=== PATIENT | female | born 1945 | race Two or more races ===

== ENCOUNTER 2025-01-12 20:44 | Inpatient (IN) | payer MEDICARE, MEDICAID ==
[~2025-01-12] VITALS: Ht 157.5 cm; Wt 71.5 kg
--- NOTE | 2025-01-12 21:28 | ED.PDOC ---
GI ASSESSMENT HPI Comments 80 year old female presents to the ED with a chief complaint of abdominal pain onset 4 days. Patient states she has been experiencing RLQ pain radiates to her back for the past 4 days as well as sweats, pain worsens after eating. Today, she noticed pain worsened, rates pain 9/10. PMHx HTN, DM. Denies nausea, vomiting, diarrhea, chest pain, shortness of breath, dizziness, headache, dysuria, hematuria, fever, chills. No other symptoms or modifying factors present at this time. Chief Complaint: Abdominal Pain Time Seen by MD: 21:20 Reviewed Notes: Medications, Allergies Allergies: Coded Allergies: NO KNOWN ALLERGIES (Unverified , 01/12/25) Information Source: Patient Mode of Arrival: Wheelchair Timing: Days Duration: Since onset Prehospital treatment: None Quality: Sharp Vomitus: None Severity: Moderate Recent: None Recent Hx of: None Pain Location: RLQ Modifying Factors: Nothing Associated sign and symptoms: Abdominal Pain Past Medical History PAST MEDICAL HISTORY: DM, HTN Surgical History: Denies all surgeries COOPERATIVE EXTENSION AGENT History: No Pertinent COOPERATIVE EXTENSION AGENT History Family History Family History: Reviewed,noncontributory to illness, No family hx of Cancer, No family hx of DM, No family hx of Heart annie, No family hx of HTN, No family hx ofKidney annie, No family hx of Liver annie, No family hx of Lung annie, No family hx of Stroke Social History Smoker: Non-Smoker Alcohol: Denies ETOH Use Drugs: Denies Drug Use Lives In: Home Constitutional: reports: sweats; denies: chills, diaphoresis, fatigue, fever, malaise, weakness, others EENTM: denies: blurred vision, double vision, ear bleeding, ear discharge, ear drainage, ear pain, ear ringing, eye pain, eye redness, hearing loss, mouth pain, mouth swelling, nasal discharge, nose bleeding, nose congestion, nose pain, photophobia, tearing, throat pain, throat swelling, voice changes, others Respiratory: denies: cough, hemoptysis, orthopnea, SOB at rest, shortness of breath, SOB with excertion, stridor, wheezing, others Cardiovascular: denies: chest pain, dizzy spells, diaphoresis, Dyspnea on exertion, edema, irregular heart beat, left arm pain, lightheadedness, palpitations, PND, syncope, others Gastrointestinal: reports: abdominal pain; denies: abdomen distended, blood streaked bowels, constipated, diarrhea, dysphagia, difficulty swallowing, hematemesis, melena, nausea, poor appetite, poor fluid intake, rectal bleeding, rectal pain, vomiting, others Genitourinary: denies: abnormal vagina bleeding, burning, dyspareunia, dysuria, flank pain, frequency, hematuria, incontinence, pain, , vagina discharge, urgency, others Neurological: denies: dizziness, fainting, headache, left sided numbness, left sided weakness, numbness, paresthesia, pre-existing deficit, right sided numbness, right sided weakness, seizure, speech problems, tingling, tremors, weakness, others Musculoskeletal: denies: back pain, gout, joint pain, joint swelling, muscle pain, muscle stiffness, neck pain, others Integumetry: denies: bruises, change in color, change in hair/nails, dryness, laceration, lesions, lumps, rash, wounds, others Allergic/Immunocompromised: denies: Difficulty Healing, Frequent Infections, Hives, Itching, others Hematologic/Lymphatic: denies: anemia, blood clots, easy bleeding, easy bruising, swollen glands, others Endocrine: denies: excessive hunger, excessive sweating, excessive thirst, excessive urination, flushing, intolerance to cold, intolerance to heat, unexplained weight gain, unexplained weight loss, others Psychiatric: denies: anxiety, bipolar disorder, depression, hopeless, panic disorder, schizophrenia, sleepless, suicidal, others All Other Systems: Reviewed and Negative Physical Exam General Appearance: Normal HEENT: Normal ENT Inspection, Pharynx Normal, TMs Normal Neck: Full Range of Motion, Non-Tender, Normal, Normal Inspection Respiratory: Chest Non-Tender, Lungs Clear, No Accessory Muscle Use, No Respiratory Distress, Normal Breath Sounds Cardiovascular: No Edema, No JVD, No Murmur, No Gallop, Normal Peripheral Pu lses, Regular Rate/Rhythm Breast Exam: Deferred Gastrointestinal: No Organomegaly, Non Tender, No Pulsatile Mass, Normal Bowel Sounds, Soft Genitalia: Deferred Pelvic: Deferred Rectal: Deferred Extremities: No calf tenderness, Normal capillary refill, Normal inspection, Normal range of motion, Non-tender, No pedal edema Musculoskeletal : Apperance: Normal Neurologic: Alert, sales estimator II-XII nml as Tested, No Motor Deficits, Normal Affect, Normal Mood, No Sensory Deficits Cerebellar Function: Normal Reflexes: Normal Skin: Dry, Normal Color, Warm Lymphatic: No Adenopathy Was a procedure done? Was a procedure done?: No GI differential Dx Differential Diagnosis: Appendicitis, Bowel Obstruction, Cholangitis, Cholecystitis, Constipation, Diverticular disease, Gastritis/PUD, UTI, Dehydration, Kidney Stone, Other X-Ray, Labs, Meds, VS Vital Signs Date Time Temp Pulse Resp B/P (MAP) Pulse Ox O2 Delivery O2 Flow Rate FiO2 01/12/25 20:46 98.1 95 20 99/51 97 98.1 Lab Test 01/12/25 21:30 Range/Units White Blood Count 7.1 4.4-10.8 10^3/uL Red Blood Count 3.64 L 4.0-5.20 10^6/uL Hemoglobin 10.9 L 12.2-16.2 g/dL Hematocrit 33.2 L 36.0-46.0 % Mean Corpuscular Volume 91.1 80.0-100.0 fL Mean Corpuscular Hemoglobin 29.8 28.0-32.0 pg Mean Corpuscular Hemoglobin Concent 32.7 32.0-36.0 g/dL Red Cell Distribution Width 15.4 H 11.8-14.3 % Platelet Count 167 140-450 10^3/uL Mean Platelet Volume 9.3 6.9-10.8 fL Neutrophils (%) (Auto) 37.0-80.0 % Lymphocytes (%) (Auto) 10.0-50.0 % Monocytes (%) (Auto) 0.0-12.0 % Basophils (%) (Auto) 0.0-2.0 % Neutrophils # (Auto) 1.6-8.6 10 ^3/uL Lymphocytes # (Auto) 0.4-5.4 10 ^3/uL Monocytes # (Auto) 0-1.3 10 ^3/uL Differential Total Cells Counted 100.0 100 Neutrophils % (Manual) 75 37.0-80.0 Band Neutrophils % (Manual) 13 Lymphocytes % (Manual) 4 L 10.0-50.0 Monocytes % (Manual) 8 0-12 Eosinophils % (Manual) 0 0-7 Basophils % (Manual) 0 0.0-2.0 Metamyelocytes % (manual) 0 Myelocytes % (Manual) 0 Promyelocytes % (Manual) 0 Blast Cells % (Manual) 0 Reactive Lymphocytes 0 Platelet Estimate Adequate Anisocytosis (manual) Slight Sodium Level 137 136-145 mmol/L Potassium Level 4.3 3.5-5.1 mmol/L Chloride Level 106 98-107 mmol/L Carbon Dioxide Level 17 L 20-31 mmol/L Anion Gap 14 5-15 Blood Urea Nitrogen 36 H 9-23 mg/dL Creatinine 2.11 H 0.550-1.02 mg/dL Glomerular Filtration Rate Calc 23 >90 mL/min BUN/Creatinine Ratio 17.1 10.0-20.0 Serum Glucose 181 H 74-106 mg/dL Calcium Level 9.4 8.7-10.4 mg/dL Total Bilirubin 0.6 0.2-1.0 mg/dL Aspartate Amino Transferase (AST) 18 13-40 U/L Alanine Aminotransferase (ALT) 19 7-40 U/L Alkaline Phosphatase 134 H 46-116 U/L Total Protein 6.1 5.7-8.2 g/dL Albumin 3.2 3.2-4.8 g/dL Lipase 21 12-53 U/L Time of 1ST Reevaluation: 21:50 Reevaluation 1ST: Unchanged Patient Education/Counseling: Diagnosis, Treatment, Prognosis Family Education/Counseling: Diagnosis, Treatment, Prognosis SEPSIS Sepsis Screen Date sepsis recognized/suspect: Jan 12, 2025 Time Sepsis recognized/suspect: 2045 Recent Procedure: No On Antibiotic Therapy: No Respiratory Rate >20: No Heart Rate >90: Yes Temp<36 C (96.8 F) or >38.3 C: No SBP <90 or MAP <65 mmHG: No New Acute Mental Status Change: No Is the patient on CPAP, BIPAP,: No Physician Orders Urinalysis (01/12/25 21:16) Ct Ab Pel Wo Con-No Oral Or Iv (01/12/25 21:16) Piperacillin-Tazob 3.375gm (Zosyn 3.375g (01/13/25 01:45) Vital Signs Date Time Temp Pulse Resp B/P (MAP) Pulse Ox O2 Delivery O2 Flow Rate FiO2 01/12/25 20:46 98.1 95 20 99/51 97 98.1 Laboratory Tests Test 01/12/25 21:30 White Blood Count 7.1 10^3/uL (4.4-10.8) Departure 1 Departure Time of Disposition: 01:42 Impression: Primary Impression: Intestinal perforation Additional Impression: Acute renal injury Disposition: 09 ADMITTED INPATIENT Admit to: ICU Condition: Critical Discharged With: Self Comments 80-year-old female with acute abdominal pain. Her lab results to shows white count is normal at 7. H&H are normal at 11 33. She has acute renal injury with BUN and creatinine elevated at [address] of the abdomen and pelvis shows: IMPRESSION: 1. Free intraperitoneal air likely from visceral perforation of a left abdominal small bowel loop. 2. Circumferential wall thickening of a left abdominal small bowel loop with more focal locules of gas adjacent to this thickened small bowel loop . 3. There may be sinus tracts or a fistulous network between adjacent small bowel loops in the left abdomen with image numbers above. 4. Mild ascites and diffuse soft tissue stranding of the mesentery 5. Healing anterior right 4th and 5th rib fractures. 6. Mild cardiomegaly. Critical Findings: Free intraperitoneal air and circumferential small-bowel wall thickening with adjacent focal gas locules suggest visceral perforation I called General surgery Dr. Granger immediately. I ordered IV fluids and IV Zosyn antibiotics. Patient will need admission for intestinal perforation and acute renal injury Critical Care Note Critical Care Time?: Yes (35 min-critical care time only) Critical care comment: Total critical care time: Approximately 36 minutes Due to a high probability of clinically significant, life threatening deterioration, the patient required my highest level of preparedness to intervene emergently and I personally spent this critical care time directly and personally managing the patient. This critical care time included obtaining a history; examining the patient; pulse oximetry; ordering and review of studies; arranging urgent treatment with development of a management plan; evaluation of patient's response to treatment; frequent reassessment; and, discussions with other providers. This critical care time was performed to assess and manage the high probability of imminent, life-threatening deterioration that could result in multi-organ failure. It was exclusive of separately billable procedures and treating other patients. Stability Stability form required: No Heart Score Heart Score: Heart Score Response (Comments) Value History N/A 0 EKG N/A 0 Age N/A 0 Risk Factors N/A 0 Troponin N/A 0 Total 0 I personally scribed for SABINA HOYOS MD ([email or web address]) on 01/12/25 at 21:28. Electronically submitted by Adela Sadler ([email or web address]). SABINA HOYOS MD Jan 12, 2025 21:28
[2025-01-12 21:56] LABS: Hematocrit 33.2 % (36.0-46.0); Hemoglobin 10.9 g/dL (12.2-16.2); Mean Corpuscular Hemoglobin 29.8 pg (28.0-32.0); Mean Corpuscular Volume 91.1 fL (80.0-100.0)
[2025-01-12 22:06] LABS: Alanine Aminotransferase 19 U/L (7-40); Anion Gap 14 (5-15); BUN/Creatinine Ratio 17.1 (10.0-20.0); Bilirubin, Total 0.6 mg/dL (0.2-1.0); Calcium 9.4 mg/dL (8.7-10.4); Chloride 106 mmol/L (98-107); Lipase 21 U/L (12-53); Potassium 4.3 mmol/L (3.5-5.1); Sodium 137 mmol/L (136-145); Total Protein 6.1 g/dL (5.7-8.2)
[2025-01-12 22:15] LABS: Albumin 3.2 g/dL (3.2-4.8); Alkaline Phosphatase 134 U/L (46-116); Blood Urea Nitrogen 36 mg/dL (9-23); Carbon Dioxide 17 mmol/L (20-31); Glucose 181 mg/dL (74-106)
[2025-01-12 22:40] LABS: Anisocytosis Slight; Total Cells Counted 100.0 (100)
[2025-01-13] VITALS (39 sets, daily range): BP systolic 89–166; BP diastolic 24–113; PULSE 97–130; RESP 14–23; TEMP 97–98; O2SAT 91–100
--- NOTE | 2025-01-13 01:16 | DVH ---
CLINICAL HISTORY: abd pain TECHNIQUE: CT of the abdomen and pelvis was performed without intravenous contrast. This exam was per formed according to our departmental dose optimization program. Up-to-date CT equipment and radiation dose reduction techniques are utilized as appropriate. 7.04 CTDI: 7.04 DLP: 106.97 WID: COMPARISON: None FINDINGS: Lower Thorax: There is a healing anterior right 4th and 5th rib fractures. Linear bibasilar atelectas is and/or scarring. Mild cardiomegaly. Liver and Biliary system: Grossly normal liver. Gallbladder is normal caliber. There is no biliary du ctal dilatation. Spleen: Unremarkable. Adrenal Glands and Kidneys: Normal adrenal glands. Slightly small bilateral kidneys. No hydronephrosi s or nephrolithiasis. Pancreas and Retroperitoneum: Mildly atrophic pancreas. There is no retroperitoneal lymphadenopathy. Aorta and Major Vessels: Aortoiliac vessels are normal in caliber with moderate calcified atheroscler otic plaque. Bowel, Mesentery and Peritoneal space: There is normal caliber small and large bowel. Normal appendix . There circumferential wall thickening of small-bowel loops in the left abdomen for example on serie s 601, image 42. There is free intraperitoneal air. There are more focal locules of gas within thicke bonita left abdominal small-bowel loop for example series 2, image 44. There may be sinus tracts or fist ulous network between a cluster of small bowel loops in the left abdomen for example series 2, images 39 and 44. There is diffuse soft tissue stranding throughout the mesentery and mild ascites. There i s no well-formed, drainable fluid collection at this time. Pelvis: The uterus is mildly atrophic. The urinary bladder is minimally distended. The ovaries are at rophic. There is no pelvic lymphadenopathy. Abdominal wall and Osseous Structures: Surgical clips in the right groin. Multilevel moderate lower t horacic and lumbar spondylosis. Grade 1 anterolisthesis at L4-L5. No destructive osseous lesion. IMPRESSION: 1. Free intraperitoneal air likely from visceral perforation of a left abdominal small bowel loop. 2. Circumferential wall thickening of a left abdominal small bowel loop with more focal locules of g as adjacent to this thickened small bowel loop . 3. There may be sinus tracts or a fistulous network between adjacent small bowel loops in the left ab domen with image numbers above. 4. Mild ascites and diffuse soft tissue stranding of the mesentery 5. Healing anterior right 4th and 5th rib fractures. 6. Mild cardiomegaly. Critical Findings: Free intraperitoneal air and circumferential small-bowel wall thickening with bing cent focal gas locules suggest visceral perforation Findings discussed with SABINA HOYOS at 01/13/2025, who acknowledged receipt and understanding of th e findings.
[2025-01-13] MEDS: ONDANSETRON HCL 4 MG/2 ML VIAL IV ONE (02:34)
[2025-01-13] MEDS: PIPERACILLIN-TAZOB 3.375GM 100 ML IV ONE (02:34)
[2025-01-13] MEDS: MORPHINE SULFATE 4 MG/ML SYR/VIAL IV ONE (02:35)
[2025-01-13] MEDS: SODIUM CHLORIDE 0.9% 1,000 ML IVB ONE (02:37)
[2025-01-13] MEDS ORDERED: NORT10CA PO (07:36)
[2025-01-13] MEDS ORDERED: LEVO50TA7 PO (07:36)
[2025-01-13] MEDS ORDERED: MET25T PO (07:36)
[2025-01-13] MEDS ORDERED: ACETAMINOPHEN 325 MG TAB PO PRN (07:45)
[2025-01-13] MEDS ORDERED: DEXTROSE (50%) 50ML SYRG IV PRN (07:45)
[2025-01-13] MEDS ORDERED: HYDROcodone-ACET 5/325MG TAB PO PRN (07:45)
--- NOTE | 2025-01-13 07:47 | DVHHP2 ---
History of Present Illness Reason for Visit: Abdominal pain History of Present Illness Katie Sosa is a 80-year-old female with past medical history of diabetes, hernia repair, and who presents to the ED with abdominal pain x4 days. Patient reports that the pain is currently between 8 - 9/10 sharp and constant. She reports the pain being all throughout her abdomen. She does state that pain medications makes it better. Patient's granddaughter Emilie at the bedside. Patient also endorses that she has not been taking her Eliquis for the last 2 weeks. Patient denies any recent travels, recent ingestion of spoiled food, recent sick contacts, chest pain, shortness of breath, fever, chills, lightheadedness, weakness, dizziness, nausea, vomiting, diarrhea, or urinary symptoms. Patient endorses that she fell on her left side on January 06, 2025. Upon examination patient is noted to be on 2 L nasal cannula also with right NG tube to low intermittent suction. Patient endorses that she does not use home oxygen. Endocrine: Diabetes Past Surgical History: , Hernia Repair Family History: Arthritis, Other (Mom with arthritis) Smoke: No ALCOHOL: none Drugs: None Lives: with Family Domestic Violence: Neg Review of Systems Gastrointestinal: Abdominal Pain Allergies: Coded Allergies: NO KNOWN ALLERGIES (Unverified , 01/12/25) Exam Vital Signs Vital Signs Date Time Temp Pulse Resp B/P (MAP) Pulse Ox O2 Delivery O2 Flow Rate FiO2 01/13/25 05:03 98 10 116/50 01/13/25 04:10 94 Room Air* 0 21 01/13/25 02:32 98.0 98.0 General Appearance: Alert, Oriented X3, Cooperative, No acute distress HEENT: Atraumatic, PERRLA, EOMI, Mucous membr. moist/pink Respiratory: Normal air movement Cardiovascular: Normal S1, Normal S2 Abdominal: Soft Extremities: No clubbing, No cyanosis, No edema, Normal pulses Skin: No significant lesion Neuro: Normal speech, Strength at 5/5 X4 ext, Normal tone, Sensation intact Psych/Mental Status: Mental status NL, Mood NL Labs/Xrays Labs Test 01/12/25 21:30 Range/Units White Blood Count 7.1 4.4-10.8 10^3/uL Red Blood Count 3.64 L 4.0-5.20 10^6/uL Hemoglobin 10.9 L 12.2-16.2 g/dL Hematocrit 33.2 L 36.0-46.0 % Mean Corpuscular Volume 91.1 80.0-100.0 fL Mean Corpuscular Hemoglobin 29.8 28.0-32.0 pg Mean Corpuscular Hemoglobin Concent 32.7 32.0-36.0 g/dL Red Cell Distribution Width 15.4 H 11.8-14.3 % Platelet Count 167 140-450 10^3/uL Mean Platelet Volume 9.3 6.9-10.8 fL Neutrophils (%) (Auto) 37.0-80.0 % Lymphocytes (%) (Auto) 10.0-50.0 % Monocytes (%) (Auto) 0.0-12.0 % Basophils (%) (Auto) 0.0-2.0 % Neutrophils # (Auto) 1.6-8.6 10 ^3/uL Lymphocytes # (Auto) 0.4-5.4 10 ^3/uL Monocytes # (Auto) 0-1.3 10 ^3/uL Differential Total Cells Counted 100.0 100 Neutrophils % (Manual) 75 37.0-80.0 Band Neutrophils % (Manual) 13 Lymphocytes % (Manual) 4 L 10.0-50.0 Monocytes % (Manual) 8 0-12 Eosinophils % (Manual) 0 0-7 Basophils % (Manual) 0 0.0-2.0 Metamyelocytes % (manual) 0 Myelocytes % (Manual) 0 Promyelocytes % (Manual) 0 Blast Cells % (Manual) 0 Reactive Lymphocytes 0 Platelet Estimate Adequate Anisocytosis (manual) Slight Sodium Level 137 136-145 mmol/L Potassium Level 4.3 3.5-5.1 mmol/L Chloride Level 106 98-107 mmol/L Carbon Dioxide Level 17 L 20-31 mmol/L Anion Gap 14 5-15 Blood Urea Nitrogen 36 H 9-23 mg/dL Creatinine 2.11 H 0.550-1.02 mg/dL Glomerular Filtration Rate Calc 23 >90 mL/min BUN/Creatinine Ratio 17.1 10.0-20.0 Serum Glucose 181 H 74-106 mg/dL Calcium Level 9.4 8.7-10.4 mg/dL Total Bilirubin 0.6 0.2-1.0 mg/dL Aspartate Amino Transferase (AST) 18 13-40 U/L Alanine Aminotransferase (ALT) 19 7-40 U/L Alkaline Phosphatase 134 H 46-116 U/L Total Protein 6.1 5.7-8.2 g/dL Albumin 3.2 3.2-4.8 g/dL Lipase 21 12-53 U/L CLINICAL HISTORY: abd pain TECHNIQUE: CT of the abdomen and pelvis was performed without intravenous contrast. This exam was performed according to our departmental dose optimization program. Up-to-date CT equipment and radiation dose reduction techniques are utilized as appropriate. 7.04 CTDI: 7.04 DLP: 106.97 WID: COMPARISON: None FINDINGS: Lower Thorax: There is a healing anterior right 4th and 5th rib fractures. Linear bibasilar atelectasis and/or scarring. Mild cardiomegaly. Liver and Biliary system: Grossly normal liver. Gallbladder is normal caliber. There is no biliary ductal dilatation. Spleen: Unremarkable. Adrenal Glands and Kidneys: Normal adrenal glands. Slightly small bilateral kidneys. No hydronephrosis or nephrolithiasis. Pancreas and Retroperitoneum: Mildly atrophic pancreas. There is no retroperitoneal lymphadenopathy. Aorta and Major Vessels: Aortoiliac vessels are normal in caliber with moderate calcified atherosclerotic plaque. Bowel, Mesentery and Peritoneal space: There is normal caliber small and large bowel. Normal appendix. There circumferential wall thickening of small-bowel loops in the left abdomen for example on series 601, image 42. There is free intraperitoneal air. There are more focal locules of gas within thickened left abdominal small-bowel loop for example series 2, image 44. There may be sinus tracts or fistulous network between a cluster of small bowel loops in the left abdomen for example series 2, images 39 and 44. There is diffuse soft tissue stranding throughout the mesentery and mild ascites. There is no well-formed, drainable fluid collection at this time. Pelvis: The uterus is mildly atrophic. The urinary bladder is minimally distended. The ovaries are atrophic. There is no pelvic lymphadenopathy. Abdominal wall and Osseous Structures: Surgical clips in the right groin. Multilevel moderate lower thoracic and lumbar spondylosis. Grade 1 anterolisthesis at L4-L5. No destructive osseous lesion. IMPRESSION: 1. Free intraperitoneal air likely from visceral perforation of a left abdominal small bowel loop. 2. Circumferential wall thickening of a left abdominal small bowel loop with more focal locules of gas adjacent to this thickened small bowel loop . 3. There may be sinus tracts or a fistulous network between adjacent small bowel loops in the left abdomen with image numbers above. 4. Mild ascites and diffuse soft tissue stranding of the mesentery 5. Healing anterior right 4th and 5th rib fractures. 6. Mild cardiomegaly. SEPSIS Sepsis Screen Date sepsis recognized/suspect: Jan 13, 2025 Time Sepsis recognized/suspect: 05 Recent Procedure: No On Antibiotic Therapy: No Respiratory Rate >20: No Heart Rate >90: No Temp<36 C (96.8 F) or >38.3 C: No SBP <90 or MAP <65 mmHG: No New Acute Mental Status Change: No Is the patient on CPAP, BIPAP,: No Physician Orders * Surgical Consult (01/13/25 ) Vital Signs Date Time Temp Pulse Resp B/P (MAP) Pulse Ox O2 Delivery O2 Flow Rate FiO2 01/13/25 05:03 98 10 116/50 01/13/25 04:10 99 21 94 Room Air* 0 21 01/13/25 04:00 89 22 105/48 (67) 94 01/13/25 02:35 94 18 108/42 01/13/25 02:32 98.0 84 26 108/42 (64) 95 98.0 Laboratory Tests Test 01/12/25 21:30 White Blood Count 7.1 10^3/uL (4.4-10.8) Medications Medications Dose Ordered Sig/Isaura Route Start Time Stop Time Status Last Admin Dose Admin Morphine Sulfate 4 mg ONCE ONCE IV 01/12/25 21:30 01/12/25 21:31 DC 01/13/25 02:35 4 MG Ondansetron HCl 4 mg ONCE ONCE IV 01/12/25 21:30 01/12/25 21:31 DC 01/13/25 02:34 4 MG Piperacillin Sod/ Tazobactam Sod 100 ml @ 100 mls/hr ONCE ONCE IV 01/13/25 01:45 01/13/25 02:44 DC 01/13/25 02:34 100 MLS/HR Sodium Chloride 1,000 ml @ 1,000 mls/hr Q1H ONCE IVB 01/12/25 21:30 01/12/25 22:29 DC 01/13/25 02:37 1,000 MLS/HR Assessment/Plan Assessment/Plan Assessment Intractable abdominal pain likely due to perforated bowel [place] likely due to ATN Mild ascites Healing anterior right 4th and 5th rib fractures likely due to status post fall on 01/06/25 Mild cardiomegaly Normocytic anemia Hyperglycemia Acute hypoxic respiratory failure History of diabetes type 2 History of hernia repair History of Plan Admit to med surge IV antibiotics-Zosyn Pain management Antiemetics CT abdomen and pelvis noted Hemoglobin A1c ISS and Accu-Cheks UA NS 1 L given in ED Manual differential Lipase Chest x-ray KUB Supplementary O2 NPO IV fluids Home medications reconciled DVT prophylaxis-SCDs PUD prophylaxis-PPIs Discussed plan of care with patient, patient's granddaughter, and nurse General surgery consult Nephro consult [id number] Preventive counseling healthy eating habits, physical activity, and regular checkups Plan discussed with: Patient, Other (GRANDDAUGHTER) Date of Service: Jan 13, 2025 Billing Provider: SAGE SHAH Common Visit Codes: [id number] INP/OBS CARE (HIGH) Secondary Visit Codes: [id number] COUNSELING IND SAGE SHAH Jan 13, 2025 07:47
[2025-01-13] MEDS: LEVOTHYROXINE SODIUM 50 MCG TAB PO SCH (08:22)
[2025-01-13] MEDS: SODIUM CHLORIDE 0.9% 1,000 ML IV SCH ×2 (08:45→09:01)
[2025-01-13] MEDS: METOPROLOL TARTRATE 25 MG TAB PO SCH (08:48)
[2025-01-13] MEDS: ONDANSETRON HCL 4 MG/2 ML VIAL IV PRN (08:51)
[2025-01-13] MEDS: MORPHINE SULFATE INJ 2 MG/ml SYRG IV PRN (08:52)
[2025-01-13 09:11] LABS: Chloride 107 mmol/L (98-107); Sodium 140 mmol/L (136-145)
[2025-01-13 09:12] LABS: Anion Gap 16 (5-15); Carbon Dioxide 17 mmol/L (20-31); Potassium 5.5 mmol/L (3.5-5.1)
[2025-01-13 09:13] LABS: Calcium 9.0 mg/dL (8.7-10.4)
[2025-01-13 09:17] LABS: BUN/Creatinine Ratio 18.3 (10.0-20.0); INR 1.2 (0.9-1.15); Partial Thromboplastin Time 27.9 SEC (24.5-34.5); Prothrombin Time 12.5 sec (9.3-11.8)
[2025-01-13 09:19] LABS: Blood Urea Nitrogen 44 mg/dL (9-23); Glucose 123 mg/dL (74-106)
[2025-01-13] MEDS: PANTOPRAZOLE 40 MG/10 ML VIAL INJ IV SCH (10:00)
[2025-01-13] MEDS ORDERED: PIPERACILLIN-TAZOB 3.375GM 100 ML IV SCH (10:00)
[2025-01-13] MEDS: POVIDONE IODINE 10 % TOPICAL OINT 30GM TOP ONE (10:11)
--- NOTE | 2025-01-13 10:27 | DVH ---
Date: 01/13/2025 08:12 AM Examination: XY KUB ABDOMEN SINGLE VIEW History: ABDOMINAL PAIN; NG TUBE PLACEMENT Comparison: None TECHNIQUE: Frontal views of the abdomen was obtained. FINDINGS: Bowel gas pattern is unremarkable. The lung bases are unremarkable. No acute osseous abnormality identified. IMPRESSION: Nonobstructive bowel gas pattern. Nasogastric tube tip in the stomach. Large stool burden.
[2025-01-13] MEDS ORDERED: MIDAZOLAM HCL 2MG/2ML 2ml VIAL (1mg/ml) ONE ×2 (11:07→12:38)
[2025-01-13] MEDS ORDERED: fentaNYL CITRATE 100 MCG/2 ML VL ONE (11:07)
[2025-01-13] MEDS ORDERED: HYDROmorphone HCL 2 MG/ML VL/or syr ONE (11:08)
[2025-01-13] MEDS: SODIUM BICARB 8.4% 50Meq/50ml SYR Vial IV ONE ×2 (11:30→23:10)
[2025-01-13] MEDS: ceFAZolin 2 GM/D5W50ml 50 ML IV ONE (11:30)
--- NOTE | 2025-01-13 11:30 | DVHINCON2 ---
Date of service: Jan 13, 2025 Referring Physician hospitalist Reason for Consultation ISRRAEL History of Present Illness 80-year-old speaking female with past medical history of 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, hypertension, atrial fibrillation reports last took Eliquis two weeks ago presents to the hospital complaining of severe abdominal pain. Patient is found to have abdominal perforation. Nephrology consulted due to elevated creatinine level. Patient is status post NG tube placement which shows dark red blood on continuous suctioning Allergies: Coded Allergies: NO KNOWN ALLERGIES (Unverified , 01/12/25) Home Meds Reported Medications Metoprolol Tartrate (Lopressor) 25 Mg Tb, 1 TAB PO BID 01/13/25 Levothyroxine Sodium (Levothyroxine Sodium) 50 Mcg Tab, 1 TAB PO QAM 01/13/25 Nortriptyline HCl (Nortriptyline Hydrochlori) 10 Mg Cap, 2 CAP PO 01/13/25 Current Medications Current Medications Medications (Trade) Dose Ordered Sig/Isaura Route PRN Reason Start Time Stop Time Status Last Admin Levothyroxine Sodium (Synthroid Tablet) 50 mcg QAM PO 01/14/25 07:00 Metoprolol Tartrate (Lopressor Tablet) 25 mg BID PO 01/13/25 10:00 Nortriptyline HCl (Pamelor) 20 mg HS PO 01/13/25 22:00 Piperacillin Sod/ Tazobactam Sod 100 ml @ 25 mls/hr Q12HR IV 01/13/25 10:00 Sodium Chloride 1,000 ml @ 60 mls/hr [id number] IV 01/13/25 07:45 Hold 01/13/25 09:01 Acetaminophen/ Hydrocodone Bitart ([place] 5/325MG Tab) 1 tab Q4HP PRN PO MODERATE PAIN (4-6 PAIN SCALE) 01/13/25 07:45 Ondansetron HCl (Zofran) 4 mg Q4HP PRN IV NAUSEA / VOMITING 01/13/25 07:45 01/13/25 08:51 Acetaminophen (Tylenol Tablet) 650 mg Q6HP PRN PO PAIN SCALE 1-3 OR TEMP>100.4 01/13/25 07:45 Morphine Sulfate 2 mg Q4HPRN PRN IV SEVERE PAIN (7-10 PAIN SCALE) 01/13/25 07:45 01/13/25 08:52 Diagnostic Test (Pha) (Accu-Chek Comfort Curve T) 1 strip Q6HR 01/13/25 12:00 Insulin Human Regular (InsuLIN R) Q6HR SC 01/13/25 12:00 Dextrose 50 ml UD PRN IV Blood Sugar LESS THAN 60 01/13/25 07:45 Pantoprazole Sodium (Protonix) 40 mg DAILY IV 01/13/25 10:00 Sodium Chloride 1,000 ml @ 75 mls/hr [id number] IV 01/13/25 08:45 Review of Systems Abdominal pain H&P Exam Vital Signs/I&O Vital Sign Date Time Temp Pulse Resp B/P (MAP) Pulse Ox O2 Delivery O2 Flow Rate FiO2 01/13/25 10:00 106 24 129/77 (94) 96 01/13/25 08:17 Nasal Cannula* 3 32 01/13/25 02:32 98.0 98.0 Intake and Output 01/12/25 01/13/25 19:00 07:00 Intake Total 1100 ml Balance 1100 ml Intake IV Total 1100 ml Physical Exam Elderly female in mild pain due to stomach discomfort NG tube showing dark red blood Irregular rate and rhythm No pitting edema Labs/Diagnostic Data Labs/Diagnostic Data Laboratory Tests Test 01/13/25 07:59 01/12/25 21:30 Range/Units Prothrombin Time 12.5 H 9.3-11.8 sec Prothrombin Time INR 1.20 H 0.9-1.15 Activated Partial Thromboplast Time 27.9 24.5-34.5 SEC Sodium Level 140 137 136-145 mmol/L Potassium Level 5.5 H 4.3 3.5-5.1 mmol/L Chloride Level 107 106 98-107 mmol/L Carbon Dioxide Level 17 L 17 L 20-31 mmol/L Anion Gap 16 H 14 5-15 Blood Urea Nitrogen 44 H 36 H 9-23 mg/dL Creatinine 2.40 H 2.11 H 0.550-1.02 mg/dL Glomerular Filtration Rate Calc 20 23 >90 mL/min BUN/Creatinine Ratio 18.3 17.1 10.0-20.0 Serum Glucose 123 H 181 H 74-106 mg/dL Hemoglobin A1c 8.2 H <5.7 % A1C Calcium Level 9.0 9.4 8.7-10.4 mg/dL White Blood Count 7.1 4.4-10.8 10^3/uL Red Blood Count 3.64 L 4.0-5.20 10^6/uL Hemoglobin 10.9 L 12.2-16.2 g/dL Hematocrit 33.2 L 36.0-46.0 % Mean Corpuscular Volume 91.1 80.0-100.0 fL Mean Corpuscular Hemoglobin 29.8 28.0-32.0 pg Mean Corpuscular Hemoglobin Concent 32.7 32.0-36.0 g/dL Red Cell Distribution Width 15.4 H 11.8-14.3 % Platelet Count 167 140-450 10^3/uL Mean Platelet Volume 9.3 6.9-10.8 fL Neutrophils (%) (Auto) 37.0-80.0 % Lymphocytes (%) (Auto) 10.0-50.0 % Monocytes (%) (Auto) 0.0-12.0 % Basophils (%) (Auto) 0.0-2.0 % Neutrophils # (Auto) 1.6-8.6 10 ^3/uL Lymphocytes # (Auto) 0.4-5.4 10 ^3/uL Monocytes # (Auto) 0-1.3 10 ^3/uL Differential Total Cells Counted 100.0 100 Neutrophils % (Manual) 75 37.0-80.0 Band Neutrophils % (Manual) 13 Lymphocytes % (Manual) 4 L 10.0-50.0 Monocytes % (Manual) 8 0-12 Eosinophils % (Manual) 0 0-7 Basophils % (Manual) 0 0.0-2.0 Metamyelocytes % (manual) 0 Myelocytes % (Manual) 0 Promyelocytes % (Manual) 0 Blast Cells % (Manual) 0 Reactive Lymphocytes 0 Platelet Estimate Adequate Anisocytosis (manual) Slight Total Bilirubin 0.6 0.2-1.0 mg/dL Aspartate Amino Transferase (AST) 18 13-40 U/L Alanine Aminotransferase (ALT) 19 7-40 U/L Alkaline Phosphatase 134 H 46-116 U/L Total Protein 6.1 5.7-8.2 g/dL Albumin 3.2 3.2-4.8 g/dL Lipase 21 12-53 U/L Assessment 80-year-old female presents to the hospital complaining of abdominal pain is diagnosed with abdominal perforation Acute kidney injury hemodynamically mediated Chronic kidney disease unspecified baseline unknown Acute perforation of the abdomen History of atrial fibrillation previously on anticoagulation 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 workup unclear IV fluid hydration Sodium bicarbonate IV push Surgical evaluation noted patient has NG tube in his plan for probable exploratory surgery today Recommend Perez catheter placement strict Is&Os and monitoring urinary output seriologies for autoimmune hx No emergent indication for dialysis at this time Patient currently NPO monitor fluid and electrolytes Rest of care as per primary medical team Care time spent 55 minutes Plan discussed with: Patient PATRICK RAMOS MD Jan 13, 2025 11:30
[2025-01-13] MEDS: InsuLIN REG 1unit/0.01ml Soln (100units/ml) SC SCH (12:00)
[2025-01-13] MEDS: LIDOCAINE W/ EPINEPHRINE 1% 20ML VIAL ONE (12:32)
[2025-01-13] MEDS: BUPIVACAINE 0.5% P/F INJ 10 ML VIAL ONE (12:32)
[2025-01-13] MEDS ORDERED: D5W/SOD CHL 0.45%/KCL 20MEQ 1,000 ML IV SCH (12:45)
[2025-01-13] MEDS: HYDROmorphone HCL 2 MG/ML VL/or syr IV ONE (12:45)
[2025-01-13] MEDS ORDERED: MORPHINE SULFATE INJ 2 MG/ml SYRG IV PRN (12:45)
--- NOTE | 2025-01-13 13:18 | DVHINCON2 ---
Date Seen: Jan 13, 2025 Referring Physician MD Westley Reason for Consultation Afib with hypotension History of Present Illness This is a Setswana-speaking 80-year-old female who presents to the emergency room with chief complaint of abdominal pain for four days prior to emergency room arrival. At the time of assessment, the patient is chemically sedated and mechanically ventilated. Imaging during this admission revealed free intraperitoneal air likely from visceral perforation. The patient was urgently taken to the operating room where she underwent an exploratory laparotomy for a perforated bowel. Postprocedure, the patient was noted to become tachycardic. Cardiology was consulted for further evaluation. At the time of assessment, a twelve lead electrocardiogram was obtained from the PACU nurse and reveals sinus tachycardia. Patient noted to have intermittent periods of atrial fibrillation on pvc monitor. History obtained from patient's son Chris (via telephone). Significant past medical history includes atrial fibrillation (on Eliquis at home), thyroid disease, type 2 diabetes mellitus, and obesity. Past Medical History Past medical history reviewed. No other significant than mentioned above. Past Surgical History Unable to obtain Family History Family history reviewed. Social History Denies the use of tobacco, alcohol or illicit drugs. Allergies: Coded Allergies: NO KNOWN ALLERGIES (Unverified , 01/12/25) Home Meds Reported Medications Metoprolol Tartrate (Lopressor) 25 Mg Tb, 1 TAB PO BID 01/13/25 Levothyroxine Sodium (Levothyroxine Sodium) 50 Mcg Tab, 1 TAB PO QAM 01/13/25 Nortriptyline HCl (Nortriptyline Hydrochlori) 10 Mg Cap, 2 CAP PO 01/13/25 Home Meds Home medications reviewed. Current Medications Current Medications Medications (Trade) Dose Ordered Sig/Isaura Route PRN Reason Start Time Stop Time Status Last Admin Levothyroxine Sodium (Synthroid Tablet) 50 mcg QAM PO 01/14/25 07:00 Metoprolol Tartrate (Lopressor Tablet) 25 mg BID PO 01/13/25 10:00 Nortriptyline HCl (Pamelor) 20 mg HS PO 01/13/25 22:00 Piperacillin Sod/ Tazobactam Sod 100 ml @ 25 mls/hr Q12HR IV 01/13/25 10:00 Sodium Chloride 1,000 ml @ 60 mls/hr [id number] IV 01/13/25 07:45 Hold 01/13/25 09:01 Acetaminophen/ Hydrocodone Bitart ([place] 5/325MG Tab) 1 tab Q4HP PRN PO MODERATE PAIN (4-6 PAIN SCALE) 01/13/25 07:45 Ondansetron HCl (Zofran) 4 mg Q4HP PRN IV NAUSEA / VOMITING 01/13/25 07:45 01/13/25 08:51 Acetaminophen (Tylenol Tablet) 650 mg Q6HP PRN PO PAIN SCALE 1-3 OR TEMP>100.4 01/13/25 07:45 Morphine Sulfate 2 mg Q4HPRN PRN IV SEVERE PAIN (7-10 PAIN SCALE) 01/13/25 07:45 01/13/25 13:11 DC 01/13/25 08:52 Diagnostic Test (Pha) (Accu-Chek Comfort Curve T) 1 strip Q6HR 01/13/25 12:00 Insulin Human Regular (InsuLIN R) Q6HR SC 01/13/25 12:00 Dextrose 50 ml UD PRN IV Blood Sugar LESS THAN 60 01/13/25 07:45 Pantoprazole Sodium (Protonix) 40 mg DAILY IV 01/13/25 10:00 Sodium Chloride 1,000 ml @ 75 mls/hr [id number] IV 01/13/25 08:45 Potassium Chloride/Dextrose/ Sod Cl 1,000 ml @ 120 mls/hr Q8H20M IV 01/13/25 12:45 UNV Cefazolin Sodium 50 ml @ 100 mls/hr Q8HR IV 01/13/25 14:00 UNV Metronidazole 100 ml @ 100 mls/hr Q8HR IV 01/13/25 14:00 Morphine Sulfate 2 mg Q4HPRN PRN IV SEVERE PAIN (7-10 PAIN SCALE) 01/13/25 12:45 Review of Systems Constitutional: No symptom reported Ears, Nose, & Throat: No symptom reported Eyes: No symptom reported Neurological: No symptoms reported Pulmonary/Respiratory: No symptoms reported Cardiovascular: No symptom reported Gastrointestinal: Abdominal pain Genitourinary: No symptom reported Musculoskeletal: No symptom reported Skin: No symptom reported Psychiatric: No symptom reported Endocrine: No symptom reported Hematologic/Lymphatic: No symptom reported Vital Signs Vital Signs Date Time Temp Pulse Resp B/P (MAP) Pulse Ox O2 Delivery O2 Flow Rate FiO2 01/13/25 10:00 106 24 129/77 (94) 96 01/13/25 08:17 Nasal Cannula* 3 32 01/13/25 02:32 98.0 98.0 Physical Exam General Appearance: Calm, relaxed. Pulmonary/Respiratory: Clear, bilateral breaths sounds. Mechanically ventilated Cardiovascular/Chest: Regular rate and rhythm. Peripheral Pulses: 2+ Radial (R). 2+ Radial (L). 2+ Pedal (R). 2+ Pedal (L) Abdominal Exam: Normal bowel sounds. Ankle Exam: Negative ankle edema Lower extremities: Negative lower extremity edema Neuro/Mental Status: Chemically sedated Thoughts/Psych: Deferred Appearance: No acute distress. Skin Exam: Normal inspection. Normal color. Warm and dry. Labs/Diagnostic Data Labs Test 01/13/25 07:59 01/12/25 21:30 Range/Units Prothrombin Time 12.5 H 9.3-11.8 sec Prothrombin Time INR 1.20 H 0.9-1.15 Activated Partial Thromboplast Time 27.9 24.5-34.5 SEC Sodium Level 140 136-145 mmol/L Potassium Level 5.5 H 3.5-5.1 mmol/L Chloride Level 107 98-107 mmol/L Carbon Dioxide Level 17 L 20-31 mmol/L Anion Gap 16 H 5-15 Blood Urea Nitrogen 44 H 9-23 mg/dL Creatinine 2.40 H 0.550-1.02 mg/dL Glomerular Filtration Rate Calc 20 >90 mL/min BUN/Creatinine Ratio 18.3 10.0-20.0 Serum Glucose 123 H 74-106 mg/dL Hemoglobin A1c 8.2 H <5.7 % A1C Calcium Level 9.0 8.7-10.4 mg/dL White Blood Count 7.1 4.4-10.8 10^3/uL Red Blood Count 3.64 L 4.0-5.20 10^6/uL Hemoglobin 10.9 L 12.2-16.2 g/dL Hematocrit 33.2 L 36.0-46.0 % Mean Corpuscular Volume 91.1 80.0-100.0 fL Mean Corpuscular Hemoglobin 29.8 28.0-32.0 pg Mean Corpuscular Hemoglobin Concent 32.7 32.0-36.0 g/dL Red Cell Distribution Width 15.4 H 11.8-14.3 % Platelet Count 167 140-450 10^3/uL Mean Platelet Volume 9.3 6.9-10.8 fL Neutrophils (%) (Auto) 37.0-80.0 % Lymphocytes (%) (Auto) 10.0-50.0 % Monocytes (%) (Auto) 0.0-12.0 % Basophils (%) (Auto) 0.0-2.0 % Neutrophils # (Auto) 1.6-8.6 10 ^3/uL Lymphocytes # (Auto) 0.4-5.4 10 ^3/uL Monocytes # (Auto) 0-1.3 10 ^3/uL Differential Total Cells Counted 100.0 100 Neutrophils % (Manual) 75 37.0-80.0 Band Neutrophils % (Manual) 13 Lymphocytes % (Manual) 4 L 10.0-50.0 Monocytes % (Manual) 8 0-12 Eosinophils % (Manual) 0 0-7 Basophils % (Manual) 0 0.0-2.0 Metamyelocytes % (manual) 0 Myelocytes % (Manual) 0 Promyelocytes % (Manual) 0 Blast Cells % (Manual) 0 Reactive Lymphocytes 0 Platelet Estimate Adequate Anisocytosis (manual) Slight Total Bilirubin 0.6 0.2-1.0 mg/dL Aspartate Amino Transferase (AST) 18 13-40 U/L Alanine Aminotransferase (ALT) 19 7-40 U/L Alkaline Phosphatase 134 H 46-116 U/L Total Protein 6.1 5.7-8.2 g/dL Albumin 3.2 3.2-4.8 g/dL Lipase 21 12-53 U/L Assessment Paroxysmal atrial fibrillation, Stage 3A (on low-dose Eliquis) Septic shock Rule out structural heart disease Acute peritonitis with perforated bowel status post exploratory laparotomy Hypertriglyceridemia, newly diagnosed Acute kidney injury Thyroid disease Type 2 diabetes mellitus, uncontrolled (Hgb A1c 8.2%) Obesity Plan/Recommendation We will continue with the following plan/recommendations (Dr. Ann): Case discussed with . Patient went into atrial fibrillation with a rapid ventricular response during procedure (per anesthesiologist). The patient has a known history of atrial fibrillation and takes low-dose Eliquis at home. Postprocedure, a twelve lead electrocardiogram revealed sinus tachycardia. The patient was given fluid boluses per Anesthesiology. We will order CBC, BMP, Mag, and TSH levels. [id number] VASc score: 5 points, HAS-BLED score: 1 point. Initiate therapeutic Lovenox (renal dose) while inpatient in transition to DOAC prior to discharge. Patient currently on vasopressor therapy for hemodynamic support, unable to initiate beta-sarabjit for rate control. Consider antiarrhythmic agent such as amiodarone if patient goes back into atrial fibrillation. The patient currently in sinus tachycardia on pvc monitor. We will proceed with obtaining a transthoracic echocardiogram to evaluate cardiac function. Continue with close cardiac surveillance and notify cardiology team immediately for any ECG changes. Thank you for allowing us to care for this patient. Please call with any questions or concerns. Critical care time spent: 44 minutes This medical document was created using an electronic medical record system with voice recognition software and computerized dictation system. Although this document has been carefully reviewed, there might still be some phonetic and typographical errors. Occasional wrong-word or ``sound-alike substitutions may have occurred due to the inherent limitations of voice recognition software. These areas are purely typographical due to imperfections of the software programs and do not reflect any compromise in the patient's medical care. Please read the chart carefully and recognize, using context, where these substitutions have occurred. Plan discussed with: Other (Bedside RN) NYHA Physical activity limitations: NA Date of Service: Jan 13, 2025 Billing Provider: JOSIAH GAGNON Cardiology Common Codes: 88675-NGBRPFM INP/OBS CARE (High) Cardiology Consultation Codes: 83232-ELWFYXVHQ CONSULT <45MIN JOSIAH GAGNON Jan 13, 2025 13:18
--- NOTE | 2025-01-13 13:24 | DVHOP ---
DATE OF SURGERY: 01/13/2025 PREOPERATIVE DIAGNOSIS: Perforated bowel. POSTOPERATIVE DIAGNOSES: Peritonitis, perforated bowel, adhesions. SURGEON: Christian Christy MD STOCK PULLER: Jean Claude Preciado. ANESTHESIA: General endotracheal. ANESTHESIOLOGIST: Dr. Marquez. PROCEDURES: Exploratory laparotomy, lysis of adhesions, extensive lavage, resection of perforated small bowel, enteroenterostomy. DESCRIPTION OF PROCEDURE: Under general endotracheal anesthesia with the patient's skin prepped and draped, a midline incision was made and the abdomen was visually and manually explored. The exploration revealed multiple loops of dilated small bowel which was ischemic appearing which was covered with fibrinous exudate and densely adherent to the abdominal wall and each other. Lysis of adhesions was accomplished. In the mid portion of the small bowel, there was an induration surrounding the mesentery and the mesenteric border of the small bowel, which appeared to be perforated. The perforated bowel was resected by means of MAGGY staplers and the division of the mesentery between clamps and ligature of the pedicles. Subsequently, an enteroenterostomy, which was done with the use of a stapler as well, was accomplished. It was tested for patency and water tightness, both of which were proven by palpation and visual inspection. The mesenteric defect was approximated using 2-0 Monocryl suture. Subsequently, the abdomen was lavaged with 10 liters of warm saline, which was aspirated. Two Mendel-Steele drains were placed into the peritoneal cavity, one into the upper abdomen and one into the lower abdomen. They were exteriorized separately and secured with 2-0 nylon suture. Following assurance of accurate needle and sponge count and no evidence of any ongoing bleeding, the abdomen was closed using #1 double-stranded PDS suture and metallic skin lilly. The patient remained relatively stable throughout the procedure and left the operating room following an accurate needle and sponge count. Her son, Chris, was thoroughly informed in the waiting room. MD CANDI Langley/ZEFERINO TID: [id number] RECEIPT: [id number]
[2025-01-13] MEDS: fentaNYL Drip 2500mCg/250mlNS 250 ML IV SCH (13:30)
[2025-01-13] MEDS: MIDAZOLAM DRIP 50 mg/50mL 50 ML IV ONE (13:44)
[2025-01-13 13:48] LABS: Hematocrit 36.1 % (36.0-46.0); Hemoglobin 11.6 g/dL (12.2-16.2); Mean Corpuscular Hemoglobin 29.1 pg (28.0-32.0); Mean Corpuscular Volume 91.1 fL (80.0-100.0)
[2025-01-13] MEDS ORDERED: ceFAZolin 1GM/50ML 50 ML IV ONE (14:00)
[2025-01-13] MEDS ORDERED: ceFAZolin 1GM/50ML 50 ML IV SCH ×2 (14:00→22:00)
[2025-01-13 14:02] LABS: Triglycerides 210.0 mg/dL (< 150)
--- NOTE | 2025-01-13 14:02 | DVH ---
INDICATION: intub TECHNIQUE: Frontal view of the chest. COMPARISON: None FINDINGS: ET tube 6 mm from the vijay. Retract by 3 cm. Cardiomegaly. There is no evidence of pleural disease . The lungs are clear. The bony structures of the chest are intact without fracture. Nasogastric t ube tip in the stomach IMPRESSION: 1. ET tube 6 mm from the vijay. Retract by 3 cm. Cardiomegaly with CHF.
[2025-01-13 14:03] LABS: Magnesium 2.1 mg/dL (1.6-2.6)
[2025-01-13 14:04] LABS: Cholesterol 81.0 mg/dL (< 200)
[2025-01-13 14:06] LABS: HDL Cholesterol 14.0 mg/dL (40-59)
[2025-01-13 14:11] LABS: Base Excess -16.5 mmol/L (-2.0-3.0)
[2025-01-13] MEDS: ACCU-CHEK COMFORT CURVE STRIP VI SCH (14:22)
[2025-01-13] MEDS: NOREPINEPHRINE 8 MG/250ML KIT 250 ML IV SCH (14:31)
[2025-01-13] MEDS: MIDAZOLAM DRIP 50 mg/50mL 50 ML IV SCH (14:39)
[2025-01-13 14:42] LABS: Total Cells Counted 100.0 (100)
[2025-01-13 14:45] LABS: Anisocytosis Slight
--- NOTE | 2025-01-13 14:56 | DVH ---
CHEST RADIOGRAPH Indication: ETT RETRACTION Technique: Frontal view of the chest. Comparison: XY CHEST PORTABLE on DOS: 01/13/25, XY CHEST PORTABLE on DOS: 01/13/25 FINDINGS: ET tube 1.5 cm from the vijay. Retract by 3 cm. Cardiomegaly. There is no evidence of pleural disea se. The lungs are clear. The bony structures of the chest are intact without fracture. Nasogastric tube tip in the stomach IMPRESSION: ETT 1.5 cm from the vijay. Retraction by 3 cm.
[2025-01-13] MEDS ORDERED: SODIUM BICARB 50mEq/50ml Vial 50 ML in SOD CHL 0.45% 1,000 ML IV SCH (15:00)
[2025-01-13] MEDS ORDERED: PIPERACILLIN-TAZOB 3.375GM 100 ML IV ONE (15:00)
[2025-01-13] MEDS ORDERED: VANCOMYCIN PER PHARMACY 0 MG IV SCH (15:00)
--- NOTE | 2025-01-13 16:06 | ECG ---
[facility] Test Date: 2025-01-13 Test Time: 10:25:02 Pat Name: WILLIAM RINCON Department: ER Room: [address] [place] [address] A Gender: F Child And Family Therapist: NAI : 1945 Requested By: JOSIAH GAGNON Order Number: [id number] Reading MD: Neto Andujar Measurements Intervals [place] Rate: 117 P: 7 MD: 173 QRS: -26 QRSD: 94 T: 25 QT: 340 QTc: 475 Interpretive Statements Fast sinus arrhythmia Borderline left axis deviation Electronically Signed On 01-13-2025 17:03:18 PDT by Neto Andujar Please click the below link to view image of tracing.
[2025-01-13 16:07] LABS: Base Excess -15.6 mmol/L (-2.0-3.0)
--- NOTE | 2025-01-13 17:04 | DVHPN2 ---
Progress Note Date Seen: Jan 13, 2025 Has the PT tested + for MRSA If YES, has PT been informed?: No Medical Necessity Reason Pt with a Central, PICC or Fol: Yes The following are medically ne: Leach Catheter Reason for leach catheter: Strict I&O Subjective Patient reports: No new complaints Review of Systems: HEENT:Normal, CVS:Normal, RESPIRATORY:Normal, GI:Normal, :Normal, MSK:Normal, NEURO:Normal Objective vital signs Vital Sign Date Time Temp Pulse Resp B/P (MAP) Pulse Ox O2 Delivery O2 Flow Rate FiO2 01/13/25 16:07 100 22 105/54 (71) 98 35 01/13/25 14:37 98.0 98.0 01/13/25 12:58 Mechanical Ventilator 10.0 Total Intake and Output 01/12/25 01/12/25 01/13/25 15:00 23:00 07:00 Intake Total 1100 ml Balance 1100 ml medications Current Medications Medications Dose Ordered Sig/Isaura Route Start Time Stop Time Status Last Admin Dose Admin Acetaminophen 650 mg Q6HP PRN PO 01/13/25 07:45 Diagnostic Test (Pha) 1 strip Q6HR 01/13/25 12:00 01/13/25 14:22 1 STRIP Insulin Human Regular Q6HR SC 01/13/25 12:00 Pantoprazole Sodium 40 mg DAILY IV 01/13/25 10:00 Cefazolin Sodium 50 ml @ 100 mls/hr Q8HR IV 01/13/25 14:00 UNV Metronidazole 100 ml @ 100 mls/hr Q8HR IV 01/13/25 14:00 01/13/25 14:40 100 MLS/HR Midazolam HCl 50 ml @ 1 mls/hr Q24H IV 01/13/25 13:30 01/13/25 14:39 1 MLS/HR Fentanyl Citrate 250 ml @ 2.5 mls/hr Q24H IV 01/13/25 13:30 01/13/25 13:30 2.5 MLS/HR Norepinephrine Bitartrate 250 ml @ 3.75 mls/hr Q24H IV 01/13/25 13:30 01/13/25 14:31 3.75 MLS/HR Sodium Bicarbonate 50 ml/ Sodium Chloride 1,050 ml @ 100 mls/hr [id number] IV 01/13/25 15:00 Piperacillin Sod/ Tazobactam Sod 100 ml @ 25 mls/hr Q12H IV 01/13/25 18:00 Vancomycin HCl 0 ml @ 0 mls/hr UD IV 01/13/25 15:00 Enoxaparin Sodium 60 mg DAILY SC 01/14/25 10:00 Examination: GENERAL:Normal, HEENT:Normal, NECK:Normal, LUNGS:Normal, LUNGS:Abnormal (intubated), CVS:Normal, ABDOMEN:Normal, ABDOMEN:Abnormal (taty drains), MSK:Normal, SKIN:Normal, NEURO:Normal, NEURO:Abnormal (sedated), :Normal laboratory and microbiology Laboratory Tests 01/13/25 07:59 Test 01/13/25 07:59 Range/Units Serum Glucose 123 H 74-106 mg/dL Microbiology Date/Time Source Procedure Growth Status 01/13/25 13:05 Sputum Gram Stain - Final Resulted 01/13/25 13:05 Sputum Respiratory Culture Pending Resulted 01/13/25 11:42 Peritoneal Fluid Gram Stain - Final Resulted 01/13/25 11:42 Peritoneal Fluid Anaerobic Culture Pending Resulted 01/13/25 11:42 Peritoneal Fluid Aerobic Culture Pending Resulted Problem List/Assessment/Plan Problem List/Assessment/Plan #1 acute resp failure: cont acv, adjust vent settings, repeat abg #2 septic shock: ivf, iv pressors ,iv antibiotics #3 dm: ssi #4 acute renal failure ?vasomotor nephropathy: nephro eval #5 perf small bowel s/p expl lap #6 hypothyroidism #7 anemia #8 obesity #9 a fib #10 hyperlipidemia long dw daughter: explained plan of care Plan discussed with: Daughter My Orders My Orders Orders - ZBIGNIEW SELF MD Procedure Category Date Status Time Ventilator Orders RT 01/13/25 Transmitted 14:15 Abg W/ Co-Ox RT 01/13/25 Logged 15:15 Transfer Orders XFER 01/13/25 Transmitted 14:52 Sod Chl 0.45% PHA 01/13/25 In Process (Sodi... W/Sodium 15:00 Piperacillin-Tazob PHA 01/13/25 In Process 3.375gm (Zosyn 3.375g 18:00 Vancomycin Per PHA 01/13/25 In Process Pharmacy 15:00 Complete Blood Count LAB 01/14/25 Verified 06:00 Comprehensive LAB 01/14/25 Verified Metabolic Panel 06:00 Chest Portable XY 01/14/25 Logged 06:00 Hemoglobin A1c LAB 01/14/25 Verified 06:00 Thyroid Stimulating LAB 01/14/25 Verified Hormone 05:00 Abg W/ Co-Ox RT 01/14/25 Logged 06:00 Urinalysis LAB 01/13/25 Uncollected 14:57 Vancomycin PHA 01/13/25 In Process 1.25gm/250ml 16:30 Vancomycin Per SAPPHIRE 01/13/25 In Process Pharmacy Protoc 16:30 Vancomycin,Random LAB 01/14/25 Verified 04:00 Critical Care Time (mins): 81 (critical care time excluding procedures is 81 mins) Date of Service: Jan 13, 2025 Billing Provider: ZBIGNIEW SELF MD Common Visit Codes: 93180-IEZTJEHU CARE 30-74 MIN, 48655-[id number] CARE-EACH +30MIN ZBIGNIEW SELF MD Jan 13, 2025 17:04
--- NOTE | 2025-01-13 18:28 | DVHNC2 ---
Central Line Recorder of insertion practice: Neck Cutter Occupation of netezza architect: Attending Physician Indication: Hypotension Room prepared for procedure: Yes Neck Cutter performed hand hygien: Yes Maximal sterile barrier precau: Mask/Eye shield, Sterile gown, Cap, Sterlie gloves, Large sterlie drape Skin Preparation: Chlorhexidine gluconate Skin preparation completely dr: Yes Insertion site: Left, Internal jugular Central line catheter type: Oqi-[id number]-rur dialysis Number of lumens: 3 Central line exchanged over a: No Antiseptic ointment applied to: No Post Assessment: Chest X-Ray Informed consent obtained: Yes Risks/benefits/alt described: Yes Date of Service: Jan 13, 2025 Billing Provider: ZBIGNIEW SELF MD Common Visit Codes: PROCEDURE ONLY Procedure Codes: [id number] NON-TUNNEL CV CATH ZBIGNIEW SELF MD Jan 13, 2025 18:28
[2025-01-13] MEDS ORDERED: VASOPRESSIN 20 UNITS in SODIUM CHL 0.9% 99 ML IV SCH (18:45)
--- NOTE | 2025-01-13 18:57 | CODING ---
Date of Service: Jan 13, 2025 Billing Provider: ZBIGNIEW SELF MD Common Visit Codes: 24011-[id number] CARE 30-74 MIN, 12682-YLLNRRMU CARE-EACH +30MIN (X2) ZBIGNIEW SELF MD Jan 13, 2025 18:57
--- NOTE | 2025-01-13 19:08 | DVH ---
CHEST RADIOGRAPH Indication: CONFIRM CENTRAL LINE PLACEMENTS Technique: Single frontal view of the chest was obtained Comparison: XY CHEST XRAY 1 VIEW on DOS: 01/13/25, XY CHEST PORTABLE on DOS: 01/13/25 FINDINGS: Lines and Tubes: Endotracheal tube 3.5 cm above the vijay. Enteric tube below the left diaphragm in the stomach Lungs: Significant change in cardiopulmonary findings from earlier study of 01/13/2025 Pleura: No effusion. No pneumothorax. Cardiomediastinal contours: Unremarkable Bones: No acute osseous abnormality. IMPRESSION: 1. Lines and tubes in appropriate position.
[2025-01-13 19:32] LABS: Base Excess -16.2 mmol/L (-2.0-3.0)
[2025-01-13 19:44] LABS: Lactic Acid w/Reflex 4.2 mmol/L (0.4-2.0)
[2025-01-13] MEDS: LACTATED RINGER'S 2,000 ML IV ONE (19:57)
[2025-01-13] MEDS: PHENYLEPHRINE IV 250 ML IV SCH (20:24)
[2025-01-13] MEDS: SODIUM CHLORIDE 0.9% 500 ML IV ONE (20:25)
[2025-01-13] MEDS: SODIUM BICARB 50mEq/50ml Vial 150 ML in D5W 5% 1,000 ML IV SCH (20:26)
[2025-01-13] MEDS: VANCOMYCIN 1.25GM/250ML 250 ML IV ONE (20:46)
[2025-01-13] MEDS: VASOPRESSIN 20 UNITS in SODIUM CHL 0.9% 99 ML IV SCH (20:48)
[2025-01-13] MEDS: FLUCONAZOLE 200MG/100ML 100 ML IV ONE (21:30)
[2025-01-13] MEDS ORDERED: NORTRIPTYLINE HCL 10 MG CAP PO SCH (22:00)
[2025-01-13] MEDS: PIPERACILLIN-TAZOB 3.375GM 100 ML IV SCH (22:14)
[2025-01-13 22:50] LABS: Base Excess -18.6 mmol/L (-2.0-3.0)
[2025-01-14] VITALS (110 sets, daily range): BP systolic 11–170; BP diastolic 38–76; PULSE 77–126; RESP 16–26; TEMP 97.3–99.1; O2SAT 94–100
[2025-01-14] MEDS: ALBUMIN 25% 100 ML IV ONE (00:18)
[2025-01-14] MEDS: SODIUM BICARB 8.4% 50Meq/50ml SYR Vial IV ONE (01:12)
[2025-01-14 02:22] LABS: Base Excess -7.7 mmol/L (-2.0-3.0)
[2025-01-14] MEDS: FUROSEMIDE 100 MG/10ML VIAL IV ONE (02:28)
[2025-01-14 03:00] LABS: Lactic Acid w/Reflex 7.3 mmol/L (0.4-2.0)
[2025-01-14] MEDS ORDERED: CALCIUM CHL 100MG/ML 500 MG in D5W 5% 100 ML IV ONE (03:30)
[2025-01-14] MEDS: ALBUTEROL SULF 2.5 MG/0.5ML(0.5%) NEB SOLN NEB ONE (03:49)
[2025-01-14] MEDS: DEXTROSE (50%) 50ML SYRG IV ONE (04:05)
[2025-01-14] MEDS: SODIUM BICARB 8.4% 50Meq/50ml SYR INJ IV ONE (04:05)
[2025-01-14] MEDS: InsuLIN REG 1unit/0.01ml Soln (100units/ml) IV ONE (04:13)
[2025-01-14 04:25] LABS: Hematocrit 21.7 % (36.0-46.0); Hemoglobin 7.1 g/dL (12.2-16.2); Mean Corpuscular Hemoglobin 29.5 pg (28.0-32.0); Mean Corpuscular Volume 89.8 fL (80.0-100.0)
[2025-01-14] MEDS: CALCIUM GLUC 1,000mg/50ml-NS 50 ML IV ONE ×2 (04:36→04:38)
[2025-01-14 04:41] LABS: Protein, Urine 131.1 mg/dL (1-14)
[2025-01-14 04:53] LABS: Alanine Aminotransferase 21 U/L (7-40); Alkaline Phosphatase 80 U/L (46-116); Anion Gap 19 (5-15); BUN/Creatinine Ratio 19.6 (10.0-20.0)
[2025-01-14 04:55] LABS: Bilirubin, Total 0.8 mg/dL (0.2-1.0)
[2025-01-14 04:56] LABS: Albumin 2.6 g/dL (3.2-4.8); Blood Urea Nitrogen 47 mg/dL (9-23); Calcium 7.1 mg/dL (8.7-10.4); Carbon Dioxide 18 mmol/L (20-31); Chloride 108 mmol/L (98-107); Glucose 167 mg/dL (74-106); Sodium 145 mmol/L (136-145); Total Protein 4.5 g/dL (5.7-8.2)
[2025-01-14 04:57] LABS: Potassium 5.7 mmol/L (3.5-5.1)
[2025-01-14 05:06] LABS: Urine Amorphous Crystal FEW /hpf (None Seen); Urine Protein, UAD 1+ (Negative)
[2025-01-14 05:26] LABS: Nucleated Red Blood Cells % 1.0 %; Total Cells Counted 100.0 (100)
--- NOTE | 2025-01-14 05:50 | DVH ---
CHEST RADIOGRAPH Indication: resp failure Technique: Single frontal view of the chest was obtained COMPARISON: XY CHEST PORTABLE on DOS: 01/13/25, XY CHEST XRAY 1 VIEW on DOS: 01/13/25, XY CHEST PORTABLE on DOS: 01/13/25, XY CHEST PORTABLE on DOS: 01/13/25 FINDINGS: Lines and Tubes: Endotracheal tube, enteric catheter and left PICC in satisfactory position. Lungs: Significant change in cardiopulmonary findings from earlier study of 01/13/2025 Pleura: No effusion. No pneumothorax. Cardiomediastinal contours: Unremarkable Bones: No acute osseous abnormality. IMPRESSION: 1. Lines and tubes in appropriate position.
[2025-01-14 07:09] LABS: Base Excess -8.4 mmol/L (-2.0-3.0)
[2025-01-14 08:18] LABS: Hematocrit 21.2 % (36.0-46.0)
[2025-01-14 08:21] LABS: Hemoglobin 6.9 g/dL (12.2-16.2)
--- NOTE | 2025-01-14 08:38 | DVHPN2 ---
Progress Note Date Seen: Jan 14, 2025 Has the PT tested + for MRSA If YES, has PT been informed?: No Medical Necessity Reason Pt with a Central, PICC or Fol: Yes The following are medically ne: Central Line, Leach Catheter Reason for leach catheter: Strict I&O Subjective Review of Systems: Deferred Objective vital signs Vital Sign Date Time Temp Pulse Resp B/P (MAP) Pulse Ox O2 Delivery O2 Flow Rate FiO2 01/14/25 08:27 98.4 113 22 108/47 98.4 01/14/25 08:26 98 30 01/14/25 06:00 Mechanical Ventilator+ 01/13/25 12:58 10.0 Total Intake and Output 01/13/25 01/13/25 01/14/25 15:00 23:00 07:00 Intake Total 160 ml 1606.50 ml 921.0 ml Output Total 200 ml 680 ml 580 ml Balance -40 ml 926.50 ml 341.0 ml medications Current Medications Medications Dose Ordered Sig/Isaura Route Start Time Stop Time Status Last Admin Dose Admin Acetaminophen 650 mg Q6HP PRN PO 01/13/25 07:45 Diagnostic Test (Pha) 1 strip Q6HR 01/13/25 12:00 01/14/25 05:12 1 STRIP Insulin Human Regular Q6HR SC 01/13/25 12:00 01/14/25 05:20 4 UNITS Pantoprazole Sodium 40 mg DAILY IV 01/13/25 10:00 Cefazolin Sodium 50 ml @ 100 mls/hr Q8HR IV 01/13/25 14:00 UNV Metronidazole 100 ml @ 100 mls/hr Q8HR IV 01/13/25 14:00 01/14/25 05:06 100 MLS/HR Midazolam HCl 50 ml @ 1 mls/hr Q24H IV 01/13/25 13:30 01/14/25 05:05 1 MLS/HR Fentanyl Citrate 250 ml @ 2.5 mls/hr Q24H IV 01/13/25 13:30 01/13/25 13:30 2.5 MLS/HR Norepinephrine Bitartrate 250 ml @ 3.75 mls/hr Q24H IV 01/13/25 13:30 01/13/25 14:31 3.75 MLS/HR Piperacillin Sod/ Tazobactam Sod 100 ml @ 25 mls/hr Q12H IV 01/13/25 18:00 01/14/25 05:09 25 MLS/HR Vancomycin HCl 0 ml @ 0 mls/hr UD IV 01/13/25 15:00 Enoxaparin Sodium 60 mg DAILY SC 01/14/25 10:00 Vasopressin 20 units/Sodium Chloride 100 ml @ 9 mls/hr Q11H7M IV 01/13/25 18:45 Vasopressin 20 units/Sodium Chloride 100 ml @ 9 mls/hr Q11H7M IV 01/13/25 18:45 UNV Phenylephrine HCl 250 ml @ 30 mls/hr Q8H20M IV 01/13/25 18:45 01/14/25 08:14 30 MLS/HR Sodium Bicarbonate 150 ml/Dextrose 1,150 ml @ 100 mls/hr [id number] IV 01/13/25 19:00 01/14/25 08:35 100 MLS/HR Fluconazole 100 ml @ 100 mls/hr DAILY@2000 IV 01/14/25 20:00 Examination: GENERAL:Abnormal, LUNGS:Abnormal laboratory and microbiology Laboratory Tests 01/14/25 07:55 01/14/25 03:00 Test 01/14/25 03:00 Range/Units Serum Glucose 167 H 74-106 mg/dL Microbiology Date/Time Source Procedure Growth Status 01/13/25 13:05 Sputum Gram Stain - Final Resulted 01/13/25 13:05 Sputum Respiratory Culture Pending Resulted 01/13/25 11:42 Peritoneal Fluid Gram Stain - Final Resulted 01/13/25 11:42 Peritoneal Fluid Anaerobic Culture Pending Resulted 01/13/25 11:42 Peritoneal Fluid Aerobic Culture Pending Resulted Problem List/Assessment/Plan Problem List/Assessment/Plan 80-year-old female presents to the hospital complaining of abdominal pain is diagnosed with abdominal perforation Acute kidney injury hemodynamically mediated Chronic kidney disease unspecified baseline unknown Acute perforation of the abdomen / bowel ischemia s/p exlap History of atrial fibrillation previously on anticoagulation 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 workup unclear anemia hyperkalemia metabolic acidosis intubated UOP has improved s/p lasix will give as PRN but for now additional dose not needed IV fluid hydration Sodium bicarbonate IV drip medical management for hyperkalemia PRBC today strict Is&Os and monitoring urinary output seriologies for autoimmune hx No emergent indication for dialysis at this time Rest of care as per primary medical team Plan discussed with: Other (NURSE) My Orders My Orders Orders - PATRICK RAMOS MD Procedure Category Date Status Time Strict I & O SAPPHIRE 01/13/25 In Process 08:47 Rheumatoid Arthritis LAB 01/13/25 In Process Factor 11:30 Antineutrophil LAB 01/13/25 In Process Cytoplasmic Ab 11:30 Anti-Dsdna Antibody LAB 01/13/25 In Process 11:30 Paula Direct W/Reflex LAB 01/13/25 In Process To Comp. 11:30 Complement C3 & C4 LAB 01/13/25 In Process 11:30 Critical Care Time (mins): 33 PATRICK RAMOS MD Jan 14, 2025 08:38
--- NOTE | 2025-01-14 09:13 | DVHPN2 ---
Progress Note Date Seen: Jan 14, 2025 Has the PT tested + for MRSA If YES, has PT been informed?: No Medical Necessity Reason Pt with a Central, PICC or Fol: Yes The following are medically ne: Central Line, Leach Catheter Reason for leach catheter: Strict I&O Objective vital signs Vital Sign Date Time Temp Pulse Resp B/P (MAP) Pulse Ox O2 Delivery O2 Flow Rate FiO2 01/14/25 08:27 98.4 113 22 108/47 98.4 01/14/25 08:26 98 30 01/14/25 06:00 Mechanical Ventilator+ 01/13/25 12:58 10.0 Total Intake and Output 01/13/25 01/13/25 01/14/25 15:00 23:00 07:00 Intake Total 160 ml 1606.50 ml 921.0 ml Output Total 200 ml 680 ml 580 ml Balance -40 ml 926.50 ml 341.0 ml medications Current Medications Medications Dose Ordered Sig/Isaura Route Start Time Stop Time Status Last Admin Dose Admin Acetaminophen 650 mg Q6HP PRN PO 01/13/25 07:45 Diagnostic Test (Pha) 1 strip Q6HR 01/13/25 12:00 01/14/25 05:12 1 STRIP Insulin Human Regular Q6HR SC 01/13/25 12:00 01/14/25 05:20 4 UNITS Pantoprazole Sodium 40 mg DAILY IV 01/13/25 10:00 Cefazolin Sodium 50 ml @ 100 mls/hr Q8HR IV 01/13/25 14:00 UNV Metronidazole 100 ml @ 100 mls/hr Q8HR IV 01/13/25 14:00 01/14/25 05:06 100 MLS/HR Midazolam HCl 50 ml @ 1 mls/hr Q24H IV 01/13/25 13:30 01/14/25 05:05 1 MLS/HR Fentanyl Citrate 250 ml @ 2.5 mls/hr Q24H IV 01/13/25 13:30 01/13/25 13:30 2.5 MLS/HR Norepinephrine Bitartrate 250 ml @ 3.75 mls/hr Q24H IV 01/13/25 13:30 01/13/25 14:31 3.75 MLS/HR Piperacillin Sod/ Tazobactam Sod 100 ml @ 25 mls/hr Q12H IV 01/13/25 18:00 01/14/25 05:09 25 MLS/HR Vancomycin HCl 0 ml @ 0 mls/hr UD IV 01/13/25 15:00 Enoxaparin Sodium 60 mg DAILY SC 01/14/25 10:00 Vasopressin 20 units/Sodium Chloride 100 ml @ 9 mls/hr Q11H7M IV 01/13/25 18:45 Vasopressin 20 units/Sodium Chloride 100 ml @ 9 mls/hr Q11H7M IV 01/13/25 18:45 UNV Phenylephrine HCl 250 ml @ 30 mls/hr Q8H20M IV 01/13/25 18:45 01/14/25 08:14 30 MLS/HR Sodium Bicarbonate 150 ml/Dextrose 1,150 ml @ 100 mls/hr [id number] IV 01/13/25 19:00 01/14/25 08:35 100 MLS/HR Fluconazole 100 ml @ 100 mls/hr DAILY@2000 IV 01/14/25 20:00 laboratory and microbiology Laboratory Tests 01/14/25 07:55 01/14/25 03:00 Test 01/14/25 03:00 Range/Units Serum Glucose 167 H 74-106 mg/dL Problem List/Assessment/Plan Problem List/Assessment/Plan 01/14/25 afebrile, low dose BP support, received transfusion, I believe her decreased hematocrit is due to hemodilution. abdomen non distended, soft, wound clean and well approximated, drainage serous . remains intubated and sedated Plan discussed with: MELVA Thomas MD Jan 14, 2025 09:13
[2025-01-14] MEDS: ENOXAPARIN SOD 60 MG/0.6 ML SYRINGE SC SCH (10:14)
[2025-01-14 12:15] LABS: Hematocrit 25.5 % (36.0-46.0); Hemoglobin 8.5 g/dL (12.2-16.2)
--- NOTE | 2025-01-14 13:34 | DVHPNRES ---
Progress Note Date Seen: Jan 14, 2025 Resident Creating Document: DG YOUNG RESIDENT Has the PT tested + for MRSA If YES, has PT been informed?: No Medical Necessity Reason Pt with a Central, PICC or Fol: Yes The following are medically ne: Central Line, Leach Catheter Reason for leach catheter: Strict I&O Subjective Review of Systems This is a 80-year-old female with past medical history of hypertension, AFib on Eliquis, type 2 diabetes mellitus, autoimmune disease, CKD, presented to the ED with a chief complaint of severe abdominal pain for last 2 4 days prior to this visit. The i.e. the patient has intermittent able minimal pain for last 4 month, getting worse that prompted this visit. mentioned recently this patient had a fall few weeks ago and chest x-ray demonstrated healed fracture on right 4th and 5th ribs. Before intubation the patient described the abdominal pain is sharp constant pain, diffuse in nature, 9/10, radiates to the back and associated with constipation. He denies fever, chills, shortness of breath, dizziness, nausea, vomiting, hematuria, dysuria, recent traveling, or any positive for Crohn's sick contact or any altered bowel habit. CT abdomen pelvis without IV contrast demonstrated free intraperitoneal likely from visceral perforation of the left abdominal small bowel loops, circumferential wall thickening of left abdominal small bowel loop with more focal local pool of gas adjacent to this thickened small bowel loop. Underwent emergent exploratory laparotomy, lysis of adhesions, extensive lab age, resection of perforated small bowel, enteroenterostomy. Patient was seen and examined on the bedside in ICU. Family was on the bedside. She is on mechanical ventilation with FiO2 30%, tidal volume 450 mL, peep 5 and respiratory rate 22. Today morning ABG showed anion gap metabolic acidosis with respiratory compensation, hyperkalemia which was managed with hyperkalemia protocol management and follow up potassium was 4.7, lactic acid dropped down to 4.7,. Chest x-ray demonstrated bibasilar atelectasis, getting worse than yesterday. Urine output significantly improved than yesterday. Drain 1 on right side 110 mL in 12 hours, drain to in left side 85 mL and water serosanguineous. Objective vital signs Vital Sign Date Time Temp Pulse Resp B/P (MAP) Pulse Ox O2 Delivery O2 Flow Rate FiO2 01/14/25 12:30 98 22 102/44 (63) 100 01/14/25 12:00 97.3 97.3 01/14/25 12:00 Mechanical Ventilator+ 35 35 01/13/25 12:58 10.0 Total Intake and Output 01/13/25 01/13/25 01/14/25 15:00 23:00 07:00 Intake Total 160 ml 1606.50 ml 1052.0 ml Output Total 200 ml 680 ml 580 ml Balance -40 ml 926.50 ml 472.0 ml medications Current Medications Medications Dose Ordered Sig/Isaura Route Start Time Stop Time Status Last Admin Dose Admin Acetaminophen 650 mg Q6HP PRN PO 01/13/25 07:45 Diagnostic Test (Pha) 1 strip Q6HR 01/13/25 12:00 01/14/25 11:42 1 STRIP Insulin Human Regular Q6HR SC 01/13/25 12:00 01/14/25 11:46 6 UNITS Pantoprazole Sodium 40 mg DAILY IV 01/13/25 10:00 01/14/25 09:54 40 MG Cefazolin Sodium 50 ml @ 100 mls/hr Q8HR IV 01/13/25 14:00 UNV Metronidazole 100 ml @ 100 mls/hr Q8HR IV 01/13/25 14:00 01/14/25 05:06 100 MLS/HR Midazolam HCl 50 ml @ 1 mls/hr Q24H IV 01/13/25 13:30 01/14/25 05:05 1 MLS/HR Fentanyl Citrate 250 ml @ 2.5 mls/hr Q24H IV 01/13/25 13:30 01/13/25 13:30 2.5 MLS/HR Norepinephrine Bitartrate 250 ml @ 3.75 mls/hr Q24H IV 01/13/25 13:30 01/13/25 14:31 3.75 MLS/HR Piperacillin Sod/ Tazobactam Sod 100 ml @ 25 mls/hr Q12H IV 01/13/25 18:00 01/14/25 05:09 25 MLS/HR Vancomycin HCl 0 ml @ 0 mls/hr UD IV 01/13/25 15:00 Enoxaparin Sodium 60 mg DAILY SC 01/14/25 10:00 01/14/25 10:14 60 MG Vasopressin 20 units/Sodium Chloride 100 ml @ 9 mls/hr Q11H7M IV 01/13/25 18:45 Vasopressin 20 units/Sodium Chloride 100 ml @ 9 mls/hr Q11H7M IV 01/13/25 18:45 UNV Phenylephrine HCl 250 ml @ 30 mls/hr Q8H20M IV 01/13/25 18:45 01/14/25 08:14 30 MLS/HR Sodium Bicarbonate 150 ml/Dextrose 1,150 ml @ 100 mls/hr [id number] IV 01/13/25 19:00 01/14/25 08:35 100 MLS/HR Fluconazole 100 ml @ 100 mls/hr DAILY@1999 IV 01/14/25 20:00 Examination General: RASS -3, afebrile, mucosae are moist Cardiovascular: Normal S1 and S2. No murmurs, gallops or rubs Respiratory: Mechanically assisted ventilation, equal bilateral airway entree. Decreased breath sounds on both sides lower lung field Abdomen: Soft, nontender, no organomegaly, no bowel sounds, surgical scar on the midline, no sign of erythema or oozing from the incision site MSK/skin: Mobilization of limbs cannot be evaluated. Skin is dry and warm. Neurological: Orientation cannot be assessed. No apparent motor no sensitive deficits. Pupils are isocoric and reactive laboratory and microbiology Laboratory Tests 01/14/25 12:05 01/14/25 07:55 01/14/25 03:00 Test 01/14/25 03:00 Range/Units Serum Glucose 167 H 74-106 mg/dL Microbiology Date/Time Source Procedure Growth Status 01/13/25 13:05 Sputum Gram Stain - Final Resulted 01/13/25 13:05 Sputum Respiratory Culture - Preliminary Resulted 01/13/25 11:42 Peritoneal Fluid Gram Stain - Final Resulted 01/13/25 11:42 Peritoneal Fluid Anaerobic Culture - Preliminary Resulted 01/13/25 11:42 Peritoneal Fluid Aerobic Culture - Preliminary Resulted Labs and/or images reviewed: Labs reviewed by me, Image(s) reviewed by me Problem List/Assessment/Plan Problem List/Assessment/Plan Assessment and plan: NEURO: Acute metabolic encephalopathy secondary to acute hypoxic respiratory failure Status post intubation RASS score: -3 CARDIOVASCULAR: Septic shock secondary to perforation of the hollow viscus Paroxysmal atrial fibrillation with secondary hypercoagulable state - pending echo - Chest xray demonstrated bibasilar atelectasis - [id number] score more than 5 PULMONARY: Acute hypoxic respiratory failure GASTROINTESTINAL: Perforation of the small bowel, status post exploratory laparotomy Transaminitis secondary to shock GENITOURINARY: ISRRAEL on CKD secondary to shock/VMN ENDOCRINE: History of hypothyroidism Type 2 diabetes mellitus, hemoglobin A1c 8.2 - mild sliding scale of insulin METABOLIC: Hyperkalemia secondary to ISRRAEL Moderate protein calorie malnutrition, albumin 2.6 Anion gap metabolic acidosis secondary to bowel ischemia leading to lactic acidosis - Patient is on sodium bicarb drip at 100 mL/hours HEME: Acute on chronic anemia secondary to hemodilution/post surgical - 1 unit PRBC given - H&H is stable INFECTIOUS DISEASE: Sepsis with septic shock secondary to perforation of the small bowel - cultures are pending - continue IV vancomycin, Zosyn, metronidazole and fluconazole DIET: NPO DVT prophylax: GI prophylaxis: Pantoprazole Bowel regimen: Code status: Full code LINES/DRAINS/ACCESS: ETT: Intubated on 01/14/25 IV access: Left IJ placed on 01/14/2025 Drips: Phenylephrine, Versed and fentanyl Leach catheter: Placed on 0 0 10/03 DISPOSITION: ICU Patient's status discussed with Son, granddaughter Critical care time spent more than 73 minutes, including patient care, chart review, and updating the family. Excluding any procedures. Case discussed with Dr. Wagner Plan discussed with: Patient, Son, Other (RN) My Orders My Orders Orders - DG YOUNG Procedure Category Date Status Time Fluconazole PHA 01/14/25 In Process 200mg/100ml (Diflucan 20:00 Abg W/ Co-Ox RT 01/13/25 Logged 22:00 Basic Metabolic Panel LAB 01/14/25 Logged 08:30 Lactic Acid W/ Reflex LAB 01/14/25 Logged Order 11:55 Dietary Evaluation Review Comments: Nutrition Recommendation: 1) TPN to meet at least 75% estimated needs within 7 days 2) Monitor NPO status, lab values, wt trend, I/O Expected Outcomes/Goals: To meet >75% estimated needs Lab values to improve Fu 2-3 days DG YOUNG Jan 14, 2025 13:34
[2025-01-14 15:19] LABS: Chloride 103 mmol/L (98-107); Potassium 4.0 mmol/L (3.5-5.1); Sodium 143 mmol/L (136-145)
[2025-01-14 15:20] LABS: Anion Gap 14 (5-15); Carbon Dioxide 26 mmol/L (20-31)
[2025-01-14 15:22] LABS: Calcium 7.1 mg/dL (8.7-10.4)
[2025-01-14 15:25] LABS: BUN/Creatinine Ratio 21.8 (10.0-20.0)
[2025-01-14 15:27] LABS: Blood Urea Nitrogen 52 mg/dL (9-23); Glucose 328 mg/dL (74-106)
[2025-01-14 15:30] LABS: Lactic Acid w/Reflex 4.7 mmol/L (0.4-2.0)
--- NOTE | 2025-01-14 16:33 | DVHPN2 ---
Consult Progress Note Subjective Other Systems: Patient in sinus tachycardia on senior vice president at time of assessment Objective vital signs Vital Sign Date Time Temp Pulse Resp B/P (MAP) Pulse Ox O2 Delivery O2 Flow Rate FiO2 01/14/25 16:20 145/59 01/14/25 15:29 102 22 100 30 01/14/25 14:00 Mechanical Ventilator+ 01/14/25 12:00 97.3 97.3 01/13/25 12:58 10.0 Total Intake and Output 01/13/25 01/13/25 01/14/25 15:00 23:00 07:00 Intake Total 160 ml 1606.50 ml 1052.0 ml Output Total 200 ml 680 ml 580 ml Balance -40 ml 926.50 ml 472.0 ml medications Current Medications Medications Dose Ordered Sig/Isaura Route Start Time Stop Time Status Last Admin Dose Admin Acetaminophen 650 mg Q6HP PRN PO 01/13/25 07:45 Diagnostic Test (Pha) 1 strip Q6HR 01/13/25 12:00 01/14/25 11:42 1 STRIP Insulin Human Regular Q6HR SC 01/13/25 12:00 01/14/25 11:46 6 UNITS Pantoprazole Sodium 40 mg DAILY IV 01/13/25 10:00 01/14/25 09:54 40 MG Cefazolin Sodium 50 ml @ 100 mls/hr Q8HR IV 01/13/25 14:00 UNV Metronidazole 100 ml @ 100 mls/hr Q8HR IV 01/13/25 14:00 01/14/25 14:00 100 MLS/HR Midazolam HCl 50 ml @ 1 mls/hr Q24H IV 01/13/25 13:30 01/14/25 05:05 1 MLS/HR Fentanyl Citrate 250 ml @ 2.5 mls/hr Q24H IV 01/13/25 13:30 01/13/25 13:30 2.5 MLS/HR Norepinephrine Bitartrate 250 ml @ 3.75 mls/hr Q24H IV 01/13/25 13:30 01/13/25 14:31 3.75 MLS/HR Piperacillin Sod/ Tazobactam Sod 100 ml @ 25 mls/hr Q12H IV 01/13/25 18:00 01/14/25 05:09 25 MLS/HR Vancomycin HCl 0 ml @ 0 mls/hr UD IV 01/13/25 15:00 Enoxaparin Sodium 60 mg DAILY SC 01/14/25 10:00 01/14/25 10:14 60 MG Vasopressin 20 units/Sodium Chloride 100 ml @ 9 mls/hr Q11H7M IV 01/13/25 18:45 Vasopressin 20 units/Sodium Chloride 100 ml @ 9 mls/hr Q11H7M IV 01/13/25 18:45 UNV Phenylephrine HCl 250 ml @ 30 mls/hr Q8H20M IV 01/13/25 18:45 01/14/25 16:20 30 MLS/HR Sodium Bicarbonate 150 ml/Dextrose 1,150 ml @ 100 mls/hr [id number] IV 01/13/25 19:00 01/14/25 08:35 100 MLS/HR Fluconazole 100 ml @ 100 mls/hr DAILY@2000 IV 01/14/25 20:00 Examination: GENERAL:Abnormal, LUNGS:Abnormal (Mechanically ventilated), CVS:Normal, NEURO:Abnormal (Chemically sedated) laboratory and microbiology Laboratory Tests 01/14/25 14:40 01/14/25 12:05 01/14/25 03:00 Test 01/14/25 14:40 Range/Units Serum Glucose 328 H 74-106 mg/dL Problem List/Assessment/Plan Problem List/Assessment/Plan Paroxysmal atrial fibrillation, Stage 3A (on low-dose Eliquis) Septic shock Rule out structural heart disease Acute peritonitis with perforated bowel status post exploratory laparotomy Acute anemia requiring PRBC transfusion Hypertriglyceridemia, newly diagnosed Acute kidney injury Thyroid disease Type 2 diabetes mellitus, uncontrolled (Hgb A1c 8.2%) Obesity Plan/Recommendations (Dr. Ann): Pending transthoracic echocardiogram to evaluate cardiac function. At the time of assessment, the patient is currently in a normal sinus rhythm on senior vice president. The patient has a known history of atrial fibrillation and takes low- dose Eliquis at home. [id number] VASc score: 5 points, HAS-BLED score: 1 point. The patient was started on therapeutic Lovenox. Hemoglobin this morning dropped down to 6.9, requiring 1 unit of PRBCs to be transfused. We will stop therapeutic Lovenox for now. Consider restarting DOAC therapy with stable hemoglobin and hematocrit level and no signs of active bleeding. In the meantime, continue with SCDs. The patient continues to be on vasopressor support for hemodynamic stability. Continue with close cardiac surveillance and notify cardiology team for any ECG changes. Thank you for allowing us to care for this patient. Please call with any questions or concerns. Critical care time spent: 44 minutes. This medical document was created using an electronic medical record system with voice recognition software and computerized dictation system. Although this document has been carefully reviewed, there might still be some phonetic and typographical errors. Occasional wrong-word or ``sound-alike substitutions may have occurred due to the inherent limitations of voice recognition software. These areas are purely typographical due to imperfections of the software programs and do not reflect any compromise in the patient's medical care. Please read the chart carefully and recognize, using context, where these substitutions have occurred. Plan discussed with: Other (Bedside RN) Dietary Evaluation Review Comments: Nutrition Recommendation: 1) TPN to meet at least 75% estimated needs within 7 days 2) Monitor NPO status, lab values, wt trend, I/O Expected Outcomes/Goals: To meet >75% estimated needs Lab values to improve Fu 2-3 days Date of Service: Jan 14, 2025 Billing Provider: JOSIAH GAGNON Common Visit Codes: 86029-EYNKPGBD CARE 30-74 MIN JOSIAH GAGNON Jan 14, 2025 16:33
[2025-01-14] MEDS: FLUCONAZOLE 200MG/100ML 100 ML IV SCH (20:18)
[2025-01-15] VITALS (104 sets, daily range): BP systolic 93–196; BP diastolic 46–86; PULSE 64–96; RESP 8–27; TEMP 98.1–99.7; O2SAT 96–100
--- NOTE | 2025-01-15 02:28 | DVHSR ---
APPROVED REPORT EXAM: LIMITED Two-dimensional and M-mode echocardiogram with Doppler and color Doppler. Blood Pressure: 108/47 mmHg INDICATION Evaluate cardiac function RISK FACTORS Obesity: Height: 5' 2", Weight: 136 DIMENSIONS LVDd3.7 (3.8-5.7cm)LA (2D)3.0 (1.9-4.0cm)Aortic Root3.2 (2.0-3.7cm) LVDs2.7 (2.5-4.0cm)LA (MM) (1.9-4.0cm)Aortic Cusp Exc1.7 (1.5-2.0cm) EF (%) 50.0 (55-70%)Rt. Atrium3.2 (1.9-4.0cm)Asc. Aorta cm IVSd1.0 (0.7-1.1cm)RV (D) (1.8-2.4cm) PWd1.0 (0.7-1.1cm) Mitral Valve MitralMitral Stenosis E wave0.70m/sMV Mean GR.mmHg A wave1.10m/sMV Peak GR.mmHg E/A ratio0.62D MVAcm2 Aortic Valve Aortic ValveAortic Stenosis V10.80m/Analia Mean GR.6mmHg V21.80m/Analia Peak GR.14mmHg LVOT Diameter2.1 (1.8-2.4cm)Doppler AVA1.54cm2 Tricuspid Valve TR Velocity2.70m/s [id number] Other Information Quality : Technically LimitedRhythm : Atrial Fibrillation Technically limited study due to body habitus, patient position and on vent. Conclusion NORMAL LV EF AND IS 65% MILD LVH AND MILD LV DIASTOLIC DYSFUNCTION NORMAL VALVES NORMAL RV FUNCTION NO EFFUSION
[2025-01-15 04:05] LABS: Hematocrit 23.4 % (36.0-46.0); Hemoglobin 8.1 g/dL (12.2-16.2); Mean Corpuscular Hemoglobin 29.2 pg (28.0-32.0); Mean Corpuscular Volume 84.8 fL (80.0-100.0)
[2025-01-15 05:11] LABS: Anion Gap 15 (5-15); Carbon Dioxide 30 mmol/L (20-31)
[2025-01-15 05:16] LABS: BUN/Creatinine Ratio 22.5 (10.0-20.0)
[2025-01-15 05:41] LABS: Blood Urea Nitrogen 51 mg/dL (9-23); Calcium 7.0 mg/dL (8.7-10.4); Chloride 99 mmol/L (98-107); Glucose 329 mg/dL (74-106); Potassium 3.4 mmol/L (3.5-5.1); Sodium 144 mmol/L (136-145)
--- NOTE | 2025-01-15 05:47 | DVH ---
CHEST RADIOGRAPH Indication: Mechanical ventilation Technique: Single frontal view of the chest was obtained COMPARISON: XY CHEST PORTABLE on DOS: 01/14/25, XY CHEST PORTABLE on DOS: 01/13/25, XY CHEST XRAY 1 VIEW on DOS: 01/13/25, XY CHEST PORTABLE on DOS: 01/13/25 FINDINGS: Lines and Tubes: Interval advancement of endotracheal tube such that the tip now projects approximate ly 4.6 cm above the level of the vijay. Remaining lines and tubes unchanged. Lungs: Grossly stable appearing bilateral pleural effusions and bibasilar pulmonary airspace disease. No pneumothorax. Cardiomediastinal contours: Cardiomegaly. Bones: Unremarkable IMPRESSION: 1. Interval advancement of endotracheal tube as above. Remaining lines and tubes unchanged. 2. Stable appearing bilateral pleural effusions and bibasilar pulmonary airspace disease. 3. Cardiomegaly.
[2025-01-15 07:16] LABS: Total Cells Counted 100.0 (100)
[2025-01-15 07:17] LABS: Anisocytosis Slight
--- NOTE | 2025-01-15 10:21 | DVHPN2 ---
Consult Progress Note Subjective Patient reports: Other (intubated) Objective vital signs Vital Sign Date Time Temp Pulse Resp B/P (MAP) Pulse Ox O2 Delivery O2 Flow Rate FiO2 01/15/25 10:10 79 26 106/48 (67) 97 30 01/15/25 09:15 98.4 209.1 01/15/25 06:00 Mechanical Ventilator+ 01/13/25 12:58 10.0 Total Intake and Output 01/14/25 01/14/25 01/15/25 15:00 23:00 07:00 Intake Total 1564 ml 1244 ml 1689.50 ml Output Total 2480 ml 1530 ml Balance 1564 ml -1236 ml 159.50 ml medications Current Medications Medications Dose Ordered Sig/Isaura Route Start Time Stop Time Status Last Admin Dose Admin Acetaminophen 650 mg Q6HP PRN PO 01/13/25 07:45 Diagnostic Test (Pha) 1 strip Q6HR 01/13/25 12:00 01/15/25 05:52 1 STRIP Insulin Human Regular Q6HR SC 01/13/25 12:00 01/15/25 05:20 6 UNITS Pantoprazole Sodium 40 mg DAILY IV 01/13/25 10:00 01/15/25 09:38 40 MG Cefazolin Sodium 50 ml @ 100 mls/hr Q8HR IV 01/13/25 14:00 UNV Metronidazole 100 ml @ 100 mls/hr Q8HR IV 01/13/25 14:00 01/15/25 05:06 100 MLS/HR Midazolam HCl 50 ml @ 1 mls/hr Q24H IV 01/13/25 13:30 01/14/25 05:05 1 MLS/HR Fentanyl Citrate 250 ml @ 2.5 mls/hr Q24H IV 01/13/25 13:30 01/14/25 23:31 5 MLS/HR Norepinephrine Bitartrate 250 ml @ 3.75 mls/hr Q24H IV 01/13/25 13:30 01/13/25 14:31 3.75 MLS/HR Piperacillin Sod/ Tazobactam Sod 100 ml @ 25 mls/hr Q12H IV 01/13/25 18:00 01/15/25 05:06 25 MLS/HR Vancomycin HCl 0 ml @ 0 mls/hr UD IV 01/13/25 15:00 Vasopressin 20 units/Sodium Chloride 100 ml @ 9 mls/hr Q11H7M IV 01/13/25 18:45 Vasopressin 20 units/Sodium Chloride 100 ml @ 9 mls/hr Q11H7M IV 01/13/25 18:45 UNV Phenylephrine HCl 250 ml @ 30 mls/hr Q8H20M IV 01/13/25 18:45 01/14/25 23:43 30 MLS/HR Sodium Bicarbonate 150 ml/Dextrose 1,150 ml @ 100 mls/hr [id number] IV 01/13/25 19:00 01/15/25 07:18 100 MLS/HR Fluconazole 100 ml @ 100 mls/hr DAILY@1999 IV 01/14/25 20:00 01/14/25 20:18 100 MLS/HR Examination: LUNGS:Abnormal (30% FiO2), CVS:Normal (Telemetry consistent with Sinus rhythm with PACs, converted from Atrial fibrillaiton. Now off pressor support at 0500) laboratory and microbiology Laboratory Tests 01/15/25 03:08 Test 01/15/25 03:08 Range/Units Serum Glucose 329 H 74-106 mg/dL Problem List/Assessment/Plan Problem List/Assessment/Plan Problem List/Assessment/Plan Paroxysmal atrial fibrillation, Stage 3A (on low-dose Eliquis) Septic shock Rule out structural heart disease Acute peritonitis with perforated bowel status post exploratory laparotomy Acute anemia requiring PRBC transfusion Hypertriglyceridemia, newly diagnosed Acute kidney injury Thyroid disease Type 2 diabetes mellitus, uncontrolled (Hgb A1c 8.2%) Obesity Plan/Recommendations (Dr. Ann): EF 65% on echo, mild LV diastolic dysfunction. No significant valvular structural abnormalities noted. Continues to be intubated FiO2 30%. The patient has a known history of atrial fibrillation and takes low-dose Eliquis at home, currently sinus rhythm with PACs.. [id number] VASc score: 5 points, HAS-BLED score: 1 point. Anticoagulation held due to hemoglobin drop needing PRBC transfusion. Consider restarting DOAC therapy with stable hemoglobin and hematocrit level and no signs of active bleeding once cleared by surgery. In the meantime, continue with SCDs. Levophed titrated off this morning. BP stable. Continue with close cardiac surveillance and notify cardiology team for any ECG changes. Thank you for allowing us to care for this patient. Please call with any questions or concerns. Plan discussed with: Other Dietary Evaluation Review Comments: Nutrition Recommendation: 1) TPN to meet at least 75% estimated needs within 7 days 2) Monitor NPO status, lab values, wt trend, I/O Expected Outcomes/Goals: To meet >75% estimated needs Lab values to improve Fu 2-3 days Date of Service: Jan 15, 2025 Billing Provider: CRISELDA SABILLON Common Visit Codes: [id number] INP/OBS CARE(HIGH), [id number] CARE 30-74 MIN CRISELDA SABILLON Jan 15, 2025 10:21
--- NOTE | 2025-01-15 10:57 | CONS ---
Pharmacy Clinical Information: Pt currently on Zosyn 3.375gm iv q12hr. Peritoneal fluid cx shows e. coli and Kleb pneumo, MARIA ISABEL of Zosyn = 8 for both. Recommend change to ertapenem or meropenem. PRICILA MCCARTHY PHARMACIST Jan 15, 2025 10:57
[2025-01-15 12:07] LABS: Anti-Nuclear Antibody Direct Negative (Negative)
--- NOTE | 2025-01-15 13:12 | DVHPN2 ---
Progress Note - Dictate Date Seen: Jan 15, 2025 Has the PT tested + for MRSA If YES, has PT been informed?: No Medical Necessity Reason Pt with a Central, PICC or Fol: Yes The following are medically ne: Central Line, Leach Catheter Reason for leach catheter: Strict I&O vital signs Vital Sign Date Time Temp Pulse Resp B/P (MAP) Pulse Ox O2 Delivery O2 Flow Rate FiO2 01/15/25 11:30 77 26 126/54 (78) 97 30 01/15/25 09:15 98.4 209.1 01/15/25 08:00 Mechanical Ventilator+ 01/13/25 12:58 10.0 Total Intake and Output 01/14/25 01/14/25 01/15/25 15:00 23:00 07:00 Intake Total 1564 ml 1244 ml 1689.50 ml Output Total 2480 ml 1530 ml Balance 1564 ml -1236 ml 159.50 ml medications Current Medications Medications Dose Ordered Sig/Isaura Route Start Time Stop Time Status Last Admin Dose Admin Acetaminophen 650 mg Q6HP PRN PO 01/13/25 07:45 Diagnostic Test (Pha) 1 strip Q6HR 01/13/25 12:00 01/15/25 05:52 1 STRIP Insulin Human Regular Q6HR SC 01/13/25 12:00 01/15/25 05:20 6 UNITS Pantoprazole Sodium 40 mg DAILY IV 01/13/25 10:00 01/15/25 09:38 40 MG Cefazolin Sodium 50 ml @ 100 mls/hr Q8HR IV 01/13/25 14:00 UNV Metronidazole 100 ml @ 100 mls/hr Q8HR IV 01/13/25 14:00 01/15/25 05:06 100 MLS/HR Midazolam HCl 50 ml @ 1 mls/hr Q24H IV 01/13/25 13:30 01/14/25 05:05 1 MLS/HR Fentanyl Citrate 250 ml @ 2.5 mls/hr Q24H IV 01/13/25 13:30 01/14/25 23:31 5 MLS/HR Norepinephrine Bitartrate 250 ml @ 3.75 mls/hr Q24H IV 01/13/25 13:30 01/13/25 14:31 3.75 MLS/HR Piperacillin Sod/ Tazobactam Sod 100 ml @ 25 mls/hr Q12H IV 01/13/25 18:00 01/15/25 05:06 25 MLS/HR Vancomycin HCl 0 ml @ 0 mls/hr UD IV 01/13/25 15:00 Vasopressin 20 units/Sodium Chloride 100 ml @ 9 mls/hr Q11H7M IV 01/13/25 18:45 Vasopressin 20 units/Sodium Chloride 100 ml @ 9 mls/hr Q11H7M IV 01/13/25 18:45 UNV Phenylephrine HCl 250 ml @ 30 mls/hr Q8H20M IV 01/13/25 18:45 01/14/25 23:43 30 MLS/HR Sodium Bicarbonate 150 ml/Dextrose 1,150 ml @ 100 mls/hr [id number] IV 01/13/25 19:00 01/15/25 07:18 100 MLS/HR Fluconazole 100 ml @ 100 mls/hr DAILY@2000 IV 01/14/25 20:00 01/14/25 20:18 100 MLS/HR laboratory and microbiology Laboratory Tests 01/15/25 03:08 Test 01/15/25 03:08 Range/Units Serum Glucose 329 H 74-106 mg/dL Assessment/Plan Covering for Dr. Reed Cassandra Developer rounds Impression Acute hypoxemic respiratory failure Bowel perforation S/p resection Sepsis ISRRAEL Patient seen and examined in ICU Events On mechanical ventilation S/p intubation PEEP 5, FiO2 30% S/p resection and colostomy Labs and imaging reviewed BUN/Creatinine elevated ABG reviewed Management Vent support Titrate to maintain sats 90% or above Sedation holiday daily If patient follows commands, proceed to weaning trial Pressure support 11/13, extubate when ready Continue antibiotics F/u cultures Bronchodilators Monitor renal function Monitor electrolytes Supplement as needed Pressors as needed for hemodynamic support To maintain a mean arterial pressure of 65 mmHg Monitor hemoglobin DVT prophylaxis Critical care time 35 minutes Dietary Evaluation Review Comments: Nutrition Recommendation: 1) TPN to meet at least 75% estimated needs within 7 days 2) Monitor NPO status, lab values, wt trend, I/O Expected Outcomes/Goals: To meet >75% estimated needs Lab values to improve Fu 2-3 days Plan discussed with: Other (Rn) ROCIO ENNIS MD Jan 15, 2025 13:12
[2025-01-15 14:45] LABS: Lactic Acid w/Reflex 3.7 mmol/L (0.4-2.0)
--- NOTE | 2025-01-15 14:49 | DVHPN2 ---
Progress Note Date Seen: Jan 15, 2025 Has the PT tested + for MRSA If YES, has PT been informed?: No Medical Necessity Reason Pt with a Central, PICC or Fol: Yes The following are medically ne: Central Line, Leach Catheter Reason for leach catheter: Strict I&O Subjective Changes from previous H/P or p: No Changes Review of Systems: Deferred Objective vital signs Vital Sign Date Time Temp Pulse Resp B/P (MAP) Pulse Ox O2 Delivery O2 Flow Rate FiO2 01/15/25 13:57 69 26 144/61 (88) 99 30 01/15/25 09:15 98.4 209.1 01/15/25 08:00 Mechanical Ventilator+ 01/13/25 12:58 10.0 Total Intake and Output 01/14/25 01/14/25 01/15/25 15:00 23:00 07:00 Intake Total 1564 ml 1244 ml 1689.50 ml Output Total 2480 ml 1530 ml Balance 1564 ml -1236 ml 159.50 ml medications Current Medications Medications Dose Ordered Sig/Isaura Route Start Time Stop Time Status Last Admin Dose Admin Acetaminophen 650 mg Q6HP PRN PO 01/13/25 07:45 Diagnostic Test (Pha) 1 strip Q6HR 01/13/25 12:00 01/15/25 12:28 1 STRIP Insulin Human Regular Q6HR SC 01/13/25 12:00 01/15/25 13:10 8 UNITS Pantoprazole Sodium 40 mg DAILY IV 01/13/25 10:00 01/15/25 09:38 40 MG Cefazolin Sodium 50 ml @ 100 mls/hr Q8HR IV 01/13/25 14:00 UNV Metronidazole 100 ml @ 100 mls/hr Q8HR IV 01/13/25 14:00 01/15/25 05:06 100 MLS/HR Midazolam HCl 50 ml @ 1 mls/hr Q24H IV 01/13/25 13:30 01/14/25 05:05 1 MLS/HR Fentanyl Citrate 250 ml @ 2.5 mls/hr Q24H IV 01/13/25 13:30 01/14/25 23:31 5 MLS/HR Norepinephrine Bitartrate 250 ml @ 3.75 mls/hr Q24H IV 01/13/25 13:30 01/13/25 14:31 3.75 MLS/HR Piperacillin Sod/ Tazobactam Sod 100 ml @ 25 mls/hr Q12H IV 01/13/25 18:00 01/15/25 05:06 25 MLS/HR Vancomycin HCl 0 ml @ 0 mls/hr UD IV 01/13/25 15:00 Vasopressin 20 units/Sodium Chloride 100 ml @ 9 mls/hr Q11H7M IV 01/13/25 18:45 Vasopressin 20 units/Sodium Chloride 100 ml @ 9 mls/hr Q11H7M IV 01/13/25 18:45 UNV Phenylephrine HCl 250 ml @ 30 mls/hr Q8H20M IV 01/13/25 18:45 01/14/25 23:43 30 MLS/HR Sodium Bicarbonate 150 ml/Dextrose 1,150 ml @ 100 mls/hr [id number] IV 01/13/25 19:00 01/15/25 07:18 100 MLS/HR Fluconazole 100 ml @ 100 mls/hr DAILY@2000 IV 01/14/25 20:00 01/14/25 20:18 100 MLS/HR Examination: GENERAL:Abnormal, LUNGS:Abnormal, SKIN:Normal laboratory and microbiology Laboratory Tests 01/15/25 03:08 Test 01/15/25 03:08 Range/Units Serum Glucose 329 H 74-106 mg/dL Microbiology Date/Time Source Procedure Growth Status 01/13/25 17:10 Nose MRSA Screen - Final Complete 01/13/25 13:05 Sputum Gram Stain - Final Resulted 01/13/25 13:05 Sputum Respiratory Culture - Preliminary Resulted 01/13/25 11:42 Peritoneal Fluid Gram Stain - Final Resulted 01/13/25 11:42 Peritoneal Fluid Anaerobic Culture - Preliminary Resulted 01/13/25 11:42 Aerobic Culture - Preliminary Escherichia coli Klebsiella pneumoniae Resulted Problem List/Assessment/Plan Problem List/Assessment/Plan 80-year-old female presents to the hospital complaining of abdominal pain is diagnosed with abdominal perforation Acute kidney injury hemodynamically mediated Chronic kidney disease unspecified baseline unknown Acute perforation of the abdomen / bowel ischemia s/p exlap History of atrial fibrillation previously on anticoagulation 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 workup unclear anemia hyperkalemia metabolic acidosis intubated Rekha is improving IV fluid hydration Sodium bicarbonate IV drip strict Is&Os and monitoring urinary output seriologies for autoimmune hx RA + Rest of care as per primary medical team Plan discussed with: Other Dietary Evaluation Review Comments: Nutrition Recommendation: 1) TPN to meet at least 75% estimated needs within 7 days 2) Monitor NPO status, lab values, wt trend, I/O Expected Outcomes/Goals: To meet >75% estimated needs Lab values to improve Fu 2-3 days Critical Care Time (mins): 33 PATRICK RAMOS MD Jan 15, 2025 14:49
[2025-01-15] MEDS: SODIUM CHLORIDE 0.9% 500 ML IV ONE (15:15)
--- NOTE | 2025-01-15 16:06 | DVHPN2 ---
Progress Note Date Seen: Jan 15, 2025 Has the PT tested + for MRSA If YES, has PT been informed?: No Medical Necessity Reason Pt with a Central, PICC or Fol: Yes The following are medically ne: Central Line, Leach Catheter Reason for leach catheter: Strict I&O Subjective Patient reports: Other (Intubated and sedated.) Objective vital signs Vital Sign Date Time Temp Pulse Resp B/P (MAP) Pulse Ox O2 Delivery O2 Flow Rate FiO2 01/15/25 15:15 99.7 77 26 133/58 (83) 100 211.5 01/15/25 13:57 30 01/15/25 08:00 Mechanical Ventilator+ 01/13/25 12:58 10.0 Total Intake and Output 01/14/25 01/14/25 01/15/25 15:00 23:00 07:00 Intake Total 1564 ml 1244 ml 1689.50 ml Output Total 2480 ml 1530 ml Balance 1564 ml -1236 ml 159.50 ml medications Current Medications Medications Dose Ordered Sig/Isaura Route Start Time Stop Time Status Last Admin Dose Admin Acetaminophen 650 mg Q6HP PRN PO 01/13/25 07:45 Diagnostic Test (Pha) 1 strip Q6HR 01/13/25 12:00 01/15/25 12:28 1 STRIP Insulin Human Regular Q6HR SC 01/13/25 12:00 01/15/25 13:10 8 UNITS Pantoprazole Sodium 40 mg DAILY IV 01/13/25 10:00 01/15/25 09:38 40 MG Cefazolin Sodium 50 ml @ 100 mls/hr Q8HR IV 01/13/25 14:00 UNV Metronidazole 100 ml @ 100 mls/hr Q8HR IV 01/13/25 14:00 01/15/25 15:46 100 MLS/HR Midazolam HCl 50 ml @ 1 mls/hr Q24H IV 01/13/25 13:30 01/14/25 05:05 1 MLS/HR Fentanyl Citrate 250 ml @ 2.5 mls/hr Q24H IV 01/13/25 13:30 01/14/25 23:31 5 MLS/HR Norepinephrine Bitartrate 250 ml @ 3.75 mls/hr Q24H IV 01/13/25 13:30 01/13/25 14:31 3.75 MLS/HR Piperacillin Sod/ Tazobactam Sod 100 ml @ 25 mls/hr Q12H IV 01/13/25 18:00 01/15/25 05:06 25 MLS/HR Vancomycin HCl 0 ml @ 0 mls/hr UD IV 01/13/25 15:00 Vasopressin 20 units/Sodium Chloride 100 ml @ 9 mls/hr Q11H7M IV 01/13/25 18:45 Vasopressin 20 units/Sodium Chloride 100 ml @ 9 mls/hr Q11H7M IV 01/13/25 18:45 UNV Phenylephrine HCl 250 ml @ 30 mls/hr Q8H20M IV 01/13/25 18:45 01/14/25 23:43 30 MLS/HR Sodium Bicarbonate 150 ml/Dextrose 1,150 ml @ 100 mls/hr [id number] IV 01/13/25 19:00 01/15/25 07:18 100 MLS/HR Fluconazole 100 ml @ 100 mls/hr DAILY@1999 IV 01/14/25 20:00 01/14/25 20:18 100 MLS/HR Examination Generally-80 years old, resting in bed. No apparent distress intubated HEENT-atraumatic, normocephalic Heart-regular rate and rhythm lungs-breath sounds bilaterally Abdomen soft nontender nondistended . b/l taty tube draining serous fluids Musculoskeletal-no edema cyanosis Neuro- intubated and sedated laboratory and microbiology Laboratory Tests 01/15/25 03:08 Test 01/15/25 03:08 Range/Units Serum Glucose 329 H 74-106 mg/dL Microbiology Date/Time Source Procedure Growth Status 01/13/25 17:10 Nose MRSA Screen - Final Complete 01/13/25 13:05 Sputum Gram Stain - Final Resulted 01/13/25 13:05 Sputum Respiratory Culture - Preliminary Resulted 01/13/25 11:42 Peritoneal Fluid Gram Stain - Final Resulted 01/13/25 11:42 Peritoneal Fluid Anaerobic Culture - Preliminary Resulted 01/13/25 11:42 Aerobic Culture - Preliminary Escherichia coli Klebsiella pneumoniae Resulted Problem List/Assessment/Plan Problems(with codes): (1) Acute renal injury (2) Intestinal perforation Problem List/Assessment/Plan NEURO: Acute metabolic encephalopathy secondary to acute hypoxic respiratory failure Status post intubation RASS score: -3 Daily SBT, SAT CARDIOVASCULAR: Septic shock secondary to perforation of the hollow viscus Paroxysmal atrial fibrillation with secondary hypercoagulable state - echo normal EF - Chest xray demonstrated bibasilar atelectasis - [id number] score more than 5 - continue Lovenox 60 mg daily - Follow up with the lactic acid level. Continue to trend until normalize PULMONARY: Acute hypoxic respiratory failure GASTROINTESTINAL: Perforation of the small bowel, status post exploratory laparotomy Transaminitis secondary to shock GENITOURINARY: ISRRAEL on CKD secondary to shock/VMN ENDOCRINE: History of hypothyroidism Type 2 diabetes mellitus, hemoglobin A1c 8.2 - mild sliding scale of insulin METABOLIC: Hyperkalemia secondary to ISRRAEL Moderate protein calorie malnutrition, albumin 2.6 Anion gap metabolic acidosis secondary to bowel ischemia leading to lactic acidosis - Patient is on sodium bicarb drip at 100 mL/hours HEME: Acute on chronic anemia secondary to hemodilution/post surgical - 1 unit PRBC given - H&H is stable INFECTIOUS DISEASE: Sepsis with septic shock secondary to perforation of the small bowel - cultures are pending - continue IV vancomycin, Zosyn, metronidazole and fluconazole DIET: NPO DVT prophylax: Lovenox GI prophylaxis: Pantoprazole Bowel regimen: Code status: Full code LINES/DRAINS/ACCESS: ETT: Intubated on 01/14/25 IV access: Left IJ placed on 01/14/2025 Drips: Phenylephrine, Versed and fentanyl Leach catheter: Placed on 0 10/03 Plan discussed with: Other My Orders My Orders Orders - ASHLEY CASTRO MD Procedure Category Date Status Time Sodium Chloride 0.9% PHA 01/15/25 In Process 15:15 Lactic Acid W/ Reflex LAB 01/15/25 Logged Order 16:30 Dietary Evaluation Review Comments: Nutrition Recommendation: 1) TPN to meet at least 75% estimated needs within 7 days 2) Monitor NPO status, lab values, wt trend, I/O Expected Outcomes/Goals: To meet >75% estimated needs Lab values to improve Fu 2-3 days Date of Service: Jan 15, 2025 Billing Provider: ASHLEY CASTRO MD Common Visit Codes: [id number] CARE 30-74 MIN ASHLEY CASTRO MD Jan 15, 2025 16:06
[2025-01-15] MEDS: VANCOMYCIN 500mg/100mL 100 ML IV ONE (17:00)
[2025-01-15 17:03] LABS: Hematocrit 23.9 % (36.0-46.0); Hemoglobin 8.2 g/dL (12.2-16.2); Mean Corpuscular Hemoglobin 29.1 pg (28.0-32.0); Mean Corpuscular Volume 85.0 fL (80.0-100.0); Nucleated Red Blood Cells % 0.2 %
[2025-01-15 18:26] LABS: Lactic Acid w/Reflex 3.1 mmol/L (0.4-2.0)
[2025-01-15 23:49] LABS: Lactic Acid w/Reflex 3.0 mmol/L (0.4-2.0)
[2025-01-16] VITALS (108 sets, daily range): BP systolic 81–164; BP diastolic 39–120; PULSE 51–80; RESP 12–26; TEMP 97.2–99.1; O2SAT 95–100
[2025-01-16 04:12] LABS: Hemoglobin 8.6 g/dL (12.2-16.2)
[2025-01-16 04:15] LABS: Hematocrit 24.5 % (36.0-46.0); Mean Corpuscular Hemoglobin 29.9 pg (28.0-32.0); Mean Corpuscular Volume 84.9 fL (80.0-100.0)
[2025-01-16 04:24] LABS: Alanine Aminotransferase 16 U/L (7-40); Alkaline Phosphatase 115 U/L (46-116); Anion Gap 11 (5-15); BUN/Creatinine Ratio 31.5 (10.0-20.0); Bilirubin, Total 1.0 mg/dL (0.2-1.0)
[2025-01-16 04:45] LABS: Albumin 2.0 g/dL (3.2-4.8); Blood Urea Nitrogen 56 mg/dL (9-23); Calcium 7.2 mg/dL (8.7-10.4); Carbon Dioxide 37 mmol/L (20-31); Chloride 97 mmol/L (98-107); Glucose 312 mg/dL (74-106); Potassium 2.7 mmol/L (3.5-5.1); Sodium 145 mmol/L (136-145); Total Protein 3.8 g/dL (5.7-8.2)
[2025-01-16 05:19] LABS: Total Cells Counted 100.0 (100)
[2025-01-16] MEDS: POTASSIUM CHL 20MEQ/100ML 100 ML IV SCH (05:29)
--- NOTE | 2025-01-16 05:37 | DVH ---
CHEST RADIOGRAPH Indication: Intubated Technique: Single frontal view of the chest was obtained COMPARISON: XY CHEST PORTABLE on DOS: 01/15/25, XY CHEST PORTABLE on DOS: 01/14/25, XY CHEST PORTABLE on DOS: 01/13/25, XY CHEST XRAY 1 VIEW on DOS: 01/13/25, XY CHEST PORTABLE on DOS: 01/13/25 FINDINGS: Lines and Tubes: Unchanged. Lungs: Mildly progressive bibasilar pulmonary airspace disease and small bilateral pleural effusions. No pneumothorax. Cardiomediastinal contours: Cardiomegaly. Bones: Unremarkable IMPRESSION: 1. Mildly progressive bibasilar pulmonary airspace disease and small bilateral pleural effusions. 2. Cardiomegaly. 3. Lines and tubes unchanged.
[2025-01-16 08:46] LABS: Base Excess 9.7 mmol/L (-2.0-3.0)
--- NOTE | 2025-01-16 09:15 | DVHPN2 ---
Consult Progress Note Subjective Review of Systems: Not Done (sedated intubated) Objective vital signs Vital Sign Date Time Temp Pulse Resp B/P (MAP) Pulse Ox O2 Delivery O2 Flow Rate FiO2 01/16/25 08:24 122/87 01/16/25 08:01 62 26 98 30 01/16/25 07:00 97.9 208.2 01/16/25 06:00 Mechanical Ventilator+ Total Intake and Output 01/15/25 01/15/25 01/16/25 15:00 23:00 07:00 Intake Total 910 ml 1246 ml 846 ml Output Total 1450 ml 930 ml Balance 910 ml -204 ml -84 ml medications Current Medications Medications Dose Ordered Sig/Isaura Route Start Time Stop Time Status Last Admin Dose Admin Acetaminophen 650 mg Q6HP PRN PO 01/13/25 07:45 Diagnostic Test (Pha) 1 strip Q6HR 01/13/25 12:00 01/16/25 05:41 1 STRIP Insulin Human Regular Q6HR SC 01/13/25 12:00 01/16/25 05:38 6 UNITS Pantoprazole Sodium 40 mg DAILY IV 01/13/25 10:00 01/15/25 09:38 40 MG Cefazolin Sodium 50 ml @ 100 mls/hr Q8HR IV 01/13/25 14:00 UNV Metronidazole 100 ml @ 100 mls/hr Q8HR IV 01/13/25 14:00 01/16/25 05:29 100 MLS/HR Midazolam HCl 50 ml @ 1 mls/hr Q24H IV 01/13/25 13:30 01/16/25 08:24 1 MLS/HR Fentanyl Citrate 250 ml @ 2.5 mls/hr Q24H IV 01/13/25 13:30 01/14/25 23:31 5 MLS/HR Norepinephrine Bitartrate 250 ml @ 3.75 mls/hr Q24H IV 01/13/25 13:30 01/13/25 14:31 3.75 MLS/HR Piperacillin Sod/ Tazobactam Sod 100 ml @ 25 mls/hr Q12H IV 01/13/25 18:00 01/16/25 06:30 25 MLS/HR Vancomycin HCl 0 ml @ 0 mls/hr UD IV 01/13/25 15:00 Vasopressin 20 units/Sodium Chloride 100 ml @ 9 mls/hr Q11H7M IV 01/13/25 18:45 Vasopressin 20 units/Sodium Chloride 100 ml @ 9 mls/hr Q11H7M IV 01/13/25 18:45 UNV Phenylephrine HCl 250 ml @ 30 mls/hr Q8H20M IV 01/13/25 18:45 01/14/25 23:43 30 MLS/HR Sodium Bicarbonate 150 ml/Dextrose 1,150 ml @ 100 mls/hr [id number] IV 01/13/25 19:00 01/15/25 23:41 100 MLS/HR Fluconazole 100 ml @ 100 mls/hr DAILY@2000 IV 01/14/25 20:00 01/15/25 20:25 100 MLS/HR Potassium Chloride 100 ml @ 50 mls/hr Q2H IV 01/16/25 05:30 01/16/25 11:29 01/16/25 08:23 50 MLS/HR laboratory and microbiology Laboratory Tests 01/16/25 03:44 Test 01/16/25 03:44 Range/Units Serum Glucose 312 H 74-106 mg/dL Problem List/Assessment/Plan Problem List/Assessment/Plan Problem List/Assessment/Plan Paroxysmal atrial fibrillation, Stage 3A (on low-dose Eliquis) Septic shock Rule out structural heart disease Acute peritonitis with perforated bowel status post exploratory laparotomy Acute anemia requiring PRBC transfusion Hypertriglyceridemia, newly diagnosed Acute kidney injury Thyroid disease Type 2 diabetes mellitus, uncontrolled (Hgb A1c 8.2%) Obesity Plan/Recommendations (Dr. Ann): EF 65% on echo, mild LV diastolic dysfunction. No significant valvular structural abnormalities noted. Continues to be intubated FiO2 30%. The patient has a known history of atrial fibrillation and takes low-dose Eliquis at home, currently sinus rhythm with PACs.. [id number] VASc score: 5 points, HAS-BLED score: 1 point. Anticoagulation held due to hemoglobin drop needing PRBC transfusion. Consider restarting DOAC therapy with stable hemoglobin and hematocrit level and no signs of active bleeding once cleared by surgery. In the meantime, continue with SCDs. Levophed off. BP stable. Continue with close cardiac surveillance and notify cardiology team for any ECG changes. Thank you for allowing us to care for this patient. Please call with any questions or concerns. Plan discussed with: Other Dietary Evaluation Review Comments: Nutrition Recommendation: 1) TPN to meet at least 75% estimated needs within 7 days 2) Monitor NPO status, lab values, wt trend, I/O Expected Outcomes/Goals: To meet >75% estimated needs Lab values to improve Fu 2-3 days Date of Service: Jan 16, 2025 Billing Provider: CRISELDA SABILLON Common Visit Codes: [id number] INP/OBS CARE(HIGH) CRISELDA SABILLON Jan 16, 2025 09:15
[2025-01-16] MEDS ORDERED: SOD CHL 0.45% 1,000 ML IV ONE (10:15)
[2025-01-16] MEDS: SODIUM CHLORIDE 0.9% 1,000 ML IV SCH (10:30)
--- NOTE | 2025-01-16 10:57 | DVHPN2 ---
Progress Note Date Seen: Jan 16, 2025 Has the PT tested + for MRSA If YES, has PT been informed?: No Medical Necessity Reason Pt with a Central, PICC or Fol: Yes The following are medically ne: Central Line, Leach Catheter Reason for leach catheter: Strict I&O Objective vital signs Vital Sign Date Time Temp Pulse Resp B/P (MAP) Pulse Ox O2 Delivery O2 Flow Rate FiO2 01/16/25 10:18 63 12 145/74 (97) 98 30 01/16/25 07:00 97.9 208.2 01/16/25 06:00 Mechanical Ventilator+ Total Intake and Output 01/15/25 01/15/25 01/16/25 15:00 23:00 07:00 Intake Total 910 ml 1246 ml 846 ml Output Total 1450 ml 930 ml Balance 910 ml -204 ml -84 ml medications Current Medications Medications Dose Ordered Sig/Isaura Route Start Time Stop Time Status Last Admin Dose Admin Acetaminophen 650 mg Q6HP PRN PO 01/13/25 07:45 Diagnostic Test (Pha) 1 strip Q6HR 01/13/25 12:00 01/16/25 05:41 1 STRIP Insulin Human Regular Q6HR SC 01/13/25 12:00 01/16/25 05:38 6 UNITS Pantoprazole Sodium 40 mg DAILY IV 01/13/25 10:00 01/16/25 09:52 40 MG Cefazolin Sodium 50 ml @ 100 mls/hr Q8HR IV 01/13/25 14:00 UNV Metronidazole 100 ml @ 100 mls/hr Q8HR IV 01/13/25 14:00 01/16/25 05:29 100 MLS/HR Midazolam HCl 50 ml @ 1 mls/hr Q24H IV 01/13/25 13:30 01/16/25 08:24 1 MLS/HR Fentanyl Citrate 250 ml @ 2.5 mls/hr Q24H IV 01/13/25 13:30 01/14/25 23:31 5 MLS/HR Norepinephrine Bitartrate 250 ml @ 3.75 mls/hr Q24H IV 01/13/25 13:30 01/13/25 14:31 3.75 MLS/HR Piperacillin Sod/ Tazobactam Sod 100 ml @ 25 mls/hr Q12H IV 01/13/25 18:00 01/16/25 06:30 25 MLS/HR Vancomycin HCl 0 ml @ 0 mls/hr UD IV 01/13/25 15:00 Vasopressin 20 units/Sodium Chloride 100 ml @ 9 mls/hr Q11H7M IV 01/13/25 18:45 Vasopressin 20 units/Sodium Chloride 100 ml @ 9 mls/hr Q11H7M IV 01/13/25 18:45 UNV Phenylephrine HCl 250 ml @ 30 mls/hr Q8H20M IV 01/13/25 18:45 01/14/25 23:43 30 MLS/HR Fluconazole 100 ml @ 100 mls/hr DAILY@2000 IV 01/14/25 20:00 01/15/25 20:25 100 MLS/HR Potassium Chloride 100 ml @ 50 mls/hr Q2H IV 01/16/25 05:30 01/16/25 11:29 01/16/25 09:49 50 MLS/HR Sodium Chloride 1,000 ml @ 100 mls/hr Q10H IV 01/16/25 10:30 UNV laboratory and microbiology Laboratory Tests 01/16/25 03:44 Test 01/16/25 03:44 Range/Units Serum Glucose 312 H 74-106 mg/dL Problem List/Assessment/Plan Problem List/Assessment/Plan 01/14/25 afebrile, low dose BP support, received transfusion, I believe her decreased hematocrit is due to hemodilution. abdomen non distended, soft, wound clean and well approximated, drainage serous . remains intubated and sedated 01/16/25 ALKALOSIS, ABDOMEN NON DISTENDED, SOFT, DRAINAGE SEROUS, WOUND CLEAN AND WELL APPROXIMATED Plan discussed with: Other Dietary Evaluation Review Comments: Nutrition Recommendation: 1) TPN to meet at least 75% estimated needs within 7 days 2) Monitor NPO status, lab values, wt trend, I/O Expected Outcomes/Goals: To meet >75% estimated needs Lab values to improve Fu 2-3 days MELVA RAMESH MD Jan 16, 2025 10:57
[2025-01-16] MEDS: ALBUMIN 25% 50 ML IV ONE (11:15)
[2025-01-16] MEDS ORDERED: ALBUMIN 25% 50 ML IV ONE (11:15)
[2025-01-16] MEDS ORDERED: TPN PER PHARMACY 0 ML IV SCH (11:15)
[2025-01-16] MEDS: ALBUMIN 25% 50 ML IV SCH (11:40)
--- NOTE | 2025-01-16 11:53 | DVHPN2 ---
Progress Note Date Seen: Jan 16, 2025 Has the PT tested + for MRSA If YES, has PT been informed?: No Medical Necessity Reason Pt with a Central, PICC or Fol: Yes The following are medically ne: Central Line, Leach Catheter Reason for leach catheter: Strict I&O Subjective Review of Systems: Deferred Objective vital signs Vital Sign Date Time Temp Pulse Resp B/P (MAP) Pulse Ox O2 Delivery O2 Flow Rate FiO2 01/16/25 11:36 73 12 113/46 (68) 100 30 01/16/25 07:00 97.9 208.2 01/16/25 06:00 Mechanical Ventilator+ Total Intake and Output 01/15/25 01/15/25 01/16/25 15:00 23:00 07:00 Intake Total 910 ml 1246 ml 846 ml Output Total 1450 ml 930 ml Balance 910 ml -204 ml -84 ml medications Current Medications Medications Dose Ordered Sig/Isaura Route Start Time Stop Time Status Last Admin Dose Admin Acetaminophen 650 mg Q6HP PRN PO 01/13/25 07:45 Pantoprazole Sodium 40 mg DAILY IV 01/13/25 10:00 01/16/25 09:52 40 MG Cefazolin Sodium 50 ml @ 100 mls/hr Q8HR IV 01/13/25 14:00 UNV Metronidazole 100 ml @ 100 mls/hr Q8HR IV 01/13/25 14:00 01/16/25 05:29 100 MLS/HR Midazolam HCl 50 ml @ 1 mls/hr Q24H IV 01/13/25 13:30 01/16/25 08:24 1 MLS/HR Fentanyl Citrate 250 ml @ 2.5 mls/hr Q24H IV 01/13/25 13:30 01/14/25 23:31 5 MLS/HR Norepinephrine Bitartrate 250 ml @ 3.75 mls/hr Q24H IV 01/13/25 13:30 01/13/25 14:31 3.75 MLS/HR Piperacillin Sod/ Tazobactam Sod 100 ml @ 25 mls/hr Q12H IV 01/13/25 18:00 01/16/25 06:30 25 MLS/HR Vancomycin HCl 0 ml @ 0 mls/hr UD IV 01/13/25 15:00 Vasopressin 20 units/Sodium Chloride 100 ml @ 9 mls/hr Q11H7M IV 01/13/25 18:45 Vasopressin 20 units/Sodium Chloride 100 ml @ 9 mls/hr Q11H7M IV 01/13/25 18:45 UNV Phenylephrine HCl 250 ml @ 30 mls/hr Q8H20M IV 01/13/25 18:45 01/14/25 23:43 30 MLS/HR Fluconazole 100 ml @ 100 mls/hr DAILY@2000 IV 01/14/25 20:00 01/15/25 20:25 100 MLS/HR Sodium Chloride 1,000 ml @ 100 mls/hr Q10H IV 01/16/25 10:30 01/16/25 10:30 100 MLS/HR Albumin Human 50 ml @ 100 mls/hr Q8H IV 01/16/25 11:00 01/17/25 03:29 01/16/25 11:40 100 MLS/HR Amino Acids 0 ml @ 0 mls/hr PER PHARMACY IV 01/16/25 11:15 Diagnostic Test (Pha) 1 strip Q6HR 01/16/25 12:00 Insulin Human Regular FOLLOW SLIDING SCALE Q6HR SC 01/16/25 12:00 Dextrose 50 ml UD IV 01/16/25 12:00 Examination: GENERAL:Normal, LUNGS:Abnormal, ABDOMEN:Abnormal laboratory and microbiology Laboratory Tests 01/16/25 03:44 Test 01/16/25 03:44 Range/Units Serum Glucose 312 H 74-106 mg/dL Microbiology Date/Time Source Procedure Growth Status 01/13/25 17:10 Nose MRSA Screen - Final Complete 01/13/25 13:05 Sputum Gram Stain - Final Complete 01/13/25 13:05 Sputum Respiratory Culture - Final Complete 01/13/25 11:42 Peritoneal Fluid Gram Stain - Final Resulted 01/13/25 11:42 Peritoneal Fluid Anaerobic Culture - Preliminary Resulted 01/13/25 11:42 Aerobic Culture - Preliminary Escherichia coli Klebsiella pneumoniae Resulted Problem List/Assessment/Plan Problem List/Assessment/Plan 80-year-old female presents to the hospital complaining of abdominal pain is diagnosed with abdominal perforation Acute kidney injury hemodynamically mediated Chronic kidney disease unspecified baseline unknown Acute perforation of the abdomen / bowel ischemia s/p exlap History of atrial fibrillation previously on anticoagulation 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 , RA + anemia hyperkalemia-----> hypokalemia metabolic acidosis------>>> now was metabolic alkalosis intubated Rekha is improving IV fluid hydration , change to NS monitor h/h keep hb >8.0 potassium replacement strict Is&Os and monitoring urinary output seriologies for autoimmune hx RA + Rest of care as per primary medical team and surgery team Plan discussed with: Other (nurse) Dietary Evaluation Review Comments: Nutrition Recommendation: 1) TPN to meet at least 75% estimated needs within 7 days 2) Monitor NPO status, lab values, wt trend, I/O Expected Outcomes/Goals: To meet >75% estimated needs Lab values to improve Fu 2-3 days Critical Care Time (mins): 33 PATRICK RAMOS MD Jan 16, 2025 11:53
[2025-01-16] MEDS ORDERED: DEXTROSE (50%) 50ML SYRG IV SCH (12:00)
[2025-01-16] MEDS: ACCU-CHEK COMFORT CURVE STRIP VI SCH (12:00)
[2025-01-16 12:09] LABS: Base Excess 12.6 mmol/L (-2.0-3.0)
[2025-01-16 12:24] LABS: Triglycerides 245.0 mg/dL (< 150)
[2025-01-16 12:27] LABS: Lactic Acid w/Reflex 2.6 mmol/L (0.4-2.0)
[2025-01-16] MEDS ORDERED: POTASSIUM CHL 20MEQ/100ML 100 ML IV ONE (12:45)
[2025-01-16] MEDS ORDERED: POTASSIUM CHL 20MEQ/100ML 100 ML IV SCH (12:45)
--- NOTE | 2025-01-16 12:54 | DVHPN2 ---
Progress Note - Dictate Date Seen: Jan 16, 2025 Has the PT tested + for MRSA If YES, has PT been informed?: No Medical Necessity Reason Pt with a Central, PICC or Fol: Yes The following are medically ne: Central Line, Leach Catheter Reason for leach catheter: Strict I&O vital signs Vital Sign Date Time Temp Pulse Resp B/P (MAP) Pulse Ox O2 Delivery O2 Flow Rate FiO2 01/16/25 11:36 73 12 113/46 (68) 100 30 01/16/25 07:00 97.9 208.2 01/16/25 06:00 Mechanical Ventilator+ Total Intake and Output 01/15/25 01/15/25 01/16/25 15:00 23:00 07:00 Intake Total 910 ml 1246 ml 846 ml Output Total 1450 ml 930 ml Balance 910 ml -204 ml -84 ml medications Current Medications Medications Dose Ordered Sig/Isaura Route Start Time Stop Time Status Last Admin Dose Admin Acetaminophen 650 mg Q6HP PRN PO 01/13/25 07:45 Pantoprazole Sodium 40 mg DAILY IV 01/13/25 10:00 01/16/25 09:52 40 MG Cefazolin Sodium 50 ml @ 100 mls/hr Q8HR IV 01/13/25 14:00 UNV Metronidazole 100 ml @ 100 mls/hr Q8HR IV 01/13/25 14:00 01/16/25 05:29 100 MLS/HR Midazolam HCl 50 ml @ 1 mls/hr Q24H IV 01/13/25 13:30 01/16/25 08:24 1 MLS/HR Fentanyl Citrate 250 ml @ 2.5 mls/hr Q24H IV 01/13/25 13:30 01/14/25 23:31 5 MLS/HR Norepinephrine Bitartrate 250 ml @ 3.75 mls/hr Q24H IV 01/13/25 13:30 01/13/25 14:31 3.75 MLS/HR Piperacillin Sod/ Tazobactam Sod 100 ml @ 25 mls/hr Q12H IV 01/13/25 18:00 01/16/25 06:30 25 MLS/HR Vancomycin HCl 0 ml @ 0 mls/hr UD IV 01/13/25 15:00 Vasopressin 20 units/Sodium Chloride 100 ml @ 9 mls/hr Q11H7M IV 01/13/25 18:45 Vasopressin 20 units/Sodium Chloride 100 ml @ 9 mls/hr Q11H7M IV 01/13/25 18:45 UNV Phenylephrine HCl 250 ml @ 30 mls/hr Q8H20M IV 01/13/25 18:45 01/14/25 23:43 30 MLS/HR Fluconazole 100 ml @ 100 mls/hr DAILY@2000 IV 01/14/25 20:00 01/15/25 20:25 100 MLS/HR Sodium Chloride 1,000 ml @ 100 mls/hr Q10H IV 01/16/25 10:30 01/16/25 10:30 100 MLS/HR Albumin Human 50 ml @ 100 mls/hr Q8H IV 01/16/25 11:00 01/17/25 03:29 01/16/25 11:40 100 MLS/HR Amino Acids 0 ml @ 0 mls/hr PER PHARMACY IV 01/16/25 11:15 Diagnostic Test (Pha) 1 strip Q6HR 01/16/25 12:00 01/16/25 12:00 1 STRIP Insulin Human Regular FOLLOW SLIDING SCALE Q6HR SC 01/16/25 12:00 Dextrose 50 ml UD IV 01/16/25 12:00 Fat Emulsion Intravenous 50 ml/ Potassium Chloride 60 meq/ Potassium Phosphate 22 meq/ Calcium Gluconate 4.65 meq/ Magnesium Sulfate 12 meq/ Multivitamins 10 ml/Chromium/ Copper/Manganese/ Zinc 1 ml/Insulin Human Regular 8 units/Amino Acids/ Dextrose/Purified Water 1,159.08 ml @ 48 mls/hr Q24H9M IV 01/16/25 22:00 01/17/25 21:59 Potassium Chloride 100 ml @ 50 mls/hr Q2H IV 01/16/25 12:45 01/16/25 18:44 UNV laboratory and microbiology Laboratory Tests 01/16/25 03:44 Test 01/16/25 03:44 Range/Units Serum Glucose 312 H 74-106 mg/dL Assessment/Plan 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 Impression Acute hypoxemic respiratory failure Bowel perforation S/p resection Sepsis ISRRAEL Patient seen and examined in ICU Events On mechanical ventilation S/p intubation PEEP 5, FiO2 30% S/p resection and colostomy ABG reviewed pH 7.72, pCO2 23, pO2 60 Previously on bicarb drip, now discontinued Cased discussed with surgery Management Vent support Titrate to maintain sats 90% or above Sedation holiday daily If patient follows commands, proceed to weaning trial Pressure support 11/13, extubate when ready Continue antibiotics F/u cultures Bronchodilators Monitor renal function Monitor electrolytes Supplement as needed Pressors as needed for hemodynamic support To maintain a mean arterial pressure of 65 mmHg Monitor hemoglobin DVT prophylaxis Critical care time 35 minutes Dietary Evaluation Review Comments: Nutrition Recommendation: 1) TPN to meet at least 75% estimated needs within 7 days 2) Monitor NPO status, lab values, wt trend, I/O Expected Outcomes/Goals: To meet >75% estimated needs Lab values to improve Fu 2-3 days Plan discussed with: Other (Rn) ROCIO ENNIS MD Jan 16, 2025 12:54
[2025-01-16] MEDS: InsuLIN REG 1unit/0.01ml Soln (100units/ml) SC SCH (13:14)
[2025-01-16] MEDS: MAGNESIUM SULFATE 1GM/100ML 100 ML IV SCH (13:29)
--- NOTE | 2025-01-16 13:31 | DVHPN2 ---
Progress Note Date Seen: Jan 16, 2025 Has the PT tested + for MRSA If YES, has PT been informed?: No Medical Necessity Reason Pt with a Central, PICC or Fol: Yes The following are medically ne: Central Line, Leach Catheter Reason for leach catheter: Strict I&O Subjective Patient reports: No new complaints (Patient is intubated and sedated. Worsening thrombocytopenia today. Renal function is improving. Hematology oncology consult for severe thrombocytopenia. Transfusing platelets. Monitor for bleeding) Objective vital signs Vital Sign Date Time Temp Pulse Resp B/P (MAP) Pulse Ox O2 Delivery O2 Flow Rate FiO2 01/16/25 11:36 73 12 113/46 (68) 100 30 01/16/25 07:00 97.9 208.2 01/16/25 06:00 Mechanical Ventilator+ Total Intake and Output 01/15/25 01/15/25 01/16/25 15:00 23:00 07:00 Intake Total 910 ml 1246 ml 846 ml Output Total 1450 ml 930 ml Balance 910 ml -204 ml -84 ml medications Current Medications Medications Dose Ordered Sig/Isaura Route Start Time Stop Time Status Last Admin Dose Admin Acetaminophen 650 mg Q6HP PRN PO 01/13/25 07:45 Pantoprazole Sodium 40 mg DAILY IV 01/13/25 10:00 01/16/25 09:52 40 MG Cefazolin Sodium 50 ml @ 100 mls/hr Q8HR IV 01/13/25 14:00 UNV Metronidazole 100 ml @ 100 mls/hr Q8HR IV 01/13/25 14:00 01/16/25 05:29 100 MLS/HR Midazolam HCl 50 ml @ 1 mls/hr Q24H IV 01/13/25 13:30 01/16/25 08:24 1 MLS/HR Fentanyl Citrate 250 ml @ 2.5 mls/hr Q24H IV 01/13/25 13:30 01/14/25 23:31 5 MLS/HR Norepinephrine Bitartrate 250 ml @ 3.75 mls/hr Q24H IV 01/13/25 13:30 01/13/25 14:31 3.75 MLS/HR Piperacillin Sod/ Tazobactam Sod 100 ml @ 25 mls/hr Q12H IV 01/13/25 18:00 01/16/25 06:30 25 MLS/HR Vancomycin HCl 0 ml @ 0 mls/hr UD IV 01/13/25 15:00 Vasopressin 20 units/Sodium Chloride 100 ml @ 9 mls/hr Q11H7M IV 01/13/25 18:45 Vasopressin 20 units/Sodium Chloride 100 ml @ 9 mls/hr Q11H7M IV 01/13/25 18:45 UNV Phenylephrine HCl 250 ml @ 30 mls/hr Q8H20M IV 01/13/25 18:45 01/14/25 23:43 30 MLS/HR Fluconazole 100 ml @ 100 mls/hr DAILY@2000 IV 01/14/25 20:00 01/15/25 20:25 100 MLS/HR Sodium Chloride 1,000 ml @ 100 mls/hr Q10H IV 01/16/25 10:30 01/16/25 10:30 100 MLS/HR Albumin Human 50 ml @ 100 mls/hr Q8H IV 01/16/25 11:00 01/17/25 03:29 01/16/25 11:40 100 MLS/HR Amino Acids 0 ml @ 0 mls/hr PER PHARMACY IV 01/16/25 11:15 Diagnostic Test (Pha) 1 strip Q6HR 01/16/25 12:00 01/16/25 12:00 1 STRIP Insulin Human Regular FOLLOW SLIDING SCALE Q6HR SC 01/16/25 12:00 01/16/25 13:14 12 UNITS Dextrose 50 ml UD IV 01/16/25 12:00 Fat Emulsion Intravenous 50 ml/ Potassium Chloride 60 meq/ Potassium Phosphate 22 meq/ Calcium Gluconate 4.65 meq/ Magnesium Sulfate 12 meq/ Multivitamins 10 ml/Chromium/ Copper/Manganese/ Zinc 1 ml/Insulin Human Regular 8 units/Amino Acids/ Dextrose/Purified Water 1,159.08 ml @ 48 mls/hr Q24H9M IV 01/16/25 22:00 01/17/25 21:59 Potassium Chloride 100 ml @ 50 mls/hr Q2H IV 01/16/25 12:45 01/16/25 18:44 UNV Magnesium Sulfate/ Dextrose 100 ml @ 100 mls/hr Q1HR IV 01/16/25 14:00 01/16/25 15:59 Examination Generally 77 years old woman, well nourished well developed. Intubated and sedated with the NG tube intact HEENT-atraumatic normocephalic Heart-regular rate and rhythm Lungs-decreased breath sounds bilaterally Abdomen soft the, nontender nondistended. Possible surgical site hand Musculoskeletal-pedal edema Neuro-intubated and sedated laboratory and microbiology Laboratory Tests 01/16/25 03:44 Test 01/16/25 03:44 Range/Units Serum Glucose 312 H 74-106 mg/dL Microbiology Date/Time Source Procedure Growth Status 01/13/25 17:10 Nose MRSA Screen - Final Complete 01/13/25 13:05 Sputum Gram Stain - Final Complete 01/13/25 13:05 Sputum Respiratory Culture - Final Complete 01/13/25 11:42 Peritoneal Fluid Gram Stain - Final Resulted 01/13/25 11:42 Peritoneal Fluid Anaerobic Culture - Preliminary Resulted 01/13/25 11:42 Aerobic Culture - Preliminary Escherichia coli Klebsiella pneumoniae Resulted Labs and/or images reviewed: Labs reviewed by me, Image(s) reviewed by me Problem List/Assessment/Plan Problem List/Assessment/Plan NEURO: Acute metabolic encephalopathy secondary to acute hypoxic respiratory failure Status post intubation RASS score: -3 Daily SBT, SAT CARDIOVASCULAR: Septic shock secondary to perforation of the hollow viscus Paroxysmal atrial fibrillation with secondary hypercoagulable state - echo normal EF - Chest xray demonstrated bibasilar atelectasis - [id number] score more than 5 - discontinue Lovenox in view of thrombocytopenia - Follow up with the lactic acid level. Continue to trend until normalize - PULMONARY: Acute hypoxic respiratory failure On bed PULM regular appreciated Daily SBT, SAD GASTROINTESTINAL: Perforation of the small bowel, status post exploratory laparotomy Transaminitis secondary to shock Surgery regular appreciated. GENITOURINARY: ISRRAEL on CKD secondary to shock/VMN Nephrology recommendation appreciated. Renal function is improving ENDOCRINE: History of hypothyroidism Type 2 diabetes mellitus, hemoglobin A1c 8.2 - mild sliding scale of insulin METABOLIC: Hyperkalemia secondary to ISRRAEL Moderate protein calorie malnutrition, Anion gap metabolic acidosis secondary to bowel ischemia leading to lactic acidosis ABG shows metabolic alkalosis. Discontinue bicarb drip NS for hydration HEME: Acute on chronic anemia secondary to hemodilution/post surgical Thrombocytopenia severe - 1 unit PRBC given - H&H is stable - transfuse palate. Goal [place] [id number] Consult hematology oncology for severe thrombocytopenia INFECTIOUS DISEASE: Sepsis with septic shock secondary to perforation of the small bowel - cultures are pending - continue IV vancomycin, Zosyn, metronidazole and fluconazole DIET: NPO DVT prophylax: scd GI prophylaxis: Pantoprazole Bowel regimen: Code status: Full code Plan discussed with: Other (no family at bedside) My Orders My Orders Orders - ASHLEY CASTRO MD Procedure Category Date Status Time Comprehensive LAB 01/17/25 Verified Metabolic Panel 05:00 Comprehensive LAB 01/18/25 Verified Metabolic Panel 05:00 Comprehensive LAB 01/19/25 Verified Metabolic Panel 05:00 Comprehensive LAB 01/20/25 Verified Metabolic Panel 05:00 Complete Blood Count LAB 01/17/25 Verified 05:00 Complete Blood Count LAB 01/18/25 Verified 05:00 Complete Blood Count LAB 01/19/25 Verified 05:00 Complete Blood Count LAB 01/20/25 Verified 05:00 Chest Portable XY 01/16/25 Resulted 04:00 Pheresis Platelets BBK 01/16/25 Logged 10:07 Type And Screen K 01/16/25 In Process 10:07 Abg W/ Co-Ox RT 01/16/25 Logged 14:00 Complete Blood Count LAB 01/16/25 Logged 14:00 * Hematology/Oncology CONS 01/16/25 Transmitted Consult 13:28 Dietary Evaluation Review Comments: Nutrition Recommendation: 1) TPN to meet at least 75% estimated needs within 7 days 2) Monitor NPO status, lab values, wt trend, I/O Expected Outcomes/Goals: To meet >75% estimated needs Lab values to improve Fu 2-3 days Date of Service: Jan 16, 2025 Billing Provider: ASHLEY CASTRO MD Common Visit Codes: [id number] CARE 30-74 MIN ASHLEY CASTRO MD Jan 16, 2025 13:31
[2025-01-16 14:34] LABS: Hematocrit 22.9 % (36.0-46.0); Hemoglobin 7.6 g/dL (12.2-16.2); Mean Corpuscular Hemoglobin 29.1 pg (28.0-32.0); Mean Corpuscular Volume 88.0 fL (80.0-100.0)
[2025-01-16 15:00] LABS: Total Cells Counted 100.0 (100)
[2025-01-16 15:01] LABS: Anisocytosis Slight
[2025-01-16] MEDS: POTASSIUM PHOSPHATE 22 MEQ in SODIUM CHL 0.9% 100 ML IV ONE (17:01)
[2025-01-16] MEDS: LACTATED RINGER'S 1,000 ML IV ONE ×2 (18:04→18:56)
[2025-01-16 20:51] LABS: Lactic Acid w/Reflex 2.4 mmol/L (0.4-2.0)
[2025-01-16] MEDS: TPN PER PHARMACY IV NR (21:47)
[2025-01-17] VITALS (102 sets, daily range): BP systolic 108–161; BP diastolic 46–79; PULSE 60–102; RESP 11–20; TEMP 97.9–100.8; O2SAT 94–100
[2025-01-17 03:44] LABS: Mean Corpuscular Hemoglobin 29.1 pg (28.0-32.0)
[2025-01-17 03:53] LABS: Hematocrit 20.5 % (36.0-46.0); Mean Corpuscular Volume 86.7 fL (80.0-100.0)
[2025-01-17 04:01] LABS: Hemoglobin 6.9 g/dL (12.2-16.2)
[2025-01-17 04:16] LABS: Alanine Aminotransferase 15 U/L (7-40); Alkaline Phosphatase 87 U/L (46-116); Anion Gap 7 (5-15); BUN/Creatinine Ratio 35.7 (10.0-20.0); Bilirubin, Total 0.7 mg/dL (0.2-1.0); Chloride 102 mmol/L (98-107); Magnesium 2.1 mg/dL (1.6-2.6); Potassium 4.0 mmol/L (3.5-5.1); Sodium 145 mmol/L (136-145)
[2025-01-17 04:22] LABS: Albumin 2.2 g/dL (3.2-4.8); Blood Urea Nitrogen 51 mg/dL (9-23); Calcium 7.3 mg/dL (8.7-10.4); Carbon Dioxide 36 mmol/L (20-31); Glucose 209 mg/dL (74-106); Total Protein 3.7 g/dL (5.7-8.2)
[2025-01-17 04:33] LABS: Total Cells Counted 100.0 (100)
--- NOTE | 2025-01-17 04:58 | DVH ---
CHEST RADIOGRAPH Indication: RE-CHECK BILAT PLEURAL EFFUSIONS Technique: Single frontal view of the chest was obtained COMPARISON: XY CHEST PORTABLE on DOS: 01/16/25, XY CHEST PORTABLE on DOS: 01/15/25, XY CHEST PORTABLE on DOS: 01/14/25, XY CHEST PORTABLE on DOS: 01/13/25, XY CHEST XRAY 1 VIEW on DOS: 01/13/25 FINDINGS: Lines and Tubes: Unchanged. Lungs: Grossly stable appearing diffuse increased prominence of the pulmonary vasculature and bilater al perihilar infiltrate. Bilateral pleural effusions are stable in appearance. No pneumothorax. Cardiomediastinal contours: Cardiomegaly. Bones: Unremarkable IMPRESSION: 1. Cardiomegaly, diffuse increased prominence of the pulmonary vasculature, bilateral perihilar infil trate and bilateral pleural effusions. 2. Lines and tubes unchanged.
[2025-01-17] MEDS: LACTATED RINGER'S 1,000 ML IV ONE (06:12)
--- NOTE | 2025-01-17 08:11 | DVHPN2 ---
Progress Note Date Seen: Jan 17, 2025 Has the PT tested + for MRSA If YES, has PT been informed?: No Medical Necessity Reason Pt with a Central, PICC or Fol: Yes The following are medically ne: Central Line, Leach Catheter Reason for leach catheter: Strict I&O Objective vital signs Vital Sign Date Time Temp Pulse Resp B/P (MAP) Pulse Ox O2 Delivery O2 Flow Rate FiO2 01/17/25 07:00 97.9 66 12 120/54 97.9 01/17/25 06:45 99 01/17/25 06:00 30 01/17/25 06:00 Mechanical Ventilator+ Total Intake and Output 01/16/25 01/16/25 01/17/25 15:00 23:00 07:00 Intake Total 548 ml 2562.75 ml 1296.75 ml Output Total 730 ml 620 ml Balance 548 ml 1832.75 ml 676.75 ml medications Current Medications Medications Dose Ordered Sig/Isaura Route Start Time Stop Time Status Last Admin Dose Admin Acetaminophen 650 mg Q6HP PRN PO 01/13/25 07:45 Pantoprazole Sodium 40 mg DAILY IV 01/13/25 10:00 01/16/25 09:52 40 MG Cefazolin Sodium 50 ml @ 100 mls/hr Q8HR IV 01/13/25 14:00 UNV Metronidazole 100 ml @ 100 mls/hr Q8HR IV 01/13/25 14:00 01/17/25 05:41 100 MLS/HR Midazolam HCl 50 ml @ 1 mls/hr Q24H IV 01/13/25 13:30 01/16/25 08:24 1 MLS/HR Fentanyl Citrate 250 ml @ 2.5 mls/hr Q24H IV 01/13/25 13:30 01/14/25 23:31 5 MLS/HR Norepinephrine Bitartrate 250 ml @ 3.75 mls/hr Q24H IV 01/13/25 13:30 01/16/25 18:41 3.75 MLS/HR Vancomycin HCl 0 ml @ 0 mls/hr UD IV 01/13/25 15:00 Vasopressin 20 units/Sodium Chloride 100 ml @ 9 mls/hr Q11H7M IV 01/13/25 18:45 Vasopressin 20 units/Sodium Chloride 100 ml @ 9 mls/hr Q11H7M IV 01/13/25 18:45 UNV Phenylephrine HCl 250 ml @ 30 mls/hr Q8H20M IV 01/13/25 18:45 01/14/25 23:43 30 MLS/HR Fluconazole 100 ml @ 100 mls/hr DAILY@2000 IV 01/14/25 20:00 01/16/25 20:21 100 MLS/HR Sodium Chloride 1,000 ml @ 100 mls/hr Q10H IV 01/16/25 10:30 01/16/25 20:36 100 MLS/HR Amino Acids 0 ml @ 0 mls/hr PER PHARMACY IV 01/16/25 11:15 Diagnostic Test (Pha) 1 strip Q6HR 01/16/25 12:00 01/17/25 05:41 1 STRIP Insulin Human Regular FOLLOW SLIDING SCALE Q6HR SC 01/16/25 12:00 01/17/25 05:31 4 UNITS Dextrose 50 ml UD IV 01/16/25 12:00 Fat Emulsion Intravenous 50 ml/ Potassium Chloride 60 meq/ Potassium Phosphate 22 meq/ Calcium Gluconate 4.65 meq/ Magnesium Sulfate 12 meq/ Multivitamins 10 ml/Chromium/ Copper/Manganese/ Zinc 1 ml/Insulin Human Regular 8 units/Amino Acids/ Dextrose/Purified Water 1,159.08 ml @ 48 mls/hr Q24H9M IV 01/16/25 22:00 01/17/25 21:59 01/16/25 21:47 48 MLS/HR Potassium Chloride 100 ml @ 50 mls/hr Q2H IV 01/16/25 12:45 01/16/25 18:44 UNV Cefepime HCl 50 ml @ 12.5 mls/hr DAILY IV 01/17/25 10:00 laboratory and microbiology Laboratory Tests 01/17/25 03:19 Test 01/17/25 03:19 Range/Units Serum Glucose 209 H 74-106 mg/dL Problem List/Assessment/Plan Problem List/Assessment/Plan 01/14/25 afebrile, low dose BP support, received transfusion, I believe her decreased hematocrit is due to hemodilution. abdomen non distended, soft, wound clean and well approximated, drainage serous . remains intubated and sedated 01/16/25 ALKALOSIS, ABDOMEN NON DISTENDED, SOFT, DRAINAGE SEROUS, WOUND CLEAN AND WELL APPROXIMATED 9/8/25 improved, thrombocytopenia possibly made worse by Fluconazole,will DC, abdomen non distended, wound well approximated without infection, CARMEN drainage serous, CVP 6, good urine output. Plan discussed with: Other Dietary Evaluation Review Comments: Nutrition Recommendation: 1) TPN to meet at least 75% estimated needs within 7 days 2) Monitor NPO status, lab values, wt trend, I/O Expected Outcomes/Goals: To meet >75% estimated needs Lab values to improve Fu 2-3 days MELVA RAMESH MD Jan 17, 2025 08:11
--- NOTE | 2025-01-17 10:04 | DVH ---
US BiLat Lower DVT HISTORY: To role out DVT COMPARISON: US BI LAT UPPER DVT on DOS: 01/17/25 TECHNIQUE: Duplex doppler evaluation of the deep venous system of the lower extremity from the common femoral veins, superficial femoral vein, great saphenous vein, deep femoral vein, popliteal vein, an d calf veins, including color doppler and spectral/pulsed waveform analysis, was performed. FINDINGS: Right: - Common femoral vein: Compressible - Deep femoral vein: Compressible - Femoral vein: Compressible - Popliteal vein: Compressible - Posterior tibial vein: Waveforms present - Other: Nothing Left: - Common femoral vein: Compressible - Deep femoral vein: Compressible - Femoral vein: Compressible - Popliteal vein: Compressible - Posterior tibial vein: Waveforms present - Other: Nothing IMPRESSION: No right or left lower extremity deep venous thrombosis.
--- NOTE | 2025-01-17 10:20 | DVH ---
Bilateral Upper Extremity Venous Duplex Clinical History: To rule out thrombosis Comparison: US BILAT LOWER DVT on DOS: 01/17/25 Findings: Duplex Doppler evaluation of the venous systems of the right and left lower neck and upper extremitie s including color Doppler and spectral/pulsed waveform analysis was performed. RIGHT SIDE: The internal jugular vein demonstrates partial compressibility. The subclavian vein is patent on color Doppler evaluation without intraluminal thrombus and demonstra mickey waveform variability. The visualized portion of the brachiocephalic vein is patent on color Doppler evaluation without intr aluminal thrombus and demonstrates waveform variability. The axillary vein demonstrates appropriate compressibility and waveform variability. The brachial veins demonstrate appropriate compressibility and patency on Doppler evaluation. The basilic vein demonstrates appropriate compressibility and patency on Doppler evaluation. Thrombus in the cephalic vein. LEFT SIDE: The internal jugular vein demonstrates no compressibility. The subclavian vein is patent on color Doppler evaluation without intraluminal thrombus and demonstra mickey waveform variability. The visualized portion of the brachiocephalic vein is patent on color Doppler evaluation without intr aluminal thrombus and demonstrates waveform variability. The axillary vein demonstrates appropriate compressibility and waveform variability. The brachial veins demonstrate appropriate compressibility and patency on Doppler evaluation. The basilic vein demonstrates appropriate compressibility and patency on Doppler evaluation. Cephalic vein not visualized Impression: Partial thrombus in the right internal jugular vein and cephalic vein. Nonvisualization of the left cephalic vein. Could not compress left internal jugular vein. If clinical concern/symptoms persist or worsen, short-interval follow-up study is suggested.
[2025-01-17] MEDS: METOPROLOL TARTRATE 25 MG TAB PO ONE (11:00)
[2025-01-17] MEDS ORDERED: hydrALAZINE HCL 20 MG/ML VL IV PRN (11:00)
[2025-01-17 11:07] LABS: Base Excess 4.3 mmol/L (-2.0-3.0)
--- NOTE | 2025-01-17 11:08 | DVHPN2 ---
Consult Progress Note Date Seen: Jan 17, 2025 Subjective Other Systems: No overnight cardiac events reported Objective vital signs Vital Sign Date Time Temp Pulse Resp B/P (MAP) Pulse Ox O2 Delivery O2 Flow Rate FiO2 01/17/25 10:16 72 12 144/62 (89) 95 30 01/17/25 09:24 98.2 98.2 01/17/25 06:00 Mechanical Ventilator+ Total Intake and Output 01/16/25 01/16/25 01/17/25 15:00 23:00 07:00 Intake Total 548 ml 2562.75 ml 1296.75 ml Output Total 730 ml 620 ml Balance 548 ml 1832.75 ml 676.75 ml medications Current Medications Medications Dose Ordered Sig/Isaura Route Start Time Stop Time Status Last Admin Dose Admin Acetaminophen 650 mg Q6HP PRN PO 01/13/25 07:45 Pantoprazole Sodium 40 mg DAILY IV 01/13/25 10:00 01/16/25 09:52 40 MG Cefazolin Sodium 50 ml @ 100 mls/hr Q8HR IV 01/13/25 14:00 UNV Midazolam HCl 50 ml @ 1 mls/hr Q24H IV 01/13/25 13:30 01/16/25 08:24 1 MLS/HR Fentanyl Citrate 250 ml @ 2.5 mls/hr Q24H IV 01/13/25 13:30 01/17/25 07:50 5 MLS/HR Norepinephrine Bitartrate 250 ml @ 3.75 mls/hr Q24H IV 01/13/25 13:30 01/16/25 18:41 3.75 MLS/HR Vancomycin HCl 0 ml @ 0 mls/hr UD IV 01/13/25 15:00 Vasopressin 20 units/Sodium Chloride 100 ml @ 9 mls/hr Q11H7M IV 01/13/25 18:45 Vasopressin 20 units/Sodium Chloride 100 ml @ 9 mls/hr Q11H7M IV 01/13/25 18:45 UNV Phenylephrine HCl 250 ml @ 30 mls/hr Q8H20M IV 01/13/25 18:45 01/14/25 23:43 30 MLS/HR Sodium Chloride 1,000 ml @ 100 mls/hr Q10H IV 01/16/25 10:30 01/16/25 20:36 100 MLS/HR Amino Acids 0 ml @ 0 mls/hr PER PHARMACY IV 01/16/25 11:15 Diagnostic Test (Pha) 1 strip Q6HR 01/16/25 12:00 01/17/25 05:41 1 STRIP Insulin Human Regular FOLLOW SLIDING SCALE Q6HR SC 01/16/25 12:00 01/17/25 05:31 4 UNITS Dextrose 50 ml UD IV 01/16/25 12:00 Fat Emulsion Intravenous 50 ml/ Potassium Chloride 60 meq/ Potassium Phosphate 22 meq/ Calcium Gluconate 4.65 meq/ Magnesium Sulfate 12 meq/ Multivitamins 10 ml/Chromium/ Copper/Manganese/ Zinc 1 ml/Insulin Human Regular 8 units/Amino Acids/ Dextrose/Purified Water 1,159.08 ml @ 48 mls/hr Q24H9M IV 01/16/25 22:00 01/17/25 21:59 01/16/25 21:47 48 MLS/HR Potassium Chloride 100 ml @ 50 mls/hr Q2H IV 01/16/25 12:45 01/16/25 18:44 UNV Cefepime HCl 50 ml @ 12.5 mls/hr DAILY IV 01/17/25 10:00 Examination: GENERAL:Abnormal (Third spacing to upper/lower extremities), LUNGS:Abnormal (Endotracheally intubated 30% FiO2), CVS:Normal (Sinus rhythm with PACs on bedside monitor. Off vasopressors), NEURO:Abnormal (Chemically sedated) laboratory and microbiology Laboratory Tests 01/17/25 03:19 Test 01/17/25 03:19 Range/Units Serum Glucose 209 H 74-106 mg/dL Problem List/Assessment/Plan Problem List/Assessment/Plan Septic shock with acute peritonitis with perforated bowel status post exploratory laparotomy Paroxysmal atrial fibrillation, Stage 3A, now NSR with PACs (on low-dose Eliquis) Acute anemia requiring PRBC transfusions Severe thrombocytopenia Hypertriglyceridemia, newly diagnosed Acute kidney injury Thyroid disease Type 2 diabetes mellitus, uncontrolled (Hgb A1c 8.2%) Obesity Plan/Recommendations (Dr. Ann) Transthoracic echocardiogram revealed a LVEF of 65% with mild LV diastolic dysfunction and no significant valvular structural abnormalities noted. Known history of atrial fibrillation on low-dose Eliquis therapy at home ([id number] VASc score: 5 points, HAS-BLED score: 1 point). Currently sinus rhythm with PACs and transient sinus bradycardia in the setting of hypothermia. DOAC therapy contraindicated given acute anemia and thrombocytopenia. Continue blood/platelet transfusions as ordered. In the meantime, continue with SCDs and initiate blood pressure control with low-dose BB. Continue with close cardiac surveillance and notify cardiology team for any ECG changes. Kindly call Cardiology on as needed basis. Thank you for allowing us to care for this patient. Please call with any questions or concerns. Critical care time: 30 min. This medical document was created using an electronic medical record system with voice recognition software and computerized dictation system. Although this document has been carefully reviewed, there might still be some phonetic and typographical errors. Occasional wrong-word or ``sound-alike substitutions may have occurred due to the inherent limitations of voice recognition software. These areas are purely typographical due to imperfections of the software programs and do not reflect any compromise in the patient's medical care. Please read the chart carefully and recognize, using context, where these substitutions have occurred. Plan discussed with: Son, Other Dietary Evaluation Review Comments: Nutrition Recommendation: 1) TPN to meet at least 75% estimated needs within 7 days 2) Monitor NPO status, lab values, wt trend, I/O Expected Outcomes/Goals: To meet >75% estimated needs Lab values to improve Fu 2-3 days CC Plasma Assessment Blood Product Administration S: [id number] Date of Service: Jan 17, 2025 Billing Provider: LOYD MCCOLLUM Cardiology Common Codes: [id number]-[id number] CARE 30-74 MIN LOYD MCCOLLUM Jan 17, 2025 11:08
[2025-01-17] MEDS: CEFEPIME 1GM/50ML D5W or NS KIT IV SCH (11:17)
--- NOTE | 2025-01-17 11:52 | DVHPN2 ---
Progress Note Date Seen: Jan 17, 2025 Has the PT tested + for MRSA If YES, has PT been informed?: No Medical Necessity Reason Pt with a Central, PICC or Fol: Yes The following are medically ne: Central Line, Leach Catheter Reason for leach catheter: Strict I&O Subjective Review of Systems: RESPIRATORY:Abnormal Other Systems: Patient seen and examined by myself today in follow-up, patient remained intubated on ventilator Objective vital signs Vital Sign Date Time Temp Pulse Resp B/P (MAP) Pulse Ox O2 Delivery O2 Flow Rate FiO2 01/17/25 10:16 72 12 144/62 (89) 95 30 01/17/25 09:24 98.2 98.2 01/17/25 06:00 Mechanical Ventilator+ Total Intake and Output 01/16/25 01/16/25 01/17/25 15:00 23:00 07:00 Intake Total 548 ml 2562.75 ml 1296.75 ml Output Total 730 ml 620 ml Balance 548 ml 1832.75 ml 676.75 ml medications Current Medications Medications Dose Ordered Sig/Isaura Route Start Time Stop Time Status Last Admin Dose Admin Acetaminophen 650 mg Q6HP PRN PO 01/13/25 07:45 Pantoprazole Sodium 40 mg DAILY IV 01/13/25 10:00 01/17/25 11:16 40 MG Cefazolin Sodium 50 ml @ 100 mls/hr Q8HR IV 01/13/25 14:00 UNV Midazolam HCl 50 ml @ 1 mls/hr Q24H IV 01/13/25 13:30 01/16/25 08:24 1 MLS/HR Fentanyl Citrate 250 ml @ 2.5 mls/hr Q24H IV 01/13/25 13:30 01/17/25 07:50 5 MLS/HR Norepinephrine Bitartrate 250 ml @ 3.75 mls/hr Q24H IV 01/13/25 13:30 01/16/25 18:41 3.75 MLS/HR Vancomycin HCl 0 ml @ 0 mls/hr UD IV 01/13/25 15:00 Vasopressin 20 units/Sodium Chloride 100 ml @ 9 mls/hr Q11H7M IV 01/13/25 18:45 Vasopressin 20 units/Sodium Chloride 100 ml @ 9 mls/hr Q11H7M IV 01/13/25 18:45 UNV Phenylephrine HCl 250 ml @ 30 mls/hr Q8H20M IV 01/13/25 18:45 01/14/25 23:43 30 MLS/HR Sodium Chloride 1,000 ml @ 100 mls/hr Q10H IV 01/16/25 10:30 01/17/25 09:15 100 MLS/HR Amino Acids 0 ml @ 0 mls/hr PER PHARMACY IV 01/16/25 11:15 Diagnostic Test (Pha) 1 strip Q6HR 01/16/25 12:00 01/17/25 05:41 1 STRIP Insulin Human Regular FOLLOW SLIDING SCALE Q6HR SC 01/16/25 12:00 01/17/25 05:31 4 UNITS Dextrose 50 ml UD IV 01/16/25 12:00 Fat Emulsion Intravenous 50 ml/ Potassium Chloride 60 meq/ Potassium Phosphate 22 meq/ Calcium Gluconate 4.65 meq/ Magnesium Sulfate 12 meq/ Multivitamins 10 ml/Chromium/ Copper/Manganese/ Zinc 1 ml/Insulin Human Regular 8 units/Amino Acids/ Dextrose/Purified Water 1,159.08 ml @ 48 mls/hr Q24H9M IV 01/16/25 22:00 01/17/25 21:59 01/16/25 21:47 48 MLS/HR Potassium Chloride 100 ml @ 50 mls/hr Q2H IV 01/16/25 12:45 01/16/25 18:44 UNV Cefepime HCl 50 ml @ 12.5 mls/hr DAILY IV 01/17/25 10:00 01/17/25 11:17 12.5 MLS/HR Metoprolol Tartrate 12.5 mg BID PO 01/17/25 22:00 Hydralazine HCl 10 mg Q6HP PRN IV 01/17/25 11:00 Fat Emulsion Intravenous 50 ml/ Potassium Chloride 60 meq/ Calcium Gluconate 7 meq/Magnesium Sulfate 8 meq/ Multivitamins 10 ml/Chromium/ Copper/Manganese/ Zinc 1 ml/Insulin Human Regular 13 units/Amino Acids/ Dextrose 1,208.1837 ml @ 50 mls/hr [id number] IV 01/17/25 22:00 01/18/25 21:59 Examination: LUNGS:Normal, CVS:Normal, MSK:Abnormal laboratory and microbiology Laboratory Tests 01/17/25 03:19 Test 01/17/25 03:19 Range/Units Serum Glucose 209 H 74-106 mg/dL Microbiology Date/Time Source Procedure Growth Status 01/13/25 17:10 Nose MRSA Screen - Final Complete 01/13/25 13:05 Sputum Gram Stain - Final Complete 01/13/25 13:05 Sputum Respiratory Culture - Final Complete 01/13/25 11:42 Peritoneal Fluid Gram Stain - Final Resulted 01/13/25 11:42 Peritoneal Fluid Anaerobic Culture - Preliminary Resulted 01/13/25 11:42 Aerobic Culture - Preliminary Escherichia coli Klebsiella pneumoniae Resulted Problem List/Assessment/Plan Problem List/Assessment/Plan Acute kidney injury superimposed Chronic Kidney Disease secondary hemodynamic mediated Acute respiratory failure, patient intubated on ventilator Acute perforation of the abdomen / bowel ischemia s/p exlap History of atrial fibrillation previously on anticoagulation 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 , RA + anemia hyperkalemia-----> hypokalemia Dropping hemoglobin Anemia due to blood loss Recommendations Kidney function is improving Increased urine output Leach catheter Strict I&Os Packed red blood cell transfusion p.r.n. We will continue to follow up Plan discussed with: Other (Nurse) Dietary Evaluation Review Comments: Nutrition Recommendation: 1) TPN to meet at least 75% estimated needs within 7 days 2) Monitor NPO status, lab values, wt trend, I/O Expected Outcomes/Goals: To meet >75% estimated needs Lab values to improve Fu 2-3 days CC Plasma Assessment Blood Product Administration S: [id number] LAKESHA REINA MD Jan 17, 2025 11:52
[2025-01-17 11:54] LABS: INR 1.32 (0.9-1.15); Prothrombin Time 13.6 sec (9.3-11.8)
[2025-01-17 12:39] LABS: Fibrinogen 256.0 mg/dL (177-375)
[2025-01-17 12:59] LABS: Hemoglobin 8.4 g/dL (12.2-16.2)
[2025-01-17 13:00] LABS: Hematocrit 25.1 % (36.0-46.0); Mean Corpuscular Hemoglobin 29.7 pg (28.0-32.0); Mean Corpuscular Volume 88.7 fL (80.0-100.0)
[2025-01-17 13:14] LABS: Nucleated Red Blood Cells % 1.0 %
[2025-01-17 13:15] LABS: Total Cells Counted 100.0 (100)
[2025-01-17 13:16] LABS: Anisocytosis Slight
--- NOTE | 2025-01-17 14:05 | ECG ---
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
--- NOTE | 2025-01-17 14:05 | ECG ---
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
[2025-01-17] MEDS: FUROSEMIDE 20 MG/2 ML VIAL IV ONE (18:08)
[2025-01-17] MEDS: VANCOMYCIN 500mg/100mL 100 ML IV ONE (18:10)
--- NOTE | 2025-01-17 19:15 | DVHPNRES ---
Progress Note Date Seen: Jan 17, 2025 Resident Creating Document: DG YOUNG RESIDENT Has the PT tested + for MRSA If YES, has PT been informed?: No Medical Necessity Reason Pt with a Central, PICC or Fol: Yes The following are medically ne: Central Line, Leach Catheter Reason for leach catheter: Strict I&O Subjective Review of Systems This is a 80-year-old female with past medical history of hypertension, AFib on Eliquis, type 2 diabetes mellitus, autoimmune disease, CKD, presented to the ED with a chief complaint of severe abdominal pain for last 2 4 days prior to this visit. The i.e. the patient has intermittent able minimal pain for last 4 month, getting worse that prompted this visit. mentioned recently this patient had a fall few weeks ago and chest x-ray demonstrated healed fracture on right 4th and 5th ribs. Before intubation the patient described the abdominal pain is sharp constant pain, diffuse in nature, 9/10, radiates to the back and associated with constipation. He denies fever, chills, shortness of breath, dizziness, nausea, vomiting, hematuria, dysuria, recent traveling, or any positive for Crohn's sick contact or any altered bowel habit. CT abdomen pelvis without IV contrast demonstrated free intraperitoneal likely from visceral perforation of the left abdominal small bowel loops, circumferential wall thickening of left abdominal small bowel loop with more focal local pool of gas adjacent to this thickened small bowel loop. Underwent emergent exploratory laparotomy, lysis of adhesions, extensive lab age, resection of perforated small bowel, enteroenterostomy. Patient was seen and examined on the bedside in ICU. Family was on the bedside. Status post exploratory laparotomy with enteroenterostomy, day 4. She is on mechanical ventilation with FiO2 30%, tidal volume 450 mL, peep 5 and respiratory rate 20. Patient developed severe thrombocytopenia for last 3 days and today morning it dropped to 13, received 1 unit PRBC for hemoglobin at 6.9 and follow up H&H was 8.4/25.1 and platelet count 11. ordered another bag of platelet apheresis today. Total got 2 units of PRBC and 1 unit of platelets since the surgery. Bilateral upper extremity DVT scan revealed partial thrombus in the right internal jugular and cephalic vein, could not compress left internal jugular vein, nonvisualization of left cephalic vein and lower extremity DVT scan was negative. coagulation studies demonstrated PT 13.6, INR 1.32, D-dimer 26.68, and fibrinogen 256. Objective vital signs Vital Sign Date Time Temp Pulse Resp B/P (MAP) Pulse Ox O2 Delivery O2 Flow Rate FiO2 01/17/25 18:47 132/75 01/17/25 17:57 100 14 98 30 01/17/25 17:20 99.9 99.9 01/17/25 08:00 Mechanical Ventilator+ Total Intake and Output 01/16/25 01/16/25 01/17/25 15:00 23:00 07:00 Intake Total 548 ml 2562.75 ml 1345.75 ml Output Total 730 ml 620 ml Balance 548 ml 1832.75 ml 725.75 ml medications Current Medications Medications Dose Ordered Sig/Isaura Route Start Time Stop Time Status Last Admin Dose Admin Acetaminophen 650 mg Q6HP PRN PO 01/13/25 07:45 Pantoprazole Sodium 40 mg DAILY IV 01/13/25 10:00 01/17/25 11:16 40 MG Cefazolin Sodium 50 ml @ 100 mls/hr Q8HR IV 01/13/25 14:00 UNV Midazolam HCl 50 ml @ 1 mls/hr Q24H IV 01/13/25 13:30 01/17/25 18:47 1 MLS/HR Fentanyl Citrate 250 ml @ 2.5 mls/hr Q24H IV 01/13/25 13:30 01/17/25 07:50 5 MLS/HR Norepinephrine Bitartrate 250 ml @ 3.75 mls/hr Q24H IV 01/13/25 13:30 01/16/25 18:41 3.75 MLS/HR Vancomycin HCl 0 ml @ 0 mls/hr UD IV 01/13/25 15:00 Vasopressin 20 units/Sodium Chloride 100 ml @ 9 mls/hr Q11H7M IV 01/13/25 18:45 Vasopressin 20 units/Sodium Chloride 100 ml @ 9 mls/hr Q11H7M IV 01/13/25 18:45 UNV Phenylephrine HCl 250 ml @ 30 mls/hr Q8H20M IV 01/13/25 18:45 01/14/25 23:43 30 MLS/HR Amino Acids 0 ml @ 0 mls/hr PER PHARMACY IV 01/16/25 11:15 Diagnostic Test (Pha) 1 strip Q6HR 01/16/25 12:00 01/17/25 18:16 1 STRIP Insulin Human Regular FOLLOW SLIDING SCALE Q6HR SC 01/16/25 12:00 01/17/25 18:40 8 UNITS Dextrose 50 ml UD IV 01/16/25 12:00 Fat Emulsion Intravenous 50 ml/ Potassium Chloride 60 meq/ Potassium Phosphate 22 meq/ Calcium Gluconate 4.65 meq/ Magnesium Sulfate 12 meq/ Multivitamins 10 ml/Chromium/ Copper/Manganese/ Zinc 1 ml/Insulin Human Regular 8 units/Amino Acids/ Dextrose/Purified Water 1,159.08 ml @ 48 mls/hr Q24H9M IV 01/16/25 22:00 01/17/25 21:59 01/16/25 21:47 48 MLS/HR Potassium Chloride 100 ml @ 50 mls/hr Q2H IV 01/16/25 12:45 01/16/25 18:44 UNV Cefepime HCl 50 ml @ 12.5 mls/hr DAILY IV 01/17/25 10:00 01/17/25 11:17 12.5 MLS/HR Metoprolol Tartrate 12.5 mg BID PO 01/17/25 22:00 Hydralazine HCl 10 mg Q6HP PRN IV 01/17/25 11:00 Fat Emulsion Intravenous 50 ml/ Potassium Chloride 60 meq/ Calcium Gluconate 7 meq/Magnesium Sulfate 8 meq/ Multivitamins 10 ml/Chromium/ Copper/Manganese/ Zinc 1 ml/Insulin Human Regular 13 units/Amino Acids/ Dextrose 1,208.1837 ml @ 50 mls/hr [id number] IV 01/17/25 22:00 01/18/25 21:59 Examination Examination General: RASS -3, afebrile, mucosae are moist Cardiovascular: Normal S1 and S2. No murmurs, gallops or rubs Respiratory: Mechanically assisted ventilation, equal bilateral airway entree. Decreased breath sounds on both sides lower lung field Abdomen: Soft, nontender, no organomegaly, no bowel sounds, surgical scar on the midline, no sign of erythema or oozing from the incision site MSK/skin: hemorrhagic blisters in bilateral upper extremity and oozing from this, skin is mottled more pronounced in hands and feet bilaterally, Mobilization of limbs cannot be evaluated. Skin is dry and warm. Neurological: Orientation cannot be assessed. No apparent motor no sensitive deficits. Pupils are isocoric and reactive laboratory and microbiology Laboratory Tests 01/17/25 11:20 01/17/25 03:19 Test 01/17/25 03:19 Range/Units Serum Glucose 209 H 74-106 mg/dL Microbiology Date/Time Source Procedure Growth Status 01/16/25 14:00 Blood Blood Culture - Preliminary NO GROWTH AFTER 24 HOURS OF INCUBATION. Resulted 01/13/25 17:10 Nose MRSA Screen - Final Complete 01/13/25 13:05 Sputum Gram Stain - Final Complete 01/13/25 13:05 Sputum Respiratory Culture - Final Complete 01/13/25 11:42 Peritoneal Fluid Gram Stain - Final Resulted 01/13/25 11:42 Peritoneal Fluid Anaerobic Culture - Preliminary Resulted 01/13/25 11:42 Aerobic Culture - Preliminary Escherichia coli Klebsiella pneumoniae Resulted Labs and/or images reviewed: Labs reviewed by me, Image(s) reviewed by me Problem List/Assessment/Plan Problem List/Assessment/Plan Assessment and plan: NEURO: Acute metabolic encephalopathy secondary to acute hypoxic respiratory failure Status post intubation RASS score: -3 CARDIOVASCULAR: Septic shock secondary to perforation of the hollow viscus Paroxysmal atrial fibrillation with secondary hypercoagulable state - echo demonstrated EF 65%, mild LV diastolic dysfunction - Chest xray demonstrated bibasilar atelectasis - [id number] score more than 5 - hold Lovenox because of severe thrombocytopenia PULMONARY: Acute hypoxic respiratory failure GASTROINTESTINAL: Perforation of the small bowel, status post exploratory laparotomy Transaminitis secondary to shock GENITOURINARY: ISRRAEL on CKD secondary to shock/VMN ENDOCRINE: History of hypothyroidism Type 2 diabetes mellitus, hemoglobin A1c 8.2 - mild sliding scale of insulin METABOLIC: Hyperkalemia secondary to ISRRAEL Moderate protein calorie malnutrition, albumin 2.6 Anion gap metabolic acidosis secondary to bowel ischemia leading to lactic acidosis HEME: Acute on chronic anemia secondary to hemodilution/post surgical Severe thrombocytopenia likely secondary to HIT Possible heparin-induced thrombocytopenia type 2 Acute DVT of right upper extremity - 2 unit of PRBC and platelet given since the surgery INFECTIOUS DISEASE: Sepsis with septic shock secondary to perforation of the small bowel - respiratory culture negative, peritoneal fluid culture demonstrated E coli, Klebsiella - continue IV vancomycin and IV cefepime - discontinued Zosyn, metronidazole and fluconazole for possible drug induced thrombocytopenia DIET: TPN DVT prophylax: Hold GI prophylaxis: Pantoprazole Bowel regimen: Code status: Full code LINES/DRAINS/ACCESS: ETT: Intubated on 01/14/25 IV access: Left IJ placed on 01/14/2025 Drips: Versed and fentanyl Leach catheter: Placed on 0 10/03 DISPOSITION: ICU Patient's status discussed with waylon Pavon Critical care time spent more than 81 minutes, including patient care, chart review, and updating the family. Excluding any procedures. Case discussed with Dr. Self Plan discussed with: Son, Other (grand Son, RN) My Orders My Orders Orders - DG YOUNG Procedure Category Date Status Time Haptoglobin LAB 01/17/25 In Process 06:51 Bilat Lower Dvt US 01/17/25 Resulted 07:00 Bi Lat Upper Dvt US 01/17/25 Resulted 07:00 Dietary Evaluation Review Comments: Nutrition Recommendation: 1) TPN to meet at least 75% estimated needs within 7 days 2) Monitor NPO status, lab values, wt trend, I/O Expected Outcomes/Goals: To meet >75% estimated needs Lab values to improve Fu 2-3 days CC Plasma Assessment Blood Product Administration S: [id number] Date of Service: Jan 17, 2025 Billing Provider: ZBIGNIEW SELF MD Common Visit Codes: 36397-[id number] CARE 30-74 MIN, [id number] CARE-EACH +30MIN DG YOUNG Jan 17, 2025 19:15 ZBIGNIEW SELF MD Jan 18, 2025 14:04
[2025-01-17] MEDS: TPN PER PHARMACY IV NR (21:33)
[2025-01-17] MEDS: METOPROLOL TARTRATE 25 MG TAB PO SCH (21:55)
[2025-01-18] VITALS (107 sets, daily range): BP systolic 105–161; BP diastolic 37–74; PULSE 92–113; RESP 12–21; TEMP 99.3–100.8; O2SAT 95–100
[2025-01-18 04:19] LABS: Hemoglobin 10.3 g/dL (12.2-16.2); Mean Corpuscular Hemoglobin 29.4 pg (28.0-32.0)
[2025-01-18 04:21] LABS: Hematocrit 31.3 % (36.0-46.0); Mean Corpuscular Volume 89.1 fL (80.0-100.0)
[2025-01-18 04:26] LABS: Alanine Aminotransferase 12 U/L (7-40); Alkaline Phosphatase 89 U/L (46-116); Anion Gap 6 (5-15); BUN/Creatinine Ratio 42.7 (10.0-20.0); Chloride 104 mmol/L (98-107); Magnesium 1.9 mg/dL (1.6-2.6); Potassium 3.8 mmol/L (3.5-5.1); Sodium 142 mmol/L (136-145)
[2025-01-18 04:27] LABS: Bilirubin, Total 1.0 mg/dL (0.2-1.0)
[2025-01-18 04:43] LABS: Blood Urea Nitrogen 44 mg/dL (9-23); Carbon Dioxide 32 mmol/L (20-31); Glucose 326 mg/dL (74-106)
[2025-01-18 04:44] LABS: Albumin 2.6 g/dL (3.2-4.8); Calcium 7.8 mg/dL (8.7-10.4); Total Protein 4.5 g/dL (5.7-8.2)
[2025-01-18] MEDS ORDERED: POTASSIUM CHL 20MEQ/100ML 100 ML IV ONE (05:15)
[2025-01-18 05:18] LABS: Total Cells Counted 100.0 (100)
--- NOTE | 2025-01-18 05:21 | DVH ---
CHEST RADIOGRAPH Indication: On mechanical ventilation Technique: Single frontal view of the chest was obtained COMPARISON: XY CHEST PORTABLE on DOS: 01/17/25, XY CHEST PORTABLE on DOS: 01/16/25, XY CHEST PORTABLE on DOS: 01/15/25, XY CHEST PORTABLE on DOS: 01/14/25, XY CHEST PORTABLE on DOS: 01/13/25, XY CHEST PORTABLE on DOS: 01/14/25 FINDINGS: Lines and Tubes: Endotracheal tube, enteric catheter and left central catheter in satisfactory positi on. Lungs: Significant change in cardiopulmonary findings from earlier study of 01/13/2025 Pleura: No effusion. No pneumothorax. Cardiomediastinal contours: Unremarkable Bones: No acute osseous abnormality. IMPRESSION: 1. Lines and tubes in appropriate position. No significant interval change
--- NOTE | 2025-01-18 08:16 | DVHPN2 ---
Progress Note Date Seen: Jan 18, 2025 Has the PT tested + for MRSA If YES, has PT been informed?: No Medical Necessity Reason Pt with a Central, PICC or Fol: Yes The following are medically ne: Central Line, Leach Catheter Reason for leach catheter: Strict I&O Objective vital signs Vital Sign Date Time Temp Pulse Resp B/P (MAP) Pulse Ox O2 Delivery O2 Flow Rate FiO2 01/18/25 07:57 100 14 133/64 (87) 98 30 01/18/25 07:15 100.0 212.0 01/18/25 06:00 Mechanical Ventilator+ Total Intake and Output 01/17/25 01/17/25 01/18/25 15:00 23:00 07:00 Intake Total 728.0 ml 561 ml 392 ml Output Total 1210 ml 2650 ml Balance 728.0 ml -649 ml -2258 ml medications Current Medications Medications Dose Ordered Sig/Isaura Route Start Time Stop Time Status Last Admin Dose Admin Acetaminophen 650 mg Q6HP PRN PO 01/13/25 07:45 Pantoprazole Sodium 40 mg DAILY IV 01/13/25 10:00 01/17/25 11:16 40 MG Cefazolin Sodium 50 ml @ 100 mls/hr Q8HR IV 01/13/25 14:00 UNV Midazolam HCl 50 ml @ 1 mls/hr Q24H IV 01/13/25 13:30 01/17/25 18:47 1 MLS/HR Fentanyl Citrate 250 ml @ 2.5 mls/hr Q24H IV 01/13/25 13:30 01/17/25 07:50 5 MLS/HR Norepinephrine Bitartrate 250 ml @ 3.75 mls/hr Q24H IV 01/13/25 13:30 01/16/25 18:41 3.75 MLS/HR Vancomycin HCl 0 ml @ 0 mls/hr UD IV 01/13/25 15:00 Vasopressin 20 units/Sodium Chloride 100 ml @ 9 mls/hr Q11H7M IV 01/13/25 18:45 Vasopressin 20 units/Sodium Chloride 100 ml @ 9 mls/hr Q11H7M IV 01/13/25 18:45 UNV Phenylephrine HCl 250 ml @ 30 mls/hr Q8H20M IV 01/13/25 18:45 01/14/25 23:43 30 MLS/HR Amino Acids 0 ml @ 0 mls/hr PER PHARMACY IV 01/16/25 11:15 Diagnostic Test (Pha) 1 strip Q6HR 01/16/25 12:00 01/18/25 06:20 1 STRIP Insulin Human Regular FOLLOW SLIDING SCALE Q6HR SC 01/16/25 12:00 01/18/25 06:20 20 UNITS Dextrose 50 ml UD IV 01/16/25 12:00 Potassium Chloride 100 ml @ 50 mls/hr Q2H IV 01/16/25 12:45 01/16/25 18:44 UNV Cefepime HCl 50 ml @ 12.5 mls/hr DAILY IV 01/17/25 10:00 01/17/25 11:17 12.5 MLS/HR Metoprolol Tartrate 12.5 mg BID PO 01/17/25 22:00 Hydralazine HCl 10 mg Q6HP PRN IV 01/17/25 11:00 Fat Emulsion Intravenous 50 ml/ Potassium Chloride 60 meq/ Calcium Gluconate 7 meq/Magnesium Sulfate 8 meq/ Multivitamins 10 ml/Chromium/ Copper/Manganese/ Zinc 1 ml/Insulin Human Regular 13 units/Amino Acids/ Dextrose 1,208.1837 ml @ 50 mls/hr [id number] IV 01/17/25 22:00 01/18/25 21:59 01/17/25 21:33 50 MLS/HR laboratory and microbiology Laboratory Tests 01/18/25 03:15 Test 01/18/25 03:15 Range/Units Serum Glucose 326 H 74-106 mg/dL Problem List/Assessment/Plan Problem List/Assessment/Plan 01/14/25 afebrile, low dose BP support, received transfusion, I believe her decreased hematocrit is due to hemodilution. abdomen non distended, soft, wound clean and well approximated, drainage serous . remains intubated and sedated 01/16/25 ALKALOSIS, ABDOMEN NON DISTENDED, SOFT, DRAINAGE SEROUS, WOUND CLEAN AND WELL APPROXIMATED 01/17/25 improved, thrombocytopenia possibly made worse by Fluconazole,will DC, abdomen non distended, wound well approximated without infection, CARMEN drainage serous, CVP 6, good urine output. 01/18/25 abg reviewed, ,abdomen soft, non distended, CARMEN drainage clear serous, no bowel activity, febrile, urine output ok, continues with thrombocytopenia,pt and inr slightly elevated. prognosis grave. Plan discussed with: Patient Dietary Evaluation Review Comments: Nutrition Recommendation: 1) TPN to meet at least 75% estimated needs within 7 days 2) Monitor NPO status, lab values, wt trend, I/O Expected Outcomes/Goals: To meet >75% estimated needs Lab values to improve Fu 2-3 days MELVA RAMESH MD Jan 18, 2025 08:16
--- NOTE | 2025-01-18 09:53 | DVHPN2 ---
Progress Note Date Seen: Jan 18, 2025 Has the PT tested + for MRSA If YES, has PT been informed?: No Medical Necessity Reason Pt with a Central, PICC or Fol: Yes The following are medically ne: Central Line, Leach Catheter Reason for leach catheter: Strict I&O Subjective Review of Systems: RESPIRATORY:Abnormal Other Systems: Patient seen and examined by myself today in follow-up, patient remained intubated on ventilator Objective vital signs Vital Sign Date Time Temp Pulse Resp B/P (MAP) Pulse Ox O2 Delivery O2 Flow Rate FiO2 01/18/25 07:57 100 14 133/64 (87) 98 30 01/18/25 07:15 100.0 212.0 01/18/25 06:00 Mechanical Ventilator+ Total Intake and Output 01/17/25 01/17/25 01/18/25 15:00 23:00 07:00 Intake Total 728.0 ml 561 ml 392 ml Output Total 1210 ml 2650 ml Balance 728.0 ml -649 ml -2258 ml medications Current Medications Medications Dose Ordered Sig/Isaura Route Start Time Stop Time Status Last Admin Dose Admin Acetaminophen 650 mg Q6HP PRN PO 01/13/25 07:45 Pantoprazole Sodium 40 mg DAILY IV 01/13/25 10:00 01/17/25 11:16 40 MG Cefazolin Sodium 50 ml @ 100 mls/hr Q8HR IV 01/13/25 14:00 UNV Midazolam HCl 50 ml @ 1 mls/hr Q24H IV 01/13/25 13:30 01/17/25 18:47 1 MLS/HR Fentanyl Citrate 250 ml @ 2.5 mls/hr Q24H IV 01/13/25 13:30 01/17/25 07:50 5 MLS/HR Norepinephrine Bitartrate 250 ml @ 3.75 mls/hr Q24H IV 01/13/25 13:30 01/16/25 18:41 3.75 MLS/HR Vancomycin HCl 0 ml @ 0 mls/hr UD IV 01/13/25 15:00 Vasopressin 20 units/Sodium Chloride 100 ml @ 9 mls/hr Q11H7M IV 01/13/25 18:45 Vasopressin 20 units/Sodium Chloride 100 ml @ 9 mls/hr Q11H7M IV 01/13/25 18:45 UNV Phenylephrine HCl 250 ml @ 30 mls/hr Q8H20M IV 01/13/25 18:45 01/14/25 23:43 30 MLS/HR Amino Acids 0 ml @ 0 mls/hr PER PHARMACY IV 01/16/25 11:15 Diagnostic Test (Pha) 1 strip Q6HR 01/16/25 12:00 01/18/25 06:20 1 STRIP Insulin Human Regular FOLLOW SLIDING SCALE Q6HR SC 01/16/25 12:00 01/18/25 06:20 20 UNITS Dextrose 50 ml UD IV 01/16/25 12:00 Potassium Chloride 100 ml @ 50 mls/hr Q2H IV 01/16/25 12:45 01/16/25 18:44 UNV Cefepime HCl 50 ml @ 12.5 mls/hr DAILY IV 01/17/25 10:00 01/17/25 11:17 12.5 MLS/HR Metoprolol Tartrate 12.5 mg BID PO 01/17/25 22:00 Hydralazine HCl 10 mg Q6HP PRN IV 01/17/25 11:00 Fat Emulsion Intravenous 50 ml/ Potassium Chloride 60 meq/ Calcium Gluconate 7 meq/Magnesium Sulfate 8 meq/ Multivitamins 10 ml/Chromium/ Copper/Manganese/ Zinc 1 ml/Insulin Human Regular 13 units/Amino Acids/ Dextrose 1,208.1837 ml @ 50 mls/hr [id number] IV 01/17/25 22:00 01/18/25 21:59 01/17/25 21:33 50 MLS/HR Insulin Glargine [address] 01/18/25 09:00 Examination: LUNGS:Normal, CVS:Normal, MSK:Normal laboratory and microbiology Laboratory Tests 01/18/25 03:15 Test 01/18/25 03:15 Range/Units Serum Glucose 326 H 74-106 mg/dL Microbiology Date/Time Source Procedure Growth Status 01/16/25 14:00 Blood Blood Culture - Preliminary NO GROWTH AFTER 24 HOURS OF INCUBATION. Resulted 01/13/25 17:10 Nose MRSA Screen - Final Complete 01/13/25 13:05 Sputum Gram Stain - Final Complete 01/13/25 13:05 Sputum Respiratory Culture - Final Complete 01/13/25 11:42 Peritoneal Fluid Gram Stain - Final Resulted 01/13/25 11:42 Peritoneal Fluid Anaerobic Culture - Preliminary Resulted 01/13/25 11:42 Aerobic Culture - Preliminary Escherichia coli Klebsiella pneumoniae Resulted Problem List/Assessment/Plan Problem List/Assessment/Plan Acute kidney injury superimposed Chronic Kidney Disease secondary hemodynamic mediated Acute respiratory failure, patient intubated on ventilator Acute perforation of the abdomen / bowel ischemia s/p exlap History of atrial fibrillation previously on anticoagulation 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 Insulin sliding scale We will continue to follow up Plan discussed with: Other (Nurse) Dietary Evaluation Review Comments: Nutrition Recommendation: 1) TPN to meet at least 75% estimated needs within 7 days 2) Monitor NPO status, lab values, wt trend, I/O Expected Outcomes/Goals: To meet >75% estimated needs Lab values to improve Fu 2-3 days CC Plasma Assessment Blood Product Administration S: [id number] LAKESHA REINA MD Jan 18, 2025 09:53
--- NOTE | 2025-01-18 10:03 | DVHPN2 ---
Consult Progress Note Date Seen: Jan 18, 2025 Subjective Other Systems: No overnight cardiac events reported Objective vital signs Vital Sign Date Time Temp Pulse Resp B/P (MAP) Pulse Ox O2 Delivery O2 Flow Rate FiO2 01/18/25 09:49 103 14 116/60 (78) 98 30 01/18/25 07:15 100.0 212.0 01/18/25 06:00 Mechanical Ventilator+ Total Intake and Output 01/17/25 01/17/25 01/18/25 15:00 23:00 07:00 Intake Total 728.0 ml 561 ml 392 ml Output Total 1210 ml 2650 ml Balance 728.0 ml -649 ml -2258 ml medications Current Medications Medications Dose Ordered Sig/Isaura Route Start Time Stop Time Status Last Admin Dose Admin Acetaminophen 650 mg Q6HP PRN PO 01/13/25 07:45 Pantoprazole Sodium 40 mg DAILY IV 01/13/25 10:00 01/17/25 11:16 40 MG Cefazolin Sodium 50 ml @ 100 mls/hr Q8HR IV 01/13/25 14:00 UNV Midazolam HCl 50 ml @ 1 mls/hr Q24H IV 01/13/25 13:30 01/17/25 18:47 1 MLS/HR Fentanyl Citrate 250 ml @ 2.5 mls/hr Q24H IV 01/13/25 13:30 01/17/25 07:50 5 MLS/HR Norepinephrine Bitartrate 250 ml @ 3.75 mls/hr Q24H IV 01/13/25 13:30 01/16/25 18:41 3.75 MLS/HR Vancomycin HCl 0 ml @ 0 mls/hr UD IV 01/13/25 15:00 Vasopressin 20 units/Sodium Chloride 100 ml @ 9 mls/hr Q11H7M IV 01/13/25 18:45 Vasopressin 20 units/Sodium Chloride 100 ml @ 9 mls/hr Q11H7M IV 01/13/25 18:45 UNV Phenylephrine HCl 250 ml @ 30 mls/hr Q8H20M IV 01/13/25 18:45 01/14/25 23:43 30 MLS/HR Amino Acids 0 ml @ 0 mls/hr PER PHARMACY IV 01/16/25 11:15 Diagnostic Test (Pha) 1 strip Q6HR 01/16/25 12:00 01/18/25 06:20 1 STRIP Insulin Human Regular FOLLOW SLIDING SCALE Q6HR SC 01/16/25 12:00 01/18/25 06:20 20 UNITS Dextrose 50 ml UD IV 01/16/25 12:00 Potassium Chloride 100 ml @ 50 mls/hr Q2H IV 01/16/25 12:45 01/16/25 18:44 UNV Cefepime HCl 50 ml @ 12.5 mls/hr DAILY IV 01/17/25 10:00 01/17/25 11:17 12.5 MLS/HR Metoprolol Tartrate 12.5 mg BID PO 01/17/25 22:00 Hydralazine HCl 10 mg Q6HP PRN IV 01/17/25 11:00 Fat Emulsion Intravenous 50 ml/ Potassium Chloride 60 meq/ Calcium Gluconate 7 meq/Magnesium Sulfate 8 meq/ Multivitamins 10 ml/Chromium/ Copper/Manganese/ Zinc 1 ml/Insulin Human Regular 13 units/Amino Acids/ Dextrose 1,208.1837 ml @ 50 mls/hr [id number] IV 01/17/25 22:00 01/18/25 21:59 01/17/25 21:33 50 MLS/HR Insulin Glargine 10 units QAM [place] 01/18/25 09:00 Fat Emulsion Intravenous 100 ml/Potassium Chloride 40 meq/ Potassium Phosphate 44 meq/ Calcium Gluconate 2.3 meq/Magnesium Sulfate 12 meq/ Multivitamins 10 ml/Chromium/ Copper/Manganese/ Zinc 1 ml/Insulin Human Regular 17 units/Amino Acids/ Dextrose/Purified Water 1,399.1162 ml @ 58 mls/hr Q24H8M IV 01/18/25 22:00 01/19/25 21:59 Examination: GENERAL:Abnormal (Critically ill, +third spacing), LUNGS:Abnormal (Endotracheally intubated), CVS:Normal (Sinus tachycardia with PACs), NEURO:Abnormal (Chemically sedated) laboratory and microbiology Laboratory Tests 01/18/25 03:15 Test 01/18/25 03:15 Range/Units Serum Glucose 326 H 74-106 mg/dL Problem List/Assessment/Plan Problem List/Assessment/Plan Septic shock with acute peritonitis with perforated bowel status post exploratory laparotomy Paroxysmal atrial fibrillation, Stage 3A, now NSR with PACs (on low-dose Eliquis) Acute anemia requiring PRBC transfusions Severe thrombocytopenia Hypertriglyceridemia, newly diagnosed Acute kidney injury Thyroid disease Type 2 diabetes mellitus, uncontrolled (Hgb A1c 8.2%) Obesity Plan/Recommendations (Dr. Ann) Transthoracic echocardiogram revealed a LVEF of 65% with mild LV diastolic dysfunction and no significant valvular structural abnormalities noted. Known history of atrial fibrillation on low-dose Eliquis therapy at home ([id number] VASc score: 5 points, HAS-BLED score: 1 point). Currently sinus rhythm with PACs and transient sinus bradycardia in the setting of hypothermia. DOAC therapy contraindicated given acute anemia and thrombocytopenia. Monitor blood levels closely. Continue with SCDs. Cardiac stable. Kindly call Cardiology on as needed basis. Thank you for allowing us to care for this patient. Critical care time: 30 min. This medical document was created using an electronic medical record system with voice recognition software and computerized dictation system. Although this document has been carefully reviewed, there might still be some phonetic and typographical errors. Occasional wrong-word or ``sound-alike substitutions may have occurred due to the inherent limitations of voice recognition software. These areas are purely typographical due to imperfections of the software programs and do not reflect any compromise in the patient's medical care. Please read the chart carefully and recognize, using context, where these substitutions have occurred. Plan discussed with: Son, Other Dietary Evaluation Review Comments: Nutrition Recommendation: 1) TPN to meet at least 75% estimated needs within 7 days 2) Monitor NPO status, lab values, wt trend, I/O Expected Outcomes/Goals: To meet >75% estimated needs Lab values to improve Fu 2-3 days CC Plasma Assessment Blood Product Administration S: [id number] Date of Service: Jan 18, 2025 Billing Provider: LOYD MCCOLLUM Cardiology Common Codes: 31105-VNPQGLSA CARE 30-74 MIN LOYD MCCOLLUM Jan 18, 2025 10:03
[2025-01-18] MEDS: ALBUMIN 25% 100 ML IV SCH (10:55)
[2025-01-18] MEDS: INSULIN LANTUS (GLARGINE) 1 /0.01ml (100units/ml) SC SCH (11:12)
[2025-01-18 11:24] LABS: Base Excess 2.5 mmol/L (-2.0-3.0)
--- NOTE | 2025-01-18 12:15 | MEDREC ---
[facility] ASP Intervention Section I [facility] ASP Intervention: Deescalate AB based on CS (May consider de-escalating Cefepime to Ceftriaxone based off culture results if/when clincally appropriate.) JERZY LUGO [facility] RESIDENT Jan 18, 2025 12:15
[2025-01-18] MEDS: VANCOMYCIN 500mg/100mL 100 ML IV ONE (15:17)
[2025-01-18] MEDS: FUROSEMIDE 20 MG/2 ML VIAL IV ONE (15:36)
[2025-01-18] MEDS: FLUCONAZOLE 200MG/100ML 100 ML IV ONE (16:21)
--- NOTE | 2025-01-18 18:56 | DVHPNRES ---
Progress Note Date Seen: Jan 18, 2025 Resident Creating Document: DG YOUNG RESIDENT Has the PT tested + for MRSA If YES, has PT been informed?: No Medical Necessity Reason Pt with a Central, PICC or Fol: Yes The following are medically ne: Central Line, Leach Catheter Reason for leach catheter: Strict I&O Subjective Review of Systems This is a 80-year-old female with past medical history of hypertension, AFib on Eliquis, type 2 diabetes mellitus, autoimmune disease, CKD, presented to the ED with a chief complaint of severe abdominal pain for last 2 4 days prior to this visit. The i.e. the patient has intermittent able minimal pain for last 4 month, getting worse that prompted this visit. mentioned recently this patient had a fall few weeks ago and chest x-ray demonstrated healed fracture on right 4th and 5th ribs. Before intubation the patient described the abdominal pain is sharp constant pain, diffuse in nature, 9/10, radiates to the back and associated with constipation. He denies fever, chills, shortness of breath, dizziness, nausea, vomiting, hematuria, dysuria, recent traveling, or any positive for Crohn's sick contact or any altered bowel habit. CT abdomen pelvis without IV contrast demonstrated free intraperitoneal likely from visceral perforation of the left abdominal small bowel loops, circumferential wall thickening of left abdominal small bowel loop with more focal local pool of gas adjacent to this thickened small bowel loop. Underwent emergent exploratory laparotomy, lysis of adhesions, extensive lab age, resection of perforated small bowel, enteroenterostomy. Patient was seen and examined on the bedside in ICU. Family was on the bedside. Status post exploratory laparotomy with enteroenterostomy, day 5. She is on mechanical ventilation with FiO2 30%, tidal volume 450 mL, peep 5 and respiratory rate 20. Platelet count improved to 18 and H&H stable. Patient is running low-grade fever overnight and T-max is 100.6. Started again IV fluconazole in addition to continuing IV vancomycin and cefepime. Objective vital signs Vital Sign Date Time Temp Pulse Resp B/P (MAP) Pulse Ox O2 Delivery O2 Flow Rate FiO2 01/18/25 18:00 99 Mechanical Ventilator 01/18/25 18:00 30 30 01/18/25 18:00 100 16 132/68 (89) 01/18/25 12:00 99.7 211.5 Total Intake and Output 01/17/25 01/17/25 01/18/25 15:00 23:00 07:00 Intake Total 728.0 ml 861 ml 448 ml Output Total 1210 ml 2650 ml Balance 728.0 ml -349 ml -2202 ml medications Current Medications Medications Dose Ordered Sig/Isaura Route Start Time Stop Time Status Last Admin Dose Admin Acetaminophen 650 mg Q6HP PRN PO 01/13/25 07:45 Pantoprazole Sodium 40 mg DAILY IV 01/13/25 10:00 01/18/25 10:55 40 MG Cefazolin Sodium 50 ml @ 100 mls/hr Q8HR IV 01/13/25 14:00 UNV Midazolam HCl 50 ml @ 1 mls/hr Q24H IV 01/13/25 13:30 01/17/25 18:47 1 MLS/HR Fentanyl Citrate 250 ml @ 2.5 mls/hr Q24H IV 01/13/25 13:30 01/18/25 15:35 5 MLS/HR Norepinephrine Bitartrate 250 ml @ 3.75 mls/hr Q24H IV 01/13/25 13:30 01/16/25 18:41 3.75 MLS/HR Vancomycin HCl 0 ml @ 0 mls/hr UD IV 01/13/25 15:00 Vasopressin 20 units/Sodium Chloride 100 ml @ 9 mls/hr Q11H7M IV 01/13/25 18:45 UNV Amino Acids 0 ml @ 0 mls/hr PER PHARMACY IV 01/16/25 11:15 Diagnostic Test (Pha) 1 strip Q6HR 01/16/25 12:00 01/18/25 17:44 1 STRIP Insulin Human Regular FOLLOW SLIDING SCALE Q6HR SC 01/16/25 12:00 01/18/25 17:47 16 UNITS Dextrose 50 ml UD IV 01/16/25 12:00 Potassium Chloride 100 ml @ 50 mls/hr Q2H IV 01/16/25 12:45 01/16/25 18:44 UNV Cefepime HCl 50 ml @ 12.5 mls/hr DAILY IV 01/17/25 10:00 01/18/25 11:41 12.5 MLS/HR Hydralazine HCl 10 mg Q6HP PRN IV 01/17/25 11:00 Fat Emulsion Intravenous 50 ml/ Potassium Chloride 60 meq/ Calcium Gluconate 7 meq/Magnesium Sulfate 8 meq/ Multivitamins 10 ml/Chromium/ Copper/Manganese/ Zinc 1 ml/Insulin Human Regular 13 units/Amino Acids/ Dextrose 1,208.1837 ml @ 50 mls/hr [id number] IV 01/17/25 22:00 01/18/25 21:59 01/17/25 21:33 50 MLS/HR Insulin Glargine 10 units QAM SC 01/18/25 09:00 01/18/25 11:12 10 UNITS Fat Emulsion Intravenous 100 ml/Potassium Chloride 40 meq/ Potassium Phosphate 44 meq/ Calcium Gluconate 2.3 meq/Magnesium Sulfate 12 meq/ Multivitamins 10 ml/Chromium/ Copper/Manganese/ Zinc 1 ml/Insulin Human Regular 17 units/Amino Acids/ Dextrose/Purified Water 1,399.1162 ml @ 58 mls/hr Q24H8M IV 01/18/25 22:00 01/19/25 21:59 Albumin Human 100 ml @ 100 mls/hr Q8H IV 01/18/25 10:00 01/19/25 02:59 01/18/25 17:48 100 MLS/HR Furosemide 20 mg DAILY IV 01/19/25 10:00 Fluconazole 100 ml @ 100 mls/hr DAILY IV 01/19/25 10:00 Examination Examination General: RASS -3, afebrile, mucosae are moist Cardiovascular: Normal S1 and S2. No murmurs, gallops or rubs Respiratory: Mechanically assisted ventilation, equal bilateral airway entree. Decreased breath sounds on both sides lower lung field Abdomen: Soft, nontender, no organomegaly, no bowel sounds, surgical scar on the midline, no sign of erythema or oozing from the incision site MSK/skin: hemorrhagic blisters in bilateral upper extremity and oozing from this, skin is mottled more pronounced in hands and feet bilaterally, Mobilization of limbs cannot be evaluated. Skin is dry and warm. Neurological: Orientation cannot be assessed. No apparent motor no sensitive deficits. Pupils are isocoric and reactive laboratory and microbiology Laboratory Tests 01/18/25 03:15 Test 01/18/25 03:15 Range/Units Serum Glucose 326 H 74-106 mg/dL Microbiology Date/Time Source Procedure Growth Status 01/16/25 14:00 Blood Blood Culture - Preliminary NO GROWTH AFTER 48 HOURS OF INCUBATION. Resulted 01/13/25 17:10 Nose MRSA Screen - Final Complete 01/13/25 13:05 Sputum Gram Stain - Final Complete 01/13/25 13:05 Sputum Respiratory Culture - Final Complete 01/13/25 11:42 Peritoneal Fluid Gram Stain - Final Resulted 01/13/25 11:42 Peritoneal Fluid Anaerobic Culture - Final Resulted 01/13/25 11:42 Aerobic Culture - Preliminary Escherichia coli Klebsiella pneumoniae Resulted Labs and/or images reviewed: Labs reviewed by me, Image(s) reviewed by me Problem List/Assessment/Plan Problem List/Assessment/Plan Assessment and plan: NEURO: Acute metabolic encephalopathy secondary to acute hypoxic respiratory failure Status post intubation RASS score: -3 CARDIOVASCULAR: Septic shock secondary to perforation of the hollow viscus Paroxysmal atrial fibrillation with secondary hypercoagulable state Chronic diastolic heart failure with preserved ejection fraction - echo demonstrated EF 65%, mild LV diastolic dysfunction - Chest xray demonstrated bibasilar atelectasis - [id number] score more than 5 - hold Lovenox because of severe thrombocytopenia PULMONARY: Acute hypoxic respiratory failure secondary to bilateral pleural effusion Volume overload due to chronic HFpEF - chest x-ray demonstrated bilateral hazy opacities - IV Lasix 20 mg daily GASTROINTESTINAL: Perforation of the small bowel, status post exploratory laparotomy Transaminitis secondary to shock GENITOURINARY: ISRRAEL on CKD secondary to shock/VMN ENDOCRINE: History of hypothyroidism Type 2 diabetes mellitus, hemoglobin A1c 8.2 - mild sliding scale of insulin METABOLIC: Hyperkalemia secondary to ISRRAEL Moderate protein calorie malnutrition, albumin 2.6 Anion gap metabolic acidosis secondary to bowel ischemia leading to lactic acidosis HEME: Acute on chronic anemia secondary to hemodilution/post surgical Severe thrombocytopenia likely secondary to HIT Possible heparin-induced thrombocytopenia type 2 Acute DVT of right upper extremity - 2 unit of PRBC and platelet given since the surgery INFECTIOUS DISEASE: Sepsis with septic shock secondary to perforation of the small bowel - respiratory culture negative, peritoneal fluid culture demonstrated E coli, Klebsiella - continue IV vancomycin, IV cefepime and IV fluconazole DIET: TPN DVT prophylax: Hold GI prophylaxis: Pantoprazole Bowel regimen: Code status: Full code LINES/DRAINS/ACCESS: ETT: Intubated on 01/14/25 IV access: Left IJ placed on 01/14/2025 Drips: Versed and fentanyl Leach catheter: Placed on 0 9 /0 5/25 DISPOSITION: ICU Patient's status discussed with Son, brother and sister Critical care time spent more than 81 minutes, including patient care, chart review, and updating the family. Excluding any procedures. Case discussed with Dr. Self Plan discussed with: Son, Other (Brother, sister, RN) My Orders My Orders Orders - DG YOUNG Procedure Category Date Status Time Chest Portable XY 01/18/25 Resulted 04:00 Insulin Lantus PHA 01/18/25 In Process (Glargine) (Lantus) 09:00 Dietary Evaluation Review Comments: Nutrition Recommendation: 1) TPN to meet at least 75% estimated needs within 7 days 2) Monitor NPO status, lab values, wt trend, I/O Expected Outcomes/Goals: To meet >75% estimated needs Lab values to improve Fu 2-3 days CC Plasma Assessment Blood Product Administration S: [id number] Date of Service: Jan 18, 2025 Billing Provider: ZBIGNIEW SELF MD Common Visit Codes: 50356-[id number] CARE 30-74 MIN, 58621-[id number] CARE-EACH +30MIN DG YOUNG Jan 18, 2025 18:56 ZBIGNIEW SELF MD Jan 19, 2025 13:19
[2025-01-18] MEDS: TPN PER PHARMACY IV NR (21:49)
[2025-01-19] VITALS (109 sets, daily range): BP systolic 98–192; BP diastolic 41–91; PULSE 99–120; RESP 15–24; TEMP 97.5–100.9; O2SAT 68–100
[2025-01-19 04:50] LABS: Nucleated Red Blood Cells % 0.1 %
[2025-01-19 04:57] LABS: Hematocrit 27.7 % (36.0-46.0); Hemoglobin 9.2 g/dL (12.2-16.2); Mean Corpuscular Hemoglobin 29.6 pg (28.0-32.0); Mean Corpuscular Volume 89.5 fL (80.0-100.0)
[2025-01-19] MEDS ORDERED: ACETAMINOPHEN IV 1000 MG/100ML (10MG/ML) IV PRN (05:00)
[2025-01-19 05:19] LABS: Alanine Aminotransferase 12 U/L (7-40); Alkaline Phosphatase 65 U/L (46-116); Anion Gap 8 (5-15); BUN/Creatinine Ratio 41.6 (10.0-20.0); Carbon Dioxide 30 mmol/L (20-31); Chloride 105 mmol/L (98-107); Magnesium 1.9 mg/dL (1.6-2.6); Potassium 3.9 mmol/L (3.5-5.1); Sodium 143 mmol/L (136-145)
[2025-01-19 05:26] LABS: Albumin 2.9 g/dL (3.2-4.8); Bilirubin, Total 1.6 mg/dL (0.2-1.0); Blood Urea Nitrogen 47 mg/dL (9-23); Calcium 8.3 mg/dL (8.7-10.4); Glucose 347 mg/dL (74-106); Total Protein 4.6 g/dL (5.7-8.2)
--- NOTE | 2025-01-19 07:16 | DVH ---
CHEST RADIOGRAPH Indication: Mechanical ventilation Technique: Single frontal view of the chest was obtained Comparison: XY CHEST PORTABLE on DOS: 01/18/25 FINDINGS: Lines and Tubes: The endotracheal tube terminates 3.7 cm above the vijay. There is a left central v enous catheter with its tip terminating in the superior vena cava similar to prior study. The enteric tube courses below the left hemidiaphragm and the tip extends outside the field of view. Lungs: Bilateral pulmonary opacities. Pleura: Similar bilateral pleural effusions. No pneumothorax. Cardiomediastinal contours: Stable cardiomegaly. Bones: No acute osseous abnormality. IMPRESSION: 1. No significant change compared to prior exam allowing for differences in technique.
[2025-01-19 07:22] LABS: Base Excess 2.5 mmol/L (-2.0-3.0)
--- NOTE | 2025-01-19 08:56 | DVHPN2 ---
Subjective Date Seen: Jan 19, 2025 Post op day Post op day: 6 Patient reports: No new complaints (Patient is intubated and sedated. Worsening thrombocytopenia today. Renal function is improving. Hematology oncology consult for severe thrombocytopenia. Transfusing platelets. Monitor for bleeding) Objective Vitals Vital Sign Date Time Temp Pulse Resp B/P (MAP) Pulse Ox O2 Delivery O2 Flow Rate FiO2 01/19/25 07:28 106 17 121/60 (80) 100 40 01/19/25 06:15 100.8 213.4 01/19/25 06:00 Mechanical Ventilator+ Total Intake and Output 01/18/25 01/18/25 01/19/25 15:00 23:00 07:00 Intake Total 561.0 ml 288 ml 548 ml Output Total 1510 ml 1880 ml Balance 561.0 ml -1222 ml -1332 ml Medications Current Medications Medications Dose Ordered Sig/Isaura Route Start Time Stop Time Status Last Admin Dose Admin Pantoprazole Sodium 40 mg DAILY IV 01/13/25 10:00 01/18/25 10:55 40 MG Cefazolin Sodium 50 ml @ 100 mls/hr Q8HR IV 01/13/25 14:00 UNV Midazolam HCl 50 ml @ 1 mls/hr Q24H IV 01/13/25 13:30 01/17/25 18:47 1 MLS/HR Fentanyl Citrate 250 ml @ 2.5 mls/hr Q24H IV 01/13/25 13:30 01/18/25 15:35 5 MLS/HR Norepinephrine Bitartrate 250 ml @ 3.75 mls/hr Q24H IV 01/13/25 13:30 01/16/25 18:41 3.75 MLS/HR Vancomycin HCl 0 ml @ 0 mls/hr UD IV 01/13/25 15:00 Vasopressin 20 units/Sodium Chloride 100 ml @ 9 mls/hr Q11H7M IV 01/13/25 18:45 UNV Amino Acids 0 ml @ 0 mls/hr PER PHARMACY IV 01/16/25 11:15 Diagnostic Test (Pha) 1 strip Q6HR 01/16/25 12:00 01/19/25 05:46 1 STRIP Insulin Human Regular FOLLOW SLIDING SCALE Q6HR SC 01/16/25 12:00 01/19/25 05:39 12 UNITS Dextrose 50 ml UD IV 01/16/25 12:00 Potassium Chloride 100 ml @ 50 mls/hr Q2H IV 01/16/25 12:45 01/16/25 18:44 UNV Cefepime HCl 50 ml @ 12.5 mls/hr DAILY IV 01/17/25 10:00 01/18/25 11:41 12.5 MLS/HR Hydralazine HCl 10 mg Q6HP PRN IV 01/17/25 11:00 Insulin Glargine 10 units QAM SC 01/18/25 09:00 01/19/25 05:47 10 UNITS Fat Emulsion Intravenous 100 ml/Potassium Chloride 40 meq/ Potassium Phosphate 44 meq/ Calcium Gluconate 2.3 meq/Magnesium Sulfate 12 meq/ Multivitamins 10 ml/Chromium/ Copper/Manganese/ Zinc 1 ml/Insulin Human Regular 17 units/Amino Acids/ Dextrose/Purified Water 1,399.1162 ml @ 58 mls/hr Q24H8M IV 01/18/25 22:00 01/19/25 21:59 01/18/25 21:49 58 MLS/HR Furosemide 20 mg DAILY IV 01/19/25 10:00 Fluconazole 100 ml @ 100 mls/hr DAILY IV 01/19/25 10:00 Labs and Microbiology Laboratory Tests 01/19/25 04:00 Test 01/19/25 04:00 Range/Units Serum Glucose 347 H 74-106 mg/dL Ass/Plan Labs and/or images reviewed: Labs reviewed by me, Image(s) reviewed by me Problem List Assessment and plan: NEURO: Acute metabolic encephalopathy secondary to acute hypoxic respiratory failure Status post intubation RASS score: -3 CARDIOVASCULAR: Septic shock secondary to perforation of the hollow viscus Paroxysmal atrial fibrillation with secondary hypercoagulable state Chronic diastolic heart failure with preserved ejection fraction - echo demonstrated EF 65%, mild LV diastolic dysfunction - Chest xray demonstrated bibasilar atelectasis - [id number] score more than 5 - hold Lovenox because of severe thrombocytopenia PULMONARY: Acute hypoxic respiratory failure secondary to bilateral pleural effusion Volume overload due to chronic HFpEF - chest x-ray demonstrated bilateral hazy opacities - IV Lasix 20 mg daily GASTROINTESTINAL: Perforation of the small bowel, status post exploratory laparotomy Transaminitis secondary to shock GENITOURINARY: ISRRAEL on CKD secondary to shock/VMN ENDOCRINE: History of hypothyroidism Type 2 diabetes mellitus, hemoglobin A1c 8.2 - mild sliding scale of insulin METABOLIC: Hyperkalemia secondary to ISRRAEL Moderate protein calorie malnutrition, albumin 2.6 Anion gap metabolic acidosis secondary to bowel ischemia leading to lactic acidosis HEME: Acute on chronic anemia secondary to hemodilution/post surgical Severe thrombocytopenia likely secondary to HIT Possible heparin-induced thrombocytopenia type 2 Acute DVT of right upper extremity - 2 unit of PRBC and platelet given since the surgery INFECTIOUS DISEASE: Sepsis with septic shock secondary to perforation of the small bowel - respiratory culture negative, peritoneal fluid culture demonstrated E coli, Klebsiella - continue IV vancomycin, IV cefepime and IV fluconazole DIET: TPN DVT prophylax: Hold GI prophylaxis: Pantoprazole Bowel regimen: Code status: Full code LINES/DRAINS/ACCESS: ETT: Intubated on 01/14/25 IV access: Left IJ placed on 01/14/2025 Drips: Versed and fentanyl Perez catheter: Placed on 0 0 10/03 DISPOSITION: ICU Patient's status discussed with Son, brother and sister Critical care time spent more than 81 minutes, including patient care, chart review, and updating the family. Excluding any procedures. Case discussed with Dr. Reed Assessment/Plan 01/19/25 s/p Exploratory laparotomy, lysis of adhesions, extensive lavage, resection of perforated small bowel, enteroenterostomy. unchanged from yesterday abdomen soft, non distended, CARMEN drainage clear serous, no bowel activity, febrile, urine output ok, continues with thrombocytopenia, Plan: continue current treatment discussed with Dr. Christy Plan discussed with Dr. Christy Visit Coding Surgery Date of Service if different f: Jan 19, 2025 Billing Provider: MELVA CHRISTY MD Surgery Visit Codes: [id number] INP/OBS CARE(HIGH) CLAYTON POWERS NP Jan 19, 2025 08:56
[2025-01-19] MEDS: FLUCONAZOLE 200MG/100ML 100 ML IV SCH (09:58)
[2025-01-19] MEDS: FUROSEMIDE 20 MG/2 ML VIAL IV SCH (10:00)
[2025-01-19] MEDS: POTASSIUM PHOSPHATE 22 MEQ in SODIUM CHL 0.9% 100 ML IV ONE (11:14)
[2025-01-19] MEDS: ACCU-CHEK COMFORT CURVE STRIP VI SCH (12:05)
[2025-01-19] MEDS: InsuLIN REG 1unit/0.01ml Soln (100units/ml) SC SCH ×2 (12:05→18:00)
--- NOTE | 2025-01-19 13:26 | DVHPN2 ---
Progress Note Date Seen: Jan 19, 2025 Has the PT tested + for MRSA If YES, has PT been informed?: No Medical Necessity Reason Pt with a Central, PICC or Fol: Yes The following are medically ne: Central Line, Leach Catheter Reason for leach catheter: Strict I&O Subjective Review of Systems: RESPIRATORY:Abnormal Other Systems: Patient seen and examined by myself today in follow-up, patient remained intubated on ventilator Objective vital signs Vital Sign Date Time Temp Pulse Resp B/P (MAP) Pulse Ox O2 Delivery O2 Flow Rate FiO2 01/19/25 12:00 20 100 Mechanical Ventilator+ 40 40 01/19/25 12:00 107 01/19/25 11:59 109/50 (69) 01/19/25 11:15 98.8 209.8 Total Intake and Output 01/18/25 01/18/25 01/19/25 15:00 23:00 07:00 Intake Total 561.0 ml 288 ml 612 ml Output Total 1510 ml 1880 ml Balance 561.0 ml -1222 ml -1268 ml medications Current Medications Medications Dose Ordered Sig/Isaura Route Start Time Stop Time Status Last Admin Dose Admin Pantoprazole Sodium 40 mg DAILY IV 01/13/25 10:00 01/19/25 09:59 40 MG Cefazolin Sodium 50 ml @ 100 mls/hr Q8HR IV 01/13/25 14:00 UNV Midazolam HCl 50 ml @ 1 mls/hr Q24H IV 01/13/25 13:30 01/17/25 18:47 1 MLS/HR Fentanyl Citrate 250 ml @ 2.5 mls/hr Q24H IV 01/13/25 13:30 01/18/25 15:35 5 MLS/HR Norepinephrine Bitartrate 250 ml @ 3.75 mls/hr Q24H IV 01/13/25 13:30 01/16/25 18:41 3.75 MLS/HR Vancomycin HCl 0 ml @ 0 mls/hr UD IV 01/13/25 15:00 Vasopressin 20 units/Sodium Chloride 100 ml @ 9 mls/hr Q11H7M IV 01/13/25 18:45 UNV Amino Acids 0 ml @ 0 mls/hr PER PHARMACY IV 01/16/25 11:15 Potassium Chloride 100 ml @ 50 mls/hr Q2H IV 01/16/25 12:45 01/16/25 18:44 UNV Cefepime HCl 50 ml @ 12.5 mls/hr DAILY IV 01/17/25 10:00 01/19/25 09:59 12.5 MLS/HR Hydralazine HCl 10 mg Q6HP PRN IV 01/17/25 11:00 Insulin Glargine 10 units QAM SC 01/18/25 09:00 01/19/25 05:47 10 UNITS Fat Emulsion Intravenous 100 ml/Potassium Chloride 40 meq/ Potassium Phosphate 44 meq/ Calcium Gluconate 2.3 meq/Magnesium Sulfate 12 meq/ Multivitamins 10 ml/Chromium/ Copper/Manganese/ Zinc 1 ml/Insulin Human Regular 17 units/Amino Acids/ Dextrose/Purified Water 1,399.1162 ml @ 58 mls/hr Q24H8M IV 01/18/25 22:00 01/19/25 21:59 01/18/25 21:49 58 MLS/HR Furosemide 20 mg DAILY IV 01/19/25 10:00 01/19/25 10:00 20 MG Fluconazole 100 ml @ 100 mls/hr DAILY IV 01/19/25 10:00 01/19/25 09:58 100 MLS/HR Diagnostic Test (Pha) 1 strip Q6HR 01/19/25 12:00 01/19/25 12:05 1 STRIP Insulin Human Regular Q6HR SC 01/19/25 12:00 01/19/25 12:05 9 UNITS Fat Emulsion Intravenous 100 ml/Potassium Chloride 40 meq/ Potassium Phosphate 44 meq/ Calcium Gluconate 2.3 meq/Magnesium Sulfate 14 meq/ Multivitamins 10 ml/Chromium/ Copper/Manganese/ Zinc 1 ml/Insulin Human Regular 17 units/Amino Acids/ Dextrose/Purified Water 1,299.6162 ml @ 54 mls/hr Q24H5M IV 01/19/25 22:00 01/20/25 21:59 Examination: LUNGS:Normal, CVS:Normal, MSK:Normal laboratory and microbiology Laboratory Tests 01/19/25 04:00 Test 01/19/25 04:00 Range/Units Serum Glucose 347 H 74-106 mg/dL Microbiology Date/Time Source Procedure Growth Status 01/16/25 14:00 Blood Blood Culture - Preliminary NO GROWTH AFTER 48 HOURS OF INCUBATION. Resulted 01/13/25 17:10 Nose MRSA Screen - Final Complete 01/13/25 13:05 Sputum Gram Stain - Final Complete 01/13/25 13:05 Sputum Respiratory Culture - Final Complete 01/13/25 11:42 Peritoneal Fluid Gram Stain - Final Resulted 01/13/25 11:42 Peritoneal Fluid Anaerobic Culture - Final Resulted 01/13/25 11:42 Aerobic Culture - Preliminary Escherichia coli Klebsiella pneumoniae Resulted Problem List/Assessment/Plan Problem List/Assessment/Plan Acute kidney injury superimposed Chronic Kidney Disease secondary hemodynamic mediated Acute respiratory failure, patient intubated on ventilator Acute perforation of the abdomen / bowel ischemia s/p exlap History of atrial fibrillation previously on anticoagulation 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 K-Phos IV piggyback Insulin sliding scale We will continue to follow up Plan discussed with: Other (Nurse) Dietary Evaluation Review Comments: Nutrition Recommendation: 1) TPN to meet at least 75% estimated needs within 7 days 2) Monitor NPO status, lab values, wt trend, I/O Expected Outcomes/Goals: To meet >75% estimated needs Lab values to improve Fu 2-3 days CC Plasma Assessment Blood Product Administration S: [id number] LAKESHA REINA MD Jan 19, 2025 13:26
[2025-01-19] MEDS: VANCOMYCIN 500mg/100mL 100 ML IV ONE (13:59)
--- NOTE | 2025-01-19 14:21 | MEDREC ---
[facility] Intervention Section I [facility] Intervention: Deescalate AB based on CS (May consider de-escalating Cefepime to Ceftriaxone based off culture results if/when clincally appropriate.), Review courses of therapy (Please consider d/c vancomycin as Staph. Aureus is not a common pathogen in [facility]) MACKENZIE THAKKAR [facility] RESIDENT Jan 19, 2025 14:21
[2025-01-19] MEDS: MEROPENEM 1GM IVPB 50 ML IV ONE (15:09)
--- NOTE | 2025-01-19 18:03 | DVHPNRES ---
Progress Note Date Seen: Jan 19, 2025 Resident Creating Document: DG YOUNG RESIDENT Has the PT tested + for MRSA If YES, has PT been informed?: No Medical Necessity Reason Pt with a Central, PICC or Fol: Yes The following are medically ne: Central Line, Leach Catheter Reason for leach catheter: Strict I&O Subjective Review of Systems This is a 80-year-old female with past medical history of hypertension, AFib on Eliquis, type 2 diabetes mellitus, autoimmune disease, CKD, presented to the ED with a chief complaint of severe abdominal pain for last 2 4 days prior to this visit. The i.e. the patient has intermittent able minimal pain for last 4 month, getting worse that prompted this visit. mentioned recently this patient had a fall few weeks ago and chest x-ray demonstrated healed fracture on right 4th and 5th ribs. Before intubation the patient described the abdominal pain is sharp constant pain, diffuse in nature, 9/10, radiates to the back and associated with constipation. He denies fever, chills, shortness of breath, dizziness, nausea, vomiting, hematuria, dysuria, recent traveling, or any positive for Crohn's sick contact or any altered bowel habit. CT abdomen pelvis without IV contrast demonstrated free intraperitoneal likely from visceral perforation of the left abdominal small bowel loops, circumferential wall thickening of left abdominal small bowel loop with more focal local pool of gas adjacent to this thickened small bowel loop. Underwent emergent exploratory laparotomy, lysis of adhesions, extensive lab age, resection of perforated small bowel, enteroenterostomy. Patient was seen and examined on the bedside in ICU. Family was on the bedside. Status post exploratory laparotomy with enteroenterostomy, day 6. She is on mechanical ventilation with FiO2 30%, tidal volume 450 mL, peep 5 and respiratory rate 20. Platelet count 16 and H&H stable. Patient is running low- grade fever overnight and T-max is 100.6. Changed IV cefepime to IV meropenem for more broad Gram-negative coverage and continue IV vancomycin and fluconazole. 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 Objective vital signs Vital Sign Date Time Temp Pulse Resp B/P (MAP) Pulse Ox O2 Delivery O2 Flow Rate FiO2 01/19/25 17:15 99.9 117 17 126/53 (77) 100 211.8 01/19/25 16:00 40 01/19/25 16:00 Mechanical Ventilator+ Total Intake and Output 01/18/25 01/18/25 01/19/25 15:00 23:00 07:00 Intake Total 561.0 ml 288 ml 612 ml Output Total 1510 ml 1880 ml Balance 561.0 ml -1222 ml -1268 ml medications Current Medications Medications Dose Ordered Sig/Isaura Route Start Time Stop Time Status Last Admin Dose Admin Pantoprazole Sodium 40 mg DAILY IV 01/13/25 10:00 01/19/25 09:59 40 MG Cefazolin Sodium 50 ml @ 100 mls/hr Q8HR IV 01/13/25 14:00 UNV Midazolam HCl 50 ml @ 1 mls/hr Q24H IV 01/13/25 13:30 01/17/25 18:47 1 MLS/HR Fentanyl Citrate 250 ml @ 2.5 mls/hr Q24H IV 01/13/25 13:30 01/18/25 15:35 5 MLS/HR Norepinephrine Bitartrate 250 ml @ 3.75 mls/hr Q24H IV 01/13/25 13:30 01/16/25 18:41 3.75 MLS/HR Vancomycin HCl 0 ml @ 0 mls/hr UD IV 01/13/25 15:00 Vasopressin 20 units/Sodium Chloride 100 ml @ 9 mls/hr Q11H7M IV 01/13/25 18:45 UNV Amino Acids 0 ml @ 0 mls/hr PER PHARMACY IV 01/16/25 11:15 Potassium Chloride 100 ml @ 50 mls/hr Q2H IV 01/16/25 12:45 01/16/25 18:44 UNV Hydralazine HCl 10 mg Q6HP PRN IV 01/17/25 11:00 Fat Emulsion Intravenous 100 ml/Potassium Chloride 40 meq/ Potassium Phosphate 44 meq/ Calcium Gluconate 2.3 meq/Magnesium Sulfate 12 meq/ Multivitamins 10 ml/Chromium/ Copper/Manganese/ Zinc 1 ml/Insulin Human Regular 17 units/Amino Acids/ Dextrose/Purified Water 1,399.1162 ml @ 58 mls/hr Q24H8M IV 01/18/25 22:00 01/19/25 21:59 01/18/25 21:49 58 MLS/HR Furosemide 20 mg DAILY IV 01/19/25 10:00 01/19/25 10:00 20 MG Fluconazole 100 ml @ 100 mls/hr DAILY IV 01/19/25 10:00 01/19/25 09:58 100 MLS/HR Diagnostic Test (Pha) 1 strip Q6HR 01/19/25 12:00 01/19/25 12:05 1 STRIP Fat Emulsion Intravenous 100 ml/Potassium Chloride 40 meq/ Potassium Phosphate 44 meq/ Calcium Gluconate 2.3 meq/Magnesium Sulfate 14 meq/ Multivitamins 10 ml/Chromium/ Copper/Manganese/ Zinc 1 ml/Insulin Human Regular 17 units/Amino Acids/ Dextrose/Purified Water 1,299.6162 ml @ 54 mls/hr Q24H5M IV 01/19/25 22:00 01/20/25 21:59 Meropenem 50 ml @ 17 mls/hr Q12H IV 01/20/25 03:00 Insulin Glargine 10 units BID SC 01/19/25 17:00 Insulin Human Regular Q4HR SC 01/19/25 17:00 Examination Examination General: RASS -3, afebrile, mucosae are moist Cardiovascular: Normal S1 and S2. No murmurs, gallops or rubs Respiratory: Mechanically assisted ventilation, equal bilateral airway entree. Decreased breath sounds on both sides lower lung field Abdomen: Soft, nontender, no organomegaly, no bowel sounds, surgical scar on the midline, no sign of erythema or oozing from the incision site MSK/skin: hemorrhagic blisters in bilateral upper extremity and oozing from this, skin is mottled more pronounced in hands and feet bilaterally, Mobilization of limbs cannot be evaluated. Skin is dry and warm. Neurological: Orientation cannot be assessed. No apparent motor no sensitive deficits. Pupils are isocoric and reactive laboratory and microbiology Laboratory Tests 01/19/25 04:00 Test 01/19/25 04:00 Range/Units Serum Glucose 347 H 74-106 mg/dL Microbiology Date/Time Source Procedure Growth Status 01/16/25 14:00 Blood Blood Culture - Preliminary NO GROWTH AFTER 72 HOURS OF INCUBATION. Resulted 01/13/25 17:10 Nose MRSA Screen - Final Complete 01/13/25 13:05 Sputum Gram Stain - Final Complete 01/13/25 13:05 Sputum Respiratory Culture - Final Complete 01/13/25 11:42 Peritoneal Fluid Gram Stain - Final Resulted 01/13/25 11:42 Peritoneal Fluid Anaerobic Culture - Final Resulted 01/13/25 11:42 Aerobic Culture - Preliminary Escherichia coli Klebsiella pneumoniae Resulted Labs and/or images reviewed: Labs reviewed by me, Image(s) reviewed by me Problem List/Assessment/Plan Problem List/Assessment/Plan Assessment and plan: NEURO: Acute metabolic encephalopathy secondary to acute hypoxic respiratory failure Status post intubation RASS score: -3 CARDIOVASCULAR: Septic shock secondary to perforation of the hollow viscus Paroxysmal atrial fibrillation with secondary hypercoagulable state Chronic diastolic heart failure with preserved ejection fraction - echo demonstrated EF 65%, mild LV diastolic dysfunction - Chest xray demonstrated bibasilar atelectasis - [id number] score more than 5 - hold Lovenox because of severe thrombocytopenia PULMONARY: Acute hypoxic respiratory failure secondary to bilateral pleural effusion Volume overload due to chronic HFpEF - chest x-ray demonstrated bilateral hazy opacities - IV Lasix 20 mg daily GASTROINTESTINAL: Perforation of the small bowel, status post exploratory laparotomy Transaminitis secondary to shock GENITOURINARY: ISRRAEL on CKD secondary to shock/VMN ENDOCRINE: History of hypothyroidism Type 2 diabetes mellitus, hemoglobin A1c 8.2 - mild sliding scale of insulin METABOLIC: Hyperkalemia secondary to ISRRAEL Moderate protein calorie malnutrition, albumin 2.6 Anion gap metabolic acidosis secondary to bowel ischemia leading to lactic acidosis HEME: Acute on chronic anemia secondary to hemodilution/post surgical Severe thrombocytopenia likely secondary to HIT Possible heparin-induced thrombocytopenia type 2 Acute DVT of right upper extremity - 2 unit of PRBC and platelet given since the surgery INFECTIOUS DISEASE: Sepsis with septic shock secondary to perforation of the small bowel - respiratory culture negative, peritoneal fluid culture demonstrated E coli, Klebsiella - continue IV vancomycin, IV meropenem and IV fluconazole DIET: TPN DVT prophylax: Hold GI prophylaxis: Pantoprazole Bowel regimen: Code status: Full code LINES/DRAINS/ACCESS: ETT: Intubated on 01/14/25 IV access: Left IJ placed on 01/14/2025 Drips: Versed and fentanyl Leach catheter: Placed on 0 10/03 DISPOSITION: ICU Patient's status discussed with Son, brother and sister Critical care time spent more than 82 minutes, including patient care, chart review, and updating the family. Excluding any procedures. Case discussed with Dr. Self Plan discussed with: Daughter (RN), Son, Other My Orders My Orders Orders - DG YOUNG RESIDENT Procedure Category Date Status Time Chest Portable XY 01/19/25 Resulted 04:00 Abg W/ Co-Ox RT 01/19/25 Logged 04:00 Glucose Blood PHA 01/19/25 In Process (Accu-Chek Comfort 12:00 Meropenem 1gm Ivpb PHA 01/20/25 In Process (Merrem 1gm/50ml) 03:00 Insulin Lantus PHA 01/19/25 In Process (Glargine) (Lantus) 17:00 Insulin R (Human) PHA 01/19/25 In Process (Insulin R) 17:00 Dietary Evaluation Review Comments: Nutrition Recommendation: 1) TPN to meet at least 75% estimated needs within 7 days 2) Monitor NPO status, lab values, wt trend, I/O Expected Outcomes/Goals: To meet >75% estimated needs Lab values to improve Fu 2-3 days CC Plasma Assessment Blood Product Administration S: [id number] Date of Service: Jan 19, 2025 Billing Provider: ZBIGNIEW SELF MD Common Visit Codes: [id number] CARE 30-74 MIN, [id number] CARE-EACH +30MIN DG YOUNG RESIDENT Jan 19, 2025 18:03 ZBIGNIEW SELF MD Jan 20, 2025 11:19
[2025-01-19] MEDS: INSULIN LANTUS (GLARGINE) 1 /0.01ml (100units/ml) SC SCH (18:17)
[2025-01-19] MEDS: TPN PER PHARMACY IV NR (22:22)
[2025-01-20] VITALS (109 sets, daily range): BP systolic 80–173; BP diastolic 36–84; PULSE 91–123; RESP 12–26; TEMP 96.4–100.8; O2SAT 89–100
[2025-01-20] MEDS: MEROPENEM 1GM IVPB 50 ML IV SCH (02:42)
[2025-01-20 04:01] LABS: Alanine Aminotransferase 12 U/L (7-40); Alkaline Phosphatase 69 U/L (46-116); Anion Gap 7 (5-15); BUN/Creatinine Ratio 35.1 (10.0-20.0); Carbon Dioxide 26 mmol/L (20-31); Magnesium 2.2 mg/dL (1.6-2.6); Potassium 4.7 mmol/L (3.5-5.1); Sodium 141 mmol/L (136-145)
[2025-01-20 04:02] LABS: Hematocrit 25.6 % (36.0-46.0); Hemoglobin 8.4 g/dL (12.2-16.2); Nucleated Red Blood Cells % 0.0 %
[2025-01-20 04:05] LABS: Albumin 2.7 g/dL (3.2-4.8); Bilirubin, Total 1.4 mg/dL (0.2-1.0); Blood Urea Nitrogen 40 mg/dL (9-23); Calcium 8.2 mg/dL (8.7-10.4); Chloride 108 mmol/L (98-107); Glucose 359 mg/dL (74-106); Total Protein 4.6 g/dL (5.7-8.2)
[2025-01-20 04:07] LABS: Mean Corpuscular Hemoglobin 29.7 pg (28.0-32.0); Mean Corpuscular Volume 90.6 fL (80.0-100.0)
--- NOTE | 2025-01-20 05:44 | DVH ---
CHEST RADIOGRAPH Indication: Mechanical ventilation Technique: Single frontal view of the chest was obtained COMPARISON: XY CHEST PORTABLE on DOS: 01/19/25, XY CHEST PORTABLE on DOS: 01/18/25, XY CHEST PORTABLE on DOS: 01/17/25, XY CHEST PORTABLE on DOS: 01/16/25, XY CHEST PORTABLE on DOS: 01/15/25 FINDINGS: Lines and Tubes: Endotracheal tube, enteric catheter and left central venous catheter in satisfactory position Lungs: Low lung volumes. Edema. Pleura: Small bilateral pleural effusions No pneumothorax. Cardiomediastinal contours: Unremarkable Bones: Unremarkable IMPRESSION: Unchanged pulmonary edema.
--- NOTE | 2025-01-20 05:53 | DVH ---
ABDOMINAL RADIOGRAPH Indication: No bowel sounds Technique: Single frontal view of the abdomen was obtained Comparison: XY KUB ABDOMEN SINGLE VIEW on DOS: 01/13/25 FINDINGS: Lines and tubes: There is a surgical drain overlying the right upper quadrant and pelvis. There is an enteric tube terminating in the stomach. There are lilly overlying the right hemiabdomen. There are no dilated bowel loops. No supine radiographic evidence of pneumoperitoneum. Bony structure s unremarkable. IMPRESSION: 1. Nonobstructive bowel gas pattern.
[2025-01-20 08:25] LABS: Base Excess 0.7 mmol/L (-2.0-3.0)
--- NOTE | 2025-01-20 09:46 | DVHPN2 ---
Progress Note Date Seen: Jan 20, 2025 Has the PT tested + for MRSA If YES, has PT been informed?: No Medical Necessity Reason Pt with a Central, PICC or Fol: Yes The following are medically ne: Central Line, Leach Catheter Reason for leach catheter: Strict I&O Objective vital signs Vital Sign Date Time Temp Pulse Resp B/P (MAP) Pulse Ox O2 Delivery O2 Flow Rate FiO2 01/20/25 09:35 119 20 98/59 (72) 99 30 01/20/25 06:00 Mechanical Ventilator+ 01/20/25 01:00 99.3 210.7 Total Intake and Output 01/19/25 01/19/25 01/20/25 15:00 23:00 07:00 Intake Total 662.0 ml 522.0 ml 442.5 ml Output Total 2410 ml 1080 ml Balance 662.0 ml -1888.0 ml -637.5 ml medications Current Medications Medications Dose Ordered Sig/Isaura Route Start Time Stop Time Status Last Admin Dose Admin Pantoprazole Sodium 40 mg DAILY IV 01/13/25 10:00 01/19/25 09:59 40 MG Cefazolin Sodium 50 ml @ 100 mls/hr Q8HR IV 01/13/25 14:00 UNV Midazolam HCl 50 ml @ 1 mls/hr Q24H IV 01/13/25 13:30 01/19/25 18:18 1 MLS/HR Fentanyl Citrate 250 ml @ 2.5 mls/hr Q24H IV 01/13/25 13:30 01/18/25 15:35 5 MLS/HR Norepinephrine Bitartrate 250 ml @ 3.75 mls/hr Q24H IV 01/13/25 13:30 01/16/25 18:41 3.75 MLS/HR Vancomycin HCl 0 ml @ 0 mls/hr UD IV 01/13/25 15:00 Vasopressin 20 units/Sodium Chloride 100 ml @ 9 mls/hr Q11H7M IV 01/13/25 18:45 UNV Amino Acids 0 ml @ 0 mls/hr PER PHARMACY IV 01/16/25 11:15 Potassium Chloride 100 ml @ 50 mls/hr Q2H IV 01/16/25 12:45 01/16/25 18:44 UNV Hydralazine HCl 10 mg Q6HP PRN IV 01/17/25 11:00 Furosemide 20 mg DAILY IV 01/19/25 10:00 01/19/25 10:00 20 MG Fluconazole 100 ml @ 100 mls/hr DAILY IV 01/19/25 10:00 01/19/25 09:58 100 MLS/HR Fat Emulsion Intravenous 100 ml/Potassium Chloride 40 meq/ Potassium Phosphate 44 meq/ Calcium Gluconate 2.3 meq/Magnesium Sulfate 14 meq/ Multivitamins 10 ml/Chromium/ Copper/Manganese/ Zinc 1 ml/Insulin Human Regular 17 units/Amino Acids/ Dextrose/Purified Water 1,299.6162 ml @ 54 mls/hr Q24H5M IV 01/19/25 22:00 01/20/25 21:59 01/19/25 22:22 54 MLS/HR Meropenem 50 ml @ 17 mls/hr Q12H IV 01/20/25 03:00 01/20/25 02:42 17 MLS/HR Insulin Human Regular Q4HR SC 01/19/25 17:00 01/20/25 05:33 15 UNITS Insulin Glargine 15 units BID SC 01/20/25 07:45 laboratory and microbiology Laboratory Tests 01/20/25 02:52 Test 01/20/25 02:52 Range/Units Serum Glucose 359 H 74-106 mg/dL Problem List/Assessment/Plan Problem List/Assessment/Plan 01/14/25 afebrile, low dose BP support, received transfusion, I believe her decreased hematocrit is due to hemodilution. abdomen non distended, soft, wound clean and well approximated, drainage serous . remains intubated and sedated 01/16/25 ALKALOSIS, ABDOMEN NON DISTENDED, SOFT, DRAINAGE SEROUS, WOUND CLEAN AND WELL APPROXIMATED 01/17/25 improved, thrombocytopenia possibly made worse by Fluconazole,will DC, abdomen non distended, wound well approximated without infection, CARMEN drainage serous, CVP 6, good urine output. 01/18/25 abg reviewed, ,abdomen soft, non distended, CARMEN drainage clear serous, no bowel activity, febrile, urine output ok, continues with thrombocytopenia,pt and inr slightly elevated. prognosis grave. 01/20/25remains sedated on ventilator, abdomen soft, non distended, faint bowel sounds auscultated by nurse, wound clean and well approximated, CARMEN drainage clear serous. continues with thrombocytopenia, still behind on intravascular volume( BUN and Creatinine elevated), i would give more IV fluids and DC vancomycin. Plan discussed with: Other Dietary Evaluation Review Comments: Nutrition Recommendation: 1) TPN to meet at least 75% estimated needs within 7 days 2) Monitor NPO status, lab values, wt trend, I/O Expected Outcomes/Goals: To meet >75% estimated needs Lab values to improve Fu 2-3 days MELVA RAMESH MD Jan 20, 2025 09:46
[2025-01-20] MEDS: INSULIN LANTUS (GLARGINE) 1 /0.01ml (100units/ml) SC SCH (10:00)
[2025-01-20] MEDS ORDERED: VANCOMYCIN 750MG KIT 100 ML IV SCH (12:00)
[2025-01-20] MEDS: VANCOMYCIN 500mg/100mL 100 ML IV SCH (13:00)
[2025-01-20] MEDS: ACETAMINOPHEN IV 1000 MG/100ML (10MG/ML) IV ONE (13:10)
--- NOTE | 2025-01-20 15:25 | DVHPN2 ---
Progress Note Date Seen: Jan 20, 2025 Has the PT tested + for MRSA If YES, has PT been informed?: No Medical Necessity Reason Pt with a Central, PICC or Fol: Yes The following are medically ne: Central Line, Leach Catheter Reason for leach catheter: Strict I&O Subjective Review of Systems: RESPIRATORY:Abnormal Other Systems: Patient seen and examined by myself today in follow-up, patient remained intubated on the ventilator Objective vital signs Vital Sign Date Time Temp Pulse Resp B/P (MAP) Pulse Ox O2 Delivery O2 Flow Rate FiO2 01/20/25 14:02 106 18 95/47 (63) 100 30 01/20/25 12:00 Mechanical Ventilator+ 01/20/25 01:00 99.3 210.7 Total Intake and Output 01/19/25 01/19/25 01/20/25 15:00 23:00 07:00 Intake Total 662.0 ml 522.0 ml 442.5 ml Output Total 2410 ml 1080 ml Balance 662.0 ml -1888.0 ml -637.5 ml medications Current Medications Medications Dose Ordered Sig/Isaura Route Start Time Stop Time Status Last Admin Dose Admin Pantoprazole Sodium 40 mg DAILY IV 01/13/25 10:00 01/20/25 10:58 40 MG Cefazolin Sodium 50 ml @ 100 mls/hr Q8HR IV 01/13/25 14:00 UNV Midazolam HCl 50 ml @ 1 mls/hr Q24H IV 01/13/25 13:30 01/19/25 18:18 1 MLS/HR Fentanyl Citrate 250 ml @ 2.5 mls/hr Q24H IV 01/13/25 13:30 01/20/25 08:55 7.5 MLS/HR Norepinephrine Bitartrate 250 ml @ 3.75 mls/hr Q24H IV 01/13/25 13:30 01/16/25 18:41 3.75 MLS/HR Vancomycin HCl 0 ml @ 0 mls/hr UD IV 01/13/25 15:00 Vasopressin 20 units/Sodium Chloride 100 ml @ 9 mls/hr Q11H7M IV 01/13/25 18:45 UNV Amino Acids 0 ml @ 0 mls/hr PER PHARMACY IV 01/16/25 11:15 Potassium Chloride 100 ml @ 50 mls/hr Q2H IV 01/16/25 12:45 01/16/25 18:44 UNV Fat Emulsion Intravenous 100 ml/Potassium Chloride 40 meq/ Potassium Phosphate 44 meq/ Calcium Gluconate 2.3 meq/Magnesium Sulfate 14 meq/ Multivitamins 10 ml/Chromium/ Copper/Manganese/ Zinc 1 ml/Insulin Human Regular 17 units/Amino Acids/ Dextrose/Purified Water 1,299.6162 ml @ 54 mls/hr Q24H5M IV 01/19/25 22:00 01/20/25 21:59 01/19/25 22:22 54 MLS/HR Meropenem 50 ml @ 17 mls/hr Q12H IV 01/20/25 03:00 01/20/25 14:37 17 MLS/HR Insulin Human Regular Q4HR SC 01/19/25 17:00 01/20/25 14:53 12 UNITS Insulin Glargine 15 units BID SC 01/20/25 07:45 01/20/25 10:59 15 UNITS Fat Emulsion Intravenous 100 ml/Sodium Phosphate 20 meq/ Potassium Phosphate 22 meq/ Calcium Gluconate 2.3 meq/Magnesium Sulfate 12 meq/ Multivitamins 10 ml/Chromium/ Copper/Manganese/ Zinc 1 ml/Insulin Human Regular 17 units/Amino Acids/ Dextrose/Purified Water 1,279.1162 ml @ 53 mls/hr Q24H9M IV 01/20/25 22:00 01/21/25 21:59 Vancomycin HCl 100 ml @ 100 mls/hr DAILY@1200 IV 01/20/25 12:00 UNV Vancomycin HCl 100 ml @ 200 mls/hr Q18H IV 01/20/25 12:00 01/20/25 13:00 200 MLS/HR Micafungin Sodium 100 mg/Sodium Chloride 100 ml @ 100 mls/hr DAILY IV 01/21/25 10:00 Examination: LUNGS:Normal, CVS:Normal, MSK:Normal laboratory and microbiology Laboratory Tests 01/20/25 02:52 Test 01/20/25 02:52 Range/Units Serum Glucose 359 H 74-106 mg/dL Microbiology Date/Time Source Procedure Growth Status 01/16/25 14:00 Blood Blood Culture - Preliminary NO GROWTH AFTER 72 HOURS OF INCUBATION. Resulted 01/13/25 17:10 Nose MRSA Screen - Final Complete 01/13/25 13:05 Sputum Gram Stain - Final Complete 01/13/25 13:05 Sputum Respiratory Culture - Final Complete 01/13/25 11:42 Peritoneal Fluid Gram Stain - Final Resulted 01/13/25 11:42 Peritoneal Fluid Anaerobic Culture - Final Resulted 01/13/25 11:42 Aerobic Culture - Preliminary Escherichia coli Klebsiella pneumoniae Resulted Problem List/Assessment/Plan Problem List/Assessment/Plan Acute kidney injury superimposed Chronic Kidney Disease secondary hemodynamic mediated Acute respiratory failure, patient intubated on ventilator Acute perforation of the abdomen / bowel ischemia s/p exlap History of atrial fibrillation previously on anticoagulation 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 K-Phos IV piggyback Insulin sliding scale We will continue to follow up Plan discussed with: Other (Nurse) Dietary Evaluation Review Comments: Nutrition Recommendation: 1) TPN to meet at least 75% estimated needs within 7 days 2) Monitor NPO status, lab values, wt trend, I/O Expected Outcomes/Goals: To meet >75% estimated needs Lab values to improve Fu 2-3 days CC Plasma Assessment Blood Product Administration S: [id number] LAKESHA REINA MD Jan 20, 2025 15:25
--- NOTE | 2025-01-20 18:00 | DVHPNRES ---
Progress Note Date Seen: Jan 20, 2025 Resident Creating Document: DG YOUNG RESIDENT Has the PT tested + for MRSA If YES, has PT been informed?: No Medical Necessity Reason Pt with a Central, PICC or Fol: Yes The following are medically ne: Central Line, Leach Catheter Reason for leach catheter: Strict I&O Subjective Review of Systems This is a 80-year-old female with past medical history of hypertension, AFib on Eliquis, type 2 diabetes mellitus, autoimmune disease, CKD, presented to the ED with a chief complaint of severe abdominal pain for last 2 4 days prior to this visit. The i.e. the patient has intermittent able minimal pain for last 4 month, getting worse that prompted this visit. mentioned recently this patient had a fall few weeks ago and chest x-ray demonstrated healed fracture on right 4th and 5th ribs. Before intubation the patient described the abdominal pain is sharp constant pain, diffuse in nature, 9/10, radiates to the back and associated with constipation. He denies fever, chills, shortness of breath, dizziness, nausea, vomiting, hematuria, dysuria, recent traveling, or any positive for Crohn's sick contact or any altered bowel habit. CT abdomen pelvis without IV contrast demonstrated free intraperitoneal likely from visceral perforation of the left abdominal small bowel loops, circumferential wall thickening of left abdominal small bowel loop with more focal local pool of gas adjacent to this thickened small bowel loop. Underwent emergent exploratory laparotomy, lysis of adhesions, extensive lab age, resection of perforated small bowel, enteroenterostomy. Patient was seen and examined on the bedside in ICU. Family was on the bedside. Status post exploratory laparotomy with enteroenterostomy, day 7. She is on mechanical ventilation with FiO2 30%, tidal volume 450 mL, peep 5 and respiratory rate 20. Platelet count 27 and H&H stable. Patient is running low- grade fever overnight and T-max is 100.6. Changed IV cefepime to IV meropenem for more broad Gram-negative coverage and continue IV vancomycin and Micafungin. 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 Objective vital signs Vital Sign Date Time Temp Pulse Resp B/P (MAP) Pulse Ox O2 Delivery O2 Flow Rate FiO2 01/20/25 16:30 98.2 97 18 90/48 (62) 99 208.8 01/20/25 16:19 30 01/20/25 16:00 Mechanical Ventilator+ Total Intake and Output 01/19/25 01/19/25 01/20/25 15:00 23:00 07:00 Intake Total 662.0 ml 522.0 ml 506.0 ml Output Total 2410 ml 1080 ml Balance 662.0 ml -1888.0 ml -574.0 ml medications Current Medications Medications Dose Ordered Sig/Isaura Route Start Time Stop Time Status Last Admin Dose Admin Pantoprazole Sodium 40 mg DAILY IV 01/13/25 10:00 01/20/25 10:58 40 MG Cefazolin Sodium 50 ml @ 100 mls/hr Q8HR IV 01/13/25 14:00 UNV Midazolam HCl 50 ml @ 1 mls/hr Q24H IV 01/13/25 13:30 01/19/25 18:18 1 MLS/HR Fentanyl Citrate 250 ml @ 2.5 mls/hr Q24H IV 01/13/25 13:30 01/20/25 08:55 7.5 MLS/HR Norepinephrine Bitartrate 250 ml @ 3.75 mls/hr Q24H IV 01/13/25 13:30 01/16/25 18:41 3.75 MLS/HR Vancomycin HCl 0 ml @ 0 mls/hr UD IV 01/13/25 15:00 Vasopressin 20 units/Sodium Chloride 100 ml @ 9 mls/hr Q11H7M IV 01/13/25 18:45 UNV Amino Acids 0 ml @ 0 mls/hr PER PHARMACY IV 01/16/25 11:15 Potassium Chloride 100 ml @ 50 mls/hr Q2H IV 01/16/25 12:45 01/16/25 18:44 UNV Fat Emulsion Intravenous 100 ml/Potassium Chloride 40 meq/ Potassium Phosphate 44 meq/ Calcium Gluconate 2.3 meq/Magnesium Sulfate 14 meq/ Multivitamins 10 ml/Chromium/ Copper/Manganese/ Zinc 1 ml/Insulin Human Regular 17 units/Amino Acids/ Dextrose/Purified Water 1,299.6162 ml @ 54 mls/hr Q24H5M IV 01/19/25 22:00 01/20/25 21:59 01/19/25 22:22 54 MLS/HR Meropenem 50 ml @ 17 mls/hr Q12H IV 01/20/25 03:00 01/20/25 14:37 17 MLS/HR Insulin Human Regular Q4HR SC 01/19/25 17:00 01/20/25 14:53 12 UNITS Insulin Glargine 15 units BID SC 01/20/25 07:45 01/20/25 10:59 15 UNITS Fat Emulsion Intravenous 100 ml/Sodium Phosphate 20 meq/ Potassium Phosphate 22 meq/ Calcium Gluconate 2.3 meq/Magnesium Sulfate 12 meq/ Multivitamins 10 ml/Chromium/ Copper/Manganese/ Zinc 1 ml/Insulin Human Regular 17 units/Amino Acids/ Dextrose/Purified Water 1,279.1162 ml @ 53 mls/hr Q24H9M IV 01/20/25 22:00 01/21/25 21:59 Vancomycin HCl 100 ml @ 100 mls/hr DAILY@1200 IV 01/20/25 12:00 UNV Vancomycin HCl 100 ml @ 200 mls/hr Q18H IV 01/20/25 12:00 01/20/25 13:00 200 MLS/HR Micafungin Sodium 100 mg/Sodium Chloride 100 ml @ 100 mls/hr DAILY IV 01/21/25 10:00 Examination Examination General: RASS -3, afebrile, mucosae are moist Cardiovascular: Normal S1 and S2. No murmurs, gallops or rubs Respiratory: Mechanically assisted ventilation, equal bilateral airway entree. Decreased breath sounds on both sides lower lung field Abdomen: Soft, nontender, no organomegaly, no bowel sounds, surgical scar on the midline, no sign of erythema or oozing from the incision site MSK/skin: hemorrhagic blisters in bilateral upper extremity and oozing from this, skin is mottled more pronounced in hands and feet bilaterally, Mobilization of limbs cannot be evaluated. Skin is dry and warm. Neurological: Orientation cannot be assessed. No apparent motor no sensitive deficits. Pupils are isocoric and reactive laboratory and microbiology Laboratory Tests 01/20/25 02:52 Test 01/20/25 02:52 Range/Units Serum Glucose 359 H 74-106 mg/dL Microbiology Date/Time Source Procedure Growth Status 01/16/25 14:00 Blood Blood Culture - Preliminary NO GROWTH AFTER 72 HOURS OF INCUBATION. Resulted 01/13/25 17:10 Nose MRSA Screen - Final Complete 01/13/25 13:05 Sputum Gram Stain - Final Complete 01/13/25 13:05 Sputum Respiratory Culture - Final Complete 01/13/25 11:42 Peritoneal Fluid Gram Stain - Final Complete 01/13/25 11:42 Peritoneal Fluid Anaerobic Culture - Final Complete 01/13/25 11:42 Aerobic Culture - Final Escherichia coli Klebsiella pneumoniae Complete Labs and/or images reviewed: Labs reviewed by me, Image(s) reviewed by me Problem List/Assessment/Plan Problem List/Assessment/Plan Assessment and plan: NEURO: Acute metabolic encephalopathy secondary to acute hypoxic respiratory failure Status post intubation RASS score: -3 CARDIOVASCULAR: Septic shock secondary to perforation of the hollow viscus Paroxysmal atrial fibrillation with secondary hypercoagulable state Chronic diastolic heart failure with preserved ejection fraction - echo demonstrated EF 65%, mild LV diastolic dysfunction - Chest xray demonstrated bibasilar atelectasis - [id number] score more than 5 - hold Lovenox because of severe thrombocytopenia PULMONARY: Acute hypoxic respiratory failure secondary to bilateral pleural effusion Volume overload due to chronic HFpEF - chest x-ray demonstrated bilateral hazy opacities GASTROINTESTINAL: Perforation of the small bowel, status post exploratory laparotomy Transaminitis secondary to shock GENITOURINARY: ISRRAEL on CKD secondary to shock/VMN ENDOCRINE: History of hypothyroidism Type 2 diabetes mellitus, hemoglobin A1c 8.2 - Lantus 15 b.i.d. and moderate sliding scale q.4 hours METABOLIC: Hyperkalemia secondary to ISRRAEL Moderate protein calorie malnutrition, albumin 2.6 Anion gap metabolic acidosis secondary to bowel ischemia leading to lactic acidosis HEME: Acute on chronic anemia secondary to hemodilution/post surgical Severe thrombocytopenia likely secondary to HIT Possible heparin-induced thrombocytopenia type 2 Acute DVT of right upper extremity - 2 unit of PRBC and platelet given since the surgery INFECTIOUS DISEASE: Sepsis with septic shock secondary to perforation of the small bowel - respiratory culture negative, peritoneal fluid culture demonstrated E coli, Klebsiella - continue IV vancomycin, IV meropenem and IV micafungin DIET: TPN DVT prophylax: Hold GI prophylaxis: Pantoprazole Bowel regimen: Code status: Full code LINES/DRAINS/ACCESS: ETT: Intubated on 01/14/25 IV access: Left IJ placed on 01/14/2025 Drips: Versed and fentanyl Leach catheter: Placed on 0 9 /0 10/03 DISPOSITION: ICU Patient's status discussed with Son, brother and sister Critical care time spent more than 81 minutes, including patient care, chart review, and updating the family. Excluding any procedures. Case discussed with Dr. Self Plan discussed with: Son, Other (Brother, sister) My Orders My Orders Orders - DG YOUNG Procedure Category Date Status Time Chest Portable XY 01/20/25 Resulted 04:00 Abg W/ Co-Ox RT 01/20/25 Logged 04:00 Blood Glucose Q4h SAPPHIRE 01/20/25 In Process 02:00 Insulin Lantus PHA 01/20/25 In Process (Glargine) (Lantus) 07:45 Micafungin Sodium PHA 01/21/25 In Process (Mycamine) 10:00 Dietary Evaluation Review Comments: Nutrition Recommendation: 1) TPN to meet at least 75% estimated needs within 7 days 2) Monitor NPO status, lab values, wt trend, I/O Expected Outcomes/Goals: To meet >75% estimated needs Lab values to improve Fu 2-3 days CC Plasma Assessment Blood Product Administration S: [id number] Date of Service: Jan 20, 2025 Billing Provider: ZBIGNIEW SELF MD Common Visit Codes: 31853-LSKPSZBL CARE 30-74 MIN, 73922-[id number] CARE-EACH +30MIN DG YOUNG Jan 20, 2025 18:00 ZBIGNIEW SELF MD Jan 22, 2025 12:01
[2025-01-20] MEDS: TPN PER PHARMACY IV NR (22:54)
[2025-01-21] VITALS (105 sets, daily range): BP systolic 72–159; BP diastolic 30–76; PULSE 90–124; RESP 12–26; TEMP 97.7–101.3; O2SAT 96–100
[2025-01-21] MEDS: ACETAMINOPHEN IV 1000 MG/100ML (10MG/ML) IV ONE ×2 (01:25→16:07)
[2025-01-21 03:54] LABS: Hematocrit 23.7 % (36.0-46.0); Hemoglobin 7.7 g/dL (12.2-16.2); Mean Corpuscular Hemoglobin 29.5 pg (28.0-32.0); Mean Corpuscular Volume 90.3 fL (80.0-100.0); Nucleated Red Blood Cells % 0.0 %
[2025-01-21 04:09] LABS: Alkaline Phosphatase 77 U/L (46-116); Anion Gap 8 (5-15); BUN/Creatinine Ratio 48.1 (10.0-20.0); Carbon Dioxide 26 mmol/L (20-31); Chloride 106 mmol/L (98-107); Magnesium 2.1 mg/dL (1.6-2.6); Potassium 5.0 mmol/L (3.5-5.1); Sodium 140 mmol/L (136-145)
[2025-01-21 04:10] LABS: Alanine Aminotransferase < 9 U/L (7-40); Albumin 2.5 g/dL (3.2-4.8); Bilirubin, Total 1.2 mg/dL (0.2-1.0); Blood Urea Nitrogen 62 mg/dL (9-23); Calcium 8.6 mg/dL (8.7-10.4); Glucose 294 mg/dL (74-106); Total Protein 4.8 g/dL (5.7-8.2)
--- NOTE | 2025-01-21 05:26 | DVH ---
CHEST RADIOGRAPH Indication: Mechanical ventilation Technique: Single frontal view of the chest was obtained COMPARISON: XY CHEST PORTABLE on DOS: 01/20/25, XY CHEST PORTABLE on DOS: 01/19/25, XY CHEST PORTABLE o n DOS: 01/18/25, XY CHEST PORTABLE on DOS: 01/17/25, XY CHEST PORTABLE on DOS: 01/16/25, XY CHEST PORTABLE on DOS: 01/20/25 FINDINGS: Lines and Tubes: Endotracheal tube, enteric catheter and left central venous catheter in satisfactory position Lungs: Low lung volumes. Edema. Pleura: Small bilateral pleural effusions No pneumothorax. Cardiomediastinal contours: Unremarkable Bones: Unremarkable IMPRESSION: Unchanged pulmonary edema.
[2025-01-21 07:03] LABS: Base Excess -1.3 mmol/L (-2.0-3.0)
--- NOTE | 2025-01-21 09:48 | DVHPN2 ---
Subjective Date Seen: Jan 21, 2025 Post op day Post op day: 8 Patient reports: No new complaints (Patient is intubated and sedated. Worsening thrombocytopenia today. Renal function is improving. Hematology oncology consult for severe thrombocytopenia. Transfusing platelets. Monitor for bleeding) Objective Vitals Vital Sign Date Time Temp Pulse Resp B/P (MAP) Pulse Ox O2 Delivery O2 Flow Rate FiO2 01/21/25 09:28 106 17 98/44 (62) 98 30 01/21/25 06:45 97.9 208.2 01/21/25 06:00 Mechanical Ventilator+ Total Intake and Output 01/20/25 01/20/25 01/21/25 15:00 23:00 07:00 Intake Total 671.0 ml 384.5 ml 760 ml Output Total 750 ml Balance 671.0 ml 384.5 ml 10 ml Medications Current Medications Medications Dose Ordered Sig/Isaura Route Start Time Stop Time Status Last Admin Dose Admin Pantoprazole Sodium 40 mg DAILY IV 01/13/25 10:00 01/20/25 10:58 40 MG Cefazolin Sodium 50 ml @ 100 mls/hr Q8HR IV 01/13/25 14:00 UNV Midazolam HCl 50 ml @ 1 mls/hr Q24H IV 01/13/25 13:30 01/20/25 18:40 2 MLS/HR Fentanyl Citrate 250 ml @ 2.5 mls/hr Q24H IV 01/13/25 13:30 01/20/25 08:55 7.5 MLS/HR Norepinephrine Bitartrate 250 ml @ 3.75 mls/hr Q24H IV 01/13/25 13:30 01/16/25 18:41 3.75 MLS/HR Vancomycin HCl 0 ml @ 0 mls/hr UD IV 01/13/25 15:00 Vasopressin 20 units/Sodium Chloride 100 ml @ 9 mls/hr Q11H7M IV 01/13/25 18:45 UNV Amino Acids 0 ml @ 0 mls/hr PER PHARMACY IV 01/16/25 11:15 Potassium Chloride 100 ml @ 50 mls/hr Q2H IV 01/16/25 12:45 01/16/25 18:44 UNV Meropenem 50 ml @ 17 mls/hr Q12H IV 01/20/25 03:00 01/21/25 01:26 17 MLS/HR Insulin Human Regular Q4HR SC 01/19/25 17:00 01/21/25 05:18 9 UNITS Insulin Glargine 15 units BID SC 01/20/25 07:45 01/20/25 22:53 10 UNITS Fat Emulsion Intravenous 100 ml/Sodium Phosphate 20 meq/ Potassium Phosphate 22 meq/ Calcium Gluconate 2.3 meq/Magnesium Sulfate 12 meq/ Multivitamins 10 ml/Chromium/ Copper/Manganese/ Zinc 1 ml/Insulin Human Regular 17 units/Amino Acids/ Dextrose/Purified Water 1,279.1162 ml @ 53 mls/hr Q24H9M IV 01/20/25 22:00 01/21/25 21:59 01/20/25 22:54 53 MLS/HR Vancomycin HCl 100 ml @ 100 mls/hr DAILY@1200 IV 01/20/25 12:00 UNV Vancomycin HCl 100 ml @ 200 mls/hr Q18H IV 01/20/25 12:00 01/21/25 05:17 200 MLS/HR Micafungin Sodium 100 mg/Sodium Chloride 100 ml @ 100 mls/hr DAILY IV 01/21/25 10:00 Bumetanide 1 mg BIDD IV 01/21/25 18:00 UNV Labs and Microbiology Laboratory Tests 01/21/25 03:06 Test 01/21/25 03:06 Range/Units Serum Glucose 294 H 74-106 mg/dL Ass/Plan Labs and/or images reviewed: Labs reviewed by me, Image(s) reviewed by me Problem List Assessment and plan: NEURO: Acute metabolic encephalopathy secondary to acute hypoxic respiratory failure Status post intubation RASS score: -3 CARDIOVASCULAR: Septic shock secondary to perforation of the hollow viscus Paroxysmal atrial fibrillation with secondary hypercoagulable state Chronic diastolic heart failure with preserved ejection fraction - echo demonstrated EF 65%, mild LV diastolic dysfunction - Chest xray demonstrated bibasilar atelectasis - [id number] score more than 5 - hold Lovenox because of severe thrombocytopenia PULMONARY: Acute hypoxic respiratory failure secondary to bilateral pleural effusion Volume overload due to chronic HFpEF - chest x-ray demonstrated bilateral hazy opacities GASTROINTESTINAL: Perforation of the small bowel, status post exploratory laparotomy Transaminitis secondary to shock GENITOURINARY: ISRRAEL on CKD secondary to shock/VMN ENDOCRINE: History of hypothyroidism Type 2 diabetes mellitus, hemoglobin A1c 8.2 - Lantus 15 b.i.d. and moderate sliding scale q.4 hours METABOLIC: Hyperkalemia secondary to ISRRAEL Moderate protein calorie malnutrition, albumin 2.6 Anion gap metabolic acidosis secondary to bowel ischemia leading to lactic acidosis HEME: Acute on chronic anemia secondary to hemodilution/post surgical Severe thrombocytopenia likely secondary to HIT Possible heparin-induced thrombocytopenia type 2 Acute DVT of right upper extremity - 2 unit of PRBC and platelet given since the surgery INFECTIOUS DISEASE: Sepsis with septic shock secondary to perforation of the small bowel - respiratory culture negative, peritoneal fluid culture demonstrated E coli, Klebsiella - continue IV vancomycin, IV meropenem and IV micafungin DIET: TPN DVT prophylax: Hold GI prophylaxis: Pantoprazole Bowel regimen: Code status: Full code LINES/DRAINS/ACCESS: ETT: Intubated on 01/14/25 IV access: Left IJ placed on 01/14/2025 Drips: Versed and fentanyl Perez catheter: Placed on 0 0 10/03 DISPOSITION: ICU Patient's status discussed with Son, brother and sister Critical care time spent more than 81 minutes, including patient care, chart review, and updating the family. Excluding any procedures. Case discussed with Dr. Reed Assessment/Plan 01/19/25 s/p Exploratory laparotomy, lysis of adhesions, extensive lavage, resection of perforated small bowel, enteroenterostomy. unchanged from yesterday abdomen soft, non distended, CARMEN drainage clear serous, no bowel activity, febrile, urine output ok, continues with thrombocytopenia, Plan: continue current treatment discussed with Dr. Christy 01/21/2025 s/p Exploratory laparotomy, lysis of adhesions, extensive lavage, resection of perforated small bowel, enteroenterostomy. abdomen soft, non distended, CARMEN drainage clear serous, no bowel activity, urine output ok, platelet count improved albumin low off pressors blood culture , gram negative rods Plan: continue meropenem antibiotics albumin x3 discussed with Dr. Christy Plan discussed with Dr. Christy Visit Coding Surgery Date of Service if different f: Jan 21, 2025 Billing Provider: MELVA CHRISTY MD Surgery Visit Codes: [id number] INP/OBS CARE(HIGH) CLAYTON POWERS NP Jan 21, 2025 09:48
[2025-01-21] MEDS ORDERED: ALBUMIN 25% 50 ML IV SCH (10:00)
--- NOTE | 2025-01-21 10:31 | DVHPN2 ---
Progress Note Date Seen: Jan 21, 2025 Has the PT tested + for MRSA If YES, has PT been informed?: No Medical Necessity Reason Pt with a Central, PICC or Fol: Yes The following are medically ne: Central Line, Leach Catheter Reason for leach catheter: Strict I&O Subjective Review of Systems: RESPIRATORY:Abnormal Other Systems: Patient seen and examined by myself today in follow-up, patient remained intubated on ventilator Objective vital signs Vital Sign Date Time Temp Pulse Resp B/P (MAP) Pulse Ox O2 Delivery O2 Flow Rate FiO2 01/21/25 09:28 106 17 98/44 (62) 98 30 01/21/25 06:45 97.9 208.2 01/21/25 06:00 Mechanical Ventilator+ Total Intake and Output 01/20/25 01/20/25 01/21/25 15:00 23:00 07:00 Intake Total 671.0 ml 384.5 ml 760 ml Output Total 750 ml Balance 671.0 ml 384.5 ml 10 ml medications Current Medications Medications Dose Ordered Sig/Isaura Route Start Time Stop Time Status Last Admin Dose Admin Pantoprazole Sodium 40 mg DAILY IV 01/13/25 10:00 01/20/25 10:58 40 MG Cefazolin Sodium 50 ml @ 100 mls/hr Q8HR IV 01/13/25 14:00 UNV Midazolam HCl 50 ml @ 1 mls/hr Q24H IV 01/13/25 13:30 01/20/25 18:40 2 MLS/HR Fentanyl Citrate 250 ml @ 2.5 mls/hr Q24H IV 01/13/25 13:30 01/20/25 08:55 7.5 MLS/HR Norepinephrine Bitartrate 250 ml @ 3.75 mls/hr Q24H IV 01/13/25 13:30 01/16/25 18:41 3.75 MLS/HR Vancomycin HCl 0 ml @ 0 mls/hr UD IV 01/13/25 15:00 Vasopressin 20 units/Sodium Chloride 100 ml @ 9 mls/hr Q11H7M IV 01/13/25 18:45 UNV Amino Acids 0 ml @ 0 mls/hr PER PHARMACY IV 01/16/25 11:15 Potassium Chloride 100 ml @ 50 mls/hr Q2H IV 01/16/25 12:45 01/16/25 18:44 UNV Meropenem 50 ml @ 17 mls/hr Q12H IV 01/20/25 03:00 01/21/25 01:26 17 MLS/HR Fat Emulsion Intravenous 100 ml/Sodium Phosphate 20 meq/ Potassium Phosphate 22 meq/ Calcium Gluconate 2.3 meq/Magnesium Sulfate 12 meq/ Multivitamins 10 ml/Chromium/ Copper/Manganese/ Zinc 1 ml/Insulin Human Regular 17 units/Amino Acids/ Dextrose/Purified Water 1,279.1162 ml @ 53 mls/hr Q24H9M IV 01/20/25 22:00 01/21/25 21:59 01/20/25 22:54 53 MLS/HR Vancomycin HCl 100 ml @ 100 mls/hr DAILY@1200 IV 01/20/25 12:00 UNV Vancomycin HCl 100 ml @ 200 mls/hr Q18H IV 01/20/25 12:00 01/21/25 05:17 200 MLS/HR Micafungin Sodium 100 mg/Sodium Chloride 100 ml @ 100 mls/hr DAILY IV 01/21/25 10:00 Bumetanide 1 mg BIDD IV 01/21/25 18:00 UNV Albumin Human 50 ml @ 100 mls/hr Q8H IV 01/21/25 09:45 01/22/25 02:14 UNV Insulin Glargine 20 units BID SC 01/21/25 10:00 UNV Diagnostic Test (Pha) 1 strip Q6HR 01/21/25 12:00 UNV Insulin Human Regular Q6HR SC 01/21/25 12:00 UNV Dextrose 50 ml UD PRN IV 01/21/25 10:00 UNV Albumin Human 50 ml @ 100 mls/hr Q4HR IV 01/21/25 10:00 01/21/25 18:29 UNV Examination: LUNGS:Normal, CVS:Normal, MSK:Normal laboratory and microbiology Laboratory Tests 01/21/25 03:06 Test 01/21/25 03:06 Range/Units Serum Glucose 294 H 74-106 mg/dL Microbiology Date/Time Source Procedure Growth Status 01/20/25 00:57 Blood Blood Culture - Preliminary NO GROWTH AFTER 24 HOURS OF INCUBATION. Resulted 01/13/25 17:10 Nose MRSA Screen - Final Complete 01/13/25 13:05 Sputum Gram Stain - Final Complete 01/13/25 13:05 Sputum Respiratory Culture - Final Complete 01/13/25 11:42 Peritoneal Fluid Gram Stain - Final Complete 01/13/25 11:42 Peritoneal Fluid Anaerobic Culture - Final Complete 01/13/25 11:42 Aerobic Culture - Final Escherichia coli Klebsiella pneumoniae Complete Problem List/Assessment/Plan Problem List/Assessment/Plan Acute kidney injury superimposed Chronic Kidney Disease secondary hemodynamic mediated Acute respiratory failure, patient intubated on ventilator Acute perforation of the abdomen / bowel ischemia s/p exlap History of atrial fibrillation previously on anticoagulation 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 Bumex 1 mg IV b.i.d. K-Phos IV piggyback Insulin sliding scale We will continue to follow up Plan discussed with: Other (Nurse) My Orders My Orders Orders - LAKESHA REINA MD Procedure Category Date Status Time Bumetanide Injection PHA 01/21/25 Logged (Bumex Injection) 18:00 Dietary Evaluation Review Comments: Nutrition Recommendation: 1) TPN to meet at least 75% estimated needs within 7 days 2) Monitor NPO status, lab values, wt trend, I/O Expected Outcomes/Goals: To meet >75% estimated needs Lab values to improve Fu 2-3 days CC Plasma Assessment Blood Product Administration S: [id number] LAKESHA REINA MD Jan 21, 2025 10:31
[2025-01-21] MEDS: MICAFUNGIN SODIUM 100 MG in SODIUM CHL 0.9% 100 ML IV SCH (10:48)
--- NOTE | 2025-01-21 14:34 | DVH ---
BILATERAL LOWER EXTREMITY ARTERIAL DUPLEX ULTRASOUND STUDY: REASON FOR EXAM: Discolored and cold extremities. rule out limb ischemia TECHNIQUE: The full lengths of the arterial segments were evaluated with color-flow Doppler ultrasoun d. Suspected abnormalities were evaluated with waters scale ultrasound. Job Coach spectral Doppler waveforms, with velocity measurements were obtained. Spectral waveforms with velocity measurements w ere obtained 2 to 4 cm central to any areas of significant stenosis. Common femoral, superficial femo ral, popliteal, posterior tibial, and dorsal pedal arteries were evaluated. FINDINGS: Note that the heart rhythm is irregular and this may skew velocity measurements and extrapolated degr ee of stenosis. Right: There is diffuse atherosclerotic plaque throughout the right lower extremity. The common femor al artery waveform is multiphasic with a brisk upstroke. The superficial femoral and popliteal arteri es are patent with multiphasic waveforms. The posterior tibial and dorsal pedal arteries are patent w ith multiphasic waveforms. Left: There is diffuse atherosclerotic plaque throughout the left lower extremity. The common femora l artery waveform is multiphasic with a brisk upstroke. The superficial femoral and popliteal arterie s are patent with multiphasic waveforms. The posterior tibial and dorsal pedal arteries are patent wi th multiphasic waveforms. IMPRESSION: No hemodynamically significant stenosis.
--- NOTE | 2025-01-21 14:45 | DVH ---
BILATERAL UPPER EXTREMITY ARTERIAL DUPLEX INDICATION: Rule out limb ischemia FINDINGS: RIGHT: The right common carotid, right subclavian, axillary, brachial, ulnar, and radial a rteries are patent with triphasic waveforms. No focal velocity shifts or evidence of stenosis. Velocities and ratios within normal limits No evidence of hemodynamically significant stenosis in the upper extremities. IMPRESSION: No evidence of hemodynamically significant stenosis in the upper extremities.
--- NOTE | 2025-01-21 15:25 | DVHPNRES ---
Progress Note Date Seen: Jan 21, 2025 Resident Creating Document: DG YOUNG RESIDENT Has the PT tested + for MRSA If YES, has PT been informed?: No Medical Necessity Reason Pt with a Central, PICC or Fol: Yes The following are medically ne: Central Line, Leach Catheter Reason for leach catheter: Strict I&O Subjective Review of Systems This is a 80-year-old female with past medical history of hypertension, AFib on Eliquis, type 2 diabetes mellitus, autoimmune disease, CKD, presented to the ED with a chief complaint of severe abdominal pain for last 2 4 days prior to this visit. The i.e. the patient has intermittent able minimal pain for last 4 month, getting worse that prompted this visit. mentioned recently this patient had a fall few weeks ago and chest x-ray demonstrated healed fracture on right 4th and 5th ribs. Before intubation the patient described the abdominal pain is sharp constant pain, diffuse in nature, 9/10, radiates to the back and associated with constipation. He denies fever, chills, shortness of breath, dizziness, nausea, vomiting, hematuria, dysuria, recent traveling, or any positive for Crohn's sick contact or any altered bowel habit. CT abdomen pelvis without IV contrast demonstrated free intraperitoneal likely from visceral perforation of the left abdominal small bowel loops, circumferential wall thickening of left abdominal small bowel loop with more focal local pool of gas adjacent to this thickened small bowel loop. Underwent emergent exploratory laparotomy, lysis of adhesions, extensive lab age, resection of perforated small bowel, enteroenterostomy. Patient was seen and examined on the bedside in ICU. Family was on the bedside. Status post exploratory laparotomy with enteroenterostomy, day 8. She is on mechanical ventilation with FiO2 30%, tidal volume 450 mL, peep 5 and respiratory rate 20. Platelet count 27 and H&H stable. Patient is running low- grade fever overnight and T-max is 100.6. Upper extremity more edematous, reduced radial pulsation and delayed capillary refill, ordered bilateral atrial duplex of both upper and lower extremity. Changed IV cefepime to IV meropenem for more broad Gram-negative coverage and continue IV vancomycin and Micafungin. 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 Objective vital signs Vital Sign Date Time Temp Pulse Resp B/P (MAP) Pulse Ox O2 Delivery O2 Flow Rate FiO2 01/21/25 15:15 100.8 118 12 98 213.4 01/21/25 13:51 30 01/21/25 12:00 Mechanical Ventilator+ Total Intake and Output 01/20/25 01/20/25 01/21/25 14:59 22:59 06:59 Intake Total 654.0 ml 406.0 ml 819 ml Output Total 1015 ml 750 ml Balance 654.0 ml -609.0 ml 69 ml medications Current Medications Medications Dose Ordered Sig/Isaura Route Start Time Stop Time Status Last Admin Dose Admin Pantoprazole Sodium 40 mg DAILY IV 01/13/25 10:00 01/21/25 10:47 40 MG Cefazolin Sodium 50 ml @ 100 mls/hr Q8HR IV 01/13/25 14:00 UNV Midazolam HCl 50 ml @ 1 mls/hr Q24H IV 01/13/25 13:30 01/20/25 18:40 2 MLS/HR Fentanyl Citrate 250 ml @ 2.5 mls/hr Q24H IV 01/13/25 13:30 01/20/25 08:55 7.5 MLS/HR Norepinephrine Bitartrate 250 ml @ 3.75 mls/hr Q24H IV 01/13/25 13:30 01/16/25 18:41 3.75 MLS/HR Vancomycin HCl 0 ml @ 0 mls/hr UD IV 01/13/25 15:00 Vasopressin 20 units/Sodium Chloride 100 ml @ 9 mls/hr Q11H7M IV 01/13/25 18:45 UNV Amino Acids 0 ml @ 0 mls/hr PER PHARMACY IV 01/16/25 11:15 Potassium Chloride 100 ml @ 50 mls/hr Q2H IV 01/16/25 12:45 01/16/25 18:44 UNV Meropenem 50 ml @ 17 mls/hr Q12H IV 01/20/25 03:00 01/21/25 01:26 17 MLS/HR Fat Emulsion Intravenous 100 ml/Sodium Phosphate 20 meq/ Potassium Phosphate 22 meq/ Calcium Gluconate 2.3 meq/Magnesium Sulfate 12 meq/ Multivitamins 10 ml/Chromium/ Copper/Manganese/ Zinc 1 ml/Insulin Human Regular 17 units/Amino Acids/ Dextrose/Purified Water 1,279.1162 ml @ 53 mls/hr Q24H9M IV 01/20/25 22:00 01/21/25 21:59 01/20/25 22:54 53 MLS/HR Vancomycin HCl 100 ml @ 100 mls/hr DAILY@1200 IV 01/20/25 12:00 UNV Vancomycin HCl 100 ml @ 200 mls/hr Q18H IV 01/20/25 12:00 01/21/25 05:17 200 MLS/HR Micafungin Sodium 100 mg/Sodium Chloride 100 ml @ 100 mls/hr DAILY IV 01/21/25 10:00 01/21/25 10:48 100 MLS/HR Bumetanide 1 mg BIDD IV 01/21/25 18:00 Albumin Human 50 ml @ 100 mls/hr Q8H IV 01/21/25 09:45 01/22/25 02:14 Insulin Glargine 20 units BID SC 01/21/25 10:00 Diagnostic Test (Pha) 1 strip Q6HR 01/21/25 12:00 Insulin Human Regular Q6HR SC 01/21/25 12:00 Dextrose 50 ml UD PRN IV 01/21/25 10:00 Fat Emulsion Intravenous 65 ml/ Sodium Acetate 20 meq/Magnesium Sulfate 12 meq/ Multivitamins 10 ml/Chromium/ Copper/Manganese/ Zinc 1 ml/Insulin Human Regular 17 units/Amino Acids/ Dextrose/Purified Water 1,089.17 ml @ 45 mls/hr [id number] IV 01/21/25 22:00 01/22/25 21:59 Examination Examination General: RASS -3, afebrile, mucosae are moist Cardiovascular: Normal S1 and S2. No murmurs, gallops or rubs Respiratory: Mechanically assisted ventilation, equal bilateral airway entree. Decreased breath sounds on both sides lower lung field Abdomen: Soft, nontender, no organomegaly, no bowel sounds, surgical scar on the midline, no sign of erythema or oozing from the incision site MSK/skin: hemorrhagic blisters in bilateral upper extremity and oozing from this, skin is mottled more pronounced in hands and feet bilaterally, Mobilization of limbs cannot be evaluated. Skin is dry and warm. Neurological: Orientation cannot be assessed. No apparent motor no sensitive deficits. Pupils are isocoric and reactive laboratory and microbiology Laboratory Tests 01/21/25 03:06 Test 01/21/25 03:06 Range/Units Serum Glucose 294 H 74-106 mg/dL Microbiology Date/Time Source Procedure Growth Status 01/20/25 00:57 Blood Blood Culture - Preliminary NO GROWTH AFTER 24 HOURS OF INCUBATION. Resulted 01/13/25 17:10 Nose MRSA Screen - Final Complete 01/13/25 13:05 Sputum Gram Stain - Final Complete 01/13/25 13:05 Sputum Respiratory Culture - Final Complete 01/13/25 11:42 Peritoneal Fluid Gram Stain - Final Complete 01/13/25 11:42 Peritoneal Fluid Anaerobic Culture - Final Complete 01/13/25 11:42 Aerobic Culture - Final Escherichia coli Klebsiella pneumoniae Complete Labs and/or images reviewed: Labs reviewed by me, Image(s) reviewed by me Problem List/Assessment/Plan Problem List/Assessment/Plan Assessment and plan: NEURO: Acute metabolic encephalopathy secondary to acute hypoxic respiratory failure Status post intubation RASS score: -3 CARDIOVASCULAR: Septic shock secondary to perforation of the hollow viscus Paroxysmal atrial fibrillation with secondary hypercoagulable state Chronic diastolic heart failure with preserved ejection fraction - echo demonstrated EF 65%, mild LV diastolic dysfunction - Chest xray demonstrated bibasilar atelectasis - [id number] score more than 5 - hold Lovenox because of severe thrombocytopenia PULMONARY: Acute hypoxic respiratory failure secondary to bilateral pleural effusion Volume overload due to chronic HFpEF - chest x-ray demonstrated bilateral hazy opacities GASTROINTESTINAL: Perforation of the small bowel, status post exploratory laparotomy Transaminitis secondary to shock GENITOURINARY: ISRRAEL on CKD secondary to shock/VMN ENDOCRINE: History of hypothyroidism Type 2 diabetes mellitus, hemoglobin A1c 8.2 - Lantus 20 b.i.d. 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 Possible heparin-induced thrombocytopenia type 2 Acute DVT of right upper extremity - 2 unit of PRBC and platelet given since the surgery INFECTIOUS DISEASE: Sepsis with septic shock secondary to perforation of the small bowel - respiratory culture negative, peritoneal fluid culture demonstrated E coli, Klebsiella - continue IV vancomycin, IV meropenem and IV micafungin DIET: TPN DVT prophylax: Hold GI prophylaxis: Pantoprazole Bowel regimen: Code status: Full code LINES/DRAINS/ACCESS: ETT: Intubated on 01/14/25 IV access: Left IJ placed on 01/14/2025 Drips: Versed and fentanyl Leach catheter: Placed on 10/03 DISPOSITION: ICU Patient's status discussed with Son, brother and sister Critical care time spent more than 81 minutes, including patient care, chart review, and updating the family. Excluding any procedures. Case discussed with Dr. Pino Plan discussed with: Daughter, Son, Other (RN) My Orders My Orders Orders - DG YOUNG Procedure Category Date Status Time Chest Portable XY 01/21/25 Resulted 04:00 Abg W/ Co-Ox RT 01/21/25 Logged 04:00 Insulin Lantus PHA 01/21/25 In Process (Glargine) (Lantus) 10:00 Glucose Blood PHA 01/21/25 In Process (Accu-Chek Comfort 12:00 Insulin R (Human) PHA 01/21/25 In Process (Insulin R) 12:00 Dextrose 50% Syringe PHA 01/21/25 In Process 10:00 Bilat Upper Ext Art US 01/21/25 Resulted Duplex 13:33 Bilat Low Ext Art US 01/21/25 Resulted Duplex 13:33 Acetaminophen Iv PHA 01/21/25 Logged (Ofirmev) 15:15 Dietary Evaluation Review Comments: Nutrition Recommendation: 1) TPN to meet at least 75% estimated needs within 7 days 2) Monitor NPO status, lab values, wt trend, I/O Expected Outcomes/Goals: To meet >75% estimated needs Lab values to improve Fu 2-3 days CC Plasma Assessment Blood Product Administration S: [id number] Date of Service: Jan 21, 2025 Billing Provider: ROCIO PINO MD Common Visit Codes: NOT BILLABLE DG YOUNG Jan 21, 2025 15:25 ROCIO PINO MD Feb 24, 2025 16:13
[2025-01-21] MEDS: ALBUMIN 25% 50 ML IV SCH (16:06)
[2025-01-21] MEDS: ACCU-CHEK COMFORT CURVE STRIP VI SCH (16:25)
[2025-01-21] MEDS: InsuLIN REG 1unit/0.01ml Soln (100units/ml) SC SCH (16:31)
[2025-01-21] MEDS: INSULIN LANTUS (GLARGINE) 1 /0.01ml (100units/ml) SC SCH (16:32)
[2025-01-21] MEDS: BUMETANIDE 1mg/4ml VIAL (0.25mg/ml) IV SCH (18:47)
[2025-01-22] VITALS (108 sets, daily range): BP systolic 95–162; BP diastolic 37–72; PULSE 100–125; RESP 12–33; TEMP 96.8–100.6; O2SAT 94–100
[2025-01-22 03:53] LABS: Hematocrit 23.2 % (36.0-46.0); Hemoglobin 7.5 g/dL (12.2-16.2); Mean Corpuscular Hemoglobin 29.3 pg (28.0-32.0); Mean Corpuscular Volume 90.4 fL (80.0-100.0); Nucleated Red Blood Cells % 0.1 %
[2025-01-22 03:56] LABS: Alkaline Phosphatase 100 U/L (46-116); Anion Gap 8 (5-15); BUN/Creatinine Ratio 50.4 (10.0-20.0); Bilirubin, Total 1.0 mg/dL (0.2-1.0); Calcium 8.7 mg/dL (8.7-10.4); Carbon Dioxide 26 mmol/L (20-31); Chloride 106 mmol/L (98-107); Magnesium 2.2 mg/dL (1.6-2.6); Potassium 4.8 mmol/L (3.5-5.1); Sodium 140 mmol/L (136-145)
[2025-01-22 04:00] LABS: Alanine Aminotransferase < 9 U/L (7-40); Albumin 3.0 g/dL (3.2-4.8); Blood Urea Nitrogen 66 mg/dL (9-23); Glucose 267 mg/dL (74-106); Total Protein 5.6 g/dL (5.7-8.2)
--- NOTE | 2025-01-22 05:33 | DVH ---
CHEST RADIOGRAPH Indication: Mechanical ventilation Technique: 1 view Comparison: XY CHEST PORTABLE on DOS: 01/21/25, XY CHEST PORTABLE on DOS: 01/20/25, XY CHEST PORTABLE o n DOS: 01/19/25, XY CHEST PORTABLE on DOS: 01/18/25, XY CHEST PORTABLE on DOS: 01/17/25 FINDINGS: Lines and Tubes: Unchanged endotracheal tube, enteric tube, and left IJ catheter. Lungs/Pleura: Unchanged. Cardiomediastinum: Unchanged. Other: Unchanged. IMPRESSION: 1. No significant change from the previous study. Persistent low lung volumes with [id number] -right pleural effusions, adjacent airspace disease. Stable support devices.
[2025-01-22 08:30] LABS: Base Excess -2.2 mmol/L (-2.0-3.0)
--- NOTE | 2025-01-22 09:54 | DVHPN2 ---
Subjective Date Seen: Jan 22, 2025 Post op day Post op day: 9 Patient reports: No new complaints (Patient is intubated and sedated. Worsening thrombocytopenia today. Renal function is improving. Hematology oncology consult for severe thrombocytopenia. Transfusing platelets. Monitor for bleeding) Objective Vitals Vital Sign Date Time Temp Pulse Resp B/P (MAP) Pulse Ox O2 Delivery O2 Flow Rate FiO2 01/22/25 09:00 98.2 117 24 103/53 (70) 100 208.8 01/22/25 08:50 30 01/22/25 08:00 Mechanical Ventilator+ Total Intake and Output 01/21/25 01/21/25 01/22/25 15:00 23:00 07:00 Intake Total 599.0 ml 659.75 ml 690.0 ml Output Total 680 ml 1720 ml Balance 599.0 ml -20.25 ml -1030.0 ml Medications Current Medications Medications Dose Ordered Sig/Isaura Route Start Time Stop Time Status Last Admin Dose Admin Pantoprazole Sodium 40 mg DAILY IV 01/13/25 10:00 01/21/25 10:47 40 MG Cefazolin Sodium 50 ml @ 100 mls/hr Q8HR IV 01/13/25 14:00 UNV Midazolam HCl 50 ml @ 1 mls/hr Q24H IV 01/13/25 13:30 01/22/25 06:34 5 MLS/HR Fentanyl Citrate 250 ml @ 2.5 mls/hr Q24H IV 01/13/25 13:30 01/21/25 17:31 7.5 MLS/HR Norepinephrine Bitartrate 250 ml @ 3.75 mls/hr Q24H IV 01/13/25 13:30 01/21/25 17:20 3.75 MLS/HR Vancomycin HCl 0 ml @ 0 mls/hr UD IV 01/13/25 15:00 Vasopressin 20 units/Sodium Chloride 100 ml @ 9 mls/hr Q11H7M IV 01/13/25 18:45 UNV Amino Acids 0 ml @ 0 mls/hr PER PHARMACY IV 01/16/25 11:15 Potassium Chloride 100 ml @ 50 mls/hr Q2H IV 01/16/25 12:45 01/16/25 18:44 UNV Meropenem 50 ml @ 17 mls/hr Q12H IV 01/20/25 03:00 01/22/25 03:16 17 MLS/HR Vancomycin HCl 100 ml @ 100 mls/hr DAILY@1200 IV 01/20/25 12:00 UNV Vancomycin HCl 100 ml @ 200 mls/hr Q18H IV 01/20/25 12:00 01/21/25 23:41 200 MLS/HR Micafungin Sodium 100 mg/Sodium Chloride 100 ml @ 100 mls/hr DAILY IV 01/21/25 10:00 01/21/25 10:48 100 MLS/HR Bumetanide 1 mg BIDD IV 01/21/25 18:00 01/22/25 05:46 1 MG Insulin Glargine 20 units BID SC 01/21/25 10:00 01/21/25 16:32 20 UNITS Diagnostic Test (Pha) 1 strip Q6HR 01/21/25 12:00 01/22/25 05:41 1 STRIP Insulin Human Regular Q6HR SC 01/21/25 12:00 01/22/25 05:45 8 UNITS Dextrose 50 ml UD PRN IV 01/21/25 10:00 Fat Emulsion Intravenous 65 ml/ Sodium Acetate 20 meq/Magnesium Sulfate 12 meq/ Multivitamins 10 ml/Chromium/ Copper/Manganese/ Zinc 1 ml/Insulin Human Regular 17 units/Amino Acids/ Dextrose/Purified Water 1,089.17 ml @ 45 mls/hr [id number] IV 01/21/25 22:00 01/22/25 21:59 01/21/25 22:16 45 MLS/HR Labs and Microbiology Laboratory Tests 01/22/25 03:06 Test 01/22/25 03:06 Range/Units Serum Glucose 267 H 74-106 mg/dL Ass/Plan Labs and/or images reviewed: Labs reviewed by me, Image(s) reviewed by me Problem List Assessment and plan: NEURO: Acute metabolic encephalopathy secondary to acute hypoxic respiratory failure Status post intubation RASS score: -3 CARDIOVASCULAR: Septic shock secondary to perforation of the hollow viscus Paroxysmal atrial fibrillation with secondary hypercoagulable state Chronic diastolic heart failure with preserved ejection fraction - echo demonstrated EF 65%, mild LV diastolic dysfunction - Chest xray demonstrated bibasilar atelectasis - [id number] score more than 5 - hold Lovenox because of severe thrombocytopenia PULMONARY: Acute hypoxic respiratory failure secondary to bilateral pleural effusion Volume overload due to chronic HFpEF - chest x-ray demonstrated bilateral hazy opacities GASTROINTESTINAL: Perforation of the small bowel, status post exploratory laparotomy Transaminitis secondary to shock GENITOURINARY: ISRRAEL on CKD secondary to shock/VMN ENDOCRINE: History of hypothyroidism Type 2 diabetes mellitus, hemoglobin A1c 8.2 - Lantus 20 b.i.d. 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 Possible heparin-induced thrombocytopenia type 2 Acute DVT of right upper extremity - 2 unit of PRBC and platelet given since the surgery INFECTIOUS DISEASE: Sepsis with septic shock secondary to perforation of the small bowel - respiratory culture negative, peritoneal fluid culture demonstrated E coli, Klebsiella - continue IV vancomycin, IV meropenem and IV micafungin DIET: TPN DVT prophylax: Hold GI prophylaxis: Pantoprazole Bowel regimen: Code status: Full code LINES/DRAINS/ACCESS: ETT: Intubated on 01/14/25 IV access: Left IJ placed on 01/14/2025 Drips: Versed and fentanyl Perez catheter: Placed on 0 0 10/03 DISPOSITION: ICU Patient's status discussed with Son, brother and sister Critical care time spent more than 81 minutes, including patient care, chart review, and updating the family. Excluding any procedures. Case discussed with Dr. Pino Assessment/Plan 01/19/25 s/p Exploratory laparotomy, lysis of adhesions, extensive lavage, resection of perforated small bowel, enteroenterostomy. unchanged from yesterday abdomen soft, non distended, CARMEN drainage clear serous, no bowel activity, febrile, urine output ok, continues with thrombocytopenia, Plan: continue current treatment discussed with Dr. Christy 01/21/2025 s/p Exploratory laparotomy, lysis of adhesions, extensive lavage, resection of perforated small bowel, enteroenterostomy. abdomen soft, non distended, CARMEN drainage clear serous, no bowel activity, urine output ok, platelet count improved albumin low off pressors blood culture , gram negative rods Plan: continue meropenem antibiotics albumin x3 discussed with Dr. Christy 01/22/2025 s/p Exploratory laparotomy, lysis of adhesions, extensive lavage, resection of perforated small bowel, enteroenterostomy. abdomen soft, non distended, CARMEN drainage clear serous, no bowel activity, urine output ok, platelet count improved blood culture , gram positive rods labs reviewed Plan: continue with current treatment discussed with Dr. Christy Prognosis: Poor Plan discussed with Dr. Christy Visit Coding Surgery Date of Service if different f: Jan 22, 2025 Billing Provider: MELVA CHRISTY MD Surgery Visit Codes: [id number] INP/OBS CARE(HIGH) [employer]ICER Jan 22, 2025 09:54
--- NOTE | 2025-01-22 09:58 | DVHPN2 ---
Progress Note Date Seen: Jan 22, 2025 Has the PT tested + for MRSA If YES, has PT been informed?: No Medical Necessity Reason Pt with a Central, PICC or Fol: Yes The following are medically ne: Central Line, Leach Catheter Reason for leach catheter: Strict I&O Subjective Review of Systems: RESPIRATORY:Abnormal Other Systems: Patient seen and examined by myself today in follow-up, patient remained intubated on ventilator Objective vital signs Vital Sign Date Time Temp Pulse Resp B/P (MAP) Pulse Ox O2 Delivery O2 Flow Rate FiO2 01/22/25 09:00 98.2 117 24 103/53 (70) 100 208.8 01/22/25 08:50 30 01/22/25 08:00 Mechanical Ventilator+ Total Intake and Output 01/21/25 01/21/25 01/22/25 15:00 23:00 07:00 Intake Total 599.0 ml 659.75 ml 690.0 ml Output Total 680 ml 1720 ml Balance 599.0 ml -20.25 ml -1030.0 ml medications Current Medications Medications Dose Ordered Sig/Isaura Route Start Time Stop Time Status Last Admin Dose Admin Pantoprazole Sodium 40 mg DAILY IV 01/13/25 10:00 01/21/25 10:47 40 MG Cefazolin Sodium 50 ml @ 100 mls/hr Q8HR IV 01/13/25 14:00 UNV Midazolam HCl 50 ml @ 1 mls/hr Q24H IV 01/13/25 13:30 01/22/25 06:34 5 MLS/HR Fentanyl Citrate 250 ml @ 2.5 mls/hr Q24H IV 01/13/25 13:30 01/21/25 17:31 7.5 MLS/HR Norepinephrine Bitartrate 250 ml @ 3.75 mls/hr Q24H IV 01/13/25 13:30 01/21/25 17:20 3.75 MLS/HR Vancomycin HCl 0 ml @ 0 mls/hr UD IV 01/13/25 15:00 Vasopressin 20 units/Sodium Chloride 100 ml @ 9 mls/hr Q11H7M IV 01/13/25 18:45 UNV Amino Acids 0 ml @ 0 mls/hr PER PHARMACY IV 01/16/25 11:15 Potassium Chloride 100 ml @ 50 mls/hr Q2H IV 01/16/25 12:45 9/7/25 18:44 UNV Meropenem 50 ml @ 17 mls/hr Q12H IV 01/20/25 03:00 01/22/25 03:16 17 MLS/HR Vancomycin HCl 100 ml @ 100 mls/hr DAILY@1200 IV 01/20/25 12:00 UNV Vancomycin HCl 100 ml @ 200 mls/hr Q18H IV 01/20/25 12:00 01/21/25 23:41 200 MLS/HR Micafungin Sodium 100 mg/Sodium Chloride 100 ml @ 100 mls/hr DAILY IV 01/21/25 10:00 01/21/25 10:48 100 MLS/HR Bumetanide 1 mg BIDD IV 01/21/25 18:00 01/22/25 05:46 1 MG Insulin Glargine 20 units BID SC 01/21/25 10:00 01/21/25 16:32 20 UNITS Diagnostic Test (Pha) 1 strip Q6HR 01/21/25 12:00 01/22/25 05:41 1 STRIP Insulin Human Regular Q6HR SC 01/21/25 12:00 01/22/25 05:45 8 UNITS Dextrose 50 ml UD PRN IV 01/21/25 10:00 Fat Emulsion Intravenous 65 ml/ Sodium Acetate 20 meq/Magnesium Sulfate 12 meq/ Multivitamins 10 ml/Chromium/ Copper/Manganese/ Zinc 1 ml/Insulin Human Regular 17 units/Amino Acids/ Dextrose/Purified Water 1,089.17 ml @ 45 mls/hr [id number] IV 01/21/25 22:00 01/22/25 21:59 01/21/25 22:16 45 MLS/HR Examination: LUNGS:Normal, CVS:Normal, MSK:Normal laboratory and microbiology Laboratory Tests 01/22/25 03:06 Test 01/22/25 03:06 Range/Units Serum Glucose 267 H 74-106 mg/dL Microbiology Date/Time Source Procedure Growth Status 01/20/25 00:57 Blood Blood Culture - Preliminary NO GROWTH AFTER 48 HOURS OF INCUBATION. Resulted 01/13/25 17:10 Nose MRSA Screen - Final Complete 01/13/25 13:05 Sputum Gram Stain - Final Complete 01/13/25 13:05 Sputum Respiratory Culture - Final Complete 01/13/25 11:42 Peritoneal Fluid Gram Stain - Final Complete 01/13/25 11:42 Peritoneal Fluid Anaerobic Culture - Final Complete 01/13/25 11:42 Aerobic Culture - Final Escherichia coli Klebsiella pneumoniae Complete Problem List/Assessment/Plan Problem List/Assessment/Plan Acute kidney injury superimposed Chronic Kidney Disease secondary hemodynamic mediated Acute respiratory failure, patient intubated on ventilator Acute perforation of the abdomen / bowel ischemia s/p exlap History of atrial fibrillation previously on anticoagulation 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 Bumex 1 mg IV b.i.d. K-Phos IV piggyback Insulin sliding scale We will continue to follow up Plan discussed with: Other (Nurse) Dietary Evaluation Review Comments: Nutrition Recommendation: 1) TPN to meet at least 75% estimated needs within 7 days 2) Monitor NPO status, lab values, wt trend, I/O Expected Outcomes/Goals: To meet >75% estimated needs Lab values to improve Fu 2-3 days CC Plasma Assessment Blood Product Administration S: [id number] LAKESHA REINA MD Jan 22, 2025 09:58
--- NOTE | 2025-01-22 10:37 | DVHPN2 ---
Progress Note - Dictate Date Seen: Jan 22, 2025 Has the PT tested + for MRSA If YES, has PT been informed?: No Medical Necessity Reason Pt with a Central, PICC or Fol: Yes The following are medically ne: Central Line, Leach Catheter Reason for leach catheter: Strict I&O vital signs Vital Sign Date Time Temp Pulse Resp B/P (MAP) Pulse Ox O2 Delivery O2 Flow Rate FiO2 01/22/25 09:00 98.2 117 24 103/53 (70) 100 208.8 01/22/25 08:50 30 01/22/25 08:00 Mechanical Ventilator+ Total Intake and Output 01/21/25 01/21/25 01/22/25 15:00 23:00 07:00 Intake Total 599.0 ml 659.75 ml 690.0 ml Output Total 680 ml 1720 ml Balance 599.0 ml -20.25 ml -1030.0 ml medications Current Medications Medications Dose Ordered Sig/Isaura Route Start Time Stop Time Status Last Admin Dose Admin Pantoprazole Sodium 40 mg DAILY IV 01/13/25 10:00 01/21/25 10:47 40 MG Cefazolin Sodium 50 ml @ 100 mls/hr Q8HR IV 01/13/25 14:00 UNV Midazolam HCl 50 ml @ 1 mls/hr Q24H IV 01/13/25 13:30 01/22/25 06:34 5 MLS/HR Fentanyl Citrate 250 ml @ 2.5 mls/hr Q24H IV 01/13/25 13:30 01/21/25 17:31 7.5 MLS/HR Norepinephrine Bitartrate 250 ml @ 3.75 mls/hr Q24H IV 01/13/25 13:30 01/21/25 17:20 3.75 MLS/HR Vancomycin HCl 0 ml @ 0 mls/hr UD IV 01/13/25 15:00 Vasopressin 20 units/Sodium Chloride 100 ml @ 9 mls/hr Q11H7M IV 01/13/25 18:45 UNV Amino Acids 0 ml @ 0 mls/hr PER PHARMACY IV 01/16/25 11:15 Potassium Chloride 100 ml @ 50 mls/hr Q2H IV 01/16/25 12:45 01/16/25 18:44 UNV Meropenem 50 ml @ 17 mls/hr Q12H IV 01/20/25 03:00 01/22/25 03:16 17 MLS/HR Vancomycin HCl 100 ml @ 100 mls/hr DAILY@1200 IV 01/20/25 12:00 UNV Vancomycin HCl 100 ml @ 200 mls/hr Q18H IV 01/20/25 12:00 01/21/25 23:41 200 MLS/HR Micafungin Sodium 100 mg/Sodium Chloride 100 ml @ 100 mls/hr DAILY IV 01/21/25 10:00 01/21/25 10:48 100 MLS/HR Bumetanide 1 mg BIDD IV 01/21/25 18:00 01/22/25 05:46 1 MG Insulin Glargine 20 units BID SC 01/21/25 10:00 01/21/25 16:32 20 UNITS Diagnostic Test (Pha) 1 strip Q6HR 01/21/25 12:00 01/22/25 05:41 1 STRIP Insulin Human Regular Q6HR SC 01/21/25 12:00 01/22/25 05:45 8 UNITS Dextrose 50 ml UD PRN IV 01/21/25 10:00 Fat Emulsion Intravenous 65 ml/ Sodium Acetate 20 meq/Magnesium Sulfate 12 meq/ Multivitamins 10 ml/Chromium/ Copper/Manganese/ Zinc 1 ml/Insulin Human Regular 17 units/Amino Acids/ Dextrose/Purified Water 1,089.17 ml @ 45 mls/hr [id number] IV 01/21/25 22:00 01/22/25 21:59 01/21/25 22:16 45 MLS/HR laboratory and microbiology Laboratory Tests 01/22/25 03:06 Test 01/22/25 03:06 Range/Units Serum Glucose 267 H 74-106 mg/dL Assessment/Plan Covering for Dr. [employer] rounds Impression Acute hypoxemic respiratory failure Bowel perforation S/p resection Sepsis ISRRAEL Patient seen and examined in ICU Events On mechanical ventilation S/p intubation PEEP 5, FiO2 30% S/p resection and colostomy ABG reviewed compensated pt re-sedated overnight with versed Management Vent support Titrate to maintain sats 90% or above Sedation holiday daily If patient follows commands, proceed to weaning trial Pressure support 7/5, extubate when ready Continue antibiotics F/u cultures Bronchodilators Monitor renal function Monitor electrolytes Supplement as needed Pressors as needed for hemodynamic support To maintain a mean arterial pressure of 65 mmHg Monitor hemoglobin DVT prophylaxis Critical care time 35 minutes Dietary Evaluation Review Comments: Nutrition Recommendation: 1) TPN to meet at least 75% estimated needs within 7 days 2) Monitor NPO status, lab values, wt trend, I/O Expected Outcomes/Goals: To meet >75% estimated needs Lab values to improve Fu 2-3 days Plan discussed with: Other (rn) CC Plasma Assessment Blood Product Administration S: [id number] ROCIO ENNIS MD Jan 22, 2025 10:37
--- NOTE | 2025-01-22 14:26 | DVHPN2 ---
Subjective The patient is seen and examined at bedside. Remained intubated. Reviewed: Care Plan, H&P Changes from previous H/P or p: No Changes Gastrointestinal: Abdominal Pain Objective Vitals Vital Signs Date Time Temp Pulse Resp B/P (MAP) Pulse Ox O2 Delivery O2 Flow Rate FiO2 01/22/25 14:07 116 21 105/43 100 40 01/22/25 14:00 Mechanical Ventilator+ 01/22/25 09:00 98.2 208.8 Intake/Output Intake and Output 01/22/25 07:00 Intake Total 1948.75 ml Output Total 2400 ml Balance -451.25 ml Intake Oral 0 ml IV Total 1948.75 ml Output Urine Total 2250 ml Gastric Drainage Total 60 ml Drainage Total 90 ml General Appearance: Other (Intubated, on vent, unable to exam) HEENT: Atraumatic, Mucous membr. moist/pink Neck: Supple Lungs: Clear to auscultation, Normal air movement, Other (Ventilation support) Cardiovascular: Regular rate, Normal S1, Normal S2, No murmurs, Gallops, Rubs Abdomen: Normal bowel sounds, Soft, No tenderness Medications Current Medications Medications Dose Ordered Sig/Isaura Route Start Time Stop Time Status Last Admin Dose Admin Pantoprazole Sodium 40 mg DAILY IV 01/13/25 10:00 01/22/25 10:36 40 MG Cefazolin Sodium 50 ml @ 100 mls/hr Q8HR IV 01/13/25 14:00 UNV Midazolam HCl 50 ml @ 1 mls/hr Q24H IV 01/13/25 13:30 01/22/25 06:34 5 MLS/HR Fentanyl Citrate 250 ml @ 2.5 mls/hr Q24H IV 01/13/25 13:30 01/21/25 17:31 7.5 MLS/HR Norepinephrine Bitartrate 250 ml @ 3.75 mls/hr Q24H IV 01/13/25 13:30 01/21/25 17:20 3.75 MLS/HR Vancomycin HCl 0 ml @ 0 mls/hr UD IV 01/13/25 15:00 Vasopressin 20 units/Sodium Chloride 100 ml @ 9 mls/hr Q11H7M IV 01/13/25 18:45 UNV Amino Acids 0 ml @ 0 mls/hr PER PHARMACY IV 01/16/25 11:15 Potassium Chloride 100 ml @ 50 mls/hr Q2H IV 01/16/25 12:45 01/16/25 18:44 UNV Meropenem 50 ml @ 17 mls/hr Q12H IV 01/20/25 03:00 01/22/25 03:16 17 MLS/HR Vancomycin HCl 100 ml @ 100 mls/hr DAILY@1200 IV 01/20/25 12:00 UNV Vancomycin HCl 100 ml @ 200 mls/hr Q18H IV 01/20/25 12:00 01/21/25 23:41 200 MLS/HR Micafungin Sodium 100 mg/Sodium Chloride 100 ml @ 100 mls/hr DAILY IV 01/21/25 10:00 01/22/25 10:40 100 MLS/HR Bumetanide 1 mg BIDD IV 01/21/25 18:00 01/22/25 05:46 1 MG Insulin Glargine 20 units BID SC 01/21/25 10:00 01/21/25 16:32 20 UNITS Diagnostic Test (Pha) 1 strip Q6HR 01/21/25 12:00 01/22/25 11:55 1 STRIP Insulin Human Regular Q6HR SC 01/21/25 12:00 01/22/25 11:58 4 UNITS Dextrose 50 ml UD PRN IV 01/21/25 10:00 Fat Emulsion Intravenous 65 ml/ Sodium Acetate 20 meq/Magnesium Sulfate 12 meq/ Multivitamins 10 ml/Chromium/ Copper/Manganese/ Zinc 1 ml/Insulin Human Regular 17 units/Amino Acids/ Dextrose/Purified Water 1,089.17 ml @ 45 mls/hr [id number] IV 01/21/25 22:00 01/22/25 21:59 01/21/25 22:16 45 MLS/HR Fat Emulsion Intravenous 65 ml/ Sodium Acetate 20 meq/Magnesium Sulfate 10 meq/ Multivitamins 10 ml/Chromium/ Copper/Manganese/ Zinc 1 ml/Insulin Human Regular 17 units/Amino Acids/ Dextrose/Purified Water 1,088.67 ml @ 45 mls/hr [id number] IV 01/22/25 22:00 01/23/25 21:59 Laboratory Results Laboratory Tests 01/22/25 03:06 Chemistry Test 01/22/25 03:06 Albumin 3.0 g/dL (3.2-4.8) L Calcium Level 8.7 mg/dL (8.7-10.4) Magnesium Level 2.2 mg/dL (1.6-2.6) Phosphorus Level 4.6 mg/dL (2.4-5.1) Total Protein 5.6 g/dL (5.7-8.2) L LFT Test 01/22/25 03:06 Alanine Aminotransferase (ALT) < 9 U/L (7-40) Alkaline Phosphatase 100 U/L (46-116) Aspartate Amino Transferase (AST) 27 U/L (13-40) Total Bilirubin 1.0 mg/dL (0.2-1.0) Urinalysis Test 01/14/25 02:00 Urine Color Yellow (Yellow) Urine Clarity Turbid (Clear) H Urine pH 6.0 (5.0-9.0) Urine Specific [place] 1.016 (1.001-1.035) Urine Protein 1+ (Negative) H Urine Ketones Trace (Negative) Urine Blood 1+ /uL (Negative) H Urine Nitrite Negative (Negative) Urine Bilirubin Negative (Negative) Urine Urobilinogen Normal mg/dL (Negative) Urine Leukocyte Esterase Negative /uL (Negative) Urine RBC 10 /hpf (0 - 4) Urine Microscopic WBC 2 /HPF (0-5) Urine Squamous Epithelial Cells Few /hpf (<5) Urine Amorphous Crystals Few /hpf (None Seen) Urine Bacteria None seen /hpf (None Seen) Urine Creatinine 34.09 mg/dL (30.0-125.0) Urine Protein/Creatinine Ratio 3.85 Urine Sodium 76 mmol/L (40-220) Urine Glucose Normal mg/dL (Normal) Urine Total Protein 131.1 mg/dL (1-14) H Blood Gas Results Test 01/22/25 07:39 Arterial Blood pH 7.353 (7.350-7.450) FiO2 % 30.0 Microbiology Microbiology Date/Time Source Procedure Growth Status 01/20/25 00:57 Blood Blood Culture - Preliminary NO GROWTH AFTER 48 HOURS OF INCUBATION. Resulted 01/13/25 17:10 Nose MRSA Screen - Final Complete 01/13/25 13:05 Sputum Gram Stain - Final Complete 01/13/25 13:05 Sputum Respiratory Culture - Final Complete 01/13/25 11:42 Peritoneal Fluid Gram Stain - Final Complete 01/13/25 11:42 Peritoneal Fluid Anaerobic Culture - Final Complete 01/13/25 11:42 Aerobic Culture - Final Escherichia coli Klebsiella pneumoniae Complete Labs and/or images reviewed: Labs reviewed by me Assessment/Plan Assessment/Plan NEURO: Acute metabolic encephalopathy secondary to acute hypoxic respiratory failure Status post intubation RASS score: -3 CARDIOVASCULAR: Septic shock secondary to perforation of the hollow viscus Paroxysmal atrial fibrillation with secondary hypercoagulable state Chronic diastolic heart failure with preserved ejection fraction - echo demonstrated EF 65%, mild LV diastolic dysfunction - Chest xray demonstrated bibasilar atelectasis - [id number] score more than 5 - hold Lovenox because of severe thrombocytopenia PULMONARY: Acute hypoxic respiratory failure secondary to bilateral pleural effusion Volume overload due to chronic HFpEF - chest x-ray demonstrated bilateral hazy opacities GASTROINTESTINAL: Perforation of the small bowel, status post exploratory laparotomy Transaminitis secondary to shock GENITOURINARY: ISRRAEL on CKD secondary to shock/VMN ENDOCRINE: History of hypothyroidism Type 2 diabetes mellitus, hemoglobin A1c 8.2 - Lantus 20 b.i.d. 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 Possible heparin-induced thrombocytopenia type 2 Acute DVT of right upper extremity - 2 unit of PRBC and platelet given since the surgery INFECTIOUS DISEASE: Sepsis with septic shock secondary to perforation of the small bowel - respiratory culture negative, peritoneal fluid culture demonstrated E coli, Klebsiella - continue IV vancomycin, IV meropenem and IV micafungin DIET: TPN DVT prophylax: Hold GI prophylaxis: Pantoprazole Bowel regimen: Code status: Full code LINES/DRAINS/ACCESS: ETT: Intubated on 01/14/25 IV access: Left IJ placed on 01/14/2025 Drips: Versed and fentanyl Perez catheter: Placed on 10/03 Continuing current management. Continuing with ventilation support. Continuing CPAP trial. Critical care spent for this case today is 38 minutes. This medical document was created using an electronic medical record system with [employer] direct computerized dictation system. Although this document has been carefully reviewed, there may still be some phonetic and typographical errors. These areas are purely typographical due to imperfections of the software programs, and do not reflect any compromise in the patient's medical care. Plan discussed with: Other (Rn) Date of Service: Jan 22, 2025 Billing Provider: LEANN MORIN MD Common Visit Codes: 49366-[id number] CARE 30-74 MIN LEANN MORIN MD Jan 22, 2025 14:26
[2025-01-22] MEDS: TPN*HIGH CONC* PER PHARMACY IV NR (22:05)
[2025-01-22] MEDS: fentaNYL Drip 2500mCg/250mlNS 250 ML IV SCH (23:45)
[2025-01-23] VITALS (107 sets, daily range): BP systolic 107–161; BP diastolic 52–79; PULSE 98–122; RESP 13–30; TEMP 96.4–99; O2SAT 93–100
[2025-01-23 03:29] LABS: Hematocrit 22.8 % (36.0-46.0)
[2025-01-23 03:34] LABS: Hemoglobin 7.7 g/dL (12.2-16.2); Mean Corpuscular Hemoglobin 30.0 pg (28.0-32.0); Mean Corpuscular Volume 89.0 fL (80.0-100.0); Nucleated Red Blood Cells % 0.0 %
[2025-01-23 03:36] LABS: Anion Gap 11 (5-15); BUN/Creatinine Ratio 55.6 (10.0-20.0); Carbon Dioxide 28 mmol/L (20-31); Chloride 102 mmol/L (98-107); Magnesium 2.0 mg/dL (1.6-2.6); Sodium 141 mmol/L (136-145)
[2025-01-23 03:37] LABS: Bilirubin, Total 0.9 mg/dL (0.2-1.0)
[2025-01-23 04:04] LABS: Alanine Aminotransferase < 9 U/L (7-40); Albumin 2.9 g/dL (3.2-4.8); Alkaline Phosphatase 138 U/L (46-116); Blood Urea Nitrogen 65 mg/dL (9-23); Calcium 8.7 mg/dL (8.7-10.4); Glucose 253 mg/dL (74-106); Potassium 3.5 mmol/L (3.5-5.1); Total Protein 5.6 g/dL (5.7-8.2)
[2025-01-23] MEDS: POTASSIUM CHL 20MEQ/100ML 200 ML IV ONE (04:58)
[2025-01-23] MEDS: POTASSIUM CHL 20MEQ/100ML 100 ML IV SCH (05:18)
--- NOTE | 2025-01-23 05:55 | DVH ---
CHEST RADIOGRAPH Indication: INTUBATED Technique: Single frontal view of the chest was obtained Comparison: XY CHEST PORTABLE on DOS: 01/22/25, XY CHEST PORTABLE on DOS: 01/21/25, XY CHEST PORTABLE o n DOS: 01/20/25 IMPRESSION: There are low lung volumes. Small bilateral pleural effusions, left greater than right. Support joanne es and tubes appear similar in position. Left IJ catheter tip may be entering the azygous. Endotrach eal and enteric tube appear satisfactory in position. Otherwise no significant interval change.
[2025-01-23 07:44] LABS: Base Excess 3.0 mmol/L (-2.0-3.0)
--- NOTE | 2025-01-23 10:13 | DVH ---
AP portable chest CLINICAL INDICATION: Confirm central line placement. Comparison: 01/22/2025 FINDINGS: Endotracheal tube tip 6 cm above the vijay. Central line tip in the mid superior vena cava. Heart size enlarged There is some consolidation and effusion in the left lung base. IMPRESSION: 1. Endotracheal tube tip and central line tip as described. Slight improvement in basilar consolidation s and effusions with residual now in the left
[2025-01-23] MEDS: DEXMEDETOMIDINE HCL IN D5W 100 ML IV SCH (12:00)
--- NOTE | 2025-01-23 12:24 | DVHPN2 ---
Progress Note Date Seen: Jan 23, 2025 Has the PT tested + for MRSA If YES, has PT been informed?: No Medical Necessity Reason Pt with a Central, PICC or Fol: Yes The following are medically ne: Central Line, Leach Catheter Reason for leach catheter: Strict I&O Subjective Review of Systems: RESPIRATORY:Abnormal Other Systems: Patient seen and examined by myself today in follow-up, patient remained intubated on ventilator Objective vital signs Vital Sign Date Time Temp Pulse Resp B/P (MAP) Pulse Ox O2 Delivery O2 Flow Rate FiO2 01/23/25 10:52 109 19 142/60 (87) 97 30 01/23/25 10:15 98.1 208.6 01/23/25 10:00 Mechanical Ventilator+ Total Intake and Output 01/22/25 01/22/25 01/23/25 15:00 23:00 07:00 Intake Total 521.25 ml 571.0 ml 497.5 ml Output Total 2635 ml 2710 ml Balance 521.25 ml -2064.0 ml -2212.5 ml medications Current Medications Medications Dose Ordered Sig/Isaura Route Start Time Stop Time Status Last Admin Dose Admin Pantoprazole Sodium 40 mg DAILY IV 01/13/25 10:00 01/23/25 10:10 40 MG Cefazolin Sodium 50 ml @ 100 mls/hr Q8HR IV 01/13/25 14:00 UNV Midazolam HCl 50 ml @ 1 mls/hr Q24H IV 01/13/25 13:30 01/22/25 06:34 5 MLS/HR Norepinephrine Bitartrate 250 ml @ 3.75 mls/hr Q24H IV 01/13/25 13:30 01/21/25 17:20 3.75 MLS/HR Vancomycin HCl 0 ml @ 0 mls/hr UD IV 01/13/25 15:00 Vasopressin 20 units/Sodium Chloride 100 ml @ 9 mls/hr Q11H7M IV 01/13/25 18:45 UNV Amino Acids 0 ml @ 0 mls/hr PER PHARMACY IV 01/16/25 11:15 Potassium Chloride 100 ml @ 50 mls/hr Q2H IV 01/16/25 12:45 01/16/25 18:44 UNV Meropenem 50 ml @ 17 mls/hr Q12H IV 01/20/25 03:00 01/23/25 03:03 17 MLS/HR Vancomycin HCl 100 ml @ 100 mls/hr DAILY@1200 IV 01/20/25 12:00 UNV Vancomycin HCl 100 ml @ 200 mls/hr Q18H IV 01/20/25 12:00 01/23/25 12:05 200 MLS/HR Micafungin Sodium 100 mg/Sodium Chloride 100 ml @ 100 mls/hr DAILY IV 01/21/25 10:00 01/23/25 10:10 100 MLS/HR Bumetanide 1 mg BIDD IV 01/21/25 18:00 01/23/25 05:36 1 MG Insulin Glargine 20 units BID SC 01/21/25 10:00 01/23/25 10:17 20 UNITS Diagnostic Test (Pha) 1 strip Q6HR 01/21/25 12:00 01/23/25 12:05 1 STRIP Insulin Human Regular Q6HR SC 01/21/25 12:00 01/23/25 12:13 2 UNITS Dextrose 50 ml UD PRN IV 01/21/25 10:00 Fat Emulsion Intravenous 65 ml/ Sodium Acetate 20 meq/Magnesium Sulfate 10 meq/ Multivitamins 10 ml/Chromium/ Copper/Manganese/ Zinc 1 ml/Insulin Human Regular 17 units/Amino Acids/ Dextrose/Purified Water 1,088.67 ml @ 45 mls/hr [id number] IV 01/22/25 22:00 01/23/25 21:59 01/22/25 22:05 45 MLS/HR Fentanyl Citrate 250 ml @ 2.5 mls/hr Q24H IV 01/22/25 19:00 01/22/25 23:45 2.5 MLS/HR Fat Emulsion Intravenous 65 ml/ Sodium Chloride 10 meq/Sodium Acetate 10 meq/ Potassium Phosphate 22 meq/ Magnesium Sulfate 10 meq/ Multivitamins 10 ml/Chromium/ Copper/Manganese/ Zinc 1 ml/Insulin Human Regular 18 units/Amino Acids/ Dextrose/Purified Water 1,091.18 ml @ 45 mls/hr [id number] IV 01/23/25 22:00 01/24/25 21:59 Examination: LUNGS:Normal, CVS:Normal, MSK:Normal laboratory and microbiology Laboratory Tests 01/23/25 02:50 Test 01/23/25 02:50 Range/Units Serum Glucose 253 H 74-106 mg/dL Microbiology Date/Time Source Procedure Growth Status 01/20/25 00:57 Blood Blood Culture - Preliminary NO GROWTH AFTER 72 HOURS OF INCUBATION. Resulted 01/13/25 17:10 Nose MRSA Screen - Final Complete 01/13/25 13:05 Sputum Gram Stain - Final Complete 01/13/25 13:05 Sputum Respiratory Culture - Final Complete 01/13/25 11:42 Peritoneal Fluid Gram Stain - Final Complete 01/13/25 11:42 Peritoneal Fluid Anaerobic Culture - Final Complete 01/13/25 11:42 Aerobic Culture - Final Escherichia coli Klebsiella pneumoniae Complete Problem List/Assessment/Plan Problem List/Assessment/Plan Acute kidney injury superimposed Chronic Kidney Disease secondary hemodynamic mediated Acute respiratory failure, patient intubated on ventilator Acute perforation of the abdomen / bowel ischemia s/p exlap History of atrial fibrillation previously on anticoagulation 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 Bumex 1 mg IV b.i.d. K-Phos IV piggyback Insulin sliding scale We will continue to follow up Plan discussed with: Other (Nurse) Dietary Evaluation Review Comments: Nutrition Recommendation: 1) TPN to meet at least 75% estimated needs within 7 days 2) Monitor NPO status, lab values, wt trend, I/O Expected Outcomes/Goals: To meet >75% estimated needs Lab values to improve Fu 2-3 days CC Plasma Assessment Blood Product Administration S: [id number] LAKESHA REINA MD Jan 23, 2025 12:24
--- NOTE | 2025-01-23 13:54 | DVHPN2 ---
Progress Note - Dictate Date Seen: Jan 23, 2025 Has the PT tested + for MRSA If YES, has PT been informed?: No Medical Necessity Reason Pt with a Central, PICC or Fol: Yes The following are medically ne: Central Line, Leach Catheter Reason for leach catheter: Strict I&O vital signs Vital Sign Date Time Temp Pulse Resp B/P (MAP) Pulse Ox O2 Delivery O2 Flow Rate FiO2 01/23/25 12:40 110 21 122/67 (85) 97 30 01/23/25 12:30 98.6 209.5 01/23/25 12:00 Mechanical Ventilator+ Total Intake and Output 01/22/25 01/22/25 01/23/25 15:00 23:00 07:00 Intake Total 521.25 ml 571.0 ml 497.5 ml Output Total 2635 ml 2710 ml Balance 521.25 ml -2064.0 ml -2212.5 ml medications Current Medications Medications Dose Ordered Sig/Isaura Route Start Time Stop Time Status Last Admin Dose Admin Pantoprazole Sodium 40 mg DAILY IV 01/13/25 10:00 01/23/25 10:10 40 MG Cefazolin Sodium 50 ml @ 100 mls/hr Q8HR IV 01/13/25 14:00 UNV Midazolam HCl 50 ml @ 1 mls/hr Q24H IV 01/13/25 13:30 01/22/25 06:34 5 MLS/HR Norepinephrine Bitartrate 250 ml @ 3.75 mls/hr Q24H IV 01/13/25 13:30 01/21/25 17:20 3.75 MLS/HR Vancomycin HCl 0 ml @ 0 mls/hr UD IV 01/13/25 15:00 Vasopressin 20 units/Sodium Chloride 100 ml @ 9 mls/hr Q11H7M IV 01/13/25 18:45 UNV Amino Acids 0 ml @ 0 mls/hr PER PHARMACY IV 01/16/25 11:15 Potassium Chloride 100 ml @ 50 mls/hr Q2H IV 01/16/25 12:45 01/16/25 18:44 UNV Meropenem 50 ml @ 17 mls/hr Q12H IV 01/20/25 03:00 01/23/25 03:03 17 MLS/HR Vancomycin HCl 100 ml @ 100 mls/hr DAILY@1200 IV 01/20/25 12:00 UNV Vancomycin HCl 100 ml @ 200 mls/hr Q18H IV 01/20/25 12:00 01/23/25 12:05 200 MLS/HR Micafungin Sodium 100 mg/Sodium Chloride 100 ml @ 100 mls/hr DAILY IV 01/21/25 10:00 01/23/25 10:10 100 MLS/HR Bumetanide 1 mg BIDD IV 01/21/25 18:00 01/23/25 05:36 1 MG Insulin Glargine 20 units BID SC 01/21/25 10:00 01/23/25 10:17 20 UNITS Diagnostic Test (Pha) 1 strip Q6HR 01/21/25 12:00 01/23/25 12:05 1 STRIP Insulin Human Regular Q6HR SC 01/21/25 12:00 01/23/25 12:13 2 UNITS Dextrose 50 ml UD PRN IV 01/21/25 10:00 Fat Emulsion Intravenous 65 ml/ Sodium Acetate 20 meq/Magnesium Sulfate 10 meq/ Multivitamins 10 ml/Chromium/ Copper/Manganese/ Zinc 1 ml/Insulin Human Regular 17 units/Amino Acids/ Dextrose/Purified Water 1,088.67 ml @ 45 mls/hr [id number] IV 01/22/25 22:00 01/23/25 21:59 01/22/25 22:05 45 MLS/HR Fentanyl Citrate 250 ml @ 2.5 mls/hr Q24H IV 01/22/25 19:00 01/22/25 23:45 2.5 MLS/HR Fat Emulsion Intravenous 65 ml/ Sodium Chloride 10 meq/Sodium Acetate 10 meq/ Potassium Phosphate 22 meq/ Magnesium Sulfate 10 meq/ Multivitamins 10 ml/Chromium/ Copper/Manganese/ Zinc 1 ml/Insulin Human Regular 18 units/Amino Acids/ Dextrose/Purified Water 1,091.18 ml @ 45 mls/hr [id number] IV 01/23/25 22:00 01/24/25 21:59 laboratory and microbiology Laboratory Tests 01/23/25 02:50 Test 01/23/25 02:50 Range/Units Serum Glucose 253 H 74-106 mg/dL Assessment/Plan Covering for Dr. Reed Director Of Product Management rounds Impression Acute hypoxemic respiratory failure Bowel perforation S/p resection Sepsis ISRRAEL Patient seen and examined in ICU Events On mechanical ventilation S/p intubation PEEP 5, FiO2 30% S/p resection and colostomy ABG reviewed Management Vent support Titrate to maintain sats 90% or above Sedation holiday daily If patient follows commands, proceed to weaning trial Pressure support 11/13, extubate when ready Continue antibiotics F/u cultures Bronchodilators Monitor renal function Monitor electrolytes Supplement as needed Pressors as needed for hemodynamic support To maintain a mean arterial pressure of 65 mmHg Monitor hemoglobin DVT prophylaxis Critical care time 35 minutes Dietary Evaluation Review Comments: Nutrition Recommendation: 1) TPN to meet at least 75% estimated needs within 7 days 2) Monitor NPO status, lab values, wt trend, I/O Expected Outcomes/Goals: To meet >75% estimated needs Lab values to improve Fu 2-3 days Plan discussed with: Other (Rn) CC Plasma Assessment Blood Product Administration S: [id number] ROCIO ENNIS MD Jan 23, 2025 13:54
--- NOTE | 2025-01-23 22:19 | DVHPN2 ---
Subjective The patient is seen and examined at bedside. Remained intubated. Reviewed: Care Plan, H&P Changes from previous H/P or p: No Changes Gastrointestinal: Abdominal Pain Objective Vitals Vital Signs Date Time Temp Pulse Resp B/P (MAP) Pulse Ox O2 Delivery O2 Flow Rate FiO2 01/23/25 20:30 98.2 118 26 137/75 (95) 97 208.8 01/23/25 20:07 30 01/23/25 20:00 Mechanical Ventilator+ Intake/Output Intake and Output 01/23/25 07:00 Intake Total 1589.75 ml Output Total 5345 ml Balance -3755.25 ml IV Total 1589.75 ml Output Urine Total 5275 ml Drainage Total 35 ml Other 35 ml General Appearance: Other (Intubated, on vent, unable to exam) HEENT: Atraumatic, Mucous membr. moist/pink Neck: Supple Lungs: Clear to auscultation, Normal air movement, Other (Ventilation support) Cardiovascular: Regular rate, Normal S1, Normal S2, No murmurs, Gallops, Rubs Abdomen: Normal bowel sounds, Soft, No tenderness Medications Current Medications Medications Dose Ordered Sig/Isaura Route Start Time Stop Time Status Last Admin Dose Admin Pantoprazole Sodium 40 mg DAILY IV 01/13/25 10:00 01/23/25 10:10 40 MG Cefazolin Sodium 50 ml @ 100 mls/hr Q8HR IV 01/13/25 14:00 UNV Midazolam HCl 50 ml @ 1 mls/hr Q24H IV 01/13/25 13:30 01/22/25 06:34 5 MLS/HR Norepinephrine Bitartrate 250 ml @ 3.75 mls/hr Q24H IV 01/13/25 13:30 01/21/25 17:20 3.75 MLS/HR Vancomycin HCl 0 ml @ 0 mls/hr UD IV 01/13/25 15:00 Vasopressin 20 units/Sodium Chloride 100 ml @ 9 mls/hr Q11H7M IV 01/13/25 18:45 UNV Amino Acids 0 ml @ 0 mls/hr PER PHARMACY IV 01/16/25 11:15 Potassium Chloride 100 ml @ 50 mls/hr Q2H IV 01/16/25 12:45 01/16/25 18:44 UNV Meropenem 50 ml @ 17 mls/hr Q12H IV 01/20/25 03:00 01/23/25 15:08 17 MLS/HR Vancomycin HCl 100 ml @ 100 mls/hr DAILY@1200 IV 01/20/25 12:00 UNV Vancomycin HCl 100 ml @ 200 mls/hr Q18H IV 01/20/25 12:00 01/23/25 12:05 200 MLS/HR Micafungin Sodium 100 mg/Sodium Chloride 100 ml @ 100 mls/hr DAILY IV 01/21/25 10:00 01/23/25 10:10 100 MLS/HR Bumetanide 1 mg BIDD IV 01/21/25 18:00 01/23/25 18:14 1 MG Insulin Glargine 20 units BID SC 01/21/25 10:00 01/23/25 10:17 20 UNITS Diagnostic Test (Pha) 1 strip Q6HR 01/21/25 12:00 01/23/25 18:14 1 STRIP Insulin Human Regular Q6HR SC 01/21/25 12:00 01/23/25 18:31 8 UNITS Dextrose 50 ml UD PRN IV 01/21/25 10:00 Fentanyl Citrate 250 ml @ 2.5 mls/hr Q24H IV 01/22/25 19:00 01/22/25 23:45 2.5 MLS/HR Fat Emulsion Intravenous 65 ml/ Sodium Chloride 10 meq/Sodium Acetate 10 meq/ Potassium Phosphate 22 meq/ Magnesium Sulfate 10 meq/ Multivitamins 10 ml/Chromium/ Copper/Manganese/ Zinc 1 ml/Insulin Human Regular 18 units/Amino Acids/ Dextrose/Purified Water 1,091.18 ml @ 45 mls/hr [id number] IV 01/23/25 22:00 01/24/25 21:59 Laboratory Results Laboratory Tests 01/23/25 02:50 Chemistry Test 01/23/25 02:50 Albumin 2.9 g/dL (3.2-4.8) L Calcium Level 8.7 mg/dL (8.7-10.4) Magnesium Level 2.0 mg/dL (1.6-2.6) Phosphorus Level 2.9 mg/dL (2.4-5.1) Total Protein 5.6 g/dL (5.7-8.2) L LFT Test 01/23/25 02:50 Alanine Aminotransferase (ALT) < 9 U/L (7-40) Alkaline Phosphatase 138 U/L (46-116) H Aspartate Amino Transferase (AST) 27 U/L (13-40) Total Bilirubin 0.9 mg/dL (0.2-1.0) Urinalysis Test 01/14/25 02:00 Urine Color Yellow (Yellow) Urine Clarity Turbid (Clear) H Urine pH 6.0 (5.0-9.0) Urine Specific [place] 1.016 (1.001-1.035) Urine Protein 1+ (Negative) H Urine Ketones Trace (Negative) Urine Blood 1+ /uL (Negative) H Urine Nitrite Negative (Negative) Urine Bilirubin Negative (Negative) Urine Urobilinogen Normal mg/dL (Negative) Urine Leukocyte Esterase Negative /uL (Negative) Urine RBC 10 /hpf (0 - 4) Urine Microscopic WBC 2 /HPF (0-5) Urine Squamous Epithelial Cells Few /hpf (<5) Urine Amorphous Crystals Few /hpf (None Seen) Urine Bacteria None seen /hpf (None Seen) Urine Creatinine 34.09 mg/dL (30.0-125.0) Urine Protein/Creatinine Ratio 3.85 Urine Sodium 76 mmol/L (40-220) Urine Glucose Normal mg/dL (Normal) Urine Total Protein 131.1 mg/dL (1-14) H Blood Gas Results Test 01/23/25 07:25 Arterial Blood pH 7.495 (7.350-7.450) FiO2 % 30.0 Microbiology Microbiology Date/Time Source Procedure Growth Status 01/20/25 00:57 Blood Blood Culture - Preliminary NO GROWTH AFTER 72 HOURS OF INCUBATION. Resulted 01/13/25 17:10 Nose MRSA Screen - Final Complete 01/13/25 13:05 Sputum Gram Stain - Final Complete 01/13/25 13:05 Sputum Respiratory Culture - Final Complete 01/13/25 11:42 Peritoneal Fluid Gram Stain - Final Complete 01/13/25 11:42 Peritoneal Fluid Anaerobic Culture - Final Complete 01/13/25 11:42 Aerobic Culture - Final Escherichia coli Klebsiella pneumoniae Complete Labs and/or images reviewed: Labs reviewed by me Assessment/Plan Assessment/Plan NEURO: Acute metabolic encephalopathy secondary to acute hypoxic respiratory failure Status post intubation RASS score: -3 CARDIOVASCULAR: Septic shock secondary to perforation of the hollow viscus Paroxysmal atrial fibrillation with secondary hypercoagulable state Chronic diastolic heart failure with preserved ejection fraction - echo demonstrated EF 65%, mild LV diastolic dysfunction - Chest xray demonstrated bibasilar atelectasis - [id number] score more than 5 - hold Lovenox because of severe thrombocytopenia PULMONARY: Acute hypoxic respiratory failure secondary to bilateral pleural effusion Volume overload due to chronic HFpEF - chest x-ray demonstrated bilateral hazy opacities GASTROINTESTINAL: Perforation of the small bowel, status post exploratory laparotomy Transaminitis secondary to shock GENITOURINARY: ISRRAEL on CKD secondary to shock/VMN ENDOCRINE: History of hypothyroidism Type 2 diabetes mellitus, hemoglobin A1c 8.2 - Lantus 20 b.i.d. 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 Possible heparin-induced thrombocytopenia type 2 Acute DVT of right upper extremity - 2 unit of PRBC and platelet given since the surgery INFECTIOUS DISEASE: Sepsis with septic shock secondary to perforation of the small bowel - respiratory culture negative, peritoneal fluid culture demonstrated E coli, Klebsiella - continue IV vancomycin, IV meropenem and IV micafungin DIET: TPN DVT prophylax: Hold GI prophylaxis: Pantoprazole Bowel regimen: Code status: Full code LINES/DRAINS/ACCESS: ETT: Intubated on 01/14/25 IV access: Left IJ placed on 01/14/2025 Drips: Versed and fentanyl Perez catheter: Placed on 0 10/03 Continuing current management. Continuing with ventilation support. Continuing CPAP trial. Critical care spent for this case today is 37 minutes. This medical document was created using an electronic medical record system with [employer] direct computerized dictation system. Although this document has been carefully reviewed, there may still be some phonetic and typographical errors. These areas are purely typographical due to imperfections of the software programs, and do not reflect any compromise in the patient's medical care. Plan discussed with: Other (family) My Orders Orders - LEANN MORIN MD Procedure Category Date Status Time Complete Blood Count LAB 01/24/25 Verified 05:00 Complete Blood Count LAB 01/25/25 Verified 05:00 Date of Service: Jan 23, 2025 Billing Provider: LEANN MORIN MD Common Visit Codes: [id number] CARE 30-74 MIN LEANN MORIN MD Jan 23, 2025 22:19
[2025-01-23] MEDS: TPN*HIGH CONC* PER PHARMACY IV NR (22:31)
[2025-01-24] VITALS (107 sets, daily range): BP systolic 83–153; BP diastolic 43–80; PULSE 108–122; RESP 15–29; TEMP 97.9–99.7; O2SAT 96–99
[2025-01-24] MEDS: DEXMEDETOMIDINE HCL IN D5W 100 ML IV ONE (00:37)
[2025-01-24 04:40] LABS: Hemoglobin 7.9 g/dL (12.2-16.2); Nucleated Red Blood Cells % 0.2 %
[2025-01-24 04:42] LABS: Hematocrit 23.9 % (36.0-46.0); Mean Corpuscular Hemoglobin 29.7 pg (28.0-32.0); Mean Corpuscular Volume 89.8 fL (80.0-100.0)
[2025-01-24 04:44] LABS: Anion Gap 10 (5-15); BUN/Creatinine Ratio 58.8 (10.0-20.0); Bilirubin, Total 1.1 mg/dL (0.2-1.0); Calcium 8.9 mg/dL (8.7-10.4); Carbon Dioxide 29 mmol/L (20-31); Chloride 101 mmol/L (98-107); Magnesium 2.1 mg/dL (1.6-2.6); Potassium 3.7 mmol/L (3.5-5.1); Sodium 140 mmol/L (136-145); Total Protein 6.0 g/dL (5.7-8.2)
[2025-01-24 04:53] LABS: Alanine Aminotransferase 9 U/L (7-40); Albumin 2.9 g/dL (3.2-4.8); Alkaline Phosphatase 181 U/L (46-116); Blood Urea Nitrogen 67 mg/dL (9-23); Glucose 233 mg/dL (74-106)
[2025-01-24] MEDS: INSULIN LANTUS (GLARGINE) 1 /0.01ml (100units/ml) SC SCH (09:11)
--- NOTE | 2025-01-24 13:15 | DVHPN2 ---
Subjective Date Seen: Jan 24, 2025 Post op day Post op day: 11 Patient reports: No new complaints (Patient is intubated and sedated. Worsening thrombocytopenia today. Renal function is improving. Hematology oncology consult for severe thrombocytopenia. Transfusing platelets. Monitor for bleeding) Objective Vitals Vital Sign Date Time Temp Pulse Resp B/P (MAP) Pulse Ox O2 Delivery O2 Flow Rate FiO2 01/24/25 12:15 98.4 113 22 134/69 (90) 97 209.1 01/24/25 12:00 Mechanical Ventilator+ 30 30 Total Intake and Output 01/23/25 01/23/25 01/24/25 15:00 23:00 07:00 Intake Total 747.5 ml 450 ml 522.48 ml Output Total 1787 ml 1690 ml Balance 747.5 ml -1337 ml -1167.52 ml Medications Current Medications Medications Dose Ordered Sig/Isaura Route Start Time Stop Time Status Last Admin Dose Admin Pantoprazole Sodium 40 mg DAILY IV 01/13/25 10:00 01/24/25 10:20 40 MG Cefazolin Sodium 50 ml @ 100 mls/hr Q8HR IV 01/13/25 14:00 UNV Midazolam HCl 50 ml @ 1 mls/hr Q24H IV 01/13/25 13:30 01/22/25 06:34 5 MLS/HR Norepinephrine Bitartrate 250 ml @ 3.75 mls/hr Q24H IV 01/13/25 13:30 01/21/25 17:20 3.75 MLS/HR Vasopressin 20 units/Sodium Chloride 100 ml @ 9 mls/hr Q11H7M IV 01/13/25 18:45 UNV Amino Acids 0 ml @ 0 mls/hr PER PHARMACY IV 01/16/25 11:15 Potassium Chloride 100 ml @ 50 mls/hr Q2H IV 01/16/25 12:45 01/16/25 18:44 UNV Meropenem 50 ml @ 17 mls/hr Q12H IV 01/20/25 03:00 01/24/25 03:06 17 MLS/HR Vancomycin HCl 100 ml @ 100 mls/hr DAILY@1200 IV 01/20/25 12:00 UNV Micafungin Sodium 100 mg/Sodium Chloride 100 ml @ 100 mls/hr DAILY IV 01/21/25 10:00 01/24/25 10:20 100 MLS/HR Bumetanide 1 mg BIDD IV 01/21/25 18:00 01/24/25 06:10 1 MG Diagnostic Test (Pha) 1 strip Q6HR 01/21/25 12:00 01/24/25 11:54 1 STRIP Insulin Human Regular Q6HR SC 01/21/25 12:00 01/24/25 11:59 4 UNITS Dextrose 50 ml UD PRN IV 01/21/25 10:00 Fentanyl Citrate 250 ml @ 2.5 mls/hr Q24H IV 01/22/25 19:00 01/22/25 23:45 2.5 MLS/HR Fat Emulsion Intravenous 65 ml/ Sodium Chloride 10 meq/Sodium Acetate 10 meq/ Potassium Phosphate 22 meq/ Magnesium Sulfate 10 meq/ Multivitamins 10 ml/Chromium/ Copper/Manganese/ Zinc 1 ml/Insulin Human Regular 18 units/Amino Acids/ Dextrose/Purified Water 1,091.18 ml @ 45 mls/hr [id number] IV 01/23/25 22:00 01/24/25 21:59 01/23/25 22:31 45 MLS/HR Insulin Glargine 25 units BID SC 01/24/25 07:30 01/24/25 09:11 25 UNITS Fat Emulsion Intravenous 65 ml/ Potassium Phosphate 22 meq/ Magnesium Sulfate 10 meq/ Multivitamins 10 ml/Chromium/ Copper/Manganese/ Zinc 1 ml/Insulin Human Regular 17 units/Amino Acids/ Dextrose/Purified Water 1,083.67 ml @ 45 mls/hr Q24H5M IV 01/24/25 22:00 01/25/25 21:59 Labs and Microbiology Laboratory Tests 01/24/25 03:10 Test 01/24/25 03:10 Range/Units Serum Glucose 233 H 74-106 mg/dL Ass/Plan Labs and/or images reviewed: Labs reviewed by id Problem List Acute kidney injury superimposed Chronic Kidney Disease secondary hemodynamic mediated Acute respiratory failure, patient intubated on ventilator Acute perforation of the abdomen / bowel ischemia s/p exlap History of atrial fibrillation previously on anticoagulation 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 Bumex 1 mg IV b.i.d. K-Phos IV piggyback Insulin sliding scale We will continue to follow up Assessment/Plan 01/19/25 s/p Exploratory laparotomy, lysis of adhesions, extensive lavage, resection of perforated small bowel, enteroenterostomy. unchanged from yesterday abdomen soft, non distended, CARMEN drainage clear serous, no bowel activity, febrile, urine output ok, continues with thrombocytopenia, Plan: continue current treatment discussed with Dr. Collins 01/21/2025 s/p Exploratory laparotomy, lysis of adhesions, extensive lavage, resection of perforated small bowel, enteroenterostomy. abdomen soft, non distended, CARMEN drainage clear serous, no bowel activity, urine output ok, platelet count improved albumin low off pressors blood culture , gram negative rods Plan: continue meropenem antibiotics albumin x3 discussed with Dr. Collins 01/22/2025 s/p Exploratory laparotomy, lysis of adhesions, extensive lavage, resection of perforated small bowel, enteroenterostomy. abdomen soft, non distended, CARMEN drainage clear serous, no bowel activity, urine output ok, platelet count improved blood culture , gram positive rods labs reviewed Plan: continue with current treatment discussed with Dr. Collins 01/24/2025 s/p Exploratory laparotomy, lysis of adhesions, extensive lavage, resection of perforated small bowel, enteroenterostomy. abdomen soft, non distended, CARMEN drainage clear serous, no bowel activity, urine output ok, platelet count improved labs reviewed Plan: small bowel series discussed with Dr. Collins Prognosis: Poor Plan discussed with Dr. collins Visit Coding Surgery Date of Service if different f: Jan 24, 2025 Billing Provider: MELVA COLLINS MD Surgery Visit Codes: [id number] INP/OBS CARE(HIGH) CLAYTON POWERS NP Jan 24, 2025 13:15
[2025-01-24] MEDS: GASTROGRAFIN 120 ML SOL ONE (13:29)
[2025-01-24 16:15] LABS: INR 1.13 (0.9-1.15); Prothrombin Time 11.8 sec (9.3-11.8)
--- NOTE | 2025-01-24 18:21 | DVHPNRES ---
Progress Note Date Seen: Jan 24, 2025 Resident Creating Document: DG YOUNG RESIDENT Has the PT tested + for MRSA If YES, has PT been informed?: No Medical Necessity Reason Pt with a Central, PICC or Fol: Yes The following are medically ne: Central Line, Leach Catheter Reason for leach catheter: Strict I&O Subjective Review of Systems This is a 80-year-old female with past medical history of hypertension, AFib on Eliquis, type 2 diabetes mellitus, autoimmune disease, CKD, presented to the ED with a chief complaint of severe abdominal pain for last 2 4 days prior to this visit. The i.e. the patient has intermittent able minimal pain for last 4 month, getting worse that prompted this visit. mentioned recently this patient had a fall few weeks ago and chest x-ray demonstrated healed fracture on right 4th and 5th ribs. Before intubation the patient described the abdominal pain is sharp constant pain, diffuse in nature, 9/10, radiates to the back and associated with constipation. He denies fever, chills, shortness of breath, dizziness, nausea, vomiting, hematuria, dysuria, recent traveling, or any positive for Crohn's sick contact or any altered bowel habit. CT abdomen pelvis without IV contrast demonstrated free intraperitoneal likely from visceral perforation of the left abdominal small bowel loops, circumferential wall thickening of left abdominal small bowel loop with more focal local pool of gas adjacent to this thickened small bowel loop. Underwent emergent exploratory laparotomy, lysis of adhesions, extensive lab age, resection of perforated small bowel, enteroenterostomy. Patient was seen and examined on the bedside in ICU. Family was on the bedside. Status post exploratory laparotomy with enteroenterostomy, day 11. She is on mechanical ventilation with FiO2 30%, tidal volume 450 mL, peep 5 and respiratory rate 20. Platelet count 27 and H&H stable. Patient is running low- grade fever overnight and T-max is 99.0. reduced extremity edema and bilateral upper and lower extremity arterial scan demonstrated no hemodynamically significant stenosis. CARMEN drain is minimal serosanguineous and gastric drain is 100 mL. Surgery recommended small bowel series. Objective vital signs Vital Sign Date Time Temp Pulse Resp B/P (MAP) Pulse Ox O2 Delivery O2 Flow Rate FiO2 01/24/25 18:04 117 23 129/54 (79) 97 30 01/24/25 16:15 98.6 209.5 01/24/25 16:00 Mechanical Ventilator+ Total Intake and Output 01/23/25 01/23/25 01/24/25 15:00 23:00 07:00 Intake Total 747.5 ml 450 ml 522.48 ml Output Total 1787 ml 1690 ml Balance 747.5 ml -1337 ml -1167.52 ml medications Current Medications Medications Dose Ordered Sig/Isaura Route Start Time Stop Time Status Last Admin Dose Admin Pantoprazole Sodium 40 mg DAILY IV 01/13/25 10:00 01/24/25 10:20 40 MG Cefazolin Sodium 50 ml @ 100 mls/hr Q8HR IV 01/13/25 14:00 UNV Midazolam HCl 50 ml @ 1 mls/hr Q24H IV 01/13/25 13:30 01/22/25 06:34 5 MLS/HR Norepinephrine Bitartrate 250 ml @ 3.75 mls/hr Q24H IV 01/13/25 13:30 01/21/25 17:20 3.75 MLS/HR Vasopressin 20 units/Sodium Chloride 100 ml @ 9 mls/hr Q11H7M IV 01/13/25 18:45 UNV Amino Acids 0 ml @ 0 mls/hr PER PHARMACY IV 01/16/25 11:15 Potassium Chloride 100 ml @ 50 mls/hr Q2H IV 01/16/25 12:45 01/16/25 18:44 UNV Meropenem 50 ml @ 17 mls/hr Q12H IV 01/20/25 03:00 01/24/25 14:57 17 MLS/HR Vancomycin HCl 100 ml @ 100 mls/hr DAILY@1200 IV 01/20/25 12:00 UNV Micafungin Sodium 100 mg/Sodium Chloride 100 ml @ 100 mls/hr DAILY IV 01/21/25 10:00 01/24/25 10:20 100 MLS/HR Bumetanide 1 mg BIDD IV 01/21/25 18:00 01/24/25 17:42 1 MG Diagnostic Test (Pha) 1 strip Q6HR 01/21/25 12:00 01/24/25 17:45 1 STRIP Insulin Human Regular Q6HR SC 01/21/25 12:00 01/24/25 17:59 8 UNITS Dextrose 50 ml UD PRN IV 01/21/25 10:00 Fentanyl Citrate 250 ml @ 2.5 mls/hr Q24H IV 01/22/25 19:00 01/24/25 17:49 10 MLS/HR Fat Emulsion Intravenous 65 ml/ Sodium Chloride 10 meq/Sodium Acetate 10 meq/ Potassium Phosphate 22 meq/ Magnesium Sulfate 10 meq/ Multivitamins 10 ml/Chromium/ Copper/Manganese/ Zinc 1 ml/Insulin Human Regular 18 units/Amino Acids/ Dextrose/Purified Water 1,091.18 ml @ 45 mls/hr [id number] IV 01/23/25 22:00 01/24/25 21:59 01/23/25 22:31 45 MLS/HR Insulin Glargine 25 units BID SC 01/24/25 07:30 01/24/25 09:11 25 UNITS Fat Emulsion Intravenous 65 ml/ Potassium Phosphate 22 meq/ Magnesium Sulfate 10 meq/ Multivitamins 10 ml/Chromium/ Copper/Manganese/ Zinc 1 ml/Insulin Human Regular 17 units/Amino Acids/ Dextrose/Purified Water 1,083.67 ml @ 45 mls/hr Q24H5M IV 01/24/25 22:00 01/25/25 21:59 Examination Examination General: RASS -3, afebrile, mucosae are moist Cardiovascular: Normal S1 and S2. No murmurs, gallops or rubs Respiratory: Mechanically assisted ventilation, equal bilateral airway entree. Decreased breath sounds on both sides lower lung field Abdomen: Soft, nontender, no organomegaly, no bowel sounds, surgical scar on the midline, no sign of erythema or oozing from the incision site MSK/skin: hemorrhagic blisters in bilateral upper extremity and oozing from this, skin is mottled more pronounced in hands and feet bilaterally, Mobilization of limbs cannot be evaluated. Skin is dry and warm. Neurological: Orientation cannot be assessed. No apparent motor no sensitive deficits. Pupils are isocoric and reactive laboratory and microbiology Laboratory Tests 01/24/25 03:10 Test 01/24/25 03:10 Range/Units Serum Glucose 233 H 74-106 mg/dL Microbiology Date/Time Source Procedure Growth Status 01/20/25 00:57 Blood Blood Culture - Preliminary NO GROWTH AFTER 72 HOURS OF INCUBATION. Resulted 01/13/25 17:10 Nose MRSA Screen - Final Complete 01/13/25 13:05 Sputum Gram Stain - Final Complete 01/13/25 13:05 Sputum Respiratory Culture - Final Complete 01/13/25 11:42 Peritoneal Fluid Gram Stain - Final Complete 01/13/25 11:42 Peritoneal Fluid Anaerobic Culture - Final Complete 01/13/25 11:42 Aerobic Culture - Final Escherichia coli Klebsiella pneumoniae Complete Labs and/or images reviewed: Labs reviewed by me, Image(s) reviewed by me Problem List/Assessment/Plan Problem List/Assessment/Plan Assessment and plan: NEURO: Acute metabolic encephalopathy secondary to acute hypoxic respiratory failure Status post intubation RASS score: -3 CARDIOVASCULAR: Septic shock secondary to perforation of the hollow viscus Paroxysmal atrial fibrillation with secondary hypercoagulable state Chronic diastolic heart failure with preserved ejection fraction - echo demonstrated EF 65%, mild LV diastolic dysfunction - Chest xray demonstrated bibasilar atelectasis - [id number] score more than 5 - hold Lovenox because of severe thrombocytopenia PULMONARY: Acute hypoxic respiratory failure secondary to bilateral pleural effusion Volume overload due to chronic HFpEF - chest x-ray demonstrated bilateral hazy opacities GASTROINTESTINAL: Perforation of the small bowel, status post exploratory laparotomy Transaminitis secondary to shock - Surgery recommended small-bowel series GENITOURINARY: ISRRAEL on CKD secondary to shock/VMN ENDOCRINE: History of hypothyroidism Type 2 diabetes mellitus, hemoglobin A1c 8.2 - Lantus 25 b.i.d. 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 Possible heparin-induced thrombocytopenia type 2 Acute DVT of right upper extremity - 2 unit of PRBC and platelet given since the surgery INFECTIOUS DISEASE: Sepsis with septic shock secondary to perforation of the small bowel - respiratory culture negative, peritoneal fluid culture demonstrated E coli, Klebsiella - continue IV meropenem and IV micafungin DIET: TPN DVT prophylax: Hold GI prophylaxis: Pantoprazole Bowel regimen: Code status: Full code LINES/DRAINS/ACCESS: ETT: Intubated on 01/14/25 IV access: Left IJ placed on 01/14/2025 Drips: Versed and fentanyl Leach catheter: Placed on 0 9 /0 10/03 DISPOSITION: ICU Patient's status discussed with Son, brother and sister Critical care time spent more than 81 minutes, including patient care, chart review, and updating the family. Excluding any procedures. Case discussed with Dr. Self Plan discussed with: Other (RN) My Orders My Orders Orders - DG YOUNG Procedure Category Date Status Time Insulin Lantus PHA 01/24/25 In Process (Glargine) (Lantus) 07:30 * Picc Line Consult CONS 01/24/25 Transmitted 14:17 D/C Triple Lumen ORDERS 01/24/25 Transmitted 14:17 Dietary Evaluation Review Comments: Nutrition Recommendation: 1) TPN to meet at least 75% estimated needs within 7 days 2) Monitor NPO status, lab values, wt trend, I/O Expected Outcomes/Goals: To meet >75% estimated needs Lab values to improve Fu 2-3 days CC Plasma Assessment Blood Product Administration S: [id number] Date of Service: Jan 24, 2025 Billing Provider: ZBIGNIEW SELF MD Common Visit Codes: 59190-ROTWRDDO CARE 30-74 MIN, 66359-DLOWZUBO CARE-EACH +30MIN DG YOUNG Jan 24, 2025 18:21 ZBIGNIEW SELF MD Jan 25, 2025 14:29
--- NOTE | 2025-01-24 18:49 | DVHPN2 ---
Progress Note Date Seen: Jan 24, 2025 Has the PT tested + for MRSA If YES, has PT been informed?: No Medical Necessity Reason Pt with a Central, PICC or Fol: Yes The following are medically ne: Central Line, Leach Catheter Reason for leach catheter: Strict I&O Subjective Patient reports: Other (intubated) Review of Systems: Deferred Objective vital signs Vital Sign Date Time Temp Pulse Resp B/P (MAP) Pulse Ox O2 Delivery O2 Flow Rate FiO2 01/24/25 18:04 117 23 129/54 (79) 97 30 01/24/25 18:00 Mechanical Ventilator+ 01/24/25 16:15 98.6 209.5 Total Intake and Output 01/23/25 01/23/25 01/24/25 15:00 23:00 07:00 Intake Total 747.5 ml 450 ml 522.48 ml Output Total 1787 ml 1690 ml Balance 747.5 ml -1337 ml -1167.52 ml medications Current Medications Medications Dose Ordered Sig/Isaura Route Start Time Stop Time Status Last Admin Dose Admin Pantoprazole Sodium 40 mg DAILY IV 01/13/25 10:00 01/24/25 10:20 40 MG Cefazolin Sodium 50 ml @ 100 mls/hr Q8HR IV 01/13/25 14:00 UNV Midazolam HCl 50 ml @ 1 mls/hr Q24H IV 01/13/25 13:30 01/22/25 06:34 5 MLS/HR Norepinephrine Bitartrate 250 ml @ 3.75 mls/hr Q24H IV 01/13/25 13:30 01/21/25 17:20 3.75 MLS/HR Vasopressin 20 units/Sodium Chloride 100 ml @ 9 mls/hr Q11H7M IV 01/13/25 18:45 UNV Amino Acids 0 ml @ 0 mls/hr PER PHARMACY IV 01/16/25 11:15 Potassium Chloride 100 ml @ 50 mls/hr Q2H IV 01/16/25 12:45 01/16/25 18:44 UNV Meropenem 50 ml @ 17 mls/hr Q12H IV 01/20/25 03:00 01/24/25 14:57 17 MLS/HR Vancomycin HCl 100 ml @ 100 mls/hr DAILY@1200 IV 01/20/25 12:00 UNV Micafungin Sodium 100 mg/Sodium Chloride 100 ml @ 100 mls/hr DAILY IV 01/21/25 10:00 01/24/25 10:20 100 MLS/HR Bumetanide 1 mg BIDD IV 01/21/25 18:00 01/24/25 17:42 1 MG Diagnostic Test (Pha) 1 strip Q6HR 01/21/25 12:00 01/24/25 17:45 1 STRIP Insulin Human Regular Q6HR SC 01/21/25 12:00 01/24/25 17:59 8 UNITS Dextrose 50 ml UD PRN IV 01/21/25 10:00 Fentanyl Citrate 250 ml @ 2.5 mls/hr Q24H IV 01/22/25 19:00 01/24/25 17:49 10 MLS/HR Fat Emulsion Intravenous 65 ml/ Sodium Chloride 10 meq/Sodium Acetate 10 meq/ Potassium Phosphate 22 meq/ Magnesium Sulfate 10 meq/ Multivitamins 10 ml/Chromium/ Copper/Manganese/ Zinc 1 ml/Insulin Human Regular 18 units/Amino Acids/ Dextrose/Purified Water 1,091.18 ml @ 45 mls/hr [id number] IV 01/23/25 22:00 01/24/25 21:59 01/23/25 22:31 45 MLS/HR Insulin Glargine 25 units BID SC 01/24/25 07:30 01/24/25 09:11 25 UNITS Fat Emulsion Intravenous 65 ml/ Potassium Phosphate 22 meq/ Magnesium Sulfate 10 meq/ Multivitamins 10 ml/Chromium/ Copper/Manganese/ Zinc 1 ml/Insulin Human Regular 17 units/Amino Acids/ Dextrose/Purified Water 1,083.67 ml @ 45 mls/hr Q24H5M IV 01/24/25 22:00 01/25/25 21:59 Examination: GENERAL:Abnormal, MSK:Abnormal, NEURO:Abnormal laboratory and microbiology Laboratory Tests 01/24/25 03:10 Test 01/24/25 03:10 Range/Units Serum Glucose 233 H 74-106 mg/dL Microbiology Date/Time Source Procedure Growth Status 01/20/25 00:57 Blood Blood Culture - Preliminary NO GROWTH AFTER 72 HOURS OF INCUBATION. Resulted 01/13/25 17:10 Nose MRSA Screen - Final Complete 01/13/25 13:05 Sputum Gram Stain - Final Complete 01/13/25 13:05 Sputum Respiratory Culture - Final Complete 01/13/25 11:42 Peritoneal Fluid Gram Stain - Final Complete 01/13/25 11:42 Peritoneal Fluid Anaerobic Culture - Final Complete 01/13/25 11:42 Aerobic Culture - Final Escherichia coli Klebsiella pneumoniae Complete Problem List/Assessment/Plan Problem List/Assessment/Plan Acute kidney injury superimposed Chronic Kidney Disease secondary hemodynamic mediated Acute respiratory failure, patient intubated on ventilator Acute perforation of the abdomen / bowel ischemia s/p exlap History of atrial fibrillation previously on anticoagulation 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 , RA + Diabetes mellitus type 2 Hyperglycemia Hypophosphatemia hyperkalemia-----> hypokalemia Dropping hemoglobin Anemia due to blood loss Thrombocytopenia, improving Chest x-ray consistent with pulmonary edema recs consider holding vancomycin if not necessary better renal function Plan discussed with: Other Dietary Evaluation Review Comments: Nutrition Recommendation: 1) TPN to meet at least 75% estimated needs within 7 days 2) Monitor NPO status, lab values, wt trend, I/O Expected Outcomes/Goals: To meet >75% estimated needs Lab values to improve Fu 2-3 days CC Plasma Assessment Blood Product Administration S: [id number] RAHEL MONTGOMERY MD Jan 24, 2025 18:49
--- NOTE | 2025-01-24 21:26 | DVH ---
Procedure: XY SMALL BOWEL SERIES-W GASTROGRA Reason for study/Clinical History: R/O obstruction Comparison Study: None Technique: Single contrast small bowel series performed. FINDINGS/IMPRESSION: Postop changes of the abdomen are noted with skin closure lilly in the midline. 2 surgical drains a re noted in the abdomen and pelvis. Enteric tube is in the stomach. Initial senior catering sales manager view of the abdomen and pelvis appears demonstrates no acute process. Contrast is identified within the colon by 4 hours. This represents a nonobstructing small bowel tra nsit time.
[2025-01-24] MEDS: TPN*HIGH CONC* PER PHARMACY IV NR (21:51)
[2025-01-25] VITALS (109 sets, daily range): BP systolic 97–149; BP diastolic 43–88; PULSE 86–126; RESP 12–28; TEMP 97–99.7; O2SAT 88–100
[2025-01-25 03:44] LABS: Hematocrit 23.8 % (36.0-46.0); Hemoglobin 7.7 g/dL (12.2-16.2); Mean Corpuscular Hemoglobin 29.1 pg (28.0-32.0); Mean Corpuscular Volume 89.7 fL (80.0-100.0); Nucleated Red Blood Cells % 0.6 %
[2025-01-25 03:59] LABS: Alanine Aminotransferase 19 U/L (7-40); Anion Gap 11 (5-15); BUN/Creatinine Ratio 62.0 (10.0-20.0); Calcium 9.3 mg/dL (8.7-10.4); Chloride 101 mmol/L (98-107); Magnesium 2.2 mg/dL (1.6-2.6); Sodium 144 mmol/L (136-145); Total Protein 6.3 g/dL (5.7-8.2)
[2025-01-25 04:00] LABS: Bilirubin, Total 1.1 mg/dL (0.2-1.0)
[2025-01-25 04:02] LABS: Albumin 2.9 g/dL (3.2-4.8); Alkaline Phosphatase 366 U/L (46-116); Blood Urea Nitrogen 75 mg/dL (9-23); Carbon Dioxide 32 mmol/L (20-31); Glucose 191 mg/dL (74-106); Potassium 3.1 mmol/L (3.5-5.1)
[2025-01-25] MEDS: POTASSIUM CHL 20MEQ/100ML 100 ML IV SCH (05:16)
--- NOTE | 2025-01-25 05:58 | DVH ---
CHEST RADIOGRAPH Indication: Mechanical ventilation Technique: Single frontal view of the chest was obtained Comparison: XY CHEST PORTABLE on DOS: 01/23/25 FINDINGS: Lines and Tubes: The endotracheal tube terminates 5.4 cm above the vijay. Left central venous daryl ter appears to terminate in the azygous vein. The enteric tube terminates in the stomach. Lungs: Bibasilar airspace disease. Pleura: Bilateral pleural effusions, left greater than right similar to prior study. No pneumothorax. Cardiomediastinal contours: Unremarkable Bones: No acute osseous abnormality. IMPRESSION: 1. Left central venous catheter appears to terminate in the azygous vein. Recommend repositioning. 2. Bibasilar airspace disease., not significantly changed. 3. Bilateral pleural effusions similar to prior study.
[2025-01-25 07:33] LABS: Base Excess 5.5 mmol/L (-2.0-3.0)
--- NOTE | 2025-01-25 09:12 | DVHPN2 ---
Progress Note Date Seen: Jan 25, 2025 Has the PT tested + for MRSA If YES, has PT been informed?: No Medical Necessity Reason Pt with a Central, PICC or Fol: Yes The following are medically ne: Central Line, Leach Catheter Reason for leach catheter: Strict I&O Objective vital signs Vital Sign Date Time Temp Pulse Resp B/P (MAP) Pulse Ox O2 Delivery O2 Flow Rate FiO2 01/25/25 08:32 111 14 141/82 98 30 01/25/25 08:00 Mechanical Ventilator+ 01/25/25 06:45 97.2 207.0 Total Intake and Output 01/24/25 01/24/25 01/25/25 15:00 23:00 07:00 Intake Total 531.32 ml 490 ml 680 ml Output Total 1490 ml 1405 ml Balance 531.32 ml -1000 ml -725 ml medications Current Medications Medications Dose Ordered Sig/Isaura Route Start Time Stop Time Status Last Admin Dose Admin Pantoprazole Sodium 40 mg DAILY IV 01/13/25 10:00 01/24/25 10:20 40 MG Cefazolin Sodium 50 ml @ 100 mls/hr Q8HR IV 01/13/25 14:00 UNV Midazolam HCl 50 ml @ 1 mls/hr Q24H IV 01/13/25 13:30 01/22/25 06:34 5 MLS/HR Norepinephrine Bitartrate 250 ml @ 3.75 mls/hr Q24H IV 01/13/25 13:30 01/21/25 17:20 3.75 MLS/HR Vasopressin 20 units/Sodium Chloride 100 ml @ 9 mls/hr Q11H7M IV 01/13/25 18:45 UNV Amino Acids 0 ml @ 0 mls/hr PER PHARMACY IV 01/16/25 11:15 Potassium Chloride 100 ml @ 50 mls/hr Q2H IV 01/16/25 12:45 01/16/25 18:44 UNV Meropenem 50 ml @ 17 mls/hr Q12H IV 01/20/25 03:00 01/25/25 02:47 17 MLS/HR Vancomycin HCl 100 ml @ 100 mls/hr DAILY@1200 IV 01/20/25 12:00 UNV Micafungin Sodium 100 mg/Sodium Chloride 100 ml @ 100 mls/hr DAILY IV 01/21/25 10:00 01/24/25 10:20 100 MLS/HR Bumetanide 1 mg BIDD IV 01/21/25 18:00 01/25/25 06:17 1 MG Diagnostic Test (Pha) 1 strip Q6HR 01/21/25 12:00 01/25/25 05:49 1 STRIP Insulin Human Regular Q6HR SC 01/21/25 12:00 01/25/25 05:44 2 UNITS Dextrose 50 ml UD PRN IV 01/21/25 10:00 Fentanyl Citrate 250 ml @ 2.5 mls/hr Q24H IV 01/22/25 19:00 01/24/25 17:49 10 MLS/HR Insulin Glargine 25 units BID SC 01/24/25 07:30 01/24/25 21:51 25 UNITS Fat Emulsion Intravenous 65 ml/ Potassium Phosphate 22 meq/ Magnesium Sulfate 10 meq/ Multivitamins 10 ml/Chromium/ Copper/Manganese/ Zinc 1 ml/Insulin Human Regular 17 units/Amino Acids/ Dextrose/Purified Water 1,083.67 ml @ 45 mls/hr Q24H5M IV 01/24/25 22:00 01/25/25 21:59 01/24/25 21:51 45 MLS/HR laboratory and microbiology Laboratory Tests 01/25/25 00:24 Test 01/25/25 00:24 Range/Units Serum Glucose 191 H 74-106 mg/dL Problem List/Assessment/Plan Problem List/Assessment/Plan 01/14/25 afebrile, low dose BP support, received transfusion, I believe her decreased hematocrit is due to hemodilution. abdomen non distended, soft, wound clean and well approximated, drainage serous . remains intubated and sedated 01/16/25 ALKALOSIS, ABDOMEN NON DISTENDED, SOFT, DRAINAGE SEROUS, WOUND CLEAN AND WELL APPROXIMATED 01/17/25 improved, thrombocytopenia possibly made worse by Fluconazole,will DC, abdomen non distended, wound well approximated without infection, CARMEN drainage serous, CVP 6, good urine output. 01/18/25 abg reviewed, ,abdomen soft, non distended, CARMEN drainage clear serous, no bowel activity, febrile, urine output ok, continues with thrombocytopenia,pt and inr slightly elevated. prognosis grave. 01/20/25remains sedated on ventilator, abdomen soft, non distended, faint bowel sounds auscultated by nurse, wound clean and well approximated, CARMEN drainage clear serous. continues with thrombocytopenia, still behind on intravascular volume( BUN and Creatinine elevated), i would give more IV fluids and DC vancomycin. 01/25/25 afebrile, normotensive, wound clean and well approximated, CARMEN drainage serous, abdomen non distended, soft, gastrografin small bowel series shows non obstructed GI tract and no evidence of extravasation. It is OK to initiate enteric feedings. Plan discussed with: Other Dietary Evaluation Review Comments: Nutrition Recommendation: 1) TPN to meet at least 75% estimated needs within 7 days 2) Monitor NPO status, lab values, wt trend, I/O Expected Outcomes/Goals: To meet >75% estimated needs Lab values to improve Fu 2-3 days MELVA RAMESH MD Jan 25, 2025 09:12
[2025-01-25] MEDS: Glucerna 1.2 Cal 1Liter BOTTLE GT SCH (13:41)
--- NOTE | 2025-01-25 13:52 | DVH ---
CHEST RADIOGRAPH Indication: ETT ADVANCED. CHECK POSITION Technique: Single frontal view of the chest was obtained Comparison: XY CHEST PORTABLE on DOS: 01/25/25, XY CHEST PORTABLE on DOS: 01/23/25, XY CHEST PORTABLE o n DOS: 01/23/25, XY CHEST PORTABLE on DOS: 01/22/25, XY CHEST PORTABLE on DOS: 01/21/25, XY CHEST PORTAB LE on DOS: 01/25/25 FINDINGS: Lines and Tubes: The endotracheal tube terminates 5.4 cm above the vijay. Left central venous daryl ter appears to terminate in the azygous vein. The enteric tube terminates in the stomach. Lungs: Bibasilar airspace disease. Pleura: Bilateral pleural effusions, left greater than right similar to prior study. No pneumothorax. Cardiomediastinal contours: Unremarkable Bones: No acute osseous abnormality. IMPRESSION: 1. ET tube 1.4 vijay. Retract by 3cm.
--- NOTE | 2025-01-25 16:28 | DVHPN2 ---
Progress Note Date Seen: Jan 25, 2025 Has the PT tested + for MRSA If YES, has PT been informed?: No Medical Necessity Reason Pt with a Central, PICC or Fol: Yes The following are medically ne: Central Line, Leach Catheter Reason for leach catheter: Strict I&O Subjective Patient reports: Other (intubated) Review of Systems: Deferred Objective vital signs Vital Sign Date Time Temp Pulse Resp B/P (MAP) Pulse Ox O2 Delivery O2 Flow Rate FiO2 01/25/25 14:30 98.2 114 20 113/62 (79) 100 208.8 01/25/25 14:00 Mechanical Ventilator+ 30 30 Total Intake and Output 01/24/25 01/24/25 01/25/25 15:00 23:00 07:00 Intake Total 531.32 ml 490 ml 680 ml Output Total 1490 ml 1405 ml Balance 531.32 ml -1000 ml -725 ml medications Current Medications Medications Dose Ordered Sig/Isaura Route Start Time Stop Time Status Last Admin Dose Admin Pantoprazole Sodium 40 mg DAILY IV 01/13/25 10:00 01/25/25 10:40 40 MG Cefazolin Sodium 50 ml @ 100 mls/hr Q8HR IV 01/13/25 14:00 UNV Midazolam HCl 50 ml @ 1 mls/hr Q24H IV 01/13/25 13:30 01/22/25 06:34 5 MLS/HR Norepinephrine Bitartrate 250 ml @ 3.75 mls/hr Q24H IV 01/13/25 13:30 01/21/25 17:20 3.75 MLS/HR Vasopressin 20 units/Sodium Chloride 100 ml @ 9 mls/hr Q11H7M IV 01/13/25 18:45 UNV Potassium Chloride 100 ml @ 50 mls/hr Q2H IV 01/16/25 12:45 01/16/25 18:44 UNV Meropenem 50 ml @ 17 mls/hr Q12H IV 01/20/25 03:00 01/25/25 15:29 17 MLS/HR Vancomycin HCl 100 ml @ 100 mls/hr DAILY@1200 IV 01/20/25 12:00 UNV Micafungin Sodium 100 mg/Sodium Chloride 100 ml @ 100 mls/hr DAILY IV 01/21/25 10:00 01/25/25 10:40 100 MLS/HR Diagnostic Test (Pha) 1 strip Q6HR 01/21/25 12:00 01/25/25 11:48 1 STRIP Insulin Human Regular Q6HR SC 01/21/25 12:00 01/25/25 11:54 8 UNITS Dextrose 50 ml UD PRN IV 01/21/25 10:00 Fentanyl Citrate 250 ml @ 2.5 mls/hr Q24H IV 01/22/25 19:00 01/25/25 14:42 20 MLS/HR Insulin Glargine 25 units BID SC 01/24/25 07:30 01/25/25 10:45 25 UNITS Enteral Nutritional Formula 1,000 ml 20ML/HR GT 01/25/25 11:00 01/25/25 13:41 1,000 ML Bumetanide 1 mg DAILY IV 01/26/25 10:00 Examination: GENERAL:Abnormal, LUNGS:Abnormal, MSK:Abnormal, NEURO:Abnormal laboratory and microbiology Laboratory Tests 01/25/25 00:24 Test 01/25/25 00:24 Range/Units Serum Glucose 191 H 74-106 mg/dL Microbiology Date/Time Source Procedure Growth Status 01/20/25 00:57 Blood Blood Culture - Final NO GROWTH AFTER 5 DAYS OF INCUBATION. Complete 01/13/25 17:10 Nose MRSA Screen - Final Complete 01/13/25 13:05 Sputum Gram Stain - Final Complete 01/13/25 13:05 Sputum Respiratory Culture - Final Complete 01/13/25 11:42 Peritoneal Fluid Gram Stain - Final Complete 01/13/25 11:42 Peritoneal Fluid Anaerobic Culture - Final Complete 01/13/25 11:42 Aerobic Culture - Final Escherichia coli Klebsiella pneumoniae Complete Problem List/Assessment/Plan Problem List/Assessment/Plan Acute kidney injury superimposed Chronic Kidney Disease secondary hemodynamic mediated Acute respiratory failure, patient intubated on ventilator Acute perforation of the abdomen / bowel ischemia s/p exlap History of atrial fibrillation previously on anticoagulation 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 , RA + Diabetes mellitus type 2 Hyperglycemia Hypophosphatemia hyperkalemia-----> hypokalemia Dropping hemoglobin Anemia due to blood loss Thrombocytopenia, improving Chest x-ray consistent with pulmonary edema recs on bumex daily iv non oliguric stable renal function Plan discussed with: Other Dietary Evaluation Review Comments: Nutrition Recommendation: 1) TPN to meet at least 75% estimated needs within 7 days 2) Monitor NPO status, lab values, wt trend, I/O Expected Outcomes/Goals: To meet >75% estimated needs Lab values to improve Fu 2-3 days CC Plasma Assessment Blood Product Administration S: [id number] RAHEL MONTGOMERY MD Jan 25, 2025 16:28
--- NOTE | 2025-01-25 18:17 | DVHPNRES ---
Progress Note Date Seen: Jan 25, 2025 Resident Creating Document: DG YOUNG RESIDENT Has the PT tested + for MRSA If YES, has PT been informed?: No Medical Necessity Reason Pt with a Central, PICC or Fol: Yes The following are medically ne: Central Line, Leach Catheter Reason for leach catheter: Strict I&O Subjective Review of Systems This is a 80-year-old female with past medical history of hypertension, AFib on Eliquis, type 2 diabetes mellitus, autoimmune disease, CKD, presented to the ED with a chief complaint of severe abdominal pain for last 2 4 days prior to this visit. The i.e. the patient has intermittent able minimal pain for last 4 month, getting worse that prompted this visit. mentioned recently this patient had a fall few weeks ago and chest x-ray demonstrated healed fracture on right 4th and 5th ribs. Before intubation the patient described the abdominal pain is sharp constant pain, diffuse in nature, 9/10, radiates to the back and associated with constipation. He denies fever, chills, shortness of breath, dizziness, nausea, vomiting, hematuria, dysuria, recent traveling, or any positive for Crohn's sick contact or any altered bowel habit. CT abdomen pelvis without IV contrast demonstrated free intraperitoneal likely from visceral perforation of the left abdominal small bowel loops, circumferential wall thickening of left abdominal small bowel loop with more focal local pool of gas adjacent to this thickened small bowel loop. Underwent emergent exploratory laparotomy, lysis of adhesions, extensive lab age, resection of perforated small bowel, enteroenterostomy. Patient was seen and examined on the bedside in ICU. Family was on the bedside. Status post exploratory laparotomy with enteroenterostomy, day 12. She is on mechanical ventilation with FiO2 30%, tidal volume 450 mL, peep 5 and respiratory rate 20. Patient is running low-grade fever overnight and T-max is 99.5. Reduced extremity edema and bilateral upper and lower extremity arterial scan demonstrated no hemodynamically significant stenosis. CARMEN drain is minimal serosanguineous and gastric drain is 100 mL. Small bowel series showed non obstructing small bowel transmit time. started trickle feeding at 20 ml/hr today. CPAP trial tomorrow. Objective vital signs Vital Sign Date Time Temp Pulse Resp B/P (MAP) Pulse Ox O2 Delivery O2 Flow Rate FiO2 01/25/25 17:00 99.0 120 22 109/59 (76) 98 210.2 01/25/25 16:02 30 01/25/25 16:00 Mechanical Ventilator+ Total Intake and Output 01/24/25 01/24/25 01/25/25 15:00 23:00 07:00 Intake Total 531.32 ml 490 ml 680 ml Output Total 1490 ml 1405 ml Balance 531.32 ml -1000 ml -725 ml medications Current Medications Medications Dose Ordered Sig/Isaura Route Start Time Stop Time Status Last Admin Dose Admin Pantoprazole Sodium 40 mg DAILY IV 01/13/25 10:00 01/25/25 10:40 40 MG Cefazolin Sodium 50 ml @ 100 mls/hr Q8HR IV 01/13/25 14:00 UNV Midazolam HCl 50 ml @ 1 mls/hr Q24H IV 01/13/25 13:30 01/22/25 06:34 5 MLS/HR Norepinephrine Bitartrate 250 ml @ 3.75 mls/hr Q24H IV 01/13/25 13:30 01/21/25 17:20 3.75 MLS/HR Vasopressin 20 units/Sodium Chloride 100 ml @ 9 mls/hr Q11H7M IV 01/13/25 18:45 UNV Potassium Chloride 100 ml @ 50 mls/hr Q2H IV 01/16/25 12:45 01/16/25 18:44 UNV Meropenem 50 ml @ 17 mls/hr Q12H IV 01/20/25 03:00 01/25/25 15:29 17 MLS/HR Vancomycin HCl 100 ml @ 100 mls/hr DAILY@1200 IV 01/20/25 12:00 UNV Micafungin Sodium 100 mg/Sodium Chloride 100 ml @ 100 mls/hr DAILY IV 01/21/25 10:00 01/25/25 10:40 100 MLS/HR Diagnostic Test (Pha) 1 strip Q6HR 01/21/25 12:00 01/25/25 17:59 1 STRIP Insulin Human Regular Q6HR SC 01/21/25 12:00 01/25/25 18:07 2 UNITS Dextrose 50 ml UD PRN IV 01/21/25 10:00 Fentanyl Citrate 250 ml @ 2.5 mls/hr Q24H IV 01/22/25 19:00 01/25/25 14:42 20 MLS/HR Insulin Glargine 25 units BID SC 01/24/25 07:30 01/25/25 10:45 25 UNITS Enteral Nutritional Formula 1,000 ml 20ML/HR GT 01/25/25 11:00 01/25/25 13:41 1,000 ML Bumetanide 1 mg DAILY IV 01/26/25 10:00 Examination Examination General: RASS -3, afebrile, mucosae are moist Cardiovascular: Normal S1 and S2. No murmurs, gallops or rubs Respiratory: Mechanically assisted ventilation, equal bilateral airway entree. Decreased breath sounds on both sides lower lung field Abdomen: Soft, nontender, no organomegaly, hypoactive bowel sounds, surgical scar on the midline, no sign of erythema or oozing from the incision site MSK/skin: hemorrhagic blisters in bilateral upper extremity and oozing from this, skin is mottled more pronounced in hands and feet bilaterally, Mobilization of limbs cannot be evaluated. Skin is dry and warm. Neurological: Orientation cannot be assessed. No apparent motor no sensitive deficits. Pupils are isocoric and reactive laboratory and microbiology Laboratory Tests 01/25/25 00:24 Test 01/25/25 00:24 Range/Units Serum Glucose 191 H 74-106 mg/dL Microbiology Date/Time Source Procedure Growth Status 01/20/25 00:57 Blood Blood Culture - Final NO GROWTH AFTER 5 DAYS OF INCUBATION. Complete 01/13/25 17:10 Nose MRSA Screen - Final Complete 01/13/25 13:05 Sputum Gram Stain - Final Complete 01/13/25 13:05 Sputum Respiratory Culture - Final Complete 01/13/25 11:42 Peritoneal Fluid Gram Stain - Final Complete 01/13/25 11:42 Peritoneal Fluid Anaerobic Culture - Final Complete 01/13/25 11:42 Aerobic Culture - Final Escherichia coli Klebsiella pneumoniae Complete Labs and/or images reviewed: Labs reviewed by me, Image(s) reviewed by me Problem List/Assessment/Plan Problem List/Assessment/Plan Assessment and plan: NEURO: Acute metabolic encephalopathy secondary to acute hypoxic respiratory failure Status post intubation RASS score: -3 CARDIOVASCULAR: Septic shock secondary to perforation of the hollow viscus Paroxysmal atrial fibrillation with secondary hypercoagulable state Chronic diastolic heart failure with preserved ejection fraction - echo demonstrated EF 65%, mild LV diastolic dysfunction - Chest xray demonstrated bibasilar atelectasis - [id number] score more than 5 - hold Lovenox because of severe thrombocytopenia PULMONARY: Acute hypoxic respiratory failure secondary to bilateral pleural effusion Volume overload due to chronic HFpEF - chest x-ray demonstrated bilateral hazy opacities GASTROINTESTINAL: Perforation of the small bowel, status post exploratory laparotomy Transaminitis secondary to shock - Small-bowel series showed non obstructing bowel gas pattern. GENITOURINARY: ISRAREL on CKD secondary to shock/VMN ENDOCRINE: History of hypothyroidism Type 2 diabetes mellitus, hemoglobin A1c 8.2 - Lantus 25 b.i.d. 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 Possible heparin-induced thrombocytopenia type 2 Acute DVT of right upper extremity - 2 unit of PRBC and platelet given since the surgery INFECTIOUS DISEASE: Sepsis with septic shock secondary to perforation of the small bowel - respiratory culture negative, peritoneal fluid culture demonstrated E coli, Klebsiella - continue IV meropenem and IV micafungin DIET: Tube feeding DVT prophylax: Hold GI prophylaxis: Pantoprazole Bowel regimen: Code status: Full code LINES/DRAINS/ACCESS: ETT: Intubated on 01/14/25 IV access: Left IJ placed on 01/14/2025 Drips: Versed and fentanyl Leach catheter: Placed on 0 10/03 DISPOSITION: ICU Patient's status discussed with Son, brother and sister Critical care time spent more than 81 minutes, including patient care, chart review, and updating the family. Excluding any procedures. CPAP trial tomorrow Case discussed with Dr. Self Plan discussed with: Son (RN), Other My Orders My Orders Orders - DG YOUNG RESIDENT Procedure Category Date Status Time Chest Portable XY 01/25/25 Resulted 04:00 Abg W/ Co-Ox RT 01/25/25 Logged 04:00 Respiratory Misc. RT 01/25/25 Transmitted Order 10:06 Nutritional PHA 01/25/25 In Process Supplements (Glucerna 11:00 Chest Xray 1 View XY 01/25/25 Resulted 12:44 Communication Order ORDERS 01/25/25 Transmitted 13:44 Dietary Evaluation Review Comments: Nutrition Recommendation: 1) TPN to meet at least 75% estimated needs within 7 days 2) Monitor NPO status, lab values, wt trend, I/O Expected Outcomes/Goals: To meet >75% estimated needs Lab values to improve Fu 2-3 days CC Plasma Assessment Blood Product Administration S: [id number] Date of Service: Jan 25, 2025 Billing Provider: ZBIGNIEW SELF MD Common Visit Codes: 68945-[id number] CARE 30-74 MIN, [id number]-[id number] CARE-EACH +30MIN DG YOUNG RESIDENT Jan 25, 2025 18:17 ZBIGNIEW SELF MD Jan 26, 2025 14:34
[2025-01-25] MEDS ORDERED: TPN*HIGH CONC* PER PHARMACY IV NR (22:00)
[2025-01-26] VITALS (108 sets, daily range): BP systolic 104–153; BP diastolic 37–76; PULSE 104–125; RESP 15–33; TEMP 97.3–100; O2SAT 8–100
[2025-01-26 04:06] LABS: Anion Gap 12 (5-15); Carbon Dioxide 29 mmol/L (20-31); Chloride 103 mmol/L (98-107); Potassium 3.7 mmol/L (3.5-5.1); Sodium 144 mmol/L (136-145)
[2025-01-26 04:07] LABS: Calcium 9.6 mg/dL (8.7-10.4)
[2025-01-26 04:12] LABS: BUN/Creatinine Ratio 62.3 (10.0-20.0); Glucose 85 mg/dL (74-106)
[2025-01-26 04:13] LABS: Hematocrit 22.6 % (36.0-46.0); Hemoglobin 7.4 g/dL (12.2-16.2)
[2025-01-26 04:15] LABS: Blood Urea Nitrogen 81 mg/dL (9-23)
[2025-01-26 04:17] LABS: Mean Corpuscular Hemoglobin 29.2 pg (28.0-32.0); Mean Corpuscular Volume 89.7 fL (80.0-100.0); Nucleated Red Blood Cells % 0.4 %
--- NOTE | 2025-01-26 05:39 | DVH ---
CHEST RADIOGRAPH Indication: Mechanical ventilation Technique: Single frontal view of the chest was obtained COMPARISON: XY CHEST XRAY 1 VIEW on DOS: 01/25/25, XY CHEST PORTABLE on DOS: 01/25/25, XY CHEST PORTABL E on DOS: 01/23/25, XY CHEST PORTABLE on DOS: 01/23/25, XY CHEST PORTABLE on DOS: 01/22/25 FINDINGS: Lines and Tubes: Unchanged. Lungs: Stable appearing left basilar pulmonary airspace disease and right lower lung zone atelectasis . No definite evidence of pleural effusion. No pneumothorax. Cardiomediastinal contours: Cardiomegaly. Bones: Unremarkable IMPRESSION: 1. Stable left basilar pulmonary airspace disease and right lower lung zone atelectasis. 2. Cardiomegaly. 3. Lines and tubes unchanged.
[2025-01-26] MEDS: DEXTROSE (50%) 50ML SYRG IV PRN (06:33)
[2025-01-26] MEDS ORDERED: DEXTROSE (50%) 50ML SYRG IV PRN (08:15)
[2025-01-26 09:42] LABS: Base Excess 5.6 mmol/L (-2.0-3.0)
[2025-01-26] MEDS: BUMETANIDE 1mg/4ml VIAL (0.25mg/ml) IV SCH (10:29)
[2025-01-26] MEDS: InsuLIN REG 1unit/0.01ml Soln (100units/ml) SC SCH ×2 (12:00→18:00)
[2025-01-26] MEDS: ACCU-CHEK COMFORT CURVE STRIP VI SCH ×2 (12:23→18:05)
[2025-01-26] MEDS: LIDOCAINE 1% (LOCAL ANESTH.) PF 5ml SDV ID ONE (13:45)
[2025-01-26] MEDS: Glucerna 1.2 Cal 1Liter BOTTLE GT SCH (14:00)
--- NOTE | 2025-01-26 14:21 | DVH ---
Date: 01/26/2025 01:46 PM Examination: XY KUB ABDOMEN SINGLE VIEW History: s/p lower extremity picc line placement Comparison: XY KUB ABDOMEN SINGLE VIEW on DOS: 01/20/25, XY KUB ABDOMEN SINGLE VIEW on DOS: 01/13/25, CT CT AB PEL WO CON-NO ORAL OR IV on DOS: 01/12/25 TECHNIQUE: Frontal views of the abdomen was obtained. FINDINGS: Postop changes with skin closure lilly across the left abdomen. Femoral venous catheter in place with the tip at L2. [address] Oral contrast noted throughout the colon from the cecum to the rectum. No findings to suggest bowel o bstruction. Surgical clips over the right inguinal area Bowel gas pattern is unremarkable. The lung bases are unremarkable. No acute osseous abnormality identified. IMPRESSION: 1. Nonobstructive bowel gas pattern. 2. Femoral venous catheter in place with the tip at L
[2025-01-26] MEDS: diphenhydrAMINE HCL 50 MG/1 ML VL ONE (14:27)
[2025-01-26] MEDS: methylPREDNISolone SOD SUCC 125 MG/2 ML VL ONE (14:28)
--- NOTE | 2025-01-26 17:43 | DVHPNRES ---
Progress Note Date Seen: Jan 26, 2025 Resident Creating Document: DG YOUNG RESIDENT Has the PT tested + for MRSA If YES, has PT been informed?: No Medical Necessity Reason Pt with a Central, PICC or Fol: Yes The following are medically ne: Central Line, Leach Catheter Reason for leach catheter: Strict I&O Subjective Review of Systems This is a 80-year-old female with past medical history of hypertension, AFib on Eliquis, type 2 diabetes mellitus, autoimmune disease, CKD, presented to the ED with a chief complaint of severe abdominal pain for last 2 4 days prior to this visit. The i.e. the patient has intermittent able minimal pain for last 4 month, getting worse that prompted this visit. mentioned recently this patient had a fall few weeks ago and chest x-ray demonstrated healed fracture on right 4th and 5th ribs. Before intubation the patient described the abdominal pain is sharp constant pain, diffuse in nature, 9/10, radiates to the back and associated with constipation. He denies fever, chills, shortness of breath, dizziness, nausea, vomiting, hematuria, dysuria, recent traveling, or any positive for Crohn's sick contact or any altered bowel habit. CT abdomen pelvis without IV contrast demonstrated free intraperitoneal likely from visceral perforation of the left abdominal small bowel loops, circumferential wall thickening of left abdominal small bowel loop with more focal local pool of gas adjacent to this thickened small bowel loop. Underwent emergent exploratory laparotomy, lysis of adhesions, extensive lab age, resection of perforated small bowel, enteroenterostomy. Patient was seen and examined on the bedside in ICU. Family was on the bedside. Status post exploratory laparotomy with enteroenterostomy, day 13. She is on mechanical ventilation with FiO2 30%, tidal volume 450 mL, peep 5 and respiratory rate 20. Patient is off sedation since 4 AM this morning, but not waking up, not responsive to stimuli, underwent spontaneous breathing trial today for breathing exercise. Scheduled for another CPAP trial tomorrow. Objective vital signs Vital Sign Date Time Temp Pulse Resp B/P (MAP) Pulse Ox O2 Delivery O2 Flow Rate FiO2 01/26/25 17:00 110 19 132/53 (79) 100 01/26/25 16:45 97.7 207.9 01/26/25 16:19 30 01/26/25 16:00 Mechanical Ventilator+ Total Intake and Output 01/25/25 01/25/25 01/26/25 15:00 23:00 07:00 Intake Total 540.0 ml 311.0 ml 246.0 ml Output Total 1237 ml 745 ml Balance 540.0 ml -926.0 ml -499.0 ml medications Current Medications Medications Dose Ordered Sig/Isaura Route Start Time Stop Time Status Last Admin Dose Admin Pantoprazole Sodium 40 mg DAILY IV 01/13/25 10:00 01/26/25 10:27 40 MG Cefazolin Sodium 50 ml @ 100 mls/hr Q8HR IV 01/13/25 14:00 UNV Midazolam HCl 50 ml @ 1 mls/hr Q24H IV 01/13/25 13:30 01/22/25 06:34 5 MLS/HR Norepinephrine Bitartrate 250 ml @ 3.75 mls/hr Q24H IV 01/13/25 13:30 01/21/25 17:20 3.75 MLS/HR Vasopressin 20 units/Sodium Chloride 100 ml @ 9 mls/hr Q11H7M IV 01/13/25 18:45 UNV Potassium Chloride 100 ml @ 50 mls/hr Q2H IV 01/16/25 12:45 01/16/25 18:44 UNV Meropenem 50 ml @ 17 mls/hr Q12H IV 01/20/25 03:00 01/26/25 15:35 17 MLS/HR Vancomycin HCl 100 ml @ 100 mls/hr DAILY@1200 IV 01/20/25 12:00 UNV Micafungin Sodium 100 mg/Sodium Chloride 100 ml @ 100 mls/hr DAILY IV 01/21/25 10:00 01/26/25 10:29 100 MLS/HR Fentanyl Citrate 250 ml @ 2.5 mls/hr Q24H IV 01/22/25 19:00 01/25/25 14:42 20 MLS/HR Enteral Nutritional Formula 1,000 ml 50ML/HR GT 01/26/25 08:15 01/26/25 14:00 1,000 ML Sodium Chloride 10 ml QSHIFT@10,22 IV 01/26/25 22:00 Diagnostic Test (Pha) 1 strip Q6HR 01/26/25 18:00 Insulin Human Regular Q6HR SC 01/26/25 18:00 Dextrose 50 ml UD PRN IV 01/26/25 14:00 Examination Examination General: RASS -3, afebrile, mucosae are moist Cardiovascular: Normal S1 and S2. No murmurs, gallops or rubs Respiratory: Mechanically assisted ventilation, equal bilateral airway entree. Decreased breath sounds on both sides lower lung field Abdomen: Soft, nontender, no organomegaly, hypoactive bowel sounds, surgical scar on the midline, no sign of erythema or oozing from the incision site MSK/skin: hemorrhagic blisters in bilateral upper extremity and oozing from this, skin is mottled more pronounced in hands and feet bilaterally, Mobilization of limbs cannot be evaluated. Skin is dry and warm. Neurological: Orientation cannot be assessed. No apparent motor no sensitive deficits. Pupils are isocoric and reactive laboratory and microbiology Laboratory Tests 01/26/25 03:15 Test 01/26/25 03:15 Range/Units Serum Glucose 85 74-106 mg/dL Microbiology Date/Time Source Procedure Growth Status 01/20/25 00:57 Blood Blood Culture - Final NO GROWTH AFTER 5 DAYS OF INCUBATION. Complete 01/13/25 17:10 Nose MRSA Screen - Final Complete 01/13/25 13:05 Sputum Gram Stain - Final Complete 01/13/25 13:05 Sputum Respiratory Culture - Final Complete 01/13/25 11:42 Peritoneal Fluid Gram Stain - Final Complete 01/13/25 11:42 Peritoneal Fluid Anaerobic Culture - Final Complete 01/13/25 11:42 Aerobic Culture - Final Escherichia coli Klebsiella pneumoniae Complete Labs and/or images reviewed: Labs reviewed by me, Image(s) reviewed by me Problem List/Assessment/Plan Problem List/Assessment/Plan Assessment and plan: NEURO: Acute metabolic encephalopathy secondary to acute hypoxic respiratory failure Status post intubation RASS score: -3 CARDIOVASCULAR: Septic shock secondary to perforation of the hollow viscus Paroxysmal atrial fibrillation with secondary hypercoagulable state Chronic diastolic heart failure with preserved ejection fraction - echo demonstrated EF 65%, mild LV diastolic dysfunction - Chest xray demonstrated bibasilar atelectasis - [id number] score more than 5 - hold Lovenox because of severe thrombocytopenia PULMONARY: Acute hypoxic respiratory failure secondary to bilateral pleural effusion Volume overload due to chronic HFpEF - chest x-ray demonstrated bilateral hazy opacities GASTROINTESTINAL: Perforation of the small bowel, status post exploratory laparotomy Transaminitis secondary to shock - Small-bowel series showed non obstructing bowel gas pattern. GENITOURINARY: ISRRAEL on CKD secondary to shock/VMN ENDOCRINE: History of hypothyroidism Type 2 diabetes mellitus, hemoglobin A1c 8.2 Few episodes of hypoglycemia - Mild sliding scale of insulin METABOLIC: Hyperkalemia secondary to ISRRAEL Moderate protein calorie malnutrition, albumin 2.6 Anion gap metabolic acidosis secondary to bowel ischemia leading to lactic acidosis Contraction alkalosis HEME: Acute on chronic anemia secondary to hemodilution/post surgical Severe thrombocytopenia likely secondary to HIT Possible heparin-induced thrombocytopenia type 2 Acute DVT of right upper extremity - 2 unit of PRBC and platelet given since the surgery INFECTIOUS DISEASE: Sepsis with septic shock secondary to perforation of the small bowel - respiratory culture negative, peritoneal fluid culture demonstrated E coli, Klebsiella - continue IV meropenem and IV micafungin DIET: Tube feeding DVT prophylax: Hold GI prophylaxis: Pantoprazole Bowel regimen: Code status: Full code LINES/DRAINS/ACCESS: ETT: Intubated on 01/14/25 IV access: Rt upper thigh PICC placed on 01/26/2025 Drips: Versed and fentanyl Leach catheter: Placed on 10/03 DISPOSITION: ICU Patient's status discussed with Son, brother and sister Critical care time spent more than 83 minutes, including CPAP trial, patient care, chart review, and updating the family. Excluding any procedures. CPAP trial tomorrow Case discussed with Dr. Self Plan discussed with: Other (RN) My Orders My Orders Orders - DG YOUNG RESIDENT Procedure Category Date Status Time Chest Portable XY 01/26/25 Resulted 04:00 Abg W/ Co-Ox RT 01/26/25 Logged 04:00 Nutritional PHA 01/26/25 In Process Supplements (Glucerna 08:15 Cpap Trial For Am ORDERS 01/26/25 Transmitted 11:36 Nursing Protocol Picc SAPPHIRE 01/26/25 In Process 13:32 Change Dressing Prn SAPPHIRE 01/26/25 In Process 13:32 PICC BD 01/26/25 Transmitted 13:32 Sodium Chloride Lock PHA 01/26/25 In Process (Saline Lock Ns) 22:00 Do Not Use Picc For [facility] 01/26/25 In Process Blood Cult 13:32 May Draw Blood From SAPPHIRE 01/26/25 In Process Picc 13:32 Ok To Use Picc SAPPHIRE 01/26/25 In Process 13:32 Change Picc Dressing SAPPHIRE 01/26/25 In Process Q7 Days 13:32 Kub Abdomen Single XY 01/26/25 Resulted View 13:32 Us Guided Vascular US 01/26/25 Logged Access 13:32 Glucose Blood PHA 01/26/25 In Process (Accu-Chek Comfort 18:00 Insulin R (Human) PHA 01/26/25 In Process (Insulin R) 18:00 Dextrose 50% Syringe PHA 01/26/25 In Process 14:00 Dietary Evaluation Review Comments: Nutrition Recommendation: 1) TPN to meet at least 75% estimated needs within 7 days 2) Monitor NPO status, lab values, wt trend, I/O Expected Outcomes/Goals: To meet >75% estimated needs Lab values to improve Fu 2-3 days CC Plasma Assessment Blood Product Administration S: [id number] Date of Service: Jan 26, 2025 Billing Provider: ZBIGNIEW SELF MD Common Visit Codes: 79750-[id number] CARE 30-74 MIN, [id number]-[id number] CARE-EACH +30MIN DG YOUNG RESIDENT Jan 26, 2025 17:43 ZBIGNIEW SELF MD Jan 27, 2025 11:42
[2025-01-26] MEDS: SODIUM CHLORIDE 0.9% 1,000 ML IV ONE (19:45)
--- NOTE | 2025-01-26 19:47 | DVHPN2 ---
Progress Note Date Seen: Jan 26, 2025 Has the PT tested + for MRSA If YES, has PT been informed?: No Medical Necessity Reason Pt with a Central, PICC or Fol: Yes The following are medically ne: Central Line, Leach Catheter Reason for leach catheter: Strict I&O Subjective Patient reports: Other (Patient is intubated) Review of Systems: Deferred Objective vital signs Vital Sign Date Time Temp Pulse Resp B/P (MAP) Pulse Ox O2 Delivery O2 Flow Rate FiO2 01/26/25 18:45 98.2 115 24 138/72 (94) 99 208.8 01/26/25 18:20 30 01/26/25 18:00 Mechanical Ventilator+ Total Intake and Output 01/25/25 01/25/25 01/26/25 15:00 23:00 07:00 Intake Total 540.0 ml 311.0 ml 246.0 ml Output Total 1237 ml 745 ml Balance 540.0 ml -926.0 ml -499.0 ml medications Current Medications Medications Dose Ordered Sig/Isaura Route Start Time Stop Time Status Last Admin Dose Admin Pantoprazole Sodium 40 mg DAILY IV 01/13/25 10:00 01/26/25 10:27 40 MG Cefazolin Sodium 50 ml @ 100 mls/hr Q8HR IV 01/13/25 14:00 UNV Midazolam HCl 50 ml @ 1 mls/hr Q24H IV 01/13/25 13:30 01/22/25 06:34 5 MLS/HR Norepinephrine Bitartrate 250 ml @ 3.75 mls/hr Q24H IV 01/13/25 13:30 01/21/25 17:20 3.75 MLS/HR Vasopressin 20 units/Sodium Chloride 100 ml @ 9 mls/hr Q11H7M IV 01/13/25 18:45 UNV Potassium Chloride 100 ml @ 50 mls/hr Q2H IV 01/16/25 12:45 01/16/25 18:44 UNV Meropenem 50 ml @ 17 mls/hr Q12H IV 01/20/25 03:00 01/26/25 15:35 17 MLS/HR Vancomycin HCl 100 ml @ 100 mls/hr DAILY@1200 IV 01/20/25 12:00 UNV Micafungin Sodium 100 mg/Sodium Chloride 100 ml @ 100 mls/hr DAILY IV 01/21/25 10:00 01/26/25 10:29 100 MLS/HR Fentanyl Citrate 250 ml @ 2.5 mls/hr Q24H IV 01/22/25 19:00 01/25/25 14:42 20 MLS/HR Enteral Nutritional Formula 1,000 ml 50ML/HR GT 01/26/25 08:15 01/26/25 14:00 1,000 ML Sodium Chloride 10 ml QSHIFT@10,22 IV 01/26/25 22:00 Diagnostic Test (Pha) 1 strip Q6HR 01/26/25 18:00 01/26/25 18:05 1 STRIP Insulin Human Regular Q6HR SC 01/26/25 18:00 Dextrose 50 ml UD PRN IV 01/26/25 14:00 Examination: GENERAL:Abnormal, LUNGS:Abnormal, MSK:Abnormal, NEURO:Abnormal laboratory and microbiology Laboratory Tests 01/26/25 03:15 Test 01/26/25 03:15 Range/Units Serum Glucose 85 74-106 mg/dL Microbiology Date/Time Source Procedure Growth Status 01/20/25 00:57 Blood Blood Culture - Final NO GROWTH AFTER 5 DAYS OF INCUBATION. Complete 01/13/25 17:10 Nose MRSA Screen - Final Complete 01/13/25 13:05 Sputum Gram Stain - Final Complete 01/13/25 13:05 Sputum Respiratory Culture - Final Complete 01/13/25 11:42 Peritoneal Fluid Gram Stain - Final Complete 01/13/25 11:42 Peritoneal Fluid Anaerobic Culture - Final Complete 01/13/25 11:42 Aerobic Culture - Final Escherichia coli Klebsiella pneumoniae Complete Problem List/Assessment/Plan Problem List/Assessment/Plan Acute kidney injury superimposed Chronic Kidney Disease secondary hemodynamic mediated Acute respiratory failure, patient intubated on ventilator Acute perforation of the abdomen / bowel ischemia s/p exlap History of atrial fibrillation previously on anticoagulation 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 , RA + Diabetes mellitus type 2 Hyperglycemia Hypophosphatemia hyperkalemia-----> hypokalemia Dropping hemoglobin Anemia due to blood loss Thrombocytopenia, improving Chest x-ray consistent with pulmonary edema recs DC Bumex,, ordered NS IV for 1 L non oliguric Plan discussed with: Other My Orders My Orders Orders - RAHEL MONTGOMERY MD Procedure Category Date Status Time NS PHA 01/26/25 Transmitted 19:45 Dietary Evaluation Review Comments: Nutrition Recommendation: 1) TPN to meet at least 75% estimated needs within 7 days 2) Monitor NPO status, lab values, wt trend, I/O Expected Outcomes/Goals: To meet >75% estimated needs Lab values to improve Fu 2-3 days CC Plasma Assessment Blood Product Administration S: [id number] RAHEL MONTGOMERY MD Jan 26, 2025 19:46
[2025-01-26] MEDS: SODIUM CHLOR 0.9% PF (SALINE LOCK) 10ML VIAL/SYR IV SCH (22:00)
[2025-01-27] VITALS (87 sets, daily range): BP systolic 95–192; BP diastolic 21–78; PULSE 94–118; RESP 11–28; TEMP 97.3–100; O2SAT 97–100
[2025-01-27 03:49] LABS: Anion Gap 12 (5-15); Carbon Dioxide 28 mmol/L (20-31); Chloride 107 mmol/L (98-107); Potassium 3.6 mmol/L (3.5-5.1)
[2025-01-27 03:50] LABS: Calcium 9.2 mg/dL (8.7-10.4)
[2025-01-27 03:51] LABS: Hemoglobin 7.2 g/dL (12.2-16.2)
[2025-01-27 03:54] LABS: Hematocrit 22.1 % (36.0-46.0); Mean Corpuscular Hemoglobin 28.7 pg (28.0-32.0); Mean Corpuscular Volume 87.6 fL (80.0-100.0); Nucleated Red Blood Cells % 0.5 %
[2025-01-27 03:55] LABS: BUN/Creatinine Ratio 53.5 (10.0-20.0); Glucose 104 mg/dL (74-106)
[2025-01-27 04:07] LABS: Blood Urea Nitrogen 77 mg/dL (9-23); Sodium 147 mmol/L (136-145)
--- NOTE | 2025-01-27 05:34 | DVH ---
Exam: US US GUIDED VASCULAR ACCESS Clinical History: picc line placement Comparison: US BILAT UPPER EXT ART DUPLEX on DOS: 01/21/25, US BILAT LOW EXT ART DUPLEX on DOS: 5, US BI LAT UPPER DVT on DOS: 01/17/25, US BILAT LOWER DVT on DOS: 01/17/25 Technique: Targeted sonographic evaluation of the soft tissues of the our vein arm vein was obtained utilizing grayscale and color Doppler imaging. Findings/Impression: Sonographic assistance for PICC line placement. Please refer to procedural report for detailed findi ngs.
--- NOTE | 2025-01-27 05:44 | DVH ---
CHEST RADIOGRAPH Indication: Mechanical ventilation Technique: Single frontal view of the chest was obtained COMPARISON: XY CHEST PORTABLE on DOS: 01/26/25, XY CHEST XRAY 1 VIEW on DOS: 01/25/25, XY CHEST PORTABL E on DOS: 01/25/25, XY CHEST PORTABLE on DOS: 01/23/25, XY CHEST PORTABLE on DOS: 01/23/25 FINDINGS: Lines and Tubes: Unchanged. Lungs: Stable appearing left basilar pulmonary airspace disease and probable pleural effusion. Right lower lung zone bandlike atelectasis unchanged. No pneumothorax. Cardiomediastinal contours: Unremarkable Bones: Unremarkable IMPRESSION: 1. Stable left basilar pulmonary airspace disease and pleural effusion and right lower lung zone atel ectasis. 2. Lines and tubes unchanged.
[2025-01-27 07:45] LABS: Base Excess 4.3 mmol/L (-2.0-3.0)
[2025-01-27] MEDS: DEXTROSE (50%) 50ML SYRG IV PRN (12:50)
[2025-01-27] MEDS: FREE WATER GT SCH (12:50)
--- NOTE | 2025-01-27 15:50 | DVHPN2 ---
Progress Note Date Seen: Jan 27, 2025 Has the PT tested + for MRSA If YES, has PT been informed?: No Medical Necessity Reason Pt with a Central, PICC or Fol: Yes The following are medically ne: Central Line, Leach Catheter Reason for leach catheter: Strict I&O Subjective Review of Systems: RESPIRATORY:Abnormal Other Systems: Patient seen and examined by myself today in follow-up, patient remained intubated on ventilator Objective vital signs Vital Sign Date Time Temp Pulse Resp B/P (MAP) Pulse Ox O2 Delivery O2 Flow Rate FiO2 01/27/25 14:35 100 19 99 Mechanical Ventilator+ 30 30 01/27/25 14:30 97.9 122/37 (65) 208.2 Total Intake and Output 01/26/25 01/26/25 01/27/25 15:00 23:00 07:00 Intake Total 100 ml 451.75 ml 484 ml Output Total 1065 ml 515 ml Balance 100 ml -613.25 ml -31 ml medications Current Medications Medications Dose Ordered Sig/Isaura Route Start Time Stop Time Status Last Admin Dose Admin Pantoprazole Sodium 40 mg DAILY IV 01/13/25 10:00 01/27/25 10:56 40 MG Cefazolin Sodium 50 ml @ 100 mls/hr Q8HR IV 01/13/25 14:00 UNV Midazolam HCl 50 ml @ 1 mls/hr Q24H IV 01/13/25 13:30 01/22/25 06:34 5 MLS/HR Norepinephrine Bitartrate 250 ml @ 3.75 mls/hr Q24H IV 01/13/25 13:30 01/21/25 17:20 3.75 MLS/HR Vasopressin 20 units/Sodium Chloride 100 ml @ 9 mls/hr Q11H7M IV 01/13/25 18:45 UNV Potassium Chloride 100 ml @ 50 mls/hr Q2H IV 01/16/25 12:45 01/16/25 18:44 UNV Meropenem 50 ml @ 17 mls/hr Q12H IV 01/20/25 03:00 01/27/25 15:24 17 MLS/HR Vancomycin HCl 100 ml @ 100 mls/hr DAILY@1200 IV 01/20/25 12:00 UNV Micafungin Sodium 100 mg/Sodium Chloride 100 ml @ 100 mls/hr DAILY IV 01/21/25 10:00 01/27/25 10:57 100 MLS/HR Fentanyl Citrate 250 ml @ 2.5 mls/hr Q24H IV 01/22/25 19:00 01/25/25 14:42 20 MLS/HR Enteral Nutritional Formula 1,000 ml 50ML/HR GT 01/26/25 08:15 01/26/25 14:00 1,000 ML Sodium Chloride 10 ml QSHIFT@10,22 IV 01/26/25 22:00 01/27/25 11:03 10 ML Diagnostic Test (Pha) 1 strip Q6HR 01/26/25 18:00 01/27/25 12:49 1 STRIP Insulin Human Regular Q6HR SC 01/26/25 18:00 Dextrose 50 ml UD PRN IV 01/26/25 14:00 01/27/25 12:50 50 ML Purified Water 200 ml Q6HR GT 01/27/25 12:00 01/27/25 12:50 200 ML Examination: LUNGS:Normal, CVS:Normal, MSK:Normal laboratory and microbiology Laboratory Tests 01/27/25 02:59 Test 01/27/25 02:59 Range/Units Serum Glucose 104 74-106 mg/dL Microbiology Date/Time Source Procedure Growth Status 01/20/25 00:57 Blood Blood Culture - Final NO GROWTH AFTER 5 DAYS OF INCUBATION. Complete 01/13/25 17:10 Nose MRSA Screen - Final Complete 01/13/25 13:05 Sputum Gram Stain - Final Complete 01/13/25 13:05 Sputum Respiratory Culture - Final Complete 01/13/25 11:42 Peritoneal Fluid Gram Stain - Final Complete 01/13/25 11:42 Peritoneal Fluid Anaerobic Culture - Final Complete 01/13/25 11:42 Aerobic Culture - Final Escherichia coli Klebsiella pneumoniae Complete Problem List/Assessment/Plan Problem List/Assessment/Plan Acute kidney injury superimposed Chronic Kidney Disease secondary hemodynamic mediated Acute respiratory failure, patient intubated on ventilator Acute perforation of the abdomen / bowel ischemia s/p exlap History of atrial fibrillation previously on anticoagulation 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 DC Bumex Insulin sliding scale We will continue to follow up Plan discussed with: Other Dietary Evaluation Review Comments: Nutrition Recommendation: 1) TPN to meet at least 75% estimated needs within 7 days 2) Monitor NPO status, lab values, wt trend, I/O Expected Outcomes/Goals: To meet >75% estimated needs Lab values to improve Fu 2-3 days CC Plasma Assessment Blood Product Administration S: [id number] LAKESHA REINA MD Jan 27, 2025 15:50
--- NOTE | 2025-01-27 17:35 | DVHPNRES ---
Progress Note Date Seen: Jan 27, 2025 Resident Creating Document: DG YOUNG RESIDENT Has the PT tested + for MRSA If YES, has PT been informed?: No Medical Necessity Reason Pt with a Central, PICC or Fol: Yes The following are medically ne: Central Line, Leach Catheter Reason for leach catheter: Strict I&O Subjective Review of Systems This is a 80-year-old female with past medical history of hypertension, AFib on Eliquis, type 2 diabetes mellitus, autoimmune disease, CKD, presented to the ED with a chief complaint of severe abdominal pain for last 2 4 days prior to this visit. The i.e. the patient has intermittent able minimal pain for last 4 month, getting worse that prompted this visit. mentioned recently this patient had a fall few weeks ago and chest x-ray demonstrated healed fracture on right 4th and 5th ribs. Before intubation the patient described the abdominal pain is sharp constant pain, diffuse in nature, 9/10, radiates to the back and associated with constipation. He denies fever, chills, shortness of breath, dizziness, nausea, vomiting, hematuria, dysuria, recent traveling, or any positive for Crohn's sick contact or any altered bowel habit. CT abdomen pelvis without IV contrast demonstrated free intraperitoneal likely from visceral perforation of the left abdominal small bowel loops, circumferential wall thickening of left abdominal small bowel loop with more focal local pool of gas adjacent to this thickened small bowel loop. Underwent emergent exploratory laparotomy, lysis of adhesions, extensive lab age, resection of perforated small bowel, enteroenterostomy. Patient was seen and examined on the bedside in ICU. Family was on the bedside. Status post exploratory laparotomy with enteroenterostomy, day 14. She is on mechanical ventilation with FiO2 30%, tidal volume 450 mL, peep 5 and respiratory rate 20. Patient is off sedation for more than 24 hr, but not waking up, not responsive to stimuli, underwent spontaneous breathing trial today for breathing exercise. Scheduled for another CPAP trial tomorrow. Objective vital signs Vital Sign Date Time Temp Pulse Resp B/P (MAP) Pulse Ox O2 Delivery O2 Flow Rate FiO2 01/27/25 17:15 99.0 106 24 136/45 (75) 99 210.2 01/27/25 16:28 30 01/27/25 16:00 Mechanical Ventilator+ Total Intake and Output 01/26/25 01/26/25 01/27/25 15:00 23:00 07:00 Intake Total 100 ml 451.75 ml 484 ml Output Total 1065 ml 515 ml Balance 100 ml -613.25 ml -31 ml medications Current Medications Medications Dose Ordered Sig/Isaura Route Start Time Stop Time Status Last Admin Dose Admin Pantoprazole Sodium 40 mg DAILY IV 01/13/25 10:00 01/27/25 10:56 40 MG Cefazolin Sodium 50 ml @ 100 mls/hr Q8HR IV 01/13/25 14:00 UNV Midazolam HCl 50 ml @ 1 mls/hr Q24H IV 01/13/25 13:30 01/22/25 06:34 5 MLS/HR Norepinephrine Bitartrate 250 ml @ 3.75 mls/hr Q24H IV 01/13/25 13:30 01/21/25 17:20 3.75 MLS/HR Vasopressin 20 units/Sodium Chloride 100 ml @ 9 mls/hr Q11H7M IV 01/13/25 18:45 UNV Potassium Chloride 100 ml @ 50 mls/hr Q2H IV 01/16/25 12:45 01/16/25 18:44 UNV Meropenem 50 ml @ 17 mls/hr Q12H IV 01/20/25 03:00 01/27/25 15:24 17 MLS/HR Vancomycin HCl 100 ml @ 100 mls/hr DAILY@1200 IV 01/20/25 12:00 UNV Micafungin Sodium 100 mg/Sodium Chloride 100 ml @ 100 mls/hr DAILY IV 01/21/25 10:00 01/27/25 10:57 100 MLS/HR Fentanyl Citrate 250 ml @ 2.5 mls/hr Q24H IV 01/22/25 19:00 01/25/25 14:42 20 MLS/HR Enteral Nutritional Formula 1,000 ml 50ML/HR GT 01/26/25 08:15 01/26/25 14:00 1,000 ML Sodium Chloride 10 ml QSHIFT@10,22 IV 01/26/25 22:00 01/27/25 11:03 10 ML Diagnostic Test (Pha) 1 strip Q6HR 01/26/25 18:00 01/27/25 12:49 1 STRIP Insulin Human Regular Q6HR SC 01/26/25 18:00 Dextrose 50 ml UD PRN IV 01/26/25 14:00 01/27/25 12:50 50 ML Purified Water 200 ml Q6HR GT 01/27/25 12:00 01/27/25 12:50 200 ML Examination Examination General: RASS -3, afebrile, mucosae are moist Cardiovascular: Normal S1 and S2. No murmurs, gallops or rubs Respiratory: Mechanically assisted ventilation, equal bilateral airway entree. Decreased breath sounds on both sides lower lung field Abdomen: Soft, nontender, no organomegaly, hypoactive bowel sounds, surgical scar on the midline, no sign of erythema or oozing from the incision site MSK/skin: hemorrhagic blisters in bilateral upper extremity and oozing from this, skin is mottled more pronounced in hands and feet bilaterally, Mobilization of limbs cannot be evaluated. Skin is dry and warm. Neurological: Orientation cannot be assessed. No apparent motor no sensitive deficits. Pupils are isocoric and reactive laboratory and microbiology Laboratory Tests 01/27/25 02:59 Test 01/27/25 02:59 Range/Units Serum Glucose 104 74-106 mg/dL Microbiology Date/Time Source Procedure Growth Status 01/20/25 00:57 Blood Blood Culture - Final NO GROWTH AFTER 5 DAYS OF INCUBATION. Complete 01/13/25 17:10 Nose MRSA Screen - Final Complete 01/13/25 13:05 Sputum Gram Stain - Final Complete 01/13/25 13:05 Sputum Respiratory Culture - Final Complete 01/13/25 11:42 Peritoneal Fluid Gram Stain - Final Complete 01/13/25 11:42 Peritoneal Fluid Anaerobic Culture - Final Complete 01/13/25 11:42 Aerobic Culture - Final Escherichia coli Klebsiella pneumoniae Complete Labs and/or images reviewed: Labs reviewed by me, Image(s) reviewed by me Problem List/Assessment/Plan Problem List/Assessment/Plan Assessment and plan: NEURO: Acute metabolic encephalopathy secondary to acute hypoxic respiratory failure Status post intubation RASS score: -3 CARDIOVASCULAR: Septic shock secondary to perforation of the hollow viscus Paroxysmal atrial fibrillation with secondary hypercoagulable state Chronic diastolic heart failure with preserved ejection fraction - echo demonstrated EF 65%, mild LV diastolic dysfunction - Chest xray demonstrated bibasilar atelectasis - [id number] score more than 5 - hold Lovenox because of low hemoglobin PULMONARY: Acute hypoxic respiratory failure secondary to bilateral pleural effusion Volume overload due to chronic HFpEF - chest x-ray demonstrated bilateral hazy opacities GASTROINTESTINAL: Perforation of the small bowel, status post exploratory laparotomy Transaminitis secondary to shock - Small-bowel series showed non obstructing bowel gas pattern. GENITOURINARY: ISRRAEL on CKD secondary to shock/VMN ENDOCRINE: History of hypothyroidism Type 2 diabetes mellitus, hemoglobin A1c 8.2 Few episodes of hypoglycemia - Mild sliding scale of insulin METABOLIC: Hyperkalemia secondary to ISRRAEL Moderate protein calorie malnutrition, albumin 2.6 Anion gap metabolic acidosis secondary to bowel ischemia leading to lactic acidosis Contraction alkalosis HEME: Acute on chronic anemia secondary to hemodilution/post surgical Severe thrombocytopenia likely secondary to HIT Possible heparin-induced thrombocytopenia type 2 Acute DVT of right upper extremity - 3 unit of PRBC and platelet given since the surgery INFECTIOUS DISEASE: Sepsis with septic shock secondary to perforation of the small bowel - respiratory culture negative, peritoneal fluid culture demonstrated E coli, Klebsiella - continue IV meropenem and IV micafungin DIET: Tube feeding DVT prophylax: Hold GI prophylaxis: Pantoprazole Bowel regimen: Code status: Full code LINES/DRAINS/ACCESS: ETT: Intubated on 01/14/25 IV access: Rt upper thigh PICC placed on 01/26/2025 Drips: Versed and fentanyl Leach catheter: Placed on 0 10/03 DISPOSITION: ICU Patient's status discussed with Son, brother and sister Critical care time spent more than 83 minutes, including CPAP trial, patient care, chart review, and updating the family. Excluding any procedures. CPAP trial tomorrow Case discussed with Dr. Self Plan discussed with: Son, Other (RN) My Orders My Orders Orders - DG YOUNG RESIDENT Procedure Category Date Status Time Chest Portable XY 01/27/25 Resulted 04:00 Abg W/ Co-Ox RT 01/27/25 Logged 04:00 Free Water PHA 01/27/25 In Process 12:00 Dietary Evaluation Review Comments: Nutrition Recommendation: 1) TPN to meet at least 75% estimated needs within 7 days 2) Monitor NPO status, lab values, wt trend, I/O Expected Outcomes/Goals: To meet >75% estimated needs Lab values to improve Fu 2-3 days CC Plasma Assessment Blood Product Administration S: [id number] Date of Service: Jan 27, 2025 Billing Provider: ZBIGNIEW SELF MD Common Visit Codes: 16473-[id number] CARE 30-74 MIN, [id number] CARE-EACH +30MIN DG YOUNG Jan 27, 2025 17:35 ZBIGNIEW SELF MD Jan 29, 2025 12:38
--- NOTE | 2025-01-27 19:16 | DVH ---
CHEST RADIOGRAPH Indication: mechanical ventilation Technique: Single frontal view of the chest was obtained Comparison: XY CHEST PORTABLE on DOS: 01/27/25, XY CHEST PORTABLE on DOS: 01/26/25, XY CHEST XRAY 1 VIE W on DOS: 01/25/25 FINDINGS: Lines and Tubes: Endotracheal tube 1.4 cm above the vijay. ENTERIC TUBE BELOW THE DIAPHRAGM IN THE S TOMACH Lungs: No focal consolidation. Pleura: No effusion. No pneumothorax. Cardiomediastinal contours: Unremarkable Bones: No acute osseous abnormality. IMPRESSION: 1. ENDOTRACHEAL TUBE IN PLACE 1.4 CM ABOVE THE VIJAY 2. Enteric tube in the stomach 3. No change in the cardiopulmonary findings study earlier today.
[2025-01-28] VITALS (41 sets, daily range): BP systolic 121–178; BP diastolic 40–75; PULSE 94–122; RESP 13–30; TEMP 97.5–99.7; O2SAT 96–100
[2025-01-28 04:24] LABS: Hematocrit 28.9 % (36.0-46.0); Hemoglobin 9.6 g/dL (12.2-16.2); Mean Corpuscular Hemoglobin 28.6 pg (28.0-32.0); Mean Corpuscular Volume 86.2 fL (80.0-100.0); Nucleated Red Blood Cells % 0.7 %
[2025-01-28 04:40] LABS: Anion Gap 13 (5-15); Carbon Dioxide 28 mmol/L (20-31); Potassium 3.8 mmol/L (3.5-5.1)
[2025-01-28 04:41] LABS: Calcium 9.2 mg/dL (8.7-10.4)
[2025-01-28 04:46] LABS: BUN/Creatinine Ratio 50.0 (10.0-20.0); Glucose 103 mg/dL (74-106)
[2025-01-28 04:52] LABS: Blood Urea Nitrogen 71 mg/dL (9-23); Chloride 109 mmol/L (98-107); Sodium 150 mmol/L (136-145)
--- NOTE | 2025-01-28 05:40 | DVH ---
CHEST RADIOGRAPH Indication: intubated Technique: Single frontal view of the chest was obtained COMPARISON: XY CHEST PORTABLE on DOS: 01/27/25, XY CHEST PORTABLE on DOS: 01/27/25, XY CHEST PORTABLE o n DOS: 01/26/25, XY CHEST XRAY 1 VIEW on DOS: 01/25/25, XY CHEST PORTABLE on DOS: 01/25/25 FINDINGS: Lines and Tubes: Lines and tubes unchanged. Lungs: Stable appearing left basilar pulmonary airspace disease and pleural effusion. Stable right lo wer lung zone atelectasis. No pneumothorax. Cardiomediastinal contours: Unremarkable Bones: Unremarkable IMPRESSION: 1. Stable left basilar pulmonary airspace disease and pleural effusion and right lower lung zone atel ectasis. 2. Lines and tubes unchanged.
[2025-01-28 06:59] LABS: Base Excess 2.8 mmol/L (-2.0-3.0)
[2025-01-28] MEDS: FREE WATER GT SCH (09:45)
--- NOTE | 2025-01-28 13:26 | DVHPNRES ---
Progress Note Date Seen: Jan 28, 2025 Resident Creating Document: DG YOUNG RESIDENT Has the PT tested + for MRSA If YES, has PT been informed?: No Medical Necessity Reason Pt with a Central, PICC or Fol: Yes The following are medically ne: Central Line, Leach Catheter Reason for leach catheter: Strict I&O Subjective Review of Systems This is a 80-year-old female with past medical history of hypertension, AFib on Eliquis, type 2 diabetes mellitus, autoimmune disease, CKD, presented to the ED with a chief complaint of severe abdominal pain for last 2 4 days prior to this visit. The i.e. the patient has intermittent able minimal pain for last 4 month, getting worse that prompted this visit. mentioned recently this patient had a fall few weeks ago and chest x-ray demonstrated healed fracture on right 4th and 5th ribs. Before intubation the patient described the abdominal pain is sharp constant pain, diffuse in nature, 9/10, radiates to the back and associated with constipation. He denies fever, chills, shortness of breath, dizziness, nausea, vomiting, hematuria, dysuria, recent traveling, or any positive for Crohn's sick contact or any altered bowel habit. CT abdomen pelvis without IV contrast demonstrated free intraperitoneal likely from visceral perforation of the left abdominal small bowel loops, circumferential wall thickening of left abdominal small bowel loop with more focal local pool of gas adjacent to this thickened small bowel loop. Underwent emergent exploratory laparotomy, lysis of adhesions, extensive lab age, resection of perforated small bowel, enteroenterostomy. Patient was seen and examined on the bedside in ICU. Family was on the bedside. Status post exploratory laparotomy with enteroenterostomy, day 15. She is on mechanical ventilation with FiO2 30%, tidal volume 450 mL, peep 5 and respiratory rate 20. Patient is off sedation for more than 48 hr, but not waking up, not responsive to stimuli, underwent spontaneous breathing trial today for breathing exercise. Scheduled for another CPAP trial tomorrow. Objective vital signs Vital Sign Date Time Temp Pulse Resp B/P (MAP) Pulse Ox O2 Delivery O2 Flow Rate FiO2 01/28/25 11:19 99 26 121/51 (74) 99 30 01/28/25 07:50 Mechanical Ventilator+ 01/28/25 06:00 99.5 211.1 Total Intake and Output 01/27/25 01/27/25 01/28/25 15:00 23:00 07:00 Intake Total 350 ml 689 ml Output Total 450 ml 661 ml Balance -100 ml 28 ml medications Current Medications Medications Dose Ordered Sig/Isaura Route Start Time Stop Time Status Last Admin Dose Admin Pantoprazole Sodium 40 mg DAILY IV 01/13/25 10:00 01/28/25 11:06 40 MG Cefazolin Sodium 50 ml @ 100 mls/hr Q8HR IV 01/13/25 14:00 UNV Midazolam HCl 50 ml @ 1 mls/hr Q24H IV 01/13/25 13:30 01/22/25 06:34 5 MLS/HR Norepinephrine Bitartrate 250 ml @ 3.75 mls/hr Q24H IV 01/13/25 13:30 01/21/25 17:20 3.75 MLS/HR Vasopressin 20 units/Sodium Chloride 100 ml @ 9 mls/hr Q11H7M IV 01/13/25 18:45 UNV Potassium Chloride 100 ml @ 50 mls/hr Q2H IV 01/16/25 12:45 01/16/25 18:44 UNV Meropenem 50 ml @ 17 mls/hr Q12H IV 01/20/25 03:00 01/28/25 02:55 17 MLS/HR Vancomycin HCl 100 ml @ 100 mls/hr DAILY@1200 IV 01/20/25 12:00 UNV Micafungin Sodium 100 mg/Sodium Chloride 100 ml @ 100 mls/hr DAILY IV 01/21/25 10:00 01/28/25 11:06 100 MLS/HR Fentanyl Citrate 250 ml @ 2.5 mls/hr Q24H IV 01/22/25 19:00 01/25/25 14:42 20 MLS/HR Enteral Nutritional Formula 1,000 ml 50ML/HR GT 01/26/25 08:15 01/26/25 14:00 1,000 ML Sodium Chloride 10 ml QSHIFT@10,22 IV 01/26/25 22:00 01/28/25 11:06 10 ML Diagnostic Test (Pha) 1 strip Q6HR 01/26/25 18:00 01/28/25 12:23 1 STRIP Insulin Human Regular Q6HR SC 01/26/25 18:00 Dextrose 50 ml UD PRN IV 01/26/25 14:00 01/27/25 12:50 50 ML Purified Water 200 ml Q4HR GT 01/28/25 09:45 01/28/25 10:00 200 ML Furosemide 40 mg DAILY IV 01/29/25 10:00 Examination Examination General: RASS -3, afebrile, mucosae are moist Cardiovascular: Normal S1 and S2. No murmurs, gallops or rubs Respiratory: Mechanically assisted ventilation, equal bilateral airway entree. Decreased breath sounds on both sides lower lung field Abdomen: Soft, nontender, no organomegaly, hypoactive bowel sounds, surgical scar on the midline, no sign of erythema or oozing from the incision site MSK/skin: hemorrhagic blisters in bilateral upper extremity and oozing from this, skin is mottled more pronounced in hands and feet bilaterally, Mobilization of limbs cannot be evaluated. Skin is dry and warm. Neurological: Orientation cannot be assessed. No apparent motor no sensitive deficits. Pupils are isocoric and reactive laboratory and microbiology Laboratory Tests 01/28/25 03:41 Test 01/28/25 03:41 Range/Units Serum Glucose 103 74-106 mg/dL Microbiology Date/Time Source Procedure Growth Status 01/20/25 00:57 Blood Blood Culture - Final NO GROWTH AFTER 5 DAYS OF INCUBATION. Complete 01/13/25 17:10 Nose MRSA Screen - Final Complete 01/13/25 13:05 Sputum Gram Stain - Final Complete 01/13/25 13:05 Sputum Respiratory Culture - Final Complete 01/13/25 11:42 Peritoneal Fluid Gram Stain - Final Complete 01/13/25 11:42 Peritoneal Fluid Anaerobic Culture - Final Complete 01/13/25 11:42 Aerobic Culture - Final Escherichia coli Klebsiella pneumoniae Complete Labs and/or images reviewed: Labs reviewed by me, Image(s) reviewed by me Problem List/Assessment/Plan Problem List/Assessment/Plan Assessment and plan: NEURO: Acute metabolic encephalopathy secondary to acute hypoxic respiratory failure Status post intubation RASS score: -3 CARDIOVASCULAR: Septic shock secondary to perforation of the hollow viscus Paroxysmal atrial fibrillation with secondary hypercoagulable state Chronic diastolic heart failure with preserved ejection fraction - echo demonstrated EF 65%, mild LV diastolic dysfunction - Chest xray demonstrated bibasilar atelectasis - [id number] score more than 5 - hold Lovenox because of low hemoglobin PULMONARY: Acute hypoxic respiratory failure secondary to bilateral pleural effusion Volume overload due to chronic HFpEF - chest x-ray demonstrated bilateral hazy opacities GASTROINTESTINAL: Perforation of the small bowel, status post exploratory laparotomy Transaminitis secondary to shock - Small-bowel series showed non obstructing bowel gas pattern. GENITOURINARY: ISRRAEL on CKD secondary to shock/VMN ENDOCRINE: History of hypothyroidism Type 2 diabetes mellitus, hemoglobin A1c 8.2 Few episodes of hypoglycemia - Mild sliding scale of insulin METABOLIC: Hyperkalemia secondary to ISRRAEL Moderate protein calorie malnutrition, albumin 2.6 Anion gap metabolic acidosis secondary to bowel ischemia leading to lactic acidosis Contraction alkalosis HEME: Acute on chronic anemia secondary to hemodilution/post surgical Severe thrombocytopenia likely secondary to HIT Possible heparin-induced thrombocytopenia type 2 Acute DVT of right upper extremity - 3 unit of PRBC and platelet given since the surgery INFECTIOUS DISEASE: Sepsis with septic shock secondary to perforation of the small bowel - respiratory culture negative, peritoneal fluid culture demonstrated E coli, Klebsiella - continue IV meropenem and IV micafungin DIET: Tube feeding DVT prophylax: Hold GI prophylaxis: Pantoprazole Bowel regimen: Code status: Full code LINES/DRAINS/ACCESS: ETT: Intubated on 01/14/25 IV access: Rt upper thigh PICC placed on 01/26/2025 Drips: Versed and fentanyl Leach catheter: Placed on 0 10/03 DISPOSITION: ICU Patient's status discussed with Son, brother and sister Critical care time spent more than 83 minutes, including CPAP trial, patient care, chart review, and updating the family. Excluding any procedures. CPAP trial tomorrow Case discussed with Dr. Pino Plan discussed with: Son, Other (RN) My Orders My Orders Orders - DG YOUNG RESIDENT Procedure Category Date Status Time Chest Portable XY 01/27/25 Resulted 17:35 Abg W/ Co-Ox RT 01/28/25 Logged 04:00 Chest Portable XY 01/28/25 Resulted 04:00 Blood Culture MARIA ISABEL 01/28/25 Uncollected 09:18 Urine Bacterial MARIA ISABEL 01/28/25 In Process Culture 13:01 Respiratory Culture MARIA ISABEL 01/28/25 Uncollected W/ Gs 09:18 Cpap Trial For Am ORDERS 01/28/25 Transmitted 09:28 Free Water PHA 01/28/25 In Process 09:45 Furosemide Injection PHA 01/29/25 In Process (Lasix Injection) 10:00 Dietary Evaluation Review Comments: Nutrition Recommendation: 1) TPN to meet at least 75% estimated needs within 7 days 2) Monitor NPO status, lab values, wt trend, I/O Expected Outcomes/Goals: To meet >75% estimated needs Lab values to improve Fu 2-3 days CC Plasma Assessment Blood Product Administration S: [id number] Date of Service: Jan 28, 2025 Billing Provider: ROCIO PINO MD Common Visit Codes: NOT BILLABLE DG YOUNG RESIDENT Jan 28, 2025 13:25 ROCIO PINO MD Feb 24, 2025 16:23
[2025-01-28] MEDS: FUROSEMIDE 40 MG/4 ML VIAL IV ONE (14:00)
--- NOTE | 2025-01-28 18:52 | DVHPN2 ---
Progress Note Date Seen: Jan 28, 2025 Has the PT tested + for MRSA If YES, has PT been informed?: No Medical Necessity Reason Pt with a Central, PICC or Fol: Yes The following are medically ne: Central Line, Leach Catheter Reason for leach catheter: Strict I&O Subjective Patient reports: Other Review of Systems: Deferred Objective vital signs Vital Sign Date Time Temp Pulse Resp B/P (MAP) Pulse Ox O2 Delivery O2 Flow Rate FiO2 01/28/25 17:00 98.8 115 25 133/58 (83) 98 209.8 01/28/25 15:20 30 01/28/25 14:00 Mechanical Ventilator+ Total Intake and Output 01/27/25 01/27/25 01/28/25 14:59 22:59 06:59 Intake Total 350 ml 689 ml Output Total 450 ml 661 ml Balance -100 ml 28 ml medications Current Medications Medications Dose Ordered Sig/Isaura Route Start Time Stop Time Status Last Admin Dose Admin Pantoprazole Sodium 40 mg DAILY IV 01/13/25 10:00 01/28/25 11:06 40 MG Cefazolin Sodium 50 ml @ 100 mls/hr Q8HR IV 01/13/25 14:00 UNV Midazolam HCl 50 ml @ 1 mls/hr Q24H IV 01/13/25 13:30 01/22/25 06:34 5 MLS/HR Norepinephrine Bitartrate 250 ml @ 3.75 mls/hr Q24H IV 01/13/25 13:30 01/21/25 17:20 3.75 MLS/HR Vasopressin 20 units/Sodium Chloride 100 ml @ 9 mls/hr Q11H7M IV 01/13/25 18:45 UNV Potassium Chloride 100 ml @ 50 mls/hr Q2H IV 01/16/25 12:45 01/16/25 18:44 UNV Meropenem 50 ml @ 17 mls/hr Q12H IV 01/20/25 03:00 01/28/25 16:11 17 MLS/HR Vancomycin HCl 100 ml @ 100 mls/hr DAILY@1200 IV 01/20/25 12:00 UNV Micafungin Sodium 100 mg/Sodium Chloride 100 ml @ 100 mls/hr DAILY IV 01/21/25 10:00 01/28/25 11:06 100 MLS/HR Fentanyl Citrate 250 ml @ 2.5 mls/hr Q24H IV 01/22/25 19:00 01/25/25 14:42 20 MLS/HR Enteral Nutritional Formula 1,000 ml 50ML/HR GT 01/26/25 08:15 01/26/25 14:00 1,000 ML Sodium Chloride 10 ml QSHIFT@10,22 IV 01/26/25 22:00 01/28/25 11:06 10 ML Diagnostic Test (Pha) 1 strip Q6HR 01/26/25 18:00 01/28/25 18:24 1 STRIP Insulin Human Regular Q6HR SC 01/26/25 18:00 Dextrose 50 ml UD PRN IV 01/26/25 14:00 01/27/25 12:50 50 ML Purified Water 200 ml Q4HR GT 01/28/25 09:45 01/28/25 18:25 200 ML Furosemide 40 mg DAILY IV 01/29/25 10:00 laboratory and microbiology Laboratory Tests 01/28/25 03:41 Test 01/28/25 03:41 Range/Units Serum Glucose 103 74-106 mg/dL Microbiology Date/Time Source Procedure Growth Status 01/20/25 00:57 Blood Blood Culture - Final NO GROWTH AFTER 5 DAYS OF INCUBATION. Complete 01/13/25 17:10 Nose MRSA Screen - Final Complete 01/13/25 13:05 Sputum Gram Stain - Final Complete 01/13/25 13:05 Sputum Respiratory Culture - Final Complete 01/13/25 11:42 Peritoneal Fluid Gram Stain - Final Complete 01/13/25 11:42 Peritoneal Fluid Anaerobic Culture - Final Complete 01/13/25 11:42 Aerobic Culture - Final Escherichia coli Klebsiella pneumoniae Complete Problem List/Assessment/Plan Problem List/Assessment/Plan Acute kidney injury superimposed Chronic Kidney Disease secondary hemodynamic mediated Acute respiratory failure, patient intubated on ventilator Acute perforation of the abdomen / bowel ischemia s/p exlap History of atrial fibrillation previously on anticoagulation 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 , RA + Diabetes mellitus type 2 Hyperglycemia Hypophosphatemia hyperkalemia-----> hypokalemia Dropping hemoglobin Anemia due to blood loss Thrombocytopenia, improving Chest x-ray consistent with pulmonary edema recs Resume Lasix IV daily Free water for sodium Plan discussed with: Other Dietary Evaluation Review Comments: Nutrition Recommendation: 1) TPN to meet at least 75% estimated needs within 7 days 2) Monitor NPO status, lab values, wt trend, I/O Expected Outcomes/Goals: To meet >75% estimated needs Lab values to improve Fu 2-3 days CC Plasma Assessment Blood Product Administration S: [id number] RAHEL MONTGOMERY MD Jan 28, 2025 18:52
[2025-01-29] VITALS (40 sets, daily range): BP systolic 124–163; BP diastolic 25–85; PULSE 100–115; RESP 8–28; TEMP 97.9–100; O2SAT 97–100
--- NOTE | 2025-01-29 01:58 | DVH ---
EXAM: CT HEAD WITHOUT CONTRAST INDICATION: to rule out stroke TECHNIQUE: CT of the head without intravenous contrast. Radiation Dose : 1. Head: CT Dose: CTDI volume is 57.8 mGy. Dose-length product is 1139.09 mGy*cm The dose indicators for CT are the volume Computed Tomography (CT) Dose Index (CTDIvol) and the Dose Length Product (DLP), and are measured in units of mGy and mGy-cm, respectively. These indicators are not patient dose, but values generated from the CT scanner acquisition factors. The report includes radiation exposure data for exposures received during this examination. COMPARISON: None FINDINGS: There is no evidence of acute intracranial hemorrhage, extra-axial collection, mass effect, midline s hift, herniation or hydrocephalus. Increased prominence of the ventricles, sulci and cisterns consistent with the sequelae of atrophic c ortical volume loss. The waters-white differentiation is intact. Moderate diffuse confluent periventricular and subcortical white matter hypoattenuation is nonspecifi c but may be related to small vessel ischemic disease. Sphenoid mucosal sinus disease. The remaining visualized paranasal sinuses and mastoid air cells are clear. The surrounding soft tissues and osseous structures are unremarkable. Endotracheal tube and enteric catheter noted. IMPRESSION: 1. No acute intracranial abnormality. 2. 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 Radiation optimization: All CT scans at this facility use at least one of these dose optimization mando hniques: automated exposure control mA and/or kV adjustment per patient size (includes targeted exam s where dose is matched to clinical indication) or iterative reconstruction.
[2025-01-29 02:07] LABS: Hematocrit 29.8 % (36.0-46.0); Hemoglobin 9.8 g/dL (12.2-16.2); Mean Corpuscular Hemoglobin 28.3 pg (28.0-32.0); Mean Corpuscular Volume 85.9 fL (80.0-100.0); Nucleated Red Blood Cells % 0.3 %
[2025-01-29 02:18] LABS: Alanine Aminotransferase 18 U/L (7-40); BUN/Creatinine Ratio 43.8 (10.0-20.0); Calcium 9.1 mg/dL (8.7-10.4); Carbon Dioxide 30 mmol/L (20-31); Magnesium 2.3 mg/dL (1.6-2.6); Total Protein 6.6 g/dL (5.7-8.2)
[2025-01-29 02:34] LABS: Albumin 2.8 g/dL (3.2-4.8); Alkaline Phosphatase 449 U/L (46-116); Bilirubin, Total 1.3 mg/dL (0.2-1.0); Blood Urea Nitrogen 64 mg/dL (9-23); Glucose 154 mg/dL (74-106)
[2025-01-29 02:36] LABS: Anion Gap 12 (5-15); Chloride 105 mmol/L (98-107); Potassium 3.6 mmol/L (3.5-5.1)
[2025-01-29 02:43] LABS: Sodium 147 mmol/L (136-145)
[2025-01-29 03:58] LABS: Hematocrit 29.2 % (36.0-46.0); Hemoglobin 9.7 g/dL (12.2-16.2); Mean Corpuscular Hemoglobin 28.4 pg (28.0-32.0); Mean Corpuscular Volume 85.3 fL (80.0-100.0); Nucleated Red Blood Cells % 0.3 %
[2025-01-29 04:14] LABS: Chloride 105 mmol/L (98-107)
[2025-01-29 04:15] LABS: Anion Gap 13 (5-15); Calcium 9.2 mg/dL (8.7-10.4); Carbon Dioxide 29 mmol/L (20-31)
[2025-01-29 04:20] LABS: Glucose 135 mg/dL (74-106); Potassium 3.4 mmol/L (3.5-5.1); Sodium 147 mmol/L (136-145)
[2025-01-29 04:32] LABS: BUN/Creatinine Ratio 41.4 (10.0-20.0); Blood Urea Nitrogen 60 mg/dL (9-23)
[2025-01-29] MEDS: POTASSIUM CHL 20MEQ/100ML 100 ML IV ONE (05:42)
--- NOTE | 2025-01-29 05:55 | DVH ---
CHEST RADIOGRAPH Indication: Mechanical ventilation Technique: Single frontal view of the chest was obtained COMPARISON: XY CHEST PORTABLE on DOS: 01/28/25, XY CHEST PORTABLE on DOS: 01/27/25, XY CHEST PORTABLE o n DOS: 01/27/25, XY CHEST PORTABLE on DOS: 01/26/25, XY CHEST XRAY 1 VIEW on DOS: 01/25/25 FINDINGS: Lines and Tubes: Slight interval retraction of the endotracheal tube such that the tip now projects a pproximately 3.2 cm above the level of the vijay. Enteric catheter unchanged. Lungs: Persistent left pleural effusion and basilar pulmonary airspace disease. Near-complete interv al resolution of right lower lung zone atelectasis/scarring. No pneumothorax. Cardiomediastinal contours: Unremarkable Bones: Unremarkable IMPRESSION: 1. Slight interval retraction of the endotracheal tube such that the tip now projects approximately 3 .2 cm above the level of the vijay. Enteric catheter unchanged. 2. Near complete interval resolution of right lower lung zone atelectasis/scarring. 3. Persistent left pleural effusion and basilar pulmonary airspace disease.
--- NOTE | 2025-01-29 06:14 | DVH ---
Exam: CT CT AB PEL WO CON-NO ORAL OR IV History: sTOOL IN taty DRAIN Comparison Study: CT CT AB PEL WO CON-NO ORAL OR IV on DOS: 01/12/25 Technique: Multidetector spiral CT of the abdomen was performed from lung bases to pubic symphysis. I maging was performed without IV contrast. Axial, coronal and sagittal multiplanar reformats were obta ined from the axial data set by the technologist. Radiation Dose : 1. Abdomen/Pelvis: CTDIvol 12.75 mGy, DLP 730.81 mGy*cm. Findings: Evaluation of solid organs is limited due to lack of intravenous contrast use. Lung Bases: New small left pleural effusion with adjacent atelectasis. Right posterior basilar atelec tasis. Liver: The liver is normal in size. No focal lesions. Gallbladder and Biliary Tree: Moderate pericholecystic edema. Spleen: New moderate perisplenic fluid may represent ascites versus hematoma. Pancreas: The pancreas is grossly normal in appearance. Adrenal Glands: Unremarkable Kidneys: Moderate bilateral renal atrophy. Kidneys are otherwise grossly normal without calculi or hy dronephrosis. Bladder: Grossly unremarkable for degree of distention. Perez catheter. Bowel: The stomach is grossly normal in appearance. Interval placement of enteric catheter terminatin g in the gastric antrum. New anastomotic bowel sutures within the central abdomen. The appendix is no t visualized; however, no secondary findings of acute appendicitis identified. Ascites: Interval placement of bilateral mohamud-Steele percutaneous abdominal drains within the centr al and lower abdomen. Small collections of pneumoperitoneum noted within the left abdomen, decreased when compared to the prior exam, in addition to small volume abdominopelvic ascites. Lymphadenopathy: No mesenteric, retroperitoneal or periportal lymphadenopathy. Abdominal Wall and Mesentery: Unremarkable. Vasculature: The visualized abdominal aorta is normal in size and caliber. Atherosclerotic vascular c alcifications. Evaluation of abdominal and pelvic vessels is limited due to lack of intravenous cont rast. Pelvic Organs: Unremarkable Musculoskeletal: No aggressive focal bony lesions, acute fractures or dislocation. IMPRESSION: 1. Interval placement of bilateral mohamud-Steele percutaneous abdominal drains within the central and lower abdomen. Anastomotic bowel sutures noted. 2. Small collections of pneumoperitoneum noted within the left abdomen, decreased when compared to th e prior exam, in addition to small volume abdominopelvic ascites. 3. New small left pleural effusion with adjacent atelectasis. 4. New moderate perisplenic fluid may represent ascites versus hematoma. 5. Moderate pericholecystic edema. Radiation optimization: All CT scans at this facility use at least one of these dose optimization mando hniques: automated exposure control mA and/or kV adjustment per patient size (includes targeted exam s where dose is matched to clinical indication) or iterative reconstruction.
--- NOTE | 2025-01-29 10:09 | DVHPN2 ---
Progress Note Date Seen: Jan 29, 2025 Has the PT tested + for MRSA If YES, has PT been informed?: No Medical Necessity Reason Pt with a Central, PICC or Fol: Yes The following are medically ne: Central Line, Leach Catheter Reason for leach catheter: Strict I&O Objective vital signs Vital Sign Date Time Temp Pulse Resp B/P (MAP) Pulse Ox O2 Delivery O2 Flow Rate FiO2 01/29/25 08:14 104 18 150/34 (72) 98 30 01/29/25 08:00 Mechanical Ventilator+ 01/29/25 06:00 99.3 210.7 Total Intake and Output 01/28/25 01/28/25 01/29/25 14:59 22:59 06:59 Intake Total 100 ml 894 ml 400 ml Output Total 1325 ml 1090 ml Balance 100 ml -431 ml -690 ml medications Current Medications Medications Dose Ordered Sig/Isaura Route Start Time Stop Time Status Last Admin Dose Admin Pantoprazole Sodium 40 mg DAILY IV 01/13/25 10:00 01/28/25 11:06 40 MG Cefazolin Sodium 50 ml @ 100 mls/hr Q8HR IV 01/13/25 14:00 UNV Midazolam HCl 50 ml @ 1 mls/hr Q24H IV 01/13/25 13:30 01/22/25 06:34 5 MLS/HR Norepinephrine Bitartrate 250 ml @ 3.75 mls/hr Q24H IV 01/13/25 13:30 01/21/25 17:20 3.75 MLS/HR Vasopressin 20 units/Sodium Chloride 100 ml @ 9 mls/hr Q11H7M IV 01/13/25 18:45 UNV Potassium Chloride 100 ml @ 50 mls/hr Q2H IV 01/16/25 12:45 01/16/25 18:44 UNV Meropenem 50 ml @ 17 mls/hr Q12H IV 01/20/25 03:00 01/29/25 03:05 17 MLS/HR Vancomycin HCl 100 ml @ 100 mls/hr DAILY@1200 IV 01/20/25 12:00 UNV Micafungin Sodium 100 mg/Sodium Chloride 100 ml @ 100 mls/hr DAILY IV 01/21/25 10:00 01/28/25 11:06 100 MLS/HR Fentanyl Citrate 250 ml @ 2.5 mls/hr Q24H IV 01/22/25 19:00 01/25/25 14:42 20 MLS/HR Enteral Nutritional Formula 1,000 ml 50ML/HR GT 01/26/25 08:15 01/26/25 14:00 1,000 ML Sodium Chloride 10 ml QSHIFT@10,22 IV 01/26/25 22:00 01/28/25 21:35 10 ML Diagnostic Test (Pha) 1 strip Q6HR 01/26/25 18:00 01/29/25 05:53 1 STRIP Insulin Human Regular Q6HR SC 01/26/25 18:00 Dextrose 50 ml UD PRN IV 01/26/25 14:00 01/27/25 12:50 50 ML Purified Water 200 ml Q4HR GT 01/28/25 09:45 01/28/25 21:35 200 ML Furosemide 40 mg DAILY IV 01/29/25 10:00 laboratory and microbiology Laboratory Tests 01/29/25 03:20 Test 01/29/25 03:20 Range/Units Serum Glucose 135 H 74-106 mg/dL Problem List/Assessment/Plan Problem List/Assessment/Plan 01/14/25 afebrile, low dose BP support, received transfusion, I believe her decreased hematocrit is due to hemodilution. abdomen non distended, soft, wound clean and well approximated, drainage serous . remains intubated and sedated 01/16/25 ALKALOSIS, ABDOMEN NON DISTENDED, SOFT, DRAINAGE SEROUS, WOUND CLEAN AND WELL APPROXIMATED 01/17/25 improved, thrombocytopenia possibly made worse by Fluconazole,will DC, abdomen non distended, wound well approximated without infection, CARMEN drainage serous, CVP 6, good urine output. 01/18/25 abg reviewed, ,abdomen soft, non distended, CARMEN drainage clear serous, no bowel activity, febrile, urine output ok, continues with thrombocytopenia,pt and inr slightly elevated. prognosis grave. 01/20/25remains sedated on ventilator, abdomen soft, non distended, faint bowel sounds auscultated by nurse, wound clean and well approximated, CARMEN drainage clear serous. continues with thrombocytopenia, still behind on intravascular volume( BUN and Creatinine elevated), i would give more IV fluids and DC vancomycin. 01/25/25 afebrile, normotensive, wound clean and well approximated, CARMEN drainage serous, abdomen non distended, soft, gastrografin small bowel series shows non obstructed GI tract and no evidence of extravasation. It is OK to initiate enteric feedings. 01/29/25 16 DAYS POST OPERATIVELY TRHE CARMEN DRAINAGE WHICH HAD CONSISTENTLY BEEN SEROUS OR SERO SANGUINEOUS HAS BECOME "DIRTY" BROWNISH DISCOLORATION, HER WOUND IS CLEAN AND WELL APPROXIMATED AND HER ABDOMEN IS SOFT AND NON DISTENDED, CT SCAN SHOWS SO0ME FLUID AND ACCUMULATION OF FLUID AROUND THE SPLEEN, WILL REQUEST CT GUIDED ASPIRATION OF SAME, WILL ORDER IRRIGATION OF DRAINS. SHE SI AFEBRILE AND MAINTAINS NORMAL BLOOD PRESSURE, HER WBC IS NORMAL. Plan discussed with: Son, Other Dietary Evaluation Review Comments: Nutrition Recommendation: 1) TPN to meet at least 75% estimated needs within 7 days 2) Monitor NPO status, lab values, wt trend, I/O Expected Outcomes/Goals: To meet >75% estimated needs Lab values to improve Fu 2-3 days MELVA RAMESH MD Jan 29, 2025 10:09
[2025-01-29] MEDS: FUROSEMIDE 40 MG/4 ML VIAL IV SCH (12:28)
--- NOTE | 2025-01-29 14:32 | DVHPN2 ---
"Subjective The patient is seen and examined at bedside. Remained intubated. Reviewed: Care Plan, H&P Changes from previous H/P or p: No Changes Gastrointestinal: Abdominal Pain Objective Vitals Vital Signs Date Time Temp Pulse Resp B/P (MAP) Pulse Ox O2 Delivery O2 Flow Rate FiO2 01/29/25 14:03 103 26 149/44 (79) 99 30 01/29/25 13:01 98.1 208.6 01/29/25 08:00 Mechanical Ventilator+ Intake/Output Intake and Output 01/29/25 07:00 Intake Total 1394 ml Output Total 2415 ml Balance -1021 ml Intake Oral 800 ml IV Total 134 ml Tube Feeding 460 ml Output Urine Total 2350 ml Drainage Total 65 ml General Appearance: Other (Intubated, on vent, unable to exam) HEENT: Atraumatic, Mucous membr. moist/pink Neck: Supple Lungs: Clear to auscultation, Normal air movement, Other (Ventilation support) Cardiovascular: Regular rate, Normal S1, Normal S2, No murmurs, Gallops, Rubs Abdomen: Normal bowel sounds, Soft, No tenderness Medications Current Medications Medications Dose Ordered Sig/Isaura Route Start Time Stop Time Status Last Admin Dose Admin Pantoprazole Sodium 40 mg DAILY IV 01/13/25 10:00 01/29/25 12:27 40 MG Cefazolin Sodium 50 ml @ 100 mls/hr Q8HR IV 01/13/25 14:00 UNV Midazolam HCl 50 ml @ 1 mls/hr Q24H IV 01/13/25 13:30 01/22/25 06:34 5 MLS/HR Norepinephrine Bitartrate 250 ml @ 3.75 mls/hr Q24H IV 01/13/25 13:30 01/21/25 17:20 3.75 MLS/HR Vasopressin 20 units/Sodium Chloride 100 ml @ 9 mls/hr Q11H7M IV 01/13/25 18:45 UNV Potassium Chloride 100 ml @ 50 mls/hr Q2H IV 01/16/25 12:45 01/16/25 18:44 UNV Meropenem 50 ml @ 17 mls/hr Q12H IV 01/20/25 03:00 01/29/25 03:05 17 MLS/HR Vancomycin HCl 100 ml @ 100 mls/hr DAILY@1200 IV 01/20/25 12:00 UNV Micafungin Sodium 100 mg/Sodium Chloride 100 ml @ 100 mls/hr DAILY IV 01/21/25 10:00 01/29/25 12:28 100 MLS/HR Fentanyl Citrate 250 ml @ 2.5 mls/hr Q24H IV 01/22/25 19:00 01/25/25 14:42 20 MLS/HR Enteral Nutritional Formula 1,000 ml 50ML/HR GT 01/26/25 08:15 01/26/25 14:00 1,000 ML Sodium Chloride 10 ml QSHIFT@10,22 IV 01/26/25 22:00 01/29/25 12:28 10 ML Diagnostic Test (Pha) 1 strip Q6HR 01/26/25 18:00 01/29/25 12:28 1 STRIP Insulin Human Regular Q6HR SC 01/26/25 18:00 Dextrose 50 ml UD PRN IV 01/26/25 14:00 01/27/25 12:50 50 ML Purified Water 200 ml Q4HR GT 01/28/25 09:45 01/28/25 21:35 200 ML Furosemide 40 mg DAILY IV 01/29/25 10:00 01/29/25 12:28 40 MG Laboratory Results Laboratory Tests 01/29/25 03:20 Chemistry Test 01/29/25 01:00 01/29/25 03:20 Albumin 2.8 g/dL (3.2-4.8) L Calcium Level 9.1 mg/dL (8.7-10.4) 9.2 mg/dL (8.7-10.4) Magnesium Level 2.3 mg/dL (1.6-2.6) Total Protein 6.6 g/dL (5.7-8.2) LFT Test 01/29/25 01:00 Alanine Aminotransferase (ALT) 18 U/L (7-40) Alkaline Phosphatase 449 U/L (46-116) H Aspartate Amino Transferase (AST) 45 U/L (13-40) H Total Bilirubin 1.3 mg/dL (0.2-1.0) H Urinalysis Test 01/14/25 02:00 Urine Color Yellow (Yellow) Urine Clarity Turbid (Clear) H Urine pH 6.0 (5.0-9.0) Urine Specific [place] 1.016 (1.001-1.035) Urine Protein 1+ (Negative) H Urine Ketones Trace (Negative) Urine Blood 1+ /uL (Negative) H Urine Nitrite Negative (Negative) Urine Bilirubin Negative (Negative) Urine Urobilinogen Normal mg/dL (Negative) Urine Leukocyte Esterase Negative /uL (Negative) Urine RBC 10 /hpf (0 - 4) Urine Microscopic WBC 2 /HPF (0-5) Urine Squamous Epithelial Cells Few /hpf (<5) Urine Amorphous Crystals Few /hpf (None Seen) Urine Bacteria None seen /hpf (None Seen) Urine Creatinine 34.09 mg/dL (30.0-125.0) Urine Protein/Creatinine Ratio 3.85 Urine Sodium 76 mmol/L (40-220) Urine Glucose Normal mg/dL (Normal) Urine Total Protein 131.1 mg/dL (1-14) H Microbiology Microbiology Date/Time Source Procedure Growth Status 01/28/25 12:55 Voided Urine Urine Culture - Preliminary Resulted 01/20/25 00:57 Blood Blood Culture - Final NO GROWTH AFTER 5 DAYS OF INCUBATION. Complete 01/13/25 17:10 Nose MRSA Screen - Final Complete 01/13/25 13:05 Sputum Gram Stain - Final Complete 01/13/25 13:05 Sputum Respiratory Culture - Final Complete 01/13/25 11:42 Peritoneal Fluid Gram Stain - Final Complete 01/13/25 11:42 Peritoneal Fluid Anaerobic Culture - Final Complete 01/13/25 11:42 Aerobic Culture - Final Escherichia coli Klebsiella pneumoniae Complete Labs and/or images reviewed: Labs reviewed by me Assessment/Plan Assessment/Plan NEURO: Acute metabolic encephalopathy secondary to acute hypoxic respiratory failure Status post intubation RASS score: -3 CARDIOVASCULAR: Septic shock secondary to perforation of the hollow viscus Paroxysmal atrial fibrillation with secondary hypercoagulable state Chronic diastolic heart failure with preserved ejection fraction - echo demonstrated EF 65%, mild LV diastolic dysfunction - Chest xray demonstrated bibasilar atelectasis - [id number] score more than 5 - hold Lovenox because of low hemoglobin PULMONARY: Acute hypoxic respiratory failure secondary to bilateral pleural effusion Volume overload due to chronic HFpEF - chest x-ray demonstrated bilateral hazy opacities GASTROINTESTINAL: Perforation of the small bowel, status post exploratory laparotomy Transaminitis secondary to shock - Small-bowel series showed non obstructing bowel gas pattern. GENITOURINARY: ISRRAEL on CKD secondary to shock/VMN ENDOCRINE: History of hypothyroidism Type 2 diabetes mellitus, hemoglobin A1c 8.2 Few episodes of hypoglycemia - Mild sliding scale of insulin METABOLIC: Hyperkalemia secondary to ISRRAEL Moderate protein calorie malnutrition, albumin 2.6 Anion gap metabolic acidosis secondary to bowel ischemia leading to lactic acidosis Contraction alkalosis HEME: Acute on chronic anemia secondary to hemodilution/post surgical Severe thrombocytopenia likely secondary to HIT Possible heparin-induced thrombocytopenia type 2 Acute DVT of right upper extremity - 3 unit of PRBC and platelet given since the surgery INFECTIOUS DISEASE: Sepsis with septic shock secondary to perforation of the small bowel - respiratory culture negative, peritoneal fluid culture demonstrated E coli, Klebsiella - continue IV meropenem and IV micafungin DIET: Tube feeding DVT prophylax: Hold GI prophylaxis: Pantoprazole Bowel regimen: Code status: Full code LINES/DRAINS/ACCESS: ETT: Intubated on 01/14/25 IV access: Rt upper thigh PICC placed on 01/26/2025 Drips: Versed and fentanyl Perez catheter: Placed on 0 10/03 DISPOSITION: ICU Continue CPAP trial. Today, patient is tracking but tired out real quick. will continue to try again. Critical care spent for this case today is 37 minutes. This medical document was created using an electronic medical record system with [employer] | [employer] computerized dictation system. Although this document has been carefully reviewed, there may still be some phonetic and typographical errors. These areas are purely typographical due to imperfections of the software programs, and do not reflect any compromise in the patient's medical care. Plan discussed with: Daughter, Other (RN) Date of Service: Jan 29, 2025 Billing Provider: LEANN MORIN MD Common Visit Codes: [id number] INP/OBS CARE(HIGH) LEANN MORIN MD Jan 29, 2025 14:32"
--- NOTE | 2025-01-29 16:21 | DVHPN2 ---
Progress Note Date Seen: Jan 29, 2025 Has the PT tested + for MRSA If YES, has PT been informed?: No Medical Necessity Reason Pt with a Central, PICC or Fol: Yes The following are medically ne: Central Line, Leach Catheter Reason for leach catheter: Strict I&O Subjective Patient reports: Other (intubated ) Review of Systems: Deferred Objective vital signs Vital Sign Date Time Temp Pulse Resp B/P (MAP) Pulse Ox O2 Delivery O2 Flow Rate FiO2 01/29/25 15:47 104 20 134/59 (84) 99 30 01/29/25 13:01 98.1 208.6 01/29/25 08:00 Mechanical Ventilator+ Total Intake and Output 01/28/25 01/28/25 01/29/25 14:59 22:59 06:59 Intake Total 100 ml 894 ml 400 ml Output Total 1325 ml 1090 ml Balance 100 ml -431 ml -690 ml medications Current Medications Medications Dose Ordered Sig/Isaura Route Start Time Stop Time Status Last Admin Dose Admin Pantoprazole Sodium 40 mg DAILY IV 01/13/25 10:00 01/29/25 12:27 40 MG Cefazolin Sodium 50 ml @ 100 mls/hr Q8HR IV 01/13/25 14:00 UNV Midazolam HCl 50 ml @ 1 mls/hr Q24H IV 01/13/25 13:30 01/22/25 06:34 5 MLS/HR Norepinephrine Bitartrate 250 ml @ 3.75 mls/hr Q24H IV 01/13/25 13:30 01/21/25 17:20 3.75 MLS/HR Vasopressin 20 units/Sodium Chloride 100 ml @ 9 mls/hr Q11H7M IV 01/13/25 18:45 UNV Potassium Chloride 100 ml @ 50 mls/hr Q2H IV 01/16/25 12:45 01/16/25 18:44 UNV Meropenem 50 ml @ 17 mls/hr Q12H IV 01/20/25 03:00 01/29/25 03:05 17 MLS/HR Vancomycin HCl 100 ml @ 100 mls/hr DAILY@1200 IV 01/20/25 12:00 UNV Micafungin Sodium 100 mg/Sodium Chloride 100 ml @ 100 mls/hr DAILY IV 01/21/25 10:00 01/29/25 12:28 100 MLS/HR Fentanyl Citrate 250 ml @ 2.5 mls/hr Q24H IV 01/22/25 19:00 01/25/25 14:42 20 MLS/HR Enteral Nutritional Formula 1,000 ml 50ML/HR GT 01/26/25 08:15 01/26/25 14:00 1,000 ML Sodium Chloride 10 ml QSHIFT@10,22 IV 01/26/25 22:00 01/29/25 12:28 10 ML Diagnostic Test (Pha) 1 strip Q6HR 01/26/25 18:00 01/29/25 12:28 1 STRIP Insulin Human Regular Q6HR SC 01/26/25 18:00 Dextrose 50 ml UD PRN IV 01/26/25 14:00 01/27/25 12:50 50 ML Purified Water 200 ml Q4HR GT 01/28/25 09:45 01/28/25 21:35 200 ML Furosemide 40 mg DAILY IV 01/29/25 10:00 01/29/25 12:28 40 MG Examination: GENERAL:Abnormal, LUNGS:Abnormal, MSK:Abnormal, NEURO:Abnormal laboratory and microbiology Laboratory Tests 01/29/25 03:20 Test 01/29/25 03:20 Range/Units Serum Glucose 135 H 74-106 mg/dL Microbiology Date/Time Source Procedure Growth Status 01/28/25 12:55 Voided Urine Urine Culture - Preliminary Resulted 01/20/25 00:57 Blood Blood Culture - Final NO GROWTH AFTER 5 DAYS OF INCUBATION. Complete 01/13/25 17:10 Nose MRSA Screen - Final Complete 01/13/25 13:05 Sputum Gram Stain - Final Complete 01/13/25 13:05 Sputum Respiratory Culture - Final Complete 01/13/25 11:42 Peritoneal Fluid Gram Stain - Final Complete 01/13/25 11:42 Peritoneal Fluid Anaerobic Culture - Final Complete 01/13/25 11:42 Aerobic Culture - Final Escherichia coli Klebsiella pneumoniae Complete Problem List/Assessment/Plan Problem List/Assessment/Plan Acute kidney injury superimposed Chronic Kidney Disease secondary hemodynamic mediated Acute respiratory failure, patient intubated on ventilator Acute perforation of the abdomen / bowel ischemia s/p exlap History of atrial fibrillation previously on anticoagulation 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 , RA + Diabetes mellitus type 2 Hyperglycemia Hypophosphatemia hyperkalemia-----> hypokalemia Dropping hemoglobin Anemia due to blood loss Thrombocytopenia, improving Chest x-ray consistent with pulmonary edema recs Resume Lasix IV daily Free water for sodium Plan discussed with: Patient, Other My Orders My Orders Orders - RAHEL MONTGOMERY MD Procedure Category Date Status Time Furosemide Injection PHA 01/30/25 Verified (Lasix Injection) 10:00 Dietary Evaluation Review Comments: Nutrition Recommendation: 1) TPN to meet at least 75% estimated needs within 7 days 2) Monitor NPO status, lab values, wt trend, I/O Expected Outcomes/Goals: To meet >75% estimated needs Lab values to improve Fu 2-3 days CC Plasma Assessment Blood Product Administration S: [id number] RAHEL MONTGOMERY MD Jan 29, 2025 16:21
--- NOTE | 2025-01-29 20:07 | DVHPN2 ---
Subjective DOS: 01/29/2025 Patient seen and examined at bedside. Sedated, intubated on mechanical ventilator. Overnight events reviewed HPI: A 80-year-old woman with past medical history of diabetes mellitus who presented to the ED on 01/13/25 with c/o abdominal pain x4 days. Patient reported 8 - 9/10 pain that was sharp and constant, throughout her abdomen. She did note pain medications make it better. Patient admitted to being noncompliant with her Eliquis for the past 2 weeks. Patient denied any fever, chills, chest pain, shortness of breath, or other acute complaints. She reported falling on her left side on January 06, 2025. Patient does not use home oxygen. Patient was admitted for further care, subsequently found to have perforated bowel and underwent exploratory laparotomy with repair of bowel perforation. Pulmonary consultation is requested for evaluation and management due to acute hypoxic respiratory failure requiring mechanical ventilator. Past Medical History: Diabetes mellitus Past Surgical History: , Hernia Repair Medications: Reviewed. Allergies: No known drug allergies. Family History: Arthritis. No family history of premature CAD. No family history of lung disorders. Social History: Nonsmoker. No alcohol or illicit drug use. Reviewed: Care Plan, H&P Changes from previous H/P or p: No Changes Gastrointestinal: Abdominal Pain Objective Vitals Vital Signs Date Time Temp Pulse Resp B/P (MAP) Pulse Ox O2 Delivery O2 Flow Rate FiO2 01/29/25 18:07 109 23 146/57 (86) 99 30 01/29/25 17:00 98.2 208.8 01/29/25 10:00 Mechanical Ventilator+ Intake/Output Intake and Output 01/29/25 07:00 Intake Total 1394 ml Output Total 2415 ml Balance -1021 ml Intake Oral 800 ml IV Total 134 ml Tube Feeding 460 ml Output Urine Total 2350 ml Drainage Total 65 ml General Appearance: Other (Intubated, on vent, unable to exam) HEENT: Atraumatic, Mucous membr. moist/pink Neck: Supple Lungs: Clear to auscultation, Normal air movement, Other (Ventilation support) Cardiovascular: Regular rate, Normal S1, Normal S2, No murmurs, Gallops, Rubs Abdomen: Normal bowel sounds, Soft, No tenderness Medications Current Medications Medications Dose Ordered Sig/Isaura Route Start Time Stop Time Status Last Admin Dose Admin Pantoprazole Sodium 40 mg DAILY IV 01/13/25 10:00 01/29/25 12:27 40 MG Cefazolin Sodium 50 ml @ 100 mls/hr Q8HR IV 01/13/25 14:00 UNV Midazolam HCl 50 ml @ 1 mls/hr Q24H IV 01/13/25 13:30 01/22/25 06:34 5 MLS/HR Norepinephrine Bitartrate 250 ml @ 3.75 mls/hr Q24H IV 01/13/25 13:30 01/21/25 17:20 3.75 MLS/HR Vasopressin 20 units/Sodium Chloride 100 ml @ 9 mls/hr Q11H7M IV 01/13/25 18:45 UNV Potassium Chloride 100 ml @ 50 mls/hr Q2H IV 01/16/25 12:45 01/16/25 18:44 UNV Meropenem 50 ml @ 17 mls/hr Q12H IV 01/20/25 03:00 01/29/25 16:40 17 MLS/HR Vancomycin HCl 100 ml @ 100 mls/hr DAILY@1200 IV 01/20/25 12:00 UNV Micafungin Sodium 100 mg/Sodium Chloride 100 ml @ 100 mls/hr DAILY IV 01/21/25 10:00 01/29/25 12:28 100 MLS/HR Fentanyl Citrate 250 ml @ 2.5 mls/hr Q24H IV 01/22/25 19:00 01/25/25 14:42 20 MLS/HR Enteral Nutritional Formula 1,000 ml 50ML/HR GT 01/26/25 08:15 01/26/25 14:00 1,000 ML Sodium Chloride 10 ml QSHIFT@10,22 IV 01/26/25 22:00 01/29/25 12:28 10 ML Diagnostic Test (Pha) 1 strip Q6HR 01/26/25 18:00 01/29/25 16:40 1 STRIP Insulin Human Regular Q6HR SC 01/26/25 18:00 Dextrose 50 ml UD PRN IV 01/26/25 14:00 01/27/25 12:50 50 ML Purified Water 200 ml Q4HR GT 01/28/25 09:45 01/28/25 21:35 200 ML Furosemide 20 mg DAILY IV 01/30/25 10:00 Laboratory Results Laboratory Tests 01/29/25 03:20 Chemistry Test 01/29/25 01:00 01/29/25 03:20 Albumin 2.8 g/dL (3.2-4.8) L Calcium Level 9.1 mg/dL (8.7-10.4) 9.2 mg/dL (8.7-10.4) Magnesium Level 2.3 mg/dL (1.6-2.6) Total Protein 6.6 g/dL (5.7-8.2) LFT Test 01/29/25 01:00 Alanine Aminotransferase (ALT) 18 U/L (7-40) Alkaline Phosphatase 449 U/L (46-116) H Aspartate Amino Transferase (AST) 45 U/L (13-40) H Total Bilirubin 1.3 mg/dL (0.2-1.0) H Urinalysis Test 01/14/25 02:00 Urine Color Yellow (Yellow) Urine Clarity Turbid (Clear) H Urine pH 6.0 (5.0-9.0) Urine Specific [place] 1.016 (1.001-1.035) Urine Protein 1+ (Negative) H Urine Ketones Trace (Negative) Urine Blood 1+ /uL (Negative) H Urine Nitrite Negative (Negative) Urine Bilirubin Negative (Negative) Urine Urobilinogen Normal mg/dL (Negative) Urine Leukocyte Esterase Negative /uL (Negative) Urine RBC 10 /hpf (0 - 4) Urine Microscopic WBC 2 /HPF (0-5) Urine Squamous Epithelial Cells Few /hpf (<5) Urine Amorphous Crystals Few /hpf (None Seen) Urine Bacteria None seen /hpf (None Seen) Urine Creatinine 34.09 mg/dL (30.0-125.0) Urine Protein/Creatinine Ratio 3.85 Urine Sodium 76 mmol/L (40-220) Urine Glucose Normal mg/dL (Normal) Urine Total Protein 131.1 mg/dL (1-14) H Microbiology Microbiology Date/Time Source Procedure Growth Status 01/28/25 12:55 Voided Urine Urine Culture - Preliminary Resulted 01/20/25 00:57 Blood Blood Culture - Final NO GROWTH AFTER 5 DAYS OF INCUBATION. Complete 01/13/25 17:10 Nose MRSA Screen - Final Complete 01/13/25 13:05 Sputum Gram Stain - Final Complete 01/13/25 13:05 Sputum Respiratory Culture - Final Complete 01/13/25 11:42 Peritoneal Fluid Gram Stain - Final Complete 01/13/25 11:42 Peritoneal Fluid Anaerobic Culture - Final Complete 01/13/25 11:42 Aerobic Culture - Final Escherichia coli Klebsiella pneumoniae Complete Assessment/Plan Assessment/Plan Impression: Acute hypoxic respiratory failure On mechanical ventilation Atelectasis Pleural effusion Acute metabolic encephalopathy secondary to acute hypoxic respiratory failure Pulmonary edema due to chronic heart failure with preserved ejection fraction Perforation of small bowel status post exploratory laparotomy Acute on chronic kidney disease secondary to shock, vasomotor nephropathy Anemia Sepsis with septic shock secondary to perforation of small bowel Plan: s/p intubation on mechanical ventilator CXR image and report reviewed. Devices in place. Near complete interval resolution right lower lobe opacities. Left pleural effusion, compressive atelectasis. ABG reviewed. Compensated On assist control with respiratory rate of 12, tidal volume 450, PEEP of 5, FiO2 of 30% Titrate FIO2 to keep O2 saturation above 92%. VAP bundle Daily ABG and CXR while intubated. Sedate for ventilatory synchrony Start pressors if necessary for hemodynamic support. On pressors for hemodynamic support. Titrate to keep MAP above 65 mmHg/SBP above 90 mmHg. Continue antibiotics. F/u cultures. Monitor renal function due to Acute kidney injury. Monitor electrolytes. Supplement as necessary. Supplement potassium Monitor magnesium Calcium at goal. Monitor hemoglobin, currently 9.7 grams/deciliter. Nutritional support. Accucheks, ISS. GI/DVT prophylaxis. Condition: Critical Prognosis: Poor given multiple comorbidities. Rest of plan per hospitalist and other consultants. A total of 35 minutes of critical care time was spent reviewing the patient record, examining the patient, making a diagnostic and therapeutic plan, discussing this plan with the medical personnel, following up on diagnostic studies and following the patient for clinical stability excluding any and all procedures. At least 50% of this time was spent in direct, [id number] contact. Thank you for allowing me to participate in this patient's care. Further recommendations will depend on patient's clinical course. Please do not hesitate to contact me if you have any questions or concerns. This medical document was created using an electronic medical record system with [employer] system. Although this document has been carefully reviewed, there may still be some phonetic and typographical errors. These areas are purely typographical due to imperfections of the software programs, and do not reflect any compromise in the patient's medical care. Plan discussed with: Other (MASHA Daniel) Date of Service: Jan 29, 2025 Billing Provider: MORA LANGSTON MD Common Visit Codes: [id number] INP/OBS CARE(HIGH), [id number] CARE 30-74 MIN MORA LANGSTON MD Jan 29, 2025 20:07
[2025-01-30] VITALS (45 sets, daily range): BP systolic 127–162; BP diastolic 26–88; PULSE 104–123; RESP 13–26; TEMP 97.2–100; O2SAT 96–100
[2025-01-30 03:05] LABS: Hematocrit 29.8 % (36.0-46.0); Hemoglobin 9.9 g/dL (12.2-16.2); Mean Corpuscular Hemoglobin 28.5 pg (28.0-32.0); Mean Corpuscular Volume 85.7 fL (80.0-100.0); Nucleated Red Blood Cells % 0.1 %
[2025-01-30 03:22] LABS: Alanine Aminotransferase 13 U/L (7-40); Anion Gap 17 (5-15); BUN/Creatinine Ratio 39.6 (10.0-20.0); Calcium 9.6 mg/dL (8.7-10.4); Carbon Dioxide 27 mmol/L (20-31); Glucose 98 mg/dL (74-106); Potassium 3.6 mmol/L (3.5-5.1); Total Protein 6.8 g/dL (5.7-8.2)
[2025-01-30 03:35] LABS: Albumin 2.9 g/dL (3.2-4.8); Alkaline Phosphatase 331 U/L (46-116); Bilirubin, Total 1.2 mg/dL (0.2-1.0); Blood Urea Nitrogen 59 mg/dL (9-23); Chloride 107 mmol/L (98-107); Sodium 151 mmol/L (136-145)
--- NOTE | 2025-01-30 05:46 | DVH ---
CHEST RADIOGRAPH Indication: INTUBATED Technique: Single frontal view of the chest was obtained Comparison: XY CHEST PORTABLE on DOS: 01/29/25, XY CHEST PORTABLE on DOS: 01/28/25, XY CHEST PORTABLE o n DOS: 01/27/25 IMPRESSION: Endotracheal tube approximately 3 cm from the vijay in stable position. Enteric tube tip in the preethi on of the stomach. Heart appears stable in size. The patient is rotated to the left. Possible small left pleural effusion. No pneumothorax or significant interval change.
[2025-01-30 07:31] LABS: Base Excess 3.9 mmol/L (-2.0-3.0)
[2025-01-30] MEDS: FUROSEMIDE 20 MG/2 ML VIAL IV SCH (09:06)
--- NOTE | 2025-01-30 10:45 | DVHPN2 ---
Progress Note Date Seen: Jan 30, 2025 Has the PT tested + for MRSA If YES, has PT been informed?: No Medical Necessity Reason Pt with a Central, PICC or Fol: Yes The following are medically ne: Central Line, Leach Catheter Reason for leach catheter: Strict I&O Objective vital signs Vital Sign Date Time Temp Pulse Resp B/P (MAP) Pulse Ox O2 Delivery O2 Flow Rate FiO2 01/30/25 09:35 112 22 148/59 (88) 99 30 01/30/25 08:00 Mechanical Ventilator+ 01/30/25 06:30 99.0 210.2 Total Intake and Output 01/29/25 01/29/25 01/30/25 15:00 23:00 07:00 Intake Total 150 ml 34 ml Output Total 1170 ml 600 ml Balance -1020 ml -566 ml medications Current Medications Medications Dose Ordered Sig/Isaura Route Start Time Stop Time Status Last Admin Dose Admin Pantoprazole Sodium 40 mg DAILY IV 01/13/25 10:00 01/30/25 09:05 40 MG Cefazolin Sodium 50 ml @ 100 mls/hr Q8HR IV 01/13/25 14:00 UNV Midazolam HCl 50 ml @ 1 mls/hr Q24H IV 01/13/25 13:30 01/22/25 06:34 5 MLS/HR Norepinephrine Bitartrate 250 ml @ 3.75 mls/hr Q24H IV 01/13/25 13:30 01/21/25 17:20 3.75 MLS/HR Vasopressin 20 units/Sodium Chloride 100 ml @ 9 mls/hr Q11H7M IV 01/13/25 18:45 UNV Potassium Chloride 100 ml @ 50 mls/hr Q2H IV 01/16/25 12:45 01/16/25 18:44 UNV Meropenem 50 ml @ 17 mls/hr Q12H IV 01/20/25 03:00 01/30/25 04:01 17 MLS/HR Vancomycin HCl 100 ml @ 100 mls/hr DAILY@1200 IV 01/20/25 12:00 UNV Micafungin Sodium 100 mg/Sodium Chloride 100 ml @ 100 mls/hr DAILY IV 01/21/25 10:00 01/30/25 09:08 100 MLS/HR Fentanyl Citrate 250 ml @ 2.5 mls/hr Q24H IV 01/22/25 19:00 01/25/25 14:42 20 MLS/HR Enteral Nutritional Formula 1,000 ml 50ML/HR GT 01/26/25 08:15 01/26/25 14:00 1,000 ML Sodium Chloride 10 ml QSHIFT@10,22 IV 01/26/25 22:00 01/30/25 09:06 10 ML Diagnostic Test (Pha) 1 strip Q6HR 01/26/25 18:00 01/30/25 06:00 1 STRIP Insulin Human Regular Q6HR SC 01/26/25 18:00 Dextrose 50 ml UD PRN IV 01/26/25 14:00 01/27/25 12:50 50 ML Purified Water 200 ml Q4HR GT 01/28/25 09:45 01/28/25 21:35 200 ML Furosemide 20 mg DAILY IV 01/30/25 10:00 01/30/25 09:06 20 MG laboratory and microbiology Laboratory Tests 01/30/25 02:26 Test 01/30/25 02:26 Range/Units Serum Glucose 98 74-106 mg/dL Problem List/Assessment/Plan Problem List/Assessment/Plan 01/14/25 afebrile, low dose BP support, received transfusion, I believe her decreased hematocrit is due to hemodilution. abdomen non distended, soft, wound clean and well approximated, drainage serous . remains intubated and sedated 01/16/25 ALKALOSIS, ABDOMEN NON DISTENDED, SOFT, DRAINAGE SEROUS, WOUND CLEAN AND WELL APPROXIMATED 01/17/25 improved, thrombocytopenia possibly made worse by Fluconazole,will DC, abdomen non distended, wound well approximated without infection, TATY drainage serous, CVP 6, good urine output. 01/18/25 abg reviewed, ,abdomen soft, non distended, TATY drainage clear serous, no bowel activity, febrile, urine output ok, continues with thrombocytopenia,pt and inr slightly elevated. prognosis grave. 01/20/25remains sedated on ventilator, abdomen soft, non distended, faint bowel sounds auscultated by nurse, wound clean and well approximated, TATY drainage clear serous. continues with thrombocytopenia, still behind on intravascular volume( BUN and Creatinine elevated), i would give more IV fluids and DC vancomycin. 01/25/25 afebrile, normotensive, wound clean and well approximated, TATY drainage serous, abdomen non distended, soft, gastrografin small bowel series shows non obstructed GI tract and no evidence of extravasation. It is OK to initiate enteric feedings. 01/29/25 16 DAYS POST OPERATIVELY TRHE TATY DRAINAGE WHICH HAD CONSISTENTLY BEEN SEROUS OR SERO SANGUINEOUS HAS BECOME "DIRTY" BROWNISH DISCOLORATION, HER WOUND IS CLEAN AND WELL APPROXIMATED AND HER ABDOMEN IS SOFT AND NON DISTENDED, CT SCAN SHOWS SO0ME FLUID AND ACCUMULATION OF FLUID AROUND THE SPLEEN, WILL REQUEST CT GUIDED ASPIRATION OF SAME, WILL ORDER IRRIGATION OF DRAINS. SHE SI AFEBRILE AND MAINTAINS NORMAL BLOOD PRESSURE, HER WBC IS NORMAL. 01/30/25 improved, awake, being weaned off vent. abdomen non distended, non tender, taty drainage clearing with irrigation Plan discussed with: Patient, Son, Other Dietary Evaluation Review Comments: Nutrition Recommendation: 1) TPN to meet at least 75% estimated needs within 7 days 2) Monitor NPO status, lab values, wt trend, I/O Expected Outcomes/Goals: To meet >75% estimated needs Lab values to improve Fu 2-3 days MELVA RAMESH MD Jan 30, 2025 10:45
--- NOTE | 2025-01-30 12:00 | DVHPN2 ---
Subjective The patient is seen and examined at bedside. Remained intubated. Did not past CPAP trial today. Reviewed: Care Plan, H&P Changes from previous H/P or p: No Changes Gastrointestinal: Abdominal Pain Objective Vitals Vital Signs Date Time Temp Pulse Resp B/P (MAP) Pulse Ox O2 Delivery O2 Flow Rate FiO2 01/30/25 11:53 113 25 127/26 (59) 99 30 01/30/25 10:00 Mechanical Ventilator+ 01/30/25 06:30 99.0 210.2 Intake/Output Intake and Output 01/30/25 07:00 Intake Total 184 ml Output Total 1770 ml Balance -1586 ml Intake Oral 0 ml IV Total 184 ml Tube Feeding 0 ml Output Urine Total 1700 ml Gastric Drainage Total 20 ml Drainage Total 50 ml General Appearance: Other (Intubated, on vent, unable to exam) HEENT: Atraumatic, Mucous membr. moist/pink Neck: Supple Lungs: Clear to auscultation, Normal air movement, Other (Ventilation support) Cardiovascular: Regular rate, Normal S1, Normal S2, No murmurs, Gallops, Rubs Abdomen: Normal bowel sounds, Soft, No tenderness Medications Current Medications Medications Dose Ordered Sig/Isaura Route Start Time Stop Time Status Last Admin Dose Admin Pantoprazole Sodium 40 mg DAILY IV 01/13/25 10:00 01/30/25 09:05 40 MG Cefazolin Sodium 50 ml @ 100 mls/hr Q8HR IV 01/13/25 14:00 UNV Midazolam HCl 50 ml @ 1 mls/hr Q24H IV 01/13/25 13:30 01/22/25 06:34 5 MLS/HR Norepinephrine Bitartrate 250 ml @ 3.75 mls/hr Q24H IV 01/13/25 13:30 01/21/25 17:20 3.75 MLS/HR Vasopressin 20 units/Sodium Chloride 100 ml @ 9 mls/hr Q11H7M IV 01/13/25 18:45 UNV Potassium Chloride 100 ml @ 50 mls/hr Q2H IV 01/16/25 12:45 01/16/25 18:44 UNV Meropenem 50 ml @ 17 mls/hr Q12H IV 01/20/25 03:00 01/30/25 04:01 17 MLS/HR Vancomycin HCl 100 ml @ 100 mls/hr DAILY@1200 IV 01/20/25 12:00 UNV Micafungin Sodium 100 mg/Sodium Chloride 100 ml @ 100 mls/hr DAILY IV 01/21/25 10:00 01/30/25 09:08 100 MLS/HR Fentanyl Citrate 250 ml @ 2.5 mls/hr Q24H IV 01/22/25 19:00 01/25/25 14:42 20 MLS/HR Enteral Nutritional Formula 1,000 ml 50ML/HR GT 01/26/25 08:15 01/26/25 14:00 1,000 ML Sodium Chloride 10 ml QSHIFT@,22 IV 01/26/25 22:00 01/30/25 09:06 10 ML Diagnostic Test (Pha) 1 strip Q6HR 01/26/25 18:00 01/30/25 11:29 1 STRIP Insulin Human Regular Q6HR SC 01/26/25 18:00 Dextrose 50 ml UD PRN IV 01/26/25 14:00 01/27/25 12:50 50 ML Purified Water 200 ml Q4HR GT 01/28/25 09:45 01/28/25 21:35 200 ML Laboratory Results Laboratory Tests 01/30/25 02:26 Chemistry Test 01/30/25 02:26 Albumin 2.9 g/dL (3.2-4.8) L Calcium Level 9.6 mg/dL (8.7-10.4) Total Protein 6.8 g/dL (5.7-8.2) LFT Test 01/30/25 02:26 Alanine Aminotransferase (ALT) 13 U/L (7-40) Alkaline Phosphatase 331 U/L (46-116) H Aspartate Amino Transferase (AST) 35 U/L (13-40) Total Bilirubin 1.2 mg/dL (0.2-1.0) H Urinalysis Test 01/14/25 02:00 Urine Color Yellow (Yellow) Urine Clarity Turbid (Clear) H Urine pH 6.0 (5.0-9.0) Urine Specific [place] 1.016 (1.001-1.035) Urine Protein 1+ (Negative) H Urine Ketones Trace (Negative) Urine Blood 1+ /uL (Negative) H Urine Nitrite Negative (Negative) Urine Bilirubin Negative (Negative) Urine Urobilinogen Normal mg/dL (Negative) Urine Leukocyte Esterase Negative /uL (Negative) Urine RBC 10 /hpf (0 - 4) Urine Microscopic WBC 2 /HPF (0-5) Urine Squamous Epithelial Cells Few /hpf (<5) Urine Amorphous Crystals Few /hpf (None Seen) Urine Bacteria None seen /hpf (None Seen) Urine Creatinine 34.09 mg/dL (30.0-125.0) Urine Protein/Creatinine Ratio 3.85 Urine Sodium 76 mmol/L (40-220) Urine Glucose Normal mg/dL (Normal) Urine Total Protein 131.1 mg/dL (1-14) H Blood Gas Results Test 01/30/25 07:25 Arterial Blood pH 7.511 (7.350-7.450) FiO2 % 30.0 Microbiology Microbiology Date/Time Source Procedure Growth Status 01/29/25 14:00 Sputum Gram Stain Pending Resulted 01/29/25 14:00 Sputum Respiratory Culture - Preliminary Resulted 01/29/25 10:40 Blood Blood Culture - Preliminary NO GROWTH AFTER 24 HOURS OF INCUBATION. Resulted 01/28/25 23:59 Peritoneal Fluid Gram Stain Pending Resulted 01/28/25 23:59 Peritoneal Fluid Body Fluid Culture - Preliminary Resulted 01/28/25 12:55 Voided Urine Urine Culture - Final Complete 01/13/25 17:10 Nose MRSA Screen - Final Complete Labs and/or images reviewed: Labs reviewed by me Assessment/Plan Assessment/Plan NEURO: Acute metabolic encephalopathy secondary to acute hypoxic respiratory failure Status post intubation RASS score: -3 CARDIOVASCULAR: Septic shock secondary to perforation of the hollow viscus Paroxysmal atrial fibrillation with secondary hypercoagulable state Chronic diastolic heart failure with preserved ejection fraction - echo demonstrated EF 65%, mild LV diastolic dysfunction - Chest xray demonstrated bibasilar atelectasis - [id number] score more than 5 - hold Lovenox because of low hemoglobin PULMONARY: Acute hypoxic respiratory failure secondary to bilateral pleural effusion Volume overload due to chronic HFpEF - chest x-ray demonstrated bilateral hazy opacities GASTROINTESTINAL: Perforation of the small bowel, status post exploratory laparotomy Transaminitis secondary to shock - Small-bowel series showed non obstructing bowel gas pattern. GENITOURINARY: ISRRAEL on CKD secondary to shock/VMN ENDOCRINE: History of hypothyroidism Type 2 diabetes mellitus, hemoglobin A1c 8.2 Few episodes of hypoglycemia - Mild sliding scale of insulin METABOLIC: Hyperkalemia secondary to ISRRAEL Moderate protein calorie malnutrition, albumin 2.6 Anion gap metabolic acidosis secondary to bowel ischemia leading to lactic acidosis Contraction alkalosis HEME: Acute on chronic anemia secondary to hemodilution/post surgical Severe thrombocytopenia likely secondary to HIT Possible heparin-induced thrombocytopenia type 2 Acute DVT of right upper extremity - 3 unit of PRBC and platelet given since the surgery INFECTIOUS DISEASE: Sepsis with septic shock secondary to perforation of the small bowel - respiratory culture negative, peritoneal fluid culture demonstrated E coli, Klebsiella - continue IV meropenem and IV micafungin DIET: Tube feeding DVT prophylax: Hold GI prophylaxis: Pantoprazole Bowel regimen: Code status: Full code LINES/DRAINS/ACCESS: ETT: Intubated on 01/14/25 IV access: Rt upper thigh PICC placed on 01/26/2025 Drips: Versed and fentanyl Perez catheter: Placed on 10/03 DISPOSITION: ICU Continue CPAP trial. Today, patient is tracking but tired out real quick. will continue to try again. Continue current management. Critical care spent for this case today is 38 minutes. This medical document was created using an electronic medical record system with [employer] direct computerized dictation system. Although this document has been carefully reviewed, there may still be some phonetic and typographical errors. These areas are purely typographical due to imperfections of the software programs, and do not reflect any compromise in the patient's medical care. Plan discussed with: Other (RN) Date of Service: Jan 30, 2025 Billing Provider: LEANN MORIN MD Common Visit Codes: [id number] CARE 30-74 MIN LEANN MORIN MD Jan 30, 2025 12:00
[2025-01-30 13:20] LABS: Base Excess 1.9 mmol/L (-2.0-3.0)
[2025-01-30] MEDS ORDERED: ACETAMINOPHEN 650 mg PER 20.3 mL UD GT PRN (16:00)
--- NOTE | 2025-01-30 18:04 | DVHPN2 ---
Progress Note Date Seen: Jan 30, 2025 Has the PT tested + for MRSA If YES, has PT been informed?: No Medical Necessity Reason Pt with a Central, PICC or Fol: Yes The following are medically ne: Central Line, Leach Catheter Reason for leach catheter: Strict I&O Subjective Patient reports: Other (Remains intubated) Review of Systems: Deferred Objective vital signs Vital Sign Date Time Temp Pulse Resp B/P (MAP) Pulse Ox O2 Delivery O2 Flow Rate FiO2 01/30/25 16:00 116 01/30/25 16:00 30 01/30/25 16:00 18 98 Mechanical Ventilator+ 01/30/25 16:00 100.0 137/35 (69) 212.0 Total Intake and Output 01/29/25 01/29/25 01/30/25 15:00 23:00 07:00 Intake Total 150 ml 51 ml Output Total 1170 ml 600 ml Balance -1020 ml -549 ml medications Current Medications Medications Dose Ordered Sig/Isaura Route Start Time Stop Time Status Last Admin Dose Admin Pantoprazole Sodium 40 mg DAILY IV 01/13/25 10:00 01/30/25 09:05 40 MG Cefazolin Sodium 50 ml @ 100 mls/hr Q8HR IV 01/13/25 14:00 UNV Midazolam HCl 50 ml @ 1 mls/hr Q24H IV 01/13/25 13:30 01/22/25 06:34 5 MLS/HR Norepinephrine Bitartrate 250 ml @ 3.75 mls/hr Q24H IV 01/13/25 13:30 01/21/25 17:20 3.75 MLS/HR Vasopressin 20 units/Sodium Chloride 100 ml @ 9 mls/hr Q11H7M IV 01/13/25 18:45 UNV Potassium Chloride 100 ml @ 50 mls/hr Q2H IV 01/16/25 12:45 01/16/25 18:44 UNV Meropenem 50 ml @ 17 mls/hr Q12H IV 01/20/25 03:00 01/30/25 14:37 17 MLS/HR Vancomycin HCl 100 ml @ 100 mls/hr DAILY@1200 IV 01/20/25 12:00 UNV Micafungin Sodium 100 mg/Sodium Chloride 100 ml @ 100 mls/hr DAILY IV 01/21/25 10:00 01/30/25 09:08 100 MLS/HR Fentanyl Citrate 250 ml @ 2.5 mls/hr Q24H IV 01/22/25 19:00 01/25/25 14:42 20 MLS/HR Enteral Nutritional Formula 1,000 ml 50ML/HR GT 01/26/25 08:15 01/26/25 14:00 1,000 ML Sodium Chloride 10 ml QSHIFT@10,22 IV 01/26/25 22:00 01/30/25 09:06 10 ML Diagnostic Test (Pha) 1 strip Q6HR 01/26/25 18:00 01/30/25 17:49 1 STRIP Insulin Human Regular Q6HR SC 01/26/25 18:00 Dextrose 50 ml UD PRN IV 01/26/25 14:00 01/27/25 12:50 50 ML Purified Water 200 ml Q4HR GT 01/28/25 09:45 01/28/25 21:35 200 ML Acetaminophen 650 mg Q6HP PRN GT 01/30/25 16:00 Examination: GENERAL:Abnormal, MSK:Abnormal, NEURO:Abnormal laboratory and microbiology Laboratory Tests 01/30/25 02:26 Test 01/30/25 02:26 Range/Units Serum Glucose 98 74-106 mg/dL Microbiology Date/Time Source Procedure Growth Status 01/29/25 14:00 Sputum Gram Stain - Final Resulted 01/29/25 14:00 Sputum Respiratory Culture - Preliminary Resulted 01/29/25 10:40 Blood Blood Culture - Preliminary NO GROWTH AFTER 24 HOURS OF INCUBATION. 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 , RA + Diabetes mellitus type 2 Hyperglycemia Hypophosphatemia hyperkalemia-----> hypokalemia Dropping hemoglobin Anemia due to blood loss Thrombocytopenia, improving Chest x-ray consistent with pulmonary edema recs D5W IV for sodium correction Holding Lasix today We will follow renal function closely Plan discussed with: Other My Orders My Orders Orders - RAHEL MONTGOMERY MD Procedure Category Date Status Time D5w 5% PHA 01/30/25 Transmitted 18:15 Dietary Evaluation Review Comments: Nutrition Recommendation: 1) TPN to meet at least 75% estimated needs within 7 days 2) Monitor NPO status, lab values, wt trend, I/O Expected Outcomes/Goals: To meet >75% estimated needs Lab values to improve Fu 2-3 days CC Plasma Assessment Blood Product Administration S: [id number] RAHEL MONTGOMERY MD Jan 30, 2025 18:04
[2025-01-30] MEDS: D5W 5% 1,000 ML IV SCH (18:17)
[2025-01-31] VITALS (50 sets, daily range): BP systolic 108–158; BP diastolic 16–58; PULSE 86–113; RESP 10–25; TEMP 97.9–99.7; O2SAT 98–100
[2025-01-31 03:43] LABS: Hematocrit 28.5 % (36.0-46.0); Hemoglobin 9.2 g/dL (12.2-16.2); Mean Corpuscular Hemoglobin 27.8 pg (28.0-32.0); Mean Corpuscular Volume 85.8 fL (80.0-100.0); Nucleated Red Blood Cells % 0.2 %
[2025-01-31 03:59] LABS: INR 1.19 (0.9-1.15); Partial Thromboplastin Time 28.2 SEC (24.5-34.5); Prothrombin Time 12.4 sec (9.3-11.8)
[2025-01-31 04:05] LABS: Alanine Aminotransferase 12 U/L (7-40); Anion Gap 14 (5-15); BUN/Creatinine Ratio 30.6 (10.0-20.0); Bilirubin, Total 1.1 mg/dL (0.2-1.0); Calcium 9.1 mg/dL (8.7-10.4); Carbon Dioxide 28 mmol/L (20-31); Total Protein 6.4 g/dL (5.7-8.2)
[2025-01-31 04:07] LABS: Albumin 2.7 g/dL (3.2-4.8); Alkaline Phosphatase 244 U/L (46-116); Blood Urea Nitrogen 49 mg/dL (9-23); Chloride 107 mmol/L (98-107); Glucose 180 mg/dL (74-106); Potassium 3.0 mmol/L (3.5-5.1); Sodium 149 mmol/L (136-145)
[2025-01-31] MEDS: POTASSIUM CHL 20MEQ/100ML 100 ML IV SCH (04:29)
--- NOTE | 2025-01-31 05:26 | DVH ---
CHEST RADIOGRAPH Indication: RESPIRATORY FAILURE Technique: Single frontal view of the chest was obtained COMPARISON: XY CHEST PORTABLE on DOS: 01/30/25, XY CHEST PORTABLE on DOS: 01/29/25, XY CHEST PORTABLE o n DOS: 01/28/25, XY CHEST PORTABLE on DOS: 01/27/25, XY CHEST PORTABLE on DOS: 01/27/25 FINDINGS: Lines and Tubes: Endotracheal tube in satisfactory position. Lungs: Left lower lobe airspace disease. Pleura: No effusion.No pneumothorax. Cardiomediastinal contours: Unremarkable Bones: Unremarkable IMPRESSION: Left lower lobe airspace disease
[2025-01-31 07:28] LABS: Base Excess 4.3 mmol/L (-2.0-3.0)
--- NOTE | 2025-01-31 08:39 | DVHPN2 ---
Subjective DOS: 01/30/2025 Patient seen and examined at bedside. Intubated on mechanical ventilator. Overnight events reviewed HPI: A 80-year-old woman with past medical history of diabetes mellitus who presented to the ED on 01/13/25 with c/o abdominal pain x4 days. Patient reported 8 - 9/10 pain that was sharp and constant, throughout her abdomen. She did note pain medications make it better. Patient admitted to being noncompliant with her Eliquis for the past 2 weeks. Patient denied any fever, chills, chest pain, shortness of breath, or other acute complaints. She reported falling on her left side on January 06, 2025. Patient does not use home oxygen. Patient was admitted for further care, subsequently found to have perforated bowel and underwent exploratory laparotomy with repair of bowel perforation. Pulmonary consultation is requested for evaluation and management due to acute hypoxic respiratory failure requiring mechanical ventilator. Past Medical History: Diabetes mellitus Past Surgical History: , Hernia Repair Medications: Reviewed. Allergies: No known drug allergies. Family History: Arthritis. No family history of premature CAD. No family history of lung disorders. Social History: Nonsmoker. No alcohol or illicit drug use. Reviewed: Care Plan, H&P Changes from previous H/P or p: No Changes Gastrointestinal: Abdominal Pain Objective Vitals Vital Signs Date Time Temp Pulse Resp B/P (MAP) Pulse Ox O2 Delivery O2 Flow Rate FiO2 01/31/25 07:59 106 20 134/48 (76) 98 30 01/31/25 06:00 99.7 211.5 01/31/25 05:45 Mechanical Ventilator+ Intake/Output Intake and Output 01/31/25 07:00 Intake Total 720 ml Output Total 950 ml Balance -230 ml IV Total 600 ml Tube Feeding 120 ml Output Urine Total 875 ml Drainage Total 75 ml General Appearance: Other (Intubated, on vent, unable to exam) HEENT: Atraumatic, Mucous membr. moist/pink Neck: Supple Lungs: Clear to auscultation, Normal air movement, Other (Ventilation support) Cardiovascular: Regular rate, Normal S1, Normal S2, No murmurs, Gallops, Rubs Abdomen: Normal bowel sounds, Soft, No tenderness Medications Current Medications Medications Dose Ordered Sig/Isaura Route Start Time Stop Time Status Last Admin Dose Admin Pantoprazole Sodium 40 mg DAILY IV 01/13/25 10:00 01/30/25 09:05 40 MG Cefazolin Sodium 50 ml @ 100 mls/hr Q8HR IV 01/13/25 14:00 UNV Midazolam HCl 50 ml @ 1 mls/hr Q24H IV 01/13/25 13:30 01/22/25 06:34 5 MLS/HR Norepinephrine Bitartrate 250 ml @ 3.75 mls/hr Q24H IV 01/13/25 13:30 01/21/25 17:20 3.75 MLS/HR Vasopressin 20 units/Sodium Chloride 100 ml @ 9 mls/hr Q11H7M IV 01/13/25 18:45 UNV Potassium Chloride 100 ml @ 50 mls/hr Q2H IV 01/16/25 12:45 01/16/25 18:44 UNV Vancomycin HCl 100 ml @ 100 mls/hr DAILY@1200 IV 01/20/25 12:00 UNV Micafungin Sodium 100 mg/Sodium Chloride 100 ml @ 100 mls/hr DAILY IV 01/21/25 10:00 01/30/25 09:08 100 MLS/HR Fentanyl Citrate 250 ml @ 2.5 mls/hr Q24H IV 01/22/25 19:00 01/25/25 14:42 20 MLS/HR Enteral Nutritional Formula 1,000 ml 50ML/HR GT 01/26/25 08:15 01/26/25 14:00 1,000 ML Sodium Chloride 10 ml QSHIFT@10,22 IV 01/26/25 22:00 01/30/25 21:55 10 ML Diagnostic Test (Pha) 1 strip Q6HR 01/26/25 18:00 01/31/25 05:25 1 STRIP Insulin Human Regular Q6HR SC 01/26/25 18:00 01/31/25 05:25 3 UNITS Dextrose 50 ml UD PRN IV 01/26/25 14:00 01/27/25 12:50 50 ML Purified Water 200 ml Q4HR GT 01/28/25 09:45 01/28/25 21:35 200 ML Acetaminophen 650 mg Q6HP PRN GT 01/30/25 16:00 Dextrose 1,000 ml @ 75 mls/hr [id number] IV 01/30/25 18:15 01/31/25 07:31 75 MLS/HR Laboratory Results Laboratory Tests 01/31/25 03:15 Chemistry Test 01/31/25 03:15 Albumin 2.7 g/dL (3.2-4.8) L Calcium Level 9.1 mg/dL (8.7-10.4) Magnesium Level 2.4 mg/dL (1.6-2.6) Total Protein 6.4 g/dL (5.7-8.2) Coagulation Test 01/31/25 03:15 Prothrombin Time 12.4 sec (9.3-11.8) H Prothrombin Time INR 1.19 (0.9-1.15) H Activated Partial Thromboplast Time 28.2 SEC (24.5-34.5) LFT Test 01/31/25 03:15 Alanine Aminotransferase (ALT) 12 U/L (7-40) Alkaline Phosphatase 244 U/L (46-116) H Aspartate Amino Transferase (AST) 27 U/L (13-40) Total Bilirubin 1.1 mg/dL (0.2-1.0) H Urinalysis Test 01/14/25 02:00 Urine Color Yellow (Yellow) Urine Clarity Turbid (Clear) H Urine pH 6.0 (5.0-9.0) Urine Specific [place] 1.016 (1.001-1.035) Urine Protein 1+ (Negative) H Urine Ketones Trace (Negative) Urine Blood 1+ /uL (Negative) H Urine Nitrite Negative (Negative) Urine Bilirubin Negative (Negative) Urine Urobilinogen Normal mg/dL (Negative) Urine Leukocyte Esterase Negative /uL (Negative) Urine RBC 10 /hpf (0 - 4) Urine Microscopic WBC 2 /HPF (0-5) Urine Squamous Epithelial Cells Few /hpf (<5) Urine Amorphous Crystals Few /hpf (None Seen) Urine Bacteria None seen /hpf (None Seen) Urine Creatinine 34.09 mg/dL (30.0-125.0) Urine Protein/Creatinine Ratio 3.85 Urine Sodium 76 mmol/L (40-220) Urine Glucose Normal mg/dL (Normal) Urine Total Protein 131.1 mg/dL (1-14) H Blood Gas Results Test 01/30/25 12:35 01/31/25 07:22 Arterial Blood pH 7.474 (7.350-7.450) 7.538 (7.350-7.450) FiO2 % 30.0 30.0 Microbiology Microbiology Date/Time Source Procedure Growth Status 01/29/25 14:00 Sputum Gram Stain - Final Resulted 01/29/25 14:00 Sputum Respiratory Culture - Preliminary Resulted 01/29/25 10:40 Blood Blood Culture - Preliminary NO GROWTH AFTER 24 HOURS OF INCUBATION. Resulted 01/28/25 23:59 Peritoneal Fluid Gram Stain - Final Resulted 01/28/25 23:59 Body Fluid Culture - Preliminary Stenotrophomonas maltophilia Resulted 01/28/25 12:55 Voided Urine Urine Culture - Final Complete 01/13/25 17:10 Nose MRSA Screen - Final Complete Assessment/Plan Assessment/Plan Impression: Acute hypoxic respiratory failure On mechanical ventilation Atelectasis Pleural effusion Acute metabolic encephalopathy secondary to acute hypoxic respiratory failure Pulmonary edema due to chronic heart failure with preserved ejection fraction Perforation of small bowel status post exploratory laparotomy Acute on chronic kidney disease secondary to shock, vasomotor nephropathy Anemia Sepsis with septic shock secondary to perforation of small bowel Events: Remains on vent support On assist control with respiratory rate of 12, tidal volume 450, PEEP of 5, FiO2 of 30% CXR image and report reviewed. Devices in place. Left lower lobe airspace disease. ABG reviewed, notable for alkalemia Surgery recommendations appreciated. Continue antibiotics Tube feeds for nutritional support CPAP trial Labs and imaging reviewed. Rest of plan as noted below. Plan: s/p intubation on mechanical ventilator On assist control with respiratory rate of 12, tidal volume 450, PEEP of 5, FiO2 of 30% Titrate FIO2 to keep O2 saturation above 92%. VAP bundle Daily ABG and CXR while intubated. Pressors as necessary for hemodynamic support. Titrate to keep MAP above 65 mmHg/SBP above 90 mmHg. Continue antibiotics. F/u cultures. Monitor renal function due to Acute kidney injury. Monitor electrolytes. Supplement as necessary. Supplement potassium Monitor magnesium Calcium at goal. Monitor hemoglobin, stable at 9.2 grams/deciliter. Transfuse if less than 7.0 g/dL. Nutritional support. Accu-Cheks, ISS. GI/DVT prophylaxis. Condition: Critical Prognosis: Poor given multiple comorbidities. Rest of plan per hospitalist and other consultants. A total of 35 minutes of critical care time was spent reviewing the patient record, examining the patient, making a diagnostic and therapeutic plan, discussing this plan with the medical personnel, following up on diagnostic studies and following the patient for clinical stability excluding any and all procedures. At least 50% of this time was spent in direct, [id number] contact. Thank you for allowing me to participate in this patient's care. Further recommendations will depend on patient's clinical course. Please do not hesitate to contact me if you have any questions or concerns. This medical document was created using an electronic medical record system with [employer] dictation system. Although this document has been carefully reviewed, there may still be some phonetic and typographical errors. These areas are purely typographical due to imperfections of the software programs, and do not reflect any compromise in the patient's medical care. Plan discussed with: Other (MASHA Daniel) Date of Service: Jan 30, 2025 Billing Provider: MORA LANGSTON MD Common Visit Codes: [id number] INP/OBS CARE(HIGH) MORA LANGSTON MD Jan 31, 2025 08:39
--- NOTE | 2025-01-31 10:18 | DVHPN2 ---
Progress Note Date Seen: Jan 31, 2025 Has the PT tested + for MRSA If YES, has PT been informed?: No Medical Necessity Reason Pt with a Central, PICC or Fol: Yes The following are medically ne: Central Line, Leach Catheter Reason for leach catheter: Strict I&O Subjective Review of Systems: RESPIRATORY:Abnormal, Deferred Objective vital signs Vital Sign Date Time Temp Pulse Resp B/P (MAP) Pulse Ox O2 Delivery O2 Flow Rate FiO2 01/31/25 10:00 30 01/31/25 09:35 109 20 132/48 (76) 99 01/31/25 06:00 99.7 211.5 01/31/25 05:45 Mechanical Ventilator+ Total Intake and Output 01/30/25 01/30/25 01/31/25 15:00 23:00 07:00 Intake Total 150 ml 495 ml 75 ml Output Total 555 ml 395 ml Balance 150 ml -60 ml -320 ml medications Current Medications Medications Dose Ordered Sig/Isaura Route Start Time Stop Time Status Last Admin Dose Admin Pantoprazole Sodium 40 mg DAILY IV 01/13/25 10:00 01/31/25 09:48 40 MG Cefazolin Sodium 50 ml @ 100 mls/hr Q8HR IV 01/13/25 14:00 UNV Midazolam HCl 50 ml @ 1 mls/hr Q24H IV 01/13/25 13:30 01/22/25 06:34 5 MLS/HR Norepinephrine Bitartrate 250 ml @ 3.75 mls/hr Q24H IV 01/13/25 13:30 01/21/25 17:20 3.75 MLS/HR Vasopressin 20 units/Sodium Chloride 100 ml @ 9 mls/hr Q11H7M IV 01/13/25 18:45 UNV Potassium Chloride 100 ml @ 50 mls/hr Q2H IV 01/16/25 12:45 01/16/25 18:44 UNV Vancomycin HCl 100 ml @ 100 mls/hr DAILY@1200 IV 01/20/25 12:00 UNV Micafungin Sodium 100 mg/Sodium Chloride 100 ml @ 100 mls/hr DAILY IV 01/21/25 10:00 01/31/25 09:48 100 MLS/HR Fentanyl Citrate 250 ml @ 2.5 mls/hr Q24H IV 01/22/25 19:00 01/25/25 14:42 20 MLS/HR Enteral Nutritional Formula 1,000 ml 50ML/HR GT 01/26/25 08:15 01/26/25 14:00 1,000 ML Sodium Chloride 10 ml QSHIFT@10,22 IV 01/26/25 22:00 01/31/25 09:48 10 ML Diagnostic Test (Pha) 1 strip Q6HR 01/26/25 18:00 01/31/25 05:25 1 STRIP Insulin Human Regular Q6HR SC 01/26/25 18:00 01/31/25 05:25 3 UNITS Dextrose 50 ml UD PRN IV 01/26/25 14:00 01/27/25 12:50 50 ML Purified Water 200 ml Q4HR GT 01/28/25 09:45 01/28/25 21:35 200 ML Acetaminophen 650 mg Q6HP PRN GT 01/30/25 16:00 Dextrose 1,000 ml @ 75 mls/hr [id number] IV 01/30/25 18:15 01/31/25 07:31 75 MLS/HR Examination: GENERAL:Abnormal, LUNGS:Abnormal laboratory and microbiology Laboratory Tests 01/31/25 03:15 Test 01/31/25 03:15 Range/Units Serum Glucose 180 H 74-106 mg/dL Microbiology Date/Time Source Procedure Growth Status 01/29/25 14:00 Sputum Gram Stain - Final Resulted 01/29/25 14:00 Respiratory Culture - Preliminary Presumptive Zoe albicans Resulted 01/29/25 10:40 Blood Blood Culture - Preliminary NO GROWTH AFTER 24 HOURS OF INCUBATION. Resulted 01/28/25 23:59 Peritoneal Fluid Gram Stain - Final Resulted 01/28/25 23:59 Body Fluid Culture - Preliminary Stenotrophomonas maltophilia Resulted 01/28/25 12:55 Voided Urine Urine Culture - Final Complete 01/13/25 17:10 Nose MRSA Screen - Final Complete Problem List/Assessment/Plan Problem List/Assessment/Plan 80-year-old female presents to the hospital complaining of abdominal pain is diagnosed with abdominal perforation Acute kidney injury superimposed Chronic Kidney Disease secondary hemodynamic mediated Acute respiratory failure, patient intubated on ventilator Acute perforation of the abdomen / bowel ischemia s/p exlap History of atrial fibrillation previously on anticoagulation 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 , RA + Diabetes mellitus type 2 Hypophosphatemia /hyperkalemia-----> hypokalemia Anemia due to blood loss D5W IV for sodium correction Holding Lasix today potassium correction today monitor UOP no indication for dialysis today Plan discussed with: Other (family at bedside) Dietary Evaluation Review Comments: Nutrition Recommendation: 1) TPN to meet at least 75% estimated needs within 7 days 2) Monitor NPO status, lab values, wt trend, I/O Expected Outcomes/Goals: To meet >75% estimated needs Lab values to improve Fu 2-3 days Critical Care Time (mins): 33 CC Plasma Assessment Blood Product Administration S: [id number] PATRICK RAMOS MD Jan 31, 2025 10:18
--- NOTE | 2025-01-31 11:10 | DVH ---
US ABDOMEN LIMITED HISTORY: EVALUATION OF POSSIBLE PERISPLENIC FLUID COLLECTION COMPARISON: CT CT AB PEL WO CON-NO ORAL OR IV on DOS: 01/29/25, XY KUB ABDOMEN SINGLE VIEW on DOS: 01/10 12/03, XY KUB ABDOMEN SINGLE VIEW on DOS: 01/20/25 TECHNIQUE: Transverse and longitudinal grayscale and color sonographic images were obtained of the bell lombardi. FINDINGS: IMPRESSION: Non visualization of the perisplenic fluid collection previously seen on CT. Possible trace left ple ural effusion.
[2025-01-31] MEDS: LIDOCAINE 2%HCL (LOCAL ANESTH.) INJ 10ml MDV ONE (11:39)
[2025-01-31] MEDS: fentaNYL CITRATE 100 MCG/2 ML VL IV ONE (12:00)
[2025-01-31] MEDS: MIDAZOLAM HCL 2MG/2ML 2ml VIAL (1mg/ml) IV ONE (12:00)
--- NOTE | 2025-01-31 12:13 | DVHPNRES ---
Progress Note Date Seen: Jan 31, 2025 Resident Creating Document: GIGI FELIZ AMBROSE Has the PT tested + for MRSA If YES, has PT been informed?: No Medical Necessity Reason Pt with a Central, PICC or Fol: Yes The following are medically ne: Central Line, Leach Catheter Reason for leach catheter: Strict I&O Subjective Review of Systems Seen and examined at the bedside. Patient was intubated and on mechanical ventilation Patient is alert awake following commands. And does not have any active complaint. Objective vital signs Vital Sign Date Time Temp Pulse Resp B/P (MAP) Pulse Ox O2 Delivery O2 Flow Rate FiO2 01/31/25 10:00 99.7 108 21 137/26 (63) 100 211.5 01/31/25 10:00 Mechanical Ventilator+ 30 30 Total Intake and Output 01/30/25 01/30/25 01/31/25 15:00 23:00 07:00 Intake Total 150 ml 495 ml 75 ml Output Total 555 ml 395 ml Balance 150 ml -60 ml -320 ml medications Current Medications Medications Dose Ordered Sig/Isaura Route Start Time Stop Time Status Last Admin Dose Admin Pantoprazole Sodium 40 mg DAILY IV 01/13/25 10:00 01/31/25 09:48 40 MG Cefazolin Sodium 50 ml @ 100 mls/hr Q8HR IV 01/13/25 14:00 UNV Midazolam HCl 50 ml @ 1 mls/hr Q24H IV 01/13/25 13:30 01/22/25 06:34 5 MLS/HR Norepinephrine Bitartrate 250 ml @ 3.75 mls/hr Q24H IV 01/13/25 13:30 01/21/25 17:20 3.75 MLS/HR Vasopressin 20 units/Sodium Chloride 100 ml @ 9 mls/hr Q11H7M IV 01/13/25 18:45 UNV Potassium Chloride 100 ml @ 50 mls/hr Q2H IV 01/16/25 12:45 01/16/25 18:44 UNV Vancomycin HCl 100 ml @ 100 mls/hr DAILY@1200 IV 01/20/25 12:00 UNV Micafungin Sodium 100 mg/Sodium Chloride 100 ml @ 100 mls/hr DAILY IV 01/21/25 10:00 01/31/25 09:48 100 MLS/HR Fentanyl Citrate 250 ml @ 2.5 mls/hr Q24H IV 01/22/25 19:00 01/25/25 14:42 20 MLS/HR Enteral Nutritional Formula 1,000 ml 50ML/HR GT 01/26/25 08:15 01/26/25 14:00 1,000 ML Sodium Chloride 10 ml QSHIFT@10,22 IV 01/26/25 22:00 01/31/25 09:48 10 ML Diagnostic Test (Pha) 1 strip Q6HR 01/26/25 18:00 01/31/25 05:25 1 STRIP Insulin Human Regular Q6HR SC 01/26/25 18:00 01/31/25 05:25 3 UNITS Dextrose 50 ml UD PRN IV 01/26/25 14:00 01/27/25 12:50 50 ML Purified Water 200 ml Q4HR GT 01/28/25 09:45 01/28/25 21:35 200 ML Acetaminophen 650 mg Q6HP PRN GT 01/30/25 16:00 Dextrose 1,000 ml @ 75 mls/hr [id number] IV 01/30/25 18:15 01/31/25 07:31 75 MLS/HR Examination General: RASS 0, afebrile, mucosae are moist Cardiovascular: Normal S1 and S2. No murmurs, gallops or rubs Respiratory: Mechanically assisted ventilation, equal bilateral airway entree. Clear lung sounds on auscultation Abdomen: Soft, nontender, no organomegaly, normal bowel sounds MSK/skin: Patient has brownish discharge from drains with diffuse hemorrhagic vesicles and petechial/purpura lesions Neurological: Orientation cannot be assessed. No apparent motor no sensitive deficits. Pupils are isocoric and reactive laboratory and microbiology Laboratory Tests 01/31/25 03:15 Test 01/31/25 03:15 Range/Units Serum Glucose 180 H 74-106 mg/dL Microbiology Date/Time Source Procedure Growth Status 01/29/25 14:00 Sputum Gram Stain - Final Resulted 01/29/25 14:00 Respiratory Culture - Preliminary Presumptive Zoe albicans Resulted 01/29/25 10:40 Blood Blood Culture - Preliminary NO GROWTH AFTER 48 HOURS OF INCUBATION. Resulted 01/28/25 23:59 Peritoneal Fluid Gram Stain - Final Resulted 01/28/25 23:59 Body Fluid Culture - Preliminary Stenotrophomonas maltophilia Resulted 01/28/25 12:55 Voided Urine Urine Culture - Final Complete 01/13/25 17:10 Nose MRSA Screen - Final Complete Problem List/Assessment/Plan Problem List/Assessment/Plan This is a 80-year-old lady with past medical history of hypertension, AFib (on Eliquis), diabetes type 2, CKD, came to the hospital due to abdominal pain, and constipation. Admitted on 01/13/2025. Found to have peritonitis due to bowel perforation, and underwent emergent laparotomy with subsequent resection of perforated small bowel and enteroenterostomy. 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 * RASS score 0 CARDIOVASCULAR: Septic shock secondary to perforation of the hollow viscus Paroxysmal atrial fibrillation Hypercoagulable state Chronic diastolic heart failure with preserved ejection fraction * Echo from 01/15 shows, NORMAL LV EF AND IS 65%, mild LVH and mild LV diastolic dysfunction * Chest xray demonstrated bibasilar atelectasis * [id number] score more than 5 * hold Lovenox because of low hemoglobin PULMONARY: Acute hypoxic respiratory failure secondary to bilateral pleural effusion/pneumonia Chest x-ray demonstrated bilateral hazy opacities * Sputum culture from 01/29 shows presumptive Zoe albicans * On mechanical ventilation tidal volume 450, RR 12, FiO2 30% and peep 5 * Failed multiple CPAP trials yesterday GASTROINTESTINAL: Peritonitis due to Perforation of the small bowel, status post exploratory laparotomy Transaminitis secondary to shock Perisplenic abscess * Peritoneal fluid culture from 01/13 shows E coli and Klebsiella pneumoniae sensitive to meropenem (given for 11 days, stopped on 01/31) * CT scan on 01/31 shows, moderate sized fluid collection in the perisplenic region * IR consulted, put pigtail drain, and has drained 50 cc purulent fluid * Patient has brownish discharge of the drain, care discussed with the surgery compliant for small bowel series on 02/02 GENITOURINARY: ISRRAEL on CKD secondary to shock/VMN (baseline record not available) * Monitoring ENDOCRINE: History of hypothyroidism Type 2 diabetes mellitus, hemoglobin A1c 8.2 * Few episodes of hypoglycemia * TSH is raised at 16.29 * Recheck TSH and free T4 METABOLIC: Hypokalemia Hyperkalemia Hyponatremia, Nephrology recommended D5W at 75 mL/hour Severe metabolic protein malnutrition * Anion gap metabolic acidosis secondary to bowel ischemia leading to lactic acidosis * Contraction alkalosis HEME: Acute on chronic anemia secondary to hemodilution/post surgical 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 * 3 unit of PRBC and platelet given since the surgery INFECTIOUS DISEASE: Sepsis with septic shock secondary to perforation of the small bowel * Blood culture from 01/29 preliminary result shows Gram-positive rods (1/4 sets of blood culture) * on IV micafungin and meropenem MUSCULOSKELETAL: Rib fracture, due to fall DIET: NPO, TPN DVT prophylax: Hold GI prophylaxis: Pantoprazole Bowel regimen: Code status: Full code LINES/DRAINS/ACCESS: ETT: Intubated on 01/14/25 IV access: Rt upper thigh PICC placed on 01/26/2025 Drips: off from pressor and sedatives Leach catheter: Placed on 0 9 /0 5 DISPOSITION: ICU status Patient's status discussed with patient and patient's son at the bedside. Critical care time spent more than 97 minutes, including patient care, chart review, and updating the family. Excluding any procedures. Case discussed with Dr. Self Plan discussed with: Patient, Other (RN) Dietary Evaluation Review Comments: Nutrition Recommendation: 1) TPN to meet at least 75% estimated needs within 7 days 2) Monitor NPO status, lab values, wt trend, I/O Expected Outcomes/Goals: To meet >75% estimated needs Lab values to improve Fu 2-3 days CC Plasma Assessment Blood Product Administration S: [id number] Date of Service: Jan 31, 2025 Billing Provider: ZBIGNIEW SELF MD Common Visit Codes: 35732-[id number] CARE 30-74 MIN, 24051-[id number] CARE-EACH +30MIN GIGI FELIZ RESDIENT Jan 31, 2025 12:13 ZBIGNIEW SELF MD Feb 01, 2025 15:06
--- NOTE | 2025-01-31 13:11 | DVHPN2 ---
Subjective Date Seen: Jan 31, 2025 Post op day Post op day: 18 Patient reports: Other (Remains intubated) Objective Vitals Vital Sign Date Time Temp Pulse Resp B/P (MAP) Pulse Ox O2 Delivery O2 Flow Rate FiO2 01/31/25 12:00 16 99 Mechanical Ventilator+ 30 30 01/31/25 11:28 106 134/48 (76) 01/31/25 11:00 99.5 211.1 Total Intake and Output 01/30/25 01/30/25 01/31/25 15:00 23:00 07:00 Intake Total 150 ml 495 ml 150 ml Output Total 555 ml 395 ml Balance 150 ml -60 ml -245 ml Medications Current Medications Medications Dose Ordered Sig/Isaura Route Start Time Stop Time Status Last Admin Dose Admin Pantoprazole Sodium 40 mg DAILY IV 01/13/25 10:00 01/31/25 09:48 40 MG Cefazolin Sodium 50 ml @ 100 mls/hr Q8HR IV 01/13/25 14:00 UNV Vasopressin 20 units/Sodium Chloride 100 ml @ 9 mls/hr Q11H7M IV 01/13/25 18:45 UNV Potassium Chloride 100 ml @ 50 mls/hr Q2H IV 01/16/25 12:45 01/16/25 18:44 UNV Vancomycin HCl 100 ml @ 100 mls/hr DAILY@1200 IV 01/20/25 12:00 UNV Micafungin Sodium 100 mg/Sodium Chloride 100 ml @ 100 mls/hr DAILY IV 01/21/25 10:00 01/31/25 09:48 100 MLS/HR Enteral Nutritional Formula 1,000 ml 50ML/HR GT 01/26/25 08:15 01/26/25 14:00 1,000 ML Sodium Chloride 10 ml QSHIFT@10,22 IV 01/26/25 22:00 01/31/25 09:48 10 ML Diagnostic Test (Pha) 1 strip Q6HR 01/26/25 18:00 01/31/25 11:25 1 STRIP Insulin Human Regular Q6HR SC 01/26/25 18:00 01/31/25 05:25 3 UNITS Dextrose 50 ml UD PRN IV 01/26/25 14:00 01/27/25 12:50 50 ML Purified Water 200 ml Q4HR GT 01/28/25 09:45 01/28/25 21:35 200 ML Acetaminophen 650 mg Q6HP PRN GT 01/30/25 16:00 Dextrose 1,000 ml @ 75 mls/hr [id number] IV 01/30/25 18:15 01/31/25 07:31 75 MLS/HR Labs and Microbiology Laboratory Tests 01/31/25 03:15 Test 01/31/25 03:15 Range/Units Serum Glucose 180 H 74-106 mg/dL Ass/Plan Labs and/or images reviewed: Labs reviewed by me Problem List This is a 50-year-old lady with past medical history of hypertension, AFib (on Eliquis), diabetes type 2, CKD, came to the hospital due to abdominal pain, and constipation. Admitted on 01/13/2025. Upon admission CT scan showed Free intraperitoneal air and circumferential small-bowel wall thickening with adjacent focal gas locules suggest visceral perforation, underwent emergent exploratory laparotomy and resection of perforated small bowel with enteroenterostomy. NEURO: Acute metabolic encephalopathy secondary to acute hypoxic respiratory failure Status post intubation RASS score: -[address] scan on 01/29 showed, Chronic sequelae of microangiopathy and atrophic cortical focal volume loss CARDIOVASCULAR: Septic shock secondary to perforation of the hollow viscus Paroxysmal atrial fibrillation with secondary hypercoagulable state Chronic diastolic heart failure with preserved ejection fraction Echo from 01/15 shows, NORMAL LV EF AND IS 65%, MILD LVH AND MILD LV DIASTOLIC DYSFUNCTION - Chest xray demonstrated bibasilar atelectasis - [id number] score more than 5 - hold Lovenox because of low hemoglobin PULMONARY: Acute hypoxic respiratory failure secondary to bilateral pleural effusion/pneumonia - chest x-ray demonstrated bilateral hazy opacities Sputum culture from 01/29 shows presumptive Zoe albicans On mechanical ventilation tidal volume 450, RR 12, FiO2 30% and peep 5 Failed multiple CPAP trials GASTROINTESTINAL: Peritonitis due to Perforation of the small bowel, status post exploratory laparotomy Transaminitis secondary to shock CT scan on 01/29 showed, small collections of pneumoperitoneum noted within the left abdomen, decreased when compared to the prior exam, in addition to small volume abdominopelvic ascites. New small left pleural effusion with adjacent atelectasis. New moderate perisplenic fluid may represent ascites versus hematoma. Moderate pericholecystic edema. IR seen the patient today (01/31), Non visualization of the perisplenic fluid collection previously seen on CT. Possible trace left pleural effusion. Small bowel series on 01/24 showed non obstructing bowel gas pattern Peritoneal fluid culture from 01/13 shows E coli and Klebsiella pneumoniae sensitive to meropenem (given for 11 days, stopped on 01/31) GENITOURINARY: ISRRAEL on CKD secondary to shock/VMN (baseline record not available) ENDOCRINE: History of hypothyroidism Type 2 diabetes mellitus, hemoglobin A1c 8.2 Few episodes of hypoglycemia - Mild sliding scale of insulin METABOLIC: Hypokalemia Hyperkalemia Hyponatremia, Nephrology recommended D5W at 75 mL/hour and free water 200 mL q.4 hours Severe metabolic protein malnutrition Moderate protein calorie malnutrition, albumin 2.6 Anion gap metabolic acidosis secondary to bowel ischemia leading to lactic acidosis Contraction alkalosis HEME: Acute on chronic anemia secondary to hemodilution/post surgical Severe thrombocytopenia likely secondary to HIT Possible heparin-induced thrombocytopenia type 2 Acute DVT of right upper extremity Ultrasound on 01/17 showed, partial thrombus in the right internal jugular vein and cephalic vein. - 3 unit of PRBC and platelet given since the surgery INFECTIOUS DISEASE: Sepsis with septic shock secondary to perforation of the small bowel Blood culture from 01/29 preliminary result shows Gram-positive rods (1/4 sets of blood culture) - on IV micafungin and meropenem MUSCULOSKELETAL Rib fracture, due to fall DIET: Tube feeding, Glucerna 50 mL/hours DVT prophylax: Hold GI prophylaxis: Pantoprazole Bowel regimen: Code status: Full code LINES/DRAINS/ACCESS: ETT: Intubated on 01/14/25 IV access: Rt upper thigh PICC placed on 01/26/2025 Drips: off from pressor and sedatives Perez catheter: Placed on 0 9 /0 10/03 Assessment/Plan 01/19/25 s/p Exploratory laparotomy, lysis of adhesions, extensive lavage, resection of perforated small bowel, enteroenterostomy. unchanged from yesterday abdomen soft, non distended, CARMEN drainage clear serous, no bowel activity, febrile, urine output ok, continues with thrombocytopenia, Plan: continue current treatment discussed with Dr. Christy 01/21/2025 s/p Exploratory laparotomy, lysis of adhesions, extensive lavage, resection of perforated small bowel, enteroenterostomy. abdomen soft, non distended, CARMEN drainage clear serous, no bowel activity, urine output ok, platelet count improved albumin low off pressors blood culture , gram negative rods Plan: continue meropenem antibiotics albumin x3 discussed with Dr. Christy 01/22/2025 s/p Exploratory laparotomy, lysis of adhesions, extensive lavage, resection of perforated small bowel, enteroenterostomy. abdomen soft, non distended, CARMEN drainage clear serous, no bowel activity, urine output ok, platelet count improved blood culture , gram positive rods labs reviewed Plan: continue with current treatment discussed with Dr. Christy 01/24/2025 s/p Exploratory laparotomy, lysis of adhesions, extensive lavage, resection of perforated small bowel, enteroenterostomy. abdomen soft, non distended, CARMEN drainage clear serous, no bowel activity, urine output ok, platelet count improved labs reviewed Plan: small bowel series discussed with Dr. Christy 01/31/2025 s/p Exploratory laparotomy, lysis of adhesions, extensive lavage, resection of perforated small bowel, enteroenterostomy. abdomen soft, non distended, CARMEN drainage brownish, urine output ok labs reviewed Plan: small bowel series on Friday discussed with Dr. Christy Prognosis: Poor Plan discussed with Dr. Christy Visit Coding Surgery Date of Service if different f: Jan 31, 2025 Billing Provider: MELVA CHRISTY MD Surgery Visit Codes: [id number] INP/OBS CARE(HIGH) CLAYTON POWERS NP Jan 31, 2025 13:11
--- NOTE | 2025-01-31 13:37 | DVH ---
CT ABDOMEN WITHOUT CONTRAST, HISTORY: PERISPLENIC ABSCESS DRAINAGE COMPARISON: US ABDOMEN LIMITED on DOS: 01/31/25, CT CT AB PEL WO CON-NO ORAL OR IV on DOS: 01/29/25, XY KUB ABDOMEN SINGLE VIEW on DOS: 01/26/25 PROCEDURE: Informed consent was obtained. The patient was placed supine on the CT scanner. IV sedatio n was administered. The fluid collection was localized under US/CT scan and the overlying skin preppe d with chlorhexidine which was allowed to dry and draped in the usual sterile fashion and infiltrated with Xylocaine. Time out was performed. With US/CT guidance, a 19-gauge centesis needle catheter was advanced via trans-peritoneal approach into the fluid collection. Following aspiration of a small am ount of fluid, a 0.035 wire was advanced into the fluid collection. Placement was confirmed with CT s can. After serial dilatation, a 8 Prydeinig multipurpose pigtail drain was placed into the collection. A pproximately 50 cc of purulent liquid was aspirated, with specimen sent for appropriate laboratory/cy tology/laboratory and cytology evaluation. The drain was sutured at the skin surface and connected to suction drainage. No immediate complication was noted. Post procedure CT imaging through the drain s ite was obtained. DLP =2303 mGy-cm. SEDATION: Dr. Beulah Parra was personally responsible for the administration of moderate sedation during the procedure performed, including the use of an independent trained observer who had no other duties during the procedure. The drugs utilized were IV fentanyl and versed (see nursing log for details). The total time of supervision by the attending physician was approximately 30 minutes. FINDINGS: Limited CT scan of through the abdomen demonstrates a moderate sized fluid collection in th e perisplenic region. Collection appears complex. Post procedure scan shows pigtail drain within the collection. No immediate complication was identified. IMPRESSION: US/CT guided placement of 8 kyr[place]z pigtail drain into a perisplenic abscess with 50 mL purulent fluid removed. PLAN: Routine tube care.
[2025-01-31] MEDS ORDERED: TPN PER PHARMACY 0 ML IV SCH (16:00)
[2025-01-31] MEDS: fentaNYL Drip 2500mCg/250mlNS 250 ML IV SCH (16:58)
[2025-01-31] MEDS: ACCU-CHEK COMFORT CURVE STRIP VI SCH (17:32)
[2025-01-31] MEDS: InsuLIN REG 1unit/0.01ml Soln (100units/ml) SC SCH (17:34)
[2025-01-31] MEDS: AMINO ACID INFUSION IN D10W 1,000 ML IV SCH (21:37)
[2025-02-01] VITALS (106 sets, daily range): BP systolic 97–141; BP diastolic 22–59; PULSE 84–108; RESP 10–26; TEMP 96.8–99.7; O2SAT 96–100
[2025-02-01 04:23] LABS: Hemoglobin 8.4 g/dL (12.2-16.2); Mean Corpuscular Hemoglobin 28.5 pg (28.0-32.0); Nucleated Red Blood Cells % 0.1 %
[2025-02-01 04:26] LABS: Hematocrit 25.6 % (36.0-46.0); Mean Corpuscular Volume 87.5 fL (80.0-100.0)
[2025-02-01 04:30] LABS: Anion Gap 9 (5-15); BUN/Creatinine Ratio 32.8 (10.0-20.0); Calcium 8.8 mg/dL (8.7-10.4); Carbon Dioxide 28 mmol/L (20-31); Chloride 105 mmol/L (98-107); Magnesium 2.2 mg/dL (1.6-2.6); Sodium 142 mmol/L (136-145)
[2025-02-01 04:31] LABS: Bilirubin, Total 1.0 mg/dL (0.2-1.0)
[2025-02-01 04:39] LABS: Iron 30.0 ug/dL (50-170); Total Iron Binding Capacity 163.0 ug/dL (250-425)
[2025-02-01 04:40] LABS: Alanine Aminotransferase < 9 U/L (7-40); Albumin 2.2 g/dL (3.2-4.8); Alkaline Phosphatase 180 U/L (46-116); Blood Urea Nitrogen 43 mg/dL (9-23); Glucose 197 mg/dL (74-106); Potassium 3.1 mmol/L (3.5-5.1); Total Protein 5.5 g/dL (5.7-8.2)
--- NOTE | 2025-02-01 04:41 | DVH ---
CHEST RADIOGRAPH Indication: pt intubated Technique: Single frontal view of the chest was obtained COMPARISON: XY CHEST PORTABLE on DOS: 01/31/25, XY CHEST PORTABLE on DOS: 01/30/25, XY CHEST PORTABLE o n DOS: 01/29/25, XY CHEST PORTABLE on DOS: 01/28/25, XY CHEST PORTABLE on DOS: 01/27/25 FINDINGS: Lines and Tubes: Unchanged. Lungs: Mild residual left basilar pulmonary airspace disease. Pleura: No effusion. No pneumothorax. Cardiomediastinal contours: Cardiomegaly. Bones: Unremarkable IMPRESSION: 1. Mild left basilar pulmonary airspace disease. 2. Lines and tubes unchanged.
[2025-02-01] MEDS: POTASSIUM CHL 20MEQ/100ML 100 ML IV SCH (05:39)
[2025-02-01 06:18] LABS: Triglycerides 169 mg/dL (< 150)
[2025-02-01 07:09] LABS: Base Excess 2.6 mmol/L (-2.0-3.0)
[2025-02-01] MEDS: D5W 5% 1,000 ML IV SCH (09:30)
--- NOTE | 2025-02-01 09:30 | DVHPN2 ---
Progress Note Date Seen: Feb 01, 2025 Has the PT tested + for MRSA If YES, has PT been informed?: No Medical Necessity Reason Pt with a Central, PICC or Fol: Yes The following are medically ne: Central Line, Leach Catheter Reason for leach catheter: Strict I&O Subjective Changes from previous H/P or p: No Changes Objective vital signs Vital Sign Date Time Temp Pulse Resp B/P (MAP) Pulse Ox O2 Delivery O2 Flow Rate FiO2 02/01/25 08:16 92 20 124/37 (66) 100 30 02/01/25 08:00 Mechanical Ventilator+ 02/01/25 06:30 96.8 206.2 Total Intake and Output 01/31/25 01/31/25 02/01/25 15:00 23:00 07:00 Intake Total 700 ml 799.5 ml 237.0 ml Output Total 1453 ml 395 ml Balance 700 ml -653.5 ml -158.0 ml medications Current Medications Medications Dose Ordered Sig/Isaura Route Start Time Stop Time Status Last Admin Dose Admin Pantoprazole Sodium 40 mg DAILY IV 01/13/25 10:00 02/01/25 09:23 40 MG Cefazolin Sodium 50 ml @ 100 mls/hr Q8HR IV 01/13/25 14:00 UNV Vasopressin 20 units/Sodium Chloride 100 ml @ 9 mls/hr Q11H7M IV 01/13/25 18:45 UNV Potassium Chloride 100 ml @ 50 mls/hr Q2H IV 01/16/25 12:45 01/16/25 18:44 UNV Vancomycin HCl 100 ml @ 100 mls/hr DAILY@1200 IV 01/20/25 12:00 UNV Micafungin Sodium 100 mg/Sodium Chloride 100 ml @ 100 mls/hr DAILY IV 01/21/25 10:00 02/01/25 09:23 100 MLS/HR Sodium Chloride 10 ml QSHIFT@10,22 IV 01/26/25 22:00 02/01/25 09:23 10 ML Acetaminophen 650 mg Q6HP PRN GT 01/30/25 16:00 Dextrose 1,000 ml @ 75 mls/hr [id number] IV 01/30/25 18:15 01/31/25 21:48 75 MLS/HR Amino Acids 0 ml @ 0 mls/hr PER PHARMACY IV 01/31/25 16:00 Levofloxacin 50 ml @ 50 mls/hr DAILY IV 02/01/25 10:00 02/01/25 09:23 50 MLS/HR Metronidazole 100 ml @ 100 mls/hr Q8HR IV 01/31/25 22:00 02/01/25 05:30 100 MLS/HR Fentanyl Citrate 250 ml @ 2.5 mls/hr Q24H IV 01/31/25 16:30 01/31/25 16:58 2.5 MLS/HR Amino Acids/ Electrolytes/ Dextrose 1,000 ml @ 41 mls/hr DAILY@2200 IV 01/31/25 22:00 01/31/25 21:37 41 MLS/HR Diagnostic Test (Pha) 1 strip Q6HR 01/31/25 18:00 02/01/25 06:22 1 STRIP Insulin Human Regular FOLLOW SLIDING SCALE Q6HR SC 01/31/25 18:00 02/01/25 06:23 8 UNITS Dextrose 50 ml UD IV 01/31/25 17:00 Potassium Chloride 100 ml @ 50 mls/hr Q2H IV 02/01/25 05:00 02/01/25 12:59 02/01/25 08:34 50 MLS/HR Examination: GENERAL:Abnormal, LUNGS:Abnormal, SKIN:Normal laboratory and microbiology Laboratory Tests 02/01/25 03:30 Test 02/01/25 03:30 Range/Units Serum Glucose 197 H 74-106 mg/dL Microbiology Date/Time Source Procedure Growth Status 01/29/25 14:00 Sputum Gram Stain - Final Resulted 01/29/25 14:00 Respiratory Culture - Preliminary Presumptive Zoe albicans Resulted 01/29/25 10:40 Blood Blood Culture - Preliminary NO GROWTH AFTER 48 HOURS OF INCUBATION. Resulted 01/28/25 23:59 Peritoneal Fluid Gram Stain - Final Resulted 01/28/25 23:59 Body Fluid Culture - Preliminary Stenotrophomonas maltophilia Resulted 01/28/25 12:55 Voided Urine Urine Culture - Final Complete 01/13/25 17:10 Nose MRSA Screen - Final Complete Problem List/Assessment/Plan Problem List/Assessment/Plan 80-year-old female presents to the hospital complaining of abdominal pain is diagnosed with abdominal perforation Acute kidney injury superimposed Chronic Kidney Disease secondary hemodynamic mediated Acute respiratory failure, patient intubated on ventilator Acute perforation of the abdomen / bowel ischemia s/p exlap History of atrial fibrillation previously on anticoagulation 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 , RA + Diabetes mellitus type 2 Hypophosphatemia /hyperkalemia-----> hypokalemia Anemia due to blood loss D5W IV for sodium correction, reduce rate. Holding Lasix today potassium correction today monitor UOP no indication for dialysis today start IV iron for anemia once infection is controlled Plan discussed with: Other Dietary Evaluation Review Comments: Nutrition Recommendation: 1) TPN to meet at least 75% estimated needs within 7 days 2) Monitor NPO status, lab values, wt trend, I/O Expected Outcomes/Goals: To meet >75% estimated needs Lab values to improve Fu 2-3 days Critical Care Time (mins): 33 CC Plasma Assessment Blood Product Administration S: [id number] PATRICK RAMOS MD Feb 01, 2025 09:30
--- NOTE | 2025-02-01 19:14 | DVHPNRES ---
Progress Note Date Seen: Feb 01, 2025 Resident Creating Document: GIGI FELIZ RESDIENT Has the PT tested + for MRSA If YES, has PT been informed?: No Medical Necessity Reason Pt with a Central, PICC or Fol: Yes The following are medically ne: Central Line, Leach Catheter Reason for leach catheter: Strict I&O Subjective Review of Systems General: RASS 0, afebrile, mucosae are moist Cardiovascular: Normal S1 and S2. No murmurs, gallops or rubs Respiratory: Mechanically assisted ventilation, equal bilateral airway entree. Clear lung sounds on auscultation Abdomen: Soft, nontender, no organomegaly, normal bowel sounds MSK/skin: Patient has brownish discharge from drains with diffuse hemorrhagic vesicles and petechial/purpura lesions Neurological: Orientation cannot be assessed. No apparent motor no sensitive deficits. Pupils are isocoric and reactive Objective vital signs Vital Sign Date Time Temp Pulse Resp B/P (MAP) Pulse Ox O2 Delivery O2 Flow Rate FiO2 02/01/25 18:45 99.3 105 13 101/36 (57) 98 210.7 02/01/25 18:00 Mechanical Ventilator+ 30 30 Total Intake and Output 01/31/25 01/31/25 02/01/25 15:00 23:00 07:00 Intake Total 700 ml 799.5 ml 555.5 ml Output Total 53 ml 395 ml Balance 700 ml 746.5 ml 160.5 ml medications Current Medications Medications Dose Ordered Sig/Isaura Route Start Time Stop Time Status Last Admin Dose Admin Pantoprazole Sodium 40 mg DAILY IV 01/13/25 10:00 02/01/25 09:23 40 MG Cefazolin Sodium 50 ml @ 100 mls/hr Q8HR IV 01/13/25 14:00 UNV Vasopressin 20 units/Sodium Chloride 100 ml @ 9 mls/hr Q11H7M IV 01/13/25 18:45 UNV Potassium Chloride 100 ml @ 50 mls/hr Q2H IV 01/16/25 12:45 01/16/25 18:44 UNV Vancomycin HCl 100 ml @ 100 mls/hr DAILY@1200 IV 01/20/25 12:00 UNV Sodium Chloride 10 ml QSHIFT@10,22 IV 01/26/25 22:00 02/01/25 09:23 10 ML Acetaminophen 650 mg Q6HP PRN GT 01/30/25 16:00 Amino Acids 0 ml @ 0 mls/hr PER PHARMACY IV 01/31/25 16:00 Levofloxacin 50 ml @ 50 mls/hr DAILY IV 02/01/25 10:00 02/01/25 09:23 50 MLS/HR Metronidazole 100 ml @ 100 mls/hr Q8HR IV 01/31/25 22:00 02/01/25 13:38 100 MLS/HR Fentanyl Citrate 250 ml @ 2.5 mls/hr Q24H IV 01/31/25 16:30 01/31/25 16:58 2.5 MLS/HR Amino Acids/ Electrolytes/ Dextrose 1,000 ml @ 41 mls/hr DAILY@2200 IV 01/31/25 22:00 02/01/25 21:59 01/31/25 21:37 41 MLS/HR Diagnostic Test (Pha) 1 strip Q6HR 01/31/25 18:00 02/01/25 17:31 1 STRIP Insulin Human Regular FOLLOW SLIDING SCALE Q6HR SC 01/31/25 18:00 02/01/25 17:31 4 UNITS Dextrose 50 ml UD IV 01/31/25 17:00 Dextrose 1,000 ml @ 60 mls/hr [id number] IV 02/01/25 09:30 Fat Emulsion Intravenous 50 ml/ Potassium Phosphate 22 meq/ Magnesium Sulfate 4 meq/ Multivitamins 10 ml/Chromium/ Copper/Manganese/ Zinc 1 ml/Amino Acids/Dextrose 767 ml @ 32 mls/hr [id number] IV 02/01/25 22:00 02/02/25 21:59 laboratory and microbiology Laboratory Tests 02/01/25 03:30 Test 02/01/25 03:30 Range/Units Serum Glucose 197 H 74-106 mg/dL Microbiology Date/Time Source Procedure Growth Status 01/31/25 13:30 Aspirate Gram Stain - Final Resulted 01/31/25 13:30 Aspirate Body Fluid Culture - Preliminary Resulted 01/29/25 14:00 Sputum Gram Stain - Final Complete 01/29/25 14:00 Respiratory Culture - Final Presumptive Zoe albicans Complete 01/29/25 10:40 Blood Blood Culture - Preliminary NO GROWTH AFTER 72 HOURS OF INCUBATION. Resulted 01/28/25 12:55 Voided Urine Urine Culture - Final Complete 9/4/25 17:10 Nose MRSA Screen - Final Complete Problem List/Assessment/Plan Problem List/Assessment/Plan This is a 80-year-old lady with past medical history of hypertension, AFib (on Eliquis), diabetes type 2, CKD, came to the hospital due to abdominal pain, and constipation. Admitted on 01/13/2025. Found to have peritonitis due to bowel perforation, and underwent emergent laparotomy with subsequent resection of perforated small bowel and enteroenterostomy. 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 * RASS score 0 CARDIOVASCULAR: Septic shock secondary to perforation of the hollow viscus Paroxysmal atrial fibrillation Hypercoagulable state Chronic diastolic heart failure with preserved ejection fraction * Echo from 01/15 shows, NORMAL LV EF AND IS 65%, mild LVH and mild LV diastolic dysfunction * Chest xray demonstrated bibasilar atelectasis * [id number] score more than 5 * hold Lovenox because of low hemoglobin PULMONARY: Acute hypoxic respiratory failure secondary to bilateral pleural effusion/pneumonia Chest x-ray demonstrated bilateral hazy opacities * Sputum culture from 01/29 shows presumptive Zoe albicans * On mechanical ventilation tidal volume 450, RR 12, FiO2 30% and peep 5 * Failed multiple CPAP trials GASTROINTESTINAL: Peritonitis due to Perforation of the small bowel, status post exploratory laparotomy Transaminitis secondary to shock Perisplenic abscess * Peritoneal fluid culture from 01/13 shows E coli and Klebsiella pneumoniae sensitive to meropenem (given for 11 days, stopped on 01/31) * CT scan on 01/31 shows, moderate sized fluid collection in the perisplenic region * IR consulted, put pigtail drain, and has drained 50 cc purulent fluid * Patient has brownish discharge of the drain * Small bowel series GENITOURINARY: ISRRAEL on CKD secondary to shock/VMN (baseline record not available) * Monitoring ENDOCRINE: History of hypothyroidism Type 2 diabetes mellitus, hemoglobin A1c 8.2 * Few episodes of hypoglycemia * TSH is raised at 16.29, normal free T4 METABOLIC: Hypokalemia Hyperkalemia Hyponatremia, Nephrology recommended D5W at 75 mL/hour Severe metabolic protein malnutrition * Anion gap metabolic acidosis secondary to bowel ischemia leading to lactic acidosis * Contraction alkalosis HEME: Acute on chronic anemia secondary to hemodilution/post surgical 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 * 3 unit of PRBC and platelet given since the surgery INFECTIOUS DISEASE: Sepsis with septic shock secondary to perforation of the small bowel * Blood culture from 01/29 preliminary result shows Gram-positive rods (1/4 sets of blood culture) * on IV micafungin and meropenem MUSCULOSKELETAL: Rib fracture, due to fall DIET: NPO, TPN DVT prophylax: Hold GI prophylaxis: Pantoprazole Bowel regimen: Code status: Full code LINES/DRAINS/ACCESS: ETT: Intubated on 01/14/25 IV access: Rt upper thigh PICC placed on 01/26/2025 Drips: off from pressor and sedatives Leach catheter: Placed on 0 5 DISPOSITION: ICU status Patient's status discussed with patient and patient's son at the bedside. Critical care time spent more than 82 minutes, including patient care, chart review, and updating the family. Excluding any procedures. Case discussed with Dr. Self Plan discussed with: Patient My Orders My Orders Orders - GIGI FELIZ RESDIENT Procedure Category Date Status Time Small Bowel Series-W XY 02/01/25 Logged Gastrogra 17:09 Complete Blood Count LAB 02/02/25 Verified 04:00 Chest Xray 1 View XY 02/02/25 Logged 04:00 Abg W/ Co-Ox RT 02/02/25 Logged 04:00 Dietary Evaluation Review Comments: Nutrition Recommendation: 1) TPN to meet at least 75% estimated needs within 7 days 2) Monitor NPO status, lab values, wt trend, I/O Expected Outcomes/Goals: To meet >75% estimated needs Lab values to improve Fu 2-3 days CC Plasma Assessment Blood Product Administration S: [id number] Date of Service: Feb 01, 2025 Billing Provider: ZBIGNIEW SELF MD Common Visit Codes: 17236-NGONMJNM CARE 30-74 MIN, 25193-DCRSUIKD CARE-EACH +30MIN GIGI FELIZ RESDIENT Feb 01, 2025 19:14 ZBIGNIEW SELF MD Feb 02, 2025 15:12
[2025-02-01] MEDS: TPN PER PHARMACY IV NR (22:06)
[2025-02-02] VITALS (107 sets, daily range): BP systolic 84–154; BP diastolic 19–67; PULSE 98–120; RESP 2–28; TEMP 96.8–99.7; O2SAT 98–100
[2025-02-02 04:02] LABS: Hematocrit 27.0 % (36.0-46.0); Hemoglobin 8.8 g/dL (12.2-16.2); Mean Corpuscular Hemoglobin 28.3 pg (28.0-32.0); Mean Corpuscular Volume 86.7 fL (80.0-100.0); Nucleated Red Blood Cells % 0.1 %
[2025-02-02 04:17] LABS: Anion Gap 9 (5-15); BUN/Creatinine Ratio 27.8 (10.0-20.0); Calcium 8.7 mg/dL (8.7-10.4); Carbon Dioxide 23 mmol/L (20-31); Chloride 103 mmol/L (98-107); Magnesium 2.0 mg/dL (1.6-2.6); Potassium 4.1 mmol/L (3.5-5.1)
[2025-02-02 04:18] LABS: Bilirubin, Total 0.9 mg/dL (0.2-1.0)
[2025-02-02 04:19] LABS: Alanine Aminotransferase < 9 U/L (7-40); Albumin 2.2 g/dL (3.2-4.8); Alkaline Phosphatase 156 U/L (46-116); Blood Urea Nitrogen 35 mg/dL (9-23); Glucose 221 mg/dL (74-106); Sodium 135 mmol/L (136-145); Total Protein 5.6 g/dL (5.7-8.2)
--- NOTE | 2025-02-02 05:16 | DVH ---
CHEST RADIOGRAPH Indication: pneumonia Technique: Single frontal view of the chest was obtained COMPARISON: XY CHEST PORTABLE on DOS: 02/01/25, XY CHEST PORTABLE on DOS: 01/31/25, XY CHEST PORTABLE o n DOS: 01/30/25, XY CHEST PORTABLE on DOS: 01/29/25, XY CHEST PORTABLE on DOS: 01/28/25 FINDINGS: Lines and Tubes: Unchanged. Lungs: Left basilar pulmonary airspace disease. Pleura: No effusion. No pneumothorax. Cardiomediastinal contours: Cardiomegaly. Bones: Unremarkable IMPRESSION: 1. Left basilar pulmonary airspace disease. 2. Cardiomegaly. 3. Lines and tubes unchanged.
[2025-02-02 06:57] LABS: Base Excess -2.3 mmol/L (-2.0-3.0)
[2025-02-02] MEDS: GASTROGRAFIN 120 ML SOL ONE (09:40)
--- NOTE | 2025-02-02 13:15 | DVH ---
Procedure: XY SMALL BOWEL SERIES-W GASTROGRA Exam Date: 02/02/2025 09:33 AM Reason for study/Clinical History: Hx of small bowel resection, leakage of anastomosis area Comparison Study: XY SMALL BOWEL SERIES-W GASTROGRA on DOS: 01/24/25 Technique: Single contrast small bowel series performed. Findings: Initial insect control aide view of the abdomen and pelvis appears demonstrates no acute process. Contrast is identified within the colon by 2 hr. This represents a normal small bowel transit time. Small bowel loops are normal in size. Normal mucosal pattern. No evidence of small bowel obstructi on, stricture, or mucosal abnormality. The terminal ileum is well visualized and is unremarkable. IMPRESSION: Normal small bowel series. END IMPRESSION:
--- NOTE | 2025-02-02 13:47 | DVHPN2 ---
Progress Note Date Seen: Feb 02, 2025 Has the PT tested + for MRSA If YES, has PT been informed?: No Medical Necessity Reason Pt with a Central, PICC or Fol: Yes The following are medically ne: Central Line, Leach Catheter Reason for leach catheter: Strict I&O Objective vital signs Vital Sign Date Time Temp Pulse Resp B/P (MAP) Pulse Ox O2 Delivery O2 Flow Rate FiO2 02/02/25 11:48 103 25 150/42 (78) 100 30 02/02/25 10:15 98.8 209.8 02/02/25 08:20 Mechanical Ventilator+ Total Intake and Output 02/01/25 02/01/25 02/02/25 15:00 23:00 07:00 Intake Total 1307.0 ml 919.0 ml 671.5 ml Output Total 565 ml 590 ml Balance 1307.0 ml 354.0 ml 81.5 ml medications Current Medications Medications Dose Ordered Sig/Isaura Route Start Time Stop Time Status Last Admin Dose Admin Pantoprazole Sodium 40 mg DAILY IV 01/13/25 10:00 02/02/25 09:57 40 MG Cefazolin Sodium 50 ml @ 100 mls/hr Q8HR IV 01/13/25 14:00 UNV Vasopressin 20 units/Sodium Chloride 100 ml @ 9 mls/hr Q11H7M IV 01/13/25 18:45 UNV Potassium Chloride 100 ml @ 50 mls/hr Q2H IV 01/16/25 12:45 01/16/25 18:44 UNV Vancomycin HCl 100 ml @ 100 mls/hr DAILY@1200 IV 01/20/25 12:00 UNV Sodium Chloride 10 ml QSHIFT@10,22 IV 01/26/25 22:00 02/02/25 10:04 10 ML Acetaminophen 650 mg Q6HP PRN GT 01/30/25 16:00 Amino Acids 0 ml @ 0 mls/hr PER PHARMACY IV 01/31/25 16:00 Levofloxacin 50 ml @ 50 mls/hr DAILY IV 02/01/25 10:00 02/02/25 09:57 50 MLS/HR Metronidazole 100 ml @ 100 mls/hr Q8HR IV 01/31/25 22:00 02/02/25 06:13 100 MLS/HR Fentanyl Citrate 250 ml @ 2.5 mls/hr Q24H IV 01/31/25 16:30 01/31/25 16:58 2.5 MLS/HR Diagnostic Test (Pha) 1 strip Q6HR 01/31/25 18:00 02/02/25 12:14 1 STRIP Insulin Human Regular FOLLOW SLIDING SCALE Q6HR SC 01/31/25 18:00 02/02/25 12:15 4 UNITS Dextrose 50 ml UD IV 01/31/25 17:00 Fat Emulsion Intravenous 50 ml/ Potassium Phosphate 22 meq/ Magnesium Sulfate 4 meq/ Multivitamins 10 ml/Chromium/ Copper/Manganese/ Zinc 1 ml/Amino Acids/Dextrose 767 ml @ 32 mls/hr [id number] IV 02/01/25 22:00 02/02/25 21:59 02/01/25 22:06 32 MLS/HR Fat Emulsion Intravenous 50 ml/ Sodium Chloride 10 meq/Sodium Acetate 10 meq/ Potassium Phosphate 22 meq/ Magnesium Sulfate 4 meq/ Multivitamins 10 ml/Chromium/ Copper/Manganese/ Zinc 1 ml/Insulin Human Regular 10 units/Sodium Phosphate 20 meq/ Amino Acids/ Dextrose 829.6 ml @ 35 mls/hr [id number] IV 02/02/25 22:00 02/03/25 21:59 laboratory and microbiology Laboratory Tests 02/02/25 03:30 Test 02/02/25 03:30 Range/Units Serum Glucose 221 H 74-106 mg/dL Problem List/Assessment/Plan Problem List/Assessment/Plan 01/14/25 afebrile, low dose BP support, received transfusion, I believe her decreased hematocrit is due to hemodilution. abdomen non distended, soft, wound clean and well approximated, drainage serous . remains intubated and sedated 01/16/25 ALKALOSIS, ABDOMEN NON DISTENDED, SOFT, DRAINAGE SEROUS, WOUND CLEAN AND WELL APPROXIMATED 01/17/25 improved, thrombocytopenia possibly made worse by Fluconazole,will DC, abdomen non distended, wound well approximated without infection, TATY drainage serous, CVP 6, good urine output. 01/18/25 abg reviewed, ,abdomen soft, non distended, TATY drainage clear serous, no bowel activity, febrile, urine output ok, continues with thrombocytopenia,pt and inr slightly elevated. prognosis grave. 01/20/25remains sedated on ventilator, abdomen soft, non distended, faint bowel sounds auscultated by nurse, wound clean and well approximated, TATY drainage clear serous. continues with thrombocytopenia, still behind on intravascular volume( BUN and Creatinine elevated), i would give more IV fluids and DC vancomycin. 01/25/25 afebrile, normotensive, wound clean and well approximated, TATY drainage serous, abdomen non distended, soft, gastrografin small bowel series shows non obstructed GI tract and no evidence of extravasation. It is OK to initiate enteric feedings. 01/29/25 16 DAYS POST OPERATIVELY TRHE TATY DRAINAGE WHICH HAD CONSISTENTLY BEEN SEROUS OR SERO SANGUINEOUS HAS BECOME "DIRTY" BROWNISH DISCOLORATION, HER WOUND IS CLEAN AND WELL APPROXIMATED AND HER ABDOMEN IS SOFT AND NON DISTENDED, CT SCAN SHOWS SO0ME FLUID AND ACCUMULATION OF FLUID AROUND THE SPLEEN, WILL REQUEST CT GUIDED ASPIRATION OF SAME, WILL ORDER IRRIGATION OF DRAINS. SHE SI AFEBRILE AND MAINTAINS NORMAL BLOOD PRESSURE, HER WBC IS NORMAL. 01/30/25 improved, awake, being weaned off vent. abdomen non distended, non tender, taty drainage clearing with irrigation 02/02/25clinically unchanged, gastrografin small bowel series reported and normal, no extravasation reported, will order a follow [facility]UB for tomorrow AM Plan discussed with: Other Dietary Evaluation Review Comments: Nutrition Recommendation: 1) TPN to meet at least 75% estimated needs within 7 days 2) Monitor NPO status, lab values, wt trend, I/O Expected Outcomes/Goals: To meet >75% estimated needs Lab values to improve Fu 2-3 days MELVA RAMESH MD Feb 02, 2025 13:47
[2025-02-02] MEDS: SODIUM PHOSPHATES 20 MEQ in SODIUM CHL 0.9% 100 ML IV ONE (14:20)
--- NOTE | 2025-02-02 14:45 | DVHPN2 ---
Progress Note Date Seen: Feb 02, 2025 Has the PT tested + for MRSA If YES, has PT been informed?: No Medical Necessity Reason Pt with a Central, PICC or Fol: Yes The following are medically ne: Central Line, Leach Catheter Reason for leach catheter: Strict I&O Subjective Changes from previous H/P or p: No Changes Objective vital signs Vital Sign Date Time Temp Pulse Resp B/P (MAP) Pulse Ox O2 Delivery O2 Flow Rate FiO2 02/02/25 13:37 106 22 92/34 (53) 98 30 02/02/25 10:15 98.8 209.8 02/02/25 08:20 Mechanical Ventilator+ Total Intake and Output 02/01/25 02/01/25 02/02/25 15:00 23:00 07:00 Intake Total 1307.0 ml 919.0 ml 671.5 ml Output Total 565 ml 590 ml Balance 1307.0 ml 354.0 ml 81.5 ml medications Current Medications Medications Dose Ordered Sig/Isaura Route Start Time Stop Time Status Last Admin Dose Admin Pantoprazole Sodium 40 mg DAILY IV 01/13/25 10:00 02/02/25 09:57 40 MG Cefazolin Sodium 50 ml @ 100 mls/hr Q8HR IV 01/13/25 14:00 UNV Vasopressin 20 units/Sodium Chloride 100 ml @ 9 mls/hr Q11H7M IV 01/13/25 18:45 UNV Potassium Chloride 100 ml @ 50 mls/hr Q2H IV 01/16/25 12:45 01/16/25 18:44 UNV Vancomycin HCl 100 ml @ 100 mls/hr DAILY@1200 IV 01/20/25 12:00 UNV Sodium Chloride 10 ml QSHIFT@10,22 IV 01/26/25 22:00 02/02/25 10:04 10 ML Acetaminophen 650 mg Q6HP PRN GT 01/30/25 16:00 Amino Acids 0 ml @ 0 mls/hr PER PHARMACY IV 01/31/25 16:00 Levofloxacin 50 ml @ 50 mls/hr DAILY IV 02/01/25 10:00 02/02/25 09:57 50 MLS/HR Metronidazole 100 ml @ 100 mls/hr Q8HR IV 01/31/25 22:00 02/02/25 14:12 100 MLS/HR Fentanyl Citrate 250 ml @ 2.5 mls/hr Q24H IV 01/31/25 16:30 01/31/25 16:58 2.5 MLS/HR Diagnostic Test (Pha) 1 strip Q6HR 01/31/25 18:00 02/02/25 12:14 1 STRIP Insulin Human Regular FOLLOW SLIDING SCALE Q6HR SC 01/31/25 18:00 02/02/25 12:15 4 UNITS Dextrose 50 ml UD IV 01/31/25 17:00 Fat Emulsion Intravenous 50 ml/ Potassium Phosphate 22 meq/ Magnesium Sulfate 4 meq/ Multivitamins 10 ml/Chromium/ Copper/Manganese/ Zinc 1 ml/Amino Acids/Dextrose 767 ml @ 32 mls/hr [id number] IV 02/01/25 22:00 02/02/25 21:59 02/01/25 22:06 32 MLS/HR Fat Emulsion Intravenous 50 ml/ Sodium Chloride 10 meq/Sodium Acetate 10 meq/ Magnesium Sulfate 4 meq/ Multivitamins 10 ml/Chromium/ Copper/Manganese/ Zinc 1 ml/Insulin Human Regular 10 units/Sodium Phosphate 20 meq/ Potassium Acetate 20 meq/Amino Acids/Dextrose 834.6 ml @ 35 mls/hr [id number] IV 02/02/25 22:00 02/03/25 21:59 Examination: GENERAL:Abnormal, LUNGS:Abnormal, CVS:Abnormal laboratory and microbiology Laboratory Tests 02/02/25 03:30 Test 02/02/25 03:30 Range/Units Serum Glucose 221 H 74-106 mg/dL Microbiology Date/Time Source Procedure Growth Status 01/31/25 13:30 Aspirate Gram Stain - Final Resulted 01/31/25 13:30 Aspirate Body Fluid Culture - Preliminary Resulted 01/29/25 14:00 Sputum Gram Stain - Final Complete 01/29/25 14:00 Respiratory Culture - Final Presumptive Zoe albicans Complete 01/29/25 10:40 Blood Blood Culture - Preliminary NO GROWTH AFTER 72 HOURS OF INCUBATION. Resulted 01/28/25 12:55 Voided Urine Urine Culture - Final Complete 01/13/25 17:10 Nose MRSA Screen - Final Complete Problem List/Assessment/Plan Problem List/Assessment/Plan 80-year-old female presents to the hospital complaining of abdominal pain is diagnosed with abdominal perforation Acute kidney injury superimposed Chronic Kidney Disease secondary hemodynamic mediated Acute respiratory failure, patient intubated on ventilator Acute perforation of the abdomen / bowel ischemia s/p exlap History of atrial fibrillation previously on anticoagulation 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 , RA + Diabetes mellitus type 2 Hypophosphatemia /hyperkalemia-----> hypokalemia Anemia due to blood loss D5W IV for sodium correction, reduce rate. Holding Lasix today potassium correction today monitor UOP no indication for dialysis today start IV iron for anemia once infection is controlled Plan discussed with: Other Dietary Evaluation Review Comments: Nutrition Recommendation: 1) TPN to meet at least 75% estimated needs within 7 days 2) Monitor NPO status, lab values, wt trend, I/O Expected Outcomes/Goals: To meet >75% estimated needs Lab values to improve Fu 2-3 days Critical Care Time (mins): 33 CC Plasma Assessment Blood Product Administration S: [id number] PATRICK RAMOS MD Feb 02, 2025 14:45
--- NOTE | 2025-02-02 18:44 | DVHPNRES ---
Progress Note Date Seen: Feb 02, 2025 Resident Creating Document: GIGI FELIZ AMBROSE Has the PT tested + for MRSA If YES, has PT been informed?: No Medical Necessity Reason Pt with a Central, PICC or Fol: Yes The following are medically ne: Central Line, Leach Catheter Reason for leach catheter: Strict I&O Subjective Review of Systems Patient seen and examined at the bedside. Patient is calm and has no active complaint. Intubated and on mechanical ventilation. Objective vital signs Vital Sign Date Time Temp Pulse Resp B/P (MAP) Pulse Ox O2 Delivery O2 Flow Rate FiO2 02/02/25 18:30 98.8 106 22 85/41 (56) 100 209.8 02/02/25 18:18 30 02/02/25 16:00 Mechanical Ventilator+ Total Intake and Output 02/01/25 02/01/25 02/02/25 15:00 23:00 07:00 Intake Total 1307.0 ml 919.0 ml 729.5 ml Output Total 565 ml 590 ml Balance 1307.0 ml 354.0 ml 139.5 ml medications Current Medications Medications Dose Ordered Sig/Isaura Route Start Time Stop Time Status Last Admin Dose Admin Pantoprazole Sodium 40 mg DAILY IV 01/13/25 10:00 02/02/25 09:57 40 MG Cefazolin Sodium 50 ml @ 100 mls/hr Q8HR IV 01/13/25 14:00 UNV Vasopressin 20 units/Sodium Chloride 100 ml @ 9 mls/hr Q11H7M IV 01/13/25 18:45 UNV Potassium Chloride 100 ml @ 50 mls/hr Q2H IV 01/16/25 12:45 01/16/25 18:44 UNV Vancomycin HCl 100 ml @ 100 mls/hr DAILY@1200 IV 01/20/25 12:00 UNV Sodium Chloride 10 ml QSHIFT@10,22 IV 01/26/25 22:00 02/02/25 10:04 10 ML Acetaminophen 650 mg Q6HP PRN GT 01/30/25 16:00 Amino Acids 0 ml @ 0 mls/hr PER PHARMACY IV 01/31/25 16:00 Levofloxacin 50 ml @ 50 mls/hr DAILY IV 02/01/25 10:00 02/02/25 09:57 50 MLS/HR Metronidazole 100 ml @ 100 mls/hr Q8HR IV 01/31/25 22:00 02/02/25 14:12 100 MLS/HR Fentanyl Citrate 250 ml @ 2.5 mls/hr Q24H IV 01/31/25 16:30 02/02/25 18:27 5 MLS/HR Diagnostic Test (Pha) 1 strip Q6HR 01/31/25 18:00 02/02/25 18:20 1 STRIP Insulin Human Regular FOLLOW SLIDING SCALE Q6HR SC 01/31/25 18:00 02/02/25 18:21 2 UNITS Dextrose 50 ml UD IV 01/31/25 17:00 Fat Emulsion Intravenous 50 ml/ Potassium Phosphate 22 meq/ Magnesium Sulfate 4 meq/ Multivitamins 10 ml/Chromium/ Copper/Manganese/ Zinc 1 ml/Amino Acids/Dextrose 767 ml @ 32 mls/hr [id number] IV 02/01/25 22:00 02/02/25 21:59 02/01/25 22:06 32 MLS/HR Fat Emulsion Intravenous 50 ml/ Sodium Chloride 10 meq/Sodium Acetate 10 meq/ Magnesium Sulfate 4 meq/ Multivitamins 10 ml/Chromium/ Copper/Manganese/ Zinc 1 ml/Insulin Human Regular 10 units/Sodium Phosphate 20 meq/ Potassium Acetate 20 meq/Amino Acids/Dextrose 834.6 ml @ 35 mls/hr [id number] IV 02/02/25 22:00 02/03/25 21:59 Examination General: RASS 0, afebrile, mucosae are moist Cardiovascular: Normal S1 and S2. No murmurs, gallops or rubs Respiratory: Mechanically assisted ventilation, equal bilateral airway entree. Clear lung sounds on auscultation Abdomen: Soft, nontender, no organomegaly, normal bowel sounds MSK/skin: Patient has brownish discharge from drains with diffuse hemorrhagic vesicles and petechial/purpura lesions Neurological: Orientation cannot be assessed. No apparent motor no sensitive deficits. Pupils are isocoric and reactive laboratory and microbiology Laboratory Tests 02/02/25 03:30 Test 02/02/25 03:30 Range/Units Serum Glucose 221 H 74-106 mg/dL Microbiology Date/Time Source Procedure Growth Status 01/31/25 13:30 Aspirate Gram Stain - Final Resulted 01/31/25 13:30 Aspirate Body Fluid Culture - Preliminary Resulted 01/29/25 14:00 Sputum Gram Stain - Final Complete 01/29/25 14:00 Respiratory Culture - Final Presumptive Zoe albicans Complete 01/29/25 10:40 Blood Blood Culture - Preliminary NO GROWTH AFTER 72 HOURS OF INCUBATION. Resulted 01/28/25 12:55 Voided Urine Urine Culture - Final Complete 01/13/25 17:10 Nose MRSA Screen - Final Complete Labs and/or images reviewed: Labs reviewed by me Problem List/Assessment/Plan Problem List/Assessment/Plan This is a 80-year-old lady with past medical history of hypertension, AFib (on Eliquis), diabetes type 2, CKD, came to the hospital due to abdominal pain, and constipation. Admitted on 01/13/2025. Found to have peritonitis due to bowel perforation, and underwent emergent laparotomy with subsequent resection of perforated small bowel and enteroenterostomy. 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 * RASS score 0 CARDIOVASCULAR: Septic shock secondary to perforation of the hollow viscus Paroxysmal atrial fibrillation Hypercoagulable state Chronic diastolic heart failure with preserved ejection fraction * Echo from 01/15 shows, NORMAL LV EF AND IS 65%, mild LVH and mild LV diastolic dysfunction * Chest xray demonstrated bibasilar atelectasis * [id number] score more than 5 * hold Lovenox because of low hemoglobin PULMONARY: Acute hypoxic respiratory failure secondary to bilateral pleural effusion/pneumonia Chest x-ray demonstrated bilateral hazy opacities * Sputum culture from 01/29 shows presumptive Zoe albicans * On mechanical ventilation tidal volume 450, RR 12, FiO2 30% and peep 5 * Failed multiple CPAP trials GASTROINTESTINAL: Peritonitis due to Perforation of the small bowel, status post exploratory laparotomy Transaminitis secondary to shock Perisplenic abscess * Peritoneal fluid culture from 01/13 shows E coli and Klebsiella pneumoniae sensitive to meropenem (given for 11 days, stopped on 01/31) * CT scan on 01/31 shows, moderate sized fluid collection in the perisplenic region * IR consulted, put pigtail drain, and has drained 50 cc purulent fluid * Patient has brownish discharge of the drain * Small bowel series, normal study * Patient has leakage from surgical area and drainage * Plan: Surgical evaluation tomorrow GENITOURINARY: ISRRAEL on CKD secondary to shock/VMN (baseline record not available) * Monitoring ENDOCRINE: History of hypothyroidism Type 2 diabetes mellitus, hemoglobin A1c 8.2 * Few episodes of hypoglycemia * TSH is raised at 16.29, normal free T4 METABOLIC: Hypokalemia Hyperkalemia Hyponatremia, Nephrology recommended D5W at 75 mL/hour Severe metabolic protein malnutrition * Anion gap metabolic acidosis secondary to bowel ischemia leading to lactic acidosis * Contraction alkalosis HEME: Acute on chronic anemia secondary to hemodilution/post surgical 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 * 3 unit of PRBC and platelet given since the surgery INFECTIOUS DISEASE: Sepsis with septic shock secondary to perforation of the small bowel * Blood culture from 01/29 preliminary result shows Gram-positive rods (1/4 sets of blood culture) * on IV micafungin and meropenem MUSCULOSKELETAL: Rib fracture, due to fall DIET: NPO, TPN DVT prophylax: Hold GI prophylaxis: Pantoprazole Bowel regimen: Code status: Full code LINES/DRAINS/ACCESS: ETT: Intubated on 01/14/25 IV access: Rt upper thigh PICC placed on 01/26/2025 Drips: off from pressor and sedatives Leach catheter: Placed on 0 5 DISPOSITION: ICU status Patient's status discussed with patient and patient's son at the bedside. Critical care time spent more than 81 minutes, including patient care, chart review, and updating the family. Excluding any procedures. Case discussed with Dr. Self Plan discussed with: Patient My Orders My Orders Orders - GIGI FELIZ RESYESY Procedure Category Date Status Time Complete Blood Count LAB 02/03/25 Verified 04:00 Chest Xray 1 View XY 02/03/25 Logged 04:00 Abg W/ Co-Ox RT 02/03/25 Logged 04:00 Dietary Evaluation Review Comments: Nutrition Recommendation: 1) TPN to meet at least 75% estimated needs within 7 days 2) Monitor NPO status, lab values, wt trend, I/O Expected Outcomes/Goals: To meet >75% estimated needs Lab values to improve Fu 2-3 days CC Plasma Assessment Blood Product Administration S: [id number] Date of Service: Feb 02, 2025 Billing Provider: ZBIGNIEW SELF MD Common Visit Codes: 99099-UVTNUPDH CARE 30-74 MIN, 91194-ONHJKFLO CARE-EACH +30MIN GIGI FELIZ Feb 02, 2025 18:43 ZBIGNIEW SELF MD Feb 03, 2025 11:49
[2025-02-02] MEDS: TPN PER PHARMACY IV NR (22:17)
[2025-02-03] VITALS (108 sets, daily range): BP systolic 81–125; BP diastolic 15–65; PULSE 89–136; RESP 13–29; TEMP 96.6–99.1; O2SAT 97–100
[2025-02-03 04:41] LABS: Hematocrit 26.4 % (36.0-46.0); Hemoglobin 8.4 g/dL (12.2-16.2); Mean Corpuscular Hemoglobin 27.9 pg (28.0-32.0); Mean Corpuscular Volume 87.2 fL (80.0-100.0); Nucleated Red Blood Cells % 0.1 %
[2025-02-03 04:59] LABS: Anion Gap 11 (5-15); BUN/Creatinine Ratio 33.0 (10.0-20.0); Bilirubin, Total 0.9 mg/dL (0.2-1.0); Carbon Dioxide 22 mmol/L (20-31); Chloride 105 mmol/L (98-107); Magnesium 1.9 mg/dL (1.6-2.6); Sodium 138 mmol/L (136-145)
[2025-02-03 05:02] LABS: Alanine Aminotransferase < 9 U/L (7-40); Albumin 2.1 g/dL (3.2-4.8); Alkaline Phosphatase 137 U/L (46-116); Blood Urea Nitrogen 38 mg/dL (9-23); Calcium 8.5 mg/dL (8.7-10.4); Glucose 167 mg/dL (74-106); Potassium 3.2 mmol/L (3.5-5.1); Total Protein 5.4 g/dL (5.7-8.2)
--- NOTE | 2025-02-03 06:09 | DVH ---
CHEST RADIOGRAPH Indication: Pneumoina Technique: Single frontal view of the chest was obtained COMPARISON: XY CHEST XRAY 1 VIEW on DOS: 02/02/25, XY CHEST PORTABLE on DOS: 02/01/25, XY CHEST PORTABL E on DOS: 01/31/25, XY CHEST PORTABLE on DOS: 01/30/25, XY CHEST PORTABLE on DOS: 01/29/25 FINDINGS: Lines and Tubes: Endotracheal tube and enteric catheter in satisfactory position. Lungs: Pulmonary vascular congestion, unchanged. Pleura: No effusion.No pneumothorax. Cardiomediastinal contours: Unremarkable Bones: Unremarkable IMPRESSION: Lines and tubes in satisfactory position. No significant interval change.
[2025-02-03] MEDS: POTASSIUM CHL 20MEQ/100ML 100 ML IV SCH (07:01)
[2025-02-03 07:27] LABS: Base Excess -2.8 mmol/L (-2.0-3.0)
--- NOTE | 2025-02-03 07:50 | DVH ---
Exam: XY KUB ABDOMEN SINGLE VIEW Indication: f/u gastrografin series Comparison: CT ABDOMEN WITHOUT CONTRAST on DOS: 01/31/25, US ABDOMEN LIMITED on DOS: 01/31/25, XY KUB A BDOMEN SINGLE VIEW on DOS: 01/26/25, XY KUB ABDOMEN SINGLE VIEW on DOS: 01/20/25, XY KUB ABDOMEN SINGLE VIEW on DOS: 01/13/25 Technique: 1 radiographic views of the abdomen. Findings: Nonspecific bowel-gas pattern. Surgical drains are present in the abdomen. Right central venous cath eter in-situ. Enteric contrast is present in the colon. There is no definite evidence for pneumoperit oneum. No abnormal calcifications noted. Impression: Enteric contrast is present in the colon.
--- NOTE | 2025-02-03 09:07 | DVHPN2 ---
Progress Note Date Seen: Feb 03, 2025 Has the PT tested + for MRSA If YES, has PT been informed?: No Medical Necessity Reason Pt with a Central, PICC or Fol: Yes The following are medically ne: Central Line, Leach Catheter Reason for leach catheter: Strict I&O Objective vital signs Vital Sign Date Time Temp Pulse Resp B/P (MAP) Pulse Ox O2 Delivery O2 Flow Rate FiO2 02/03/25 08:30 96.8 109 19 107/47 (67) 99 206.2 02/03/25 08:00 Mechanical Ventilator+ 30 30 Total Intake and Output 02/02/25 02/02/25 02/03/25 15:00 23:00 07:00 Intake Total 614 ml 550 ml 457.5 ml Output Total 845 ml 510 ml Balance 614 ml -295 ml -52.5 ml medications Current Medications Medications Dose Ordered Sig/Isaura Route Start Time Stop Time Status Last Admin Dose Admin Pantoprazole Sodium 40 mg DAILY IV 01/13/25 10:00 02/02/25 09:57 40 MG Cefazolin Sodium 50 ml @ 100 mls/hr Q8HR IV 01/13/25 14:00 UNV Vasopressin 20 units/Sodium Chloride 100 ml @ 9 mls/hr Q11H7M IV 01/13/25 18:45 UNV Potassium Chloride 100 ml @ 50 mls/hr Q2H IV 01/16/25 12:45 01/16/25 18:44 UNV Vancomycin HCl 100 ml @ 100 mls/hr DAILY@1200 IV 01/20/25 12:00 UNV Sodium Chloride 10 ml QSHIFT@10,22 IV 01/26/25 22:00 02/02/25 22:15 10 ML Acetaminophen 650 mg Q6HP PRN GT 01/30/25 16:00 Amino Acids 0 ml @ 0 mls/hr PER PHARMACY IV 01/31/25 16:00 Levofloxacin 50 ml @ 50 mls/hr DAILY IV 02/01/25 10:00 02/02/25 09:57 50 MLS/HR Metronidazole 100 ml @ 100 mls/hr Q8HR IV 01/31/25 22:00 02/03/25 05:42 100 MLS/HR Fentanyl Citrate 250 ml @ 2.5 mls/hr Q24H IV 01/31/25 16:30 02/02/25 18:27 5 MLS/HR Diagnostic Test (Pha) 1 strip Q6HR 01/31/25 18:00 02/03/25 05:25 1 STRIP Insulin Human Regular FOLLOW SLIDING SCALE Q6HR SC 01/31/25 18:00 02/03/25 05:42 4 UNITS Dextrose 50 ml UD IV 01/31/25 17:00 Fat Emulsion Intravenous 50 ml/ Sodium Chloride 10 meq/Sodium Acetate 10 meq/ Magnesium Sulfate 4 meq/ Multivitamins 10 ml/Chromium/ Copper/Manganese/ Zinc 1 ml/Insulin Human Regular 10 units/Sodium Phosphate 20 meq/ Potassium Acetate 20 meq/Amino Acids/Dextrose 834.6 ml @ 35 mls/hr [id number] IV 02/02/25 22:00 02/03/25 21:59 02/02/25 22:17 35 MLS/HR Potassium Chloride 100 ml @ 50 mls/hr Q2H IV 02/03/25 05:45 02/03/25 11:44 02/03/25 07:01 50 MLS/HR laboratory and microbiology Laboratory Tests 02/03/25 03:00 Test 02/03/25 03:00 Range/Units Serum Glucose 167 H 74-106 mg/dL Problem List/Assessment/Plan Problem List/Assessment/Plan 01/14/25 afebrile, low dose BP support, received transfusion, I believe her decreased hematocrit is due to hemodilution. abdomen non distended, soft, wound clean and well approximated, drainage serous . remains intubated and sedated 01/16/25 ALKALOSIS, ABDOMEN NON DISTENDED, SOFT, DRAINAGE SEROUS, WOUND CLEAN AND WELL APPROXIMATED 01/17/25 improved, thrombocytopenia possibly made worse by Fluconazole,will DC, abdomen non distended, wound well approximated without infection, TATY drainage serous, CVP 6, good urine output. 01/18/25 abg reviewed, ,abdomen soft, non distended, TATY drainage clear serous, no bowel activity, febrile, urine output ok, continues with thrombocytopenia,pt and inr slightly elevated. prognosis grave. 01/20/25remains sedated on ventilator, abdomen soft, non distended, faint bowel sounds auscultated by nurse, wound clean and well approximated, TATY drainage clear serous. continues with thrombocytopenia, still behind on intravascular volume( BUN and Creatinine elevated), i would give more IV fluids and DC vancomycin. 01/25/25 afebrile, normotensive, wound clean and well approximated, TATY drainage serous, abdomen non distended, soft, gastrografin small bowel series shows non obstructed GI tract and no evidence of extravasation. It is OK to initiate enteric feedings. 01/29/25 16 DAYS POST OPERATIVELY TRHE TATY DRAINAGE WHICH HAD CONSISTENTLY BEEN SEROUS OR SERO SANGUINEOUS HAS BECOME "DIRTY" BROWNISH DISCOLORATION, HER WOUND IS CLEAN AND WELL APPROXIMATED AND HER ABDOMEN IS SOFT AND NON DISTENDED, CT SCAN SHOWS SO0ME FLUID AND ACCUMULATION OF FLUID AROUND THE SPLEEN, WILL REQUEST CT GUIDED ASPIRATION OF SAME, WILL ORDER IRRIGATION OF DRAINS. SHE SI AFEBRILE AND MAINTAINS NORMAL BLOOD PRESSURE, HER WBC IS NORMAL. 01/30/25 improved, awake, being weaned off vent. abdomen non distended, non tender, taty drainage clearing with irrigation 02/02/25clinically unchanged, gastrografin small bowel series reported and normal, no extravasation reported, will order a follow ujp KUB for tomorrow AM 02/03/25 PATIENT HAD A GASTROGRAFIN SMALL BOWEL SERIES AND A FOLLOW UP KUB X RAYS NEITHER ONE OF WHICH SHOW EXTRAVASATION OF CONTRAST OR EVIDENCE OF FREE CONTRAST IN THE PERITONEAL CAVITY. THERE IS HOWEVER VISCOUS, BROWNISH FLUID DRAINING VIA BOTH TATY DRAINS AND THROUGH INFRAUMBILICAL PORTION OF MIDLINE WOUND, I REMOVED THE RICHIE FROM THE 3 CM SECTION OF THE INFRAUMBILICAL WOUND AND EVACUATED ABOUT 30 CC OF THIS FLUID AND INSTRUCTED THE NURSE TO PLACE A STOMA APPLIANCE ON THIS OPENING. 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 TODAY HER WBC IS ELEVATED, ABDOMEN CONTINUES TO BE NON DISTENDED, SOFT, BUT SHE DOES HAVE SLIGHT TENDERNESS IN THE PERIUMBILICAL AREA. I WILL TREAT THIS EXPECTANTLY FORM THE TIME BEING IN THE HOPE THAT THIS IS A "CONTROLLED" FISTULA AND HOPEFUL WILL HEAL SPONTANEOUSLY WITH NPO AND NUTRITIONAL SUPPORT. WILL WATCH CLOSELY, AFTER A FEW DAYS WILL GET A FISTULOGRAM TO PIN POINT THE ENTERIC ORIGIN OF THE FISTULIZATION. CONTINUE NGT SUCTION AND DRAIN IRRIGATION ORDERED. Plan discussed with: Patient, Other Dietary Evaluation Review Comments: Nutrition Recommendation: 1) TPN to meet at least 75% estimated needs within 7 days 2) Monitor NPO status, lab values, wt trend, I/O Expected Outcomes/Goals: To meet >75% estimated needs Lab values to improve Fu 2-3 days MELVA RAMESH MD Feb 03, 2025 09:07
[2025-02-03] MEDS: MAGNESIUM SULFATE 1GM/100ML 100 ML IV ONE (10:39)
--- NOTE | 2025-02-03 15:21 | DVHPN2 ---
Progress Note Date Seen: Feb 03, 2025 Has the PT tested + for MRSA If YES, has PT been informed?: No Medical Necessity Reason Pt with a Central, PICC or Fol: Yes The following are medically ne: Central Line, Leach Catheter Reason for leach catheter: Strict I&O Objective vital signs Vital Sign Date Time Temp Pulse Resp B/P (MAP) Pulse Ox O2 Delivery O2 Flow Rate FiO2 02/03/25 14:15 111 23 90/34 (52) 99 30 02/03/25 13:37 Mechanical Ventilator+ 02/03/25 12:00 99.1 99.1 Total Intake and Output 02/02/25 02/02/25 02/03/25 15:00 23:00 07:00 Intake Total 614 ml 550 ml 457.5 ml Output Total 845 ml 510 ml Balance 614 ml -295 ml -52.5 ml medications Current Medications Medications Dose Ordered Sig/Isaura Route Start Time Stop Time Status Last Admin Dose Admin Pantoprazole Sodium 40 mg DAILY IV 01/13/25 10:00 02/03/25 09:21 40 MG Cefazolin Sodium 50 ml @ 100 mls/hr Q8HR IV 01/13/25 14:00 UNV Vasopressin 20 units/Sodium Chloride 100 ml @ 9 mls/hr Q11H7M IV 01/13/25 18:45 UNV Potassium Chloride 100 ml @ 50 mls/hr Q2H IV 01/16/25 12:45 01/16/25 18:44 UNV Vancomycin HCl 100 ml @ 100 mls/hr DAILY@1200 IV 01/20/25 12:00 UNV Sodium Chloride 10 ml QSHIFT@10,22 IV 01/26/25 22:00 02/03/25 09:21 10 ML Acetaminophen 650 mg Q6HP PRN GT 01/30/25 16:00 Amino Acids 0 ml @ 0 mls/hr PER PHARMACY IV 01/31/25 16:00 Levofloxacin 50 ml @ 50 mls/hr DAILY IV 02/01/25 10:00 02/03/25 09:21 50 MLS/HR Metronidazole 100 ml @ 100 mls/hr Q8HR IV 01/31/25 22:00 02/03/25 14:31 100 MLS/HR Fentanyl Citrate 250 ml @ 2.5 mls/hr Q24H IV 01/31/25 16:30 02/02/25 18:27 5 MLS/HR Diagnostic Test (Pha) 1 strip Q6HR 01/31/25 18:00 02/03/25 12:17 1 STRIP Insulin Human Regular FOLLOW SLIDING SCALE Q6HR SC 01/31/25 18:00 02/03/25 12:16 4 UNITS Dextrose 50 ml UD IV 01/31/25 17:00 Fat Emulsion Intravenous 50 ml/ Sodium Chloride 10 meq/Sodium Acetate 10 meq/ Magnesium Sulfate 4 meq/ Multivitamins 10 ml/Chromium/ Copper/Manganese/ Zinc 1 ml/Insulin Human Regular 10 units/Sodium Phosphate 20 meq/ Potassium Acetate 20 meq/Amino Acids/Dextrose 834.6 ml @ 35 mls/hr [id number] IV 02/02/25 22:00 02/03/25 21:59 02/02/25 22:17 35 MLS/HR Fat Emulsion Intravenous 100 ml/Sodium Acetate 40 meq/Potassium Acetate 20 meq/ Magnesium Sulfate 8 meq/ Multivitamins 10 ml/Chromium/ Copper/Manganese/ Zinc 1 ml/Insulin Human Regular 7 units/Amino Acids/ Dextrose/Purified Water 1,143.07 ml @ 47 mls/hr [id number] IV 02/03/25 22:00 02/04/25 21:59 Norepinephrine Bitartrate 250 ml @ 3.75 mls/hr Q24H IV 02/03/25 13:45 laboratory and microbiology Laboratory Tests 02/03/25 03:00 Test 02/03/25 03:00 Range/Units Serum Glucose 167 H 74-106 mg/dL Microbiology Date/Time Source Procedure Growth Status 01/31/25 13:30 Aspirate Gram Stain - Final Resulted 01/31/25 13:30 Aspirate Body Fluid Culture - Preliminary Resulted 01/29/25 14:00 Sputum Gram Stain - Final Complete 01/29/25 14:00 Respiratory Culture - Final Presumptive Zoe albicans Complete 01/29/25 10:40 Blood Blood Culture - Final NO GROWTH AFTER 5 DAYS OF INCUBATION. 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 electrolyte correction as needed surgery eval for abdominal wound monitor UOP no indication for dialysis start IV iron for anemia once infection is controlled will sign off case now that renal function is stable Plan discussed with: Other Dietary Evaluation Review Comments: Nutrition Recommendation: 1) TPN to meet at least 75% estimated needs within 7 days 2) Monitor NPO status, lab values, wt trend, I/O Expected Outcomes/Goals: To meet >75% estimated needs Lab values to improve Fu 2-3 days Total Time (mins): 35 CC Plasma Assessment Blood Product Administration S: [id number] PATRICK RAMOS MD Feb 03, 2025 15:21
[2025-02-03] MEDS: NOREPINEPHRINE 8 MG/250ML KIT 250 ML IV SCH (18:02)
[2025-02-03] MEDS ORDERED: VANCOMYCIN PER PHARMACY 0 MG IV SCH (18:30)
[2025-02-03] MEDS: SODIUM CHLORIDE 0.9% 1,000 ML IV ONE (18:53)
[2025-02-03] MEDS: SODIUM CHLORIDE 0.9% 250 ML IV ONE ×4 (18:55→19:21)
--- NOTE | 2025-02-03 19:00 | DVHPNRES ---
Progress Note Date Seen: Feb 03, 2025 Resident Creating Document: GIGI FELIZ RESDIENT Has the PT tested + for MRSA If YES, has PT been informed?: No Medical Necessity Reason Pt with a Central, PICC or Fol: Yes The following are medically ne: Central Line, Leach Catheter Reason for leach catheter: Strict I&O Subjective Review of Systems General: RASS 0, afebrile, mucosae are moist Cardiovascular: Normal S1 and S2. No murmurs, gallops or rubs Respiratory: Mechanically assisted ventilation, equal bilateral airway entree. Clear lung sounds on auscultation Abdomen: Soft, nontender, no organomegaly, normal bowel sounds MSK/skin: Patient has brownish discharge from drains with diffuse hemorrhagic vesicles and petechial/purpura lesions Neurological: Orientation cannot be assessed. No apparent motor no sensitive deficits. Pupils are isocoric and reactive Objective vital signs Vital Sign Date Time Temp Pulse Resp B/P (MAP) Pulse Ox O2 Delivery O2 Flow Rate FiO2 02/03/25 18:06 105 20 81/23 (42) 99 30 02/03/25 18:00 Mechanical Ventilator+ 02/03/25 12:00 99.1 99.1 Total Intake and Output 02/02/25 02/02/25 02/03/25 15:00 23:00 07:00 Intake Total 614 ml 550 ml 457.5 ml Output Total 845 ml 510 ml Balance 614 ml -295 ml -52.5 ml medications Current Medications Medications Dose Ordered Sig/Isaura Route Start Time Stop Time Status Last Admin Dose Admin Pantoprazole Sodium 40 mg DAILY IV 01/13/25 10:00 02/03/25 09:21 40 MG Cefazolin Sodium 50 ml @ 100 mls/hr Q8HR IV 01/13/25 14:00 UNV Vasopressin 20 units/Sodium Chloride 100 ml @ 9 mls/hr Q11H7M IV 01/13/25 18:45 UNV Potassium Chloride 100 ml @ 50 mls/hr Q2H IV 01/16/25 12:45 01/16/25 18:44 UNV Vancomycin HCl 100 ml @ 100 mls/hr DAILY@1200 IV 01/20/25 12:00 UNV Sodium Chloride 10 ml QSHIFT@10,22 IV 01/26/25 22:00 02/03/25 09:21 10 ML Acetaminophen 650 mg Q6HP PRN GT 01/30/25 16:00 Amino Acids 0 ml @ 0 mls/hr PER PHARMACY IV 01/31/25 16:00 Fentanyl Citrate 250 ml @ 2.5 mls/hr Q24H IV 01/31/25 16:30 02/02/25 18:27 5 MLS/HR Diagnostic Test (Pha) 1 strip Q6HR 01/31/25 18:00 02/03/25 17:47 1 STRIP Insulin Human Regular FOLLOW SLIDING SCALE Q6HR SC 01/31/25 18:00 02/03/25 17:51 2 UNITS Dextrose 50 ml UD IV 01/31/25 17:00 Fat Emulsion Intravenous 50 ml/ Sodium Chloride 10 meq/Sodium Acetate 10 meq/ Magnesium Sulfate 4 meq/ Multivitamins 10 ml/Chromium/ Copper/Manganese/ Zinc 1 ml/Insulin Human Regular 10 units/Sodium Phosphate 20 meq/ Potassium Acetate 20 meq/Amino Acids/Dextrose 834.6 ml @ 35 mls/hr [id number] IV 02/02/25 22:00 02/03/25 21:59 02/02/25 22:17 35 MLS/HR Fat Emulsion Intravenous 100 ml/Sodium Acetate 40 meq/Potassium Acetate 20 meq/ Magnesium Sulfate 8 meq/ Multivitamins 10 ml/Chromium/ Copper/Manganese/ Zinc 1 ml/Insulin Human Regular 7 units/Amino Acids/ Dextrose/Purified Water 1,143.07 ml @ 47 mls/hr [id number] IV 02/03/25 22:00 02/04/25 21:59 Norepinephrine Bitartrate 250 ml @ 3.75 mls/hr Q24H IV 02/03/25 13:45 02/03/25 18:02 3.75 MLS/HR Vancomycin HCl 0 ml @ 0 mls/hr UD IV 02/03/25 18:30 Meropenem 50 ml @ 17 mls/hr Q12HR IV 02/03/25 22:00 laboratory and microbiology Laboratory Tests 02/03/25 03:00 Test 02/03/25 03:00 Range/Units Serum Glucose 167 H 74-106 mg/dL Microbiology Date/Time Source Procedure Growth Status 01/31/25 13:30 Aspirate Gram Stain - Final Resulted 01/31/25 13:30 Aspirate Body Fluid Culture - Preliminary Resulted 01/29/25 14:00 Sputum Gram Stain - Final Complete 01/29/25 14:00 Respiratory Culture - Final Presumptive Zoe albicans Complete 01/29/25 10:40 Blood Blood Culture - Final NO GROWTH AFTER 5 DAYS OF INCUBATION. Complete 01/28/25 12:55 Voided Urine Urine Culture - Final Complete 01/13/25 17:10 Nose MRSA Screen - Final Complete Labs and/or images reviewed: Labs reviewed by me Problem List/Assessment/Plan Problem List/Assessment/Plan This is a 80-year-old lady with past medical history of hypertension, AFib (on Eliquis), diabetes type 2, CKD, came to the hospital due to abdominal pain, and constipation. Admitted on 01/13/2025. Found to have peritonitis due to bowel perforation, and underwent emergent laparotomy with subsequent resection of perforated small bowel and enteroenterostomy. 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 * RASS score 0 CARDIOVASCULAR: Septic shock secondary to perforation of the hollow viscus Paroxysmal atrial fibrillation Hypercoagulable state Chronic diastolic heart failure with preserved ejection fraction * Echo from 01/15 shows, NORMAL LV EF AND IS 65%, mild LVH and mild LV diastolic dysfunction * Chest xray demonstrated bibasilar atelectasis * [id number] score more than 5 * hold Lovenox because of low hemoglobin PULMONARY: Acute hypoxic respiratory failure secondary to bilateral pleural effusion/pneumonia Chest x-ray demonstrated bilateral hazy opacities * Sputum culture from 01/29 shows presumptive Zoe albicans * On mechanical ventilation tidal volume 450, RR 12, FiO2 30% and peep 5 * Failed multiple CPAP trials GASTROINTESTINAL: Peritonitis due to Perforation of the small bowel, status post exploratory laparotomy Transaminitis secondary to shock Perisplenic abscess * Peritoneal fluid culture from 01/13 shows E coli and Klebsiella pneumoniae sensitive to meropenem (given for 11 days, stopped on 01/31) * CT scan on 01/31 shows, moderate sized fluid collection in the perisplenic region * IR consulted, put pigtail drain, and has drained 50 cc purulent fluid * Patient has brownish discharge of the drain * Small bowel series, normal study * Patient has leakage from surgical area and drainage * Surgery evaluated at the bedside on 02/03, open to lilly, drained greenish- brownish fluid * Plan: Surgical evaluation tomorrow GENITOURINARY: ISRRAEL on CKD secondary to shock/VMN (baseline record not available) * Monitoring ENDOCRINE: History of hypothyroidism Type 2 diabetes mellitus, hemoglobin A1c 8.2 * Few episodes of hypoglycemia * TSH is raised at 16.29, normal free T4 METABOLIC: Hypokalemia Hyperkalemia Hyponatremia, Nephrology recommended D5W at 75 mL/hour Severe metabolic protein malnutrition * Anion gap metabolic acidosis secondary to bowel ischemia leading to lactic acidosis * Contraction alkalosis HEME: Acute on chronic anemia secondary to hemodilution/post surgical 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 * 3 unit of PRBC and platelet given since the surgery INFECTIOUS DISEASE: Sepsis with septic shock secondary to perforation of the small bowel * Blood culture from 01/29 preliminary result shows Gram-positive rods (1/4 sets of blood culture) * Discontinued levofloxacin Flagyl on 02/03 * Plan: Started on vancomycin and meropenem on 02/03 MUSCULOSKELETAL: Rib fracture, due to fall DIET: NPO, TPN DVT prophylax: Hold GI prophylaxis: Pantoprazole Bowel regimen: Code status: Full code LINES/DRAINS/ACCESS: ETT: Intubated on 01/14/25 IV access: Rt upper thigh PICC placed on 01/26/2025 Drips: off from pressor and sedatives Leach catheter: Placed on 0 9 /0 5 DISPOSITION: ICU status Patient's status discussed with patient and patient's son at the bedside. Critical care time spent more than 83 minutes, including patient care, chart review, and updating the family and dw speech correction consultant. Excluding any procedures. Case discussed with Dr. Self Plan discussed with: Patient My Orders My Orders Orders - GIGI FELIZ RESDIADRIANA Procedure Category Date Status Time Vancomycin Per PHA 02/03/25 In Process Pharmacy 18:30 Meropenem 1gm Ivpb PHA 02/03/25 In Process (Merrem 1gm/50ml) 22:00 Complete Blood Count LAB 02/04/25 Verified 05:00 Chest Xray 1 View XY 02/04/25 Logged 04:00 Abg W/ Co-Ox RT 02/04/25 Logged 04:00 Vancomycin PHA 9/25/25 In Process 1.25gm/250ml 18:45 Vancomycin,Random LAB 02/04/25 Verified 05:00 Dietary Evaluation Review Comments: Nutrition Recommendation: 1) TPN to meet at least 75% estimated needs within 7 days 2) Monitor NPO status, lab values, wt trend, I/O Expected Outcomes/Goals: To meet >75% estimated needs Lab values to improve Fu 2-3 days CC Plasma Assessment Blood Product Administration S: [id number] Date of Service: Feb 03, 2025 Billing Provider: ZBIGNIEW SELF MD Common Visit Codes: 92222-DTGEITRZ CARE 30-74 MIN, 48424-CATPTIMF CARE-EACH +30MIN GIGI FELIZ RESDIENT Feb 03, 2025 19:00 ZBIGNIEW SELF MD Feb 06, 2025 11:04
[2025-02-03] MEDS: VANCOMYCIN 1.25GM/250ML 250 ML IV ONE (19:55)
[2025-02-03] MEDS: MEROPENEM 1GM IVPB 50 ML IV SCH (21:37)
[2025-02-03] MEDS: TPN PER PHARMACY IV NR (21:41)
[2025-02-04] VITALS (103 sets, daily range): BP systolic 75–149; BP diastolic 14–78; PULSE 89–127; RESP 11–26; TEMP 96.3–99.3; O2SAT 91–100
[2025-02-04 03:55] LABS: Hematocrit 25.9 % (36.0-46.0); Hemoglobin 8.5 g/dL (12.2-16.2); Mean Corpuscular Hemoglobin 28.5 pg (28.0-32.0); Mean Corpuscular Volume 87.2 fL (80.0-100.0); Nucleated Red Blood Cells % 0.0 %
[2025-02-04 04:12] LABS: Anion Gap 8 (5-15); BUN/Creatinine Ratio 33.3 (10.0-20.0); Carbon Dioxide 22 mmol/L (20-31); Magnesium 1.9 mg/dL (1.6-2.6); Sodium 138 mmol/L (136-145)
[2025-02-04 04:13] LABS: Alanine Aminotransferase < 9 U/L (7-40); Albumin 2.1 g/dL (3.2-4.8); Alkaline Phosphatase 125 U/L (46-116); Bilirubin, Total 0.7 mg/dL (0.2-1.0); Blood Urea Nitrogen 36 mg/dL (9-23); Calcium 8.3 mg/dL (8.7-10.4); Chloride 108 mmol/L (98-107); Glucose 188 mg/dL (74-106); Potassium 3.5 mmol/L (3.5-5.1); Total Protein 5.4 g/dL (5.7-8.2)
--- NOTE | 2025-02-04 05:51 | DVH ---
CHEST RADIOGRAPH Indication: pneumonia Technique: Single frontal view of the chest was obtained COMPARISON: XY CHEST XRAY 1 VIEW on DOS: 02/03/25, XY CHEST XRAY 1 VIEW on DOS: 02/02/25, XY CHEST PORT ABLE on DOS: 02/01/25, XY CHEST PORTABLE on DOS: 01/31/25, XY CHEST PORTABLE on DOS: 01/30/25 FINDINGS: Lines and Tubes: Endotracheal tube in satisfactory position. Enteric catheter in satisfactory positio n. Lungs: Low lung volumes. Pleura: No effusion. No pneumothorax. Cardiomediastinal contours: Unremarkable. Bones: Unremarkable. IMPRESSION: Lines and tubes in satisfactory position. No significant interval change.
[2025-02-04 07:21] LABS: INR 1.74 (0.9-1.15); Partial Thromboplastin Time 51.8 SEC (24.5-34.5); Prothrombin Time 17.5 sec (9.3-11.8)
[2025-02-04] MEDS ORDERED: fentaNYL CITRATE 100 MCG/2 ML VL ONE (07:35)
[2025-02-04] MEDS ORDERED: HYDROmorphone HCL 2 MG/ML VL/or syr ONE (07:35)
[2025-02-04] MEDS ORDERED: fentaNYL CITRATE 5 ML ONE (07:35)
[2025-02-04] MEDS ORDERED: MIDAZOLAM HCL 2MG/2ML 2ml VIAL (1mg/ml) ONE (07:35)
[2025-02-04] MEDS ORDERED: ROCURONIUM 10MG/ML 10ML VIAL IV ONE ×2 (08:09→09:34)
[2025-02-04 08:23] LABS: Base Excess -2.8 mmol/L (-2.0-3.0)
--- NOTE | 2025-02-04 11:05 | DVHOP ---
DATE OF SURGERY: 02/04/2025 PREOPERATIVE DIAGNOSES: Enterocutaneous fistula, peritonitis, septic shock, ischemic bowel, ventilator dependency. POSTOPERATIVE DIAGNOSES: Enterocutaneous fistula, peritonitis, septic shock, ischemic bowel, ventilator dependency. SURGEON: Christian Christy MD. EVAPORATOR SUPERVISOR: Jean Claude Preciado. ANESTHESIA: General endotracheal. ANESTHESIOLOGIST: Dr. Miramontes. PROCEDURES: Exploratory laparotomy, lysis of adhesions, evacuation of pelvic and abdominal infection, resection of proximal jejunum, ileoileostomy, and jejunojejunostomy. DESCRIPTION OF PROCEDURE: Under general endotracheal anesthesia with the patient's skin prepped and draped, the incision was opened after removing lilly and sutures from previous exploratory laparotomy. Copious amount of feculent material and pus was evacuated from pelvis and abdomen. Multiple interloop abscesses were evacuated. A large collection of infection was located in the pelvis and another one in the left upper quadrant adjacent to the spleen. Following evacuation of the infection, the lysis of adhesions was tediously undertaken. Adhesions were fibrous and extremely difficult to separate. However, with much effort to minimal injury to the serosal surfaces, the loops of bowel were identified, isolated, and individually inspected. Transverse colon and descending colon were visualized, were without any injury. The anterior surface of the stomach was densely adherent to the anterior abdominal wall. Following separation, again, there was no evidence of injury to the serosa. The area of previous perforation had a perforation adjacent to the anastomosis. The previous anastomosis was resected and submitted for histopathologic examination and following lysis of the ligament of Treitz in order to assure tension-free anastomosis and anastomosis between the proximal jejunal loops was accomplished by hand sewing technique using 3-0 Monocryl and 3-0 Prolene sutures for the inner and outer layer respectively. The mesenteric defect was approximated using 2-0 Monocryl suture. The abdomen was then profusely irrigated with 10 L of saline, which was aspirated. All 4 quadrants were drained by means of a Mendel-Steele drain inserted separately through all 4 quadrants and abdomen was closed using #1 double-stranded PDS suture and skin lilly with a applied over the staple line. The patient had several episodes of tachycardia and hypotension, which responded well to epinephrine as well as to other drug manipulations by Dr. Miramontes. She did receive a unit of transfusion during the procedure and left the operating room following an accurate needle and sponge counts, remaining intubated. Family by name of Chris Chavez is thoroughly informed at [phone]. Christian Christy MD PF/STEVEN TID: [id number] RECEIPT: [id number]
--- NOTE | 2025-02-04 11:13 | DVHPNRES ---
Progress Note Date Seen: Feb 04, 2025 Resident Creating Document: GIGI FEILZ AMBROSE Has the PT tested + for MRSA If YES, has PT been informed?: No Medical Necessity Reason Pt with a Central, PICC or Fol: Yes The following are medically ne: Central Line, Leach Catheter Reason for leach catheter: Strict I&O Subjective Review of Systems Patient seen and examined at the bedside. Status post laparoscopy. Sedated and on mechanical ventilation. Objective vital signs Vital Sign Date Time Temp Pulse Resp B/P (MAP) Pulse Ox O2 Delivery O2 Flow Rate FiO2 02/04/25 10:11 126 13 105/37 (59) 100 40 02/04/25 07:30 Mechanical Ventilator+ 02/04/25 04:00 97.9 97.9 Total Intake and Output 02/03/25 02/03/25 02/04/25 15:00 23:00 07:00 Intake Total 632.5 ml 1179.25 ml 478.25 ml Output Total 690 ml 925 ml Balance 632.5 ml 489.25 ml -446.75 ml medications Current Medications Medications Dose Ordered Sig/Isaura Route Start Time Stop Time Status Last Admin Dose Admin Pantoprazole Sodium 40 mg DAILY IV 01/13/25 10:00 02/03/25 09:21 40 MG Cefazolin Sodium 50 ml @ 100 mls/hr Q8HR IV 01/13/25 14:00 UNV Vasopressin 20 units/Sodium Chloride 100 ml @ 9 mls/hr Q11H7M IV 01/13/25 18:45 UNV Potassium Chloride 100 ml @ 50 mls/hr Q2H IV 01/16/25 12:45 01/16/25 18:44 UNV Vancomycin HCl 100 ml @ 100 mls/hr DAILY@1200 IV 01/20/25 12:00 UNV Sodium Chloride 10 ml QSHIFT@10,22 IV 01/26/25 22:00 02/03/25 21:37 10 ML Acetaminophen 650 mg Q6HP PRN GT 01/30/25 16:00 Amino Acids 0 ml @ 0 mls/hr PER PHARMACY IV 01/31/25 16:00 Fentanyl Citrate 250 ml @ 2.5 mls/hr Q24H IV 01/31/25 16:30 02/02/25 18:27 5 MLS/HR Diagnostic Test (Pha) 1 strip Q6HR 01/31/25 18:00 02/04/25 06:24 1 STRIP Insulin Human Regular FOLLOW SLIDING SCALE Q6HR SC 01/31/25 18:00 02/04/25 06:28 4 UNITS Dextrose 50 ml UD IV 01/31/25 17:00 Fat Emulsion Intravenous 100 ml/Sodium Acetate 40 meq/Potassium Acetate 20 meq/ Magnesium Sulfate 8 meq/ Multivitamins 10 ml/Chromium/ Copper/Manganese/ Zinc 1 ml/Insulin Human Regular 7 units/Amino Acids/ Dextrose/Purified Water 1,143.07 ml @ 47 mls/hr [id number] IV 02/03/25 22:00 02/04/25 21:59 02/03/25 21:41 47 MLS/HR Norepinephrine Bitartrate 250 ml @ 3.75 mls/hr Q24H IV 02/03/25 13:45 02/03/25 18:02 3.75 MLS/HR Vancomycin HCl 0 ml @ 0 mls/hr UD IV 02/03/25 18:30 Meropenem 50 ml @ 17 mls/hr Q12HR IV 02/03/25 22:00 02/03/25 21:37 17 MLS/HR Examination General: RASS 0, afebrile, mucosae are moist Cardiovascular: Normal S1 and S2. No murmurs, gallops or rubs Respiratory: Mechanically assisted ventilation, equal bilateral airway entree. Clear lung sounds on auscultation Abdomen: Soft, nontender, no organomegaly, normal bowel sounds MSK/skin: Patient has brownish discharge from drains with diffuse hemorrhagic vesicles and petechial/purpura lesions Neurological: Orientation cannot be assessed. No apparent motor no sensitive deficits. Pupils are isocoric and reactive laboratory and microbiology Laboratory Tests 02/04/25 03:24 Test 02/04/25 03:24 Range/Units Serum Glucose 188 H 74-106 mg/dL Microbiology Date/Time Source Procedure Growth Status 01/31/25 13:30 Aspirate Gram Stain - Final Resulted 01/31/25 13:30 Aspirate Body Fluid Culture - Preliminary Resulted 01/29/25 14:00 Sputum Gram Stain - Final Complete 01/29/25 14:00 Respiratory Culture - Final Presumptive Zoe albicans Complete 01/29/25 10:40 Blood Blood Culture - Final NO GROWTH AFTER 5 DAYS OF INCUBATION. Complete 01/28/25 12:55 Voided Urine Urine Culture - Final Complete 01/13/25 17:10 Nose MRSA Screen - Final Complete Problem List/Assessment/Plan Problem List/Assessment/Plan This is a 80-year-old lady with past medical history of hypertension, AFib (on Eliquis), diabetes type 2, CKD, came to the hospital due to abdominal pain, and constipation. Admitted on 01/13/2025. Found to have peritonitis due to bowel perforation, and underwent emergent laparotomy with subsequent resection of perforated small bowel and enteroenterostomy. Due to abnormal CARMEN drainage, second exploratory laparotomy performed on 02/04 and found to have perforation near to previous perforation area, underwent resection of area with subsequent anastomosis of proximal jejunal loops. 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 * RASS score 0 CARDIOVASCULAR: Septic shock secondary to perforation of the hollow viscus Paroxysmal atrial fibrillation Hypercoagulable state Chronic diastolic heart failure with preserved ejection fraction * Echo from 01/15 shows, NORMAL LV EF AND IS 65%, mild LVH and mild LV diastolic dysfunction * Chest xray demonstrated bibasilar atelectasis * [id number] score more than 5 * hold Lovenox because of low hemoglobin PULMONARY: Acute hypoxic respiratory failure secondary to bilateral pleural effusion/pneumonia Chest x-ray demonstrated bilateral hazy opacities * Sputum culture from 01/29 shows presumptive Zoe albicans * On mechanical ventilation tidal volume 450, RR 12, FiO2 30% and peep 5 * Failed multiple CPAP trials GASTROINTESTINAL: Peritonitis due to Perforation of the small bowel, status post exploratory laparotomy Transaminitis secondary to shock Perisplenic abscess * Peritoneal fluid culture from 01/13 shows E coli and Klebsiella pneumoniae sensitive to meropenem (given for 11 days, stopped on 01/31) * CT scan on 01/31 shows, moderate sized fluid collection in the perisplenic region * IR consulted, put pigtail drain, and has drained 50 cc purulent fluid * Patient has brownish discharge of the drain * Small bowel series, normal study * Patient has leakage from surgical area and drainage * Surgery evaluated at the bedside on 02/03, open to lilly, drained greenish- brownish fluid * Plan: Surgical evaluation tomorrow GENITOURINARY: ISRRAEL on CKD secondary to shock/VMN (baseline record not available) * Monitoring ENDOCRINE: History of hypothyroidism Type 2 diabetes mellitus, hemoglobin A1c 8.2 * Few episodes of hypoglycemia * TSH is raised at 16.29, normal free T4 METABOLIC: Hypokalemia Hyperkalemia Hyponatremia, Nephrology recommended D5W at 75 mL/hour Severe metabolic protein malnutrition * Anion gap metabolic acidosis secondary to bowel ischemia leading to lactic acidosis * Contraction alkalosis HEME: Acute on chronic anemia secondary to hemodilution/post surgical 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 * 3 unit of PRBC and platelet given since the surgery INFECTIOUS DISEASE: Sepsis with septic shock secondary to perforation of the small bowel * Blood culture from 01/29 preliminary result shows Gram-positive rods (1/4 sets of blood culture) * Discontinued levofloxacin Flagyl on 02/03 * Plan: Started on vancomycin and meropenem on 02/03 MUSCULOSKELETAL: Rib fracture, due to fall DIET: NPO, TPN DVT prophylax: Hold GI prophylaxis: Pantoprazole Bowel regimen: Code status: Full code LINES/DRAINS/ACCESS: ETT: Intubated on 01/14/25 IV access: Rt upper thigh PICC placed on 01/26/2025 Drips: off from pressor and sedatives Leach catheter: Placed on 0 9 /0 5 CARMEN drainage: For CARMEN drain in 4 quadrants of abdomen DISPOSITION: ICU status Patient's status discussed with patient and patient's son at the bedside. Critical care time spent more than 83 minutes, including patient care, chart review, and updating the family. Excluding any procedures. Case discussed with Dr. Wagner Plan discussed with: Patient My Orders My Orders Orders - GIGI FELIZ RESDIADRIANA Procedure Category Date Status Time Vancomycin Per PHA 02/03/25 In Process Pharmacy 18:30 Meropenem 1gm Ivpb PHA 02/03/25 In Process (Merrem 1gm/50ml) 22:00 Chest Xray 1 View XY 02/04/25 Resulted 04:00 Abg W/ Co-Ox RT 02/04/25 Logged 04:00 Dietary Evaluation Review Comments: Nutrition Recommendation: 1) TPN to meet at least 75% estimated needs within 7 days 2) Monitor NPO status, lab values, wt trend, I/O Expected Outcomes/Goals: To meet >75% estimated needs Lab values to improve Fu 2-3 days CC Plasma Assessment Blood Product Administration S: [id number] GIGI FELIZ Feb 04, 2025 11:13
[2025-02-04] MEDS: SODIUM CHLORIDE 0.9% 500 ML IV ONE ×2 (11:25→17:19)
[2025-02-04] MEDS: LACTATED RINGER'S 2,000 ML IV ONE (11:32)
[2025-02-04] MEDS: POTASSIUM PHOSPHATE 22 MEQ in SODIUM CHL 0.9% 100 ML IV ONE (15:26)
[2025-02-04] MEDS: POVIDONE IODINE 10 % TOPICAL OINT 30GM TOP ONE (20:01)
[2025-02-04] MEDS: VANCOMYCIN 750MG KIT 100 ML IV SCH (20:10)
[2025-02-04] MEDS: TPN PER PHARMACY IV NR (22:06)
[2025-02-05] VITALS (115 sets, daily range): BP systolic 85–166; BP diastolic 14–89; PULSE 100–126; RESP 11–25; TEMP 97.5–99.2; O2SAT 83–100
[2025-02-05 03:49] LABS: Hematocrit 28.0 % (36.0-46.0); Hemoglobin 8.9 g/dL (12.2-16.2); Mean Corpuscular Hemoglobin 27.6 pg (28.0-32.0); Mean Corpuscular Volume 86.9 fL (80.0-100.0)
[2025-02-05 04:07] LABS: Anion Gap 10 (5-15); BUN/Creatinine Ratio 32.6 (10.0-20.0); Bilirubin, Total 1.1 mg/dL (0.2-1.0); Calcium 8.8 mg/dL (8.7-10.4); Magnesium 2.0 mg/dL (1.6-2.6); Potassium 4.6 mmol/L (3.5-5.1); Sodium 138 mmol/L (136-145)
[2025-02-05 04:09] LABS: Alanine Aminotransferase < 9 U/L (7-40); Albumin 1.9 g/dL (3.2-4.8); Alkaline Phosphatase 116 U/L (46-116); Blood Urea Nitrogen 42 mg/dL (9-23); Carbon Dioxide 18 mmol/L (20-31); Chloride 110 mmol/L (98-107); Glucose 377 mg/dL (74-106); Total Protein 4.8 g/dL (5.7-8.2)
--- NOTE | 2025-02-05 05:56 | DVH ---
CHEST RADIOGRAPH Indication: Pneumonia Technique: Single frontal view of the chest was obtained COMPARISON: XY CHEST XRAY 1 VIEW on DOS: 02/04/25, XY CHEST XRAY 1 VIEW on DOS: 02/03/25, XY CHEST XRAY 1 VIEW on DOS: 02/02/25, XY CHEST PORTABLE on DOS: 02/01/25, XY CHEST PORTABLE on DOS: 01/31/25 FINDINGS: Lines and Tubes: Slight interval retraction of the endotracheal tube such that the tip now projects a pproximately 4.6 cm above the level of the vijay. Enteric catheter unchanged. Lungs: Stable moderate diffuse increased prominence of the pulmonary vasculature and small left pleur al effusion. No evidence of focal consolidation. No pneumothorax. Cardiomediastinal contours: Cardiomegaly. Bones: Unremarkable IMPRESSION: 1. Slight interval retraction of the endotracheal tube. Enteric catheter unchanged. 2. Stable cardiomegaly, small left pleural effusion and moderate diffuse increased prominence of the pulmonary vasculature.
[2025-02-05 06:49] LABS: Total Cells Counted 100.0 (100)
[2025-02-05 07:18] LABS: Base Excess -7.7 mmol/L (-2.0-3.0)
--- NOTE | 2025-02-05 07:48 | DVHPN2 ---
Progress Note Date Seen: Feb 05, 2025 Has the PT tested + for MRSA If YES, has PT been informed?: No Medical Necessity Reason Pt with a Central, PICC or Fol: Yes The following are medically ne: Central Line, Leach Catheter Reason for leach catheter: Strict I&O Objective vital signs Vital Sign Date Time Temp Pulse Resp B/P (MAP) Pulse Ox O2 Delivery O2 Flow Rate FiO2 02/05/25 06:30 106 16 119/35 (63) 100 02/05/25 06:10 30 02/05/25 06:00 Mechanical Ventilator+ 02/05/25 04:31 99.2 99.2 Total Intake and Output 02/04/25 02/04/25 02/05/25 15:00 23:00 07:00 Intake Total 938.25 ml 1199.50 ml 509.75 ml Output Total 115 ml 695 ml 560 ml Balance 823.25 ml 504.50 ml -50.25 ml medications Current Medications Medications Dose Ordered Sig/Isaura Route Start Time Stop Time Status Last Admin Dose Admin Pantoprazole Sodium 40 mg DAILY IV 01/13/25 10:00 02/04/25 11:31 40 MG Cefazolin Sodium 50 ml @ 100 mls/hr Q8HR IV 01/13/25 14:00 UNV Vasopressin 20 units/Sodium Chloride 100 ml @ 9 mls/hr Q11H7M IV 01/13/25 18:45 UNV Potassium Chloride 100 ml @ 50 mls/hr Q2H IV 01/16/25 12:45 01/16/25 18:44 UNV Vancomycin HCl 100 ml @ 100 mls/hr DAILY@1200 IV 01/20/25 12:00 UNV Sodium Chloride 10 ml QSHIFT@10,22 IV 01/26/25 22:00 02/04/25 22:06 10 ML Acetaminophen 650 mg Q6HP PRN GT 01/30/25 16:00 Amino Acids 0 ml @ 0 mls/hr PER PHARMACY IV 01/31/25 16:00 Fentanyl Citrate 250 ml @ 2.5 mls/hr Q24H IV 01/31/25 16:30 02/04/25 15:31 2.5 MLS/HR Diagnostic Test (Pha) 1 strip Q6HR 01/31/25 18:00 02/05/25 05:38 1 STRIP Insulin Human Regular FOLLOW SLIDING SCALE Q6HR SC 01/31/25 18:00 02/05/25 06:03 16 UNITS Dextrose 50 ml UD IV 01/31/25 17:00 Norepinephrine Bitartrate 250 ml @ 3.75 mls/hr Q24H IV 02/03/25 13:45 02/04/25 17:43 15 MLS/HR Vancomycin HCl 0 ml @ 0 mls/hr UD IV 02/03/25 18:30 Meropenem 50 ml @ 17 mls/hr Q12HR IV 02/03/25 22:00 02/04/25 21:59 17 MLS/HR Fat Emulsion Intravenous 100 ml/Sodium Acetate 40 meq/Sodium Phosphate 10 meq/ Potassium Acetate 30 meq/Magnesium Sulfate 12 meq/ Multivitamins 10 ml/Chromium/ Copper/Manganese/ Zinc 1 ml/Insulin Human Regular 10 units/Amino Acids/ Dextrose/Purified Water 1,151.6 ml @ 48 mls/hr Q24H IV 02/04/25 22:00 02/05/25 21:59 02/04/25 22:06 48 MLS/HR Vancomycin HCl 100 ml @ 100 mls/hr DAILY@1999 IV 02/04/25 20:00 02/04/25 20:10 100 MLS/HR laboratory and microbiology Laboratory Tests 02/05/25 03:00 Test 02/05/25 03:00 Range/Units Serum Glucose 377 H 74-106 mg/dL Problem List/Assessment/Plan Problem List/Assessment/Plan 01/14/25 afebrile, low dose BP support, received transfusion, I believe her decreased hematocrit is due to hemodilution. abdomen non distended, soft, wound clean and well approximated, drainage serous . remains intubated and sedated 01/16/25 ALKALOSIS, ABDOMEN NON DISTENDED, SOFT, DRAINAGE SEROUS, WOUND CLEAN AND WELL APPROXIMATED 01/17/25 improved, thrombocytopenia possibly made worse by Fluconazole,will DC, abdomen non distended, wound well approximated without infection, TATY drainage serous, CVP 6, good urine output. 01/18/25 abg reviewed, ,abdomen soft, non distended, TATY drainage clear serous, no bowel activity, febrile, urine output ok, continues with thrombocytopenia,pt and inr slightly elevated. prognosis grave. 01/20/25remains sedated on ventilator, abdomen soft, non distended, faint bowel sounds auscultated by nurse, wound clean and well approximated, TATY drainage clear serous. continues with thrombocytopenia, still behind on intravascular volume( BUN and Creatinine elevated), i would give more IV fluids and DC vancomycin. 01/25/25 afebrile, normotensive, wound clean and well approximated, TATY drainage serous, abdomen non distended, soft, gastrografin small bowel series shows non obstructed GI tract and no evidence of extravasation. It is OK to initiate enteric feedings. 01/29/25 16 DAYS POST OPERATIVELY TRHE TATY DRAINAGE WHICH HAD CONSISTENTLY BEEN SEROUS OR SERO SANGUINEOUS HAS BECOME "DIRTY" BROWNISH DISCOLORATION, HER WOUND IS CLEAN AND WELL APPROXIMATED AND HER ABDOMEN IS SOFT AND NON DISTENDED, CT SCAN SHOWS SO0ME FLUID AND ACCUMULATION OF FLUID AROUND THE SPLEEN, WILL REQUEST CT GUIDED ASPIRATION OF SAME, WILL ORDER IRRIGATION OF DRAINS. SHE SI AFEBRILE AND MAINTAINS NORMAL BLOOD PRESSURE, HER WBC IS NORMAL. 01/30/25 improved, awake, being weaned off vent. abdomen non distended, non tender, taty drainage clearing with irrigation 02/02/25clinically unchanged, gastrografin small bowel series reported and normal, no extravasation reported, will order a follow ujp KUB for tomorrow AM 02/03/25 PATIENT HAD A GASTROGRAFIN SMALL BOWEL SERIES AND A FOLLOW UP KUB X RAYS NEITHER ONE OF WHICH SHOW EXTRAVASATION OF CONTRAST OR EVIDENCE OF FREE CONTRAST IN THE PERITONEAL CAVITY. THERE IS HOWEVER VISCOUS, BROWNISH FLUID DRAINING VIA BOTH TATY DRAINS AND THROUGH INFRAUMBILICAL PORTION OF MIDLINE WOUND, I REMOVED THE RICHIE FROM THE 3 CM SECTION OF THE INFRAUMBILICAL WOUND AND EVACUATED ABOUT 30 CC OF THIS FLUID AND INSTRUCTED THE NURSE TO PLACE A STOMA APPLIANCE ON THIS OPENING. 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 TODAY HER WBC IS ELEVATED, ABDOMEN CONTINUES TO BE NON DISTENDED, SOFT, BUT SHE DOES HAVE SLIGHT TENDERNESS IN THE PERIUMBILICAL AREA. I WILL TREAT THIS EXPECTANTLY FORM THE TIME BEING IN THE HOPE THAT THIS IS A "CONTROLLED" FISTULA AND HOPEFUL WILL HEAL SPONTANEOUSLY WITH NPO AND NUTRITIONAL SUPPORT. WILL WATCH CLOSELY, AFTER A FEW DAYS WILL GET A FISTULOGRAM TO PIN POINT THE ENTERIC ORIGIN OF THE FISTULIZATION. CONTINUE NGT SUCTION AND DRAIN IRRIGATION ORDERED02/05/25 02/05/25 remains sedated and intubated?ventilated, abdomen non distended soft, wound vac in place. TATY drainage serosanguineous Plan discussed with: Other Dietary Evaluation Review Comments: Nutrition Recommendation: 1) TPN to meet at least 75% estimated needs within 7 days 2) Monitor NPO status, lab values, wt trend, I/O Expected Outcomes/Goals: To meet >75% estimated needs Lab values to improve Fu 2-3 days MELVA RAMESH MD Feb 05, 2025 07:48
--- NOTE | 2025-02-05 13:11 | DVHPN2 ---
Subjective The patient is seen and examined at bedside. Remained intubated. Status post laparoscopic Reviewed: Care Plan, H&P Changes from previous H/P or p: No Changes Gastrointestinal: Abdominal Pain Objective Vitals Vital Signs Date Time Temp Pulse Resp B/P (MAP) Pulse Ox O2 Delivery O2 Flow Rate FiO2 02/05/25 11:58 113 14 124/16 (52) 98 30 02/05/25 10:19 Mechanical Ventilator+ 02/05/25 08:01 99.1 99.1 Intake/Output Intake and Output 02/05/25 07:00 Intake Total 2647.50 ml Output Total 1370 ml Balance 1277.50 ml IV Total 2647.50 ml Output Urine Total 915 ml Gastric Drainage Total 100 ml Drainage Total 355 ml General Appearance: Other (Intubated, on vent, unable to exam) HEENT: Atraumatic, Mucous membr. moist/pink Neck: Supple Lungs: Clear to auscultation, Normal air movement, Other (Ventilation support) Cardiovascular: Regular rate, Normal S1, Normal S2, No murmurs, Gallops, Rubs Abdomen: Normal bowel sounds, Soft, No tenderness Medications Current Medications Medications Dose Ordered Sig/Isaura Route Start Time Stop Time Status Last Admin Dose Admin Pantoprazole Sodium 40 mg DAILY IV 01/13/25 10:00 02/05/25 09:44 40 MG Cefazolin Sodium 50 ml @ 100 mls/hr Q8HR IV 01/13/25 14:00 UNV Vasopressin 20 units/Sodium Chloride 100 ml @ 9 mls/hr Q11H7M IV 01/13/25 18:45 UNV Potassium Chloride 100 ml @ 50 mls/hr Q2H IV 01/16/25 12:45 01/16/25 18:44 UNV Vancomycin HCl 100 ml @ 100 mls/hr DAILY@1200 IV 01/20/25 12:00 UNV Sodium Chloride 10 ml QSHIFT@10,22 IV 01/26/25 22:00 02/05/25 09:52 10 ML Acetaminophen 650 mg Q6HP PRN GT 01/30/25 16:00 Amino Acids 0 ml @ 0 mls/hr PER PHARMACY IV 01/31/25 16:00 Fentanyl Citrate 250 ml @ 2.5 mls/hr Q24H IV 01/31/25 16:30 02/04/25 15:31 2.5 MLS/HR Diagnostic Test (Pha) 1 strip Q6HR 01/31/25 18:00 02/05/25 12:14 1 STRIP Insulin Human Regular FOLLOW SLIDING SCALE Q6HR SC 01/31/25 18:00 02/05/25 12:14 8 UNITS Dextrose 50 ml UD IV 01/31/25 17:00 Norepinephrine Bitartrate 250 ml @ 3.75 mls/hr Q24H IV 02/03/25 13:45 02/04/25 17:43 15 MLS/HR Vancomycin HCl 0 ml @ 0 mls/hr UD IV 02/03/25 18:30 Meropenem 50 ml @ 17 mls/hr Q12HR IV 02/03/25 22:00 02/05/25 09:44 17 MLS/HR Fat Emulsion Intravenous 100 ml/Sodium Acetate 40 meq/Sodium Phosphate 10 meq/ Potassium Acetate 30 meq/Magnesium Sulfate 12 meq/ Multivitamins 10 ml/Chromium/ Copper/Manganese/ Zinc 1 ml/Insulin Human Regular 10 units/Amino Acids/ Dextrose/Purified Water 1,151.6 ml @ 48 mls/hr Q24H IV 02/04/25 22:00 02/05/25 21:59 02/04/25 22:06 48 MLS/HR Vancomycin HCl 100 ml @ 100 mls/hr DAILY@1999 IV 02/04/25 20:00 02/04/25 20:10 100 MLS/HR Fat Emulsion Intravenous 150 ml/Sodium Acetate 50 meq/Magnesium Sulfate 12 meq/ Multivitamins 10 ml/Chromium/ Copper/Manganese/ Zinc 1 ml/Insulin Human Regular 10 units/Amino Acids/ Dextrose/Purified Water 1,139.1 ml @ 47.717 mls/hr [id number] IV 02/05/25 22:00 02/06/25 21:59 Laboratory Results Laboratory Tests 02/05/25 03:00 Chemistry Test 02/05/25 03:00 Albumin 1.9 g/dL (3.2-4.8) L Calcium Level 8.8 mg/dL (8.7-10.4) Magnesium Level 2.0 mg/dL (1.6-2.6) Phosphorus Level 4.4 mg/dL (2.4-5.1) Total Protein 4.8 g/dL (5.7-8.2) L LFT Test 02/05/25 03:00 Alanine Aminotransferase (ALT) < 9 U/L (7-40) Alkaline Phosphatase 116 U/L (46-116) Aspartate Amino Transferase (AST) 21 U/L (13-40) Total Bilirubin 1.1 mg/dL (0.2-1.0) H Urinalysis Test 01/14/25 02:00 Urine Color Yellow (Yellow) Urine Clarity Turbid (Clear) H Urine pH 6.0 (5.0-9.0) Urine Specific Clark 1.016 (1.001-1.035) Urine Protein 1+ (Negative) H Urine Ketones Trace (Negative) Urine Blood 1+ /uL (Negative) H Urine Nitrite Negative (Negative) Urine Bilirubin Negative (Negative) Urine Urobilinogen Normal mg/dL (Negative) Urine Leukocyte Esterase Negative /uL (Negative) Urine RBC 10 /hpf (0 - 4) Urine Microscopic WBC 2 /HPF (0-5) Urine Squamous Epithelial Cells Few /hpf (<5) Urine Amorphous Crystals Few /hpf (None Seen) Urine Bacteria None seen /hpf (None Seen) Urine Creatinine 34.09 mg/dL (30.0-125.0) Urine Protein/Creatinine Ratio 3.85 Urine Sodium 76 mmol/L (40-220) Urine Glucose Normal mg/dL (Normal) Urine Total Protein 131.1 mg/dL (1-14) H Blood Gas Results Test 02/05/25 07:12 Arterial Blood pH 7.358 (7.350-7.450) FiO2 % 30.0 Microbiology Microbiology Date/Time Source Procedure Growth Status 01/31/25 13:30 Aspirate Gram Stain - Final Complete 01/31/25 13:30 Aspirate Body Fluid Culture - Final Complete 01/29/25 14:00 Sputum Gram Stain - Final Complete 01/29/25 14:00 Respiratory Culture - Final Presumptive Zoe albicans Complete 01/29/25 10:40 Blood Blood Culture - Final NO GROWTH AFTER 5 DAYS OF INCUBATION. Complete 01/28/25 12:55 Voided Urine Urine Culture - Final Complete 01/13/25 17:10 Nose MRSA Screen - Final Complete Labs and/or images reviewed: Labs reviewed by me Assessment/Plan Assessment/Plan This is a 80-year-old lady with past medical history of hypertension, AFib (on Eliquis), diabetes type 2, CKD, came to the hospital due to abdominal pain, and constipation. Admitted on 01/13/2025. Found to have peritonitis due to bowel perforation, and underwent emergent laparotomy with subsequent resection of perforated small bowel and enteroenterostomy. Due to abnormal CARMEN drainage, second exploratory laparotomy performed on 02/04 and found to have perforation near to previous perforation area, underwent resection of area with subsequent anastomosis of proximal jejunal loops. 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 * RASS score 0 CARDIOVASCULAR: Septic shock secondary to perforation of the hollow viscus Paroxysmal atrial fibrillation Hypercoagulable state Chronic diastolic heart failure with preserved ejection fraction * Echo from 01/15 shows, NORMAL LV EF AND IS 65%, mild LVH and mild LV diastolic dysfunction * Chest xray demonstrated bibasilar atelectasis * [id number] score more than 5 * hold Lovenox because of low hemoglobin PULMONARY: Acute hypoxic respiratory failure secondary to bilateral pleural effusion/pneumonia Chest x-ray demonstrated bilateral hazy opacities * Sputum culture from 01/29 shows presumptive Zoe albicans * On mechanical ventilation tidal volume 450, RR 12, FiO2 30% and peep 5 * Failed multiple CPAP trials GASTROINTESTINAL: Peritonitis due to Perforation of the small bowel, status post exploratory laparotomy Transaminitis secondary to shock Perisplenic abscess * Peritoneal fluid culture from 01/13 shows E coli and Klebsiella pneumoniae sensitive to meropenem (given for 11 days, stopped on 01/31) * CT scan on 01/31 shows, moderate sized fluid collection in the perisplenic region * IR consulted, put pigtail drain, and has drained 50 cc purulent fluid * Patient has brownish discharge of the drain * Small bowel series, normal study * Patient has leakage from surgical area and drainage * Surgery evaluated at the bedside on 02/03, open to lilly, drained greenish- brownish fluid * Plan: Surgical evaluation tomorrow GENITOURINARY: ISRRAEL on CKD secondary to shock/VMN (baseline record not available) * Monitoring ENDOCRINE: History of hypothyroidism Type 2 diabetes mellitus, hemoglobin A1c 8.2 * Few episodes of hypoglycemia * TSH is raised at 16.29, normal free T4 METABOLIC: Hypokalemia Hyperkalemia Hyponatremia, Nephrology recommended D5W at 75 mL/hour Severe metabolic protein malnutrition * Anion gap metabolic acidosis secondary to bowel ischemia leading to lactic acidosis * Contraction alkalosis HEME: Acute on chronic anemia secondary to hemodilution/post surgical 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 * 3 unit of PRBC and platelet given since the surgery INFECTIOUS DISEASE: Sepsis with septic shock secondary to perforation of the small bowel * Blood culture from 01/29 preliminary result shows Gram-positive rods (1/4 sets of blood culture) * Discontinued levofloxacin Flagyl on 02/03 * Plan: Started on vancomycin and meropenem on 02/03 MUSCULOSKELETAL: Rib fracture, due to fall DIET: NPO, TPN DVT prophylax: Hold GI prophylaxis: Pantoprazole Bowel regimen: Code status: Full code LINES/DRAINS/ACCESS: ETT: Intubated on 01/14/25 IV access: Rt upper thigh PICC placed on 01/26/2025 Drips: off from pressor and sedatives Perez catheter: Placed on 0 9 /0 5 CARMEN drainage: For CARMEN drain in 4 quadrants of abdomen DISPOSITION: ICU status Critical care spent for this case today is 38 minutes. This medical document was created using an electronic medical record system with [employer] direct computerized dictation system. Although this document has been carefully reviewed, there may still be some phonetic and typographical errors. These areas are purely typographical due to imperfections of the software programs, and do not reflect any compromise in the patient's medical care. Plan discussed with: Patient Date of Service: Feb 05, 2025 Billing Provider: LEANN MORIN MD Common Visit Codes: 41129-[id number] CARE 30-74 MIN LEANN MORIN MD Feb 05, 2025 13:11
[2025-02-05] MEDS: SODIUM BICARB 8.4% 50Meq/50ml SYR Vial IV ONE (15:55)
[2025-02-05] MEDS: ALBUMIN 25% 100 ML IV ONE (15:59)
[2025-02-06] VITALS (112 sets, daily range): BP systolic 93–183; BP diastolic 53–112; PULSE 93–126; RESP 10–21; TEMP 97.3–98.8; O2SAT 98–100
[2025-02-06 04:48] LABS: Alkaline Phosphatase 95 U/L (46-116); Anion Gap 9 (5-15); BUN/Creatinine Ratio 43.5 (10.0-20.0); Calcium 9.0 mg/dL (8.7-10.4); Carbon Dioxide 24 mmol/L (20-31); Magnesium 2.3 mg/dL (1.6-2.6); Potassium 3.6 mmol/L (3.5-5.1); Sodium 143 mmol/L (136-145)
[2025-02-06 05:01] LABS: Alanine Aminotransferase < 9 U/L (7-40); Albumin 2.2 g/dL (3.2-4.8); Bilirubin, Total 1.2 mg/dL (0.2-1.0); Blood Urea Nitrogen 47 mg/dL (9-23); Chloride 110 mmol/L (98-107); Glucose 191 mg/dL (74-106); Total Protein 4.7 g/dL (5.7-8.2)
[2025-02-06 05:09] LABS: Hematocrit 19.9 % (36.0-46.0); Mean Corpuscular Hemoglobin 28.2 pg (28.0-32.0)
[2025-02-06 05:11] LABS: Mean Corpuscular Volume 85.1 fL (80.0-100.0); Nucleated Red Blood Cells % 0.1 %
[2025-02-06 05:31] LABS: Hemoglobin 6.6 g/dL (12.2-16.2)
--- NOTE | 2025-02-06 05:36 | DVH ---
CHEST RADIOGRAPH Indication: ventilated Technique: Single frontal view of the chest was obtained COMPARISON: XY CHEST XRAY 1 VIEW on DOS: 02/05/25, XY CHEST XRAY 1 VIEW on DOS: 02/04/25, XY CHEST XRAY 1 VIEW on DOS: 02/03/25, XY CHEST XRAY 1 VIEW on DOS: 02/02/25, XY CHEST PORTABLE on DOS: 02/01/25 FINDINGS: Lines and Tubes: Slight interval advancement of the endotracheal tube such that the tip now projects approximately 3.4 cm above the level of the vijay. Remaining lines and tubes unchanged. Lungs: Stable appearing left basilar opacity consistent with small pleural effusion and/or pulmonary airspace disease. Pleura: No effusion. No pneumothorax. Cardiomediastinal contours: Unremarkable Bones: Unremarkable IMPRESSION: 1. Slight interval advancement of the endotracheal tube such that the tip now projects approximately 3.4 cm above the level of the vijay. Remaining lines and tubes unchanged. 2. Stable appearing left lower lung zone opacity.
[2025-02-06 07:26] LABS: Base Excess -0.7 mmol/L (-2.0-3.0)
--- NOTE | 2025-02-06 10:21 | DVHPN2 ---
Subjective Date Seen: Feb 06, 2025 Post op day Post op day: 2 Patient reports: Other (Remains intubated) Objective Vitals Vital Sign Date Time Temp Pulse Resp B/P (MAP) Pulse Ox O2 Delivery O2 Flow Rate FiO2 02/06/25 10:10 112 18 177/88 (117) 99 30 02/06/25 08:00 Mechanical Ventilator+ 02/06/25 06:35 97.7 97.7 Total Intake and Output 02/05/25 02/05/25 02/06/25 14:59 22:59 06:59 Intake Total 647.75 ml 811 ml 538 ml Output Total 610 ml 590 ml Balance 647.75 ml 201 ml -52 ml Medications Current Medications Medications Dose Ordered Sig/Isaura Route Start Time Stop Time Status Last Admin Dose Admin Pantoprazole Sodium 40 mg DAILY IV 01/13/25 10:00 02/06/25 09:59 40 MG Cefazolin Sodium 50 ml @ 100 mls/hr Q8HR IV 01/13/25 14:00 UNV Vasopressin 20 units/Sodium Chloride 100 ml @ 9 mls/hr Q11H7M IV 01/13/25 18:45 UNV Potassium Chloride 100 ml @ 50 mls/hr Q2H IV 01/16/25 12:45 01/16/25 18:44 UNV Vancomycin HCl 100 ml @ 100 mls/hr DAILY@1200 IV 01/20/25 12:00 UNV Sodium Chloride 10 ml QSHIFT@10,22 IV 01/26/25 22:00 02/06/25 10:00 10 ML Acetaminophen 650 mg Q6HP PRN GT 01/30/25 16:00 Amino Acids 0 ml @ 0 mls/hr PER PHARMACY IV 01/31/25 16:00 Fentanyl Citrate 250 ml @ 2.5 mls/hr Q24H IV 01/31/25 16:30 02/06/25 06:06 15 MLS/HR Diagnostic Test (Pha) 1 strip Q6HR 01/31/25 18:00 02/06/25 05:29 1 STRIP Insulin Human Regular FOLLOW SLIDING SCALE Q6HR SC 01/31/25 18:00 02/06/25 05:29 4 UNITS Dextrose 50 ml UD IV 01/31/25 17:00 Norepinephrine Bitartrate 250 ml @ 3.75 mls/hr Q24H IV 02/03/25 13:45 02/04/25 17:43 15 MLS/HR Vancomycin HCl 0 ml @ 0 mls/hr UD IV 02/03/25 18:30 Meropenem 50 ml @ 17 mls/hr Q12HR IV 02/03/25 22:00 02/06/25 10:00 17 MLS/HR Vancomycin HCl 100 ml @ 100 mls/hr DAILY@2000 IV 02/04/25 20:00 02/05/25 20:20 100 MLS/HR Fat Emulsion Intravenous 150 ml/Sodium Acetate 50 meq/Magnesium Sulfate 12 meq/ Multivitamins 10 ml/Chromium/ Copper/Manganese/ Zinc 1 ml/Insulin Human Regular 10 units/Amino Acids/ Dextrose/Purified Water 1,139.1 ml @ 47 mls/hr [id number] IV 02/05/25 22:00 02/06/25 21:59 02/05/25 21:53 47 MLS/HR Labs and Microbiology Laboratory Tests 02/06/25 04:00 Test 02/06/25 04:00 Range/Units Serum Glucose 191 H 74-106 mg/dL Ass/Plan Labs and/or images reviewed: Labs reviewed by me Problem List 01/14/25 afebrile, low dose BP support, received transfusion, I believe her decreased hematocrit is due to hemodilution. abdomen non distended, soft, wound clean and well approximated, drainage serous . remains intubated and sedated 01/16/25 ALKALOSIS, ABDOMEN NON DISTENDED, SOFT, DRAINAGE SEROUS, WOUND CLEAN AND WELL APPROXIMATED 01/17/25 improved, thrombocytopenia possibly made worse by Fluconazole,will DC, abdomen non distended, wound well approximated without infection, TATY drainage serous, CVP 6, good urine output. 01/18/25 abg reviewed, ,abdomen soft, non distended, TATY drainage clear serous, no bowel activity, febrile, urine output ok, continues with thrombocytopenia,pt and inr slightly elevated. prognosis grave. 01/20/25remains sedated on ventilator, abdomen soft, non distended, faint bowel sounds auscultated by nurse, wound clean and well approximated, TATY drainage clear serous. continues with thrombocytopenia, still behind on intravascular volume( BUN and Creatinine elevated), i would give more IV fluids and DC vancomycin. 01/25/25 afebrile, normotensive, wound clean and well approximated, TATY drainage serous, abdomen non distended, soft, gastrografin small bowel series shows non obstructed GI tract and no evidence of extravasation. It is OK to initiate enteric feedings. 01/29/25 16 DAYS POST OPERATIVELY TRHE TATY DRAINAGE WHICH HAD CONSISTENTLY BEEN SEROUS OR SERO SANGUINEOUS HAS BECOME "DIRTY" BROWNISH DISCOLORATION, HER WOUND IS CLEAN AND WELL APPROXIMATED AND HER ABDOMEN IS SOFT AND NON DISTENDED, CT SCAN SHOWS SO0ME FLUID AND ACCUMULATION OF FLUID AROUND THE SPLEEN, WILL REQUEST CT GUIDED ASPIRATION OF SAME, WILL ORDER IRRIGATION OF DRAINS. SHE SI AFEBRILE AND MAINTAINS NORMAL BLOOD PRESSURE, HER WBC IS NORMAL. 01/30/25 improved, awake, being weaned off vent. abdomen non distended, non tender, taty drainage clearing with irrigation 02/02/25clinically unchanged, gastrografin small bowel series reported and normal, no extravasation reported, will order a follow ujp KUB for tomorrow AM 02/03/25 PATIENT HAD A GASTROGRAFIN SMALL BOWEL SERIES AND A FOLLOW UP KUB X RAYS NEITHER ONE OF WHICH SHOW EXTRAVASATION OF CONTRAST OR EVIDENCE OF FREE CONTRAST IN THE PERITONEAL CAVITY. THERE IS HOWEVER VISCOUS, BROWNISH FLUID DRAINING VIA BOTH TATY DRAINS AND THROUGH INFRAUMBILICAL PORTION OF MIDLINE WOUND, I REMOVED THE RICHIE FROM THE 3 CM SECTION OF THE INFRAUMBILICAL WOUND AND EVACUATED ABOUT 30 CC OF THIS FLUID AND INSTRUCTED THE NURSE TO PLACE A STOMA APPLIANCE ON THIS OPENING. 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 TODAY HER WBC IS ELEVATED, ABDOMEN CONTINUES TO BE NON DISTENDED, SOFT, BUT SHE DOES HAVE SLIGHT TENDERNESS IN THE PERIUMBILICAL AREA. I WILL TREAT THIS EXPECTANTLY FORM THE TIME BEING IN THE HOPE THAT THIS IS A "CONTROLLED" FISTULA AND HOPEFUL WILL HEAL SPONTANEOUSLY WITH NPO AND NUTRITIONAL SUPPORT. WILL WATCH CLOSELY, AFTER A FEW DAYS WILL GET A FISTULOGRAM TO PIN POINT THE ENTERIC ORIGIN OF THE FISTULIZATION. CONTINUE NGT SUCTION AND DRAIN IRRIGATION ORDERED02/05/25 02/05/25 remains sedated and intubated?ventilated, abdomen non distended soft, wound vac in place. TATY drainage serosanguineous Assessment/Plan 01/19/25 s/p Exploratory laparotomy, lysis of adhesions, extensive lavage, resection of perforated small bowel, enteroenterostomy. unchanged from yesterday abdomen soft, non distended, TATY drainage clear serous, no bowel activity, febrile, urine output ok, continues with thrombocytopenia, Plan: continue current treatment discussed with Dr. Christy 01/21/2025 s/p Exploratory laparotomy, lysis of adhesions, extensive lavage, resection of perforated small bowel, enteroenterostomy. abdomen soft, non distended, TATY drainage clear serous, no bowel activity, urine output ok, platelet count improved albumin low off pressors blood culture , gram negative rods Plan: continue meropenem antibiotics albumin x3 discussed with Dr. Christy 01/22/2025 s/p Exploratory laparotomy, lysis of adhesions, extensive lavage, resection of perforated small bowel, enteroenterostomy. abdomen soft, non distended, TATY drainage clear serous, no bowel activity, urine output ok, platelet count improved blood culture , gram positive rods labs reviewed Plan: continue with current treatment discussed with Dr. Christy 01/24/2025 s/p Exploratory laparotomy, lysis of adhesions, extensive lavage, resection of perforated small bowel, enteroenterostomy. abdomen soft, non distended, TATY drainage clear serous, no bowel activity, urine output ok, platelet count improved labs reviewed Plan: small bowel series discussed with Dr. Christy 01/31/2025 s/p Exploratory laparotomy, lysis of adhesions, extensive lavage, resection of perforated small bowel, enteroenterostomy. abdomen soft, non distended, TATY drainage brownish, urine output ok labs reviewed Plan: small bowel series on Friday discussed with Dr. Christy 02/06/2025 Surgery: Exploratory laparotomy, lysis of adhesions, evacuation of pelvic and abdominal infection, resection of proximal jejunum, ileostomy, and jejunostomy. Post-Op Day: 2 Notes and labs were reviewed. Hemoglobin was 6.6 this morning, and a blood transfusion is currently being administered. Physical Exam: - Currently intubated and receiving fentanyl without other sedation. - Abdomen is soft and nondistended. - Minimal serosanguineous fluid is noted in the TATY drains. - The wound VAC has minimal sanguineous output. The wound is clean. Plan: - Continue current treatment. - Discussed case with Dr. Christy no changes to the plan of care at this time. Prognosis: Poor Plan discussed with Dr. Christy Visit Coding Surgery Date of Service if different f: Feb 06, 2025 Billing Provider: MELVA CHRISTY MD Surgery Visit Codes: [id number] INP/OBS CARE(HIGH) CLAYTON POWERS NP Feb 06, 2025 10:21
[2025-02-06] MEDS: hydrALAZINE HCL 20 MG/ML VL IV PRN (14:41)
[2025-02-06] MEDS: METOPROLOL TARTRATE 1MG/1ML-5ML VIAL IV PRN (17:34)
[2025-02-06] MEDS: VANCOMYCIN 500mg/100mL 100 ML IV ONE (19:53)
[2025-02-06] MEDS: TPN PER PHARMACY IV NR (21:35)
--- NOTE | 2025-02-06 23:00 | DVHPN2 ---
Subjective DOS: 02/05/2025 Patient seen and examined at bedside. Intubated on mechanical ventilator. Overnight events reviewed HPI: A 80-year-old woman with past medical history of diabetes mellitus who presented to the ED on 01/13/25 with c/o abdominal pain x4 days. Patient reported 8 - 9/10 pain that was sharp and constant, throughout her abdomen. She did note pain medications make it better. Patient admitted to being noncompliant with her Eliquis for the past 2 weeks. Patient denied any fever, chills, chest pain, shortness of breath, or other acute complaints. She reported falling on her left side on January 06, 2025. Patient does not use home oxygen. Patient was admitted for further care, subsequently found to have perforated bowel and underwent exploratory laparotomy with repair of bowel perforation. Pulmonary consultation is requested for evaluation and management due to acute hypoxic respiratory failure requiring mechanical ventilator. Past Medical History: Diabetes mellitus Past Surgical History: , Hernia Repair Medications: Reviewed. Allergies: No known drug allergies. Family History: Arthritis. No family history of premature CAD. No family history of lung disorders. Social History: Nonsmoker. No alcohol or illicit drug use. Reviewed: Care Plan, H&P Changes from previous H/P or p: No Changes Gastrointestinal: Abdominal Pain Objective Vitals Vital Signs Date Time Temp Pulse Resp B/P (MAP) Pulse Ox O2 Delivery O2 Flow Rate FiO2 02/06/25 22:45 97 16 124/69 (87) 100 02/06/25 22:05 30 02/06/25 22:00 Mechanical Ventilator+ 02/06/25 20:00 98.2 98.2 Intake/Output Intake and Output 02/06/25 07:00 Intake Total 1987.00 ml Output Total 1200 ml Balance 787.00 ml IV Total 1987.00 ml Output Urine Total 1000 ml Gastric Drainage Total 20 ml Drainage Total 180 ml General Appearance: Other (Intubated, on vent, unable to exam) HEENT: Atraumatic, Mucous membr. moist/pink Neck: Supple Lungs: Clear to auscultation, Normal air movement, Other (Ventilation support) Cardiovascular: Regular rate, Normal S1, Normal S2, No murmurs, Gallops, Rubs Abdomen: Normal bowel sounds, Soft, No tenderness Medications Current Medications Medications Dose Ordered Sig/Isaura Route Start Time Stop Time Status Last Admin Dose Admin Pantoprazole Sodium 40 mg DAILY IV 01/13/25 10:00 02/06/25 09:59 40 MG Cefazolin Sodium 50 ml @ 100 mls/hr Q8HR IV 01/13/25 14:00 UNV Vasopressin 20 units/Sodium Chloride 100 ml @ 9 mls/hr Q11H7M IV 01/13/25 18:45 UNV Potassium Chloride 100 ml @ 50 mls/hr Q2H IV 01/16/25 12:45 01/16/25 18:44 UNV Vancomycin HCl 100 ml @ 100 mls/hr DAILY@1200 IV 01/20/25 12:00 UNV Sodium Chloride 10 ml QSHIFT@10,22 IV 01/26/25 22:00 02/06/25 21:33 10 ML Acetaminophen 650 mg Q6HP PRN GT 01/30/25 16:00 Amino Acids 0 ml @ 0 mls/hr PER PHARMACY IV 01/31/25 16:00 Fentanyl Citrate 250 ml @ 2.5 mls/hr Q24H IV 01/31/25 16:30 02/06/25 18:28 20 MLS/HR Diagnostic Test (Pha) 1 strip Q6HR 01/31/25 18:00 02/06/25 18:19 1 STRIP Insulin Human Regular FOLLOW SLIDING SCALE Q6HR SC 01/31/25 18:00 02/06/25 18:24 2 UNITS Dextrose 50 ml UD IV 01/31/25 17:00 Norepinephrine Bitartrate 250 ml @ 3.75 mls/hr Q24H IV 02/03/25 13:45 02/04/25 17:43 15 MLS/HR Vancomycin HCl 0 ml @ 0 mls/hr UD IV 02/03/25 18:30 Meropenem 50 ml @ 17 mls/hr Q12HR IV 02/03/25 22:00 02/06/25 21:33 17 MLS/HR Fat Emulsion Intravenous 150 ml/Sodium Phosphate 20 meq/ Potassium Acetate 40 meq/Magnesium Sulfate 10 meq/ Multivitamins 10 ml/Insulin Human Regular 10 units/ Amino Acids/ Dextrose/Purified Water 1,237.6 ml @ 51 mls/hr [id number] IV 02/06/25 22:00 02/07/25 21:59 02/06/25 21:35 51 MLS/HR Hydralazine HCl 10 mg Q6HP PRN IV 02/06/25 12:45 02/06/25 14:41 10 MG Metoprolol Tartrate 5 mg Q6HR PRN IV 02/06/25 16:30 02/06/25 17:34 5 MG Laboratory Results Laboratory Tests 02/06/25 04:00 Chemistry Test 02/06/25 04:00 Albumin 2.2 g/dL (3.2-4.8) L Calcium Level 9.0 mg/dL (8.7-10.4) Magnesium Level 2.3 mg/dL (1.6-2.6) Phosphorus Level 2.6 mg/dL (2.4-5.1) Total Protein 4.7 g/dL (5.7-8.2) L LFT Test 02/06/25 04:00 Alanine Aminotransferase (ALT) < 9 U/L (7-40) Alkaline Phosphatase 95 U/L (46-116) Aspartate Amino Transferase (AST) 21 U/L (13-40) Total Bilirubin 1.2 mg/dL (0.2-1.0) H Urinalysis Test 01/14/25 02:00 Urine Color Yellow (Yellow) Urine Clarity Turbid (Clear) H Urine pH 6.0 (5.0-9.0) Urine Specific [place] 1.016 (1.001-1.035) Urine Protein 1+ (Negative) H Urine Ketones Trace (Negative) Urine Blood 1+ /uL (Negative) H Urine Nitrite Negative (Negative) Urine Bilirubin Negative (Negative) Urine Urobilinogen Normal mg/dL (Negative) Urine Leukocyte Esterase Negative /uL (Negative) Urine RBC 10 /hpf (0 - 4) Urine Microscopic WBC 2 /HPF (0-5) Urine Squamous Epithelial Cells Few /hpf (<5) Urine Amorphous Crystals Few /hpf (None Seen) Urine Bacteria None seen /hpf (None Seen) Urine Creatinine 34.09 mg/dL (30.0-125.0) Urine Protein/Creatinine Ratio 3.85 Urine Sodium 76 mmol/L (40-220) Urine Glucose Normal mg/dL (Normal) Urine Total Protein 131.1 mg/dL (1-14) H Blood Gas Results Test 02/06/25 07:19 Arterial Blood pH 7.452 (7.350-7.450) FiO2 % 30.0 Microbiology Microbiology Date/Time Source Procedure Growth Status 01/31/25 13:30 Aspirate Gram Stain - Final Complete 01/31/25 13:30 Aspirate Body Fluid Culture - Final Complete 01/29/25 14:00 Sputum Gram Stain - Final Complete 01/29/25 14:00 Respiratory Culture - Final Presumptive Zoe albicans Complete 01/29/25 10:40 Blood Blood Culture - Final NO GROWTH AFTER 5 DAYS OF INCUBATION. Complete 01/28/25 12:55 Voided Urine Urine Culture - Final Complete 01/13/25 17:10 Nose MRSA Screen - Final Complete Assessment/Plan Assessment/Plan Impression: Acute hypoxic respiratory failure On mechanical ventilation Atelectasis Pleural effusion Acute metabolic encephalopathy secondary to acute hypoxic respiratory failure Pulmonary edema due to chronic heart failure with preserved ejection fraction Perforation of small bowel status post exploratory laparotomy Acute on chronic kidney disease secondary to shock, vasomotor nephropathy Anemia Sepsis with septic shock secondary to perforation of small bowel Events: Remains on vent support On assist control with respiratory rate of 12, tidal volume 450, PEEP of 5, FiO2 of 30% Taper FiO2 as tolerated ABG reviewed, compensated On Fentanyl drip. Continue antibiotics On Bicarb Patient receiving 1 unit PRBC Continue to monitor hemoglobin Transfuse if less than 7.0 g/dL. TPN for nutritional support Plan for CPAP trial in AM with PS 8, PEEP 5. Labs and imaging reviewed. Rest of plan as noted below. Plan: s/p intubation on mechanical ventilator On assist control with respiratory rate of 12, tidal volume 450, PEEP of 5, FiO2 of 30% Titrate FIO2 to keep O2 saturation above 92%. VAP bundle Daily ABG and CXR while intubated. Pressors as necessary for hemodynamic support. Titrate to keep MAP above 65 mmHg/SBP above 90 mmHg. Continue antibiotics. F/u cultures. Monitor renal function due to Acute kidney injury. Monitor electrolytes. Supplement as necessary. Monitor K, mag Monitor hemoglobin Transfuse if less than 7.0 g/dL. Nutritional support. Accu-Cheks, ISS. GI/DVT prophylaxis. Condition: Critical Prognosis: Poor given multiple comorbidities. Rest of plan per hospitalist and other consultants. A total of 35 minutes of critical care time was spent reviewing the patient record, examining the patient, making a diagnostic and therapeutic plan, discussing this plan with the medical personnel, following up on diagnostic studies and following the patient for clinical stability excluding any and all procedures. At least 50% of this time was spent in direct, [id number] contact. Thank you for allowing me to participate in this patient's care. Further recommendations will depend on patient's clinical course. Please do not hesitate to contact me if you have any questions or concerns. This medical document was created using an electronic medical record system with [employer] system. Although this document has been carefully reviewed, there may still be some phonetic and typographical errors. These areas are purely typographical due to imperfections of the software programs, and do not reflect any compromise in the patient's medical care. Plan discussed with: Other (MASHA Ortiz) My Orders Orders - MORA LANGSTON MD Procedure Category Date Status Time Ventilator Orders RT 02/06/25 Transmitted 16:33 Cpap Trial For Am ORDERS 02/06/25 Transmitted 16:33 Chest Portable XY 02/07/25 Logged 04:00 Date of Service: Feb 05, 2025 Billing Provider: MORA LANGSTON MD Common Visit Codes: [id number] INP/OBS CARE(HIGH), [id number] CARE 30-74 MIN MORA LANGSTON MD Feb 06, 2025 23:00
--- NOTE | 2025-02-06 23:35 | DVHPN2 ---
Subjective DOS: 02/06/2025 Patient seen and examined at bedside. Intubated on mechanical ventilator. Overnight events reviewed HPI: A 80-year-old woman with past medical history of diabetes mellitus who presented to the ED on 01/13/25 with c/o abdominal pain x4 days. Patient reported 8 - 9/10 pain that was sharp and constant, throughout her abdomen. She did note pain medications make it better. Patient admitted to being noncompliant with her Eliquis for the past 2 weeks. Patient denied any fever, chills, chest pain, shortness of breath, or other acute complaints. She reported falling on her left side on January 06, 2025. Patient does not use home oxygen. Patient was admitted for further care, subsequently found to have perforated bowel and underwent exploratory laparotomy with repair of bowel perforation. Pulmonary consultation is requested for evaluation and management due to acute hypoxic respiratory failure requiring mechanical ventilator. Past Medical History: Diabetes mellitus Past Surgical History: , Hernia Repair Medications: Reviewed. Allergies: No known drug allergies. Family History: Arthritis. No family history of premature CAD. No family history of lung disorders. Social History: Nonsmoker. No alcohol or illicit drug use. Reviewed: Care Plan, H&P Changes from previous H/P or p: No Changes Gastrointestinal: Abdominal Pain Objective Vitals Vital Signs Date Time Temp Pulse Resp B/P (MAP) Pulse Ox O2 Delivery O2 Flow Rate FiO2 02/06/25 22:45 97 16 124/69 (87) 100 02/06/25 22:05 30 02/06/25 22:00 Mechanical Ventilator+ 02/06/25 20:00 98.2 98.2 Intake/Output Intake and Output 02/06/25 07:00 Intake Total 1987.00 ml Output Total 1200 ml Balance 787.00 ml IV Total 1987.00 ml Output Urine Total 1000 ml Gastric Drainage Total 20 ml Drainage Total 180 ml General Appearance: Other (Intubated, on vent, unable to exam) HEENT: Atraumatic, Mucous membr. moist/pink Neck: Supple Lungs: Clear to auscultation, Normal air movement, Other (Ventilation support) Cardiovascular: Regular rate, Normal S1, Normal S2, No murmurs, Gallops, Rubs Abdomen: Normal bowel sounds, Soft, No tenderness Medications Current Medications Medications Dose Ordered Sig/Isaura Route Start Time Stop Time Status Last Admin Dose Admin Pantoprazole Sodium 40 mg DAILY IV 01/13/25 10:00 02/06/25 09:59 40 MG Cefazolin Sodium 50 ml @ 100 mls/hr Q8HR IV 01/13/25 14:00 UNV Vasopressin 20 units/Sodium Chloride 100 ml @ 9 mls/hr Q11H7M IV 01/13/25 18:45 UNV Potassium Chloride 100 ml @ 50 mls/hr Q2H IV 01/16/25 12:45 01/16/25 18:44 UNV Vancomycin HCl 100 ml @ 100 mls/hr DAILY@1200 IV 01/20/25 12:00 UNV Sodium Chloride 10 ml QSHIFT@10,22 IV 01/26/25 22:00 02/06/25 21:33 10 ML Acetaminophen 650 mg Q6HP PRN GT 01/30/25 16:00 Amino Acids 0 ml @ 0 mls/hr PER PHARMACY IV 01/31/25 16:00 Fentanyl Citrate 250 ml @ 2.5 mls/hr Q24H IV 01/31/25 16:30 02/06/25 18:28 20 MLS/HR Diagnostic Test (Pha) 1 strip Q6HR 01/31/25 18:00 02/06/25 23:27 1 STRIP Insulin Human Regular FOLLOW SLIDING SCALE Q6HR SC 01/31/25 18:00 02/06/25 23:27 2 UNITS Dextrose 50 ml UD IV 01/31/25 17:00 Norepinephrine Bitartrate 250 ml @ 3.75 mls/hr Q24H IV 02/03/25 13:45 02/04/25 17:43 15 MLS/HR Vancomycin HCl 0 ml @ 0 mls/hr UD IV 02/03/25 18:30 Meropenem 50 ml @ 17 mls/hr Q12HR IV 02/03/25 22:00 02/06/25 21:33 17 MLS/HR Fat Emulsion Intravenous 150 ml/Sodium Phosphate 20 meq/ Potassium Acetate 40 meq/Magnesium Sulfate 10 meq/ Multivitamins 10 ml/Insulin Human Regular 10 units/ Amino Acids/ Dextrose/Purified Water 1,237.6 ml @ 51 mls/hr [id number] IV 02/06/25 22:00 02/07/25 21:59 02/06/25 21:35 51 MLS/HR Hydralazine HCl 10 mg Q6HP PRN IV 02/06/25 12:45 02/06/25 14:41 10 MG Metoprolol Tartrate 5 mg Q6HR PRN IV 02/06/25 16:30 02/06/25 17:34 5 MG Laboratory Results Laboratory Tests 02/06/25 04:00 Chemistry Test 02/06/25 04:00 Albumin 2.2 g/dL (3.2-4.8) L Calcium Level 9.0 mg/dL (8.7-10.4) Magnesium Level 2.3 mg/dL (1.6-2.6) Phosphorus Level 2.6 mg/dL (2.4-5.1) Total Protein 4.7 g/dL (5.7-8.2) L LFT Test 02/06/25 04:00 Alanine Aminotransferase (ALT) < 9 U/L (7-40) Alkaline Phosphatase 95 U/L (46-116) Aspartate Amino Transferase (AST) 21 U/L (13-40) Total Bilirubin 1.2 mg/dL (0.2-1.0) H Urinalysis Test 01/14/25 02:00 Urine Color Yellow (Yellow) Urine Clarity Turbid (Clear) H Urine pH 6.0 (5.0-9.0) Urine Specific [place] 1.016 (1.001-1.035) Urine Protein 1+ (Negative) H Urine Ketones Trace (Negative) Urine Blood 1+ /uL (Negative) H Urine Nitrite Negative (Negative) Urine Bilirubin Negative (Negative) Urine Urobilinogen Normal mg/dL (Negative) Urine Leukocyte Esterase Negative /uL (Negative) Urine RBC 10 /hpf (0 - 4) Urine Microscopic WBC 2 /HPF (0-5) Urine Squamous Epithelial Cells Few /hpf (<5) Urine Amorphous Crystals Few /hpf (None Seen) Urine Bacteria None seen /hpf (None Seen) Urine Creatinine 34.09 mg/dL (30.0-125.0) Urine Protein/Creatinine Ratio 3.85 Urine Sodium 76 mmol/L (40-220) Urine Glucose Normal mg/dL (Normal) Urine Total Protein 131.1 mg/dL (1-14) H Blood Gas Results Test 02/06/25 07:19 Arterial Blood pH 7.452 (7.350-7.450) FiO2 % 30.0 Microbiology Microbiology Date/Time Source Procedure Growth Status 01/31/25 13:30 Aspirate Gram Stain - Final Complete 01/31/25 13:30 Aspirate Body Fluid Culture - Final Complete 01/29/25 14:00 Sputum Gram Stain - Final Complete 01/29/25 14:00 Respiratory Culture - Final Presumptive Zoe albicans Complete 01/29/25 10:40 Blood Blood Culture - Final NO GROWTH AFTER 5 DAYS OF INCUBATION. Complete 01/28/25 12:55 Voided Urine Urine Culture - Final Complete 01/13/25 17:10 Nose MRSA Screen - Final Complete Assessment/Plan Assessment/Plan Impression: Acute hypoxic respiratory failure On mechanical ventilation Atelectasis Pleural effusion Acute metabolic encephalopathy secondary to acute hypoxic respiratory failure Pulmonary edema due to chronic heart failure with preserved ejection fraction Perforation of small bowel status post exploratory laparotomy Acute on chronic kidney disease secondary to shock, vasomotor nephropathy Anemia Sepsis with septic shock secondary to perforation of small bowel Events: Remains on vent support On assist control with respiratory rate of 12, tidal volume 450, PEEP of 5, FiO2 of 30% Taper FiO2 as tolerated ABG reviewed, compensated On Fentanyl drip for pain control. Surgery recs appreciated. Continue antibiotics On Bicarb Albumin Resume beta blockers Patient received 1 unit PRBC Continue to monitor hemoglobin Transfuse if less than 7.0 g/dL. TPN for nutritional support CPAP trial with PS 8, PEEP 5. Labs and imaging reviewed. Rest of plan as noted below. Plan: s/p intubation on mechanical ventilator On assist control with respiratory rate of 12, tidal volume 450, PEEP of 5, FiO2 of 30% Titrate FIO2 to keep O2 saturation above 92%. VAP bundle Daily ABG and CXR while intubated. Pressors as necessary for hemodynamic support. Titrate to keep MAP above 65 mmHg/SBP above 90 mmHg. Continue antibiotics. F/u cultures. Monitor renal function due to acute kidney injury. Monitor electrolytes. Supplement as necessary. Monitor K, mag Monitor hemoglobin Transfuse if less than 7.0 g/dL. Nutritional support. Accu-Cheks, ISS. GI/DVT prophylaxis. Condition: Critical Prognosis: Poor given multiple comorbidities. Rest of plan per hospitalist and other consultants. A total of 35 minutes of critical care time was spent reviewing the patient record, examining the patient, making a diagnostic and therapeutic plan, discussing this plan with the medical personnel, following up on diagnostic studies and following the patient for clinical stability excluding any and all procedures. At least 50% of this time was spent in direct, [id number] contact. Thank you for allowing me to participate in this patient's care. Further recommendations will depend on patient's clinical course. Please do not hesitate to contact me if you have any questions or concerns. This medical document was created using an electronic medical record system with [employer] dictation system. Although this document has been carefully reviewed, there may still be some phonetic and typographical errors. These areas are purely typographical due to imperfections of the software programs, and do not reflect any compromise in the patient's medical care. Plan discussed with: Other (MASHA Ortiz) My Orders Orders - MORA LANGSTON MD Procedure Category Date Status Time Ventilator Orders RT 02/06/25 Transmitted 16:33 Cpap Trial For Am ORDERS 02/06/25 Transmitted 16:33 Chest Portable XY 02/07/25 Logged 04:00 Date of Service: Feb 06, 2025 Billing Provider: MORA LANGSTON MD Common Visit Codes: [id number] INP/OBS CARE(HIGH), [id number] CARE 30-74 MIN MORA LANGSTON MD Feb 06, 2025 23:35
[2025-02-07] VITALS (72 sets, daily range): BP systolic 106–178; BP diastolic 64–106; PULSE 84–120; RESP 13–25; TEMP 97.3–98.3; O2SAT 98–100
--- NOTE | 2025-02-07 04:24 | DVH ---
CHEST RADIOGRAPH Indication: VENTILATED Technique: Single frontal view of the chest was obtained COMPARISON: XY CHEST PORTABLE on DOS: 02/06/25, XY CHEST XRAY 1 VIEW on DOS: 02/05/25, XY CHEST XRAY 1 VIEW on DOS: 02/04/25, XY CHEST XRAY 1 VIEW on DOS: 02/03/25, XY CHEST XRAY 1 VIEW on DOS: 02/02/25 FINDINGS: Lines and Tubes: Unchanged. Lungs: Interval decrease in left pleural effusion with mild residual left basilar pulmonary airspace disease. No pneumothorax. Cardiomediastinal contours: Cardiomegaly. Bones: Unremarkable IMPRESSION: 1. Interval decrease in left pleural effusion with mild residual left basilar pulmonary airspace dise ase. 2. Cardiomegaly. 3. Lines and tubes unchanged.
--- NOTE | 2025-02-07 06:05 | DVHPN2 ---
Subjective The patient is seen and examined at bedside. Remained intubated. Status post laparoscopic. Tachycardia Reviewed: Care Plan, H&P Changes from previous H/P or p: No Changes Gastrointestinal: Abdominal Pain Objective Vitals Vital Signs Date Time Temp Pulse Resp B/P (MAP) Pulse Ox O2 Delivery O2 Flow Rate FiO2 02/07/25 05:00 114 16 135/82 (99) 100 02/07/25 04:12 30 02/07/25 04:00 Mechanical Ventilator+ 02/07/25 04:00 97.9 97.9 Intake/Output Intake and Output 02/07/25 07:00 Intake Total 2052.5 ml Output Total 670 ml Balance 1382.5 ml IV Total 1672.5 ml Blood Product 340 ml Other 40 ml Output Urine Total 560 ml Drainage Total 110 ml General Appearance: Other (Intubated, on vent, unable to exam) HEENT: Atraumatic, Mucous membr. moist/pink Neck: Supple Lungs: Clear to auscultation, Normal air movement, Other (Ventilation support) Cardiovascular: Regular rate, Normal S1, Normal S2, No murmurs, Gallops, Rubs Abdomen: Normal bowel sounds, Soft, No tenderness Medications Current Medications Medications Dose Ordered Sig/Isaura Route Start Time Stop Time Status Last Admin Dose Admin Pantoprazole Sodium 40 mg DAILY IV 01/13/25 10:00 02/06/25 09:59 40 MG Cefazolin Sodium 50 ml @ 100 mls/hr Q8HR IV 01/13/25 14:00 UNV Vasopressin 20 units/Sodium Chloride 100 ml @ 9 mls/hr Q11H7M IV 01/13/25 18:45 UNV Potassium Chloride 100 ml @ 50 mls/hr Q2H IV 01/16/25 12:45 01/16/25 18:44 UNV Vancomycin HCl 100 ml @ 100 mls/hr DAILY@1200 IV 01/20/25 12:00 UNV Sodium Chloride 10 ml QSHIFT@10,22 IV 01/26/25 22:00 02/06/25 21:33 10 ML Acetaminophen 650 mg Q6HP PRN GT 01/30/25 16:00 Amino Acids 0 ml @ 0 mls/hr PER PHARMACY IV 01/31/25 16:00 Fentanyl Citrate 250 ml @ 2.5 mls/hr Q24H IV 01/31/25 16:30 02/06/25 18:28 20 MLS/HR Diagnostic Test (Pha) 1 strip Q6HR 01/31/25 18:00 02/07/25 05:37 1 STRIP Insulin Human Regular FOLLOW SLIDING SCALE Q6HR SC 01/31/25 18:00 02/07/25 05:37 4 UNITS Dextrose 50 ml UD IV 01/31/25 17:00 Norepinephrine Bitartrate 250 ml @ 3.75 mls/hr Q24H IV 02/03/25 13:45 02/04/25 17:43 15 MLS/HR Vancomycin HCl 0 ml @ 0 mls/hr UD IV 02/03/25 18:30 Meropenem 50 ml @ 17 mls/hr Q12HR IV 02/03/25 22:00 02/06/25 21:33 17 MLS/HR Fat Emulsion Intravenous 150 ml/Sodium Phosphate 20 meq/ Potassium Acetate 40 meq/Magnesium Sulfate 10 meq/ Multivitamins 10 ml/Insulin Human Regular 10 units/ Amino Acids/ Dextrose/Purified Water 1,237.6 ml @ 51 mls/hr [id number] IV 02/06/25 22:00 02/07/25 21:59 02/06/25 21:35 51 MLS/HR Hydralazine HCl 10 mg Q6HP PRN IV 02/06/25 12:45 02/07/25 00:18 10 MG Metoprolol Tartrate 5 mg Q6HR PRN IV 02/06/25 16:30 02/06/25 17:34 5 MG Laboratory Results Laboratory Tests 02/06/25 04:00 Urinalysis Test 01/14/25 02:00 Urine Color Yellow (Yellow) Urine Clarity Turbid (Clear) H Urine pH 6.0 (5.0-9.0) Urine Specific [place] 1.016 (1.001-1.035) Urine Protein 1+ (Negative) H Urine Ketones Trace (Negative) Urine Blood 1+ /uL (Negative) H Urine Nitrite Negative (Negative) Urine Bilirubin Negative (Negative) Urine Urobilinogen Normal mg/dL (Negative) Urine Leukocyte Esterase Negative /uL (Negative) Urine RBC 10 /hpf (0 - 4) Urine Microscopic WBC 2 /HPF (0-5) Urine Squamous Epithelial Cells Few /hpf (<5) Urine Amorphous Crystals Few /hpf (None Seen) Urine Bacteria None seen /hpf (None Seen) Urine Creatinine 34.09 mg/dL (30.0-125.0) Urine Protein/Creatinine Ratio 3.85 Urine Sodium 76 mmol/L (40-220) Urine Glucose Normal mg/dL (Normal) Urine Total Protein 131.1 mg/dL (1-14) H Blood Gas Results Test 02/06/25 07:19 Arterial Blood pH 7.452 (7.350-7.450) FiO2 % 30.0 Microbiology Microbiology Date/Time Source Procedure Growth Status 01/31/25 13:30 Aspirate Gram Stain - Final Complete 01/31/25 13:30 Aspirate Body Fluid Culture - Final Complete 01/29/25 14:00 Sputum Gram Stain - Final Complete 01/29/25 14:00 Respiratory Culture - Final Presumptive Zoe albicans Complete 01/29/25 10:40 Blood Blood Culture - Final NO GROWTH AFTER 5 DAYS OF INCUBATION. Complete 01/28/25 12:55 Voided Urine Urine Culture - Final Complete 01/13/25 17:10 Nose MRSA Screen - Final Complete Labs and/or images reviewed: Labs reviewed by me Assessment/Plan Assessment/Plan This is a 80-year-old lady with past medical history of hypertension, AFib (on Eliquis), diabetes type 2, CKD, came to the hospital due to abdominal pain, and constipation. Admitted on 01/13/2025. Found to have peritonitis due to bowel perforation, and underwent emergent laparotomy with subsequent resection of perforated small bowel and enteroenterostomy. Due to abnormal CARMEN drainage, second exploratory laparotomy performed on 02/04 and found to have perforation near to previous perforation area, underwent resection of area with subsequent anastomosis of proximal jejunal loops. 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 * RASS score 0 CARDIOVASCULAR: Septic shock secondary to perforation of the hollow viscus Paroxysmal atrial fibrillation Hypercoagulable state Chronic diastolic heart failure with preserved ejection fraction * Echo from 01/15 shows, NORMAL LV EF AND IS 65%, mild LVH and mild LV diastolic dysfunction * Chest xray demonstrated bibasilar atelectasis * [id number] score more than 5 * hold Lovenox because of low hemoglobin PULMONARY: Acute hypoxic respiratory failure secondary to bilateral pleural effusion/pneumonia Chest x-ray demonstrated bilateral hazy opacities * Sputum culture from 01/29 shows presumptive Zoe albicans * On mechanical ventilation tidal volume 450, RR 12, FiO2 30% and peep 5 * Failed multiple CPAP trials GASTROINTESTINAL: Peritonitis due to Perforation of the small bowel, status post exploratory laparotomy Transaminitis secondary to shock Perisplenic abscess * Peritoneal fluid culture from 01/13 shows E coli and Klebsiella pneumoniae sensitive to meropenem (given for 11 days, stopped on 01/31) * CT scan on 01/31 shows, moderate sized fluid collection in the perisplenic region * IR consulted, put pigtail drain, and has drained 50 cc purulent fluid * Patient has brownish discharge of the drain * Small bowel series, normal study * Patient has leakage from surgical area and drainage * Surgery evaluated at the bedside on 02/03, open to lilly, drained greenish- brownish fluid * Plan: Surgical evaluation tomorrow GENITOURINARY: ISRRAEL on CKD secondary to shock/VMN (baseline record not available) * Monitoring ENDOCRINE: History of hypothyroidism Type 2 diabetes mellitus, hemoglobin A1c 8.2 * Few episodes of hypoglycemia * TSH is raised at 16.29, normal free T4 METABOLIC: Hypokalemia Hyperkalemia Hyponatremia, Nephrology recommended D5W at 75 mL/hour Severe metabolic protein malnutrition * Anion gap metabolic acidosis secondary to bowel ischemia leading to lactic acidosis * Contraction alkalosis HEME: Acute on chronic anemia secondary to hemodilution/post surgical 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 * 3 unit of PRBC and platelet given since the surgery INFECTIOUS DISEASE: Sepsis with septic shock secondary to perforation of the small bowel * Blood culture from 01/29 preliminary result shows Gram-positive rods (1/4 sets of blood culture) * Discontinued levofloxacin Flagyl on 02/03 * Plan: Started on vancomycin and meropenem on 02/03 MUSCULOSKELETAL: Rib fracture, due to fall DIET: NPO, TPN DVT prophylax: Hold GI prophylaxis: Pantoprazole Bowel regimen: Code status: Full code LINES/DRAINS/ACCESS: ETT: Intubated on 01/14/25 IV access: Rt upper thigh PICC placed on 01/26/2025 Drips: off from pressor and sedatives Perez catheter: Placed on 0 9 /0 5 CARMEN drainage: For CARMEN drain in 4 quadrants of abdomen DISPOSITION: ICU status Continue current management. DW daughter regarding to plan of care. Will add metoprolol 5mg IV q4 H PRN for SBP greatter than 160 or HR greater than 120 Prognosis guarded. Critical care spent for this case today is 39 minutes. This medical document was created using an electronic medical record system with [employer] computerized dictation system. Although this document has been carefully reviewed, there may still be some phonetic and typographical errors. These areas are purely typographical due to imperfections of the software programs, and do not reflect any compromise in the patient's medical care. Plan discussed with: Daughter, Other (RN) My Orders Orders - LEANN MORIN MD Procedure Category Date Status Time Hydralazine Injection PHA 02/06/25 In Process (Apresoline Inject 12:45 Metoprolol Inj PHA 02/06/25 In Process (Lopressor) 16:30 Date of Service: Feb 06, 2025 Billing Provider: LEANN MORIN MD Common Visit Codes: [id number] CARE 30-74 MIN LEANN MORIN MD Feb 07, 2025 06:05
[2025-02-07 08:30] LABS: Base Excess -2.1 mmol/L (-2.0-3.0)
[2025-02-07 09:39] LABS: Hematocrit 31.0 % (36.0-46.0); Hemoglobin 10.2 g/dL (12.2-16.2); Mean Corpuscular Hemoglobin 28.3 pg (28.0-32.0); Mean Corpuscular Volume 86.0 fL (80.0-100.0); Nucleated Red Blood Cells % 0.1 %
[2025-02-07 09:51] LABS: Alanine Aminotransferase 11 U/L (7-40); Anion Gap 9 (5-15); BUN/Creatinine Ratio 54.8 (10.0-20.0); Carbon Dioxide 22 mmol/L (20-31); Magnesium 2.2 mg/dL (1.6-2.6); Potassium 3.7 mmol/L (3.5-5.1); Sodium 143 mmol/L (136-145)
[2025-02-07 09:53] LABS: Albumin 2.2 g/dL (3.2-4.8); Alkaline Phosphatase 149 U/L (46-116); Bilirubin, Total 2.0 mg/dL (0.2-1.0); Blood Urea Nitrogen 51 mg/dL (9-23); Calcium 8.5 mg/dL (8.7-10.4); Chloride 112 mmol/L (98-107); Glucose 148 mg/dL (74-106); Total Protein 5.1 g/dL (5.7-8.2)
[2025-02-07] MEDS: POTASSIUM PHOSPHATE 22 MEQ in SODIUM CHL 0.9% 100 ML IV ONE (13:28)
--- NOTE | 2025-02-07 19:31 | DVHPNRES ---
Progress Note Date Seen: Feb 07, 2025 Resident Creating Document: GIGI FELIZ AMBROSE Has the PT tested + for MRSA If YES, has PT been informed?: No Medical Necessity Reason Pt with a Central, PICC or Fol: Yes The following are medically ne: Central Line, Leach Catheter Reason for leach catheter: Strict I&O Subjective Review of Systems Patient Is seen and examined at the bedside. Patient extubated today. Status post extubation, patient can maintain oxygen through nasal cannula. Alert awake and oriented, not have any active complaint. Objective vital signs Vital Sign Date Time Temp Pulse Resp B/P (MAP) Pulse Ox O2 Delivery O2 Flow Rate FiO2 02/07/25 18:00 16 100 Nasal Cannula* 2 28 02/07/25 18:00 100 02/07/25 18:00 178/85 (116) 02/07/25 15:00 97.3 97.3 Total Intake and Output 02/06/25 02/06/25 02/07/25 15:00 23:00 07:00 Intake Total 618.5 ml 985 ml 571 ml Output Total 670 ml 635 ml Balance 618.5 ml 315 ml -64 ml medications Current Medications Medications Dose Ordered Sig/Isaura Route Start Time Stop Time Status Last Admin Dose Admin Pantoprazole Sodium 40 mg DAILY IV 01/13/25 10:00 02/07/25 10:14 40 MG Cefazolin Sodium 50 ml @ 100 mls/hr Q8HR IV 01/13/25 14:00 UNV Vasopressin 20 units/Sodium Chloride 100 ml @ 9 mls/hr Q11H7M IV 01/13/25 18:45 UNV Potassium Chloride 100 ml @ 50 mls/hr Q2H IV 01/16/25 12:45 01/16/25 18:44 UNV Vancomycin HCl 100 ml @ 100 mls/hr DAILY@1200 IV 01/20/25 12:00 UNV Sodium Chloride 10 ml QSHIFT@10,22 IV 01/26/25 22:00 02/07/25 10:14 10 ML Acetaminophen 650 mg Q6HP PRN GT 01/30/25 16:00 Amino Acids 0 ml @ 0 mls/hr PER PHARMACY IV 01/31/25 16:00 Diagnostic Test (Pha) 1 strip Q6HR 01/31/25 18:00 02/07/25 17:39 1 STRIP Insulin Human Regular FOLLOW SLIDING SCALE Q6HR SC 01/31/25 18:00 02/07/25 17:41 4 UNITS Dextrose 50 ml UD IV 01/31/25 17:00 Vancomycin HCl 0 ml @ 0 mls/hr UD IV 02/03/25 18:30 Meropenem 50 ml @ 17 mls/hr Q12HR IV 02/03/25 22:00 02/07/25 10:14 17 MLS/HR Fat Emulsion Intravenous 150 ml/Sodium Phosphate 20 meq/ Potassium Acetate 40 meq/Magnesium Sulfate 10 meq/ Multivitamins 10 ml/Insulin Human Regular 10 units/ Amino Acids/ Dextrose/Purified Water 1,237.6 ml @ 51 mls/hr [id number] IV 02/06/25 22:00 02/07/25 21:59 02/06/25 21:35 51 MLS/HR Fat Emulsion Intravenous 150 ml/Sodium Phosphate 20 meq/ Potassium Acetate 50 meq/Magnesium Sulfate 10 meq/ Multivitamins 10 ml/Insulin Human Regular 10 units/ Amino Acids/ Dextrose/Purified Water 1,292.6 ml @ 54 mls/hr [id number] IV 02/07/25 22:00 02/08/25 21:59 Morphine Sulfate 2 mg Q4HPRN PRN IV 02/07/25 17:15 Examination General Appearance: Alert, Oriented X3, Cooperative, No acute distress HEENT: Atraumatic, PERRLA, EOMI, Mucous membrane moist/pink Respiratory: Clear to auscultation, Normal air movement Cardiovascular: Regular rate, Normal S1, Normal S2, No murmurs, no chest wall tenderness Abdominal: Mild abdominal tenderness, with wound VAC at the midline, for CARMEN drain at 4 quadrant, draining brownish fluid Extremities: No clubbing, No cyanosis, No edema, Normal pulses, No tenderness/swelling Skin: No rashes, No breakdown, No significant lesion Neuro: Grossly intact Psych/Mental Status: Mental status NL, Mood NL laboratory and microbiology Laboratory Tests 02/07/25 09:17 Test 02/07/25 09:17 Range/Units Serum Glucose 148 H 74-106 mg/dL Microbiology Date/Time Source Procedure Growth Status 01/31/25 13:30 Aspirate Gram Stain - Final Complete 01/31/25 13:30 Aspirate Body Fluid Culture - Final Complete 01/29/25 14:00 Sputum Gram Stain - Final Complete 01/29/25 14:00 Respiratory Culture - Final Presumptive Zoe albicans Complete 01/29/25 10:40 Blood Blood Culture - Final NO GROWTH AFTER 5 DAYS OF INCUBATION. Complete 01/28/25 12:55 Voided Urine Urine Culture - Final Complete 01/13/25 17:10 Nose MRSA Screen - Final Complete Labs and/or images reviewed: Labs reviewed by me, Image(s) reviewed by me Problem List/Assessment/Plan Problem List/Assessment/Plan This is a 80-year-old lady with past medical history of hypertension, AFib (on Eliquis), diabetes type 2, CKD, came to the hospital due to abdominal pain, and constipation. Admitted on 01/13/2025. Found to have peritonitis due to bowel perforation, and underwent emergent laparotomy with subsequent resection of perforated small bowel and enteroenterostomy. Due to abnormal CARMEN drainage, second exploratory laparotomy performed on 02/04 and found to have perforation near to previous perforation area, underwent resection of area with subsequent anastomosis of proximal jejunal loops. 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 * RASS score 0 CARDIOVASCULAR: Septic shock secondary to perforation of the hollow viscus Paroxysmal atrial fibrillation Hypercoagulable state Chronic diastolic heart failure with preserved ejection fraction * Echo from 01/15 shows, NORMAL LV EF AND IS 65%, mild LVH and mild LV diastolic dysfunction * Chest xray demonstrated bibasilar atelectasis * [id number] score more than 5 * hold Lovenox because of low hemoglobin PULMONARY: Acute hypoxic respiratory failure secondary to bilateral pleural effusion/pneumonia Chest x-ray demonstrated bilateral hazy opacities * Sputum culture from 01/29 shows presumptive Zoe albicans * Status post extubation, on nasal cannula * Plan: Continue oxygen through nasal cannula GASTROINTESTINAL: Peritonitis due to Perforation of the small bowel, status post exploratory laparotomy Transaminitis secondary to shock Perisplenic abscess * Peritoneal fluid culture from 01/13 shows E coli and Klebsiella pneumoniae sensitive to meropenem (given for 11 days, stopped on 01/31) * CT scan on 01/31 shows, moderate sized fluid collection in the perisplenic region * IR consulted, put pigtail drain, and has drained 50 cc purulent fluid * Patient has brownish discharge of the drain * Small bowel series, normal study * Patient has leakage from surgical area and drainage * Second laparotomy, performed on 02/04, lysis of adhesions, evacuation of pelvic and abdominal infection, resection of proximal jejunum, ileostomy, and jejunostomy and put for CARMEN drains at 4 quadrants * Plan: Follow up with surgery, NPO, IV antibiotics GENITOURINARY: ISRRAEL likely due to shock/VMN, resolved * Monitoring ENDOCRINE: History of hypothyroidism Type 2 diabetes mellitus, hemoglobin A1c 8.2 * Few episodes of hypoglycemia * TSH is raised at 16.29, normal free T4 METABOLIC: Hypokalemia Hyperkalemia Hyponatremia, Nephrology recommended D5W at 75 mL/hour Severe metabolic protein malnutrition * Anion gap metabolic acidosis secondary to bowel ischemia leading to lactic acidosis HEME: Acute on chronic anemia secondary to hemodilution/post surgical 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 * 5 unit of PRBC, 2 pt of platelet, has been given INFECTIOUS DISEASE: Sepsis with septic shock secondary to perforation of the small bowel * Blood culture from 01/29 preliminary result shows Gram-positive rods (1/4 sets of blood culture) * Discontinued levofloxacin Flagyl on 02/03 * Plan: Continue on vancomycin and meropenem on 02/03 MUSCULOSKELETAL: Rib fracture, due to fall DIET: NPO, TPN DVT prophylax: Hold GI prophylaxis: Pantoprazole Bowel regimen: Code status: Full code LINES/DRAINS/ACCESS: ETT: Intubated on 01/14/25 IV access: Rt upper thigh PICC placed on 01/26/2025 Drips: off from pressor and sedatives Leach catheter: Placed on 0 0 5 CARMEN drainage: Four CARMEN drain in 4 quadrants of abdomen DISPOSITION: ICU status Patient's status discussed with patient and patient's son at the bedside. Critical care time spent more than 83 minutes, including patient care, chart review, and updating the family. Excluding any procedures. Case discussed with Dr. Self Plan discussed with: Patient, Other (RN) My Orders My Orders Orders - GIGI FELIZ RESDIADRIANA Procedure Category Date Status Time Extubate SAPPHIRE 02/07/25 In Process 10:15 Vancomycin,Random LAB 02/08/25 Verified 04:00 Creatinine LAB 02/08/25 Verified 04:00 Pt Request For Service PT 02/07/25 Logged 13:21 * Swallow Request ST 02/07/25 Transmitted 13:21 Comprehensive LAB 02/08/25 Verified Metabolic Panel 04:00 Complete Blood Count LAB 02/08/25 Verified 04:00 Abg W/ Co-Ox RT 02/08/25 Logged 04:00 Chest Xray 1 View XY 02/08/25 Logged 04:00 Morphine Sulfate PHA 02/07/25 In Process Injection 17:15 Dietary Evaluation Review Comments: Nutrition Recommendation: 1) TPN to meet at least 75% estimated needs within 7 days 2) Monitor NPO status, lab values, wt trend, I/O Expected Outcomes/Goals: To meet >75% estimated needs Lab values to improve Fu 2-3 days CC Plasma Assessment Blood Product Administration S: [id number] Date of Service: Feb 07, 2025 Billing Provider: ZBIGNIEW SELF MD Common Visit Codes: [id number] CARE 30-74 MIN, [id number] CARE-EACH +30MIN GIGI FELIZ RESDIENT Feb 07, 2025 19:30 ZBIGNIEW SELF MD Feb 08, 2025 12:36
[2025-02-07] MEDS: MORPHINE SULFATE INJ 2 MG/ml SYRG IV PRN (19:34)
[2025-02-07] MEDS: METOPROLOL TARTRATE 1MG/1ML-5ML VIAL IV SCH (22:12)
[2025-02-07] MEDS: TPN PER PHARMACY IV NR (22:15)
[2025-02-08] VITALS (24 sets, daily range): BP systolic 135–183; BP diastolic 79–98; PULSE 83–120; RESP 17–29; TEMP 97.5–98.5; O2SAT 71–100
[2025-02-08 03:58] LABS: Hematocrit 30.8 % (36.0-46.0); Hemoglobin 10.3 g/dL (12.2-16.2); Mean Corpuscular Hemoglobin 28.6 pg (28.0-32.0); Mean Corpuscular Volume 85.7 fL (80.0-100.0); Nucleated Red Blood Cells % 0.1 %
[2025-02-08 04:16] LABS: Alanine Aminotransferase 14 U/L (7-40); BUN/Creatinine Ratio 64.4 (10.0-20.0); Carbon Dioxide 25 mmol/L (20-31); Magnesium 2.3 mg/dL (1.6-2.6)
[2025-02-08 04:18] LABS: Albumin 2.1 g/dL (3.2-4.8); Alkaline Phosphatase 162 U/L (46-116); Bilirubin, Total 2.6 mg/dL (0.2-1.0); Blood Urea Nitrogen 47 mg/dL (9-23); Calcium 8.3 mg/dL (8.7-10.4); Glucose 187 mg/dL (74-106); Total Protein 5.0 g/dL (5.7-8.2)
[2025-02-08 04:26] LABS: Anion Gap 9 (5-15); Potassium 3.6 mmol/L (3.5-5.1); Sodium 143 mmol/L (136-145)
[2025-02-08 04:28] LABS: Chloride 109 mmol/L (98-107)
[2025-02-08 04:33] LABS: Triglycerides 176 mg/dL (< 150)
--- NOTE | 2025-02-08 04:57 | DVH ---
CHEST RADIOGRAPH Indication: Pneumonia Technique: Single frontal view of the chest was obtained COMPARISON: XY CHEST PORTABLE on DOS: 02/07/25, XY CHEST PORTABLE on DOS: 02/06/25, XY CHEST XRAY 1 VIE W on DOS: 02/05/25, XY CHEST XRAY 1 VIEW on DOS: 02/04/25, XY CHEST XRAY 1 VIEW on DOS: 02/03/25 FINDINGS: Lines and Tubes: Status post interval extubation. Enteric catheter unchanged. Lungs: Mild left basilar pulmonary airspace disease. Pleura: No effusion. No pneumothorax. Cardiomediastinal contours: Unremarkable Bones: Unremarkable IMPRESSION: 1. Status post interval extubation. Left Enteric catheter unchanged. 2. Mild left basilar pulmonary airspace disease.
[2025-02-08] MEDS: MORPHINE SULFATE 4 MG/ML SYR/VIAL IV PRN (09:43)
--- NOTE | 2025-02-08 10:41 | DVHPN2 ---
Progress Note Date Seen: Feb 08, 2025 Has the PT tested + for MRSA If YES, has PT been informed?: No Medical Necessity Reason Pt with a Central, PICC or Fol: Yes The following are medically ne: Central Line, Leach Catheter Reason for laech catheter: Strict I&O Objective vital signs Vital Sign Date Time Temp Pulse Resp B/P (MAP) Pulse Ox O2 Delivery O2 Flow Rate FiO2 02/08/25 10:14 86 22 183/87 02/08/25 10:00 99 Room Air* 0 21 02/08/25 08:00 97.5 97.5 Total Intake and Output 02/07/25 02/07/25 02/08/25 15:00 23:00 07:00 Intake Total 485.25 ml 423 ml 466 ml Output Total 565 ml 860 ml Balance 485.25 ml -142 ml -394 ml medications Current Medications Medications Dose Ordered Sig/Isaura Route Start Time Stop Time Status Last Admin Dose Admin Pantoprazole Sodium 40 mg DAILY IV 01/13/25 10:00 02/08/25 09:22 40 MG Cefazolin Sodium 50 ml @ 100 mls/hr Q8HR IV 01/13/25 14:00 UNV Vasopressin 20 units/Sodium Chloride 100 ml @ 9 mls/hr Q11H7M IV 01/13/25 18:45 UNV Potassium Chloride 100 ml @ 50 mls/hr Q2H IV 01/16/25 12:45 01/16/25 18:44 UNV Vancomycin HCl 100 ml @ 100 mls/hr DAILY@1200 IV 01/20/25 12:00 UNV Sodium Chloride 10 ml QSHIFT@10,22 IV 01/26/25 22:00 02/08/25 09:22 10 ML Acetaminophen 650 mg Q6HP PRN GT 01/30/25 16:00 Amino Acids 0 ml @ 0 mls/hr PER PHARMACY IV 01/31/25 16:00 Diagnostic Test (Pha) 1 strip Q6HR 01/31/25 18:00 02/08/25 05:27 1 STRIP Insulin Human Regular FOLLOW SLIDING SCALE Q6HR SC 01/31/25 18:00 02/08/25 05:31 4 UNITS Dextrose 50 ml UD IV 01/31/25 17:00 Vancomycin HCl 0 ml @ 0 mls/hr UD IV 02/03/25 18:30 Meropenem 50 ml @ 17 mls/hr Q12HR IV 02/03/25 22:00 02/08/25 09:22 17 MLS/HR Fat Emulsion Intravenous 150 ml/Sodium Phosphate 20 meq/ Potassium Acetate 50 meq/Magnesium Sulfate 10 meq/ Multivitamins 10 ml/Insulin Human Regular 10 units/ Amino Acids/ Dextrose/Purified Water 1,292.6 ml @ 54 mls/hr [id number] IV 02/07/25 22:00 02/08/25 21:59 02/07/25 22:15 54 MLS/HR Metoprolol Tartrate 5 mg BID IV 02/07/25 22:00 02/08/25 09:23 5 MG Fat Emulsion Intravenous 150 ml/Sodium Phosphate 10 meq/ Potassium Acetate 30 meq/Potassium Phosphate 30 meq/ Magnesium Sulfate 8 meq/ Multivitamins 10 ml/Chromium/ Copper/Manganese/ Zinc 1 ml/Insulin Human Regular 10 units/Amino Acids/ Dextrose/Purified Water 1,437.4182 ml @ 60 mls/hr [id number] IV 02/08/25 22:00 02/09/25 21:59 Morphine Sulfate 2 mg Q4HPRN PRN IV 02/08/25 09:45 02/08/25 09:43 2 MG laboratory and microbiology Laboratory Tests 02/08/25 03:09 Test 02/08/25 03:09 Range/Units Serum Glucose 187 H 74-106 mg/dL Problem List/Assessment/Plan Problem List/Assessment/Plan 01/14/25 afebrile, low dose BP support, received transfusion, I believe her decreased hematocrit is due to hemodilution. abdomen non distended, soft, wound clean and well approximated, drainage serous . remains intubated and sedated 01/16/25 ALKALOSIS, ABDOMEN NON DISTENDED, SOFT, DRAINAGE SEROUS, WOUND CLEAN AND WELL APPROXIMATED 01/17/25 improved, thrombocytopenia possibly made worse by Fluconazole,will DC, abdomen non distended, wound well approximated without infection, TATY drainage serous, CVP 6, good urine output. 01/18/25 abg reviewed, ,abdomen soft, non distended, TATY drainage clear serous, no bowel activity, febrile, urine output ok, continues with thrombocytopenia,pt and inr slightly elevated. prognosis grave. 01/20/25remains sedated on ventilator, abdomen soft, non distended, faint bowel sounds auscultated by nurse, wound clean and well approximated, TATY drainage clear serous. continues with thrombocytopenia, still behind on intravascular volume( BUN and Creatinine elevated), i would give more IV fluids and DC vancomycin. 01/25/25 afebrile, normotensive, wound clean and well approximated, TATY drainage serous, abdomen non distended, soft, gastrografin small bowel series shows non obstructed GI tract and no evidence of extravasation. It is OK to initiate enteric feedings. 01/29/25 16 DAYS POST OPERATIVELY TRHE TATY DRAINAGE WHICH HAD CONSISTENTLY BEEN SEROUS OR SERO SANGUINEOUS HAS BECOME "DIRTY" BROWNISH DISCOLORATION, HER WOUND IS CLEAN AND WELL APPROXIMATED AND HER ABDOMEN IS SOFT AND NON DISTENDED, CT SCAN SHOWS SO0ME FLUID AND ACCUMULATION OF FLUID AROUND THE SPLEEN, WILL REQUEST CT GUIDED ASPIRATION OF SAME, WILL ORDER IRRIGATION OF DRAINS. SHE SI AFEBRILE AND MAINTAINS NORMAL BLOOD PRESSURE, HER WBC IS NORMAL. 01/30/25 improved, awake, being weaned off vent. abdomen non distended, non tender, taty drainage clearing with irrigation 02/02/25clinically unchanged, gastrografin small bowel series reported and normal, no extravasation reported, will order a follow ujp KUB for tomorrow AM 02/03/25 PATIENT HAD A GASTROGRAFIN SMALL BOWEL SERIES AND A FOLLOW UP KUB X RAYS NEITHER ONE OF WHICH SHOW EXTRAVASATION OF CONTRAST OR EVIDENCE OF FREE CONTRAST IN THE PERITONEAL CAVITY. THERE IS HOWEVER VISCOUS, BROWNISH FLUID DRAINING VIA BOTH TATY DRAINS AND THROUGH INFRAUMBILICAL PORTION OF MIDLINE WOUND, I REMOVED THE RICHIE FROM THE 3 CM SECTION OF THE INFRAUMBILICAL WOUND AND EVACUATED ABOUT 30 CC OF THIS FLUID AND INSTRUCTED THE NURSE TO PLACE A STOMA APPLIANCE ON THIS OPENING. 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 TODAY HER WBC IS ELEVATED, ABDOMEN CONTINUES TO BE NON DISTENDED, SOFT, BUT SHE DOES HAVE SLIGHT TENDERNESS IN THE PERIUMBILICAL AREA. I WILL TREAT THIS EXPECTANTLY FORM THE TIME BEING IN THE HOPE THAT THIS IS A "CONTROLLED" FISTULA AND HOPEFUL WILL HEAL SPONTANEOUSLY WITH NPO AND NUTRITIONAL SUPPORT. WILL WATCH CLOSELY, AFTER A FEW DAYS WILL GET A FISTULOGRAM TO PIN POINT THE ENTERIC ORIGIN OF THE FISTULIZATION. CONTINUE NGT SUCTION AND DRAIN IRRIGATION ORDERED02/05/25 02/05/25 remains sedated and intubated?ventilated, abdomen non distended soft, wound vac in place. TATY drainage serosanguineous 02/08/25 EXTUBATED, GOOD INSPIRATORY EFFORT, BP NML WITHOUT PRESSOR SUPPORT, ABDOMEN SOFT, NON DISTENDED, APPROPRIATELY TENDER, LABS REVIEWED. NO CHANGES TODAY OTHER THAN ALLOW ICE CHIPS PO. WILL ORDER GASTROGRAFIN SMALL BOWEL FOLLOWTHROUGH FOR FRIDAY Plan discussed with: Patient, Other Dietary Evaluation Review Comments: Nutrition Recommendation: 1) TPN to meet at least 75% estimated needs within 7 days 2) Monitor NPO status, lab values, wt trend, I/O Expected Outcomes/Goals: To meet >75% estimated needs Lab values to improve Fu 2-3 days MELVA RAMESH MD Feb 08, 2025 10:41
[2025-02-08] MEDS: VANCOMYCIN 500mg/100mL 100 ML IV ONE (11:14)
[2025-02-08] MEDS ORDERED: cloNIDine 0.1 mg/24hr 7 DAY PATCH TD ONE (12:30)
[2025-02-08] MEDS: cloNIDine 0.1 mg/24hr 7 DAY PATCH TD SCH (14:22)
--- NOTE | 2025-02-08 18:38 | DVHPNRES ---
Progress Note Date Seen: Feb 08, 2025 Resident Creating Document: GIGI FELIZ AMBROSE Has the PT tested + for MRSA If YES, has PT been informed?: No Medical Necessity Reason Pt with a Central, PICC or Fol: Yes The following are medically ne: Central Line, Leach Catheter Reason for leach catheter: Strict I&O Subjective Review of Systems Patient Is seen and examined at the bedside. Patient extubated on 02/08. Status post extubation, patient can maintain oxygen through nasal cannula. Alert awake and oriented, not have any active complaint. Objective vital signs Vital Sign Date Time Temp Pulse Resp B/P (MAP) Pulse Ox O2 Delivery O2 Flow Rate FiO2 02/08/25 18:00 20 98 Nasal Cannula* 2 28 02/08/25 18:00 107 02/08/25 18:00 164/89 (114) 02/08/25 17:00 97.5 97.5 Total Intake and Output 02/07/25 02/07/25 02/08/25 15:00 23:00 07:00 Intake Total 485.25 ml 423 ml 466 ml Output Total 565 ml 860 ml Balance 485.25 ml -142 ml -394 ml medications Current Medications Medications Dose Ordered Sig/Isaura Route Start Time Stop Time Status Last Admin Dose Admin Pantoprazole Sodium 40 mg DAILY IV 01/13/25 10:00 02/08/25 09:22 40 MG Cefazolin Sodium 50 ml @ 100 mls/hr Q8HR IV 01/13/25 14:00 UNV Vasopressin 20 units/Sodium Chloride 100 ml @ 9 mls/hr Q11H7M IV 01/13/25 18:45 UNV Potassium Chloride 100 ml @ 50 mls/hr Q2H IV 01/16/25 12:45 01/16/25 18:44 UNV Vancomycin HCl 100 ml @ 100 mls/hr DAILY@1200 IV 01/20/25 12:00 UNV Sodium Chloride 10 ml QSHIFT@10,22 IV 01/26/25 22:00 02/08/25 09:22 10 ML Acetaminophen 650 mg Q6HP PRN GT 01/30/25 16:00 Amino Acids 0 ml @ 0 mls/hr PER PHARMACY IV 01/31/25 16:00 Diagnostic Test (Pha) 1 strip Q6HR 01/31/25 18:00 02/08/25 17:10 1 STRIP Insulin Human Regular FOLLOW SLIDING SCALE Q6HR SC 01/31/25 18:00 02/08/25 17:10 4 UNITS Dextrose 50 ml UD IV 01/31/25 17:00 Vancomycin HCl 0 ml @ 0 mls/hr UD IV 02/03/25 18:30 Meropenem 50 ml @ 17 mls/hr Q12HR IV 02/03/25 22:00 02/08/25 09:22 17 MLS/HR Fat Emulsion Intravenous 150 ml/Sodium Phosphate 20 meq/ Potassium Acetate 50 meq/Magnesium Sulfate 10 meq/ Multivitamins 10 ml/Insulin Human Regular 10 units/ Amino Acids/ Dextrose/Purified Water 1,292.6 ml @ 54 mls/hr [id number] IV 02/07/25 22:00 02/08/25 21:59 02/07/25 22:15 54 MLS/HR Fat Emulsion Intravenous 150 ml/Sodium Phosphate 10 meq/ Potassium Acetate 30 meq/Potassium Phosphate 30 meq/ Magnesium Sulfate 8 meq/ Multivitamins 10 ml/Chromium/ Copper/Manganese/ Zinc 1 ml/Insulin Human Regular 10 units/Amino Acids/ Dextrose/Purified Water 1,437.4182 ml @ 60 mls/hr [id number] IV 02/08/25 22:00 02/09/25 21:59 Morphine Sulfate 2 mg Q4HPRN PRN IV 02/08/25 09:45 02/08/25 09:43 2 MG Clonidine HCl 0.1 mg Q7D TD 02/08/25 12:30 02/08/25 14:22 0.1 MG Labetalol HCl 10 mg Q4HP PRN IV 02/08/25 12:30 Examination General Appearance: Alert, Oriented X3, Cooperative, No acute distress HEENT: Atraumatic, PERRLA, EOMI, Mucous membrane moist/pink Respiratory: Clear to auscultation, Normal air movement Cardiovascular: Regular rate, Normal S1, Normal S2, No murmurs, no chest wall tenderness Abdominal: Mild abdominal tenderness, with wound VAC at the midline, for CARMEN drain at 4 quadrant, draining brownish fluid Extremities: No clubbing, No cyanosis, No edema, Normal pulses, No tenderness/swelling Skin: No rashes, No breakdown, No significant lesion Neuro: Grossly intact Psych/Mental Status: Mental status NL, Mood NL laboratory and microbiology Laboratory Tests 02/08/25 03:09 Test 02/08/25 03:09 Range/Units Serum Glucose 187 H 74-106 mg/dL Microbiology Date/Time Source Procedure Growth Status 01/31/25 13:30 Aspirate Gram Stain - Final Complete 01/31/25 13:30 Aspirate Body Fluid Culture - Final Complete 01/29/25 14:00 Sputum Gram Stain - Final Complete 01/29/25 14:00 Respiratory Culture - Final Presumptive Zoe albicans Complete 01/29/25 10:40 Blood Blood Culture - Final NO GROWTH AFTER 5 DAYS OF INCUBATION. Complete 01/28/25 12:55 Voided Urine Urine Culture - Final Complete 01/13/25 17:10 Nose MRSA Screen - Final Complete Labs and/or images reviewed: Labs reviewed by me Problem List/Assessment/Plan Problem List/Assessment/Plan This is a 80-year-old lady with past medical history of hypertension, AFib (on Eliquis), diabetes type 2, CKD, came to the hospital due to abdominal pain, and constipation. Admitted on 01/13/2025. Found to have peritonitis due to bowel perforation, and underwent emergent laparotomy with subsequent resection of perforated small bowel and enteroenterostomy. Due to abnormal CARMEN drainage, second exploratory laparotomy performed on 02/04 and found to have perforation near to previous perforation area, underwent resection of area with subsequent anastomosis of proximal jejunal loops. Extubated on 02/07. 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 PULMONARY: Acute hypoxic respiratory failure secondary to bilateral pleural effusion/pneumonia Chest x-ray demonstrated bilateral hazy opacities * Sputum culture from 01/29 shows presumptive Zoe albicans * Status post extubation, on nasal cannula * Plan: Physiotherapy GASTROINTESTINAL: Peritonitis due to Perforation of the small bowel, status post exploratory laparotomy Transaminitis secondary to shock Perisplenic abscess * Peritoneal fluid culture from 01/13 shows E coli and Klebsiella pneumoniae sensitive to meropenem (given for 11 days, stopped on 01/31) * CT scan on 01/31 shows, moderate sized fluid collection in the perisplenic region * IR consulted, put pigtail drain, and has drained 50 cc purulent fluid * Patient has brownish discharge of the drain * Small bowel series, normal study * Patient has leakage from surgical area and drainage * Second laparotomy, performed on 02/04, lysis of adhesions, evacuation of pelvic and abdominal infection, resection of proximal jejunum, ileostomy, and jejunostomy and put for CARMEN drains at 4 quadrants * Plan: Surgery planned for Gastrografin and 30, ice chips, IV antibiotics GENITOURINARY: ISRRAEL likely due to shock/VMN, resolved * Monitoring ENDOCRINE: History of hypothyroidism Type 2 diabetes mellitus, hemoglobin A1c 8.2 * Few episodes of hypoglycemia * TSH is raised at 16.29, normal free T4 METABOLIC: Hypokalemia Hyperkalemia Hyponatremia, Nephrology recommended D5W at 75 mL/hour Severe metabolic protein malnutrition * Anion gap metabolic acidosis secondary to bowel ischemia leading to lactic acidosis HEME: Acute on chronic anemia secondary to hemodilution/post surgical 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 * 5 unit of PRBC, 2 pt of platelet, has been given INFECTIOUS DISEASE: Sepsis with septic shock secondary to perforation of the small bowel * Blood culture from 01/29 preliminary result shows Gram-positive rods (1/4 sets of blood culture) * Discontinued levofloxacin Flagyl on 02/03 * Plan: Continue on vancomycin and meropenem started on 02/03 MUSCULOSKELETAL: Rib fracture, due to fall DIET: Ice chips, TPN DVT prophylax: Hold GI prophylaxis: Pantoprazole Bowel regimen: Code status: Full code LINES/DRAINS/ACCESS: ETT: Intubated on 01/14/25 IV access: Rt upper thigh PICC placed on 01/26/2025 Drips: off from pressor and sedatives Leach catheter: Placed on 0 9 /0 5 CARMEN drainage: Four CARMEN drain in 4 quadrants of abdomen DISPOSITION: Downgraded to SHERRY Patient's status discussed with patient and patient's son at the bedside. Critical care time spent more than 63 minutes, including patient care, chart review, and updating the family. Excluding any procedures. Case discussed with Dr. Self Plan discussed with: Other My Orders My Orders Orders - GIGI FELIZ Procedure Category Date Status Time Vancomycin,Random LAB 02/09/25 Verified 04:00 Creatinine LAB 02/09/25 Verified 04:00 Transfer Orders XFER 02/08/25 Transmitted 16:13 Comprehensive LAB 02/09/25 Verified Metabolic Panel 04:00 Complete Blood Count LAB 02/09/25 Verified 04:00 Pureed DIET 02/08/25 Transmitted Dinner Dietary Evaluation Review Comments: Nutrition Recommendation: 1) TPN to meet at least 75% estimated needs within 7 days 2) Monitor NPO status, lab values, wt trend, I/O Expected Outcomes/Goals: To meet >75% estimated needs Lab values to improve Fu 2-3 days CC Plasma Assessment Blood Product Administration S: [id number] Date of Service: Feb 08, 2025 Billing Provider: ZBIGNIEW SELF MD Common Visit Codes: 63554-[id number] CARE 30-74 MIN GIGI FELIZ Feb 08, 2025 18:38 ZBIGNIEW SELF MD Feb 09, 2025 13:19
[2025-02-08] MEDS: TPN PER PHARMACY IV NR (22:23)
[2025-02-09] VITALS (45 sets, daily range): BP systolic 127–189; BP diastolic 61–101; PULSE 80–118; RESP 14–28; TEMP 97.5–98.7; O2SAT 97–100
[2025-02-09] MEDS: LABETALOL HCL 20 MG/4 ML VL IV PRN (01:08)
[2025-02-09 03:33] LABS: Hematocrit 29.3 % (36.0-46.0); Hemoglobin 9.9 g/dL (12.2-16.2); Mean Corpuscular Hemoglobin 29.1 pg (28.0-32.0); Mean Corpuscular Volume 86.3 fL (80.0-100.0); Nucleated Red Blood Cells % 0.1 %
[2025-02-09 03:57] LABS: Alanine Aminotransferase 15 U/L (7-40); Anion Gap 10 (5-15); BUN/Creatinine Ratio 55.2 (10.0-20.0); Carbon Dioxide 24 mmol/L (20-31); Magnesium 2.2 mg/dL (1.6-2.6); Potassium 3.5 mmol/L (3.5-5.1); Sodium 145 mmol/L (136-145)
[2025-02-09 03:59] LABS: Alkaline Phosphatase 172 U/L (46-116); Blood Urea Nitrogen 37 mg/dL (9-23); Chloride 111 mmol/L (98-107); Glucose 156 mg/dL (74-106)
[2025-02-09 04:00] LABS: Albumin 2.1 g/dL (3.2-4.8); Bilirubin, Total 2.4 mg/dL (0.2-1.0); Calcium 8.4 mg/dL (8.7-10.4); Total Protein 5.2 g/dL (5.7-8.2)
--- NOTE | 2025-02-09 12:12 | DVHPN2 ---
Progress Note Date Seen: Feb 09, 2025 Has the PT tested + for MRSA If YES, has PT been informed?: No Medical Necessity Reason Pt with a Central, PICC or Fol: Yes The following are medically ne: Central Line, Leach Catheter Reason for leach catheter: Strict I&O Objective vital signs Vital Sign Date Time Temp Pulse Resp B/P (MAP) Pulse Ox O2 Delivery O2 Flow Rate FiO2 02/09/25 10:30 90 22 144/76 (98) 99 02/09/25 10:15 Nasal Cannula* 2 28 02/09/25 08:00 98.4 98.4 Total Intake and Output 02/08/25 02/08/25 02/09/25 15:00 23:00 07:00 Intake Total 466 ml 384 ml 420 ml Output Total 760 ml 820 ml Balance 466 ml -376 ml -400 ml medications Current Medications Medications Dose Ordered Sig/Isaura Route Start Time Stop Time Status Last Admin Dose Admin Pantoprazole Sodium 40 mg DAILY IV 01/13/25 10:00 02/09/25 09:41 40 MG Cefazolin Sodium 50 ml @ 100 mls/hr Q8HR IV 01/13/25 14:00 UNV Vasopressin 20 units/Sodium Chloride 100 ml @ 9 mls/hr Q11H7M IV 01/13/25 18:45 UNV Potassium Chloride 100 ml @ 50 mls/hr Q2H IV 01/16/25 12:45 01/16/25 18:44 UNV Vancomycin HCl 100 ml @ 100 mls/hr DAILY@1200 IV 01/20/25 12:00 UNV Sodium Chloride 10 ml QSHIFT@10,22 IV 01/26/25 22:00 02/09/25 10:06 10 ML Acetaminophen 650 mg Q6HP PRN GT 01/30/25 16:00 Amino Acids 0 ml @ 0 mls/hr PER PHARMACY IV 01/31/25 16:00 Diagnostic Test (Pha) 1 strip Q6HR 01/31/25 18:00 02/09/25 06:28 1 STRIP Insulin Human Regular FOLLOW SLIDING SCALE Q6HR SC 01/31/25 18:00 02/09/25 05:54 2 UNITS Dextrose 50 ml UD IV 01/31/25 17:00 Vancomycin HCl 0 ml @ 0 mls/hr UD IV 02/03/25 18:30 Meropenem 50 ml @ 17 mls/hr Q12HR IV 02/03/25 22:00 02/09/25 09:46 17 MLS/HR Fat Emulsion Intravenous 150 ml/Sodium Phosphate 10 meq/ Potassium Acetate 30 meq/Potassium Phosphate 30 meq/ Magnesium Sulfate 8 meq/ Multivitamins 10 ml/Chromium/ Copper/Manganese/ Zinc 1 ml/Insulin Human Regular 10 units/Amino Acids/ Dextrose/Purified Water 1,437.4182 ml @ 60 mls/hr [id number] IV 02/08/25 22:00 02/09/25 21:59 02/08/25 22:23 60 MLS/HR Morphine Sulfate 2 mg Q4HPRN PRN IV 02/08/25 09:45 02/09/25 10:00 2 MG Clonidine HCl 0.1 mg Q7D TD 02/08/25 12:30 02/08/25 14:22 0.1 MG Labetalol HCl 10 mg Q4HP PRN IV 02/08/25 12:30 02/09/25 08:27 10 MG Fat Emulsion Intravenous 150 ml/Potassium Acetate 30 meq/ Potassium Phosphate 50 meq/ Magnesium Sulfate 8 meq/ Multivitamins 10 ml/Insulin Human Regular 10 units/ Amino Acids/ Dextrose/Purified Water 1,538.4636 ml @ 64 mls/hr Q24H3M IV 02/09/25 22:00 02/10/25 21:59 laboratory and microbiology Laboratory Tests 02/09/25 02:54 Test 02/09/25 02:54 Range/Units Serum Glucose 156 H 74-106 mg/dL Problem List/Assessment/Plan Problem List/Assessment/Plan 01/14/25 afebrile, low dose BP support, received transfusion, I believe her decreased hematocrit is due to hemodilution. abdomen non distended, soft, wound clean and well approximated, drainage serous . remains intubated and sedated 01/16/25 ALKALOSIS, ABDOMEN NON DISTENDED, SOFT, DRAINAGE SEROUS, WOUND CLEAN AND WELL APPROXIMATED 01/17/25 improved, thrombocytopenia possibly made worse by Fluconazole,will DC, abdomen non distended, wound well approximated without infection, TATY drainage serous, CVP 6, good urine output. 01/18/25 abg reviewed, ,abdomen soft, non distended, TATY drainage clear serous, no bowel activity, febrile, urine output ok, continues with thrombocytopenia,pt and inr slightly elevated. prognosis grave. 01/20/25remains sedated on ventilator, abdomen soft, non distended, faint bowel sounds auscultated by nurse, wound clean and well approximated, TATY drainage clear serous. continues with thrombocytopenia, still behind on intravascular volume( BUN and Creatinine elevated), i would give more IV fluids and DC vancomycin. 01/25/25 afebrile, normotensive, wound clean and well approximated, TATY drainage serous, abdomen non distended, soft, gastrografin small bowel series shows non obstructed GI tract and no evidence of extravasation. It is OK to initiate enteric feedings. 01/29/25 16 DAYS POST OPERATIVELY TRHE TATY DRAINAGE WHICH HAD CONSISTENTLY BEEN SEROUS OR SERO SANGUINEOUS HAS BECOME "DIRTY" BROWNISH DISCOLORATION, HER WOUND IS CLEAN AND WELL APPROXIMATED AND HER ABDOMEN IS SOFT AND NON DISTENDED, CT SCAN SHOWS SO0ME FLUID AND ACCUMULATION OF FLUID AROUND THE SPLEEN, WILL REQUEST CT GUIDED ASPIRATION OF SAME, WILL ORDER IRRIGATION OF DRAINS. SHE SI AFEBRILE AND MAINTAINS NORMAL BLOOD PRESSURE, HER WBC IS NORMAL. 01/30/25 improved, awake, being weaned off vent. abdomen non distended, non tender, taty drainage clearing with irrigation 02/02/25clinically unchanged, gastrografin small bowel series reported and normal, no extravasation reported, will order a follow ujp KUB for tomorrow AM 02/03/25 PATIENT HAD A GASTROGRAFIN SMALL BOWEL SERIES AND A FOLLOW UP KUB X RAYS NEITHER ONE OF WHICH SHOW EXTRAVASATION OF CONTRAST OR EVIDENCE OF FREE CONTRAST IN THE PERITONEAL CAVITY. THERE IS HOWEVER VISCOUS, BROWNISH FLUID DRAINING VIA BOTH TATY DRAINS AND THROUGH INFRAUMBILICAL PORTION OF MIDLINE WOUND, I REMOVED THE RICHIE FROM THE 3 CM SECTION OF THE INFRAUMBILICAL WOUND AND EVACUATED ABOUT 30 CC OF THIS FLUID AND INSTRUCTED THE NURSE TO PLACE A STOMA APPLIANCE ON THIS OPENING. 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 TODAY HER WBC IS ELEVATED, ABDOMEN CONTINUES TO BE NON DISTENDED, SOFT, BUT SHE DOES HAVE SLIGHT TENDERNESS IN THE PERIUMBILICAL AREA. I WILL TREAT THIS EXPECTANTLY FORM THE TIME BEING IN THE HOPE THAT THIS IS A "CONTROLLED" FISTULA AND HOPEFUL WILL HEAL SPONTANEOUSLY WITH NPO AND NUTRITIONAL SUPPORT. WILL WATCH CLOSELY, AFTER A FEW DAYS WILL GET A FISTULOGRAM TO PIN POINT THE ENTERIC ORIGIN OF THE FISTULIZATION. CONTINUE NGT SUCTION AND DRAIN IRRIGATION ORDERED02/05/25 02/05/25 remains sedated and intubated?ventilated, abdomen non distended soft, wound vac in place. TATY drainage serosanguineous 02/08/25 EXTUBATED, GOOD INSPIRATORY EFFORT, BP NML WITHOUT PRESSOR SUPPORT, ABDOMEN SOFT, NON DISTENDED, APPROPRIATELY TENDER, LABS REVIEWED. NO CHANGES TODAY OTHER THAN ALLOW ICE CHIPS PO. WILL ORDER GASTROGRAFIN SMALL BOWEL FOLLOWTHROUGH FOR Friday02/09/25 awake cooperative, wound vac in place, abdomen soft, non distended, appropriately tender, TATY drainage brownish discoloration, will irrigate, her WBC is normal and she is afebrile and normotensive. gastrografin tomorrow Plan discussed with: Patient, Other Dietary Evaluation Review Comments: Nutrition Recommendation: 1) TPN to meet at least 75% estimated needs within 7 days 2) Monitor NPO status, lab values, wt trend, I/O Expected Outcomes/Goals: To meet >75% estimated needs Lab values to improve Fu 2-3 days MELVA RAMESH MD Feb 09, 2025 12:12
[2025-02-09] MEDS: VANCOMYCIN 500mg/100mL 100 ML IV ONE (13:25)
--- NOTE | 2025-02-09 16:07 | DVHPNRES ---
Progress Note Date Seen: Feb 09, 2025 Resident Creating Document: GIGI FELIZ AMBROSE Has the PT tested + for MRSA If YES, has PT been informed?: No Medical Necessity Reason Pt with a Central, PICC or Fol: Yes The following are medically ne: Central Line, Leach Catheter Reason for leach catheter: Strict I&O Subjective Review of Systems Patient Is seen and examined at the bedside. Patient extubated on 02/08. Status post extubation, patient can maintain oxygen through nasal cannula. Alert awake and oriented, not have any active complaint. Objective vital signs Vital Sign Date Time Temp Pulse Resp B/P (MAP) Pulse Ox O2 Delivery O2 Flow Rate FiO2 02/09/25 14:10 17 98 Nasal Cannula* 2 28 02/09/25 14:04 87 155/81 02/09/25 08:00 98.4 98.4 Total Intake and Output 02/08/25 02/08/25 02/09/25 14:59 22:59 06:59 Intake Total 466 ml 378 ml 480 ml Output Total 760 ml 820 ml Balance 466 ml -382 ml -340 ml medications Current Medications Medications Dose Ordered Sig/Isaura Route Start Time Stop Time Status Last Admin Dose Admin Pantoprazole Sodium 40 mg DAILY IV 01/13/25 10:00 02/09/25 09:41 40 MG Cefazolin Sodium 50 ml @ 100 mls/hr Q8HR IV 01/13/25 14:00 UNV Vasopressin 20 units/Sodium Chloride 100 ml @ 9 mls/hr Q11H7M IV 01/13/25 18:45 UNV Potassium Chloride 100 ml @ 50 mls/hr Q2H IV 01/16/25 12:45 01/16/25 18:44 UNV Vancomycin HCl 100 ml @ 100 mls/hr DAILY@1200 IV 01/20/25 12:00 UNV Sodium Chloride 10 ml QSHIFT@10,22 IV 01/26/25 22:00 02/09/25 10:06 10 ML Acetaminophen 650 mg Q6HP PRN GT 01/30/25 16:00 Amino Acids 0 ml @ 0 mls/hr PER PHARMACY IV 01/31/25 16:00 Diagnostic Test (Pha) 1 strip Q6HR 01/31/25 18:00 02/09/25 12:16 1 STRIP Insulin Human Regular FOLLOW SLIDING SCALE Q6HR SC 01/31/25 18:00 02/09/25 12:22 4 UNITS Dextrose 50 ml UD IV 01/31/25 17:00 Vancomycin HCl 0 ml @ 0 mls/hr UD IV 02/03/25 18:30 Meropenem 50 ml @ 17 mls/hr Q12HR IV 02/03/25 22:00 02/09/25 09:46 17 MLS/HR Fat Emulsion Intravenous 150 ml/Sodium Phosphate 10 meq/ Potassium Acetate 30 meq/Potassium Phosphate 30 meq/ Magnesium Sulfate 8 meq/ Multivitamins 10 ml/Chromium/ Copper/Manganese/ Zinc 1 ml/Insulin Human Regular 10 units/Amino Acids/ Dextrose/Purified Water 1,437.4182 ml @ 60 mls/hr [id number] IV 02/08/25 22:00 02/09/25 21:59 02/08/25 22:23 60 MLS/HR Morphine Sulfate 2 mg Q4HPRN PRN IV 02/08/25 09:45 02/09/25 14:04 2 MG Clonidine HCl 0.1 mg Q7D TD 02/08/25 12:30 02/08/25 14:22 0.1 MG Labetalol HCl 10 mg Q4HP PRN IV 02/08/25 12:30 02/09/25 13:26 10 MG Fat Emulsion Intravenous 150 ml/Potassium Acetate 30 meq/ Potassium Phosphate 50 meq/ Magnesium Sulfate 8 meq/ Multivitamins 10 ml/Insulin Human Regular 10 units/ Amino Acids/ Dextrose/Purified Water 1,538.4636 ml @ 64 mls/hr Q24H3M IV 02/09/25 22:00 02/10/25 21:59 Examination General Appearance: Alert, Oriented X3, Cooperative, No acute distress HEENT: Atraumatic, PERRLA, EOMI, Mucous membrane moist/pink Respiratory: Clear to auscultation, Normal air movement Cardiovascular: Regular rate, Normal S1, Normal S2, No murmurs, no chest wall tenderness Abdominal: Mild abdominal tenderness, with wound VAC at the midline, for CARMEN drain at 4 quadrant, draining brownish fluid Extremities: No clubbing, No cyanosis, No edema, Normal pulses, No tenderness/swelling Skin: No rashes, No breakdown, No significant lesion Neuro: Grossly intact Psych/Mental Status: Mental status NL, Mood NL laboratory and microbiology Laboratory Tests 02/09/25 02:54 Test 10/1/25 02:54 Range/Units Serum Glucose 156 H 74-106 mg/dL Microbiology Date/Time Source Procedure Growth Status 01/31/25 13:30 Aspirate Gram Stain - Final Complete 01/31/25 13:30 Aspirate Body Fluid Culture - Final Complete 01/29/25 14:00 Sputum Gram Stain - Final Complete 01/29/25 14:00 Respiratory Culture - Final Presumptive Zoe albicans Complete 01/29/25 10:40 Blood Blood Culture - Final NO GROWTH AFTER 5 DAYS OF INCUBATION. Complete 01/28/25 12:55 Voided Urine Urine Culture - Final Complete 01/13/25 17:10 Nose MRSA Screen - Final Complete Problem List/Assessment/Plan Problem List/Assessment/Plan This is a 80-year-old lady with past medical history of hypertension, AFib (on Eliquis), diabetes type 2, CKD, came to the hospital due to abdominal pain, and constipation. Admitted on 01/13/2025. Found to have peritonitis due to bowel perforation, and underwent emergent laparotomy with subsequent resection of perforated small bowel and enteroenterostomy. Due to abnormal CARMEN drainage, second exploratory laparotomy performed on 02/04 and found to have perforation near to previous perforation area, underwent resection of area with subsequent anastomosis of proximal jejunal loops. Extubated on 02/07. 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 PULMONARY: Acute hypoxic respiratory failure secondary to bilateral pleural effusion/pneumonia Chest x-ray demonstrated bilateral hazy opacities * Sputum culture from 01/29 shows presumptive Zoe albicans * Status post extubation, on nasal cannula * Plan: Physiotherapy GASTROINTESTINAL: Peritonitis due to Perforation of the small bowel, status post exploratory laparotomy Transaminitis secondary to shock Perisplenic abscess * Peritoneal fluid culture from 01/13 shows E coli and Klebsiella pneumoniae sensitive to meropenem (given for 11 days, stopped on 01/31) * CT scan on 01/31 shows, moderate sized fluid collection in the perisplenic region * IR consulted, put pigtail drain, and has drained 50 cc purulent fluid * Patient has brownish discharge of the drain * Small bowel series, normal study * Patient has leakage from surgical area and drainage * Second laparotomy, performed on 02/04, lysis of adhesions, evacuation of pelvic and abdominal infection, resection of proximal jejunum, ileostomy, and jejunostomy and put for CARMEN drains at 4 quadrants * Plan: Surgery planned for Gastrografin and 30, ice chips, IV antibiotics GENITOURINARY: ISRRAEL likely due to shock/VMN, resolved * Monitoring ENDOCRINE: History of hypothyroidism Type 2 diabetes mellitus, hemoglobin A1c 8.2 * Few episodes of hypoglycemia * TSH is raised at 16.29, normal free T4 METABOLIC: Hypokalemia Hyperkalemia Hyponatremia, Nephrology recommended D5W at 75 mL/hour Severe metabolic protein malnutrition * Anion gap metabolic acidosis secondary to bowel ischemia leading to lactic acidosis HEME: Acute on chronic anemia secondary to hemodilution/post surgical 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 * 5 unit of PRBC, 2 pt of platelet, has been given INFECTIOUS DISEASE: Sepsis with septic shock secondary to perforation of the small bowel * Blood culture from 01/29 preliminary result shows Gram-positive rods (1/4 sets of blood culture) * Discontinued levofloxacin Flagyl on 02/03 * Plan: Continue on vancomycin and meropenem started on 02/03 MUSCULOSKELETAL: Rib fracture, due to fall DIET: Ice chips, TPN DVT prophylax: Hold GI prophylaxis: Pantoprazole Bowel regimen: Code status: Full code LINES/DRAINS/ACCESS: ETT: Intubated on 01/14/25 IV access: Rt upper thigh PICC placed on 01/26/2025 Drips: off from pressor and sedatives Leach catheter: Placed on 0 9 /0 5 CARMEN drainage: Four CARMEN drain in 4 quadrants of abdomen DISPOSITION: Downgraded to SHERRY Patient's status discussed with patient and patient's son at the bedside. Critical care time spent more than 63 minutes, including patient care, chart review, and updating the family. Excluding any procedures. Case discussed with Dr. Self Plan discussed with: Other My Orders My Orders Orders - GIGI FELIZ Procedure Category Date Status Time Transfer Orders XFER 02/08/25 Transmitted 16:13 Vancomycin,Random LAB 02/10/25 Verified 04:00 Creatinine LAB 02/10/25 Verified 04:00 Dietary Evaluation Review Comments: Nutrition Recommendation: 1) TPN to meet at least 75% estimated needs within 7 days 2) Monitor NPO status, lab values, wt trend, I/O Expected Outcomes/Goals: To meet >75% estimated needs Lab values to improve Fu 2-3 days CC Plasma Assessment Blood Product Administration S: [id number] Date of Service: Feb 09, 2025 Billing Provider: ZBIGNIEW SELF MD Common Visit Codes: 66430-ROIVUNRC CARE 30-74 MIN GIGI FELIZ Feb 09, 2025 16:06 ZBIGNIEW SELF MD Feb 12, 2025 11:23
[2025-02-09] MEDS: TPN PER PHARMACY IV NR (23:29)
[2025-02-10] VITALS (24 sets, daily range): BP systolic 109–180; BP diastolic 63–100; PULSE 85–104; RESP 16–29; TEMP 97.8–98.8; O2SAT 93–100
[2025-02-10 03:49] LABS: Hematocrit 29.8 % (36.0-46.0); Hemoglobin 10.0 g/dL (12.2-16.2); Mean Corpuscular Hemoglobin 28.8 pg (28.0-32.0); Mean Corpuscular Volume 86.1 fL (80.0-100.0); Nucleated Red Blood Cells % 0.1 %
[2025-02-10 04:08] LABS: Alanine Aminotransferase 21 U/L (7-40); Anion Gap 10 (5-15); BUN/Creatinine Ratio 59.0 (10.0-20.0); Carbon Dioxide 23 mmol/L (20-31); Magnesium 2.2 mg/dL (1.6-2.6); Potassium 4.1 mmol/L (3.5-5.1); Sodium 143 mmol/L (136-145)
[2025-02-10 04:21] LABS: Albumin 2.2 g/dL (3.2-4.8); Alkaline Phosphatase 190 U/L (46-116); Bilirubin, Total 2.5 mg/dL (0.2-1.0); Blood Urea Nitrogen 46 mg/dL (9-23); Calcium 8.2 mg/dL (8.7-10.4); Chloride 110 mmol/L (98-107); Glucose 169 mg/dL (74-106); Total Protein 5.5 g/dL (5.7-8.2)
[2025-02-10] MEDS: SODIUM CHLORIDE 0.9% 250 ML IV ONE (10:00)
[2025-02-10] MEDS: VANCOMYCIN 750MG KIT 100 ML IV ONE (12:37)
--- NOTE | 2025-02-10 13:41 | DVHPN2 ---
Progress Note Date Seen: Feb 10, 2025 Has the PT tested + for MRSA If YES, has PT been informed?: No Medical Necessity Reason Pt with a Central, PICC or Fol: Yes The following are medically ne: Central Line, Leach Catheter Reason for leach catheter: Strict I&O Objective vital signs Vital Sign Date Time Temp Pulse Resp B/P (MAP) Pulse Ox O2 Delivery O2 Flow Rate FiO2 02/10/25 10:01 95 22 161/77 (105) 02/10/25 10:00 98 Nasal Cannula* 2 28 02/10/25 08:00 98.8 98.8 Total Intake and Output 02/09/25 02/09/25 02/10/25 15:00 23:00 07:00 Intake Total 530 ml 420 ml 1212 ml Output Total 750 ml 790 ml Balance 530 ml -330 ml 422 ml medications Current Medications Medications Dose Ordered Sig/Isaura Route Start Time Stop Time Status Last Admin Dose Admin Pantoprazole Sodium 40 mg DAILY IV 01/13/25 10:00 02/10/25 09:14 40 MG Cefazolin Sodium 50 ml @ 100 mls/hr Q8HR IV 01/13/25 14:00 UNV Vasopressin 20 units/Sodium Chloride 100 ml @ 9 mls/hr Q11H7M IV 01/13/25 18:45 UNV Potassium Chloride 100 ml @ 50 mls/hr Q2H IV 01/16/25 12:45 01/16/25 18:44 UNV Vancomycin HCl 100 ml @ 100 mls/hr DAILY@1200 IV 01/20/25 12:00 UNV Sodium Chloride 10 ml QSHIFT@10,22 IV 01/26/25 22:00 02/10/25 09:14 10 ML Acetaminophen 650 mg Q6HP PRN GT 01/30/25 16:00 Amino Acids 0 ml @ 0 mls/hr PER PHARMACY IV 01/31/25 16:00 Diagnostic Test (Pha) 1 strip Q6HR 01/31/25 18:00 02/10/25 12:00 1 STRIP Insulin Human Regular FOLLOW SLIDING SCALE Q6HR SC 01/31/25 18:00 02/10/25 12:00 4 UNITS Dextrose 50 ml UD IV 01/31/25 17:00 Vancomycin HCl 0 ml @ 0 mls/hr UD IV 02/03/25 18:30 Meropenem 50 ml @ 17 mls/hr Q12HR IV 02/03/25 22:00 02/10/25 09:14 17 MLS/HR Morphine Sulfate 2 mg Q4HPRN PRN IV 02/08/25 09:45 02/10/25 08:35 2 MG Clonidine HCl 0.1 mg Q7D TD 02/08/25 12:30 02/08/25 14:22 0.1 MG Labetalol HCl 10 mg Q4HP PRN IV 02/08/25 12:30 02/10/25 05:31 10 MG Fat Emulsion Intravenous 150 ml/Potassium Acetate 30 meq/ Potassium Phosphate 50 meq/ Magnesium Sulfate 8 meq/ Multivitamins 10 ml/Insulin Human Regular 10 units/ Amino Acids/ Dextrose/Purified Water 1,538.4636 ml @ 64 mls/hr Q24H3M IV 02/09/25 22:00 02/10/25 21:59 02/09/25 23:29 64 MLS/HR Fat Emulsion Intravenous 150 ml/Potassium Acetate 40 meq/ Potassium Phosphate 22 meq/ Magnesium Sulfate 8 meq/ Multivitamins 10 ml/Insulin Human Regular 10 units/ Amino Acids/ Dextrose/Purified Water 1,637.1 ml @ 68 mls/hr Q24H5M IV 02/10/25 22:00 02/11/25 21:59 laboratory and microbiology Laboratory Tests 02/10/25 02:54 Test 02/10/25 02:54 Range/Units Serum Glucose 169 H 74-106 mg/dL Problem List/Assessment/Plan Problem List/Assessment/Plan 01/14/25 afebrile, low dose BP support, received transfusion, I believe her decreased hematocrit is due to hemodilution. abdomen non distended, soft, wound clean and well approximated, drainage serous . remains intubated and sedated 01/16/25 ALKALOSIS, ABDOMEN NON DISTENDED, SOFT, DRAINAGE SEROUS, WOUND CLEAN AND WELL APPROXIMATED 01/17/25 improved, thrombocytopenia possibly made worse by Fluconazole,will DC, abdomen non distended, wound well approximated without infection, TATY drainage serous, CVP 6, good urine output. 01/18/25 abg reviewed, ,abdomen soft, non distended, TATY drainage clear serous, no bowel activity, febrile, urine output ok, continues with thrombocytopenia,pt and inr slightly elevated. prognosis grave. 01/20/25remains sedated on ventilator, abdomen soft, non distended, faint bowel sounds auscultated by nurse, wound clean and well approximated, TATY drainage clear serous. continues with thrombocytopenia, still behind on intravascular volume( BUN and Creatinine elevated), i would give more IV fluids and DC vancomycin. 01/25/25 afebrile, normotensive, wound clean and well approximated, TATY drainage serous, abdomen non distended, soft, gastrografin small bowel series shows non obstructed GI tract and no evidence of extravasation. It is OK to initiate enteric feedings. 01/29/25 16 DAYS POST OPERATIVELY TRHE TATY DRAINAGE WHICH HAD CONSISTENTLY BEEN SEROUS OR SERO SANGUINEOUS HAS BECOME "DIRTY" BROWNISH DISCOLORATION, HER WOUND IS CLEAN AND WELL APPROXIMATED AND HER ABDOMEN IS SOFT AND NON DISTENDED, CT SCAN SHOWS SO0ME FLUID AND ACCUMULATION OF FLUID AROUND THE SPLEEN, WILL REQUEST CT GUIDED ASPIRATION OF SAME, WILL ORDER IRRIGATION OF DRAINS. SHE SI AFEBRILE AND MAINTAINS NORMAL BLOOD PRESSURE, HER WBC IS NORMAL. 01/30/25 improved, awake, being weaned off vent. abdomen non distended, non tender, taty drainage clearing with irrigation 02/02/25clinically unchanged, gastrografin small bowel series reported and normal, no extravasation reported, will order a follow ujp KUB for tomorrow AM 02/03/25 PATIENT HAD A GASTROGRAFIN SMALL BOWEL SERIES AND A FOLLOW UP KUB X RAYS NEITHER ONE OF WHICH SHOW EXTRAVASATION OF CONTRAST OR EVIDENCE OF FREE CONTRAST IN THE PERITONEAL CAVITY. THERE IS HOWEVER VISCOUS, BROWNISH FLUID DRAINING VIA BOTH TATY DRAINS AND THROUGH INFRAUMBILICAL PORTION OF MIDLINE WOUND, I REMOVED THE RICHIE FROM THE 3 CM SECTION OF THE INFRAUMBILICAL WOUND AND EVACUATED ABOUT 30 CC OF THIS FLUID AND INSTRUCTED THE NURSE TO PLACE A STOMA APPLIANCE ON THIS OPENING. 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 TODAY HER WBC IS ELEVATED, ABDOMEN CONTINUES TO BE NON DISTENDED, SOFT, BUT SHE DOES HAVE SLIGHT TENDERNESS IN THE PERIUMBILICAL AREA. I WILL TREAT THIS EXPECTANTLY FORM THE TIME BEING IN THE HOPE THAT THIS IS A "CONTROLLED" FISTULA AND HOPEFUL WILL HEAL SPONTANEOUSLY WITH NPO AND NUTRITIONAL SUPPORT. WILL WATCH CLOSELY, AFTER A FEW DAYS WILL GET A FISTULOGRAM TO PIN POINT THE ENTERIC ORIGIN OF THE FISTULIZATION. CONTINUE NGT SUCTION AND DRAIN IRRIGATION ORDERED02/05/25 02/05/25 remains sedated and intubated?ventilated, abdomen non distended soft, wound vac in place. TATY drainage serosanguineous 02/08/25 EXTUBATED, GOOD INSPIRATORY EFFORT, BP NML WITHOUT PRESSOR SUPPORT, ABDOMEN SOFT, NON DISTENDED, APPROPRIATELY TENDER, LABS REVIEWED. NO CHANGES TODAY OTHER THAN ALLOW ICE CHIPS PO. WILL ORDER GASTROGRAFIN SMALL BOWEL FOLLOWTHROUGH FOR Friday02/09/25 awake cooperative, wound vac in place, abdomen soft, non distended, appropriately tender, TATY drainage brownish discoloration, will irrigate, her WBC is normal and she is afebrile and normotensive. gastrografin tomorrow 02/10/25 AWAKE,COMFORTABLE, DENIES PAIN, ABDOMEN NON DISTENDED APPROPRIATELY TENDER, WOUND CLEAN AND WELL APPROXIMATED, DRAINS BEING IRRIGATED, LABS OK, GOOD URINE OUTPUT. "SURGICALLY" STABLE Plan discussed with: Patient, Son, Other Dietary Evaluation Review Comments: Nutrition Recommendation: 1) TPN to meet at least 75% estimated needs within 7 days 2) Monitor NPO status, lab values, wt trend, I/O Expected Outcomes/Goals: To meet >75% estimated needs Lab values to improve Fu 2-3 days MELVA RAMESH MD Feb 10, 2025 13:41
--- NOTE | 2025-02-10 15:16 | ECG ---
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
--- NOTE | 2025-02-10 19:32 | DVHPNRES ---
Progress Note Date Seen: Feb 10, 2025 Resident Creating Document: GIGI FELIZ AMBROSE Has the PT tested + for MRSA If YES, has PT been informed?: No Medical Necessity Reason Pt with a Central, PICC or Fol: Yes The following are medically ne: Central Line, Leach Catheter Reason for leach catheter: Strict I&O Subjective Review of Systems Patient Is seen and examined at the bedside. Patient extubated on 02/08. Status post extubation, patient can maintain oxygen through nasal cannula. Alert awake and oriented, not have any active complaint. Objective vital signs Vital Sign Date Time Temp Pulse Resp B/P (MAP) Pulse Ox O2 Delivery O2 Flow Rate FiO2 02/10/25 18:00 21 97 Nasal Cannula* 2 28 02/10/25 18:00 102 02/10/25 18:00 130/82 (98) 02/10/25 16:00 97.8 97.8 Total Intake and Output 02/09/25 02/09/25 02/10/25 15:00 23:00 07:00 Intake Total 530 ml 420 ml 1212 ml Output Total 750 ml 790 ml Balance 530 ml -330 ml 422 ml medications Current Medications Medications Dose Ordered Sig/Isaura Route Start Time Stop Time Status Last Admin Dose Admin Pantoprazole Sodium 40 mg DAILY IV 01/13/25 10:00 02/10/25 09:14 40 MG Cefazolin Sodium 50 ml @ 100 mls/hr Q8HR IV 01/13/25 14:00 UNV Vasopressin 20 units/Sodium Chloride 100 ml @ 9 mls/hr Q11H7M IV 01/13/25 18:45 UNV Potassium Chloride 100 ml @ 50 mls/hr Q2H IV 01/16/25 12:45 01/16/25 18:44 UNV Vancomycin HCl 100 ml @ 100 mls/hr DAILY@1200 IV 01/20/25 12:00 UNV Sodium Chloride 10 ml QSHIFT@10,22 IV 01/26/25 22:00 02/10/25 09:14 10 ML Acetaminophen 650 mg Q6HP PRN GT 01/30/25 16:00 Amino Acids 0 ml @ 0 mls/hr PER PHARMACY IV 01/31/25 16:00 Diagnostic Test (Pha) 1 strip Q6HR 01/31/25 18:00 02/10/25 18:29 1 STRIP Insulin Human Regular FOLLOW SLIDING SCALE Q6HR SC 01/31/25 18:00 02/10/25 12:00 4 UNITS Dextrose 50 ml UD IV 01/31/25 17:00 Vancomycin HCl 0 ml @ 0 mls/hr UD IV 02/03/25 18:30 Meropenem 50 ml @ 17 mls/hr Q12HR IV 02/03/25 22:00 02/10/25 09:14 17 MLS/HR Morphine Sulfate 2 mg Q4HPRN PRN IV 02/08/25 09:45 02/10/25 14:36 2 MG Clonidine HCl 0.1 mg Q7D TD 02/08/25 12:30 02/08/25 14:22 0.1 MG Labetalol HCl 10 mg Q4HP PRN IV 02/08/25 12:30 02/10/25 05:31 10 MG Fat Emulsion Intravenous 150 ml/Potassium Acetate 30 meq/ Potassium Phosphate 50 meq/ Magnesium Sulfate 8 meq/ Multivitamins 10 ml/Insulin Human Regular 10 units/ Amino Acids/ Dextrose/Purified Water 1,538.4636 ml @ 64 mls/hr Q24H3M IV 02/09/25 22:00 02/10/25 21:59 02/09/25 23:29 64 MLS/HR Fat Emulsion Intravenous 150 ml/Potassium Acetate 40 meq/ Potassium Phosphate 22 meq/ Magnesium Sulfate 8 meq/ Multivitamins 10 ml/Insulin Human Regular 10 units/ Amino Acids/ Dextrose/Purified Water 1,637.1 ml @ 68 mls/hr Q24H5M IV 02/10/25 22:00 02/11/25 21:59 Examination General Appearance: Alert, Oriented X3, Cooperative, No acute distress HEENT: Atraumatic, PERRLA, EOMI, Mucous membrane moist/pink Respiratory: Clear to auscultation, Normal air movement Cardiovascular: Regular rate, Normal S1, Normal S2, No murmurs, no chest wall tenderness Abdominal: Mild abdominal tenderness, with wound VAC at the midline, for CARMEN drain at 4 quadrant, draining brownish fluid Extremities: No clubbing, No cyanosis, No edema, Normal pulses, No tenderness/swelling Skin: No rashes, No breakdown, No significant lesion Neuro: Grossly intact Psych/Mental Status: Mental status NL, Mood NL laboratory and microbiology Laboratory Tests 02/10/25 02:54 Test 02/10/25 02:54 Range/Units Serum Glucose 169 H 74-106 mg/dL Microbiology Date/Time Source Procedure Growth Status 01/31/25 13:30 Aspirate Gram Stain - Final Complete 01/31/25 13:30 Aspirate Body Fluid Culture - Final Complete 01/29/25 14:00 Sputum Gram Stain - Final Complete 01/29/25 14:00 Respiratory Culture - Final Presumptive Zoe albicans Complete 01/29/25 10:40 Blood Blood Culture - Final NO GROWTH AFTER 5 DAYS OF INCUBATION. Complete 01/28/25 12:55 Voided Urine Urine Culture - Final Complete 01/13/25 17:10 Nose MRSA Screen - Final Complete Problem List/Assessment/Plan Problem List/Assessment/Plan This is a 80-year-old lady with past medical history of hypertension, AFib (on Eliquis), diabetes type 2, CKD, came to the hospital due to abdominal pain, and constipation. Admitted on 01/13/2025. Found to have peritonitis due to bowel perforation, and underwent emergent laparotomy with subsequent resection of perforated small bowel and enteroenterostomy. Due to abnormal CARMEN drainage, second exploratory laparotomy performed on 02/04 and found to have perforation near to previous perforation area, underwent resection of area with subsequent anastomosis of proximal jejunal loops. Extubated on 02/07. 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 PULMONARY: Acute hypoxic respiratory failure secondary to bilateral pleural effusion/pneumonia Chest x-ray demonstrated bilateral hazy opacities * Sputum culture from 01/29 shows presumptive Zoe albicans * Status post extubation, on nasal cannula * Plan: Physiotherapy GASTROINTESTINAL: Peritonitis due to Perforation of the small bowel, status post exploratory laparotomy Transaminitis secondary to shock Perisplenic abscess * Peritoneal fluid culture from 01/13 shows E coli and Klebsiella pneumoniae sensitive to meropenem (given for 11 days, stopped on 01/31) * CT scan on 01/31 shows, moderate sized fluid collection in the perisplenic region * IR consulted, put pigtail drain, and has drained 50 cc purulent fluid * Patient has brownish discharge of the drain * Small bowel series, normal study * Patient has leakage from surgical area and drainage * Second laparotomy, performed on 02/04, lysis of adhesions, evacuation of pelvic and abdominal infection, resection of proximal jejunum, ileostomy, and jejunostomy and put for CARMEN drains at 4 quadrants * Plan: Surgery planned for Gastrografin on02/11, ice chips, IV antibiotics GENITOURINARY: ISRRAEL likely due to shock/VMN, resolved * Monitoring ENDOCRINE: History of hypothyroidism Type 2 diabetes mellitus, hemoglobin A1c 8.2 * Few episodes of hypoglycemia * TSH is raised at 16.29, normal free T4 METABOLIC: Hypokalemia Hyperkalemia Hyponatremia, Nephrology recommended D5W at 75 mL/hour Severe metabolic protein malnutrition * Anion gap metabolic acidosis secondary to bowel ischemia leading to lactic acidosis HEME: Acute on chronic anemia secondary to hemodilution/post surgical 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 * 5 unit of PRBC, 2 pt of platelet, has been given INFECTIOUS DISEASE: Sepsis with septic shock secondary to perforation of the small bowel * Blood culture from 01/29 preliminary result shows Gram-positive rods (1/4 sets of blood culture) * Discontinued levofloxacin Flagyl on 02/03 * Plan: Continue on vancomycin and meropenem started on 02/03 MUSCULOSKELETAL: Rib fracture, due to fall DIET: Ice chips, TPN DVT prophylax: Hold GI prophylaxis: Pantoprazole Bowel regimen: Code status: Full code LINES/DRAINS/ACCESS: ETT: Intubated on 01/14/25 IV access: Rt upper thigh PICC placed on 01/26/2025 Drips: off from pressor and sedatives Leach catheter: Placed on 0 9 /0 5 CARMEN drainage: Four CARMEN drain in 4 quadrants of abdomen DISPOSITION: Downgraded to SHERRY Patient's status discussed with patient and patient's son at the bedside. Critical care time spent more than 63 minutes, including patient care, chart review, and updating the family. Excluding any procedures. Case discussed with Dr. Self Plan discussed with: Other My Orders My Orders Orders - GIGI FELIZ Procedure Category Date Status Time Vancomycin,Random LAB 02/11/25 Verified 04:00 Complete Blood Count LAB 02/11/25 Verified 04:00 Chest Xray 1 View XY 02/11/25 Logged 04:00 Abg W/ Co-Ox RT 02/11/25 Logged 04:00 Dietary Evaluation Review Comments: Nutrition Recommendation: 1) TPN to meet at least 75% estimated needs within 7 days 2) Monitor NPO status, lab values, wt trend, I/O Expected Outcomes/Goals: To meet >75% estimated needs Lab values to improve Fu 2-3 days CC Plasma Assessment Blood Product Administration S: [id number] Date of Service: Feb 10, 2025 Billing Provider: ZBIGNIEW SELF MD Common Visit Codes: [id number] CARE 30-74 MIN GIGI FELIZ Feb 10, 2025 19:32 ZBIGNIEW SELF MD Feb 12, 2025 11:34
[2025-02-10] MEDS: TPN PER PHARMACY IV NR (21:55)
[2025-02-10] MEDS: METOCLOPRAMIDE HCL 5MG/ml INJ 2ml VIAL IV ONE (22:17)
[2025-02-10] MEDS: ONDANSETRON HCL 4 MG/2 ML VIAL IM ONE (22:19)
[2025-02-11] VITALS (26 sets, daily range): BP systolic 64–180; BP diastolic 30–98; PULSE 90–121; RESP 20–32; TEMP 98–99.4; O2SAT 95–99
--- NOTE | 2025-02-11 05:42 | DVH ---
CHEST RADIOGRAPH Indication: Pneumonia Technique: Single frontal view of the chest was obtained COMPARISON: XY CHEST XRAY 1 VIEW on DOS: 02/08/25, XY CHEST PORTABLE on DOS: 02/07/25, XY CHEST PORTABL E on DOS: 02/06/25, XY CHEST XRAY 1 VIEW on DOS: 02/05/25, XY CHEST XRAY 1 VIEW on DOS: 02/04/25 FINDINGS: Lines and Tubes: Enteric catheter and left basilar chest tube in satisfactory position. Lungs: Clear. Pleura: No effusion. No pneumothorax. Cardiomediastinal contours: Cardiomegaly. Unchanged pulmonary vascular congestion. Bones: Unremarkable. IMPRESSION: Lines and tubes in satisfactory position. No significant interval change.
[2025-02-11 06:00] LABS: Hematocrit 30.4 % (36.0-46.0); Hemoglobin 9.9 g/dL (12.2-16.2); Mean Corpuscular Hemoglobin 29.1 pg (28.0-32.0); Mean Corpuscular Volume 88.9 fL (80.0-100.0); Nucleated Red Blood Cells % 0.2 %
[2025-02-11 06:05] LABS: Alanine Aminotransferase 26 U/L (7-40); Anion Gap 9 (5-15); BUN/Creatinine Ratio 60.0 (10.0-20.0); Carbon Dioxide 23 mmol/L (20-31); Magnesium 2.1 mg/dL (1.6-2.6); Potassium 4.5 mmol/L (3.5-5.1); Sodium 142 mmol/L (136-145)
[2025-02-11 06:10] LABS: Albumin 2.2 g/dL (3.2-4.8); Alkaline Phosphatase 191 U/L (46-116); Bilirubin, Total 2.7 mg/dL (0.2-1.0); Blood Urea Nitrogen 51 mg/dL (9-23); Calcium 8.1 mg/dL (8.7-10.4); Chloride 110 mmol/L (98-107); Glucose 173 mg/dL (74-106); Total Protein 5.6 g/dL (5.7-8.2)
[2025-02-11] MEDS: KETOROLAC TROMETH 30 MG/ML 1ML VIAL IV ONE ×2 (06:31→22:29)
--- NOTE | 2025-02-11 09:04 | DVHPN2 ---
Progress Note Date Seen: Feb 11, 2025 Has the PT tested + for MRSA If YES, has PT been informed?: No Medical Necessity Reason Pt with a Central, PICC or Fol: Yes The following are medically ne: Central Line, Leach Catheter Reason for leach catheter: Strict I&O Objective vital signs Vital Sign Date Time Temp Pulse Resp B/P (MAP) Pulse Ox O2 Delivery O2 Flow Rate FiO2 02/11/25 08:00 22 98 Room Air* 0 21 02/11/25 08:00 100 02/11/25 08:00 98.2 104/61 (75) 98.2 Total Intake and Output 02/10/25 02/10/25 02/11/25 14:59 22:59 06:59 Intake Total 1193 ml 324 ml 614 ml Output Total 730 ml 850 ml Balance 1193 ml -406 ml -236 ml medications Current Medications Medications Dose Ordered Sig/Isaura Route Start Time Stop Time Status Last Admin Dose Admin Pantoprazole Sodium 40 mg DAILY IV 01/13/25 10:00 02/10/25 09:14 40 MG Cefazolin Sodium 50 ml @ 100 mls/hr Q8HR IV 01/13/25 14:00 UNV Vasopressin 20 units/Sodium Chloride 100 ml @ 9 mls/hr Q11H7M IV 01/13/25 18:45 UNV Potassium Chloride 100 ml @ 50 mls/hr Q2H IV 01/16/25 12:45 01/16/25 18:44 UNV Vancomycin HCl 100 ml @ 100 mls/hr DAILY@1200 IV 01/20/25 12:00 UNV Sodium Chloride 10 ml QSHIFT@10,22 IV 01/26/25 22:00 02/10/25 21:56 10 ML Acetaminophen 650 mg Q6HP PRN GT 01/30/25 16:00 Amino Acids 0 ml @ 0 mls/hr PER PHARMACY IV 01/31/25 16:00 Diagnostic Test (Pha) 1 strip Q6HR 01/31/25 18:00 02/11/25 05:41 1 STRIP Insulin Human Regular FOLLOW SLIDING SCALE Q6HR SC 01/31/25 18:00 02/11/25 05:54 4 UNITS Dextrose 50 ml UD IV 01/31/25 17:00 Vancomycin HCl 0 ml @ 0 mls/hr UD IV 02/03/25 18:30 Meropenem 50 ml @ 17 mls/hr Q12HR IV 02/03/25 22:00 02/10/25 21:17 17 MLS/HR Morphine Sulfate 2 mg Q4HPRN PRN IV 02/08/25 09:45 02/10/25 19:43 2 MG Clonidine HCl 0.1 mg Q7D TD 02/08/25 12:30 02/08/25 14:22 0.1 MG Labetalol HCl 10 mg Q4HP PRN IV 02/08/25 12:30 02/10/25 05:31 10 MG Fat Emulsion Intravenous 150 ml/Potassium Acetate 40 meq/ Potassium Phosphate 22 meq/ Magnesium Sulfate 8 meq/ Multivitamins 10 ml/Insulin Human Regular 10 units/ Amino Acids/ Dextrose/Purified Water 1,637.1 ml @ 68 mls/hr Q24H5M IV 02/10/25 22:00 02/11/25 21:59 02/10/25 21:55 68 MLS/HR Fat Emulsion Intravenous 100 ml/Potassium Phosphate 22 meq/ Magnesium Sulfate 8 meq/ Multivitamins 10 ml/Insulin Human Regular 12 units/ Amino Acids/ Dextrose/Purified Water 1,567.12 ml @ 66 mls/hr [id number] IV 02/11/25 22:00 02/12/25 21:59 laboratory and microbiology Laboratory Tests 02/11/25 05:10 Test 02/11/25 05:10 Range/Units Serum Glucose 173 H 74-106 mg/dL Problem List/Assessment/Plan Problem List/Assessment/Plan 01/14/25 afebrile, low dose BP support, received transfusion, I believe her decreased hematocrit is due to hemodilution. abdomen non distended, soft, wound clean and well approximated, drainage serous . remains intubated and sedated 01/16/25 ALKALOSIS, ABDOMEN NON DISTENDED, SOFT, DRAINAGE SEROUS, WOUND CLEAN AND WELL APPROXIMATED 01/17/25 improved, thrombocytopenia possibly made worse by Fluconazole,will DC, abdomen non distended, wound well approximated without infection, TATY drainage serous, CVP 6, good urine output. 01/18/25 abg reviewed, ,abdomen soft, non distended, TATY drainage clear serous, no bowel activity, febrile, urine output ok, continues with thrombocytopenia,pt and inr slightly elevated. prognosis grave. 01/20/25remains sedated on ventilator, abdomen soft, non distended, faint bowel sounds auscultated by nurse, wound clean and well approximated, TATY drainage clear serous. continues with thrombocytopenia, still behind on intravascular volume( BUN and Creatinine elevated), i would give more IV fluids and DC vancomycin. 01/25/25 afebrile, normotensive, wound clean and well approximated, TATY drainage serous, abdomen non distended, soft, gastrografin small bowel series shows non obstructed GI tract and no evidence of extravasation. It is OK to initiate enteric feedings. 01/29/25 16 DAYS POST OPERATIVELY TRHE TATY DRAINAGE WHICH HAD CONSISTENTLY BEEN SEROUS OR SERO SANGUINEOUS HAS BECOME "DIRTY" BROWNISH DISCOLORATION, HER WOUND IS CLEAN AND WELL APPROXIMATED AND HER ABDOMEN IS SOFT AND NON DISTENDED, CT SCAN SHOWS SO0ME FLUID AND ACCUMULATION OF FLUID AROUND THE SPLEEN, WILL REQUEST CT GUIDED ASPIRATION OF SAME, WILL ORDER IRRIGATION OF DRAINS. SHE SI AFEBRILE AND MAINTAINS NORMAL BLOOD PRESSURE, HER WBC IS NORMAL. 01/30/25 improved, awake, being weaned off vent. abdomen non distended, non tender, taty drainage clearing with irrigation 02/02/25clinically unchanged, gastrografin small bowel series reported and normal, no extravasation reported, will order a follow ujp KUB for tomorrow AM 02/03/25 PATIENT HAD A GASTROGRAFIN SMALL BOWEL SERIES AND A FOLLOW UP KUB X RAYS NEITHER ONE OF WHICH SHOW EXTRAVASATION OF CONTRAST OR EVIDENCE OF FREE CONTRAST IN THE PERITONEAL CAVITY. THERE IS HOWEVER VISCOUS, BROWNISH FLUID DRAINING VIA BOTH TATY DRAINS AND THROUGH INFRAUMBILICAL PORTION OF MIDLINE WOUND, I REMOVED THE RICHIE FROM THE 3 CM SECTION OF THE INFRAUMBILICAL WOUND AND EVACUATED ABOUT 30 CC OF THIS FLUID AND INSTRUCTED THE NURSE TO PLACE A STOMA APPLIANCE ON THIS OPENING. 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 TODAY HER WBC IS ELEVATED, ABDOMEN CONTINUES TO BE NON DISTENDED, SOFT, BUT SHE DOES HAVE SLIGHT TENDERNESS IN THE PERIUMBILICAL AREA. I WILL TREAT THIS EXPECTANTLY FORM THE TIME BEING IN THE HOPE THAT THIS IS A "CONTROLLED" FISTULA AND HOPEFUL WILL HEAL SPONTANEOUSLY WITH NPO AND NUTRITIONAL SUPPORT. WILL WATCH CLOSELY, AFTER A FEW DAYS WILL GET A FISTULOGRAM TO PIN POINT THE ENTERIC ORIGIN OF THE FISTULIZATION. CONTINUE NGT SUCTION AND DRAIN IRRIGATION ORDERED02/05/25 02/05/25 remains sedated and intubated?ventilated, abdomen non distended soft, wound vac in place. TATY drainage serosanguineous 02/08/25 EXTUBATED, GOOD INSPIRATORY EFFORT, BP NML WITHOUT PRESSOR SUPPORT, ABDOMEN SOFT, NON DISTENDED, APPROPRIATELY TENDER, LABS REVIEWED. NO CHANGES TODAY OTHER THAN ALLOW ICE CHIPS PO. WILL ORDER GASTROGRAFIN SMALL BOWEL FOLLOWTHROUGH FOR Friday02/09/25 awake cooperative, wound vac in place, abdomen soft, non distended, appropriately tender, TATY drainage brownish discoloration, will irrigate, her WBC is normal and she is afebrile and normotensive. gastrografin tomorrow 02/10/25 AWAKE,COMFORTABLE, DENIES PAIN, ABDOMEN NON DISTENDED APPROPRIATELY TENDER, WOUND CLEAN AND WELL APPROXIMATED, DRAINS BEING IRRIGATED, LABS OK, GOOD URINE OUTPUT. "SURGICALLY" STABLE 02/11/25 feels well, passing flatus. is hungry, abdomen soft non distended, drainage clearing with irrigation, will wait for Gastrografin small bowel series to be completed, if normal will start po clear liquids Plan discussed with: Patient, Other Dietary Evaluation Review Comments: Nutrition Recommendation: 1) TPN to meet at least 75% estimated needs within 7 days 2) Monitor NPO status, lab values, wt trend, I/O Expected Outcomes/Goals: To meet >75% estimated needs Lab values to improve Fu 2-3 days MELVA RAMESH MD Feb 11, 2025 09:04
[2025-02-11] MEDS: GASTROGRAFIN 120 ML SOL ONE (10:44)
[2025-02-11] MEDS: VANCOMYCIN 750MG KIT 100 ML IV ONE (12:39)
--- NOTE | 2025-02-11 13:54 | DVH ---
Procedure: XY SMALL BOWEL SERIES-W GASTROGRA Exam Date: 02/11/2025 10:50 AM Reason for study/Clinical History: STATUS POST RESECTION. FOLLOW UP CHECK FOR LEAKAGE Comparison Study: XY SMALL BOWEL SERIES-W GASTROGRA on DOS: 02/02/25, CT ABDOMEN WITHOUT CONTRAST on D OS: 01/31/25, XY SMALL BOWEL SERIES-W GASTROGRA on DOS: 01/24/25 Technique: Single contrast small bowel series performed. Findings: Initial strap cutting machine operator view of the abdomen and pelvis appears demonstrates no acute process. Contrast is identified within the colon by 30 min. This represents a normal small bowel transit time . Small bowel loops are normal in size. Normal mucosal pattern. No evidence of small bowel obstructi on, stricture, or mucosal abnormality. The terminal ileum is well visualized and is unremarkable. IMPRESSION: Normal small bowel series. END IMPRESSION:
--- NOTE | 2025-02-11 15:16 | DVHPNRES ---
Progress Note Date Seen: Feb 11, 2025 Resident Creating Document: GIGI FELIZ AMBROSE Has the PT tested + for MRSA If YES, has PT been informed?: No Medical Necessity Reason Pt with a Central, PICC or Fol: Yes The following are medically ne: Central Line, Leach Catheter Reason for leach catheter: Strict I&O Subjective Review of Systems Patient Is seen and examined at the bedside. Patient extubated on 02/08. Status post extubation, patient can maintain oxygen through nasal cannula. Alert awake and oriented, not have any active complaint. Objective vital signs Vital Sign Date Time Temp Pulse Resp B/P (MAP) Pulse Ox O2 Delivery O2 Flow Rate FiO2 02/11/25 14:12 95 24 92/68 02/11/25 14:00 99 Room Air* 0 21 02/11/25 08:00 98.2 98.2 Total Intake and Output 02/10/25 02/10/25 02/11/25 15:00 23:00 07:00 Intake Total 563 ml 328 ml 614 ml Output Total 730 ml 850 ml Balance 563 ml -402 ml -236 ml medications Current Medications Medications Dose Ordered Sig/Isaura Route Start Time Stop Time Status Last Admin Dose Admin Pantoprazole Sodium 40 mg DAILY IV 01/13/25 10:00 02/11/25 09:11 40 MG Cefazolin Sodium 50 ml @ 100 mls/hr Q8HR IV 01/13/25 14:00 UNV Vasopressin 20 units/Sodium Chloride 100 ml @ 9 mls/hr Q11H7M IV 01/13/25 18:45 UNV Potassium Chloride 100 ml @ 50 mls/hr Q2H IV 01/16/25 12:45 01/16/25 18:44 UNV Vancomycin HCl 100 ml @ 100 mls/hr DAILY@1200 IV 01/20/25 12:00 UNV Sodium Chloride 10 ml QSHIFT@10,22 IV 01/26/25 22:00 02/11/25 09:11 10 ML Acetaminophen 650 mg Q6HP PRN GT 01/30/25 16:00 Amino Acids 0 ml @ 0 mls/hr PER PHARMACY IV 01/31/25 16:00 Diagnostic Test (Pha) 1 strip Q6HR 01/31/25 18:00 02/11/25 12:00 1 STRIP Insulin Human Regular FOLLOW SLIDING SCALE Q6HR SC 01/31/25 18:00 02/11/25 12:00 2 UNITS Dextrose 50 ml UD IV 01/31/25 17:00 Vancomycin HCl 0 ml @ 0 mls/hr UD IV 02/03/25 18:30 Meropenem 50 ml @ 17 mls/hr Q12HR IV 02/03/25 22:00 02/11/25 09:10 17 MLS/HR Morphine Sulfate 2 mg Q4HPRN PRN IV 02/08/25 09:45 02/11/25 14:12 2 MG Clonidine HCl 0.1 mg Q7D TD 02/08/25 12:30 02/08/25 14:22 0.1 MG Labetalol HCl 10 mg Q4HP PRN IV 02/08/25 12:30 02/10/25 05:31 10 MG Fat Emulsion Intravenous 150 ml/Potassium Acetate 40 meq/ Potassium Phosphate 22 meq/ Magnesium Sulfate 8 meq/ Multivitamins 10 ml/Insulin Human Regular 10 units/ Amino Acids/ Dextrose/Purified Water 1,637.1 ml @ 68 mls/hr Q24H5M IV 02/10/25 22:00 02/11/25 21:59 02/10/25 21:55 68 MLS/HR Fat Emulsion Intravenous 100 ml/Potassium Phosphate 22 meq/ Magnesium Sulfate 8 meq/ Multivitamins 10 ml/Insulin Human Regular 12 units/ Amino Acids/ Dextrose/Purified Water 1,567.12 ml @ 66 mls/hr [id number] IV 02/11/25 22:00 02/12/25 21:59 Examination General Appearance: Alert, Oriented X3, Cooperative, No acute distress HEENT: Atraumatic, PERRLA, EOMI, Mucous membrane moist/pink Respiratory: Clear to auscultation, Normal air movement Cardiovascular: Regular rate, Normal S1, Normal S2, No murmurs, no chest wall tenderness Abdominal: Mild abdominal tenderness, with wound VAC at the midline, for CARMEN drain at 4 quadrant, draining brownish fluid Extremities: No clubbing, No cyanosis, No edema, Normal pulses, No tenderness/swelling Skin: No rashes, No breakdown, No significant lesion Neuro: Grossly intact Psych/Mental Status: Mental status NL, Mood NL laboratory and microbiology Laboratory Tests 02/11/25 05:10 Test 02/11/25 05:10 Range/Units Serum Glucose 173 H 74-106 mg/dL Microbiology Date/Time Source Procedure Growth Status 01/31/25 13:30 Aspirate Gram Stain - Final Complete 01/31/25 13:30 Aspirate Body Fluid Culture - Final Complete 01/29/25 14:00 Sputum Gram Stain - Final Complete 01/29/25 14:00 Respiratory Culture - Final Presumptive Zoe albicans Complete 01/29/25 10:40 Blood Blood Culture - Final NO GROWTH AFTER 5 DAYS OF INCUBATION. Complete 01/28/25 12:55 Voided Urine Urine Culture - Final Complete 01/13/25 17:10 Nose MRSA Screen - Final Complete Problem List/Assessment/Plan Problem List/Assessment/Plan This is a 80-year-old lady with past medical history of hypertension, AFib (on Eliquis), diabetes type 2, CKD, came to the hospital due to abdominal pain, and constipation. Admitted on 01/13/2025. Found to have peritonitis due to bowel perforation, and underwent emergent laparotomy with subsequent resection of perforated small bowel and enteroenterostomy. Due to abnormal CARMEN drainage, second exploratory laparotomy performed on 02/04 and found to have perforation near to previous perforation area, underwent resection of area with subsequent anastomosis of proximal jejunal loops. Extubated on 02/07. 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 PULMONARY: Acute hypoxic respiratory failure secondary to bilateral pleural effusion/pneumonia Chest x-ray demonstrated bilateral hazy opacities * Sputum culture from 01/29 shows presumptive Zoe albicans * Status post extubation, on nasal cannula * Plan: Physiotherapy GASTROINTESTINAL: Peritonitis due to Perforation of the small bowel, status post exploratory laparotomy Transaminitis secondary to shock Perisplenic abscess * Peritoneal fluid culture from 01/13 shows E coli and Klebsiella pneumoniae sensitive to meropenem (given for 11 days, stopped on 01/31) * CT scan on 01/31 shows, moderate sized fluid collection in the perisplenic region * IR consulted, put pigtail drain, and has drained 50 cc purulent fluid * Patient has brownish discharge of the drain * Small bowel series, normal study * Patient has leakage from surgical area and drainage * Second laparotomy, performed on 02/04, lysis of adhesions, evacuation of pelvic and abdominal infection, resection of proximal jejunum, ileostomy, and jejunostomy and put for CARMEN drains at 4 quadrants * Small bowel series on 02/11, normal study, per surgery okay to start clear liquid diet * Plan: Clear liquid diet, IV antibiotics GENITOURINARY: ISRRAEL likely due to shock/VMN, resolved * Monitoring ENDOCRINE: History of hypothyroidism Type 2 diabetes mellitus, hemoglobin A1c 8.2 * Few episodes of hypoglycemia * TSH is raised at 16.29, normal free T4 METABOLIC: Hypokalemia Hyperkalemia Hyponatremia, Nephrology recommended D5W at 75 mL/hour Severe metabolic protein malnutrition * Anion gap metabolic acidosis secondary to bowel ischemia leading to lactic acidosis HEME: Acute on chronic anemia secondary to hemodilution/post surgical 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 * 5 unit of PRBC, 2 pt of platelet, has been given INFECTIOUS DISEASE: Sepsis with septic shock secondary to perforation of the small bowel * Blood culture from 01/29 preliminary result shows Gram-positive rods (1/4 sets of blood culture) * Discontinued levofloxacin Flagyl on 02/03 * Plan: Continue on vancomycin and meropenem started on 02/03 MUSCULOSKELETAL: Rib fracture, due to fall DIET: Clear liquid diet DVT prophylax: Hold GI prophylaxis: Pantoprazole Bowel regimen: Code status: Full code LINES/DRAINS/ACCESS: ETT: Intubated on 01/14/25, extubated on 02/07 IV access: Rt upper thigh PICC placed on 01/26/2025 Drips: off from pressor and sedatives Leach catheter: Placed on 0 9 /0 5 CARMEN drainage: Four CARMEN drain in 4 quadrants of abdomen DISPOSITION: Downgraded to SHERRY Patient's status discussed with patient and patient's son at the bedside. Critical care time spent more than 63 minutes, including patient care, chart review, and updating the family. Excluding any procedures. Case discussed with Dr. Rodriguez Plan discussed with: Other My Orders My Orders Orders - GIGI FELIZ Procedure Category Date Status Time Vancomycin,Random LAB 02/12/25 Verified 04:00 Creatinine LAB 02/12/25 Verified 04:00 Dietary Evaluation Review Comments: Nutrition Recommendation: 1) TPN to meet at least 75% estimated needs within 7 days 2) Monitor NPO status, lab values, wt trend, I/O Expected Outcomes/Goals: To meet >75% estimated needs Lab values to improve Fu 2-3 days CC Plasma Assessment Blood Product Administration S: [id number] Date of Service: Feb 11, 2025 Billing Provider: ROCIO ENNIS MD Common Visit Codes: NOT BILLABLE GIGI FELIZ Feb 11, 2025 15:16 ROCIO ENNIS MD Feb 24, 2025 16:34
[2025-02-11] MEDS ORDERED: TPN PER PHARMACY IV NR (22:00)
[2025-02-11] MEDS: SODIUM CHLORIDE 0.9% 250 ML IV ONE (23:30)
[2025-02-12] VITALS (47 sets, daily range): BP systolic 71–144; BP diastolic 35–71; PULSE 89–107; RESP 16–25; TEMP 98.2–99.8; O2SAT 90–98
[2025-02-12] MEDS: SODIUM CHLORIDE 0.9% 250 ML IV ONE (00:45)
[2025-02-12] MEDS: NOREPINEPHRINE 8 MG/250ML KIT 250 ML IV SCH (02:09)
[2025-02-12 04:23] LABS: Hematocrit 27.8 % (36.0-46.0); Hemoglobin 9.1 g/dL (12.2-16.2); Mean Corpuscular Hemoglobin 29.1 pg (28.0-32.0); Mean Corpuscular Volume 89.5 fL (80.0-100.0); Nucleated Red Blood Cells % 0.0 %
[2025-02-12 04:40] LABS: Alanine Aminotransferase 38 U/L (7-40); Anion Gap 10 (5-15); BUN/Creatinine Ratio 62.1 (10.0-20.0); Carbon Dioxide 22 mmol/L (20-31); Magnesium 2.2 mg/dL (1.6-2.6); Potassium 4.6 mmol/L (3.5-5.1); Sodium 143 mmol/L (136-145)
[2025-02-12 04:46] LABS: Albumin 2.1 g/dL (3.2-4.8); Alkaline Phosphatase 325 U/L (46-116); Bilirubin, Total 2.6 mg/dL (0.2-1.0); Blood Urea Nitrogen 59 mg/dL (9-23); Calcium 8.1 mg/dL (8.7-10.4); Chloride 111 mmol/L (98-107); Glucose 50 mg/dL (74-106); Total Protein 5.3 g/dL (5.7-8.2)
--- NOTE | 2025-02-12 10:51 | DVHPN2 ---
Progress Note Date Seen: Feb 12, 2025 Has the PT tested + for MRSA If YES, has PT been informed?: No Medical Necessity Reason Pt with a Central, PICC or Fol: Yes The following are medically ne: Central Line, Leach Catheter Reason for leach catheter: Strict I&O Objective vital signs Vital Sign Date Time Temp Pulse Resp B/P (MAP) Pulse Ox O2 Delivery O2 Flow Rate FiO2 02/12/25 10:00 92 02/12/25 10:00 20 97 Room Air* 0 21 02/12/25 09:09 118/63 02/12/25 04:00 98.2 98.2 Total Intake and Output 02/11/25 02/11/25 02/12/25 14:59 22:59 06:59 Intake Total 695 ml 348 ml 261.25 ml Output Total 1230 ml 1230 ml Balance 695 ml -882 ml -968.75 ml medications Current Medications Medications Dose Ordered Sig/Isaura Route Start Time Stop Time Status Last Admin Dose Admin Pantoprazole Sodium 40 mg DAILY IV 01/13/25 10:00 02/12/25 08:32 40 MG Cefazolin Sodium 50 ml @ 100 mls/hr Q8HR IV 01/13/25 14:00 UNV Vasopressin 20 units/Sodium Chloride 100 ml @ 9 mls/hr Q11H7M IV 01/13/25 18:45 UNV Potassium Chloride 100 ml @ 50 mls/hr Q2H IV 01/16/25 12:45 01/16/25 18:44 UNV Vancomycin HCl 100 ml @ 100 mls/hr DAILY@1200 IV 01/20/25 12:00 UNV Sodium Chloride 10 ml QSHIFT@10,22 IV 01/26/25 22:00 02/12/25 08:32 10 ML Acetaminophen 650 mg Q6HP PRN GT 01/30/25 16:00 Diagnostic Test (Pha) 1 strip Q6HR 01/31/25 18:00 02/12/25 06:00 1 STRIP Insulin Human Regular FOLLOW SLIDING SCALE Q6HR SC 01/31/25 18:00 02/11/25 22:38 4 UNITS Dextrose 50 ml UD IV 01/31/25 17:00 Vancomycin HCl 0 ml @ 0 mls/hr UD IV 02/03/25 18:30 Meropenem 50 ml @ 17 mls/hr Q12HR IV 02/03/25 22:00 02/12/25 08:32 17 MLS/HR Morphine Sulfate 2 mg Q4HPRN PRN IV 02/08/25 09:45 02/12/25 08:39 2 MG Clonidine HCl 0.1 mg Q7D TD 02/08/25 12:30 02/08/25 14:22 0.1 MG Labetalol HCl 10 mg Q4HP PRN IV 02/08/25 12:30 02/11/25 20:46 10 MG Norepinephrine Bitartrate 250 ml @ 3.75 mls/hr Q24H IV 02/12/25 01:30 02/12/25 02:09 3.75 MLS/HR laboratory and microbiology Laboratory Tests 02/12/25 02:40 Test 02/12/25 02:40 Range/Units Serum Glucose 50 L 74-106 mg/dL Problem List/Assessment/Plan Problem List/Assessment/Plan 01/14/25 afebrile, low dose BP support, received transfusion, I believe her decreased hematocrit is due to hemodilution. abdomen non distended, soft, wound clean and well approximated, drainage serous . remains intubated and sedated 01/16/25 ALKALOSIS, ABDOMEN NON DISTENDED, SOFT, DRAINAGE SEROUS, WOUND CLEAN AND WELL APPROXIMATED 01/17/25 improved, thrombocytopenia possibly made worse by Fluconazole,will DC, abdomen non distended, wound well approximated without infection, TATY drainage serous, CVP 6, good urine output. 01/18/25 abg reviewed, ,abdomen soft, non distended, TATY drainage clear serous, no bowel activity, febrile, urine output ok, continues with thrombocytopenia,pt and inr slightly elevated. prognosis grave. 01/20/25remains sedated on ventilator, abdomen soft, non distended, faint bowel sounds auscultated by nurse, wound clean and well approximated, TATY drainage clear serous. continues with thrombocytopenia, still behind on intravascular volume( BUN and Creatinine elevated), i would give more IV fluids and DC vancomycin. 01/25/25 afebrile, normotensive, wound clean and well approximated, TATY drainage serous, abdomen non distended, soft, gastrografin small bowel series shows non obstructed GI tract and no evidence of extravasation. It is OK to initiate enteric feedings. 01/29/25 16 DAYS POST OPERATIVELY TRHE TATY DRAINAGE WHICH HAD CONSISTENTLY BEEN SEROUS OR SERO SANGUINEOUS HAS BECOME "DIRTY" BROWNISH DISCOLORATION, HER WOUND IS CLEAN AND WELL APPROXIMATED AND HER ABDOMEN IS SOFT AND NON DISTENDED, CT SCAN SHOWS SO0ME FLUID AND ACCUMULATION OF FLUID AROUND THE SPLEEN, WILL REQUEST CT GUIDED ASPIRATION OF SAME, WILL ORDER IRRIGATION OF DRAINS. SHE SI AFEBRILE AND MAINTAINS NORMAL BLOOD PRESSURE, HER WBC IS NORMAL. 01/30/25 improved, awake, being weaned off vent. abdomen non distended, non tender, taty drainage clearing with irrigation 02/02/25clinically unchanged, gastrografin small bowel series reported and normal, no extravasation reported, will order a follow ujp KUB for tomorrow AM 02/03/25 PATIENT HAD A GASTROGRAFIN SMALL BOWEL SERIES AND A FOLLOW UP KUB X RAYS NEITHER ONE OF WHICH SHOW EXTRAVASATION OF CONTRAST OR EVIDENCE OF FREE CONTRAST IN THE PERITONEAL CAVITY. THERE IS HOWEVER VISCOUS, BROWNISH FLUID DRAINING VIA BOTH TATY DRAINS AND THROUGH INFRAUMBILICAL PORTION OF MIDLINE WOUND, I REMOVED THE RICHIE FROM THE 3 CM SECTION OF THE INFRAUMBILICAL WOUND AND EVACUATED ABOUT 30 CC OF THIS FLUID AND INSTRUCTED THE NURSE TO PLACE A STOMA APPLIANCE ON THIS OPENING. 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 TODAY HER WBC IS ELEVATED, ABDOMEN CONTINUES TO BE NON DISTENDED, SOFT, BUT SHE DOES HAVE SLIGHT TENDERNESS IN THE PERIUMBILICAL AREA. I WILL TREAT THIS EXPECTANTLY FORM THE TIME BEING IN THE HOPE THAT THIS IS A "CONTROLLED" FISTULA AND HOPEFUL WILL HEAL SPONTANEOUSLY WITH NPO AND NUTRITIONAL SUPPORT. WILL WATCH CLOSELY, AFTER A FEW DAYS WILL GET A FISTULOGRAM TO PIN POINT THE ENTERIC ORIGIN OF THE FISTULIZATION. CONTINUE NGT SUCTION AND DRAIN IRRIGATION ORDERED02/05/25 02/05/25 remains sedated and intubated?ventilated, abdomen non distended soft, wound vac in place. TATY drainage serosanguineous 02/08/25 EXTUBATED, GOOD INSPIRATORY EFFORT, BP NML WITHOUT PRESSOR SUPPORT, ABDOMEN SOFT, NON DISTENDED, APPROPRIATELY TENDER, LABS REVIEWED. NO CHANGES TODAY OTHER THAN ALLOW ICE CHIPS PO. WILL ORDER GASTROGRAFIN SMALL BOWEL FOLLOWTHROUGH FOR Friday02/09/25 awake cooperative, wound vac in place, abdomen soft, non distended, appropriately tender, TATY drainage brownish discoloration, will irrigate, her WBC is normal and she is afebrile and normotensive. gastrografin tomorrow 02/10/25 AWAKE,COMFORTABLE, DENIES PAIN, ABDOMEN NON DISTENDED APPROPRIATELY TENDER, WOUND CLEAN AND WELL APPROXIMATED, DRAINS BEING IRRIGATED, LABS OK, GOOD URINE OUTPUT. "SURGICALLY" STABLE 02/11/25 feels well, passing flatus. is hungry, abdomen soft non distended, drainage clearing with irrigation, will wait for Gastrografin small bowel series to be completed, if normal will start po clear liquids 02/12/25 no nausea, change in TATY drainage colort, appears to contaIN, BILE, WILL DC po CLEAR LIQUIDS, CONTINUE ICE CGHIPS, SEND DRAin fluid for amylase and bilirubin, Plan discussed with: Patient, Son Dietary Evaluation Review Comments: Nutrition Recommendation: 1) TPN to meet at least 75% estimated needs within 7 days 2) Monitor NPO status, lab values, wt trend, I/O Expected Outcomes/Goals: To meet >75% estimated needs Lab values to improve Fu 2-3 days MELVA RAMESH MD Feb 12, 2025 10:51
--- NOTE | 2025-02-12 17:06 | DVHPN2 ---
Subjective I am assuming the care of the patient from today onwards who was under the care of hospitalist team. Detailed sign out obtained. Patient is currently extubated on room air. Reviewed: Care Plan, H&P Changes from previous H/P or p: No Changes Gastrointestinal: Abdominal Pain Objective Vitals Vital Signs Date Time Temp Pulse Resp B/P (MAP) Pulse Ox O2 Delivery O2 Flow Rate FiO2 02/12/25 16:00 101 18 138/64 (88) 97 02/12/25 16:00 Room Air* 0 21 02/12/25 12:00 98.2 98.2 Intake/Output Intake and Output 02/12/25 07:00 Intake Total 1236.25 ml Output Total 2460 ml Balance -1223.75 ml Intake Oral 480 ml IV Total 756.25 ml Output Urine Total 1075 ml Gastric Drainage Total 60 ml Drainage Total 1300 ml Other 25 ml Exam HEENT pupils are reactive Neck is supple CV is S1-S2 regular rate and rhythm Respiratory diminished breath sounds bases GI positive bowel sound Extremity no edema 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 moist/pink Neck: Supple Lungs: Clear to auscultation, Normal air movement, Other (Ventilation support) Cardiovascular: Regular rate, Normal S1, Normal S2, No murmurs, Gallops, Rubs Abdomen: Normal bowel sounds, Soft, No tenderness Medications Current Medications Medications Dose Ordered Sig/Isaura Route Start Time Stop Time Status Last Admin Dose Admin Cefazolin Sodium 50 ml @ 100 mls/hr Q8HR IV 01/13/25 14:00 UNV Vasopressin 20 units/Sodium Chloride 100 ml @ 9 mls/hr Q11H7M IV 01/13/25 18:45 UNV Potassium Chloride 100 ml @ 50 mls/hr Q2H IV 01/16/25 12:45 01/16/25 18:44 UNV Vancomycin HCl 100 ml @ 100 mls/hr DAILY@1200 IV 01/20/25 12:00 UNV Sodium Chloride 10 ml QSHIFT@22 IV 01/26/25 22:00 02/12/25 08:32 10 ML Acetaminophen 650 mg Q6HP PRN GT 01/30/25 16:00 Diagnostic Test (Pha) 1 strip Q6HR 01/31/25 18:00 02/12/25 12:22 1 STRIP Insulin Human Regular FOLLOW SLIDING SCALE Q6HR SC 01/31/25 18:00 02/11/25 22:38 4 UNITS Dextrose 50 ml UD IV 01/31/25 17:00 Vancomycin HCl 0 ml @ 0 mls/hr UD IV 02/03/25 18:30 Meropenem 50 ml @ 17 mls/hr Q12HR IV 02/03/25 22:00 02/12/25 08:32 17 MLS/HR Morphine Sulfate 2 mg Q4HPRN PRN IV 02/08/25 09:45 02/12/25 13:09 2 MG Clonidine HCl 0.1 mg Q7D TD 02/08/25 12:30 02/08/25 14:22 0.1 MG Labetalol HCl 10 mg Q4HP PRN IV 02/08/25 12:30 02/11/25 20:46 10 MG Norepinephrine Bitartrate 250 ml @ 3.75 mls/hr Q24H IV 02/12/25 01:30 02/12/25 02:09 3.75 MLS/HR Laboratory Results Laboratory Tests 02/12/25 02:40 Chemistry Test 02/12/25 02:40 Albumin 2.1 g/dL (3.2-4.8) L Calcium Level 8.1 mg/dL (8.7-10.4) L Magnesium Level 2.2 mg/dL (1.6-2.6) Phosphorus Level 3.2 mg/dL (2.4-5.1) Total Protein 5.3 g/dL (5.7-8.2) L LFT Test 02/12/25 02:40 Alanine Aminotransferase (ALT) 38 U/L (7-40) Alkaline Phosphatase 325 U/L (46-116) H Aspartate Amino Transferase (AST) 109 U/L (13-40) H Total Bilirubin 2.6 mg/dL (0.2-1.0) H Urinalysis Test 01/14/25 02:00 Urine Color Yellow (Yellow) Urine Clarity Turbid (Clear) H Urine pH 6.0 (5.0-9.0) Urine Specific [place] 1.016 (1.001-1.035) Urine Protein 1+ (Negative) H Urine Ketones Trace (Negative) Urine Blood 1+ /uL (Negative) H Urine Nitrite Negative (Negative) Urine Bilirubin Negative (Negative) Urine Urobilinogen Normal mg/dL (Negative) Urine Leukocyte Esterase Negative /uL (Negative) Urine RBC 10 /hpf (0 - 4) Urine Microscopic WBC 2 /HPF (0-5) Urine Squamous Epithelial Cells Few /hpf (<5) Urine Amorphous Crystals Few /hpf (None Seen) Urine Bacteria None seen /hpf (None Seen) Urine Creatinine 34.09 mg/dL (30.0-125.0) Urine Protein/Creatinine Ratio 3.85 Urine Sodium 76 mmol/L (40-220) Urine Glucose Normal mg/dL (Normal) Urine Total Protein 131.1 mg/dL (1-14) H Microbiology Microbiology Date/Time Source Procedure Growth Status 01/31/25 13:30 Aspirate Gram Stain - Final Complete 01/31/25 13:30 Aspirate Body Fluid Culture - Final Complete 01/29/25 14:00 Sputum Gram Stain - Final Complete 01/29/25 14:00 Respiratory Culture - Final Presumptive Zoe albicans Complete 01/29/25 10:40 Blood Blood Culture - Final NO GROWTH AFTER 5 DAYS OF INCUBATION. 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 Patient's hospital course was eventful for thrombocytopenia requiring platelet transfusion. 1. Acute hypoxic respiratory failure status post intubation on01/14 status post extubation on02/07. , currently on room air 2. Septic shock secondary to perforated bowel with a peritonitis currently resolved 3. Peritonitis with a small bowel perforation status post exploratory laparotomy with the lysis of adhesions, resection of small bowel and lavage and entero enterostomy on01/13, status post revised exploratory laparotomy with the lysis of adhesions and evacuation of pelvic and abdominal infection with the resection of proximal jejunum, ileoileostomy and jejunojejunostomy secondary to do enterocutaneous fistula on02/04. 4. Perisplenic abscess status post CT-guided needle placement by IR on01/31 5. Acute kidney injury suspected secondary to vasomotor nephropathy, improving 6. Paroxysmal AFib 7. Chronic diastolic heart failure with a preserved ejection fraction 8. Acute anemia status post packed RBC. -clear liquid diet as tolerated, IV antibiotics, follow up General surgery and Pulmonary recommendations. -patient's and patient's grandson updated at bedside. Patient's SHERRY status. Plan discussed with: Patient, Other (Patient's grandson and bedside RN.) Date of Service: Feb 12, 2025 Billing Provider: HALEIGH HARDY MD Common Visit Codes: [id number] INP/OBS CARE(HIGH) HALEIGH HARDY MD Feb 12, 2025 17:06
[2025-02-12] MEDS: DEXTROSE (50%) 50ML SYRG IV SCH (17:42)
--- NOTE | 2025-02-12 18:35 | DVHPN2 ---
Progress Note - Dictate Date Seen: Feb 12, 2025 Has the PT tested + for MRSA If YES, has PT been informed?: No Medical Necessity Reason Pt with a Central, PICC or Fol: Yes The following are medically ne: Central Line, Leach Catheter Reason for leach catheter: Strict I&O vital signs Vital Sign Date Time Temp Pulse Resp B/P (MAP) Pulse Ox O2 Delivery O2 Flow Rate FiO2 02/12/25 18:06 97 20 121/71 02/12/25 18:00 97 Room Air* 0 21 02/12/25 12:00 98.2 98.2 Total Intake and Output 02/11/25 02/11/25 02/12/25 15:00 23:00 07:00 Intake Total 695 ml 280 ml 261.25 ml Output Total 1230 ml 1230 ml Balance 695 ml -950 ml -968.75 ml medications Current Medications Medications Dose Ordered Sig/Isaura Route Start Time Stop Time Status Last Admin Dose Admin Cefazolin Sodium 50 ml @ 100 mls/hr Q8HR IV 01/13/25 14:00 UNV Vasopressin 20 units/Sodium Chloride 100 ml @ 9 mls/hr Q11H7M IV 01/13/25 18:45 UNV Potassium Chloride 100 ml @ 50 mls/hr Q2H IV 01/16/25 12:45 01/16/25 18:44 UNV Vancomycin HCl 100 ml @ 100 mls/hr DAILY@1200 IV 01/20/25 12:00 UNV Sodium Chloride 10 ml QSHIFT@10,22 IV 01/26/25 22:00 02/12/25 08:32 10 ML Acetaminophen 650 mg Q6HP PRN GT 01/30/25 16:00 Diagnostic Test (Pha) 1 strip Q6HR 01/31/25 18:00 02/12/25 18:19 1 STRIP Insulin Human Regular FOLLOW SLIDING SCALE Q6HR SC 01/31/25 18:00 02/11/25 22:38 4 UNITS Dextrose 50 ml UD IV 01/31/25 17:00 02/12/25 17:42 50 ML Vancomycin HCl 0 ml @ 0 mls/hr UD IV 02/03/25 18:30 Meropenem 50 ml @ 17 mls/hr Q12HR IV 02/03/25 22:00 02/12/25 08:32 17 MLS/HR Morphine Sulfate 2 mg Q4HPRN PRN IV 02/08/25 09:45 02/12/25 17:36 2 MG Clonidine HCl 0.1 mg Q7D TD 02/08/25 12:30 02/08/25 14:22 0.1 MG Labetalol HCl 10 mg Q4HP PRN IV 02/08/25 12:30 02/11/25 20:46 10 MG Norepinephrine Bitartrate 250 ml @ 3.75 mls/hr Q24H IV 02/12/25 01:30 02/12/25 02:09 3.75 MLS/HR laboratory and microbiology Laboratory Tests 02/12/25 02:40 Test 02/12/25 02:40 Range/Units Serum Glucose 50 L 74-106 mg/dL Assessment/Plan Covering for Dr. Reed [employer] Distribution Checker rounds Impression Acute hypoxemic respiratory failure Bowel perforation S/p resection Sepsis ISRRAEL Patient seen and examined in ICU post-op care Events s/p extubation on minimal 02 bowel series normal pattern labs reviewed CXR's reviewed Management suppl 02 Continue antibiotics F/u cultures Bronchodilators Monitor renal function Monitor electrolytes Supplement as needed Monitor hemoglobin nutrition/TPN DVT prophylaxis ok to d/grade from pulm standpoint Critical care time 35 minutes Dietary Evaluation Review Comments: Nutrition Recommendation: 1) TPN to meet at least 75% estimated needs within 7 days 2) Monitor NPO status, lab values, wt trend, I/O Expected Outcomes/Goals: To meet >75% estimated needs Lab values to improve Fu 2-3 days Plan discussed with: Patient CC Plasma Assessment Blood Product Administration S: [id number] ROCIO ENNIS MD Feb 12, 2025 18:35
[2025-02-12] MEDS: D5W 5% 1,000 ML IV SCH (19:35)
[2025-02-13] VITALS (24 sets, daily range): BP systolic 108–146; BP diastolic 47–80; PULSE 80–97; RESP 12–22; TEMP 97.8–98.3; O2SAT 90–100
[2025-02-13 04:25] LABS: Hematocrit 29.4 % (36.0-46.0); Hemoglobin 9.6 g/dL (12.2-16.2); Mean Corpuscular Hemoglobin 29.0 pg (28.0-32.0); Mean Corpuscular Volume 89.1 fL (80.0-100.0); Nucleated Red Blood Cells % 0.1 %
[2025-02-13 04:43] LABS: Alanine Aminotransferase 37 U/L (7-40); Anion Gap 9 (5-15); BUN/Creatinine Ratio 50.0 (10.0-20.0); Carbon Dioxide 22 mmol/L (20-31); Glucose 92 mg/dL (74-106); Potassium 4.6 mmol/L (3.5-5.1); Sodium 141 mmol/L (136-145); Total Protein 5.9 g/dL (5.7-8.2)
[2025-02-13 04:50] LABS: Albumin 2.3 g/dL (3.2-4.8); Alkaline Phosphatase 343 U/L (46-116); Bilirubin, Total 2.7 mg/dL (0.2-1.0); Blood Urea Nitrogen 46 mg/dL (9-23); Calcium 8.3 mg/dL (8.7-10.4); Chloride 110 mmol/L (98-107)
[2025-02-13] MEDS ORDERED: TPN PER PHARMACY 0 ML IV SCH (10:45)
--- NOTE | 2025-02-13 11:06 | DVHPN2 ---
Progress Note Date Seen: Feb 13, 2025 Has the PT tested + for MRSA If YES, has PT been informed?: No Medical Necessity Reason Pt with a Central, PICC or Fol: Yes The following are medically ne: Central Line, Leach Catheter Reason for leach catheter: Strict I&O Objective vital signs Vital Sign Date Time Temp Pulse Resp B/P (MAP) Pulse Ox O2 Delivery O2 Flow Rate FiO2 02/13/25 06:00 86 02/13/25 06:00 20 100 Room Air* 0 21 02/13/25 06:00 118/56 (76) 02/13/25 03:00 97.8 97.8 Total Intake and Output 02/12/25 02/12/25 02/13/25 15:00 23:00 07:00 Intake Total 470 ml 577 ml 524 ml Output Total 1195 ml 860 ml Balance 470 ml -618 ml -336 ml medications Current Medications Medications Dose Ordered Sig/Isaura Route Start Time Stop Time Status Last Admin Dose Admin Cefazolin Sodium 50 ml @ 100 mls/hr Q8HR IV 01/13/25 14:00 UNV Vasopressin 20 units/Sodium Chloride 100 ml @ 9 mls/hr Q11H7M IV 01/13/25 18:45 UNV Potassium Chloride 100 ml @ 50 mls/hr Q2H IV 01/16/25 12:45 01/16/25 18:44 UNV Vancomycin HCl 100 ml @ 100 mls/hr DAILY@1200 IV 01/20/25 12:00 UNV Sodium Chloride 10 ml QSHIFT@10,22 IV 01/26/25 22:00 02/13/25 09:26 10 ML Acetaminophen 650 mg Q6HP PRN GT 01/30/25 16:00 Diagnostic Test (Pha) 1 strip Q6HR 01/31/25 18:00 02/13/25 05:55 1 STRIP Insulin Human Regular FOLLOW SLIDING SCALE Q6HR SC 01/31/25 18:00 02/11/25 22:38 4 UNITS Dextrose 50 ml UD IV 01/31/25 17:00 02/12/25 17:42 50 ML Vancomycin HCl 0 ml @ 0 mls/hr UD IV 02/03/25 18:30 Meropenem 50 ml @ 17 mls/hr Q12HR IV 02/03/25 22:00 02/13/25 09:21 17 MLS/HR Morphine Sulfate 2 mg Q4HPRN PRN IV 02/08/25 09:45 02/12/25 17:36 2 MG Clonidine HCl 0.1 mg Q7D TD 02/08/25 12:30 02/08/25 14:22 0.1 MG Labetalol HCl 10 mg Q4HP PRN IV 02/08/25 12:30 02/11/25 20:46 10 MG Norepinephrine Bitartrate 250 ml @ 3.75 mls/hr Q24H IV 02/12/25 01:30 02/12/25 02:09 3.75 MLS/HR Dextrose 1,000 ml @ 70 mls/hr [id number] IV 02/12/25 18:45 02/13/25 09:21 70 MLS/HR Amino Acids 0 ml @ 0 mls/hr PER PHARMACY IV 02/13/25 10:45 UNV laboratory and microbiology Laboratory Tests 02/13/25 04:00 Test 02/13/25 04:00 Range/Units Serum Glucose 92 74-106 mg/dL Problem List/Assessment/Plan Problem List/Assessment/Plan 01/14/25 afebrile, low dose BP support, received transfusion, I believe her decreased hematocrit is due to hemodilution. abdomen non distended, soft, wound clean and well approximated, drainage serous . remains intubated and sedated 01/16/25 ALKALOSIS, ABDOMEN NON DISTENDED, SOFT, DRAINAGE SEROUS, WOUND CLEAN AND WELL APPROXIMATED 01/17/25 improved, thrombocytopenia possibly made worse by Fluconazole,will DC, abdomen non distended, wound well approximated without infection, TATY drainage serous, CVP 6, good urine output. 01/18/25 abg reviewed, ,abdomen soft, non distended, TATY drainage clear serous, no bowel activity, febrile, urine output ok, continues with thrombocytopenia,pt and inr slightly elevated. prognosis grave. 01/20/25remains sedated on ventilator, abdomen soft, non distended, faint bowel sounds auscultated by nurse, wound clean and well approximated, TATY drainage clear serous. continues with thrombocytopenia, still behind on intravascular volume( BUN and Creatinine elevated), i would give more IV fluids and DC vancomycin. 01/25/25 afebrile, normotensive, wound clean and well approximated, TATY drainage serous, abdomen non distended, soft, gastrografin small bowel series shows non obstructed GI tract and no evidence of extravasation. It is OK to initiate enteric feedings. 01/29/25 16 DAYS POST OPERATIVELY TRHE TATY DRAINAGE WHICH HAD CONSISTENTLY BEEN SEROUS OR SERO SANGUINEOUS HAS BECOME "DIRTY" BROWNISH DISCOLORATION, HER WOUND IS CLEAN AND WELL APPROXIMATED AND HER ABDOMEN IS SOFT AND NON DISTENDED, CT SCAN SHOWS SO0ME FLUID AND ACCUMULATION OF FLUID AROUND THE SPLEEN, WILL REQUEST CT GUIDED ASPIRATION OF SAME, WILL ORDER IRRIGATION OF DRAINS. SHE SI AFEBRILE AND MAINTAINS NORMAL BLOOD PRESSURE, HER WBC IS NORMAL. 01/30/25 improved, awake, being weaned off vent. abdomen non distended, non tender, taty drainage clearing with irrigation 02/02/25clinically unchanged, gastrografin small bowel series reported and normal, no extravasation reported, will order a follow ujp KUB for tomorrow AM 02/03/25 PATIENT HAD A GASTROGRAFIN SMALL BOWEL SERIES AND A FOLLOW UP KUB X RAYS NEITHER ONE OF WHICH SHOW EXTRAVASATION OF CONTRAST OR EVIDENCE OF FREE CONTRAST IN THE PERITONEAL CAVITY. THERE IS HOWEVER VISCOUS, BROWNISH FLUID DRAINING VIA BOTH TATY DRAINS AND THROUGH INFRAUMBILICAL PORTION OF MIDLINE WOUND, I REMOVED THE RICHIE FROM THE 3 CM SECTION OF THE INFRAUMBILICAL WOUND AND EVACUATED ABOUT 30 CC OF THIS FLUID AND INSTRUCTED THE NURSE TO PLACE A STOMA APPLIANCE ON THIS OPENING. 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 TODAY HER WBC IS ELEVATED, ABDOMEN CONTINUES TO BE NON DISTENDED, SOFT, BUT SHE DOES HAVE SLIGHT TENDERNESS IN THE PERIUMBILICAL AREA. I WILL TREAT THIS EXPECTANTLY FORM THE TIME BEING IN THE HOPE THAT THIS IS A "CONTROLLED" FISTULA AND HOPEFUL WILL HEAL SPONTANEOUSLY WITH NPO AND NUTRITIONAL SUPPORT. WILL WATCH CLOSELY, AFTER A FEW DAYS WILL GET A FISTULOGRAM TO PIN POINT THE ENTERIC ORIGIN OF THE FISTULIZATION. CONTINUE NGT SUCTION AND DRAIN IRRIGATION ORDERED02/05/25 02/05/25 remains sedated and intubated?ventilated, abdomen non distended soft, wound vac in place. TATY drainage serosanguineous 02/08/25 EXTUBATED, GOOD INSPIRATORY EFFORT, BP NML WITHOUT PRESSOR SUPPORT, ABDOMEN SOFT, NON DISTENDED, APPROPRIATELY TENDER, LABS REVIEWED. NO CHANGES TODAY OTHER THAN ALLOW ICE CHIPS PO. WILL ORDER GASTROGRAFIN SMALL BOWEL FOLLOWTHROUGH FOR Friday02/09/25 awake cooperative, wound vac in place, abdomen soft, non distended, appropriately tender, TATY drainage brownish discoloration, will irrigate, her WBC is normal and she is afebrile and normotensive. gastrografin tomorrow 02/10/25 AWAKE,COMFORTABLE, DENIES PAIN, ABDOMEN NON DISTENDED APPROPRIATELY TENDER, WOUND CLEAN AND WELL APPROXIMATED, DRAINS BEING IRRIGATED, LABS OK, GOOD URINE OUTPUT. "SURGICALLY" STABLE 02/11/25 feels well, passing flatus. is hungry, abdomen soft non distended, drainage clearing with irrigation, will wait for Gastrografin small bowel series to be completed, if normal will start po clear liquids 02/12/25 no nausea, change in TATY drainage colort, appears to contaIN, BILE, WILL DC po CLEAR LIQUIDS, CONTINUE ICE CGHIPS, SEND DRAin fluid for amylase and bilirubin, 02/13/25 states she feels well, abdomen non tender, non distended, wound clean and well approximated. drainage slightly clearer, keep npo for now, needs to resume TPN Plan discussed with: Patient, Other Dietary Evaluation Review Comments: Nutrition Recommendation: 1) TPN to meet at least 75% estimated needs within 7 days 2) Monitor NPO status, lab values, wt trend, I/O Expected Outcomes/Goals: To meet >75% estimated needs Lab values to improve Fu 2-3 days MELVA RAMESH MD Feb 13, 2025 11:06
--- NOTE | 2025-02-13 11:09 | DVHPN2 ---
Subjective Patient was on clear liquid diet had abnormal CARMEN drainage, surgeon evaluated the patient and change back to NPO except ice chips, TPN resumed. Reviewed: Care Plan, H&P Changes from previous H/P or p: No Changes Gastrointestinal: Abdominal Pain Objective Vitals Vital Signs Date Time Temp Pulse Resp B/P (MAP) Pulse Ox O2 Delivery O2 Flow Rate FiO2 02/13/25 06:00 86 02/13/25 06:00 20 100 Room Air* 0 21 02/13/25 06:00 118/56 (76) 02/13/25 03:00 97.8 97.8 Intake/Output Intake and Output 02/13/25 07:00 Intake Total 1571 ml Output Total 2055 ml Balance -484 ml Intake Oral 700 ml IV Total 871 ml Output Urine Total 1300 ml Gastric Drainage Total 0 ml Drainage Total 755 ml Exam HEENT pupils are reactive Neck is supple CV is S1-S2 regular rate and rhythm Respiratory diminished breath sounds bases GI positive bowel sound Extremity no edema COLORER no motor deficit General Appearance: Other (Intubated, on vent, unable to exam) HEENT: Atraumatic, Mucous membr. moist/pink Neck: Supple Lungs: Clear to auscultation, Normal air movement, Other (Ventilation support) Cardiovascular: Regular rate, Normal S1, Normal S2, No murmurs, Gallops, Rubs Abdomen: Normal bowel sounds, Soft, No tenderness Medications Current Medications Medications Dose Ordered Sig/Isaura Route Start Time Stop Time Status Last Admin Dose Admin Cefazolin Sodium 50 ml @ 100 mls/hr Q8HR IV 01/13/25 14:00 UNV Vasopressin 20 units/Sodium Chloride 100 ml @ 9 mls/hr Q11H7M IV 01/13/25 18:45 UNV Potassium Chloride 100 ml @ 50 mls/hr Q2H IV 01/16/25 12:45 01/16/25 18:44 UNV Vancomycin HCl 100 ml @ 100 mls/hr DAILY@1200 IV 01/20/25 12:00 UNV Sodium Chloride 10 ml QSHIFT@22 IV 01/26/25 22:00 02/13/25 09:26 10 ML Acetaminophen 650 mg Q6HP PRN GT 01/30/25 16:00 Diagnostic Test (Pha) 1 strip Q6HR 01/31/25 18:00 02/13/25 05:55 1 STRIP Insulin Human Regular FOLLOW SLIDING SCALE Q6HR SC 01/31/25 18:00 02/11/25 22:38 4 UNITS Dextrose 50 ml UD IV 01/31/25 17:00 02/12/25 17:42 50 ML Vancomycin HCl 0 ml @ 0 mls/hr UD IV 02/03/25 18:30 Meropenem 50 ml @ 17 mls/hr Q12HR IV 02/03/25 22:00 02/13/25 09:21 17 MLS/HR Morphine Sulfate 2 mg Q4HPRN PRN IV 02/08/25 09:45 02/12/25 17:36 2 MG Clonidine HCl 0.1 mg Q7D TD 02/08/25 12:30 02/08/25 14:22 0.1 MG Labetalol HCl 10 mg Q4HP PRN IV 02/08/25 12:30 02/11/25 20:46 10 MG Norepinephrine Bitartrate 250 ml @ 3.75 mls/hr Q24H IV 02/12/25 01:30 02/12/25 02:09 3.75 MLS/HR Dextrose 1,000 ml @ 70 mls/hr [id number] IV 02/12/25 18:45 02/13/25 09:21 70 MLS/HR Amino Acids 0 ml @ 0 mls/hr PER PHARMACY IV 02/13/25 10:45 UNV Laboratory Results Laboratory Tests 02/13/25 04:00 Chemistry Test 02/13/25 04:00 Albumin 2.3 g/dL (3.2-4.8) L Calcium Level 8.3 mg/dL (8.7-10.4) L Total Protein 5.9 g/dL (5.7-8.2) LFT Test 02/13/25 04:00 Alanine Aminotransferase (ALT) 37 U/L (7-40) Alkaline Phosphatase 343 U/L (46-116) H Aspartate Amino Transferase (AST) 82 U/L (13-40) H Total Bilirubin 2.7 mg/dL (0.2-1.0) H Urinalysis Test 01/14/25 02:00 Urine Color Yellow (Yellow) Urine Clarity Turbid (Clear) H Urine pH 6.0 (5.0-9.0) Urine Specific [place] 1.016 (1.001-1.035) Urine Protein 1+ (Negative) H Urine Ketones Trace (Negative) Urine Blood 1+ /uL (Negative) H Urine Nitrite Negative (Negative) Urine Bilirubin Negative (Negative) Urine Urobilinogen Normal mg/dL (Negative) Urine Leukocyte Esterase Negative /uL (Negative) Urine RBC 10 /hpf (0 - 4) Urine Microscopic WBC 2 /HPF (0-5) Urine Squamous Epithelial Cells Few /hpf (<5) Urine Amorphous Crystals Few /hpf (None Seen) Urine Bacteria None seen /hpf (None Seen) Urine Creatinine 34.09 mg/dL (30.0-125.0) Urine Protein/Creatinine Ratio 3.85 Urine Sodium 76 mmol/L (40-220) Urine Glucose Normal mg/dL (Normal) Urine Total Protein 131.1 mg/dL (1-14) H Microbiology Microbiology Date/Time Source Procedure Growth Status 01/31/25 13:30 Aspirate Gram Stain - Final Complete 01/31/25 13:30 Aspirate Body Fluid Culture - Final Complete 01/29/25 14:00 Sputum Gram Stain - Final Complete 01/29/25 14:00 Respiratory Culture - Final Presumptive Zoe albicans Complete 01/29/25 10:40 Blood Blood Culture - Final NO GROWTH AFTER 5 DAYS OF INCUBATION. 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 Patient's hospital course was eventful for thrombocytopenia requiring platelet transfusion. 1. Acute hypoxic respiratory failure status post intubation status post extubation on02/07. , currently on room air 2. Septic shock secondary to perforated bowel with a peritonitis currently resolved 3. Peritonitis with a small bowel perforation status post exploratory laparotomy with the lysis of adhesions, resection of small bowel and lavage and entero enterostomy on01/13, status post revised exploratory laparotomy with the lysis of adhesions and evacuation of pelvic and abdominal infection with the resection of proximal jejunum, ileoileostomy and jejunojejunostomy secondary to do enterocutaneous fistula on02/04. 4. Perisplenic abscess status post CT-guided needle placement by IR on01/31 5. Acute kidney injury suspected secondary to vasomotor nephropathy, improving 6. Paroxysmal AFib 7. Chronic diastolic heart failure with a preserved ejection fraction 8. Acute anemia status post packed RBC. 9. Abnormal CARMEN drainage, NPO except ice chips 10. Nutrition, TPN resumed -c NPO except ice chips, resume TPN, IV antibiotics, follow up General surgery and Pulmonary recommendations. -patient's and patient's grandson updated at bedside. Patient's SHERRY status. Plan discussed with: Patient, Other (Patient's grandson, bedside RN.) My Orders Orders - HALEIGH HARDY MD Procedure Category Date Status Time D5w 5% (Dextrose 5%) [facility] 02/12/25 In Process 18:45 Date of Service: Feb 13, 2025 Billing Provider: HALEIGH HARDY MD Common Visit Codes: [id number] INP/OBS CARE(HIGH) HALEIGH HARDY MD Feb 13, 2025 11:08
[2025-02-13 11:52] LABS: Magnesium 2.2 mg/dL (1.6-2.6)
[2025-02-13] MEDS: VANCOMYCIN 500mg/100mL 100 ML IV ONE (12:56)
--- NOTE | 2025-02-13 14:04 | DVHPN2 ---
Progress Note - Dictate Date Seen: Feb 13, 2025 Has the PT tested + for MRSA If YES, has PT been informed?: No Medical Necessity Reason Pt with a Central, PICC or Fol: Yes The following are medically ne: Central Line, Leach Catheter Reason for leach catheter: Strict I&O vital signs Vital Sign Date Time Temp Pulse Resp B/P (MAP) Pulse Ox O2 Delivery O2 Flow Rate FiO2 02/13/25 12:57 85 18 134/65 02/13/25 06:00 100 Room Air* 0 21 02/13/25 03:00 97.8 97.8 Total Intake and Output 02/12/25 02/12/25 02/13/25 15:00 23:00 07:00 Intake Total 470 ml 577 ml 524 ml Output Total 1195 ml 860 ml Balance 470 ml -618 ml -336 ml medications Current Medications Medications Dose Ordered Sig/Isaura Route Start Time Stop Time Status Last Admin Dose Admin Cefazolin Sodium 50 ml @ 100 mls/hr Q8HR IV 01/13/25 14:00 UNV Vasopressin 20 units/Sodium Chloride 100 ml @ 9 mls/hr Q11H7M IV 01/13/25 18:45 UNV Potassium Chloride 100 ml @ 50 mls/hr Q2H IV 01/16/25 12:45 01/16/25 18:44 UNV Vancomycin HCl 100 ml @ 100 mls/hr DAILY@1200 IV 01/20/25 12:00 UNV Sodium Chloride 10 ml QSHIFT@10,22 IV 01/26/25 22:00 02/13/25 09:26 10 ML Acetaminophen 650 mg Q6HP PRN GT 01/30/25 16:00 Diagnostic Test (Pha) 1 strip Q6HR 01/31/25 18:00 02/13/25 12:00 1 STRIP Insulin Human Regular FOLLOW SLIDING SCALE Q6HR SC 01/31/25 18:00 02/11/25 22:38 4 UNITS Dextrose 50 ml UD IV 01/31/25 17:00 02/12/25 17:42 50 ML Vancomycin HCl 0 ml @ 0 mls/hr UD IV 02/03/25 18:30 Meropenem 50 ml @ 17 mls/hr Q12HR IV 02/03/25 22:00 02/13/25 09:21 17 MLS/HR Morphine Sulfate 2 mg Q4HPRN PRN IV 02/08/25 09:45 02/13/25 12:57 2 MG Clonidine HCl 0.1 mg Q7D TD 02/08/25 12:30 02/08/25 14:22 0.1 MG Labetalol HCl 10 mg Q4HP PRN IV 02/08/25 12:30 02/11/25 20:46 10 MG Norepinephrine Bitartrate 250 ml @ 3.75 mls/hr Q24H IV 02/12/25 01:30 02/12/25 02:09 3.75 MLS/HR Dextrose 1,000 ml @ 70 mls/hr [id number] IV 02/12/25 18:45 02/13/25 09:21 70 MLS/HR Amino Acids 0 ml @ 0 mls/hr PER PHARMACY IV 02/13/25 10:45 Fat Emulsion Intravenous 150 ml/Sodium Acetate 40 meq/Magnesium Sulfate 8 meq/ Multivitamins 10 ml/Amino Acids/ Dextrose 1,282 ml @ 53 mls/hr [id number] IV 02/13/25 22:00 02/14/25 21:59 laboratory and microbiology Laboratory Tests 02/13/25 04:00 Test 02/13/25 04:00 Range/Units Serum Glucose 92 74-106 mg/dL Assessment/Plan Covering for Dr. Reed Systems Manager rounds Impression Acute hypoxemic respiratory failure Bowel perforation S/p resection Sepsis ISRRAEL Patient seen and examined in ICU post-op care Events s/p extubation on minimal 02 no new events labs reviewed CXR's reviewed Management suppl 02 Continue antibiotics F/u cultures Bronchodilators Monitor renal function Monitor electrolytes Supplement as needed Monitor hemoglobin nutrition/TPN DVT prophylaxis ok to d/grade from pulm standpoint Critical care time 35 minutes Dietary Evaluation Review Comments: Nutrition Recommendation: 1) TPN to meet at least 75% estimated needs within 7 days 2) Monitor NPO status, lab values, wt trend, I/O Expected Outcomes/Goals: To meet >75% estimated needs Lab values to improve Fu 2-3 days Plan discussed with: Patient CC Plasma Assessment Blood Product Administration S: [id number] ROCIO ENNIS MD Feb 13, 2025 14:03
[2025-02-13] MEDS: ENOXAPARIN SOD 40 MG/0.4 ML SYRINGE SC SCH (17:14)
[2025-02-13] MEDS: TPN PER PHARMACY IV NR (21:53)
[2025-02-14] VITALS (24 sets, daily range): BP systolic 116–156; BP diastolic 53–74; PULSE 78–103; RESP 15–23; TEMP 98.3–99.2; O2SAT 96–100
[2025-02-14 03:02] LABS: Hematocrit 26.7 % (36.0-46.0); Hemoglobin 8.8 g/dL (12.2-16.2); Mean Corpuscular Hemoglobin 29.4 pg (28.0-32.0); Mean Corpuscular Volume 89.5 fL (80.0-100.0); Nucleated Red Blood Cells % 0.1 %
[2025-02-14 03:26] LABS: Alanine Aminotransferase 36 U/L (7-40); Anion Gap 9 (5-15); BUN/Creatinine Ratio 46.9 (10.0-20.0); Carbon Dioxide 21 mmol/L (20-31); Magnesium 2.0 mg/dL (1.6-2.6); Potassium 3.6 mmol/L (3.5-5.1); Sodium 138 mmol/L (136-145)
[2025-02-14 04:06] LABS: Albumin 1.9 g/dL (3.2-4.8); Alkaline Phosphatase 326 U/L (46-116); Bilirubin, Total 2.0 mg/dL (0.2-1.0); Blood Urea Nitrogen 38 mg/dL (9-23); Calcium 7.7 mg/dL (8.7-10.4); Chloride 108 mmol/L (98-107); Glucose 141 mg/dL (74-106); Total Protein 5.0 g/dL (5.7-8.2)
[2025-02-14] MEDS: ALBUMIN 25% 50 ML IV ONE (06:45)
[2025-02-14] MEDS: CALCIUM GLUC 1,000mg/50ml-NS 50 ML IV ONE (07:00)
--- NOTE | 2025-02-14 10:20 | DVHPN2 ---
Progress Note Date Seen: Feb 14, 2025 Has the PT tested + for MRSA If YES, has PT been informed?: No Medical Necessity Reason Pt with a Central, PICC or Fol: Yes The following are medically ne: Central Line, Leach Catheter Reason for leach catheter: Strict I&O Objective vital signs Vital Sign Date Time Temp Pulse Resp B/P (MAP) Pulse Ox O2 Delivery O2 Flow Rate FiO2 02/14/25 10:00 18 100 Room Air* 0 21 02/14/25 08:00 81 139/69 (92) 02/14/25 06:00 98.3 98.3 Total Intake and Output 02/13/25 02/13/25 02/14/25 15:00 23:00 07:00 Intake Total 611 ml 630 ml 438 ml Output Total 820 ml 936 ml Balance 611 ml -190 ml -498 ml medications Current Medications Medications Dose Ordered Sig/Isaura Route Start Time Stop Time Status Last Admin Dose Admin Cefazolin Sodium 50 ml @ 100 mls/hr Q8HR IV 01/13/25 14:00 UNV Vasopressin 20 units/Sodium Chloride 100 ml @ 9 mls/hr Q11H7M IV 01/13/25 18:45 UNV Potassium Chloride 100 ml @ 50 mls/hr Q2H IV 01/16/25 12:45 01/16/25 18:44 UNV Vancomycin HCl 100 ml @ 100 mls/hr DAILY@1200 IV 01/20/25 12:00 UNV Sodium Chloride 10 ml QSHIFT@10,22 IV 01/26/25 22:00 02/13/25 22:00 10 ML Acetaminophen 650 mg Q6HP PRN GT 01/30/25 16:00 Diagnostic Test (Pha) 1 strip Q6HR 01/31/25 18:00 02/14/25 06:05 1 STRIP Insulin Human Regular FOLLOW SLIDING SCALE Q6HR SC 01/31/25 18:00 02/14/25 06:04 2 UNITS Dextrose 50 ml UD IV 01/31/25 17:00 02/12/25 17:42 50 ML Vancomycin HCl 0 ml @ 0 mls/hr UD IV 02/03/25 18:30 Meropenem 50 ml @ 17 mls/hr Q12HR IV 02/03/25 22:00 02/13/25 21:50 17 MLS/HR Morphine Sulfate 2 mg Q4HPRN PRN IV 02/08/25 09:45 02/14/25 07:51 2 MG Clonidine HCl 0.1 mg Q7D TD 02/08/25 12:30 02/08/25 14:22 0.1 MG Labetalol HCl 10 mg Q4HP PRN IV 02/08/25 12:30 02/11/25 20:46 10 MG Norepinephrine Bitartrate 250 ml @ 3.75 mls/hr Q24H IV 02/12/25 01:30 02/12/25 02:09 3.75 MLS/HR Dextrose 1,000 ml @ 70 mls/hr [id number] IV 02/12/25 18:45 02/13/25 09:21 70 MLS/HR Amino Acids 0 ml @ 0 mls/hr PER PHARMACY IV 02/13/25 10:45 Fat Emulsion Intravenous 150 ml/Sodium Acetate 40 meq/Magnesium Sulfate 8 meq/ Multivitamins 10 ml/Amino Acids/ Dextrose 1,282 ml @ 53 mls/hr [id number] IV 02/13/25 22:00 02/14/25 21:59 02/13/25 21:53 53 MLS/HR Enoxaparin Sodium 40 mg DAILY SC 02/13/25 15:00 02/13/25 17:14 40 MG Fat Emulsion Intravenous 100 ml/Potassium Acetate 40 meq/ Potassium Phosphate 22 meq/ Magnesium Sulfate 8 meq/ Multivitamins 10 ml/Chromium/ Copper/Manganese/ Zinc 1 ml/Amino Acids/Dextrose 1,138 ml @ 47 mls/hr [id number] IV 02/14/25 22:00 02/15/25 21:59 laboratory and microbiology Laboratory Tests 02/14/25 02:19 Test 02/14/25 02:19 Range/Units Serum Glucose 141 H 74-106 mg/dL Problem List/Assessment/Plan Problem List/Assessment/Plan 01/14/25 afebrile, low dose BP support, received transfusion, I believe her decreased hematocrit is due to hemodilution. abdomen non distended, soft, wound clean and well approximated, drainage serous . remains intubated and sedated 01/16/25 ALKALOSIS, ABDOMEN NON DISTENDED, SOFT, DRAINAGE SEROUS, WOUND CLEAN AND WELL APPROXIMATED 01/17/25 improved, thrombocytopenia possibly made worse by Fluconazole,will DC, abdomen non distended, wound well approximated without infection, TATY drainage serous, CVP 6, good urine output. 01/18/25 abg reviewed, ,abdomen soft, non distended, TATY drainage clear serous, no bowel activity, febrile, urine output ok, continues with thrombocytopenia,pt and inr slightly elevated. prognosis grave. 01/20/25remains sedated on ventilator, abdomen soft, non distended, faint bowel sounds auscultated by nurse, wound clean and well approximated, TATY drainage clear serous. continues with thrombocytopenia, still behind on intravascular volume( BUN and Creatinine elevated), i would give more IV fluids and DC vancomycin. 01/25/25 afebrile, normotensive, wound clean and well approximated, TATY drainage serous, abdomen non distended, soft, gastrografin small bowel series shows non obstructed GI tract and no evidence of extravasation. It is OK to initiate enteric feedings. 01/29/25 16 DAYS POST OPERATIVELY TRHE TATY DRAINAGE WHICH HAD CONSISTENTLY BEEN SEROUS OR SERO SANGUINEOUS HAS BECOME "DIRTY" BROWNISH DISCOLORATION, HER WOUND IS CLEAN AND WELL APPROXIMATED AND HER ABDOMEN IS SOFT AND NON DISTENDED, CT SCAN SHOWS SO0ME FLUID AND ACCUMULATION OF FLUID AROUND THE SPLEEN, WILL REQUEST CT GUIDED ASPIRATION OF SAME, WILL ORDER IRRIGATION OF DRAINS. SHE SI AFEBRILE AND MAINTAINS NORMAL BLOOD PRESSURE, HER WBC IS NORMAL. 01/30/25 improved, awake, being weaned off vent. abdomen non distended, non tender, taty drainage clearing with irrigation 02/02/25clinically unchanged, gastrografin small bowel series reported and normal, no extravasation reported, will order a follow up KUB for tomorrow AM 02/03/25 PATIENT HAD A GASTROGRAFIN SMALL BOWEL SERIES AND A FOLLOW UP KUB X RAYS NEITHER ONE OF WHICH SHOW EXTRAVASATION OF CONTRAST OR EVIDENCE OF FREE CONTRAST IN THE PERITONEAL CAVITY. THERE IS HOWEVER VISCOUS, BROWNISH FLUID DRAINING VIA BOTH TATY DRAINS AND THROUGH INFRAUMBILICAL PORTION OF MIDLINE WOUND, I REMOVED THE RICHIE FROM THE 3 CM SECTION OF THE INFRAUMBILICAL WOUND AND EVACUATED ABOUT 30 CC OF THIS FLUID AND INSTRUCTED THE NURSE TO PLACE A STOMA APPLIANCE ON THIS OPENING. 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 TODAY HER WBC IS ELEVATED, ABDOMEN CONTINUES TO BE NON DISTENDED, SOFT, BUT SHE DOES HAVE SLIGHT TENDERNESS IN THE PERIUMBILICAL AREA. I WILL TREAT THIS EXPECTANTLY FORM THE TIME BEING IN THE HOPE THAT THIS IS A "CONTROLLED" FISTULA AND HOPEFUL WILL HEAL SPONTANEOUSLY WITH NPO AND NUTRITIONAL SUPPORT. WILL WATCH CLOSELY, AFTER A FEW DAYS WILL GET A FISTULOGRAM TO PIN POINT THE ENTERIC ORIGIN OF THE FISTULIZATION. CONTINUE NGT SUCTION AND DRAIN IRRIGATION ORDERED02/05/25 02/05/25 remains sedated and intubated?ventilated, abdomen non distended soft, wound vac in place. TATY drainage serosanguineous 02/08/25 EXTUBATED, GOOD INSPIRATORY EFFORT, BP NML WITHOUT PRESSOR SUPPORT, ABDOMEN SOFT, NON DISTENDED, APPROPRIATELY TENDER, LABS REVIEWED. NO CHANGES TODAY OTHER THAN ALLOW ICE CHIPS PO. WILL ORDER GASTROGRAFIN SMALL BOWEL FOLLOWTHROUGH FOR Friday02/09/25 awake cooperative, wound vac in place, abdomen soft, non distended, appropriately tender, TATY drainage brownish discoloration, will irrigate, her WBC is normal and she is afebrile and normotensive. gastrografin tomorrow 02/10/25 AWAKE,COMFORTABLE, DENIES PAIN, ABDOMEN NON DISTENDED APPROPRIATELY TENDER, WOUND CLEAN AND WELL APPROXIMATED, DRAINS BEING IRRIGATED, LABS OK, GOOD URINE OUTPUT. "SURGICALLY" STABLE 02/11/25 feels well, passing flatus. is hungry, abdomen soft non distended, drainage clearing with irrigation, will wait for Gastrografin small bowel series to be completed, if normal will start po clear liquids 02/12/25 no nausea, change in TATY drainage colort, appears to contaIN, BILE, WILL DC po CLEAR LIQUIDS, CONTINUE ICE CGHIPS, SEND DRAin fluid for amylase and bilirubin, 02/13/25 states she feels well, abdomen non tender, non distended, wound clean and well approximated. drainage slightly clearer, keep npo for now, needs to resume TPN 02/14/25 PATIENT C/O BEING COLD BUT HAS NO PAIN, DRAINAGE SEEMS TO BE CLEARING, SHE HAD A BOWEL MOVEMENTS, ABDOMEN IS SOFT AND NON TENDER, NON DISTENDED, WOUND IS CLEAN AND WELL APPROXIMATED, WILL CONTINUE NPO STATUS AMYLASE ON TATY DRAINAGE FLUID IS GOING TO TAKE SEVERAL DAYS TO BECOME AVAILABLE. CONTINUE TPN Plan discussed with: Patient, Other Dietary Evaluation Review Comments: Nutrition Recommendation: 1) TPN to meet at least 75% estimated needs within 7 days 2) Monitor NPO status, lab values, wt trend, I/O Expected Outcomes/Goals: To meet >75% estimated needs Lab values to improve Fu 2-3 days MELVA RAMESH MD Feb 14, 2025 10:20
[2025-02-14] MEDS: VANCOMYCIN 500mg/100mL 100 ML IV ONE (13:15)
--- NOTE | 2025-02-14 20:11 | DVHPNRES ---
Progress Note Date Seen: Feb 14, 2025 Resident Creating Document: GIGI FELIZ AMBROSE Has the PT tested + for MRSA If YES, has PT been informed?: No Medical Necessity Reason Pt with a Central, PICC or Fol: Yes The following are medically ne: Central Line, Leach Catheter Reason for leach catheter: Strict I&O Subjective Review of Systems Patient Is seen and examined at the bedside. Patient extubated on 02/08. Status post extubation, patient can maintain oxygen through nasal cannula. Alert awake and oriented, not have any active complaint. Objective vital signs Vital Sign Date Time Temp Pulse Resp B/P (MAP) Pulse Ox O2 Delivery O2 Flow Rate FiO2 02/14/25 19:00 100 22 148/66 (93) 99 02/14/25 18:00 Room Air* 0 21 02/14/25 16:00 99.0 99.0 Total Intake and Output 02/13/25 02/13/25 02/14/25 15:00 23:00 07:00 Intake Total 611 ml 630 ml 438 ml Output Total 820 ml 936 ml Balance 611 ml -190 ml -498 ml medications Current Medications Medications Dose Ordered Sig/Isaura Route Start Time Stop Time Status Last Admin Dose Admin Cefazolin Sodium 50 ml @ 100 mls/hr Q8HR IV 01/13/25 14:00 UNV Vasopressin 20 units/Sodium Chloride 100 ml @ 9 mls/hr Q11H7M IV 01/13/25 18:45 UNV Potassium Chloride 100 ml @ 50 mls/hr Q2H IV 01/16/25 12:45 01/16/25 18:44 UNV Vancomycin HCl 100 ml @ 100 mls/hr DAILY@1200 IV 01/20/25 12:00 UNV Sodium Chloride 10 ml QSHIFT@10,22 IV 01/26/25 22:00 02/14/25 10:50 10 ML Acetaminophen 650 mg Q6HP PRN GT 01/30/25 16:00 Diagnostic Test (Pha) 1 strip Q6HR 01/31/25 18:00 02/14/25 17:16 1 STRIP Insulin Human Regular FOLLOW SLIDING SCALE Q6HR SC 01/31/25 18:00 02/14/25 17:17 2 UNITS Dextrose 50 ml UD IV 01/31/25 17:00 02/12/25 17:42 50 ML Vancomycin HCl 0 ml @ 0 mls/hr UD IV 02/03/25 18:30 Meropenem 50 ml @ 17 mls/hr Q12HR IV 02/03/25 22:00 02/14/25 10:50 17 MLS/HR Morphine Sulfate 2 mg Q4HPRN PRN IV 02/08/25 09:45 02/14/25 13:15 2 MG Clonidine HCl 0.1 mg Q7D TD 02/08/25 12:30 02/08/25 14:22 0.1 MG Labetalol HCl 10 mg Q4HP PRN IV 02/08/25 12:30 02/11/25 20:46 10 MG Amino Acids 0 ml @ 0 mls/hr PER PHARMACY IV 02/13/25 10:45 Fat Emulsion Intravenous 150 ml/Sodium Acetate 40 meq/Magnesium Sulfate 8 meq/ Multivitamins 10 ml/Amino Acids/ Dextrose 1,282 ml @ 53 mls/hr [id number] IV 02/13/25 22:00 02/14/25 21:59 02/13/25 21:53 53 MLS/HR Enoxaparin Sodium 40 mg DAILY SC 02/13/25 15:00 02/14/25 10:50 40 MG Fat Emulsion Intravenous 100 ml/Potassium Acetate 40 meq/ Potassium Phosphate 22 meq/ Magnesium Sulfate 8 meq/ Multivitamins 10 ml/Chromium/ Copper/Manganese/ Zinc 1 ml/Amino Acids/Dextrose 1,138 ml @ 47 mls/hr [id number] IV 02/14/25 22:00 02/15/25 21:59 Examination General Appearance: Alert, Oriented X3, Cooperative, No acute distress HEENT: Atraumatic, PERRLA, EOMI, Mucous membrane moist/pink Respiratory: Clear to auscultation, Normal air movement Cardiovascular: Regular rate, Normal S1, Normal S2, No murmurs, no chest wall tenderness Abdominal: Mild abdominal tenderness, with wound VAC at the midline, for CARMEN drain at 4 quadrant, draining brownish fluid Extremities: No clubbing, No cyanosis, No edema, Normal pulses, No tenderness/swelling Skin: No rashes, No breakdown, No significant lesion Neuro: Grossly intact Psych/Mental Status: Mental status NL, Mood NL laboratory and microbiology Laboratory Tests 02/14/25 02:19 Test 02/14/25 02:19 Range/Units Serum Glucose 141 H 74-106 mg/dL Microbiology Date/Time Source Procedure Growth Status 01/31/25 13:30 Aspirate Gram Stain - Final Complete 01/31/25 13:30 Aspirate Body Fluid Culture - Final Complete 01/29/25 14:00 Sputum Gram Stain - Final Complete 01/29/25 14:00 Respiratory Culture - Final Presumptive Zoe albicans Complete 01/29/25 10:40 Blood Blood Culture - Final NO GROWTH AFTER 5 DAYS OF INCUBATION. Complete 01/28/25 12:55 Voided Urine Urine Culture - Final Complete 01/13/25 17:10 Nose MRSA Screen - Final Complete Problem List/Assessment/Plan Problem List/Assessment/Plan This is a 80-year-old lady with past medical history of hypertension, AFib (on Eliquis), diabetes type 2, CKD, came to the hospital due to abdominal pain, and constipation. Admitted on 01/13/2025. Found to have peritonitis due to bowel perforation, and underwent emergent laparotomy with subsequent resection of perforated small bowel and enteroenterostomy. Due to abnormal CARMEN drainage, second exploratory laparotomy performed on 02/04 and found to have perforation near to previous perforation area, underwent resection of area with subsequent anastomosis of proximal jejunal loops. Extubated on 02/07. 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 PULMONARY: Acute hypoxic respiratory failure secondary to bilateral pleural effusion/pneumonia Chest x-ray demonstrated bilateral hazy opacities * Sputum culture from 01/29 shows presumptive Zoe albicans * Status post extubation, on nasal cannula * Plan: Physiotherapy GASTROINTESTINAL: Peritonitis due to Perforation of the small bowel, status post exploratory laparotomy Transaminitis secondary to shock Perisplenic abscess * Peritoneal fluid culture from 01/13 shows E coli and Klebsiella pneumoniae sensitive to meropenem (given for 11 days, stopped on 01/31) * CT scan on 01/31 shows, moderate sized fluid collection in the perisplenic region * IR consulted, put pigtail drain, and has drained 50 cc purulent fluid * Patient has brownish discharge of the drain * Small bowel series, normal study * Patient has leakage from surgical area and drainage * Second laparotomy, performed on 02/04, lysis of adhesions, evacuation of pelvic and abdominal infection, resection of proximal jejunum, ileostomy, and jejunostomy and put for CARMEN drains at 4 quadrants * Small bowel series on 02/11, normal study, per surgery okay to start clear liquid diet * Plan: NPO, TPN and IV antibiotics GENITOURINARY: ISRRAEL likely due to shock/VMN, resolved * Monitoring ENDOCRINE: History of hypothyroidism Type 2 diabetes mellitus, hemoglobin A1c 8.2 * Few episodes of hypoglycemia * TSH is raised at 16.29, normal free T4 METABOLIC: Hypokalemia Hyperkalemia Hyponatremia, Nephrology recommended D5W at 75 mL/hour Severe metabolic protein malnutrition * Anion gap metabolic acidosis secondary to bowel ischemia leading to lactic acidosis HEME: Acute on chronic anemia secondary to hemodilution/post surgical 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 * 5 unit of PRBC, 2 pt of platelet, has been given INFECTIOUS DISEASE: Sepsis with septic shock secondary to perforation of the small bowel * Blood culture from 01/29 preliminary result shows Gram-positive rods (1/4 sets of blood culture) * Discontinued levofloxacin Flagyl on 02/03 * Plan: Continue on vancomycin and meropenem started on 02/03 MUSCULOSKELETAL: Rib fracture, due to fall DIET: Clear liquid diet DVT prophylax: Hold GI prophylaxis: Pantoprazole Bowel regimen: Code status: Full code LINES/DRAINS/ACCESS: ETT: Intubated on 01/14/25, extubated on 02/07 IV access: Rt upper thigh PICC placed on 01/26/2025 Drips: off from pressor and sedatives Leach catheter: Placed on 01/14, exchange on 02/14 CARMEN drainage: Four CARMEN drain in 4 quadrants of abdomen DISPOSITION: Downgraded to SHERRY Patient's status discussed with patient and patient's son at the bedside. Critical care time spent more than 61 minutes, including patient care, chart review, and updating the family. Excluding any procedures. Case discussed with Dr. Self Plan discussed with: Other My Orders My Orders Orders - GIGI FELIZ Procedure Category Date Status Time Vancomycin,Random LAB 02/15/25 Verified 05:00 * Fish Cake Maker CONS 02/14/25 Transmitted Consult Dietary Evaluation Review Comments: Nutrition Recommendation: 1) TPN to meet at least 75% estimated needs within 7 days 2) Monitor NPO status, lab values, wt trend, I/O Expected Outcomes/Goals: To meet >75% estimated needs Lab values to improve Fu 2-3 days CC Plasma Assessment Blood Product Administration S: [id number] Date of Service: Feb 14, 2025 Billing Provider: ZBIGNIEW SELF MD Common Visit Codes: 64349-[id number] CARE 30-74 MIN GIGI FELIZ Feb 14, 2025 20:11 ZBIGNIEW SELF MD Feb 15, 2025 12:19
[2025-02-14] MEDS: TPN PER PHARMACY IV NR (22:22)
[2025-02-15] VITALS (25 sets, daily range): BP systolic 111–157; BP diastolic 55–83; PULSE 89–112; RESP 18–31; TEMP 97.9–99.2; O2SAT 96–99
[2025-02-15 03:58] LABS: Hematocrit 26.9 % (36.0-46.0); Hemoglobin 8.8 g/dL (12.2-16.2); Mean Corpuscular Hemoglobin 29.4 pg (28.0-32.0); Mean Corpuscular Volume 89.7 fL (80.0-100.0); Nucleated Red Blood Cells % 0.1 %
[2025-02-15 04:15] LABS: Alanine Aminotransferase 33 U/L (7-40); Anion Gap 9 (5-15); BUN/Creatinine Ratio 47.3 (10.0-20.0); Carbon Dioxide 23 mmol/L (20-31); Magnesium 2.1 mg/dL (1.6-2.6); Sodium 141 mmol/L (136-145)
[2025-02-15 04:31] LABS: Albumin 2.2 g/dL (3.2-4.8); Alkaline Phosphatase 302 U/L (46-116); Bilirubin, Total 1.5 mg/dL (0.2-1.0); Blood Urea Nitrogen 35 mg/dL (9-23); Calcium 7.8 mg/dL (8.7-10.4); Chloride 109 mmol/L (98-107); Glucose 133 mg/dL (74-106); Potassium 3.0 mmol/L (3.5-5.1); Total Protein 5.5 g/dL (5.7-8.2); Triglycerides 154 mg/dL (< 150)
--- NOTE | 2025-02-15 04:47 | DVH ---
Exam: XY KUB ABDOMEN SINGLE VIEW Indication: FU SBO Comparison: Small-bowel series 02/11/2025 Technique: 2 radiographic views of the abdomen. Findings: Nonobstructive bowel gas pattern. Near-complete passage previously administered enteric contrast, wit h scant residual in the distal large bowel. Numerous abdominopelvic drains remain in place. The lower chest is not visualized. Osseous structures are unchanged. Impression: 1. Nonobstructive bowel gas pattern. Near-complete passage of previously administered enteric contras t from 4 days prior.
[2025-02-15] MEDS: POTASSIUM CHL 20MEQ/100ML 100 ML IV SCH (05:28)
[2025-02-15] MEDS: SODIUM PHOSPHATES 20 MEQ in SODIUM CHL 0.9% 100 ML IV ONE (14:26)
--- NOTE | 2025-02-15 19:08 | DVHPNRES ---
Progress Note Date Seen: Feb 15, 2025 Resident Creating Document: GIGI FELIZ AMBROSE Has the PT tested + for MRSA If YES, has PT been informed?: No Medical Necessity Reason Pt with a Central, PICC or Fol: Yes The following are medically ne: PICC Line, Leach Catheter Reason for leach catheter: Strict I&O Subjective Review of Systems Patient Is seen and examined at the bedside. Patient extubated on 02/08. Status post extubation, patient can maintain oxygen through nasal cannula. Alert awake and oriented, not have any active complaint. Objective vital signs Vital Sign Date Time Temp Pulse Resp B/P (MAP) Pulse Ox O2 Delivery O2 Flow Rate FiO2 02/15/25 18:24 109 28 128/62 02/15/25 18:00 97 Room Air* 0 21 02/15/25 16:00 99.2 99.2 Total Intake and Output 02/14/25 02/14/25 02/15/25 15:00 23:00 07:00 Intake Total 574 ml 418 ml 376 ml Output Total 1380 ml 950 ml Balance 574 ml -962 ml -574 ml medications Current Medications Medications Dose Ordered Sig/Isaura Route Start Time Stop Time Status Last Admin Dose Admin Cefazolin Sodium 50 ml @ 100 mls/hr Q8HR IV 01/13/25 14:00 UNV Vasopressin 20 units/Sodium Chloride 100 ml @ 9 mls/hr Q11H7M IV 01/13/25 18:45 UNV Potassium Chloride 100 ml @ 50 mls/hr Q2H IV 01/16/25 12:45 01/16/25 18:44 UNV Vancomycin HCl 100 ml @ 100 mls/hr DAILY@1200 IV 01/20/25 12:00 UNV Sodium Chloride 10 ml QSHIFT@10,22 IV 01/26/25 22:00 02/15/25 09:43 10 ML Acetaminophen 650 mg Q6HP PRN GT 01/30/25 16:00 Diagnostic Test (Pha) 1 strip Q6HR 01/31/25 18:00 02/15/25 18:22 1 STRIP Insulin Human Regular FOLLOW SLIDING SCALE Q6HR SC 01/31/25 18:00 02/15/25 14:18 4 UNITS Dextrose 50 ml UD IV 01/31/25 17:00 02/12/25 17:42 50 ML Morphine Sulfate 2 mg Q4HPRN PRN IV 02/08/25 09:45 02/15/25 18:24 2 MG Clonidine HCl 0.1 mg Q7D TD 02/08/25 12:30 02/15/25 14:20 0.1 MG Labetalol HCl 10 mg Q4HP PRN IV 02/08/25 12:30 02/11/25 20:46 10 MG Amino Acids 0 ml @ 0 mls/hr PER PHARMACY IV 02/13/25 10:45 Enoxaparin Sodium 40 mg DAILY SC 02/13/25 15:00 02/15/25 09:43 40 MG Fat Emulsion Intravenous 100 ml/Potassium Acetate 40 meq/ Potassium Phosphate 22 meq/ Magnesium Sulfate 8 meq/ Multivitamins 10 ml/Chromium/ Copper/Manganese/ Zinc 1 ml/Amino Acids/Dextrose 1,138 ml @ 47 mls/hr [id number] IV 02/14/25 22:00 02/15/25 21:59 02/14/25 22:22 47 MLS/HR Fat Emulsion Intravenous 100 ml/Potassium Acetate 20 meq/ Potassium Phosphate 30 meq/ Magnesium Sulfate 8 meq/ Multivitamins 10 ml/Insulin Human Regular 5 units/ Amino Acids/ Dextrose 1,178.8682 ml @ 49 mls/hr Q24H4M IV 02/15/25 22:00 02/16/25 21:59 Examination General Appearance: Alert, Oriented X3, Cooperative, No acute distress HEENT: Atraumatic, PERRLA, EOMI, Mucous membrane moist/pink Respiratory: Clear to auscultation, Normal air movement Cardiovascular: Regular rate, Normal S1, Normal S2, No murmurs, no chest wall tenderness Abdominal: Mild abdominal tenderness, with wound VAC at the midline, for CARMEN drain at 4 quadrant, draining brownish fluid Extremities: No clubbing, No cyanosis, No edema, Normal pulses, No tenderness/swelling Skin: No rashes, No breakdown, No significant lesion Neuro: Grossly intact Psych/Mental Status: Mental status NL, Mood NL laboratory and microbiology Laboratory Tests 02/15/25 03:20 Test 02/15/25 03:20 Range/Units Serum Glucose 133 H 74-106 mg/dL Microbiology Date/Time Source Procedure Growth Status 01/31/25 13:30 Aspirate Gram Stain - Final Complete 01/31/25 13:30 Aspirate Body Fluid Culture - Final Complete 01/29/25 14:00 Sputum Gram Stain - Final Complete 01/29/25 14:00 Respiratory Culture - Final Presumptive Zoe albicans Complete 01/29/25 10:40 Blood Blood Culture - Final NO GROWTH AFTER 5 DAYS OF INCUBATION. Complete 01/28/25 12:55 Voided Urine Urine Culture - Final Complete 01/13/25 17:10 Nose MRSA Screen - Final Complete Labs and/or images reviewed: Labs reviewed by me, Image(s) reviewed by me Problem List/Assessment/Plan Problem List/Assessment/Plan This is a 80-year-old lady with past medical history of hypertension, AFib (on Eliquis), diabetes type 2, CKD, came to the hospital due to abdominal pain, and constipation. Admitted on 01/13/2025. Found to have peritonitis due to bowel perforation, and underwent emergent laparotomy with subsequent resection of perforated small bowel and enteroenterostomy. Due to abnormal CARMEN drainage, second exploratory laparotomy performed on 02/04 and found to have perforation near to previous perforation area, underwent resection of area with subsequent anastomosis of proximal jejunal loops. Extubated on 02/07. 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 PULMONARY: Acute hypoxic respiratory failure secondary to bilateral pleural effusion/pneumonia Chest x-ray demonstrated bilateral hazy opacities * Sputum culture from 01/29 shows presumptive Zoe albicans * Status post extubation, on nasal cannula * Plan: Physiotherapy GASTROINTESTINAL: Peritonitis due to Perforation of the small bowel, status post exploratory laparotomy Transaminitis secondary to shock Perisplenic abscess * Peritoneal fluid culture from 01/13 shows E coli and Klebsiella pneumoniae sensitive to meropenem (given for 11 days, stopped on 01/31) * CT scan on 01/31 shows, moderate sized fluid collection in the perisplenic region * IR consulted, put pigtail drain, and has drained 50 cc purulent fluid * Patient has brownish discharge of the drain * Small bowel series, normal study * Patient has leakage from surgical area and drainage * Second laparotomy, performed on 02/04, lysis of adhesions, evacuation of pelvic and abdominal infection, resection of proximal jejunum, ileostomy, and jejunostomy and put for CARMEN drains at 4 quadrants * Small bowel series on 02/11, normal study, per surgery okay to start clear liquid diet * Plan: NPO, TPN GENITOURINARY: ISRRAEL likely due to shock/VMN, resolved * Monitoring ENDOCRINE: History of hypothyroidism Type 2 diabetes mellitus, hemoglobin A1c 8.2 * Few episodes of hypoglycemia * TSH is raised at 16.29, normal free T4 METABOLIC: Hypokalemia Hyperkalemia Hyponatremia, Nephrology recommended D5W at 75 mL/hour Severe metabolic protein malnutrition * Anion gap metabolic acidosis secondary to bowel ischemia leading to lactic acidosis HEME: Acute on chronic anemia secondary to hemodilution/post surgical 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 * 5 unit of PRBC, 2 pt of platelet, has been given INFECTIOUS DISEASE: Sepsis with septic shock secondary to perforation of the small bowel * Blood culture from 01/29 preliminary result shows Gram-positive rods (1/4 sets of blood culture) * Discontinued levofloxacin Flagyl on 02/03 * Discontine vancomycin and meropenem started on 02/03 given up to 02/13 MUSCULOSKELETAL: Rib fracture, due to fall DIET: Clear liquid diet DVT prophylax: Hold GI prophylaxis: Pantoprazole Bowel regimen: Code status: Full code LINES/DRAINS/ACCESS: ETT: Intubated on 01/14/25, extubated on 02/07 IV access: Rt upper thigh PICC placed on 01/26/2025 Drips: off from pressor and sedatives Leach catheter: Placed on 01/14, exchange on 02/14 CARMEN drainage: Four CARMEN drain in 4 quadrants of abdomen DISPOSITION: Downgraded to SHERRY Patient's status discussed with patient and patient's son at the bedside. Critical care time spent more than 56 minutes, including patient care, chart review, and updating the family. Excluding any procedures. Case discussed with Dr. Self Plan discussed with: Patient, Daughter, Son, Other My Orders My Orders Orders - GIGI FELIZ RESDIADRIANA Procedure Category Date Status Time Communication Order ORDERS 02/14/25 Transmitted 20:08 Chest Xray 1 View XY 02/15/25 Taken 04:00 Kub Abdomen Single XY 02/15/25 Resulted View 04:11 Urine Bacterial MARIA ISABEL 02/15/25 In Process Culture 10:59 Dietary Evaluation Review Comments: Nutrition Recommendation: 1) TPN to meet at least 75% estimated needs within 7 days 2) Monitor NPO status, lab values, wt trend, I/O Expected Outcomes/Goals: To meet >75% estimated needs Lab values to improve Fu 2-3 days CC Plasma Assessment Blood Product Administration S: [id number] Date of Service: Feb 15, 2025 Billing Provider: ZBIGNIEW SELF MD Common Visit Codes: 92413-[id number] CARE 30-74 MIN GIGI FELIZ RESDIENT Feb 15, 2025 19:08 ZBIGNIEW SELF MD Feb 16, 2025 14:10
[2025-02-15] MEDS: TPN PER PHARMACY IV NR (22:12)
[2025-02-16] VITALS (27 sets, daily range): BP systolic 91–159; BP diastolic 44–116; PULSE 83–125; RESP 15–21; TEMP 98.1–100; O2SAT 96–100
--- NOTE | 2025-02-16 03:38 | DVH ---
CHEST RADIOGRAPH Indication: FU Technique: Single frontal view of the chest was obtained COMPARISON: XY CHEST XRAY 1 VIEW on DOS: 02/11/25, XY CHEST XRAY 1 VIEW on DOS: 02/08/25, XY CHEST PORT ABLE on DOS: 02/07/25, XY CHEST PORTABLE on DOS: 02/06/25, XY CHEST XRAY 1 VIEW on DOS: 02/05/25 FINDINGS: Lines and Tubes: Left lung base small bore percutaneous thoracostomy. Lungs: Small left pleural effusion. The lungs are otherwise clear. No pneumothorax. Cardiomediastinal contours: Unremarkable Bones: Unremarkable IMPRESSION: 1. Small left pleural effusion and left basilar chest tube.
[2025-02-16 04:28] LABS: Hematocrit 27.0 % (36.0-46.0); Hemoglobin 9.0 g/dL (12.2-16.2); Mean Corpuscular Hemoglobin 29.8 pg (28.0-32.0); Mean Corpuscular Volume 89.5 fL (80.0-100.0); Nucleated Red Blood Cells % 0.1 %
[2025-02-16 04:52] LABS: Alanine Aminotransferase 31 U/L (7-40); Anion Gap 10 (5-15); BUN/Creatinine Ratio 50.0 (10.0-20.0); Carbon Dioxide 21 mmol/L (20-31); Magnesium 2.1 mg/dL (1.6-2.6); Potassium 4.1 mmol/L (3.5-5.1); Sodium 141 mmol/L (136-145)
[2025-02-16 04:53] LABS: Total Protein 5.8 g/dL (5.7-8.2)
[2025-02-16 04:56] LABS: Albumin 2.3 g/dL (3.2-4.8); Alkaline Phosphatase 321 U/L (46-116); Bilirubin, Total 1.4 mg/dL (0.2-1.0); Blood Urea Nitrogen 32 mg/dL (9-23); Calcium 7.9 mg/dL (8.7-10.4); Chloride 110 mmol/L (98-107); Glucose 129 mg/dL (74-106)
--- NOTE | 2025-02-16 07:30 | DVHPN2 ---
Progress Note Date Seen: Feb 16, 2025 Has the PT tested + for MRSA If YES, has PT been informed?: No Medical Necessity Reason Pt with a Central, PICC or Fol: Yes The following are medically ne: Central Line, Leach Catheter Reason for leach catheter: Strict I&O Objective vital signs Vital Sign Date Time Temp Pulse Resp B/P (MAP) Pulse Ox O2 Delivery O2 Flow Rate FiO2 02/16/25 06:00 96 02/16/25 06:00 16 98 Room Air* 0 21 02/16/25 06:00 136/71 (92) 02/16/25 03:00 98.1 98.1 Total Intake and Output 02/15/25 02/15/25 02/16/25 15:00 23:00 07:00 Intake Total 655.25 ml 603.50 ml 196 ml Output Total 1160 ml 1400 ml Balance 655.25 ml -556.50 ml -1204 ml medications Current Medications Medications Dose Ordered Sig/Isaura Route Start Time Stop Time Status Last Admin Dose Admin Cefazolin Sodium 50 ml @ 100 mls/hr Q8HR IV 01/13/25 14:00 UNV Vasopressin 20 units/Sodium Chloride 100 ml @ 9 mls/hr Q11H7M IV 01/13/25 18:45 UNV Potassium Chloride 100 ml @ 50 mls/hr Q2H IV 01/16/25 12:45 01/16/25 18:44 UNV Vancomycin HCl 100 ml @ 100 mls/hr DAILY@1200 IV 01/20/25 12:00 UNV Sodium Chloride 10 ml QSHIFT@10,22 IV 01/26/25 22:00 02/15/25 22:10 10 ML Diagnostic Test (Pha) 1 strip Q6HR 01/31/25 18:00 02/16/25 06:24 1 STRIP Insulin Human Regular FOLLOW SLIDING SCALE Q6HR SC 01/31/25 18:00 02/16/25 06:29 2 UNITS Dextrose 50 ml UD IV 01/31/25 17:00 02/12/25 17:42 50 ML Morphine Sulfate 2 mg Q4HPRN PRN IV 02/08/25 09:45 02/16/25 03:43 2 MG Clonidine HCl 0.1 mg Q7D TD 02/08/25 12:30 02/15/25 14:20 0.1 MG Labetalol HCl 10 mg Q4HP PRN IV 02/08/25 12:30 02/11/25 20:46 10 MG Amino Acids 0 ml @ 0 mls/hr PER PHARMACY IV 02/13/25 10:45 Enoxaparin Sodium 40 mg DAILY SC 02/13/25 15:00 02/15/25 09:43 40 MG Fat Emulsion Intravenous 100 ml/Potassium Acetate 20 meq/ Potassium Phosphate 30 meq/ Magnesium Sulfate 8 meq/ Multivitamins 10 ml/Insulin Human Regular 5 units/ Amino Acids/ Dextrose 1,178.8682 ml @ 49 mls/hr Q24H4M IV 02/15/25 22:00 02/16/25 21:59 02/15/25 22:12 49 MLS/HR laboratory and microbiology Laboratory Tests 02/16/25 03:30 Test 02/16/25 03:30 Range/Units Serum Glucose 129 H 74-106 mg/dL Problem List/Assessment/Plan Problem List/Assessment/Plan 01/14/25 afebrile, low dose BP support, received transfusion, I believe her decreased hematocrit is due to hemodilution. abdomen non distended, soft, wound clean and well approximated, drainage serous . remains intubated and sedated 01/16/25 ALKALOSIS, ABDOMEN NON DISTENDED, SOFT, DRAINAGE SEROUS, WOUND CLEAN AND WELL APPROXIMATED 01/17/25 improved, thrombocytopenia possibly made worse by Fluconazole,will DC, abdomen non distended, wound well approximated without infection, TATY drainage serous, CVP 6, good urine output. 01/18/25 abg reviewed, ,abdomen soft, non distended, TATY drainage clear serous, no bowel activity, febrile, urine output ok, continues with thrombocytopenia,pt and inr slightly elevated. prognosis grave. 01/20/25remains sedated on ventilator, abdomen soft, non distended, faint bowel sounds auscultated by nurse, wound clean and well approximated, TATY drainage clear serous. continues with thrombocytopenia, still behind on intravascular volume( BUN and Creatinine elevated), i would give more IV fluids and DC vancomycin. 01/25/25 afebrile, normotensive, wound clean and well approximated, TATY drainage serous, abdomen non distended, soft, gastrografin small bowel series shows non obstructed GI tract and no evidence of extravasation. It is OK to initiate enteric feedings. 01/29/25 16 DAYS POST OPERATIVELY TRHE TATY DRAINAGE WHICH HAD CONSISTENTLY BEEN SEROUS OR SERO SANGUINEOUS HAS BECOME "DIRTY" BROWNISH DISCOLORATION, HER WOUND IS CLEAN AND WELL APPROXIMATED AND HER ABDOMEN IS SOFT AND NON DISTENDED, CT SCAN SHOWS SO0ME FLUID AND ACCUMULATION OF FLUID AROUND THE SPLEEN, WILL REQUEST CT GUIDED ASPIRATION OF SAME, WILL ORDER IRRIGATION OF DRAINS. SHE SI AFEBRILE AND MAINTAINS NORMAL BLOOD PRESSURE, HER WBC IS NORMAL. 01/30/25 improved, awake, being weaned off vent. abdomen non distended, non tender, taty drainage clearing with irrigation 02/02/25clinically unchanged, gastrografin small bowel series reported and normal, no extravasation reported, will order a follow ujp KUB for tomorrow AM 02/03/25 PATIENT HAD A GASTROGRAFIN SMALL BOWEL SERIES AND A FOLLOW UP KUB X RAYS NEITHER ONE OF WHICH SHOW EXTRAVASATION OF CONTRAST OR EVIDENCE OF FREE CONTRAST IN THE PERITONEAL CAVITY. THERE IS HOWEVER VISCOUS, BROWNISH FLUID DRAINING VIA BOTH TATY DRAINS AND THROUGH INFRAUMBILICAL PORTION OF MIDLINE WOUND, I REMOVED THE RICHIE FROM THE 3 CM SECTION OF THE INFRAUMBILICAL WOUND AND EVACUATED ABOUT 30 CC OF THIS FLUID AND INSTRUCTED THE NURSE TO PLACE A STOMA APPLIANCE ON THIS OPENING. 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 TODAY HER WBC IS ELEVATED, ABDOMEN CONTINUES TO BE NON DISTENDED, SOFT, BUT SHE DOES HAVE SLIGHT TENDERNESS IN THE PERIUMBILICAL AREA. I WILL TREAT THIS EXPECTANTLY FORM THE TIME BEING IN THE HOPE THAT THIS IS A "CONTROLLED" FISTULA AND HOPEFUL WILL HEAL SPONTANEOUSLY WITH NPO AND NUTRITIONAL SUPPORT. WILL WATCH CLOSELY, AFTER A FEW DAYS WILL GET A FISTULOGRAM TO PIN POINT THE ENTERIC ORIGIN OF THE FISTULIZATION. CONTINUE NGT SUCTION AND DRAIN IRRIGATION ORDERED02/05/25 02/05/25 remains sedated and intubated?ventilated, abdomen non distended soft, wound vac in place. TATY drainage serosanguineous 02/08/25 EXTUBATED, GOOD INSPIRATORY EFFORT, BP NML WITHOUT PRESSOR SUPPORT, ABDOMEN SOFT, NON DISTENDED, APPROPRIATELY TENDER, LABS REVIEWED. NO CHANGES TODAY OTHER THAN ALLOW ICE CHIPS PO. WILL ORDER GASTROGRAFIN SMALL BOWEL FOLLOWTHROUGH FOR Friday02/09/25 awake cooperative, wound vac in place, abdomen soft, non distended, appropriately tender, TATY drainage brownish discoloration, will irrigate, her WBC is normal and she is afebrile and normotensive. gastrografin tomorrow 02/10/25 AWAKE,COMFORTABLE, DENIES PAIN, ABDOMEN NON DISTENDED APPROPRIATELY TENDER, WOUND CLEAN AND WELL APPROXIMATED, DRAINS BEING IRRIGATED, LABS OK, GOOD URINE OUTPUT. "SURGICALLY" STABLE 02/11/25 feels well, passing flatus. is hungry, abdomen soft non distended, drainage clearing with irrigation, will wait for Gastrografin small bowel series to be completed, if normal will start po clear liquids 02/12/25 no nausea, change in TATY drainage colort, appears to contaIN, BILE, WILL DC po CLEAR LIQUIDS, CONTINUE ICE CGHIPS, SEND DRAin fluid for amylase and bilirubin, 02/13/25 states she feels well, abdomen non tender, non distended, wound clean and well approximated. drainage slightly clearer, keep npo for now, needs to resume TPN 02/14/25 PATIENT C/O BEING COLD BUT HAS NO PAIN, DRAINAGE SEEMS TO BE CLEARING, SHE HAD A BOWEL MOVEMENTS, ABDOMEN IS SOFT AND NON TENDER, NON DISTENDED, WOUND IS CLEAN AND WELL APPROXIMATED, WILL CONTINUE NPO STATUS AMYLASE ON TATY DRAINAGE FLUID IS GOING TO TAKE SEVERAL DAYS TO BECOME AVAILABLE. CONTINUE TPN 02/16/25 DENIES PAIN,STATES SHE FEELS BETTER, WOUND VAC IN PLACE, ABDOMEN NON TENDER,NON DISTENDED, TATY DRAINAGE SMALL TO MODERATE , WILL CONTINUE IRRIGATING DRAINS, WILL REQUEST GI CONSULT TO CONSIDER ENDOSCOPY. WBC NL,H/H STABLE , ALBUMIN STILL VERY LOW. , Plan discussed with: Patient, Other Dietary Evaluation Review Comments: Nutrition Recommendation: 1) TPN to meet at least 75% estimated needs within 7 days 2) Monitor NPO status, lab values, wt trend, I/O Expected Outcomes/Goals: To meet >75% estimated needs Lab values to improve Fu 2-3 days MELVA RAMESH MD Feb 16, 2025 07:30
[2025-02-16] MEDS: SODIUM PHOSPHATES 20 MEQ in SODIUM CHL 0.9% 100 ML IV ONE (10:24)
--- NOTE | 2025-02-16 14:15 | DVH ---
Indication: F/O OPERATION Technique: CT axial images of the abdomen and pelvis are obtained with intravenous contrast. Coronal and sagittal reformats were obtained. Radiation Dose Information: CTDI volume is 12 mGy. Dose-length product is 671 mGy*cm Comparison: None FINDINGS: The lung bases demonstrate bibasilar atelectasis. Left lower lobe consolidation. Small left pleural effusion, tiny right pleural effusion. Adrenal glands unremarkable. Perisplenic catheter. Similar-appearing splenic laceration measuring 2.2 cm in parenchymal depth. Left subdiaphragmatic/splenic subcapsular collection measuring 7.1 x 1.1 cm with the pigtail catheter situated appropriately within the collection. Pancreas unremarkable. No enhancing hepatic lesion. No CT evidence for cholelithiasis. Right posteri or perihepatic small collection measuring 1.4 x 1.7 cm, previously 3.1 x 1.8 cm. Kidneys demonstrate no hydronephrosis. Region of Left renal anterior pole nonenhancing measuring 2.7 by 1.1 cm Stomach is partially distended. The small bowel loops are moderately distended. There are left abdom inal drainage catheters. There is pneumoperitoneum.. There is possibly a small amount of extralumin al contrast in the region of the pneumoperitoneum, axial image 51. Small fluid collection surrounding the proximal right surgical drainage catheter measuring 1.5 x 1.6 cm, axial image 51 of 101. Colonic diverticular disease. There is moderate bowel wall thickening with surrounding stranding invo lving the ascending colon. Abdominal aortic atherosclerotic disease and tortuosity. Small amount of free pelvic fluid. There are pelvic drainage catheters. No inguinal lymphadenopathy. [id number] bilateral sacroiliac degenerative joint disease. Moderate to advanced thoracolumbar degenerative disc disease. Thoracolumbar levocurvature. IMPRESSION: Left abdominal pneumoperitoneum which overall appears similar/slightly more pronounced than on the ex amination from 01/29/2025. There appears to be a small amount of extraluminal contrast, overall diff icult to characterize due to the adjacent drainage catheters and bowel, raising concern for possible continued leakage. Recommend follow-up CT abdomen pelvis without oral and IV contrast in 6-12 hours t o evaluate and see if this contrast persists versus represents contrast within collapsed bowel. Perisplenic subcapsular collection/subdiaphragmatic collection measuring 7.1 x 1.1 cm with pigtail ca theter in the collection overall decreased in size from previous examination. Stable appearing spleni c laceration. Posterior right hepatic lobe small collection measuring 1.4 x 1.7 cm, previously 3.1 x 1.8 cm. Small left and tiny right pleural effusions. Left lower lobe consolidation/atelectasis. Region of Left renal anterior pole non enhancement measuring 2.7 x 1.1 cm could represent infarction, contusion, acute tubular necrosis. Bowel wall thickening of the ascending colon with differential considerations including colitis, infl ammatory disease. Small amount of free pelvic fluid. Findings as described.
--- NOTE | 2025-02-16 17:18 | DVHPNRES ---
Progress Note Date Seen: Feb 16, 2025 Resident Creating Document: GIGI FELIZ RESJIMYENT Has the PT tested + for MRSA If YES, has PT been informed?: No Medical Necessity Reason Pt with a Central, PICC or Fol: Yes The following are medically ne: PICC Line, Leach Catheter Reason for leach catheter: Strict I&O Subjective Review of Systems Patient Is seen and examined at the bedside. Patient extubated on 02/08. Status post extubation, patient can maintain oxygen through nasal cannula. Alert awake and oriented, not have any active compl Objective vital signs Vital Sign Date Time Temp Pulse Resp B/P (MAP) Pulse Ox O2 Delivery O2 Flow Rate FiO2 02/16/25 15:10 98 156/77 02/16/25 15:00 15 99 02/16/25 14:00 Room Air* 0 21 02/16/25 12:06 98.3 98.3 Total Intake and Output 02/15/25 02/15/25 02/16/25 15:00 23:00 07:00 Intake Total 655.25 ml 603.50 ml 245 ml Output Total 1160 ml 1400 ml Balance 655.25 ml -556.50 ml -1155 ml medications Current Medications Medications Dose Ordered Sig/Isaura Route Start Time Stop Time Status Last Admin Dose Admin Cefazolin Sodium 50 ml @ 100 mls/hr Q8HR IV 01/13/25 14:00 UNV Vasopressin 20 units/Sodium Chloride 100 ml @ 9 mls/hr Q11H7M IV 01/13/25 18:45 UNV Potassium Chloride 100 ml @ 50 mls/hr Q2H IV 01/16/25 12:45 01/16/25 18:44 UNV Vancomycin HCl 100 ml @ 100 mls/hr DAILY@1200 IV 01/20/25 12:00 UNV Sodium Chloride 10 ml QSHIFT@10,22 IV 01/26/25 22:00 02/16/25 09:06 10 ML Diagnostic Test (Pha) 1 strip Q6HR 01/31/25 18:00 02/16/25 12:11 1 STRIP Insulin Human Regular FOLLOW SLIDING SCALE Q6HR SC 01/31/25 18:00 02/16/25 12:25 2 UNITS Dextrose 50 ml UD IV 01/31/25 17:00 02/12/25 17:42 50 ML Morphine Sulfate 2 mg Q4HPRN PRN IV 02/08/25 09:45 02/16/25 13:08 2 MG Clonidine HCl 0.1 mg Q7D TD 02/08/25 12:30 02/15/25 14:20 0.1 MG Labetalol HCl 10 mg Q4HP PRN IV 02/08/25 12:30 02/16/25 15:10 10 MG Amino Acids 0 ml @ 0 mls/hr PER PHARMACY IV 02/13/25 10:45 Enoxaparin Sodium 40 mg DAILY SC 02/13/25 15:00 02/16/25 09:07 40 MG Fat Emulsion Intravenous 100 ml/Potassium Acetate 20 meq/ Potassium Phosphate 30 meq/ Magnesium Sulfate 8 meq/ Multivitamins 10 ml/Insulin Human Regular 5 units/ Amino Acids/ Dextrose 1,178.8682 ml @ 49 mls/hr Q24H4M IV 02/15/25 22:00 02/16/25 21:59 02/15/25 22:12 49 MLS/HR Fat Emulsion Intravenous 100 ml/Potassium Acetate 20 meq/ Potassium Phosphate 30 meq/ Magnesium Sulfate 8 meq/ Multivitamins 10 ml/Insulin Human Regular 7 units/ Amino Acids/ Dextrose 1,178.8882 ml @ 49 mls/hr Q24H4M IV 02/16/25 22:00 02/17/25 21:59 Examination General Appearance: Alert, Oriented X3, Cooperative, No acute distress HEENT: Atraumatic, PERRLA, EOMI, Mucous membrane moist/pink Respiratory: Clear to auscultation, Normal air movement Cardiovascular: Regular rate, Normal S1, Normal S2, No murmurs, no chest wall tenderness Abdominal: Mild abdominal tenderness, with wound VAC at the midline, for CARMEN drain at 4 quadrant, draining brownish fluid Extremities: No clubbing, No cyanosis, No edema, Normal pulses, No tenderness/swelling Skin: No rashes, No breakdown, No significant lesion Neuro: Grossly intact Psych/Mental Status: Mental status NL, Mood NL laboratory and microbiology Laboratory Tests 02/16/25 03:30 Test 02/16/25 03:30 Range/Units Serum Glucose 129 H 74-106 mg/dL Microbiology Date/Time Source Procedure Growth Status 02/15/25 10:12 Urine - [place] Urine Culture - Preliminary Resulted 01/31/25 13:30 Aspirate Gram Stain - Final Complete 01/31/25 13:30 Aspirate Body Fluid Culture - Final Complete 01/29/25 14:00 Sputum Gram Stain - Final Complete 01/29/25 14:00 Respiratory Culture - Final Presumptive Zoe albicans Complete 01/29/25 10:40 Blood Blood Culture - Final NO GROWTH AFTER 5 DAYS OF INCUBATION. Complete 01/13/25 17:10 Nose MRSA Screen - Final Complete Labs and/or images reviewed: Labs reviewed by me, Image(s) reviewed by me Problem List/Assessment/Plan Problem List/Assessment/Plan This is a 80-year-old lady with past medical history of hypertension, AFib (on Eliquis), diabetes type 2, CKD, came to the hospital due to abdominal pain, and constipation. Admitted on 01/13/2025. Found to have peritonitis due to bowel perforation, and underwent emergent laparotomy with subsequent resection of perforated small bowel and enteroenterostomy. Due to abnormal CARMEN drainage, second exploratory laparotomy performed on 02/04 and found to have perforation near to previous perforation area, underwent resection of area with subsequent anastomosis of proximal jejunal loops. Extubated on 02/07. 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 PULMONARY: Acute hypoxic respiratory failure secondary to bilateral pleural effusion/pneumonia Chest x-ray demonstrated bilateral hazy opacities * Sputum culture from 01/29 shows presumptive Zoe albicans * Status post extubation, on nasal cannula * Plan: Physiotherapy GASTROINTESTINAL: Peritonitis due to Perforation of the small bowel, status post exploratory laparotomy Transaminitis secondary to shock Perisplenic abscess * Peritoneal fluid culture from 01/13 shows E coli and Klebsiella pneumoniae sensitive to meropenem (given for 11 days, stopped on 01/31) * CT scan on 01/31 shows, moderate sized fluid collection in the perisplenic region * IR consulted, put pigtail drain, and has drained 50 cc purulent fluid * Patient has brownish discharge of the drain * Small bowel series, normal study * Patient has leakage from surgical area and drainage * Second laparotomy, performed on 02/04, lysis of adhesions, evacuation of pelvic and abdominal infection, resection of proximal jejunum, ileostomy, and jejunostomy and put for CARMEN drains at 4 quadrants * Small bowel series on 02/11, normal study, per surgery okay to start clear liquid diet * CT abdominopelvic on 02/16 showed, left abdominal pneumoperitoneum which overall appears similar/slightly more pronounced than on the examination from 01/29/2025, appears to be a small amount of extraluminal contrast,and perisplenic subcapsular collection/subdiaphragmatic collection measuring 7.1 x 1.1 cm * Plan: NPO, TPN GENITOURINARY: ISRRAEL likely due to shock/VMN, resolved * Monitoring ENDOCRINE: History of hypothyroidism Type 2 diabetes mellitus, hemoglobin A1c 8.2 * Few episodes of hypoglycemia * TSH is raised at 16.29, normal free T4 METABOLIC: Hypokalemia Hyperkalemia Hyponatremia, Nephrology recommended D5W at 75 mL/hour Severe metabolic protein malnutrition * Anion gap metabolic acidosis secondary to bowel ischemia leading to lactic acidosis HEME: Acute on chronic anemia secondary to hemodilution/post surgical 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 * 5 unit of PRBC, 2 pt of platelet, has been given INFECTIOUS DISEASE: Sepsis with septic shock secondary to perforation of the small bowel * Blood culture from 01/29 preliminary result shows Gram-positive rods (1/4 sets of blood culture) * Discontinued levofloxacin Flagyl on 02/03 * Discontine vancomycin and meropenem started on 02/03 given up to 02/13 MUSCULOSKELETAL: Rib fracture, due to fall DIET: Clear liquid diet DVT prophylax: Hold GI prophylaxis: Pantoprazole Bowel regimen: Code status: Full code LINES/DRAINS/ACCESS: ETT: Intubated on 01/14/25, extubated on 02/07 IV access: Rt upper thigh PICC placed on 01/26/2025 Drips: off from pressor and sedatives Leach catheter: Placed on 01/14, exchange on 02/14 CARMEN drainage: Four CARMEN drain in 4 quadrants of abdomen DISPOSITION: Downgraded to SHERRY Patient's status discussed with patient and patient's son at the bedside. Critical care time spent more than 57 minutes, including patient care, chart review, and updating the family. Excluding any procedures. Case discussed with Dr. Self Plan discussed with: Patient, Other Dietary Evaluation Review Comments: Nutrition Recommendation: 1) TPN to meet at least 75% estimated needs within 7 days 2) Monitor NPO status, lab values, wt trend, I/O Expected Outcomes/Goals: To meet >75% estimated needs Lab values to improve Fu 2-3 days CC Plasma Assessment Blood Product Administration S: [id number] Date of Service: Feb 16, 2025 Billing Provider: ZBIGNIEW SELF MD Common Visit Codes: [id number] CARE 30-74 MIN GIGI FELIZ Feb 16, 2025 17:18 ZBIGNIEW SELF MD Feb 17, 2025 11:59
[2025-02-16] MEDS: IOHEXOL 300 MG/ML 100ML BOTTLE IJ ONE (19:30)
[2025-02-16] MEDS: OMNIPAQUE 12mg/ml 500ml ORAL SOLUTION PO ONE (19:31)
--- NOTE | 2025-02-16 20:36 | DVHINCON2 ---
Date of service: Feb 16, [address] Christian Christy Reason for Consultation Possible endoscopy History of Present Illness 80-year-old lady admitted with perforated bowel peritonitis for which she has undergone two laparotomies on 01/13 and PROCEDURES: Exploratory laparotomy, lysis of adhesions, evacuation of pelvic and abdominal infection, resection of proximal jejunum, ileoileostomy, and jejunojejunostomy. Patient has a CARMEN drain in place There was concern for ongoing pneumoperitoneum. 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, hypertension, atrial fibrillation Past Surgical History Laparotomy x 2 Allergies: Coded Allergies: NO KNOWN ALLERGIES (Unverified , 01/12/25) Home Meds Reported Medications Metoprolol Tartrate (Lopressor) 25 Mg Tb, 1 TAB PO BID 01/13/25 Levothyroxine Sodium (Levothyroxine Sodium) 50 Mcg Tab, 1 TAB PO QAM 01/13/25 Nortriptyline HCl (Nortriptyline Hydrochlori) 10 Mg Cap, 2 CAP PO 01/13/25 Current Medications Current Medications Medications (Trade) Dose Ordered Sig/Isaura Route PRN Reason Start Time Stop Time Status Last Admin Fat Emulsion Intravenous 100 ml/Potassium Acetate 20 meq/ Potassium Phosphate 30 meq/ Magnesium Sulfate 8 meq/ Multivitamins 10 ml/Insulin Human Regular 5 units/ Amino Acids/ Dextrose 1,178.8682 ml @ 49 mls/hr Q24H4M IV 02/15/25 22:00 02/16/25 21:59 02/15/25 22:12 Fat Emulsion Intravenous 100 ml/Potassium Acetate 20 meq/ Potassium Phosphate 30 meq/ Magnesium Sulfate 8 meq/ Multivitamins 10 ml/Insulin Human Regular 7 units/ Amino Acids/ Dextrose 1,178.8882 ml @ 49 mls/hr Q24H4M IV 02/16/25 22:00 02/17/25 21:59 Vital Signs Vital Signs Date Time Temp Pulse Resp B/P (MAP) Pulse Ox O2 Delivery O2 Flow Rate FiO2 02/16/25 18:38 95 16 137/56 02/16/25 18:00 98 02/16/25 18:00 Room Air* 0 21 02/16/25 16:00 99.7 99.7 Physical Exam General Appearance: Alert, Oriented X3, Cooperative, No acute distress HEENT: Atraumatic, PERRLA, EOMI, Mucous membrane moist/pink Respiratory: Clear to auscultation, Normal air movement Cardiovascular: Regular rate, Normal S1, Normal S2, No murmurs, no chest wall tenderness Abdominal: Mild abdominal tenderness, with wound VAC at the midline, for CARMEN drain at 4 quadrant, draining brownish fluid Extremities: No clubbing, No cyanosis, No edema, Normal pulses, No tenderness/swelling Skin: No rashes, No breakdown, No significant lesion Neuro: Grossly intact Psych/Mental Status: Mental status NL, Mood NL Labs/Diagnostic Data Labs Test 02/16/25 17:44 02/16/25 03:30 02/15/25 03:20 02/12/25 12:00 Range/Units POC Glucose 141 H 70-106 mg/dl White Blood Count 7.7 4.4-10.8 10^3/uL Red Blood Count 3.01 L 4.0-5.20 10^6/uL Hemoglobin 9.0 L 12.2-16.2 g/dL Hematocrit 27.0 L 36.0-46.0 % Mean Corpuscular Volume 89.5 80.0-100.0 fL Mean Corpuscular Hemoglobin 29.8 28.0-32.0 pg Mean Corpuscular Hemoglobin Concent 33.2 32.0-36.0 g/dL Red Cell Distribution Width 19.3 H 11.8-14.3 % Platelet Count 162 140-450 10^3/uL Mean Platelet Volume 10.3 6.9-10.8 fL Neutrophils (%) (Auto) 65.3 37.0-80.0 % Lymphocytes (%) (Auto) 24.8 10.0-50.0 % Monocytes (%) (Auto) 8.1 0.0-12.0 % Eosinophils (%) (Auto) 1.0 0.0-7.0 % Basophils (%) (Auto) 0.8 0.0-2.0 % Neutrophils # (Auto) 5.0 1.6-8.6 10 ^3/uL Lymphocytes # (Auto) 1.9 0.4-5.4 10 ^3/uL Monocytes # (Auto) 0.6 0-1.3 10 ^3/uL Eosinophils # (Auto) 0.1 0-0.8 10 ^3/uL Basophils # (Auto) 0.1 0-0.2 10 ^3/uL Nucleated Red Blood Cells 0.1 % Sodium Level 141 136-145 mmol/L Potassium Level 4.1 3.5-5.1 mmol/L Chloride Level 110 H 98-107 mmol/L Carbon Dioxide Level 21 20-31 mmol/L Anion Gap 10 5-15 Blood Urea Nitrogen 32 H 9-23 mg/dL Creatinine 0.64 0.550-1.02 mg/dL Glomerular Filtration Rate Calc 90 >90 mL/min BUN/Creatinine Ratio 50.0 H 10.0-20.0 Serum Glucose 129 H 74-106 mg/dL Calcium Level 7.9 L 8.7-10.4 mg/dL Phosphorus Level 2.3 L 2.4-5.1 mg/dL Magnesium Level 2.1 1.6-2.6 mg/dL Total Bilirubin 1.4 H 0.2-1.0 mg/dL Aspartate Amino Transferase (AST) 55 H 13-40 U/L Alanine Aminotransferase (ALT) 31 7-40 U/L Alkaline Phosphatase 321 H 46-116 U/L Total Protein 5.8 5.7-8.2 g/dL Albumin 2.3 L 3.2-4.8 g/dL Triglycerides Level 154 H < 150 mg/dL Random Vancomycin Level 15.1 H 5-10 ug/mL Miscellaneous Referred Test (Rm Tmp Sent to [facility] Test 02/07/25 08:22 02/06/25 07:19 02/05/25 18:51 02/05/25 03:00 Range/Units Blood Gas Specimen Type Arterial Blood Gas Sample Site Right radial Blood Gas Patient Temperature 37.0 Arterial Blood Date Drawn [id number] Arterial Blood pH 7.426 7.350-7.450 Arterial Blood Partial Pressure CO2 33.8 32.0-45.0 mmHg Arterial Blood Partial Pressure O2 88.0 83.0-108.0 mmHg Arterial Blood HCO3 21.7 21.0-28.0 mmol/L Arterial Blood Oxygen Saturation 96.4 94.0-98.0 % Arterial Blood Base Excess -2.1 L -2.0-3.0 mmol/L Arterial Blood Oxyhemoglobin 96.1 94.0-98.0 % Arterial Blood Carboxyhemoglobin 0.2 L 0.5-1.5 % Arterial Blood Methemoglobin 0.1 0.0-1.5 % Syed Test Modified Blood Gas Total Hemoglobin 10.30 L 12.0-16.0 g/dL Blood Gas Modality Vent - cpap FiO2 % 30.0 Blood Gas Comments Cpap ps 8/+5 Blood Gas Set Respiration Rate 12.0 Blood Gas Spontaneous Rate 20 Blood Gas Tidal Volume 450.0 Blood Gas PEEP or CPAP 5.0 Vancomycin Level Trough 18.1 H 5-10 ug/mL Differential Total Cells Counted 100.0 100 Neutrophils % (Manual) 90 H 37.0-80.0 Band Neutrophils % (Manual) 1 Lymphocytes % (Manual) 0 L 10.0-50.0 Monocytes % (Manual) 9 0-12 Eosinophils % (Manual) 0 0-7 Basophils % (Manual) 0 0.0-2.0 Metamyelocytes % (manual) 0 Myelocytes % (Manual) 0 Promyelocytes % (Manual) 0 Blast Cells % (Manual) 0 Reactive Lymphocytes 0 Platelet Estimate Decreased Test 02/04/25 06:40 02/01/25 03:30 01/30/25 12:35 01/29/25 01:00 Range/Units Prothrombin Time 17.5 H 9.3-11.8 sec Prothrombin Time INR 1.74 H 0.9-1.15 Activated Partial Thromboplast Time 51.8 H 24.5-34.5 SEC Iron Level 30 L 50-170 ug/dL Total Iron Binding Capacity 163 L 250-425 ug/dL Percent Iron Saturation 18.4 15-50 % Ferritin 250.4 10-291 ng/mL Prealbumin < 3.0 L 10.0-40.0 md/dL Thyroid Stimulating Hormone (TSH) 16.29 H 0.55-4.78 uIU/mL Free Thyroxine (T4) Calculated 0.99 0.89-1.76 ng/dL Blood Gas Pressure Support 8 Lactic Acid Level 1.7 0.4-2.0 mmol/L Test 01/21/25 03:06 01/20/25 00:57 01/18/25 03:15 01/17/25 11:20 Range/Units B-Type Natriuretic Peptide 108.02 0-100 pg/mL Lactate Dehydrogenase 665 H 120-246 U/L Large Platelets Few Anisocytosis (manual) Slight Haptoglobin 160 42-346 mg/dL Fibrinogen 256 177-375 mg/dL D-Dimer, Quantitative 27.68 H 0.0-0.49 mg/L FEU Test 01/16/25 12:05 01/14/25 02:00 01/13/25 19:04 01/13/25 07:59 Range/Units Blood Gas Critical Value Read Back Yes Blood Gas Notified Whom Dr. solorzano Blood Gas Notified Time [id number] Blood Gas Notified By Jose norris, iván Urine Color Yellow Yellow Urine Clarity Turbid H Clear Urine pH 6.0 5.0-9.0 Urine Specific Magazine 1.016 1.001-1.035 Urine Protein 1+ H Negative Urine Ketones Trace Negative Urine Blood 1+ H Negative /uL Urine Nitrite Negative Negative Urine Bilirubin Negative Negative Urine Urobilinogen Normal Negative mg/dL Urine Leukocyte Esterase Negative Negative /uL Urine RBC 10 0 - 4 /hpf Urine Microscopic WBC 2 0-5 /HPF Urine Squamous Epithelial Cells Few <5 /hpf Urine Amorphous Crystals Few None Seen /hpf Urine Bacteria None seen None Seen /hpf Urine Creatinine 34.09 30.0-125.0 mg/dL Urine Protein/Creatinine Ratio 3.85 Urine Sodium 76 40-220 mmol/L Urine Glucose Normal Normal mg/dL Urine Total Protein 131.1 H 1-14 mg/dL Rheumatoid Factor 18.9 H <14.0 IU/mL Anti-Nuclear Antibody Screen Negative Negative Cytoplasmic ANCA (c-ANCA) Antibody <1:20 Neg:<1:20 titer Atypical p-ANCA <1:20 Neg:<1:20 titer Perinuclear ANCA (p-ANCA) Antibody <1:20 Neg:<1:20 titer Complement C3 112 82-167 mg/dL Complement C4 20 12-38 mg/dL [place] Cells Few Hemoglobin A1c 8.2 H <5.7 % A1C Cholesterol Level 81 < 200 mg/dL LDL Cholesterol 22 < 100 mg/dL HDL Cholesterol 14 L 40-59 mg/dL Test 01/12/25 21:30 Range/Units Lipase 21 12-53 U/L Microbiology Date/Time Source Procedure Growth Status 02/15/25 10:12 Urine - [place] Urine Culture - Preliminary Resulted 01/31/25 13:30 Aspirate Gram Stain - Final Complete 01/31/25 13:30 Aspirate Body Fluid Culture - Final Complete 01/29/25 14:00 Sputum Gram Stain - Final Complete 01/29/25 14:00 Respiratory Culture - Final Presumptive Zoe albicans Complete 01/29/25 10:40 Blood Blood Culture - Final NO GROWTH AFTER 5 DAYS OF INCUBATION. Complete 01/13/25 17:10 Nose MRSA Screen - Final Complete CT SCAN ABD PELVIS IMPRESSION: Left abdominal pneumoperitoneum which overall appears similar/slightly more pronounced than on the examination from 01/29/2025. There appears to be a small amount of extraluminal contrast, overall difficult to characterize due to the adjacent drainage catheters and bowel, raising concern for possible continued leakage. Recommend follow-up CT abdomen pelvis without oral and IV contrast in 6-12 hours to evaluate and see if this contrast persists versus represents contrast within collapsed bowel. Perisplenic subcapsular collection/subdiaphragmatic collection measuring 7.1 x 1.1 cm with pigtail catheter in the collection overall decreased in size from previous examination. Stable appearing splenic laceration. Posterior right hepatic lobe small collection measuring 1.4 x 1.7 cm, previously 3.1 x 1.8 cm. Small left and tiny right pleural effusions. Left lower lobe consolidation/atelectasis. Region of Left renal anterior pole non enhancement measuring 2.7 x 1.1 cm could represent infarction, contusion, acute tubular necrosis. Bowel wall thickening of the ascending colon with differential considerations including colitis, inflammatory disease. Small amount of free pelvic fluid. Findings as described.. Chest Abd X Ray Impression: 1. Nonobstructive bowel gas pattern. Near-complete passage of previously administered enteric contrast from 4 days prior. Problems(with codes): (1) Acute renal injury (2) Intestinal perforation (3) Ischemic bowel disease Plan/Recommendation Plan I do not believe it would be safe to proceed with an endoscopy with insufflation that could worsen a possible partially sealed perforation Continue IV Protonix 40 mg q.12 hours Continue IV TPN Continue IV antibiotics A possible Gastrografin upper GI can be considered Plan discussed with: Patient, Other (ICU Nurse) FRANCISCA RODRÍGUEZ MD Feb 16, 2025 20:36
[2025-02-16] MEDS: TPN PER PHARMACY IV NR (21:47)
[2025-02-17] VITALS (25 sets, daily range): BP systolic 95–142; BP diastolic 44–73; PULSE 94–118; RESP 14–22; TEMP 98.1–99; O2SAT 90–100
[2025-02-17 03:48] LABS: Hematocrit 26.9 % (36.0-46.0); Hemoglobin 8.8 g/dL (12.2-16.2); Mean Corpuscular Hemoglobin 29.9 pg (28.0-32.0); Mean Corpuscular Volume 91.5 fL (80.0-100.0); Nucleated Red Blood Cells % 0.1 %
[2025-02-17 04:16] LABS: Alanine Aminotransferase 29 U/L (7-40); Anion Gap 9 (5-15); BUN/Creatinine Ratio 49.3 (10.0-20.0); Carbon Dioxide 22 mmol/L (20-31); Magnesium 2.2 mg/dL (1.6-2.6); Potassium 4.0 mmol/L (3.5-5.1); Sodium 138 mmol/L (136-145)
[2025-02-17 04:17] LABS: Total Protein 5.8 g/dL (5.7-8.2)
[2025-02-17 04:18] LABS: Albumin 2.3 g/dL (3.2-4.8); Alkaline Phosphatase 271 U/L (46-116); Blood Urea Nitrogen 34 mg/dL (9-23); Calcium 8.2 mg/dL (8.7-10.4); Chloride 107 mmol/L (98-107); Glucose 113 mg/dL (74-106)
[2025-02-17 04:29] LABS: Bilirubin, Total 1.2 mg/dL (0.2-1.0)
--- NOTE | 2025-02-17 07:13 | DVHPN2 ---
Progress Note Date Seen: Feb 17, 2025 Has the PT tested + for MRSA If YES, has PT been informed?: No Medical Necessity Reason Pt with a Central, PICC or Fol: Yes The following are medically ne: PICC Line, Leach Catheter Reason for leach catheter: Strict I&O Objective vital signs Vital Sign Date Time Temp Pulse Resp B/P (MAP) Pulse Ox O2 Delivery O2 Flow Rate FiO2 02/17/25 06:08 99 14 117/66 02/17/25 06:00 96 02/17/25 06:00 Room Air* 0 21 02/17/25 02:00 98.1 98.1 Total Intake and Output 02/16/25 02/16/25 02/17/25 15:00 23:00 07:00 Intake Total 392 ml 752 ml 343 ml Output Total 1682 ml 1060 ml Balance 392 ml -930 ml -717 ml medications Current Medications Medications Dose Ordered Sig/Isaura Route Start Time Stop Time Status Last Admin Dose Admin Cefazolin Sodium 50 ml @ 100 mls/hr Q8HR IV 01/13/25 14:00 UNV Vasopressin 20 units/Sodium Chloride 100 ml @ 9 mls/hr Q11H7M IV 01/13/25 18:45 UNV Potassium Chloride 100 ml @ 50 mls/hr Q2H IV 01/16/25 12:45 01/16/25 18:44 UNV Vancomycin HCl 100 ml @ 100 mls/hr DAILY@1200 IV 01/20/25 12:00 UNV Sodium Chloride 10 ml QSHIFT@10,22 IV 01/26/25 22:00 02/16/25 21:51 10 ML Diagnostic Test (Pha) 1 strip Q6HR 01/31/25 18:00 02/17/25 05:38 1 STRIP Insulin Human Regular FOLLOW SLIDING SCALE Q6HR SC 01/31/25 18:00 02/17/25 05:40 2 UNITS Dextrose 50 ml UD IV 01/31/25 17:00 02/12/25 17:42 50 ML Morphine Sulfate 2 mg Q4HPRN PRN IV 02/08/25 09:45 02/17/25 05:38 2 MG Clonidine HCl 0.1 mg Q7D TD 02/08/25 12:30 02/15/25 14:20 0.1 MG Labetalol HCl 10 mg Q4HP PRN IV 02/08/25 12:30 02/16/25 15:10 10 MG Amino Acids 0 ml @ 0 mls/hr PER PHARMACY IV 02/13/25 10:45 Enoxaparin Sodium 40 mg DAILY SC 02/13/25 15:00 02/16/25 09:07 40 MG Fat Emulsion Intravenous 100 ml/Potassium Acetate 20 meq/ Potassium Phosphate 30 meq/ Magnesium Sulfate 8 meq/ Multivitamins 10 ml/Insulin Human Regular 7 units/ Amino Acids/ Dextrose 1,178.8882 ml @ 49 mls/hr Q24H4M IV 02/16/25 22:00 02/17/25 21:59 02/16/25 21:47 49 MLS/HR laboratory and microbiology Laboratory Tests 02/17/25 03:06 Test 02/17/25 03:06 Range/Units Serum Glucose 113 H 74-106 mg/dL Problem List/Assessment/Plan Problem List/Assessment/Plan 01/14/25 afebrile, low dose BP support, received transfusion, I believe her decreased hematocrit is due to hemodilution. abdomen non distended, soft, wound clean and well approximated, drainage serous . remains intubated and sedated 01/16/25 ALKALOSIS, ABDOMEN NON DISTENDED, SOFT, DRAINAGE SEROUS, WOUND CLEAN AND WELL APPROXIMATED 01/17/25 improved, thrombocytopenia possibly made worse by Fluconazole,will DC, abdomen non distended, wound well approximated without infection, TATY drainage serous, CVP 6, good urine output. 01/18/25 abg reviewed, ,abdomen soft, non distended, TATY drainage clear serous, no bowel activity, febrile, urine output ok, continues with thrombocytopenia,pt and inr slightly elevated. prognosis grave. 01/20/25remains sedated on ventilator, abdomen soft, non distended, faint bowel sounds auscultated by nurse, wound clean and well approximated, TATY drainage clear serous. continues with thrombocytopenia, still behind on intravascular volume( BUN and Creatinine elevated), i would give more IV fluids and DC vancomycin. 01/25/25 afebrile, normotensive, wound clean and well approximated, TATY drainage serous, abdomen non distended, soft, gastrografin small bowel series shows non obstructed GI tract and no evidence of extravasation. It is OK to initiate enteric feedings. 01/29/25 16 DAYS POST OPERATIVELY TRHE TATY DRAINAGE WHICH HAD CONSISTENTLY BEEN SEROUS OR SERO SANGUINEOUS HAS BECOME "DIRTY" BROWNISH DISCOLORATION, HER WOUND IS CLEAN AND WELL APPROXIMATED AND HER ABDOMEN IS SOFT AND NON DISTENDED, CT SCAN SHOWS SO0ME FLUID AND ACCUMULATION OF FLUID AROUND THE SPLEEN, WILL REQUEST CT GUIDED ASPIRATION OF SAME, WILL ORDER IRRIGATION OF DRAINS. SHE SI AFEBRILE AND MAINTAINS NORMAL BLOOD PRESSURE, HER WBC IS NORMAL. 01/30/25 improved, awake, being weaned off vent. abdomen non distended, non tender, taty drainage clearing with irrigation 02/02/25clinically unchanged, gastrografin small bowel series reported and normal, no extravasation reported, will order a follow ujp KUB for tomorrow AM 02/03/25 PATIENT HAD A GASTROGRAFIN SMALL BOWEL SERIES AND A FOLLOW UP KUB X RAYS NEITHER ONE OF WHICH SHOW EXTRAVASATION OF CONTRAST OR EVIDENCE OF FREE CONTRAST IN THE PERITONEAL CAVITY. THERE IS HOWEVER VISCOUS, BROWNISH FLUID DRAINING VIA BOTH TATY DRAINS AND THROUGH INFRAUMBILICAL PORTION OF MIDLINE WOUND, I REMOVED THE RICHIE FROM THE 3 CM SECTION OF THE INFRAUMBILICAL WOUND AND EVACUATED ABOUT 30 CC OF THIS FLUID AND INSTRUCTED THE NURSE TO PLACE A STOMA APPLIANCE ON THIS OPENING. 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 TODAY HER WBC IS ELEVATED, ABDOMEN CONTINUES TO BE NON DISTENDED, SOFT, BUT SHE DOES HAVE SLIGHT TENDERNESS IN THE PERIUMBILICAL AREA. I WILL TREAT THIS EXPECTANTLY FORM THE TIME BEING IN THE HOPE THAT THIS IS A "CONTROLLED" FISTULA AND HOPEFUL WILL HEAL SPONTANEOUSLY WITH NPO AND NUTRITIONAL SUPPORT. WILL WATCH CLOSELY, AFTER A FEW DAYS WILL GET A FISTULOGRAM TO PIN POINT THE ENTERIC ORIGIN OF THE FISTULIZATION. CONTINUE NGT SUCTION AND DRAIN IRRIGATION ORDERED02/05/25 02/05/25 remains sedated and intubated?ventilated, abdomen non distended soft, wound vac in place. TATY drainage serosanguineous 02/08/25 EXTUBATED, GOOD INSPIRATORY EFFORT, BP NML WITHOUT PRESSOR SUPPORT, ABDOMEN SOFT, NON DISTENDED, APPROPRIATELY TENDER, LABS REVIEWED. NO CHANGES TODAY OTHER THAN ALLOW ICE CHIPS PO. WILL ORDER GASTROGRAFIN SMALL BOWEL FOLLOWTHROUGH FOR Friday02/09/25 awake cooperative, wound vac in place, abdomen soft, non distended, appropriately tender, TATY drainage brownish discoloration, will irrigate, her WBC is normal and she is afebrile and normotensive. gastrografin tomorrow 02/10/25 AWAKE,COMFORTABLE, DENIES PAIN, ABDOMEN NON DISTENDED APPROPRIATELY TENDER, WOUND CLEAN AND WELL APPROXIMATED, DRAINS BEING IRRIGATED, LABS OK, GOOD URINE OUTPUT. "SURGICALLY" STABLE 02/11/25 feels well, passing flatus. is hungry, abdomen soft non distended, drainage clearing with irrigation, will wait for Gastrografin small bowel series to be completed, if normal will start po clear liquids 02/12/25 no nausea, change in TATY drainage colort, appears to contaIN, BILE, WILL DC po CLEAR LIQUIDS, CONTINUE ICE CGHIPS, SEND DRAin fluid for amylase and bilirubin, 02/13/25 states she feels well, abdomen non tender, non distended, wound clean and well approximated. drainage slightly clearer, keep npo for now, needs to resume TPN 02/14/25 PATIENT C/O BEING COLD BUT HAS NO PAIN, DRAINAGE SEEMS TO BE CLEARING, SHE HAD A BOWEL MOVEMENTS, ABDOMEN IS SOFT AND NON TENDER, NON DISTENDED, WOUND IS CLEAN AND WELL APPROXIMATED, WILL CONTINUE NPO STATUS AMYLASE ON TATY DRAINAGE FLUID IS GOING TO TAKE SEVERAL DAYS TO BECOME AVAILABLE. CONTINUE TPN 02/16/25 DENIES PAIN,STATES SHE FEELS BETTER, WOUND VAC IN PLACE, ABDOMEN NON TENDER,NON DISTENDED, TATY DRAINAGE SMALL TO MODERATE , WILL CONTINUE IRRIGATING DRAINS, WILL REQUEST GI CONSULT TO CONSIDER ENDOSCOPY. WBC NL,H/H STABLE , ALBUMIN STILL VERY LOW. , 02/17/25 CT SCAN REVIEWED, I SUSPECT THERE IS A SMALL LEAK FROM THE APPEARANCE OF IMAGING ALTHOUGH RADIOLOGIST RECOMMENDED REPEAT CT SCAN (ORDERED). THE DRAINAGE IS SMALL AMOUNT BUT NOW IT IS WITH AN ODOR, I WILL RE INSERT NGT TO ATTEMPT DECREASING THE GASTRIC CONTENTS. ABDOMEN IS SOFT, APPROPRIATELY TENDER, WOUND VAC IN PLACE Plan discussed with: Patient, Other Dietary Evaluation Review Comments: Nutrition Recommendation: 1) TPN to meet at least 75% estimated needs within 7 days 2) Monitor NPO status, lab values, wt trend, I/O Expected Outcomes/Goals: To meet >75% estimated needs Lab values to improve Fu 2-3 days MELVA RAMESH MD Feb 17, 2025 07:13
--- NOTE | 2025-02-17 11:57 | DVH ---
Indication: f/o to r/o extraluminal contrast Technique: CT axial images of the abdomen and pelvis are obtained without contrast. Coronal and sagit kianna reformats were obtained. Radiation Dose Information: CTDI volume is 16.39 mGy. Dose-length product is 3.52 mGy*cm Comparison: CT CT AB PEL WO CON-NO ORAL OR IV on DOS: 01/29/25, CT CT AB PEL WO CON-NO ORAL OR IV on D OS: 01/12/25 FINDINGS: There is limited interpretation of the abdomen and pelvis without administration of intravenous contr ast. Left lower lobe consolidation. Right lower lobe atelectasis. Small bilateral pleural effusions. Adrenal glands unremarkable in shape. Perisplenic catheter with small perisplenic subcapsular / diap hragmatic fluid collection similar to yesterday's examination. Stable posteriorm right perihepatic fl uid collection measuring approximately 1.9 cm. Pancreas and liver unremarkable in shape. No CT evidence for cholelithiasis. No hydronephrosis. Stomach is partially distended. Redemonstration of abdominal and pelvic drainage catheters. Contrast within the descending and rectosigmoid colon, distal small bowel. Colonic diverticular disease. Rede monstration of pneumoperitoneum/free air. In comparison to yesterday's examination there is no defini tive free contrast. The contrast described on yesterday's examination was likely within a loop of mary wel. Bladder decompressed by Perez catheter. No free pelvic fluid. No inguinal lymphadenopathy. The osseous structures are stable. Right IJ central venous catheter terminating in the IVC. IMPRESSION: Limited evaluation without contrast. In comparison estrogens examination, there is no definitive extraluminal contrast. The previously see n contrast was likely within the loop of bowel or may have been suctioned by the drainage catheters. Evaluate clinically There does still remain pneumoperitoneum, similar to previous examination mostly within the left abdo charlotte mesentery and anterior pelvic mesentery Stable perisplenic fluid collection with pigtail drainage catheter. Stable posterior right perihepati c collection Bibasilar atelectasis/ consolidation, [id number]-right and small bilateral pleural effusions. Other findings as described.
[2025-02-17] MEDS: MORPHINE SULFATE 4 MG/ML SYR/VIAL IV PRN (16:28)
--- NOTE | 2025-02-17 17:45 | DVH ---
EXAM: CT ANGIO AORTIC ABDOMINAL HISTORY: RULE OUT BOWEL ISCHEMIA COMPARISON: CT CT AB PEL WO CON-NO ORAL OR IV on DOS: 02/17/25 TECHNIQUE: CT angiogram of the abdomen and pelvis. CT scans at this facility use dose modulation, ite rative reconstruction, and/or weight based dosing when appropriate to reduce radiation dose to as low as reasonably achievable. 100 mL of low osmolar contrast was administered without adverse effect. 3- D postprocessing was performed on a separate workstation under radiologist supervision. MIPs were cre ated. VASCULAR FINDINGS: Normal caliber of abdominal aorta without evidence of aortic dissection or aneurysm. The mesenteric, and bilateral renal, iliac and femoral arteries are widely patent without any focal stenosis or aneur ysm. Mixed atherosclerotic plaque along the abdominal aorta and throughout the visualized vasculature . No focus of contrast extravasation. NON-VASCULAR FINDINGS: [LUNG BASES]: Small left and trace right pleural effusions partial collapse of the left lower lobe. T he cardiac size is normal without pericardial effusion. [LIVER]: Normal hepatic size without suspicious focal lesion. [GALLBLADDER AND BILIARY TREE]: No cholelithiasis. trace pericholecystic edema which may be related t o third-spacing. No biliary dilatation. [SPLEEN]: Perisplenic fluid collection status post left-sided pigtail percutaneous drainage placement . [PANCREAS]: Unremarkable. [ADRENAL GLANDS]: Unremarkable [KIDNEYS]: No hydronephrosis. No nephroureterolithiasis. Asymmetric hypoenhancement of the left anter ior kidney which may reflect underlying infarction versus hypoperfusion [BLADDER]: Perez catheter placement. Contrast within bladder [PELVIC ORGANS]: Unremarkable. [BOWEL/MESENTERY]: Stomach is normal. No CT evidence of bowel obstruction. Minimal sigmoid diverticul osis. Scattered intraperitoneal free air. Postsurgical changes with multiple surgical drains in place . [ASCITES]: Absent [LYMPHADENOPATHY]: No pathologically enlarged lymph nodes by CT size criteria [ABDOMINAL WALL]: Postsurgical changes along the lower mid abdomen. [MUSCULOSKELETAL]: No acute fracture or aggressive focal osseous lesion. Multifocal degenerative pearlta ge of the visualized spine. IMPRESSION: 1. In regards to the clinical question, no definitive area of bowel Hypoperfusion allowing for limita tion given significant decompression of multiple loops of bowel and postsurgical changes with scatter ed intraperitoneal free air. 2. No portal venous gas. No definitive pneumatosis intestinalis. 3. Small left-sided pleural effusion.
[2025-02-17] MEDS ORDERED: VANCOMYCIN PER PHARMACY 0 MG IV SCH (18:45)
--- NOTE | 2025-02-17 18:52 | DVHPNRES ---
Progress Note Date Seen: Feb 17, 2025 Resident Creating Document: GIGI FELIZ RESDIENT Has the PT tested + for MRSA If YES, has PT been informed?: No Medical Necessity Reason Pt with a Central, PICC or Fol: Yes The following are medically ne: PICC Line, Leach Catheter Reason for leach catheter: Strict I&O Subjective Review of Systems Patient Is seen and examined at the bedside. Patient extubated on 02/08. Status post extubation, patient can maintain oxygen through nasal cannula. Alert awake and oriented, not have any active compl Objective vital signs Vital Sign Date Time Temp Pulse Resp B/P (MAP) Pulse Ox O2 Delivery O2 Flow Rate FiO2 02/17/25 18:00 16 96 Room Air* 0 21 02/17/25 18:00 106 02/17/25 18:00 139/52 (81) 02/17/25 16:26 98.6 98.6 Total Intake and Output 02/16/25 02/16/25 02/17/25 15:00 23:00 07:00 Intake Total 392 ml 752 ml 392 ml Output Total 1682 ml 1060 ml Balance 392 ml -930 ml -668 ml medications Current Medications Medications Dose Ordered Sig/Isaura Route Start Time Stop Time Status Last Admin Dose Admin Cefazolin Sodium 50 ml @ 100 mls/hr Q8HR IV 01/13/25 14:00 UNV Vasopressin 20 units/Sodium Chloride 100 ml @ 9 mls/hr Q11H7M IV 01/13/25 18:45 UNV Potassium Chloride 100 ml @ 50 mls/hr Q2H IV 01/16/25 12:45 01/16/25 18:44 UNV Vancomycin HCl 100 ml @ 100 mls/hr DAILY@1200 IV 01/20/25 12:00 UNV Sodium Chloride 10 ml QSHIFT@10,22 IV 01/26/25 22:00 02/17/25 09:54 10 ML Diagnostic Test (Pha) 1 strip Q6HR 01/31/25 18:00 02/17/25 17:31 1 STRIP Insulin Human Regular FOLLOW SLIDING SCALE Q6HR SC 01/31/25 18:00 02/17/25 11:19 2 UNITS Dextrose 50 ml UD IV 01/31/25 17:00 02/12/25 17:42 50 ML Clonidine HCl 0.1 mg Q7D TD 02/08/25 12:30 02/15/25 14:20 0.1 MG Labetalol HCl 10 mg Q4HP PRN IV 02/08/25 12:30 02/16/25 15:10 10 MG Amino Acids 0 ml @ 0 mls/hr PER PHARMACY IV 02/13/25 10:45 Enoxaparin Sodium 40 mg DAILY SC 02/13/25 15:00 02/17/25 09:54 40 MG Fat Emulsion Intravenous 100 ml/Potassium Acetate 20 meq/ Potassium Phosphate 30 meq/ Magnesium Sulfate 8 meq/ Multivitamins 10 ml/Insulin Human Regular 7 units/ Amino Acids/ Dextrose 1,178.8882 ml @ 49 mls/hr Q24H4M IV 02/16/25 22:00 02/17/25 21:59 02/16/25 21:47 49 MLS/HR Fat Emulsion Intravenous 150 ml/Sodium Acetate 10 meq/Potassium Acetate 20 meq/ Potassium Phosphate 30 meq/ Magnesium Sulfate 8 meq/ Multivitamins 10 ml/Chromium/ Copper/Manganese/ Zinc 1 ml/Insulin Human Regular 7 units/Amino Acids/ Dextrose/Purified Water 1,484.8882 ml @ 62 mls/hr [id number] IV 02/17/25 22:00 02/18/25 21:59 Morphine Sulfate 2 mg Q4HPRN PRN IV 02/17/25 16:00 02/17/25 16:28 2 MG Examination General Appearance: Alert, Oriented X3, Cooperative, No acute distress HEENT: Atraumatic, PERRLA, EOMI, Mucous membrane moist/pink Respiratory: Clear to auscultation, Normal air movement Cardiovascular: Regular rate, Normal S1, Normal S2, No murmurs, no chest wall tenderness Abdominal: Mild abdominal tenderness, with wound VAC at the midline, for CARMEN drain at 4 quadrant, draining brownish fluid Extremities: No clubbing, No cyanosis, No edema, Normal pulses, No tenderness/swelling Skin: No rashes, No breakdown, No significant lesion Neuro: Grossly intact Psych/Mental Status: Mental status NL, Mood NL laboratory and microbiology Laboratory Tests 02/17/25 03:06 Test 02/17/25 03:06 Range/Units Serum Glucose 113 H 74-106 mg/dL Microbiology Date/Time Source Procedure Growth Status 02/15/25 10:12 Urine - [place] Urine Culture - Preliminary Resulted 01/31/25 13:30 Aspirate Gram Stain - Final Complete 01/31/25 13:30 Aspirate Body Fluid Culture - Final Complete 01/29/25 14:00 Sputum Gram Stain - Final Complete 01/29/25 14:00 Respiratory Culture - Final Presumptive Zoe albicans Complete 01/29/25 10:40 Blood Blood Culture - Final NO GROWTH AFTER 5 DAYS OF INCUBATION. Complete 01/13/25 17:10 Nose MRSA Screen - Final Complete Labs and/or images reviewed: Image(s) reviewed by me Problem List/Assessment/Plan Problem List/Assessment/Plan This is a 80-year-old lady with past medical history of hypertension, AFib (on Eliquis), diabetes type 2, CKD, came to the hospital due to abdominal pain, and constipation. Admitted on 01/13/2025. Found to have peritonitis due to bowel perforation, and underwent emergent laparotomy with subsequent resection of perforated small bowel and enteroenterostomy. Due to abnormal CARMEN drainage, second exploratory laparotomy performed on 02/04 and found to have perforation near to previous perforation area, underwent resection of area with subsequent anastomosis of proximal jejunal loops. Extubated on 02/07. 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 PULMONARY: Acute hypoxic respiratory failure secondary to bilateral pleural effusion/pneumonia Chest x-ray demonstrated bilateral hazy opacities * Sputum culture from 01/29 shows presumptive Zoe albicans * Status post extubation, on nasal cannula * Plan: Physiotherapy GASTROINTESTINAL: Peritonitis due to Perforation of the small bowel, status post exploratory laparotomy Transaminitis secondary to shock Perisplenic abscess * Peritoneal fluid culture from 01/13 shows E coli and Klebsiella pneumoniae sensitive to meropenem (given for 11 days, stopped on 01/31) * CT scan on 01/31 shows, moderate sized fluid collection in the perisplenic region * IR consulted, put pigtail drain, and has drained 50 cc purulent fluid * Patient has brownish discharge of the drain * Small bowel series, normal study * Patient has leakage from surgical area and drainage * Second laparotomy, performed on 02/04, lysis of adhesions, evacuation of pelvic and abdominal infection, resection of proximal jejunum, ileostomy, and jejunostomy and put for CARMEN drains at 4 quadrants * Small bowel series on 02/11, normal study, per surgery okay to start clear liquid diet * CT abdominopelvic on 02/16 showed, left abdominal pneumoperitoneum which overall appears similar/slightly more pronounced than on the examination from 01/29/2025, appears to be a small amount of extraluminal contrast,and perisplenic subcapsular collection/subdiaphragmatic collection measuring 7.1 x 1.1 cm * Plan: Started back meropenem (02/17), and vancomycin (02/17), NPO, TPN, NG tube GENITOURINARY: ISRRAEL likely due to shock/VMN, resolved * Monitoring ENDOCRINE: History of hypothyroidism Type 2 diabetes mellitus, hemoglobin A1c 8.2 * Few episodes of hypoglycemia * TSH is raised at 16.29, normal free T4 METABOLIC: Hypokalemia Hyperkalemia Hyponatremia, Nephrology recommended D5W at 75 mL/hour Severe metabolic protein malnutrition * Anion gap metabolic acidosis secondary to bowel ischemia leading to lactic acidosis HEME: Acute on chronic anemia secondary to hemodilution/post surgical 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 * 5 unit of PRBC, 2 pt of platelet, has been given INFECTIOUS DISEASE: Sepsis with septic shock secondary to perforation of the small bowel * Blood culture from 01/29 preliminary result shows Gram-positive rods (1/4 sets of blood culture) * Discontinued levofloxacin Flagyl on 02/03 * Discontine vancomycin and meropenem started on 02/03 given up to 02/13 MUSCULOSKELETAL: Rib fracture, due to fall DIET: Clear liquid diet DVT prophylax: Hold GI prophylaxis: Pantoprazole Bowel regimen: Code status: Full code LINES/DRAINS/ACCESS: ETT: Intubated on 01/14/25, extubated on 02/07 IV access: Rt upper thigh PICC placed on 01/26/2025 Drips: off from pressor and sedatives Leach catheter: Placed on 01/14, exchange on 02/14 CARMEN drainage: Four CARMEN drain in 4 quadrants of abdomen DISPOSITION: Downgraded to SHERRY Patient's status discussed with patient and patient's son at the bedside. Critical care time spent more than 57 minutes, including patient care, chart review, and updating the family. Excluding any procedures. Case discussed with Dr. Self Plan discussed with: Other Dietary Evaluation Review Comments: Nutrition Recommendation: 1) TPN to meet at least 75% estimated needs within 7 days 2) Monitor NPO status, lab values, wt trend, I/O Expected Outcomes/Goals: To meet >75% estimated needs Lab values to improve Fu 2-3 days CC Plasma Assessment Blood Product Administration S: [id number] Date of Service: Feb 17, 2025 Billing Provider: ZBIGNIEW SELF MD Common Visit Codes: 85033-[id number] CARE 30-74 MIN GIGI FELIZ Feb 17, 2025 18:52 ZBIGNIEW SELF MD Feb 19, 2025 11:57
[2025-02-17] MEDS: IOHEXOL 350 MG/ML 100ML IJ ONE (19:16)
--- NOTE | 2025-02-17 19:18 | DVHPN2 ---
Progress Note - Dictate Date Seen: Feb 17, 2025 Has the PT tested + for MRSA If YES, has PT been informed?: No Medical Necessity Reason Pt with a Central, PICC or Fol: Yes The following are medically ne: PICC Line, Leach Catheter Reason for leach catheter: Strict I&O Subjective No new complaints Patient is extubated saturating well on 2 L nasal cannula She denies any complaints CARMEN drain output has decreased Patient underwent repeat CT and abdominal angiography today to rule out any leak vital signs Vital Sign Date Time Temp Pulse Resp B/P (MAP) Pulse Ox O2 Delivery O2 Flow Rate FiO2 02/17/25 18:00 16 96 Room Air* 0 21 02/17/25 18:00 106 02/17/25 18:00 139/52 (81) 02/17/25 16:26 98.6 98.6 Total Intake and Output 02/16/25 02/16/25 02/17/25 15:00 23:00 07:00 Intake Total 392 ml 752 ml 392 ml Output Total 1682 ml 1060 ml Balance 392 ml -930 ml -668 ml medications Current Medications Medications Dose Ordered Sig/Isaura Route Start Time Stop Time Status Last Admin Dose Admin Cefazolin Sodium 50 ml @ 100 mls/hr Q8HR IV 01/13/25 14:00 UNV Vasopressin 20 units/Sodium Chloride 100 ml @ 9 mls/hr Q11H7M IV 01/13/25 18:45 UNV Potassium Chloride 100 ml @ 50 mls/hr Q2H IV 01/16/25 12:45 01/16/25 18:44 UNV Vancomycin HCl 100 ml @ 100 mls/hr DAILY@1200 IV 01/20/25 12:00 UNV Sodium Chloride 10 ml QSHIFT@10,22 IV 01/26/25 22:00 02/17/25 09:54 10 ML Diagnostic Test (Pha) 1 strip Q6HR 01/31/25 18:00 02/17/25 17:31 1 STRIP Insulin Human Regular FOLLOW SLIDING SCALE Q6HR SC 01/31/25 18:00 02/17/25 11:19 2 UNITS Dextrose 50 ml UD IV 01/31/25 17:00 02/12/25 17:42 50 ML Clonidine HCl 0.1 mg Q7D TD 02/08/25 12:30 02/15/25 14:20 0.1 MG Labetalol HCl 10 mg Q4HP PRN IV 02/08/25 12:30 02/16/25 15:10 10 MG Amino Acids 0 ml @ 0 mls/hr PER PHARMACY IV 02/13/25 10:45 Enoxaparin Sodium 40 mg DAILY SC 02/13/25 15:00 02/17/25 09:54 40 MG Fat Emulsion Intravenous 100 ml/Potassium Acetate 20 meq/ Potassium Phosphate 30 meq/ Magnesium Sulfate 8 meq/ Multivitamins 10 ml/Insulin Human Regular 7 units/ Amino Acids/ Dextrose 1,178.8882 ml @ 49 mls/hr Q24H4M IV 02/16/25 22:00 02/17/25 21:59 02/16/25 21:47 49 MLS/HR Fat Emulsion Intravenous 150 ml/Sodium Acetate 10 meq/Potassium Acetate 20 meq/ Potassium Phosphate 30 meq/ Magnesium Sulfate 8 meq/ Multivitamins 10 ml/Chromium/ Copper/Manganese/ Zinc 1 ml/Insulin Human Regular 7 units/Amino Acids/ Dextrose/Purified Water 1,484.8882 ml @ 62 mls/hr [id number] IV 02/17/25 22:00 02/18/25 21:59 Morphine Sulfate 2 mg Q4HPRN PRN IV 02/17/25 16:00 02/17/25 16:28 2 MG Meropenem 50 ml @ 17 mls/hr Q8HR IV 02/17/25 22:00 UNV Vancomycin HCl 0 ml @ 0 mls/hr UD IV 02/17/25 18:45 objective General Appearance: Alert, Oriented X3, Cooperative, No acute distress HEENT: Atraumatic, PERRLA, EOMI, Mucous membrane moist/pink Respiratory: Clear to auscultation, Normal air movement Cardiovascular: Regular rate, Normal S1, Normal S2, No murmurs, no chest wall tenderness Abdominal: Mild abdominal tenderness, with wound VAC at the midline, for CARMEN drain at 4 quadrant, draining brownish fluid Extremities: No clubbing, No cyanosis, No edema, Normal pulses, No tenderness/swelling Skin: No rashes, No breakdown, No significant lesion Neuro: Grossly intact Psych/Mental Status: Mental status NL, Mood NL laboratory and microbiology lutelyLaboratory Tests 02/17/25 03:06 Test 02/17/25 03:06 Range/Units Serum Glucose 113 H 74-106 mg/dL ABDOMINAL ANGIOGRAPHY IMPRESSION: 1. In regards to the clinical question, no definitive area of bowel Hypoperfusion allowing for limitation given significant decompression of multiple loops of bowel and postsurgical changes with scattered intraperitoneal free air. 2. No portal venous gas. No definitive pneumatosis intestinalis. 3. Small left-sided pleural effusion. CT ABD PELVIS IMPRESSION: Limited evaluation without contrast. In comparison estrogens examination, there is no definitive extraluminal contrast. The previously seen contrast was likely within the loop of bowel or may have been suctioned by the drainage catheters. Evaluate clinically There does still remain pneumoperitoneum, similar to previous examination mostly within the left abdominal mesentery and anterior pelvic mesentery Stable perisplenic fluid collection with pigtail drainage catheter. Stable posterior right perihepatic collection Bibasilar atelectasis/ consolidation, [id number] and small bilateral pleural effusions. Other findings as described. Problems(with codes): (1) Ischemic bowel disease (2) Acute renal injury (3) Intestinal perforation Prognosis Plan Currently there was no evidence of extravasation of contrast based on CT angiography and repeat CT abdomen today Continue NG tube to low intermittent suction although currently the NG tube output is minimal Monitor CARMEN drain output Continue IV antibiotics Continue conservative management for now I do not believe it would be safe to proceed with an endoscopy with insufflation that could worsen a possible partially sealed perforation Continue IV Protonix 40 mg q.12 hours Continue IV TPN Continue IV antibiotics A possible Gastrografin upper GI can be considered in a few days Dietary Evaluation Review Comments: Nutrition Recommendation: 1) TPN to meet at least 75% estimated needs within 7 days 2) Monitor NPO status, lab values, wt trend, I/O Expected Outcomes/Goals: To meet >75% estimated needs Lab values to improve Fu 2-3 days Is there a minimum of two crit: Yes Plan discussed with: Patient CC Plasma Assessment Blood Product Administration S: [id number] FRANCISCA RODRÍGUEZ MD Feb 17, 2025 19:18
[2025-02-17] MEDS: MEROPENEM 1GM IVPB 50 ML IV ONE ×2 (19:25→19:32)
[2025-02-17] MEDS: SODIUM CHLORIDE 0.9% 1,000 ML IV ONE (19:27)
[2025-02-17] MEDS: VANCOMYCIN 1.5GM/250ML 250 ML IV ONE (20:27)
--- NOTE | 2025-02-17 21:08 | DVH ---
CHEST RADIOGRAPH Indication: NGT PLACEMENT Technique: Single frontal view of the chest was obtained Comparison: XY CHEST XRAY 1 VIEW on DOS: 02/15/25, XY CHEST XRAY 1 VIEW on DOS: 02/11/25, XY CHEST XRAY 1 VIEW on DOS: 02/08/25 FINDINGS: Lines and Tubes: Enteric tube below the left diaphragm in the stomach. Lungs: Consolidation left base may represent atelectasis and/or effusion. Pleura: Small left pleural effusion. No pneumothorax. Cardiomediastinal contours: Unremarkable Bones: No acute osseous abnormality. IMPRESSION: 1. Enteric tube below the left diaphragm in the stomach 2. Consolidation left base. 3. Possible small left pleural effusion.
[2025-02-18] VITALS (26 sets, daily range): BP systolic 100–138; BP diastolic 40–72; PULSE 94–110; RESP 14–20; TEMP 98.3–99.2; O2SAT 95–99
[2025-02-18 03:59] LABS: Hematocrit 27.0 % (36.0-46.0); Hemoglobin 8.9 g/dL (12.2-16.2); Mean Corpuscular Hemoglobin 30.3 pg (28.0-32.0); Mean Corpuscular Volume 92.5 fL (80.0-100.0); Nucleated Red Blood Cells % 0.2 %
[2025-02-18 04:10] LABS: Alanine Aminotransferase 24 U/L (7-40); Anion Gap 10 (5-15); BUN/Creatinine Ratio 38.9 (10.0-20.0); Magnesium 2.1 mg/dL (1.6-2.6); Potassium 3.9 mmol/L (3.5-5.1); Sodium 137 mmol/L (136-145); Total Protein 5.9 g/dL (5.7-8.2)
[2025-02-18 04:12] LABS: Bilirubin, Total 1.2 mg/dL (0.2-1.0)
[2025-02-18 04:25] LABS: Albumin 2.3 g/dL (3.2-4.8); Alkaline Phosphatase 246 U/L (46-116); Blood Urea Nitrogen 28 mg/dL (9-23); Calcium 8.0 mg/dL (8.7-10.4); Carbon Dioxide 19 mmol/L (20-31); Chloride 108 mmol/L (98-107)
[2025-02-18 04:26] LABS: Glucose 137 mg/dL (74-106)
[2025-02-18] MEDS: VANCOMYCIN 750MG KIT 100 ML IV SCH (07:55)
[2025-02-18] MEDS: MEROPENEM 1GM IVPB 50 ML IV SCH (09:08)
--- NOTE | 2025-02-18 10:54 | DVHPNRES ---
Progress Note Date Seen: Feb 18, 2025 Resident Creating Document: GIGI FELIZ RESDIENT Has the PT tested + for MRSA If YES, has PT been informed?: No Medical Necessity Reason Pt with a Central, PICC or Fol: Yes The following are medically ne: PICC Line, Leach Catheter Reason for leach catheter: Strict I&O Subjective Review of Systems Patient Is seen and examined at the bedside. Patient extubated on 02/08. Status post extubation, patient can maintain oxygen through nasal cannula. Alert awake and oriented, complains of abdominal pain. Objective vital signs Vital Sign Date Time Temp Pulse Resp B/P (MAP) Pulse Ox O2 Delivery O2 Flow Rate FiO2 02/18/25 10:00 17 97 Room Air* 0 21 02/18/25 10:00 101 120/62 (81) 02/18/25 08:00 98.6 98.6 Total Intake and Output 02/17/25 02/17/25 02/18/25 14:59 22:59 06:59 Intake Total 392 ml 1305 ml 896 ml Output Total 1000 ml 1190 ml Balance 392 ml 305 ml -294 ml medications Current Medications Medications Dose Ordered Sig/Isaura Route Start Time Stop Time Status Last Admin Dose Admin Cefazolin Sodium 50 ml @ 100 mls/hr Q8HR IV 01/13/25 14:00 UNV Vasopressin 20 units/Sodium Chloride 100 ml @ 9 mls/hr Q11H7M IV 01/13/25 18:45 UNV Potassium Chloride 100 ml @ 50 mls/hr Q2H IV 01/16/25 12:45 01/16/25 18:44 UNV Vancomycin HCl 100 ml @ 100 mls/hr DAILY@1200 IV 01/20/25 12:00 UNV Sodium Chloride 10 ml QSHIFT@,22 IV 01/26/25 22:00 02/18/25 09:13 10 ML Diagnostic Test (Pha) 1 strip Q6HR 01/31/25 18:00 02/18/25 04:56 1 STRIP Insulin Human Regular FOLLOW SLIDING SCALE Q6HR SC 01/31/25 18:00 02/18/25 05:33 2 UNITS Dextrose 50 ml UD IV 01/31/25 17:00 02/12/25 17:42 50 ML Clonidine HCl 0.1 mg Q7D TD 02/08/25 12:30 02/15/25 14:20 0.1 MG Labetalol HCl 10 mg Q4HP PRN IV 02/08/25 12:30 02/16/25 15:10 10 MG Amino Acids 0 ml @ 0 mls/hr PER PHARMACY IV 02/13/25 10:45 Enoxaparin Sodium 40 mg DAILY SC 02/13/25 15:00 02/18/25 09:09 40 MG Fat Emulsion Intravenous 150 ml/Sodium Acetate 10 meq/Potassium Acetate 20 meq/ Potassium Phosphate 30 meq/ Magnesium Sulfate 8 meq/ Multivitamins 10 ml/Chromium/ Copper/Manganese/ Zinc 1 ml/Insulin Human Regular 7 units/Amino Acids/ Dextrose/Purified Water 1,484.8882 ml @ 62 mls/hr [id number] IV 02/17/25 22:00 02/18/25 21:59 02/17/25 21:53 62 MLS/HR Morphine Sulfate 2 mg Q4HPRN PRN IV 02/17/25 16:00 02/18/25 09:08 2 MG Meropenem 50 ml @ 17 mls/hr Q12HR IV 02/18/25 10:00 02/18/25 09:08 17 MLS/HR Vancomycin HCl 0 ml @ 0 mls/hr UD IV 02/17/25 18:45 Vancomycin HCl 100 ml @ 100 mls/hr Q12H IV 02/18/25 08:00 02/18/25 07:55 100 MLS/HR Fat Emulsion Intravenous 150 ml/Sodium Phosphate 12 meq/ Potassium Acetate 20 meq/Potassium Phosphate 33 meq/ Magnesium Sulfate 8 meq/ Multivitamins 10 ml/Amino Acids/ Dextrose 1,382.5 ml @ 58 mls/hr [id number] IV 02/18/25 22:00 02/19/25 21:59 Examination General Appearance: Alert, Oriented X3, Cooperative, No acute distress HEENT: Atraumatic, PERRLA, EOMI, Mucous membrane moist/pink Respiratory: Clear to auscultation, Normal air movement Cardiovascular: Regular rate, Normal S1, Normal S2, No murmurs, no chest wall tenderness Abdominal: Mild abdominal tenderness, with wound VAC at the midline, for CARMEN drain at 4 quadrant, draining brownish fluid Extremities: No clubbing, No cyanosis, No edema, Normal pulses, No tenderness/swelling Skin: No rashes, No breakdown, No significant lesion Neuro: Grossly intact Psych/Mental Status: Mental status NL, Mood NL laboratory and microbiology Laboratory Tests 02/18/25 03:13 Test 02/18/25 03:13 Range/Units Serum Glucose 137 H 74-106 mg/dL Microbiology Date/Time Source Procedure Growth Status 02/15/25 10:12 Urine - Leach [place] Urine Culture - Preliminary Resulted 01/31/25 13:30 Aspirate Gram Stain - Final Complete 01/31/25 13:30 Aspirate Body Fluid Culture - Final Complete 01/29/25 14:00 Sputum Gram Stain - Final Complete 01/29/25 14:00 Respiratory Culture - Final Presumptive Zoe albicans Complete 01/29/25 10:40 Blood Blood Culture - Final NO GROWTH AFTER 5 DAYS OF INCUBATION. Complete 01/13/25 17:10 Nose MRSA Screen - Final Complete Labs and/or images reviewed: Labs reviewed by me, Image(s) reviewed by me Problem List/Assessment/Plan Problem List/Assessment/Plan This is a 80-year-old lady with past medical history of hypertension, AFib (on Eliquis), diabetes type 2, CKD, came to the hospital due to abdominal pain, and constipation. Admitted on 01/13/2025. Found to have peritonitis due to bowel perforation, and underwent emergent laparotomy with subsequent resection of perforated small bowel and enteroenterostomy. Due to abnormal CARMEN drainage, second exploratory laparotomy performed on 02/04 and found to have perforation near to previous perforation area, underwent resection of area with subsequent anastomosis of proximal jejunal loops. Extubated on 02/07. 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 PULMONARY: Acute hypoxic respiratory failure secondary to bilateral pleural effusion/pneumonia Chest x-ray demonstrated bilateral hazy opacities * Sputum culture from 01/29 shows presumptive Zoe albicans * Status post extubation, on nasal cannula * Plan: Physiotherapy GASTROINTESTINAL: Peritonitis due to Perforation of the small bowel, status post exploratory laparotomy Transaminitis secondary to shock Perisplenic abscess * Peritoneal fluid culture from 01/13 shows E coli and Klebsiella pneumoniae sensitive to meropenem (given for 11 days, stopped on 01/31) * CT scan on 01/31 shows, moderate sized fluid collection in the perisplenic region * IR consulted, put pigtail drain, and has drained 50 cc purulent fluid * Patient has brownish discharge of the drain * Small bowel series, normal study * Patient has leakage from surgical area and drainage * Second laparotomy, performed on 02/04, lysis of adhesions, evacuation of pelvic and abdominal infection, resection of proximal jejunum, ileostomy, and jejunostomy and put for CARMEN drains at 4 quadrants * Small bowel series on 02/11, normal study, per surgery okay to start clear liquid diet * CT abdominopelvic on 02/16 showed, left abdominal pneumoperitoneum which overall appears similar/slightly more pronounced than on the examination from 01/29/2025, appears to be a small amount of extraluminal contrast,and perisplenic subcapsular collection/subdiaphragmatic collection measuring 7.1 x 1.1 cm * Plan: Started back meropenem (02/17), and vancomycin (02/17), NPO, TPN, NG tube GENITOURINARY: SIRRAEL likely due to shock/VMN, resolved * Monitoring ENDOCRINE: History of hypothyroidism Type 2 diabetes mellitus, hemoglobin A1c 8.2 * Few episodes of hypoglycemia * TSH is raised at 16.29, normal free T4 METABOLIC: Hypokalemia Hyperkalemia Hyponatremia, Nephrology recommended D5W at 75 mL/hour Severe metabolic protein malnutrition * Anion gap metabolic acidosis secondary to bowel ischemia leading to lactic acidosis HEME: Acute on chronic anemia secondary to hemodilution/post surgical 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 * 5 unit of PRBC, 2 pt of platelet, has been given INFECTIOUS DISEASE: Sepsis with septic shock secondary to perforation of the small bowel * Blood culture from 01/29 preliminary result shows Gram-positive rods (1/4 sets of blood culture) * Discontinued levofloxacin Flagyl on 02/03 * Discontine vancomycin and meropenem started on 02/03 given up to 02/13 MUSCULOSKELETAL: Rib fracture, due to fall DIET: Clear liquid diet DVT prophylax: Hold GI prophylaxis: Pantoprazole Bowel regimen: Code status: Full code LINES/DRAINS/ACCESS: ETT: Intubated on 01/14/25, extubated on 02/07 IV access: Rt upper thigh PICC placed on 01/26/2025 Drips: off from pressor and sedatives Leach catheter: Placed on 01/14, exchange on 02/14 CARMEN drainage: Four CARMEN drain in 4 quadrants of abdomen DISPOSITION: Downgraded to SHERRY Patient's status discussed with patient and patient's son at the bedside. Critical care time spent more than 57 minutes, including patient care, chart review, and updating the family. Excluding any procedures. Case discussed with Dr. Rodriguez Plan discussed with: Other My Orders My Orders Orders - GIGI FELIZ Procedure Category Date Status Time Vancomycin Per PHA 02/17/25 In Process Pharmacy 18:45 Body Fluid Culture W/ MARIA ISABEL 02/17/25 In Process GS 18:42 Ng To Lcs [facility]IRE 02/17/25 In Process 18:51 Communication Order ORDERS 02/17/25 Transmitted 18:51 Meropenem 1gm Ivpb PHA 02/18/25 In Process (Merrem 1gm/50ml) 10:00 Chest Portable XY 02/17/25 Resulted 20:33 Vancomycin,Trough LAB 02/19/25 Verified 19:00 Vancomycin Per SAPPHIRE 02/18/25 In Process Pharmacy Protoc 08:00 Vancomycin 750mg Kit PHA 02/18/25 In Process (Vancomycin Hcl) 08:00 Dietary Evaluation Review Comments: Nutrition Recommendation: 1) TPN to meet at least 75% estimated needs within 7 days 2) Monitor NPO status, lab values, wt trend, I/O Expected Outcomes/Goals: To meet >75% estimated needs Lab values to improve Fu 2-3 days Is there a minimum of two crit: Yes CC Plasma Assessment Blood Product Administration S: [id number] Date of Service: Feb 18, 2025 Billing Provider: ROCIO ENNIS MD Common Visit Codes: NOT BILLABLE GIGI FELIZ Feb 18, 2025 10:54 ROCIO ENNIS MD Mar 07, 2025 15:40
--- NOTE | 2025-02-18 13:01 | DVHPN2 ---
Progress Note Date Seen: Feb 18, 2025 Has the PT tested + for MRSA If YES, has PT been informed?: No Medical Necessity Reason Pt with a Central, PICC or Fol: Yes The following are medically ne: PICC Line, Leach Catheter Reason for leach catheter: Strict I&O Objective vital signs Vital Sign Date Time Temp Pulse Resp B/P (MAP) Pulse Ox O2 Delivery O2 Flow Rate FiO2 02/18/25 12:00 102 02/18/25 12:00 17 97 Room Air* 0 21 02/18/25 10:00 120/62 (81) 02/18/25 08:00 98.6 98.6 Total Intake and Output 02/17/25 02/17/25 02/18/25 15:00 23:00 07:00 Intake Total 392 ml 1518 ml 696 ml Output Total 1000 ml 1190 ml Balance 392 ml 518 ml -494 ml medications Current Medications Medications Dose Ordered Sig/Isaura Route Start Time Stop Time Status Last Admin Dose Admin Cefazolin Sodium 50 ml @ 100 mls/hr Q8HR IV 01/13/25 14:00 UNV Vasopressin 20 units/Sodium Chloride 100 ml @ 9 mls/hr Q11H7M IV 01/13/25 18:45 UNV Potassium Chloride 100 ml @ 50 mls/hr Q2H IV 01/16/25 12:45 01/16/25 18:44 UNV Vancomycin HCl 100 ml @ 100 mls/hr DAILY@1200 IV 01/20/25 12:00 UNV Sodium Chloride 10 ml QSHIFT@10,22 IV 01/26/25 22:00 02/18/25 09:13 10 ML Diagnostic Test (Pha) 1 strip Q6HR 01/31/25 18:00 02/18/25 12:09 1 STRIP Insulin Human Regular FOLLOW SLIDING SCALE Q6HR SC 01/31/25 18:00 02/18/25 12:42 2 UNITS Dextrose 50 ml UD IV 01/31/25 17:00 02/12/25 17:42 50 ML Clonidine HCl 0.1 mg Q7D TD 02/08/25 12:30 02/15/25 14:20 0.1 MG Labetalol HCl 10 mg Q4HP PRN IV 02/08/25 12:30 02/16/25 15:10 10 MG Amino Acids 0 ml @ 0 mls/hr PER PHARMACY IV 02/13/25 10:45 Enoxaparin Sodium 40 mg DAILY SC 02/13/25 15:00 02/18/25 09:09 40 MG Fat Emulsion Intravenous 150 ml/Sodium Acetate 10 meq/Potassium Acetate 20 meq/ Potassium Phosphate 30 meq/ Magnesium Sulfate 8 meq/ Multivitamins 10 ml/Chromium/ Copper/Manganese/ Zinc 1 ml/Insulin Human Regular 7 units/Amino Acids/ Dextrose/Purified Water 1,484.8882 ml @ 62 mls/hr [id number] IV 02/17/25 22:00 02/18/25 21:59 02/17/25 21:53 62 MLS/HR Morphine Sulfate 2 mg Q4HPRN PRN IV 02/17/25 16:00 02/18/25 09:08 2 MG Meropenem 50 ml @ 17 mls/hr Q12HR IV 02/18/25 10:00 02/18/25 09:08 17 MLS/HR Vancomycin HCl 0 ml @ 0 mls/hr UD IV 02/17/25 18:45 Vancomycin HCl 100 ml @ 100 mls/hr Q12H IV 02/18/25 08:00 02/18/25 07:55 100 MLS/HR Fat Emulsion Intravenous 150 ml/Sodium Phosphate 12 meq/ Potassium Acetate 20 meq/Potassium Phosphate 33 meq/ Magnesium Sulfate 8 meq/ Multivitamins 10 ml/Amino Acids/ Dextrose 1,382.5 ml @ 58 mls/hr [id number] IV 02/18/25 22:00 02/19/25 21:59 laboratory and microbiology Laboratory Tests 02/18/25 03:13 Test 02/18/25 03:13 Range/Units Serum Glucose 137 H 74-106 mg/dL Problem List/Assessment/Plan Problem List/Assessment/Plan 01/14/25 afebrile, low dose BP support, received transfusion, I believe her decreased hematocrit is due to hemodilution. abdomen non distended, soft, wound clean and well approximated, drainage serous . remains intubated and sedated 01/16/25 ALKALOSIS, ABDOMEN NON DISTENDED, SOFT, DRAINAGE SEROUS, WOUND CLEAN AND WELL APPROXIMATED 01/17/25 improved, thrombocytopenia possibly made worse by Fluconazole,will DC, abdomen non distended, wound well approximated without infection, TATY drainage serous, CVP 6, good urine output. 01/18/25 abg reviewed, ,abdomen soft, non distended, TATY drainage clear serous, no bowel activity, febrile, urine output ok, continues with thrombocytopenia,pt and inr slightly elevated. prognosis grave. 01/20/25remains sedated on ventilator, abdomen soft, non distended, faint bowel sounds auscultated by nurse, wound clean and well approximated, TATY drainage clear serous. continues with thrombocytopenia, still behind on intravascular volume( BUN and Creatinine elevated), i would give more IV fluids and DC vancomycin. 01/25/25 afebrile, normotensive, wound clean and well approximated, TATY drainage serous, abdomen non distended, soft, gastrografin small bowel series shows non obstructed GI tract and no evidence of extravasation. It is OK to initiate enteric feedings. 01/29/25 16 DAYS POST OPERATIVELY TRHE TATY DRAINAGE WHICH HAD CONSISTENTLY BEEN SEROUS OR SERO SANGUINEOUS HAS BECOME "DIRTY" BROWNISH DISCOLORATION, HER WOUND IS CLEAN AND WELL APPROXIMATED AND HER ABDOMEN IS SOFT AND NON DISTENDED, CT SCAN SHOWS SO0ME FLUID AND ACCUMULATION OF FLUID AROUND THE SPLEEN, WILL REQUEST CT GUIDED ASPIRATION OF SAME, WILL ORDER IRRIGATION OF DRAINS. SHE SI AFEBRILE AND MAINTAINS NORMAL BLOOD PRESSURE, HER WBC IS NORMAL. 01/30/25 improved, awake, being weaned off vent. abdomen non distended, non tender, taty drainage clearing with irrigation 02/02/25clinically unchanged, gastrografin small bowel series reported and normal, no extravasation reported, will order a follow ujp KUB for tomorrow AM 02/03/25 PATIENT HAD A GASTROGRAFIN SMALL BOWEL SERIES AND A FOLLOW UP KUB X RAYS NEITHER ONE OF WHICH SHOW EXTRAVASATION OF CONTRAST OR EVIDENCE OF FREE CONTRAST IN THE PERITONEAL CAVITY. THERE IS HOWEVER VISCOUS, BROWNISH FLUID DRAINING VIA BOTH TATY DRAINS AND THROUGH INFRAUMBILICAL PORTION OF MIDLINE WOUND, I REMOVED THE RICHIE FROM THE 3 CM SECTION OF THE INFRAUMBILICAL WOUND AND EVACUATED ABOUT 30 CC OF THIS FLUID AND INSTRUCTED THE NURSE TO PLACE A STOMA APPLIANCE ON THIS OPENING. 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 TODAY HER WBC IS ELEVATED, ABDOMEN CONTINUES TO BE NON DISTENDED, SOFT, BUT SHE DOES HAVE SLIGHT TENDERNESS IN THE PERIUMBILICAL AREA. I WILL TREAT THIS EXPECTANTLY FORM THE TIME BEING IN THE HOPE THAT THIS IS A "CONTROLLED" FISTULA AND HOPEFUL WILL HEAL SPONTANEOUSLY WITH NPO AND NUTRITIONAL SUPPORT. WILL WATCH CLOSELY, AFTER A FEW DAYS WILL GET A FISTULOGRAM TO PIN POINT THE ENTERIC ORIGIN OF THE FISTULIZATION. CONTINUE NGT SUCTION AND DRAIN IRRIGATION ORDERED02/05/25 02/05/25 remains sedated and intubated?ventilated, abdomen non distended soft, wound vac in place. TATY drainage serosanguineous 02/08/25 EXTUBATED, GOOD INSPIRATORY EFFORT, BP NML WITHOUT PRESSOR SUPPORT, ABDOMEN SOFT, NON DISTENDED, APPROPRIATELY TENDER, LABS REVIEWED. NO CHANGES TODAY OTHER THAN ALLOW ICE CHIPS PO. WILL ORDER GASTROGRAFIN SMALL BOWEL FOLLOWTHROUGH FOR Friday02/09/25 awake cooperative, wound vac in place, abdomen soft, non distended, appropriately tender, TATY drainage brownish discoloration, will irrigate, her WBC is normal and she is afebrile and normotensive. gastrografin tomorrow 02/10/25 AWAKE,COMFORTABLE, DENIES PAIN, ABDOMEN NON DISTENDED APPROPRIATELY TENDER, WOUND CLEAN AND WELL APPROXIMATED, DRAINS BEING IRRIGATED, LABS OK, GOOD URINE OUTPUT. "SURGICALLY" STABLE 02/11/25 feels well, passing flatus. is hungry, abdomen soft non distended, drainage clearing with irrigation, will wait for Gastrografin small bowel series to be completed, if normal will start po clear liquids 02/12/25 no nausea, change in TATY drainage colort, appears to contaIN, BILE, WILL DC po CLEAR LIQUIDS, CONTINUE ICE CGHIPS, SEND DRAin fluid for amylase and bilirubin, 02/13/25 states she feels well, abdomen non tender, non distended, wound clean and well approximated. drainage slightly clearer, keep npo for now, needs to resume TPN 02/14/25 PATIENT C/O BEING COLD BUT HAS NO PAIN, DRAINAGE SEEMS TO BE CLEARING, SHE HAD A BOWEL MOVEMENTS, ABDOMEN IS SOFT AND NON TENDER, NON DISTENDED, WOUND IS CLEAN AND WELL APPROXIMATED, WILL CONTINUE NPO STATUS AMYLASE ON TATY DRAINAGE FLUID IS GOING TO TAKE SEVERAL DAYS TO BECOME AVAILABLE. CONTINUE TPN 02/16/25 DENIES PAIN,STATES SHE FEELS BETTER, WOUND VAC IN PLACE, ABDOMEN NON TENDER,NON DISTENDED, TATY DRAINAGE SMALL TO MODERATE , WILL CONTINUE IRRIGATING DRAINS, WILL REQUEST GI CONSULT TO CONSIDER ENDOSCOPY. WBC NL,H/H STABLE , ALBUMIN STILL VERY LOW. , 02/17/25 CT SCAN REVIEWED, I SUSPECT THERE IS A SMALL LEAK FROM THE APPEARANCE OF IMAGING ALTHOUGH RADIOLOGIST RECOMMENDED REPEAT CT SCAN (ORDERED). THE DRAINAGE IS SMALL AMOUNT BUT NOW IT IS WITH AN ODOR, I WILL RE INSERT NGT TO ATTEMPT DECREASING THE GASTRIC CONTENTS. ABDOMEN IS SOFT, APPROPRIATELY TENDER, WOUND VAC IN PLACE 02/18/25 AFEBRILE, NORMOTENSIVE4, WBC NL, ALL IMAGING NEGATIVE, ANGIOGRAM SHOWS NO EVIDENCE OF HYPOPERFUSION, CONTRAST AND NON CONTRAST CT SCAN FAILED TO SHOW ANY EVIDENCE OF EXTRAVASATION, THE DRAINAGE CONTINUES TO BE BROWNISH DISCOLORED AND FOULS SMELLING, EXPLAINED TO PT'S SON THAT I HAVE NO EVIDENCE OF ANY GI LEAKAGE, WILL GET A GASTROGRAFIN ENEMA ON FRIDAY, I AM TRYING TO REFRAIN FROM OPERATING ON THE FRAIL ELDERLY PATIENT FOR THE THIRD TIME, SHE WILL NOT TOLERATE ANOTHYER OPERATION WELL. HER ALBUMIN REMAINS VERY LOW.WOUND VAC OK Plan discussed with: Patient, Son, Other Dietary Evaluation Review Comments: Nutrition Recommendation: 1) TPN to meet at least 75% estimated needs within 7 days 2) Monitor NPO status, lab values, wt trend, I/O Expected Outcomes/Goals: To meet >75% estimated needs Lab values to improve Fu 2-3 days Is there a minimum of two crit: Yes MELVA RAMESH MD Feb 18, 2025 13:01
--- NOTE | 2025-02-18 17:20 | DVH ---
Procedure: NM NM HIDA SCAN Exam Date: 02/18/2025 03:09 PM Clinical History: ELEVATED ALK PHOS,BILIRUBIN Comparison Study: None Nuclear Medicine Hepatobiliary Scan. Technique: Following the intravenous administration of 4.1 mCi of technetium 99m labeled Choletec multiple plana r abdominal planar images were obtained in anterior projection in 5 minute intervals for45 minutes . Right lateral images were obtained at 45 minutes after injection. Findings: The liver appears grossly normal in size. There is no abnormal persistence of the cardiac or blood po ol activity. There is prompt visualization of the gallbladder and excretion of activity into the smal l bowel. Impression: Unremarkable hepatobiliary study without evidence of acute cholecystitis.
[2025-02-18] MEDS: TPN PER PHARMACY IV NR (21:09)
--- NOTE | 2025-02-18 21:10 | DVHPN2 ---
Progress Note - Dictate Date Seen: Feb 18, 2025 Has the PT tested + for MRSA If YES, has PT been informed?: No Medical Necessity Reason Pt with a Central, PICC or Fol: Yes The following are medically ne: PICC Line, Leach Catheter Reason for leach catheter: Strict I&O Subjective No new complaints; afebrile normotensive Her white count is normal and imaging study shows no evidence of contrast extravasation However her CARMEN drainage continues to be brownish and foul-smelling HIDA Scan negative vital signs Vital Sign Date Time Temp Pulse Resp B/P (MAP) Pulse Ox O2 Delivery O2 Flow Rate FiO2 02/18/25 18:39 101 17 120/64 02/18/25 18:01 97 02/18/25 18:00 Room Air* 0 21 02/18/25 16:50 98.6 98.6 Total Intake and Output 02/17/25 02/17/25 02/18/25 15:00 23:00 07:00 Intake Total 392 ml 1518 ml 696 ml Output Total 1000 ml 1190 ml Balance 392 ml 518 ml -494 ml medications Current Medications Medications Dose Ordered Sig/Isaura Route Start Time Stop Time Status Last Admin Dose Admin Cefazolin Sodium 50 ml @ 100 mls/hr Q8HR IV 01/13/25 14:00 UNV Vasopressin 20 units/Sodium Chloride 100 ml @ 9 mls/hr Q11H7M IV 01/13/25 18:45 UNV Potassium Chloride 100 ml @ 50 mls/hr Q2H IV 01/16/25 12:45 01/16/25 18:44 UNV Vancomycin HCl 100 ml @ 100 mls/hr DAILY@1200 IV 01/20/25 12:00 UNV Sodium Chloride 10 ml QSHIFT@,22 IV 01/26/25 22:00 02/18/25 09:13 10 ML Diagnostic Test (Pha) 1 strip Q6HR 01/31/25 18:00 02/18/25 17:28 1 STRIP Insulin Human Regular FOLLOW SLIDING SCALE Q6HR SC 01/31/25 18:00 02/18/25 12:42 2 UNITS Dextrose 50 ml UD IV 01/31/25 17:00 02/12/25 17:42 50 ML Clonidine HCl 0.1 mg Q7D TD 02/08/25 12:30 02/15/25 14:20 0.1 MG Labetalol HCl 10 mg Q4HP PRN IV 02/08/25 12:30 02/16/25 15:10 10 MG Amino Acids 0 ml @ 0 mls/hr PER PHARMACY IV 02/13/25 10:45 Enoxaparin Sodium 40 mg DAILY SC 02/13/25 15:00 02/18/25 09:09 40 MG Fat Emulsion Intravenous 150 ml/Sodium Acetate 10 meq/Potassium Acetate 20 meq/ Potassium Phosphate 30 meq/ Magnesium Sulfate 8 meq/ Multivitamins 10 ml/Chromium/ Copper/Manganese/ Zinc 1 ml/Insulin Human Regular 7 units/Amino Acids/ Dextrose/Purified Water 1,484.8882 ml @ 62 mls/hr [id number] IV 02/17/25 22:00 02/18/25 21:59 02/17/25 21:53 62 MLS/HR Morphine Sulfate 2 mg Q4HPRN PRN IV 02/17/25 16:00 02/18/25 18:09 2 MG Meropenem 50 ml @ 17 mls/hr Q12HR IV 02/18/25 10:00 02/18/25 09:08 17 MLS/HR Vancomycin HCl 0 ml @ 0 mls/hr UD IV 02/17/25 18:45 Vancomycin HCl 100 ml @ 100 mls/hr Q12H IV 02/18/25 08:00 02/18/25 07:55 100 MLS/HR Fat Emulsion Intravenous 150 ml/Sodium Phosphate 12 meq/ Potassium Acetate 20 meq/Potassium Phosphate 33 meq/ Magnesium Sulfate 8 meq/ Multivitamins 10 ml/Amino Acids/ Dextrose 1,382.5 ml @ 58 mls/hr [id number] IV 02/18/25 22:00 02/19/25 21:59 objective General Appearance: Alert, Oriented X3, Cooperative, No acute distress HEENT: Atraumatic, PERRLA, EOMI, Mucous membrane moist/pink Respiratory: Clear to auscultation, Normal air movement Cardiovascular: Regular rate, Normal S1, Normal S2, No murmurs, no chest wall tenderness Abdominal: Mild abdominal tenderness, with wound VAC at the midline, for CARMEN drain at 4 quadrant, draining brownish fluid Extremities: No clubbing, No cyanosis, No edema, Normal pulses, No tenderness/swelling Skin: No rashes, No breakdown, No significant lesion Neuro: Grossly intact Psych/Mental Status: Mental status NL, Mood NL laboratory and microbiology Laboratory Tests 02/18/25 03:13 Test 02/18/25 03:13 Range/Units Serum Glucose 137 H 74-106 mg/dL HIDA SCAN negative Problems(with codes): (1) Ischemic bowel disease (2) Acute renal injury (3) Intestinal perforation Prognosis Assessment plan Surgical consult mostly monitoring the patient There was a plan for Gastrografin enema on Friday to rule out any colonic leak Patient is at high-risk for repeat surgery and conservative during Continue IV TPN and nutritional supplementation; IV antibiotics Prognosis remains guarded Dietary Evaluation Review Comments: Nutrition Recommendation: 1) TPN to meet at least 75% estimated needs within 7 days 2) Monitor NPO status, lab values, wt trend, I/O Expected Outcomes/Goals: To meet >75% estimated needs Lab values to improve Fu 2-3 days Is there a minimum of two crit: Yes Plan discussed with: Other (ICU Nurse) CC Plasma Assessment Blood Product Administration S: [id number] FRANCISCA RODRÍGUEZ MD Feb 18, 2025 21:10
[2025-02-19] VITALS (23 sets, daily range): BP systolic 103–140; BP diastolic 49–66; PULSE 96–120; RESP 8–22; TEMP 97.9–100.1; O2SAT 95–100
[2025-02-19 03:32] LABS: Hematocrit 24.9 % (36.0-46.0); Hemoglobin 8.2 g/dL (12.2-16.2); Mean Corpuscular Hemoglobin 30.2 pg (28.0-32.0); Mean Corpuscular Volume 91.5 fL (80.0-100.0); Nucleated Red Blood Cells % 0.1 %
[2025-02-19 03:56] LABS: Alanine Aminotransferase 24 U/L (7-40); Anion Gap 10 (5-15); BUN/Creatinine Ratio 46.8 (10.0-20.0); Bilirubin, Total 1.1 mg/dL (0.2-1.0); Carbon Dioxide 21 mmol/L (20-31); Chloride 107 mmol/L (98-107); Magnesium 2.1 mg/dL (1.6-2.6); Potassium 3.7 mmol/L (3.5-5.1); Sodium 138 mmol/L (136-145); Total Protein 5.8 g/dL (5.7-8.2)
[2025-02-19 03:57] LABS: Albumin 2.3 g/dL (3.2-4.8); Alkaline Phosphatase 238 U/L (46-116); Blood Urea Nitrogen 36 mg/dL (9-23); Calcium 8.1 mg/dL (8.7-10.4); Glucose 139 mg/dL (74-106)
--- NOTE | 2025-02-19 09:40 | DVHPN2 ---
Progress Note Date Seen: Feb 19, 2025 Has the PT tested + for MRSA If YES, has PT been informed?: No Medical Necessity Reason Pt with a Central, PICC or Fol: Yes The following are medically ne: PICC Line, Leach Catheter Reason for leach catheter: Strict I&O Objective vital signs Vital Sign Date Time Temp Pulse Resp B/P (MAP) Pulse Ox O2 Delivery O2 Flow Rate FiO2 02/19/25 06:00 108 02/19/25 06:00 8 128/55 (79) 98 02/19/25 06:00 Nasal Cannula* 2 28 02/19/25 04:00 98.4 98.4 Total Intake and Output 02/18/25 02/18/25 02/19/25 15:00 23:00 07:00 Intake Total 646 ml 622 ml 423 ml Output Total 870 ml 951 ml Balance 646 ml -248 ml -528 ml medications Current Medications Medications Dose Ordered Sig/Isaura Route Start Time Stop Time Status Last Admin Dose Admin Cefazolin Sodium 50 ml @ 100 mls/hr Q8HR IV 01/13/25 14:00 UNV Vasopressin 20 units/Sodium Chloride 100 ml @ 9 mls/hr Q11H7M IV 01/13/25 18:45 UNV Potassium Chloride 100 ml @ 50 mls/hr Q2H IV 01/16/25 12:45 01/16/25 18:44 UNV Vancomycin HCl 100 ml @ 100 mls/hr DAILY@1200 IV 01/20/25 12:00 UNV Sodium Chloride 10 ml QSHIFT@10,22 IV 01/26/25 22:00 02/18/25 21:22 10 ML Diagnostic Test (Pha) 1 strip Q6HR 01/31/25 18:00 02/19/25 06:28 1 STRIP Insulin Human Regular FOLLOW SLIDING SCALE Q6HR SC 01/31/25 18:00 02/19/25 06:35 2 UNITS Dextrose 50 ml UD IV 01/31/25 17:00 02/12/25 17:42 50 ML Clonidine HCl 0.1 mg Q7D TD 02/08/25 12:30 02/15/25 14:20 0.1 MG Labetalol HCl 10 mg Q4HP PRN IV 02/08/25 12:30 02/16/25 15:10 10 MG Amino Acids 0 ml @ 0 mls/hr PER PHARMACY IV 02/13/25 10:45 Enoxaparin Sodium 40 mg DAILY SC 02/13/25 15:00 02/18/25 09:09 40 MG Morphine Sulfate 2 mg Q4HPRN PRN IV 02/17/25 16:00 02/19/25 01:15 2 MG Meropenem 50 ml @ 17 mls/hr Q12HR IV 02/18/25 10:00 02/18/25 21:22 17 MLS/HR Vancomycin HCl 0 ml @ 0 mls/hr UD IV 02/17/25 18:45 Vancomycin HCl 100 ml @ 100 mls/hr Q12H IV 02/18/25 08:00 02/18/25 20:59 100 MLS/HR Fat Emulsion Intravenous 150 ml/Sodium Phosphate 12 meq/ Potassium Acetate 20 meq/Potassium Phosphate 33 meq/ Magnesium Sulfate 8 meq/ Multivitamins 10 ml/Amino Acids/ Dextrose 1,382.5 ml @ 58 mls/hr [id number] IV 02/18/25 22:00 02/19/25 21:59 02/18/25 21:09 58 MLS/HR Fat Emulsion Intravenous 150 ml/Sodium Acetate 20 meq/Sodium Phosphate 12 meq/ Potassium Acetate 20 meq/Potassium Phosphate 11 meq/ Calcium Gluconate 2.3 meq/Magnesium Sulfate 8 meq/ Multivitamins 10 ml/Amino Acids/ Dextrose 1,442.4462 ml @ 61 mls/hr [id number] IV 02/19/25 22:00 02/20/25 21:59 laboratory and microbiology Laboratory Tests 02/19/25 02:40 Test 02/19/25 02:40 Range/Units Serum Glucose 139 H 74-106 mg/dL Problem List/Assessment/Plan Problem List/Assessment/Plan 01/14/25 afebrile, low dose BP support, received transfusion, I believe her decreased hematocrit is due to hemodilution. abdomen non distended, soft, wound clean and well approximated, drainage serous . remains intubated and sedated 01/16/25 ALKALOSIS, ABDOMEN NON DISTENDED, SOFT, DRAINAGE SEROUS, WOUND CLEAN AND WELL APPROXIMATED 01/17/25 improved, thrombocytopenia possibly made worse by Fluconazole,will DC, abdomen non distended, wound well approximated without infection, TATY drainage serous, CVP 6, good urine output. 01/18/25 abg reviewed, ,abdomen soft, non distended, TATY drainage clear serous, no bowel activity, febrile, urine output ok, continues with thrombocytopenia,pt and inr slightly elevated. prognosis grave. 01/20/25remains sedated on ventilator, abdomen soft, non distended, faint bowel sounds auscultated by nurse, wound clean and well approximated, TATY drainage clear serous. continues with thrombocytopenia, still behind on intravascular volume( BUN and Creatinine elevated), i would give more IV fluids and DC vancomycin. 01/25/25 afebrile, normotensive, wound clean and well approximated, TATY drainage serous, abdomen non distended, soft, gastrografin small bowel series shows non obstructed GI tract and no evidence of extravasation. It is OK to initiate enteric feedings. 01/29/25 16 DAYS POST OPERATIVELY TRHE TATY DRAINAGE WHICH HAD CONSISTENTLY BEEN SEROUS OR SERO SANGUINEOUS HAS BECOME "DIRTY" BROWNISH DISCOLORATION, HER WOUND IS CLEAN AND WELL APPROXIMATED AND HER ABDOMEN IS SOFT AND NON DISTENDED, CT SCAN SHOWS SO0ME FLUID AND ACCUMULATION OF FLUID AROUND THE SPLEEN, WILL REQUEST CT GUIDED ASPIRATION OF SAME, WILL ORDER IRRIGATION OF DRAINS. SHE SI AFEBRILE AND MAINTAINS NORMAL BLOOD PRESSURE, HER WBC IS NORMAL. 01/30/25 improved, awake, being weaned off vent. abdomen non distended, non tender, taty drainage clearing with irrigation 02/02/25clinically unchanged, gastrografin small bowel series reported and normal, no extravasation reported, will order a follow ujp KUB for tomorrow AM 02/03/25 PATIENT HAD A GASTROGRAFIN SMALL BOWEL SERIES AND A FOLLOW UP KUB X RAYS NEITHER ONE OF WHICH SHOW EXTRAVASATION OF CONTRAST OR EVIDENCE OF FREE CONTRAST IN THE PERITONEAL CAVITY. THERE IS HOWEVER VISCOUS, BROWNISH FLUID DRAINING VIA BOTH TATY DRAINS AND THROUGH INFRAUMBILICAL PORTION OF MIDLINE WOUND, I REMOVED THE RICHIE FROM THE 3 CM SECTION OF THE INFRAUMBILICAL WOUND AND EVACUATED ABOUT 30 CC OF THIS FLUID AND INSTRUCTED THE NURSE TO PLACE A STOMA APPLIANCE ON THIS OPENING. 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 TODAY HER WBC IS ELEVATED, ABDOMEN CONTINUES TO BE NON DISTENDED, SOFT, BUT SHE DOES HAVE SLIGHT TENDERNESS IN THE PERIUMBILICAL AREA. I WILL TREAT THIS EXPECTANTLY FORM THE TIME BEING IN THE HOPE THAT THIS IS A "CONTROLLED" FISTULA AND HOPEFUL WILL HEAL SPONTANEOUSLY WITH NPO AND NUTRITIONAL SUPPORT. WILL WATCH CLOSELY, AFTER A FEW DAYS WILL GET A FISTULOGRAM TO PIN POINT THE ENTERIC ORIGIN OF THE FISTULIZATION. CONTINUE NGT SUCTION AND DRAIN IRRIGATION ORDERED02/05/25 02/05/25 remains sedated and intubated?ventilated, abdomen non distended soft, wound vac in place. TATY drainage serosanguineous 02/08/25 EXTUBATED, GOOD INSPIRATORY EFFORT, BP NML WITHOUT PRESSOR SUPPORT, ABDOMEN SOFT, NON DISTENDED, APPROPRIATELY TENDER, LABS REVIEWED. NO CHANGES TODAY OTHER THAN ALLOW ICE CHIPS PO. WILL ORDER GASTROGRAFIN SMALL BOWEL FOLLOWTHROUGH FOR Friday02/09/25 awake cooperative, wound vac in place, abdomen soft, non distended, appropriately tender, TATY drainage brownish discoloration, will irrigate, her WBC is normal and she is afebrile and normotensive. gastrografin tomorrow 02/10/25 AWAKE,COMFORTABLE, DENIES PAIN, ABDOMEN NON DISTENDED APPROPRIATELY TENDER, WOUND CLEAN AND WELL APPROXIMATED, DRAINS BEING IRRIGATED, LABS OK, GOOD URINE OUTPUT. "SURGICALLY" STABLE 02/11/25 feels well, passing flatus. is hungry, abdomen soft non distended, drainage clearing with irrigation, will wait for Gastrografin small bowel series to be completed, if normal will start po clear liquids 02/12/25 no nausea, change in TATY drainage colort, appears to contaIN, BILE, WILL DC po CLEAR LIQUIDS, CONTINUE ICE CGHIPS, SEND DRAin fluid for amylase and bilirubin, 02/13/25 states she feels well, abdomen non tender, non distended, wound clean and well approximated. drainage slightly clearer, keep npo for now, needs to resume TPN 02/14/25 PATIENT C/O BEING COLD BUT HAS NO PAIN, DRAINAGE SEEMS TO BE CLEARING, SHE HAD A BOWEL MOVEMENTS, ABDOMEN IS SOFT AND NON TENDER, NON DISTENDED, WOUND IS CLEAN AND WELL APPROXIMATED, WILL CONTINUE NPO STATUS AMYLASE ON TATY DRAINAGE FLUID IS GOING TO TAKE SEVERAL DAYS TO BECOME AVAILABLE. CONTINUE TPN 02/16/25 DENIES PAIN,STATES SHE FEELS BETTER, WOUND VAC IN PLACE, ABDOMEN NON TENDER,NON DISTENDED, TATY DRAINAGE SMALL TO MODERATE , WILL CONTINUE IRRIGATING DRAINS, WILL REQUEST GI CONSULT TO CONSIDER ENDOSCOPY. WBC NL,H/H STABLE , ALBUMIN STILL VERY LOW. , 02/17/25 CT SCAN REVIEWED, I SUSPECT THERE IS A SMALL LEAK FROM THE APPEARANCE OF IMAGING ALTHOUGH RADIOLOGIST RECOMMENDED REPEAT CT SCAN (ORDERED). THE DRAINAGE IS SMALL AMOUNT BUT NOW IT IS WITH AN ODOR, I WILL RE INSERT NGT TO ATTEMPT DECREASING THE GASTRIC CONTENTS. ABDOMEN IS SOFT, APPROPRIATELY TENDER, WOUND VAC IN PLACE 02/18/25 AFEBRILE, NORMOTENSIVE4, WBC NL, ALL IMAGING NEGATIVE, ANGIOGRAM SHOWS NO EVIDENCE OF HYPOPERFUSION, CONTRAST AND NON CONTRAST CT SCAN FAILED TO SHOW ANY EVIDENCE OF EXTRAVASATION, THE DRAINAGE CONTINUES TO BE BROWNISH DISCOLORED AND FOULS SMELLING, EXPLAINED TO PT'S SON THAT I HAVE NO EVIDENCE OF ANY GI LEAKAGE, WILL GET A GASTROGRAFIN ENEMA ON FRIDAY, I AM TRYING TO REFRAIN FROM OPERATING ON THE FRAIL ELDERLY PATIENT FOR THE THIRD TIME, SHE WILL NOT TOLERATE ANOTHYER OPERATION WELL. HER ALBUMIN REMAINS VERY LOW.WOUND VAC OK 02/19/25 feels ok,c/o being cold, abdomen soft. non distended, minimally tender, drainage seems to be little less, labs ok, continue as is. Plan discussed with: Patient Dietary Evaluation Review Comments: Nutrition Recommendation: 1) TPN to meet at least 75% estimated needs within 7 days 2) Monitor NPO status, lab values, wt trend, I/O Expected Outcomes/Goals: To meet >75% estimated needs Lab values to improve Fu 2-3 days Is there a minimum of two crit: Yes MELVA RAMESH MD Feb 19, 2025 09:40
--- NOTE | 2025-02-19 11:25 | DVHPNRES ---
Progress Note Date Seen: Feb 19, 2025 Resident Creating Document: ANURAG CHERRY RESIDENT Has the PT tested + for MRSA If YES, has PT been informed?: No Medical Necessity Reason Pt with a Central, PICC or Fol: Yes The following are medically ne: PICC Line, Leach Catheter Reason for leach catheter: Strict I&O Subjective Review of Systems This is a 80-year-old lady with past medical history of hypertension, AFib (on Eliquis), diabetes type 2, CKD, came to the hospital due to abdominal pain, and constipation. Admitted on 01/13/2025. Found to have peritonitis due to bowel perforation, and underwent emergent laparotomy with subsequent resection of perforated small bowel and enteroenterostomy. Due to abnormal CARMEN drainage, second exploratory laparotomy performed on 02/04 and found to have perforation near to previous perforation area, underwent resection of area with subsequent anastomosis of proximal jejunal loops. Extubated on 02/07. 02/19: Patient seen and evaluated in bedside today. HIDA scan on 02/18/2025 shows no evidence of acute cholecystitis. Vitals insurance continue TPN. Surgery on board. Abdominal drainage tube in place. Objective vital signs Vital Sign Date Time Temp Pulse Resp B/P (MAP) Pulse Ox O2 Delivery O2 Flow Rate FiO2 02/19/25 08:00 103 17 99 Room Air* 0 21 02/19/25 06:00 128/55 (79) 02/19/25 04:00 98.4 98.4 Total Intake and Output 02/18/25 02/18/25 02/19/25 15:00 23:00 07:00 Intake Total 646 ml 622 ml 423 ml Output Total 870 ml 951 ml Balance 646 ml -248 ml -528 ml medications Current Medications Medications Dose Ordered Sig/Isaura Route Start Time Stop Time Status Last Admin Dose Admin Cefazolin Sodium 50 ml @ 100 mls/hr Q8HR IV 01/13/25 14:00 UNV Vasopressin 20 units/Sodium Chloride 100 ml @ 9 mls/hr Q11H7M IV 01/13/25 18:45 UNV Potassium Chloride 100 ml @ 50 mls/hr Q2H IV 01/16/25 12:45 01/16/25 18:44 UNV Vancomycin HCl 100 ml @ 100 mls/hr DAILY@1200 IV 01/20/25 12:00 UNV Sodium Chloride 10 ml QSHIFT@10,22 IV 01/26/25 22:00 02/19/25 09:40 10 ML Diagnostic Test (Pha) 1 strip Q6HR 01/31/25 18:00 02/19/25 06:28 1 STRIP Insulin Human Regular FOLLOW SLIDING SCALE Q6HR SC 01/31/25 18:00 02/19/25 06:35 2 UNITS Dextrose 50 ml UD IV 01/31/25 17:00 02/12/25 17:42 50 ML Clonidine HCl 0.1 mg Q7D TD 02/08/25 12:30 02/15/25 14:20 0.1 MG Labetalol HCl 10 mg Q4HP PRN IV 02/08/25 12:30 02/16/25 15:10 10 MG Amino Acids 0 ml @ 0 mls/hr PER PHARMACY IV 02/13/25 10:45 Enoxaparin Sodium 40 mg DAILY SC 02/13/25 15:00 02/19/25 09:46 40 MG Morphine Sulfate 2 mg Q4HPRN PRN IV 02/17/25 16:00 02/19/25 01:15 2 MG Meropenem 50 ml @ 17 mls/hr Q12HR IV 02/18/25 10:00 02/18/25 21:22 17 MLS/HR Vancomycin HCl 0 ml @ 0 mls/hr UD IV 02/17/25 18:45 Vancomycin HCl 100 ml @ 100 mls/hr Q12H IV 02/18/25 08:00 02/19/25 09:38 100 MLS/HR Fat Emulsion Intravenous 150 ml/Sodium Phosphate 12 meq/ Potassium Acetate 20 meq/Potassium Phosphate 33 meq/ Magnesium Sulfate 8 meq/ Multivitamins 10 ml/Amino Acids/ Dextrose 1,382.5 ml @ 58 mls/hr [id number] IV 02/18/25 22:00 02/19/25 21:59 02/18/25 21:09 58 MLS/HR Fat Emulsion Intravenous 150 ml/Sodium Acetate 20 meq/Sodium Phosphate 12 meq/ Potassium Acetate 20 meq/Potassium Phosphate 11 meq/ Calcium Gluconate 2.3 meq/Magnesium Sulfate 8 meq/ Multivitamins 10 ml/Amino Acids/ Dextrose 1,442.4462 ml @ 61 mls/hr [id number] IV 02/19/25 22:00 02/20/25 21:59 Examination General Appearance: Alert, Oriented X3, Cooperative, No acute distress HEENT: Atraumatic, PERRLA, EOMI, Mucous membrane moist/pink Respiratory: Clear to auscultation, Normal air movement Cardiovascular: Regular rate, Normal S1, Normal S2, No murmurs, no chest wall tenderness Abdominal: Mild abdominal tenderness, with wound VAC at the midline, for CARMEN drain at 4 quadrant, draining brownish fluid Extremities: No clubbing, No cyanosis, No edema, Normal pulses, No tenderness/swelling Skin: No rashes, No breakdown, No significant lesion Neuro: Grossly intact Psych/Mental Status: Mental status NL, Mood NL laboratory and microbiology Laboratory Tests 02/19/25 02:40 Test 02/19/25 02:40 Range/Units Serum Glucose 139 H 74-106 mg/dL Microbiology Date/Time Source Procedure Growth Status 02/17/25 19:45 Peritoneal Fluid Gram Stain - Final Resulted 02/17/25 19:45 Peritoneal Fluid Body Fluid Culture - Preliminary Resulted 02/15/25 10:12 Urine - [place] Urine Culture - Preliminary Yeast, not Zoe albicans Resulted 01/29/25 14:00 Sputum Gram Stain - Final Complete 01/29/25 14:00 Respiratory Culture - Final Presumptive Zoe albicans Complete 01/29/25 10:40 Blood Blood Culture - Final NO GROWTH AFTER 5 DAYS OF INCUBATION. Complete 01/13/25 17:10 Nose MRSA Screen - Final Complete Problem List/Assessment/Plan Problem List/Assessment/Plan This is a 80-year-old lady with past medical history of hypertension, AFib (on Eliquis), diabetes type 2, CKD, came to the hospital due to abdominal pain, and constipation. Admitted on 01/13/2025. Found to have peritonitis due to bowel perforation, and underwent emergent laparotomy with subsequent resection of perforated small bowel and enteroenterostomy. Due to abnormal CARMEN drainage, second exploratory laparotomy performed on 02/04 and found to have perforation near to previous perforation area, underwent resection of area with subsequent anastomosis of proximal jejunal loops. Extubated on 02/07. 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 PULMONARY: Acute hypoxic respiratory failure secondary to bilateral pleural effusion/pneumonia Chest x-ray demonstrated bilateral hazy opacities * Sputum culture from 01/29 shows presumptive Zoe albicans * Status post extubation, on nasal cannula * Plan: Physiotherapy GASTROINTESTINAL: Peritonitis due to Perforation of the small bowel, status post exploratory laparotomy Transaminitis secondary to shock Perisplenic abscess * Peritoneal fluid culture from 01/13 shows E coli and Klebsiella pneumoniae sensitive to meropenem (given for 11 days, stopped on 01/31) * CT scan on 01/31 shows, moderate sized fluid collection in the perisplenic region * IR consulted, put pigtail drain, and has drained 50 cc purulent fluid * Patient has brownish discharge of the drain * Small bowel series, normal study * Patient has leakage from surgical area and drainage * Second laparotomy, performed on 02/04, lysis of adhesions, evacuation of pelvic and abdominal infection, resection of proximal jejunum, ileostomy, and jejunostomy and put for CARMEN drains at 4 quadrants * Small bowel series on 02/11, normal study, per surgery okay to start clear liquid diet * CT abdominopelvic on 02/16 showed, left abdominal pneumoperitoneum which overall appears similar/slightly more pronounced than on the examination from 01/29/2025, appears to be a small amount of extraluminal contrast,and perisplenic subcapsular collection/subdiaphragmatic collection measuring 7.1 x 1.1 cm * He had a scan on 02/18 shows no evidence of acute cholecystitis. * Surgery on board * Plan: Started back meropenem (02/17), and vancomycin (02/17), NPO, TPN, NG tube GENITOURINARY: ISRRAEL likely due to shock/VMN, resolved Hypocalcemia * Monitoring ENDOCRINE: History of hypothyroidism Type 2 diabetes mellitus, hemoglobin A1c 8.2 * Few episodes of hypoglycemia * TSH is raised at 16.29, normal free T4 METABOLIC: Hypokalemia Hyperkalemia Hypoalbuminemia Hyponatremia, Nephrology recommended D5W at 75 mL/hour Severe metabolic protein malnutrition * Anion gap metabolic acidosis secondary to bowel ischemia leading to lactic acidosis HEME: Acute on chronic anemia secondary to hemodilution/post surgical 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 * 5 unit of PRBC, 2 pt of platelet, has been given INFECTIOUS DISEASE: Sepsis with septic shock secondary to perforation of the small bowel * Blood culture from 01/29 preliminary result shows Gram-positive rods (1/4 sets of blood culture) * Discontinued levofloxacin Flagyl on 02/03 * Discontine vancomycin and meropenem started on 02/03 given up to 02/13 MUSCULOSKELETAL: Rib fracture, due to fall Gait instability * plan: physical therapy DIET: NPO DVT prophylax: Hold GI prophylaxis: Pantoprazole Bowel regimen: Code status: Full code LINES/DRAINS/ACCESS: ETT: Intubated on 01/14/25, extubated on 02/07 IV access: Rt upper thigh PICC placed on 01/26/2025 Drips: off from pressor and sedatives Leach catheter: Placed on 01/14, exchange on 02/14 CARMEN drainage: Four CARMEN drain in 4 quadrants of abdomen DISPOSITION: Downgraded to SHERRY Patient's status discussed with patient and patient's son at the bedside. Discussed current management plan and verbally agree discussed. Critical care time spent more than 53 minutes, including patient care, chart review, and updating the family. Excluding any procedures. Case discussed with Dr. Rodriguez. Plan discussed with: Patient, Son, Other (Nurse) Dietary Evaluation Review Comments: Nutrition Recommendation: 1) TPN to meet at least 75% estimated needs within 7 days 2) Monitor NPO status, lab values, wt trend, I/O Expected Outcomes/Goals: To meet >75% estimated needs Lab values to improve Fu 2-3 days Is there a minimum of two crit: Yes CC Plasma Assessment Blood Product Administration S: [id number] Date of Service: Feb 19, 2025 Billing Provider: ROCIO ENNIS MD Common Visit Codes: NOT BILLABLE ANURAG CHERRY RESIDENT Feb 19, 2025 11:25 ROCIO ENNIS MD Mar 07, 2025 15:46
[2025-02-19] MEDS: HYDROmorphone HCL 2 MG/ML VL/or syr IV PRN (12:32)
--- NOTE | 2025-02-19 21:00 | DVHPN2 ---
Progress Note - Dictate Date Seen: Feb 19, 2025 Has the PT tested + for MRSA If YES, has PT been informed?: No Medical Necessity Reason Pt with a Central, PICC or Fol: Yes The following are medically ne: PICC Line, Leach Catheter Reason for leach catheter: Strict I&O Subjective No new complaints; afebrile normotensive awake and alert Her white count is normal and imaging study shows no evidence of contrast extravasation However her CARMEN drainage continues to be dark greenish liquid HIDA Scan negative vital signs Vital Sign Date Time Temp Pulse Resp B/P (MAP) Pulse Ox O2 Delivery O2 Flow Rate FiO2 02/19/25 20:00 106 19 110/49 (69) 95 02/19/25 20:00 Nasal Cannula* 2 28 02/19/25 17:00 98.2 98.2 Total Intake and Output 02/18/25 02/18/25 02/19/25 15:00 23:00 07:00 Intake Total 646 ml 622 ml 481 ml Output Total 870 ml 1199 ml Balance 646 ml -248 ml -718 ml medications Current Medications Medications Dose Ordered Sig/Isaura Route Start Time Stop Time Status Last Admin Dose Admin Cefazolin Sodium 50 ml @ 100 mls/hr Q8HR IV 01/13/25 14:00 UNV Vasopressin 20 units/Sodium Chloride 100 ml @ 9 mls/hr Q11H7M IV 01/13/25 18:45 UNV Potassium Chloride 100 ml @ 50 mls/hr Q2H IV 01/16/25 12:45 01/16/25 18:44 UNV Vancomycin HCl 100 ml @ 100 mls/hr DAILY@1200 IV 01/20/25 12:00 UNV Sodium Chloride 10 ml QSHIFT@22 IV 01/26/25 22:00 02/19/25 09:40 10 ML Diagnostic Test (Pha) 1 strip Q6HR 01/31/25 18:00 02/19/25 16:58 1 STRIP Insulin Human Regular FOLLOW SLIDING SCALE Q6HR SC 01/31/25 18:00 02/19/25 16:59 2 UNITS Dextrose 50 ml UD IV 01/31/25 17:00 02/12/25 17:42 50 ML Clonidine HCl 0.1 mg Q7D TD 02/08/25 12:30 02/15/25 14:20 0.1 MG Labetalol HCl 10 mg Q4HP PRN IV 02/08/25 12:30 02/16/25 15:10 10 MG Amino Acids 0 ml @ 0 mls/hr PER PHARMACY IV 02/13/25 10:45 Enoxaparin Sodium 40 mg DAILY SC 02/13/25 15:00 02/19/25 09:46 40 MG Meropenem 50 ml @ 17 mls/hr Q12HR IV 02/18/25 10:00 02/19/25 11:24 17 MLS/HR Vancomycin HCl 0 ml @ 0 mls/hr UD IV 02/17/25 18:45 Vancomycin HCl 100 ml @ 100 mls/hr Q12H IV 02/18/25 08:00 02/19/25 09:38 100 MLS/HR Fat Emulsion Intravenous 150 ml/Sodium Phosphate 12 meq/ Potassium Acetate 20 meq/Potassium Phosphate 33 meq/ Magnesium Sulfate 8 meq/ Multivitamins 10 ml/Amino Acids/ Dextrose 1,382.5 ml @ 58 mls/hr [id number] IV 02/18/25 22:00 02/19/25 21:59 02/18/25 21:09 58 MLS/HR Fat Emulsion Intravenous 150 ml/Sodium Phosphate 12 meq/ Potassium Acetate 40 meq/Potassium Phosphate 11 meq/ Magnesium Sulfate 8 meq/ Multivitamins 10 ml/Chromium/ Copper/Manganese/ Zinc 1 ml/Amino Acids/Dextrose 1,438.5 ml @ 61 mls/hr [id number] IV 02/19/25 22:00 02/20/25 21:59 Hydromorphone HCl 0.5 mg Q4HPRN PRN IV 02/19/25 12:00 02/19/25 16:53 0.5 MG objective General Appearance: Alert, Oriented X3, Cooperative, No acute distress HEENT: Atraumatic, PERRLA, EOMI, Mucous membrane moist/pink Respiratory: Clear to auscultation, Normal air movement Cardiovascular: Regular rate, Normal S1, Normal S2, No murmurs, no chest wall tenderness Abdominal: Mild abdominal tenderness, with wound VAC at the midline, for CAMREN drain at 4 quadrant, draining brownish fluid Extremities: No clubbing, No cyanosis, No edema, Normal pulses, No tenderness/swelling Skin: No rashes, No breakdown, No significant lesion Neuro: Grossly intact Psych/Mental Status: Mental status NL, Mood NL laboratory and microbiology Laboratory Tests 02/19/25 02:40 Test 02/19/25 02:40 Range/Units Serum Glucose 139 H 74-106 mg/dL Problems(with codes): (1) Ischemic bowel disease (2) Acute renal injury (3) Intestinal perforation Prognosis Plan Patient is being closely monitored by surgical consult labs ok, continue as is for now Patient is on IV antibiotics and on IV TPN. Dietary Evaluation Review Comments: Nutrition Recommendation: 1) TPN to meet at least 75% estimated needs within 7 days 2) Monitor NPO status, lab values, wt trend, I/O Expected Outcomes/Goals: To meet >75% estimated needs Lab values to improve Fu 2-3 days Is there a minimum of two crit: Yes Plan discussed with: Patient, Other (ICU Nurse) CC Plasma Assessment Blood Product Administration S: [id number] FRANCISCA RODRÍGUEZ MD Feb 19, 2025 21:00
[2025-02-19] MEDS: TPN PER PHARMACY IV NR (21:14)
[2025-02-20] VITALS (25 sets, daily range): BP systolic 93–128; BP diastolic 40–63; PULSE 93–112; RESP 14–20; TEMP 98.1–99.7; O2SAT 94–97
[2025-02-20 04:16] LABS: Hemoglobin 8.4 g/dL (12.2-16.2)
[2025-02-20 04:18] LABS: Hematocrit 25.0 % (36.0-46.0); Mean Corpuscular Hemoglobin 30.9 pg (28.0-32.0); Mean Corpuscular Volume 91.7 fL (80.0-100.0); Nucleated Red Blood Cells % 0.2 %
[2025-02-20 04:25] LABS: Alanine Aminotransferase 25 U/L (7-40); Anion Gap 9 (5-15); BUN/Creatinine Ratio 49.4 (10.0-20.0); Bilirubin, Total 1.0 mg/dL (0.2-1.0); Carbon Dioxide 21 mmol/L (20-31); Magnesium 2.0 mg/dL (1.6-2.6); Potassium 3.7 mmol/L (3.5-5.1); Sodium 138 mmol/L (136-145); Total Protein 6.2 g/dL (5.7-8.2)
[2025-02-20 05:11] LABS: Albumin 2.4 g/dL (3.2-4.8); Alkaline Phosphatase 247 U/L (46-116); Blood Urea Nitrogen 40 mg/dL (9-23); Calcium 8.3 mg/dL (8.7-10.4); Chloride 108 mmol/L (98-107); Glucose 126 mg/dL (74-106)
--- NOTE | 2025-02-20 12:12 | DVHPNRES ---
Progress Note Date Seen: Feb 20, 2025 Resident Creating Document: GIGI FELIZ AMBROSE Has the PT tested + for MRSA If YES, has PT been informed?: No Medical Necessity Reason Pt with a Central, PICC or Fol: Yes The following are medically ne: PICC Line, Leach Catheter Reason for leach catheter: Strict I&O Subjective Review of Systems This is a 80-year-old lady with past medical history of hypertension, AFib (on Eliquis), diabetes type 2, CKD, came to the hospital due to abdominal pain, and constipation. Admitted on 01/13/2025. Found to have peritonitis due to bowel perforation, and underwent emergent laparotomy with subsequent resection of perforated small bowel and enteroenterostomy. Due to abnormal CARMEN drainage, second exploratory laparotomy performed on 02/04 and found to have perforation near to previous perforation area, underwent resection of area with subsequent anastomosis of proximal jejunal loops. Extubated on 02/07. Patient seen and evaluated in bedside today. Vitals insurance continue TPN. Surgery on board. Abdominal drainage tube in place. Objective vital signs Vital Sign Date Time Temp Pulse Resp B/P (MAP) Pulse Ox O2 Delivery O2 Flow Rate FiO2 02/20/25 11:00 99 15 122/56 (78) 96 02/20/25 10:00 Nasal Cannula* 2 28 02/20/25 08:00 98.1 98.1 Total Intake and Output 02/19/25 02/19/25 02/20/25 15:00 23:00 07:00 Intake Total 464 ml 504 ml 505 ml Output Total 1510 ml 1578 ml Balance 464 ml -1006 ml -1073 ml medications Current Medications Medications Dose Ordered Sig/Isaura Route Start Time Stop Time Status Last Admin Dose Admin Cefazolin Sodium 50 ml @ 100 mls/hr Q8HR IV 01/13/25 14:00 UNV Vasopressin 20 units/Sodium Chloride 100 ml @ 9 mls/hr Q11H7M IV 01/13/25 18:45 UNV Potassium Chloride 100 ml @ 50 mls/hr Q2H IV 01/16/25 12:45 01/16/25 18:44 UNV Vancomycin HCl 100 ml @ 100 mls/hr DAILY@1200 IV 01/20/25 12:00 UNV Sodium Chloride 10 ml QSHIFT@,22 IV 01/26/25 22:00 02/20/25 09:58 10 ML Diagnostic Test (Pha) 1 strip Q6HR 01/31/25 18:00 02/20/25 12:00 1 STRIP Insulin Human Regular FOLLOW SLIDING SCALE Q6HR SC 01/31/25 18:00 02/20/25 12:01 8 UNITS Dextrose 50 ml UD IV 01/31/25 17:00 02/12/25 17:42 50 ML Clonidine HCl 0.1 mg Q7D TD 02/08/25 12:30 02/15/25 14:20 0.1 MG Labetalol HCl 10 mg Q4HP PRN IV 02/08/25 12:30 02/16/25 15:10 10 MG Amino Acids 0 ml @ 0 mls/hr PER PHARMACY IV 02/13/25 10:45 Enoxaparin Sodium 40 mg DAILY SC 02/13/25 15:00 02/20/25 09:58 40 MG Meropenem 50 ml @ 17 mls/hr Q12HR IV 02/18/25 10:00 02/20/25 09:41 17 MLS/HR Vancomycin HCl 0 ml @ 0 mls/hr UD IV 02/17/25 18:45 Fat Emulsion Intravenous 150 ml/Sodium Phosphate 12 meq/ Potassium Acetate 40 meq/Potassium Phosphate 11 meq/ Magnesium Sulfate 8 meq/ Multivitamins 10 ml/Chromium/ Copper/Manganese/ Zinc 1 ml/Amino Acids/Dextrose 1,438.5 ml @ 61 mls/hr [id number] IV 02/19/25 22:00 02/20/25 21:59 02/19/25 21:14 61 MLS/HR Hydromorphone HCl 0.5 mg Q4HPRN PRN IV 02/19/25 12:00 02/20/25 09:40 0.5 MG Vancomycin HCl 100 ml @ 100 mls/hr Q18H IV 02/20/25 14:00 Fat Emulsion Intravenous 150 ml/Sodium Acetate 40 meq/Potassium Acetate 40 meq/ Magnesium Sulfate 10 meq/ Multivitamins 10 ml/Chromium/ Copper/Manganese/ Zinc 1 ml/Amino Acids/Dextrose/ Purified Water 1,453.5 ml @ 60 mls/hr [id number] IV 02/20/25 22:00 02/21/25 21:59 Examination General Appearance: Alert, Oriented X3, Cooperative, No acute distress HEENT: Atraumatic, PERRLA, EOMI, Mucous membrane moist/pink Respiratory: Clear to auscultation, Normal air movement Cardiovascular: Regular rate, Normal S1, Normal S2, No murmurs, no chest wall tenderness Abdominal: Mild abdominal tenderness, with wound VAC at the midline, for CARMEN drain at 4 quadrant, draining brownish fluid Extremities: No clubbing, No cyanosis, No edema, Normal pulses, No tenderness/swelling Skin: No rashes, No breakdown, No significant lesion Neuro: Grossly intact Psych/Mental Status: Mental status NL, Mood NL laboratory and microbiology Laboratory Tests 02/20/25 03:45 Test 02/20/25 03:45 Range/Units Serum Glucose 126 H 74-106 mg/dL Microbiology Date/Time Source Procedure Growth Status 02/17/25 19:45 Peritoneal Fluid Gram Stain - Final Resulted 02/17/25 19:45 Body Fluid Culture - Preliminary Escherichia coli Resulted 02/15/25 10:12 Urine - Leach [place] Urine Culture - Final Yeast, not Zoe albicans Complete 01/29/25 14:00 Sputum Gram Stain - Final Complete 01/29/25 14:00 Respiratory Culture - Final Presumptive Zoe albicans Complete 01/29/25 10:40 Blood Blood Culture - Final NO GROWTH AFTER 5 DAYS OF INCUBATION. Complete 01/13/25 17:10 Nose MRSA Screen - Final Complete Labs and/or images reviewed: Labs reviewed by me, Image(s) reviewed by me Problem List/Assessment/Plan Problem List/Assessment/Plan This is a 80-year-old lady with past medical history of hypertension, AFib (on Eliquis), diabetes type 2, CKD, came to the hospital due to abdominal pain, and constipation. Admitted on 01/13/2025. Found to have peritonitis due to bowel perforation, and underwent emergent laparotomy with subsequent resection of perforated small bowel and enteroenterostomy. Due to abnormal CARMEN drainage, second exploratory laparotomy performed on 02/04 and found to have perforation near to previous perforation area, underwent resection of area with subsequent anastomosis of proximal jejunal loops. Extubated on 02/07. 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 PULMONARY: Acute hypoxic respiratory failure secondary to bilateral pleural effusion/pneumonia Chest x-ray demonstrated bilateral hazy opacities * Sputum culture from 01/29 shows presumptive Zoe albicans * Status post extubation, on nasal cannula * Plan: Physiotherapy GASTROINTESTINAL: Peritonitis due to Perforation of the small bowel, status post exploratory laparotomy Transaminitis secondary to shock Perisplenic abscess * Peritoneal fluid culture from 01/13 shows E coli and Klebsiella pneumoniae sensitive to meropenem (given for 11 days, stopped on 01/31) * CT scan on 01/31 shows, moderate sized fluid collection in the perisplenic region * IR consulted, put pigtail drain, and has drained 50 cc purulent fluid * Patient has brownish discharge of the drain * Small bowel series, normal study * Patient has leakage from surgical area and drainage * Second laparotomy, performed on 02/04, lysis of adhesions, evacuation of pelvic and abdominal infection, resection of proximal jejunum, ileostomy, and jejunostomy and put for CARMEN drains at 4 quadrants * Small bowel series on 02/11, normal study, per surgery okay to start clear liquid diet * CT abdominopelvic on 02/16 showed, left abdominal pneumoperitoneum which overall appears similar/slightly more pronounced than on the examination from 01/29/2025, appears to be a small amount of extraluminal contrast,and perisplenic subcapsular collection/subdiaphragmatic collection measuring 7.1 x 1.1 cm * Peritoneal fluid culture 02/17 shows E coli, sensitive to meropenem * Plan: Started back meropenem (02/17), and vancomycin (02/17), NPO, TPN, NG tube, Gastrografin enema on 03/10 GENITOURINARY: ISR[place] likely due to shock/VMN, resolved * Monitoring ENDOCRINE: History of hypothyroidism Type 2 diabetes mellitus, hemoglobin A1c 8.2 * Few episodes of hypoglycemia * TSH is raised at 16.29, normal free T4 METABOLIC: Hypokalemia Hyperkalemia Hyponatremia, Nephrology recommended D5W at 75 mL/hour Severe metabolic protein malnutrition * Anion gap metabolic acidosis secondary to bowel ischemia leading to lactic acidosis HEME: Acute on chronic anemia secondary to hemodilution/post surgical 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 * 5 unit of PRBC, 2 pt of platelet, has been given INFECTIOUS DISEASE: Sepsis with septic shock secondary to perforation of the small bowel * Blood culture from 01/29 preliminary result shows Gram-positive rods (1/4 sets of blood culture) * Discontinued levofloxacin Flagyl on 02/03 * Discontine vancomycin and meropenem started on 02/03 given up to 02/13 MUSCULOSKELETAL: Rib fracture, due to fall DIET: Clear liquid diet DVT prophylax: Hold GI prophylaxis: Pantoprazole Bowel regimen: Code status: Full code LINES/DRAINS/ACCESS: ETT: Intubated on 01/14/25, extubated on 02/07 IV access: Rt upper thigh PICC placed on 01/26/2025 Drips: off from pressor and sedatives Leach catheter: Placed on 01/14, exchange on 02/14 CARMEN drainage: Four CARMEN drain in 4 quadrants of abdomen DISPOSITION: Downgraded to SHERRY Patient's status discussed with patient and patient's son at the bedside. Critical care time spent more than 57 minutes, including patient care, chart review, and updating the family. Excluding any procedures. Case discussed with Dr. Rodriguez Plan discussed with: Patient, Son, Other My Orders My Orders Orders - GIGI FELIZ RESDIADRIANA Procedure Category Date Status Time Vancomycin 750mg Kit PHA 02/20/25 In Process (Vancomycin Hcl) 14:00 Complete Blood Count LAB 02/21/25 Verified 04:00 Creatinine LAB 02/21/25 Verified 04:00 Vancomycin,Trough LAB 02/22/25 Verified 19:00 Vancomycin Per SAPPHIRE 02/20/25 In Process Pharmacy Protoc 09:34 Dietary Evaluation Review Comments: Nutrition Recommendation: 1) TPN to meet at least 75% estimated needs within 7 days 2) Monitor NPO status, lab values, wt trend, I/O Expected Outcomes/Goals: To meet >75% estimated needs Lab values to improve Fu 2-3 days Is there a minimum of two crit: Yes CC Plasma Assessment Blood Product Administration S: [id number] GIGI FELIZ Feb 20, 2025 12:12
[2025-02-20] MEDS: VANCOMYCIN 750MG KIT 100 ML IV SCH (13:52)
--- NOTE | 2025-02-20 20:19 | DVHPN2 ---
Progress Note - Dictate Date Seen: Feb 20, 2025 Has the PT tested + for MRSA If YES, has PT been informed?: No Medical Necessity Reason Pt with a Central, PICC or Fol: Yes The following are medically ne: PICC Line, Leach Catheter Reason for leach catheter: Strict I&O Subjective No new complaints; afebrile normotensive awake and alert Her white count is normal and imaging study shows no evidence of contrast extravasation However her CARMEN drainage continues to be dark greenish liquid HIDA Scan negative vital signs Vital Sign Date Time Temp Pulse Resp B/P (MAP) Pulse Ox O2 Delivery O2 Flow Rate FiO2 02/20/25 18:00 17 96 Room Air* 0 21 02/20/25 18:00 104 02/20/25 18:00 106/62 (77) 02/20/25 16:00 99.6 99.6 Total Intake and Output 02/19/25 02/19/25 02/20/25 15:00 23:00 07:00 Intake Total 464 ml 504 ml 505 ml Output Total 1510 ml 1578 ml Balance 464 ml -1006 ml -1073 ml medications Current Medications Medications Dose Ordered Sig/Isaura Route Start Time Stop Time Status Last Admin Dose Admin Cefazolin Sodium 50 ml @ 100 mls/hr Q8HR IV 01/13/25 14:00 UNV Vasopressin 20 units/Sodium Chloride 100 ml @ 9 mls/hr Q11H7M IV 01/13/25 18:45 UNV Potassium Chloride 100 ml @ 50 mls/hr Q2H IV 01/16/25 12:45 01/16/25 18:44 UNV Vancomycin HCl 100 ml @ 100 mls/hr DAILY@1200 IV 01/20/25 12:00 UNV Sodium Chloride 10 ml QSHIFT@10,22 IV 01/26/25 22:00 02/20/25 09:58 10 ML Diagnostic Test (Pha) 1 strip Q6HR 01/31/25 18:00 02/20/25 17:54 1 STRIP Insulin Human Regular FOLLOW SLIDING SCALE Q6HR SC 01/31/25 18:00 02/20/25 17:54 4 UNITS Dextrose 50 ml UD IV 01/31/25 17:00 02/12/25 17:42 50 ML Clonidine HCl 0.1 mg Q7D TD 02/08/25 12:30 02/15/25 14:20 0.1 MG Labetalol HCl 10 mg Q4HP PRN IV 02/08/25 12:30 02/16/25 15:10 10 MG Amino Acids 0 ml @ 0 mls/hr PER PHARMACY IV 02/13/25 10:45 Enoxaparin Sodium 40 mg DAILY SC 02/13/25 15:00 02/20/25 09:58 40 MG Meropenem 50 ml @ 17 mls/hr Q12HR IV 02/18/25 10:00 02/20/25 09:41 17 MLS/HR Vancomycin HCl 0 ml @ 0 mls/hr UD IV 02/17/25 18:45 Fat Emulsion Intravenous 150 ml/Sodium Phosphate 12 meq/ Potassium Acetate 40 meq/Potassium Phosphate 11 meq/ Magnesium Sulfate 8 meq/ Multivitamins 10 ml/Chromium/ Copper/Manganese/ Zinc 1 ml/Amino Acids/Dextrose 1,438.5 ml @ 61 mls/hr [id number] IV 02/19/25 22:00 02/20/25 21:59 02/19/25 21:14 61 MLS/HR Hydromorphone HCl 0.5 mg Q4HPRN PRN IV 02/19/25 12:00 02/20/25 17:52 0.5 MG Vancomycin HCl 100 ml @ 100 mls/hr Q18H IV 02/20/25 14:00 02/20/25 13:52 100 MLS/HR Fat Emulsion Intravenous 150 ml/Sodium Acetate 40 meq/Potassium Acetate 40 meq/ Magnesium Sulfate 10 meq/ Multivitamins 10 ml/Chromium/ Copper/Manganese/ Zinc 1 ml/Amino Acids/Dextrose/ Purified Water 1,453.5 ml @ 60 mls/hr [id number] IV 02/20/25 22:00 02/21/25 21:59 objective General Appearance: Alert, Oriented X3, Cooperative, No acute distress HEENT: Atraumatic, PERRLA, EOMI, Mucous membrane moist/pink Respiratory: Clear to auscultation, Normal air movement Cardiovascular: Regular rate, Normal S1, Normal S2, No murmurs, no chest wall tenderness Abdominal: Mild abdominal tenderness, with wound VAC at the midline, for CARMEN drain at 4 quadrant, draining brownish fluid Extremities: No clubbing, No cyanosis, No edema, Normal pulses, No tenderness/swelling Skin: No rashes, No breakdown, No significant lesion Neuro: Grossly intact Psych/Mental Status: Mental status NL, Mood NL laboratory and microbiology Laboratory Tests 02/20/25 03:45 Test 02/20/25 03:45 Range/Units Serum Glucose 126 H 74-106 mg/dL Problems(with codes): (1) Ischemic bowel disease (2) Acute renal injury (3) Intestinal perforation Prognosis Plan Patient is being closely monitored by surgical consult labs ok, continue as is for now Patient is on IV antibiotics and on IV TPN. There is a plan for possible Gastrografin enema study Consider MRI abdomen with contrast both oral and IV Continue IV TPN and IV antibiotics Dietary Evaluation Review Comments: Nutrition Recommendation: 1) TPN to meet at least 75% estimated needs within 7 days 2) Monitor NPO status, lab values, wt trend, I/O Expected Outcomes/Goals: To meet >75% estimated needs Lab values to improve Fu 2-3 days Is there a minimum of two crit: Yes Plan discussed with: Patient CC Plasma Assessment Blood Product Administration S: [id number] FRANCISCA RODRÍGUEZ MD Feb 20, 2025 20:19
[2025-02-20] MEDS: TPN PER PHARMACY IV NR (21:24)
[2025-02-21] VITALS (24 sets, daily range): BP systolic 94–139; BP diastolic 46–67; PULSE 94–106; RESP 13–24; TEMP 98.1–98.9; O2SAT 94–99
[2025-02-21 04:30] LABS: Hematocrit 25.7 % (36.0-46.0); Hemoglobin 8.6 g/dL (12.2-16.2); Mean Corpuscular Hemoglobin 30.5 pg (28.0-32.0); Mean Corpuscular Volume 91.2 fL (80.0-100.0); Nucleated Red Blood Cells % 0.0 %
[2025-02-21 04:58] LABS: Alanine Aminotransferase 23 U/L (7-40); Anion Gap 10 (5-15); BUN/Creatinine Ratio 46.0 (10.0-20.0); Carbon Dioxide 21 mmol/L (20-31); Chloride 107 mmol/L (98-107); Magnesium 2.1 mg/dL (1.6-2.6); Potassium 3.6 mmol/L (3.5-5.1); Sodium 138 mmol/L (136-145); Total Protein 6.4 g/dL (5.7-8.2)
[2025-02-21 05:00] LABS: Bilirubin, Total 0.9 mg/dL (0.2-1.0)
[2025-02-21 05:12] LABS: Albumin 2.5 g/dL (3.2-4.8); Alkaline Phosphatase 237 U/L (46-116); Blood Urea Nitrogen 40 mg/dL (9-23); Calcium 8.5 mg/dL (8.7-10.4); Glucose 176 mg/dL (74-106)
[2025-02-21] MEDS: POTASSIUM PHOSPHATE 22 MEQ in SODIUM CHL 0.9% 100 ML IV ONE (11:00)
[2025-02-21] MEDS: ONDANSETRON HCL 4 MG/2 ML VIAL IV PRN (11:02)
[2025-02-21] MEDS: GASTROGRAFIN 120 ML SOL ONE ×2 (11:07→11:08)
--- NOTE | 2025-02-21 16:56 | DVHPNRES ---
Progress Note Date Seen: Feb 21, 2025 Resident Creating Document: GIGI FELIZ AMBROSE Has the PT tested + for MRSA If YES, has PT been informed?: No Medical Necessity Reason Pt with a Central, PICC or Fol: Yes The following are medically ne: PICC Line, Leach Catheter Reason for leach catheter: Strict I&O Subjective Review of Systems This is a 80-year-old lady with past medical history of hypertension, AFib (on Eliquis), diabetes type 2, CKD, came to the hospital due to abdominal pain, and constipation. Admitted on 01/13/2025. Found to have peritonitis due to bowel perforation, and underwent emergent laparotomy with subsequent resection of perforated small bowel and enteroenterostomy. Due to abnormal CARMEN drainage, second exploratory laparotomy performed on 02/04 and found to have perforation near to previous perforation area, underwent resection of area with subsequent anastomosis of proximal jejunal loops. Extubated on 02/07. Patient seen and evaluated in bedside today. On room air. Objective vital signs Vital Sign Date Time Temp Pulse Resp B/P (MAP) Pulse Ox O2 Delivery O2 Flow Rate FiO2 02/21/25 16:00 17 97 Room Air* 0 21 02/21/25 16:00 104 02/21/25 15:46 135/66 02/21/25 11:00 98.4 98.4 Total Intake and Output 02/20/25 02/20/25 02/21/25 15:00 23:00 07:00 Intake Total 639 ml 770 ml 497 ml Output Total 1155 ml 1340 ml Balance 639 ml -385 ml -843 ml medications Current Medications Medications Dose Ordered Sig/Isaura Route Start Time Stop Time Status Last Admin Dose Admin Cefazolin Sodium 50 ml @ 100 mls/hr Q8HR IV 01/13/25 14:00 UNV Vasopressin 20 units/Sodium Chloride 100 ml @ 9 mls/hr Q11H7M IV 01/13/25 18:45 UNV Potassium Chloride 100 ml @ 50 mls/hr Q2H IV 01/16/25 12:45 01/16/25 18:44 UNV Vancomycin HCl 100 ml @ 100 mls/hr DAILY@1200 IV 01/20/25 12:00 UNV Sodium Chloride 10 ml QSHIFT@,22 IV 01/26/25 22:00 02/21/25 10:41 10 ML Diagnostic Test (Pha) 1 strip Q6HR 01/31/25 18:00 02/21/25 13:23 1 STRIP Insulin Human Regular FOLLOW SLIDING SCALE Q6HR SC 01/31/25 18:00 02/21/25 13:25 4 UNITS Dextrose 50 ml UD IV 01/31/25 17:00 02/12/25 17:42 50 ML Clonidine HCl 0.1 mg Q7D TD 02/08/25 12:30 02/15/25 14:20 0.1 MG Labetalol HCl 10 mg Q4HP PRN IV 02/08/25 12:30 02/16/25 15:10 10 MG Amino Acids 0 ml @ 0 mls/hr PER PHARMACY IV 02/13/25 10:45 Enoxaparin Sodium 40 mg DAILY SC 02/13/25 15:00 02/21/25 10:42 40 MG Meropenem 50 ml @ 17 mls/hr Q12HR IV 02/18/25 10:00 02/21/25 10:41 17 MLS/HR Vancomycin HCl 0 ml @ 0 mls/hr UD IV 02/17/25 18:45 Hydromorphone HCl 0.5 mg Q4HPRN PRN IV 02/19/25 12:00 02/21/25 15:46 0.5 MG Vancomycin HCl 100 ml @ 100 mls/hr Q18H IV 02/20/25 14:00 02/21/25 08:40 100 MLS/HR Fat Emulsion Intravenous 150 ml/Sodium Acetate 40 meq/Potassium Acetate 40 meq/ Magnesium Sulfate 10 meq/ Multivitamins 10 ml/Chromium/ Copper/Manganese/ Zinc 1 ml/Amino Acids/Dextrose/ Purified Water 1,453.5 ml @ 60 mls/hr [id number] IV 02/20/25 22:00 02/21/25 21:59 02/20/25 21:24 60 MLS/HR Fat Emulsion Intravenous 200 ml/Sodium Acetate 20 meq/Potassium Acetate 40 meq/ Potassium Phosphate 22 meq/ Magnesium Sulfate 8 meq/ Multivitamins 10 ml/Chromium/ Copper/Manganese/ Zinc 1 ml/Insulin Human Regular 7 units/Amino Acids/ Dextrose/Purified Water 1,498.07 ml @ 63 mls/hr [id number] IV 02/21/25 22:00 02/22/25 21:59 Ondansetron HCl 4 mg Q4HPRN PRN IV 02/21/25 09:30 02/21/25 11:02 4 MG Examination General Appearance: Alert, Oriented X3, Cooperative, No acute distress HEENT: Atraumatic, PERRLA, EOMI, Mucous membrane moist/pink Respiratory: Clear to auscultation, Normal air movement Cardiovascular: Regular rate, Normal S1, Normal S2, No murmurs, no chest wall tenderness Abdominal: Mild abdominal tenderness, with wound VAC at the midline, for CARMEN drain at 4 quadrant, draining brownish fluid Extremities: No clubbing, No cyanosis, No edema, Normal pulses, No tenderness/swelling Skin: No rashes, No breakdown, No significant lesion Neuro: Grossly intact Psych/Mental Status: Mental status NL, Mood NL laboratory and microbiology Laboratory Tests 02/21/25 03:13 Test 02/21/25 03:13 Range/Units Serum Glucose 176 H 74-106 mg/dL Microbiology Date/Time Source Procedure Growth Status 02/17/25 19:45 Peritoneal Fluid Gram Stain - Final Resulted 02/17/25 19:45 Body Fluid Culture - Preliminary Escherichia coli Stenotrophomonas maltophilia Resulted 02/15/25 10:12 Urine - [place] Urine Culture - Final Yeast, not Zoe albicans Complete 01/29/25 14:00 Sputum Gram Stain - Final Complete 01/29/25 14:00 Respiratory Culture - Final Presumptive Zoe albicans Complete 01/29/25 10:40 Blood Blood Culture - Final NO GROWTH AFTER 5 DAYS OF INCUBATION. Complete 01/13/25 17:10 Nose MRSA Screen - Final Complete Labs and/or images reviewed: Labs reviewed by me, Image(s) reviewed by me Problem List/Assessment/Plan Problem List/Assessment/Plan This is a 80-year-old lady with past medical history of hypertension, AFib (on Eliquis), diabetes type 2, CKD, came to the hospital due to abdominal pain, and constipation. Admitted on 01/13/2025. Found to have peritonitis due to bowel perforation, and underwent emergent laparotomy with subsequent resection of perforated small bowel and enteroenterostomy. Due to abnormal CARMEN drainage, second exploratory laparotomy performed on 02/04 and found to have perforation near to previous perforation area, underwent resection of area with subsequent anastomosis of proximal jejunal loops. Extubated on 02/07. 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 PULMONARY: Acute hypoxic respiratory failure secondary to bilateral pleural effusion/pneumonia Chest x-ray demonstrated bilateral hazy opacities * Sputum culture from 01/29 shows presumptive Zoe albicans * Status post extubation, on nasal cannula * Plan: Physiotherapy GASTROINTESTINAL: Peritonitis due to Perforation of the small bowel, status post exploratory laparotomy Transaminitis secondary to shock Perisplenic abscess * Peritoneal fluid culture from 01/13 shows E coli and Klebsiella pneumoniae sensitive to meropenem (given for 11 days, stopped on 01/31) * CT scan on 01/31 shows, moderate sized fluid collection in the perisplenic region * IR consulted, put pigtail drain, and has drained 50 cc purulent fluid * Patient has brownish discharge of the drain * Small bowel series, normal study * Patient has leakage from surgical area and drainage * Second laparotomy, performed on 02/04, lysis of adhesions, evacuation of pelvic and abdominal infection, resection of proximal jejunum, ileostomy, and jejunostomy and put for CARMEN drains at 4 quadrants * Small bowel series on 02/11, normal study, per surgery okay to start clear liquid diet * CT abdominopelvic on 02/16 showed, left abdominal pneumoperitoneum which overall appears similar/slightly more pronounced than on the examination from 01/29/2025, appears to be a small amount of extraluminal contrast,and perisplenic subcapsular collection/subdiaphragmatic collection measuring 7.1 x 1.1 cm * Peritoneal fluid culture 02/17 shows E coli, sensitive to meropenem * Plan: IV abx, NPO, TPN, NG tube, Gastrografin enema performed on 02/21 GENITOURINARY: ISRRAEL likely due to shock/VMN, resolved * Monitoring ENDOCRINE: History of hypothyroidism Type 2 diabetes mellitus, hemoglobin A1c 8.2 * Few episodes of hypoglycemia * TSH is raised at 16.29, normal free T4 METABOLIC: Hypokalemia Hyperkalemia Hyponatremia, Nephrology recommended D5W at 75 mL/hour Severe metabolic protein malnutrition * Anion gap metabolic acidosis secondary to bowel ischemia leading to lactic acidosis HEME: Acute on chronic anemia secondary to hemodilution/post surgical 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 * 5 unit of PRBC, 2 pt of platelet, has been given INFECTIOUS DISEASE: Sepsis with septic shock secondary to perforation of the small bowel * Blood culture from 01/29 preliminary result shows Gram-positive rods (1/4 sets of blood culture) * Discontinued levofloxacin Flagyl on 02/03 * Discontine vancomycin and meropenem started on 02/03 given up to 02/13 * Discontinue meropenem (02/17 given up to 02/21), and vancomycin (02/17 given up to 02/11) * Peritoneal fluid culture 02/17 shows E coli and Stenotrophmonas maltophilia * Plan: Bactrim (02/21), Rocephin (02/21), and micafungin (02/21) MUSCULOSKELETAL: Rib fracture, due to fall DIET: Clear liquid diet DVT prophylax: Lovenox GI prophylaxis: Pantoprazole Bowel regimen: Code status: Full code LINES/DRAINS/ACCESS: ETT: Intubated on 01/14/25, extubated on 02/07 IV access: Rt upper thigh PICC placed on 01/26/2025 Drips: off from pressor and sedatives Leach catheter: Placed on 01/14, exchange on 02/14 CARMEN drainage: Four CARMEN drain in 4 quadrants of abdomen DISPOSITION: Downgraded to SHERRY Patient's status discussed with patient and patient's son at the bedside. Critical care time spent more than 51 minutes, including patient care, chart review, and updating the family. Excluding any procedures. Case discussed with Dr. Self Plan discussed with: Spouse, Son, Other My Orders My Orders Orders - TRINI,GIGI RESDIENT Procedure Category Date Status Time Ondansetron Hcl PHA 02/21/25 In Process (Zofran) 09:30 Dietary Evaluation Review Comments: Nutrition Recommendation: 1) TPN to meet at least 75% estimated needs within 7 days 2) Monitor NPO status, lab values, wt trend, I/O Expected Outcomes/Goals: To meet >75% estimated needs Lab values to improve Fu 2-3 days Is there a minimum of two crit: Yes CC Plasma Assessment Blood Product Administration S: [id number] Date of Service: Feb 21, 2025 Billing Provider: ZBIGNIEW SELF MD Common Visit Codes: 07859-[id number] CARE 30-74 MIN GIGI FELIZ RESDIENT Feb 21, 2025 16:56 ZBINGIEW SELF MD Feb 22, 2025 14:56
[2025-02-21] MEDS ORDERED: BACTRIM 5MG/KG Q8HR PER RX 0 ML IV SCH (17:00)
[2025-02-21] MEDS: MICAFUNGIN SODIUM 100 MG in SODIUM CHL 0.9% 100 ML IV ONE (18:57)
[2025-02-21] MEDS: SULFAMETH-TRIMETH 80/16MG-ML 15 ML in D5W 5% 250 ML IV SCH (19:40)
[2025-02-21] MEDS: TPN PER PHARMACY IV NR (21:01)
[2025-02-22] VITALS (31 sets, daily range): BP systolic 85–127; BP diastolic 24–59; PULSE 91–112; RESP 13–20; TEMP 98.3–98.9; O2SAT 91–97
[2025-02-22 03:47] LABS: Hematocrit 24.7 % (36.0-46.0); Hemoglobin 8.3 g/dL (12.2-16.2); Mean Corpuscular Hemoglobin 31.8 pg (28.0-32.0); Mean Corpuscular Volume 94.3 fL (80.0-100.0); Nucleated Red Blood Cells % 0.0 %
[2025-02-22 03:52] LABS: Alanine Aminotransferase 23 U/L (7-40); Anion Gap 11 (5-15); BUN/Creatinine Ratio 41.6 (10.0-20.0); Calcium 8.8 mg/dL (8.7-10.4); Carbon Dioxide 24 mmol/L (20-31); Chloride 106 mmol/L (98-107); Magnesium 2.2 mg/dL (1.6-2.6); Potassium 3.7 mmol/L (3.5-5.1); Sodium 141 mmol/L (136-145); Total Protein 6.3 g/dL (5.7-8.2)
[2025-02-22 03:54] LABS: Bilirubin, Total 0.7 mg/dL (0.2-1.0)
[2025-02-22 04:02] LABS: Albumin 2.4 g/dL (3.2-4.8); Alkaline Phosphatase 225 U/L (46-116); Blood Urea Nitrogen 37 mg/dL (9-23); Glucose 146 mg/dL (74-106)
[2025-02-22 04:36] LABS: Triglycerides 131 mg/dL (< 150)
--- NOTE | 2025-02-22 04:48 | DVH ---
CHEST RADIOGRAPH Indication: Pneumonia Technique: Single frontal view of the chest was obtained Comparison: XY CHEST PORTABLE on DOS: 02/17/25 FINDINGS: Lines and Tubes: The enteric tube terminates in the stomach. The endotracheal tube terminates 2.9 cm above the vijay. There is a left pigtail catheter projecting over the left lung base. Lungs: Retrocardiac airspace disease noted. Pleura: No effusion. No pneumothorax. Cardiomediastinal contours: Cardiomegaly. Bones: No acute osseous abnormality. IMPRESSION: 1. Support tubes in appropriate position. 2. Retrocardiac airspace disease.
[2025-02-22] MEDS: MICAFUNGIN SODIUM 100 MG in SODIUM CHL 0.9% 100 ML IV SCH (09:50)
--- NOTE | 2025-02-22 11:43 | DVHPN2 ---
Progress Note Date Seen: Feb 22, 2025 Has the PT tested + for MRSA If YES, has PT been informed?: No Medical Necessity Reason Pt with a Central, PICC or Fol: Yes The following are medically ne: PICC Line, Leach Catheter Reason for leach catheter: Strict I&O Objective vital signs Vital Sign Date Time Temp Pulse Resp B/P (MAP) Pulse Ox O2 Delivery O2 Flow Rate FiO2 02/22/25 11:16 103/39 02/22/25 11:14 97 16 02/22/25 08:00 96 Room Air* 0 21 02/22/25 04:00 98.4 98.4 Total Intake and Output 02/21/25 02/21/25 02/22/25 15:00 23:00 07:00 Intake Total 591 ml 945 ml 805 ml Output Total 995 ml 875 ml Balance 591 ml -50 ml -70 ml medications Current Medications Medications Dose Ordered Sig/Isaura Route Start Time Stop Time Status Last Admin Dose Admin Cefazolin Sodium 50 ml @ 100 mls/hr Q8HR IV 01/13/25 14:00 UNV Vasopressin 20 units/Sodium Chloride 100 ml @ 9 mls/hr Q11H7M IV 01/13/25 18:45 UNV Potassium Chloride 100 ml @ 50 mls/hr Q2H IV 01/16/25 12:45 01/16/25 18:44 UNV Vancomycin HCl 100 ml @ 100 mls/hr DAILY@1200 IV 01/20/25 12:00 UNV Sodium Chloride 10 ml QSHIFT@10,22 IV 01/26/25 22:00 02/22/25 09:51 10 ML Diagnostic Test (Pha) 1 strip Q6HR 01/31/25 18:00 02/22/25 05:26 1 STRIP Insulin Human Regular FOLLOW SLIDING SCALE Q6HR SC 01/31/25 18:00 02/22/25 05:28 8 UNITS Dextrose 50 ml UD IV 01/31/25 17:00 02/12/25 17:42 50 ML Clonidine HCl 0.1 mg Q7D TD 02/08/25 12:30 02/22/25 11:16 0.1 MG Labetalol HCl 10 mg Q4HP PRN IV 02/08/25 12:30 02/16/25 15:10 10 MG Amino Acids 0 ml @ 0 mls/hr PER PHARMACY IV 02/13/25 10:45 Enoxaparin Sodium 40 mg DAILY SC 02/13/25 15:00 02/22/25 09:52 40 MG Hydromorphone HCl 0.5 mg Q4HPRN PRN IV 02/19/25 12:00 02/22/25 11:14 0.5 MG Fat Emulsion Intravenous 200 ml/Sodium Acetate 20 meq/Potassium Acetate 40 meq/ Potassium Phosphate 22 meq/ Magnesium Sulfate 8 meq/ Multivitamins 10 ml/Chromium/ Copper/Manganese/ Zinc 1 ml/Insulin Human Regular 7 units/Amino Acids/ Dextrose/Purified Water 1,498.07 ml @ 63 mls/hr [id number] IV 02/21/25 22:00 02/22/25 21:59 02/21/25 21:01 63 MLS/HR Ondansetron HCl 4 mg Q4HPRN PRN IV 02/21/25 09:30 02/21/25 11:02 4 MG Micafungin Sodium 100 mg/Sodium Chloride 100 ml @ 100 mls/hr DAILY IV 02/22/25 10:00 02/22/25 09:50 100 MLS/HR Ceftriaxone Sodium/Dextrose 50 ml @ 50 mls/hr DAILY@0900 IV 02/22/25 09:00 02/22/25 08:19 50 MLS/HR Trimethoprim/ Sulfamethoxazole 0 ml @ 0 mls/hr PER PHARMACY IV 02/21/25 17:00 Trimethoprim/ Sulfamethoxazole 15 ml/Dextrose 265 ml @ 176.667 mls/hr Q8H IV 02/21/25 20:00 02/22/25 03:42 176.667 MLS/HR Fat Emulsion Intravenous 150 ml/Sodium Phosphate 10 meq/ Potassium Acetate 30 meq/Potassium Phosphate 22 meq/ Magnesium Sulfate 6 meq/ Multivitamins 10 ml/Chromium/ Copper/Manganese/ Zinc 1 ml/Insulin Human Regular 5 units/Amino Acids/ Dextrose/Purified Water 1,285.05 ml @ 53 mls/hr [id number] IV 02/22/25 22:00 02/23/25 21:59 laboratory and microbiology Laboratory Tests 02/22/25 02:53 Test 02/22/25 02:53 Range/Units Serum Glucose 146 H 74-106 mg/dL Problem List/Assessment/Plan Problem List/Assessment/Plan 01/14/25 afebrile, low dose BP support, received transfusion, I believe her decreased hematocrit is due to hemodilution. abdomen non distended, soft, wound clean and well approximated, drainage serous . remains intubated and sedated 01/16/25 ALKALOSIS, ABDOMEN NON DISTENDED, SOFT, DRAINAGE SEROUS, WOUND CLEAN AND WELL APPROXIMATED 01/17/25 improved, thrombocytopenia possibly made worse by Fluconazole,will DC, abdomen non distended, wound well approximated without infection, TATY drainage serous, CVP 6, good urine output. 01/18/25 abg reviewed, ,abdomen soft, non distended, TATY drainage clear serous, no bowel activity, febrile, urine output ok, continues with thrombocytopenia,pt and inr slightly elevated. prognosis grave. 01/20/25remains sedated on ventilator, abdomen soft, non distended, faint bowel sounds auscultated by nurse, wound clean and well approximated, TATY drainage clear serous. continues with thrombocytopenia, still behind on intravascular volume( BUN and Creatinine elevated), i would give more IV fluids and DC vancomycin. 01/25/25 afebrile, normotensive, wound clean and well approximated, TATY drainage serous, abdomen non distended, soft, gastrografin small bowel series shows non obstructed GI tract and no evidence of extravasation. It is OK to initiate enteric feedings. 01/29/25 16 DAYS POST OPERATIVELY TRHE TATY DRAINAGE WHICH HAD CONSISTENTLY BEEN SEROUS OR SERO SANGUINEOUS HAS BECOME "DIRTY" BROWNISH DISCOLORATION, HER WOUND IS CLEAN AND WELL APPROXIMATED AND HER ABDOMEN IS SOFT AND NON DISTENDED, CT SCAN SHOWS SO0ME FLUID AND ACCUMULATION OF FLUID AROUND THE SPLEEN, WILL REQUEST CT GUIDED ASPIRATION OF SAME, WILL ORDER IRRIGATION OF DRAINS. SHE SI AFEBRILE AND MAINTAINS NORMAL BLOOD PRESSURE, HER WBC IS NORMAL. 01/30/25 improved, awake, being weaned off vent. abdomen non distended, non tender, taty drainage clearing with irrigation 02/02/25clinically unchanged, gastrografin small bowel series reported and normal, no extravasation reported, will order a follow ujp KUB for tomorrow AM 02/03/25 PATIENT HAD A GASTROGRAFIN SMALL BOWEL SERIES AND A FOLLOW UP KUB X RAYS NEITHER ONE OF WHICH SHOW EXTRAVASATION OF CONTRAST OR EVIDENCE OF FREE CONTRAST IN THE PERITONEAL CAVITY. THERE IS HOWEVER VISCOUS, BROWNISH FLUID DRAINING VIA BOTH TATY DRAINS AND THROUGH INFRAUMBILICAL PORTION OF MIDLINE WOUND, I REMOVED THE RICHIE FROM THE 3 CM SECTION OF THE INFRAUMBILICAL WOUND AND EVACUATED ABOUT 30 CC OF THIS FLUID AND INSTRUCTED THE NURSE TO PLACE A STOMA APPLIANCE ON THIS OPENING. 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 TODAY HER WBC IS ELEVATED, ABDOMEN CONTINUES TO BE NON DISTENDED, SOFT, BUT SHE DOES HAVE SLIGHT TENDERNESS IN THE PERIUMBILICAL AREA. I WILL TREAT THIS EXPECTANTLY FORM THE TIME BEING IN THE HOPE THAT THIS IS A "CONTROLLED" FISTULA AND HOPEFUL WILL HEAL SPONTANEOUSLY WITH NPO AND NUTRITIONAL SUPPORT. WILL WATCH CLOSELY, AFTER A FEW DAYS WILL GET A FISTULOGRAM TO PIN POINT THE ENTERIC ORIGIN OF THE FISTULIZATION. CONTINUE NGT SUCTION AND DRAIN IRRIGATION ORDERED02/05/25 02/05/25 remains sedated and intubated?ventilated, abdomen non distended soft, wound vac in place. TATY drainage serosanguineous 02/08/25 EXTUBATED, GOOD INSPIRATORY EFFORT, BP NML WITHOUT PRESSOR SUPPORT, ABDOMEN SOFT, NON DISTENDED, APPROPRIATELY TENDER, LABS REVIEWED. NO CHANGES TODAY OTHER THAN ALLOW ICE CHIPS PO. WILL ORDER GASTROGRAFIN SMALL BOWEL FOLLOWTHROUGH FOR Friday02/09/25 awake cooperative, wound vac in place, abdomen soft, non distended, appropriately tender, TATY drainage brownish discoloration, will irrigate, her WBC is normal and she is afebrile and normotensive. gastrografin tomorrow 02/10/25 AWAKE,COMFORTABLE, DENIES PAIN, ABDOMEN NON DISTENDED APPROPRIATELY TENDER, WOUND CLEAN AND WELL APPROXIMATED, DRAINS BEING IRRIGATED, LABS OK, GOOD URINE OUTPUT. "SURGICALLY" STABLE 02/11/25 feels well, passing flatus. is hungry, abdomen soft non distended, drainage clearing with irrigation, will wait for Gastrografin small bowel series to be completed, if normal will start po clear liquids 02/12/25 no nausea, change in TATY drainage colort, appears to contaIN, BILE, WILL DC po CLEAR LIQUIDS, CONTINUE ICE CGHIPS, SEND DRAin fluid for amylase and bilirubin, 02/13/25 states she feels well, abdomen non tender, non distended, wound clean and well approximated. drainage slightly clearer, keep npo for now, needs to resume TPN 02/14/25 PATIENT C/O BEING COLD BUT HAS NO PAIN, DRAINAGE SEEMS TO BE CLEARING, SHE HAD A BOWEL MOVEMENTS, ABDOMEN IS SOFT AND NON TENDER, NON DISTENDED, WOUND IS CLEAN AND WELL APPROXIMATED, WILL CONTINUE NPO STATUS AMYLASE ON TATY DRAINAGE FLUID IS GOING TO TAKE SEVERAL DAYS TO BECOME AVAILABLE. CONTINUE TPN 02/16/25 DENIES PAIN,STATES SHE FEELS BETTER, WOUND VAC IN PLACE, ABDOMEN NON TENDER,NON DISTENDED, TATY DRAINAGE SMALL TO MODERATE , WILL CONTINUE IRRIGATING DRAINS, WILL REQUEST GI CONSULT TO CONSIDER ENDOSCOPY. WBC NL,H/H STABLE , ALBUMIN STILL VERY LOW. , 02/17/25 CT SCAN REVIEWED, I SUSPECT THERE IS A SMALL LEAK FROM THE APPEARANCE OF IMAGING ALTHOUGH RADIOLOGIST RECOMMENDED REPEAT CT SCAN (ORDERED). THE DRAINAGE IS SMALL AMOUNT BUT NOW IT IS WITH AN ODOR, I WILL RE INSERT NGT TO ATTEMPT DECREASING THE GASTRIC CONTENTS. ABDOMEN IS SOFT, APPROPRIATELY TENDER, WOUND VAC IN PLACE 02/18/25 AFEBRILE, NORMOTENSIVE4, WBC NL, ALL IMAGING NEGATIVE, ANGIOGRAM SHOWS NO EVIDENCE OF HYPOPERFUSION, CONTRAST AND NON CONTRAST CT SCAN FAILED TO SHOW ANY EVIDENCE OF EXTRAVASATION, THE DRAINAGE CONTINUES TO BE BROWNISH DISCOLORED AND FOULS SMELLING, EXPLAINED TO PT'S SON THAT I HAVE NO EVIDENCE OF ANY GI LEAKAGE, WILL GET A GASTROGRAFIN ENEMA ON FRIDAY, I AM TRYING TO REFRAIN FROM OPERATING ON THE FRAIL ELDERLY PATIENT FOR THE THIRD TIME, SHE WILL NOT TOLERATE ANOTHYER OPERATION WELL. HER ALBUMIN REMAINS VERY LOW.WOUND VAC OK 02/19/25 feels ok,c/o being cold, abdomen soft. non distended, minimally tender, drainage seems to be little less, labs ok, continue as is 02/22/25 she feels well, abdomen is non tender, soft and non distended, drainage slightly less in volume, still discolored,gastrografin enema reviewed by me ( no radiologist/s interpretation available), she has not evacuated the gastrografin according to nurse. Plan discussed with: Patient Dietary Evaluation Review Comments: Nutrition Recommendation: 1) TPN to meet at least 75% estimated needs within 7 days 2) Monitor NPO status, lab values, wt trend, I/O Expected Outcomes/Goals: To meet >75% estimated needs Lab values to improve Fu 2-3 days Is there a minimum of two crit: Yes MELVA RAMESH MD Feb 22, 2025 11:43
--- NOTE | 2025-02-22 14:15 | DVH ---
XY GASTROGRAFIN ENEMA SINGLE CON HISTORY: R/O COLONIC EXTRAVASATION COMPARISON: CT CT ABD PELVIS W CON-ORAL IV on DOS: 02/16/25, XY KUB ABDOMEN SINGLE VIEW on DOS: 02/15/25, XY SMALL BOWEL SERIES-W GASTROGRA on DOS: 02/11/25, XY KUB ABDOMEN SINGLE VIEW on DOS: 02/03/25, XY SMALL BOWEL SERIES-W GASTROGRA on DOS: 02/02/25 Technique: Contrast was introduced in a retrograde fashion under intermittent fluoroscopic observation with multiple spot films being obtained. Multiple overhead films including a post evacuation film were then obtained. Number of images :12 Fluoroscopy time:0.8 min FINDINGS: A frontal projection of the abdomen was obtained as a gauge and instrument inspector film. There are several surgical drains in place. Midline laparotomy skin lilly are noted. Under fluoroscopic visualization contrast flowed freely from the rectum to the cecum. 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 There is also contrast leak from the same area. IMPRESSION: 1. 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 D [facility]
--- NOTE | 2025-02-22 17:52 | DVHPNRES ---
Progress Note Date Seen: Feb 22, 2025 Resident Creating Document: GIGI FELIZ AMBROSE Has the PT tested + for MRSA If YES, has PT been informed?: No Medical Necessity Reason Pt with a Central, PICC or Fol: Yes The following are medically ne: PICC Line, Leach Catheter Reason for leach catheter: Strict I&O Subjective Review of Systems This is a 80-year-old lady with past medical history of hypertension, AFib (on Eliquis), diabetes type 2, CKD, came to the hospital due to abdominal pain, and constipation. Admitted on 01/13/2025. Found to have peritonitis due to bowel perforation, and underwent emergent laparotomy with subsequent resection of perforated small bowel and enteroenterostomy. Due to abnormal CARMEN drainage, second exploratory laparotomy performed on 02/04 and found to have perforation near to previous perforation area, underwent resection of area with subsequent anastomosis of proximal jejunal loops. Extubated on 02/07. Patient seen and evaluated in bedside today. On room air. Objective vital signs Vital Sign Date Time Temp Pulse Resp B/P (MAP) Pulse Ox O2 Delivery O2 Flow Rate FiO2 02/22/25 17:00 102 13 113/45 (67) 94 02/22/25 16:00 98.6 98.6 02/22/25 16:00 Room Air* 0 21 Total Intake and Output 02/21/25 02/21/25 02/22/25 15:00 23:00 07:00 Intake Total 591 ml 945 ml 868 ml Output Total 995 ml 875 ml Balance 591 ml -50 ml -7 ml medications Current Medications Medications Dose Ordered Sig/Isaura Route Start Time Stop Time Status Last Admin Dose Admin Cefazolin Sodium 50 ml @ 100 mls/hr Q8HR IV 01/13/25 14:00 UNV Vasopressin 20 units/Sodium Chloride 100 ml @ 9 mls/hr Q11H7M IV 01/13/25 18:45 UNV Potassium Chloride 100 ml @ 50 mls/hr Q2H IV 01/16/25 12:45 01/16/25 18:44 UNV Vancomycin HCl 100 ml @ 100 mls/hr DAILY@1200 IV 01/20/25 12:00 UNV Sodium Chloride 10 ml QSHIFT@10,22 IV 01/26/25 22:00 02/22/25 09:51 10 ML Diagnostic Test (Pha) 1 strip Q6HR 01/31/25 18:00 02/22/25 12:23 1 STRIP Insulin Human Regular FOLLOW SLIDING SCALE Q6HR SC 01/31/25 18:00 02/22/25 12:29 8 UNITS Dextrose 50 ml UD IV 01/31/25 17:00 02/12/25 17:42 50 ML Labetalol HCl 10 mg Q4HP PRN IV 02/08/25 12:30 02/16/25 15:10 10 MG Amino Acids 0 ml @ 0 mls/hr PER PHARMACY IV 02/13/25 10:45 Enoxaparin Sodium 40 mg DAILY SC 02/13/25 15:00 02/22/25 09:52 40 MG Hydromorphone HCl 0.5 mg Q4HPRN PRN IV 02/19/25 12:00 02/22/25 16:55 0.5 MG Fat Emulsion Intravenous 200 ml/Sodium Acetate 20 meq/Potassium Acetate 40 meq/ Potassium Phosphate 22 meq/ Magnesium Sulfate 8 meq/ Multivitamins 10 ml/Chromium/ Copper/Manganese/ Zinc 1 ml/Insulin Human Regular 7 units/Amino Acids/ Dextrose/Purified Water 1,498.07 ml @ 63 mls/hr [id number] IV 02/21/25 22:00 02/22/25 21:59 02/21/25 21:01 63 MLS/HR Ondansetron HCl 4 mg Q4HPRN PRN IV 02/21/25 09:30 02/21/25 11:02 4 MG Micafungin Sodium 100 mg/Sodium Chloride 100 ml @ 100 mls/hr DAILY IV 02/22/25 10:00 02/22/25 09:50 100 MLS/HR Ceftriaxone Sodium/Dextrose 50 ml @ 50 mls/hr DAILY@0900 IV 02/22/25 09:00 02/22/25 08:19 50 MLS/HR Trimethoprim/ Sulfamethoxazole 0 ml @ 0 mls/hr PER PHARMACY IV 02/21/25 17:00 Trimethoprim/ Sulfamethoxazole 15 ml/Dextrose 265 ml @ 176.667 mls/hr Q8H IV 02/21/25 20:00 02/22/25 12:21 176.667 MLS/HR Fat Emulsion Intravenous 150 ml/Sodium Phosphate 10 meq/ Potassium Acetate 30 meq/Potassium Phosphate 22 meq/ Magnesium Sulfate 6 meq/ Multivitamins 10 ml/Chromium/ Copper/Manganese/ Zinc 1 ml/Insulin Human Regular 5 units/Amino Acids/ Dextrose/Purified Water 1,285.05 ml @ 53 mls/hr [id number] IV 02/22/25 22:00 02/23/25 21:59 Examination General Appearance: Alert, Oriented X3, Cooperative, No acute distress HEENT: Atraumatic, PERRLA, EOMI, Mucous membrane moist/pink Respiratory: Clear to auscultation, Normal air movement Cardiovascular: Regular rate, Normal S1, Normal S2, No murmurs, no chest wall tenderness Abdominal: Mild abdominal tenderness, with wound VAC at the midline, for CARMEN drain at 4 quadrant, draining brownish fluid Extremities: No clubbing, No cyanosis, No edema, Normal pulses, No tenderness/swelling Skin: No rashes, No breakdown, No significant lesion Neuro: Grossly intact Psych/Mental Status: Mental status NL, Mood NL laboratory and microbiology Laboratory Tests 02/22/25 02:53 Test 02/22/25 02:53 Range/Units Serum Glucose 146 H 74-106 mg/dL Microbiology Date/Time Source Procedure Growth Status 02/17/25 19:45 Peritoneal Fluid Gram Stain - Final Resulted 02/17/25 19:45 Body Fluid Culture - Preliminary Escherichia coli Stenotrophomonas maltophilia Resulted 02/15/25 10:12 Urine - [place] Urine Culture - Final Yeast, not Zoe albicans Complete 01/29/25 14:00 Sputum Gram Stain - Final Complete 01/29/25 14:00 Respiratory Culture - Final Presumptive Zoe albicans Complete 01/29/25 10:40 Blood Blood Culture - Final NO GROWTH AFTER 5 DAYS OF INCUBATION. Complete 01/13/25 17:10 Nose MRSA Screen - Final Complete Labs and/or images reviewed: Labs reviewed by me, Image(s) reviewed by me Problem List/Assessment/Plan Problem List/Assessment/Plan This is a 80-year-old lady with past medical history of hypertension, AFib (on Eliquis), diabetes type 2, CKD, came to the hospital due to abdominal pain, and constipation. Admitted on 01/13/2025. Found to have peritonitis due to bowel perforation, and underwent emergent laparotomy with subsequent resection of perforated small bowel and enteroenterostomy. Due to abnormal CARMEN drainage, second exploratory laparotomy performed on 02/04 and found to have perforation near to previous perforation area, underwent resection of area with subsequent anastomosis of proximal jejunal loops. Extubated on 02/07. 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 PULMONARY: Acute hypoxic respiratory failure secondary to bilateral pleural effusion/pneumonia Chest x-ray demonstrated bilateral hazy opacities * Sputum culture from 01/29 shows presumptive Zoe albicans * Status post extubation, on nasal cannula * Plan: Physiotherapy GASTROINTESTINAL: Peritonitis due to Perforation of the small bowel, status post exploratory laparotomy Transaminitis secondary to shock Perisplenic abscess * Peritoneal fluid culture from 01/13 shows E coli and Klebsiella pneumoniae sensitive to meropenem (given for 11 days, stopped on 01/31) * CT scan on 01/31 shows, moderate sized fluid collection in the perisplenic region * IR consulted, put pigtail drain, and has drained 50 cc purulent fluid * Patient has brownish discharge of the drain * Small bowel series, normal study * Patient has leakage from surgical area and drainage * Second laparotomy, performed on 02/04, lysis of adhesions, evacuation of pelvic and abdominal infection, resection of proximal jejunum, ileostomy, and jejunostomy and put for CARMEN drains at 4 quadrants * Small bowel series on 02/11, normal study, per surgery okay to start clear liquid diet * CT abdominopelvic on 02/16 showed, left abdominal pneumoperitoneum which overall appears similar/slightly more pronounced than on the examination from 01/29/2025, appears to be a small amount of extraluminal contrast,and perisplenic subcapsular collection/subdiaphragmatic collection measuring 7.1 x 1.1 cm * Peritoneal fluid culture 02/17 shows E coli, sensitive to meropenem * 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, 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 * Plan: IV abx, NPO, TPN, NG tube, laparotomy planned on 02/23 GENITOURINARY: ISRRAEL likely due to shock/VMN, resolved * Monitoring ENDOCRINE: History of hypothyroidism Type 2 diabetes mellitus, hemoglobin A1c 8.2 * Few episodes of hypoglycemia * TSH is raised at 16.29, normal free T4 METABOLIC: Hypokalemia Hyperkalemia Hyponatremia, Nephrology recommended D5W at 75 mL/hour Severe metabolic protein malnutrition * Anion gap metabolic acidosis secondary to bowel ischemia leading to lactic acidosis HEME: Acute on chronic anemia secondary to hemodilution/post surgical 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 * 5 unit of PRBC, 2 pt of platelet, has been given INFECTIOUS DISEASE: Sepsis with septic shock secondary to perforation of the small bowel * Blood culture from 01/29 preliminary result shows Gram-positive rods (1/4 sets of blood culture) * Discontinued levofloxacin Flagyl on 02/03 * Discontine vancomycin and meropenem started on 02/03 given up to 02/13 * Discontinue meropenem (02/17 given up to 02/21), and vancomycin (02/17 given up to 02/11) * Peritoneal fluid culture 02/17 shows E coli and Stenotrophmonas maltophilia * Plan: Bactrim (02/21), Rocephin (02/21), and micafungin (02/21) MUSCULOSKELETAL: Rib fracture, due to fall DIET: Clear liquid diet DVT prophylax: Lovenox GI prophylaxis: Pantoprazole Bowel regimen: Code status: Full code LINES/DRAINS/ACCESS: ETT: Intubated on 01/14/25, extubated on 02/07 IV access: Rt upper thigh PICC placed on 01/26/2025 Drips: off from pressor and sedatives Leach catheter: Placed on 01/14, exchange on 02/14 CARMEN drainage: Four CARMEN drain in 4 quadrants of abdomen DISPOSITION: Downgraded to SHERRY Patient's status discussed with patient and patient's son at the bedside. Critical care time spent more than 59 minutes, including patient care, chart review, and updating the family. Excluding any procedures. Case discussed with Dr. Self Plan discussed with: Other (RN) Dietary Evaluation Review Comments: Nutrition Recommendation: 1) TPN to meet at least 75% estimated needs within 7 days 2) Monitor NPO status, lab values, wt trend, I/O Expected Outcomes/Goals: To meet >75% estimated needs Lab values to improve Fu 2-3 days Is there a minimum of two crit: Yes CC Plasma Assessment Blood Product Administration S: [id number] Date of Service: Feb 22, 2025 Billing Provider: ZBIGNIEW SELF MD Common Visit Codes: 66844-[id number] CARE 30-74 MIN GIGI FELIZ Feb 22, 2025 17:52 ZBIGNIEW SELF MD Feb 23, 2025 13:19
--- NOTE | 2025-02-22 20:12 | DVHPN2 ---
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 vital signs Vital Sign Date Time Temp Pulse Resp B/P (MAP) Pulse Ox O2 Delivery O2 Flow Rate FiO2 02/22/25 18:00 16 95 Room Air* 0 21 02/22/25 18:00 103 02/22/25 18:00 120/55 (76) 02/22/25 16:00 98.6 98.6 Total Intake and Output 02/21/25 02/21/25 02/22/25 15:00 23:00 07:00 Intake Total 591 ml 945 ml 868 ml Output Total 995 ml 875 ml Balance 591 ml -50 ml -7 ml medications Current Medications Medications Dose Ordered Sig/Isaura Route Start Time Stop Time Status Last Admin Dose Admin Cefazolin Sodium 50 ml @ 100 mls/hr Q8HR IV 01/13/25 14:00 UNV Vasopressin 20 units/Sodium Chloride 100 ml @ 9 mls/hr Q11H7M IV 01/13/25 18:45 UNV Potassium Chloride 100 ml @ 50 mls/hr Q2H IV 01/16/25 12:45 01/16/25 18:44 UNV Vancomycin HCl 100 ml @ 100 mls/hr DAILY@1200 IV 01/20/25 12:00 UNV Sodium Chloride 10 ml QSHIFT@10,22 IV 01/26/25 22:00 02/22/25 09:51 10 ML Diagnostic Test (Pha) 1 strip Q6HR 01/31/25 18:00 02/22/25 18:33 1 STRIP Insulin Human Regular FOLLOW SLIDING SCALE Q6HR SC 01/31/25 18:00 02/22/25 18:34 4 UNITS Dextrose 50 ml UD IV 01/31/25 17:00 02/12/25 17:42 50 ML Labetalol HCl 10 mg Q4HP PRN IV 02/08/25 12:30 02/16/25 15:10 10 MG Amino Acids 0 ml @ 0 mls/hr PER PHARMACY IV 02/13/25 10:45 Hydromorphone HCl 0.5 mg Q4HPRN PRN IV 02/19/25 12:00 02/22/25 16:55 0.5 MG Fat Emulsion Intravenous 200 ml/Sodium Acetate 20 meq/Potassium Acetate 40 meq/ Potassium Phosphate 22 meq/ Magnesium Sulfate 8 meq/ Multivitamins 10 ml/Chromium/ Copper/Manganese/ Zinc 1 ml/Insulin Human Regular 7 units/Amino Acids/ Dextrose/Purified Water 1,498.07 ml @ 63 mls/hr [id number] IV 02/21/25 22:00 02/22/25 21:59 02/21/25 21:01 63 MLS/HR Ondansetron HCl 4 mg Q4HPRN PRN IV 02/21/25 09:30 02/21/25 11:02 4 MG Micafungin Sodium 100 mg/Sodium Chloride 100 ml @ 100 mls/hr DAILY IV 02/22/25 10:00 02/22/25 09:50 100 MLS/HR Ceftriaxone Sodium/Dextrose 50 ml @ 50 mls/hr DAILY@0900 IV 02/22/25 09:00 02/22/25 08:19 50 MLS/HR Trimethoprim/ Sulfamethoxazole 0 ml @ 0 mls/hr PER PHARMACY IV 02/21/25 17:00 Trimethoprim/ Sulfamethoxazole 15 ml/Dextrose 265 ml @ 176.667 mls/hr Q8H IV 02/21/25 20:00 02/22/25 12:21 176.667 MLS/HR Fat Emulsion Intravenous 150 ml/Sodium Phosphate 10 meq/ Potassium Acetate 30 meq/Potassium Phosphate 22 meq/ Magnesium Sulfate 6 meq/ Multivitamins 10 ml/Chromium/ Copper/Manganese/ Zinc 1 ml/Insulin Human Regular 5 units/Amino Acids/ Dextrose/Purified Water 1,285.05 ml @ 53 mls/hr [id number] IV 02/22/25 22:00 02/23/25 21:59 Multi-Ingredient Ointment 1 applic DAILY TOP 02/23/25 10:00 objective General Appearance: Alert, Oriented X3, Cooperative, No acute distress HEENT: Atraumatic, PERRLA, EOMI, Mucous membrane moist/pink Respiratory: Clear to auscultation, Normal air movement Cardiovascular: Regular rate, Normal S1, Normal S2, No murmurs, no chest wall tenderness Abdominal: Mild abdominal tenderness, with wound VAC at the midline, for CARMEN drain at 4 quadrant, draining brownish fluid Extremities: No clubbing, No cyanosis, No edema, Normal pulses, No tenderness/swelling Skin: No rashes, No breakdown, No significant lesion Neuro: Grossly intact Psych/Mental Status: Mental status NL, Mood NL laboratory and microbiology Laboratory Tests 02/22/25 02:53 Test 02/22/25 02:53 Range/Units Serum Glucose 146 H 74-106 mg/dL Problems(with codes): (1) Ischemic bowel disease (2) Acute renal injury (3) Intestinal perforation Prognosis Plan Continue NPO, IV antibiotics IV TPN NG tube to low intermittent suction Surgical follow up or repeat exploratory laparotomy Prognosis remains guarded Dietary Evaluation Review Comments: Nutrition Recommendation: 1) TPN to meet at least 75% estimated needs within 7 days 2) Monitor NPO status, lab values, wt trend, I/O Expected Outcomes/Goals: To meet >75% estimated needs Lab values to improve Fu 2-3 days Is there a minimum of two crit: Yes Plan discussed with: Other (ICU Nurse) CC Plasma Assessment Blood Product Administration S: [id number] FRANCISCA RODRÍGUEZ MD Feb 22, 2025 20:12
[2025-02-22] MEDS: TPN PER PHARMACY IV NR (21:17)
[2025-02-23] VITALS (30 sets, daily range): BP systolic 78–123; BP diastolic 38–65; PULSE 92–106; RESP 11–20; TEMP 98.3–99.2; O2SAT 90–96
[2025-02-23 03:50] LABS: Hematocrit 24.3 % (36.0-46.0); Hemoglobin 8.1 g/dL (12.2-16.2); Mean Corpuscular Hemoglobin 30.5 pg (28.0-32.0); Mean Corpuscular Volume 91.6 fL (80.0-100.0); Nucleated Red Blood Cells % 0.1 %
[2025-02-23 04:00] LABS: INR 1.14 (0.9-1.15); Partial Thromboplastin Time 29.2 SEC (24.5-34.5); Prothrombin Time 11.9 sec (9.3-11.8)
[2025-02-23 04:09] LABS: Alanine Aminotransferase 34 U/L (7-40); Anion Gap 9 (5-15); BUN/Creatinine Ratio 36.5 (10.0-20.0); Bilirubin, Total 0.6 mg/dL (0.2-1.0); Calcium 8.8 mg/dL (8.7-10.4); Carbon Dioxide 27 mmol/L (20-31); Chloride 101 mmol/L (98-107); Magnesium 2.2 mg/dL (1.6-2.6); Potassium 4.0 mmol/L (3.5-5.1); Sodium 137 mmol/L (136-145); Total Protein 6.1 g/dL (5.7-8.2)
[2025-02-23 04:35] LABS: Albumin 2.4 g/dL (3.2-4.8); Alkaline Phosphatase 210 U/L (46-116); Blood Urea Nitrogen 38 mg/dL (9-23); Glucose 141 mg/dL (74-106)
--- NOTE | 2025-02-23 10:59 | DVHPN2 ---
Progress Note Date Seen: Feb 23, 2025 Has the PT tested + for MRSA If YES, has PT been informed?: No Medical Necessity Reason Pt with a Central, PICC or Fol: Yes The following are medically ne: PICC Line, Leach Catheter Reason for leach catheter: Strict I&O Objective vital signs Vital Sign Date Time Temp Pulse Resp B/P (MAP) Pulse Ox O2 Delivery O2 Flow Rate FiO2 02/23/25 09:55 99 16 108/52 02/23/25 06:30 94 02/23/25 06:00 Room Air* 0 21 02/23/25 04:00 98.5 98.5 Total Intake and Output 02/22/25 02/22/25 02/23/25 15:00 23:00 07:00 Intake Total 654 ml 560 ml 997 ml Output Total 850 ml 1035 ml Balance 654 ml -290 ml -38 ml medications Current Medications Medications Dose Ordered Sig/Isaura Route Start Time Stop Time Status Last Admin Dose Admin Cefazolin Sodium 50 ml @ 100 mls/hr Q8HR IV 01/13/25 14:00 UNV Vasopressin 20 units/Sodium Chloride 100 ml @ 9 mls/hr Q11H7M IV 01/13/25 18:45 UNV Potassium Chloride 100 ml @ 50 mls/hr Q2H IV 01/16/25 12:45 01/16/25 18:44 UNV Vancomycin HCl 100 ml @ 100 mls/hr DAILY@1200 IV 01/20/25 12:00 UNV Sodium Chloride 10 ml QSHIFT@10,22 IV 01/26/25 22:00 02/22/25 21:29 10 ML Diagnostic Test (Pha) 1 strip Q6HR 01/31/25 18:00 02/22/25 23:15 1 STRIP Insulin Human Regular FOLLOW SLIDING SCALE Q6HR SC 01/31/25 18:00 02/23/25 05:50 2 UNITS Dextrose 50 ml UD IV 01/31/25 17:00 02/12/25 17:42 50 ML Labetalol HCl 10 mg Q4HP PRN IV 02/08/25 12:30 02/16/25 15:10 10 MG Amino Acids 0 ml @ 0 mls/hr PER PHARMACY IV 02/13/25 10:45 Hydromorphone HCl 0.5 mg Q4HPRN PRN IV 02/19/25 12:00 02/23/25 09:55 0.5 MG Ondansetron HCl 4 mg Q4HPRN PRN IV 02/21/25 09:30 02/22/25 23:16 4 MG Micafungin Sodium 100 mg/Sodium Chloride 100 ml @ 100 mls/hr DAILY IV 02/22/25 10:00 02/22/25 09:50 100 MLS/HR Ceftriaxone Sodium/Dextrose 50 ml @ 50 mls/hr DAILY@0900 IV 02/22/25 09:00 02/23/25 09:01 50 MLS/HR Trimethoprim/ Sulfamethoxazole 0 ml @ 0 mls/hr PER PHARMACY IV 02/21/25 17:00 Trimethoprim/ Sulfamethoxazole 15 ml/Dextrose 265 ml @ 176.667 mls/hr Q8H IV 02/21/25 20:00 02/23/25 05:00 176.667 MLS/HR Fat Emulsion Intravenous 150 ml/Sodium Phosphate 10 meq/ Potassium Acetate 30 meq/Potassium Phosphate 22 meq/ Magnesium Sulfate 6 meq/ Multivitamins 10 ml/Chromium/ Copper/Manganese/ Zinc 1 ml/Insulin Human Regular 5 units/Amino Acids/ Dextrose/Purified Water 1,285.05 ml @ 53 mls/hr [id number] IV 02/22/25 22:00 02/23/25 21:59 02/22/25 21:17 53 MLS/HR Multi-Ingredient Ointment 1 applic DAILY TOP 02/23/25 10:00 Fat Emulsion Intravenous 150 ml/Sodium Chloride 20 meq/ Sodium Phosphate 4 meq/Potassium Acetate 30 meq/ Potassium Phosphate 11 meq/ Magnesium Sulfate 2 meq/ Multivitamins 10 ml/Chromium/ Copper/Manganese/ Zinc 1 ml/Insulin Human Regular 3 units/Amino Acids/ Dextrose/Purified Water 1,285.03 ml @ 54 mls/hr [id number] IV 02/23/25 22:00 02/24/25 21:59 laboratory and microbiology Laboratory Tests 02/23/25 02:49 Test 02/23/25 02:49 Range/Units Serum Glucose 141 H 74-106 mg/dL Problem List/Assessment/Plan Problem List/Assessment/Plan 01/14/25 afebrile, low dose BP support, received transfusion, I believe her decreased hematocrit is due to hemodilution. abdomen non distended, soft, wound clean and well approximated, drainage serous . remains intubated and sedated 01/16/25 ALKALOSIS, ABDOMEN NON DISTENDED, SOFT, DRAINAGE SEROUS, WOUND CLEAN AND WELL APPROXIMATED 01/17/25 improved, thrombocytopenia possibly made worse by Fluconazole,will DC, abdomen non distended, wound well approximated without infection, TATY drainage serous, CVP 6, good urine output. 01/18/25 abg reviewed, ,abdomen soft, non distended, TATY drainage clear serous, no bowel activity, febrile, urine output ok, continues with thrombocytopenia,pt and inr slightly elevated. prognosis grave. 01/20/25remains sedated on ventilator, abdomen soft, non distended, faint bowel sounds auscultated by nurse, wound clean and well approximated, TATY drainage clear serous. continues with thrombocytopenia, still behind on intravascular volume( BUN and Creatinine elevated), i would give more IV fluids and DC vancomycin. 01/25/25 afebrile, normotensive, wound clean and well approximated, TATY drainage serous, abdomen non distended, soft, gastrografin small bowel series shows non obstructed GI tract and no evidence of extravasation. It is OK to initiate enteric feedings. 01/29/25 16 DAYS POST OPERATIVELY TRHE TATY DRAINAGE WHICH HAD CONSISTENTLY BEEN SEROUS OR SERO SANGUINEOUS HAS BECOME "DIRTY" BROWNISH DISCOLORATION, HER WOUND IS CLEAN AND WELL APPROXIMATED AND HER ABDOMEN IS SOFT AND NON DISTENDED, CT SCAN SHOWS SO0ME FLUID AND ACCUMULATION OF FLUID AROUND THE SPLEEN, WILL REQUEST CT GUIDED ASPIRATION OF SAME, WILL ORDER IRRIGATION OF DRAINS. SHE SI AFEBRILE AND MAINTAINS NORMAL BLOOD PRESSURE, HER WBC IS NORMAL. 01/30/25 improved, awake, being weaned off vent. abdomen non distended, non tender, taty drainage clearing with irrigation 02/02/25clinically unchanged, gastrografin small bowel series reported and normal, no extravasation reported, will order a follow up KUB for tomorrow AM 02/03/25 PATIENT HAD A GASTROGRAFIN SMALL BOWEL SERIES AND A FOLLOW UP KUB X RAYS NEITHER ONE OF WHICH SHOW EXTRAVASATION OF CONTRAST OR EVIDENCE OF FREE CONTRAST IN THE PERITONEAL CAVITY. THERE IS HOWEVER VISCOUS, BROWNISH FLUID DRAINING VIA BOTH TATY DRAINS AND THROUGH INFRAUMBILICAL PORTION OF MIDLINE WOUND, I REMOVED THE RICHIE FROM THE 3 CM SECTION OF THE INFRAUMBILICAL WOUND AND EVACUATED ABOUT 30 CC OF THIS FLUID AND INSTRUCTED THE NURSE TO PLACE A STOMA APPLIANCE ON THIS OPENING. 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 TODAY HER WBC IS ELEVATED, ABDOMEN CONTINUES TO BE NON DISTENDED, SOFT, BUT SHE DOES HAVE SLIGHT TENDERNESS IN THE PERIUMBILICAL AREA. I WILL TREAT THIS EXPECTANTLY FORM THE TIME BEING IN THE HOPE THAT THIS IS A "CONTROLLED" FISTULA AND HOPEFUL WILL HEAL SPONTANEOUSLY WITH NPO AND NUTRITIONAL SUPPORT. WILL WATCH CLOSELY, AFTER A FEW DAYS WILL GET A FISTULOGRAM TO PIN POINT THE ENTERIC ORIGIN OF THE FISTULIZATION. CONTINUE NGT SUCTION AND DRAIN IRRIGATION ORDERED02/05/25 02/05/25 remains sedated and intubated?ventilated, abdomen non distended soft, wound vac in place. TATY drainage serosanguineous 02/08/25 EXTUBATED, GOOD INSPIRATORY EFFORT, BP NML WITHOUT PRESSOR SUPPORT, ABDOMEN SOFT, NON DISTENDED, APPROPRIATELY TENDER, LABS REVIEWED. NO CHANGES TODAY OTHER THAN ALLOW ICE CHIPS PO. WILL ORDER GASTROGRAFIN SMALL BOWEL FOLLOWTHROUGH FOR Friday02/09/25 awake cooperative, wound vac in place, abdomen soft, non distended, appropriately tender, TATY drainage brownish discoloration, will irrigate, her WBC is normal and she is afebrile and normotensive. gastrografin tomorrow 02/10/25 AWAKE,COMFORTABLE, DENIES PAIN, ABDOMEN NON DISTENDED APPROPRIATELY TENDER, WOUND CLEAN AND WELL APPROXIMATED, DRAINS BEING IRRIGATED, LABS OK, GOOD URINE OUTPUT. "SURGICALLY" STABLE 02/11/25 feels well, passing flatus. is hungry, abdomen soft non distended, drainage clearing with irrigation, will wait for Gastrografin small bowel series to be completed, if normal will start po clear liquids 02/12/25 no nausea, change in TATY drainage colort, appears to contaIN, BILE, WILL DC po CLEAR LIQUIDS, CONTINUE ICE CGHIPS, SEND DRAin fluid for amylase and bilirubin, 02/13/25 states she feels well, abdomen non tender, non distended, wound clean and well approximated. drainage slightly clearer, keep npo for now, needs to resume TPN 02/14/25 PATIENT C/O BEING COLD BUT HAS NO PAIN, DRAINAGE SEEMS TO BE CLEARING, SHE HAD A BOWEL MOVEMENTS, ABDOMEN IS SOFT AND NON TENDER, NON DISTENDED, WOUND IS CLEAN AND WELL APPROXIMATED, WILL CONTINUE NPO STATUS AMYLASE ON TATY DRAINAGE FLUID IS GOING TO TAKE SEVERAL DAYS TO BECOME AVAILABLE. CONTINUE TPN 02/16/25 DENIES PAIN,STATES SHE FEELS BETTER, WOUND VAC IN PLACE, ABDOMEN NON TENDER,NON DISTENDED, TATY DRAINAGE SMALL TO MODERATE , WILL CONTINUE IRRIGATING DRAINS, WILL REQUEST GI CONSULT TO CONSIDER ENDOSCOPY. WBC NL,H/H STABLE , ALBUMIN STILL VERY LOW. , 02/17/25 CT SCAN REVIEWED, I SUSPECT THERE IS A SMALL LEAK FROM THE APPEARANCE OF IMAGING ALTHOUGH RADIOLOGIST RECOMMENDED REPEAT CT SCAN (ORDERED). THE DRAINAGE IS SMALL AMOUNT BUT NOW IT IS WITH AN ODOR, I WILL RE INSERT NGT TO ATTEMPT DECREASING THE GASTRIC CONTENTS. ABDOMEN IS SOFT, APPROPRIATELY TENDER, WOUND VAC IN PLACE 02/18/25 AFEBRILE, NORMOTENSIVE4, WBC NL, ALL IMAGING NEGATIVE, ANGIOGRAM SHOWS NO EVIDENCE OF HYPOPERFUSION, CONTRAST AND NON CONTRAST CT SCAN FAILED TO SHOW ANY EVIDENCE OF EXTRAVASATION, THE DRAINAGE CONTINUES TO BE BROWNISH DISCOLORED AND FOULS SMELLING, EXPLAINED TO PT'S SON THAT I HAVE NO EVIDENCE OF ANY GI LEAKAGE, WILL GET A GASTROGRAFIN ENEMA ON FRIDAY, I AM TRYING TO REFRAIN FROM OPERATING ON THE FRAIL ELDERLY PATIENT FOR THE THIRD TIME, SHE WILL NOT TOLERATE ANOTHYER OPERATION WELL. HER ALBUMIN REMAINS VERY LOW.WOUND VAC OK 02/19/25 feels ok,c/o being cold, abdomen soft. non distended, minimally tender, drainage seems to be little less, labs ok, continue as is 02/22/25 she feels well, abdomen is non tender, soft and non distended, drainage slightly less in volume, still discolored,gastrografin enema reviewed by me ( no radiologist/s interpretation available), she has not evacuated the gastrografin according to nurse. 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 will proceed with operation on 02/25/25 at 0715 AM. Plan discussed with: Patient, Son Dietary Evaluation Review Comments: Nutrition Recommendation: 1) TPN to meet at least 75% estimated needs within 7 days 2) Monitor NPO status, lab values, wt trend, I/O Expected Outcomes/Goals: To meet >75% estimated needs Lab values to improve Fu 2-3 days Is there a minimum of two crit: Yes MELVA RAMESH MD Feb 23, 2025 10:59
[2025-02-23] MEDS: EUCERIN CREAM 2OZ TUBE TOP SCH (11:15)
[2025-02-23] MEDS: HYDROmorphone HCL 2 MG/ML VL/or syr IV PRN (14:07)
--- NOTE | 2025-02-23 16:04 | DVHPNRES ---
Progress Note Date Seen: Feb 23, 2025 Resident Creating Document: GIGI FELIZ AMBROSE Has the PT tested + for MRSA If YES, has PT been informed?: No Medical Necessity Reason Pt with a Central, PICC or Fol: Yes The following are medically ne: PICC Line, Leach Catheter Reason for leach catheter: Strict I&O Subjective Review of Systems This is a 80-year-old lady with past medical history of hypertension, AFib (on Eliquis), diabetes type 2, CKD, came to the hospital due to abdominal pain, and constipation. Admitted on 01/13/2025. Found to have peritonitis due to bowel perforation, and underwent emergent laparotomy with subsequent resection of perforated small bowel and enteroenterostomy. Due to abnormal CARMEN drainage, second exploratory laparotomy performed on 02/04 and found to have perforation near to previous perforation area, underwent resection of area with subsequent anastomosis of proximal jejunal loops. Extubated on 02/07. Patient seen and evaluated in bedside today. On room air. Objective vital signs Vital Sign Date Time Temp Pulse Resp B/P (MAP) Pulse Ox O2 Delivery O2 Flow Rate FiO2 02/23/25 15:00 97 13 108/47 (67) 90 02/23/25 14:00 Room Air* 0 21 02/23/25 12:00 98.3 98.3 Total Intake and Output 02/22/25 02/22/25 02/23/25 15:00 23:00 07:00 Intake Total 654 ml 560 ml 1051 ml Output Total 850 ml 1035 ml Balance 654 ml -290 ml 16 ml medications Current Medications Medications Dose Ordered Sig/Isaura Route Start Time Stop Time Status Last Admin Dose Admin Cefazolin Sodium 50 ml @ 100 mls/hr Q8HR IV 01/13/25 14:00 UNV Vasopressin 20 units/Sodium Chloride 100 ml @ 9 mls/hr Q11H7M IV 01/13/25 18:45 UNV Potassium Chloride 100 ml @ 50 mls/hr Q2H IV 01/16/25 12:45 01/16/25 18:44 UNV Vancomycin HCl 100 ml @ 100 mls/hr DAILY@1200 IV 01/20/25 12:00 UNV Sodium Chloride 10 ml QSHIFT@10,22 IV 01/26/25 22:00 02/23/25 11:15 10 ML Diagnostic Test (Pha) 1 strip Q6HR 01/31/25 18:00 02/23/25 12:29 1 STRIP Insulin Human Regular FOLLOW SLIDING SCALE Q6HR SC 01/31/25 18:00 02/23/25 12:30 2 UNITS Dextrose 50 ml UD IV 01/31/25 17:00 02/12/25 17:42 50 ML Labetalol HCl 10 mg Q4HP PRN IV 02/08/25 12:30 02/16/25 15:10 10 MG Amino Acids 0 ml @ 0 mls/hr PER PHARMACY IV 02/13/25 10:45 Ondansetron HCl 4 mg Q4HPRN PRN IV 02/21/25 09:30 02/22/25 23:16 4 MG Micafungin Sodium 100 mg/Sodium Chloride 100 ml @ 100 mls/hr DAILY IV 02/22/25 10:00 02/23/25 11:15 100 MLS/HR Ceftriaxone Sodium/Dextrose 50 ml @ 50 mls/hr DAILY@0900 IV 02/22/25 09:00 02/23/25 09:01 50 MLS/HR Trimethoprim/ Sulfamethoxazole 0 ml @ 0 mls/hr PER PHARMACY IV 02/21/25 17:00 Trimethoprim/ Sulfamethoxazole 15 ml/Dextrose 265 ml @ 176.667 mls/hr Q8H IV 02/21/25 20:00 02/23/25 12:29 176.667 MLS/HR Fat Emulsion Intravenous 150 ml/Sodium Phosphate 10 meq/ Potassium Acetate 30 meq/Potassium Phosphate 22 meq/ Magnesium Sulfate 6 meq/ Multivitamins 10 ml/Chromium/ Copper/Manganese/ Zinc 1 ml/Insulin Human Regular 5 units/Amino Acids/ Dextrose/Purified Water 1,285.05 ml @ 53 mls/hr [id number] IV 02/22/25 22:00 02/23/25 21:59 02/22/25 21:17 53 MLS/HR Multi-Ingredient Ointment 1 applic DAILY TOP 02/23/25 10:00 02/23/25 11:15 1 APPLIC Fat Emulsion Intravenous 150 ml/Sodium Chloride 20 meq/ Sodium Phosphate 4 meq/Potassium Acetate 30 meq/ Potassium Phosphate 11 meq/ Magnesium Sulfate 2 meq/ Multivitamins 10 ml/Chromium/ Copper/Manganese/ Zinc 1 ml/Insulin Human Regular 3 units/Amino Acids/ Dextrose/Purified Water 1,285.03 ml @ 54 mls/hr [id number] IV 02/23/25 22:00 02/24/25 21:59 Hydromorphone HCl 1 mg Q4HPRN PRN IV 02/23/25 13:30 02/23/25 14:07 1 MG laboratory and microbiology Laboratory Tests 02/23/25 02:49 Test 02/23/25 02:49 Range/Units Serum Glucose 141 H 74-106 mg/dL Microbiology Date/Time Source Procedure Growth Status 02/17/25 19:45 Peritoneal Fluid Gram Stain - Final Resulted 02/17/25 19:45 Body Fluid Culture - Preliminary Escherichia coli Stenotrophomonas maltophilia Resulted 02/15/25 10:12 Urine - [place] Urine Culture - Final Yeast, not Zoe albicans Complete 01/29/25 14:00 Sputum Gram Stain - Final Complete 01/29/25 14:00 Respiratory Culture - Final Presumptive Zoe albicans Complete 01/29/25 10:40 Blood Blood Culture - Final NO GROWTH AFTER 5 DAYS OF INCUBATION. Complete 01/13/25 17:10 Nose MRSA Screen - Final Complete Labs and/or images reviewed: Labs reviewed by me, Image(s) reviewed by me Problem List/Assessment/Plan Problem List/Assessment/Plan This is a 80-year-old lady with past medical history of hypertension, AFib (on Eliquis), diabetes type 2, CKD, came to the hospital due to abdominal pain, and constipation. Admitted on 01/13/2025. Found to have peritonitis due to bowel perforation, and underwent emergent laparotomy with subsequent resection of perforated small bowel and enteroenterostomy. Due to abnormal CARMEN drainage, second exploratory laparotomy performed on 02/04 and found to have perforation near to previous perforation area, underwent resection of area with subsequent anastomosis of proximal jejunal loops. Extubated on 02/07. 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 PULMONARY: Acute hypoxic respiratory failure secondary to bilateral pleural effusion/pneumonia Chest x-ray demonstrated bilateral hazy opacities * Sputum culture from 01/29 shows presumptive Zoe albicans * Status post extubation, on nasal cannula * Plan: Physiotherapy GASTROINTESTINAL: Peritonitis due to Perforation of the small bowel, status post exploratory laparotomy Transaminitis secondary to shock Perisplenic abscess * Peritoneal fluid culture from 01/13 shows E coli and Klebsiella pneumoniae sensitive to meropenem (given for 11 days, stopped on 01/31) * CT scan on 01/31 shows, moderate sized fluid collection in the perisplenic region * IR consulted, put pigtail drain, and has drained 50 cc purulent fluid * Patient has brownish discharge of the drain * Small bowel series, normal study * Patient has leakage from surgical area and drainage * Second laparotomy, performed on 02/04, lysis of adhesions, evacuation of pelvic and abdominal infection, resection of proximal jejunum, ileostomy, and jejunostomy and put for CARMEN drains at 4 quadrants * Small bowel series on 02/11, normal study, per surgery okay to start clear liquid diet * CT abdominopelvic on 02/16 showed, left abdominal pneumoperitoneum which overall appears similar/slightly more pronounced than on the examination from 01/29/2025, appears to be a small amount of extraluminal contrast,and perisplenic subcapsular collection/subdiaphragmatic collection measuring 7.1 x 1.1 cm * Peritoneal fluid culture 02/17 shows E coli, sensitive to meropenem * 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, [place]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 and contrast leak from distal transverse colon * Plan: IV abx, NPO, TPN, NG tube, laparotomy planned on GENITOURINARY: [place] likely due to shock/VMN, resolved * Monitoring ENDOCRINE: History of hypothyroidism Type 2 diabetes mellitus, hemoglobin A1c 8.2 * Few episodes of hypoglycemia * TSH is raised at 16.29, normal free T4 METABOLIC: Hypokalemia Hyperkalemia Hyponatremia, Nephrology recommended D5W at 75 mL/hour Severe metabolic protein malnutrition * Anion gap metabolic acidosis secondary to bowel ischemia leading to lactic acidosis HEME: Acute on chronic anemia secondary to hemodilution/post surgical 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 * 5 unit of PRBC, 2 pt of platelet, has been given INFECTIOUS DISEASE: Sepsis with septic shock secondary to perforation of the small bowel * Blood culture from 01/29 preliminary result shows Gram-positive rods (1/4 sets of blood culture) * Discontinued levofloxacin Flagyl on 02/03 * Discontine vancomycin and meropenem started on 02/03 given up to 02/13 * Discontinue meropenem (02/17 given up to 02/21), and vancomycin (02/17 given up to 02/11) * Peritoneal fluid culture 02/17 shows E coli and Stenotrophmonas maltophilia * Plan: Bactrim (02/21), Rocephin (02/21), and micafungin (02/21) MUSCULOSKELETAL: Rib fracture, due to fall DIET: Clear liquid diet DVT prophylax: Lovenox GI prophylaxis: Pantoprazole Bowel regimen: Code status: Full code LINES/DRAINS/ACCESS: ETT: Intubated on 01/14/25, extubated on 02/07 IV access: Rt upper thigh PICC placed on 01/26/2025 Drips: off from pressor and sedatives Leach catheter: Placed on 01/14, exchange on 02/14 CARMEN drainage: Four CARMEN drain in 4 quadrants of abdomen DISPOSITION: Downgraded to SHERRY Patient's status discussed with patient and patient's son at the bedside. Critical care time spent more than 49 minutes, including patient care, chart review, and updating the family. Excluding any procedures. Case discussed with Dr. Self Plan discussed with: Patient, Other My Orders My Orders Orders - GIGI FELIZ RESDIADRIANA Procedure Category Date Status Time Skin Protectants, PHA 02/23/25 In Process Misc. (Eucerin Cream) 10:00 Cover Wound With Foam SAPPHIRE 02/23/25 In Process Dressing 15:21 Dietary Evaluation Review Comments: Nutrition Recommendation: 1) TPN to meet at least 75% estimated needs within 7 days 2) Monitor NPO status, lab values, wt trend, I/O Expected Outcomes/Goals: To meet >75% estimated needs Lab values to improve Fu 2-3 days Is there a minimum of two crit: Yes CC Plasma Assessment Blood Product Administration S: [id number] Date of Service: Feb 23, 2025 Billing Provider: ZBIGNIEW SELF MD Common Visit Codes: 39105-[id number] CARE 30-74 MIN GIGI FELIZ Feb 23, 2025 16:04 ZBIGNIEW SELF MD Feb 24, 2025 10:41
--- NOTE | 2025-02-23 21:23 | DVHPN2 ---
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 vital signs Vital Sign Date Time Temp Pulse Resp B/P (MAP) Pulse Ox O2 Delivery O2 Flow Rate FiO2 02/23/25 20:49 101 13 110/51 02/23/25 18:00 93 02/23/25 18:00 Room Air* 0 21 02/23/25 16:00 98.7 98.7 Total Intake and Output 02/22/25 02/22/25 02/23/25 15:00 23:00 07:00 Intake Total 654 ml 560 ml 1051 ml Output Total 850 ml 1035 ml Balance 654 ml -290 ml 16 ml medications Current Medications Medications Dose Ordered Sig/Isaura Route Start Time Stop Time Status Last Admin Dose Admin Cefazolin Sodium 50 ml @ 100 mls/hr Q8HR IV 01/13/25 14:00 UNV Vasopressin 20 units/Sodium Chloride 100 ml @ 9 mls/hr Q11H7M IV 01/13/25 18:45 UNV Potassium Chloride 100 ml @ 50 mls/hr Q2H IV 01/16/25 12:45 01/16/25 18:44 UNV Vancomycin HCl 100 ml @ 100 mls/hr DAILY@1200 IV 01/20/25 12:00 UNV Sodium Chloride 10 ml QSHIFT@10,22 IV 01/26/25 22:00 02/23/25 20:54 10 ML Diagnostic Test (Pha) 1 strip Q6HR 01/31/25 18:00 02/23/25 17:38 1 STRIP Insulin Human Regular FOLLOW SLIDING SCALE Q6HR SC 01/31/25 18:00 02/23/25 17:44 2 UNITS Dextrose 50 ml UD IV 01/31/25 17:00 02/12/25 17:42 50 ML Labetalol HCl 10 mg Q4HP PRN IV 02/08/25 12:30 10/8/25 15:10 10 MG Amino Acids 0 ml @ 0 mls/hr PER PHARMACY IV 02/13/25 10:45 Ondansetron HCl 4 mg Q4HPRN PRN IV 02/21/25 09:30 02/23/25 17:17 4 MG Micafungin Sodium 100 mg/Sodium Chloride 100 ml @ 100 mls/hr DAILY IV 02/22/25 10:00 02/23/25 11:15 100 MLS/HR Ceftriaxone Sodium/Dextrose 50 ml @ 50 mls/hr DAILY@0900 IV 02/22/25 09:00 02/23/25 09:01 50 MLS/HR Trimethoprim/ Sulfamethoxazole 0 ml @ 0 mls/hr PER PHARMACY IV 02/21/25 17:00 Trimethoprim/ Sulfamethoxazole 15 ml/Dextrose 265 ml @ 176.667 mls/hr Q8H IV 02/21/25 20:00 02/23/25 20:47 176.667 MLS/HR Fat Emulsion Intravenous 150 ml/Sodium Phosphate 10 meq/ Potassium Acetate 30 meq/Potassium Phosphate 22 meq/ Magnesium Sulfate 6 meq/ Multivitamins 10 ml/Chromium/ Copper/Manganese/ Zinc 1 ml/Insulin Human Regular 5 units/Amino Acids/ Dextrose/Purified Water 1,285.05 ml @ 53 mls/hr [id number] IV 02/22/25 22:00 02/23/25 21:59 02/22/25 21:17 53 MLS/HR Multi-Ingredient Ointment 1 applic DAILY TOP 02/23/25 10:00 02/23/25 11:15 1 APPLIC Fat Emulsion Intravenous 150 ml/Sodium Chloride 20 meq/ Sodium Phosphate 4 meq/Potassium Acetate 30 meq/ Potassium Phosphate 11 meq/ Magnesium Sulfate 2 meq/ Multivitamins 10 ml/Chromium/ Copper/Manganese/ Zinc 1 ml/Insulin Human Regular 3 units/Amino Acids/ Dextrose/Purified Water 1,285.03 ml @ 54 mls/hr [id number] IV 02/23/25 22:00 02/24/25 21:59 Hydromorphone HCl 1 mg Q4HPRN PRN IV 02/23/25 13:30 02/23/25 20:49 1 MG objective General Appearance: Alert, Oriented X3, Cooperative, No acute distress HEENT: Atraumatic, PERRLA, EOMI, Mucous membrane moist/pink Respiratory: Clear to auscultation, Normal air movement Cardiovascular: Regular rate, Normal S1, Normal S2, No murmurs, no chest wall tenderness Abdominal: Mild abdominal tenderness, with wound VAC at the midline, for CARMEN drain at 4 quadrant, draining brownish fluid Extremities: No clubbing, No cyanosis, No edema, Normal pulses, No tenderness/swelling Skin: No rashes, No breakdown, No significant lesion Neuro: Grossly intact Psych/Mental Status: Mental status NL, Mood NL laboratory and microbiology Laboratory Tests 02/23/25 02:49 Test 02/23/25 02:49 Range/Units Serum Glucose 141 H 74-106 mg/dL Problems(with codes): (1) Ischemic bowel disease (2) Acute renal injury (3) Intestinal perforation Prognosis Plan Continue supportive care Keep the patient NPO Continue IV TPN and IV antibiotics Patient is scheduled for laparotomy and exploration on 02/25/2025 Dietary Evaluation Review Comments: Nutrition Recommendation: 1) TPN to meet at least 75% estimated needs within 7 days 2) Monitor NPO status, lab values, wt trend, I/O Expected Outcomes/Goals: To meet >75% estimated needs Lab values to improve Fu 2-3 days Is there a minimum of two crit: Yes Plan discussed with: Other (Dr Christy) CC Plasma Assessment Blood Product Administration S: [id number] FRANCISCA RODRÍGUEZ MD Feb 23, 2025 21:23
[2025-02-23] MEDS: TPN PER PHARMACY IV NR (22:48)
[2025-02-24] VITALS (29 sets, daily range): BP systolic 96–133; BP diastolic 47–72; PULSE 93–118; RESP 10–19; TEMP 98.5–99.5; O2SAT 92–98
[2025-02-24] MEDS ORDERED: ACETAMINOPHEN 325 MG TAB PO PRN (02:00)
[2025-02-24 03:42] LABS: Anion Gap 8 (5-15); BUN/Creatinine Ratio 31.5 (10.0-20.0); Carbon Dioxide 28 mmol/L (20-31); Magnesium 2.1 mg/dL (1.6-2.6); Potassium 4.3 mmol/L (3.5-5.1); Total Protein 6.4 g/dL (5.7-8.2)
[2025-02-24 03:43] LABS: Bilirubin, Total 0.6 mg/dL (0.2-1.0)
[2025-02-24 03:58] LABS: Alanine Aminotransferase 47 U/L (7-40); Albumin 2.5 g/dL (3.2-4.8); Alkaline Phosphatase 229 U/L (46-116); Blood Urea Nitrogen 35 mg/dL (9-23); Calcium 8.7 mg/dL (8.7-10.4); Chloride 97 mmol/L (98-107); Glucose 125 mg/dL (74-106); Sodium 133 mmol/L (136-145)
[2025-02-24] MEDS: LIDOCAINE 5% TOPICAL PATCH TOP SCH (04:49)
[2025-02-24] MEDS ORDERED: LIDOCAINE 5% TOPICAL PATCH TOP SCH (10:00)
[2025-02-24 10:01] LABS: Mean Corpuscular Hemoglobin 30.6 pg (28.0-32.0)
[2025-02-24 10:03] LABS: Hematocrit 24.3 % (36.0-46.0); Hemoglobin 8.1 g/dL (12.2-16.2); Mean Corpuscular Volume 92.0 fL (80.0-100.0)
--- NOTE | 2025-02-24 10:28 | DVHPNRES ---
Progress Note Date Seen: Feb 24, 2025 Resident Creating Document: GIGI FELIZ RESDIENT Has the PT tested + for MRSA If YES, has PT been informed?: No Medical Necessity Reason Pt with a Central, PICC or Fol: Yes The following are medically ne: PICC Line, Leach Catheter Reason for leach catheter: Strict I&O Objective vital signs Vital Sign Date Time Temp Pulse Resp B/P (MAP) Pulse Ox O2 Delivery O2 Flow Rate FiO2 02/24/25 10:06 94 12 120/65 02/24/25 10:00 98 02/24/25 10:00 Nasal Cannula* 2 28 02/24/25 08:00 99.3 99.3 Total Intake and Output 02/23/25 02/23/25 02/24/25 14:59 22:59 06:59 Intake Total 847 ml 306 ml 542 ml Output Total 1445 ml 1900 ml Balance 847 ml -1139 ml -1358 ml medications Current Medications Medications Dose Ordered Sig/Isaura Route Start Time Stop Time Status Last Admin Dose Admin Cefazolin Sodium 50 ml @ 100 mls/hr Q8HR IV 01/13/25 14:00 UNV Vasopressin 20 units/Sodium Chloride 100 ml @ 9 mls/hr Q11H7M IV 01/13/25 18:45 UNV Potassium Chloride 100 ml @ 50 mls/hr Q2H IV 01/16/25 12:45 01/16/25 18:44 UNV Vancomycin HCl 100 ml @ 100 mls/hr DAILY@1200 IV 01/20/25 12:00 UNV Sodium Chloride 10 ml QSHIFT@,22 IV 01/26/25 22:00 02/24/25 07:52 10 ML Diagnostic Test (Pha) 1 strip Q6HR 01/31/25 18:00 02/24/25 05:07 1 STRIP Insulin Human Regular FOLLOW SLIDING SCALE Q6HR SC 01/31/25 18:00 02/23/25 17:44 2 UNITS Dextrose 50 ml UD IV 01/31/25 17:00 02/12/25 17:42 50 ML Labetalol HCl 10 mg Q4HP PRN IV 02/08/25 12:30 02/16/25 15:10 10 MG Amino Acids 0 ml @ 0 mls/hr PER PHARMACY IV 02/13/25 10:45 Ondansetron HCl 4 mg Q4HPRN PRN IV 02/21/25 09:30 02/24/25 04:56 4 MG Micafungin Sodium 100 mg/Sodium Chloride 100 ml @ 100 mls/hr DAILY IV 02/22/25 10:00 02/24/25 07:52 100 MLS/HR Ceftriaxone Sodium/Dextrose 50 ml @ 50 mls/hr DAILY@0900 IV 02/22/25 09:00 02/24/25 07:52 50 MLS/HR Trimethoprim/ Sulfamethoxazole 0 ml @ 0 mls/hr PER PHARMACY IV 02/21/25 17:00 Trimethoprim/ Sulfamethoxazole 15 ml/Dextrose 265 ml @ 176.667 mls/hr Q8H IV 02/21/25 20:00 02/24/25 04:00 176.667 MLS/HR Multi-Ingredient Ointment 1 applic DAILY TOP 02/23/25 10:00 02/24/25 07:53 1 APPLIC Fat Emulsion Intravenous 150 ml/Sodium Chloride 20 meq/ Sodium Phosphate 4 meq/Potassium Acetate 30 meq/ Potassium Phosphate 11 meq/ Magnesium Sulfate 2 meq/ Multivitamins 10 ml/Chromium/ Copper/Manganese/ Zinc 1 ml/Insulin Human Regular 3 units/Amino Acids/ Dextrose/Purified Water 1,285.03 ml @ 54 mls/hr [id number] IV 02/23/25 22:00 02/24/25 21:59 02/23/25 22:48 54 MLS/HR Hydromorphone HCl 1 mg Q4HPRN PRN IV 02/23/25 13:30 02/24/25 09:22 1 MG Acetaminophen 650 mg Q4HP PRN PO 02/24/25 02:00 Lidocaine 1 patch DAILY@0230 TOP 02/24/25 02:30 02/24/25 04:49 1 PATCH Fat Emulsion Intravenous 150 ml/Sodium Chloride 40 meq/ Potassium Acetate 30 meq/Magnesium Sulfate 2 meq/ Multivitamins 10 ml/Chromium/ Copper/Manganese/ Zinc 1 ml/Insulin Human Regular 3 units/Amino Acids/ Dextrose/Purified Water 1,286.53 ml @ 54 mls/hr [id number] IV 02/24/25 22:00 02/25/25 21:59 Examination General Appearance: Alert, Oriented X3, Cooperative, No acute distress HEENT: Atraumatic, PERRLA, EOMI, Mucous membrane moist/pink Respiratory: Clear to auscultation, Normal air movement Cardiovascular: Regular rate, Normal S1, Normal S2, No murmurs, no chest wall tenderness Abdominal: Mild abdominal tenderness, with wound VAC at the midline, for CARMEN drain at 4 quadrant, draining brownish fluid Extremities: No clubbing, No cyanosis, No edema, Normal pulses, No tenderness/swelling Skin: No rashes, No breakdown, No significant lesion Neuro: Grossly intact Psych/Mental Status: Mental status NL, Mood NL laboratory and microbiology Laboratory Tests 02/24/25 02:46 Test 02/24/25 02:46 Range/Units Serum Glucose 125 H 74-106 mg/dL Microbiology Date/Time Source Procedure Growth Status 02/17/25 19:45 Peritoneal Fluid Gram Stain - Final Resulted 02/17/25 19:45 Body Fluid Culture - Preliminary Escherichia coli Stenotrophomonas maltophilia Resulted 02/15/25 10:12 Urine - [place] Urine Culture - Final Yeast, not Zoe albicans Complete 01/29/25 14:00 Sputum Gram Stain - Final Complete 01/29/25 14:00 Respiratory Culture - Final Presumptive Zoe albicans Complete 01/29/25 10:40 Blood Blood Culture - Final NO GROWTH AFTER 5 DAYS OF INCUBATION. Complete 01/13/25 17:10 Nose MRSA Screen - Final Complete Problem List/Assessment/Plan Problem List/Assessment/Plan This is a 80-year-old lady with past medical history of hypertension, AFib (on Eliquis), diabetes type 2, CKD, came to the hospital due to abdominal pain, and constipation. Admitted on 01/13/2025. Found to have peritonitis due to bowel perforation, and underwent emergent laparotomy with subsequent resection of perforated small bowel and enteroenterostomy. Due to abnormal CARMEN drainage, second exploratory laparotomy performed on 02/04 and found to have perforation near to previous perforation area, underwent resection of area with subsequent anastomosis of proximal jejunal loops. Extubated on 02/07. 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 PULMONARY: Acute hypoxic respiratory failure secondary to bilateral pleural effusion/pneumonia Chest x-ray demonstrated bilateral hazy opacities * Sputum culture from 01/29 shows presumptive Zoe albicans * Status post extubation, on nasal cannula * Plan: Physiotherapy GASTROINTESTINAL: Peritonitis due to Perforation of the small bowel, status post exploratory laparotomy Transaminitis secondary to shock Perisplenic abscess * Peritoneal fluid culture from 01/13 shows E coli and Klebsiella pneumoniae sensitive to meropenem (given for 11 days, stopped on 01/31) * CT scan on 01/31 shows, moderate sized fluid collection in the perisplenic region * IR consulted, put pigtail drain, and has drained 50 cc purulent fluid * Patient has brownish discharge of the drain * Small bowel series, normal study * Patient has leakage from surgical area and drainage * Second laparotomy, performed on 02/04, lysis of adhesions, evacuation of pelvic and abdominal infection, resection of proximal jejunum, ileostomy, and jejunostomy and put for CARMEN drains at 4 quadrants * Small bowel series on 02/11, normal study, per surgery okay to start clear liquid diet * CT abdominopelvic on 02/16 showed, left abdominal pneumoperitoneum which overall appears similar/slightly more pronounced than on the examination from 01/29/2025, appears to be a small amount of extraluminal contrast,and perisplenic subcapsular collection/subdiaphragmatic collection measuring 7.1 x 1.1 cm * Peritoneal fluid culture 02/17 shows E coli, sensitive to meropenem * 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, Ong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 and contrast leak from distal transverse colon * Plan: IV abx, NPO, TPN, NG tube, laparotomy planned on GENITOURINARY: ISRRAEL likely due to shock/VMN, resolved * Monitoring ENDOCRINE: History of hypothyroidism Type 2 diabetes mellitus, hemoglobin A1c 8.2 * Few episodes of hypoglycemia * TSH is raised at 16.29, normal free T4 METABOLIC: Hypokalemia Hyperkalemia Hyponatremia, Nephrology recommended D5W at 75 mL/hour Severe metabolic protein malnutrition * Anion gap metabolic acidosis secondary to bowel ischemia leading to lactic acidosis HEME: Acute on chronic anemia secondary to hemodilution/post surgical 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 * 5 unit of PRBC, 2 pt of platelet, has been given INFECTIOUS DISEASE: Sepsis with septic shock secondary to perforation of the small bowel * Blood culture from 01/29 preliminary result shows Gram-positive rods (1/4 sets of blood culture) * Discontinued levofloxacin Flagyl on 02/03 * Discontine vancomycin and meropenem started on 02/03 given up to 02/13 * Discontinue meropenem (02/17 given up to 02/21), and vancomycin (02/17 given up to 02/11) * Peritoneal fluid culture 02/17 shows E coli and Stenotrophmonas maltophilia * Plan: Bactrim (02/21), Rocephin (02/21), and micafungin (02/21) MUSCULOSKELETAL: Rib fracture, due to fall DIET: Clear liquid diet DVT prophylax: Lovenox GI prophylaxis: Pantoprazole Bowel regimen: Code status: Full code LINES/DRAINS/ACCESS: ETT: Intubated on 01/14/25, extubated on 02/07 IV access: Rt upper thigh PICC placed on 01/26/2025 Drips: off from pressor and sedatives Leach catheter: Placed on 01/14, exchange on 02/14 CARMEN drainage: Four CARMEN drain in 4 quadrants of abdomen DISPOSITION: Downgraded to SHERRY Patient's status discussed with patient and patient's son at the bedside. Critical care time spent more than 59 minutes, including patient care, chart review, and updating the family. Excluding any procedures. Case discussed with Dr. Self Plan discussed with: Other My Orders My Orders Orders - GIGI FELIZ Procedure Category Date Status Time Complete Blood Count LAB 02/24/25 In Process 08:43 Manual Differential LAB 02/24/25 In Process 02:46 Dietary Evaluation Review Comments: Nutrition Recommendation: 1) TPN to meet at least 75% estimated needs within 7 days 2) Monitor NPO status, lab values, wt trend, I/O Expected Outcomes/Goals: To meet >75% estimated needs Lab values to improve Fu 2-3 days Is there a minimum of two crit: Yes CC Plasma Assessment Blood Product Administration S: [id number] Date of Service: Feb 24, 2025 Billing Provider: ZBIGNIEW SELF MD Common Visit Codes: 88804-[id number] CARE 30-74 MIN GIGI FELIZ Feb 24, 2025 10:28 ZBIGNIEW SELF MD Feb 26, 2025 11:10
[2025-02-24 11:36] LABS: Total Cells Counted 100.0 (100)
[2025-02-24 11:40] LABS: Anisocytosis Slight; Stomatocytes Few
[2025-02-24] MEDS: TPN PER PHARMACY IV NR (21:08)
[2025-02-25] VITALS (71 sets, daily range): BP systolic 69–179; BP diastolic 34–115; PULSE 60–135; RESP 11–30; TEMP 97.3–99.4; O2SAT 80–100
[2025-02-25 03:40] LABS: Hematocrit 26.1 % (36.0-46.0); Hemoglobin 8.6 g/dL (12.2-16.2); Mean Corpuscular Hemoglobin 29.7 pg (28.0-32.0); Mean Corpuscular Volume 90.4 fL (80.0-100.0); Nucleated Red Blood Cells % 0.0 %
[2025-02-25 04:05] LABS: Anion Gap 14 (5-15); BUN/Creatinine Ratio 33.3 (10.0-20.0); Carbon Dioxide 29 mmol/L (20-31); Magnesium 2.1 mg/dL (1.6-2.6); Potassium 3.8 mmol/L (3.5-5.1); Sodium 136 mmol/L (136-145); Total Protein 6.5 g/dL (5.7-8.2)
[2025-02-25 04:06] LABS: Alanine Aminotransferase 46 U/L (7-40); Albumin 2.5 g/dL (3.2-4.8); Alkaline Phosphatase 229 U/L (46-116); Blood Urea Nitrogen 36 mg/dL (9-23); Calcium 8.6 mg/dL (8.7-10.4); Chloride 93 mmol/L (98-107); Glucose 120 mg/dL (74-106)
[2025-02-25 04:07] LABS: Bilirubin, Total 0.7 mg/dL (0.2-1.0)
[2025-02-25] MEDS: cefTRIAXone SOD 1,000 MG VL ONE (07:10)
[2025-02-25] MEDS: BUPIVACAINE 0.5% P/F INJ 10 ML VIAL ONE (07:18)
[2025-02-25] MEDS: LIDOCAINE W/ EPINEPHRINE 1% 20ML VIAL ONE (07:18)
[2025-02-25] MEDS ORDERED: fentaNYL CITRATE 100 MCG/2 ML VL ONE (07:51)
[2025-02-25] MEDS ORDERED: MIDAZOLAM HCL 2MG/2ML 2ml VIAL (1mg/ml) ONE ×2 (07:51→11:02)
[2025-02-25] MEDS ORDERED: HYDROmorphone HCL 2 MG/ML VL/or syr ONE (07:52)
[2025-02-25] MEDS ORDERED: fentaNYL CITRATE 5 ML ONE ×2 (07:52→09:55)
[2025-02-25] MEDS: NOREPINEPHRINE 8 MG/250ML KIT 250 ML IV ONE (08:57)
[2025-02-25] MEDS ORDERED: ETOMIDATE (2MG/ML) 20ML VIAL IV ONE (09:05)
[2025-02-25 09:37] LABS: INR 1.3 (0.9-1.15); Prothrombin Time 13.4 sec (9.3-11.8)
[2025-02-25 10:31] LABS: Base Excess -3.1 mmol/L (-2.0-3.0)
[2025-02-25] MEDS ORDERED: MIDAZOLAM DRIP 50 mg/50mL 50 ML IV SCH (11:30)
[2025-02-25] MEDS: PHENYLEPHRINE IV 250 ML IV SCH (11:45)
[2025-02-25] MEDS: NOREPINEPHRINE 8 MG/250ML KIT 250 ML IV SCH (11:45)
[2025-02-25] MEDS: fentaNYL Drip 2500mCg/250mlNS 250 ML IV SCH (12:00)
--- NOTE | 2025-02-25 12:07 | DVHOP ---
DATE OF SURGERY: 02/25/2025 PREOPERATIVE DIAGNOSES: Peritonitis, feculent leakage, and sepsis. SURGEON: Christian Christy MD CADD OPERATOR: Jean Claude Preciado. SECOND SURGEON: Dr. Beulah Rivera. ANESTHESIA: General endotracheal, Dr. Miramontes. DESCRIPTION OF PROCEDURE: Under general endotracheal anesthesia with the patient's skin prepped and draped, lilly from preexisting incision were removed as were the 4 drains within the peritoneal cavity. The abdomen was prepped with Betadine and opened through the healing scar. Following entry into the peritoneal cavity, a copious amount of feculent material was evacuated. There was exuberant adhesive process throughout the peritoneal cavity and meticulous division of all the adhesions ensued. There was a perforation in the distal ileum just proximal to what appeared to be an obstruction secondary to adhesions and kinking of the bowel. This was resected and an end-to-end anastomosis was stapled. The entire bowel was then mobilized. There were areas of potential leakage encountered on the ascending colon and transverse colon. For this reason, the distal ileum was divided with a MAGGY stapler and the colon was removed from the cecum to the mid portion of the descending colon. The abdomen was inspected. The bowel was thoroughly inspected from the remaining distal ileum to the ligament of Treitz where the anastomosis from the original operation appeared to be intact. Abdomen was profusely irrigated and ileostomy opening was created in the right abdominal wall and the ileum was brought through this ileostomy opening. The descending colon and rectosigmoid colon were inspected and appeared to be intact without any evidence of any injury to it. Abdomen was profusely irrigated with warm saline. Needle and sponge counts were reported as accurate. Hemostasis was complete. Closure accomplished after insertion of a 10 mm Mendel-Steele drain through a separate incision and was secured with a 2-0 nylon suture. Abdomen was closed using #1 double-stranded PDS suture, metallic skin lilly, and a wound VAC. The ileostomy was then matured with 3-0 Vicryl suture. The patient remained in unchanged condition at the termination of the procedure and was transferred back to the ICU on a ventilator. Family was thoroughly informed in the waiting area. MD CANDI Langley/ZEFERINO TID: [id number] RECEIPT: [id number]
[2025-02-25] MEDS: MIDAZOLAM DRIP 50 mg/50mL 50 ML IV SCH (12:15)
--- NOTE | 2025-02-25 12:21 | DVH ---
CHEST RADIOGRAPH Indication: POST O.R.INTUBATION Technique: Single frontal view of the chest was obtained COMPARISON: XY CHEST XRAY 1 VIEW on DOS: 02/22/25, XY CHEST PORTABLE on DOS: 02/17/25, XY CHEST XRAY 1 VIEW on DOS: 02/15/25, XY CHEST XRAY 1 VIEW on DOS: 02/11/25, XY CHEST XRAY 1 VIEW on DOS: 02/08/25 FINDINGS: Endotracheal tube in satisfactory position. Enteric catheter in satisfactory position. Left lower lob e airspace disease. No effusion. No pneumothorax. Cardiomediastinal contours: Unremarkable. Bones: Un remarkable. IMPRESSION: Endotracheal tube in satisfactory position.
[2025-02-25] MEDS: VASOPRESSIN 20 UNITS in SODIUM CHL 0.9% 99 ML IV SCH (13:02)
[2025-02-25 13:26] LABS: Base Excess -14.8 mmol/L (-2.0-3.0)
[2025-02-25 13:49] LABS: Hematocrit 36.3 % (36.0-46.0); Hemoglobin 11.8 g/dL (12.2-16.2); Mean Corpuscular Hemoglobin 30.3 pg (28.0-32.0); Mean Corpuscular Volume 93.1 fL (80.0-100.0); Nucleated Red Blood Cells % 0.0 %
[2025-02-25] MEDS: SODIUM BICARB 8.4% 50Meq/50ml SYR Vial IV ONE ×2 (13:53→19:47)
[2025-02-25 14:01] LABS: Anion Gap 12 (5-15); BUN/Creatinine Ratio 24.6 (10.0-20.0); Chloride 103 mmol/L (98-107); Potassium 5.1 mmol/L (3.5-5.1)
[2025-02-25 14:02] LABS: Bilirubin, Total 1.0 mg/dL (0.2-1.0)
[2025-02-25 14:03] LABS: Alanine Aminotransferase 46 U/L (7-40); Albumin 1.7 g/dL (3.2-4.8); Alkaline Phosphatase 155 U/L (46-116); Blood Urea Nitrogen 32 mg/dL (9-23); Calcium 8.0 mg/dL (8.7-10.4); Carbon Dioxide 17 mmol/L (20-31); Sodium 132 mmol/L (136-145); Total Protein 4.5 g/dL (5.7-8.2)
[2025-02-25 14:04] LABS: Glucose 421 mg/dL (74-106)
--- NOTE | 2025-02-25 14:21 | DVHPNRES ---
Progress Note Date Seen: Feb 25, 2025 Resident Creating Document: GIGI FELIZ AMBROSE Has the PT tested + for MRSA If YES, has PT been informed?: No Medical Necessity Reason Pt with a Central, PICC or Fol: Yes The following are medically ne: PICC Line, Leach Catheter Reason for leach catheter: Strict I&O Subjective Review of Systems This is a 80-year-old lady with past medical history of hypertension, AFib (on Eliquis), diabetes type 2, CKD, came to the hospital due to abdominal pain, and constipation. Admitted on 01/13/2025. Found to have peritonitis due to bowel perforation, and underwent emergent laparotomy with subsequent resection of perforated small bowel and enteroenterostomy. Due to abnormal CARMEN drainage, second exploratory laparotomy performed on 02/04 and found to have perforation near to previous perforation area, underwent resection of area with subsequent anastomosis of proximal jejunal loops. Extubated on 02/07. Seen and examined at the bedside. Patient is receiving back from, intubated and on mechanical ventilation. Patient reports: No new complaints, Feels better Objective vital signs Vital Sign Date Time Temp Pulse Resp B/P (MAP) Pulse Ox O2 Delivery O2 Flow Rate FiO2 02/25/25 13:02 108/69 02/25/25 12:45 97.9 134 16 93 208.2 02/25/25 12:19 50 02/25/25 12:00 Mechanical Ventilator+ 02/25/25 06:50 2 Total Intake and Output 02/24/25 02/24/25 02/25/25 15:00 23:00 07:00 Intake Total 758 ml 747 ml 728 ml Output Total 1900 ml 1555 ml Balance 758 ml -1153 ml -827 ml medications Current Medications Medications Dose Ordered Sig/Isaura Route Start Time Stop Time Status Last Admin Dose Admin Cefazolin Sodium 50 ml @ 100 mls/hr Q8HR IV 01/13/25 14:00 UNV Vasopressin 20 units/Sodium Chloride 100 ml @ 9 mls/hr Q11H7M IV 01/13/25 18:45 UNV Potassium Chloride 100 ml @ 50 mls/hr Q2H IV 01/16/25 12:45 01/16/25 18:44 UNV Vancomycin HCl 100 ml @ 100 mls/hr DAILY@1200 IV 01/20/25 12:00 UNV Sodium Chloride 10 ml QSHIFT@10,22 IV 01/26/25 22:00 02/24/25 21:08 10 ML Diagnostic Test (Pha) 1 strip Q6HR 01/31/25 18:00 02/25/25 12:00 1 STRIP Insulin Human Regular FOLLOW SLIDING SCALE Q6HR SC 01/31/25 18:00 02/25/25 05:13 2 UNITS Dextrose 50 ml UD IV 01/31/25 17:00 02/12/25 17:42 50 ML Amino Acids 0 ml @ 0 mls/hr PER PHARMACY IV 02/13/25 10:45 Ondansetron HCl 4 mg Q4HPRN PRN IV 02/21/25 09:30 02/24/25 10:45 4 MG Micafungin Sodium 100 mg/Sodium Chloride 100 ml @ 100 mls/hr DAILY IV 02/22/25 10:00 02/24/25 07:52 100 MLS/HR Ceftriaxone Sodium/Dextrose 50 ml @ 50 mls/hr DAILY@0900 IV 02/22/25 09:00 02/24/25 07:52 50 MLS/HR Trimethoprim/ Sulfamethoxazole 0 ml @ 0 mls/hr PER PHARMACY IV 02/21/25 17:00 Trimethoprim/ Sulfamethoxazole 15 ml/Dextrose 265 ml @ 176.667 mls/hr Q8H IV 02/21/25 20:00 02/25/25 12:00 176.667 MLS/HR Multi-Ingredient Ointment 1 applic DAILY TOP 02/23/25 10:00 02/24/25 07:53 1 APPLIC Hydromorphone HCl 1 mg Q4HPRN PRN IV 02/23/25 13:30 02/25/25 00:18 1 MG Acetaminophen 650 mg Q4HP PRN PO 02/24/25 02:00 Lidocaine 1 patch DAILY@0230 TOP 02/24/25 02:30 02/25/25 01:49 1 PATCH Fat Emulsion Intravenous 150 ml/Sodium Chloride 40 meq/ Potassium Acetate 30 meq/Magnesium Sulfate 2 meq/ Multivitamins 10 ml/Chromium/ Copper/Manganese/ Zinc 1 ml/Insulin Human Regular 3 units/Amino Acids/ Dextrose/Purified Water 1,286.53 ml @ 54 mls/hr [id number] IV 02/24/25 22:00 02/25/25 21:59 02/24/25 21:08 54 MLS/HR Fat Emulsion Intravenous 150 ml/Sodium Chloride 40 meq/ Potassium Chloride 30 meq/ Potassium Phosphate 10 meq/ Magnesium Sulfate 4 meq/ Multivitamins 10 ml/Chromium/ Copper/Manganese/ Zinc 1 ml/Amino Acids/Dextrose/ Purified Water 1,289.2727 ml @ 54 mls/hr [id number] IV 02/25/25 22:00 02/26/25 21:59 Fentanyl Citrate 250 ml @ 2.5 mls/hr Q24H IV 02/25/25 11:30 02/25/25 12:00 2.5 MLS/HR Norepinephrine Bitartrate 250 ml @ 3.75 mls/hr Q24H IV 02/25/25 11:45 02/25/25 11:45 18.75 MLS/HR Phenylephrine HCl 250 ml @ 30 mls/hr Q8H20M IV 02/25/25 11:45 02/25/25 11:45 30 MLS/HR Vasopressin 20 units/Sodium Chloride 100 ml @ 9 mls/hr Q11H7M IV 02/25/25 11:45 02/25/25 13:02 9 MLS/HR Midazolam HCl 50 ml @ 1 mls/hr Q24H IV 02/25/25 11:45 02/25/25 12:15 1 MLS/HR Examination General Appearance: Alert, Oriented X3, Cooperative, No acute distress HEENT: Atraumatic, PERRLA, EOMI, Mucous membrane moist/pink Respiratory: Clear to auscultation, Normal air movement Cardiovascular: Regular rate, Normal S1, Normal S2, No murmurs, no chest wall tenderness Abdominal: Mild abdominal tenderness, with wound VAC at the midline, for CARMEN drain at 4 quadrant, draining brownish fluid Extremities: No clubbing, No cyanosis, No edema, Normal pulses, No tenderness/swelling Skin: No rashes, No breakdown, No significant lesion Neuro: Grossly intact Psych/Mental Status: Mental status NL, Mood NL laboratory and microbiology Laboratory Tests 02/25/25 13:33 Test 02/25/25 13:33 Range/Units Serum Glucose Pending Microbiology Date/Time Source Procedure Growth Status 02/17/25 19:45 Peritoneal Fluid Gram Stain - Final Resulted 02/17/25 19:45 Body Fluid Culture - Preliminary Escherichia coli Stenotrophomonas maltophilia Resulted 02/15/25 10:12 Urine - [place] Urine Culture - Final Yeast, not Zoe albicans Complete 01/29/25 14:00 Sputum Gram Stain - Final Complete 01/29/25 14:00 Respiratory Culture - Final Presumptive Zoe albicans Complete 01/29/25 10:40 Blood Blood Culture - Final NO GROWTH AFTER 5 DAYS OF INCUBATION. Complete 01/13/25 17:10 Nose MRSA Screen - Final Complete Labs and/or images reviewed: Labs reviewed by me, Image(s) reviewed by me Problem List/Assessment/Plan Problem List/Assessment/Plan This is a 80-year-old lady with past medical history of hypertension, AFib (on Eliquis), diabetes type 2, CKD, came to the hospital due to abdominal pain, and constipation. Admitted on 01/13/2025. Found to have peritonitis due to bowel perforation, and underwent emergent laparotomy with subsequent resection of perforated small bowel and enteroenterostomy. Due to abnormal CARMEN drainage, second exploratory laparotomy performed on 02/04 and found to have perforation near to previous perforation area, underwent resection of area with subsequent anastomosis of proximal jejunal loops. Extubated on 02/07. 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 PULMONARY: Acute hypoxic respiratory failure secondary to bilateral pleural effusion/pneumonia Chest x-ray demonstrated bilateral hazy opacities * Sputum culture from 01/29 shows presumptive Zoe albicans * Status post extubation, on nasal cannula * Plan: Physiotherapy GASTROINTESTINAL: Peritonitis due to Perforation of the small bowel, status post exploratory laparotomy Transaminitis secondary to shock Perisplenic abscess * Peritoneal fluid culture from 01/13 shows E coli and Klebsiella pneumoniae sensitive to meropenem (given for 11 days, stopped on 01/31) * CT scan on 01/31 shows, moderate sized fluid collection in the perisplenic region * IR consulted, put pigtail drain, and has drained 50 cc purulent fluid * Patient has brownish discharge of the drain * Small bowel series, normal study * Patient has leakage from surgical area and drainage * Second laparotomy, performed on 02/04, lysis of adhesions, evacuation of pelvic and abdominal infection, resection of proximal jejunum, ileostomy, and jejunostomy and put for CARMEN drains at 4 quadrants * Third laparotomy, performed on 02/25, found a perforation in the distal ileum which was resected and an end-to-end anastomosis was stapled and ileostomy opening was created in the right abdominal wall * Small bowel series on 02/11, normal study, per surgery okay to start clear liquid diet * CT abdominopelvic on 02/16 showed, left abdominal pneumoperitoneum which overall appears similar/slightly more pronounced than on the examination from 01/29/2025, appears to be a small amount of extraluminal contrast,and perisplenic subcapsular collection/subdiaphragmatic collection measuring 7.1 x 1.1 cm * Peritoneal fluid culture 02/17 shows E coli, sensitive to meropenem * 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, [place]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 and contrast leak from distal transverse colon * Plan: IV abx, NPO, TPN, NG tube GENITOURINARY: ISRRA[place] likely due to shock/VMN, resolved * Monitoring ENDOCRINE: History of hypothyroidism Type 2 diabetes mellitus, hemoglobin A1c 8.2 * Few episodes of hypoglycemia * TSH is raised at 16.29, normal free T4 METABOLIC: Hypokalemia Hyperkalemia Hyponatremia, Nephrology recommended D5W at 75 mL/hour Severe metabolic protein malnutrition * Anion gap metabolic acidosis secondary to bowel ischemia leading to lactic acidosis HEME: Acute on chronic anemia secondary to hemodilution/post surgical 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 * 5 unit of PRBC, 2 pt of platelet, has been given INFECTIOUS DISEASE: Sepsis with septic shock secondary to perforation of the small bowel * Blood culture from 01/29 preliminary result shows Gram-positive rods (1/4 sets of blood culture) * Discontinued levofloxacin Flagyl on 02/03 * Discontine vancomycin and meropenem started on 02/03 given up to 02/13 * Discontinue meropenem (02/17 given up to 02/21), and vancomycin (02/17 given up to 02/11) * Peritoneal fluid culture 02/17 shows E coli and Stenotrophmonas maltophilia * Plan: Bactrim (02/21), Rocephin (02/21), and micafungin (02/21) MUSCULOSKELETAL: Rib fracture, due to fall DIET: Clear liquid diet DVT prophylax: Lovenox GI prophylaxis: Pantoprazole Bowel regimen: Code status: Full code LINES/DRAINS/ACCESS: ETT: Intubated on 01/14/25, extubated on 02/07, reintubated on 02/25 IV access: Rt upper thigh PICC placed on 01/26/2025 Drips: off from pressor and sedatives Leach catheter: Placed on 01/14, exchange on 02/14 CARMEN drainage: CARMEN drain DISPOSITION: Continue ICU status Patient's status discussed with patient and patient's son at the bedside. Critical care time spent more than 83 minutes, including patient care, chart review, and updating the family. Excluding any procedures. Case discussed with Dr. Santos Plan discussed with: Other My Orders My Orders Orders - GIGI FELIZ Procedure Category Date Status Time Abg W/ Co-Ox RT 02/25/25 Logged 13:06 Dietary Evaluation Review Comments: Nutrition Recommendation: 1) TPN to meet at least 75% estimated needs within 7 days 2) Monitor NPO status, lab values, wt trend, I/O Expected Outcomes/Goals: To meet >75% estimated needs Lab values to improve Fu 2-3 days Is there a minimum of two crit: Yes CC Plasma Assessment Blood Product Administration S: [id number] GIGI FELIZ Feb 25, 2025 14:20
[2025-02-25] MEDS: SODIUM CHLORIDE 0.9% 1,500 ML IV ONE (14:55)
[2025-02-25 18:50] LABS: Base Excess -19.2 mmol/L (-2.0-3.0)
[2025-02-25] MEDS: SODIUM BICARB 50mEq/50ml Vial 150 ML in D5W 5% 1,000 ML IV SCH (19:15)
[2025-02-25] MEDS ORDERED: SODIUM CHLORIDE 0.9% 1,000 ML IV ONE (19:30)
[2025-02-25] MEDS: SODIUM CHLORIDE 0.9% 1,000 ML IV ONE ×2 (19:42→22:30)
[2025-02-25 20:07] LABS: Anion Gap 18 (5-15); BUN/Creatinine Ratio 21.7 (10.0-20.0); Bilirubin, Total 1.1 mg/dL (0.2-1.0); Chloride 102 mmol/L (98-107); Magnesium 2.0 mg/dL (1.6-2.6)
[2025-02-25 20:12] LABS: Hematocrit 37.8 % (36.0-46.0); Hemoglobin 11.7 g/dL (12.2-16.2); Mean Corpuscular Hemoglobin 29.9 pg (28.0-32.0); Mean Corpuscular Volume 96.4 fL (80.0-100.0)
[2025-02-25 20:14] LABS: Total Cells Counted 100.0 (100)
[2025-02-25 20:29] LABS: Alanine Aminotransferase 197 U/L (7-40); Albumin 1.8 g/dL (3.2-4.8); Alkaline Phosphatase 161 U/L (46-116); Blood Urea Nitrogen 35 mg/dL (9-23); Calcium 7.9 mg/dL (8.7-10.4); Carbon Dioxide 13 mmol/L (20-31); Sodium 133 mmol/L (136-145); Total Protein 4.7 g/dL (5.7-8.2)
[2025-02-25] MEDS: ALBUMIN 25% 100 ML IV ONE (20:30)
[2025-02-25 20:32] LABS: Glucose 478 mg/dL (74-106); Lactic Acid w/Reflex 9.6 mmol/L (0.4-2.0); Potassium 6.0 mmol/L (3.5-5.1)
--- NOTE | 2025-02-25 20:35 | DVHPN2 ---
Progress Note - Dictate Date Seen: Feb 25, 2025 Has the PT tested + for MRSA If YES, has PT been informed?: No Medical Necessity Reason Pt with a Central, PICC or Fol: Yes The following are medically ne: PICC Line, Leach Catheter Reason for leach catheter: Strict I&O Subjective Patient underwent a repeat exploratory laparotomy today Op report was reviewed Patient had right colon resection ileostomy and small-bowel resection She is currently in ICU intubated sedated vital signs Vital Sign Date Time Temp Pulse Resp B/P (MAP) Pulse Ox O2 Delivery O2 Flow Rate FiO2 02/25/25 20:16 134 30 153/76 (101) 92 50 02/25/25 18:30 98.4 209.1 02/25/25 17:36 Mechanical Ventilator+ 02/25/25 06:50 2 Total Intake and Output 02/24/25 02/24/25 02/25/25 15:00 23:00 07:00 Intake Total 758 ml 747 ml 728 ml Output Total 1900 ml 1555 ml Balance 758 ml -1153 ml -827 ml medications Current Medications Medications Dose Ordered Sig/Isaura Route Start Time Stop Time Status Last Admin Dose Admin Cefazolin Sodium 50 ml @ 100 mls/hr Q8HR IV 01/13/25 14:00 UNV Vasopressin 20 units/Sodium Chloride 100 ml @ 9 mls/hr Q11H7M IV 01/13/25 18:45 UNV Potassium Chloride 100 ml @ 50 mls/hr Q2H IV 01/16/25 12:45 01/16/25 18:44 UNV Vancomycin HCl 100 ml @ 100 mls/hr DAILY@1200 IV 01/20/25 12:00 UNV Sodium Chloride 10 ml QSHIFT@10,22 IV 01/26/25 22:00 02/24/25 21:08 10 ML Diagnostic Test (Pha) 1 strip Q6HR 01/31/25 18:00 02/25/25 17:03 1 STRIP Insulin Human Regular FOLLOW SLIDING SCALE Q6HR SC 01/31/25 18:00 02/25/25 17:05 20 UNITS Dextrose 50 ml UD IV 01/31/25 17:00 02/12/25 17:42 50 ML Amino Acids 0 ml @ 0 mls/hr PER PHARMACY IV 02/13/25 10:45 Ondansetron HCl 4 mg Q4HPRN PRN IV 02/21/25 09:30 02/24/25 10:45 4 MG Micafungin Sodium 100 mg/Sodium Chloride 100 ml @ 100 mls/hr DAILY IV 02/22/25 10:00 02/24/25 07:52 100 MLS/HR Trimethoprim/ Sulfamethoxazole 0 ml @ 0 mls/hr PER PHARMACY IV 02/21/25 17:00 Multi-Ingredient Ointment 1 applic DAILY TOP 02/23/25 10:00 02/24/25 07:53 1 APPLIC Hydromorphone HCl 1 mg Q4HPRN PRN IV 02/23/25 13:30 02/25/25 00:18 1 MG Acetaminophen 650 mg Q4HP PRN PO 02/24/25 02:00 Lidocaine 1 patch DAILY@0230 TOP 02/24/25 02:30 02/25/25 01:49 1 PATCH Fat Emulsion Intravenous 150 ml/Sodium Chloride 40 meq/ Potassium Acetate 30 meq/Magnesium Sulfate 2 meq/ Multivitamins 10 ml/Chromium/ Copper/Manganese/ Zinc 1 ml/Insulin Human Regular 3 units/Amino Acids/ Dextrose/Purified Water 1,286.53 ml @ 54 mls/hr [id number] IV 02/24/25 22:00 02/25/25 21:59 02/24/25 21:08 54 MLS/HR Fat Emulsion Intravenous 150 ml/Sodium Chloride 40 meq/ Potassium Chloride 30 meq/ Potassium Phosphate 10 meq/ Magnesium Sulfate 4 meq/ Multivitamins 10 ml/Chromium/ Copper/Manganese/ Zinc 1 ml/Amino Acids/Dextrose/ Purified Water 1,289.2727 ml @ 54 mls/hr [id number] IV 02/25/25 22:00 02/26/25 21:59 Fentanyl Citrate 250 ml @ 2.5 mls/hr Q24H IV 02/25/25 11:30 02/25/25 12:00 2.5 MLS/HR Norepinephrine Bitartrate 250 ml @ 3.75 mls/hr Q24H IV 02/25/25 11:45 02/25/25 11:45 18.75 MLS/HR Phenylephrine HCl 250 ml @ 30 mls/hr Q8H20M IV 02/25/25 11:45 02/25/25 11:45 30 MLS/HR Vasopressin 20 units/Sodium Chloride 100 ml @ 9 mls/hr Q11H7M IV 02/25/25 11:45 02/25/25 13:02 9 MLS/HR Midazolam HCl 50 ml @ 1 mls/hr Q24H IV 02/25/25 11:45 02/25/25 12:15 1 MLS/HR Trimethoprim/ Sulfamethoxazole 8 ml/Dextrose 258 ml @ 172 mls/hr Q8H IV 02/25/25 20:00 02/25/25 20:19 172 MLS/HR Sodium Bicarbonate 150 ml/Dextrose 1,150 ml @ 100 mls/hr [id number] IV 02/25/25 19:15 Meropenem 50 ml @ 17 mls/hr Q12HR@0800,2000 IV 02/26/25 08:00 objective General Appearance: Intubated sedated HEENT: Atraumatic, PERRLA, EOMI, Mucous membrane moist/pink Respiratory: Clear to auscultation, Normal air movement Cardiovascular: Regular rate, Normal S1, Normal S2, No murmurs, no chest wall tenderness Abdominal: Mild abdominal tenderness, with wound VAC at the midline, for CARMEN drain at 4 quadrant, draining serous fluid Extremities: No clubbing, No cyanosis, No edema, Normal pulses, No tenderness/swelling Skin: No rashes, No breakdown, No significant lesion Neuro: Grossly intact Psych/Mental Status: Mental status NL, Mood NL laboratory and microbiology Laboratory Tests 02/25/25 19:39 Test 02/25/25 19:39 Range/Units Serum Glucose Pending Problems(with codes): (1) Ischemic bowel disease (2) Acute renal injury (3) Intestinal perforation Prognosis Plan Keep NPO, NG tube to low intermittent suction IV antibiotics IV TPN Monitor labs Monitor for ileostomy function Prognosis remains guarded Dietary Evaluation Review Comments: Nutrition Recommendation: 1) TPN to meet at least 75% estimated needs within 7 days 2) Monitor NPO status, lab values, wt trend, I/O Expected Outcomes/Goals: To meet >75% estimated needs Lab values to improve Fu 2-3 days Is there a minimum of two crit: Yes Plan discussed with: Other (Dr Christy and Dr Henry Rivera) CC Plasma Assessment Blood Product Administration S: [id number] FRANCISCA RIVERA MD Feb 25, 2025 20:35
[2025-02-25] MEDS: ALBUTEROL SULF 2.5 MG/0.5ML(0.5%) NEB SOLN NEB ONE (20:48)
[2025-02-25] MEDS: InsuLIN REG 1unit/0.01ml Soln (100units/ml) IV ONE (20:57)
[2025-02-25] MEDS: CALCIUM GLUC 1,000mg/50ml-NS 50 ML IV ONE (20:58)
[2025-02-25] MEDS: DEXTROSE (50%) 50ML SYRG IV ONE (21:08)
[2025-02-25] MEDS: MEROPENEM 500MG IVPB 50 ML IV ONE (21:35)
[2025-02-25 22:23] LABS: Base Excess -13.2 mmol/L (-2.0-3.0)
[2025-02-25] MEDS: TPN PER PHARMACY IV NR (23:24)
[2025-02-26] VITALS (110 sets, daily range): BP systolic 84–152; BP diastolic 32–107; PULSE 97–125; RESP 14–30; TEMP 97.5–100.4; O2SAT 81–100
[2025-02-26 04:25] LABS: Hematocrit 27.8 % (36.0-46.0); Hemoglobin 8.7 g/dL (12.2-16.2); Mean Corpuscular Hemoglobin 33.0 pg (28.0-32.0); Mean Corpuscular Volume 105.1 fL (80.0-100.0); Nucleated Red Blood Cells % 0.1 %
[2025-02-26 04:38] LABS: Alkaline Phosphatase 99 U/L (46-116); Anion Gap 14 (5-15); BUN/Creatinine Ratio 18.9 (10.0-20.0); Magnesium 1.7 mg/dL (1.6-2.6)
[2025-02-26 04:39] LABS: Bilirubin, Total 1.2 mg/dL (0.2-1.0)
[2025-02-26 04:54] LABS: Lactic Acid w/Reflex 7.4 mmol/L (0.4-2.0)
--- NOTE | 2025-02-26 05:53 | DVH ---
CHEST RADIOGRAPH Indication: Pneumonia Technique: Single frontal view of the chest was obtained COMPARISON: XY CHEST PORTABLE on DOS: 02/25/25, XY CHEST XRAY 1 VIEW on DOS: 02/22/25, XY CHEST ABDOUL BLE on DOS: 02/17/25, XY CHEST XRAY 1 VIEW on DOS: 02/15/25, XY CHEST XRAY 1 VIEW on DOS: 02/11/25 FINDINGS: Lines and Tubes: Unchanged. Lungs: Stable left basilar pulmonary airspace disease and pleural effusion. No pneumothorax. Cardiomediastinal contours: Unremarkable Bones: Unremarkable IMPRESSION: 1. Stable left basilar pulmonary airspace disease and pleural effusion. 2. Lines and tubes unchanged
[2025-02-26 06:11] LABS: Albumin 1.8 g/dL (3.2-4.8); Blood Urea Nitrogen 34 mg/dL (9-23); Calcium 6.5 mg/dL (8.7-10.4); Carbon Dioxide 17 mmol/L (20-31); Chloride 97 mmol/L (98-107); Sodium 128 mmol/L (136-145); Total Protein 3.8 g/dL (5.7-8.2)
[2025-02-26 06:12] LABS: Potassium 6.9 mmol/L (3.5-5.1)
[2025-02-26 06:13] LABS: Alanine Aminotransferase 1108 U/L (7-40); Glucose 1477 mg/dL (74-106)
[2025-02-26] MEDS: MEROPENEM 1GM IVPB 50 ML IV SCH (07:36)
[2025-02-26 07:45] LABS: Anion Gap 16 (5-15); BUN/Creatinine Ratio 30.0 (10.0-20.0); Carbon Dioxide 24 mmol/L (20-31); Chloride 100 mmol/L (98-107); Potassium 4.5 mmol/L (3.5-5.1); Sodium 140 mmol/L (136-145)
[2025-02-26 08:03] LABS: Alanine Aminotransferase 1651 U/L (7-40); Albumin 2.2 g/dL (3.2-4.8); Alkaline Phosphatase 142 U/L (46-116); Bilirubin, Total 1.7 mg/dL (0.2-1.0); Blood Urea Nitrogen 48 mg/dL (9-23); Calcium 8.0 mg/dL (8.7-10.4); Total Protein 4.7 g/dL (5.7-8.2)
[2025-02-26 08:04] LABS: Glucose 493 mg/dL (74-106)
[2025-02-26 08:37] LABS: Base Excess -1.5 mmol/L (-2.0-3.0)
[2025-02-26] MEDS ORDERED: ACETAMINOPHEN 650 MG RECT SUPP PR PRN (09:00)
[2025-02-26] MEDS: INSULIN LANTUS (GLARGINE) 1 /0.01ml (100units/ml) SC ONE (10:00)
--- NOTE | 2025-02-26 10:16 | DVHPN2 ---
Subjective Date Seen: Feb 26, 2025 Post op day Post op day: 1 Patient reports: Other (intubated , sedated ) Objective Vitals Vital Sign Date Time Temp Pulse Resp B/P (MAP) Pulse Ox O2 Delivery O2 Flow Rate FiO2 02/26/25 10:00 129/55 02/26/25 09:32 30 02/26/25 09:32 119 02/26/25 09:32 30 93 Mechanical Ventilator+ 02/26/25 09:30 100.2 212.4 02/25/25 06:50 2 Total Intake and Output 02/25/25 02/25/25 02/26/25 15:00 23:00 07:00 Intake Total 2111.667 ml 1913.50 ml 2861.00 ml Output Total 950 ml 790 ml Balance 2111.667 ml 963.50 ml 2071.00 ml Medications Current Medications Medications Dose Ordered Sig/Isaura Route Start Time Stop Time Status Last Admin Dose Admin Cefazolin Sodium 50 ml @ 100 mls/hr Q8HR IV 01/13/25 14:00 UNV Vasopressin 20 units/Sodium Chloride 100 ml @ 9 mls/hr Q11H7M IV 01/13/25 18:45 UNV Potassium Chloride 100 ml @ 50 mls/hr Q2H IV 01/16/25 12:45 01/16/25 18:44 UNV Vancomycin HCl 100 ml @ 100 mls/hr DAILY@1200 IV 01/20/25 12:00 UNV Dextrose 50 ml UD IV 01/31/25 17:00 02/12/25 17:42 50 ML Amino Acids 0 ml @ 0 mls/hr PER PHARMACY IV 02/13/25 10:45 Ondansetron HCl 4 mg Q4HPRN PRN IV 02/21/25 09:30 02/24/25 10:45 4 MG Micafungin Sodium 100 mg/Sodium Chloride 100 ml @ 100 mls/hr DAILY IV 02/22/25 10:00 02/26/25 08:12 100 MLS/HR Trimethoprim/ Sulfamethoxazole 0 ml @ 0 mls/hr PER PHARMACY IV 02/21/25 17:00 Multi-Ingredient Ointment 1 applic DAILY TOP 02/23/25 10:00 02/26/25 07:41 1 APPLIC Hydromorphone HCl 1 mg Q4HPRN PRN IV 02/23/25 13:30 02/25/25 00:18 1 MG Acetaminophen 650 mg Q4HP PRN PO 02/24/25 02:00 Lidocaine 1 patch DAILY@0230 TOP 02/24/25 02:30 02/25/25 01:49 1 PATCH Fat Emulsion Intravenous 150 ml/Sodium Chloride 40 meq/ Potassium Chloride 30 meq/ Potassium Phosphate 10 meq/ Magnesium Sulfate 4 meq/ Multivitamins 10 ml/Chromium/ Copper/Manganese/ Zinc 1 ml/Amino Acids/Dextrose/ Purified Water 1,289.2727 ml @ 54 mls/hr [id number] IV 02/25/25 22:00 02/26/25 21:59 02/25/25 23:24 54 MLS/HR Fentanyl Citrate 250 ml @ 2.5 mls/hr Q24H IV 02/25/25 11:30 02/26/25 04:30 17.5 MLS/HR Norepinephrine Bitartrate 250 ml @ 3.75 mls/hr Q24H IV 02/25/25 11:45 02/25/25 22:30 26.25 MLS/HR Phenylephrine HCl 250 ml @ 30 mls/hr Q8H20M IV 02/25/25 11:45 02/25/25 20:46 67.5 MLS/HR Vasopressin 20 units/Sodium Chloride 100 ml @ 9 mls/hr Q11H7M IV 02/25/25 11:45 02/25/25 20:51 3 MLS/HR Midazolam HCl 50 ml @ 1 mls/hr Q24H IV 02/25/25 11:45 02/25/25 20:44 2 MLS/HR Trimethoprim/ Sulfamethoxazole 8 ml/Dextrose 258 ml @ 172 mls/hr Q8H IV 02/25/25 20:00 02/26/25 03:00 172 MLS/HR Meropenem 50 ml @ 17 mls/hr Q12HR@0800,2000 IV 02/26/25 08:00 02/26/25 07:36 17 MLS/HR Acetaminophen 650 mg Q6HP PRN [place] 02/26/25 09:00 Diagnostic Test (Pha) 1 strip Q4HR 02/26/25 12:00 Insulin Human Regular FOLLOW SLIDING SCALE Q4H SC 02/26/25 12:00 Labs and Microbiology Laboratory Tests 02/26/25 07:08 10/18/25 04:00 Test 02/26/25 07:08 Range/Units Serum Glucose 493 *H 74-106 mg/dL Ass/Plan Labs and/or images reviewed: Labs reviewed by me, Image(s) reviewed by me Problem List This is a 80-year-old lady with past medical history of hypertension, AFib (on Eliquis), diabetes type 2, CKD, came to the hospital due to abdominal pain, and constipation. Admitted on 01/13/2025. Found to have peritonitis due to bowel perforation, and underwent emergent laparotomy with subsequent resection of perforated small bowel and enteroenterostomy. Due to abnormal CARMEN drainage, second exploratory laparotomy performed on 02/04 and found to have perforation near to previous perforation area, underwent resection of area with subsequent anastomosis of proximal jejunal loops. Extubated on 02/07. 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 PULMONARY: Acute hypoxic respiratory failure secondary to bilateral pleural effusion/pneumonia Chest x-ray demonstrated bilateral hazy opacities * Sputum culture from 01/29 shows presumptive Zoe albicans * Status post extubation, on nasal cannula * Plan: Physiotherapy GASTROINTESTINAL: Peritonitis due to Perforation of the small bowel, status post exploratory laparotomy Transaminitis secondary to shock Perisplenic abscess * Peritoneal fluid culture from 01/13 shows E coli and Klebsiella pneumoniae sensitive to meropenem (given for 11 days, stopped on 01/31) * CT scan on 01/31 shows, moderate sized fluid collection in the perisplenic region * IR consulted, put pigtail drain, and has drained 50 cc purulent fluid * Patient has brownish discharge of the drain * Small bowel series, normal study * Patient has leakage from surgical area and drainage * Second laparotomy, performed on 02/04, lysis of adhesions, evacuation of pelvic and abdominal infection, resection of proximal jejunum, ileostomy, and jejunostomy and put for CARMEN drains at 4 quadrants * Third laparotomy, performed on 02/25, found a perforation in the distal ileum which was resected and an end-to-end anastomosis was stapled and ileostomy opening was created in the right abdominal wall * Small bowel series on 02/11, normal study, per surgery okay to start clear liquid diet * CT abdominopelvic on 02/16 showed, left abdominal pneumoperitoneum which overall appears similar/slightly more pronounced than on the examination from 01/29/2025, appears to be a small amount of extraluminal contrast,and perisplenic subcapsular collection/subdiaphragmatic collection measuring 7.1 x 1.1 cm * Peritoneal fluid culture 02/17 shows E coli, sensitive to meropenem * 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, [place]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 and contrast leak from distal transverse colon * Plan: IV abx, NPO, TPN, NG tube GENITOURINARY: ISRRAEL likely due to shock/VMN, resolved * Monitoring ENDOCRINE: History of hypothyroidism Type 2 diabetes mellitus, hemoglobin A1c 8.2 * Few episodes of hypoglycemia * TSH is raised at 16.29, normal free T4 METABOLIC: Hypokalemia Hyperkalemia Hyponatremia, Nephrology recommended D5W at 75 mL/hour Severe metabolic protein malnutrition * Anion gap metabolic acidosis secondary to bowel ischemia leading to lactic acidosis HEME: Acute on chronic anemia secondary to hemodilution/post surgical 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 * 5 unit of PRBC, 2 pt of platelet, has been given INFECTIOUS DISEASE: Sepsis with septic shock secondary to perforation of the small bowel * Blood culture from 01/29 preliminary result shows Gram-positive rods (1/4 sets of blood culture) * Discontinued levofloxacin Flagyl on 02/03 * Discontine vancomycin and meropenem started on 02/03 given up to 02/13 * Discontinue meropenem (02/17 given up to 02/21), and vancomycin (02/17 given up to 02/11) * Peritoneal fluid culture 02/17 shows E coli and Stenotrophmonas maltophilia * Plan: Bactrim (02/21), Rocephin (02/21), and micafungin (02/21) MUSCULOSKELETAL: Rib fracture, due to fall DIET: Clear liquid diet DVT prophylax: Lovenox GI prophylaxis: Pantoprazole Bowel regimen: Code status: Full code LINES/DRAINS/ACCESS: ETT: Intubated on 01/14/25, extubated on 02/07, reintubated on 02/25 IV access: Rt upper thigh PICC placed on 01/26/2025 Drips: off from pressor and sedatives Perez catheter: Placed on 01/14, exchange on 02/14 CARMEN drainage: CARMEN drain DISPOSITION: Continue ICU status Patient's status discussed with patient and patient's son at the bedside. Critical care time spent more than 83 minutes, including patient care, chart review, and updating the family. Excluding any procedures. Case discussed with Dr. Santos Assessment/Plan 01/19/25 s/p Exploratory laparotomy, lysis of adhesions, extensive lavage, resection of perforated small bowel, enteroenterostomy. unchanged from yesterday abdomen soft, non distended, CARMEN drainage clear serous, no bowel activity, febrile, urine output ok, continues with thrombocytopenia, Plan: continue current treatment discussed with Dr. Christy 01/21/2025 s/p Exploratory laparotomy, lysis of adhesions, extensive lavage, resection of perforated small bowel, enteroenterostomy. abdomen soft, non distended, CARMEN drainage clear serous, no bowel activity, urine output ok, platelet count improved albumin low off pressors blood culture , gram negative rods Plan: continue meropenem antibiotics albumin x3 discussed with Dr. Christy 01/22/2025 s/p Exploratory laparotomy, lysis of adhesions, extensive lavage, resection of perforated small bowel, enteroenterostomy. abdomen soft, non distended, CARMEN drainage clear serous, no bowel activity, urine output ok, platelet count improved blood culture , gram positive rods labs reviewed Plan: continue with current treatment discussed with Dr. Christy 01/24/2025 s/p Exploratory laparotomy, lysis of adhesions, extensive lavage, resection of perforated small bowel, enteroenterostomy. abdomen soft, non distended, CARMEN drainage clear serous, no bowel activity, urine output ok, platelet count improved labs reviewed Plan: small bowel series discussed with Dr. Christy 01/31/2025 s/p Exploratory laparotomy, lysis of adhesions, extensive lavage, resection of perforated small bowel, enteroenterostomy. abdomen soft, non distended, CARMEN drainage brownish, urine output ok labs reviewed Plan: small bowel series on Friday discussed with Dr. Christy 02/06/2025 Surgery: Exploratory laparotomy, lysis of adhesions, evacuation of pelvic and abdominal infection, resection of proximal jejunum, ileostomy, and jejunostomy. Post-Op Day: 2 Notes and labs were reviewed. Hemoglobin was 6.6 this morning, and a blood transfusion is currently being administered. Physical Exam: - Currently intubated and receiving fentanyl without other sedation. - Abdomen is soft and nondistended. - Minimal serosanguineous fluid is noted in the CARMEN drains. - The wound VAC has minimal sanguineous output. The wound is clean. Plan: - Continue current treatment. - Discussed case with Dr. Christy no changes to the plan of care at this time. 02/26/25 labs reviewed patient intubated , sedated abdomen soft, non distended wound vac stoma ok drain serous fluid Plan: continue current treatment Prognosis: Poor Plan discussed with Dr. Christy Visit Coding Surgery Date of Service if different f: Feb 26, 2025 Billing Provider: MELVA CHRISTY MD Surgery Visit Codes: [id number] INP/OBS CARE(HIGH) CLAYTON POWERS NP Feb 26, 2025 10:16
[2025-02-26 10:37] LABS: INR 1.62 (0.9-1.15); Prothrombin Time 16.4 sec (9.3-11.8)
[2025-02-26] MEDS: ACCU-CHEK COMFORT CURVE STRIP VI SCH ×2 (10:42→15:58)
[2025-02-26] MEDS: InsuLIN REG 1unit/0.01ml Soln (100units/ml) SC SCH ×2 (10:42→16:23)
[2025-02-26] MEDS ORDERED: DEXTROSE (50%) 50ML SYRG IV PRN ×2 (14:15→16:00)
[2025-02-26 15:32] LABS: Base Excess -1.5 mmol/L (-2.0-3.0)
--- NOTE | 2025-02-26 15:35 | DVHPNRES ---
Progress Note Date Seen: Feb 26, 2025 Resident Creating Document: GIGI FELIZ AMBROSE Has the PT tested + for MRSA If YES, has PT been informed?: No Medical Necessity Reason Pt with a Central, PICC or Fol: Yes The following are medically ne: PICC Line, Leach Catheter Reason for leach catheter: Strict I&O Subjective Review of Systems This is a 80-year-old lady with past medical history of hypertension, AFib (on Eliquis), diabetes type 2, CKD, came to the hospital due to abdominal pain, and constipation. Admitted on 01/13/2025. Found to have peritonitis due to bowel perforation, and underwent emergent laparotomy with subsequent resection of perforated small bowel and enteroenterostomy. Due to abnormal CARMEN drainage, second exploratory laparotomy performed on 02/04 and found to have perforation near to previous perforation area, underwent resection of area with subsequent anastomosis of proximal jejunal loops. Seen and examined at the bedside. Patient is receiving back from, intubated and on mechanical ventilation. Objective vital signs Vital Sign Date Time Temp Pulse Resp B/P (MAP) Pulse Ox O2 Delivery O2 Flow Rate FiO2 02/26/25 14:15 116 26 107/46 (66) 98 40 02/26/25 14:00 Mechanical Ventilator+ 02/26/25 14:00 98.4 209.1 02/25/25 06:50 2 Total Intake and Output 02/25/25 02/25/25 02/26/25 15:00 23:00 07:00 Intake Total 2111.667 ml 1913.50 ml 2861.00 ml Output Total 950 ml 790 ml Balance 2111.667 ml 963.50 ml 2071.00 ml medications Current Medications Medications Dose Ordered Sig/Isaura Route Start Time Stop Time Status Last Admin Dose Admin Cefazolin Sodium 50 ml @ 100 mls/hr Q8HR IV 01/13/25 14:00 UNV Vasopressin 20 units/Sodium Chloride 100 ml @ 9 mls/hr Q11H7M IV 01/13/25 18:45 UNV Potassium Chloride 100 ml @ 50 mls/hr Q2H IV 01/16/25 12:45 01/16/25 18:44 UNV Vancomycin HCl 100 ml @ 100 mls/hr DAILY@1200 IV 01/20/25 12:00 UNV Amino Acids 0 ml @ 0 mls/hr PER PHARMACY IV 02/13/25 10:45 Ondansetron HCl 4 mg Q4HPRN PRN IV 02/21/25 09:30 02/24/25 10:45 4 MG Micafungin Sodium 100 mg/Sodium Chloride 100 ml @ 100 mls/hr DAILY IV 02/22/25 10:00 02/26/25 08:12 100 MLS/HR Trimethoprim/ Sulfamethoxazole 0 ml @ 0 mls/hr PER PHARMACY IV 02/21/25 17:00 Multi-Ingredient Ointment 1 applic DAILY TOP 02/23/25 10:00 02/26/25 07:41 1 APPLIC Hydromorphone HCl 1 mg Q4HPRN PRN IV 02/23/25 13:30 02/25/25 00:18 1 MG Acetaminophen 650 mg Q4HP PRN PO 02/24/25 02:00 Lidocaine 1 patch DAILY@0230 TOP 02/24/25 02:30 02/25/25 01:49 1 PATCH Fat Emulsion Intravenous 150 ml/Sodium Chloride 40 meq/ Potassium Chloride 30 meq/ Potassium Phosphate 10 meq/ Magnesium Sulfate 4 meq/ Multivitamins 10 ml/Chromium/ Copper/Manganese/ Zinc 1 ml/Amino Acids/Dextrose/ Purified Water 1,289.2727 ml @ 54 mls/hr [id number] IV 02/25/25 22:00 02/26/25 21:59 02/25/25 23:24 54 MLS/HR Fentanyl Citrate 250 ml @ 2.5 mls/hr Q24H IV 02/25/25 11:30 02/26/25 04:30 17.5 MLS/HR Norepinephrine Bitartrate 250 ml @ 3.75 mls/hr Q24H IV 02/25/25 11:45 02/26/25 11:51 7.5 MLS/HR Phenylephrine HCl 250 ml @ 30 mls/hr Q8H20M IV 02/25/25 11:45 02/25/25 20:46 67.5 MLS/HR Vasopressin 20 units/Sodium Chloride 100 ml @ 9 mls/hr Q11H7M IV 02/25/25 11:45 02/25/25 20:51 3 MLS/HR Midazolam HCl 50 ml @ 1 mls/hr Q24H IV 02/25/25 11:45 02/25/25 20:44 2 MLS/HR Trimethoprim/ Sulfamethoxazole 8 ml/Dextrose 258 ml @ 172 mls/hr Q8H IV 02/25/25 20:00 02/26/25 11:48 172 MLS/HR Meropenem 50 ml @ 17 mls/hr Q12HR@0800,2000 IV 02/26/25 08:00 02/26/25 07:36 17 MLS/HR Acetaminophen 650 mg Q6HP PRN [place] 02/26/25 09:00 Fat Emulsion Intravenous 150 ml/Sodium Chloride 40 meq/ Magnesium Sulfate 8 meq/ Multivitamins 10 ml/Insulin Human Regular 20 units/ Amino Acids/ Dextrose/Purified Water 1,272.2 ml @ 53 mls/hr Q24H1M IV 02/26/25 22:00 02/27/25 21:59 Diagnostic Test (Pha) 1 strip Q4HR 02/26/25 16:00 Cancel Diagnostic Test (Pha) 1 strip IQ4HR 02/26/25 16:00 Insulin Human Regular IQ4HR SC 02/26/25 16:00 Dextrose 50 ml UD PRN IV 02/26/25 14:15 Examination General Appearance: Alert, Oriented X3, Cooperative, No acute distress HEENT: Atraumatic, PERRLA, EOMI, Mucous membrane moist/pink Respiratory: Clear to auscultation, Normal air movement Cardiovascular: Regular rate, Normal S1, Normal S2, No murmurs, no chest wall tenderness Abdominal: Mild abdominal tenderness, with wound VAC at the midline, for CARMEN drain at 4 quadrant, draining brownish fluid Extremities: No clubbing, No cyanosis, No edema, Normal pulses, No tenderness/swelling Skin: No rashes, No breakdown, No significant lesion Neuro: Grossly intact Psych/Mental Status: Mental status NL, Mood NL laboratory and microbiology Laboratory Tests 02/26/25 07:08 02/26/25 04:00 Test 02/26/25 07:08 Range/Units Serum Glucose 493 *H 74-106 mg/dL Microbiology Date/Time Source Procedure Growth Status 02/25/25 11:48 Sputum Gram Stain Pending Resulted 02/25/25 11:48 Sputum Respiratory Culture - Preliminary Resulted 02/17/25 19:45 Peritoneal Fluid Gram Stain - Final Resulted 02/17/25 19:45 Body Fluid Culture - Preliminary Escherichia coli Stenotrophomonas maltophilia Resulted 02/15/25 10:12 Urine - [place] Urine Culture - Final Yeast, not Zoe albicans Complete 01/29/25 10:40 Blood Blood Culture - Final NO GROWTH AFTER 5 DAYS OF INCUBATION. Complete 01/13/25 17:10 Nose MRSA Screen - Final Complete Labs and/or images reviewed: Labs reviewed by me, Image(s) reviewed by me Problem List/Assessment/Plan Problem List/Assessment/Plan This is a 80-year-old lady with past medical history of hypertension, AFib (on Eliquis), diabetes type 2, CKD, came to the hospital due to abdominal pain, and constipation. Admitted on 01/13/2025. Found to have peritonitis due to bowel perforation, and underwent emergent laparotomy with subsequent resection of perforated small bowel and enteroenterostomy. Due to abnormal CARMEN drainage, second exploratory laparotomy performed on 02/04 and found to have perforation near to previous perforation area, underwent resection of area with subsequent anastomosis of proximal jejunal loops. Extubated on 02/07. 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 PULMONARY: Acute hypoxic respiratory failure secondary to bilateral pleural effusion/pneumonia Chest x-ray demonstrated bilateral hazy opacities * Sputum culture from 01/29 shows presumptive Zoe albicans * Status post extubation, on nasal cannula * Physiotherapy GASTROINTESTINAL: Peritonitis due to Perforation of the small bowel, status post exploratory laparotomy Transaminitis secondary to shock Perisplenic abscess * Peritoneal fluid culture from 01/13 shows E coli and Klebsiella pneumoniae sensitive to meropenem (given for 11 days, stopped on 01/31) * CT scan on 01/31 shows, moderate sized fluid collection in the perisplenic region * IR consulted, put pigtail drain, and has drained 50 cc purulent fluid * Patient has brownish discharge of the drain * Small bowel series, normal study * Patient has leakage from surgical area and drainage * Second laparotomy, performed on 02/04, lysis of adhesions, evacuation of pelvic and abdominal infection, resection of proximal jejunum, ileostomy, and jejunostomy and put for CARMEN drains at 4 quadrants * Third laparotomy, performed on 02/25, found a perforation in the distal ileum which was resected and an end-to-end anastomosis was stapled and ileostomy opening was created in the right abdominal wall * Small bowel series on 02/11, normal study, per surgery okay to start clear liquid diet * CT abdominopelvic on 02/16 showed, left abdominal pneumoperitoneum which overall appears similar/slightly more pronounced than on the examination from 01/29/2025, appears to be a small amount of extraluminal contrast,and perisplenic subcapsular collection/subdiaphragmatic collection measuring 7.1 x 1.1 cm * Peritoneal fluid culture 02/17 shows E coli, sensitive to meropenem * 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, [place]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 and contrast leak from distal transverse colon * IV abx, NPO, TPN, NG tube GENITOURINARY: ISRRAEL likely due to shock/VMN ENDOCRINE: History of hypothyroidism Type 2 diabetes mellitus, hemoglobin A1c 8.2 * Few episodes of hypoglycemia * TSH is raised at 16.29, normal free T4 METABOLIC: Hypokalemia Hyperkalemia Hyponatremia, Nephrology recommended D5W at 75 mL/hour Severe metabolic protein malnutrition * Anion gap metabolic acidosis secondary to bowel ischemia leading to lactic acidosis HEME: Acute on chronic anemia secondary to hemodilution/post surgical 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 * 5 unit of PRBC, 2 pt of platelet, has been given INFECTIOUS DISEASE: Sepsis with septic shock secondary to perforation of the small bowel * Blood culture from 01/29 preliminary result shows Gram-positive rods (1/4 sets of blood culture) * Discontinued levofloxacin Flagyl on 02/03 * Discontine vancomycin and meropenem started on 02/03 given up to 02/13 * Discontinue meropenem (02/17 given up to 02/21), and vancomycin (02/17 given up to 02/11) * Peritoneal fluid culture 02/17 shows E coli and Stenotrophmonas maltophilia * Bactrim (02/21), meropenem (02/25) and micafungin (02/21) MUSCULOSKELETAL: Rib fracture, due to fall DIET: Clear liquid diet DVT prophylax: Lovenox GI prophylaxis: Pantoprazole Bowel regimen: Code status: Full code LINES/DRAINS/ACCESS: ETT: Intubated on 01/14/25, extubated on 02/07, reintubated on 02/25 IV access: Rt upper thigh PICC placed on 01/26/2025 Drips: off from pressor and sedatives Leach catheter: Placed on 01/14, exchange on 02/14 CARMEN drainage: CARMEN drain DISPOSITION: Continue ICU status Patient's status discussed with patient and patient's son at the bedside. Critical care time spent more than 83 minutes, including patient care, chart review, and updating the family. Excluding any procedures. Case discussed with Dr. Santos Plan discussed with: Other My Orders My Orders Orders - GIGI FELIZ Procedure Category Date Status Time Sulfameth-Trimeth PHA 02/25/25 In Process 80/16mg-Ml (Bactrim) 20:00 Abg W/ Co-Ox RT 02/25/25 Logged 18:26 Meropenem 1gm Ivpb PHA 02/26/25 In Process (Merrem 1gm/50ml) 08:00 Blood Culture MARIA ISABEL 02/25/25 In Process 21:01 Acetaminophen PHA 02/26/25 In Process Suppository (Tylenol 09:00 Ventilator Orders RT 02/26/25 Transmitted 09:32 Glucose Blood PHA 02/26/25 In Process (Accu-Chek Comfort 16:00 Insulin R (Human) PHA 02/26/25 In Process (Insulin R) 16:00 Dextrose 50% Syringe PHA 02/26/25 In Process 14:15 Dietary Evaluation Review Comments: Nutrition Recommendation: 1) TPN to meet at least 75% estimated needs within 7 days 2) Monitor NPO status, lab values, wt trend, I/O Expected Outcomes/Goals: To meet >75% estimated needs Lab values to improve Fu 2-3 days Is there a minimum of two crit: Yes CC Plasma Assessment Blood Product Administration S: [id number] GIGI FELIZ Feb 26, 2025 15:35
[2025-02-26] MEDS ORDERED: ACCU-CHEK COMFORT CURVE STRIP VI SCH ×2 (16:00)
[2025-02-26] MEDS ORDERED: InsuLIN REG 1unit/0.01ml Soln (100units/ml) SC SCH ×2 (16:00)
[2025-02-26 20:33] LABS: Lactic Acid w/Reflex 4.0 mmol/L (0.4-2.0)
[2025-02-26] MEDS: SODIUM CHLORIDE 0.9% 1,000 ML IV ONE (21:53)
[2025-02-26] MEDS: TPN PER PHARMACY IV NR (22:02)
[2025-02-27] VITALS (111 sets, daily range): BP systolic 73–137; BP diastolic 32–67; PULSE 74–118; RESP 13–28; TEMP 97.5–98.6; O2SAT 90–100
[2025-02-27] MEDS: SODIUM CHLORIDE 0.9% 500 ML IV ONE (00:08)
[2025-02-27 04:42] LABS: Hematocrit 22.7 % (36.0-46.0); Nucleated Red Blood Cells % 0.1 %
[2025-02-27 04:45] LABS: Hemoglobin 7.7 g/dL (12.2-16.2); Mean Corpuscular Hemoglobin 31.5 pg (28.0-32.0); Mean Corpuscular Volume 92.9 fL (80.0-100.0)
[2025-02-27 05:01] LABS: Carbon Dioxide 25 mmol/L (20-31); Chloride 105 mmol/L (98-107)
[2025-02-27 05:02] LABS: Anion Gap 10 (5-15); BUN/Creatinine Ratio 41.9 (10.0-20.0); Magnesium 1.6 mg/dL (1.6-2.6); Potassium 3.7 mmol/L (3.5-5.1); Sodium 140 mmol/L (136-145)
[2025-02-27 05:23] LABS: Alanine Aminotransferase 863 U/L (7-40); Albumin 1.7 g/dL (3.2-4.8); Alkaline Phosphatase 136 U/L (46-116); Bilirubin, Total 1.4 mg/dL (0.2-1.0); Blood Urea Nitrogen 49 mg/dL (9-23); Calcium 8.1 mg/dL (8.7-10.4); Glucose 149 mg/dL (74-106); Total Protein 3.9 g/dL (5.7-8.2)
[2025-02-27 05:33] LABS: Lactic Acid w/Reflex 2.5 mmol/L (0.4-2.0)
--- NOTE | 2025-02-27 05:48 | DVH ---
CHEST RADIOGRAPH Indication: Pneumonia Technique: Single frontal view of the chest was obtained Comparison: XY CHEST XRAY 1 VIEW on DOS: 02/26/25, XY CHEST PORTABLE on DOS: 02/25/25, XY CHEST XRAY 1 VIEW on DOS: 02/22/25 IMPRESSION: Heart appears stable in size. Endotracheal tube and enteric tube appear unchanged in position. There is a small left effusion with possible consolidation or atelectasis of the left lung base. No right e ffusion. No pneumothorax.
[2025-02-27] MEDS: MAGNESIUM SULFATE 1GM/100ML 100 ML IV SCH (06:49)
[2025-02-27 07:37] LABS: Base Excess -1.0 mmol/L (-2.0-3.0)
--- NOTE | 2025-02-27 07:39 | DVHPN2 ---
Progress Note Date Seen: Feb 27, 2025 Has the PT tested + for MRSA If YES, has PT been informed?: No Medical Necessity Reason Pt with a Central, PICC or Fol: Yes The following are medically ne: PICC Line, Leach Catheter Reason for leach catheter: Strict I&O Objective vital signs Vital Sign Date Time Temp Pulse Resp B/P (MAP) Pulse Ox O2 Delivery O2 Flow Rate FiO2 02/27/25 07:00 98.4 111 26 137/64 (88) 96 209.1 02/27/25 06:00 Mechanical Ventilator+ 40 40 Total Intake and Output 02/26/25 02/26/25 02/27/25 15:00 23:00 07:00 Intake Total 1128.50 ml 885.50 ml 817.75 ml Output Total 1405 ml 800 ml Balance 1128.50 ml -519.50 ml 17.75 ml medications Current Medications Medications Dose Ordered Sig/Isaura Route Start Time Stop Time Status Last Admin Dose Admin Cefazolin Sodium 50 ml @ 100 mls/hr Q8HR IV 01/13/25 14:00 UNV Vasopressin 20 units/Sodium Chloride 100 ml @ 9 mls/hr Q11H7M IV 01/13/25 18:45 UNV Potassium Chloride 100 ml @ 50 mls/hr Q2H IV 01/16/25 12:45 01/16/25 18:44 UNV Vancomycin HCl 100 ml @ 100 mls/hr DAILY@1200 IV 01/20/25 12:00 UNV Amino Acids 0 ml @ 0 mls/hr PER PHARMACY IV 02/13/25 10:45 Ondansetron HCl 4 mg Q4HPRN PRN IV 02/21/25 09:30 02/24/25 10:45 4 MG Micafungin Sodium 100 mg/Sodium Chloride 100 ml @ 100 mls/hr DAILY IV 02/22/25 10:00 02/27/25 07:25 100 MLS/HR Trimethoprim/ Sulfamethoxazole 0 ml @ 0 mls/hr PER PHARMACY IV 02/21/25 17:00 Multi-Ingredient Ointment 1 applic DAILY TOP 02/23/25 10:00 02/27/25 07:06 1 APPLIC Hydromorphone HCl 1 mg Q4HPRN PRN IV 02/23/25 13:30 02/25/25 00:18 1 MG Acetaminophen 650 mg Q4HP PRN PO 02/24/25 02:00 Lidocaine 1 patch DAILY@0230 TOP 02/24/25 02:30 02/25/25 01:49 1 PATCH Fentanyl Citrate 250 ml @ 2.5 mls/hr Q24H IV 02/25/25 11:30 02/26/25 21:32 17.5 MLS/HR Norepinephrine Bitartrate 250 ml @ 3.75 mls/hr Q24H IV 02/25/25 11:45 02/26/25 11:51 7.5 MLS/HR Phenylephrine HCl 250 ml @ 30 mls/hr Q8H20M IV 02/25/25 11:45 02/25/25 20:46 67.5 MLS/HR Vasopressin 20 units/Sodium Chloride 100 ml @ 9 mls/hr Q11H7M IV 02/25/25 11:45 02/25/25 20:51 3 MLS/HR Midazolam HCl 50 ml @ 1 mls/hr Q24H IV 02/25/25 11:45 02/25/25 20:44 2 MLS/HR Trimethoprim/ Sulfamethoxazole 8 ml/Dextrose 258 ml @ 172 mls/hr Q8H IV 02/25/25 20:00 02/27/25 04:18 172 MLS/HR Meropenem 50 ml @ 17 mls/hr Q12HR@0800,2000 IV 02/26/25 08:00 02/27/25 07:25 17 MLS/HR Acetaminophen 650 mg Q6HP PRN VT 02/26/25 09:00 Fat Emulsion Intravenous 150 ml/Sodium Chloride 40 meq/ Magnesium Sulfate 8 meq/ Multivitamins 10 ml/Insulin Human Regular 20 units/ Amino Acids/ Dextrose/Purified Water 1,272.2 ml @ 53 mls/hr Q24H1M IV 02/26/25 22:00 02/27/25 21:59 02/26/25 22:02 53 MLS/HR Diagnostic Test (Pha) 1 strip Q4HR 02/26/25 16:00 Cancel Diagnostic Test (Pha) 1 strip IQ4HR 02/26/25 16:00 02/27/25 07:30 1 STRIP Dextrose 50 ml UD PRN IV 02/26/25 14:15 Diagnostic Test (Pha) 1 strip IQ4HR 02/26/25 16:00 UNV Insulin Human Regular IQ4HR SC 02/26/25 16:00 02/27/25 07:36 2 UNITS Dextrose 50 ml UD PRN IV 02/26/25 16:00 UNV Magnesium Sulfate/ Dextrose 100 ml @ 100 mls/hr Q1HR IV 02/27/25 06:00 02/27/25 07:59 02/27/25 07:30 100 MLS/HR laboratory and microbiology Laboratory Tests 02/27/25 04:09 Test 02/27/25 04:09 Range/Units Serum Glucose 149 H 74-106 mg/dL Problem List/Assessment/Plan Problem List/Assessment/Plan 01/14/25 afebrile, low dose BP support, received transfusion, I believe her decreased hematocrit is due to hemodilution. abdomen non distended, soft, wound clean and well approximated, drainage serous . remains intubated and sedated 01/16/25 ALKALOSIS, ABDOMEN NON DISTENDED, SOFT, DRAINAGE SEROUS, WOUND CLEAN AND WELL APPROXIMATED 01/17/25 improved, thrombocytopenia possibly made worse by Fluconazole,will DC, abdomen non distended, wound well approximated without infection, TATY drainage serous, CVP 6, good urine output. 01/18/25 abg reviewed, ,abdomen soft, non distended, TATY drainage clear serous, no bowel activity, febrile, urine output ok, continues with thrombocytopenia,pt and inr slightly elevated. prognosis grave. 01/20/25remains sedated on ventilator, abdomen soft, non distended, faint bowel sounds auscultated by nurse, wound clean and well approximated, TATY drainage clear serous. continues with thrombocytopenia, still behind on intravascular volume( BUN and Creatinine elevated), i would give more IV fluids and DC vancomycin. 01/25/25 afebrile, normotensive, wound clean and well approximated, TATY drainage serous, abdomen non distended, soft, gastrografin small bowel series shows non obstructed GI tract and no evidence of extravasation. It is OK to initiate enteric feedings. 01/29/25 16 DAYS POST OPERATIVELY TRHE TATY DRAINAGE WHICH HAD CONSISTENTLY BEEN SEROUS OR SERO SANGUINEOUS HAS BECOME "DIRTY" BROWNISH DISCOLORATION, HER WOUND IS CLEAN AND WELL APPROXIMATED AND HER ABDOMEN IS SOFT AND NON DISTENDED, CT SCAN SHOWS SO0ME FLUID AND ACCUMULATION OF FLUID AROUND THE SPLEEN, WILL REQUEST CT GUIDED ASPIRATION OF SAME, WILL ORDER IRRIGATION OF DRAINS. SHE SI AFEBRILE AND MAINTAINS NORMAL BLOOD PRESSURE, HER WBC IS NORMAL. 01/30/25 improved, awake, being weaned off vent. abdomen non distended, non tender, taty drainage clearing with irrigation 02/02/25clinically unchanged, gastrografin small bowel series reported and normal, no extravasation reported, will order a follow ujp KUB for tomorrow AM 02/03/25 PATIENT HAD A GASTROGRAFIN SMALL BOWEL SERIES AND A FOLLOW UP KUB X RAYS NEITHER ONE OF WHICH SHOW EXTRAVASATION OF CONTRAST OR EVIDENCE OF FREE CONTRAST IN THE PERITONEAL CAVITY. THERE IS HOWEVER VISCOUS, BROWNISH FLUID DRAINING VIA BOTH TATY DRAINS AND THROUGH INFRAUMBILICAL PORTION OF MIDLINE WOUND, I REMOVED THE RICHIE FROM THE 3 CM SECTION OF THE INFRAUMBILICAL WOUND AND EVACUATED ABOUT 30 CC OF THIS FLUID AND INSTRUCTED THE NURSE TO PLACE A STOMA APPLIANCE ON THIS OPENING. 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 TODAY HER WBC IS ELEVATED, ABDOMEN CONTINUES TO BE NON DISTENDED, SOFT, BUT SHE DOES HAVE SLIGHT TENDERNESS IN THE PERIUMBILICAL AREA. I WILL TREAT THIS EXPECTANTLY FORM THE TIME BEING IN THE HOPE THAT THIS IS A "CONTROLLED" FISTULA AND HOPEFUL WILL HEAL SPONTANEOUSLY WITH NPO AND NUTRITIONAL SUPPORT. WILL WATCH CLOSELY, AFTER A FEW DAYS WILL GET A FISTULOGRAM TO PIN POINT THE ENTERIC ORIGIN OF THE FISTULIZATION. CONTINUE NGT SUCTION AND DRAIN IRRIGATION ORDERED02/05/25 02/05/25 remains sedated and intubated?ventilated, abdomen non distended soft, wound vac in place. TATY drainage serosanguineous 02/08/25 EXTUBATED, GOOD INSPIRATORY EFFORT, BP NML WITHOUT PRESSOR SUPPORT, ABDOMEN SOFT, NON DISTENDED, APPROPRIATELY TENDER, LABS REVIEWED. NO CHANGES TODAY OTHER THAN ALLOW ICE CHIPS PO. WILL ORDER GASTROGRAFIN SMALL BOWEL FOLLOWTHROUGH FOR Friday02/09/25 awake cooperative, wound vac in place, abdomen soft, non distended, appropriately tender, TATY drainage brownish discoloration, will irrigate, her WBC is normal and she is afebrile and normotensive. gastrografin tomorrow 02/10/25 AWAKE,COMFORTABLE, DENIES PAIN, ABDOMEN NON DISTENDED APPROPRIATELY TENDER, WOUND CLEAN AND WELL APPROXIMATED, DRAINS BEING IRRIGATED, LABS OK, GOOD URINE OUTPUT. "SURGICALLY" STABLE 02/11/25 feels well, passing flatus. is hungry, abdomen soft non distended, drainage clearing with irrigation, will wait for Gastrografin small bowel series to be completed, if normal will start po clear liquids 02/12/25 no nausea, change in TATY drainage colort, appears to contaIN, BILE, WILL DC po CLEAR LIQUIDS, CONTINUE ICE CGHIPS, SEND DRAin fluid for amylase and bilirubin, 02/13/25 states she feels well, abdomen non tender, non distended, wound clean and well approximated. drainage slightly clearer, keep npo for now, needs to resume TPN 02/14/25 PATIENT C/O BEING COLD BUT HAS NO PAIN, DRAINAGE SEEMS TO BE CLEARING, SHE HAD A BOWEL MOVEMENTS, ABDOMEN IS SOFT AND NON TENDER, NON DISTENDED, WOUND IS CLEAN AND WELL APPROXIMATED, WILL CONTINUE NPO STATUS AMYLASE ON TATY DRAINAGE FLUID IS GOING TO TAKE SEVERAL DAYS TO BECOME AVAILABLE. CONTINUE TPN 02/16/25 DENIES PAIN,STATES SHE FEELS BETTER, WOUND VAC IN PLACE, ABDOMEN NON TENDER,NON DISTENDED, TATY DRAINAGE SMALL TO MODERATE , WILL CONTINUE IRRIGATING DRAINS, WILL REQUEST GI CONSULT TO CONSIDER ENDOSCOPY. WBC NL,H/H STABLE , ALBUMIN STILL VERY LOW. , 02/17/25 CT SCAN REVIEWED, I SUSPECT THERE IS A SMALL LEAK FROM THE APPEARANCE OF IMAGING ALTHOUGH RADIOLOGIST RECOMMENDED REPEAT CT SCAN (ORDERED). THE DRAINAGE IS SMALL AMOUNT BUT NOW IT IS WITH AN ODOR, I WILL RE INSERT NGT TO ATTEMPT DECREASING THE GASTRIC CONTENTS. ABDOMEN IS SOFT, APPROPRIATELY TENDER, WOUND VAC IN PLACE 02/18/25 AFEBRILE, NORMOTENSIVE4, WBC NL, ALL IMAGING NEGATIVE, ANGIOGRAM SHOWS NO EVIDENCE OF HYPOPERFUSION, CONTRAST AND NON CONTRAST CT SCAN FAILED TO SHOW ANY EVIDENCE OF EXTRAVASATION, THE DRAINAGE CONTINUES TO BE BROWNISH DISCOLORED AND FOULS SMELLING, EXPLAINED TO PT'S SON THAT I HAVE NO EVIDENCE OF ANY GI LEAKAGE, WILL GET A GASTROGRAFIN ENEMA ON FRIDAY, I AM TRYING TO REFRAIN FROM OPERATING ON THE FRAIL ELDERLY PATIENT FOR THE THIRD TIME, SHE WILL NOT TOLERATE ANOTHYER OPERATION WELL. HER ALBUMIN REMAINS VERY LOW.WOUND VAC OK 02/19/25 feels ok,c/o being cold, abdomen soft. non distended, minimally tender, drainage seems to be little less, labs ok, continue as is 02/22/25 she feels well, abdomen is non tender, soft and non distended, drainage slightly less in volume, still discolored,gastrografin enema reviewed by me ( no radiologist/s interpretation available), she has not evacuated the gastrografin according to nurse. 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 will proceed with operation on 02/25/25 at 0715 AM. 02/27/25 SLIGHT IMPROVEMENT, ABDOMEN SOFT, NON DISTENDED, STOMA VIABLE WITHOUT FUNCTION, OK TO TRY GETTING OFF VENTILATOR. Plan discussed with: Other Dietary Evaluation Review Comments: Nutrition Recommendation: 1) TPN to meet at least 75% estimated needs within 7 days 2) Monitor NPO status, lab values, wt trend, I/O Expected Outcomes/Goals: To meet >75% estimated needs Lab values to improve Fu 2-3 days Is there a minimum of two crit: Yes MELVA RAMESH MD Feb 27, 2025 07:39
--- NOTE | 2025-02-27 10:42 | DVHPNRES ---
Progress Note Date Seen: Feb 27, 2025 Resident Creating Document: ANURAG CHERRY RESIDENT Has the PT tested + for MRSA If YES, has PT been informed?: No Medical Necessity Reason Pt with a Central, PICC or Fol: Yes The following are medically ne: PICC Line, Leach Catheter Reason for leach catheter: Strict I&O Subjective Review of Systems This is a 80-year-old lady with past medical history of hypertension, AFib (on Eliquis), diabetes type 2, CKD, came to the hospital due to abdominal pain, and constipation. Admitted on 01/13/2025. Found to have peritonitis due to bowel perforation, and underwent emergent laparotomy with subsequent resection of perforated small bowel and enteroenterostomy. Due to abnormal CARMEN drainage, second exploratory laparotomy performed on 02/04 and found to have perforation near to previous perforation area, underwent resection of area with subsequent anastomosis of proximal jejunal loops. Seen and evaluated in bedside today. Patient currently on ventilator. Surgery on board and recommended try to get off ventilator. Optimizing sedated and trending down. Objective vital signs Vital Sign Date Time Temp Pulse Resp B/P (MAP) Pulse Ox O2 Delivery O2 Flow Rate FiO2 02/27/25 10:00 40 02/27/25 10:00 87 02/27/25 10:00 26 96 Mechanical Ventilator+ 02/27/25 10:00 98.1 118/57 (77) 208.6 Total Intake and Output 02/26/25 02/26/25 02/27/25 15:00 23:00 07:00 Intake Total 1128.50 ml 885.50 ml 899.25 ml Output Total 1405 ml 800 ml Balance 1128.50 ml -519.50 ml 99.25 ml medications Current Medications Medications Dose Ordered Sig/Isaura Route Start Time Stop Time Status Last Admin Dose Admin Cefazolin Sodium 50 ml @ 100 mls/hr Q8HR IV 01/13/25 14:00 UNV Vasopressin 20 units/Sodium Chloride 100 ml @ 9 mls/hr Q11H7M IV 01/13/25 18:45 UNV Potassium Chloride 100 ml @ 50 mls/hr Q2H IV 01/16/25 12:45 01/16/25 18:44 UNV Vancomycin HCl 100 ml @ 100 mls/hr DAILY@1200 IV 01/20/25 12:00 UNV Amino Acids 0 ml @ 0 mls/hr PER PHARMACY IV 02/13/25 10:45 Ondansetron HCl 4 mg Q4HPRN PRN IV 02/21/25 09:30 02/24/25 10:45 4 MG Micafungin Sodium 100 mg/Sodium Chloride 100 ml @ 100 mls/hr DAILY IV 02/22/25 10:00 02/27/25 07:25 100 MLS/HR Trimethoprim/ Sulfamethoxazole 0 ml @ 0 mls/hr PER PHARMACY IV 02/21/25 17:00 Multi-Ingredient Ointment 1 applic DAILY TOP 02/23/25 10:00 02/27/25 07:06 1 APPLIC Hydromorphone HCl 1 mg Q4HPRN PRN IV 02/23/25 13:30 02/25/25 00:18 1 MG Acetaminophen 650 mg Q4HP PRN PO 02/24/25 02:00 Lidocaine 1 patch DAILY@0230 TOP 02/24/25 02:30 02/25/25 01:49 1 PATCH Fentanyl Citrate 250 ml @ 2.5 mls/hr Q24H IV 02/25/25 11:30 02/26/25 21:32 17.5 MLS/HR Norepinephrine Bitartrate 250 ml @ 3.75 mls/hr Q24H IV 02/25/25 11:45 02/26/25 11:51 7.5 MLS/HR Phenylephrine HCl 250 ml @ 30 mls/hr Q8H20M IV 02/25/25 11:45 02/25/25 20:46 67.5 MLS/HR Vasopressin 20 units/Sodium Chloride 100 ml @ 9 mls/hr Q11H7M IV 02/25/25 11:45 02/25/25 20:51 3 MLS/HR Midazolam HCl 50 ml @ 1 mls/hr Q24H IV 02/25/25 11:45 02/25/25 20:44 2 MLS/HR Trimethoprim/ Sulfamethoxazole 8 ml/Dextrose 258 ml @ 172 mls/hr Q8H IV 02/25/25 20:00 02/27/25 04:18 172 MLS/HR Meropenem 50 ml @ 17 mls/hr Q12HR@0800,2000 IV 02/26/25 08:00 02/27/25 07:25 17 MLS/HR Acetaminophen 650 mg Q6HP PRN PA 02/26/25 09:00 Fat Emulsion Intravenous 150 ml/Sodium Chloride 40 meq/ Magnesium Sulfate 8 meq/ Multivitamins 10 ml/Insulin Human Regular 20 units/ Amino Acids/ Dextrose/Purified Water 1,272.2 ml @ 53 mls/hr Q24H1M IV 02/26/25 22:00 02/27/25 21:59 02/26/25 22:02 53 MLS/HR Diagnostic Test (Pha) 1 strip Q4HR 02/26/25 16:00 Cancel Diagnostic Test (Pha) 1 strip IQ4HR 02/26/25 16:00 02/27/25 07:30 1 STRIP Dextrose 50 ml UD PRN IV 02/26/25 14:15 Diagnostic Test (Pha) 1 strip IQ4HR 02/26/25 16:00 UNV Insulin Human Regular IQ4HR SC 02/26/25 16:00 02/27/25 07:36 2 UNITS Dextrose 50 ml UD PRN IV 02/26/25 16:00 UNV Examination General Appearance: Currently on ventilator HEENT: Atraumatic, PERRLA, EOMI, Mucous membrane moist/pink Respiratory: Bilateral air entry both lung normal, Normal air movement Cardiovascular: Regular rate, Normal S1, Normal S2, No murmurs, no chest wall tenderness Abdominal: Abdomen is soft, bowel sounds present, cholesterol bag in place and CARMEN drain Extremities: No clubbing, No cyanosis, No edema, Normal pulses, No tenderness/swelling Skin: No rashes, No breakdown, No significant lesion Neuro: Grossly intact laboratory and microbiology Laboratory Tests 02/27/25 04:09 Test 02/27/25 04:09 Range/Units Serum Glucose 149 H 74-106 mg/dL Microbiology Date/Time Source Procedure Growth Status 02/25/25 21:39 Blood Blood Culture - Preliminary NO GROWTH AFTER 24 HOURS OF INCUBATION. Resulted 02/25/25 11:48 Sputum Gram Stain Pending Resulted 02/25/25 11:48 Sputum Respiratory Culture - Preliminary Resulted 02/17/25 19:45 Peritoneal Fluid Gram Stain - Final Resulted 02/17/25 19:45 Body Fluid Culture - Preliminary Escherichia coli Stenotrophomonas maltophilia Resulted 02/15/25 10:12 Urine - [place] Urine Culture - Final Yeast, not Zoe albicans Complete 01/13/25 17:10 Nose MRSA Screen - Final Complete Problem List/Assessment/Plan Problem List/Assessment/Plan This is a 80-year-old lady with past medical history of hypertension, AFib (on Eliquis), diabetes type 2, CKD, came to the hospital due to abdominal pain, and constipation. Admitted on 01/13/2025. Found to have peritonitis due to bowel perforation, and underwent emergent laparotomy with subsequent resection of perforated small bowel and enteroenterostomy. Due to abnormal CARMEN drainage, second exploratory laparotomy performed on 02/04 and found to have perforation near to previous perforation area, underwent resection of area with subsequent anastomosis of proximal jejunal loops. Extubated on 02/07. Patient intubated on 02/25/2025 during surgery. 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 PULMONARY: Acute hypoxic respiratory failure secondary to bilateral pleural effusion/pneumonia Chest x-ray demonstrated bilateral hazy opacities * Sputum culture from 01/29 shows presumptive Zoe albicans * Re-intubation on 02/25/2025 * Physiotherapy * CPAP trial tomorrow. GASTROINTESTINAL: Peritonitis due to Perforation of the small bowel, status post exploratory laparotomy Transaminitis secondary to shock Perisplenic abscess * Peritoneal fluid culture from 01/13 shows E coli and Klebsiella pneumoniae sensitive to meropenem (given for 11 days, stopped on 01/31) * CT scan on 01/31 shows, moderate sized fluid collection in the perisplenic region * IR consulted, put pigtail drain, and has drained 50 cc purulent fluid * Patient has brownish discharge of the drain * Small bowel series, normal study * Patient has leakage from surgical area and drainage * Second laparotomy, performed on 02/04, lysis of adhesions, evacuation of pelvic and abdominal infection, resection of proximal jejunum, ileostomy, and jejunostomy and put for CARMEN drains at 4 quadrants * Third laparotomy, performed on 02/25, found a perforation in the distal ileum which was resected and an end-to-end anastomosis was stapled and ileostomy opening was created in the right abdominal wall * Small bowel series on 02/11, normal study, per surgery okay to start clear liquid diet * CT abdominopelvic on 02/16 showed, left abdominal pneumoperitoneum which overall appears similar/slightly more pronounced than on the examination from 01/29/2025, appears to be a small amount of extraluminal contrast,and perisplenic subcapsular collection/subdiaphragmatic collection measuring 7.1 x 1.1 cm * Peritoneal fluid culture 02/17 shows E coli, sensitive to meropenem * 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, [place]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 and contrast leak from distal transverse colon * IV abx, NPO, TPN, NG tube GENITOURINARY: ISRRAEL likely due to shock/VMN * Nephrology consult for ISRRAEL. 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 * 5 unit of PRBC, 2 pt of platelet, has been given INFECTIOUS DISEASE: Sepsis with septic shock secondary to perforation of the small bowel * Blood culture from 01/29 preliminary result shows Gram-positive rods (1/4 sets of blood culture) * Discontinued levofloxacin Flagyl on 02/03 * Discontine vancomycin and meropenem started on 02/03 given up to 02/13 * Discontinue meropenem (02/17 given up to 02/21), and vancomycin (02/17 given up to 02/11) * Peritoneal fluid culture 02/17 shows E coli and Stenotrophmonas maltophilia * Bactrim (02/21), meropenem (02/25) and micafungin (02/21) MUSCULOSKELETAL: Rib fracture, due to fall DIET: TPN DVT prophylax: Lovenox GI prophylaxis: Pantoprazole Bowel regimen: As needed Code status: Full code LINES/DRAINS/ACCESS: ETT: Intubated on 01/14/25, extubated on 02/07, reintubated on 02/25 IV access: Rt upper thigh PICC placed on 01/26/2025 Drips: off from pressor and sedatives Leach catheter: Placed on 01/14, exchange on 02/14 CARMEN drainage: CARMEN drain DISPOSITION: Continue ICU status Patient's status discussed with patient and patient's son (Chris) at the bedside. Discussed management plan verbally agree vertebral discussed. As per surgery, tried to off ventilator. Critical care time spent more than 87 minutes, including patient care, chart review, and updating the family. Excluding any procedures. Case discussed with Dr. Santos Plan discussed with: Son (Chris), Other (Nurse) Dietary Evaluation Review Comments: Nutrition Recommendation: 1) TPN to meet at least 75% estimated needs within 7 days 2) Monitor NPO status, lab values, wt trend, I/O Expected Outcomes/Goals: To meet >75% estimated needs Lab values to improve Fu 2-3 days Is there a minimum of two crit: Yes CC Plasma Assessment Blood Product Administration S: [id number] ANURAG CHERRY RESIDENT Feb 27, 2025 10:42
[2025-02-27] MEDS ORDERED: ROCURONIUM 10MG/ML 10ML VIAL IV ONE (12:36)
[2025-02-27] MEDS ORDERED: ONDANSETRON HCL 4 MG/2 ML VIAL IV ONE (12:38)
[2025-02-27] MEDS: SODIUM PHOSPHATES 20 MEQ in SODIUM CHL 0.9% 100 ML IV ONE (14:28)
--- NOTE | 2025-02-27 15:53 | DVHPN2 ---
Progress Note - Dictate Date Seen: Feb 27, 2025 Has the PT tested + for MRSA If YES, has PT been informed?: No Medical Necessity Reason Pt with a Central, PICC or Fol: Yes The following are medically ne: PICC Line, Leach Catheter Reason for leach catheter: Strict I&O Subjective Asked to reconsult for evaluation and management of azotemia, possible recurrent acute kidney injury. 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 vital signs Vital Sign Date Time Temp Pulse Resp B/P (MAP) Pulse Ox O2 Delivery O2 Flow Rate FiO2 02/27/25 13:56 87 21 96/42 (60) 96 30 02/27/25 13:37 Mechanical Ventilator+ 02/27/25 13:30 97.9 208.2 Total Intake and Output 02/26/25 02/26/25 02/27/25 14:59 22:59 06:59 Intake Total 1245.50 ml 881.50 ml 894.50 ml Output Total 1405 ml 800 ml Balance 1245.50 ml -523.50 ml 94.50 ml medications Current Medications Medications Dose Ordered Sig/Isaura Route Start Time Stop Time Status Last Admin Dose Admin Cefazolin Sodium 50 ml @ 100 mls/hr Q8HR IV 01/13/25 14:00 UNV Vasopressin 20 units/Sodium Chloride 100 ml @ 9 mls/hr Q11H7M IV 01/13/25 18:45 UNV Potassium Chloride 100 ml @ 50 mls/hr Q2H IV 01/16/25 12:45 01/16/25 18:44 UNV Vancomycin HCl 100 ml @ 100 mls/hr DAILY@1200 IV 01/20/25 12:00 UNV Amino Acids 0 ml @ 0 mls/hr PER PHARMACY IV 02/13/25 10:45 Ondansetron HCl 4 mg Q4HPRN PRN IV 02/21/25 09:30 02/24/25 10:45 4 MG Micafungin Sodium 100 mg/Sodium Chloride 100 ml @ 100 mls/hr DAILY IV 02/22/25 10:00 02/27/25 07:25 100 MLS/HR Trimethoprim/ Sulfamethoxazole 0 ml @ 0 mls/hr PER PHARMACY IV 02/21/25 17:00 Multi-Ingredient Ointment 1 applic DAILY TOP 02/23/25 10:00 02/27/25 07:06 1 APPLIC Hydromorphone HCl 1 mg Q4HPRN PRN IV 02/23/25 13:30 02/25/25 00:18 1 MG Acetaminophen 650 mg Q4HP PRN PO 02/24/25 02:00 Lidocaine 1 patch DAILY@0230 TOP 02/24/25 02:30 02/25/25 01:49 1 PATCH Fentanyl Citrate 250 ml @ 2.5 mls/hr Q24H IV 02/25/25 11:30 02/27/25 11:27 15 MLS/HR Norepinephrine Bitartrate 250 ml @ 3.75 mls/hr Q24H IV 02/25/25 11:45 02/26/25 11:51 7.5 MLS/HR Phenylephrine HCl 250 ml @ 30 mls/hr Q8H20M IV 02/25/25 11:45 02/25/25 20:46 67.5 MLS/HR Vasopressin 20 units/Sodium Chloride 100 ml @ 9 mls/hr Q11H7M IV 02/25/25 11:45 02/25/25 20:51 3 MLS/HR Midazolam HCl 50 ml @ 1 mls/hr Q24H IV 02/25/25 11:45 02/25/25 20:44 2 MLS/HR Trimethoprim/ Sulfamethoxazole 8 ml/Dextrose 258 ml @ 172 mls/hr Q8H IV 02/25/25 20:00 02/27/25 11:54 172 MLS/HR Meropenem 50 ml @ 17 mls/hr Q12HR@0800,2000 IV 02/26/25 08:00 02/27/25 07:25 17 MLS/HR Acetaminophen 650 mg Q6HP PRN [place] 02/26/25 09:00 Fat Emulsion Intravenous 150 ml/Sodium Chloride 40 meq/ Magnesium Sulfate 8 meq/ Multivitamins 10 ml/Insulin Human Regular 20 units/ Amino Acids/ Dextrose/Purified Water 1,272.2 ml @ 53 mls/hr Q24H1M IV 02/26/25 22:00 02/27/25 21:59 02/26/25 22:02 53 MLS/HR Diagnostic Test (Pha) 1 strip Q4HR 02/26/25 16:00 Cancel Diagnostic Test (Pha) 1 strip IQ4HR 02/26/25 16:00 02/27/25 10:56 1 STRIP Dextrose 50 ml UD PRN IV 02/26/25 14:15 Diagnostic Test (Pha) 1 strip IQ4HR 02/26/25 16:00 UNV Insulin Human Regular IQ4HR SC 02/26/25 16:00 02/27/25 10:57 2 UNITS Dextrose 50 ml UD PRN IV 02/26/25 16:00 UNV Fat Emulsion Intravenous 150 ml/Sodium Chloride 40 meq/ Magnesium Sulfate 12 meq/ Multivitamins 10 ml/Insulin Human Regular 10 units/ Amino Acids/ Dextrose/Purified Water 1,173.1 ml @ 49 mls/hr [id number] IV 02/27/25 22:00 02/28/25 21:59 objective Gen: Ill-appearing, intubated lungs: Occasional rhonchi cvs: no rub abd:+ ostomy noted ext: no edema laboratory and microbiology Laboratory Tests 02/27/25 04:09 Test 02/27/25 04:09 Range/Units Serum Glucose 149 H 74-106 mg/dL Assessment/Plan Acute kidney injury superimposed Chronic Kidney Disease secondary hemodynamic mediated Acute respiratory failure, patient intubated on ventilator Acute perforation of the abdomen / bowel ischemia s/p exlap, now status post ostomy placement History of atrial fibrillation previously on anticoagulation 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 , RA + Diabetes mellitus type 2 Hypophosphatemia /hyperkalemia-----> hypokalemia Anemia due to blood loss - we will repeat UA, urine sodium, urine creatinine, calculate FeNa - even fluid balance as cardiopulmonary status permits - use of loop diuretic on an as-needed basis - we will continue to follow closely with you. Dietary Evaluation Review Comments: Nutrition Recommendation: 1) TPN to meet at least 75% estimated needs within 7 days 2) Monitor NPO status, lab values, wt trend, I/O Expected Outcomes/Goals: To meet >75% estimated needs Lab values to improve Fu 2-3 days Is there a minimum of two crit: Yes Plan discussed with: Other CC Plasma Assessment Blood Product Administration S: [id number] ELIDA BAKER MD Feb 27, 2025 15:53
[2025-02-27] MEDS: TPN PER PHARMACY IV NR (22:10)
[2025-02-27] MEDS: DEXMEDETOMIDINE HCL IN D5W 100 ML IV SCH (22:26)
[2025-02-28] VITALS (105 sets, daily range): BP systolic 74–165; BP diastolic 24–84; PULSE 57–115; RESP 12–27; TEMP 96.6–99; O2SAT 87–100
[2025-02-28 04:22] LABS: Hematocrit 20.3 % (36.0-46.0); Mean Corpuscular Hemoglobin 30.6 pg (28.0-32.0); Mean Corpuscular Volume 90.1 fL (80.0-100.0); Nucleated Red Blood Cells % 0.0 %
[2025-02-28 04:26] LABS: Hemoglobin 6.9 g/dL (12.2-16.2)
--- NOTE | 2025-02-28 04:32 | DVH ---
CHEST RADIOGRAPH Indication: Position of ET tube in compared previous x-ray Technique: Single frontal view of the chest was obtained COMPARISON: XY CHEST XRAY 1 VIEW on DOS: 02/27/25, XY CHEST XRAY 1 VIEW on DOS: 02/26/25, XY CHEST PO RTABLE on DOS: 02/25/25, XY CHEST XRAY 1 VIEW on DOS: 02/22/25, XY CHEST PORTABLE on DOS: 02/17/25 FINDINGS: Lines and Tubes: Unchanged. Endotracheal tube tip projects approximately 3.2 cm above the level of t he vijay. Lungs: Accounting for differences in positioning and technique, stable appearing left pleural effusio n and basilar pulmonary airspace disease. No pneumothorax. Cardiomediastinal contours: Unremarkable Bones: Unremarkable IMPRESSION: 1. Stable left pleural effusion and basilar pulmonary airspace disease. 2. Lines and tubes unchanged.
[2025-02-28 04:47] LABS: Anion Gap 10 (5-15); BUN/Creatinine Ratio 41.3 (10.0-20.0); Carbon Dioxide 26 mmol/L (20-31); Chloride 100 mmol/L (98-107); Sodium 136 mmol/L (136-145)
[2025-02-28 04:49] LABS: Magnesium 2.1 mg/dL (1.6-2.6)
[2025-02-28 05:10] LABS: Alanine Aminotransferase 590 U/L (7-40); Albumin 1.9 g/dL (3.2-4.8); Alkaline Phosphatase 181 U/L (46-116); Bilirubin, Total 1.5 mg/dL (0.2-1.0); Blood Urea Nitrogen 45 mg/dL (9-23); Calcium 7.8 mg/dL (8.7-10.4); Glucose 160 mg/dL (74-106); Potassium 3.3 mmol/L (3.5-5.1); Total Protein 4.3 g/dL (5.7-8.2)
[2025-02-28] MEDS: POTASSIUM CHL 20MEQ/100ML 100 ML IV SCH (05:54)
[2025-02-28 07:41] LABS: Base Excess 1.8 mmol/L (-2.0-3.0)
--- NOTE | 2025-02-28 09:27 | DVHPN2 ---
Subjective Date Seen: Feb 28, 2025 Post op day Post op day: 3 Patient reports: Other (intubated , sedated ) Objective Vitals Vital Sign Date Time Temp Pulse Resp B/P (MAP) Pulse Ox O2 Delivery O2 Flow Rate FiO2 02/28/25 09:23 97.7 76 12 104/55 97.7 02/28/25 09:10 97 30 02/28/25 06:00 Mechanical Ventilator+ Total Intake and Output 02/27/25 02/27/25 02/28/25 15:00 23:00 07:00 Intake Total 941.00 ml 669.30 ml 817.45 ml Output Total 1020 ml 990 ml Balance 941.00 ml -350.70 ml -172.55 ml Medications Current Medications Medications Dose Ordered Sig/Isaura Route Start Time Stop Time Status Last Admin Dose Admin Cefazolin Sodium 50 ml @ 100 mls/hr Q8HR IV 01/13/25 14:00 UNV Vasopressin 20 units/Sodium Chloride 100 ml @ 9 mls/hr Q11H7M IV 01/13/25 18:45 UNV Potassium Chloride 100 ml @ 50 mls/hr Q2H IV 01/16/25 12:45 01/16/25 18:44 UNV Vancomycin HCl 100 ml @ 100 mls/hr DAILY@1200 IV 01/20/25 12:00 UNV Amino Acids 0 ml @ 0 mls/hr PER PHARMACY IV 02/13/25 10:45 Ondansetron HCl 4 mg Q4HPRN PRN IV 02/21/25 09:30 02/24/25 10:45 4 MG Micafungin Sodium 100 mg/Sodium Chloride 100 ml @ 100 mls/hr DAILY IV 02/22/25 10:00 02/27/25 07:25 100 MLS/HR Trimethoprim/ Sulfamethoxazole 0 ml @ 0 mls/hr PER PHARMACY IV 02/21/25 17:00 Multi-Ingredient Ointment 1 applic DAILY TOP 02/23/25 10:00 02/27/25 07:06 1 APPLIC Hydromorphone HCl 1 mg Q4HPRN PRN IV 02/23/25 13:30 02/25/25 00:18 1 MG Acetaminophen 650 mg Q4HP PRN PO 02/24/25 02:00 Lidocaine 1 patch DAILY@0230 TOP 02/24/25 02:30 02/25/25 01:49 1 PATCH Fentanyl Citrate 250 ml @ 2.5 mls/hr Q24H IV 02/25/25 11:30 02/27/25 11:27 15 MLS/HR Norepinephrine Bitartrate 250 ml @ 3.75 mls/hr Q24H IV 02/25/25 11:45 02/26/25 11:51 7.5 MLS/HR Phenylephrine HCl 250 ml @ 30 mls/hr Q8H20M IV 02/25/25 11:45 02/25/25 20:46 67.5 MLS/HR Vasopressin 20 units/Sodium Chloride 100 ml @ 9 mls/hr Q11H7M IV 02/25/25 11:45 02/25/25 20:51 3 MLS/HR Midazolam HCl 50 ml @ 1 mls/hr Q24H IV 02/25/25 11:45 02/25/25 20:44 2 MLS/HR Trimethoprim/ Sulfamethoxazole 8 ml/Dextrose 258 ml @ 172 mls/hr Q8H IV 02/25/25 20:00 02/28/25 04:01 172 MLS/HR Meropenem 50 ml @ 17 mls/hr Q12HR@0800,2000 IV 02/26/25 08:00 02/28/25 08:25 17 MLS/HR Acetaminophen 650 mg Q6HP PRN [place] 02/26/25 09:00 Diagnostic Test (Pha) 1 strip Q4HR 02/26/25 16:00 Cancel Diagnostic Test (Pha) 1 strip IQ4HR 02/26/25 16:00 02/28/25 08:25 1 STRIP Dextrose 50 ml UD PRN IV 02/26/25 14:15 Diagnostic Test (Pha) 1 strip IQ4HR 02/26/25 16:00 UNV Insulin Human Regular IQ4HR SC 02/26/25 16:00 02/28/25 04:21 2 UNITS Dextrose 50 ml UD PRN IV 02/26/25 16:00 UNV Fat Emulsion Intravenous 150 ml/Sodium Chloride 40 meq/ Magnesium Sulfate 12 meq/ Multivitamins 10 ml/Insulin Human Regular 10 units/ Amino Acids/ Dextrose/Purified Water 1,173.1 ml @ 49 mls/hr [id number] IV 02/27/25 22:00 02/28/25 21:59 02/27/25 22:10 49 MLS/HR Potassium Chloride 100 ml @ 50 mls/hr Q2H IV 02/28/25 05:30 02/28/25 09:29 02/28/25 07:55 50 MLS/HR Fat Emulsion Intravenous 150 ml/Sodium Chloride 40 meq/ Magnesium Sulfate 2 meq/ Multivitamins 10 ml/Chromium/ Copper/Manganese/ Zinc 1 ml/Insulin Human Regular 10 units/Amino Acids/ Dextrose/Purified Water 1,171.6 ml @ 49 mls/hr [id number] IV 02/28/25 22:00 03/01/25 21:59 Labs and Microbiology Laboratory Tests 02/28/25 03:50 Test 02/28/25 03:50 Range/Units Serum Glucose 160 H 74-106 mg/dL Ass/Plan Labs and/or images reviewed: Labs reviewed by me, Image(s) reviewed by me Problem List This is a 80-year-old lady with past medical history of hypertension, AFib (on Eliquis), diabetes type 2, CKD, came to the hospital due to abdominal pain, and constipation. Admitted on 01/13/2025. Found to have peritonitis due to bowel perforation, and underwent emergent laparotomy with subsequent resection of perforated small bowel and enteroenterostomy. Due to abnormal CARMEN drainage, second exploratory laparotomy performed on 02/04 and found to have perforation near to previous perforation area, underwent resection of area with subsequent anastomosis of proximal jejunal loops. Extubated on 02/07. Patient intubated on 02/25/2025 during surgery. 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 PULMONARY: Acute hypoxic respiratory failure secondary to bilateral pleural effusion/pneumonia Chest x-ray demonstrated bilateral hazy opacities * Sputum culture from 01/29 shows presumptive Zoe albicans * Re-intubation on 02/25/2025 * Physiotherapy * CPAP trial tomorrow. GASTROINTESTINAL: Peritonitis due to Perforation of the small bowel, status post exploratory laparotomy Transaminitis secondary to shock Perisplenic abscess * Peritoneal fluid culture from 01/13 shows E coli and Klebsiella pneumoniae sensitive to meropenem (given for 11 days, stopped on 01/31) * CT scan on 01/31 shows, moderate sized fluid collection in the perisplenic region * IR consulted, put pigtail drain, and has drained 50 cc purulent fluid * Patient has brownish discharge of the drain * Small bowel series, normal study * Patient has leakage from surgical area and drainage * Second laparotomy, performed on 02/04, lysis of adhesions, evacuation of pelvic and abdominal infection, resection of proximal jejunum, ileostomy, and jejunostomy and put for CARMEN drains at 4 quadrants * Third laparotomy, performed on 02/25, found a perforation in the distal ileum which was resected and an end-to-end anastomosis was stapled and ileostomy opening was created in the right abdominal wall * Small bowel series on 02/11, normal study, per surgery okay to start clear liquid diet * CT abdominopelvic on 02/16 showed, left abdominal pneumoperitoneum which overall appears similar/slightly more pronounced than on the examination from 01/29/2025, appears to be a small amount of extraluminal contrast,and perisplenic subcapsular collection/subdiaphragmatic collection measuring 7.1 x 1.1 cm * Peritoneal fluid culture 02/17 shows E coli, sensitive to meropenem * 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, [place]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 and contrast leak from distal transverse colon * IV abx, NPO, TPN, NG tube GENITOURINARY: ISRRAEL likely due to shock/VMN * Nephrology consult for ISRRAEL. 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 * 5 unit of PRBC, 2 pt of platelet, has been given INFECTIOUS DISEASE: Sepsis with septic shock secondary to perforation of the small bowel * Blood culture from 01/29 preliminary result shows Gram-positive rods (1/4 sets of blood culture) * Discontinued levofloxacin Flagyl on 02/03 * Discontine vancomycin and meropenem started on 02/03 given up to 02/13 * Discontinue meropenem (02/17 given up to 02/21), and vancomycin (02/17 given up to 02/11) * Peritoneal fluid culture 02/17 shows E coli and Stenotrophmonas maltophilia * Bactrim (02/21), meropenem (02/25) and micafungin (02/21) MUSCULOSKELETAL: Rib fracture, due to fall DIET: TPN DVT prophylax: Lovenox GI prophylaxis: Pantoprazole Bowel regimen: As needed Code status: Full code LINES/DRAINS/ACCESS: ETT: Intubated on 01/14/25, extubated on 02/07, reintubated on 02/25 IV access: Rt upper thigh PICC placed on 01/26/2025 Drips: off from pressor and sedatives Perez catheter: Placed on 01/14, exchange on 02/14 CARMEN drainage: CARMEN drain DISPOSITION: Continue ICU status Patient's status discussed with patient and patient's son (Chris) at the bedside. Discussed management plan verbally agree vertebral discussed. As per surgery, tried to off ventilator. Critical care time spent more than 87 minutes, including patient care, chart review, and updating the family. Excluding any procedures. Case discussed with Dr. Santos Assessment/Plan 01/19/25 s/p Exploratory laparotomy, lysis of adhesions, extensive lavage, resection of perforated small bowel, enteroenterostomy. unchanged from yesterday abdomen soft, non distended, CARMEN drainage clear serous, no bowel activity, febrile, urine output ok, continues with thrombocytopenia, Plan: continue current treatment discussed with Dr. Christy 01/21/2025 s/p Exploratory laparotomy, lysis of adhesions, extensive lavage, resection of perforated small bowel, enteroenterostomy. abdomen soft, non distended, CARMEN drainage clear serous, no bowel activity, urine output ok, platelet count improved albumin low off pressors blood culture , gram negative rods Plan: continue meropenem antibiotics albumin x3 discussed with Dr. Christy 01/22/2025 s/p Exploratory laparotomy, lysis of adhesions, extensive lavage, resection of perforated small bowel, enteroenterostomy. abdomen soft, non distended, CARMEN drainage clear serous, no bowel activity, urine output ok, platelet count improved blood culture , gram positive rods labs reviewed Plan: continue with current treatment discussed with Dr. Christy 01/24/2025 s/p Exploratory laparotomy, lysis of adhesions, extensive lavage, resection of perforated small bowel, enteroenterostomy. abdomen soft, non distended, CARMEN drainage clear serous, no bowel activity, urine output ok, platelet count improved labs reviewed Plan: small bowel series discussed with Dr. Christy 01/31/2025 s/p Exploratory laparotomy, lysis of adhesions, extensive lavage, resection of perforated small bowel, enteroenterostomy. abdomen soft, non distended, CARMEN drainage brownish, urine output ok labs reviewed Plan: small bowel series on Friday discussed with Dr. Christy 02/06/2025 Surgery: Exploratory laparotomy, lysis of adhesions, evacuation of pelvic and abdominal infection, resection of proximal jejunum, ileostomy, and jejunostomy. Post-Op Day: 2 Notes and labs were reviewed. Hemoglobin was 6.6 this morning, and a blood transfusion is currently being administered. Physical Exam: - Currently intubated and receiving fentanyl without other sedation. - Abdomen is soft and nondistended. - Minimal serosanguineous fluid is noted in the CARMEN drains. - The wound VAC has minimal sanguineous output. The wound is clean. Plan: - Continue current treatment. - Discussed case with Dr. Christy no changes to the plan of care at this time. 02/26/25 labs reviewed patient intubated , sedated abdomen soft, non distended wound vac stoma ok drain serous fluid Plan: continue current treatment 02/28/25 - Patient is intubated and responds to stimuli. no changes from yesterday : Abdomen is soft and non-distended. Stoma is pink. The wound is clean, dry, and intact with a wound vac in place. CARMEN drains have serous fluid output. - Investigations with results: Hemoglobin is low. Plan: - Treatment planned: Receiving one unit of packed red blood cells. CPAP today. Continue current treatment plan Prognosis: Poor Plan discussed with Dr. Christy Visit Coding Surgery Date of Service if different f: Feb 28, 2025 Billing Provider: MELVA CHRISTY MD Surgery Visit Codes: [id number] INP/OBS CARE(HIGH) CLAYTON POWERS NP Feb 28, 2025 09:27
[2025-02-28 10:46] LABS: Base Excess 0.9 mmol/L (-2.0-3.0)
[2025-02-28] MEDS: SODIUM PHOSPHATES 24 MEQ in SODIUM CHL 0.9% 100 ML IV ONE (11:54)
--- NOTE | 2025-02-28 14:30 | DVHPN2 ---
Progress Note Date Seen: Feb 28, 2025 Resident Creating Document: MARIAN TELLO RESIDENT Has the PT tested + for MRSA If YES, has PT been informed?: No Medical Necessity Reason Pt with a Central, PICC or Fol: Yes The following are medically ne: PICC Line, Leach Catheter Reason for leach catheter: Strict I&O Subjective Review of Systems Patient seen and examined at the bedside Extubated today and is currently on oxygen via simple mask Status post exploratory laparotomy #3 on 02/25 abdominal closure with a wound VAC Patient is on TPN About 50 mL gastric residual volume Objective vital signs Vital Sign Date Time Temp Pulse Resp B/P (MAP) Pulse Ox O2 Delivery O2 Flow Rate FiO2 02/28/25 13:45 96.6 90 19 100/46 (64) 98 205.9 02/28/25 11:10 8.0 02/28/25 09:10 30 02/28/25 06:00 Mechanical Ventilator+ Total Intake and Output 02/27/25 02/27/25 02/28/25 15:00 23:00 07:00 Intake Total 941.00 ml 669.30 ml 817.45 ml Output Total 1020 ml 990 ml Balance 941.00 ml -350.70 ml -172.55 ml medications Current Medications Medications Dose Ordered Sig/Isaura Route Start Time Stop Time Status Last Admin Dose Admin Cefazolin Sodium 50 ml @ 100 mls/hr Q8HR IV 01/13/25 14:00 UNV Vasopressin 20 units/Sodium Chloride 100 ml @ 9 mls/hr Q11H7M IV 01/13/25 18:45 UNV Potassium Chloride 100 ml @ 50 mls/hr Q2H IV 01/16/25 12:45 01/16/25 18:44 UNV Vancomycin HCl 100 ml @ 100 mls/hr DAILY@1200 IV 01/20/25 12:00 UNV Amino Acids 0 ml @ 0 mls/hr PER PHARMACY IV 02/13/25 10:45 Ondansetron HCl 4 mg Q4HPRN PRN IV 02/21/25 09:30 02/24/25 10:45 4 MG Micafungin Sodium 100 mg/Sodium Chloride 100 ml @ 100 mls/hr DAILY IV 02/22/25 10:00 02/28/25 11:58 100 MLS/HR Trimethoprim/ Sulfamethoxazole 0 ml @ 0 mls/hr PER PHARMACY IV 02/21/25 17:00 Multi-Ingredient Ointment 1 applic DAILY TOP 02/23/25 10:00 02/28/25 10:00 1 APPLIC Hydromorphone HCl 1 mg Q4HPRN PRN IV 02/23/25 13:30 02/25/25 00:18 1 MG Acetaminophen 650 mg Q4HP PRN PO 02/24/25 02:00 Lidocaine 1 patch DAILY@0230 TOP 02/24/25 02:30 02/25/25 01:49 1 PATCH Fentanyl Citrate 250 ml @ 2.5 mls/hr Q24H IV 02/25/25 11:30 02/27/25 11:27 15 MLS/HR Norepinephrine Bitartrate 250 ml @ 3.75 mls/hr Q24H IV 02/25/25 11:45 02/26/25 11:51 7.5 MLS/HR Midazolam HCl 50 ml @ 1 mls/hr Q24H IV 02/25/25 11:45 02/25/25 20:44 2 MLS/HR Trimethoprim/ Sulfamethoxazole 8 ml/Dextrose 258 ml @ 172 mls/hr Q8H IV 02/25/25 20:00 02/28/25 13:13 172 MLS/HR Meropenem 50 ml @ 17 mls/hr Q12HR@0800,2000 IV 02/26/25 08:00 02/28/25 08:25 17 MLS/HR Acetaminophen 650 mg Q6HP PRN [place] 02/26/25 09:00 Diagnostic Test (Pha) 1 strip Q4HR 02/26/25 16:00 Cancel Diagnostic Test (Pha) 1 strip IQ4HR 02/26/25 16:00 02/28/25 12:25 1 STRIP Dextrose 50 ml UD PRN IV 02/26/25 14:15 Diagnostic Test (Pha) 1 strip IQ4HR 02/26/25 16:00 UNV Insulin Human Regular IQ4HR SC 02/26/25 16:00 02/28/25 12:31 2 UNITS Dextrose 50 ml UD PRN IV 02/26/25 16:00 UNV Fat Emulsion Intravenous 150 ml/Sodium Chloride 40 meq/ Magnesium Sulfate 12 meq/ Multivitamins 10 ml/Insulin Human Regular 10 units/ Amino Acids/ Dextrose/Purified Water 1,173.1 ml @ 49 mls/hr [id number] IV 02/27/25 22:00 02/28/25 21:59 02/27/25 22:10 49 MLS/HR Fat Emulsion Intravenous 150 ml/Sodium Chloride 40 meq/ Magnesium Sulfate 2 meq/ Multivitamins 10 ml/Chromium/ Copper/Manganese/ Zinc 1 ml/Insulin Human Regular 10 units/Amino Acids/ Dextrose/Purified Water 1,171.6 ml @ 49 mls/hr [id number] IV 02/28/25 22:00 03/01/25 21:59 Examination Gen - mild conjunctival pallor, no scleral icterus Skin - Patients skin is warm and dry. HEENT - normocephalic, atraumatic, dry mucous membranes. Neck - supple, no lymphadenopathy Pulmonary - B/L diminished breath sounds in the bases. cardiovascular - regular S1,S2 heard GI - soft abdomen with tenderness to palpation. Bowel sounds hypoactive. Status post exploratory laparotomy with the abdominal closure with a wound VAC. Right lower quadrant ileostomy draining brownish fluid. CARMEN drain has serosanguineous drainage. Neurological - patient extubated, responds to verbal commands laboratory and microbiology Laboratory Tests 02/28/25 03:50 Test 02/28/25 03:50 Range/Units Serum Glucose 160 H 74-106 mg/dL Microbiology Date/Time Source Procedure Growth Status 02/25/25 21:39 Blood Blood Culture - Preliminary NO GROWTH AFTER 48 HOURS OF INCUBATION. Resulted 02/25/25 11:48 Sputum Gram Stain - Final Complete 02/25/25 11:48 Sputum Respiratory Culture - Final Complete 02/17/25 19:45 Peritoneal Fluid Gram Stain - Final Resulted 02/17/25 19:45 Body Fluid Culture - Preliminary Escherichia coli Stenotrophomonas maltophilia Resulted 02/15/25 10:12 Urine - [place] Urine Culture - Final Yeast, not Zoe albicans Complete 01/13/25 17:10 Nose MRSA Screen - Final Complete Problem List/Assessment/Plan Problem List/Assessment/Plan Assessment Septic shock Peritonitis Small bowel perforation status post exploratory laparotomy #1 with the resection of perforated small bowel and enteroenterostomy 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 Rivera Plan discussed with: Son, Other (RN Leeanne) Dietary Evaluation Review Comments: Nutrition Recommendation: 1) TPN to meet at least 75% estimated needs within 7 days 2) Monitor NPO status, lab values, wt trend, I/O Expected Outcomes/Goals: To meet >75% estimated needs Lab values to improve Fu 2-3 days Is there a minimum of two crit: Yes CC Plasma Assessment Blood Product Administration S: [id number] MARIAN TELLO RESIDENT Feb 28, 2025 14:30
--- NOTE | 2025-02-28 16:21 | DVHPN2 ---
Progress Note Date Seen: Feb 28, 2025 Has the PT tested + for MRSA If YES, has PT been informed?: No Medical Necessity Reason Pt with a Central, PICC or Fol: Yes The following are medically ne: Leach Catheter Reason for leach catheter: Strict I&O Subjective Review of Systems: Deferred Objective vital signs Vital Sign Date Time Temp Pulse Resp B/P (MAP) Pulse Ox O2 Delivery O2 Flow Rate FiO2 02/28/25 15:00 97.2 90 18 123/60 (81) 96 207.0 02/28/25 14:48 3.0 32 02/28/25 14:00 Nasal Cannula* Total Intake and Output 02/27/25 02/27/25 02/28/25 14:59 22:59 06:59 Intake Total 922.50 ml 390.25 ml 1196.50 ml Output Total 1020 ml 990 ml Balance 922.50 ml -629.75 ml 206.50 ml medications Current Medications Medications Dose Ordered Sig/Isaura Route Start Time Stop Time Status Last Admin Dose Admin Cefazolin Sodium 50 ml @ 100 mls/hr Q8HR IV 01/13/25 14:00 UNV Vasopressin 20 units/Sodium Chloride 100 ml @ 9 mls/hr Q11H7M IV 01/13/25 18:45 UNV Potassium Chloride 100 ml @ 50 mls/hr Q2H IV 01/16/25 12:45 01/16/25 18:44 UNV Vancomycin HCl 100 ml @ 100 mls/hr DAILY@1200 IV 01/20/25 12:00 UNV Amino Acids 0 ml @ 0 mls/hr PER PHARMACY IV 02/13/25 10:45 Ondansetron HCl 4 mg Q4HPRN PRN IV 02/21/25 09:30 02/24/25 10:45 4 MG Micafungin Sodium 100 mg/Sodium Chloride 100 ml @ 100 mls/hr DAILY IV 02/22/25 10:00 02/28/25 11:58 100 MLS/HR Trimethoprim/ Sulfamethoxazole 0 ml @ 0 mls/hr PER PHARMACY IV 02/21/25 17:00 Multi-Ingredient Ointment 1 applic DAILY TOP 02/23/25 10:00 02/28/25 10:00 1 APPLIC Hydromorphone HCl 1 mg Q4HPRN PRN IV 02/23/25 13:30 02/25/25 00:18 1 MG Acetaminophen 650 mg Q4HP PRN PO 02/24/25 02:00 Lidocaine 1 patch DAILY@0230 TOP 02/24/25 02:30 02/25/25 01:49 1 PATCH Norepinephrine Bitartrate 250 ml @ 3.75 mls/hr Q24H IV 02/25/25 11:45 02/26/25 11:51 7.5 MLS/HR Trimethoprim/ Sulfamethoxazole 8 ml/Dextrose 258 ml @ 172 mls/hr Q8H IV 02/25/25 20:00 02/28/25 13:13 172 MLS/HR Meropenem 50 ml @ 17 mls/hr Q12HR@0800,2000 IV 02/26/25 08:00 02/28/25 08:25 17 MLS/HR Acetaminophen 650 mg Q6HP PRN [place] 02/26/25 09:00 Diagnostic Test (Pha) 1 strip Q4HR 02/26/25 16:00 Cancel Diagnostic Test (Pha) 1 strip IQ4HR 02/26/25 16:00 02/28/25 12:25 1 STRIP Dextrose 50 ml UD PRN IV 02/26/25 14:15 Diagnostic Test (Pha) 1 strip IQ4HR 02/26/25 16:00 UNV Insulin Human Regular IQ4HR SC 02/26/25 16:00 02/28/25 12:31 2 UNITS Dextrose 50 ml UD PRN IV 02/26/25 16:00 UNV Fat Emulsion Intravenous 150 ml/Sodium Chloride 40 meq/ Magnesium Sulfate 12 meq/ Multivitamins 10 ml/Insulin Human Regular 10 units/ Amino Acids/ Dextrose/Purified Water 1,173.1 ml @ 49 mls/hr [id number] IV 02/27/25 22:00 02/28/25 21:59 02/27/25 22:10 49 MLS/HR Fat Emulsion Intravenous 150 ml/Sodium Chloride 40 meq/ Magnesium Sulfate 2 meq/ Multivitamins 10 ml/Chromium/ Copper/Manganese/ Zinc 1 ml/Insulin Human Regular 10 units/Amino Acids/ Dextrose/Purified Water 1,171.6 ml @ 49 mls/hr [id number] IV 02/28/25 22:00 03/01/25 21:59 Examination: GENERAL:Abnormal, LUNGS:Abnormal, ABDOMEN:Abnormal laboratory and microbiology Laboratory Tests 02/28/25 03:50 Test 02/28/25 03:50 Range/Units Serum Glucose 160 H 74-106 mg/dL Microbiology Date/Time Source Procedure Growth Status 02/25/25 21:39 Blood Blood Culture - Preliminary NO GROWTH AFTER 48 HOURS OF INCUBATION. Resulted 02/25/25 11:48 Sputum Gram Stain - Final Complete 02/25/25 11:48 Sputum Respiratory Culture - Final Complete 02/17/25 19:45 Peritoneal Fluid Gram Stain - Final Resulted 02/17/25 19:45 Body Fluid Culture - Preliminary Escherichia coli Stenotrophomonas maltophilia Resulted 02/15/25 10:12 Urine - [place] Urine Culture - Final Yeast, not Zoe albicans Complete 01/13/25 17:10 Nose MRSA Screen - Final Complete Problem List/Assessment/Plan Problem List/Assessment/Plan 80-year-old female presents to the hospital complaining of abdominal pain is diagnosed with abdominal perforation Acute kidney injury superimposed Chronic Kidney Disease secondary hemodynamic mediated Acute perforation of the abdomen / bowel ischemia s/p exlap colovesical fistula s/p OR return 02/27 History of atrial fibrillation previously on anticoagulation 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 , RA + Diabetes mellitus type 2 Hypophosphatemia /hyperkalemia-----> hypokalemia Anemia due to blood loss hypoalbuminemia electrolyte correction IVF, monitor gastric output and replace with IVF and electrolytes PRBC to keep hb> 8.0 surgery monitor UOP no indication for dialysis Plan discussed with: Patient Dietary Evaluation Review Comments: Nutrition Recommendation: 1) TPN to meet at least 75% estimated needs within 7 days 2) Monitor NPO status, lab values, wt trend, I/O Expected Outcomes/Goals: To meet >75% estimated needs Lab values to improve Fu 2-3 days Is there a minimum of two crit: Yes Total Time (mins): 57 CC Plasma Assessment Blood Product Administration S: [id number] PATRICK RAMOS MD Feb 28, 2025 16:21
--- NOTE | 2025-02-28 16:46 | DVHPNRES ---
Progress Note Date Seen: Feb 28, 2025 Resident Creating Document: ASHLEY TREJO RESIDENT Has the PT tested + for MRSA If YES, has PT been informed?: No Medical Necessity Reason Pt with a Central, PICC or Fol: Yes The following are medically ne: Leach Catheter Reason for leach catheter: Strict I&O Subjective Review of Systems This is a 80-year-old lady with past medical history of hypertension, AFib (on Eliquis), diabetes type 2, CKD, came to the hospital due to abdominal pain, and constipation. Admitted on 01/13/2025. Found to have peritonitis due to bowel perforation, and underwent emergent laparotomy with subsequent resection of perforated small bowel and enteroenterostomy. Due to abnormal CARMEN drainage, second exploratory laparotomy performed on 02/04 and found to have perforation near to previous perforation area, underwent resection of area with subsequent anastomosis of proximal jejunal loops. Patient seen and evaluated in bedside today. Patient was extubated today and is on 7 L oxygen. Continuously monitor her saturation and hemodynamic status. Currently reported no complaints. Patient is currently drowsy and not fully oriented. Objective vital signs Vital Sign Date Time Temp Pulse Resp B/P (MAP) Pulse Ox O2 Delivery O2 Flow Rate FiO2 02/28/25 15:00 97.2 90 18 123/60 (81) 96 207.0 02/28/25 14:48 3.0 32 02/28/25 14:00 Nasal Cannula* Total Intake and Output 02/27/25 02/27/25 02/28/25 15:00 23:00 07:00 Intake Total 941.00 ml 669.30 ml 879.75 ml Output Total 1020 ml 990 ml Balance 941.00 ml -350.70 ml -110.25 ml medications Current Medications Medications Dose Ordered Sig/Isaura Route Start Time Stop Time Status Last Admin Dose Admin Cefazolin Sodium 50 ml @ 100 mls/hr Q8HR IV 01/13/25 14:00 UNV Vasopressin 20 units/Sodium Chloride 100 ml @ 9 mls/hr Q11H7M IV 01/13/25 18:45 UNV Potassium Chloride 100 ml @ 50 mls/hr Q2H IV 01/16/25 12:45 01/16/25 18:44 UNV Vancomycin HCl 100 ml @ 100 mls/hr DAILY@1200 IV 01/20/25 12:00 UNV Amino Acids 0 ml @ 0 mls/hr PER PHARMACY IV 02/13/25 10:45 Ondansetron HCl 4 mg Q4HPRN PRN IV 02/21/25 09:30 02/24/25 10:45 4 MG Micafungin Sodium 100 mg/Sodium Chloride 100 ml @ 100 mls/hr DAILY IV 02/22/25 10:00 02/28/25 11:58 100 MLS/HR Trimethoprim/ Sulfamethoxazole 0 ml @ 0 mls/hr PER PHARMACY IV 02/21/25 17:00 Multi-Ingredient Ointment 1 applic DAILY TOP 02/23/25 10:00 02/28/25 10:00 1 APPLIC Hydromorphone HCl 1 mg Q4HPRN PRN IV 02/23/25 13:30 02/25/25 00:18 1 MG Acetaminophen 650 mg Q4HP PRN PO 02/24/25 02:00 Lidocaine 1 patch DAILY@0230 TOP 02/24/25 02:30 02/25/25 01:49 1 PATCH Norepinephrine Bitartrate 250 ml @ 3.75 mls/hr Q24H IV 02/25/25 11:45 02/26/25 11:51 7.5 MLS/HR Meropenem 50 ml @ 17 mls/hr Q12HR@0800,2000 IV 02/26/25 08:00 02/28/25 08:25 17 MLS/HR Acetaminophen 650 mg Q6HP PRN [place] 02/26/25 09:00 Diagnostic Test (Pha) 1 strip Q4HR 02/26/25 16:00 Cancel Diagnostic Test (Pha) 1 strip IQ4HR 02/26/25 16:00 02/28/25 12:25 1 STRIP Dextrose 50 ml UD PRN IV 02/26/25 14:15 Diagnostic Test (Pha) 1 strip IQ4HR 02/26/25 16:00 UNV Insulin Human Regular IQ4HR SC 02/26/25 16:00 02/28/25 12:31 2 UNITS Dextrose 50 ml UD PRN IV 02/26/25 16:00 UNV Fat Emulsion Intravenous 150 ml/Sodium Chloride 40 meq/ Magnesium Sulfate 12 meq/ Multivitamins 10 ml/Insulin Human Regular 10 units/ Amino Acids/ Dextrose/Purified Water 1,173.1 ml @ 49 mls/hr [id number] IV 02/27/25 22:00 02/28/25 21:59 02/27/25 22:10 49 MLS/HR Fat Emulsion Intravenous 150 ml/Sodium Chloride 40 meq/ Magnesium Sulfate 2 meq/ Multivitamins 10 ml/Chromium/ Copper/Manganese/ Zinc 1 ml/Insulin Human Regular 10 units/Amino Acids/ Dextrose/Purified Water 1,171.6 ml @ 49 mls/hr [id number] IV 02/28/25 22:00 03/01/25 21:59 Trimethoprim/ Sulfamethoxazole 15 ml/Dextrose 265 ml @ 176.667 mls/hr Q8H IV 02/28/25 20:00 Albumin Human 100 ml @ 100 mls/hr Q8H IV 02/28/25 16:30 03/01/25 09:29 Examination Pt is lying on bed General Appearance: Drowsy, not fully oriented, extubated HEENT: Atraumatic, Mucous membranes moist/pink Respiratory: Clear to auscultation, Normal air movement, No added sounds Cardiovascular: Regular rate, Normal S1, Normal S2, No murmurs Abdominal: Active bowel sounds, Soft, no distention, no tenderness, colostomy bag in place with 1 CARMEN drain Extremities: There is bilateral upper extremity edema, with seeping fluid Skin: No Significant rash, except past surgical scars Neuro: Drowsy , Deferred 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 Resulted 02/25/25 11:48 Sputum Gram Stain - Final Complete 02/25/25 11:48 Sputum Respiratory Culture - Final Complete 02/17/25 19:45 Peritoneal Fluid Gram Stain - Final Resulted 02/17/25 19:45 Body Fluid Culture - Preliminary Escherichia coli Stenotrophomonas maltophilia Resulted 02/15/25 10:12 Urine - [place] Urine Culture - Final Yeast, not Zoe albicans Complete 01/13/25 17:10 Nose MRSA Screen - Final Complete Labs and/or images reviewed: Labs reviewed by me, Image(s) reviewed by me Problem List/Assessment/Plan Problem List/Assessment/Plan Neurology # Chronic ischemic changes # Chronic Cortical atrophy - Head CT (01/29): Chronic microangiopathy and cortical atrophy. - reintubated on 02/25/25 during surgery # Extubated on 02/28 Cardiovascular # Septic shock secondary to hollow viscus perforation. # Paroxysmal atrial fibrillation with a second-degree hypercoagulable state currently NSR # Chronic diastolic heart failure with preserved EF 65% # Hypertension. - Echocardiogram (01/15): Normal LV EF (65%), mild LVH, mild LV diastolic dysfunction. - Chest X-ray: Bibasilar atelectasis. - ZEFERINO?DS?-VASc score >5 - cardiology on board - initially on Lovenox therapeutic but Dc'd due to low hemoglobin - Labetalol PRN Pulmonary # Acute hypoxic respiratory failure secondary to bilateral pleural effusion/pneumonia s/p re-intubation, status post extubation 02/28 - monitor with daily CXR - Sputum culture 01/29 Presumptive Zoe albicans and : negative - Reintubated on 02/25. - Chest Physiotherapy ongoing. - extubated today Gastrointestinal / Liver # Acute Bacterial Peritonitis due to small bowel perforation vs Perisplenic abscess. s/p multiple laparotomies # Transaminitis secondary to shock. # Anion gap metabolic acidosis due to bowel ischemia and lactic acidosis - CT abdomen/pelvis (02/16): Pneumoperitoneum, extraluminal contrast, perisplenic/subdiaphragmatic collection (7.1 1.1 cm). - Small bowel series (02/11): Normal. - Gastrografin (02/21): [place]-enteric fistula, contrast leak from distal transverse colon. Procedures: - First laparotomy (01/13): Resection of perforated small bowel, enteroenterostomy. - Second laparotomy (02/04): Resection near previous perforation, jejunal anastomosis. - Third laparotomy (02/25): Resection of distal ileum, end-to-end anastomosis, ileostomy. Cultures: - Peritoneal fluid (01/13): E. coli, Klebsiella pneumoniae (sensitive to meropenem). - Peritoneal fluid (02/17): E. coli, Stenotrophomonas maltophilia. - IR-guided pigtail drain placed; drained 50 cc purulent fluid. - CARMEN drains placed in 4 quadrants initially and now patient has only 1 CARMEN drain - Initially NPO, TPN initiated. - NG tube placed. - IV antimicrobials Bactrim, meropenem and micafungin - Initially patient is on Levofloxacin, Flagyl (02/03); Vancomycin and Meropenem (); Meropenem (); Vancomycin () then eventually switched to above antimicrobials Genitourinary / Kidney # ISRRAEL likely secondary to shock/volume depletion- resolved - Nephrology consulted for ISRRAEL. Endocrine # Hypothyroidism: TSH 16.29, normal free T4. # Type 2 diabetes mellitus: HbA1c 8.2%.- # Episodes of hypoglycemia. - continuously monitoring blood glucose and on ISS Metabolic Hypokalemia. Hyperkalemia. Hyponatremia: D5W at 75 mL/hr per nephrology. Nutrition: Severe protein malnutrition. Hematology # Acute on chronic anemia (hemodilution/post-surgical). # Severe thrombocytopenia, ?HIT # Acute DVT of right upper extremity. - Ultrasound (01/17): Partial thrombus in right internal jugular and cephalic veins. - hemoglobin today 6.9, transfused 1 more unit of PRBC 02/28 - Transfused total 8 units PRBC, 2 platelet units. - continuously monitor H&H - hold blood thinners Musculoskeletal / Skin # Rib fracture due to fall. Nutrition: TPN initiated. Bowel Regimen: As needed. GI Prophylaxis: Pantoprazole. DVT Prophylaxis: Lovenox (held/ Dc'd due to low hemoglobin). Lines / Tubes / Devices Airway: Intubated on 01/14, extubated on 02/07, reintubated on 02/25 extubated 02/28 Vascular Access: PICC line placed in right upper thigh on 01/26. Drips: Dc'd pressors and sedatives. Urinary: Leach catheter placed on 01/14, exchanged on 02/14. CARMEN drains in 1 quadrant. Goals of care addressed with patient's family members for more than 29 minutes: Full code status Care plan updated to the patient family Chris son on bedside and addressed all concerns Critical care time spent more than 83 minutes excluding procedures and including discussion with the family Case discussed with Dr Self and RN Plan discussed with: Son, Other (RN) My Orders My Orders Orders - ASHLEY TREJO RESIDENT Procedure Category Date Status Time Abg W/ Co-Ox RT 02/28/25 Logged 10:00 Complete Blood Count LAB 03/01/25 Verified 04:00 Comprehensive LAB 03/01/25 Verified Metabolic Panel 04:00 Dietary Evaluation Review Comments: Nutrition Recommendation: 1) TPN to meet at least 75% estimated needs within 7 days 2) Monitor NPO status, lab values, wt trend, I/O Expected Outcomes/Goals: To meet >75% estimated needs Lab values to improve Fu 2-3 days Is there a minimum of two crit: Yes CC Plasma Assessment Blood Product Administration S: [id number] Date of Service: Feb 28, 2025 Billing Provider: ZBIGNIEW SELF MD Common Visit Codes: 22950-ISHDGASI CARE 30-74 MIN, 57298-ZHATSDJK CARE-EACH +30MIN ASHLEY TREJO RESIDENT Feb 28, 2025 16:46 ZBIGNIEW SELF MD Mar 01, 2025 13:11
[2025-02-28] MEDS: FUROSEMIDE 20 MG/2 ML VIAL IV ONE (18:07)
[2025-02-28] MEDS: ALBUMIN 25% 100 ML IV SCH (18:07)
[2025-02-28 21:07] LABS: Hemoglobin 8.7 g/dL (12.2-16.2)
[2025-02-28 21:08] LABS: Hematocrit 24.7 % (36.0-46.0)
[2025-02-28] MEDS: SULFAMETH-TRIMETH 80/16MG-ML 15 ML in D5W 5% 250 ML IV SCH (21:24)
[2025-02-28] MEDS: TPN PER PHARMACY IV NR (22:37)
[2025-03-01] VITALS (96 sets, daily range): BP systolic 100–161; BP diastolic 47–92; PULSE 87–125; RESP 12–30; TEMP 98.2–99.7; O2SAT 87–98
[2025-03-01 03:54] LABS: Hematocrit 26.4 % (36.0-46.0); Hemoglobin 9.1 g/dL (12.2-16.2); Mean Corpuscular Hemoglobin 31.4 pg (28.0-32.0); Mean Corpuscular Volume 90.9 fL (80.0-100.0); Nucleated Red Blood Cells % 0.2 %
[2025-03-01 04:25] LABS: Albumin 3.3 g/dL (3.2-4.8); Anion Gap 14 (5-15); BUN/Creatinine Ratio 38.9 (10.0-20.0); Calcium 8.9 mg/dL (8.7-10.4); Magnesium 2.0 mg/dL (1.6-2.6); Sodium 143 mmol/L (136-145); Total Protein 5.7 g/dL (5.7-8.2)
[2025-03-01 04:31] LABS: Alanine Aminotransferase 408 U/L (7-40); Alkaline Phosphatase 410 U/L (46-116); Bilirubin, Total 2.8 mg/dL (0.2-1.0); Blood Urea Nitrogen 44 mg/dL (9-23); Carbon Dioxide 35 mmol/L (20-31); Chloride 94 mmol/L (98-107); Glucose 109 mg/dL (74-106); Potassium 2.6 mmol/L (3.5-5.1)
[2025-03-01] MEDS: POTASSIUM CHL 20MEQ/100ML 100 ML IV SCH ×2 (05:40→15:29)
--- NOTE | 2025-03-01 05:47 | DVH ---
ABDOMINAL RADIOGRAPH Indication: INCREASE IN GASTRIC RESIDUAL Technique: Single frontal view of the abdomen was obtained Comparison: CT CT AB PEL WO CON-NO ORAL OR IV on DOS: 02/17/25 FINDINGS: Lines and tubes: There is a surgical drain overlying the left hemipelvis. There is a catheter overl seng the right abdomen and pelvis. Perez catheter noted. There is contrast overlying the lower pelvis. There are no dilated bowel loops. Overall paucity of b owel gas throughout the abdomen. No supine radiographic evidence of pneumoperitoneum. Bony structures unremarkable. IMPRESSION: 1. No dilated bowel loops.
--- NOTE | 2025-03-01 07:37 | ECG ---
[facility] Test Date: 2025-02-25 Test Time: 13:33:13 Pat Name: WILLIAM RINCON Department: ICU Room: [address] [place] [address] A Gender: F Data Keyer: MASHA : [id number] Requested By: GIGI FELIZ Order Number: [id number] Reading MD: Neto Andujar Measurements Intervals [place] Rate: 129 P: 56 NE: 143 QRS: -22 QRSD: 86 T: 93 QT: 303 QTc: 444 Interpretive Statements Sinus tachycardia Borderline left axis deviation Nonspecific T abnormalities, lateral leads Electronically Signed On 03-07-2025 15:19:45 PDT by Neto Andujar Please click the below link to view image of tracing.
--- NOTE | 2025-03-01 08:28 | DVHPNRES ---
Progress Note Date Seen: Mar 01, 2025 Resident Creating Document: ASHLEY TREJO RESIDENT Has the PT tested + for MRSA If YES, has PT been informed?: No Medical Necessity Reason Pt with a Central, PICC or Fol: Yes The following are medically ne: Leach Catheter Reason for leach catheter: Strict I&O Subjective Review of Systems This is a 80-year-old lady with past medical history of hypertension, AFib (on Eliquis), diabetes type 2, CKD, came to the hospital due to abdominal pain, and constipation. Admitted on 01/13/2025. Found to have peritonitis due to bowel perforation, and underwent emergent laparotomy with subsequent resection of perforated small bowel and enteroenterostomy. Due to abnormal CARMEN drainage, second exploratory laparotomy performed on 02/04 and found to have perforation near to previous perforation area, underwent resection of area with subsequent anastomosis of proximal jejunal loops. Patient seen and evaluated in bedside today. Patient was extubated today and is on 7 L oxygen. Continuously monitor her saturation and hemodynamic status. Currently reported no complaints. Patient today is more alert and is responding to commands. 2000 ml suctioned with blackish fluid. wound vac to be changed. Patient complained of abdominal tenderness, pain, back pain which was 10/10 in intensity. Also patient complained that she can not sleep at night. Objective vital signs Vital Sign Date Time Temp Pulse Resp B/P (MAP) Pulse Ox O2 Delivery O2 Flow Rate FiO2 03/01/25 07:39 95 24 126/57 03/01/25 07:15 99.1 96 210.4 03/01/25 06:00 Nasal Cannula* 3 32 Total Intake and Output 02/28/25 02/28/25 03/01/25 15:00 23:00 07:00 Intake Total 1136.151 ml 810.001 ml 343 ml Output Total 2720 ml 5375 ml Balance 1136.151 ml -1909.999 ml -5032 ml medications Current Medications Medications Dose Ordered Sig/Isaura Route Start Time Stop Time Status Last Admin Dose Admin Cefazolin Sodium 50 ml @ 100 mls/hr Q8HR IV 01/13/25 14:00 UNV Vasopressin 20 units/Sodium Chloride 100 ml @ 9 mls/hr Q11H7M IV 01/13/25 18:45 UNV Potassium Chloride 100 ml @ 50 mls/hr Q2H IV 01/16/25 12:45 9/7/25 18:44 UNV Vancomycin HCl 100 ml @ 100 mls/hr DAILY@1200 IV 01/20/25 12:00 UNV Amino Acids 0 ml @ 0 mls/hr PER PHARMACY IV 02/13/25 10:45 Ondansetron HCl 4 mg Q4HPRN PRN IV 02/21/25 09:30 02/24/25 10:45 4 MG Micafungin Sodium 100 mg/Sodium Chloride 100 ml @ 100 mls/hr DAILY IV 02/22/25 10:00 02/28/25 11:58 100 MLS/HR Trimethoprim/ Sulfamethoxazole 0 ml @ 0 mls/hr PER PHARMACY IV 02/21/25 17:00 Multi-Ingredient Ointment 1 applic DAILY TOP 02/23/25 10:00 02/28/25 10:00 1 APPLIC Hydromorphone HCl 1 mg Q4HPRN PRN IV 02/23/25 13:30 03/01/25 07:09 1 MG Acetaminophen 650 mg Q4HP PRN PO 02/24/25 02:00 Lidocaine 1 patch DAILY@0230 TOP 02/24/25 02:30 02/25/25 01:49 1 PATCH Norepinephrine Bitartrate 250 ml @ 3.75 mls/hr Q24H IV 02/25/25 11:45 02/26/25 11:51 7.5 MLS/HR Meropenem 50 ml @ 17 mls/hr Q12HR@0800,2000 IV 02/26/25 08:00 03/01/25 08:11 17 MLS/HR Acetaminophen 650 mg Q6HP PRN [place] 02/26/25 09:00 Diagnostic Test (Pha) 1 strip Q4HR 02/26/25 16:00 Cancel Diagnostic Test (Pha) 1 strip IQ4HR 02/26/25 16:00 03/01/25 08:11 1 STRIP Dextrose 50 ml UD PRN IV 02/26/25 14:15 Diagnostic Test (Pha) 1 strip IQ4HR 02/26/25 16:00 UNV Insulin Human Regular IQ4HR SC 02/26/25 16:00 03/01/25 08:15 2 UNITS Dextrose 50 ml UD PRN IV 02/26/25 16:00 UNV Fat Emulsion Intravenous 150 ml/Sodium Chloride 40 meq/ Magnesium Sulfate 2 meq/ Multivitamins 10 ml/Chromium/ Copper/Manganese/ Zinc 1 ml/Insulin Human Regular 10 units/Amino Acids/ Dextrose/Purified Water 1,171.6 ml @ 49 mls/hr [id number] IV 02/28/25 22:00 03/01/25 21:59 02/28/25 22:37 49 MLS/HR Trimethoprim/ Sulfamethoxazole 15 ml/Dextrose 265 ml @ 176.667 mls/hr Q8H IV 02/28/25 20:00 03/01/25 04:40 176.667 MLS/HR Albumin Human 100 ml @ 100 mls/hr Q8H IV 02/28/25 16:30 03/01/25 09:29 03/01/25 08:11 100 MLS/HR Potassium Chloride 100 ml @ 50 mls/hr Q2H IV 03/01/25 05:00 03/01/25 12:59 03/01/25 08:10 50 MLS/HR Examination Pt is lying on bed General Appearance: Alert and Oriented x2 HEENT: Atraumatic, Mucous membranes moist/pink Respiratory: Clear to auscultation, Normal air movement, No added sounds Cardiovascular: Regular rate, Normal S1, Normal S2, No murmurs Abdominal: Active bowel sounds, Soft, no distention, no tenderness, colostomy bag in place with 1 CARMEN drain Extremities: There is bilateral upper extremity edema, with seeping fluid Skin: No Significant rash, except past surgical scars Neuro: more alert and oriented Nurse was there as flow specialist during examination laboratory and microbiology Laboratory Tests 03/01/25 03:10 Test 03/01/25 03:10 Range/Units Serum Glucose 109 H 74-106 mg/dL Microbiology Date/Time Source Procedure Growth Status 02/25/25 21:39 Blood Blood Culture - Preliminary NO GROWTH AFTER 72 HOURS OF INCUBATION. Resulted 02/25/25 11:48 Sputum Gram Stain - Final Complete 02/25/25 11:48 Sputum Respiratory Culture - Final Complete 02/17/25 19:45 Peritoneal Fluid Gram Stain - Final Resulted 02/17/25 19:45 Body Fluid Culture - Preliminary Escherichia coli Stenotrophomonas maltophilia Resulted 02/15/25 10:12 Urine - [place] Urine Culture - Final Yeast, not Zoe albicans Complete 01/13/25 17:10 Nose MRSA Screen - Final Complete Problem List/Assessment/Plan Problem List/Assessment/Plan Neurology # Chronic ischemic changes # Chronic Cortical atrophy - Head CT (01/29): Chronic microangiopathy and cortical atrophy. - reintubated on 02/25/25 during surgery # Extubated on 02/28 Cardiovascular # Septic shock secondary to hollow viscus perforation. # Paroxysmal atrial fibrillation with a second-degree hypercoagulable state currently NSR # Chronic diastolic heart failure with preserved EF 65% # Hypertension. - Echocardiogram (01/15): Normal LV EF (65%), mild LVH, mild LV diastolic dysfunction. - Chest X-ray: Bibasilar atelectasis. - ZEFERINO?DS?-VASc score >5 - cardiology on board - initially on Lovenox therapeutic but Dc'd due to low hemoglobin - Labetalol PRN Pulmonary # Acute hypoxic respiratory failure secondary to bilateral pleural effusion/pneumonia s/p re-intubation, status post extubation 02/28 - monitor with daily CXR - Sputum culture 01/29 Presumptive Zoe albicans and : negative - Reintubated on 02/25. - Chest Physiotherapy ongoing. - extubated today Gastrointestinal / Liver # Acute Bacterial Peritonitis due to small bowel perforation vs Perisplenic abscess. s/p multiple laparotomies # Transaminitis secondary to shock. # Anion gap metabolic acidosis due to bowel ischemia and lactic acidosis - CT abdomen/pelvis (02/16): Pneumoperitoneum, extraluminal contrast, perisplenic/subdiaphragmatic collection (7.1 1.1 cm). - Small bowel series (02/11): Normal. - Gastrografin (02/21): [place]-enteric fistula, contrast leak from distal transverse colon. Procedures: - First laparotomy (01/13): Resection of perforated small bowel, enteroenterostomy. - Second laparotomy (02/04): Resection near previous perforation, jejunal anastomosis. - Third laparotomy (02/25): Resection of distal ileum, end-to-end anastomosis, ileostomy. Cultures: - Peritoneal fluid (01/13): E. coli, Klebsiella pneumoniae (sensitive to meropenem). - Peritoneal fluid (02/17): E. coli, Stenotrophomonas maltophilia. - IR-guided pigtail drain placed; drained 50 cc purulent fluid. - CARMEN drains placed in 4 quadrants initially and now patient has only 1 CARMEN drain - Initially NPO, TPN initiated. - NG tube placed. - IV antimicrobials Bactrim, meropenem and micafungin - Initially patient is on Levofloxacin, Flagyl (02/03); Vancomycin and Meropenem (); Meropenem (); Vancomycin () then eventually switched to above antimicrobials Genitourinary / Kidney # ISRRAEL likely secondary to shock/volume depletion- resolved - Nephrology consulted for ISRRAEL. Endocrine # Hypothyroidism: TSH 16.29, normal free T4. # Type 2 diabetes mellitus: HbA1c 8.2%.- # Episodes of hypoglycemia. - continuously monitoring blood glucose and on ISS Metabolic Hypokalemia. Hyperkalemia. Hyponatremia: D5W at 75 mL/hr per nephrology. Hypophosphatemia: given IV phosphate Nutrition: Severe protein malnutrition. Hematology # Acute on chronic anemia (hemodilution/post-surgical). # Severe thrombocytopenia, HIT # Acute DVT of right upper extremity. - Ultrasound (01/17): Partial thrombus in right internal jugular and cephalic veins. - hemoglobin today 6.9, transfused 1 more unit of PRBC 02/28 - Transfused total 8 units PRBC, 2 platelet units. - continuously monitor H&H - hold blood thinners Musculoskeletal / Skin # Rib fracture due to fall. Nutrition: TPN initiated. Bowel Regimen: As needed. GI Prophylaxis: Pantoprazole. DVT Prophylaxis: Lovenox (held/ Dc'd due to low hemoglobin). Lines / Tubes / Devices Airway: Intubated on 01/14, extubated on 02/07, reintubated on 02/25 extubated 02/28 Vascular Access: PICC line placed in right upper thigh on 01/26. Drips: Dc'd pressors and sedatives. Urinary: Leach catheter placed on 01/14, exchanged on 02/14. CARMEN drains in 1 quadrant. Goals of care addressed with patient's family members for more than 29 minutes: Full code status Care plan updated to the patient family Chris (son) on bedside and addressed all concerns Critical care time spent more than 63 minutes excluding procedures and including discussion with the family Case discussed with Dr Self and RN Plan discussed with: Patient, Son My Orders My Orders Orders - ASHLEY TREJO RESIDENT Procedure Category Date Status Time Abg W/ Co-Ox RT 02/28/25 Logged 10:00 Dietary Evaluation Review Comments: Nutrition Recommendation: 1) TPN to meet at least 75% estimated needs within 7 days 2) Monitor NPO status, lab values, wt trend, I/O Expected Outcomes/Goals: To meet >75% estimated needs Lab values to improve Fu 2-3 days Is there a minimum of two crit: Yes CC Plasma Assessment Blood Product Administration S: [id number] Date of Service: Mar 01, 2025 Billing Provider: ZBIGNIEW SELF MD Common Visit Codes: 12287-[id number] CARE 30-74 MIN ASHLEY TREJO RESIDENT Mar 01, 2025 08:28 ZBIGNIEW SELF MD Mar 02, 2025 15:04
[2025-03-01] MEDS ORDERED: POTASSIUM CHL 20MEQ/100ML 100 ML IV SCH (09:00)
[2025-03-01] MEDS: METOCLOPRAMIDE HCL 5MG/ml INJ 2ml VIAL ONE (11:10)
--- NOTE | 2025-03-01 11:39 | DVHPN2 ---
Progress Note Date Seen: Mar 01, 2025 Has the PT tested + for MRSA If YES, has PT been informed?: No Medical Necessity Reason Pt with a Central, PICC or Fol: Yes The following are medically ne: Central Line, Leach Catheter Reason for leach catheter: Strict I&O Subjective Patient reports: Feels worse Objective vital signs Vital Sign Date Time Temp Pulse Resp B/P (MAP) Pulse Ox O2 Delivery O2 Flow Rate FiO2 03/01/25 10:00 96 03/01/25 10:00 20 98 Nasal Cannula* 3 32 03/01/25 08:00 146/72 (96) 03/01/25 07:15 99.1 210.4 Total Intake and Output 02/28/25 02/28/25 03/01/25 15:00 23:00 07:00 Intake Total 1136.151 ml 810.001 ml 343 ml Output Total 2720 ml 5375 ml Balance 1136.151 ml -1909.999 ml -5032 ml medications Current Medications Medications Dose Ordered Sig/Isaura Route Start Time Stop Time Status Last Admin Dose Admin Cefazolin Sodium 50 ml @ 100 mls/hr Q8HR IV 01/13/25 14:00 UNV Vasopressin 20 units/Sodium Chloride 100 ml @ 9 mls/hr Q11H7M IV 01/13/25 18:45 UNV Potassium Chloride 100 ml @ 50 mls/hr Q2H IV 01/16/25 12:45 01/16/25 18:44 UNV Vancomycin HCl 100 ml @ 100 mls/hr DAILY@1200 IV 01/20/25 12:00 UNV Amino Acids 0 ml @ 0 mls/hr PER PHARMACY IV 02/13/25 10:45 Ondansetron HCl 4 mg Q4HPRN PRN IV 02/21/25 09:30 02/24/25 10:45 4 MG Micafungin Sodium 100 mg/Sodium Chloride 100 ml @ 100 mls/hr DAILY IV 02/22/25 10:00 02/28/25 11:58 100 MLS/HR Trimethoprim/ Sulfamethoxazole 0 ml @ 0 mls/hr PER PHARMACY IV 02/21/25 17:00 Multi-Ingredient Ointment 1 applic DAILY TOP 02/23/25 10:00 02/28/25 10:00 1 APPLIC Hydromorphone HCl 1 mg Q4HPRN PRN IV 02/23/25 13:30 03/01/25 07:09 1 MG Acetaminophen 650 mg Q4HP PRN PO 02/24/25 02:00 Lidocaine 1 patch DAILY@0230 TOP 02/24/25 02:30 02/25/25 01:49 1 PATCH Norepinephrine Bitartrate 250 ml @ 3.75 mls/hr Q24H IV 02/25/25 11:45 02/26/25 11:51 7.5 MLS/HR Meropenem 50 ml @ 17 mls/hr Q12HR@0800,2000 IV 02/26/25 08:00 03/01/25 08:11 17 MLS/HR Acetaminophen 650 mg Q6HP PRN [place] 02/26/25 09:00 Diagnostic Test (Pha) 1 strip Q4HR 02/26/25 16:00 Cancel Diagnostic Test (Pha) 1 strip IQ4HR 02/26/25 16:00 03/01/25 08:11 1 STRIP Dextrose 50 ml UD PRN IV 02/26/25 14:15 Diagnostic Test (Pha) 1 strip IQ4HR 02/26/25 16:00 UNV Insulin Human Regular IQ4HR SC 02/26/25 16:00 03/01/25 08:15 2 UNITS Dextrose 50 ml UD PRN IV 02/26/25 16:00 UNV Fat Emulsion Intravenous 150 ml/Sodium Chloride 40 meq/ Magnesium Sulfate 2 meq/ Multivitamins 10 ml/Chromium/ Copper/Manganese/ Zinc 1 ml/Insulin Human Regular 10 units/Amino Acids/ Dextrose/Purified Water 1,171.6 ml @ 49 mls/hr [id number] IV 02/28/25 22:00 03/01/25 21:59 02/28/25 22:37 49 MLS/HR Trimethoprim/ Sulfamethoxazole 15 ml/Dextrose 265 ml @ 176.667 mls/hr Q8H IV 02/28/25 20:00 03/01/25 04:40 176.667 MLS/HR Fat Emulsion Intravenous 150 ml/Potassium Chloride 10 meq/ Potassium Phosphate 11 meq/ Magnesium Sulfate 4 meq/ Multivitamins 10 ml/Insulin Human Regular 10 units/ Amino Acids/ Dextrose/Purified Water 1,168.6 ml @ 49 mls/hr [id number] IV 03/01/25 22:00 03/02/25 21:59 Examination: GENERAL:Abnormal, ABDOMEN:Abnormal, SKIN:Abnormal laboratory and microbiology Laboratory Tests 03/01/25 03:10 Test 03/01/25 03:10 Range/Units Serum Glucose 109 H 74-106 mg/dL Microbiology Date/Time Source Procedure Growth Status 02/25/25 21:39 Blood Blood Culture - Preliminary NO GROWTH AFTER 72 HOURS OF INCUBATION. Resulted 02/25/25 11:48 Sputum Gram Stain - Final Complete 02/25/25 11:48 Sputum Respiratory Culture - Final Complete 02/17/25 19:45 Peritoneal Fluid Gram Stain - Final Resulted 02/17/25 19:45 Body Fluid Culture - Preliminary Escherichia coli Stenotrophomonas maltophilia Resulted 02/15/25 10:12 Urine - [place] Urine Culture - Final Yeast, not Zoe albicans Complete 01/13/25 17:10 Nose MRSA Screen - Final Complete Problem List/Assessment/Plan Problem List/Assessment/Plan 80-year-old female presents to the hospital complaining of abdominal pain is diagnosed with abdominal perforation Acute kidney injury superimposed Chronic Kidney Disease secondary hemodynamic mediated Acute perforation of the abdomen / bowel ischemia s/p exlap colovesical fistula s/p OR return 02/27 History of atrial fibrillation previously on anticoagulation 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 2.8L gastric. IV saline bolus today electrolyte correction K, Mg, phos daily IVF, monitor gastric output and replace with IVF and electrolytes PRBC to keep hb> 8.0 surgery monitor UOP no indication for dialysis Plan discussed with: Patient My Orders My Orders Orders - PATRICK RAMOS MD Procedure Category Date Status Time NS PHA 03/01/25 Transmitted 11:45 Dietary Evaluation Review Comments: Nutrition Recommendation: 1) TPN to meet at least 75% estimated needs within 7 days 2) Monitor NPO status, lab values, wt trend, I/O Expected Outcomes/Goals: To meet >75% estimated needs Lab values to improve Fu 2-3 days Is there a minimum of two crit: Yes CC Plasma Assessment Blood Product Administration S: [id number] PATRICK RAMOS MD Mar 01, 2025 11:39
[2025-03-01] MEDS: SODIUM CHLORIDE 0.9% 1,000 ML IV ONE (11:45)
--- NOTE | 2025-03-01 12:01 | DVHPN2 ---
Progress Note Date Seen: Mar 01, 2025 Has the PT tested + for MRSA If YES, has PT been informed?: No Medical Necessity Reason Pt with a Central, PICC or Fol: Yes The following are medically ne: Central Line, Leach Catheter Reason for leach catheter: Strict I&O Objective vital signs Vital Sign Date Time Temp Pulse Resp B/P (MAP) Pulse Ox O2 Delivery O2 Flow Rate FiO2 03/01/25 11:45 133/55 03/01/25 11:30 99.0 95 24 96 210.2 03/01/25 10:00 Nasal Cannula* 3 32 Total Intake and Output 02/28/25 02/28/25 03/01/25 14:59 22:59 06:59 Intake Total 1063.451 ml 896.001 ml 392 ml Output Total 2720 ml 5375 ml Balance 1063.451 ml -1823.999 ml -4983 ml medications Current Medications Medications Dose Ordered Sig/Isaura Route Start Time Stop Time Status Last Admin Dose Admin Cefazolin Sodium 50 ml @ 100 mls/hr Q8HR IV 01/13/25 14:00 UNV Vasopressin 20 units/Sodium Chloride 100 ml @ 9 mls/hr [id number] IV 01/13/25 18:45 UNV Potassium Chloride 100 ml @ 50 mls/hr Q2H IV 01/16/25 12:45 01/16/25 18:44 UNV Vancomycin HCl 100 ml @ 100 mls/hr DAILY@1200 IV 01/20/25 12:00 UNV Amino Acids 0 ml @ 0 mls/hr PER PHARMACY IV 02/13/25 10:45 Ondansetron HCl 4 mg Q4HPRN PRN IV 02/21/25 09:30 02/24/25 10:45 4 MG Micafungin Sodium 100 mg/Sodium Chloride 100 ml @ 100 mls/hr DAILY IV 02/22/25 10:00 02/28/25 11:58 100 MLS/HR Trimethoprim/ Sulfamethoxazole 0 ml @ 0 mls/hr PER PHARMACY IV 02/21/25 17:00 Multi-Ingredient Ointment 1 applic DAILY TOP 02/23/25 10:00 02/28/25 10:00 1 APPLIC Hydromorphone HCl 1 mg Q4HPRN PRN IV 02/23/25 13:30 03/01/25 07:09 1 MG Acetaminophen 650 mg Q4HP PRN PO 02/24/25 02:00 Lidocaine 1 patch DAILY@0230 TOP 02/24/25 02:30 02/25/25 01:49 1 PATCH Norepinephrine Bitartrate 250 ml @ 3.75 mls/hr Q24H IV 02/25/25 11:45 02/26/25 11:51 7.5 MLS/HR Meropenem 50 ml @ 17 mls/hr Q12HR@0800,2000 IV 02/26/25 08:00 03/01/25 08:11 17 MLS/HR Acetaminophen 650 mg Q6HP PRN PA 02/26/25 09:00 Diagnostic Test (Pha) 1 strip Q4HR 02/26/25 16:00 Cancel Diagnostic Test (Pha) 1 strip IQ4HR 02/26/25 16:00 03/01/25 08:11 1 STRIP Dextrose 50 ml UD PRN IV 02/26/25 14:15 Diagnostic Test (Pha) 1 strip IQ4HR 02/26/25 16:00 UNV Insulin Human Regular IQ4HR SC 02/26/25 16:00 03/01/25 08:15 2 UNITS Dextrose 50 ml UD PRN IV 02/26/25 16:00 UNV Fat Emulsion Intravenous 150 ml/Sodium Chloride 40 meq/ Magnesium Sulfate 2 meq/ Multivitamins 10 ml/Chromium/ Copper/Manganese/ Zinc 1 ml/Insulin Human Regular 10 units/Amino Acids/ Dextrose/Purified Water 1,171.6 ml @ 49 mls/hr [id number] IV 02/28/25 22:00 03/01/25 21:59 02/28/25 22:37 49 MLS/HR Trimethoprim/ Sulfamethoxazole 15 ml/Dextrose 265 ml @ 176.667 mls/hr Q8H IV 02/28/25 20:00 03/01/25 04:40 176.667 MLS/HR Fat Emulsion Intravenous 150 ml/Potassium Chloride 10 meq/ Potassium Phosphate 11 meq/ Magnesium Sulfate 4 meq/ Multivitamins 10 ml/Insulin Human Regular 10 units/ Amino Acids/ Dextrose/Purified Water 1,168.6 ml @ 49 mls/hr [id number] IV 03/01/25 22:00 03/02/25 21:59 laboratory and microbiology Laboratory Tests 03/01/25 03:10 Test 03/01/25 03:10 Range/Units Serum Glucose 109 H 74-106 mg/dL Problem List/Assessment/Plan Problem List/Assessment/Plan 01/14/25 afebrile, low dose BP support, received transfusion, I believe her decreased hematocrit is due to hemodilution. abdomen non distended, soft, wound clean and well approximated, drainage serous . remains intubated and sedated 01/16/25 ALKALOSIS, ABDOMEN NON DISTENDED, SOFT, DRAINAGE SEROUS, WOUND CLEAN AND WELL APPROXIMATED 01/17/25 improved, thrombocytopenia possibly made worse by Fluconazole,will DC, abdomen non distended, wound well approximated without infection, TATY drainage serous, CVP 6, good urine output. 01/18/25 abg reviewed, ,abdomen soft, non distended, TATY drainage clear serous, no bowel activity, febrile, urine output ok, continues with thrombocytopenia,pt and inr slightly elevated. prognosis grave. 01/20/25remains sedated on ventilator, abdomen soft, non distended, faint bowel sounds auscultated by nurse, wound clean and well approximated, TATY drainage clear serous. continues with thrombocytopenia, still behind on intravascular volume( BUN and Creatinine elevated), i would give more IV fluids and DC vancomycin. 01/25/25 afebrile, normotensive, wound clean and well approximated, TATY drainage serous, abdomen non distended, soft, gastrografin small bowel series shows non obstructed GI tract and no evidence of extravasation. It is OK to initiate enteric feedings. 01/29/25 16 DAYS POST OPERATIVELY TRHE TATY DRAINAGE WHICH HAD CONSISTENTLY BEEN SEROUS OR SERO SANGUINEOUS HAS BECOME "DIRTY" BROWNISH DISCOLORATION, HER WOUND IS CLEAN AND WELL APPROXIMATED AND HER ABDOMEN IS SOFT AND NON DISTENDED, CT SCAN SHOWS SO0ME FLUID AND ACCUMULATION OF FLUID AROUND THE SPLEEN, WILL REQUEST CT GUIDED ASPIRATION OF SAME, WILL ORDER IRRIGATION OF DRAINS. SHE SI AFEBRILE AND MAINTAINS NORMAL BLOOD PRESSURE, HER WBC IS NORMAL. 01/30/25 improved, awake, being weaned off vent. abdomen non distended, non tender, taty drainage clearing with irrigation 02/02/25clinically unchanged, gastrografin small bowel series reported and normal, no extravasation reported, will order a follow ujp KUB for tomorrow AM 02/03/25 PATIENT HAD A GASTROGRAFIN SMALL BOWEL SERIES AND A FOLLOW UP KUB X RAYS NEITHER ONE OF WHICH SHOW EXTRAVASATION OF CONTRAST OR EVIDENCE OF FREE CONTRAST IN THE PERITONEAL CAVITY. THERE IS HOWEVER VISCOUS, BROWNISH FLUID DRAINING VIA BOTH TATY DRAINS AND THROUGH INFRAUMBILICAL PORTION OF MIDLINE WOUND, I REMOVED THE RICHIE FROM THE 3 CM SECTION OF THE INFRAUMBILICAL WOUND AND EVACUATED ABOUT 30 CC OF THIS FLUID AND INSTRUCTED THE NURSE TO PLACE A STOMA APPLIANCE ON THIS OPENING. 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 TODAY HER WBC IS ELEVATED, ABDOMEN CONTINUES TO BE NON DISTENDED, SOFT, BUT SHE DOES HAVE SLIGHT TENDERNESS IN THE PERIUMBILICAL AREA. I WILL TREAT THIS EXPECTANTLY FORM THE TIME BEING IN THE HOPE THAT THIS IS A "CONTROLLED" FISTULA AND HOPEFUL WILL HEAL SPONTANEOUSLY WITH NPO AND NUTRITIONAL SUPPORT. WILL WATCH CLOSELY, AFTER A FEW DAYS WILL GET A FISTULOGRAM TO PIN POINT THE ENTERIC ORIGIN OF THE FISTULIZATION. CONTINUE NGT SUCTION AND DRAIN IRRIGATION ORDERED02/05/25 02/05/25 remains sedated and intubated?ventilated, abdomen non distended soft, wound vac in place. TATY drainage serosanguineous 02/08/25 EXTUBATED, GOOD INSPIRATORY EFFORT, BP NML WITHOUT PRESSOR SUPPORT, ABDOMEN SOFT, NON DISTENDED, APPROPRIATELY TENDER, LABS REVIEWED. NO CHANGES TODAY OTHER THAN ALLOW ICE CHIPS PO. WILL ORDER GASTROGRAFIN SMALL BOWEL FOLLOWTHROUGH FOR Friday02/09/25 awake cooperative, wound vac in place, abdomen soft, non distended, appropriately tender, TATY drainage brownish discoloration, will irrigate, her WBC is normal and she is afebrile and normotensive. gastrografin tomorrow 02/10/25 AWAKE,COMFORTABLE, DENIES PAIN, ABDOMEN NON DISTENDED APPROPRIATELY TENDER, WOUND CLEAN AND WELL APPROXIMATED, DRAINS BEING IRRIGATED, LABS OK, GOOD URINE OUTPUT. "SURGICALLY" STABLE 02/11/25 feels well, passing flatus. is hungry, abdomen soft non distended, drainage clearing with irrigation, will wait for Gastrografin small bowel series to be completed, if normal will start po clear liquids 02/12/25 no nausea, change in TATY drainage colort, appears to contaIN, BILE, WILL DC po CLEAR LIQUIDS, CONTINUE ICE CGHIPS, SEND DRAin fluid for amylase and bilirubin, 02/13/25 states she feels well, abdomen non tender, non distended, wound clean and well approximated. drainage slightly clearer, keep npo for now, needs to resume TPN 02/14/25 PATIENT C/O BEING COLD BUT HAS NO PAIN, DRAINAGE SEEMS TO BE CLEARING, SHE HAD A BOWEL MOVEMENTS, ABDOMEN IS SOFT AND NON TENDER, NON DISTENDED, WOUND IS CLEAN AND WELL APPROXIMATED, WILL CONTINUE NPO STATUS AMYLASE ON TATY DRAINAGE FLUID IS GOING TO TAKE SEVERAL DAYS TO BECOME AVAILABLE. CONTINUE TPN 02/16/25 DENIES PAIN,STATES SHE FEELS BETTER, WOUND VAC IN PLACE, ABDOMEN NON TENDER,NON DISTENDED, TATY DRAINAGE SMALL TO MODERATE , WILL CONTINUE IRRIGATING DRAINS, WILL REQUEST GI CONSULT TO CONSIDER ENDOSCOPY. WBC NL,H/H STABLE , ALBUMIN STILL VERY LOW. , 02/17/25 CT SCAN REVIEWED, I SUSPECT THERE IS A SMALL LEAK FROM THE APPEARANCE OF IMAGING ALTHOUGH RADIOLOGIST RECOMMENDED REPEAT CT SCAN (ORDERED). THE DRAINAGE IS SMALL AMOUNT BUT NOW IT IS WITH AN ODOR, I WILL RE INSERT NGT TO ATTEMPT DECREASING THE GASTRIC CONTENTS. ABDOMEN IS SOFT, APPROPRIATELY TENDER, WOUND VAC IN PLACE 02/18/25 AFEBRILE, NORMOTENSIVE4, WBC NL, ALL IMAGING NEGATIVE, ANGIOGRAM SHOWS NO EVIDENCE OF HYPOPERFUSION, CONTRAST AND NON CONTRAST CT SCAN FAILED TO SHOW ANY EVIDENCE OF EXTRAVASATION, THE DRAINAGE CONTINUES TO BE BROWNISH DISCOLORED AND FOULS SMELLING, EXPLAINED TO PT'S SON THAT I HAVE NO EVIDENCE OF ANY GI LEAKAGE, WILL GET A GASTROGRAFIN ENEMA ON FRIDAY, I AM TRYING TO REFRAIN FROM OPERATING ON THE FRAIL ELDERLY PATIENT FOR THE THIRD TIME, SHE WILL NOT TOLERATE ANOTHYER OPERATION WELL. HER ALBUMIN REMAINS VERY LOW.WOUND VAC OK 02/19/25 feels ok,c/o being cold, abdomen soft. non distended, minimally tender, drainage seems to be little less, labs ok, continue as is 02/22/25 she feels well, abdomen is non tender, soft and non distended, drainage slightly less in volume, still discolored,gastrografin enema reviewed by me ( no radiologist/s interpretation available), she has not evacuated the gastrografin according to nurse. 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 will proceed with operation on 02/25/25 at 0715 AM. 02/27/25 SLIGHT IMPROVEMENT, ABDOMEN SOFT, NON DISTENDED, STOMA VIABLE WITHOUT FUNCTION, OK TO TRY GETTING OFF VENTILATOR. 03/01/25 extubated, conversant,oriented, abdomen non distended, appropriately tender, wound clean ans well approximated, drainage serous, stoma viable and with minimal liquid,no gas. will sips of water and ice po Plan discussed with: Patient, Son Dietary Evaluation Review Comments: Nutrition Recommendation: 1) TPN to meet at least 75% estimated needs within 7 days 2) Monitor NPO status, lab values, wt trend, I/O Expected Outcomes/Goals: To meet >75% estimated needs Lab values to improve Fu 2-3 days Is there a minimum of two crit: Yes MELVA RAMESH MD Mar 01, 2025 12:01
[2025-03-01] MEDS: SODIUM PHOSPHATES 13 MEQ in SODIUM CHL 0.9% 100 ML IV ONE (13:33)
--- NOTE | 2025-03-01 18:54 | DVHPN2 ---
Progress Note Date Seen: Mar 01, 2025 Resident Creating Document: MARIAN TELLO RESIDENT Has the PT tested + for MRSA If YES, has PT been informed?: No Medical Necessity Reason Pt with a Central, PICC or Fol: Yes The following are medically ne: Central Line, Leach Catheter Reason for leach catheter: Strict I&O Subjective Review of Systems Patient seen and examined at the bedside Currently on nasal cannula 3 L Patient denied any abdominal pain Patient has high volume of suction in the NG tube to LIS, about 1500 mL in the day shift On TPN Serosanguineous drainage in the CARMEN drain Objective vital signs Vital Sign Date Time Temp Pulse Resp B/P (MAP) Pulse Ox O2 Delivery O2 Flow Rate FiO2 03/01/25 18:34 101 15 146/64 03/01/25 16:30 99.3 95 210.7 03/01/25 16:00 Nasal Cannula* 3 32 Total Intake and Output 02/28/25 02/28/25 03/01/25 15:00 23:00 07:00 Intake Total 1136.151 ml 810.001 ml 343 ml Output Total 2720 ml 5375 ml Balance 1136.151 ml -1909.999 ml -5032 ml medications Current Medications Medications Dose Ordered Sig/Isaura Route Start Time Stop Time Status Last Admin Dose Admin Cefazolin Sodium 50 ml @ 100 mls/hr Q8HR IV 01/13/25 14:00 UNV Vasopressin 20 units/Sodium Chloride 100 ml @ 9 mls/hr Q11H7M IV 01/13/25 18:45 UNV Potassium Chloride 100 ml @ 50 mls/hr Q2H IV 01/16/25 12:45 01/16/25 18:44 UNV Vancomycin HCl 100 ml @ 100 mls/hr DAILY@1200 IV 01/20/25 12:00 UNV Amino Acids 0 ml @ 0 mls/hr PER PHARMACY IV 02/13/25 10:45 Ondansetron HCl 4 mg Q4HPRN PRN IV 02/21/25 09:30 02/24/25 10:45 4 MG Micafungin Sodium 100 mg/Sodium Chloride 100 ml @ 100 mls/hr DAILY IV 02/22/25 10:00 03/01/25 11:58 100 MLS/HR Trimethoprim/ Sulfamethoxazole 0 ml @ 0 mls/hr PER PHARMACY IV 02/21/25 17:00 Multi-Ingredient Ointment 1 applic DAILY TOP 02/23/25 10:00 03/01/25 12:08 1 APPLIC Hydromorphone HCl 1 mg Q4HPRN PRN IV 02/23/25 13:30 03/01/25 18:34 1 MG Acetaminophen 650 mg Q4HP PRN PO 02/24/25 02:00 Lidocaine 1 patch DAILY@0230 TOP 02/24/25 02:30 02/25/25 01:49 1 PATCH Norepinephrine Bitartrate 250 ml @ 3.75 mls/hr Q24H IV 02/25/25 11:45 02/26/25 11:51 7.5 MLS/HR Meropenem 50 ml @ 17 mls/hr Q12HR@0800,2000 IV 02/26/25 08:00 03/01/25 08:11 17 MLS/HR Acetaminophen 650 mg Q6HP PRN OK 02/26/25 09:00 Diagnostic Test (Pha) 1 strip Q4HR 02/26/25 16:00 Cancel Diagnostic Test (Pha) 1 strip IQ4HR 02/26/25 16:00 03/01/25 16:26 1 STRIP Dextrose 50 ml UD PRN IV 02/26/25 14:15 Diagnostic Test (Pha) 1 strip IQ4HR 02/26/25 16:00 UNV Insulin Human Regular IQ4HR SC 02/26/25 16:00 03/01/25 16:36 2 UNITS Dextrose 50 ml UD PRN IV 02/26/25 16:00 UNV Fat Emulsion Intravenous 150 ml/Sodium Chloride 40 meq/ Magnesium Sulfate 2 meq/ Multivitamins 10 ml/Chromium/ Copper/Manganese/ Zinc 1 ml/Insulin Human Regular 10 units/Amino Acids/ Dextrose/Purified Water 1,171.6 ml @ 49 mls/hr [id number] IV 02/28/25 22:00 03/01/25 21:59 02/28/25 22:37 49 MLS/HR Trimethoprim/ Sulfamethoxazole 15 ml/Dextrose 265 ml @ 176.667 mls/hr Q8H IV 02/28/25 20:00 03/01/25 13:33 176.667 MLS/HR Fat Emulsion Intravenous 150 ml/Potassium Chloride 10 meq/ Potassium Phosphate 11 meq/ Magnesium Sulfate 4 meq/ Multivitamins 10 ml/Insulin Human Regular 10 units/ Amino Acids/ Dextrose/Purified Water 1,168.6 ml @ 49 mls/hr [id number] IV 03/01/25 22:00 03/02/25 21:59 Examination Gen - mild conjunctival pallor, no scleral icterus Skin - Patients skin is warm and dry. HEENT - normocephalic, atraumatic, dry mucous membranes. Neck - supple, no lymphadenopathy Pulmonary - B/L diminished breath sounds in the bases. cardiovascular - regular S1,S2 heard GI - soft abdomen with mild tenderness to palpation. Bowel sounds hypoactive. Status post exploratory laparotomy with the abdominal closure with a wound VAC. Right lower quadrant ileostomy draining greenish fluid. CARMEN drain has serosanguineous drainage. Neurological - patient is alert and oriented x2. laboratory and microbiology Laboratory Tests 03/01/25 03:10 Test 03/01/25 03:10 Range/Units Serum Glucose 109 H 74-106 mg/dL Microbiology Date/Time Source Procedure Growth Status 02/25/25 21:39 Blood Blood Culture - Preliminary NO GROWTH AFTER 72 HOURS OF INCUBATION. Resulted 02/25/25 11:48 Sputum Gram Stain - Final Complete 02/25/25 11:48 Sputum Respiratory Culture - Final Complete 02/17/25 19:45 Peritoneal Fluid Gram Stain - Final Resulted 02/17/25 19:45 Body Fluid Culture - Preliminary Escherichia coli Stenotrophomonas maltophilia Resulted 02/15/25 10:12 Urine - [place] Urine Culture - Final Yeast, not Zoe albicans Complete 01/13/25 17:10 Nose MRSA Screen - Final Complete Problem List/Assessment/Plan Problem List/Assessment/Plan Assessment Septic shock Peritonitis Small bowel perforation status post exploratory laparotomy #1 with the resection of perforated small bowel and enteroenterostomy 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 Rivera Plan discussed with: Other (MASHA Anderson) Dietary Evaluation Review Comments: Nutrition Recommendation: 1) TPN to meet at least 75% estimated needs within 7 days 2) Monitor NPO status, lab values, wt trend, I/O Expected Outcomes/Goals: To meet >75% estimated needs Lab values to improve Fu 2-3 days Is there a minimum of two crit: Yes CC Plasma Assessment Blood Product Administration S: [id number] MARIAN TELLO RESIDENT Mar 01, 2025 18:54
[2025-03-01 20:24] LABS: Chloride 99 mmol/L (98-107); Potassium 3.6 mmol/L (3.5-5.1)
[2025-03-01 20:25] LABS: Anion Gap 10 (5-15)
[2025-03-01 20:30] LABS: BUN/Creatinine Ratio 43.3 (10.0-20.0)
[2025-03-01 21:15] LABS: Blood Urea Nitrogen 42 mg/dL (9-23); Calcium 8.1 mg/dL (8.7-10.4); Carbon Dioxide 37 mmol/L (20-31); Glucose 111 mg/dL (74-106); Sodium 146 mmol/L (136-145)
[2025-03-02] VITALS (59 sets, daily range): BP systolic 117–169; BP diastolic 49–139; PULSE 89–118; RESP 10–29; TEMP 99.3–100.4; O2SAT 87–100
[2025-03-02 03:45] LABS: Hematocrit 26.6 % (36.0-46.0); Hemoglobin 9.3 g/dL (12.2-16.2); Mean Corpuscular Hemoglobin 32.8 pg (28.0-32.0); Mean Corpuscular Volume 93.9 fL (80.0-100.0); Nucleated Red Blood Cells % 0.2 %
[2025-03-02 04:10] LABS: Anion Gap 9 (5-15); BUN/Creatinine Ratio 36.5 (10.0-20.0); Calcium 8.8 mg/dL (8.7-10.4); Chloride 100 mmol/L (98-107); Magnesium 1.9 mg/dL (1.6-2.6); Sodium 145 mmol/L (136-145)
[2025-03-02 04:11] LABS: Alanine Aminotransferase 253 U/L (7-40); Albumin 2.8 g/dL (3.2-4.8); Alkaline Phosphatase 409 U/L (46-116); Bilirubin, Total 3.2 mg/dL (0.2-1.0); Blood Urea Nitrogen 35 mg/dL (9-23); Carbon Dioxide 36 mmol/L (20-31); Glucose 130 mg/dL (74-106); Potassium 3.1 mmol/L (3.5-5.1); Total Protein 5.1 g/dL (5.7-8.2)
[2025-03-02 05:01] LABS: Triglycerides 183 mg/dL (< 150)
[2025-03-02] MEDS: POTASSIUM CHL 20MEQ/100ML 100 ML IV SCH (05:52)
[2025-03-02] MEDS: MAGNESIUM SULFATE 1GM/100ML 100 ML IV ONE (05:53)
[2025-03-02] MEDS: PANTOPRAZOLE 40 MG/10 ML VIAL INJ IV SCH (10:49)
[2025-03-02] MEDS: InsuLIN REG 1unit/0.01ml Soln (100units/ml) SC SCH (13:15)
[2025-03-02] MEDS: ACCU-CHEK COMFORT CURVE STRIP VI SCH (13:15)
--- NOTE | 2025-03-02 13:33 | DVHPN2 ---
Progress Note Date Seen: Mar 02, 2025 Has the PT tested + for MRSA If YES, has PT been informed?: No Medical Necessity Reason Pt with a Central, PICC or Fol: Yes The following are medically ne: Central Line, Leach Catheter Reason for leach catheter: Strict I&O Objective vital signs Vital Sign Date Time Temp Pulse Resp B/P (MAP) Pulse Ox O2 Delivery O2 Flow Rate FiO2 03/02/25 12:00 100.0 102 12 157/62 (93) 98 212.0 03/02/25 08:00 Nasal Cannula* 3 32 Total Intake and Output 03/01/25 03/01/25 03/02/25 15:00 23:00 07:00 Intake Total 739.584 ml 749.00 ml 392 ml Output Total 9170 ml 3185 ml Balance 739.584 ml -8421.00 ml -2793 ml medications Current Medications Medications Dose Ordered Sig/Isaura Route Start Time Stop Time Status Last Admin Dose Admin Cefazolin Sodium 50 ml @ 100 mls/hr Q8HR IV 01/13/25 14:00 UNV Vasopressin 20 units/Sodium Chloride 100 ml @ 9 mls/hr Q11H7M IV 01/13/25 18:45 UNV Potassium Chloride 100 ml @ 50 mls/hr Q2H IV 01/16/25 12:45 01/16/25 18:44 UNV Vancomycin HCl 100 ml @ 100 mls/hr DAILY@1200 IV 01/20/25 12:00 UNV Amino Acids 0 ml @ 0 mls/hr PER PHARMACY IV 02/13/25 10:45 Ondansetron HCl 4 mg Q4HPRN PRN IV 02/21/25 09:30 02/24/25 10:45 4 MG Micafungin Sodium 100 mg/Sodium Chloride 100 ml @ 100 mls/hr DAILY IV 02/22/25 10:00 03/02/25 10:59 100 MLS/HR Trimethoprim/ Sulfamethoxazole 0 ml @ 0 mls/hr PER PHARMACY IV 02/21/25 17:00 Multi-Ingredient Ointment 1 applic DAILY TOP 02/23/25 10:00 03/02/25 11:00 1 APPLIC Hydromorphone HCl 1 mg Q4HPRN PRN IV 02/23/25 13:30 03/01/25 18:34 1 MG Acetaminophen 650 mg Q4HP PRN PO 02/24/25 02:00 Lidocaine 1 patch DAILY@0230 TOP 02/24/25 02:30 02/25/25 01:49 1 PATCH Norepinephrine Bitartrate 250 ml @ 3.75 mls/hr Q24H IV 02/25/25 11:45 02/26/25 11:51 7.5 MLS/HR Meropenem 50 ml @ 17 mls/hr Q12HR@0800,2000 IV 02/26/25 08:00 03/02/25 08:50 17 MLS/HR Acetaminophen 650 mg Q6HP PRN [place] 02/26/25 09:00 Diagnostic Test (Pha) 1 strip Q4HR 02/26/25 16:00 Cancel Dextrose 50 ml UD PRN IV 02/26/25 14:15 Diagnostic Test (Pha) 1 strip IQ4HR 02/26/25 16:00 UNV Dextrose 50 ml UD PRN IV 02/26/25 16:00 UNV Trimethoprim/ Sulfamethoxazole 15 ml/Dextrose 265 ml @ 176.667 mls/hr Q8H IV 02/28/25 20:00 03/02/25 04:40 176.667 MLS/HR Fat Emulsion Intravenous 150 ml/Potassium Chloride 10 meq/ Potassium Phosphate 11 meq/ Magnesium Sulfate 4 meq/ Multivitamins 10 ml/Insulin Human Regular 10 units/ Amino Acids/ Dextrose/Purified Water 1,168.6 ml @ 49 mls/hr [id number] IV 03/01/25 22:00 03/02/25 21:59 03/01/25 21:34 49 MLS/HR Pantoprazole Sodium 40 mg DAILY IV 03/02/25 10:00 03/02/25 10:49 40 MG Diagnostic Test (Pha) 1 strip IQ4HR 03/02/25 12:00 03/02/25 13:15 1 STRIP Insulin Human Regular Q6HR SC 03/02/25 12:00 03/02/25 13:15 2 UNITS Fat Emulsion Intravenous 150 ml/Potassium Chloride 20 meq/ Potassium Phosphate 44 meq/ Magnesium Sulfate 8 meq/ Multivitamins 10 ml/Insulin Human Regular 10 units/ Amino Acids/ Dextrose/Purified Water 1,182.1 ml @ 49 mls/hr Q24H8M IV 03/02/25 22:00 03/03/25 21:59 laboratory and microbiology Laboratory Tests 03/02/25 03:10 Test 03/02/25 03:10 Range/Units Serum Glucose 130 H 74-106 mg/dL Problem List/Assessment/Plan Problem List/Assessment/Plan 01/14/25 afebrile, low dose BP support, received transfusion, I believe her decreased hematocrit is due to hemodilution. abdomen non distended, soft, wound clean and well approximated, drainage serous . remains intubated and sedated 01/16/25 ALKALOSIS, ABDOMEN NON DISTENDED, SOFT, DRAINAGE SEROUS, WOUND CLEAN AND WELL APPROXIMATED 01/17/25 improved, thrombocytopenia possibly made worse by Fluconazole,will DC, abdomen non distended, wound well approximated without infection, TATY drainage serous, CVP 6, good urine output. 01/18/25 abg reviewed, ,abdomen soft, non distended, TATY drainage clear serous, no bowel activity, febrile, urine output ok, continues with thrombocytopenia,pt and inr slightly elevated. prognosis grave. 01/20/25remains sedated on ventilator, abdomen soft, non distended, faint bowel sounds auscultated by nurse, wound clean and well approximated, TATY drainage clear serous. continues with thrombocytopenia, still behind on intravascular volume( BUN and Creatinine elevated), i would give more IV fluids and DC vancomycin. 01/25/25 afebrile, normotensive, wound clean and well approximated, TATY drainage serous, abdomen non distended, soft, gastrografin small bowel series shows non obstructed GI tract and no evidence of extravasation. It is OK to initiate enteric feedings. 01/29/25 16 DAYS POST OPERATIVELY TRHE TATY DRAINAGE WHICH HAD CONSISTENTLY BEEN SEROUS OR SERO SANGUINEOUS HAS BECOME "DIRTY" BROWNISH DISCOLORATION, HER WOUND IS CLEAN AND WELL APPROXIMATED AND HER ABDOMEN IS SOFT AND NON DISTENDED, CT SCAN SHOWS SO0ME FLUID AND ACCUMULATION OF FLUID AROUND THE SPLEEN, WILL REQUEST CT GUIDED ASPIRATION OF SAME, WILL ORDER IRRIGATION OF DRAINS. SHE SI AFEBRILE AND MAINTAINS NORMAL BLOOD PRESSURE, HER WBC IS NORMAL. 01/30/25 improved, awake, being weaned off vent. abdomen non distended, non tender, taty drainage clearing with irrigation 02/02/25clinically unchanged, gastrografin small bowel series reported and normal, no extravasation reported, will order a follow up KUB for tomorrow AM 02/03/25 PATIENT HAD A GASTROGRAFIN SMALL BOWEL SERIES AND A FOLLOW UP KUB X RAYS NEITHER ONE OF WHICH SHOW EXTRAVASATION OF CONTRAST OR EVIDENCE OF FREE CONTRAST IN THE PERITONEAL CAVITY. THERE IS HOWEVER VISCOUS, BROWNISH FLUID DRAINING VIA BOTH TATY DRAINS AND THROUGH INFRAUMBILICAL PORTION OF MIDLINE WOUND, I REMOVED THE RICHIE FROM THE 3 CM SECTION OF THE INFRAUMBILICAL WOUND AND EVACUATED ABOUT 30 CC OF THIS FLUID AND INSTRUCTED THE NURSE TO PLACE A STOMA APPLIANCE ON THIS OPENING. 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 TODAY HER WBC IS ELEVATED, ABDOMEN CONTINUES TO BE NON DISTENDED, SOFT, BUT SHE DOES HAVE SLIGHT TENDERNESS IN THE PERIUMBILICAL AREA. I WILL TREAT THIS EXPECTANTLY FORM THE TIME BEING IN THE HOPE THAT THIS IS A "CONTROLLED" FISTULA AND HOPEFUL WILL HEAL SPONTANEOUSLY WITH NPO AND NUTRITIONAL SUPPORT. WILL WATCH CLOSELY, AFTER A FEW DAYS WILL GET A FISTULOGRAM TO PIN POINT THE ENTERIC ORIGIN OF THE FISTULIZATION. CONTINUE NGT SUCTION AND DRAIN IRRIGATION ORDERED02/05/25 02/05/25 remains sedated and intubated?ventilated, abdomen non distended soft, wound vac in place. TATY drainage serosanguineous 02/08/25 EXTUBATED, GOOD INSPIRATORY EFFORT, BP NML WITHOUT PRESSOR SUPPORT, ABDOMEN SOFT, NON DISTENDED, APPROPRIATELY TENDER, LABS REVIEWED. NO CHANGES TODAY OTHER THAN ALLOW ICE CHIPS PO. WILL ORDER GASTROGRAFIN SMALL BOWEL FOLLOWTHROUGH FOR Friday02/09/25 awake cooperative, wound vac in place, abdomen soft, non distended, appropriately tender, TATY drainage brownish discoloration, will irrigate, her WBC is normal and she is afebrile and normotensive. gastrografin tomorrow 02/10/25 AWAKE,COMFORTABLE, DENIES PAIN, ABDOMEN NON DISTENDED APPROPRIATELY TENDER, WOUND CLEAN AND WELL APPROXIMATED, DRAINS BEING IRRIGATED, LABS OK, GOOD URINE OUTPUT. "SURGICALLY" STABLE 02/11/25 feels well, passing flatus. is hungry, abdomen soft non distended, drainage clearing with irrigation, will wait for Gastrografin small bowel series to be completed, if normal will start po clear liquids 02/12/25 no nausea, change in TATY drainage colort, appears to contaIN, BILE, WILL DC po CLEAR LIQUIDS, CONTINUE ICE CGHIPS, SEND DRAin fluid for amylase and bilirubin, 02/13/25 states she feels well, abdomen non tender, non distended, wound clean and well approximated. drainage slightly clearer, keep npo for now, needs to resume TPN 02/14/25 PATIENT C/O BEING COLD BUT HAS NO PAIN, DRAINAGE SEEMS TO BE CLEARING, SHE HAD A BOWEL MOVEMENTS, ABDOMEN IS SOFT AND NON TENDER, NON DISTENDED, WOUND IS CLEAN AND WELL APPROXIMATED, WILL CONTINUE NPO STATUS AMYLASE ON TATY DRAINAGE FLUID IS GOING TO TAKE SEVERAL DAYS TO BECOME AVAILABLE. CONTINUE TPN 02/16/25 DENIES PAIN,STATES SHE FEELS BETTER, WOUND VAC IN PLACE, ABDOMEN NON TENDER,NON DISTENDED, TATY DRAINAGE SMALL TO MODERATE , WILL CONTINUE IRRIGATING DRAINS, WILL REQUEST GI CONSULT TO CONSIDER ENDOSCOPY. WBC NL,H/H STABLE , ALBUMIN STILL VERY LOW. , 02/17/25 CT SCAN REVIEWED, I SUSPECT THERE IS A SMALL LEAK FROM THE APPEARANCE OF IMAGING ALTHOUGH RADIOLOGIST RECOMMENDED REPEAT CT SCAN (ORDERED). THE DRAINAGE IS SMALL AMOUNT BUT NOW IT IS WITH AN ODOR, I WILL RE INSERT NGT TO ATTEMPT DECREASING THE GASTRIC CONTENTS. ABDOMEN IS SOFT, APPROPRIATELY TENDER, WOUND VAC IN PLACE 02/18/25 AFEBRILE, NORMOTENSIVE4, WBC NL, ALL IMAGING NEGATIVE, ANGIOGRAM SHOWS NO EVIDENCE OF HYPOPERFUSION, CONTRAST AND NON CONTRAST CT SCAN FAILED TO SHOW ANY EVIDENCE OF EXTRAVASATION, THE DRAINAGE CONTINUES TO BE BROWNISH DISCOLORED AND FOULS SMELLING, EXPLAINED TO PT'S SON THAT I HAVE NO EVIDENCE OF ANY GI LEAKAGE, WILL GET A GASTROGRAFIN ENEMA ON FRIDAY, I AM TRYING TO REFRAIN FROM OPERATING ON THE FRAIL ELDERLY PATIENT FOR THE THIRD TIME, SHE WILL NOT TOLERATE ANOTHYER OPERATION WELL. HER ALBUMIN REMAINS VERY LOW.WOUND VAC OK 02/19/25 feels ok,c/o being cold, abdomen soft. non distended, minimally tender, drainage seems to be little less, labs ok, continue as is 02/22/25 she feels well, abdomen is non tender, soft and non distended, drainage slightly less in volume, still discolored,gastrografin enema reviewed by me ( no radiologist/s interpretation available), she has not evacuated the gastrografin according to nurse. 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 will proceed with operation on 02/25/25 at 0715 AM. 02/27/25 SLIGHT IMPROVEMENT, ABDOMEN SOFT, NON DISTENDED, STOMA VIABLE WITHOUT FUNCTION, OK TO TRY GETTING OFF VENTILATOR. 03/01/25 extubated, conversant,oriented, abdomen non distended, appropriately tender, wound clean ans well approximated, drainage serous, stoma viable and with minimal liquid,no gas. will sips of water and ice po 03/02/25 awake comfortable, denies pain, abdomen appropriately tender, wound vac in place, afebrile, normotensive, drainage serosanguineous, cbc stable, stoma viable and with minimal output will resume irrigation of drain Plan discussed with: Patient, Son, Other Dietary Evaluation Review Comments: Nutrition Recommendation: 1) TPN to meet at least 75% estimated needs within 7 days 2) Monitor NPO status, lab values, wt trend, I/O Expected Outcomes/Goals: To meet >75% estimated needs Lab values to improve Fu 2-3 days Is there a minimum of two crit: Yes MELVA RAMESH MD Mar 02, 2025 13:33
[2025-03-02] MEDS: POTASSIUM PHOSPHATE 26.4 MEQ in SODIUM CHL 0.9% 100 ML IV ONE (13:57)
--- NOTE | 2025-03-02 14:05 | DVHPNRES ---
Progress Note Date Seen: Mar 02, 2025 Resident Creating Document: ASHLEY TREJO RESIDENT Has the PT tested + for MRSA If YES, has PT been informed?: No Medical Necessity Reason Pt with a Central, PICC or Fol: Yes The following are medically ne: Central Line, Leach Catheter Reason for leach catheter: Strict I&O Subjective Review of Systems This is a 80-year-old lady with past medical history of hypertension, AFib (on Eliquis), diabetes type 2, CKD, came to the hospital due to abdominal pain, and constipation. Admitted on 01/13/2025. Found to have peritonitis due to bowel perforation, and underwent emergent laparotomy with subsequent resection of perforated small bowel and enteroenterostomy. Due to abnormal CARMEN drainage, second exploratory laparotomy performed on 02/04 and found to have perforation near to previous perforation area, underwent resection of area with subsequent anastomosis of proximal jejunal loops. Patient seen and evaluated in bedside today. Patient was extubated today and is on 3 L oxygen. Continuously monitor her saturation and hemodynamic status. Currently reported no complaints. Patient today is more alert and is responding to commands. 1700 ml suctioned with blackish fluid. wound vac changed. Patient complained of abdominal tenderness, pain, back pain which was 8/10 in intensity. Ordered urine culture, drain culture today. Objective vital signs Vital Sign Date Time Temp Pulse Resp B/P (MAP) Pulse Ox O2 Delivery O2 Flow Rate FiO2 03/02/25 12:00 100.0 102 12 157/62 (93) 98 212.0 03/02/25 08:00 Nasal Cannula* 3 32 Total Intake and Output 03/01/25 03/01/25 03/02/25 15:00 23:00 07:00 Intake Total 739.584 ml 749.00 ml 392 ml Output Total 9170 ml 3185 ml Balance 739.584 ml -8421.00 ml -2793 ml medications Current Medications Medications Dose Ordered Sig/Isaura Route Start Time Stop Time Status Last Admin Dose Admin Cefazolin Sodium 50 ml @ 100 mls/hr Q8HR IV 01/13/25 14:00 UNV Vasopressin 20 units/Sodium Chloride 100 ml @ 9 mls/hr Q11H7M IV 01/13/25 18:45 UNV Potassium Chloride 100 ml @ 50 mls/hr Q2H IV 01/16/25 12:45 01/16/25 18:44 UNV Vancomycin HCl 100 ml @ 100 mls/hr DAILY@1200 IV 01/20/25 12:00 UNV Amino Acids 0 ml @ 0 mls/hr PER PHARMACY IV 02/13/25 10:45 Ondansetron HCl 4 mg Q4HPRN PRN IV 02/21/25 09:30 02/24/25 10:45 4 MG Micafungin Sodium 100 mg/Sodium Chloride 100 ml @ 100 mls/hr DAILY IV 02/22/25 10:00 03/02/25 10:59 100 MLS/HR Trimethoprim/ Sulfamethoxazole 0 ml @ 0 mls/hr PER PHARMACY IV 02/21/25 17:00 Multi-Ingredient Ointment 1 applic DAILY TOP 02/23/25 10:00 03/02/25 11:00 1 APPLIC Hydromorphone HCl 1 mg Q4HPRN PRN IV 02/23/25 13:30 03/01/25 18:34 1 MG Acetaminophen 650 mg Q4HP PRN PO 02/24/25 02:00 Lidocaine 1 patch DAILY@0230 TOP 02/24/25 02:30 02/25/25 01:49 1 PATCH Norepinephrine Bitartrate 250 ml @ 3.75 mls/hr Q24H IV 02/25/25 11:45 02/26/25 11:51 7.5 MLS/HR Meropenem 50 ml @ 17 mls/hr Q12HR@0800,2000 IV 02/26/25 08:00 03/02/25 08:50 17 MLS/HR Acetaminophen 650 mg Q6HP PRN [place] 02/26/25 09:00 Diagnostic Test (Pha) 1 strip Q4HR 02/26/25 16:00 Cancel Dextrose 50 ml UD PRN IV 02/26/25 14:15 Diagnostic Test (Pha) 1 strip IQ4HR 02/26/25 16:00 UNV Dextrose 50 ml UD PRN IV 02/26/25 16:00 UNV Trimethoprim/ Sulfamethoxazole 15 ml/Dextrose 265 ml @ 176.667 mls/hr Q8H IV 02/28/25 20:00 03/02/25 13:53 176.667 MLS/HR Fat Emulsion Intravenous 150 ml/Potassium Chloride 10 meq/ Potassium Phosphate 11 meq/ Magnesium Sulfate 4 meq/ Multivitamins 10 ml/Insulin Human Regular 10 units/ Amino Acids/ Dextrose/Purified Water 1,168.6 ml @ 49 mls/hr [id number] IV 03/01/25 22:00 03/02/25 21:59 03/01/25 21:34 49 MLS/HR Pantoprazole Sodium 40 mg DAILY IV 03/02/25 10:00 03/02/25 10:49 40 MG Diagnostic Test (Pha) 1 strip IQ4HR 03/02/25 12:00 03/02/25 13:15 1 STRIP Insulin Human Regular Q6HR SC 03/02/25 12:00 03/02/25 13:15 2 UNITS Fat Emulsion Intravenous 150 ml/Potassium Chloride 20 meq/ Potassium Phosphate 44 meq/ Magnesium Sulfate 8 meq/ Multivitamins 10 ml/Insulin Human Regular 10 units/ Amino Acids/ Dextrose/Purified Water 1,182.1 ml @ 49 mls/hr Q24H8M IV 03/02/25 22:00 03/03/25 21:59 Examination Pt is lying on bed General Appearance: Alert and Oriented x2 HEENT: Atraumatic, Mucous membranes moist/pink Respiratory: Clear to auscultation, Normal air movement, No added sounds Cardiovascular: Regular rate, Normal S1, Normal S2, No murmurs Abdominal: Active bowel sounds, Soft, no distention, no tenderness, colostomy bag in place with 1 CARMEN drain Extremities: There is bilateral upper extremity edema, with seeping fluid Skin: No Significant rash, except past surgical scars Neuro: more alert and oriented Nurse was there as dining room attendant during examination laboratory and microbiology Laboratory Tests 03/02/25 03:10 Test 03/02/25 03:10 Range/Units Serum Glucose 130 H 74-106 mg/dL Microbiology Date/Time Source Procedure Growth Status 02/25/25 21:39 Blood Blood Culture - Preliminary NO GROWTH AFTER 72 HOURS OF INCUBATION. Resulted 02/25/25 11:48 Sputum Gram Stain - Final Complete 02/25/25 11:48 Sputum Respiratory Culture - Final Complete 02/17/25 19:45 Peritoneal Fluid Gram Stain - Final Resulted 02/17/25 19:45 Body Fluid Culture - Preliminary Escherichia coli Stenotrophomonas maltophilia Resulted 02/15/25 10:12 Urine - [place] Urine Culture - Final Yeast, not Zoe albicans Complete 01/13/25 17:10 Nose MRSA Screen - Final Complete Problem List/Assessment/Plan Problem List/Assessment/Plan Neurology # Chronic ischemic changes # Chronic Cortical atrophy - Head CT (01/29): Chronic microangiopathy and cortical atrophy. - reintubated on 02/25/25 during surgery # Extubated on 02/28 Cardiovascular # Septic shock secondary to hollow viscus perforation. # Paroxysmal atrial fibrillation with a second-degree hypercoagulable state currently NSR # Chronic diastolic heart failure with preserved EF 65% # Hypertension. - Echocardiogram (01/15): Normal LV EF (65%), mild LVH, mild LV diastolic dysfunction. - Chest X-ray: Bibasilar atelectasis. - ZEFERINO?DS?-VASc score >5 - cardiology on board - initially on Lovenox therapeutic but Dc'd due to low hemoglobin - Labetalol PRN Pulmonary # Acute hypoxic respiratory failure secondary to bilateral pleural effusion/pneumonia s/p re-intubation, status post extubation 02/28 - monitor with daily CXR - Sputum culture 01/29 Presumptive Zoe albicans and : negative - Reintubated on 02/25. - Chest Physiotherapy ongoing. - extubated today Gastrointestinal / Liver # Acute Bacterial Peritonitis due to small bowel perforation vs Perisplenic abscess. s/p multiple laparotomies # Transaminitis secondary to shock. # Anion gap metabolic acidosis due to bowel ischemia and lactic acidosis - CT abdomen/pelvis (02/16): Pneumoperitoneum, extraluminal contrast, perisplenic/subdiaphragmatic collection (7.1 1.1 cm). - Small bowel series (02/11): Normal. 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 Procedures: - First laparotomy (01/13): Resection of perforated small bowel, enteroenterostomy. - Second laparotomy (02/04): Resection near previous perforation, jejunal anastomosis. - Third laparotomy (02/25): Resection of distal ileum, end-to-end anastomosis, ileostomy. Cultures: - Peritoneal fluid (01/13): E. coli, Klebsiella pneumoniae (sensitive to meropenem). - Peritoneal fluid (02/17): E. coli, Stenotrophomonas maltophilia. - IR-guided pigtail drain placed; drained 50 cc purulent fluid. - CARMEN drains placed in 4 quadrants initially and now patient has only 1 CARMEN drain - Initially NPO, TPN initiated. - NG tube placed. - IV antimicrobials Bactrim, meropenem and micafungin - Initially patient is on Levofloxacin, Flagyl (02/03); Vancomycin and Meropenem (); Meropenem (); Vancomycin () then eventually switched to above antimicrobials Genitourinary / Kidney # ISRRAEL likely secondary to shock/volume depletion- resolved - Nephrology consulted for ISRRAEL. Endocrine # Hypothyroidism: TSH 16.29, normal free T4. # Type 2 diabetes mellitus: HbA1c 8.2%.- # Episodes of hypoglycemia. - continuously monitoring blood glucose and on ISS Metabolic Hypokalemia. Hyperkalemia. Hyponatremia: D5W at 75 mL/hr per nephrology. Hypophosphatemia: given IV phosphate Nutrition: Severe protein malnutrition. Hematology # Acute on chronic anemia (hemodilution/post-surgical). # Severe thrombocytopenia, HIT # Acute DVT of right upper extremity. - Ultrasound (01/17): Partial thrombus in right internal jugular and cephalic veins. - hemoglobin today 6.9, transfused 1 more unit of PRBC 02/28 - Transfused total 8 units PRBC, 2 platelet units. - continuously monitor H&H - hold blood thinners Musculoskeletal / Skin # Rib fracture due to fall. Nutrition: TPN initiated. Bowel Regimen: As needed. GI Prophylaxis: Pantoprazole. DVT Prophylaxis: Lovenox (held/ Dc'd due to low hemoglobin). Lines / Tubes / Devices Airway: Intubated on 01/14, extubated on 02/07, reintubated on 02/25 extubated 02/28 Vascular Access: PICC line placed in right upper thigh on 01/26. Drips: Dc'd pressors and sedatives. Urinary: Leach catheter placed on 01/14, exchanged on 02/14. CARMEN drains in 1 quadrant. Goals of care addressed with patient's family members for more than 29 minutes: Full code status Care plan updated to the patient family Chris (son) on bedside and addressed all concerns Critical care time spent more than 63 minutes excluding procedures and including discussion with the family Case discussed with Dr Self and RN Plan discussed with: Patient My Orders My Orders Orders - SRIRAMA,ASHLEY RESIDENT Procedure Category Date Status Time Chest Xray 1 View XY 03/02/25 Logged 13:50 Dietary Evaluation Review Comments: Nutrition Recommendation: 1) TPN to meet at least 75% estimated needs within 7 days 2) Monitor NPO status, lab values, wt trend, I/O Expected Outcomes/Goals: To meet >75% estimated needs Lab values to improve Fu 2-3 days Is there a minimum of two crit: Yes CC Plasma Assessment Blood Product Administration S: [id number] Date of Service: Mar 02, 2025 Billing Provider: ZBIGNIEW SELF MD Common Visit Codes: [id number] CARE 30-74 MIN ASHLEY TREJO RESIDENT Mar 02, 2025 14:05 ZBIGNIEW SELF MD Mar 03, 2025 12:29
--- NOTE | 2025-03-02 14:45 | DVH ---
EXAM: XY CHEST XRAY 1 VIEW Indication: on oxygen Technique: Single frontal view of the chest was obtained Comparison: XY CHEST PORTABLE on DOS: 02/28/25, XY CHEST XRAY 1 VIEW on DOS: 02/27/25, XY CHEST XRAY 1 VIEW on DOS: 02/26/25, XY CHEST PORTABLE on DOS: 02/25/25, XY CHEST XRAY 1 VIEW on DOS: 02/22/25 FINDINGS: Lines and Tubes: Enteric tube tip projects over the expected region of the stomach. Lungs: Small left pleural effusion and pulmonary edema. No pneumothorax. Cardiomediastinal contours: Unremarkable Bones: No acute osseous abnormality. IMPRESSION: Small left pleural effusion and pulmonary edema.
--- NOTE | 2025-03-02 18:01 | DVHPN2 ---
Progress Note Date Seen: Mar 02, 2025 Has the PT tested + for MRSA If YES, has PT been informed?: No Medical Necessity Reason Pt with a Central, PICC or Fol: Yes The following are medically ne: Central Line, Leach Catheter Reason for leach catheter: Strict I&O Subjective Review of Systems: Deferred Objective vital signs Vital Sign Date Time Temp Pulse Resp B/P (MAP) Pulse Ox O2 Delivery O2 Flow Rate FiO2 03/02/25 16:00 16 96 Nasal Cannula* 3 32 03/02/25 14:27 110 186/72 03/02/25 12:00 100.0 212.0 Total Intake and Output 03/01/25 03/01/25 03/02/25 15:00 23:00 07:00 Intake Total 739.584 ml 749.00 ml 392 ml Output Total 9170 ml 3185 ml Balance 739.584 ml -8421.00 ml -2793 ml medications Current Medications Medications Dose Ordered Sig/Isaura Route Start Time Stop Time Status Last Admin Dose Admin Cefazolin Sodium 50 ml @ 100 mls/hr Q8HR IV 01/13/25 14:00 UNV Vasopressin 20 units/Sodium Chloride 100 ml @ 9 mls/hr Q11H7M IV 01/13/25 18:45 UNV Potassium Chloride 100 ml @ 50 mls/hr Q2H IV 01/16/25 12:45 01/16/25 18:44 UNV Vancomycin HCl 100 ml @ 100 mls/hr DAILY@1200 IV 01/20/25 12:00 UNV Amino Acids 0 ml @ 0 mls/hr PER PHARMACY IV 02/13/25 10:45 Ondansetron HCl 4 mg Q4HPRN PRN IV 02/21/25 09:30 02/24/25 10:45 4 MG Micafungin Sodium 100 mg/Sodium Chloride 100 ml @ 100 mls/hr DAILY IV 02/22/25 10:00 03/02/25 10:59 100 MLS/HR Trimethoprim/ Sulfamethoxazole 0 ml @ 0 mls/hr PER PHARMACY IV 02/21/25 17:00 Multi-Ingredient Ointment 1 applic DAILY TOP 02/23/25 10:00 03/02/25 11:00 1 APPLIC Hydromorphone HCl 1 mg Q4HPRN PRN IV 02/23/25 13:30 03/02/25 14:27 1 MG Acetaminophen 650 mg Q4HP PRN PO 02/24/25 02:00 Lidocaine 1 patch DAILY@0230 TOP 02/24/25 02:30 02/25/25 01:49 1 PATCH Norepinephrine Bitartrate 250 ml @ 3.75 mls/hr Q24H IV 02/25/25 11:45 02/26/25 11:51 7.5 MLS/HR Meropenem 50 ml @ 17 mls/hr Q12HR@0800,2000 IV 02/26/25 08:00 03/02/25 08:50 17 MLS/HR Acetaminophen 650 mg Q6HP PRN ND 02/26/25 09:00 Diagnostic Test (Pha) 1 strip Q4HR 02/26/25 16:00 Cancel Dextrose 50 ml UD PRN IV 02/26/25 14:15 Diagnostic Test (Pha) 1 strip IQ4HR 02/26/25 16:00 UNV Dextrose 50 ml UD PRN IV 02/26/25 16:00 UNV Trimethoprim/ Sulfamethoxazole 15 ml/Dextrose 265 ml @ 176.667 mls/hr Q8H IV 02/28/25 20:00 03/02/25 13:53 176.667 MLS/HR Fat Emulsion Intravenous 150 ml/Potassium Chloride 10 meq/ Potassium Phosphate 11 meq/ Magnesium Sulfate 4 meq/ Multivitamins 10 ml/Insulin Human Regular 10 units/ Amino Acids/ Dextrose/Purified Water 1,168.6 ml @ 49 mls/hr [id number] IV 03/01/25 22:00 03/02/25 21:59 03/01/25 21:34 49 MLS/HR Pantoprazole Sodium 40 mg DAILY IV 03/02/25 10:00 03/02/25 10:49 40 MG Diagnostic Test (Pha) 1 strip IQ4HR 03/02/25 12:00 03/02/25 13:15 1 STRIP Insulin Human Regular Q6HR SC 03/02/25 12:00 03/02/25 13:15 2 UNITS Fat Emulsion Intravenous 150 ml/Potassium Chloride 20 meq/ Potassium Phosphate 44 meq/ Magnesium Sulfate 8 meq/ Multivitamins 10 ml/Insulin Human Regular 10 units/ Amino Acids/ Dextrose/Purified Water 1,182.1 ml @ 49 mls/hr Q24H8M IV 03/02/25 22:00 03/03/25 21:59 Examination: GENERAL:Abnormal laboratory and microbiology Laboratory Tests 03/02/25 03:10 Test 03/02/25 03:10 Range/Units Serum Glucose 130 H 74-106 mg/dL Microbiology Date/Time Source Procedure Growth Status 02/25/25 21:39 Blood Blood Culture - Preliminary NO GROWTH AFTER 72 HOURS OF INCUBATION. Resulted 02/25/25 11:48 Sputum Gram Stain - Final Complete 02/25/25 11:48 Sputum Respiratory Culture - Final Complete 02/17/25 19:45 Peritoneal Fluid Gram Stain - Final Resulted 02/17/25 19:45 Body Fluid Culture - Preliminary Escherichia coli Stenotrophomonas maltophilia Resulted 02/15/25 10:12 Urine - [place] Urine Culture - Final Yeast, not Zoe albicans Complete 01/13/25 17:10 Nose MRSA Screen - Final Complete Problem List/Assessment/Plan Problem List/Assessment/Plan 80-year-old female presents to the hospital complaining of abdominal pain is diagnosed with abdominal perforation Acute kidney injury resolved Acute perforation of the abdomen / bowel ischemia s/p exlap colovesical fistula s/p OR return 02/27 History of atrial fibrillation previously on anticoagulation 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 , RA + Diabetes mellitus type 2 Hypophosphatemia /hyperkalemia-----> hypokalemia Anemia due to blood loss hypoalbuminemia high gastric output improved slightly today, TPN should continue electrolyte correction K, Mg, phos daily IVF, monitor gastric output and replace with IVF and electrolytes PRBC to keep hb> 8.0 surgery monitor UOP no indication for dialysis Plan discussed with: Patient Dietary Evaluation Review Comments: Nutrition Recommendation: 1) TPN to meet at least 75% estimated needs within 7 days 2) Monitor NPO status, lab values, wt trend, I/O Expected Outcomes/Goals: To meet >75% estimated needs Lab values to improve Fu 2-3 days Is there a minimum of two crit: Yes CC Plasma Assessment Blood Product Administration S: [id number] PATRICK RAMOS MD Mar 02, 2025 18:01
--- NOTE | 2025-03-02 19:19 | DVHPN2 ---
Progress Note Date Seen: Mar 02, 2025 Resident Creating Document: MARIAN TELLO RESIDENT Has the PT tested + for MRSA If YES, has PT been informed?: No Medical Necessity Reason Pt with a Central, PICC or Fol: Yes The following are medically ne: Central Line, Leach Catheter Reason for leach catheter: Strict I&O Subjective Review of Systems Patient seen and examined at the bedside Currently on nasal cannula, no respiratory distress noted Denied any abdominal pain Patient has a high volume suction in the NG tube, 1700 mL overnight and during the morning shift 750 mL Continue on TPN As per surgeon patient was put on sips of water and ice Objective vital signs Vital Sign Date Time Temp Pulse Resp B/P (MAP) Pulse Ox O2 Delivery O2 Flow Rate FiO2 03/02/25 18:01 100.0 97 22 119/78 (92) 98 212.0 03/02/25 18:00 Nasal Cannula* 3 32 Total Intake and Output 03/01/25 03/01/25 03/02/25 15:00 23:00 07:00 Intake Total 739.584 ml 749.00 ml 392 ml Output Total 9170 ml 3185 ml Balance 739.584 ml -8421.00 ml -2793 ml medications Current Medications Medications Dose Ordered Sig/Isaura Route Start Time Stop Time Status Last Admin Dose Admin Cefazolin Sodium 50 ml @ 100 mls/hr Q8HR IV 01/13/25 14:00 UNV Vasopressin 20 units/Sodium Chloride 100 ml @ 9 mls/hr Q11H7M IV 01/13/25 18:45 UNV Potassium Chloride 100 ml @ 50 mls/hr Q2H IV 01/16/25 12:45 01/16/25 18:44 UNV Vancomycin HCl 100 ml @ 100 mls/hr DAILY@1200 IV 01/20/25 12:00 UNV Amino Acids 0 ml @ 0 mls/hr PER PHARMACY IV 02/13/25 10:45 Ondansetron HCl 4 mg Q4HPRN PRN IV 02/21/25 09:30 02/24/25 10:45 4 MG Micafungin Sodium 100 mg/Sodium Chloride 100 ml @ 100 mls/hr DAILY IV 02/22/25 10:00 03/02/25 10:59 100 MLS/HR Trimethoprim/ Sulfamethoxazole 0 ml @ 0 mls/hr PER PHARMACY IV 02/21/25 17:00 Multi-Ingredient Ointment 1 applic DAILY TOP 02/23/25 10:00 03/02/25 11:00 1 APPLIC Hydromorphone HCl 1 mg Q4HPRN PRN IV 02/23/25 13:30 03/02/25 14:27 1 MG Acetaminophen 650 mg Q4HP PRN PO 02/24/25 02:00 Lidocaine 1 patch DAILY@0230 TOP 02/24/25 02:30 02/25/25 01:49 1 PATCH Norepinephrine Bitartrate 250 ml @ 3.75 mls/hr Q24H IV 02/25/25 11:45 02/26/25 11:51 7.5 MLS/HR Meropenem 50 ml @ 17 mls/hr Q12HR@0800,2000 IV 02/26/25 08:00 03/02/25 08:50 17 MLS/HR Acetaminophen 650 mg Q6HP PRN MA 02/26/25 09:00 Diagnostic Test (Pha) 1 strip Q4HR 02/26/25 16:00 Cancel Dextrose 50 ml UD PRN IV 02/26/25 14:15 Diagnostic Test (Pha) 1 strip IQ4HR 02/26/25 16:00 UNV Dextrose 50 ml UD PRN IV 02/26/25 16:00 UNV Trimethoprim/ Sulfamethoxazole 15 ml/Dextrose 265 ml @ 176.667 mls/hr Q8H IV 02/28/25 20:00 03/02/25 13:53 176.667 MLS/HR Fat Emulsion Intravenous 150 ml/Potassium Chloride 10 meq/ Potassium Phosphate 11 meq/ Magnesium Sulfate 4 meq/ Multivitamins 10 ml/Insulin Human Regular 10 units/ Amino Acids/ Dextrose/Purified Water 1,168.6 ml @ 49 mls/hr [id number] IV 03/01/25 22:00 03/02/25 21:59 03/01/25 21:34 49 MLS/HR Pantoprazole Sodium 40 mg DAILY IV 03/02/25 10:00 03/02/25 10:49 40 MG Diagnostic Test (Pha) 1 strip IQ4HR 03/02/25 12:00 03/02/25 13:15 1 STRIP Insulin Human Regular Q6HR SC 03/02/25 12:00 03/02/25 13:15 2 UNITS Fat Emulsion Intravenous 150 ml/Potassium Chloride 20 meq/ Potassium Phosphate 44 meq/ Magnesium Sulfate 8 meq/ Multivitamins 10 ml/Insulin Human Regular 10 units/ Amino Acids/ Dextrose/Purified Water 1,182.1 ml @ 49 mls/hr Q24H8M IV 03/02/25 22:00 03/03/25 21:59 Examination Gen - mild conjunctival pallor, no scleral icterus Skin - Patients skin is warm and dry. HEENT - normocephalic, atraumatic, dry mucous membranes. Neck - supple, no lymphadenopathy Pulmonary - B/L diminished breath sounds in the bases. cardiovascular - regular S1,S2 heard GI - soft abdomen with mild tenderness to palpation. Bowel sounds hypoactive. Status post exploratory laparotomy with the abdominal closure with a wound VAC. Right lower quadrant ileostomy draining greenish fluid. CARMEN drain has serosanguineous drainage. Neurological - patient is alert and oriented x2. laboratory and microbiology Laboratory Tests 03/02/25 03:10 Test 03/02/25 03:10 Range/Units Serum Glucose 130 H 74-106 mg/dL Microbiology Date/Time Source Procedure Growth Status 02/25/25 21:39 Blood Blood Culture - Preliminary NO GROWTH AFTER 72 HOURS OF INCUBATION. Resulted 02/25/25 11:48 Sputum Gram Stain - Final Complete 02/25/25 11:48 Sputum Respiratory Culture - Final Complete 02/17/25 19:45 Peritoneal Fluid Gram Stain - Final Resulted 02/17/25 19:45 Body Fluid Culture - Preliminary Escherichia coli Stenotrophomonas maltophilia Resulted 02/15/25 10:12 Urine - [place] Urine Culture - Final Yeast, not Zoe albicans Complete 01/13/25 17:10 Nose MRSA Screen - Final Complete Problem List/Assessment/Plan Problem List/Assessment/Plan Assessment Septic shock Peritonitis Small bowel perforation status post exploratory laparotomy #1 with the resection of perforated small bowel and enteroenterostomy 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 Rivera Plan discussed with: Patient, Other (MASHA Alberts) My Orders My Orders Orders - MARIAN TELLO Procedure Category Date Status Time Pantoprazole PHA 03/02/25 In Process (Protonix) 10:00 Dietary Evaluation Review Comments: Nutrition Recommendation: 1) TPN to meet at least 75% estimated needs within 7 days 2) Monitor NPO status, lab values, wt trend, I/O Expected Outcomes/Goals: To meet >75% estimated needs Lab values to improve Fu 2-3 days Is there a minimum of two crit: Yes CC Plasma Assessment Blood Product Administration S: [id number] MARIAN TELLO RESIDENT Mar 02, 2025 19:19
[2025-03-02] MEDS: LIDOCAINE 1% (LOCAL ANESTH.) PF 5ml SDV ID ONE (19:35)
[2025-03-02] MEDS: TPN PER PHARMACY IV NR (22:08)
[2025-03-03] VITALS (28 sets, daily range): BP systolic 103–158; BP diastolic 56–88; PULSE 97–136; RESP 13–30; TEMP 98.9–100.6; O2SAT 87–100
[2025-03-03 04:00] LABS: Hemoglobin 8.4 g/dL (12.2-16.2); Nucleated Red Blood Cells % 0.3 %
[2025-03-03 04:02] LABS: Hematocrit 23.9 % (36.0-46.0); Mean Corpuscular Hemoglobin 34.8 pg (28.0-32.0); Mean Corpuscular Volume 99.6 fL (80.0-100.0)
[2025-03-03 04:09] LABS: Anion Gap 9 (5-15); BUN/Creatinine Ratio 39.1 (10.0-20.0); Carbon Dioxide 29 mmol/L (20-31); Chloride 104 mmol/L (98-107); Magnesium 2.1 mg/dL (1.6-2.6); Potassium 4.3 mmol/L (3.5-5.1); Sodium 142 mmol/L (136-145)
[2025-03-03 04:15] LABS: Alanine Aminotransferase 176 U/L (7-40); Albumin 2.5 g/dL (3.2-4.8); Alkaline Phosphatase 417 U/L (46-116); Bilirubin, Total 2.6 mg/dL (0.2-1.0); Blood Urea Nitrogen 36 mg/dL (9-23); Calcium 8.5 mg/dL (8.7-10.4); Glucose 136 mg/dL (74-106); Total Protein 5.0 g/dL (5.7-8.2)
--- NOTE | 2025-03-03 11:21 | DVHPN2 ---
Progress Note Date Seen: Mar 03, 2025 Has the PT tested + for MRSA If YES, has PT been informed?: No Medical Necessity Reason Pt with a Central, PICC or Fol: Yes The following are medically ne: Central Line, Leach Catheter Reason for leach catheter: Strict I&O Objective vital signs Vital Sign Date Time Temp Pulse Resp B/P (MAP) Pulse Ox O2 Delivery O2 Flow Rate FiO2 03/03/25 08:25 103 17 151/82 03/03/25 08:00 97 Nasal Cannula* 3 32 03/03/25 07:00 99.3 210.7 Total Intake and Output 03/02/25 03/02/25 03/03/25 14:59 22:59 06:59 Intake Total 542 ml 658.000 ml 1059 ml Output Total 2130 ml 950 ml Balance 542 ml -1472.000 ml 109 ml medications Current Medications Medications Dose Ordered Sig/Isaura Route Start Time Stop Time Status Last Admin Dose Admin Cefazolin Sodium 50 ml @ 100 mls/hr Q8HR IV 01/13/25 14:00 UNV Vasopressin 20 units/Sodium Chloride 100 ml @ 9 mls/hr Q11H7M IV 01/13/25 18:45 UNV Potassium Chloride 100 ml @ 50 mls/hr Q2H IV 01/16/25 12:45 01/16/25 18:44 UNV Vancomycin HCl 100 ml @ 100 mls/hr DAILY@1200 IV 01/20/25 12:00 UNV Amino Acids 0 ml @ 0 mls/hr PER PHARMACY IV 02/13/25 10:45 Ondansetron HCl 4 mg Q4HPRN PRN IV 02/21/25 09:30 02/24/25 10:45 4 MG Micafungin Sodium 100 mg/Sodium Chloride 100 ml @ 100 mls/hr DAILY IV 02/22/25 10:00 03/03/25 10:31 100 MLS/HR Trimethoprim/ Sulfamethoxazole 0 ml @ 0 mls/hr PER PHARMACY IV 02/21/25 17:00 Multi-Ingredient Ointment 1 applic DAILY TOP 02/23/25 10:00 03/03/25 10:00 1 APPLIC Hydromorphone HCl 1 mg Q4HPRN PRN IV 02/23/25 13:30 03/03/25 08:25 1 MG Acetaminophen 650 mg Q4HP PRN PO 10/16/25 02:00 Lidocaine 1 patch DAILY@0230 TOP 02/24/25 02:30 03/03/25 06:51 1 PATCH Norepinephrine Bitartrate 250 ml @ 3.75 mls/hr Q24H IV 02/25/25 11:45 02/26/25 11:51 7.5 MLS/HR Meropenem 50 ml @ 17 mls/hr Q12HR@0800,2000 IV 02/26/25 08:00 03/03/25 08:24 17 MLS/HR Acetaminophen 650 mg Q6HP PRN [place] 02/26/25 09:00 Diagnostic Test (Pha) 1 strip Q4HR 02/26/25 16:00 Cancel Dextrose 50 ml UD PRN IV 02/26/25 14:15 Diagnostic Test (Pha) 1 strip IQ4HR 02/26/25 16:00 UNV Dextrose 50 ml UD PRN IV 02/26/25 16:00 UNV Trimethoprim/ Sulfamethoxazole 15 ml/Dextrose 265 ml @ 176.667 mls/hr Q8H IV 02/28/25 20:00 03/03/25 04:17 176.667 MLS/HR Pantoprazole Sodium 40 mg DAILY IV 03/02/25 10:00 03/03/25 10:31 40 MG Insulin Human Regular Q6HR SC 03/02/25 12:00 03/02/25 19:51 2 UNITS Fat Emulsion Intravenous 150 ml/Potassium Chloride 20 meq/ Potassium Phosphate 44 meq/ Magnesium Sulfate 8 meq/ Multivitamins 10 ml/Insulin Human Regular 10 units/ Amino Acids/ Dextrose/Purified Water 1,182.1 ml @ 49 mls/hr Q24H8M IV 03/02/25 22:00 03/03/25 21:59 03/02/25 22:08 49 MLS/HR Fat Emulsion Intravenous 100 ml/Potassium Chloride 20 meq/ Potassium Phosphate 22 meq/ Magnesium Sulfate 6 meq/ Multivitamins 10 ml/Insulin Human Regular 10 units/ Amino Acids/ Dextrose/Purified Water 1,126.6 ml @ 47 mls/hr [id number] IV 03/03/25 22:00 03/04/25 21:59 laboratory and microbiology Laboratory Tests 03/03/25 03:20 Test 03/03/25 03:20 Range/Units Serum Glucose 136 H 74-106 mg/dL Problem List/Assessment/Plan Problem List/Assessment/Plan 01/14/25 afebrile, low dose BP support, received transfusion, I believe her decreased hematocrit is due to hemodilution. abdomen non distended, soft, wound clean and well approximated, drainage serous . remains intubated and sedated 01/16/25 ALKALOSIS, ABDOMEN NON DISTENDED, SOFT, DRAINAGE SEROUS, WOUND CLEAN AND WELL APPROXIMATED 01/17/25 improved, thrombocytopenia possibly made worse by Fluconazole,will DC, abdomen non distended, wound well approximated without infection, TATY drainage serous, CVP 6, good urine output. 01/18/25 abg reviewed, ,abdomen soft, non distended, TATY drainage clear serous, no bowel activity, febrile, urine output ok, continues with thrombocytopenia,pt and inr slightly elevated. prognosis grave. 01/20/25remains sedated on ventilator, abdomen soft, non distended, faint bowel sounds auscultated by nurse, wound clean and well approximated, TATY drainage clear serous. continues with thrombocytopenia, still behind on intravascular volume( BUN and Creatinine elevated), i would give more IV fluids and DC vancomycin. 01/25/25 afebrile, normotensive, wound clean and well approximated, TATY drainage serous, abdomen non distended, soft, gastrografin small bowel series shows non obstructed GI tract and no evidence of extravasation. It is OK to initiate enteric feedings. 01/29/25 16 DAYS POST OPERATIVELY TRHE TATY DRAINAGE WHICH HAD CONSISTENTLY BEEN SEROUS OR SERO SANGUINEOUS HAS BECOME "DIRTY" BROWNISH DISCOLORATION, HER WOUND IS CLEAN AND WELL APPROXIMATED AND HER ABDOMEN IS SOFT AND NON DISTENDED, CT SCAN SHOWS SO0ME FLUID AND ACCUMULATION OF FLUID AROUND THE SPLEEN, WILL REQUEST CT GUIDED ASPIRATION OF SAME, WILL ORDER IRRIGATION OF DRAINS. SHE SI AFEBRILE AND MAINTAINS NORMAL BLOOD PRESSURE, HER WBC IS NORMAL. 01/30/25 improved, awake, being weaned off vent. abdomen non distended, non tender, taty drainage clearing with irrigation 02/02/25clinically unchanged, gastrografin small bowel series reported and normal, no extravasation reported, will order a follow ujp KUB for tomorrow AM 02/03/25 PATIENT HAD A GASTROGRAFIN SMALL BOWEL SERIES AND A FOLLOW UP KUB X RAYS NEITHER ONE OF WHICH SHOW EXTRAVASATION OF CONTRAST OR EVIDENCE OF FREE CONTRAST IN THE PERITONEAL CAVITY. THERE IS HOWEVER VISCOUS, BROWNISH FLUID DRAINING VIA BOTH TATY DRAINS AND THROUGH INFRAUMBILICAL PORTION OF MIDLINE WOUND, I REMOVED THE RICHIE FROM THE 3 CM SECTION OF THE INFRAUMBILICAL WOUND AND EVACUATED ABOUT 30 CC OF THIS FLUID AND INSTRUCTED THE NURSE TO PLACE A STOMA APPLIANCE ON THIS OPENING. 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 TODAY HER WBC IS ELEVATED, ABDOMEN CONTINUES TO BE NON DISTENDED, SOFT, BUT SHE DOES HAVE SLIGHT TENDERNESS IN THE PERIUMBILICAL AREA. I WILL TREAT THIS EXPECTANTLY FORM THE TIME BEING IN THE HOPE THAT THIS IS A "CONTROLLED" FISTULA AND HOPEFUL WILL HEAL SPONTANEOUSLY WITH NPO AND NUTRITIONAL SUPPORT. WILL WATCH CLOSELY, AFTER A FEW DAYS WILL GET A FISTULOGRAM TO PIN POINT THE ENTERIC ORIGIN OF THE FISTULIZATION. CONTINUE NGT SUCTION AND DRAIN IRRIGATION ORDERED02/05/25 02/05/25 remains sedated and intubated?ventilated, abdomen non distended soft, wound vac in place. TATY drainage serosanguineous 02/08/25 EXTUBATED, GOOD INSPIRATORY EFFORT, BP NML WITHOUT PRESSOR SUPPORT, ABDOMEN SOFT, NON DISTENDED, APPROPRIATELY TENDER, LABS REVIEWED. NO CHANGES TODAY OTHER THAN ALLOW ICE CHIPS PO. WILL ORDER GASTROGRAFIN SMALL BOWEL FOLLOWTHROUGH FOR Friday02/09/25 awake cooperative, wound vac in place, abdomen soft, non distended, appropriately tender, TATY drainage brownish discoloration, will irrigate, her WBC is normal and she is afebrile and normotensive. gastrografin tomorrow 02/10/25 AWAKE,COMFORTABLE, DENIES PAIN, ABDOMEN NON DISTENDED APPROPRIATELY TENDER, WOUND CLEAN AND WELL APPROXIMATED, DRAINS BEING IRRIGATED, LABS OK, GOOD URINE OUTPUT. "SURGICALLY" STABLE 02/11/25 feels well, passing flatus. is hungry, abdomen soft non distended, drainage clearing with irrigation, will wait for Gastrografin small bowel series to be completed, if normal will start po clear liquids 02/12/25 no nausea, change in TATY drainage colort, appears to contaIN, BILE, WILL DC po CLEAR LIQUIDS, CONTINUE ICE CGHIPS, SEND DRAin fluid for amylase and bilirubin, 02/13/25 states she feels well, abdomen non tender, non distended, wound clean and well approximated. drainage slightly clearer, keep npo for now, needs to resume TPN 02/14/25 PATIENT C/O BEING COLD BUT HAS NO PAIN, DRAINAGE SEEMS TO BE CLEARING, SHE HAD A BOWEL MOVEMENTS, ABDOMEN IS SOFT AND NON TENDER, NON DISTENDED, WOUND IS CLEAN AND WELL APPROXIMATED, WILL CONTINUE NPO STATUS AMYLASE ON TATY DRAINAGE FLUID IS GOING TO TAKE SEVERAL DAYS TO BECOME AVAILABLE. CONTINUE TPN 02/16/25 DENIES PAIN,STATES SHE FEELS BETTER, WOUND VAC IN PLACE, ABDOMEN NON TENDER,NON DISTENDED, TATY DRAINAGE SMALL TO MODERATE , WILL CONTINUE IRRIGATING DRAINS, WILL REQUEST GI CONSULT TO CONSIDER ENDOSCOPY. WBC NL,H/H STABLE , ALBUMIN STILL VERY LOW. , 02/17/25 CT SCAN REVIEWED, I SUSPECT THERE IS A SMALL LEAK FROM THE APPEARANCE OF IMAGING ALTHOUGH RADIOLOGIST RECOMMENDED REPEAT CT SCAN (ORDERED). THE DRAINAGE IS SMALL AMOUNT BUT NOW IT IS WITH AN ODOR, I WILL RE INSERT NGT TO ATTEMPT DECREASING THE GASTRIC CONTENTS. ABDOMEN IS SOFT, APPROPRIATELY TENDER, WOUND VAC IN PLACE 02/18/25 AFEBRILE, NORMOTENSIVE4, WBC NL, ALL IMAGING NEGATIVE, ANGIOGRAM SHOWS NO EVIDENCE OF HYPOPERFUSION, CONTRAST AND NON CONTRAST CT SCAN FAILED TO SHOW ANY EVIDENCE OF EXTRAVASATION, THE DRAINAGE CONTINUES TO BE BROWNISH DISCOLORED AND FOULS SMELLING, EXPLAINED TO PT'S SON THAT I HAVE NO EVIDENCE OF ANY GI LEAKAGE, WILL GET A GASTROGRAFIN ENEMA ON FRIDAY, I AM TRYING TO REFRAIN FROM OPERATING ON THE FRAIL ELDERLY PATIENT FOR THE THIRD TIME, SHE WILL NOT TOLERATE ANOTHYER OPERATION WELL. HER ALBUMIN REMAINS VERY LOW.WOUND VAC OK 02/19/25 feels ok,c/o being cold, abdomen soft. non distended, minimally tender, drainage seems to be little less, labs ok, continue as is 02/22/25 she feels well, abdomen is non tender, soft and non distended, drainage slightly less in volume, still discolored,gastrografin enema reviewed by me ( no radiologist/s interpretation available), she has not evacuated the gastrografin according to nurse. 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 will proceed with operation on 02/25/25 at 0715 AM. 02/27/25 SLIGHT IMPROVEMENT, ABDOMEN SOFT, NON DISTENDED, STOMA VIABLE WITHOUT FUNCTION, OK TO TRY GETTING OFF VENTILATOR. 03/01/25 extubated, conversant,oriented, abdomen non distended, appropriately tender, wound clean ans well approximated, drainage serous, stoma viable and with minimal liquid,no gas. will sips of water and ice po 03/02/25 awake comfortable, denies pain, abdomen appropriately tender, wound vac in place, afebrile, normotensive, drainage serosanguineous, cbc stable, stoma viable and with minimal output will resume irrigation of drain 03/03/25 awake ,cooperative, good inspiratory effort, afebrile, normotensive, wound covered with wound vac, drainage serous but cloudy(cultures ordered) abdomen non tender, stoma viable with minimal output. will order gastrografin ugi with small bowel follow throught for tomorow Plan discussed with: Patient Dietary Evaluation Review Comments: Nutrition Recommendation: 1) TPN to meet at least 75% estimated needs within 7 days 2) Monitor NPO status, lab values, wt trend, I/O Expected Outcomes/Goals: To meet >75% estimated needs Lab values to improve Fu 2-3 days Is there a minimum of two crit: Yes MELVA RAMESH MD Mar 03, 2025 11:20
--- NOTE | 2025-03-03 15:42 | DVHPN2 ---
Progress Note Date Seen: Mar 03, 2025 Has the PT tested + for MRSA If YES, has PT been informed?: No Medical Necessity Reason Pt with a Central, PICC or Fol: Yes The following are medically ne: Central Line, Leach Catheter Reason for leach catheter: Strict I&O Subjective Review of Systems: Deferred Objective vital signs Vital Sign Date Time Temp Pulse Resp B/P (MAP) Pulse Ox O2 Delivery O2 Flow Rate FiO2 03/03/25 15:01 99.9 100 25 120/73 (89) 97 211.8 03/03/25 14:00 Nasal Cannula* 4 36 Total Intake and Output 03/02/25 03/02/25 03/03/25 15:00 23:00 07:00 Intake Total 718.667 ml 657.333 ml 883 ml Output Total 2130 ml 950 ml Balance 718.667 ml -1472.667 ml -67 ml medications Current Medications Medications Dose Ordered Sig/Isaura Route Start Time Stop Time Status Last Admin Dose Admin Cefazolin Sodium 50 ml @ 100 mls/hr Q8HR IV 01/13/25 14:00 UNV Vasopressin 20 units/Sodium Chloride 100 ml @ 9 mls/hr Q11H7M IV 01/13/25 18:45 UNV Potassium Chloride 100 ml @ 50 mls/hr Q2H IV 01/16/25 12:45 01/16/25 18:44 UNV Vancomycin HCl 100 ml @ 100 mls/hr DAILY@1200 IV 01/20/25 12:00 UNV Amino Acids 0 ml @ 0 mls/hr PER PHARMACY IV 02/13/25 10:45 Ondansetron HCl 4 mg Q4HPRN PRN IV 02/21/25 09:30 02/24/25 10:45 4 MG Micafungin Sodium 100 mg/Sodium Chloride 100 ml @ 100 mls/hr DAILY IV 02/22/25 10:00 03/03/25 10:31 100 MLS/HR Trimethoprim/ Sulfamethoxazole 0 ml @ 0 mls/hr PER PHARMACY IV 02/21/25 17:00 Multi-Ingredient Ointment 1 applic DAILY TOP 02/23/25 10:00 03/03/25 10:00 1 APPLIC Hydromorphone HCl 1 mg Q4HPRN PRN IV 02/23/25 13:30 03/03/25 08:25 1 MG Acetaminophen 650 mg Q4HP PRN PO 02/24/25 02:00 Lidocaine 1 patch DAILY@0230 TOP 02/24/25 02:30 03/03/25 06:51 1 PATCH Norepinephrine Bitartrate 250 ml @ 3.75 mls/hr Q24H IV 02/25/25 11:45 02/26/25 11:51 7.5 MLS/HR Meropenem 50 ml @ 17 mls/hr Q12HR@0800,2000 IV 02/26/25 08:00 03/03/25 08:24 17 MLS/HR Acetaminophen 650 mg Q6HP PRN [place] 02/26/25 09:00 Diagnostic Test (Pha) 1 strip Q4HR 02/26/25 16:00 Cancel Dextrose 50 ml UD PRN IV 02/26/25 14:15 Diagnostic Test (Pha) 1 strip IQ4HR 02/26/25 16:00 UNV Dextrose 50 ml UD PRN IV 02/26/25 16:00 UNV Trimethoprim/ Sulfamethoxazole 15 ml/Dextrose 265 ml @ 176.667 mls/hr Q8H IV 02/28/25 20:00 03/03/25 11:55 176.667 MLS/HR Pantoprazole Sodium 40 mg DAILY IV 03/02/25 10:00 03/03/25 10:31 40 MG Insulin Human Regular Q6HR SC 03/02/25 12:00 03/03/25 12:05 2 UNITS Fat Emulsion Intravenous 150 ml/Potassium Chloride 20 meq/ Potassium Phosphate 44 meq/ Magnesium Sulfate 8 meq/ Multivitamins 10 ml/Insulin Human Regular 10 units/ Amino Acids/ Dextrose/Purified Water 1,182.1 ml @ 49 mls/hr Q24H8M IV 03/02/25 22:00 03/03/25 21:59 03/02/25 22:08 49 MLS/HR Fat Emulsion Intravenous 100 ml/Potassium Chloride 20 meq/ Potassium Phosphate 22 meq/ Magnesium Sulfate 6 meq/ Multivitamins 10 ml/Insulin Human Regular 10 units/ Amino Acids/ Dextrose/Purified Water 1,126.6 ml @ 47 mls/hr [id number] IV 03/03/25 22:00 03/04/25 21:59 Examination: GENERAL:Abnormal, ABDOMEN:Abnormal, SKIN:Abnormal laboratory and microbiology Laboratory Tests 03/03/25 03:20 Test 03/03/25 03:20 Range/Units Serum Glucose 136 H 74-106 mg/dL Microbiology Date/Time Source Procedure Growth Status 03/02/25 16:00 Urine - Leach [place] Urine Culture - Preliminary Resulted 03/02/25 16:00 Aspirate Gram Stain - Final Resulted 03/02/25 16:00 Aspirate Body Fluid Culture - Preliminary Resulted 02/25/25 21:39 Blood Blood Culture - Final NO GROWTH AFTER 5 DAYS OF INCUBATION. 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 will sign off defer to surgery and medicine services Plan discussed with: Patient Dietary Evaluation Review Comments: Nutrition Recommendation: 1) TPN to meet at least 75% estimated needs within 7 days 2) Monitor NPO status, lab values, wt trend, I/O Expected Outcomes/Goals: To meet >75% estimated needs Lab values to improve Fu 2-3 days Is there a minimum of two crit: Yes CC Plasma Assessment Blood Product Administration S: [id number] PATRICK RAMOS MD Mar 03, 2025 15:42
--- NOTE | 2025-03-03 18:01 | DVHPNRES ---
Progress Note Date Seen: Mar 03, 2025 Resident Creating Document: ASHLEY TREJO RESIDENT Has the PT tested + for MRSA If YES, has PT been informed?: No Medical Necessity Reason Pt with a Central, PICC or Fol: Yes The following are medically ne: Central Line, Leach Catheter Reason for leach catheter: Strict I&O Subjective Review of Systems This is a 80-year-old lady with past medical history of hypertension, AFib (on Eliquis), diabetes type 2, CKD, came to the hospital due to abdominal pain, and constipation. Admitted on 01/13/2025. Found to have peritonitis due to bowel perforation, and underwent emergent laparotomy with subsequent resection of perforated small bowel and enteroenterostomy. Due to abnormal CARMEN drainage, second exploratory laparotomy performed on 02/04 and found to have perforation near to previous perforation area, underwent resection of area with subsequent anastomosis of proximal jejunal loops. Patient seen and evaluated in bedside today. Patient is on 3 L oxygen. Continuously monitor her saturation and hemodynamic status. Patient today is more alert and is responding to commands. 20 ml suctioned with blackish fluid. wound vac changed. Patient complained of abdominal tenderness, pain, back pain which was 8/10 in intensity. Patient drinking sips of water. Patient is to get Gastrografin scan tomorrow. Objective vital signs Vital Sign Date Time Temp Pulse Resp B/P (MAP) Pulse Ox O2 Delivery O2 Flow Rate FiO2 03/03/25 16:00 21 98 Nasal Cannula* 4 36 03/03/25 16:00 102 03/03/25 16:00 99.5 132/77 (95) 211.1 Total Intake and Output 03/02/25 03/02/25 03/03/25 15:00 23:00 07:00 Intake Total 718.667 ml 657.333 ml 883 ml Output Total 2130 ml 950 ml Balance 718.667 ml -1472.667 ml -67 ml medications Current Medications Medications Dose Ordered Sig/Isaura Route Start Time Stop Time Status Last Admin Dose Admin Cefazolin Sodium 50 ml @ 100 mls/hr Q8HR IV 01/13/25 14:00 UNV Vasopressin 20 units/Sodium Chloride 100 ml @ 9 mls/hr Q11H7M IV 01/13/25 18:45 UNV Potassium Chloride 100 ml @ 50 mls/hr Q2H IV 01/16/25 12:45 01/16/25 18:44 UNV Vancomycin HCl 100 ml @ 100 mls/hr DAILY@1200 IV 01/20/25 12:00 UNV Amino Acids 0 ml @ 0 mls/hr PER PHARMACY IV 02/13/25 10:45 Ondansetron HCl 4 mg Q4HPRN PRN IV 02/21/25 09:30 02/24/25 10:45 4 MG Micafungin Sodium 100 mg/Sodium Chloride 100 ml @ 100 mls/hr DAILY IV 02/22/25 10:00 03/03/25 10:31 100 MLS/HR Trimethoprim/ Sulfamethoxazole 0 ml @ 0 mls/hr PER PHARMACY IV 02/21/25 17:00 Multi-Ingredient Ointment 1 applic DAILY TOP 02/23/25 10:00 03/03/25 10:00 1 APPLIC Hydromorphone HCl 1 mg Q4HPRN PRN IV 02/23/25 13:30 03/03/25 08:25 1 MG Acetaminophen 650 mg Q4HP PRN PO 02/24/25 02:00 Lidocaine 1 patch DAILY@0230 TOP 02/24/25 02:30 03/03/25 06:51 1 PATCH Norepinephrine Bitartrate 250 ml @ 3.75 mls/hr Q24H IV 02/25/25 11:45 02/26/25 11:51 7.5 MLS/HR Meropenem 50 ml @ 17 mls/hr Q12HR@0800,2000 IV 02/26/25 08:00 03/03/25 08:24 17 MLS/HR Acetaminophen 650 mg Q6HP PRN [place] 02/26/25 09:00 Diagnostic Test (Pha) 1 strip Q4HR 02/26/25 16:00 Cancel Dextrose 50 ml UD PRN IV 02/26/25 14:15 Diagnostic Test (Pha) 1 strip IQ4HR 02/26/25 16:00 UNV Dextrose 50 ml UD PRN IV 02/26/25 16:00 UNV Trimethoprim/ Sulfamethoxazole 15 ml/Dextrose 265 ml @ 176.667 mls/hr Q8H IV 02/28/25 20:00 03/03/25 11:55 176.667 MLS/HR Pantoprazole Sodium 40 mg DAILY IV 03/02/25 10:00 03/03/25 10:31 40 MG Insulin Human Regular Q6HR SC 03/02/25 12:00 03/03/25 12:05 2 UNITS Fat Emulsion Intravenous 150 ml/Potassium Chloride 20 meq/ Potassium Phosphate 44 meq/ Magnesium Sulfate 8 meq/ Multivitamins 10 ml/Insulin Human Regular 10 units/ Amino Acids/ Dextrose/Purified Water 1,182.1 ml @ 49 mls/hr Q24H8M IV 03/02/25 22:00 03/03/25 21:59 03/02/25 22:08 49 MLS/HR Fat Emulsion Intravenous 100 ml/Potassium Chloride 20 meq/ Potassium Phosphate 22 meq/ Magnesium Sulfate 6 meq/ Multivitamins 10 ml/Insulin Human Regular 10 units/ Amino Acids/ Dextrose/Purified Water 1,126.6 ml @ 47 mls/hr [id number] IV 03/03/25 22:00 03/04/25 21:59 Examination Pt is lying on bed General Appearance: Alert and Oriented x2 HEENT: Atraumatic, Mucous membranes moist/pink Respiratory: Clear to auscultation, Normal air movement, No added sounds Cardiovascular: Regular rate, Normal S1, Normal S2, No murmurs Abdominal: Active bowel sounds, Soft, no distention, no tenderness, colostomy bag in place with 1 CARMEN drain Extremities: There is bilateral upper extremity edema, with seeping fluid Skin: No Significant rash, except past surgical scars Neuro: more alert and oriented Nurse was there as heel padder during examination laboratory and microbiology Laboratory Tests 03/03/25 03:20 Test 03/03/25 03:20 Range/Units Serum Glucose 136 H 74-106 mg/dL Microbiology Date/Time Source Procedure Growth Status 03/02/25 16:00 Urine - Leach [place] Urine Culture - Preliminary Resulted 03/02/25 16:00 Aspirate Gram Stain - Final Resulted 03/02/25 16:00 Aspirate Body Fluid Culture - Preliminary Resulted 02/25/25 21:39 Blood Blood Culture - Final NO GROWTH AFTER 5 DAYS OF INCUBATION. Complete 02/25/25 11:48 Sputum Gram Stain - Final Complete 02/25/25 11:48 Sputum Respiratory Culture - Final Complete 01/13/25 17:10 Nose MRSA Screen - Final Complete Problem List/Assessment/Plan Problem List/Assessment/Plan Neurology # Chronic ischemic changes # Chronic Cortical atrophy - Head CT (01/29): Chronic microangiopathy and cortical atrophy. - reintubated on 02/25/25 during surgery # Extubated on 02/28 Cardiovascular # Septic shock secondary to hollow viscus perforation. # Paroxysmal atrial fibrillation with a second-degree hypercoagulable state currently NSR # Chronic diastolic heart failure with preserved EF 65% # Hypertension. - Echocardiogram (01/15): Normal LV EF (65%), mild LVH, mild LV diastolic dysfunction. - Chest X-ray: Bibasilar atelectasis. - ZEFERINO?DS?-VASc score >5 - cardiology on board - initially on Lovenox therapeutic but Dc'd due to low hemoglobin - Labetalol PRN Pulmonary # Acute hypoxic respiratory failure secondary to bilateral pleural effusion/pneumonia s/p re-intubation, status post extubation 02/28 - monitor with daily CXR - Sputum culture 01/29 Presumptive Zoe albicans and : negative - Reintubated on 02/25. - Chest Physiotherapy ongoing. - extubated today Gastrointestinal / Liver # Acute Bacterial Peritonitis due to small bowel perforation vs Perisplenic abscess. s/p multiple laparotomies # Transaminitis secondary to shock. # Anion gap metabolic acidosis due to bowel ischemia and lactic acidosis - CT abdomen/pelvis (02/16): Pneumoperitoneum, extraluminal contrast, perisplenic/subdiaphragmatic collection (7.1 1.1 cm). - Small bowel series (02/11): Normal. - Gastrografin (02/21): [place]-enteric fistula, contrast leak from distal transverse colon. Procedures: - First laparotomy (01/13): Resection of perforated small bowel, enteroenterostomy. - Second laparotomy (02/04): Resection near previous perforation, jejunal anastomosis. - Third laparotomy (02/25): Resection of distal ileum, end-to-end anastomosis, ileostomy. Cultures: - Peritoneal fluid (01/13): E. coli, Klebsiella pneumoniae (sensitive to meropenem). - Peritoneal fluid (02/17): E. coli, Stenotrophomonas maltophilia. - IR-guided pigtail drain placed; drained 50 cc purulent fluid. - CARMEN drains placed in 4 quadrants initially and now patient has only 1 CARMEN drain - Initially NPO, TPN initiated. - NG tube placed. - IV antimicrobials Bactrim, meropenem and micafungin - Initially patient is on Levofloxacin, Flagyl (02/03); Vancomycin and Meropenem (); Meropenem (); Vancomycin () then eventually switched to above antimicrobials Genitourinary / Kidney # ISRRAEL likely secondary to shock/volume depletion- resolved - Nephrology consulted for ISRRAEL. Endocrine # Hypothyroidism: TSH 16.29, normal free T4. # Type 2 diabetes mellitus: HbA1c 8.2%.- # Episodes of hypoglycemia. - continuously monitoring blood glucose and on ISS Metabolic Hypokalemia. Hyperkalemia. Hyponatremia: D5W at 75 mL/hr per nephrology. Hypophosphatemia: given IV phosphate Nutrition: Severe protein malnutrition. Hematology # Acute on chronic anemia (hemodilution/post-surgical). # Severe thrombocytopenia, HIT # Acute DVT of right upper extremity. - Ultrasound (01/17): Partial thrombus in right internal jugular and cephalic veins. - hemoglobin today 6.9, transfused 1 more unit of PRBC 02/28 - Transfused total 8 units PRBC, 2 platelet units. - continuously monitor H&H - hold blood thinners Musculoskeletal / Skin # Rib fracture due to fall. Nutrition: TPN initiated. Bowel Regimen: As needed. GI Prophylaxis: Pantoprazole. DVT Prophylaxis: Lovenox (held/ Dc'd due to low hemoglobin). Lines / Tubes / Devices Airway: Intubated on 01/14, extubated on 02/07, reintubated on 02/25 extubated 02/28 Vascular Access: PICC line placed in right upper thigh on 01/26. Drips: Dc'd pressors and sedatives. Urinary: Leach catheter placed on 01/14, exchanged on 02/14. CARMEN drains in 1 quadrant. Goals of care addressed with patient's family members for more than 29 minutes: Full code status Care plan updated to the patient family Chris (son) on bedside and addressed all concerns Critical care time spent more than 53 minutes excluding procedures and including discussion with the family Case discussed with Dr Self and RN Plan discussed with: Patient, Son Dietary Evaluation Review Comments: Nutrition Recommendation: 1) TPN to meet at least 75% estimated needs within 7 days 2) Monitor NPO status, lab values, wt trend, I/O Expected Outcomes/Goals: To meet >75% estimated needs Lab values to improve Fu 2-3 days Is there a minimum of two crit: Yes CC Plasma Assessment Blood Product Administration S: [id number] Date of Service: Mar 03, 2025 Billing Provider: ZBIGNIEW SELF MD Common Visit Codes: [id number] CARE 30-74 MIN ASHLEY TREJO RESIDENT Mar 03, 2025 18:01 ZBIGNIEW SELF MD Mar 05, 2025 12:21
--- NOTE | 2025-03-03 19:40 | DVHPN2 ---
Progress Note Date Seen: Mar 03, 2025 Resident Creating Document: MARIAN TELLO RESIDENT Has the PT tested + for MRSA If YES, has PT been informed?: No Medical Necessity Reason Pt with a Central, PICC or Fol: Yes The following are medically ne: Central Line, Leach Catheter Reason for leach catheter: Strict I&O Subjective Review of Systems Patient seen and examined at the bedside Currently on nasal cannula, no respiratory distress noted Denied any abdominal pain suction in the NG tube reduced drastically Continue on TPN As per surgeon patient was put on sips of water and ice Objective vital signs Vital Sign Date Time Temp Pulse Resp B/P (MAP) Pulse Ox O2 Delivery O2 Flow Rate FiO2 03/03/25 18:01 99.5 103 18 116/77 (90) 97 99.5 03/03/25 18:00 Nasal Cannula* 4 36 Total Intake and Output 03/02/25 03/02/25 03/03/25 15:00 23:00 07:00 Intake Total 718.667 ml 657.333 ml 883 ml Output Total 2130 ml 950 ml Balance 718.667 ml -1472.667 ml -67 ml medications Current Medications Medications Dose Ordered Sig/Isaura Route Start Time Stop Time Status Last Admin Dose Admin Cefazolin Sodium 50 ml @ 100 mls/hr Q8HR IV 01/13/25 14:00 UNV Vasopressin 20 units/Sodium Chloride 100 ml @ 9 mls/hr Q11H7M IV 01/13/25 18:45 UNV Potassium Chloride 100 ml @ 50 mls/hr Q2H IV 01/16/25 12:45 01/16/25 18:44 UNV Vancomycin HCl 100 ml @ 100 mls/hr DAILY@1200 IV 01/20/25 12:00 UNV Amino Acids 0 ml @ 0 mls/hr PER PHARMACY IV 02/13/25 10:45 Ondansetron HCl 4 mg Q4HPRN PRN IV 02/21/25 09:30 02/24/25 10:45 4 MG Micafungin Sodium 100 mg/Sodium Chloride 100 ml @ 100 mls/hr DAILY IV 02/22/25 10:00 03/03/25 10:31 100 MLS/HR Trimethoprim/ Sulfamethoxazole 0 ml @ 0 mls/hr PER PHARMACY IV 02/21/25 17:00 Multi-Ingredient Ointment 1 applic DAILY TOP 02/23/25 10:00 03/03/25 10:00 1 APPLIC Hydromorphone HCl 1 mg Q4HPRN PRN IV 02/23/25 13:30 03/03/25 08:25 1 MG Acetaminophen 650 mg Q4HP PRN PO 02/24/25 02:00 Lidocaine 1 patch DAILY@0230 TOP 02/24/25 02:30 03/03/25 06:51 1 PATCH Norepinephrine Bitartrate 250 ml @ 3.75 mls/hr Q24H IV 02/25/25 11:45 02/26/25 11:51 7.5 MLS/HR Meropenem 50 ml @ 17 mls/hr Q12HR@0800,2000 IV 02/26/25 08:00 03/03/25 08:24 17 MLS/HR Acetaminophen 650 mg Q6HP PRN [place] 02/26/25 09:00 Diagnostic Test (Pha) 1 strip Q4HR 02/26/25 16:00 Cancel Dextrose 50 ml UD PRN IV 02/26/25 14:15 Diagnostic Test (Pha) 1 strip IQ4HR 02/26/25 16:00 UNV Dextrose 50 ml UD PRN IV 02/26/25 16:00 UNV Trimethoprim/ Sulfamethoxazole 15 ml/Dextrose 265 ml @ 176.667 mls/hr Q8H IV 02/28/25 20:00 03/03/25 11:55 176.667 MLS/HR Pantoprazole Sodium 40 mg DAILY IV 03/02/25 10:00 03/03/25 10:31 40 MG Insulin Human Regular Q6HR SC 03/02/25 12:00 03/03/25 12:05 2 UNITS Fat Emulsion Intravenous 150 ml/Potassium Chloride 20 meq/ Potassium Phosphate 44 meq/ Magnesium Sulfate 8 meq/ Multivitamins 10 ml/Insulin Human Regular 10 units/ Amino Acids/ Dextrose/Purified Water 1,182.1 ml @ 49 mls/hr Q24H8M IV 03/02/25 22:00 03/03/25 21:59 03/02/25 22:08 49 MLS/HR Fat Emulsion Intravenous 100 ml/Potassium Chloride 20 meq/ Potassium Phosphate 22 meq/ Magnesium Sulfate 6 meq/ Multivitamins 10 ml/Insulin Human Regular 10 units/ Amino Acids/ Dextrose/Purified Water 1,126.6 ml @ 47 mls/hr [id number] IV 03/03/25 22:00 03/04/25 21:59 Examination Gen - mild conjunctival pallor, no scleral icterus Skin - Patients skin is warm and dry. HEENT - normocephalic, atraumatic, dry mucous membranes. Neck - supple, no lymphadenopathy Pulmonary - B/L diminished breath sounds in the bases. cardiovascular - regular S1,S2 heard GI - soft abdomen with mild tenderness to palpation. Bowel sounds hypoactive. Status post exploratory laparotomy with the abdominal closure with a wound VAC. Right lower quadrant ileostomy draining blackish fluid. CARMEN drain has serosanguineous drainage. Neurological - patient is alert and oriented x3. laboratory and microbiology Laboratory Tests 03/03/25 03:20 Test 03/03/25 03:20 Range/Units Serum Glucose 136 H 74-106 mg/dL Microbiology Date/Time Source Procedure Growth Status 03/02/25 16:00 Urine - [place] Urine Culture - Preliminary Resulted 03/02/25 16:00 Aspirate Gram Stain - Final Resulted 03/02/25 16:00 Aspirate Body Fluid Culture - Preliminary Resulted 02/25/25 21:39 Blood Blood Culture - Final NO GROWTH AFTER 5 DAYS OF INCUBATION. 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 Rivera Plan discussed with: Patient, Son, Other (MASHA Francisco) Dietary Evaluation Review Comments: Nutrition Recommendation: 1) TPN to meet at least 75% estimated needs within 7 days 2) Monitor NPO status, lab values, wt trend, I/O Expected Outcomes/Goals: To meet >75% estimated needs Lab values to improve Fu 2-3 days Is there a minimum of two crit: Yes CC Plasma Assessment Blood Product Administration S: [id number] MARIAN TELLO RESIDENT Mar 03, 2025 19:40
[2025-03-03] MEDS: TPN PER PHARMACY IV NR (21:08)
[2025-03-04] VITALS (30 sets, daily range): BP systolic 90–149; BP diastolic 44–85; PULSE 88–113; RESP 10–25; TEMP 98.1–99.3; O2SAT 93–100
[2025-03-04 04:02] LABS: Hemoglobin 8.0 g/dL (12.2-16.2)
[2025-03-04 04:05] LABS: Hematocrit 23.3 % (36.0-46.0); Mean Corpuscular Hemoglobin 34.2 pg (28.0-32.0); Mean Corpuscular Volume 99.4 fL (80.0-100.0); Nucleated Red Blood Cells % 0.2 %
[2025-03-04 04:20] LABS: Anion Gap 10 (5-15); BUN/Creatinine Ratio 39.0 (10.0-20.0); Carbon Dioxide 23 mmol/L (20-31); Chloride 106 mmol/L (98-107); Magnesium 2.1 mg/dL (1.6-2.6); Potassium 4.5 mmol/L (3.5-5.1); Sodium 139 mmol/L (136-145)
[2025-03-04 04:36] LABS: Alanine Aminotransferase 142 U/L (7-40); Albumin 2.5 g/dL (3.2-4.8); Alkaline Phosphatase 393 U/L (46-116); Bilirubin, Total 2.6 mg/dL (0.2-1.0); Blood Urea Nitrogen 41 mg/dL (9-23); Calcium 8.4 mg/dL (8.7-10.4); Glucose 107 mg/dL (74-106); Total Protein 5.1 g/dL (5.7-8.2)
--- NOTE | 2025-03-04 05:53 | DVH ---
CHEST RADIOGRAPH Indication: post extubation Technique: Single frontal view of the chest was obtained COMPARISON: XY CHEST XRAY 1 VIEW on DOS: 03/02/25, XY CHEST PORTABLE on DOS: 02/28/25, XY CHEST XRAY 1 VIEW on DOS: 02/27/25, XY CHEST XRAY 1 VIEW on DOS: 02/26/25, XY CHEST PORTABLE on DOS: 02/25/25 FINDINGS: Lines and Tubes: Enteric catheter in satisfactory position. Lungs: Pulmonary vascular congestion. Pleura: No effusion. No pneumothorax. Cardiomediastinal contours: Cardiomegaly. Bones: Unremarkable IMPRESSION: Pulmonary vascular congestion.
--- NOTE | 2025-03-04 11:54 | DVHPNRES ---
Progress Note Date Seen: Mar 04, 2025 Resident Creating Document: ASHLEY TREJO RESIDENT Has the PT tested + for MRSA If YES, has PT been informed?: No Medical Necessity Reason Pt with a Central, PICC or Fol: Yes The following are medically ne: Central Line, Leach Catheter Reason for leach catheter: Strict I&O Subjective Review of Systems This is a 80-year-old lady with past medical history of hypertension, AFib (on Eliquis), diabetes type 2, CKD, came to the hospital due to abdominal pain, and constipation. Admitted on 01/13/2025. Found to have peritonitis due to bowel perforation, and underwent emergent laparotomy with subsequent resection of perforated small bowel and enteroenterostomy. Due to abnormal CARMEN drainage, second exploratory laparotomy performed on 02/04 and found to have perforation near to previous perforation area, underwent resection of area with subsequent anastomosis of proximal jejunal loops. Patient seen and evaluated in bedside today. Patient is on 3 L oxygen. Continuously monitor her saturation and hemodynamic status. Patient today is more alert and is responding to commands. 450 ml suctioned with blackish fluid. Patient complained of abdominal tenderness, pain, back pain which was 5/10 in intensity. Patient drinking sips of water. Gastrografin scan done, pending results. Objective vital signs Vital Sign Date Time Temp Pulse Resp B/P (MAP) Pulse Ox O2 Delivery O2 Flow Rate FiO2 03/04/25 10:36 88 22 126/65 03/04/25 06:00 98.4 209.1 03/04/25 05:40 96 Nasal Cannula* 4 36 Total Intake and Output 03/03/25 03/03/25 03/04/25 15:00 23:00 07:00 Intake Total 807.000 ml 585 ml 644 ml Output Total 1005 ml 1270 ml Balance 807.000 ml -420 ml -626 ml medications Current Medications Medications Dose Ordered Sig/Isaura Route Start Time Stop Time Status Last Admin Dose Admin Cefazolin Sodium 50 ml @ 100 mls/hr Q8HR IV 01/13/25 14:00 UNV Vasopressin 20 units/Sodium Chloride 100 ml @ 9 mls/hr Q11H7M IV 01/13/25 18:45 UNV Potassium Chloride 100 ml @ 50 mls/hr Q2H IV 01/16/25 12:45 01/16/25 18:44 UNV Vancomycin HCl 100 ml @ 100 mls/hr DAILY@1200 IV 01/20/25 12:00 UNV Amino Acids 0 ml @ 0 mls/hr PER PHARMACY IV 02/13/25 10:45 Ondansetron HCl 4 mg Q4HPRN PRN IV 02/21/25 09:30 02/24/25 10:45 4 MG Micafungin Sodium 100 mg/Sodium Chloride 100 ml @ 100 mls/hr DAILY IV 02/22/25 10:00 03/04/25 10:37 100 MLS/HR Trimethoprim/ Sulfamethoxazole 0 ml @ 0 mls/hr PER PHARMACY IV 02/21/25 17:00 Multi-Ingredient Ointment 1 applic DAILY TOP 02/23/25 10:00 03/04/25 10:00 1 APPLIC Hydromorphone HCl 1 mg Q4HPRN PRN IV 02/23/25 13:30 03/04/25 10:36 1 MG Acetaminophen 650 mg Q4HP PRN PO 02/24/25 02:00 Lidocaine 1 patch DAILY@0230 TOP 02/24/25 02:30 03/04/25 02:51 1 PATCH Norepinephrine Bitartrate 250 ml @ 3.75 mls/hr Q24H IV 02/25/25 11:45 02/26/25 11:51 7.5 MLS/HR Meropenem 50 ml @ 17 mls/hr Q12HR@0800,2000 IV 02/26/25 08:00 03/04/25 08:55 17 MLS/HR Acetaminophen 650 mg Q6HP PRN [place] 02/26/25 09:00 Diagnostic Test (Pha) 1 strip Q4HR 02/26/25 16:00 Cancel Dextrose 50 ml UD PRN IV 02/26/25 14:15 Diagnostic Test (Pha) 1 strip IQ4HR 02/26/25 16:00 UNV Dextrose 50 ml UD PRN IV 02/26/25 16:00 UNV Trimethoprim/ Sulfamethoxazole 15 ml/Dextrose 265 ml @ 176.667 mls/hr Q8H IV 02/28/25 20:00 03/04/25 05:10 176.667 MLS/HR Pantoprazole Sodium 40 mg DAILY IV 03/02/25 10:00 03/04/25 10:37 40 MG Insulin Human Regular Q6HR SC 03/02/25 12:00 03/03/25 12:05 2 UNITS Fat Emulsion Intravenous 100 ml/Potassium Chloride 20 meq/ Potassium Phosphate 22 meq/ Magnesium Sulfate 6 meq/ Multivitamins 10 ml/Insulin Human Regular 10 units/ Amino Acids/ Dextrose/Purified Water 1,126.6 ml @ 47 mls/hr [id number] IV 03/03/25 22:00 03/04/25 21:59 03/03/25 21:08 47 MLS/HR Examination Pt is lying on bed General Appearance: Alert and Oriented x2 HEENT: Atraumatic, Mucous membranes moist/pink Respiratory: Clear to auscultation, Normal air movement, No added sounds Cardiovascular: Regular rate, Normal S1, Normal S2, No murmurs Abdominal: Active bowel sounds, Soft, no distention, no tenderness, colostomy bag in place with 1 CARMEN drain Extremities: There is bilateral upper extremity edema, with seeping fluid Skin: No Significant rash, except past surgical scars Neuro: more alert and oriented Nurse was there as accountant property during examination laboratory and microbiology Laboratory Tests 03/04/25 02:50 Test 03/04/25 02:50 Range/Units Serum Glucose 107 H 74-106 mg/dL Microbiology Date/Time Source Procedure Growth Status 03/02/25 16:00 Urine - [place] Urine Culture - Preliminary Resulted 03/02/25 16:00 Aspirate Gram Stain - Final Resulted 03/02/25 16:00 Aspirate Body Fluid Culture - Preliminary Resulted 02/25/25 21:39 Blood Blood Culture - Final NO GROWTH AFTER 5 DAYS OF INCUBATION. Complete 02/25/25 11:48 Sputum Gram Stain - Final Complete 02/25/25 11:48 Sputum Respiratory Culture - Final Complete 01/13/25 17:10 Nose MRSA Screen - Final Complete Problem List/Assessment/Plan Problem List/Assessment/Plan Neurology # Chronic ischemic changes # Chronic Cortical atrophy - Head CT (01/29): Chronic microangiopathy and cortical atrophy. - reintubated on 02/25/25 during surgery # Extubated on 02/28 Cardiovascular # Septic shock secondary to hollow viscus perforation. # Paroxysmal atrial fibrillation with a second-degree hypercoagulable state currently NSR # Chronic diastolic heart failure with preserved EF 65% # Hypertension. - Echocardiogram (01/15): Normal LV EF (65%), mild LVH, mild LV diastolic dysfunction. - Chest X-ray: Bibasilar atelectasis. - ZEFERINO?DS?-VASc score >5 - cardiology on board - initially on Lovenox therapeutic but Dc'd due to low hemoglobin - Labetalol PRN Pulmonary # Acute hypoxic respiratory failure secondary to bilateral pleural effusion/pneumonia s/p re-intubation, status post extubation 02/28 - monitor with daily CXR - Sputum culture 01/29 Presumptive Zoe albicans and : negative - Reintubated on 02/25. - Chest Physiotherapy ongoing. - extubated today Gastrointestinal / Liver # Acute Bacterial Peritonitis due to small bowel perforation vs Perisplenic abscess. s/p multiple laparotomies # Transaminitis secondary to shock. # Anion gap metabolic acidosis due to bowel ischemia and lactic acidosis - CT abdomen/pelvis (02/16): Pneumoperitoneum, extraluminal contrast, perisplenic/subdiaphragmatic collection (7.1 1.1 cm). - Small bowel series (02/11): Normal. 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 Procedures: - First laparotomy (01/13): Resection of perforated small bowel, enteroenterostomy. - Second laparotomy (02/04): Resection near previous perforation, jejunal anastomosis. - Third laparotomy (02/25): Resection of distal ileum, end-to-end anastomosis, ileostomy. Cultures: - Peritoneal fluid (01/13): E. coli, Klebsiella pneumoniae (sensitive to meropenem). - Peritoneal fluid (02/17): E. coli, Stenotrophomonas maltophilia. - IR-guided pigtail drain placed; drained 50 cc purulent fluid. - CARMEN drains placed in 4 quadrants initially and now patient has only 1 CARMEN drain - Initially NPO, TPN initiated. - NG tube placed. - IV antimicrobials Bactrim, meropenem and micafungin - Initially patient is on Levofloxacin, Flagyl (02/03); Vancomycin and Meropenem (); Meropenem (); Vancomycin () then eventually switched to above antimicrobials Genitourinary / Kidney # ISRRAEL likely secondary to shock/volume depletion- resolved - Nephrology consulted for ISRRAEL. Endocrine # Hypothyroidism: TSH 16.29, normal free T4. # Type 2 diabetes mellitus: HbA1c 8.2%.- # Episodes of hypoglycemia. - continuously monitoring blood glucose and on ISS Metabolic Hypokalemia. Hyperkalemia. Hyponatremia: D5W at 75 mL/hr per nephrology. Hypophosphatemia: given IV phosphate Nutrition: Severe protein malnutrition. Hematology # Acute on chronic anemia (hemodilution/post-surgical). # Severe thrombocytopenia, HIT # Acute DVT of right upper extremity. - Ultrasound (01/17): Partial thrombus in right internal jugular and cephalic veins. - hemoglobin today 6.9, transfused 1 more unit of PRBC 02/28 - Transfused total 8 units PRBC, 2 platelet units. - continuously monitor H&H - hold blood thinners Musculoskeletal / Skin # Rib fracture due to fall. Nutrition: TPN initiated. Bowel Regimen: As needed. GI Prophylaxis: Pantoprazole. DVT Prophylaxis: Lovenox (held/ Dc'd due to low hemoglobin). Lines / Tubes / Devices Airway: Intubated on 01/14, extubated on 02/07, reintubated on 02/25 extubated 02/28 Vascular Access: PICC line placed in right upper thigh on 01/26. Drips: Dc'd pressors and sedatives. Urinary: Leach catheter placed on 01/14, exchanged on 02/14. CARMEN drains in 1 quadrant. Goals of care addressed with patient's family members for more than 29 minutes: Full code status Care plan updated to the patient family Chris (son) on bedside and addressed all concerns Critical care time spent more than 83 minutes excluding procedures and including discussion with the family Case discussed with Dr Reed and RN Plan discussed with: Patient, Son My Orders My Orders Orders - ASHLEY TREJO RESIDENT Procedure Category Date Status Time Chest Xray 1 View XY 03/04/25 Resulted 04:00 Dietary Evaluation Review Comments: Nutrition Recommendation: 1) TPN to meet at least 75% estimated needs within 7 days 2) Monitor NPO status, lab values, wt trend, I/O Expected Outcomes/Goals: To meet >75% estimated needs Lab values to improve Fu 2-3 days Is there a minimum of two crit: Yes CC Plasma Assessment Blood Product Administration S: [id number] ASHLEY TREJO RESIDENT Mar 04, 2025 11:54
--- NOTE | 2025-03-04 12:07 | DVHPN2 ---
Progress Note Date Seen: Mar 04, 2025 Has the PT tested + for MRSA If YES, has PT been informed?: No Medical Necessity Reason Pt with a Central, PICC or Fol: Yes The following are medically ne: Central Line, Leach Catheter Reason for leach catheter: Strict I&O Objective vital signs Vital Sign Date Time Temp Pulse Resp B/P (MAP) Pulse Ox O2 Delivery O2 Flow Rate FiO2 03/04/25 10:36 88 22 126/65 03/04/25 06:00 98.4 209.1 03/04/25 05:40 96 Nasal Cannula* 4 36 Total Intake and Output 03/03/25 03/03/25 03/04/25 14:59 22:59 06:59 Intake Total 807.000 ml 587 ml 691 ml Output Total 1005 ml 1270 ml Balance 807.000 ml -418 ml -579 ml medications Current Medications Medications Dose Ordered Sig/Isaura Route Start Time Stop Time Status Last Admin Dose Admin Cefazolin Sodium 50 ml @ 100 mls/hr Q8HR IV 01/13/25 14:00 UNV Vasopressin 20 units/Sodium Chloride 100 ml @ 9 mls/hr Q11H7M IV 01/13/25 18:45 UNV Potassium Chloride 100 ml @ 50 mls/hr Q2H IV 01/16/25 12:45 01/16/25 18:44 UNV Vancomycin HCl 100 ml @ 100 mls/hr DAILY@1200 IV 01/20/25 12:00 UNV Amino Acids 0 ml @ 0 mls/hr PER PHARMACY IV 02/13/25 10:45 Ondansetron HCl 4 mg Q4HPRN PRN IV 02/21/25 09:30 02/24/25 10:45 4 MG Micafungin Sodium 100 mg/Sodium Chloride 100 ml @ 100 mls/hr DAILY IV 02/22/25 10:00 03/04/25 10:37 100 MLS/HR Trimethoprim/ Sulfamethoxazole 0 ml @ 0 mls/hr PER PHARMACY IV 02/21/25 17:00 Multi-Ingredient Ointment 1 applic DAILY TOP 02/23/25 10:00 03/04/25 10:00 1 APPLIC Hydromorphone HCl 1 mg Q4HPRN PRN IV 02/23/25 13:30 03/04/25 10:36 1 MG Acetaminophen 650 mg Q4HP PRN PO 02/24/25 02:00 Lidocaine 1 patch DAILY@0230 TOP 02/24/25 02:30 03/04/25 02:51 1 PATCH Norepinephrine Bitartrate 250 ml @ 3.75 mls/hr Q24H IV 02/25/25 11:45 02/26/25 11:51 7.5 MLS/HR Meropenem 50 ml @ 17 mls/hr Q12HR@0800,2000 IV 02/26/25 08:00 03/04/25 08:55 17 MLS/HR Acetaminophen 650 mg Q6HP PRN [place] 02/26/25 09:00 Diagnostic Test (Pha) 1 strip Q4HR 02/26/25 16:00 Cancel Dextrose 50 ml UD PRN IV 02/26/25 14:15 Diagnostic Test (Pha) 1 strip IQ4HR 02/26/25 16:00 UNV Dextrose 50 ml UD PRN IV 02/26/25 16:00 UNV Trimethoprim/ Sulfamethoxazole 15 ml/Dextrose 265 ml @ 176.667 mls/hr Q8H IV 02/28/25 20:00 03/04/25 05:10 176.667 MLS/HR Pantoprazole Sodium 40 mg DAILY IV 03/02/25 10:00 03/04/25 10:37 40 MG Insulin Human Regular Q6HR SC 03/02/25 12:00 03/03/25 12:05 2 UNITS Fat Emulsion Intravenous 100 ml/Potassium Chloride 20 meq/ Potassium Phosphate 22 meq/ Magnesium Sulfate 6 meq/ Multivitamins 10 ml/Insulin Human Regular 10 units/ Amino Acids/ Dextrose/Purified Water 1,126.6 ml @ 47 mls/hr [id number] IV 03/03/25 22:00 03/04/25 21:59 03/03/25 21:08 47 MLS/HR laboratory and microbiology Laboratory Tests 03/04/25 02:50 Test 03/04/25 02:50 Range/Units Serum Glucose 107 H 74-106 mg/dL Problem List/Assessment/Plan Problem List/Assessment/Plan 01/14/25 afebrile, low dose BP support, received transfusion, I believe her decreased hematocrit is due to hemodilution. abdomen non distended, soft, wound clean and well approximated, drainage serous . remains intubated and sedated 01/16/25 ALKALOSIS, ABDOMEN NON DISTENDED, SOFT, DRAINAGE SEROUS, WOUND CLEAN AND WELL APPROXIMATED 01/17/25 improved, thrombocytopenia possibly made worse by Fluconazole,will DC, abdomen non distended, wound well approximated without infection, TATY drainage serous, CVP 6, good urine output. 01/18/25 abg reviewed, ,abdomen soft, non distended, TATY drainage clear serous, no bowel activity, febrile, urine output ok, continues with thrombocytopenia,pt and inr slightly elevated. prognosis grave. 01/20/25remains sedated on ventilator, abdomen soft, non distended, faint bowel sounds auscultated by nurse, wound clean and well approximated, TATY drainage clear serous. continues with thrombocytopenia, still behind on intravascular volume( BUN and Creatinine elevated), i would give more IV fluids and DC vancomycin. 01/25/25 afebrile, normotensive, wound clean and well approximated, TATY drainage serous, abdomen non distended, soft, gastrografin small bowel series shows non obstructed GI tract and no evidence of extravasation. It is OK to initiate enteric feedings. 01/29/25 16 DAYS POST OPERATIVELY TRHE TATY DRAINAGE WHICH HAD CONSISTENTLY BEEN SEROUS OR SERO SANGUINEOUS HAS BECOME "DIRTY" BROWNISH DISCOLORATION, HER WOUND IS CLEAN AND WELL APPROXIMATED AND HER ABDOMEN IS SOFT AND NON DISTENDED, CT SCAN SHOWS SO0ME FLUID AND ACCUMULATION OF FLUID AROUND THE SPLEEN, WILL REQUEST CT GUIDED ASPIRATION OF SAME, WILL ORDER IRRIGATION OF DRAINS. SHE SI AFEBRILE AND MAINTAINS NORMAL BLOOD PRESSURE, HER WBC IS NORMAL. 01/30/25 improved, awake, being weaned off vent. abdomen non distended, non tender, taty drainage clearing with irrigation 02/02/25clinically unchanged, gastrografin small bowel series reported and normal, no extravasation reported, will order a follow ujp KUB for tomorrow AM 02/03/25 PATIENT HAD A GASTROGRAFIN SMALL BOWEL SERIES AND A FOLLOW UP KUB X RAYS NEITHER ONE OF WHICH SHOW EXTRAVASATION OF CONTRAST OR EVIDENCE OF FREE CONTRAST IN THE PERITONEAL CAVITY. THERE IS HOWEVER VISCOUS, BROWNISH FLUID DRAINING VIA BOTH TATY DRAINS AND THROUGH INFRAUMBILICAL PORTION OF MIDLINE WOUND, I REMOVED THE RICHIE FROM THE 3 CM SECTION OF THE INFRAUMBILICAL WOUND AND EVACUATED ABOUT 30 CC OF THIS FLUID AND INSTRUCTED THE NURSE TO PLACE A STOMA APPLIANCE ON THIS OPENING. 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 TODAY HER WBC IS ELEVATED, ABDOMEN CONTINUES TO BE NON DISTENDED, SOFT, BUT SHE DOES HAVE SLIGHT TENDERNESS IN THE PERIUMBILICAL AREA. I WILL TREAT THIS EXPECTANTLY FORM THE TIME BEING IN THE HOPE THAT THIS IS A "CONTROLLED" FISTULA AND HOPEFUL WILL HEAL SPONTANEOUSLY WITH NPO AND NUTRITIONAL SUPPORT. WILL WATCH CLOSELY, AFTER A FEW DAYS WILL GET A FISTULOGRAM TO PIN POINT THE ENTERIC ORIGIN OF THE FISTULIZATION. CONTINUE NGT SUCTION AND DRAIN IRRIGATION ORDERED02/05/25 02/05/25 remains sedated and intubated?ventilated, abdomen non distended soft, wound vac in place. TATY drainage serosanguineous 02/08/25 EXTUBATED, GOOD INSPIRATORY EFFORT, BP NML WITHOUT PRESSOR SUPPORT, ABDOMEN SOFT, NON DISTENDED, APPROPRIATELY TENDER, LABS REVIEWED. NO CHANGES TODAY OTHER THAN ALLOW ICE CHIPS PO. WILL ORDER GASTROGRAFIN SMALL BOWEL FOLLOWTHROUGH FOR Friday02/09/25 awake cooperative, wound vac in place, abdomen soft, non distended, appropriately tender, TTAY drainage brownish discoloration, will irrigate, her WBC is normal and she is afebrile and normotensive. gastrografin tomorrow 02/10/25 AWAKE,COMFORTABLE, DENIES PAIN, ABDOMEN NON DISTENDED APPROPRIATELY TENDER, WOUND CLEAN AND WELL APPROXIMATED, DRAINS BEING IRRIGATED, LABS OK, GOOD URINE OUTPUT. "SURGICALLY" STABLE 02/11/25 feels well, passing flatus. is hungry, abdomen soft non distended, drainage clearing with irrigation, will wait for Gastrografin small bowel series to be completed, if normal will start po clear liquids 02/12/25 no nausea, change in TATY drainage colort, appears to contaIN, BILE, WILL DC po CLEAR LIQUIDS, CONTINUE ICE CGHIPS, SEND DRAin fluid for amylase and bilirubin, 02/13/25 states she feels well, abdomen non tender, non distended, wound clean and well approximated. drainage slightly clearer, keep npo for now, needs to resume TPN 02/14/25 PATIENT C/O BEING COLD BUT HAS NO PAIN, DRAINAGE SEEMS TO BE CLEARING, SHE HAD A BOWEL MOVEMENTS, ABDOMEN IS SOFT AND NON TENDER, NON DISTENDED, WOUND IS CLEAN AND WELL APPROXIMATED, WILL CONTINUE NPO STATUS AMYLASE ON TATY DRAINAGE FLUID IS GOING TO TAKE SEVERAL DAYS TO BECOME AVAILABLE. CONTINUE TPN 02/16/25 DENIES PAIN,STATES SHE FEELS BETTER, WOUND VAC IN PLACE, ABDOMEN NON TENDER,NON DISTENDED, TATY DRAINAGE SMALL TO MODERATE , WILL CONTINUE IRRIGATING DRAINS, WILL REQUEST GI CONSULT TO CONSIDER ENDOSCOPY. WBC NL,H/H STABLE , ALBUMIN STILL VERY LOW. , 02/17/25 CT SCAN REVIEWED, I SUSPECT THERE IS A SMALL LEAK FROM THE APPEARANCE OF IMAGING ALTHOUGH RADIOLOGIST RECOMMENDED REPEAT CT SCAN (ORDERED). THE DRAINAGE IS SMALL AMOUNT BUT NOW IT IS WITH AN ODOR, I WILL RE INSERT NGT TO ATTEMPT DECREASING THE GASTRIC CONTENTS. ABDOMEN IS SOFT, APPROPRIATELY TENDER, WOUND VAC IN PLACE 02/18/25 AFEBRILE, NORMOTENSIVE4, WBC NL, ALL IMAGING NEGATIVE, ANGIOGRAM SHOWS NO EVIDENCE OF HYPOPERFUSION, CONTRAST AND NON CONTRAST CT SCAN FAILED TO SHOW ANY EVIDENCE OF EXTRAVASATION, THE DRAINAGE CONTINUES TO BE BROWNISH DISCOLORED AND FOULS SMELLING, EXPLAINED TO PT'S SON THAT I HAVE NO EVIDENCE OF ANY GI LEAKAGE, WILL GET A GASTROGRAFIN ENEMA ON FRIDAY, I AM TRYING TO REFRAIN FROM OPERATING ON THE FRAIL ELDERLY PATIENT FOR THE THIRD TIME, SHE WILL NOT TOLERATE ANOTHYER OPERATION WELL. HER ALBUMIN REMAINS VERY LOW.WOUND VAC OK 02/19/25 feels ok,c/o being cold, abdomen soft. non distended, minimally tender, drainage seems to be little less, labs ok, continue as is 02/22/25 she feels well, abdomen is non tender, soft and non distended, drainage slightly less in volume, still discolored,gastrografin enema reviewed by me ( no radiologist/s interpretation available), she has not evacuated the gastrografin according to nurse. 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 will proceed with operation on 02/25/25 at 0715 AM. 02/27/25 SLIGHT IMPROVEMENT, ABDOMEN SOFT, NON DISTENDED, STOMA VIABLE WITHOUT FUNCTION, OK TO TRY GETTING OFF VENTILATOR. 03/01/25 extubated, conversant,oriented, abdomen non distended, appropriately tender, wound clean ans well approximated, drainage serous, stoma viable and with minimal liquid,no gas. will sips of water and ice po 03/02/25 awake comfortable, denies pain, abdomen appropriately tender, wound vac in place, afebrile, normotensive, drainage serosanguineous, cbc stable, stoma viable and with minimal output will resume irrigation of drain 03/03/25 awake ,cooperative, good inspiratory effort, afebrile, normotensive, wound covered with wound vac, drainage serous but cloudy(cultures ordered) abdomen non tender, stoma viable with minimal output. will order gastrografin ugi with small bowel follow throught for tomorow 03/04/25 vital signs stable, good urine output, wound vac ok, abdomen non tender. Xray pending Plan discussed with: Patient, Son, Other Dietary Evaluation Review Comments: Nutrition Recommendation: 1) TPN to meet at least 75% estimated needs within 7 days 2) Monitor NPO status, lab values, wt trend, I/O Expected Outcomes/Goals: To meet >75% estimated needs Lab values to improve Fu 2-3 days Is there a minimum of two crit: Yes MELVA RAMESH MD Mar 04, 2025 12:07
--- NOTE | 2025-03-04 15:16 | DVH ---
XY UGI WITH GASTROGRAFIN HISTORY: f/u bowel resection, ileostomy COMPARISON: XY SMALL BOWEL SERIES-W GASTROGRA on DOS: 02/11/25, XY SMALL BOWEL SERIES-W GASTROGRA on D OS: 02/02/25, XY SMALL BOWEL SERIES-W GASTROGRA on DOS: 01/24/25 PROCEDURE: A professional sports scout radiograph was obtained prior to the procedure. Gastrografin was administered via enteric tube, and radiographs were obtained under intermittent fluoroscopic observation. Total fluoro scopic time was 0.7 minutes. FINDINGS: The professional sports scout image demonstrates an enteric tube in the stomach , some residual contrast in the rectum, a nd a left sided surgical drain. Bowel lilly are seen. Contrast visualized opacifying the stomach and duodenum. However contrast extravasation is seen in th e proximal small bowel, possibly left sided jejunum near the surgical drain can be seen with a leak. Esophageal reflux was demonstrated during this exam. IMPRESSION: Contrast extravasation is seen in the proximal small bowel, possibly left sided jejunum near the surg ical drain can be seen with a leak.
--- NOTE | 2025-03-04 16:46 | DVHPN2 ---
Progress Note Date Seen: Mar 04, 2025 Resident Creating Document: MARIAN TELLO RESIDENT Has the PT tested + for MRSA If YES, has PT been informed?: No Medical Necessity Reason Pt with a Central, PICC or Fol: Yes The following are medically ne: Central Line, Leach Catheter Reason for leach catheter: Strict I&O Subjective Review of Systems Patient seen and examined at the bedside Currently on nasal cannula, no respiratory distress noted Denied any abdominal pain suction in the NG tube for 300 mL yesterday overnight and 200 mL during the day shift Continue on TPN Tolerating sips of water and ice chips Objective vital signs Vital Sign Date Time Temp Pulse Resp B/P (MAP) Pulse Ox O2 Delivery O2 Flow Rate FiO2 03/04/25 14:00 95 03/04/25 14:00 16 100 Nasal Cannula* 2 28 03/04/25 13:00 98.2 138/67 (90) 208.8 Total Intake and Output 03/03/25 03/03/25 03/04/25 15:00 23:00 07:00 Intake Total 807.000 ml 585 ml 691 ml Output Total 1005 ml 1270 ml Balance 807.000 ml -420 ml -579 ml medications Current Medications Medications Dose Ordered Sig/Isaura Route Start Time Stop Time Status Last Admin Dose Admin Cefazolin Sodium 50 ml @ 100 mls/hr Q8HR IV 01/13/25 14:00 UNV Vasopressin 20 units/Sodium Chloride 100 ml @ 9 mls/hr Q11H7M IV 01/13/25 18:45 UNV Potassium Chloride 100 ml @ 50 mls/hr Q2H IV 01/16/25 12:45 01/16/25 18:44 UNV Vancomycin HCl 100 ml @ 100 mls/hr DAILY@1200 IV 01/20/25 12:00 UNV Amino Acids 0 ml @ 0 mls/hr PER PHARMACY IV 02/13/25 10:45 Ondansetron HCl 4 mg Q4HPRN PRN IV 02/21/25 09:30 02/24/25 10:45 4 MG Micafungin Sodium 100 mg/Sodium Chloride 100 ml @ 100 mls/hr DAILY IV 02/22/25 10:00 03/04/25 10:37 100 MLS/HR Trimethoprim/ Sulfamethoxazole 0 ml @ 0 mls/hr PER PHARMACY IV 02/21/25 17:00 Multi-Ingredient Ointment 1 applic DAILY TOP 02/23/25 10:00 03/04/25 10:00 1 APPLIC Hydromorphone HCl 1 mg Q4HPRN PRN IV 02/23/25 13:30 03/04/25 10:36 1 MG Acetaminophen 650 mg Q4HP PRN PO 02/24/25 02:00 Lidocaine 1 patch DAILY@0230 TOP 02/24/25 02:30 03/04/25 02:51 1 PATCH Norepinephrine Bitartrate 250 ml @ 3.75 mls/hr Q24H IV 02/25/25 11:45 02/26/25 11:51 7.5 MLS/HR Meropenem 50 ml @ 17 mls/hr Q12HR@0800,2000 IV 02/26/25 08:00 03/04/25 08:55 17 MLS/HR Acetaminophen 650 mg Q6HP PRN NV 02/26/25 09:00 Diagnostic Test (Pha) 1 strip Q4HR 02/26/25 16:00 Cancel Dextrose 50 ml UD PRN IV 02/26/25 14:15 Diagnostic Test (Pha) 1 strip IQ4HR 02/26/25 16:00 UNV Dextrose 50 ml UD PRN IV 02/26/25 16:00 UNV Trimethoprim/ Sulfamethoxazole 15 ml/Dextrose 265 ml @ 176.667 mls/hr Q8H IV 02/28/25 20:00 03/04/25 12:04 176.667 MLS/HR Pantoprazole Sodium 40 mg DAILY IV 03/02/25 10:00 03/04/25 10:37 40 MG Insulin Human Regular Q6HR SC 03/02/25 12:00 03/03/25 12:05 2 UNITS Fat Emulsion Intravenous 100 ml/Potassium Chloride 20 meq/ Potassium Phosphate 22 meq/ Magnesium Sulfate 6 meq/ Multivitamins 10 ml/Insulin Human Regular 10 units/ Amino Acids/ Dextrose/Purified Water 1,126.6 ml @ 47 mls/hr [id number] IV 03/03/25 22:00 03/04/25 21:59 03/03/25 21:08 47 MLS/HR Fat Emulsion Intravenous 100 ml/Sodium Acetate 10 meq/Potassium Chloride 10 meq/ Potassium Phosphate 11 meq/ Calcium Gluconate 2.3 meq/Magnesium Sulfate 6 meq/ Multivitamins 10 ml/Insulin Human Regular 10 units/ Amino Acids/ Dextrose/Purified Water 1,129.0462 ml @ 47 mls/hr Q24H2M IV 03/04/25 22:00 03/05/25 21:59 Examination Gen - mild conjunctival pallor, no scleral icterus Skin - Patients skin is warm and dry. HEENT - normocephalic, atraumatic, dry mucous membranes. Neck - supple, no lymphadenopathy Pulmonary - B/L diminished breath sounds in the bases. cardiovascular - regular S1,S2 heard GI - soft abdomen without tenderness. Bowel sounds hypoactive. Status post exploratory laparotomy with the abdominal closure with a wound VAC. Right lower quadrant ileostomy draining blackish fluid. CARMEN drain has serosanguineous drainage. Neurological - patient is alert and oriented x3. laboratory and microbiology Laboratory Tests 03/04/25 02:50 Test 03/04/25 02:50 Range/Units Serum Glucose 107 H 74-106 mg/dL Microbiology Date/Time Source Procedure Growth Status 03/02/25 16:00 Urine - [place] Urine Culture - Preliminary Resulted 03/02/25 16:00 Aspirate Gram Stain - Final Resulted 03/02/25 16:00 Aspirate Body Fluid Culture - Preliminary Resulted 02/25/25 21:39 Blood Blood Culture - Final NO GROWTH AFTER 5 DAYS OF INCUBATION. 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 Rivera Plan discussed with: Patient, Other (MASHA Francisco) Dietary Evaluation Review Comments: Nutrition Recommendation: 1) TPN to meet at least 75% estimated needs within 7 days 2) Monitor NPO status, lab values, wt trend, I/O Expected Outcomes/Goals: To meet >75% estimated needs Lab values to improve Fu 2-3 days Is there a minimum of two crit: Yes CC Plasma Assessment Blood Product Administration S: [id number] MARIAN TELLO RESIDENT Mar 04, 2025 16:46
[2025-03-04] MEDS: GASTROGRAFIN 120 ML SOL ONE (20:37)
--- NOTE | 2025-03-04 23:07 | DVHPN2 ---
Subjective DOS: 03/04/2025 Patient seen and examined at bedside. Remains on supplemental oxygen Overnight events reviewed. HPI: A 80-year-old woman with past medical history of diabetes mellitus who presented to the ED on 01/13/25 with c/o abdominal pain x4 days. Patient reported 8 - 9/10 pain that was sharp and constant, throughout her abdomen. She did note pain medications make it better. Patient admitted to being noncompliant with her Eliquis for the past 2 weeks. Patient denied any fever, chills, chest pain, shortness of breath, or other acute complaints. She reported falling on her left side on January 06, 2025. Patient does not use home oxygen. Patient was admitted for further care, subsequently found to have perforated bowel and underwent exploratory laparotomy with repair of bowel perforation. Pulmonary consultation was requested for evaluation and management due to acute hypoxic respiratory failure requiring mechanical ventilator. Past Medical History: Diabetes mellitus Past Surgical History: , Hernia Repair Medications: Reviewed. Allergies: No known drug allergies. Family History: Arthritis. No family history of premature CAD. No family history of lung disorders. Social History: Nonsmoker. No alcohol or illicit drug use. Reviewed: Care Plan, H&P Changes from previous H/P or p: Changes Gastrointestinal: Abdominal Pain Objective Vitals Vital Signs Date Time Temp Pulse Resp B/P (MAP) Pulse Ox O2 Delivery O2 Flow Rate FiO2 03/04/25 21:00 101 22 122/45 03/04/25 19:00 100 03/04/25 18:00 Nasal Cannula* 1 24 03/04/25 16:01 98.6 98.6 Intake/Output Intake and Output 03/04/25 07:00 Intake Total 2083.000 ml Output Total 2275 ml Balance -192.000 ml Intake Oral 30 ml IV Total 2053.000 ml Output Urine Total 1450 ml Stool Total 120 ml Gastric Drainage Total 310 ml Other 395 ml General Appearance: Alert, Oriented X3, No acute distress, Other HEENT: Atraumatic, Mucous membr. moist/pink Neck: Supple Lungs: Clear to auscultation, Other (Decreased air entry bilaterally) Cardiovascular: Regular rate, Normal S1, Normal S2, No murmurs, Gallops, Rubs Abdomen: Normal bowel sounds, Soft, No tenderness Extremities: No clubbing, No cyanosis, No edema Neuro: Strength at 5/5 X4 ext, Sensation intact, Cranial nerves 3-12 NL Psych/Mental Status: Mental status NL, Mood NL Medications Current Medications Medications Dose Ordered Sig/Isaura Route Start Time Stop Time Status Last Admin Dose Admin Cefazolin Sodium 50 ml @ 100 mls/hr Q8HR IV 01/13/25 14:00 UNV Vasopressin 20 units/Sodium Chloride 100 ml @ 9 mls/hr Q11H7M IV 01/13/25 18:45 UNV Potassium Chloride 100 ml @ 50 mls/hr Q2H IV 01/16/25 12:45 01/16/25 18:44 UNV Vancomycin HCl 100 ml @ 100 mls/hr DAILY@1200 IV 01/20/25 12:00 UNV Amino Acids 0 ml @ 0 mls/hr PER PHARMACY IV 02/13/25 10:45 Ondansetron HCl 4 mg Q4HPRN PRN IV 02/21/25 09:30 02/24/25 10:45 4 MG Micafungin Sodium 100 mg/Sodium Chloride 100 ml @ 100 mls/hr DAILY IV 02/22/25 10:00 03/04/25 10:37 100 MLS/HR Trimethoprim/ Sulfamethoxazole 0 ml @ 0 mls/hr PER PHARMACY IV 02/21/25 17:00 Multi-Ingredient Ointment 1 applic DAILY TOP 02/23/25 10:00 03/04/25 10:00 1 APPLIC Hydromorphone HCl 1 mg Q4HPRN PRN IV 02/23/25 13:30 03/04/25 21:00 1 MG Acetaminophen 650 mg Q4HP PRN PO 02/24/25 02:00 Lidocaine 1 patch DAILY@0230 TOP 02/24/25 02:30 03/04/25 02:51 1 PATCH Norepinephrine Bitartrate 250 ml @ 3.75 mls/hr Q24H IV 02/25/25 11:45 02/26/25 11:51 7.5 MLS/HR Meropenem 50 ml @ 17 mls/hr Q12HR@0800,2000 IV 02/26/25 08:00 03/04/25 20:10 17 MLS/HR Acetaminophen 650 mg Q6HP PRN KS 02/26/25 09:00 Diagnostic Test (Pha) 1 strip Q4HR 02/26/25 16:00 Cancel Dextrose 50 ml UD PRN IV 02/26/25 14:15 Diagnostic Test (Pha) 1 strip IQ4HR 02/26/25 16:00 UNV Dextrose 50 ml UD PRN IV 02/26/25 16:00 UNV Trimethoprim/ Sulfamethoxazole 15 ml/Dextrose 265 ml @ 176.667 mls/hr Q8H IV 02/28/25 20:00 03/04/25 20:10 176.667 MLS/HR Pantoprazole Sodium 40 mg DAILY IV 03/02/25 10:00 03/04/25 10:37 40 MG Insulin Human Regular Q6HR SC 03/02/25 12:00 03/03/25 12:05 2 UNITS Fat Emulsion Intravenous 100 ml/Sodium Acetate 10 meq/Potassium Chloride 10 meq/ Potassium Phosphate 11 meq/ Calcium Gluconate 2.3 meq/Magnesium Sulfate 6 meq/ Multivitamins 10 ml/Insulin Human Regular 10 units/ Amino Acids/ Dextrose/Purified Water 1,129.0462 ml @ 47 mls/hr Q24H2M IV 03/04/25 22:00 03/05/25 21:59 03/04/25 20:30 47 MLS/HR Laboratory Results Laboratory Tests 03/04/25 02:50 Chemistry Test 03/04/25 02:50 Albumin 2.5 g/dL (3.2-4.8) L Calcium Level 8.4 mg/dL (8.7-10.4) L Magnesium Level 2.1 mg/dL (1.6-2.6) Phosphorus Level 3.5 mg/dL (2.4-5.1) Total Protein 5.1 g/dL (5.7-8.2) L LFT Test 03/04/25 02:50 Alanine Aminotransferase (ALT) 142 U/L (7-40) H Alkaline Phosphatase 393 U/L (46-116) H Aspartate Amino Transferase (AST) 87 U/L (13-40) H Total Bilirubin 2.6 mg/dL (0.2-1.0) H Urinalysis Test 01/14/25 02:00 Urine Color Yellow (Yellow) Urine Clarity Turbid (Clear) H Urine pH 6.0 (5.0-9.0) Urine Specific [place] 1.016 (1.001-1.035) Urine Protein 1+ (Negative) H Urine Ketones Trace (Negative) Urine Blood 1+ /uL (Negative) H Urine Nitrite Negative (Negative) Urine Bilirubin Negative (Negative) Urine Urobilinogen Normal mg/dL (Negative) Urine Leukocyte Esterase Negative /uL (Negative) Urine RBC 10 /hpf (0 - 4) Urine Microscopic WBC 2 /HPF (0-5) Urine Squamous Epithelial Cells Few /hpf (<5) Urine Amorphous Crystals Few /hpf (None Seen) Urine Bacteria None seen /hpf (None Seen) Urine Creatinine 34.09 mg/dL (30.0-125.0) Urine Protein/Creatinine Ratio 3.85 Urine Sodium 76 mmol/L (40-220) Urine Glucose Normal mg/dL (Normal) Urine Total Protein 131.1 mg/dL (1-14) H Microbiology Microbiology Date/Time Source Procedure Growth Status 03/02/25 16:00 Urine - [place] Urine Culture - Preliminary Resulted 03/02/25 16:00 Aspirate Gram Stain - Final Resulted 03/02/25 16:00 Aspirate Body Fluid Culture - Preliminary Resulted 02/25/25 21:39 Blood Blood Culture - Final NO GROWTH AFTER 5 DAYS OF INCUBATION. Complete 02/25/25 11:48 Sputum Gram Stain - Final Complete 02/25/25 11:48 Sputum Respiratory Culture - Final Complete 01/13/25 17:10 Nose MRSA Screen - Final Complete Assessment/Plan Assessment/Plan Impression: Acute hypoxic respiratory failure Atelectasis Pleural effusion Acute metabolic encephalopathy secondary to acute hypoxic respiratory failure Pulmonary edema due to chronic heart failure with preserved ejection fraction Perforation of small bowel status post exploratory laparotomy Acute on chronic kidney disease secondary to shock, vasomotor nephropathy Anemia Sepsis with septic shock secondary to perforation of small bowel Events: Remains on supplemental oxygen On 1 LPM NC Taper O2 as tolerated HOB elevation Aspiration precautions Physical Therapy eval. Awaiting Gastrografin study Follow up GI recs Monitor CARMEN drain output Surgery recs appreciated. NGT with coffee-ground material. Hemoglobin stable Continue antibiotics/antifungal coverage Continue to monitor hemoglobin Transfuse if less than 7.0 g/dL. TPN for nutritional support Labs and imaging reviewed. Rest of plan as noted below. Plan: S/p extubation Supplemental oxygen Titrate to keep O2 sats above 92%. Continue antibiotics. F/u cultures. Continue antifungal Monitor renal function due to acute kidney injury. Monitor electrolytes. Supplement as necessary. Monitor ins and outs Monitor hemoglobin Transfuse if less than 7.0 g/dL. Follow up GI recommendations Follow up Surgery recommendations Nutritional support. Accu-Cheks, ISS. GI/DVT prophylaxis. Condition: Critical Prognosis: Poor given multiple comorbidities. Rest of plan per hospitalist and other consultants. A total of 35 minutes of critical care time was spent reviewing the patient record, examining the patient, making a diagnostic and therapeutic plan, discussing this plan with the medical personnel, following up on diagnostic studies and following the patient for clinical stability excluding any and all procedures. At least 50% of this time was spent in direct, [id number] contact. Thank you for allowing me to participate in this patient's care. Further recommendations will depend on patient's clinical course. Please do not hesitate to contact me if you have any questions or concerns. This medical document was created using an electronic medical record system with [employer] dictation system. Although this document has been carefully reviewed, there may still be some phonetic and typographical errors. These areas are purely typographical due to imperfections of the software programs, and do not reflect any compromise in the patient's medical care. Plan discussed with: Patient, Other (RN Kat/Victoria) Visit Coding Pulmonary Billing Provider: MORA LANGSTON MD Date of Service if different f: Mar 04, 2025 Common Visit Codes: 89413-[id number] INP/OBS CARE(HIGH), [id number] CARE 30-74 MIN MORA LANGSTON MD Mar 04, 2025 23:07
[2025-03-05] VITALS (27 sets, daily range): BP systolic 100–140; BP diastolic 34–80; PULSE 97–121; RESP 14–24; TEMP 97.3–99.4; O2SAT 98–100
[2025-03-05 02:56] LABS: Hematocrit 23.2 % (36.0-46.0); Hemoglobin 8.1 g/dL (12.2-16.2)
[2025-03-05 02:58] LABS: Mean Corpuscular Hemoglobin 36.2 pg (28.0-32.0); Mean Corpuscular Volume 104.0 fL (80.0-100.0); Nucleated Red Blood Cells % 0.0 %
[2025-03-05 03:11] LABS: Anion Gap 9 (5-15); BUN/Creatinine Ratio 36.7 (10.0-20.0); Carbon Dioxide 22 mmol/L (20-31); Chloride 106 mmol/L (98-107); Magnesium 2.2 mg/dL (1.6-2.6); Potassium 4.5 mmol/L (3.5-5.1); Sodium 137 mmol/L (136-145)
[2025-03-05 03:12] LABS: Alanine Aminotransferase 110 U/L (7-40); Albumin 2.5 g/dL (3.2-4.8); Alkaline Phosphatase 282 U/L (46-116); Bilirubin, Total 2.0 mg/dL (0.2-1.0); Blood Urea Nitrogen 40 mg/dL (9-23); Calcium 8.5 mg/dL (8.7-10.4); Glucose 152 mg/dL (74-106); Total Protein 5.1 g/dL (5.7-8.2)
--- NOTE | 2025-03-05 07:56 | DVHPN2 ---
Progress Note Date Seen: Mar 05, 2025 Has the PT tested + for MRSA If YES, has PT been informed?: No Medical Necessity Reason Pt with a Central, PICC or Fol: Yes The following are medically ne: Central Line, Leach Catheter Reason for leach catheter: Strict I&O Objective vital signs Vital Sign Date Time Temp Pulse Resp B/P (MAP) Pulse Ox O2 Delivery O2 Flow Rate FiO2 03/05/25 06:05 103 27 107/59 03/05/25 06:00 100 03/05/25 06:00 Nasal Cannula* 1 03/05/25 04:00 97.3 97.3 Total Intake and Output 03/04/25 03/04/25 03/05/25 15:00 23:00 07:00 Intake Total 791.000 ml 827.2 ml 682.2 ml Output Total 1570 ml 1555 ml Balance 791.000 ml -742.8 ml -872.8 ml medications Current Medications Medications Dose Ordered Sig/Isaura Route Start Time Stop Time Status Last Admin Dose Admin Cefazolin Sodium 50 ml @ 100 mls/hr Q8HR IV 01/13/25 14:00 UNV Vasopressin 20 units/Sodium Chloride 100 ml @ 9 mls/hr Q11H7M IV 01/13/25 18:45 UNV Potassium Chloride 100 ml @ 50 mls/hr Q2H IV 01/16/25 12:45 01/16/25 18:44 UNV Vancomycin HCl 100 ml @ 100 mls/hr DAILY@1200 IV 01/20/25 12:00 UNV Amino Acids 0 ml @ 0 mls/hr PER PHARMACY IV 02/13/25 10:45 Ondansetron HCl 4 mg Q4HPRN PRN IV 02/21/25 09:30 02/24/25 10:45 4 MG Micafungin Sodium 100 mg/Sodium Chloride 100 ml @ 100 mls/hr DAILY IV 02/22/25 10:00 03/04/25 10:37 100 MLS/HR Trimethoprim/ Sulfamethoxazole 0 ml @ 0 mls/hr PER PHARMACY IV 02/21/25 17:00 Multi-Ingredient Ointment 1 applic DAILY TOP 02/23/25 10:00 03/04/25 10:00 1 APPLIC Hydromorphone HCl 1 mg Q4HPRN PRN IV 02/23/25 13:30 03/05/25 06:05 1 MG Acetaminophen 650 mg Q4HP PRN PO 02/24/25 02:00 Lidocaine 1 patch DAILY@0230 TOP 02/24/25 02:30 03/05/25 02:13 1 PATCH Norepinephrine Bitartrate 250 ml @ 3.75 mls/hr Q24H IV 02/25/25 11:45 02/26/25 11:51 7.5 MLS/HR Meropenem 50 ml @ 17 mls/hr Q12HR@0800,2000 IV 02/26/25 08:00 03/04/25 20:10 17 MLS/HR Acetaminophen 650 mg Q6HP PRN NC 02/26/25 09:00 Diagnostic Test (Pha) 1 strip Q4HR 02/26/25 16:00 Cancel Dextrose 50 ml UD PRN IV 02/26/25 14:15 Diagnostic Test (Pha) 1 strip IQ4HR 02/26/25 16:00 UNV Dextrose 50 ml UD PRN IV 02/26/25 16:00 UNV Trimethoprim/ Sulfamethoxazole 15 ml/Dextrose 265 ml @ 176.667 mls/hr Q8H IV 02/28/25 20:00 03/05/25 03:45 176.667 MLS/HR Pantoprazole Sodium 40 mg DAILY IV 03/02/25 10:00 03/04/25 10:37 40 MG Insulin Human Regular Q6HR SC 03/02/25 12:00 03/03/25 12:05 2 UNITS Fat Emulsion Intravenous 100 ml/Sodium Acetate 10 meq/Potassium Chloride 10 meq/ Potassium Phosphate 11 meq/ Calcium Gluconate 2.3 meq/Magnesium Sulfate 6 meq/ Multivitamins 10 ml/Insulin Human Regular 10 units/ Amino Acids/ Dextrose/Purified Water 1,129.0462 ml @ 47 mls/hr Q24H2M IV 03/04/25 22:00 03/05/25 21:59 03/04/25 20:30 47 MLS/HR laboratory and microbiology Laboratory Tests 03/05/25 02:30 Test 03/05/25 02:30 Range/Units Serum Glucose 152 H 74-106 mg/dL Problem List/Assessment/Plan Problem List/Assessment/Plan 01/14/25 afebrile, low dose BP support, received transfusion, I believe her decreased hematocrit is due to hemodilution. abdomen non distended, soft, wound clean and well approximated, drainage serous . remains intubated and sedated 01/16/25 ALKALOSIS, ABDOMEN NON DISTENDED, SOFT, DRAINAGE SEROUS, WOUND CLEAN AND WELL APPROXIMATED 01/17/25 improved, thrombocytopenia possibly made worse by Fluconazole,will DC, abdomen non distended, wound well approximated without infection, TATY drainage serous, CVP 6, good urine output. 01/18/25 abg reviewed, ,abdomen soft, non distended, TATY drainage clear serous, no bowel activity, febrile, urine output ok, continues with thrombocytopenia,pt and inr slightly elevated. prognosis grave. 01/20/25remains sedated on ventilator, abdomen soft, non distended, faint bowel sounds auscultated by nurse, wound clean and well approximated, TATY drainage clear serous. continues with thrombocytopenia, still behind on intravascular volume( BUN and Creatinine elevated), i would give more IV fluids and DC vancomycin. 01/25/25 afebrile, normotensive, wound clean and well approximated, TATY drainage serous, abdomen non distended, soft, gastrografin small bowel series shows non obstructed GI tract and no evidence of extravasation. It is OK to initiate enteric feedings. 01/29/25 16 DAYS POST OPERATIVELY TRHE TAYT DRAINAGE WHICH HAD CONSISTENTLY BEEN SEROUS OR SERO SANGUINEOUS HAS BECOME "DIRTY" BROWNISH DISCOLORATION, HER WOUND IS CLEAN AND WELL APPROXIMATED AND HER ABDOMEN IS SOFT AND NON DISTENDED, CT SCAN SHOWS SO0ME FLUID AND ACCUMULATION OF FLUID AROUND THE SPLEEN, WILL REQUEST CT GUIDED ASPIRATION OF SAME, WILL ORDER IRRIGATION OF DRAINS. SHE SI AFEBRILE AND MAINTAINS NORMAL BLOOD PRESSURE, HER WBC IS NORMAL. 01/30/25 improved, awake, being weaned off vent. abdomen non distended, non tender, taty drainage clearing with irrigation 02/02/25clinically unchanged, gastrografin small bowel series reported and normal, no extravasation reported, will order a follow ujp KUB for tomorrow AM 02/03/25 PATIENT HAD A GASTROGRAFIN SMALL BOWEL SERIES AND A FOLLOW UP KUB X RAYS NEITHER ONE OF WHICH SHOW EXTRAVASATION OF CONTRAST OR EVIDENCE OF FREE CONTRAST IN THE PERITONEAL CAVITY. THERE IS HOWEVER VISCOUS, BROWNISH FLUID DRAINING VIA BOTH TATY DRAINS AND THROUGH INFRAUMBILICAL PORTION OF MIDLINE WOUND, I REMOVED THE RICHIE FROM THE 3 CM SECTION OF THE INFRAUMBILICAL WOUND AND EVACUATED ABOUT 30 CC OF THIS FLUID AND INSTRUCTED THE NURSE TO PLACE A STOMA APPLIANCE ON THIS OPENING. 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 TODAY HER WBC IS ELEVATED, ABDOMEN CONTINUES TO BE NON DISTENDED, SOFT, BUT SHE DOES HAVE SLIGHT TENDERNESS IN THE PERIUMBILICAL AREA. I WILL TREAT THIS EXPECTANTLY FORM THE TIME BEING IN THE HOPE THAT THIS IS A "CONTROLLED" FISTULA AND HOPEFUL WILL HEAL SPONTANEOUSLY WITH NPO AND NUTRITIONAL SUPPORT. WILL WATCH CLOSELY, AFTER A FEW DAYS WILL GET A FISTULOGRAM TO PIN POINT THE ENTERIC ORIGIN OF THE FISTULIZATION. CONTINUE NGT SUCTION AND DRAIN IRRIGATION ORDERED02/05/25 02/05/25 remains sedated and intubated?ventilated, abdomen non distended soft, wound vac in place. TATY drainage serosanguineous 02/08/25 EXTUBATED, GOOD INSPIRATORY EFFORT, BP NML WITHOUT PRESSOR SUPPORT, ABDOMEN SOFT, NON DISTENDED, APPROPRIATELY TENDER, LABS REVIEWED. NO CHANGES TODAY OTHER THAN ALLOW ICE CHIPS PO. WILL ORDER GASTROGRAFIN SMALL BOWEL FOLLOWTHROUGH FOR Friday02/09/25 awake cooperative, wound vac in place, abdomen soft, non distended, appropriately tender, TATY drainage brownish discoloration, will irrigate, her WBC is normal and she is afebrile and normotensive. gastrografin tomorrow 02/10/25 AWAKE,COMFORTABLE, DENIES PAIN, ABDOMEN NON DISTENDED APPROPRIATELY TENDER, WOUND CLEAN AND WELL APPROXIMATED, DRAINS BEING IRRIGATED, LABS OK, GOOD URINE OUTPUT. "SURGICALLY" STABLE 02/11/25 feels well, passing flatus. is hungry, abdomen soft non distended, drainage clearing with irrigation, will wait for Gastrografin small bowel series to be completed, if normal will start po clear liquids 02/12/25 no nausea, change in TATY drainage colort, appears to contaIN, BILE, WILL DC po CLEAR LIQUIDS, CONTINUE ICE CGHIPS, SEND DRAin fluid for amylase and bilirubin, 02/13/25 states she feels well, abdomen non tender, non distended, wound clean and well approximated. drainage slightly clearer, keep npo for now, needs to resume TPN 02/14/25 PATIENT C/O BEING COLD BUT HAS NO PAIN, DRAINAGE SEEMS TO BE CLEARING, SHE HAD A BOWEL MOVEMENTS, ABDOMEN IS SOFT AND NON TENDER, NON DISTENDED, WOUND IS CLEAN AND WELL APPROXIMATED, WILL CONTINUE NPO STATUS AMYLASE ON TATY DRAINAGE FLUID IS GOING TO TAKE SEVERAL DAYS TO BECOME AVAILABLE. CONTINUE TPN 02/16/25 DENIES PAIN,STATES SHE FEELS BETTER, WOUND VAC IN PLACE, ABDOMEN NON TENDER,NON DISTENDED, TATY DRAINAGE SMALL TO MODERATE , WILL CONTINUE IRRIGATING DRAINS, WILL REQUEST GI CONSULT TO CONSIDER ENDOSCOPY. WBC NL,H/H STABLE , ALBUMIN STILL VERY LOW. , 02/17/25 CT SCAN REVIEWED, I SUSPECT THERE IS A SMALL LEAK FROM THE APPEARANCE OF IMAGING ALTHOUGH RADIOLOGIST RECOMMENDED REPEAT CT SCAN (ORDERED). THE DRAINAGE IS SMALL AMOUNT BUT NOW IT IS WITH AN ODOR, I WILL RE INSERT NGT TO ATTEMPT DECREASING THE GASTRIC CONTENTS. ABDOMEN IS SOFT, APPROPRIATELY TENDER, WOUND VAC IN PLACE 02/18/25 AFEBRILE, NORMOTENSIVE4, WBC NL, ALL IMAGING NEGATIVE, ANGIOGRAM SHOWS NO EVIDENCE OF HYPOPERFUSION, CONTRAST AND NON CONTRAST CT SCAN FAILED TO SHOW ANY EVIDENCE OF EXTRAVASATION, THE DRAINAGE CONTINUES TO BE BROWNISH DISCOLORED AND FOULS SMELLING, EXPLAINED TO PT'S SON THAT I HAVE NO EVIDENCE OF ANY GI LEAKAGE, WILL GET A GASTROGRAFIN ENEMA ON FRIDAY, I AM TRYING TO REFRAIN FROM OPERATING ON THE FRAIL ELDERLY PATIENT FOR THE THIRD TIME, SHE WILL NOT TOLERATE ANOTHYER OPERATION WELL. HER ALBUMIN REMAINS VERY LOW.WOUND VAC OK 02/19/25 feels ok,c/o being cold, abdomen soft. non distended, minimally tender, drainage seems to be little less, labs ok, continue as is 02/22/25 she feels well, abdomen is non tender, soft and non distended, drainage slightly less in volume, still discolored,gastrografin enema reviewed by me ( no radiologist/s interpretation available), she has not evacuated the gastrografin according to nurse. 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 will proceed with operation on 02/25/25 at 0715 AM. 02/27/25 SLIGHT IMPROVEMENT, ABDOMEN SOFT, NON DISTENDED, STOMA VIABLE WITHOUT FUNCTION, OK TO TRY GETTING OFF VENTILATOR. 03/01/25 extubated, conversant,oriented, abdomen non distended, appropriately tender, wound clean ans well approximated, drainage serous, stoma viable and with minimal liquid,no gas. will sips of water and ice po 03/02/25 awake comfortable, denies pain, abdomen appropriately tender, wound vac in place, afebrile, normotensive, drainage serosanguineous, cbc stable, stoma viable and with minimal output will resume irrigation of drain 03/03/25 awake ,cooperative, good inspiratory effort, afebrile, normotensive, wound covered with wound vac, drainage serous but cloudy(cultures ordered) abdomen non tender, stoma viable with minimal output. will order gastrografin ugi with small bowel follow throught for tomorow 03/04/25 vital signs stable, good urine output, wound vac ok, abdomen non tender. Xray pending 03/05/25 UGI X RAY SHOWS A NEW AREA OF LEAK,BEING ADEQUATELY DRAINED BY THE TATY DRAIN WHICH IS ADJACENT TO IT, HER ABDOMEN IS NON TENDER. WILL RESUME STRICT NPO STATUS, KEEP NGT TO CONTINUOUS SUCTION, I HAVE CALLED HER SON ILIANA AND EXPLAINED THAT PROBABLY THE INTESTINAL WALL IS NOT HEALING WHENEVER WE PLACE SUTURE AT SITES OF ANASTOMOSES. HER ABDOMEN IS NON TENDER, I WILL TREAT THIS CONSERVATIVELY FOR SOME TIME TO SEE IF THE LEAK MAY SHOW SOME EVIDENCE OF HEALING. YESTERDAY THERE WAS 500 CC OF TATY DRAINAGE. HER ALBUMIN LEVEL IS SLOWLY IMPROVING BUT STILL REMAINS LOW. IT APPEARS THAT THE SUTURES IN HER INTESTINAL ANASTOMOSES HOLD FOR ABOUT A WEEK AND THEN BREAK DOWN. (DRAINAGE TURNED FROM SEROSANGUINEOUS TO GREENISH YESTERDAY. Plan discussed with: Patient Dietary Evaluation Review Comments: Nutrition Recommendation: 1) TPN to meet at least 75% estimated needs within 7 days 2) Monitor NPO status, lab values, wt trend, I/O Expected Outcomes/Goals: To meet >75% estimated needs Lab values to improve Fu 2-3 days Is there a minimum of two crit: Yes MELVA RAMESH MD Mar 05, 2025 07:56
[2025-03-05] MEDS: PANTOPRAZOLE 40mg/50ML NS AE 50 ML IV SCH (08:21)
--- NOTE | 2025-03-05 13:27 | DVHPNRES ---
Progress Note Date Seen: Mar 05, 2025 Resident Creating Document: ASHLEY TREJO RESIDENT Has the PT tested + for MRSA If YES, has PT been informed?: No Medical Necessity Reason Pt with a Central, PICC or Fol: Yes The following are medically ne: Central Line, Leach Catheter Reason for leach catheter: Strict I&O Subjective Review of Systems This is a 80-year-old lady with past medical history of hypertension, AFib (on Eliquis), diabetes type 2, CKD, came to the hospital due to abdominal pain, and constipation. Admitted on 01/13/2025. Found to have peritonitis due to bowel perforation, and underwent emergent laparotomy with subsequent resection of perforated small bowel and enteroenterostomy. Due to abnormal CARMEN drainage, second exploratory laparotomy performed on 02/04 and found to have perforation near to previous perforation area, underwent resection of area with subsequent anastomosis of proximal jejunal loops. Patient seen and evaluated in bedside today. Patient is on 3 L oxygen. Continuously monitor her saturation and hemodynamic status. 300 ml suctioned with blackish fluid. 500 mL of greenish fluid from CARMEN drain. Patient complained of abdominal tenderness, pain, back pain which was 5/10 in intensity. Patient is kept on NPO as Gastrografin scan showed Contrast extravasation is seen in the proximal small bowel, possibly left sided jejunum near the surgical drain can be seen with a leak. Objective vital signs Vital Sign Date Time Temp Pulse Resp B/P (MAP) Pulse Ox O2 Delivery O2 Flow Rate FiO2 03/05/25 12:38 98 18 125/52 03/05/25 12:00 99 Nasal Cannula* 1 24 03/05/25 12:00 98.8 98.8 Total Intake and Output 03/04/25 03/04/25 03/05/25 15:00 23:00 07:00 Intake Total 791.000 ml 827.2 ml 729.2 ml Output Total 1570 ml 1555 ml Balance 791.000 ml -742.8 ml -825.8 ml medications Current Medications Medications Dose Ordered Sig/Isaura Route Start Time Stop Time Status Last Admin Dose Admin Cefazolin Sodium 50 ml @ 100 mls/hr Q8HR IV 01/13/25 14:00 UNV Vasopressin 20 units/Sodium Chloride 100 ml @ 9 mls/hr Q11H7M IV 01/13/25 18:45 UNV Potassium Chloride 100 ml @ 50 mls/hr Q2H IV 01/16/25 12:45 01/16/25 18:44 UNV Vancomycin HCl 100 ml @ 100 mls/hr DAILY@1200 IV 01/20/25 12:00 UNV Amino Acids 0 ml @ 0 mls/hr PER PHARMACY IV 02/13/25 10:45 Ondansetron HCl 4 mg Q4HPRN PRN IV 02/21/25 09:30 02/24/25 10:45 4 MG Micafungin Sodium 100 mg/Sodium Chloride 100 ml @ 100 mls/hr DAILY IV 02/22/25 10:00 03/05/25 08:21 100 MLS/HR Trimethoprim/ Sulfamethoxazole 0 ml @ 0 mls/hr PER PHARMACY IV 02/21/25 17:00 Multi-Ingredient Ointment 1 applic DAILY TOP 02/23/25 10:00 03/05/25 08:22 1 APPLIC Hydromorphone HCl 1 mg Q4HPRN PRN IV 02/23/25 13:30 03/05/25 12:38 1 MG Acetaminophen 650 mg Q4HP PRN PO 02/24/25 02:00 Lidocaine 1 patch DAILY@0230 TOP 02/24/25 02:30 03/05/25 02:13 1 PATCH Norepinephrine Bitartrate 250 ml @ 3.75 mls/hr Q24H IV 02/25/25 11:45 02/26/25 11:51 7.5 MLS/HR Meropenem 50 ml @ 17 mls/hr Q12HR@0800,2000 IV 02/26/25 08:00 03/05/25 08:21 17 MLS/HR Acetaminophen 650 mg Q6HP PRN VA 02/26/25 09:00 Diagnostic Test (Pha) 1 strip Q4HR 02/26/25 16:00 Cancel Dextrose 50 ml UD PRN IV 02/26/25 14:15 Diagnostic Test (Pha) 1 strip IQ4HR 02/26/25 16:00 UNV Dextrose 50 ml UD PRN IV 02/26/25 16:00 UNV Trimethoprim/ Sulfamethoxazole 15 ml/Dextrose 265 ml @ 176.667 mls/hr Q8H IV 02/28/25 20:00 03/05/25 12:11 176.667 MLS/HR Insulin Human Regular Q6HR SC 03/02/25 12:00 03/03/25 12:05 2 UNITS Fat Emulsion Intravenous 100 ml/Sodium Acetate 10 meq/Potassium Chloride 10 meq/ Potassium Phosphate 11 meq/ Calcium Gluconate 2.3 meq/Magnesium Sulfate 6 meq/ Multivitamins 10 ml/Insulin Human Regular 10 units/ Amino Acids/ Dextrose/Purified Water 1,129.0462 ml @ 47 mls/hr Q24H2M IV 03/04/25 22:00 03/05/25 21:59 03/04/25 20:30 47 MLS/HR Pantoprazole Sodium 50 ml @ 10 mls/hr Q5H IV 03/05/25 08:00 03/05/25 10:39 10 MLS/HR Fat Emulsion Intravenous 100 ml/Sodium Acetate 20 meq/Sodium Phosphate 20 meq/ Magnesium Sulfate 4 meq/ Multivitamins 10 ml/Insulin Human Regular 10 units/ Amino Acids/ Dextrose/Purified Water 1,126.1 ml @ 47 mls/hr [id number] IV 03/05/25 22:00 03/06/25 21:59 Examination Pt is lying on bed General Appearance: Alert and Oriented x2 HEENT: Atraumatic, Mucous membranes moist/pink Respiratory: Clear to auscultation, Normal air movement, No added sounds Cardiovascular: Regular rate, Normal S1, Normal S2, No murmurs Abdominal: Active bowel sounds, Soft, no distention, no tenderness, colostomy bag in place with 1 CARMEN drain Extremities: There is bilateral upper extremity edema, with seeping fluid Skin: No Significant rash, except past surgical scars Neuro: more alert and oriented Nurse was there as bread and pastry baker during examination laboratory and microbiology Laboratory Tests 03/05/25 02:30 Test 03/05/25 02:30 Range/Units Serum Glucose 152 H 74-106 mg/dL Microbiology Date/Time Source Procedure Growth Status 03/02/25 16:00 Urine - Leach [place] Urine Culture - Preliminary Resulted 03/02/25 16:00 Aspirate Gram Stain - Final Resulted 03/02/25 16:00 Aspirate Body Fluid Culture - Preliminary Resulted 02/25/25 21:39 Blood Blood Culture - Final NO GROWTH AFTER 5 DAYS OF INCUBATION. Complete 02/25/25 11:48 Sputum Gram Stain - Final Complete 02/25/25 11:48 Sputum Respiratory Culture - Final Complete 01/13/25 17:10 Nose MRSA Screen - Final Complete Problem List/Assessment/Plan Problem List/Assessment/Plan Neurology # Chronic ischemic changes # Chronic Cortical atrophy - Head CT (01/29): Chronic microangiopathy and cortical atrophy. - reintubated on 02/25/25 during surgery # Extubated on 02/28 Cardiovascular # Septic shock secondary to hollow viscus perforation. # Paroxysmal atrial fibrillation with a second-degree hypercoagulable state currently NSR # Chronic diastolic heart failure with preserved EF 65% # Hypertension. - Echocardiogram (01/15): Normal LV EF (65%), mild LVH, mild LV diastolic dysfunction. - Chest X-ray: Bibasilar atelectasis. - ZEFERINO?DS?-VASc score >5 - cardiology on board - initially on Lovenox therapeutic but Dc'd due to low hemoglobin - Labetalol PRN Pulmonary # Acute hypoxic respiratory failure secondary to bilateral pleural effusion/pneumonia s/p re-intubation, status post extubation 02/28 - monitor with daily CXR - Sputum culture 01/29 Presumptive Zoe albicans and : negative - Reintubated on 02/25. - Chest Physiotherapy ongoing. - extubated today Gastrointestinal / Liver # Acute Bacterial Peritonitis due to small bowel perforation vs Perisplenic abscess. s/p multiple laparotomies # Transaminitis secondary to shock. # Anion gap metabolic acidosis due to bowel ischemia and lactic acidosis - CT abdomen/pelvis (02/16): Pneumoperitoneum, extraluminal contrast, perisplenic/subdiaphragmatic collection (7.1 1.1 cm). - Small bowel series (02/11): Normal. - Gastrografin (02/21): [place]-enteric fistula, contrast leak from distal transverse colon. Procedures: - First laparotomy (01/13): Resection of perforated small bowel, enteroenterostomy. - Second laparotomy (02/04): Resection near previous perforation, jejunal anastomosis. - Third laparotomy (02/25): Resection of distal ileum, end-to-end anastomosis, ileostomy. Cultures: - Peritoneal fluid (01/13): E. coli, Klebsiella pneumoniae (sensitive to meropenem). - Peritoneal fluid (02/17): E. coli, Stenotrophomonas maltophilia. - IR-guided pigtail drain placed; drained 50 cc purulent fluid. - CARMEN drains placed in 4 quadrants initially and now patient has only 1 CARMEN drain - Initially NPO, TPN initiated. - NG tube placed. - IV antimicrobials Bactrim, meropenem and micafungin - Initially patient is on Levofloxacin, Flagyl (02/03); Vancomycin and Meropenem (); Meropenem (); Vancomycin () then eventually switched to above antimicrobials -Gastrografin scan(03/05) showed Contrast extravasation is seen in the proximal small bowel, possibly left sided jejunum near the surgical drain can be seen with a leak. -patient kept NPO Genitourinary / Kidney # ISRRAEL likely secondary to shock/volume depletion- resolved - Nephrology consulted for ISRRAEL. Endocrine # Hypothyroidism: TSH 16.29, normal free T4. # Type 2 diabetes mellitus: HbA1c 8.2%.- # Episodes of hypoglycemia. - continuously monitoring blood glucose and on ISS Metabolic Hypokalemia. Hyperkalemia. Hyponatremia: D5W at 75 mL/hr per nephrology. Hypophosphatemia: given IV phosphate Nutrition: Severe protein malnutrition. Hematology # Acute on chronic anemia (hemodilution/post-surgical). # Severe thrombocytopenia, HIT # Acute DVT of right upper extremity. - Ultrasound (01/17): Partial thrombus in right internal jugular and cephalic veins. - hemoglobin today 6.9, transfused 1 more unit of PRBC 02/28 - Transfused total 8 units PRBC, 2 platelet units. - continuously monitor H&H - hold blood thinners Musculoskeletal / Skin # Rib fracture due to fall. Nutrition: TPN initiated. Bowel Regimen: As needed. GI Prophylaxis: Pantoprazole. DVT Prophylaxis: Lovenox (held/ Dc'd due to low hemoglobin). Lines / Tubes / Devices Airway: Intubated on 01/14, extubated on 02/07, reintubated on 02/25 extubated 02/28 Vascular Access: PICC line placed in right upper thigh on 01/26. Drips: Dc'd pressors and sedatives. Urinary: Leach catheter placed on 01/14, exchanged on 02/14. CARMEN drains in 1 quadrant. Goals of care addressed with patient's family members for more than 29 minutes: Full code status Care plan updated to the patient family Chris (son) on bedside and addressed all concerns Critical care time spent more than 83 minutes excluding procedures and including discussion with the family Case discussed with Dr Reed and RN Plan discussed with: Patient Dietary Evaluation Review Comments: Nutrition Recommendation: 1) TPN to meet at least 75% estimated needs within 7 days 2) Monitor NPO status, lab values, wt trend, I/O Expected Outcomes/Goals: To meet >75% estimated needs Lab values to improve Fu 2-3 days Is there a minimum of two crit: Yes CC Plasma Assessment Blood Product Administration S: [id number] ASHLEY TREJO RESIDENT Mar 05, 2025 13:27
--- NOTE | 2025-03-05 21:18 | DVHPN2 ---
Subjective DOS: 03/05/2025 Patient seen and examined at bedside. Remains on supplemental oxygen Overnight events reviewed. HPI: A 80-year-old woman with past medical history of diabetes mellitus who presented to the ED on 01/13/25 with c/o abdominal pain x4 days. Patient reported 8 - 9/10 pain that was sharp and constant, throughout her abdomen. She did note pain medications make it better. Patient admitted to being noncompliant with her Eliquis for the past 2 weeks. Patient denied any fever, chills, chest pain, shortness of breath, or other acute complaints. She reported falling on her left side on January 06, 2025. Patient does not use home oxygen. Patient was admitted for further care, subsequently found to have perforated bowel and underwent exploratory laparotomy with repair of bowel perforation. Pulmonary consultation was requested for evaluation and management due to acute hypoxic respiratory failure requiring mechanical ventilator. Past Medical History: Diabetes mellitus Past Surgical History: , Hernia Repair Medications: Reviewed. Allergies: No known drug allergies. Family History: Arthritis. No family history of premature CAD. No family history of lung disorders. Social History: Nonsmoker. No alcohol or illicit drug use. Reviewed: Care Plan, H&P Changes from previous H/P or p: No Changes Gastrointestinal: Abdominal Pain Objective Vitals Vital Signs Date Time Temp Pulse Resp B/P (MAP) Pulse Ox O2 Delivery O2 Flow Rate FiO2 03/05/25 18:24 18 98 Nasal Cannula* 1 24 03/05/25 18:24 102 03/05/25 18:00 103/62 (76) 03/05/25 16:00 99.0 99.0 Intake/Output Intake and Output 03/05/25 07:00 Intake Total 2347.400 ml Output Total 3125 ml Balance -777.600 ml Intake Oral 0 ml IV Total 2347.400 ml Output Urine Total 1750 ml Stool Total 0 ml Gastric Drainage Total 550 ml Other 825 ml General Appearance: Alert, Oriented X3, No acute distress, Other HEENT: Atraumatic, Mucous membr. moist/pink Neck: Supple Lungs: Clear to auscultation, Other (Decreased air entry bilaterally) Cardiovascular: Regular rate, Normal S1, Normal S2, No murmurs, Gallops, Rubs Abdomen: Normal bowel sounds, Soft, No tenderness Extremities: No clubbing, No cyanosis, No edema Neuro: Strength at 5/5 X4 ext, Sensation intact, Cranial nerves 3-12 NL Psych/Mental Status: Mental status NL, Mood NL Medications Current Medications Medications Dose Ordered Sig/Isaura Route Start Time Stop Time Status Last Admin Dose Admin Cefazolin Sodium 50 ml @ 100 mls/hr Q8HR IV 01/13/25 14:00 UNV Vasopressin 20 units/Sodium Chloride 100 ml @ 9 mls/hr Q11H7M IV 01/13/25 18:45 UNV Potassium Chloride 100 ml @ 50 mls/hr Q2H IV 01/16/25 12:45 01/16/25 18:44 UNV Vancomycin HCl 100 ml @ 100 mls/hr DAILY@1200 IV 01/20/25 12:00 UNV Amino Acids 0 ml @ 0 mls/hr PER PHARMACY IV 02/13/25 10:45 Ondansetron HCl 4 mg Q4HPRN PRN IV 02/21/25 09:30 02/24/25 10:45 4 MG Micafungin Sodium 100 mg/Sodium Chloride 100 ml @ 100 mls/hr DAILY IV 02/22/25 10:00 03/05/25 08:21 100 MLS/HR Trimethoprim/ Sulfamethoxazole 0 ml @ 0 mls/hr PER PHARMACY IV 02/21/25 17:00 Multi-Ingredient Ointment 1 applic DAILY TOP 02/23/25 10:00 03/05/25 08:22 1 APPLIC Hydromorphone HCl 1 mg Q4HPRN PRN IV 02/23/25 13:30 03/05/25 17:25 1 MG Acetaminophen 650 mg Q4HP PRN PO 02/24/25 02:00 Lidocaine 1 patch DAILY@0230 TOP 02/24/25 02:30 03/05/25 02:13 1 PATCH Norepinephrine Bitartrate 250 ml @ 3.75 mls/hr Q24H IV 02/25/25 11:45 02/26/25 11:51 7.5 MLS/HR Meropenem 50 ml @ 17 mls/hr Q12HR@0800,2000 IV 02/26/25 08:00 03/05/25 20:22 17 MLS/HR Acetaminophen 650 mg Q6HP PRN PA 02/26/25 09:00 Diagnostic Test (Pha) 1 strip Q4HR 02/26/25 16:00 Cancel Dextrose 50 ml UD PRN IV 02/26/25 14:15 Diagnostic Test (Pha) 1 strip IQ4HR 02/26/25 16:00 UNV Dextrose 50 ml UD PRN IV 02/26/25 16:00 UNV Trimethoprim/ Sulfamethoxazole 15 ml/Dextrose 265 ml @ 176.667 mls/hr Q8H IV 02/28/25 20:00 03/05/25 20:16 176.667 MLS/HR Insulin Human Regular Q6HR SC 03/02/25 12:00 03/03/25 12:05 2 UNITS Fat Emulsion Intravenous 100 ml/Sodium Acetate 10 meq/Potassium Chloride 10 meq/ Potassium Phosphate 11 meq/ Calcium Gluconate 2.3 meq/Magnesium Sulfate 6 meq/ Multivitamins 10 ml/Insulin Human Regular 10 units/ Amino Acids/ Dextrose/Purified Water 1,129.0462 ml @ 47 mls/hr Q24H2M IV 03/04/25 22:00 03/05/25 21:59 03/04/25 20:30 47 MLS/HR Pantoprazole Sodium 50 ml @ 10 mls/hr Q5H IV 03/05/25 08:00 03/05/25 17:02 10 MLS/HR Fat Emulsion Intravenous 100 ml/Sodium Acetate 20 meq/Sodium Phosphate 20 meq/ Magnesium Sulfate 4 meq/ Multivitamins 10 ml/Insulin Human Regular 10 units/ Amino Acids/ Dextrose/Purified Water 1,126.1 ml @ 47 mls/hr [id number] IV 03/05/25 22:00 03/06/25 21:59 Laboratory Results Laboratory Tests 03/05/25 02:30 Chemistry Test 03/05/25 02:30 Albumin 2.5 g/dL (3.2-4.8) L Calcium Level 8.5 mg/dL (8.7-10.4) L Magnesium Level 2.2 mg/dL (1.6-2.6) Phosphorus Level 3.2 mg/dL (2.4-5.1) Total Protein 5.1 g/dL (5.7-8.2) L LFT Test 03/05/25 02:30 Alanine Aminotransferase (ALT) 110 U/L (7-40) H Alkaline Phosphatase 282 U/L (46-116) H Aspartate Amino Transferase (AST) 63 U/L (13-40) H Total Bilirubin 2.0 mg/dL (0.2-1.0) H Urinalysis Test 01/14/25 02:00 Urine Color Yellow (Yellow) Urine Clarity Turbid (Clear) H Urine pH 6.0 (5.0-9.0) Urine Specific [place] 1.016 (1.001-1.035) Urine Protein 1+ (Negative) H Urine Ketones Trace (Negative) Urine Blood 1+ /uL (Negative) H Urine Nitrite Negative (Negative) Urine Bilirubin Negative (Negative) Urine Urobilinogen Normal mg/dL (Negative) Urine Leukocyte Esterase Negative /uL (Negative) Urine RBC 10 /hpf (0 - 4) Urine Microscopic WBC 2 /HPF (0-5) Urine Squamous Epithelial Cells Few /hpf (<5) Urine Amorphous Crystals Few /hpf (None Seen) Urine Bacteria None seen /hpf (None Seen) Urine Creatinine 34.09 mg/dL (30.0-125.0) Urine Protein/Creatinine Ratio 3.85 Urine Sodium 76 mmol/L (40-220) Urine Glucose Normal mg/dL (Normal) Urine Total Protein 131.1 mg/dL (1-14) H Microbiology Microbiology Date/Time Source Procedure Growth Status 03/02/25 16:00 Urine - [place] Urine Culture - Preliminary Resulted 03/02/25 16:00 Aspirate Gram Stain - Final Resulted 03/02/25 16:00 Aspirate Body Fluid Culture - Preliminary Resulted 02/25/25 21:39 Blood Blood Culture - Final NO GROWTH AFTER 5 DAYS OF INCUBATION. Complete 02/25/25 11:48 Sputum Gram Stain - Final Complete 02/25/25 11:48 Sputum Respiratory Culture - Final Complete 01/13/25 17:10 Nose MRSA Screen - Final Complete Assessment/Plan Assessment/Plan Impression: Acute hypoxic respiratory failure Atelectasis Pleural effusion Acute metabolic encephalopathy secondary to acute hypoxic respiratory failure Pulmonary edema due to chronic heart failure with preserved ejection fraction Perforation of small bowel status post exploratory laparotomy Acute on chronic kidney disease secondary to shock, vasomotor nephropathy Anemia Sepsis with septic shock secondary to perforation of small bowel Events: Remains on supplemental oxygen On 1 LPM NC Taper O2 as tolerated HOB elevation Aspiration precautions Status post Gastrografin study, positive for leak. Study demonstrated contrast extravasation is seen in the proximal small bowel, possibly left sided jejunum near the surgical drain can be seen with a leak. Surgery recs appreciated. Poor wound healing, leakage noted. GI recs appreciated. CARMEN drain in LUQ, monitor output - currently 500 mL NGT output 300 mL NGT with coffee-ground material. Hemoglobin stable Continue antibiotics/antifungal coverage Continue to monitor hemoglobin Transfuse if less than 7.0 g/dL. TPN for nutritional support Recommend Wound consult Wound care. Physical Therapy eval. Labs and imaging reviewed. Rest of plan as noted below. Plan: S/p extubation Supplemental oxygen Titrate to keep O2 sats above 92%. Continue antibiotics. F/u cultures. Continue antifungal Monitor renal function due to acute kidney injury. Monitor electrolytes. Supplement as necessary. Monitor ins and outs Monitor hemoglobin Transfuse if less than 7.0 g/dL. Follow up GI recommendations Follow up Surgery recommendations Nutritional support. Accu-Cheks, ISS. GI/DVT prophylaxis. Condition: Critical Prognosis: Poor given multiple comorbidities. Rest of plan per hospitalist and other consultants. A total of 35 minutes of critical care time was spent reviewing the patient record, examining the patient, making a diagnostic and therapeutic plan, discussing this plan with the medical personnel, following up on diagnostic studies and following the patient for clinical stability excluding any and all procedures. At least 50% of this time was spent in direct, [id number] contact. Thank you for allowing me to participate in this patient's care. Further recommendations will depend on patient's clinical course. Please do not hesitate to contact me if you have any questions or concerns. This medical document was created using an electronic medical record system with [employer] dictation system. Although this document has been carefully reviewed, there may still be some phonetic and typographical errors. These areas are purely typographical due to imperfections of the software programs, and do not reflect any compromise in the patient's medical care. Plan discussed with: Other (MASHA Swift) Visit Coding Pulmonary Billing Provider: MORA LANGSTON MD Date of Service if different f: Mar 05, 2025 Common Visit Codes: [id number] INP/OBS CARE(HIGH), [id number] CARE 30-74 MIN MORA LANGSTON MD Mar 05, 2025 21:18
[2025-03-05] MEDS: TPN PER PHARMACY IV NR (22:01)
[2025-03-06] VITALS (25 sets, daily range): BP systolic 90–119; BP diastolic 44–71; PULSE 96–129; RESP 13–22; TEMP 97.7–98.8; O2SAT 97–100
[2025-03-06 03:55] LABS: Nucleated Red Blood Cells % 0.0 %
[2025-03-06 03:58] LABS: Hematocrit 22.9 % (36.0-46.0); Hemoglobin 7.8 g/dL (12.2-16.2); Mean Corpuscular Hemoglobin 34.1 pg (28.0-32.0); Mean Corpuscular Volume 100.7 fL (80.0-100.0)
[2025-03-06 04:01] LABS: Anion Gap 10 (5-15); BUN/Creatinine Ratio 35.5 (10.0-20.0); Chloride 105 mmol/L (98-107); Glucose 103 mg/dL (74-106); Magnesium 2.0 mg/dL (1.6-2.6); Potassium 4.1 mmol/L (3.5-5.1)
[2025-03-06 04:08] LABS: Alanine Aminotransferase 94 U/L (7-40); Albumin 2.5 g/dL (3.2-4.8); Alkaline Phosphatase 285 U/L (46-116); Bilirubin, Total 2.1 mg/dL (0.2-1.0); Blood Urea Nitrogen 39 mg/dL (9-23); Calcium 8.4 mg/dL (8.7-10.4); Carbon Dioxide 20 mmol/L (20-31); Sodium 135 mmol/L (136-145); Total Protein 5.3 g/dL (5.7-8.2)
--- NOTE | 2025-03-06 10:06 | DVHPN2 ---
Progress Note - Dictate Date Seen: Mar 06, 2025 Has the PT tested + for MRSA If YES, has PT been informed?: No Medical Necessity Reason Pt with a Central, PICC or Fol: Yes The following are medically ne: Central Line, Leach Catheter Reason for leach catheter: Strict I&O Subjective Patient seen and evaluated in bedside today. Patient is on 3 L oxygen. Wound VAC nurse replaced wound VAC dressing NGT 275 ml suctioned with dark fluid. 700 mL of greenish fluid from CARMEN drain; was initially serosanguinous. Mild abd and back pain Patient is kept on NPO Gastrografin scan showed Contrast extravasation is seen in the proximal small bowel, possibly left sided jejunum near the surgical drain can be seen with a leak. vital signs Vital Sign Date Time Temp Pulse Resp B/P (MAP) Pulse Ox O2 Delivery O2 Flow Rate FiO2 03/06/25 09:00 99 20 97/49 (65) 99 03/06/25 08:00 97.7 97.7 03/06/25 08:00 Nasal Cannula* 1 24 Total Intake and Output 03/05/25 03/05/25 03/06/25 15:00 23:00 07:00 Intake Total 861 ml 772 ml 664 ml Output Total 1200 ml 1125 ml Balance 861 ml -428 ml -461 ml medications Current Medications Medications Dose Ordered Sig/Isaura Route Start Time Stop Time Status Last Admin Dose Admin Cefazolin Sodium 50 ml @ 100 mls/hr Q8HR IV 01/13/25 14:00 UNV Vasopressin 20 units/Sodium Chloride 100 ml @ 9 mls/hr Q11H7M IV 01/13/25 18:45 UNV Potassium Chloride 100 ml @ 50 mls/hr Q2H IV 01/16/25 12:45 01/16/25 18:44 UNV Vancomycin HCl 100 ml @ 100 mls/hr DAILY@1200 IV 01/20/25 12:00 UNV Amino Acids 0 ml @ 0 mls/hr PER PHARMACY IV 02/13/25 10:45 Ondansetron HCl 4 mg Q4HPRN PRN IV 02/21/25 09:30 02/24/25 10:45 4 MG Micafungin Sodium 100 mg/Sodium Chloride 100 ml @ 100 mls/hr DAILY IV 02/22/25 10:00 03/05/25 08:21 100 MLS/HR Trimethoprim/ Sulfamethoxazole 0 ml @ 0 mls/hr PER PHARMACY IV 02/21/25 17:00 Multi-Ingredient Ointment 1 applic DAILY TOP 02/23/25 10:00 03/05/25 08:22 1 APPLIC Hydromorphone HCl 1 mg Q4HPRN PRN IV 02/23/25 13:30 03/06/25 01:33 1 MG Acetaminophen 650 mg Q4HP PRN PO 02/24/25 02:00 Lidocaine 1 patch DAILY@0230 TOP 02/24/25 02:30 03/06/25 02:30 1 PATCH Norepinephrine Bitartrate 250 ml @ 3.75 mls/hr Q24H IV 02/25/25 11:45 02/26/25 11:51 7.5 MLS/HR Meropenem 50 ml @ 17 mls/hr Q12HR@0800,2000 IV 02/26/25 08:00 03/06/25 08:18 17 MLS/HR Acetaminophen 650 mg Q6HP PRN TN 02/26/25 09:00 Diagnostic Test (Pha) 1 strip Q4HR 02/26/25 16:00 Cancel Dextrose 50 ml UD PRN IV 02/26/25 14:15 Diagnostic Test (Pha) 1 strip IQ4HR 02/26/25 16:00 UNV Dextrose 50 ml UD PRN IV 02/26/25 16:00 UNV Trimethoprim/ Sulfamethoxazole 15 ml/Dextrose 265 ml @ 176.667 mls/hr Q8H IV 02/28/25 20:00 03/06/25 04:00 176.667 MLS/HR Insulin Human Regular Q6HR SC 03/02/25 12:00 03/03/25 12:05 2 UNITS Pantoprazole Sodium 50 ml @ 10 mls/hr Q5H IV 03/05/25 08:00 03/06/25 08:40 10 MLS/HR Fat Emulsion Intravenous 100 ml/Sodium Acetate 20 meq/Sodium Phosphate 20 meq/ Magnesium Sulfate 4 meq/ Multivitamins 10 ml/Insulin Human Regular 10 units/ Amino Acids/ Dextrose/Purified Water 1,126.1 ml @ 47 mls/hr [id number] IV 03/05/25 22:00 03/06/25 21:59 03/05/25 22:01 47 MLS/HR objective General Appearance: Extubated awake no distress HEENT: Atraumatic, PERRLA, EOMI, Mucous membrane moist/pink Respiratory: Clear to auscultation, Normal air movement Cardiovascular: Regular rate, Normal S1, Normal S2, No murmurs, no chest wall tenderness Abdominal: wound VAC at the midline, CARMEN drain L side with greenish fluid Extremities: No clubbing, No cyanosis, No edema, Normal pulses, No tenderness/swelling Skin: No rashes, No breakdown, No significant lesion laboratory and microbiology Laboratory Tests 03/06/25 03:11 Test 03/06/25 03:11 Range/Units Serum Glucose 103 74-106 mg/dL Problems(with codes): (1) Ischemic bowel disease (2) Acute renal injury (3) Intestinal perforation Prognosis Plan Notes surgical consult recommendations Surgical consult will be making further clinical management decisions regarding surgical issues Continue conservative management for now from GI point of view Patient is strict NPO on TPN Continue to monitor the CARMEN drainage Surgical consult recommends conservative observation and management at this time Nutritional support Continue IV antibiotics Dietary Evaluation Review Comments: Nutrition Recommendation: 1) TPN to meet at least 75% estimated needs within 7 days 2) Monitor NPO status, lab values, wt trend, I/O Expected Outcomes/Goals: To meet >75% estimated needs Lab values to improve Fu 2-3 days Is there a minimum of two crit: Yes Plan discussed with: Other (ICU Nurse) CC Plasma Assessment Blood Product Administration S: [id number] FRANCISCA RODRÍGUEZ MD Mar 06, 2025 10:06
--- NOTE | 2025-03-06 10:32 | DVHPN2 ---
Progress Note Date Seen: Mar 06, 2025 Has the PT tested + for MRSA If YES, has PT been informed?: No Medical Necessity Reason Pt with a Central, PICC or Fol: Yes The following are medically ne: Central Line, Leach Catheter Reason for leach catheter: Strict I&O Objective vital signs Vital Sign Date Time Temp Pulse Resp B/P (MAP) Pulse Ox O2 Delivery O2 Flow Rate FiO2 03/06/25 09:00 99 20 97/49 (65) 99 03/06/25 08:00 97.7 97.7 03/06/25 08:00 Nasal Cannula* 1 24 Total Intake and Output 03/05/25 03/05/25 03/06/25 15:00 23:00 07:00 Intake Total 861 ml 772 ml 664 ml Output Total 1200 ml 1125 ml Balance 861 ml -428 ml -461 ml medications Current Medications Medications Dose Ordered Sig/Isaura Route Start Time Stop Time Status Last Admin Dose Admin Cefazolin Sodium 50 ml @ 100 mls/hr Q8HR IV 01/13/25 14:00 UNV Vasopressin 20 units/Sodium Chloride 100 ml @ 9 mls/hr Q11H7M IV 01/13/25 18:45 UNV Potassium Chloride 100 ml @ 50 mls/hr Q2H IV 01/16/25 12:45 01/16/25 18:44 UNV Vancomycin HCl 100 ml @ 100 mls/hr DAILY@1200 IV 01/20/25 12:00 UNV Amino Acids 0 ml @ 0 mls/hr PER PHARMACY IV 02/13/25 10:45 Ondansetron HCl 4 mg Q4HPRN PRN IV 02/21/25 09:30 02/24/25 10:45 4 MG Micafungin Sodium 100 mg/Sodium Chloride 100 ml @ 100 mls/hr DAILY IV 02/22/25 10:00 03/05/25 08:21 100 MLS/HR Trimethoprim/ Sulfamethoxazole 0 ml @ 0 mls/hr PER PHARMACY IV 02/21/25 17:00 Multi-Ingredient Ointment 1 applic DAILY TOP 02/23/25 10:00 03/05/25 08:22 1 APPLIC Hydromorphone HCl 1 mg Q4HPRN PRN IV 02/23/25 13:30 03/06/25 01:33 1 MG Acetaminophen 650 mg Q4HP PRN PO 10/16/25 02:00 Lidocaine 1 patch DAILY@0230 TOP 02/24/25 02:30 03/06/25 02:30 1 PATCH Norepinephrine Bitartrate 250 ml @ 3.75 mls/hr Q24H IV 02/25/25 11:45 02/26/25 11:51 7.5 MLS/HR Meropenem 50 ml @ 17 mls/hr Q12HR@0800,2000 IV 02/26/25 08:00 03/06/25 08:18 17 MLS/HR Acetaminophen 650 mg Q6HP PRN MN 02/26/25 09:00 Diagnostic Test (Pha) 1 strip Q4HR 02/26/25 16:00 Cancel Dextrose 50 ml UD PRN IV 02/26/25 14:15 Diagnostic Test (Pha) 1 strip IQ4HR 02/26/25 16:00 UNV Dextrose 50 ml UD PRN IV 02/26/25 16:00 UNV Trimethoprim/ Sulfamethoxazole 15 ml/Dextrose 265 ml @ 176.667 mls/hr Q8H IV 02/28/25 20:00 03/06/25 04:00 176.667 MLS/HR Insulin Human Regular Q6HR SC 03/02/25 12:00 03/03/25 12:05 2 UNITS Pantoprazole Sodium 50 ml @ 10 mls/hr Q5H IV 03/05/25 08:00 03/06/25 08:40 10 MLS/HR Fat Emulsion Intravenous 100 ml/Sodium Acetate 20 meq/Sodium Phosphate 20 meq/ Magnesium Sulfate 4 meq/ Multivitamins 10 ml/Insulin Human Regular 10 units/ Amino Acids/ Dextrose/Purified Water 1,126.1 ml @ 47 mls/hr [id number] IV 03/05/25 22:00 03/06/25 21:59 03/05/25 22:01 47 MLS/HR Fat Emulsion Intravenous 100 ml/Sodium Acetate 60 meq/Potassium Phosphate 22 meq/ Magnesium Sulfate 6 meq/ Multivitamins 10 ml/Insulin Human Regular 10 units/ Amino Acids/ Dextrose/Purified Water 1,146.6 ml @ 48 mls/hr [id number] IV 03/06/25 22:00 03/07/25 21:59 laboratory and microbiology Laboratory Tests 03/06/25 03:11 Test 03/06/25 03:11 Range/Units Serum Glucose 103 74-106 mg/dL Problem List/Assessment/Plan Problem List/Assessment/Plan 01/14/25 afebrile, low dose BP support, received transfusion, I believe her decreased hematocrit is due to hemodilution. abdomen non distended, soft, wound clean and well approximated, drainage serous . remains intubated and sedated 01/16/25 ALKALOSIS, ABDOMEN NON DISTENDED, SOFT, DRAINAGE SEROUS, WOUND CLEAN AND WELL APPROXIMATED 01/17/25 improved, thrombocytopenia possibly made worse by Fluconazole,will DC, abdomen non distended, wound well approximated without infection, TATY drainage serous, CVP 6, good urine output. 01/18/25 abg reviewed, ,abdomen soft, non distended, TATY drainage clear serous, no bowel activity, febrile, urine output ok, continues with thrombocytopenia,pt and inr slightly elevated. prognosis grave. 01/20/25remains sedated on ventilator, abdomen soft, non distended, faint bowel sounds auscultated by nurse, wound clean and well approximated, TATY drainage clear serous. continues with thrombocytopenia, still behind on intravascular volume( BUN and Creatinine elevated), i would give more IV fluids and DC vancomycin. 01/25/25 afebrile, normotensive, wound clean and well approximated, TATY drainage serous, abdomen non distended, soft, gastrografin small bowel series shows non obstructed GI tract and no evidence of extravasation. It is OK to initiate enteric feedings. 01/29/25 16 DAYS POST OPERATIVELY TRHE TATY DRAINAGE WHICH HAD CONSISTENTLY BEEN SEROUS OR SERO SANGUINEOUS HAS BECOME "DIRTY" BROWNISH DISCOLORATION, HER WOUND IS CLEAN AND WELL APPROXIMATED AND HER ABDOMEN IS SOFT AND NON DISTENDED, CT SCAN SHOWS SO0ME FLUID AND ACCUMULATION OF FLUID AROUND THE SPLEEN, WILL REQUEST CT GUIDED ASPIRATION OF SAME, WILL ORDER IRRIGATION OF DRAINS. SHE SI AFEBRILE AND MAINTAINS NORMAL BLOOD PRESSURE, HER WBC IS NORMAL. 01/30/25 improved, awake, being weaned off vent. abdomen non distended, non tender, taty drainage clearing with irrigation 02/02/25clinically unchanged, gastrografin small bowel series reported and normal, no extravasation reported, will order a follow ujp KUB for tomorrow AM 02/03/25 PATIENT HAD A GASTROGRAFIN SMALL BOWEL SERIES AND A FOLLOW UP KUB X RAYS NEITHER ONE OF WHICH SHOW EXTRAVASATION OF CONTRAST OR EVIDENCE OF FREE CONTRAST IN THE PERITONEAL CAVITY. THERE IS HOWEVER VISCOUS, BROWNISH FLUID DRAINING VIA BOTH TATY DRAINS AND THROUGH INFRAUMBILICAL PORTION OF MIDLINE WOUND, I REMOVED THE RICHIE FROM THE 3 CM SECTION OF THE INFRAUMBILICAL WOUND AND EVACUATED ABOUT 30 CC OF THIS FLUID AND INSTRUCTED THE NURSE TO PLACE A STOMA APPLIANCE ON THIS OPENING. 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 TODAY HER WBC IS ELEVATED, ABDOMEN CONTINUES TO BE NON DISTENDED, SOFT, BUT SHE DOES HAVE SLIGHT TENDERNESS IN THE PERIUMBILICAL AREA. I WILL TREAT THIS EXPECTANTLY FORM THE TIME BEING IN THE HOPE THAT THIS IS A "CONTROLLED" FISTULA AND HOPEFUL WILL HEAL SPONTANEOUSLY WITH NPO AND NUTRITIONAL SUPPORT. WILL WATCH CLOSELY, AFTER A FEW DAYS WILL GET A FISTULOGRAM TO PIN POINT THE ENTERIC ORIGIN OF THE FISTULIZATION. CONTINUE NGT SUCTION AND DRAIN IRRIGATION ORDERED02/05/25 02/05/25 remains sedated and intubated?ventilated, abdomen non distended soft, wound vac in place. TATY drainage serosanguineous 02/08/25 EXTUBATED, GOOD INSPIRATORY EFFORT, BP NML WITHOUT PRESSOR SUPPORT, ABDOMEN SOFT, NON DISTENDED, APPROPRIATELY TENDER, LABS REVIEWED. NO CHANGES TODAY OTHER THAN ALLOW ICE CHIPS PO. WILL ORDER GASTROGRAFIN SMALL BOWEL FOLLOWTHROUGH FOR Friday02/09/25 awake cooperative, wound vac in place, abdomen soft, non distended, appropriately tender, TATY drainage brownish discoloration, will irrigate, her WBC is normal and she is afebrile and normotensive. gastrografin tomorrow 02/10/25 AWAKE,COMFORTABLE, DENIES PAIN, ABDOMEN NON DISTENDED APPROPRIATELY TENDER, WOUND CLEAN AND WELL APPROXIMATED, DRAINS BEING IRRIGATED, LABS OK, GOOD URINE OUTPUT. "SURGICALLY" STABLE 02/11/25 feels well, passing flatus. is hungry, abdomen soft non distended, drainage clearing with irrigation, will wait for Gastrografin small bowel series to be completed, if normal will start po clear liquids 02/12/25 no nausea, change in TATY drainage colort, appears to contaIN, BILE, WILL DC po CLEAR LIQUIDS, CONTINUE ICE CGHIPS, SEND DRAin fluid for amylase and bilirubin, 02/13/25 states she feels well, abdomen non tender, non distended, wound clean and well approximated. drainage slightly clearer, keep npo for now, needs to resume TPN 02/14/25 PATIENT C/O BEING COLD BUT HAS NO PAIN, DRAINAGE SEEMS TO BE CLEARING, SHE HAD A BOWEL MOVEMENTS, ABDOMEN IS SOFT AND NON TENDER, NON DISTENDED, WOUND IS CLEAN AND WELL APPROXIMATED, WILL CONTINUE NPO STATUS AMYLASE ON TATY DRAINAGE FLUID IS GOING TO TAKE SEVERAL DAYS TO BECOME AVAILABLE. CONTINUE TPN 02/16/25 DENIES PAIN,STATES SHE FEELS BETTER, WOUND VAC IN PLACE, ABDOMEN NON TENDER,NON DISTENDED, TATY DRAINAGE SMALL TO MODERATE , WILL CONTINUE IRRIGATING DRAINS, WILL REQUEST GI CONSULT TO CONSIDER ENDOSCOPY. WBC NL,H/H STABLE , ALBUMIN STILL VERY LOW. , 02/17/25 CT SCAN REVIEWED, I SUSPECT THERE IS A SMALL LEAK FROM THE APPEARANCE OF IMAGING ALTHOUGH RADIOLOGIST RECOMMENDED REPEAT CT SCAN (ORDERED). THE DRAINAGE IS SMALL AMOUNT BUT NOW IT IS WITH AN ODOR, I WILL RE INSERT NGT TO ATTEMPT DECREASING THE GASTRIC CONTENTS. ABDOMEN IS SOFT, APPROPRIATELY TENDER, WOUND VAC IN PLACE 02/18/25 AFEBRILE, NORMOTENSIVE4, WBC NL, ALL IMAGING NEGATIVE, ANGIOGRAM SHOWS NO EVIDENCE OF HYPOPERFUSION, CONTRAST AND NON CONTRAST CT SCAN FAILED TO SHOW ANY EVIDENCE OF EXTRAVASATION, THE DRAINAGE CONTINUES TO BE BROWNISH DISCOLORED AND FOULS SMELLING, EXPLAINED TO PT'S SON THAT I HAVE NO EVIDENCE OF ANY GI LEAKAGE, WILL GET A GASTROGRAFIN ENEMA ON FRIDAY, I AM TRYING TO REFRAIN FROM OPERATING ON THE FRAIL ELDERLY PATIENT FOR THE THIRD TIME, SHE WILL NOT TOLERATE ANOTHYER OPERATION WELL. HER ALBUMIN REMAINS VERY LOW.WOUND VAC OK 02/19/25 feels ok,c/o being cold, abdomen soft. non distended, minimally tender, drainage seems to be little less, labs ok, continue as is 02/22/25 she feels well, abdomen is non tender, soft and non distended, drainage slightly less in volume, still discolored,gastrografin enema reviewed by me ( no radiologist/s interpretation available), she has not evacuated the gastrografin according to nurse. 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 will proceed with operation on 02/25/25 at 0715 AM. 02/27/25 SLIGHT IMPROVEMENT, ABDOMEN SOFT, NON DISTENDED, STOMA VIABLE WITHOUT FUNCTION, OK TO TRY GETTING OFF VENTILATOR. 03/01/25 extubated, conversant,oriented, abdomen non distended, appropriately tender, wound clean ans well approximated, drainage serous, stoma viable and with minimal liquid,no gas. will sips of water and ice po 03/02/25 awake comfortable, denies pain, abdomen appropriately tender, wound vac in place, afebrile, normotensive, drainage serosanguineous, cbc stable, stoma viable and with minimal output will resume irrigation of drain 03/03/25 awake ,cooperative, good inspiratory effort, afebrile, normotensive, wound covered with wound vac, drainage serous but cloudy(cultures ordered) abdomen non tender, stoma viable with minimal output. will order gastrografin ugi with small bowel follow throught for tomorow 03/04/25 vital signs stable, good urine output, wound vac ok, abdomen non tender. Xray pending 03/05/25 UGI X RAY SHOWS A NEW AREA OF LEAK,BEING ADEQUATELY DRAINED BY THE TATY DRAIN WHICH IS ADJACENT TO IT, HER ABDOMEN IS NON TENDER. WILL RESUME STRICT NPO STATUS, KEEP NGT TO CONTINUOUS SUCTION, I HAVE CALLED HER SON ILIANA AND EXPLAINED THAT PROBABLY THE INTESTINAL WALL IS NOT HEALING WHENEVER WE PLACE SUTURE AT SITES OF ANASTOMOSES. HER ABDOMEN IS NON TENDER, I WILL TREAT THIS CONSERVATIVELY FOR SOME TIME TO SEE IF THE LEAK MAY SHOW SOME EVIDENCE OF HEALING. YESTERDAY THERE WAS 500 CC OF TATY DRAINAGE. HER ALBUMIN LEVEL IS SLOWLY IMPROVING BUT STILL REMAINS LOW. IT APPEARS THAT THE SUTURES IN HER INTESTINAL ANASTOMOSES HOLD FOR ABOUT A WEEK AND THEN BREAK DOWN. (DRAINAGE TURNED FROM SEROSANGUINEOUS TO GREENISH YESTERDAY. 03/06/25 drainage slightly less in volume, still enteric contents abdomen softn and non tender, non distended. wound vac changed, wound healing, no chjanges for now. discussed with family. Plan discussed with: Patient, Spouse, Son Dietary Evaluation Review Comments: Nutrition Recommendation: 1) TPN to meet at least 75% estimated needs within 7 days 2) Monitor NPO status, lab values, wt trend, I/O Expected Outcomes/Goals: To meet >75% estimated needs Lab values to improve Fu 2-3 days Is there a minimum of two crit: Yes MELVA RAMESH MD Mar 06, 2025 10:32
--- NOTE | 2025-03-06 19:47 | DVHPNRES ---
Progress Note Date Seen: Mar 06, 2025 Resident Creating Document: KEVIN CONDE RESIDENT Has the PT tested + for MRSA If YES, has PT been informed?: No Medical Necessity Reason Pt with a Central, PICC or Fol: Yes The following are medically ne: Central Line, Leach Catheter Reason for leach catheter: Strict I&O Subjective Review of Systems This is a 80-year-old lady with past medical history of hypertension, AFib (on Eliquis), diabetes type 2, CKD, came to the hospital due to abdominal pain, and constipation. Admitted on 01/13/2025. Found to have peritonitis due to bowel perforation, and underwent emergent laparotomy with subsequent resection of perforated small bowel and enteroenterostomy. Due to abnormal CARMEN drainage, second exploratory laparotomy performed on 02/04 and found to have perforation near to previous perforation area, underwent resection of area with subsequent anastomosis of proximal jejunal loops. Patient seen and examined at bed side. Continue NPO. Contrast extravastion seen in the proximal small bowel. Continue with Protonix drip. Continue with surgery team. No any other new complaint. Objective vital signs Vital Sign Date Time Temp Pulse Resp B/P (MAP) Pulse Ox O2 Delivery O2 Flow Rate FiO2 03/06/25 18:00 102 03/06/25 18:00 16 99 Nasal Cannula* 2 28 03/06/25 16:58 113/54 03/06/25 16:00 98.6 98.6 Total Intake and Output 03/05/25 03/05/25 03/06/25 15:00 23:00 07:00 Intake Total 861 ml 772 ml 721 ml Output Total 1200 ml 1125 ml Balance 861 ml -428 ml -404 ml medications Current Medications Medications Dose Ordered Sig/Isaura Route Start Time Stop Time Status Last Admin Dose Admin Cefazolin Sodium 50 ml @ 100 mls/hr Q8HR IV 01/13/25 14:00 UNV Vasopressin 20 units/Sodium Chloride 100 ml @ 9 mls/hr Q11H7M IV 01/13/25 18:45 UNV Potassium Chloride 100 ml @ 50 mls/hr Q2H IV 01/16/25 12:45 01/16/25 18:44 UNV Vancomycin HCl 100 ml @ 100 mls/hr DAILY@1200 IV 01/20/25 12:00 UNV Amino Acids 0 ml @ 0 mls/hr PER PHARMACY IV 10/5/25 10:45 Ondansetron HCl 4 mg Q4HPRN PRN IV 02/21/25 09:30 02/24/25 10:45 4 MG Micafungin Sodium 100 mg/Sodium Chloride 100 ml @ 100 mls/hr DAILY IV 02/22/25 10:00 03/06/25 10:41 100 MLS/HR Trimethoprim/ Sulfamethoxazole 0 ml @ 0 mls/hr PER PHARMACY IV 02/21/25 17:00 Multi-Ingredient Ointment 1 applic DAILY TOP 02/23/25 10:00 03/06/25 10:59 1 APPLIC Hydromorphone HCl 1 mg Q4HPRN PRN IV 02/23/25 13:30 03/06/25 16:28 1 MG Acetaminophen 650 mg Q4HP PRN PO 02/24/25 02:00 Lidocaine 1 patch DAILY@0230 TOP 02/24/25 02:30 03/06/25 02:30 1 PATCH Norepinephrine Bitartrate 250 ml @ 3.75 mls/hr Q24H IV 02/25/25 11:45 02/26/25 11:51 7.5 MLS/HR Meropenem 50 ml @ 17 mls/hr Q12HR@0800,2000 IV 02/26/25 08:00 03/06/25 08:18 17 MLS/HR Acetaminophen 650 mg Q6HP PRN SC 02/26/25 09:00 Diagnostic Test (Pha) 1 strip Q4HR 02/26/25 16:00 Cancel Dextrose 50 ml UD PRN IV 02/26/25 14:15 Diagnostic Test (Pha) 1 strip IQ4HR 02/26/25 16:00 UNV Dextrose 50 ml UD PRN IV 02/26/25 16:00 UNV Trimethoprim/ Sulfamethoxazole 15 ml/Dextrose 265 ml @ 176.667 mls/hr Q8H IV 02/28/25 20:00 03/06/25 12:02 176.667 MLS/HR Insulin Human Regular Q6HR SC 03/02/25 12:00 03/03/25 12:05 2 UNITS Pantoprazole Sodium 50 ml @ 10 mls/hr Q5H IV 03/05/25 08:00 03/06/25 16:27 10 MLS/HR Fat Emulsion Intravenous 100 ml/Sodium Acetate 20 meq/Sodium Phosphate 20 meq/ Magnesium Sulfate 4 meq/ Multivitamins 10 ml/Insulin Human Regular 10 units/ Amino Acids/ Dextrose/Purified Water 1,126.1 ml @ 47 mls/hr [id number] IV 03/05/25 22:00 03/06/25 21:59 03/05/25 22:01 47 MLS/HR Fat Emulsion Intravenous 100 ml/Sodium Acetate 60 meq/Potassium Phosphate 22 meq/ Magnesium Sulfate 6 meq/ Multivitamins 10 ml/Insulin Human Regular 10 units/ Amino Acids/ Dextrose/Purified Water 1,146.6 ml @ 48 mls/hr [id number] IV 03/06/25 22:00 03/07/25 21:59 Examination General Appearance: Alert and Oriented x2 HEENT: Atraumatic, Mucous membranes moist/pink Respiratory: Clear to auscultation, Normal air movement, No added sounds Cardiovascular: Regular rate, Normal S1, Normal S2, No murmurs Abdominal: Active bowel sounds, Soft, no distention, no tenderness, colostomy bag in place with 1 CARMEN drain Extremities: There is bilateral upper extremity edema, with seeping fluid Skin: No Significant rash, except past surgical scars Neuro: more alert and oriented Nurse was there as research physiologist during examination laboratory and microbiology Laboratory Tests 03/06/25 03:11 Test 03/06/25 03:11 Range/Units Serum Glucose 103 74-106 mg/dL Microbiology Date/Time Source Procedure Growth Status 03/02/25 16:00 Urine - Leach [place] Urine Culture - Preliminary Resulted 03/02/25 16:00 Aspirate Gram Stain - Final Resulted 03/02/25 16:00 Aspirate Body Fluid Culture - Preliminary Resulted 02/25/25 21:39 Blood Blood Culture - Final NO GROWTH AFTER 5 DAYS OF INCUBATION. Complete 02/25/25 11:48 Sputum Gram Stain - Final Complete 02/25/25 11:48 Sputum Respiratory Culture - Final Complete 01/13/25 17:10 Nose MRSA Screen - Final Complete Problem List/Assessment/Plan Problem List/Assessment/Plan Neurology # Chronic ischemic changes # Chronic Cortical atrophy - Head CT (01/29): Chronic microangiopathy and cortical atrophy. - reintubated on 02/25/25 during surgery # Extubated on 02/28 Cardiovascular # Septic shock secondary to hollow viscus perforation. # Paroxysmal atrial fibrillation with a second-degree hypercoagulable state currently NSR # Chronic diastolic heart failure with preserved EF 65% # Hypertension. - Echocardiogram (01/15): Normal LV EF (65%), mild LVH, mild LV diastolic dysfunction. - Chest X-ray: Bibasilar atelectasis. - ZEFERINO?DS?-VASc score >5 - cardiology on board - initially on Lovenox therapeutic but Dc'd due to low hemoglobin - Labetalol PRN Pulmonary # Acute hypoxic respiratory failure secondary to bilateral pleural effusion/pneumonia s/p re-intubation, status post extubation 02/28 - monitor with daily CXR - Sputum culture 01/29 Presumptive Zoe albicans and : negative - Reintubated on 02/25. - Chest Physiotherapy ongoing. Gastrointestinal / Liver # Acute Bacterial Peritonitis due to small bowel perforation vs Perisplenic abscess. s/p multiple laparotomies # Transaminitis secondary to shock. # Anion gap metabolic acidosis due to bowel ischemia and lactic acidosis - CT abdomen/pelvis (02/16): Pneumoperitoneum, extraluminal contrast, perisplenic/subdiaphragmatic collection (7.1 1.1 cm). - Small bowel series (02/11): Normal. - Gastrografin (02/21): [place]-enteric fistula, contrast leak from distal transverse colon. Procedures: - First laparotomy (01/13): Resection of perforated small bowel, enteroenterostomy. - Second laparotomy (02/04): Resection near previous perforation, jejunal anastomosis. - Third laparotomy (02/25): Resection of distal ileum, end-to-end anastomosis, ileostomy. Cultures: - Peritoneal fluid (01/13): E. coli, Klebsiella pneumoniae (sensitive to meropenem). - Peritoneal fluid (02/17): E. coli, Stenotrophomonas maltophilia. - IR-guided pigtail drain placed; drained 50 cc purulent fluid. - CARMEN drains placed in 4 quadrants initially and now patient has only 1 CARMEN drain - Initially NPO, TPN initiated. - NG tube placed. - IV antimicrobials Bactrim, meropenem and micafungin - Initially patient is on Levofloxacin, Flagyl (02/03); Vancomycin and Meropenem (); Meropenem (); Vancomycin () then eventually switched to above antimicrobials -Gastrografin scan(03/05) showed Contrast extravasation is seen in the proximal small bowel, possibly left sided jejunum near the surgical drain can be seen with a leak. -patient kept NPO Genitourinary / Kidney # ISRRAEL likely secondary to shock/volume depletion- resolved - Nephrology consulted for ISRRAEL. Endocrine # Hypothyroidism: TSH 16.29, normal free T4. # Type 2 diabetes mellitus: HbA1c 8.2%.- # Episodes of hypoglycemia. - continuously monitoring blood glucose and on ISS Metabolic Hypokalemia. Hyperkalemia. Hyponatremia: D5W at 75 mL/hr per nephrology. Hypophosphatemia: given IV phosphate Nutrition: Severe protein malnutrition. Hematology # Acute on chronic anemia (hemodilution/post-surgical). # Severe thrombocytopenia, HIT # Acute DVT of right upper extremity. - Ultrasound (01/17): Partial thrombus in right internal jugular and cephalic veins. - hemoglobin today 6.9, transfused 1 more unit of PRBC 02/28 - Transfused total 8 units PRBC, 2 platelet units. - continuously monitor H&H - hold blood thinners Musculoskeletal / Skin # Rib fracture due to fall. Nutrition: TPN initiated. Bowel Regimen: As needed. GI Prophylaxis: Pantoprazole. DVT Prophylaxis: Lovenox (held/ Dc'd due to low hemoglobin). Lines / Tubes / Devices Airway: Intubated on 01/14, extubated on 02/07, reintubated on 02/25 extubated 02/28 Vascular Access: PICC line placed in right upper thigh on 01/26. Drips: Dc'd pressors and sedatives. Urinary: Leach catheter placed on 01/14, exchanged on 02/14. CARMEN drains in 1 quadrant. Goals of care addressed with patient's family members for more than 29 minutes: Full code status Care plan updated to the patient family . Continue NPO. Continue Protonix drip. Follow with the surgery. Critical care time spent more than 84 minutes excluding procedures and including discussion with the family Case discussed with Dr Carvalho and RN Plan discussed with: Patient, Other (RN) Dietary Evaluation Review Comments: Nutrition Recommendation: 1) TPN to meet at least 75% estimated needs within 7 days 2) Monitor NPO status, lab values, wt trend, I/O Expected Outcomes/Goals: To meet >75% estimated needs Lab values to improve Fu 2-3 days Is there a minimum of two crit: Yes CC Plasma Assessment Blood Product Administration S: [id number] KEVIN CNODE RESIDENT Mar 06, 2025 19:47
[2025-03-06] MEDS: TPN PER PHARMACY IV NR (21:58)
--- NOTE | 2025-03-06 22:07 | DVHPN2 ---
Subjective DOS: 03/06/2025 Patient seen and examined at bedside. Remains on supplemental oxygen Overnight events reviewed. HPI: A 80-year-old woman with past medical history of diabetes mellitus who presented to the ED on 01/13/25 with c/o abdominal pain x4 days. Patient reported 8 - 9/10 pain that was sharp and constant, throughout her abdomen. She did note pain medications make it better. Patient admitted to being noncompliant with her Eliquis for the past 2 weeks. Patient denied any fever, chills, chest pain, shortness of breath, or other acute complaints. She reported falling on her left side on January 06, 2025. Patient does not use home oxygen. Patient was admitted for further care, subsequently found to have perforated bowel and underwent exploratory laparotomy with repair of bowel perforation. Pulmonary consultation was requested for evaluation and management due to acute hypoxic respiratory failure requiring mechanical ventilator. Past Medical History: Diabetes mellitus Past Surgical History: , Hernia Repair Medications: Reviewed. Allergies: No known drug allergies. Family History: Arthritis. No family history of premature CAD. No family history of lung disorders. Social History: Nonsmoker. No alcohol or illicit drug use. Reviewed: Care Plan, H&P Changes from previous H/P or p: No Changes Gastrointestinal: Abdominal Pain Objective Vitals Vital Signs Date Time Temp Pulse Resp B/P (MAP) Pulse Ox O2 Delivery O2 Flow Rate FiO2 03/06/25 21:00 99 18 106/59 (75) 99 03/06/25 20:00 Nasal Cannula* 2 28 03/06/25 20:00 98.4 98.4 Intake/Output Intake and Output 03/06/25 07:00 Intake Total 2354 ml Output Total 2325 ml Balance 29 ml IV Total 2354 ml Output Urine Total 1350 ml Gastric Drainage Total 275 ml Other 700 ml General Appearance: Alert, Oriented X3, No acute distress, Other HEENT: Atraumatic, Mucous membr. moist/pink Neck: Supple Lungs: Clear to auscultation, Other (Decreased air entry bilaterally) Cardiovascular: Regular rate, Normal S1, Normal S2, No murmurs, Gallops, Rubs Abdomen: Normal bowel sounds, Soft, No tenderness Extremities: No clubbing, No cyanosis, No edema Neuro: Strength at 5/5 X4 ext, Sensation intact, Cranial nerves 3-12 NL Psych/Mental Status: Mental status NL, Mood NL Medications Current Medications Medications Dose Ordered Sig/Isaura Route Start Time Stop Time Status Last Admin Dose Admin Cefazolin Sodium 50 ml @ 100 mls/hr Q8HR IV 01/13/25 14:00 UNV Vasopressin 20 units/Sodium Chloride 100 ml @ 9 mls/hr Q11H7M IV 01/13/25 18:45 UNV Potassium Chloride 100 ml @ 50 mls/hr Q2H IV 01/16/25 12:45 01/16/25 18:44 UNV Vancomycin HCl 100 ml @ 100 mls/hr DAILY@1200 IV 01/20/25 12:00 UNV Amino Acids 0 ml @ 0 mls/hr PER PHARMACY IV 02/13/25 10:45 Ondansetron HCl 4 mg Q4HPRN PRN IV 02/21/25 09:30 02/24/25 10:45 4 MG Micafungin Sodium 100 mg/Sodium Chloride 100 ml @ 100 mls/hr DAILY IV 02/22/25 10:00 03/06/25 10:41 100 MLS/HR Trimethoprim/ Sulfamethoxazole 0 ml @ 0 mls/hr PER PHARMACY IV 02/21/25 17:00 Multi-Ingredient Ointment 1 applic DAILY TOP 02/23/25 10:00 03/06/25 10:59 1 APPLIC Hydromorphone HCl 1 mg Q4HPRN PRN IV 02/23/25 13:30 03/06/25 16:28 1 MG Acetaminophen 650 mg Q4HP PRN PO 02/24/25 02:00 Lidocaine 1 patch DAILY@0230 TOP 02/24/25 02:30 03/06/25 02:30 1 PATCH Norepinephrine Bitartrate 250 ml @ 3.75 mls/hr Q24H IV 02/25/25 11:45 02/26/25 11:51 7.5 MLS/HR Meropenem 50 ml @ 17 mls/hr Q12HR@0800,2000 IV 02/26/25 08:00 03/06/25 19:58 17 MLS/HR Acetaminophen 650 mg Q6HP PRN [place] 02/26/25 09:00 Diagnostic Test (Pha) 1 strip Q4HR 02/26/25 16:00 Cancel Dextrose 50 ml UD PRN IV 02/26/25 14:15 Diagnostic Test (Pha) 1 strip IQ4HR 02/26/25 16:00 UNV Dextrose 50 ml UD PRN IV 02/26/25 16:00 UNV Trimethoprim/ Sulfamethoxazole 15 ml/Dextrose 265 ml @ 176.667 mls/hr Q8H IV 02/28/25 20:00 03/06/25 19:58 176.667 MLS/HR Insulin Human Regular Q6HR SC 03/02/25 12:00 03/03/25 12:05 2 UNITS Pantoprazole Sodium 50 ml @ 10 mls/hr Q5H IV 03/05/25 08:00 03/06/25 20:39 10 MLS/HR Fat Emulsion Intravenous 100 ml/Sodium Acetate 20 meq/Sodium Phosphate 20 meq/ Magnesium Sulfate 4 meq/ Multivitamins 10 ml/Insulin Human Regular 10 units/ Amino Acids/ Dextrose/Purified Water 1,126.1 ml @ 47 mls/hr [id number] IV 03/05/25 22:00 03/06/25 21:59 03/05/25 22:01 47 MLS/HR Fat Emulsion Intravenous 100 ml/Sodium Acetate 60 meq/Potassium Phosphate 22 meq/ Magnesium Sulfate 6 meq/ Multivitamins 10 ml/Insulin Human Regular 10 units/ Amino Acids/ Dextrose/Purified Water 1,146.6 ml @ 48 mls/hr [id number] IV 03/06/25 22:00 03/07/25 21:59 Laboratory Results Laboratory Tests 03/06/25 03:11 Chemistry Test 03/06/25 03:11 Albumin 2.5 g/dL (3.2-4.8) L Calcium Level 8.4 mg/dL (8.7-10.4) L Magnesium Level 2.0 mg/dL (1.6-2.6) Phosphorus Level 3.2 mg/dL (2.4-5.1) Total Protein 5.3 g/dL (5.7-8.2) L LFT Test 03/06/25 03:11 Alanine Aminotransferase (ALT) 94 U/L (7-40) H Alkaline Phosphatase 285 U/L (46-116) H Aspartate Amino Transferase (AST) 66 U/L (13-40) H Total Bilirubin 2.1 mg/dL (0.2-1.0) H Urinalysis Test 01/14/25 02:00 Urine Color Yellow (Yellow) Urine Clarity Turbid (Clear) H Urine pH 6.0 (5.0-9.0) Urine Specific [place] 1.016 (1.001-1.035) Urine Protein 1+ (Negative) H Urine Ketones Trace (Negative) Urine Blood 1+ /uL (Negative) H Urine Nitrite Negative (Negative) Urine Bilirubin Negative (Negative) Urine Urobilinogen Normal mg/dL (Negative) Urine Leukocyte Esterase Negative /uL (Negative) Urine RBC 10 /hpf (0 - 4) Urine Microscopic WBC 2 /HPF (0-5) Urine Squamous Epithelial Cells Few /hpf (<5) Urine Amorphous Crystals Few /hpf (None Seen) Urine Bacteria None seen /hpf (None Seen) Urine Creatinine 34.09 mg/dL (30.0-125.0) Urine Protein/Creatinine Ratio 3.85 Urine Sodium 76 mmol/L (40-220) Urine Glucose Normal mg/dL (Normal) Urine Total Protein 131.1 mg/dL (1-14) H Microbiology Microbiology Date/Time Source Procedure Growth Status 03/02/25 16:00 Urine - [place] Urine Culture - Preliminary Resulted 03/02/25 16:00 Aspirate Gram Stain - Final Resulted 03/02/25 16:00 Aspirate Body Fluid Culture - Preliminary Resulted 02/25/25 21:39 Blood Blood Culture - Final NO GROWTH AFTER 5 DAYS OF INCUBATION. Complete 02/25/25 11:48 Sputum Gram Stain - Final Complete 02/25/25 11:48 Sputum Respiratory Culture - Final Complete 01/13/25 17:10 Nose MRSA Screen - Final Complete Assessment/Plan Assessment/Plan Impression: Acute hypoxic respiratory failure Atelectasis Pleural effusion Acute metabolic encephalopathy secondary to acute hypoxic respiratory failure Pulmonary edema due to chronic heart failure with preserved ejection fraction Perforation of small bowel status post exploratory laparotomy Acute on chronic kidney disease secondary to shock, vasomotor nephropathy Anemia Sepsis with septic shock secondary to perforation of small bowel Events: Remains on supplemental oxygen On 2 LPM NC Taper O2 as tolerated HOB elevation Aspiration precautions Gastrografin study, positive for leak. Study demonstrated contrast extravasation is seen in the proximal small bowel, possibly left sided jejunum near the surgical drain can be seen with a leak. Surgery recs appreciated. Poor wound healing, leakage noted. Patient NPO due to leak. TPN for nutritional support On Protonix drip GI recs appreciated. CARMEN drain in LUQ, monitor output NGT with coffee-ground material. Monitor NGT output Hemoglobin trended down to 7.8 g/dL Continue antibiotics/antifungal coverage WBC trended up to 12.6 K. Surgery recommendations appreciated. Continue to monitor hemoglobin Transfuse if less than 7.0 g/dL. Wound consult - follow up recommendations Wound care. Physical Therapy eval. Labs and imaging reviewed. Rest of plan as noted below. Plan: S/p extubation on 03/02/25 Supplemental oxygen Titrate to keep O2 sats above 92%. Continue antibiotics. F/u cultures. Continue antifungal Monitor renal function due to acute kidney injury. Monitor electrolytes. Supplement as necessary. Monitor ins and outs Monitor hemoglobin Transfuse if less than 7.0 g/dL. Follow up GI recommendations Follow up Surgery recommendations Nutritional support. Accu-Cheks, ISS. GI/DVT prophylaxis. Condition: Critical Prognosis: Poor given multiple comorbidities. Rest of plan per hospitalist and other consultants. A total of 35 minutes of critical care time was spent reviewing the patient record, examining the patient, making a diagnostic and therapeutic plan, discussing this plan with the medical personnel, following up on diagnostic studies and following the patient for clinical stability excluding any and all procedures. At least 50% of this time was spent in direct, [id number] contact. Thank you for allowing me to participate in this patient's care. Further recommendations will depend on patient's clinical course. Please do not hesitate to contact me if you have any questions or concerns. This medical document was created using an electronic medical record system with [employer] dictation system. Although this document has been carefully reviewed, there may still be some phonetic and typographical errors. These areas are purely typographical due to imperfections of the software programs, and do not reflect any compromise in the patient's medical care. Plan discussed with: Patient, Other (RN [place]) Visit Coding Pulmonary Billing Provider: MORA LANGSTON MD Date of Service if different f: Mar 06, 2025 Common Visit Codes: 88730-[id number] INP/OBS CARE(HIGH), 19361-[id number] CARE 30-74 MIN MORA LANGSTON MD Mar 06, 2025 22:07
[2025-03-07] VITALS (26 sets, daily range): BP systolic 87–119; BP diastolic 38–68; PULSE 88–122; RESP 11–25; TEMP 98–98.7; O2SAT 87–100
[2025-03-07 04:00] LABS: Hematocrit 21.2 % (36.0-46.0); Hemoglobin 7.3 g/dL (12.2-16.2); Mean Corpuscular Hemoglobin 35.1 pg (28.0-32.0); Mean Corpuscular Volume 101.8 fL (80.0-100.0); Nucleated Red Blood Cells % 0.0 %
[2025-03-07 04:23] LABS: Anion Gap 11 (5-15); BUN/Creatinine Ratio 35.5 (10.0-20.0); Chloride 104 mmol/L (98-107); Glucose 90 mg/dL (74-106); Magnesium 2.0 mg/dL (1.6-2.6); Potassium 3.7 mmol/L (3.5-5.1)
[2025-03-07 04:33] LABS: Alanine Aminotransferase 82 U/L (7-40); Albumin 2.4 g/dL (3.2-4.8); Alkaline Phosphatase 292 U/L (46-116); Bilirubin, Total 2.2 mg/dL (0.2-1.0); Blood Urea Nitrogen 38 mg/dL (9-23); Calcium 8.5 mg/dL (8.7-10.4); Carbon Dioxide 19 mmol/L (20-31); Sodium 134 mmol/L (136-145); Total Protein 5.2 g/dL (5.7-8.2)
[2025-03-07 07:54] LABS: INR 1.14 (0.9-1.15); Partial Thromboplastin Time 29.2 SEC (24.5-34.5); Prothrombin Time 11.9 sec (9.3-11.8)
--- NOTE | 2025-03-07 17:38 | DVHPNRES ---
Progress Note Date Seen: Mar 07, 2025 Resident Creating Document: ASHLEY TREJO RESIDENT Has the PT tested + for MRSA If YES, has PT been informed?: No Medical Necessity Reason Pt with a Central, PICC or Fol: Yes The following are medically ne: Central Line, Leach Catheter Reason for leach catheter: Strict I&O Subjective Review of Systems This is a 80-year-old lady with past medical history of hypertension, AFib (on Eliquis), diabetes type 2, CKD, came to the hospital due to abdominal pain, and constipation. Admitted on 01/13/2025. Found to have peritonitis due to bowel perforation, and underwent emergent laparotomy with subsequent resection of perforated small bowel and enteroenterostomy. Due to abnormal CARMEN drainage, second exploratory laparotomy performed on 02/04 and found to have perforation near to previous perforation area, underwent resection of area with subsequent anastomosis of proximal jejunal loops. Patient seen and examined at bed side. Continue NPO. Patient is on 2 L oxygen, complains of 5/10 back pain. Patient is to continue PT, according to surgery patient might go to another laparotomy surgery. Contrast extravastion seen in the proximal small bowel. Continue with Protonix drip. No other new complaint. Objective vital signs Vital Sign Date Time Temp Pulse Resp B/P (MAP) Pulse Ox O2 Delivery O2 Flow Rate FiO2 03/07/25 16:22 98.4 100 14 111/56 98.4 03/07/25 14:00 100 Nasal Cannula* 2 28 Total Intake and Output 03/06/25 03/06/25 03/07/25 15:00 23:00 07:00 Intake Total 959.334 ml 773 ml 729 ml Output Total 1080 ml 1045 ml Balance 959.334 ml -307 ml -316 ml medications Current Medications Medications Dose Ordered Sig/Isaura Route Start Time Stop Time Status Last Admin Dose Admin Cefazolin Sodium 50 ml @ 100 mls/hr Q8HR IV 01/13/25 14:00 UNV Vasopressin 20 units/Sodium Chloride 100 ml @ 9 mls/hr Q11H7M IV 01/13/25 18:45 UNV Potassium Chloride 100 ml @ 50 mls/hr Q2H IV 01/16/25 12:45 01/16/25 18:44 UNV Vancomycin HCl 100 ml @ 100 mls/hr DAILY@1200 IV 01/20/25 12:00 UNV Amino Acids 0 ml @ 0 mls/hr PER PHARMACY IV 02/13/25 10:45 Ondansetron HCl 4 mg Q4HPRN PRN IV 02/21/25 09:30 02/24/25 10:45 4 MG Micafungin Sodium 100 mg/Sodium Chloride 100 ml @ 100 mls/hr DAILY IV 02/22/25 10:00 03/07/25 09:41 100 MLS/HR Trimethoprim/ Sulfamethoxazole 0 ml @ 0 mls/hr PER PHARMACY IV 02/21/25 17:00 Multi-Ingredient Ointment 1 applic DAILY TOP 02/23/25 10:00 03/07/25 09:41 1 APPLIC Hydromorphone HCl 1 mg Q4HPRN PRN IV 02/23/25 13:30 03/07/25 10:28 1 MG Acetaminophen 650 mg Q4HP PRN PO 02/24/25 02:00 Lidocaine 1 patch DAILY@0230 TOP 02/24/25 02:30 03/07/25 03:34 1 PATCH Norepinephrine Bitartrate 250 ml @ 3.75 mls/hr Q24H IV 02/25/25 11:45 02/26/25 11:51 7.5 MLS/HR Meropenem 50 ml @ 17 mls/hr Q12HR@0800,2000 IV 02/26/25 08:00 03/07/25 09:41 17 MLS/HR Acetaminophen 650 mg Q6HP PRN [place] 02/26/25 09:00 Diagnostic Test (Pha) 1 strip Q4HR 02/26/25 16:00 Cancel Dextrose 50 ml UD PRN IV 02/26/25 14:15 Diagnostic Test (Pha) 1 strip IQ4HR 02/26/25 16:00 UNV Dextrose 50 ml UD PRN IV 02/26/25 16:00 UNV Trimethoprim/ Sulfamethoxazole 15 ml/Dextrose 265 ml @ 176.667 mls/hr Q8H IV 02/28/25 20:00 03/07/25 14:24 176.667 MLS/HR Insulin Human Regular Q6HR SC 03/02/25 12:00 03/03/25 12:05 2 UNITS Pantoprazole Sodium 50 ml @ 10 mls/hr Q5H IV 03/05/25 08:00 03/07/25 09:41 10 MLS/HR Fat Emulsion Intravenous 100 ml/Sodium Acetate 60 meq/Potassium Phosphate 22 meq/ Magnesium Sulfate 6 meq/ Multivitamins 10 ml/Insulin Human Regular 10 units/ Amino Acids/ Dextrose/Purified Water 1,146.6 ml @ 48 mls/hr [id number] IV 03/06/25 22:00 03/07/25 21:59 03/06/25 21:58 48 MLS/HR Fat Emulsion Intravenous 100 ml/Sodium Acetate 60 meq/Sodium Phosphate 20 meq/ Potassium Acetate 40 meq/Magnesium Sulfate 6 meq/ Multivitamins 10 ml/Chromium/ Copper/Manganese/ Zinc 1 ml/Insulin Human Regular 5 units/Amino Acids/ Dextrose/Purified Water 1,217.55 ml @ 51 mls/hr [id number] IV 03/07/25 22:00 03/08/25 21:59 Examination Pt is lying on bed General Appearance: Alert and Oriented x2 HEENT: Atraumatic, Mucous membranes moist/pink Respiratory: Clear to auscultation, Normal air movement, No added sounds Cardiovascular: Regular rate, Normal S1, Normal S2, No murmurs Abdominal: Active bowel sounds, Soft, no distention, no tenderness, colostomy bag in place with 1 CARMEN drain Extremities: There is bilateral upper extremity edema, with seeping fluid Skin: No Significant rash, except past surgical scars Neuro: more alert and oriented Nurse was there as hotel reservationist during examination laboratory and microbiology Laboratory Tests 03/07/25 03:24 Test 03/07/25 03:24 Range/Units Serum Glucose 90 74-106 mg/dL Microbiology Date/Time Source Procedure Growth Status 03/02/25 16:00 Urine - [place] Urine Culture - Preliminary Resulted 03/02/25 16:00 Aspirate Gram Stain - Final Resulted 03/02/25 16:00 Body Fluid Culture - Preliminary Enterococcus faecium - VRE Resulted 02/25/25 21:39 Blood Blood Culture - Final NO GROWTH AFTER 5 DAYS OF INCUBATION. Complete 02/25/25 11:48 Sputum Gram Stain - Final Complete 02/25/25 11:48 Sputum Respiratory Culture - Final Complete 01/13/25 17:10 Nose MRSA Screen - Final Complete Problem List/Assessment/Plan Problem List/Assessment/Plan Neurology # Chronic ischemic changes # Chronic Cortical atrophy - Head CT (01/29): Chronic microangiopathy and cortical atrophy. - reintubated on 02/25/25 during surgery # Extubated on 02/28 Cardiovascular # Septic shock secondary to hollow viscus perforation. # Paroxysmal atrial fibrillation with a second-degree hypercoagulable state currently NSR # Chronic diastolic heart failure with preserved EF 65% # Hypertension. - Echocardiogram (01/15): Normal LV EF (65%), mild LVH, mild LV diastolic dysfunction. - Chest X-ray: Bibasilar atelectasis. - ZEFERINO?DS?-VASc score >5 - cardiology on board - initially on Lovenox therapeutic but Dc'd due to low hemoglobin - Labetalol PRN Pulmonary # Acute hypoxic respiratory failure secondary to bilateral pleural effusion/pneumonia s/p re-intubation, status post extubation 02/28 - monitor with daily CXR - Sputum culture 01/29 Presumptive Zoe albicans and : negative - Reintubated on 02/25. - Chest Physiotherapy ongoing. - extubated today Gastrointestinal / Liver # Acute Bacterial Peritonitis due to small bowel perforation vs Perisplenic abscess. s/p multiple laparotomies # Transaminitis secondary to shock. # Anion gap metabolic acidosis due to bowel ischemia and lactic acidosis - CT abdomen/pelvis (02/16): Pneumoperitoneum, extraluminal contrast, perisplenic/subdiaphragmatic collection (7.1 1.1 cm). - Small bowel series (02/11): Normal. 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 Procedures: - First laparotomy (01/13): Resection of perforated small bowel, enteroenterostomy. - Second laparotomy (02/04): Resection near previous perforation, jejunal anastomosis. - Third laparotomy (02/25): Resection of distal ileum, end-to-end anastomosis, ileostomy. Cultures: - Peritoneal fluid (01/13): E. coli, Klebsiella pneumoniae (sensitive to meropenem). - Peritoneal fluid (02/17): E. coli, Stenotrophomonas maltophilia. - IR-guided pigtail drain placed; drained 50 cc purulent fluid. - CARMEN drains placed in 4 quadrants initially and now patient has only 1 CARMEN drain - Initially NPO, TPN initiated. - NG tube placed. - IV antimicrobials Bactrim, meropenem and micafungin - Initially patient is on Levofloxacin, Flagyl (02/03); Vancomycin and Meropenem (); Meropenem (); Vancomycin () then eventually switched to above antimicrobials -Gastrografin scan(03/05) showed Contrast extravasation is seen in the proximal small bowel, possibly left sided jejunum near the surgical drain can be seen with a leak. -patient kept NPO Genitourinary / Kidney # ISRRAEL likely secondary to shock/volume depletion- resolved - Nephrology consulted for ISRRAEL. Endocrine # Hypothyroidism: TSH 16.29, normal free T4. # Type 2 diabetes mellitus: HbA1c 8.2%.- # Episodes of hypoglycemia. - continuously monitoring blood glucose and on ISS Metabolic Hypokalemia. Hyperkalemia. Hyponatremia: D5W at 75 mL/hr per nephrology. Hypophosphatemia: given IV phosphate Nutrition: Severe protein malnutrition. Hematology # Acute on chronic anemia (hemodilution/post-surgical). # Severe thrombocytopenia, HIT # Acute DVT of right upper extremity. - Ultrasound (01/17): Partial thrombus in right internal jugular and cephalic veins. - hemoglobin today 6.9, transfused 1 more unit of PRBC 02/28 - Transfused total 8 units PRBC, 2 platelet units. - continuously monitor H&H - hold blood thinners Musculoskeletal / Skin # Rib fracture due to fall. Nutrition: TPN initiated. Bowel Regimen: As needed. GI Prophylaxis: Pantoprazole. DVT Prophylaxis: Lovenox (held/ Dc'd due to low hemoglobin). Lines / Tubes / Devices Airway: Intubated on 01/14, extubated on 02/07, reintubated on 02/25 extubated 02/28 Vascular Access: PICC line placed in right upper thigh on 01/26. Drips: Dc'd pressors and sedatives. Urinary: Leach catheter placed on 01/14, exchanged on 02/14. CARMEN drains in 1 quadrant. Goals of care addressed with patient's family members for more than 29 minutes: Full code status Care plan updated to the patient family Chris (son) on bedside and addressed all concerns Critical care time spent more than 83 minutes excluding procedures and including discussion with the family Case discussed with Dr Self and RN Plan discussed with: Patient, Son Dietary Evaluation Review Comments: Nutrition Recommendation: 1) TPN to meet at least 75% estimated needs within 7 days 2) Monitor NPO status, lab values, wt trend, I/O Expected Outcomes/Goals: To meet >75% estimated needs Lab values to improve Fu 2-3 days Is there a minimum of two crit: Yes CC Plasma Assessment Blood Product Administration S: [id number] Date of Service: Mar 07, 2025 Billing Provider: ZBIGNIEW SELF MD Common Visit Codes: 23057-[id number] CARE 30-74 MIN, 86314-[id number] CARE-EACH +30MIN ASHLEY TREJO RESIDENT Mar 07, 2025 17:38 ZBIGNIEW SELF MD Mar 08, 2025 13:54
[2025-03-07] MEDS: TPN PER PHARMACY IV NR (22:06)
[2025-03-08] VITALS (25 sets, daily range): BP systolic 91–117; BP diastolic 46–81; PULSE 91–139; RESP 13–22; TEMP 97.9–98.6; O2SAT 88–100
[2025-03-08 04:08] LABS: Hematocrit 26.5 % (36.0-46.0); Hemoglobin 9.0 g/dL (12.2-16.2); Mean Corpuscular Hemoglobin 32.9 pg (28.0-32.0); Mean Corpuscular Volume 96.3 fL (80.0-100.0); Nucleated Red Blood Cells % 0.0 %
[2025-03-08 04:17] LABS: Anion Gap 13 (5-15); BUN/Creatinine Ratio 39.8 (10.0-20.0); Carbon Dioxide 20 mmol/L (20-31); Chloride 104 mmol/L (98-107); Magnesium 1.9 mg/dL (1.6-2.6); Potassium 3.5 mmol/L (3.5-5.1); Sodium 137 mmol/L (136-145)
[2025-03-08 04:23] LABS: Alanine Aminotransferase 79 U/L (7-40); Albumin 2.2 g/dL (3.2-4.8); Alkaline Phosphatase 287 U/L (46-116); Bilirubin, Total 2.6 mg/dL (0.2-1.0); Blood Urea Nitrogen 41 mg/dL (9-23); Calcium 8.2 mg/dL (8.7-10.4); Glucose 117 mg/dL (74-106); Total Protein 4.9 g/dL (5.7-8.2)
--- NOTE | 2025-03-08 06:51 | DVHPNRES ---
Progress Note Date Seen: Mar 08, 2025 Resident Creating Document: ASHLEY TREJO RESIDENT Has the PT tested + for MRSA If YES, has PT been informed?: No Medical Necessity Reason Pt with a Central, PICC or Fol: Yes The following are medically ne: PICC Line, Leach Catheter Reason for leach catheter: Strict I&O Subjective Review of Systems This is a 80-year-old lady with past medical history of hypertension, AFib (on Eliquis), diabetes type 2, CKD, came to the hospital due to abdominal pain, and constipation. Admitted on 01/13/2025. Found to have peritonitis due to bowel perforation, and underwent emergent laparotomy with subsequent resection of perforated small bowel and enteroenterostomy. Due to abnormal CARMEN drainage, second exploratory laparotomy performed on 02/04 and found to have perforation near to previous perforation area, underwent resection of area with subsequent anastomosis of proximal jejunal loops. Patient seen and examined at bed side. Continue NPO. Patient is on 2 L oxygen, complains of 5/10 back pain. Patient is to continue PT, according to surgery patient might go to another laparotomy surgery. Contrast extravasation seen in the proximal small bowel. Stopped Protonix Drip. No other new complaint. Started on daptomycin. 100 mL drainage from NG tube, 210 mL drainage from CARMEN drain. Surgery commented Conservative management. Objective vital signs Vital Sign Date Time Temp Pulse Resp B/P (MAP) Pulse Ox O2 Delivery O2 Flow Rate FiO2 03/08/25 06:00 91 03/08/25 06:00 19 98 Nasal Cannula* 2 28 03/08/25 05:00 113/65 (81) 03/08/25 04:00 98.6 98.6 Total Intake and Output 03/07/25 03/07/25 03/08/25 15:00 23:00 07:00 Intake Total 454 ml 1034 ml 427 ml Output Total 1300 ml 870 ml Balance 454 ml -266 ml -443 ml medications Current Medications Medications Dose Ordered Sig/Isaura Route Start Time Stop Time Status Last Admin Dose Admin Cefazolin Sodium 50 ml @ 100 mls/hr Q8HR IV 01/13/25 14:00 UNV Vasopressin 20 units/Sodium Chloride 100 ml @ 9 mls/hr Q11H7M IV 01/13/25 18:45 UNV Potassium Chloride 100 ml @ 50 mls/hr Q2H IV 01/16/25 12:45 01/16/25 18:44 UNV Vancomycin HCl 100 ml @ 100 mls/hr DAILY@1200 IV 01/20/25 12:00 UNV Amino Acids 0 ml @ 0 mls/hr PER PHARMACY IV 02/13/25 10:45 Ondansetron HCl 4 mg Q4HPRN PRN IV 02/21/25 09:30 02/24/25 10:45 4 MG Micafungin Sodium 100 mg/Sodium Chloride 100 ml @ 100 mls/hr DAILY IV 02/22/25 10:00 03/07/25 09:41 100 MLS/HR Trimethoprim/ Sulfamethoxazole 0 ml @ 0 mls/hr PER PHARMACY IV 02/21/25 17:00 Multi-Ingredient Ointment 1 applic DAILY TOP 02/23/25 10:00 03/07/25 09:41 1 APPLIC Hydromorphone HCl 1 mg Q4HPRN PRN IV 02/23/25 13:30 03/08/25 01:03 1 MG Acetaminophen 650 mg Q4HP PRN PO 02/24/25 02:00 Lidocaine 1 patch DAILY@0230 TOP 02/24/25 02:30 03/07/25 03:34 1 PATCH Norepinephrine Bitartrate 250 ml @ 3.75 mls/hr Q24H IV 02/25/25 11:45 02/26/25 11:51 7.5 MLS/HR Meropenem 50 ml @ 17 mls/hr Q12HR@0800,2000 IV 02/26/25 08:00 03/07/25 19:36 17 MLS/HR Acetaminophen 650 mg Q6HP PRN [place] 02/26/25 09:00 Diagnostic Test (Pha) 1 strip Q4HR 02/26/25 16:00 Cancel Dextrose 50 ml UD PRN IV 02/26/25 14:15 Diagnostic Test (Pha) 1 strip IQ4HR 02/26/25 16:00 UNV Dextrose 50 ml UD PRN IV 02/26/25 16:00 UNV Trimethoprim/ Sulfamethoxazole 15 ml/Dextrose 265 ml @ 176.667 mls/hr Q8H IV 02/28/25 20:00 03/08/25 04:40 176.667 MLS/HR Insulin Human Regular Q6HR SC 03/02/25 12:00 03/03/25 12:05 2 UNITS Pantoprazole Sodium 50 ml @ 10 mls/hr Q5H IV 03/05/25 08:00 03/08/25 02:05 10 MLS/HR Fat Emulsion Intravenous 100 ml/Sodium Acetate 60 meq/Sodium Phosphate 20 meq/ Potassium Acetate 40 meq/Magnesium Sulfate 6 meq/ Multivitamins 10 ml/Chromium/ Copper/Manganese/ Zinc 1 ml/Insulin Human Regular 5 units/Amino Acids/ Dextrose/Purified Water 1,217.55 ml @ 51 mls/hr [id number] IV 03/07/25 22:00 03/08/25 21:59 03/07/25 22:06 51 MLS/HR Examination Pt is lying on bed General Appearance: Alert and Oriented x2 HEENT: Atraumatic, Mucous membranes moist/pink Respiratory: Clear to auscultation, Normal air movement, No added sounds Cardiovascular: Regular rate, Normal S1, Normal S2, No murmurs Abdominal: Active bowel sounds, Soft, no distention, no tenderness, colostomy bag in place with 1 CARMEN drain Extremities: There is bilateral upper extremity edema, with seeping fluid Skin: No Significant rash, except past surgical scars Neuro: more alert and oriented Nurse was there as printer operator during examination laboratory and microbiology Laboratory Tests 03/08/25 03:30 Test 03/08/25 03:30 Range/Units Serum Glucose 117 H 74-106 mg/dL Microbiology Date/Time Source Procedure Growth Status 03/02/25 16:00 Urine - Le[place] Urine Culture - Preliminary Resulted 03/02/25 16:00 Aspirate Gram Stain - Final Resulted 03/02/25 16:00 Body Fluid Culture - Preliminary Enterococcus faecium - VRE Resulted 02/25/25 21:39 Blood Blood Culture - Final NO GROWTH AFTER 5 DAYS OF INCUBATION. Complete 02/25/25 11:48 Sputum Gram Stain - Final Complete 02/25/25 11:48 Sputum Respiratory Culture - Final Complete 01/13/25 17:10 Nose MRSA Screen - Final Complete Problem List/Assessment/Plan Problem List/Assessment/Plan Neurology # Chronic ischemic changes # Chronic Cortical atrophy - Head CT (01/29): Chronic microangiopathy and cortical atrophy. - reintubated on 02/25/25 during surgery # Extubated on 02/28 Cardiovascular # Septic shock secondary to hollow viscus perforation. # Paroxysmal atrial fibrillation with a second-degree hypercoagulable state currently NSR # Chronic diastolic heart failure with preserved EF 65% # Hypertension. - Echocardiogram (01/15): Normal LV EF (65%), mild LVH, mild LV diastolic dysfunction. - Chest X-ray: Bibasilar atelectasis. - ZEFERINO?DS?-VASc score >5 - cardiology on board - initially on Lovenox therapeutic but Dc'd due to low hemoglobin - Labetalol PRN Pulmonary # Acute hypoxic respiratory failure secondary to bilateral pleural effusion/pneumonia s/p re-intubation, status post extubation 02/28 - monitor with daily CXR - Sputum culture 01/29 Presumptive Zoe albicans and : negative - Reintubated on 02/25. - Chest Physiotherapy ongoing. - extubated today Gastrointestinal / Liver # Acute Bacterial Peritonitis due to small bowel perforation vs Perisplenic abscess. s/p multiple laparotomies # Transaminitis secondary to shock. # Anion gap metabolic acidosis due to bowel ischemia and lactic acidosis - CT abdomen/pelvis (02/16): Pneumoperitoneum, extraluminal contrast, perisplenic/subdiaphragmatic collection (7.1 1.1 cm). - Small bowel series (02/11): Normal. 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 Procedures: - First laparotomy (01/13): Resection of perforated small bowel, enteroenterostomy. - Second laparotomy (02/04): Resection near previous perforation, jejunal anastomosis. - Third laparotomy (02/25): Resection of distal ileum, end-to-end anastomosis, ileostomy. Cultures: - Peritoneal fluid (01/13): E. coli, Klebsiella pneumoniae (sensitive to meropenem). - Peritoneal fluid (02/17): E. coli, Stenotrophomonas maltophilia. - IR-guided pigtail drain placed; drained 50 cc purulent fluid. - CARMEN drains placed in 4 quadrants initially and now patient has only 1 CARMEN drain - Initially NPO, TPN initiated. - NG tube placed. - IV antimicrobials Bactrim, meropenem and micafungin - Initially patient is on Levofloxacin, Flagyl (02/03); Vancomycin and Meropenem (); Meropenem (); Vancomycin () then eventually switched to above antimicrobials - Started Daptomycin (03/08), Bactrim stopped (03/08) -Gastrografin scan(03/05) showed Contrast extravasation is seen in the proximal small bowel, possibly left sided jejunum near the surgical drain can be seen with a leak. -patient kept NPO Genitourinary / Kidney # ISRRAEL likely secondary to shock/volume depletion- resolved - Nephrology consulted for ISRRAEL. Endocrine # Hypothyroidism: TSH 16.29, normal free T4. # Type 2 diabetes mellitus: HbA1c 8.2%.- # Episodes of hypoglycemia. - continuously monitoring blood glucose and on ISS Metabolic Hypokalemia. Hyperkalemia. Hyponatremia: D5W at 75 mL/hr per nephrology. Hypophosphatemia: given IV phosphate Nutrition: Severe protein malnutrition. Hematology # Acute on chronic anemia (hemodilution/post-surgical). # Severe thrombocytopenia, HIT # Acute DVT of right upper extremity. - Ultrasound (01/17): Partial thrombus in right internal jugular and cephalic veins. - hemoglobin today 6.9, transfused 1 more unit of PRBC 02/28 - Transfused total 8 units PRBC, 2 platelet units. - continuously monitor H&H - hold blood thinners Musculoskeletal / Skin # Rib fracture due to fall. Nutrition: TPN initiated. Bowel Regimen: As needed. GI Prophylaxis: Pantoprazole bid DVT Prophylaxis: Lovenox (held/ Dc'd due to low hemoglobin). Lines / Tubes / Devices Airway: Intubated on 01/14, extubated on 02/07, reintubated on 02/25 extubated 02/28 Vascular Access: PICC line placed in right upper thigh on 01/26. Drips: Dc'd pressors and sedatives. Urinary: Leach catheter placed on 01/14, exchanged on 02/14. CARMEN drains in 1 quadrant. Goals of care addressed with patient's family members for more than 29 minutes: Full code status Care plan updated to the patient family Chris (son) on bedside and addressed all concerns Critical care time spent more than 83 minutes excluding procedures and including discussion with the family Case discussed with Dr Self and RN Plan discussed with: Patient, Son Dietary Evaluation Review Comments: Nutrition Recommendation: 1) TPN to meet at least 75% estimated needs within 7 days 2) Monitor NPO status, lab values, wt trend, I/O Expected Outcomes/Goals: To meet >75% estimated needs Lab values to improve Fu 2-3 days Is there a minimum of two crit: Yes CC Plasma Assessment Blood Product Administration S: [id number] Date of Service: Mar 08, 2025 Billing Provider: ZBIGNIEW SELF MD Common Visit Codes: 69394-[id number] CARE 30-74 MIN, [id number] CARE-EACH +30MIN ASHLEY TREJO RESIDENT Mar 08, 2025 06:51 ZBIGNIEW SELF MD Mar 09, 2025 13:05
[2025-03-08] MEDS: POTASSIUM CHL 20MEQ/100ML 100 ML IV ONE (10:41)
--- NOTE | 2025-03-08 11:44 | DVHPN2 ---
Progress Note Date Seen: Mar 08, 2025 Has the PT tested + for MRSA If YES, has PT been informed?: No Medical Necessity Reason Pt with a Central, PICC or Fol: Yes The following are medically ne: Central Line, Leach Catheter Reason for elach catheter: Strict I&O Objective vital signs Vital Sign Date Time Temp Pulse Resp B/P (MAP) Pulse Ox O2 Delivery O2 Flow Rate FiO2 03/08/25 11:24 97 15 111/46 03/08/25 10:30 98 Nasal Cannula* 2 28 03/08/25 08:00 98.1 98.1 Total Intake and Output 03/07/25 03/07/25 03/08/25 15:00 23:00 07:00 Intake Total 454 ml 1034 ml 488 ml Output Total 1300 ml 870 ml Balance 454 ml -266 ml -382 ml medications Current Medications Medications Dose Ordered Sig/Isaura Route Start Time Stop Time Status Last Admin Dose Admin Cefazolin Sodium 50 ml @ 100 mls/hr Q8HR IV 01/13/25 14:00 UNV Vasopressin 20 units/Sodium Chloride 100 ml @ 9 mls/hr Q11H7M IV 01/13/25 18:45 UNV Potassium Chloride 100 ml @ 50 mls/hr Q2H IV 01/16/25 12:45 01/16/25 18:44 UNV Vancomycin HCl 100 ml @ 100 mls/hr DAILY@1200 IV 01/20/25 12:00 UNV Amino Acids 0 ml @ 0 mls/hr PER PHARMACY IV 02/13/25 10:45 Ondansetron HCl 4 mg Q4HPRN PRN IV 02/21/25 09:30 02/24/25 10:45 4 MG Micafungin Sodium 100 mg/Sodium Chloride 100 ml @ 100 mls/hr DAILY IV 02/22/25 10:00 03/08/25 10:41 100 MLS/HR Trimethoprim/ Sulfamethoxazole 0 ml @ 0 mls/hr PER PHARMACY IV 02/21/25 17:00 Multi-Ingredient Ointment 1 applic DAILY TOP 02/23/25 10:00 03/08/25 09:28 1 APPLIC Hydromorphone HCl 1 mg Q4HPRN PRN IV 02/23/25 13:30 03/08/25 11:24 1 MG Acetaminophen 650 mg Q4HP PRN PO 02/24/25 02:00 Lidocaine 1 patch DAILY@0230 TOP 02/24/25 02:30 03/07/25 03:34 1 PATCH Norepinephrine Bitartrate 250 ml @ 3.75 mls/hr Q24H IV 02/25/25 11:45 02/26/25 11:51 7.5 MLS/HR Meropenem 50 ml @ 17 mls/hr Q12HR@0800,2000 IV 02/26/25 08:00 03/08/25 08:04 17 MLS/HR Acetaminophen 650 mg Q6HP PRN [place] 02/26/25 09:00 Diagnostic Test (Pha) 1 strip Q4HR 02/26/25 16:00 Cancel Dextrose 50 ml UD PRN IV 02/26/25 14:15 Diagnostic Test (Pha) 1 strip IQ4HR 02/26/25 16:00 UNV Dextrose 50 ml UD PRN IV 02/26/25 16:00 UNV Trimethoprim/ Sulfamethoxazole 15 ml/Dextrose 265 ml @ 176.667 mls/hr Q8H IV 02/28/25 20:00 03/08/25 04:40 176.667 MLS/HR Insulin Human Regular Q6HR SC 03/02/25 12:00 03/08/25 06:53 2 UNITS Pantoprazole Sodium 50 ml @ 10 mls/hr Q5H IV 03/05/25 08:00 03/08/25 10:42 10 MLS/HR Fat Emulsion Intravenous 100 ml/Sodium Acetate 60 meq/Sodium Phosphate 20 meq/ Potassium Acetate 40 meq/Magnesium Sulfate 6 meq/ Multivitamins 10 ml/Chromium/ Copper/Manganese/ Zinc 1 ml/Insulin Human Regular 5 units/Amino Acids/ Dextrose/Purified Water 1,217.55 ml @ 51 mls/hr [id number] IV 03/07/25 22:00 03/08/25 21:59 03/07/25 22:06 51 MLS/HR Fat Emulsion Intravenous 100 ml/Sodium Acetate 60 meq/Sodium Phosphate 20 meq/ Potassium Acetate 40 meq/Potassium Phosphate 22 meq/ Magnesium Sulfate 8 meq/ Multivitamins 10 ml/Insulin Human Regular 5 units/ Amino Acids/ Dextrose/Purified Water 1,222.05 ml @ 51 mls/hr [id number] IV 03/08/25 22:00 03/09/25 21:59 laboratory and microbiology Laboratory Tests 03/08/25 03:30 Test 03/08/25 03:30 Range/Units Serum Glucose 117 H 74-106 mg/dL Problem List/Assessment/Plan Problem List/Assessment/Plan 01/14/25 afebrile, low dose BP support, received transfusion, I believe her decreased hematocrit is due to hemodilution. abdomen non distended, soft, wound clean and well approximated, drainage serous . remains intubated and sedated 01/16/25 ALKALOSIS, ABDOMEN NON DISTENDED, SOFT, DRAINAGE SEROUS, WOUND CLEAN AND WELL APPROXIMATED 01/17/25 improved, thrombocytopenia possibly made worse by Fluconazole,will DC, abdomen non distended, wound well approximated without infection, TATY drainage serous, CVP 6, good urine output. 01/18/25 abg reviewed, ,abdomen soft, non distended, TATY drainage clear serous, no bowel activity, febrile, urine output ok, continues with thrombocytopenia,pt and inr slightly elevated. prognosis grave. 01/20/25remains sedated on ventilator, abdomen soft, non distended, faint bowel sounds auscultated by nurse, wound clean and well approximated, TATY drainage clear serous. continues with thrombocytopenia, still behind on intravascular volume( BUN and Creatinine elevated), i would give more IV fluids and DC vancomycin. 01/25/25 afebrile, normotensive, wound clean and well approximated, TATY drainage serous, abdomen non distended, soft, gastrografin small bowel series shows non obstructed GI tract and no evidence of extravasation. It is OK to initiate enteric feedings. 01/29/25 16 DAYS POST OPERATIVELY TRHE TATY DRAINAGE WHICH HAD CONSISTENTLY BEEN SEROUS OR SERO SANGUINEOUS HAS BECOME "DIRTY" BROWNISH DISCOLORATION, HER WOUND IS CLEAN AND WELL APPROXIMATED AND HER ABDOMEN IS SOFT AND NON DISTENDED, CT SCAN SHOWS SO0ME FLUID AND ACCUMULATION OF FLUID AROUND THE SPLEEN, WILL REQUEST CT GUIDED ASPIRATION OF SAME, WILL ORDER IRRIGATION OF DRAINS. SHE SI AFEBRILE AND MAINTAINS NORMAL BLOOD PRESSURE, HER WBC IS NORMAL. 01/30/25 improved, awake, being weaned off vent. abdomen non distended, non tender, taty drainage clearing with irrigation 02/02/25clinically unchanged, gastrografin small bowel series reported and normal, no extravasation reported, will order a follow ujp KUB for tomorrow AM 02/03/25 PATIENT HAD A GASTROGRAFIN SMALL BOWEL SERIES AND A FOLLOW UP KUB X RAYS NEITHER ONE OF WHICH SHOW EXTRAVASATION OF CONTRAST OR EVIDENCE OF FREE CONTRAST IN THE PERITONEAL CAVITY. THERE IS HOWEVER VISCOUS, BROWNISH FLUID DRAINING VIA BOTH TATY DRAINS AND THROUGH INFRAUMBILICAL PORTION OF MIDLINE WOUND, I REMOVED THE RICHIE FROM THE 3 CM SECTION OF THE INFRAUMBILICAL WOUND AND EVACUATED ABOUT 30 CC OF THIS FLUID AND INSTRUCTED THE NURSE TO PLACE A STOMA APPLIANCE ON THIS OPENING. 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 TODAY HER WBC IS ELEVATED, ABDOMEN CONTINUES TO BE NON DISTENDED, SOFT, BUT SHE DOES HAVE SLIGHT TENDERNESS IN THE PERIUMBILICAL AREA. I WILL TREAT THIS EXPECTANTLY FORM THE TIME BEING IN THE HOPE THAT THIS IS A "CONTROLLED" FISTULA AND HOPEFUL WILL HEAL SPONTANEOUSLY WITH NPO AND NUTRITIONAL SUPPORT. WILL WATCH CLOSELY, AFTER A FEW DAYS WILL GET A FISTULOGRAM TO PIN POINT THE ENTERIC ORIGIN OF THE FISTULIZATION. CONTINUE NGT SUCTION AND DRAIN IRRIGATION ORDERED02/05/25 02/05/25 remains sedated and intubated?ventilated, abdomen non distended soft, wound vac in place. TATY drainage serosanguineous 02/08/25 EXTUBATED, GOOD INSPIRATORY EFFORT, BP NML WITHOUT PRESSOR SUPPORT, ABDOMEN SOFT, NON DISTENDED, APPROPRIATELY TENDER, LABS REVIEWED. NO CHANGES TODAY OTHER THAN ALLOW ICE CHIPS PO. WILL ORDER GASTROGRAFIN SMALL BOWEL FOLLOWTHROUGH FOR Friday02/09/25 awake cooperative, wound vac in place, abdomen soft, non distended, appropriately tender, TATY drainage brownish discoloration, will irrigate, her WBC is normal and she is afebrile and normotensive. gastrografin tomorrow 02/10/25 AWAKE,COMFORTABLE, DENIES PAIN, ABDOMEN NON DISTENDED APPROPRIATELY TENDER, WOUND CLEAN AND WELL APPROXIMATED, DRAINS BEING IRRIGATED, LABS OK, GOOD URINE OUTPUT. "SURGICALLY" STABLE 02/11/25 feels well, passing flatus. is hungry, abdomen soft non distended, drainage clearing with irrigation, will wait for Gastrografin small bowel series to be completed, if normal will start po clear liquids 02/12/25 no nausea, change in TATY drainage colort, appears to contaIN, BILE, WILL DC po CLEAR LIQUIDS, CONTINUE ICE CGHIPS, SEND DRAin fluid for amylase and bilirubin, 02/13/25 states she feels well, abdomen non tender, non distended, wound clean and well approximated. drainage slightly clearer, keep npo for now, needs to resume TPN 02/14/25 PATIENT C/O BEING COLD BUT HAS NO PAIN, DRAINAGE SEEMS TO BE CLEARING, SHE HAD A BOWEL MOVEMENTS, ABDOMEN IS SOFT AND NON TENDER, NON DISTENDED, WOUND IS CLEAN AND WELL APPROXIMATED, WILL CONTINUE NPO STATUS AMYLASE ON TATY DRAINAGE FLUID IS GOING TO TAKE SEVERAL DAYS TO BECOME AVAILABLE. CONTINUE TPN 02/16/25 DENIES PAIN,STATES SHE FEELS BETTER, WOUND VAC IN PLACE, ABDOMEN NON TENDER,NON DISTENDED, TATY DRAINAGE SMALL TO MODERATE , WILL CONTINUE IRRIGATING DRAINS, WILL REQUEST GI CONSULT TO CONSIDER ENDOSCOPY. WBC NL,H/H STABLE , ALBUMIN STILL VERY LOW. , 02/17/25 CT SCAN REVIEWED, I SUSPECT THERE IS A SMALL LEAK FROM THE APPEARANCE OF IMAGING ALTHOUGH RADIOLOGIST RECOMMENDED REPEAT CT SCAN (ORDERED). THE DRAINAGE IS SMALL AMOUNT BUT NOW IT IS WITH AN ODOR, I WILL RE INSERT NGT TO ATTEMPT DECREASING THE GASTRIC CONTENTS. ABDOMEN IS SOFT, APPROPRIATELY TENDER, WOUND VAC IN PLACE 02/18/25 AFEBRILE, NORMOTENSIVE4, WBC NL, ALL IMAGING NEGATIVE, ANGIOGRAM SHOWS NO EVIDENCE OF HYPOPERFUSION, CONTRAST AND NON CONTRAST CT SCAN FAILED TO SHOW ANY EVIDENCE OF EXTRAVASATION, THE DRAINAGE CONTINUES TO BE BROWNISH DISCOLORED AND FOULS SMELLING, EXPLAINED TO PT'S SON THAT I HAVE NO EVIDENCE OF ANY GI LEAKAGE, WILL GET A GASTROGRAFIN ENEMA ON FRIDAY, I AM TRYING TO REFRAIN FROM OPERATING ON THE FRAIL ELDERLY PATIENT FOR THE THIRD TIME, SHE WILL NOT TOLERATE ANOTHYER OPERATION WELL. HER ALBUMIN REMAINS VERY LOW.WOUND VAC OK 02/19/25 feels ok,c/o being cold, abdomen soft. non distended, minimally tender, drainage seems to be little less, labs ok, continue as is 02/22/25 she feels well, abdomen is non tender, soft and non distended, drainage slightly less in volume, still discolored,gastrografin enema reviewed by me ( no radiologist/s interpretation available), she has not evacuated the gastrografin according to nurse. 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 will proceed with operation on 02/25/25 at 0715 AM. 02/27/25 SLIGHT IMPROVEMENT, ABDOMEN SOFT, NON DISTENDED, STOMA VIABLE WITHOUT FUNCTION, OK TO TRY GETTING OFF VENTILATOR. 03/01/25 extubated, conversant,oriented, abdomen non distended, appropriately tender, wound clean ans well approximated, drainage serous, stoma viable and with minimal liquid,no gas. will sips of water and ice po 03/02/25 awake comfortable, denies pain, abdomen appropriately tender, wound vac in place, afebrile, normotensive, drainage serosanguineous, cbc stable, stoma viable and with minimal output will resume irrigation of drain 03/03/25 awake ,cooperative, good inspiratory effort, afebrile, normotensive, wound covered with wound vac, drainage serous but cloudy(cultures ordered) abdomen non tender, stoma viable with minimal output. will order gastrografin ugi with small bowel follow throught for tomorow 03/04/25 vital signs stable, good urine output, wound vac ok, abdomen non tender. Xray pending 03/05/25 UGI X RAY SHOWS A NEW AREA OF LEAK,BEING ADEQUATELY DRAINED BY THE TATY DRAIN WHICH IS ADJACENT TO IT, HER ABDOMEN IS NON TENDER. WILL RESUME STRICT NPO STATUS, KEEP NGT TO CONTINUOUS SUCTION, I HAVE CALLED HER SON ILIANA AND EXPLAINED THAT PROBABLY THE INTESTINAL WALL IS NOT HEALING WHENEVER WE PLACE SUTURE AT SITES OF ANASTOMOSES. HER ABDOMEN IS NON TENDER, I WILL TREAT THIS CONSERVATIVELY FOR SOME TIME TO SEE IF THE LEAK MAY SHOW SOME EVIDENCE OF HEALING. YESTERDAY THERE WAS 500 CC OF TATY DRAINAGE. HER ALBUMIN LEVEL IS SLOWLY IMPROVING BUT STILL REMAINS LOW. IT APPEARS THAT THE SUTURES IN HER INTESTINAL ANASTOMOSES HOLD FOR ABOUT A WEEK AND THEN BREAK DOWN. (DRAINAGE TURNED FROM SEROSANGUINEOUS TO GREENISH YESTERDAY. 03/06/25 drainage slightly less in volume, still enteric contents abdomen softn and non tender, non distended. wound vac changed, wound healing, no chjanges for now. discussed with family. 03/08/29 feels better, no pain, abdomen soft and non tender, drainage minimally less, family at bedside, answered questions Plan discussed with: Patient, Spouse, Son Dietary Evaluation Review Comments: Nutrition Recommendation: 1) TPN to meet at least 75% estimated needs within 7 days 2) Monitor NPO status, lab values, wt trend, I/O Expected Outcomes/Goals: To meet >75% estimated needs Lab values to improve Fu 2-3 days Is there a minimum of two crit: Yes MELVA RAMESH MD Mar 08, 2025 11:44
--- NOTE | 2025-03-08 12:07 | MEDREC ---
[facility] ASP Intervention Section I [facility] ASP Intervention: Review courses of therapy (Please consider using antibiotics that are susceptible to the aspirate culture) MACKENZIE THAKKAR [facility] RESIDENT Mar 08, 2025 12:07
[2025-03-08] MEDS: DAPTOmycin 400 MG in SODIUM CHL 0.9% 50 ML IV SCH (16:52)
[2025-03-08] MEDS: PANTOPRAZOLE 40 MG/10 ML VIAL INJ IV SCH (22:48)
[2025-03-08] MEDS: TPN PER PHARMACY IV NR (22:48)
[2025-03-09] VITALS (26 sets, daily range): BP systolic 99–142; BP diastolic 43–71; PULSE 92–130; RESP 13–21; TEMP 97.7–98.3; O2SAT 97–100
[2025-03-09 04:48] LABS: Hematocrit 25.6 % (36.0-46.0); Hemoglobin 8.8 g/dL (12.2-16.2); Mean Corpuscular Hemoglobin 32.6 pg (28.0-32.0); Mean Corpuscular Volume 94.3 fL (80.0-100.0); Nucleated Red Blood Cells % 0.0 %
--- NOTE | 2025-03-09 04:59 | DVH ---
CHEST RADIOGRAPH Indication: rule out pnuemonia Technique: 1 view Comparison: XY CHEST XRAY 1 VIEW on DOS: 03/04/25, XY CHEST XRAY 1 VIEW on DOS: 03/02/25, XY CHEST PO RTABLE on DOS: 02/28/25, XY CHEST XRAY 1 VIEW on DOS: 02/27/25, XY CHEST XRAY 1 VIEW on DOS: 02/26/25 FINDINGS: Lines and Tubes: Unchanged enteric tube and right upper extremity PICC. Lungs/Pleura: Unchanged. Cardiomediastinum: Unchanged. Other: Unchanged osseous structures. IMPRESSION: No significant change from the previous study. Persistent interstitial opacities, left basilar consol idation, and suspected trace pleural effusions. Stable support devices.
[2025-03-09 05:09] LABS: Anion Gap 9 (5-15); BUN/Creatinine Ratio 34.3 (10.0-20.0); Carbon Dioxide 23 mmol/L (20-31); Chloride 107 mmol/L (98-107); Magnesium 1.9 mg/dL (1.6-2.6); Potassium 3.8 mmol/L (3.5-5.1); Sodium 139 mmol/L (136-145)
[2025-03-09 05:13] LABS: Alanine Aminotransferase 78 U/L (7-40); Albumin 2.4 g/dL (3.2-4.8); Alkaline Phosphatase 277 U/L (46-116); Bilirubin, Total 2.3 mg/dL (0.2-1.0); Blood Urea Nitrogen 36 mg/dL (9-23); Calcium 8.3 mg/dL (8.7-10.4); Glucose 119 mg/dL (74-106); Total Protein 5.3 g/dL (5.7-8.2); Triglycerides 154 mg/dL (< 150)
[2025-03-09 07:31] LABS: Free T4 (Free Thyroxine) 0.58 ng/dL (0.89-1.76)
[2025-03-09] MEDS: LEVOTHYROXINE SODIUM 100 MCG/5 ML INJ IV SCH (10:12)
--- NOTE | 2025-03-09 11:42 | DVHINCON2 ---
Date of service: Mar 09, 2025 Allergies: Coded Allergies: NO KNOWN ALLERGIES (Unverified , 01/12/25) Home Meds Reported Medications Metoprolol Tartrate (Lopressor) 25 Mg Tb, 1 TAB PO BID 01/13/25 Levothyroxine Sodium (Levothyroxine Sodium) 50 Mcg Tab, 1 TAB PO QAM 01/13/25 Nortriptyline HCl (Nortriptyline Hydrochlori) 10 Mg Cap, 2 CAP PO 01/13/25 Current Medications Current Medications Medications (Trade) Dose Ordered Sig/Isaura Route PRN Reason Start Time Stop Time Status Last Admin Fat Emulsion Intravenous 100 ml/Sodium Acetate 60 meq/Sodium Phosphate 20 meq/ Potassium Acetate 40 meq/Potassium Phosphate 22 meq/ Magnesium Sulfate 8 meq/ Multivitamins 10 ml/Insulin Human Regular 5 units/ Amino Acids/ Dextrose/Purified Water 1,222.05 ml @ 51 mls/hr [id number] IV 03/08/25 22:00 03/09/25 21:59 03/08/25 22:48 Pantoprazole Sodium (Protonix) 40 mg BID IV 03/08/25 22:00 03/09/25 08:26 Daptomycin 400 mg/ Sodium Chloride 50 ml @ 100 mls/hr DAILY@1100 IV 03/08/25 15:30 03/08/25 16:52 Fat Emulsion Intravenous 100 ml/Sodium Acetate 60 meq/Sodium Phosphate 20 meq/ Potassium Acetate 60 meq/Potassium Phosphate 22 meq/ Magnesium Sulfate 10 meq/ Multivitamins 10 ml/Insulin Human Regular 5 units/ Amino Acids/ Dextrose/Purified Water 1,282.55 ml @ 53 mls/hr [id number] IV 03/09/25 22:00 03/10/25 21:59 Levothyroxine Sodium (Synthroid Injection) 50 mcg DAILY IV 03/09/25 10:00 03/09/25 10:12 Vital Signs Vital Signs Date Time Temp Pulse Resp B/P (MAP) Pulse Ox O2 Delivery O2 Flow Rate FiO2 03/09/25 10:58 100 19 118/54 03/09/25 10:00 99 Nasal Cannula* 2 03/09/25 08:01 98.0 98.0 Labs/Diagnostic Data Labs Test 03/09/25 05:43 03/09/25 04:27 03/08/25 12:06 03/07/25 07:28 Range/Units POC Glucose 115 H 70-106 mg/dl White Blood Count 8.8 # 4.4-10.8 10^3/uL Red Blood Count 2.71 L 4.0-5.20 10^6/uL Hemoglobin 8.8 L 12.2-16.2 g/dL Hematocrit 25.6 L 36.0-46.0 % Mean Corpuscular Volume 94.3 80.0-100.0 fL Mean Corpuscular Hemoglobin 32.6 H 28.0-32.0 pg Mean Corpuscular Hemoglobin Concent 34.6 32.0-36.0 g/dL Red Cell Distribution Width 17.1 H 11.8-14.3 % Platelet Count 86 L 140-450 10^3/uL Mean Platelet Volume 10.8 6.9-10.8 fL Neutrophils (%) (Auto) 79.0 37.0-80.0 % Lymphocytes (%) (Auto) 14.3 10.0-50.0 % Monocytes (%) (Auto) 5.8 0.0-12.0 % Eosinophils (%) (Auto) 0.5 0.0-7.0 % Basophils (%) (Auto) 0.4 0.0-2.0 % Neutrophils # (Auto) 7.0 1.6-8.6 10 ^3/uL Lymphocytes # (Auto) 1.3 0.4-5.4 10 ^3/uL Monocytes # (Auto) 0.5 0-1.3 10 ^3/uL Eosinophils # (Auto) 0 0-0.8 10 ^3/uL Basophils # (Auto) 0 0-0.2 10 ^3/uL Nucleated Red Blood Cells 0.0 % Sodium Level 139 136-145 mmol/L Potassium Level 3.8 3.5-5.1 mmol/L Chloride Level 107 98-107 mmol/L Carbon Dioxide Level 23 20-31 mmol/L Anion Gap 9 5-15 Blood Urea Nitrogen 36 H 9-23 mg/dL Creatinine 1.05 H 0.550-1.02 mg/dL Glomerular Filtration Rate Calc 54 >90 mL/min BUN/Creatinine Ratio 34.3 H 10.0-20.0 Serum Glucose 119 H 74-106 mg/dL Calcium Level 8.3 L 8.7-10.4 mg/dL Phosphorus Level 3.5 2.4-5.1 mg/dL Magnesium Level 1.9 1.6-2.6 mg/dL Total Bilirubin 2.3 H 0.2-1.0 mg/dL Aspartate Amino Transferase (AST) 87 H 13-40 U/L Alanine Aminotransferase (ALT) 78 H 7-40 U/L Alkaline Phosphatase 277 H 46-116 U/L Total Protein 5.3 L 5.7-8.2 g/dL Albumin 2.4 L 3.2-4.8 g/dL Triglycerides Level 154 H < 150 mg/dL Thyroid Stimulating Hormone (TSH) 42.72 H 0.55-4.78 uIU/mL Free Thyroxine (T4) Calculated 0.58 L 0.89-1.76 ng/dL Total Triiodothyronine (TT3) 0.48 L 0.60-1.81 ng/mL Miscellaneous Referred Test (Rm Tmp Sent to [facility] Prothrombin Time 11.9 H 9.3-11.8 sec Prothrombin Time INR 1.14 0.9-1.15 Activated Partial Thromboplast Time 29.2 24.5-34.5 SEC Test 03/02/25 03:10 02/28/25 10:34 02/28/25 07:35 02/28/25 06:02 Range/Units Direct Bilirubin 2.0 H <0.3 mg/dL Lactate Dehydrogenase 280 H 120-246 U/L Blood Gas Specimen Type Arterial Blood Gas Sample Site Left brachial Blood Gas Patient Temperature 37.0 Arterial Blood Date Drawn [id number] Arterial Blood pH 7.506 H 7.350-7.450 Arterial Blood Partial Pressure CO2 30.3 L 32.0-45.0 mmHg Arterial Blood Partial Pressure O2 94.1 83.0-108.0 mmHg Arterial Blood HCO3 23.4 21.0-28.0 mmol/L Arterial Blood Oxygen Saturation 96.7 94.0-98.0 % Arterial Blood Base Excess 0.9 -2.0-3.0 mmol/L Arterial Blood Oxyhemoglobin 95.8 94.0-98.0 % Arterial Blood Carboxyhemoglobin 0.3 L 0.5-1.5 % Arterial Blood Methemoglobin 0.6 0.0-1.5 % Syed Test N/a Blood Gas Total Hemoglobin 10.60 L 12.0-16.0 g/dL Blood Gas Modality Vent - cpap FiO2 % 30.0 Blood Gas Pressure Support 7 Blood Gas PEEP or CPAP 5.0 Blood Gas Set Respiration Rate 18.0 Blood Gas Tidal Volume 450.0 Gastric Fluid pH 1 Gastric Fluid Occult Blood Negative Negative Test 02/27/25 06:46 02/25/25 19:39 02/25/25 18:40 02/25/25 13:15 Range/Units Lactic Acid Level 3.4 *H 0.4-2.0 mmol/L Differential Total Cells Counted 100.0 100 Neutrophils % (Manual) 90 H 37.0-80.0 Band Neutrophils % (Manual) 0 Lymphocytes % (Manual) 5 L 10.0-50.0 Monocytes % (Manual) 5 0-12 Eosinophils % (Manual) 0 0-7 Basophils % (Manual) 0 0.0-2.0 Metamyelocytes % (manual) 0 Myelocytes % (Manual) 0 Promyelocytes % (Manual) 0 Blast Cells % (Manual) 0 Reactive Lymphocytes 0 Platelet Estimate Adequate Blood Gas Critical Value Read Back Yes Blood Gas Notified Whom niru Zimmerman md Blood Gas Notified Time [id number] Blood Gas Notified By pamela Zabala rrt Blood Gas Spontaneous Rate 16 Test 02/24/25 02:46 02/22/25 19:05 02/20/25 03:45 02/15/25 03:20 Range/Units Large Platelets Few Anisocytosis (manual) Slight Stomatocytes Few Vancomycin Level Trough 14.7 H 5-10 ug/mL Vitamin B12 Level 2328 H 211-911 pg/mL Vitamin D 25-Hydroxy 36.4 30.0-100 ng/mL Random Vancomycin Level 15.1 H 5-10 ug/mL Test 02/07/25 08:22 02/01/25 03:30 01/21/25 03:06 01/17/25 11:20 Range/Units Blood Gas Comments Cpap ps 8/+5 Iron Level 30 L 50-170 ug/dL Total Iron Binding Capacity 163 L 250-425 ug/dL Percent Iron Saturation 18.4 15-50 % Ferritin 250.4 10-291 ng/mL Prealbumin < 3.0 L 10.0-40.0 md/dL B-Type Natriuretic Peptide 108.02 0-100 pg/mL Haptoglobin 160 42-346 mg/dL Fibrinogen 256 177-375 mg/dL D-Dimer, Quantitative 27.68 H 0.0-0.49 mg/L FEU Test 01/14/25 02:00 01/13/25 19:04 01/13/25 07:59 01/12/25 21:30 Range/Units Urine Color Yellow Yellow Urine Clarity Turbid H Clear Urine pH 6.0 5.0-9.0 Urine Specific [place] 1.016 1.001-1.035 Urine Protein 1+ H Negative Urine Ketones Trace Negative Urine Blood 1+ H Negative /uL Urine Nitrite Negative Negative Urine Bilirubin Negative Negative Urine Urobilinogen Normal Negative mg/dL Urine Leukocyte Esterase Negative Negative /uL Urine RBC 10 0 - 4 /hpf Urine Microscopic WBC 2 0-5 /HPF Urine Squamous Epithelial Cells Few <5 /hpf Urine Amorphous Crystals Few None Seen /hpf Urine Bacteria None seen None Seen /hpf Urine Creatinine 34.09 30.0-125.0 mg/dL Urine Protein/Creatinine Ratio 3.85 Urine Sodium 76 40-220 mmol/L Urine Glucose Normal Normal mg/dL Urine Total Protein 131.1 H 1-14 mg/dL Rheumatoid Factor 18.9 H <14.0 IU/mL Anti-Nuclear Antibody Screen Negative Negative Cytoplasmic ANCA (c-ANCA) Antibody <1:20 Neg:<1:20 titer Atypical p-ANCA <1:20 Neg:<1:20 titer Perinuclear ANCA (p-ANCA) Antibody <1:20 Neg:<1:20 titer Complement C3 112 82-167 mg/dL Complement C4 20 12-38 mg/dL [place] Cells Few Hemoglobin A1c 8.2 H <5.7 % A1C Cholesterol Level 81 < 200 mg/dL LDL Cholesterol 22 < 100 mg/dL HDL Cholesterol 14 L 40-59 mg/dL Lipase 21 12-53 U/L Microbiology Date/Time Source Procedure Growth Status 03/07/25 08:32 Blood Blood Culture - Preliminary Resulted 03/02/25 16:00 Urine - [place] Urine Culture - Preliminary Resulted 03/02/25 16:00 Aspirate Gram Stain - Final Resulted 03/02/25 16:00 Body Fluid Culture - Preliminary Enterococcus faecium - VRE Escherichia coli Resulted 02/25/25 11:48 Sputum Gram Stain - Final Complete 02/25/25 11:48 Sputum Respiratory Culture - Final Complete 01/13/25 17:10 Nose MRSA Screen - Final Complete Problems(with codes): (1) Septic shock (2) Intestinal perforation (3) Acute renal injury (4) Ischemic bowel disease Plan/Recommendation ASSESSMENT AND PLAN: ID Problem List: -Perforated small bowel with persistent leak; intra-abdominal sepsis; status post multiple exploratory laparotomies with adhesiolysis and enteroenterostomies; CARMEN drains in place -Septic shock; acute hypoxic respiratory failure -Acute kidney injury (ISRRAEL) with acute tubular necrosis (ATN) improved -Transaminitis likely ischemic hepatitis improving -Thrombocytopenia (worsened ~01/19 while on vancomycin/fluconazole) -Diabetes mellitus -On apixaban (Eliquis) for last 2 weeks indication unclear -Past surgical history: section; hernia repair Assessment This is a 10 y.o. female with diabetes and prior and hernia repair, who presented with 4 days of sharp lower abdominal pain. Initial ED evaluation notab le for CT A/P demonstrating free intraperitoneal air and small bowel inflammatory changes concerning for perforated viscus with mild ascites and mesenteric stranding. She underwent an exploratory laparotomy on 01/13 with lysis of adhesions, small bowel enteroenterostomy, and placement of two Mendel- Steele drains; peritoneal cultures at that time grew Escherichia coli and Klebsiella pneumoniae (both ceftriaxone susceptible). Postoperatively she required norepinephrine (Levophed) and broad-spectrum antibiotics. Course complicated by recurrent sepsis and suspected enterocutaneous/peritoneal contamination, requiring re-exploration on 02/03 with evacuation of copious intra-abdominal infection/abscesses and revision of anastomosis; intraoperative cultures reportedly not obtained. A drain sample dated 01/28 grew Stenotrophomonas (TMP-SMX susceptible). Ongoing respiratory issues prompted em piric vancomycin, later discontinued when sputum grew only Zoe albicans. A third operation on 02/25 for persistent feculent leakage and peritonitis showed a distal ileal perforation proximal to adhesional obstruction; this was resected with primary anastomosis, and further adhesiolysis performed. Upper GI series on 03/04 demonstrates contrast extravasation from proximal small bowel (likely left jejunum) near a surgical drain, consistent with a persistent leak that appears to be adequately drained clinically. She has been afebrile since 03/03, is extubated to 2 L NC, hemodynamically supported on low-dose norepinephrine, and clinically stable abdominally (nontender). LFTs that had peaked during ischemic episodes are improving. Renal function has improved from admission. Cultures/culture interpretation: Earlier peritoneal cultures with E. coli and Klebsiella; drain fluid with Stenotrophomonas (01/28) and subsequent peritoneal/aspirate samples showing E. coli and vancomycin-resistant Enterococcus (VRE) on 03/02; one of four blood culture bottles (03/07) positive for Staphylococcus epidermidis, felt to be contaminant. Given the persistent bowel leak with external drainage and the timing/source of cultures, current drain cultures are likely colonization and may not represent true invasive pathogens. Antimicrobial course (per transcript): initial piperacillin-tazobactam (Zosyn) + vancomycin through 01/19; vancomycin stopped for suspected contribution to thrombocytopenia; courses including meropenem and micafungin through 01/31; then levofloxacin + metronidazole + micafungin through 02/03; meropenem continued thereafter with vancomycin re-trial for presumed pneumonia (later stopped by 02/21 after Zoe-only sputum); micafungin added/continued; trimethoprim-sulfa methoxazole (Bactrim) started 02/21 for Stenotrophomonas coverage; transcript also notes meropenem and rifampin continued until today. Plan: -Intra-abdominal sepsis with persistent small bowel leak: -Source control: continue to ensure CARMEN drains are functioning; avoid routine re- culturing from drains as results likely represent colonization and may mislead management. -Imaging monitoring: repeat upper GI series every few weeks to confirm containment and assess for healing of the leak. -Antibiotics: -De-escalate broad coverage toward enteric pathogens (E. coli/Klebsiella) and away from agents targeting colonizers. -No ongoing coverage for Stenotrophomonas is required at this time. -No coverage for VRE is recommended; discontinue daptomycin if in use. -start piperacillin-tazobactam (Zosyn). -Antifungal: continue micafungin. Reassess need periodically. -Duration: continue until leak is resolved or clearly contained with clinical improvement. -Transition to oral therapy when patient can tolerate and when clinically appropriate. -Hemodynamics: continue norepinephrine (Levophed) as needed; ongoing wean as tolerated. -Respiratory: extubated to 2 L NC; supportive care; chest radiograph with persistent interstitial opacities, left basilar consolidation, small pleural effusions monitor clinically. -Renal: ISRRAEL/ATN improved (Cr now ~0.99); continue renal dosing of antimicrobials as indicated; monitor BMP. -Hepatic: transaminases improving from prior ischemic hepatitis; trend LFTs. -Hematology: platelet count currently ~118 K; monitor CBC. -Anticoagulation: on apixaban (Eliquis) for unclear indication per history; reconcile indication and risk/benefit with primary/surgical teams in context of recent surgeries/leak. -Nutrition/NG: continue NG suction per surgery; nutrition per surgical/ICU teams. -Lines/Drains: maintain CARMEN drains; monitor output and character; avoid routine drain cultures. -Follow-up: ID will continue to follow clinically; adjust therapy as new data emerge. PROGNOSIS REMAINS POOR Authorized and Performed by: sheron sauceda Total critical care time: Approximately 76 minutes Due to a high probability of clinically significant, life threatening deterioration, the patient required my highest level of preparedness to intervene emergently and I personally spent this critical care time directly and personally managing the patient. This critical care time included obtaining a history; examining the patient; pulse oximetry; ordering and review of studies; arranging urgent treatment with development of a management plan; evaluation of patient's response to treatment; frequent reassessment; and, discussions with other providers. This critical care time was performed to assess and manage the high probability of imminent, life-threatening deterioration that could result in multi-organ failure. It was exclusive of separately billable procedures and treating other patients and teaching time. Isolation Precautions: standard \*Assessment and plan were discussed with the patient as written above (when able/appropriate). \*Plan is subject to change pending incorporation of new incoming information/diagnostics. Updates may be added as addendum at the bottom (OR TOP) of this note. Thank you for the consult. ID will continue to follow. Please contact Infectious Disease for any questions or concerns. Electronically signed by: Sheron Sauceda MD, 03/11/2025 \ History: The patient's chart and medications were reviewed in detail and the patient was seen and examined. History obtained from: Not specified in transcript. Saúl Reynoso is a 10 y.o. female with diabetes and prior and hernia repair who presented with 4 days of sharp lower abdominal pain. She has had recurrent hospitalizations for abdominal pain. She has been on apixaban (Eliquis) for the last two weeks; indication unclear. Denies recent travel, ingestion of smoothies, sick contacts, and shortness of breath. Denies diarrhea, nausea, and vomiting. Initial CT abdomen/pelvis showed free intraperitoneal air and findings consistent with perforated small bowel with mild ascites and stranding. Surgical and infectious details, culture results, antimicrobial exposures, and interval clinical course are summarized in the Assessment above. Review of Systems: -Constitutional: Fever status not clearly stated in ED; later Tmax 100.2100.6 on 03/03, afebrile since. -HEENT: Not discussed. -Respiratory: Denies shortness of breath on presentation. -Cardiovascular: Not discussed. -Gastrointestinal: Reports sharp lower abdominal pain; denies nausea, vomiting, diarrhea. -Genitourinary: Not discussed. -Musculoskeletal: Not discussed. -Skin: Not discussed. -Neurological: Not discussed. -Psychiatric: Not discussed. Past Medical History: -Diabetes mellitus Past Surgical History: - section -Hernia repair Home Medications: -Apixaban (Eliquis) taken for the last two weeks; indication unclear -Other home medications: Not provided in transcript Allergies: -No known drug allergies Family History: -Mother: arthritis -Other family history: Not provided in transcript Social History: -Tobacco: No smoking -Alcohol: No alcohol use -Drugs: No drug use -Other social history details: Not provided in transcript Objective: Vital Signs on Arrival: -Temp: 98 F -BP: 116/50 -Pulse: 9498 -Resp: 10 -SpO2: 94% on 2 L/min nasal cannula Most Recent Vital Signs: -Temp: Afebrile since 03/03 (prior Tmax 100.2100.6 on 03/03) -BP: 123/70 -Pulse: Tachycardia to 112 -Resp: 16 -SpO2: Not provided in transcript -Oxygen: Extubated; on 2 L/min nasal cannula -Vasopressors: Norepinephrine (Levophed) ~4 mcg (per transcript) Admission Weight: -Not provided in transcript Physical Exam: General: NAD Neck: Supple. No masses. HEENT: PERRL. Normal lids and conjunctiva. Moist mucous membranes. Oropharynx without lesions, exudates or excessive erythema. Normal appearance of the external aspects of the nose and ears. Heart: Regular rhythm, normal rate. No murmur. No lower extremity edema. Lungs: Normal respiratory effort. Clear to auscultation bilaterally. No wheezes. No crackles. Abdomen: Soft. Non-tender. Non-distended. No masses or abdominal hernia. Msk: No digital cyanosis. Normal strength and tone in all 4 limbs Skin: Warm and dry, no rashes. Neuro: Alert. No facial droop or slurred speech. Extra-ocular movements intact. Sensation intact to soft touch in all 4 limbs. Psych: Appropriate mood. Full affect. Oriented to person, place, time, and situation. Lines: -Mendel-Steele drains x2 to peritoneal cavity -Nasogastric tube to suction -Other lines: Not provided in transcript Diagnostic Studies: -ED labs (on presentation): -WBC 7.1 K/L; Hgb 10.9 g/dL; Platelets 167 K/L -Sodium 137 mmol/L; BUN 36 mg/dL; Creatinine 2.11 mg/dL -AST 17 U/L; ALT 19 U/L; Alkaline phosphatase 134 U/L; Lipase 21 U/L -Recent labs: -WBC improved to ~7; Hgb 9.9; Platelets 118 K/L -Sodium 142; BUN 38; Creatinine 0.99 -AST peaked in 3000s during ischemia, now 79 U/L -ALT peaked 1,651 on 02/25, now 69 U/L -Alkaline phosphatase peaked 409, now 304 U/L -Microbiology: -Peritoneal cultures (early): E. coli and Klebsiella pneumoniae (ceftriaxone susceptible) -Drain sample 01/28: Stenotrophomonas (TMP-SMX susceptible) -Peritoneal fluid 02/17 and aspirate 03/02: E. coli; VRE reported on 03/02 -Blood cultures 03/07: Staphylococcus epidermidis in 1/4 bottles (consistent with contaminant) -Respiratory: Sputum grew Zoe albicans Pertinent Imaging: -CT Abdomen/Pelvis (ED): Free intraperitoneal air likely from viscus perforation in left abdomen; small bowel circumferential wall thickening with adjacent gas; mild ascites; mesenteric soft tissue stranding; possible sinus tracts/fistulous network between small bowel loops; reported nonhealing anterior right 5th rib fracture; cardiomegaly. -Upper GI series (03/04): Contrast extravasation from proximal small bowel (likely left-sided jejunum) near a surgical drain consistent with a leak; appears adequately drained clinically per surgical review. -Chest X-ray: No significant change from prior; persistent interstitial opacities, left basilar consolidation, suspected small pleural effusions. Plan discussed with: Patient SHERON SAUCEDA MD Mar 09, 2025 11:42
--- NOTE | 2025-03-09 12:31 | DVHPN2 ---
Progress Note Date Seen: Mar 09, 2025 Has the PT tested + for MRSA If YES, has PT been informed?: No Medical Necessity Reason Pt with a Central, PICC or Fol: Yes The following are medically ne: Central Line, Leach Catheter Reason for leach catheter: Strict I&O Objective vital signs Vital Sign Date Time Temp Pulse Resp B/P (MAP) Pulse Ox O2 Delivery O2 Flow Rate FiO2 03/09/25 10:58 100 19 118/54 03/09/25 10:00 99 Nasal Cannula* 2 03/09/25 08:01 98.0 98.0 Total Intake and Output 03/08/25 03/08/25 03/09/25 15:00 23:00 07:00 Intake Total 883 ml 508 ml 408 ml Output Total 1175 ml 1520 ml Balance 883 ml -667 ml -1112 ml medications Current Medications Medications Dose Ordered Sig/Isaura Route Start Time Stop Time Status Last Admin Dose Admin Cefazolin Sodium 50 ml @ 100 mls/hr Q8HR IV 01/13/25 14:00 UNV Vasopressin 20 units/Sodium Chloride 100 ml @ 9 mls/hr Q11H7M IV 01/13/25 18:45 UNV Potassium Chloride 100 ml @ 50 mls/hr Q2H IV 01/16/25 12:45 01/16/25 18:44 UNV Vancomycin HCl 100 ml @ 100 mls/hr DAILY@1200 IV 01/20/25 12:00 UNV Amino Acids 0 ml @ 0 mls/hr PER PHARMACY IV 02/13/25 10:45 Ondansetron HCl 4 mg Q4HPRN PRN IV 02/21/25 09:30 02/24/25 10:45 4 MG Micafungin Sodium 100 mg/Sodium Chloride 100 ml @ 100 mls/hr DAILY IV 02/22/25 10:00 03/09/25 10:12 100 MLS/HR Multi-Ingredient Ointment 1 applic DAILY TOP 02/23/25 10:00 03/09/25 08:36 1 APPLIC Hydromorphone HCl 1 mg Q4HPRN PRN IV 02/23/25 13:30 03/09/25 10:28 1 MG Acetaminophen 650 mg Q4HP PRN PO 02/24/25 02:00 Lidocaine 1 patch DAILY@0230 TOP 02/24/25 02:30 03/07/25 03:34 1 PATCH Norepinephrine Bitartrate 250 ml @ 3.75 mls/hr Q24H IV 02/25/25 11:45 02/26/25 11:51 7.5 MLS/HR Meropenem 50 ml @ 17 mls/hr Q12HR@0800,2000 IV 02/26/25 08:00 03/09/25 08:26 17 MLS/HR Acetaminophen 650 mg Q6HP PRN [place] 02/26/25 09:00 Diagnostic Test (Pha) 1 strip Q4HR 02/26/25 16:00 Cancel Dextrose 50 ml UD PRN IV 02/26/25 14:15 Diagnostic Test (Pha) 1 strip IQ4HR 02/26/25 16:00 UNV Dextrose 50 ml UD PRN IV 02/26/25 16:00 UNV Insulin Human Regular Q6HR SC 03/02/25 12:00 03/08/25 06:53 2 UNITS Fat Emulsion Intravenous 100 ml/Sodium Acetate 60 meq/Sodium Phosphate 20 meq/ Potassium Acetate 40 meq/Potassium Phosphate 22 meq/ Magnesium Sulfate 8 meq/ Multivitamins 10 ml/Insulin Human Regular 5 units/ Amino Acids/ Dextrose/Purified Water 1,222.05 ml @ 51 mls/hr [id number] IV 03/08/25 22:00 03/09/25 21:59 03/08/25 22:48 51 MLS/HR Pantoprazole Sodium 40 mg BID IV 03/08/25 22:00 03/09/25 08:26 40 MG Daptomycin 400 mg/ Sodium Chloride 50 ml @ 100 mls/hr DAILY@1100 IV 03/08/25 15:30 03/09/25 12:04 100 MLS/HR Fat Emulsion Intravenous 100 ml/Sodium Acetate 60 meq/Sodium Phosphate 20 meq/ Potassium Acetate 60 meq/Potassium Phosphate 22 meq/ Magnesium Sulfate 10 meq/ Multivitamins 10 ml/Insulin Human Regular 5 units/ Amino Acids/ Dextrose/Purified Water 1,282.55 ml @ 53 mls/hr [id number] IV 03/09/25 22:00 03/10/25 21:59 Levothyroxine Sodium 50 mcg DAILY IV 03/09/25 10:00 03/09/25 10:12 50 MCG laboratory and microbiology Laboratory Tests 03/09/25 04:27 Test 03/09/25 04:27 Range/Units Serum Glucose 119 H 74-106 mg/dL Problem List/Assessment/Plan Problem List/Assessment/Plan 01/14/25 afebrile, low dose BP support, received transfusion, I believe her decreased hematocrit is due to hemodilution. abdomen non distended, soft, wound clean and well approximated, drainage serous . remains intubated and sedated 01/16/25 ALKALOSIS, ABDOMEN NON DISTENDED, SOFT, DRAINAGE SEROUS, WOUND CLEAN AND WELL APPROXIMATED 01/17/25 improved, thrombocytopenia possibly made worse by Fluconazole,will DC, abdomen non distended, wound well approximated without infection, TATY drainage serous, CVP 6, good urine output. 01/18/25 abg reviewed, ,abdomen soft, non distended, TATY drainage clear serous, no bowel activity, febrile, urine output ok, continues with thrombocytopenia,pt and inr slightly elevated. prognosis grave. 01/20/25remains sedated on ventilator, abdomen soft, non distended, faint bowel sounds auscultated by nurse, wound clean and well approximated, TATY drainage clear serous. continues with thrombocytopenia, still behind on intravascular volume( BUN and Creatinine elevated), i would give more IV fluids and DC vancomycin. 01/25/25 afebrile, normotensive, wound clean and well approximated, TATY drainage serous, abdomen non distended, soft, gastrografin small bowel series shows non obstructed GI tract and no evidence of extravasation. It is OK to initiate enteric feedings. 01/29/25 16 DAYS POST OPERATIVELY TRHE TATY DRAINAGE WHICH HAD CONSISTENTLY BEEN SEROUS OR SERO SANGUINEOUS HAS BECOME "DIRTY" BROWNISH DISCOLORATION, HER WOUND IS CLEAN AND WELL APPROXIMATED AND HER ABDOMEN IS SOFT AND NON DISTENDED, CT SCAN SHOWS SO0ME FLUID AND ACCUMULATION OF FLUID AROUND THE SPLEEN, WILL REQUEST CT GUIDED ASPIRATION OF SAME, WILL ORDER IRRIGATION OF DRAINS. SHE SI AFEBRILE AND MAINTAINS NORMAL BLOOD PRESSURE, HER WBC IS NORMAL. 01/30/25 improved, awake, being weaned off vent. abdomen non distended, non tender, taty drainage clearing with irrigation 02/02/25clinically unchanged, gastrografin small bowel series reported and normal, no extravasation reported, will order a follow up KUB for tomorrow AM 02/03/25 PATIENT HAD A GASTROGRAFIN SMALL BOWEL SERIES AND A FOLLOW UP KUB X RAYS NEITHER ONE OF WHICH SHOW EXTRAVASATION OF CONTRAST OR EVIDENCE OF FREE CONTRAST IN THE PERITONEAL CAVITY. THERE IS HOWEVER VISCOUS, BROWNISH FLUID DRAINING VIA BOTH TATY DRAINS AND THROUGH INFRAUMBILICAL PORTION OF MIDLINE WOUND, I REMOVED THE RICHIE FROM THE 3 CM SECTION OF THE INFRAUMBILICAL WOUND AND EVACUATED ABOUT 30 CC OF THIS FLUID AND INSTRUCTED THE NURSE TO PLACE A STOMA APPLIANCE ON THIS OPENING. 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 TODAY HER WBC IS ELEVATED, ABDOMEN CONTINUES TO BE NON DISTENDED, SOFT, BUT SHE DOES HAVE SLIGHT TENDERNESS IN THE PERIUMBILICAL AREA. I WILL TREAT THIS EXPECTANTLY FORM THE TIME BEING IN THE HOPE THAT THIS IS A "CONTROLLED" FISTULA AND HOPEFUL WILL HEAL SPONTANEOUSLY WITH NPO AND NUTRITIONAL SUPPORT. WILL WATCH CLOSELY, AFTER A FEW DAYS WILL GET A FISTULOGRAM TO PIN POINT THE ENTERIC ORIGIN OF THE FISTULIZATION. CONTINUE NGT SUCTION AND DRAIN IRRIGATION ORDERED02/05/25 02/05/25 remains sedated and intubated?ventilated, abdomen non distended soft, wound vac in place. TATY drainage serosanguineous 02/08/25 EXTUBATED, GOOD INSPIRATORY EFFORT, BP NML WITHOUT PRESSOR SUPPORT, ABDOMEN SOFT, NON DISTENDED, APPROPRIATELY TENDER, LABS REVIEWED. NO CHANGES TODAY OTHER THAN ALLOW ICE CHIPS PO. WILL ORDER GASTROGRAFIN SMALL BOWEL FOLLOWTHROUGH FOR Friday02/09/25 awake cooperative, wound vac in place, abdomen soft, non distended, appropriately tender, TATY drainage brownish discoloration, will irrigate, her WBC is normal and she is afebrile and normotensive. gastrografin tomorrow 02/10/25 AWAKE,COMFORTABLE, DENIES PAIN, ABDOMEN NON DISTENDED APPROPRIATELY TENDER, WOUND CLEAN AND WELL APPROXIMATED, DRAINS BEING IRRIGATED, LABS OK, GOOD URINE OUTPUT. "SURGICALLY" STABLE 02/11/25 feels well, passing flatus. is hungry, abdomen soft non distended, drainage clearing with irrigation, will wait for Gastrografin small bowel series to be completed, if normal will start po clear liquids 02/12/25 no nausea, change in TATY drainage colort, appears to contaIN, BILE, WILL DC po CLEAR LIQUIDS, CONTINUE ICE CGHIPS, SEND DRAin fluid for amylase and bilirubin, 02/13/25 states she feels well, abdomen non tender, non distended, wound clean and well approximated. drainage slightly clearer, keep npo for now, needs to resume TPN 02/14/25 PATIENT C/O BEING COLD BUT HAS NO PAIN, DRAINAGE SEEMS TO BE CLEARING, SHE HAD A BOWEL MOVEMENTS, ABDOMEN IS SOFT AND NON TENDER, NON DISTENDED, WOUND IS CLEAN AND WELL APPROXIMATED, WILL CONTINUE NPO STATUS AMYLASE ON TATY DRAINAGE FLUID IS GOING TO TAKE SEVERAL DAYS TO BECOME AVAILABLE. CONTINUE TPN 02/16/25 DENIES PAIN,STATES SHE FEELS BETTER, WOUND VAC IN PLACE, ABDOMEN NON TENDER,NON DISTENDED, TATY DRAINAGE SMALL TO MODERATE , WILL CONTINUE IRRIGATING DRAINS, WILL REQUEST GI CONSULT TO CONSIDER ENDOSCOPY. WBC NL,H/H STABLE , ALBUMIN STILL VERY LOW. , 02/17/25 CT SCAN REVIEWED, I SUSPECT THERE IS A SMALL LEAK FROM THE APPEARANCE OF IMAGING ALTHOUGH RADIOLOGIST RECOMMENDED REPEAT CT SCAN (ORDERED). THE DRAINAGE IS SMALL AMOUNT BUT NOW IT IS WITH AN ODOR, I WILL RE INSERT NGT TO ATTEMPT DECREASING THE GASTRIC CONTENTS. ABDOMEN IS SOFT, APPROPRIATELY TENDER, WOUND VAC IN PLACE 02/18/25 AFEBRILE, NORMOTENSIVE4, WBC NL, ALL IMAGING NEGATIVE, ANGIOGRAM SHOWS NO EVIDENCE OF HYPOPERFUSION, CONTRAST AND NON CONTRAST CT SCAN FAILED TO SHOW ANY EVIDENCE OF EXTRAVASATION, THE DRAINAGE CONTINUES TO BE BROWNISH DISCOLORED AND FOULS SMELLING, EXPLAINED TO PT'S SON THAT I HAVE NO EVIDENCE OF ANY GI LEAKAGE, WILL GET A GASTROGRAFIN ENEMA ON FRIDAY, I AM TRYING TO REFRAIN FROM OPERATING ON THE FRAIL ELDERLY PATIENT FOR THE THIRD TIME, SHE WILL NOT TOLERATE ANOTHYER OPERATION WELL. HER ALBUMIN REMAINS VERY LOW.WOUND VAC OK 02/19/25 feels ok,c/o being cold, abdomen soft. non distended, minimally tender, drainage seems to be little less, labs ok, continue as is 02/22/25 she feels well, abdomen is non tender, soft and non distended, drainage slightly less in volume, still discolored,gastrografin enema reviewed by me ( no radiologist/s interpretation available), she has not evacuated the gastrografin according to nurse. 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 will proceed with operation on 02/25/25 at 0715 AM. 02/27/25 SLIGHT IMPROVEMENT, ABDOMEN SOFT, NON DISTENDED, STOMA VIABLE WITHOUT FUNCTION, OK TO TRY GETTING OFF VENTILATOR. 03/01/25 extubated, conversant,oriented, abdomen non distended, appropriately tender, wound clean ans well approximated, drainage serous, stoma viable and with minimal liquid,no gas. will sips of water and ice po 03/02/25 awake comfortable, denies pain, abdomen appropriately tender, wound vac in place, afebrile, normotensive, drainage serosanguineous, cbc stable, stoma viable and with minimal output will resume irrigation of drain 03/03/25 awake ,cooperative, good inspiratory effort, afebrile, normotensive, wound covered with wound vac, drainage serous but cloudy(cultures ordered) abdomen non tender, stoma viable with minimal output. will order gastrografin ugi with small bowel follow throught for tomorow 03/04/25 vital signs stable, good urine output, wound vac ok, abdomen non tender. Xray pending 03/05/25 UGI X RAY SHOWS A NEW AREA OF LEAK,BEING ADEQUATELY DRAINED BY THE TATY DRAIN WHICH IS ADJACENT TO IT, HER ABDOMEN IS NON TENDER. WILL RESUME STRICT NPO STATUS, KEEP NGT TO CONTINUOUS SUCTION, I HAVE CALLED HER SON ILIANA AND EXPLAINED THAT PROBABLY THE INTESTINAL WALL IS NOT HEALING WHENEVER WE PLACE SUTURE AT SITES OF ANASTOMOSES. HER ABDOMEN IS NON TENDER, I WILL TREAT THIS CONSERVATIVELY FOR SOME TIME TO SEE IF THE LEAK MAY SHOW SOME EVIDENCE OF HEALING. YESTERDAY THERE WAS 500 CC OF TATY DRAINAGE. HER ALBUMIN LEVEL IS SLOWLY IMPROVING BUT STILL REMAINS LOW. IT APPEARS THAT THE SUTURES IN HER INTESTINAL ANASTOMOSES HOLD FOR ABOUT A WEEK AND THEN BREAK DOWN. (DRAINAGE TURNED FROM SEROSANGUINEOUS TO GREENISH YESTERDAY. 03/06/25 drainage slightly less in volume, still enteric contents abdomen softn and non tender, non distended. wound vac changed, wound healing, no chjanges for now. discussed with family. 03/08/29 feels better, no pain, abdomen soft and non tender, drainage minimally less, family at bedside, answered questions 03/09/25 son at bedside, patient feels "well" wants to eat, explained that we need to keep her intestine at rest' afebrile, normotensive, drainage less, abdomen non tender, wound vac in p-lace wbc normal today. h/h stable/ continue npo aqnd ngt there is stool in stoma appliance Plan discussed with: Patient Dietary Evaluation Review Comments: Nutrition Recommendation: 1) TPN to meet at least 75% estimated needs within 7 days 2) Monitor NPO status, lab values, wt trend, I/O Expected Outcomes/Goals: To meet >75% estimated needs Lab values to improve Fu 2-3 days Is there a minimum of two crit: Yes MELVA RAMESH MD Mar 09, 2025 12:31
--- NOTE | 2025-03-09 13:13 | DVHPN2 ---
Progress Note Date Seen: Mar 09, 2025 Resident Creating Document: MARIAN TELLO RESIDENT Has the PT tested + for MRSA If YES, has PT been informed?: No Medical Necessity Reason Pt with a Central, PICC or Fol: Yes The following are medically ne: PICC Line, Leach Catheter Reason for leach catheter: Strict I&O Subjective Review of Systems Patient seen and evaluated in bedside today. Patient is on 2-3 L oxygen. NGT 400 ml suctioned with dark fluid last night, but about 50ml today. Mild abd and back pain Patient is kept on NPO and is on TPN Gastrografin scan on 03/04 showed contrast extravasation from the proximal small bowel, possibly left sided jejunum near the surgical drain can be seen with a leak. Objective vital signs Vital Sign Date Time Temp Pulse Resp B/P (MAP) Pulse Ox O2 Delivery O2 Flow Rate FiO2 03/09/25 10:58 100 19 118/54 03/09/25 10:00 99 Nasal Cannula* 2 28 03/09/25 08:01 98.0 98.0 Total Intake and Output 03/08/25 03/08/25 03/09/25 15:00 23:00 07:00 Intake Total 883 ml 508 ml 408 ml Output Total 1175 ml 1520 ml Balance 883 ml -667 ml -1112 ml medications Current Medications Medications Dose Ordered Sig/Isaura Route Start Time Stop Time Status Last Admin Dose Admin Cefazolin Sodium 50 ml @ 100 mls/hr Q8HR IV 01/13/25 14:00 UNV Vasopressin 20 units/Sodium Chloride 100 ml @ 9 mls/hr Q11H7M IV 01/13/25 18:45 UNV Potassium Chloride 100 ml @ 50 mls/hr Q2H IV 01/16/25 12:45 01/16/25 18:44 UNV Vancomycin HCl 100 ml @ 100 mls/hr DAILY@1200 IV 01/20/25 12:00 UNV Amino Acids 0 ml @ 0 mls/hr PER PHARMACY IV 02/13/25 10:45 Ondansetron HCl 4 mg Q4HPRN PRN IV 02/21/25 09:30 02/24/25 10:45 4 MG Micafungin Sodium 100 mg/Sodium Chloride 100 ml @ 100 mls/hr DAILY IV 02/22/25 10:00 03/09/25 10:12 100 MLS/HR Multi-Ingredient Ointment 1 applic DAILY TOP 02/23/25 10:00 03/09/25 08:36 1 APPLIC Hydromorphone HCl 1 mg Q4HPRN PRN IV 02/23/25 13:30 03/09/25 10:28 1 MG Acetaminophen 650 mg Q4HP PRN PO 02/24/25 02:00 Lidocaine 1 patch DAILY@0230 TOP 02/24/25 02:30 03/07/25 03:34 1 PATCH Norepinephrine Bitartrate 250 ml @ 3.75 mls/hr Q24H IV 02/25/25 11:45 02/26/25 11:51 7.5 MLS/HR Meropenem 50 ml @ 17 mls/hr Q12HR@0800,2000 IV 02/26/25 08:00 03/09/25 08:26 17 MLS/HR Acetaminophen 650 mg Q6HP PRN [place] 02/26/25 09:00 Diagnostic Test (Pha) 1 strip Q4HR 02/26/25 16:00 Cancel Dextrose 50 ml UD PRN IV 02/26/25 14:15 Diagnostic Test (Pha) 1 strip IQ4HR 02/26/25 16:00 UNV Dextrose 50 ml UD PRN IV 02/26/25 16:00 UNV Insulin Human Regular Q6HR SC 03/02/25 12:00 03/08/25 06:53 2 UNITS Fat Emulsion Intravenous 100 ml/Sodium Acetate 60 meq/Sodium Phosphate 20 meq/ Potassium Acetate 40 meq/Potassium Phosphate 22 meq/ Magnesium Sulfate 8 meq/ Multivitamins 10 ml/Insulin Human Regular 5 units/ Amino Acids/ Dextrose/Purified Water 1,222.05 ml @ 51 mls/hr [id number] IV 03/08/25 22:00 03/09/25 21:59 03/08/25 22:48 51 MLS/HR Pantoprazole Sodium 40 mg BID IV 03/08/25 22:00 03/09/25 08:26 40 MG Daptomycin 400 mg/ Sodium Chloride 50 ml @ 100 mls/hr DAILY@1100 IV 03/08/25 15:30 03/09/25 12:04 100 MLS/HR Fat Emulsion Intravenous 100 ml/Sodium Acetate 60 meq/Sodium Phosphate 20 meq/ Potassium Acetate 60 meq/Potassium Phosphate 22 meq/ Magnesium Sulfate 10 meq/ Multivitamins 10 ml/Insulin Human Regular 5 units/ Amino Acids/ Dextrose/Purified Water 1,282.55 ml @ 53 mls/hr [id number] IV 03/09/25 22:00 03/10/25 21:59 Levothyroxine Sodium 50 mcg DAILY IV 03/09/25 10:00 03/09/25 10:12 50 MCG Examination Gen - mild conjunctival pallor, no scleral icterus Skin - Patients skin is warm and dry. HEENT - normocephalic, atraumatic, dry mucous membranes. Neck - supple, no lymphadenopathy Pulmonary - B/L diminished breath sounds in the bases. cardiovascular - regular S1,S2 heard GI - soft abdomen without tenderness. Bowel sounds hypoactive. Status post exploratory laparotomy with the abdominal closure with a wound VAC. Right lower quadrant ileostomy draining blackish fluid. CARMEN drain has serosanguineous drainage. Neurological - patient is alert and oriented x3 and is following commands laboratory and microbiology Laboratory Tests 03/09/25 04:27 Test 03/09/25 04:27 Range/Units Serum Glucose 119 H 74-106 mg/dL Microbiology Date/Time Source Procedure Growth Status 03/07/25 08:32 Blood Blood Culture - Preliminary Resulted 03/02/25 16:00 Urine - [place] Urine Culture - Preliminary Resulted 03/02/25 16:00 Aspirate Gram Stain - Final Resulted 03/02/25 16:00 Body Fluid Culture - Preliminary Enterococcus faecium - VRE Escherichia coli Resulted 02/25/25 11:48 Sputum Gram Stain - Final Complete 02/25/25 11:48 Sputum Respiratory Culture - Final Complete 01/13/25 17:10 Nose MRSA Screen - Final Complete Problem List/Assessment/Plan Problem List/Assessment/Plan Assessment Septic shock Peritonitis Small bowel perforation status post exploratory laparotomy #1 with the resection of perforated small bowel and enteroenterostomy 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, 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 Rivera Plan discussed with: Patient, Other (RN Odilia) Dietary Evaluation Review Comments: Nutrition Recommendation: 1) TPN to meet at least 75% estimated needs within 7 days 2) Monitor NPO status, lab values, wt trend, I/O Expected Outcomes/Goals: To meet >75% estimated needs Lab values to improve Fu 2-3 days Is there a minimum of two crit: Yes CC Plasma Assessment Blood Product Administration S: [id number] MARIAN TELLO RESIDENT Mar 09, 2025 13:13
--- NOTE | 2025-03-09 15:48 | DVHPNRES ---
Progress Note Date Seen: Mar 09, 2025 Resident Creating Document: ASHLEY TREJO RESIDENT Has the PT tested + for MRSA If YES, has PT been informed?: No Medical Necessity Reason Pt with a Central, PICC or Fol: Yes The following are medically ne: PICC Line, Leach Catheter Reason for leach catheter: Strict I&O Subjective Review of Systems This is a 80-year-old lady with past medical history of hypertension, AFib (on Eliquis), diabetes type 2, CKD, came to the hospital due to abdominal pain, and constipation. Admitted on 01/13/2025. Found to have peritonitis due to bowel perforation, and underwent emergent laparotomy with subsequent resection of perforated small bowel and enteroenterostomy. Due to abnormal CARMEN drainage, second exploratory laparotomy performed on 02/04 and found to have perforation near to previous perforation area, underwent resection of area with subsequent anastomosis of proximal jejunal loops. Patient seen and examined at bed side. Continue NPO. Patient is on 2 L oxygen, complains of 5/10 back pain. Patient is to continue PT, according to surgery patient might go to another laparotomy surgery. Contrast extravasation seen in the proximal small bowel. Stopped Protonix Drip. No other new complaint. Started on daptomycin. 400 mL drainage from NG tube, 270 mL drainage from CARMEN drain. Surgery commented Conservative management. Levothyroxin 50 started. Objective vital signs Vital Sign Date Time Temp Pulse Resp B/P (MAP) Pulse Ox O2 Delivery O2 Flow Rate FiO2 03/09/25 15:00 103 16 123/63 (83) 100 03/09/25 14:00 Nasal Cannula* 2 28 03/09/25 12:00 98.1 98.1 Total Intake and Output 03/08/25 03/08/25 03/09/25 15:00 23:00 07:00 Intake Total 883 ml 508 ml 408 ml Output Total 1175 ml 1520 ml Balance 883 ml -667 ml -1112 ml medications Current Medications Medications Dose Ordered Sig/Isaura Route Start Time Stop Time Status Last Admin Dose Admin Cefazolin Sodium 50 ml @ 100 mls/hr Q8HR IV 01/13/25 14:00 UNV Vasopressin 20 units/Sodium Chloride 100 ml @ 9 mls/hr Q11H7M IV 01/13/25 18:45 UNV Potassium Chloride 100 ml @ 50 mls/hr Q2H IV 01/16/25 12:45 01/16/25 18:44 UNV Vancomycin HCl 100 ml @ 100 mls/hr DAILY@1200 IV 01/20/25 12:00 UNV Amino Acids 0 ml @ 0 mls/hr PER PHARMACY IV 02/13/25 10:45 Ondansetron HCl 4 mg Q4HPRN PRN IV 02/21/25 09:30 02/24/25 10:45 4 MG Micafungin Sodium 100 mg/Sodium Chloride 100 ml @ 100 mls/hr DAILY IV 02/22/25 10:00 03/09/25 10:12 100 MLS/HR Multi-Ingredient Ointment 1 applic DAILY TOP 02/23/25 10:00 03/09/25 08:36 1 APPLIC Acetaminophen 650 mg Q4HP PRN PO 02/24/25 02:00 Lidocaine 1 patch DAILY@0230 TOP 02/24/25 02:30 03/07/25 03:34 1 PATCH Norepinephrine Bitartrate 250 ml @ 3.75 mls/hr Q24H IV 02/25/25 11:45 02/26/25 11:51 7.5 MLS/HR Meropenem 50 ml @ 17 mls/hr Q12HR@0800,2000 IV 02/26/25 08:00 03/09/25 08:26 17 MLS/HR Acetaminophen 650 mg Q6HP PRN RI 02/26/25 09:00 Diagnostic Test (Pha) 1 strip Q4HR 02/26/25 16:00 Cancel Dextrose 50 ml UD PRN IV 02/26/25 14:15 Diagnostic Test (Pha) 1 strip IQ4HR 02/26/25 16:00 UNV Dextrose 50 ml UD PRN IV 02/26/25 16:00 UNV Insulin Human Regular Q6HR SC 03/02/25 12:00 03/08/25 06:53 2 UNITS Fat Emulsion Intravenous 100 ml/Sodium Acetate 60 meq/Sodium Phosphate 20 meq/ Potassium Acetate 40 meq/Potassium Phosphate 22 meq/ Magnesium Sulfate 8 meq/ Multivitamins 10 ml/Insulin Human Regular 5 units/ Amino Acids/ Dextrose/Purified Water 1,222.05 ml @ 51 mls/hr [id number] IV 03/08/25 22:00 03/09/25 21:59 03/08/25 22:48 51 MLS/HR Pantoprazole Sodium 40 mg BID IV 03/08/25 22:00 03/09/25 08:26 40 MG Daptomycin 400 mg/ Sodium Chloride 50 ml @ 100 mls/hr DAILY@1100 IV 03/08/25 15:30 03/09/25 12:04 100 MLS/HR Fat Emulsion Intravenous 100 ml/Sodium Acetate 60 meq/Sodium Phosphate 20 meq/ Potassium Acetate 60 meq/Potassium Phosphate 22 meq/ Magnesium Sulfate 10 meq/ Multivitamins 10 ml/Insulin Human Regular 5 units/ Amino Acids/ Dextrose/Purified Water 1,282.55 ml @ 53 mls/hr [id number] IV 03/09/25 22:00 03/10/25 21:59 Levothyroxine Sodium 50 mcg DAILY IV 03/09/25 10:00 03/09/25 10:12 50 MCG Hydromorphone HCl 0.5 mg Q4HPRN PRN IV 03/09/25 15:00 Examination Pt is lying on bed General Appearance: Alert and Oriented x2 HEENT: Atraumatic, Mucous membranes moist/pink Respiratory: Clear to auscultation, Normal air movement, No added sounds Cardiovascular: Regular rate, Normal S1, Normal S2, No murmurs Abdominal: Active bowel sounds, Soft, no distention, no tenderness, colostomy bag in place and 1 CARMEN drain with greenish fluid Extremities: There is bilateral upper extremity edema, with seeping fluid Skin: No Significant rash, except past surgical scars Neuro: more alert and oriented 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 laboratory and microbiology Laboratory Tests 03/09/25 04:27 Test 03/09/25 04:27 Range/Units Serum Glucose 119 H 74-106 mg/dL Microbiology Date/Time Source Procedure Growth Status 03/07/25 08:32 Blood Blood Culture - Preliminary Resulted 03/02/25 16:00 Urine - [place] Urine Culture - Preliminary Resulted 03/02/25 16:00 Aspirate Gram Stain - Final Resulted 03/02/25 16:00 Body Fluid Culture - Preliminary Enterococcus faecium - VRE Escherichia coli Resulted 02/25/25 11:48 Sputum Gram Stain - Final Complete 02/25/25 11:48 Sputum Respiratory Culture - Final Complete 01/13/25 17:10 Nose MRSA Screen - Final Complete Problem List/Assessment/Plan Problem List/Assessment/Plan Neurology # Chronic ischemic changes # Chronic Cortical atrophy - Head CT (01/29): Chronic microangiopathy and cortical atrophy. - reintubated on 02/25/25 during surgery # Extubated on 02/28 Cardiovascular # Septic shock secondary to hollow viscus perforation. # Paroxysmal atrial fibrillation with a second-degree hypercoagulable state currently NSR # Chronic diastolic heart failure with preserved EF 65% # Hypertension. - Echocardiogram (01/15): Normal LV EF (65%), mild LVH, mild LV diastolic dysfunction. - Chest X-ray: Bibasilar atelectasis. - ZEFERINO?DS?-VASc score >5 - cardiology on board - initially on Lovenox therapeutic but Dc'd due to low hemoglobin - Labetalol PRN Pulmonary # Acute hypoxic respiratory failure secondary to bilateral pleural effusion/pneumonia s/p re-intubation, status post extubation 02/28 - monitor with daily CXR - Sputum culture 01/29 Presumptive Zoe albicans and : negative - Reintubated on 02/25. - Chest Physiotherapy ongoing. - extubated today Gastrointestinal / Liver # Acute Bacterial Peritonitis due to small bowel perforation vs Perisplenic abscess. s/p multiple laparotomies # Transaminitis secondary to shock. # Anion gap metabolic acidosis due to bowel ischemia and lactic acidosis - CT abdomen/pelvis (02/16): Pneumoperitoneum, extraluminal contrast, perisplenic/subdiaphragmatic collection (7.1 1.1 cm). - Small bowel series (02/11): Normal. - Gastrografin (02/21): [place]-enteric fistula, contrast leak from distal transverse colon. Procedures: - First laparotomy (01/13): Resection of perforated small bowel, enteroenterostomy. - Second laparotomy (02/04): Resection near previous perforation, jejunal anastomosis. - Third laparotomy (02/25): Resection of distal ileum, end-to-end anastomosis, ileostomy. Cultures: - Peritoneal fluid (01/13): E. coli, Klebsiella pneumoniae (sensitive to meropenem). - Peritoneal fluid (02/17): E. coli, Stenotrophomonas maltophilia. - IR-guided pigtail drain placed; drained 50 cc purulent fluid. - CARMEN drains placed in 4 quadrants initially and now patient has only 1 CARMEN drain - Initially NPO, TPN initiated. - NG tube placed. - IV antimicrobials Daptomycin meropenem and micafungin - Initially patient is on Levofloxacin, Flagyl (02/03); Vancomycin and Meropenem (); Meropenem (); Vancomycin () then eventually switched to above antimicrobials - Started Daptomycin (03/08), Bactrim stopped (03/08) -Gastrografin scan(03/05) showed Contrast extravasation is seen in the proximal small bowel, possibly left sided jejunum near the surgical drain can be seen with a leak. -patient kept NPO Genitourinary / Kidney # ISRRAEL likely secondary to shock/volume depletion- resolved - Nephrology consulted for ISRRAEL. Endocrine # Hypothyroidism: TSH 42.29, low T4 # Type 2 diabetes mellitus: HbA1c 8.2%.- # Episodes of hypoglycemia. # Hypothyroidism - continuously monitoring blood glucose and on ISS - Started on Levothyroxine 50 daily Metabolic Hypokalemia. Hyperkalemia. Hyponatremia: D5W at 75 mL/hr per nephrology. Hypophosphatemia: given IV phosphate Nutrition: Severe protein malnutrition. Hematology # Acute on chronic anemia (hemodilution/post-surgical). # Severe thrombocytopenia, HIT # Acute DVT of right upper extremity. - Ultrasound (01/17): Partial thrombus in right internal jugular and cephalic veins. - hemoglobin today 6.9, transfused 1 more unit of PRBC 02/28 - Transfused total 8 units PRBC, 2 platelet units. - continuously monitor H&H - hold blood thinners Musculoskeletal / Skin # Rib fracture due to fall. Nutrition: TPN initiated. Bowel Regimen: As needed. GI Prophylaxis: Pantoprazole bid DVT Prophylaxis: Lovenox (held/ Dc'd due to low hemoglobin). Lines / Tubes / Devices Airway: Intubated on 01/14, extubated on 02/07, reintubated on 02/25 extubated 02/28 Vascular Access: PICC line placed in right upper thigh on 01/26. Drips: Dc'd pressors and sedatives. Urinary: Leach catheter placed on 01/14, exchanged on 02/14. CARMEN drains in 1 quadrant. Goals of care addressed with patient's family members for more than 29 minutes: Full code status Care plan updated to the patient family Chris (son) on bedside and addressed all concerns Critical care time spent more than 63 minutes excluding procedures and including discussion with the family Case discussed with Dr Self and RN Plan discussed with: Patient, Son My Orders My Orders Orders - ASHLEY TREJO RESIDENT Procedure Category Date Status Time Chest Xray 1 View XY 03/09/25 Resulted 04:00 * Infectious [place]- CONS 03/08/25 Transmitted [facility] [place] 18:49 Levothyroxine PHA 03/09/25 In Process Injection (Synthroid 10:00 Hydromorphone PHA 03/09/25 In Process Injection (Dilaudid 15:00 Complete Blood Count LAB 03/10/25 Verified 04:00 Comprehensive LAB 03/10/25 Verified Metabolic Panel 04:00 Dietary Evaluation Review Comments: Nutrition Recommendation: 1) TPN to meet at least 75% estimated needs within 7 days 2) Monitor NPO status, lab values, wt trend, I/O Expected Outcomes/Goals: To meet >75% estimated needs Lab values to improve Fu 2-3 days Is there a minimum of two crit: Yes CC Plasma Assessment Blood Product Administration S: [id number] Date of Service: Mar 09, 2025 Billing Provider: ZBIGNIEW SELF MD Common Visit Codes: 56194-[id number] CARE 30-74 MIN ASHLEY TREJO Mar 09, 2025 15:48 ZBIGNIEW SELF MD Mar 10, 2025 11:48
[2025-03-09] MEDS: LEVOTHYROXINE SODIUM 100 MCG/5 ML INJ IV ONE (16:24)
[2025-03-09] MEDS: TPN PER PHARMACY IV NR (21:45)
--- NOTE | 2025-03-09 22:13 | DVHINCON2 ---
Allergies: Coded Allergies: NO KNOWN ALLERGIES (Unverified , 01/12/25) Home Meds Reported Medications Metoprolol Tartrate (Lopressor) 25 Mg Tb, 1 TAB PO BID 01/13/25 Levothyroxine Sodium (Levothyroxine Sodium) 50 Mcg Tab, 1 TAB PO QAM 01/13/25 Nortriptyline HCl (Nortriptyline Hydrochlori) 10 Mg Cap, 2 CAP PO 01/13/25 Current Medications Current Medications Medications (Trade) Dose Ordered Sig/Isaura Route PRN Reason Start Time Stop Time Status Last Admin Fat Emulsion Intravenous 100 ml/Sodium Acetate 60 meq/Sodium Phosphate 20 meq/ Potassium Acetate 60 meq/Potassium Phosphate 22 meq/ Magnesium Sulfate 10 meq/ Multivitamins 10 ml/Insulin Human Regular 5 units/ Amino Acids/ Dextrose/Purified Water 1,282.55 ml @ 53 mls/hr [id number] IV 03/09/25 22:00 03/10/25 21:59 03/09/25 21:45 Levothyroxine Sodium (Synthroid Injection) 50 mcg DAILY IV 03/09/25 10:00 03/09/25 10:12 Hydromorphone HCl (Dilaudid Injection) 0.5 mg Q4HPRN PRN IV MODERATE PAIN (4-6 PAIN SCALE) 03/09/25 15:00 Vital Signs Vital Signs Date Time Temp Pulse Resp B/P (MAP) Pulse Ox O2 Delivery O2 Flow Rate FiO2 03/09/25 20:00 20 100 Nasal Cannula* 2 28 03/09/25 20:00 101 03/09/25 20:00 98.3 112/62 (79) 98.3 Labs/Diagnostic Data Labs Test 03/09/25 18:23 03/09/25 04:27 03/08/25 12:06 03/07/25 07:28 Range/Units POC Glucose 113 H 70-106 mg/dl White Blood Count 8.8 # 4.4-10.8 10^3/uL Red Blood Count 2.71 L 4.0-5.20 10^6/uL Hemoglobin 8.8 L 12.2-16.2 g/dL Hematocrit 25.6 L 36.0-46.0 % Mean Corpuscular Volume 94.3 80.0-100.0 fL Mean Corpuscular Hemoglobin 32.6 H 28.0-32.0 pg Mean Corpuscular Hemoglobin Concent 34.6 32.0-36.0 g/dL Red Cell Distribution Width 17.1 H 11.8-14.3 % Platelet Count 86 L 140-450 10^3/uL Mean Platelet Volume 10.8 6.9-10.8 fL Neutrophils (%) (Auto) 79.0 37.0-80.0 % Lymphocytes (%) (Auto) 14.3 10.0-50.0 % Monocytes (%) (Auto) 5.8 0.0-12.0 % Eosinophils (%) (Auto) 0.5 0.0-7.0 % Basophils (%) (Auto) 0.4 0.0-2.0 % Neutrophils # (Auto) 7.0 1.6-8.6 10 ^3/uL Lymphocytes # (Auto) 1.3 0.4-5.4 10 ^3/uL Monocytes # (Auto) 0.5 0-1.3 10 ^3/uL Eosinophils # (Auto) 0 0-0.8 10 ^3/uL Basophils # (Auto) 0 0-0.2 10 ^3/uL Nucleated Red Blood Cells 0.0 % Sodium Level 139 136-145 mmol/L Potassium Level 3.8 3.5-5.1 mmol/L Chloride Level 107 98-107 mmol/L Carbon Dioxide Level 23 20-31 mmol/L Anion Gap 9 5-15 Blood Urea Nitrogen 36 H 9-23 mg/dL Creatinine 1.05 H 0.550-1.02 mg/dL Glomerular Filtration Rate Calc 54 >90 mL/min BUN/Creatinine Ratio 34.3 H 10.0-20.0 Serum Glucose 119 H 74-106 mg/dL Calcium Level 8.3 L 8.7-10.4 mg/dL Phosphorus Level 3.5 2.4-5.1 mg/dL Magnesium Level 1.9 1.6-2.6 mg/dL Total Bilirubin 2.3 H 0.2-1.0 mg/dL Aspartate Amino Transferase (AST) 87 H 13-40 U/L Alanine Aminotransferase (ALT) 78 H 7-40 U/L Alkaline Phosphatase 277 H 46-116 U/L Total Protein 5.3 L 5.7-8.2 g/dL Albumin 2.4 L 3.2-4.8 g/dL Triglycerides Level 154 H < 150 mg/dL Thyroid Stimulating Hormone (TSH) 42.72 H 0.55-4.78 uIU/mL Free Thyroxine (T4) Calculated 0.58 L 0.89-1.76 ng/dL Total Triiodothyronine (TT3) 0.48 L 0.60-1.81 ng/mL Miscellaneous Referred Test (Rm Tmp Sent to [facility] Prothrombin Time 11.9 H 9.3-11.8 sec Prothrombin Time INR 1.14 0.9-1.15 Activated Partial Thromboplast Time 29.2 24.5-34.5 SEC Test 03/02/25 03:10 02/28/25 10:34 02/28/25 07:35 02/28/25 06:02 Range/Units Direct Bilirubin 2.0 H <0.3 mg/dL Lactate Dehydrogenase 280 H 120-246 U/L Blood Gas Specimen Type Arterial Blood Gas Sample Site Left brachial Blood Gas Patient Temperature 37.0 Arterial Blood Date Drawn [id number] Arterial Blood pH 7.506 H 7.350-7.450 Arterial Blood Partial Pressure CO2 30.3 L 32.0-45.0 mmHg Arterial Blood Partial Pressure O2 94.1 83.0-108.0 mmHg Arterial Blood HCO3 23.4 21.0-28.0 mmol/L Arterial Blood Oxygen Saturation 96.7 94.0-98.0 % Arterial Blood Base Excess 0.9 -2.0-3.0 mmol/L Arterial Blood Oxyhemoglobin 95.8 94.0-98.0 % Arterial Blood Carboxyhemoglobin 0.3 L 0.5-1.5 % Arterial Blood Methemoglobin 0.6 0.0-1.5 % Syed Test N/a Blood Gas Total Hemoglobin 10.60 L 12.0-16.0 g/dL Blood Gas Modality Vent - cpap FiO2 % 30.0 Blood Gas Pressure Support 7 Blood Gas PEEP or CPAP 5.0 Blood Gas Set Respiration Rate 18.0 Blood Gas Tidal Volume 450.0 Gastric Fluid pH 1 Gastric Fluid Occult Blood Negative Negative Test 02/27/25 06:46 02/25/25 19:39 02/25/25 18:40 02/25/25 13:15 Range/Units Lactic Acid Level 3.4 *H 0.4-2.0 mmol/L Differential Total Cells Counted 100.0 100 Neutrophils % (Manual) 90 H 37.0-80.0 Band Neutrophils % (Manual) 0 Lymphocytes % (Manual) 5 L 10.0-50.0 Monocytes % (Manual) 5 0-12 Eosinophils % (Manual) 0 0-7 Basophils % (Manual) 0 0.0-2.0 Metamyelocytes % (manual) 0 Myelocytes % (Manual) 0 Promyelocytes % (Manual) 0 Blast Cells % (Manual) 0 Reactive Lymphocytes 0 Platelet Estimate Adequate Blood Gas Critical Value Read Back Yes Blood Gas Notified Whom niru Zimmerman md Blood Gas Notified Time [id number] Blood Gas Notified By pamela Zabala, senior naval [employer] Blood Gas Spontaneous Rate 16 Test 02/24/25 02:46 02/22/25 19:05 02/20/25 03:45 02/15/25 03:20 Range/Units Large Platelets Few Anisocytosis (manual) Slight Stomatocytes Few Vancomycin Level Trough 14.7 H 5-10 ug/mL Vitamin B12 Level 2328 H 211-911 pg/mL Vitamin D 25-Hydroxy 36.4 30.0-100 ng/mL Random Vancomycin Level 15.1 H 5-10 ug/mL Test 02/07/25 08:22 02/01/25 03:30 01/21/25 03:06 01/17/25 11:20 Range/Units Blood Gas Comments Cpap ps 8/+5 Iron Level 30 L 50-170 ug/dL Total Iron Binding Capacity 163 L 250-425 ug/dL Percent Iron Saturation 18.4 15-50 % Ferritin 250.4 10-291 ng/mL Prealbumin < 3.0 L 10.0-40.0 md/dL B-Type Natriuretic Peptide 108.02 0-100 pg/mL Haptoglobin 160 42-346 mg/dL Fibrinogen 256 177-375 mg/dL D-Dimer, Quantitative 27.68 H 0.0-0.49 mg/L FEU Test 01/14/25 02:00 01/13/25 19:04 01/13/25 07:59 01/12/25 21:30 Range/Units Urine Color Yellow Yellow Urine Clarity Turbid H Clear Urine pH 6.0 5.0-9.0 Urine Specific [place] 1.016 1.001-1.035 Urine Protein 1+ H Negative Urine Ketones Trace Negative Urine Blood 1+ H Negative /uL Urine Nitrite Negative Negative Urine Bilirubin Negative Negative Urine Urobilinogen Normal Negative mg/dL Urine Leukocyte Esterase Negative Negative /uL Urine RBC 10 0 - 4 /hpf Urine Microscopic WBC 2 0-5 /HPF Urine Squamous Epithelial Cells Few <5 /hpf Urine Amorphous Crystals Few None Seen /hpf Urine Bacteria None seen None Seen /hpf Urine Creatinine 34.09 30.0-125.0 mg/dL Urine Protein/Creatinine Ratio 3.85 Urine Sodium 76 40-220 mmol/L Urine Glucose Normal Normal mg/dL Urine Total Protein 131.1 H 1-14 mg/dL Rheumatoid Factor 18.9 H <14.0 IU/mL Anti-Nuclear Antibody Screen Negative Negative Cytoplasmic ANCA (c-ANCA) Antibody <1:20 Neg:<1:20 titer Atypical p-ANCA <1:20 Neg:<1:20 titer Perinuclear ANCA (p-ANCA) Antibody <1:20 Neg:<1:20 titer Complement C3 112 82-167 mg/dL Complement C4 20 12-38 mg/dL Onel Cells Few Hemoglobin A1c 8.2 H <5.7 % A1C Cholesterol Level 81 < 200 mg/dL LDL Cholesterol 22 < 100 mg/dL HDL Cholesterol 14 L 40-59 mg/dL Lipase 21 12-53 U/L Microbiology Date/Time Source Procedure Growth Status 03/07/25 08:32 Blood Blood Culture - Preliminary Resulted 03/02/25 16:00 Urine - [place] Urine Culture - Preliminary Resulted 03/02/25 16:00 Aspirate Gram Stain - Final Resulted 03/02/25 16:00 Body Fluid Culture - Preliminary Enterococcus faecium - VRE Escherichia coli Resulted 02/25/25 11:48 Sputum Gram Stain - Final Complete 02/25/25 11:48 Sputum Respiratory Culture - Final Complete 01/13/25 17:10 Nose MRSA Screen - Final Complete YARON MALAVE MD Mar 09, 2025 22:13
[2025-03-09] MEDS: HYDROmorphone HCL 2 MG/ML VL/or syr IV PRN (23:00)
[2025-03-10] VITALS (30 sets, daily range): BP systolic 12–142; BP diastolic 45–83; PULSE 99–118; RESP 10–24; TEMP 97.9–98.7; O2SAT 91–100
[2025-03-10 04:44] LABS: Hematocrit 27.8 % (36.0-46.0); Hemoglobin 9.3 g/dL (12.2-16.2); Mean Corpuscular Hemoglobin 33.5 pg (28.0-32.0); Mean Corpuscular Volume 99.5 fL (80.0-100.0); Nucleated Red Blood Cells % 0.0 %
[2025-03-10 05:05] LABS: Anion Gap 11 (5-15); Carbon Dioxide 24 mmol/L (20-31); Potassium 4.1 mmol/L (3.5-5.1); Sodium 143 mmol/L (136-145)
[2025-03-10 05:06] LABS: Glucose 98 mg/dL (74-106)
[2025-03-10 05:07] LABS: Magnesium 2.2 mg/dL (1.6-2.6)
[2025-03-10 05:18] LABS: Alanine Aminotransferase 78 U/L (7-40); Albumin 2.3 g/dL (3.2-4.8); Alkaline Phosphatase 320 U/L (46-116); Bilirubin, Total 2.8 mg/dL (0.2-1.0); Blood Urea Nitrogen 44 mg/dL (9-23); Calcium 8.6 mg/dL (8.7-10.4); Chloride 108 mmol/L (98-107); Total Protein 5.3 g/dL (5.7-8.2)
[2025-03-10 05:19] LABS: BUN/Creatinine Ratio 44.9 (10.0-20.0)
[2025-03-11] VITALS (32 sets, daily range): BP systolic 85–129; BP diastolic 38–93; PULSE 100–124; RESP 10–25; TEMP 96.9–98.2; O2SAT 88–100
[2025-03-11 05:58] LABS: Hematocrit 29.6 % (36.0-46.0); Hemoglobin 9.9 g/dL (12.2-16.2); Mean Corpuscular Hemoglobin 32.4 pg (28.0-32.0); Mean Corpuscular Volume 97.0 fL (80.0-100.0); Nucleated Red Blood Cells % 0.0 %
[2025-03-11 06:17] LABS: Anion Gap 9 (5-15); BUN/Creatinine Ratio 38.4 (10.0-20.0); Calcium 9.3 mg/dL (8.7-10.4); Carbon Dioxide 25 mmol/L (20-31); Potassium 4.3 mmol/L (3.5-5.1); Sodium 142 mmol/L (136-145); Total Protein 6.0 g/dL (5.7-8.2)
[2025-03-11 06:24] LABS: Alanine Aminotransferase 69 U/L (7-40); Albumin 2.7 g/dL (3.2-4.8); Alkaline Phosphatase 304 U/L (46-116); Bilirubin, Total 3.2 mg/dL (0.2-1.0); Blood Urea Nitrogen 38 mg/dL (9-23); Chloride 108 mmol/L (98-107); Glucose 137 mg/dL (74-106)
[2025-03-11 06:25] LABS: Magnesium 2.6 mg/dL (1.6-2.6)
--- NOTE | 2025-03-11 11:06 | DVHPN2 ---
Subjective Date Seen: Mar 10, 2025 Post op day Post op day: 0 Patient reports: Feels worse Objective Vitals Vital Sign Date Time Temp Pulse Resp B/P (MAP) Pulse Ox O2 Delivery O2 Flow Rate FiO2 03/10/25 08:01 98.7 107 18 133/78 (96) 95 98.7 03/10/25 08:00 Nasal Cannula* 2 28 Total Intake and Output 03/09/25 03/09/25 03/10/25 15:00 23:00 07:00 Intake Total 558 ml 499 ml 424 ml Output Total 1120 ml 1220 ml Balance 558 ml -621 ml -796 ml Medications Current Medications Medications Dose Ordered Sig/Isaura Route Start Time Stop Time Status Last Admin Dose Admin Cefazolin Sodium 50 ml @ 100 mls/hr Q8HR IV 01/13/25 14:00 UNV Vasopressin 20 units/Sodium Chloride 100 ml @ 9 mls/hr Q11H7M IV 01/13/25 18:45 UNV Potassium Chloride 100 ml @ 50 mls/hr Q2H IV 01/16/25 12:45 01/16/25 18:44 UNV Vancomycin HCl 100 ml @ 100 mls/hr DAILY@1200 IV 01/20/25 12:00 UNV Amino Acids 0 ml @ 0 mls/hr PER PHARMACY IV 02/13/25 10:45 Ondansetron HCl 4 mg Q4HPRN PRN IV 02/21/25 09:30 02/24/25 10:45 4 MG Micafungin Sodium 100 mg/Sodium Chloride 100 ml @ 100 mls/hr DAILY IV 02/22/25 10:00 03/09/25 10:12 100 MLS/HR Multi-Ingredient Ointment 1 applic DAILY TOP 02/23/25 10:00 03/09/25 08:36 1 APPLIC Acetaminophen 650 mg Q4HP PRN PO 02/24/25 02:00 Lidocaine 1 patch DAILY@0230 TOP 02/24/25 02:30 03/10/25 02:02 1 PATCH Norepinephrine Bitartrate 250 ml @ 3.75 mls/hr Q24H IV 02/25/25 11:45 02/26/25 11:51 7.5 MLS/HR Meropenem 50 ml @ 17 mls/hr Q12HR@08,1999 IV 02/26/25 08:00 03/10/25 07:43 17 MLS/HR Acetaminophen 650 mg Q6HP PRN [place] 02/26/25 09:00 Diagnostic Test (Pha) 1 strip Q4HR 02/26/25 16:00 Cancel Dextrose 50 ml UD PRN IV 02/26/25 14:15 Diagnostic Test (Pha) 1 strip IQ4HR 02/26/25 16:00 UNV Dextrose 50 ml UD PRN IV 02/26/25 16:00 UNV Insulin Human Regular Q6HR SC 03/02/25 12:00 03/09/25 23:41 2 UNITS Pantoprazole Sodium 40 mg BID IV 03/08/25 22:00 03/09/25 21:27 40 MG Daptomycin 400 mg/ Sodium Chloride 50 ml @ 100 mls/hr DAILY@1100 IV 03/08/25 15:30 03/09/25 12:04 100 MLS/HR Fat Emulsion Intravenous 100 ml/Sodium Acetate 60 meq/Sodium Phosphate 20 meq/ Potassium Acetate 60 meq/Potassium Phosphate 22 meq/ Magnesium Sulfate 10 meq/ Multivitamins 10 ml/Insulin Human Regular 5 units/ Amino Acids/ Dextrose/Purified Water 1,282.55 ml @ 53 mls/hr [id number] IV 03/09/25 22:00 03/10/25 21:59 03/09/25 21:45 53 MLS/HR Levothyroxine Sodium 50 mcg DAILY IV 03/09/25 10:00 03/09/25 10:12 50 MCG Hydromorphone HCl 0.5 mg Q4HPRN PRN IV 03/09/25 15:00 03/10/25 06:56 0.5 MG Fat Emulsion Intravenous 150 ml/Sodium Acetate 20 meq/Potassium Acetate 10 meq/ Potassium Phosphate 11 meq/ Magnesium Sulfate 10 meq/ Multivitamins 10 ml/Insulin Human Regular 3 units/ Amino Acids/ Dextrose/Purified Water 1,380.03 ml @ 57 mls/hr [id number] IV 03/10/25 22:00 03/11/25 21:59 Labs and Microbiology Laboratory Tests 03/10/25 04:00 Test 03/10/25 04:00 Range/Units Serum Glucose 98 74-106 mg/dL Ass/Plan Labs and/or images reviewed: Labs reviewed by me, Image(s) reviewed by me Problem List Assessment Septic shock Peritonitis Small bowel perforation status post exploratory laparotomy #1 with the resection of perforated small bowel and enteroenterostomy 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, 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 Rivear Assessment/Plan 01/19/25 s/p Exploratory laparotomy, lysis of adhesions, extensive lavage, resection of perforated small bowel, enteroenterostomy. unchanged from yesterday abdomen soft, non distended, CARMEN drainage clear serous, no bowel activity, febrile, urine output ok, continues with thrombocytopenia, Plan: continue current treatment discussed with Dr. Christy 01/21/2025 s/p Exploratory laparotomy, lysis of adhesions, extensive lavage, resection of perforated small bowel, enteroenterostomy. abdomen soft, non distended, CARMEN drainage clear serous, no bowel activity, urine output ok, platelet count improved albumin low off pressors blood culture , gram negative rods Plan: continue meropenem antibiotics albumin x3 discussed with Dr. Christy 01/22/2025 s/p Exploratory laparotomy, lysis of adhesions, extensive lavage, resection of perforated small bowel, enteroenterostomy. abdomen soft, non distended, CARMEN drainage clear serous, no bowel activity, urine output ok, platelet count improved blood culture , gram positive rods labs reviewed Plan: continue with current treatment discussed with Dr. Christy 01/24/2025 s/p Exploratory laparotomy, lysis of adhesions, extensive lavage, resection of perforated small bowel, enteroenterostomy. abdomen soft, non distended, CARMEN drainage clear serous, no bowel activity, urine output ok, platelet count improved labs reviewed Plan: small bowel series discussed with Dr. Christy 01/31/2025 s/p Exploratory laparotomy, lysis of adhesions, extensive lavage, resection of perforated small bowel, enteroenterostomy. abdomen soft, non distended, CARMEN drainage brownish, urine output ok labs reviewed Plan: small bowel series on Friday discussed with Dr. Christy 02/06/2025 Surgery: Exploratory laparotomy, lysis of adhesions, evacuation of pelvic and abdominal infection, resection of proximal jejunum, ileostomy, and jejunostomy. Post-Op Day: 2 Notes and labs were reviewed. Hemoglobin was 6.6 this morning, and a blood transfusion is currently being administered. Physical Exam: - Currently intubated and receiving fentanyl without other sedation. - Abdomen is soft and nondistended. - Minimal serosanguineous fluid is noted in the CARMEN drains. - The wound VAC has minimal sanguineous output. The wound is clean. Plan: - Continue current treatment. - Discussed case with Dr. Christy no changes to the plan of care at this time. 02/26/25 labs reviewed patient intubated , sedated abdomen soft, non distended wound vac stoma ok drain serous fluid Plan: continue current treatment 02/28/25 - Patient is intubated and responds to stimuli. no changes from yesterday : Abdomen is soft and non-distended. Stoma is pink. The wound is clean, dry, and intact with a wound vac in place. CARMEN drains have serous fluid output. - Investigations with results: Hemoglobin is low. Plan: - Treatment planned: Receiving one unit of packed red blood cells. CPAP today. Continue current treatment plan 03/10/2025 patient states feeling well : Abdomen is soft and non-distended. fecal matter in stoma bag . The wound is clean, dry, and intact with a wound vac in place. CARMEN drains have brown fluid. -WBC normal Plan: continue current treatment Prognosis: Poor Plan discussed with patient , Visit Coding Surgery Date of Service if different f: Mar 10, 2025 Billing Provider: MELVA CHRISTY MD Surgery Visit Codes: [id number] INP/OBS CARE(HIGH) CLAYTON POWERS NP Mar 10, 2025 10:16
--- NOTE | 2025-03-11 11:19 | DVHPNRES ---
Progress Note Date Seen: Mar 10, 2025 Resident Creating Document: ASHLEY TREJO RESIDENT Has the PT tested + for MRSA If YES, has PT been informed?: No Medical Necessity Reason Pt with a Central, PICC or Fol: Yes The following are medically ne: PICC Line, Leach Catheter Reason for leach catheter: Strict I&O Subjective Review of Systems This is a 80-year-old lady with past medical history of hypertension, AFib (on Eliquis), diabetes type 2, CKD, came to the hospital due to abdominal pain, and constipation. Admitted on 01/13/2025. Found to have peritonitis due to bowel perforation, and underwent emergent laparotomy with subsequent resection of perforated small bowel and enteroenterostomy. Due to abnormal CARMEN drainage, second exploratory laparotomy performed on 02/04 and found to have perforation near to previous perforation area, underwent resection of area with subsequent anastomosis of proximal jejunal loops. Patient seen and examined at bed side. Continue NPO. Patient is on 2 L oxygen, complains of 5/10 back pain. Patient is to continue PT, according to surgery patient might go to another laparotomy surgery. Contrast extravasation seen in the proximal small bowel. Stopped Protonix Drip. No other new complaint. Started on daptomycin. Today patient is a little confused might be due to delirium. 100 mL drainage from NG tube, 2320 mL drainage from CARMEN drain. Surgery following, Mentioned conservative management. Objective vital signs Vital Sign Date Time Temp Pulse Resp B/P (MAP) Pulse Ox O2 Delivery O2 Flow Rate FiO2 03/10/25 15:01 107 10 122/77 (92) 99 03/10/25 14:00 Nasal Cannula* 2 28 03/10/25 12:00 98.6 98.6 Total Intake and Output 03/09/25 03/09/25 03/10/25 15:00 23:00 07:00 Intake Total 558 ml 499 ml 424 ml Output Total 1120 ml 1220 ml Balance 558 ml -621 ml -796 ml medications Current Medications Medications Dose Ordered Sig/Isaura Route Start Time Stop Time Status Last Admin Dose Admin Cefazolin Sodium 50 ml @ 100 mls/hr Q8HR IV 01/13/25 14:00 UNV Vasopressin 20 units/Sodium Chloride 100 ml @ 9 mls/hr Q11H7M IV 01/13/25 18:45 UNV Potassium Chloride 100 ml @ 50 mls/hr Q2H IV 01/16/25 12:45 01/16/25 18:44 UNV Vancomycin HCl 100 ml @ 100 mls/hr DAILY@1200 IV 01/20/25 12:00 UNV Amino Acids 0 ml @ 0 mls/hr PER PHARMACY IV 02/13/25 10:45 Ondansetron HCl 4 mg Q4HPRN PRN IV 02/21/25 09:30 02/24/25 10:45 4 MG Micafungin Sodium 100 mg/Sodium Chloride 100 ml @ 100 mls/hr DAILY IV 02/22/25 10:00 03/10/25 10:12 100 MLS/HR Multi-Ingredient Ointment 1 applic DAILY TOP 02/23/25 10:00 03/10/25 10:12 1 APPLIC Acetaminophen 650 mg Q4HP PRN PO 02/24/25 02:00 Lidocaine 1 patch DAILY@0230 TOP 02/24/25 02:30 03/10/25 02:02 1 PATCH Norepinephrine Bitartrate 250 ml @ 3.75 mls/hr Q24H IV 02/25/25 11:45 02/26/25 11:51 7.5 MLS/HR Meropenem 50 ml @ 17 mls/hr Q12HR@0800,2000 IV 02/26/25 08:00 03/10/25 07:43 17 MLS/HR Acetaminophen 650 mg Q6HP PRN [place] 02/26/25 09:00 Diagnostic Test (Pha) 1 strip Q4HR 02/26/25 16:00 Cancel Dextrose 50 ml UD PRN IV 02/26/25 14:15 Diagnostic Test (Pha) 1 strip IQ4HR 02/26/25 16:00 UNV Dextrose 50 ml UD PRN IV 02/26/25 16:00 UNV Insulin Human Regular Q6HR SC 03/02/25 12:00 03/09/25 23:41 2 UNITS Pantoprazole Sodium 40 mg BID IV 03/08/25 22:00 03/10/25 10:11 40 MG Daptomycin 400 mg/ Sodium Chloride 50 ml @ 100 mls/hr DAILY@1100 IV 03/08/25 15:30 03/10/25 10:26 100 MLS/HR Fat Emulsion Intravenous 100 ml/Sodium Acetate 60 meq/Sodium Phosphate 20 meq/ Potassium Acetate 60 meq/Potassium Phosphate 22 meq/ Magnesium Sulfate 10 meq/ Multivitamins 10 ml/Insulin Human Regular 5 units/ Amino Acids/ Dextrose/Purified Water 1,282.55 ml @ 53 mls/hr [id number] IV 03/09/25 22:00 03/10/25 21:59 03/09/25 21:45 53 MLS/HR Levothyroxine Sodium 50 mcg DAILY IV 03/09/25 10:00 03/10/25 10:12 50 MCG Hydromorphone HCl 0.5 mg Q4HPRN PRN IV 03/09/25 15:00 03/10/25 06:56 0.5 MG Fat Emulsion Intravenous 150 ml/Sodium Acetate 20 meq/Potassium Acetate 10 meq/ Potassium Phosphate 11 meq/ Magnesium Sulfate 10 meq/ Multivitamins 10 ml/Insulin Human Regular 3 units/ Amino Acids/ Dextrose/Purified Water 1,380.03 ml @ 57 mls/hr [id number] IV 03/10/25 22:00 03/11/25 21:59 Examination Pt is lying on bed General Appearance: Alert and Oriented x2 HEENT: Atraumatic, Mucous membranes moist/pink Respiratory: Clear to auscultation, Normal air movement, No added sounds Cardiovascular: Regular rate, Normal S1, Normal S2, No murmurs Abdominal: Active bowel sounds, Soft, no distention, no tenderness, colostomy bag in place and 1 CARMEN drain with greenish fluid Extremities: There is bilateral upper extremity edema, with seeping fluid Skin: No Significant rash, except past surgical scars Neuro: more alert and oriented Nurse was there as hearth feeder during examination laboratory and microbiology Laboratory Tests 03/10/25 04:00 Test 03/10/25 04:00 Range/Units Serum Glucose 98 74-106 mg/dL Microbiology Date/Time Source Procedure Growth Status 03/07/25 08:32 Blood Blood Culture - Final Staphylococcus epidermidis Complete 03/02/25 16:00 Urine - [place] Urine Culture - Final Complete 03/02/25 16:00 Aspirate Gram Stain - Final Resulted 03/02/25 16:00 Body Fluid Culture - Preliminary Enterococcus faecium - VRE Escherichia coli Resulted 02/25/25 11:48 Sputum Gram Stain - Final Complete 02/25/25 11:48 Sputum Respiratory Culture - Final Complete 01/13/25 17:10 Nose MRSA Screen - Final Complete Problem List/Assessment/Plan Problem List/Assessment/Plan Neurology # Chronic ischemic changes # Chronic Cortical atrophy - Head CT (01/29): Chronic microangiopathy and cortical atrophy. - reintubated on 02/25/25 during surgery # Extubated on 02/28 Cardiovascular # Septic shock secondary to hollow viscus perforation. # Paroxysmal atrial fibrillation with a second-degree hypercoagulable state currently NSR # Chronic diastolic heart failure with preserved EF 65% # Hypertension. - Echocardiogram (01/15): Normal LV EF (65%), mild LVH, mild LV diastolic dysfunction. - Chest X-ray: Bibasilar atelectasis. - ZEFERINO?DS?-VASc score >5 - cardiology on board - initially on Lovenox therapeutic but Dc'd due to low hemoglobin - Labetalol PRN Pulmonary # Acute hypoxic respiratory failure secondary to bilateral pleural effusion/pneumonia s/p re-intubation, status post extubation 02/28 - monitor with daily CXR - Sputum culture 01/29 Presumptive Zoe albicans and : negative - Reintubated on 02/25. - Chest Physiotherapy ongoing. - extubated today Gastrointestinal / Liver # Acute Bacterial Peritonitis due to small bowel perforation vs Perisplenic abscess. s/p multiple laparotomies # Transaminitis secondary to shock. # Anion gap metabolic acidosis due to bowel ischemia and lactic acidosis - CT abdomen/pelvis (02/16): Pneumoperitoneum, extraluminal contrast, perisplenic/subdiaphragmatic collection (7.1 1.1 cm). - Small bowel series (02/11): Normal. - Gastrografin (02/21): [place]-enteric fistula, contrast leak from distal transverse colon. Procedures: - First laparotomy (01/13): Resection of perforated small bowel, enteroenterostomy. - Second laparotomy (02/04): Resection near previous perforation, jejunal anastomosis. - Third laparotomy (02/25): Resection of distal ileum, end-to-end anastomosis, ileostomy. Cultures: - Peritoneal fluid (01/13): E. coli, Klebsiella pneumoniae (sensitive to meropenem). - Peritoneal fluid (02/17): E. coli, Stenotrophomonas maltophilia. - IR-guided pigtail drain placed; drained 50 cc purulent fluid. - CARMEN drains placed in 4 quadrants initially and now patient has only 1 CARMEN drain - Initially NPO, TPN initiated. - NG tube placed. - IV antimicrobials Daptomycin meropenem and micafungin - Initially patient is on Levofloxacin, Flagyl (02/03); Vancomycin and Meropenem (); Meropenem (); Vancomycin () then eventually switched to above antimicrobials - Started Daptomycin (03/08), Bactrim stopped (03/08) -Gastrografin scan(03/05) showed Contrast extravasation is seen in the proximal small bowel, possibly left sided jejunum near the surgical drain can be seen with a leak. -patient kept NPO Genitourinary / Kidney # ISRRAEL likely secondary to shock/volume depletion- resolved - Nephrology consulted for ISRRAEL. Endocrine # Hypothyroidism: TSH 42.29, low T4 # Type 2 diabetes mellitus: HbA1c 8.2%.- # Episodes of hypoglycemia. # Hypothyroidism - continuously monitoring blood glucose and on ISS - Started on Levothyroxine 50 daily Metabolic Hypokalemia. Hyperkalemia. Hyponatremia: D5W at 75 mL/hr per nephrology. Hypophosphatemia: given IV phosphate Nutrition: Severe protein malnutrition. Hematology # Acute on chronic anemia (hemodilution/post-surgical). # Severe thrombocytopenia, HIT # Acute DVT of right upper extremity. - Ultrasound (01/17): Partial thrombus in right internal jugular and cephalic veins. - hemoglobin today 6.9, transfused 1 more unit of PRBC 02/28 - Transfused total 8 units PRBC, 2 platelet units. - continuously monitor H&H - hold blood thinners Musculoskeletal / Skin # Rib fracture due to fall. Nutrition: TPN initiated. Bowel Regimen: As needed. GI Prophylaxis: Pantoprazole bid DVT Prophylaxis: Lovenox (held/ Dc'd due to low hemoglobin). Lines / Tubes / Devices Airway: Intubated on 01/14, extubated on 02/07, reintubated on 02/25 extubated 02/28 Vascular Access: PICC line placed in right upper thigh on 01/26. Drips: Dc'd pressors and sedatives. Urinary: Leach catheter placed on 01/14, exchanged on 02/14. CARMEN drains in 1 quadrant. Goals of care addressed with patient's family members for more than 29 minutes: Full code status Care plan updated to the patient family Chris (son) on bedside and addressed all concerns Critical care time spent more than 53 minutes excluding procedures and including discussion with the family Case discussed with Dr. Galeana and RN Plan discussed with: Patient, Son Dietary Evaluation Review Comments: Nutrition Recommendation: 1) TPN to meet at least 75% estimated needs within 7 days 2) Monitor NPO status, lab values, wt trend, I/O Expected Outcomes/Goals: To meet >75% estimated needs Lab values to improve Fu 2-3 days Is there a minimum of two crit: Yes CC Plasma Assessment Blood Product Administration S: [id number] Date of Service: Mar 10, 2025 Billing Provider: ZBIGNIEW SELF MD Common Visit Codes: [id number] CARE 30-74 MIN ASHELY TREJO RESIDENT Mar 10, 2025 16:29 ZBIGNIEW SELF MD Mar 12, 2025 11:40
--- NOTE | 2025-03-11 11:41 | DVHPN2 ---
Consult Progress Note Date Seen: Mar 10, 2025 Subjective Patient reports: Feels better (on 4 of levohed, no fevers overnight) Objective vital signs Vital Sign Date Time Temp Pulse Resp B/P (MAP) Pulse Ox O2 Delivery O2 Flow Rate FiO2 03/11/25 07:48 99 Nasal Cannula 1.0 03/11/25 07:48 24 03/11/25 06:00 112 17 124/50 (74) 03/11/25 04:00 98.0 98.0 Total Intake and Output 03/10/25 03/10/25 03/11/25 15:00 23:00 07:00 Intake Total 624 ml 482 ml 399 ml Output Total 1420 ml 360 ml Balance 624 ml -938 ml 39 ml medications Current Medications Medications Dose Ordered Sig/Isaura Route Start Time Stop Time Status Last Admin Dose Admin Cefazolin Sodium 50 ml @ 100 mls/hr Q8HR IV 01/13/25 14:00 UNV Vasopressin 20 units/Sodium Chloride 100 ml @ 9 mls/hr Q11H7M IV 01/13/25 18:45 UNV Potassium Chloride 100 ml @ 50 mls/hr Q2H IV 01/16/25 12:45 01/16/25 18:44 UNV Vancomycin HCl 100 ml @ 100 mls/hr DAILY@1200 IV 01/20/25 12:00 UNV Amino Acids 0 ml @ 0 mls/hr PER PHARMACY IV 02/13/25 10:45 Ondansetron HCl 4 mg Q4HPRN PRN IV 02/21/25 09:30 02/24/25 10:45 4 MG Micafungin Sodium 100 mg/Sodium Chloride 100 ml @ 100 mls/hr DAILY IV 02/22/25 10:00 03/10/25 10:12 100 MLS/HR Multi-Ingredient Ointment 1 applic DAILY TOP 02/23/25 10:00 03/10/25 10:12 1 APPLIC Acetaminophen 650 mg Q4HP PRN PO 02/24/25 02:00 Lidocaine 1 patch DAILY@0230 TOP 02/24/25 02:30 03/11/25 01:29 1 PATCH Norepinephrine Bitartrate 250 ml @ 3.75 mls/hr Q24H IV 02/25/25 11:45 02/26/25 11:51 7.5 MLS/HR Meropenem 50 ml @ 17 mls/hr Q12HR@0800,2000 IV 02/26/25 08:00 03/10/25 19:32 17 MLS/HR Acetaminophen 650 mg Q6HP PRN CO 02/26/25 09:00 Diagnostic Test (Pha) 1 strip Q4HR 02/26/25 16:00 Cancel Dextrose 50 ml UD PRN IV 02/26/25 14:15 Diagnostic Test (Pha) 1 strip IQ4HR 02/26/25 16:00 UNV Dextrose 50 ml UD PRN IV 02/26/25 16:00 UNV Insulin Human Regular Q6HR SC 03/02/25 12:00 03/11/25 06:34 2 UNITS Pantoprazole Sodium 40 mg BID IV 03/08/25 22:00 03/10/25 21:03 40 MG Daptomycin 400 mg/ Sodium Chloride 50 ml @ 100 mls/hr DAILY@1100 IV 03/08/25 15:30 03/10/25 10:26 100 MLS/HR Levothyroxine Sodium 50 mcg DAILY IV 03/09/25 10:00 03/10/25 10:12 50 MCG Hydromorphone HCl 0.5 mg Q4HPRN PRN IV 03/09/25 15:00 03/11/25 04:34 0.5 MG Fat Emulsion Intravenous 150 ml/Sodium Acetate 20 meq/Potassium Acetate 10 meq/ Potassium Phosphate 11 meq/ Magnesium Sulfate 10 meq/ Multivitamins 10 ml/Insulin Human Regular 3 units/ Amino Acids/ Dextrose/Purified Water 1,380.03 ml @ 57 mls/hr [id number] IV 03/10/25 22:00 03/11/25 21:59 03/10/25 21:15 57 MLS/HR laboratory and microbiology Laboratory Tests 03/11/25 05:19 Test 03/11/25 05:19 Range/Units Serum Glucose 137 H 74-106 mg/dL Problem List/Assessment/Plan Problem List/Assessment/Plan ASSESSMENT AND PLAN: ID Problem List: -Perforated small bowel with persistent leak; intra-abdominal sepsis; status post multiple exploratory laparotomies with adhesiolysis and enteroenterostomies; CARMEN drains in place -Septic shock; acute hypoxic respiratory failure -Acute kidney injury (ISRRAEL) with acute tubular necrosis (ATN) improved -Transaminitis likely ischemic hepatitis improving -Thrombocytopenia (worsened ~01/19 while on vancomycin/fluconazole) -Diabetes mellitus -On apixaban (Eliquis) for last 2 weeks indication unclear -Past surgical history: section; hernia repair Assessment This is a 10 y.o. female with diabetes and prior and hernia repair, who presented with 4 days of sharp lower abdominal pain. Initial ED evaluation notable for CT A/P demonstrating free intraperitoneal air and small bowel inflammatory changes concerning for perforated viscus with mild ascites and mesenteric stranding. She underwent an exploratory laparotomy on 01/13 with lysis of adhesions, small bowel enteroenterostomy, and placement of two Mendel- Steele drains; peritoneal cultures at that time grew Escherichia coli and Klebsiella pneumoniae (both ceftriaxone susceptible). Postoperatively she required norepinephrine (Levophed) and broad-spectrum antibiotics. Course complicated by recurrent sepsis and suspected enterocutaneous/peritoneal contamination, requiring re-exploration on 02/03 with evacuation of copious intra-abdominal infection/abscesses and revision of anastomosis; intraoperative cultures reportedly not obtained. A drain sample dated 01/28 grew Stenotrophomonas ([id number] susceptible). Ongoing respiratory issues prompted empiric vancomycin, later discontinued when sputum grew only Zoe albicans. A third operation on 02/25 for persistent feculent leakage and peritonitis showed a distal ileal perforation proximal to adhesional obstruction; this was resected with primary anastomosis, and further adhesiolysis performed. Upper GI series on 03/04 demonstrates contrast extravasation from proximal small bowel (likely left jejunum) near a surgical drain, consistent with a persistent leak that appears to be adequately drained clinically. She has been afebrile since 03/03, is extubated to 2 L NC, hemodynamically supported on low-dose norepinephrine, and clinically stable abdominally (nontender). LFTs that had peaked during ischemic episodes are improving. Renal function has improved from admission. Cultures/culture interpretation: Earlier peritoneal cultures with E. coli and Klebsiella; drain fluid with Stenotrophomonas (01/28) and subsequent peritoneal/aspirate samples showing E. coli and vancomycin-resistant Enterococcus (VRE) on 03/02; one of four blood culture bottles (03/07) positive for Staphylococcus epidermidis, felt to be contaminant. Given the persistent bowel leak with external drainage and the timing/source of cultures, current drain cultures are likely colonization and may not represent true invasive pathogens. Antimicrobial course (per transcript): initial piperacillin-tazobactam (Zosyn) + vancomycin through 01/19; vancomycin stopped for suspected contribution to thrombocytopenia; courses including meropenem and micafungin through 01/31; then levofloxacin + metronidazole + micafungin through 02/03; meropenem continued thereafter with vancomycin re-trial for presumed pneumonia (later stopped by 02/21 after Zoe-only sputum); micafungin added/continued; trimethoprim- sulfamethoxazole (Bactrim) started 02/21 for Stenotrophomonas coverage; transcript also notes meropenem and rifampin continued until today. Plan: -Intra-abdominal sepsis with persistent small bowel leak: -Source control: continue to ensure CARMEN drains are functioning; avoid routine re- culturing from drains as results likely represent colonization and may mislead management. -Imaging monitoring: repeat upper GI series every few weeks to confirm containment and assess for healing of the leak. -Antibiotics: -De-escalate broad coverage toward enteric pathogens (E. coli/Klebsiella) and away from agents targeting colonizers. -No ongoing coverage for Stenotrophomonas is required at this time. -No coverage for VRE is recommended; discontinue daptomycin if in use. -Continue piperacillin-tazobactam (Zosyn). -Antifungal: continue micafungin. Reassess need periodically. -Duration: continue until leak is resolved or clearly contained with clinical improvement. -Transition to oral therapy when patient can tolerate and when clinically appropriate. -Hemodynamics: continue norepinephrine (Levophed) as needed; ongoing wean as tolerated. -Respiratory: extubated to 2 L NC; supportive care; chest radiograph with persistent interstitial opacities, left basilar consolidation, small pleural effusions monitor clinically. -Renal: ISRRAEL/ATN improved (Cr now ~0.99); continue renal dosing of antimicrobials as indicated; monitor BMP. -Hepatic: transaminases improving from prior ischemic hepatitis; trend LFTs. -Hematology: platelet count currently ~118 K; monitor CBC. -Anticoagulation: on apixaban (Eliquis) for unclear indication per history; reconcile indication and risk/benefit with primary/surgical teams in context of recent surgeries/leak. -Nutrition/NG: continue NG suction per surgery; nutrition per surgical/ICU teams. -Lines/Drains: maintain CARMEN drains; monitor output and character; avoid routine drain cultures. -Follow-up: ID will continue to follow clinically; adjust therapy as new data emerge. Authorized and Performed by: sheron pedraza Total critical care time: Approximately 66 minutes Due to a high probability of clinically significant, life threatening deterioration, the patient required my highest level of preparedness to intervene emergently and I personally spent this critical care time directly and personally managing the patient. This critical care time included obtaining a history; examining the patient; pulse oximetry; ordering and review of studies; arranging urgent treatment with development of a management plan; evaluation of patient's response to treatment; frequent reassessment; and, discussions with other providers. This critical care time was performed to assess and manage the high probability of imminent, life-threatening deterioration that could result in multi-organ failure. It was exclusive of separately billable procedures and treating other patients and teaching time. Isolation Precautions: standard \*Assessment and plan were discussed with the patient as written above (when able/appropriate). \*Plan is subject to change pending incorporation of new incoming information/diagnostics. Updates may be added as addendum at the bottom (OR TOP) of this note. Thank you for the consult. ID will continue to follow. Please contact Infectious Disease for any questions or concerns. Electronically signed by: Sheron Pedraza MD, 03/11/2025 \ Physical Exam: General: NAD Neck: Supple. No masses. HEENT: PERRL. Normal lids and conjunctiva. Moist mucous membranes. Oropharynx without lesions, exudates or excessive erythema. Normal appearance of the external aspects of the nose and ears. Heart: Regular rhythm, normal rate. No murmur. No lower extremity edema. Lungs: Normal respiratory effort. Clear to auscultation bilaterally. No wheezes. No crackles. Abdomen: Soft. Non-tender. Non-distended. No masses or abdominal hernia. Msk: No digital cyanosis. Normal strength and tone in all 4 limbs Skin: Warm and dry, no rashes. Neuro: Alert. No facial droop or slurred speech. Extra-ocular movements intact. Sensation intact to soft touch in all 4 limbs. Psych: Appropriate mood. Full affect. Oriented to person, place, time, and situation. Plan discussed with: Patient Dietary Evaluation Review Comments: Nutrition Recommendation: 1) TPN to meet at least 75% estimated needs within 7 days 2) Monitor NPO status, lab values, wt trend, I/O Expected Outcomes/Goals: To meet >75% estimated needs Lab values to improve Fu 2-3 days Is there a minimum of two crit: Yes CC Plasma Assessment Blood Product Administration S: [id number] SHERON PEDRAZA MD Mar 11, 2025 08:52
--- NOTE | 2025-03-11 12:15 | DVHPN2 ---
Subjective Date Seen: Mar 11, 2025 Post op day Post op day: 0 Patient reports: Feels better (on 4 of levohed, no fevers overnight) Objective Vitals Vital Sign Date Time Temp Pulse Resp B/P (MAP) Pulse Ox O2 Delivery O2 Flow Rate FiO2 03/11/25 11:45 122/60 03/11/25 10:06 107 16 03/11/25 09:40 100 Nasal Cannula* 1 24 03/11/25 08:00 98.2 98.2 Total Intake and Output 03/10/25 03/10/25 03/11/25 15:00 23:00 07:00 Intake Total 624 ml 482 ml 456 ml Output Total 1420 ml 360 ml Balance 624 ml -938 ml 96 ml Medications Current Medications Medications Dose Ordered Sig/Isaura Route Start Time Stop Time Status Last Admin Dose Admin Cefazolin Sodium 50 ml @ 100 mls/hr Q8HR IV 01/13/25 14:00 UNV Vasopressin 20 units/Sodium Chloride 100 ml @ 9 mls/hr Q11H7M IV 01/13/25 18:45 UNV Potassium Chloride 100 ml @ 50 mls/hr Q2H IV 01/16/25 12:45 01/16/25 18:44 UNV Vancomycin HCl 100 ml @ 100 mls/hr DAILY@1200 IV 01/20/25 12:00 UNV Amino Acids 0 ml @ 0 mls/hr PER PHARMACY IV 02/13/25 10:45 Ondansetron HCl 4 mg Q4HPRN PRN IV 02/21/25 09:30 02/24/25 10:45 4 MG Micafungin Sodium 100 mg/Sodium Chloride 100 ml @ 100 mls/hr DAILY IV 02/22/25 10:00 03/11/25 10:14 100 MLS/HR Multi-Ingredient Ointment 1 applic DAILY TOP 02/23/25 10:00 03/11/25 10:38 1 APPLIC Lidocaine 1 patch DAILY@0230 TOP 02/24/25 02:30 03/11/25 01:29 1 PATCH Norepinephrine Bitartrate 250 ml @ 3.75 mls/hr Q24H IV 02/25/25 11:45 02/26/25 11:51 7.5 MLS/HR Diagnostic Test (Pha) 1 strip Q4HR 02/26/25 16:00 Cancel Dextrose 50 ml UD PRN IV 02/26/25 14:15 Diagnostic Test (Pha) 1 strip IQ4HR 02/26/25 16:00 UNV Dextrose 50 ml UD PRN IV 02/26/25 16:00 UNV Insulin Human Regular Q6HR SC 03/02/25 12:00 03/11/25 11:53 2 UNITS Pantoprazole Sodium 40 mg BID IV 03/08/25 22:00 03/11/25 10:08 40 MG Levothyroxine Sodium 50 mcg DAILY IV 03/09/25 10:00 03/11/25 10:08 50 MCG Hydromorphone HCl 0.5 mg Q4HPRN PRN IV 03/09/25 15:00 03/11/25 09:27 0.5 MG Fat Emulsion Intravenous 150 ml/Sodium Acetate 20 meq/Potassium Acetate 10 meq/ Potassium Phosphate 11 meq/ Magnesium Sulfate 10 meq/ Multivitamins 10 ml/Insulin Human Regular 3 units/ Amino Acids/ Dextrose/Purified Water 1,380.03 ml @ 57 mls/hr [id number] IV 03/10/25 22:00 03/11/25 21:59 03/10/25 21:15 57 MLS/HR Piperacillin Sod/ Tazobactam Sod 100 ml @ 25 mls/hr Q8HR IV 03/11/25 14:00 Fat Emulsion Intravenous 150 ml/Sodium Acetate 20 meq/Potassium Phosphate 22 meq/ Multivitamins 10 ml/Insulin Human Regular 5 units/ Amino Acids/ Dextrose/Purified Water 1,375.05 ml @ 57 mls/hr Q24H8M IV 03/11/25 22:00 03/12/25 21:59 Labs and Microbiology Laboratory Tests 03/11/25 05:19 Test 03/11/25 05:19 Range/Units Serum Glucose 137 H 74-106 mg/dL Ass/Plan Labs and/or images reviewed: Labs reviewed by me, Image(s) reviewed by me Problem List ASSESSMENT AND PLAN: ID Problem List: -Perforated small bowel with persistent leak; intra-abdominal sepsis; status post multiple exploratory laparotomies with adhesiolysis and enteroenterostomies; CARMEN drains in place -Septic shock; acute hypoxic respiratory failure -Acute kidney injury (ISRRAEL) with acute tubular necrosis (ATN) improved -Transaminitis likely ischemic hepatitis improving -Thrombocytopenia (worsened ~01/19 while on vancomycin/fluconazole) -Diabetes mellitus -On apixaban (Eliquis) for last 2 weeks indication unclear -Past surgical history: section; hernia repair Assessment This is a 10 y.o. female with diabetes and prior and hernia repair, who presented with 4 days of sharp lower abdominal pain. Initial ED evaluation notable for CT A/P demonstrating free intraperitoneal air and small bowel inflammatory changes concerning for perforated viscus with mild ascites and mesenteric stranding. She underwent an exploratory laparotomy on 01/13 with lysis of adhesions, small bowel enteroenterostomy, and placement of two Mendel- Steele drains; peritoneal cultures at that time grew Escherichia coli and Klebsiella pneumoniae (both ceftriaxone susceptible). Postoperatively she required norepinephrine (Levophed) and broad-spectrum antibiotics. Course complicated by recurrent sepsis and suspected enterocutaneous/peritoneal contamination, requiring re-exploration on 02/03 with evacuation of copious intra-abdominal infection/abscesses and revision of anastomosis; intraoperative cultures reportedly not obtained. A drain sample dated 01/28 grew Stenotrophomonas (TMP-SMX susceptible). Ongoing respiratory issues prompted empiric vancomycin, later discontinued when sputum grew only Zoe albicans. A third operation on 02/25 for persistent feculent leakage and peritonitis showed a distal ileal perforation proximal to adhesional obstruction; this was resected with primary anastomosis, and further adhesiolysis performed. Upper GI series on 03/04 demonstrates contrast extravasation from proximal small bowel (likely left jejunum) near a surgical drain, consistent with a persistent leak that appears to be adequately drained clinically. She has been afebrile since 03/03, is extubated to 2 L NC, hemodynamically supported on low-dose norepinephrine, and clinically stable abdominally (nontender). LFTs that had peaked during ischemic episodes are improving. Renal function has improved from admission. Cultures/culture interpretation: Earlier peritoneal cultures with E. coli and Klebsiella; drain fluid with Stenotrophomonas (01/28) and subsequent peritoneal/aspirate samples showing E. coli and vancomycin-resistant Enterococcus (VRE) on 03/02; one of four blood culture bottles (03/07) positive for Staphylococcus epidermidis, felt to be contaminant. Given the persistent bowel leak with external drainage and the timing/source of cultures, current drain cultures are likely colonization and may not represent true invasive pathogens. Antimicrobial course (per transcript): initial piperacillin-tazobactam (Zosyn) + vancomycin through 01/19; vancomycin stopped for suspected contribution to thrombocytopenia; courses including meropenem and micafungin through 01/31; then levofloxacin + metronidazole + micafungin through 02/03; meropenem continued thereafter with vancomycin re-trial for presumed pneumonia (later stopped by 02/21 after Zoe-only sputum); micafungin added/continued; trimethoprim- sulfamethoxazole (Bactrim) started 02/21 for Stenotrophomonas coverage; transcript also notes meropenem and rifampin continued until today. Plan: -Intra-abdominal sepsis with persistent small bowel leak: -Source control: continue to ensure CARMEN drains are functioning; avoid routine re- culturing from drains as results likely represent colonization and may mislead management. -Imaging monitoring: repeat upper GI series every few weeks to confirm containment and assess for healing of the leak. -Antibiotics: -De-escalate broad coverage toward enteric pathogens (E. coli/Klebsiella) and away from agents targeting colonizers. -No ongoing coverage for Stenotrophomonas is required at this time. -No coverage for VRE is recommended; discontinue daptomycin if in use. -Continue piperacillin-tazobactam (Zosyn). -Antifungal: continue micafungin. Reassess need periodically. -Duration: continue until leak is resolved or clearly contained with clinical improvement. -Transition to oral therapy when patient can tolerate and when clinically appropriate. -Hemodynamics: continue norepinephrine (Levophed) as needed; ongoing wean as tolerated. -Respiratory: extubated to 2 L NC; supportive care; chest radiograph with persistent interstitial opacities, left basilar consolidation, small pleural effusions monitor clinically. -Renal: ISRRAEL/ATN improved (Cr now ~0.99); continue renal dosing of antimicrobials as indicated; monitor BMP. -Hepatic: transaminases improving from prior ischemic hepatitis; trend LFTs. -Hematology: platelet count currently ~118 K; monitor CBC. -Anticoagulation: on apixaban (Eliquis) for unclear indication per history; reconcile indication and risk/benefit with primary/surgical teams in context of recent surgeries/leak. -Nutrition/NG: continue NG suction per surgery; nutrition per surgical/ICU teams. -Lines/Drains: maintain CARMEN drains; monitor output and character; avoid routine drain cultures. -Follow-up: ID will continue to follow clinically; adjust therapy as new data emerge. Authorized and Performed by: sheron sauceda Total critical care time: Approximately 66 minutes Due to a high probability of clinically significant, life threatening deterioration, the patient required my highest level of preparedness to intervene emergently and I personally spent this critical care time directly and personally managing the patient. This critical care time included obtaining a history; examining the patient; pulse oximetry; ordering and review of studies; arranging urgent treatment with development of a management plan; evaluation of patient's response to treatment; frequent reassessment; and, discussions with other providers. This critical care time was performed to assess and manage the high probability of imminent, life-threatening deterioration that could result in multi-organ failure. It was exclusive of separately billable procedures and treating other patients and teaching time. Isolation Precautions: standard \*Assessment and plan were discussed with the patient as written above (when able/appropriate). \*Plan is subject to change pending incorporation of new incoming information/diagnostics. Updates may be added as addendum at the bottom (OR TOP) of this note. Thank you for the consult. ID will continue to follow. Please contact Infectious Disease for any questions or concerns. Electronically signed by: Sheron Sauceda MD, 03/11/2025 \ Physical Exam: General: NAD Neck: Supple. No masses. HEENT: PERRL. Normal lids and conjunctiva. Moist mucous membranes. Oropharynx without lesions, exudates or excessive erythema. Normal appearance of the external aspects of the nose and ears. Heart: Regular rhythm, normal rate. No murmur. No lower extremity edema. Lungs: Normal respiratory effort. Clear to auscultation bilaterally. No wheezes. No crackles. Abdomen: Soft. Non-tender. Non-distended. No masses or abdominal hernia. Msk: No digital cyanosis. Normal strength and tone in all 4 limbs Skin: Warm and dry, no rashes. Neuro: Alert. No facial droop or slurred speech. Extra-ocular movements intact. Sensation intact to soft touch in all 4 limbs. Psych: Appropriate mood. Full affect. Oriented to person, place, time, and situation. Assessment/Plan 01/19/25 s/p Exploratory laparotomy, lysis of adhesions, extensive lavage, resection of perforated small bowel, enteroenterostomy. unchanged from yesterday abdomen soft, non distended, CARMEN drainage clear serous, no bowel activity, febrile, urine output ok, continues with thrombocytopenia, Plan: continue current treatment discussed with Dr. Christy 01/21/2025 s/p Exploratory laparotomy, lysis of adhesions, extensive lavage, resection of perforated small bowel, enteroenterostomy. abdomen soft, non distended, CARMEN drainage clear serous, no bowel activity, urine output ok, platelet count improved albumin low off pressors blood culture , gram negative rods Plan: continue meropenem antibiotics albumin x3 discussed with Dr. Christy 01/22/2025 s/p Exploratory laparotomy, lysis of adhesions, extensive lavage, resection of perforated small bowel, enteroenterostomy. abdomen soft, non distended, CARMEN drainage clear serous, no bowel activity, urine output ok, platelet count improved blood culture , gram positive rods labs reviewed Plan: continue with current treatment discussed with Dr. Christy 01/24/2025 s/p Exploratory laparotomy, lysis of adhesions, extensive lavage, resection of perforated small bowel, enteroenterostomy. abdomen soft, non distended, CARMEN drainage clear serous, no bowel activity, urine output ok, platelet count improved labs reviewed Plan: small bowel series discussed with Dr. Christy 01/31/2025 s/p Exploratory laparotomy, lysis of adhesions, extensive lavage, resection of perforated small bowel, enteroenterostomy. abdomen soft, non distended, CARMEN drainage brownish, urine output ok labs reviewed Plan: small bowel series on Friday discussed with Dr. Christy 02/06/2025 Surgery: Exploratory laparotomy, lysis of adhesions, evacuation of pelvic and abdominal infection, resection of proximal jejunum, ileostomy, and jejunostomy. Post-Op Day: 2 Notes and labs were reviewed. Hemoglobin was 6.6 this morning, and a blood transfusion is currently being administered. Physical Exam: - Currently intubated and receiving fentanyl without other sedation. - Abdomen is soft and nondistended. - Minimal serosanguineous fluid is noted in the CARMEN drains. - The wound VAC has minimal sanguineous output. The wound is clean. Plan: - Continue current treatment. - Discussed case with Dr. Christy no changes to the plan of care at this time. 02/26/25 labs reviewed patient intubated , sedated abdomen soft, non distended wound vac stoma ok drain serous fluid Plan: continue current treatment 02/28/25 - Patient is intubated and responds to stimuli. no changes from yesterday : Abdomen is soft and non-distended. Stoma is pink. The wound is clean, dry, and intact with a wound vac in place. CARMEN drains have serous fluid output. - Investigations with results: Hemoglobin is low. Plan: - Treatment planned: Receiving one unit of packed red blood cells. CPAP today. Continue current treatment plan 03/10/2025 patient states feeling well : Abdomen is soft and non-distended. fecal matter in stoma bag . The wound is clean, dry, and intact with a wound vac in place. CARMEN drains have brown fluid. -WBC normal Plan: continue current treatment 03/11/25 patient states feeling well : Abdomen is soft and non-distended. fecal matter in stoma bag . The wound is clean, dry, and intact with a wound vac in place. CARMEN drain brown fluid. output over night 60cc -WBC normal Plan: continue current treatment Prognosis: Good, Poor Plan discussed with patient, Dr. Christy Visit Coding Surgery Date of Service if different f: Mar 11, 2025 Billing Provider: MELVA CHRISTY MD Surgery Visit Codes: [id number] INP/OBS CARE(HIGH) [employer] Mar 11, 2025 12:15
[2025-03-11] MEDS: PIPERACILLIN-TAZOB 3.375GM 100 ML IV SCH (13:31)
--- NOTE | 2025-03-11 13:53 | DVHPNRES ---
Progress Note Date Seen: Mar 11, 2025 Resident Creating Document: ASHLEY TREJO RESIDENT Has the PT tested + for MRSA If YES, has PT been informed?: No Medical Necessity Reason Pt with a Central, PICC or Fol: Yes The following are medically ne: PICC Line, Leach Catheter Reason for leach catheter: Strict I&O Subjective Review of Systems This is a 80-year-old lady with past medical history of hypertension, AFib (on Eliquis), diabetes type 2, CKD, came to the hospital due to abdominal pain, and constipation. Admitted on 01/13/2025. Found to have peritonitis due to bowel perforation, and underwent emergent laparotomy with subsequent resection of perforated small bowel and enteroenterostomy. Due to abnormal CARMEN drainage, second exploratory laparotomy performed on 02/04 and found to have perforation near to previous perforation area, underwent resection of area with subsequent anastomosis of proximal jejunal loops. Patient seen and examined at bed side. Continue NPO. Patient is on 2 L oxygen, complains of 5/10 back pain. Patient is to continue PT, according to surgery patient might go to another laparotomy surgery. Contrast extravasation seen in the proximal small bowel. Stopped Protonix Drip. No other new complaint. Started on daptomycin. Today patient is a little confused might be due to delirium. 100 mL drainage from NG tube, 2320 mL drainage from CARMEN drain. Surgery following, Mentioned conservative management. Objective vital signs Vital Sign Date Time Temp Pulse Resp B/P (MAP) Pulse Ox O2 Delivery O2 Flow Rate FiO2 03/11/25 12:00 105 11 115/65 (82) 100 03/11/25 12:00 96.9 96.9 03/11/25 11:44 Nasal Cannula* 1 24 Total Intake and Output 03/10/25 03/10/25 03/11/25 15:00 23:00 07:00 Intake Total 624 ml 482 ml 456 ml Output Total 1420 ml 360 ml Balance 624 ml -938 ml 96 ml medications Current Medications Medications Dose Ordered Sig/Isaura Route Start Time Stop Time Status Last Admin Dose Admin Cefazolin Sodium 50 ml @ 100 mls/hr Q8HR IV 01/13/25 14:00 UNV Vasopressin 20 units/Sodium Chloride 100 ml @ 9 mls/hr Q11H7M IV 01/13/25 18:45 UNV Potassium Chloride 100 ml @ 50 mls/hr Q2H IV 01/16/25 12:45 01/16/25 18:44 UNV Vancomycin HCl 100 ml @ 100 mls/hr DAILY@1200 IV 01/20/25 12:00 UNV Amino Acids 0 ml @ 0 mls/hr PER PHARMACY IV 02/13/25 10:45 Ondansetron HCl 4 mg Q4HPRN PRN IV 02/21/25 09:30 02/24/25 10:45 4 MG Micafungin Sodium 100 mg/Sodium Chloride 100 ml @ 100 mls/hr DAILY IV 02/22/25 10:00 03/11/25 10:14 100 MLS/HR Multi-Ingredient Ointment 1 applic DAILY TOP 02/23/25 10:00 03/11/25 10:38 1 APPLIC Lidocaine 1 patch DAILY@0230 TOP 02/24/25 02:30 03/11/25 01:29 1 PATCH Norepinephrine Bitartrate 250 ml @ 3.75 mls/hr Q24H IV 02/25/25 11:45 02/26/25 11:51 7.5 MLS/HR Diagnostic Test (Pha) 1 strip Q4HR 02/26/25 16:00 Cancel Dextrose 50 ml UD PRN IV 02/26/25 14:15 Diagnostic Test (Pha) 1 strip IQ4HR 02/26/25 16:00 UNV Dextrose 50 ml UD PRN IV 02/26/25 16:00 UNV Insulin Human Regular Q6HR SC 03/02/25 12:00 03/11/25 11:53 2 UNITS Pantoprazole Sodium 40 mg BID IV 03/08/25 22:00 03/11/25 10:08 40 MG Levothyroxine Sodium 50 mcg DAILY IV 03/09/25 10:00 03/11/25 10:08 50 MCG Hydromorphone HCl 0.5 mg Q4HPRN PRN IV 03/09/25 15:00 03/11/25 09:27 0.5 MG Fat Emulsion Intravenous 150 ml/Sodium Acetate 20 meq/Potassium Acetate 10 meq/ Potassium Phosphate 11 meq/ Magnesium Sulfate 10 meq/ Multivitamins 10 ml/Insulin Human Regular 3 units/ Amino Acids/ Dextrose/Purified Water 1,380.03 ml @ 57 mls/hr [id number] IV 03/10/25 22:00 03/11/25 21:59 03/10/25 21:15 57 MLS/HR Piperacillin Sod/ Tazobactam Sod 100 ml @ 25 mls/hr Q8HR IV 03/11/25 14:00 03/11/25 13:31 25 MLS/HR Fat Emulsion Intravenous 150 ml/Sodium Acetate 20 meq/Potassium Phosphate 22 meq/ Multivitamins 10 ml/Insulin Human Regular 5 units/ Amino Acids/ Dextrose/Purified Water 1,375.05 ml @ 57 mls/hr Q24H8M IV 03/11/25 22:00 03/12/25 21:59 Examination Pt is lying on bed General Appearance: Alert and Oriented x2 HEENT: Atraumatic, Mucous membranes moist/pink Respiratory: Clear to auscultation, Normal air movement, No added sounds Cardiovascular: Regular rate, Normal S1, Normal S2, No murmurs Abdominal: Active bowel sounds, Soft, no distention, no tenderness, colostomy bag in place and 1 CARMEN drain with greenish fluid Extremities: There is bilateral upper extremity edema, with seeping fluid Skin: No Significant rash, except past surgical scars Neuro: more alert and oriented Nurse was there as blast furnace checker during examination laboratory and microbiology Laboratory Tests 03/11/25 05:19 Test 03/11/25 05:19 Range/Units Serum Glucose 137 H 74-106 mg/dL Microbiology Date/Time Source Procedure Growth Status 03/07/25 08:32 Blood Blood Culture - Final Staphylococcus epidermidis Complete 03/02/25 16:00 Urine - [place] Urine Culture - Final Complete 03/02/25 16:00 Aspirate Gram Stain - Final Resulted 03/02/25 16:00 Body Fluid Culture - Preliminary Enterococcus faecium - VRE Escherichia coli Resulted 02/25/25 11:48 Sputum Gram Stain - Final Complete 02/25/25 11:48 Sputum Respiratory Culture - Final Complete 01/13/25 17:10 Nose MRSA Screen - Final Complete Problem List/Assessment/Plan Problem List/Assessment/Plan Neurology # Chronic ischemic changes # Chronic Cortical atrophy - Head CT (01/29): Chronic microangiopathy and cortical atrophy. - reintubated on 02/25/25 during surgery # Extubated on 02/28 Cardiovascular # Septic shock secondary to hollow viscus perforation. # Paroxysmal atrial fibrillation with a second-degree hypercoagulable state currently NSR # Chronic diastolic heart failure with preserved EF 65% # Hypertension. - Echocardiogram (01/15): Normal LV EF (65%), mild LVH, mild LV diastolic dysfunction. - Chest X-ray: Bibasilar atelectasis. - ZEFERINO?DS?-VASc score >5 - cardiology on board - initially on Lovenox therapeutic but Dc'd due to low hemoglobin - Labetalol PRN Pulmonary # Acute hypoxic respiratory failure secondary to bilateral pleural effusion/pneumonia s/p re-intubation, status post extubation 02/28 - monitor with daily CXR - Sputum culture 01/29 Presumptive Zoe albicans and : negative - Reintubated on 02/25. - Chest Physiotherapy ongoing. - extubated today Gastrointestinal / Liver # Acute Bacterial Peritonitis due to small bowel perforation vs Perisplenic abscess. s/p multiple laparotomies # Transaminitis secondary to shock. # Anion gap metabolic acidosis due to bowel ischemia and lactic acidosis - CT abdomen/pelvis (02/16): Pneumoperitoneum, extraluminal contrast, perisplenic/subdiaphragmatic collection (7.1 1.1 cm). - Small bowel series (02/11): Normal. 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 Procedures: - First laparotomy (01/13): Resection of perforated small bowel, enteroenterostomy. - Second laparotomy (02/04): Resection near previous perforation, jejunal anastomosis. - Third laparotomy (02/25): Resection of distal ileum, end-to-end anastomosis, ileostomy. Cultures: - Peritoneal fluid (01/13): E. coli, Klebsiella pneumoniae (sensitive to meropenem). - Peritoneal fluid (02/17): E. coli, Stenotrophomonas maltophilia. - IR-guided pigtail drain placed; drained 50 cc purulent fluid. - CARMEN drains placed in 4 quadrants initially and now patient has only 1 CARMEN drain - Initially NPO, TPN initiated. - NG tube placed. - IV antimicrobials Daptomycin meropenem and micafungin - Initially patient is on Levofloxacin, Flagyl (02/03); Vancomycin and Meropenem (); Meropenem (); Vancomycin () then eventually switched to above antimicrobials - Started Daptomycin (03/08), Bactrim stopped (03/08) -Gastrografin scan(03/05) showed Contrast extravasation is seen in the proximal small bowel, possibly left sided jejunum near the surgical drain can be seen with a leak. -patient kept NPO Genitourinary / Kidney # ISRRAEL likely secondary to shock/volume depletion- resolved - Nephrology consulted for ISRRAEL. Endocrine # Hypothyroidism: TSH 42.29, low T4 # Type 2 diabetes mellitus: HbA1c 8.2%.- # Episodes of hypoglycemia. # Hypothyroidism - continuously monitoring blood glucose and on ISS - Started on Levothyroxine 50 daily Metabolic Hypokalemia. Hyperkalemia. Hyponatremia: D5W at 75 mL/hr per nephrology. Hypophosphatemia: given IV phosphate Nutrition: Severe protein malnutrition. Hematology # Acute on chronic anemia (hemodilution/post-surgical). # Severe thrombocytopenia, HIT # Acute DVT of right upper extremity. - Ultrasound (01/17): Partial thrombus in right internal jugular and cephalic veins. - hemoglobin today 6.9, transfused 1 more unit of PRBC 02/28 - Transfused total 8 units PRBC, 2 platelet units. - continuously monitor H&H - hold blood thinners Musculoskeletal / Skin # Rib fracture due to fall. Nutrition: TPN initiated. Bowel Regimen: As needed. GI Prophylaxis: Pantoprazole bid DVT Prophylaxis: Lovenox (held/ Dc'd due to low hemoglobin). Lines / Tubes / Devices Airway: Intubated on 01/14, extubated on 02/07, reintubated on 02/25 extubated 02/28 Vascular Access: PICC line placed in right upper thigh on 01/26. Drips: Dc'd pressors and sedatives. Urinary: Leach catheter placed on 01/14, exchanged on 02/14. CARMEN drains in 1 quadrant. Goals of care addressed with patient's family members for more than 29 minutes: Full code status Care plan updated to the patient family Chris (son) on bedside and addressed all concerns Critical care time spent more than 83 minutes excluding procedures and including discussion with the family Case discussed with Dr. Carvalho and RN Plan discussed with: Son, Other (RN) Dietary Evaluation Review Comments: Nutrition Recommendation: 1) TPN to meet at least 75% estimated needs within 7 days 2) Monitor NPO status, lab values, wt trend, I/O Expected Outcomes/Goals: To meet >75% estimated needs Lab values to improve Fu 2-3 days Is there a minimum of two crit: Yes CC Plasma Assessment Blood Product Administration S: [id number] ASHLEY TREJO RESIDENT Mar 11, 2025 13:53
--- NOTE | 2025-03-11 22:40 | DVHPN2 ---
Subjective DOS: 03/11/2025 Patient seen and examined at bedside. Remains on supplemental oxygen Overnight events reviewed. HPI: A 80-year-old woman with past medical history of diabetes mellitus who presented to the ED on 01/13/25 with c/o abdominal pain x4 days. Patient reported 8 - 9/10 pain that was sharp and constant, throughout her abdomen. She did note pain medications make it better. Patient admitted to being noncompliant with her Eliquis for the past 2 weeks. Patient denied any fever, chills, chest pain, shortness of breath, or other acute complaints. She reported falling on her left side on January 06, 2025. Patient does not use home oxygen. Patient was admitted for further care, subsequently found to have perforated bowel and underwent exploratory laparotomy with repair of bowel perforation. Pulmonary consultation was requested for evaluation and management due to acute hypoxic respiratory failure requiring mechanical ventilator. Past Medical History: Diabetes mellitus Past Surgical History: , Hernia Repair Medications: Reviewed. Allergies: No known drug allergies. Family History: Arthritis. No family history of premature CAD. No family history of lung disorders. Social History: Nonsmoker. No alcohol or illicit drug use. Reviewed: Care Plan, H&P Changes from previous H/P or p: No Changes Gastrointestinal: Abdominal Pain Objective Vitals Vital Signs Date Time Temp Pulse Resp B/P (MAP) Pulse Ox O2 Delivery O2 Flow Rate FiO2 03/11/25 18:30 107 15 106/61 03/11/25 18:00 98 03/11/25 17:45 Room Air* 0 21 03/11/25 17:00 97.5 97.5 Intake/Output Intake and Output 03/11/25 07:00 Intake Total 1562 ml Output Total 1780 ml Balance -218 ml Intake Oral 0 ml IV Total 1562 ml Output Urine Total 1350 ml Stool Total 0 ml Gastric Drainage Total 100 ml Drainage Total 330 ml General Appearance: Alert, Oriented X3, No acute distress, Other HEENT: Atraumatic, Mucous membr. moist/pink Neck: Supple Lungs: Clear to auscultation, Other (Decreased air entry bilaterally) Cardiovascular: Regular rate, Normal S1, Normal S2, No murmurs, Gallops, Rubs Abdomen: Normal bowel sounds, Soft, No tenderness Extremities: No clubbing, No cyanosis, No edema Neuro: Strength at 5/5 X4 ext, Sensation intact, Cranial nerves 3-12 NL Psych/Mental Status: Mental status NL, Mood NL Medications Current Medications Medications Dose Ordered Sig/Isaura Route Start Time Stop Time Status Last Admin Dose Admin Cefazolin Sodium 50 ml @ 100 mls/hr Q8HR IV 01/13/25 14:00 UNV Vasopressin 20 units/Sodium Chloride 100 ml @ 9 mls/hr Q11H7M IV 01/13/25 18:45 UNV Potassium Chloride 100 ml @ 50 mls/hr Q2H IV 01/16/25 12:45 01/16/25 18:44 UNV Vancomycin HCl 100 ml @ 100 mls/hr DAILY@1200 IV 01/20/25 12:00 UNV Amino Acids 0 ml @ 0 mls/hr PER PHARMACY IV 02/13/25 10:45 Ondansetron HCl 4 mg Q4HPRN PRN IV 02/21/25 09:30 02/24/25 10:45 4 MG Micafungin Sodium 100 mg/Sodium Chloride 100 ml @ 100 mls/hr DAILY IV 02/22/25 10:00 03/11/25 10:14 100 MLS/HR Multi-Ingredient Ointment 1 applic DAILY TOP 02/23/25 10:00 03/11/25 10:38 1 APPLIC Lidocaine 1 patch DAILY@0230 TOP 02/24/25 02:30 03/11/25 01:29 1 PATCH Norepinephrine Bitartrate 250 ml @ 3.75 mls/hr Q24H IV 02/25/25 11:45 02/26/25 11:51 7.5 MLS/HR Diagnostic Test (Pha) 1 strip Q4HR 02/26/25 16:00 Cancel Dextrose 50 ml UD PRN IV 02/26/25 14:15 Diagnostic Test (Pha) 1 strip IQ4HR 02/26/25 16:00 UNV Dextrose 50 ml UD PRN IV 02/26/25 16:00 UNV Insulin Human Regular Q6HR SC 03/02/25 12:00 03/11/25 17:48 3 UNITS Pantoprazole Sodium 40 mg BID IV 03/08/25 22:00 03/11/25 10:08 40 MG Levothyroxine Sodium 50 mcg DAILY IV 03/09/25 10:00 03/11/25 10:08 50 MCG Hydromorphone HCl 0.5 mg Q4HPRN PRN IV 03/09/25 15:00 03/11/25 17:54 0.5 MG Piperacillin Sod/ Tazobactam Sod 100 ml @ 25 mls/hr Q8HR IV 03/11/25 14:00 03/11/25 13:31 25 MLS/HR Fat Emulsion Intravenous 150 ml/Sodium Acetate 20 meq/Potassium Phosphate 22 meq/ Multivitamins 10 ml/Insulin Human Regular 5 units/ Amino Acids/ Dextrose/Purified Water 1,375.05 ml @ 57 mls/hr Q24H8M IV 03/11/25 22:00 03/12/25 21:59 03/11/25 21:31 57 MLS/HR Laboratory Results Laboratory Tests 03/11/25 05:19 Chemistry Test 03/11/25 05:19 Albumin 2.7 g/dL (3.2-4.8) L Calcium Level 9.3 mg/dL (8.7-10.4) Magnesium Level 2.6 mg/dL (1.6-2.6) Phosphorus Level 3.7 mg/dL (2.4-5.1) Total Protein 6.0 g/dL (5.7-8.2) LFT Test 03/11/25 05:19 Alanine Aminotransferase (ALT) 69 U/L (7-40) H Alkaline Phosphatase 304 U/L (46-116) H Aspartate Amino Transferase (AST) 79 U/L (13-40) H Total Bilirubin 3.2 mg/dL (0.2-1.0) H Urinalysis Test 01/14/25 02:00 Urine Color Yellow (Yellow) Urine Clarity Turbid (Clear) H Urine pH 6.0 (5.0-9.0) Urine Specific [place] 1.016 (1.001-1.035) Urine Protein 1+ (Negative) H Urine Ketones Trace (Negative) Urine Blood 1+ /uL (Negative) H Urine Nitrite Negative (Negative) Urine Bilirubin Negative (Negative) Urine Urobilinogen Normal mg/dL (Negative) Urine Leukocyte Esterase Negative /uL (Negative) Urine RBC 10 /hpf (0 - 4) Urine Microscopic WBC 2 /HPF (0-5) Urine Squamous Epithelial Cells Few /hpf (<5) Urine Amorphous Crystals Few /hpf (None Seen) Urine Bacteria None seen /hpf (None Seen) Urine Creatinine 34.09 mg/dL (30.0-125.0) Urine Protein/Creatinine Ratio 3.85 Urine Sodium 76 mmol/L (40-220) Urine Glucose Normal mg/dL (Normal) Urine Total Protein 131.1 mg/dL (1-14) H Microbiology Microbiology Date/Time Source Procedure Growth Status 03/07/25 08:32 Blood Blood Culture - Final Staphylococcus epidermidis Complete 03/02/25 16:00 Urine - [place] Urine Culture - Final Complete 03/02/25 16:00 Aspirate Gram Stain - Final Resulted 03/02/25 16:00 Body Fluid Culture - Preliminary Enterococcus faecium - VRE Escherichia coli Resulted 02/25/25 11:48 Sputum Gram Stain - Final Complete 02/25/25 11:48 Sputum Respiratory Culture - Final Complete 01/13/25 17:10 Nose MRSA Screen - Final Complete Assessment/Plan Assessment/Plan Impression: Acute hypoxic respiratory failure Atelectasis Pleural effusion Acute metabolic encephalopathy secondary to acute hypoxic respiratory failure Pulmonary edema due to chronic heart failure with preserved ejection fraction Perforation of small bowel status post exploratory laparotomy Acute on chronic kidney disease secondary to shock, vasomotor nephropathy Anemia Sepsis with septic shock secondary to perforation of small bowel Events: Remains on supplemental oxygen On 2 LPM NC Taper O2 as tolerated No new complaints. Continue NPO. Monitor drainage from NG tube, CARMEN drain. Surgery following. Mentioned conservative management. Continue physical therapy. HOB elevation Aspiration precautions Gastrografin study, positive for leak. Study demonstrated contrast extravasation is seen in the proximal small bowel, possibly left sided jejunum near the surgical drain can be seen with a leak. Surgery recs appreciated. Poor wound healing, leakage noted. Patient NPO due to leak. GI recs appreciated. TPN for nutritional support NGT with coffee-ground material. Hemoglobin currently 9.9 g/dL Continue antibiotics/antifungal coverage WBC currently normal. Surgery recommendations appreciated. Continue to monitor hemoglobin Transfuse if less than 7.0 g/dL. Pain control Avoid oversedation Wound care. Physical Therapy Labs and imaging reviewed. Rest of plan as noted below. Plan: S/p extubation on 03/02/25 Supplemental oxygen Titrate to keep O2 sats above 92%. Continue antibiotics. F/u cultures. Continue antifungal Monitor renal function due to acute kidney injury. Monitor electrolytes. Supplement as necessary. Monitor ins and outs Monitor hemoglobin Transfuse if less than 7.0 g/dL. Follow up GI recommendations Follow up Surgery recommendations Nutritional support. Accu-Cheks, ISS. GI/DVT prophylaxis. Prognosis: Poor given multiple comorbidities. Rest of plan per hospitalist and other consultants. Thank you for allowing me to participate in this patient's care. Further recommendations will depend on patient's clinical course. Please do not hesitate to contact me if you have any questions or concerns. This medical document was created using an electronic medical record system with [employer] dictation system. Although this document has been carefully reviewed, there may still be some phonetic and typographical errors. These areas are purely typographical due to imperfections of the software programs, and do not reflect any compromise in the patient's medical care. Plan discussed with: Patient, Other (RN) Visit Coding Pulmonary Billing Provider: MORA LANGSTON MD Date of Service if different f: Mar 11, 2025 Common Visit Codes: [id number] INP/OBS CARE(HIGH) MORA LANGSTON MD Mar 11, 2025 22:40
[2025-03-12] VITALS (21 sets, daily range): BP systolic 89–113; BP diastolic 44–66; PULSE 94–107; RESP 12–24; TEMP 97.5–98.2; O2SAT 83–100
[2025-03-12 05:28] LABS: Hematocrit 27.3 % (36.0-46.0); Hemoglobin 9.2 g/dL (12.2-16.2); Mean Corpuscular Hemoglobin 34.3 pg (28.0-32.0); Mean Corpuscular Volume 102.4 fL (80.0-100.0); Nucleated Red Blood Cells % 0.1 %
[2025-03-12 05:38] LABS: Anion Gap 11 (5-15); BUN/Creatinine Ratio 37.0 (10.0-20.0); Calcium 8.8 mg/dL (8.7-10.4); Carbon Dioxide 24 mmol/L (20-31); Magnesium 2.3 mg/dL (1.6-2.6); Potassium 3.7 mmol/L (3.5-5.1); Sodium 143 mmol/L (136-145); Total Protein 5.7 g/dL (5.7-8.2)
[2025-03-12 05:40] LABS: Alanine Aminotransferase 54 U/L (7-40); Albumin 2.5 g/dL (3.2-4.8); Alkaline Phosphatase 247 U/L (46-116); Bilirubin, Total 3.2 mg/dL (0.2-1.0); Blood Urea Nitrogen 44 mg/dL (9-23); Chloride 108 mmol/L (98-107); Glucose 118 mg/dL (74-106)
[2025-03-12] MEDS: LIDOCAINE 5% TOPICAL PATCH TOP SCH (10:12)
--- NOTE | 2025-03-12 13:23 | DVHPNRES ---
Progress Note Date Seen: Mar 12, 2025 Resident Creating Document: KEVIN CONDE RESIDENT Has the PT tested + for MRSA If YES, has PT been informed?: No Medical Necessity Reason Pt with a Central, PICC or Fol: Yes The following are medically ne: PICC Line, Leach Catheter Reason for leach catheter: Strict I&O Subjective Review of Systems This is a 80-year-old lady with past medical history of hypertension, AFib (on Eliquis), diabetes type 2, CKD, came to the hospital due to abdominal pain, and constipation. Admitted on 01/13/2025. Found to have peritonitis due to bowel perforation, and underwent emergent laparotomy with subsequent resection of perforated small bowel and enteroenterostomy. Due to abnormal CARMEN drainage, second exploratory laparotomy performed on 02/04 and found to have perforation near to previous perforation area, underwent resection of area with subsequent anastomosis of proximal jejunal loops. : Patient seen in the [facility]. Continued to be NPO. On 2 L oxygen via nasal cannula. Wound VAC is mild functional, yellowish drainage from incision site, CARMEN drain is functional, draining greenish bile. No signs of fever. No any other night complaints. Objective vital signs Vital Sign Date Time Temp Pulse Resp B/P (MAP) Pulse Ox O2 Delivery O2 Flow Rate FiO2 03/12/25 12:52 101 19 110/66 03/12/25 12:00 98.2 83 98.2 03/12/25 04:00 Room Air* 0 21 Total Intake and Output 03/11/25 03/11/25 03/12/25 15:00 23:00 07:00 Intake Total 668.5 ml 519.5 ml 310 ml Output Total 150 ml 575 ml Balance 668.5 ml 369.5 ml -265 ml medications Current Medications Medications Dose Ordered Sig/Isaura Route Start Time Stop Time Status Last Admin Dose Admin Cefazolin Sodium 50 ml @ 100 mls/hr Q8HR IV 01/13/25 14:00 UNV Vasopressin 20 units/Sodium Chloride 100 ml @ 9 mls/hr Q11H7M IV 01/13/25 18:45 UNV Potassium Chloride 100 ml @ 50 mls/hr Q2H IV 01/16/25 12:45 01/16/25 18:44 UNV Vancomycin HCl 100 ml @ 100 mls/hr DAILY@1200 IV 01/20/25 12:00 UNV Amino Acids 0 ml @ 0 mls/hr PER PHARMACY IV 02/13/25 10:45 Ondansetron HCl 4 mg Q4HPRN PRN IV 02/21/25 09:30 03/12/25 12:52 4 MG Micafungin Sodium 100 mg/Sodium Chloride 100 ml @ 100 mls/hr DAILY IV 02/22/25 10:00 03/12/25 10:44 100 MLS/HR Multi-Ingredient Ointment 1 applic DAILY TOP 02/23/25 10:00 03/12/25 10:12 1 APPLIC Norepinephrine Bitartrate 250 ml @ 3.75 mls/hr Q24H IV 02/25/25 11:45 02/26/25 11:51 7.5 MLS/HR Diagnostic Test (Pha) 1 strip Q4HR 02/26/25 16:00 Cancel Dextrose 50 ml UD PRN IV 02/26/25 14:15 Diagnostic Test (Pha) 1 strip IQ4HR 02/26/25 16:00 UNV Dextrose 50 ml UD PRN IV 02/26/25 16:00 UNV Insulin Human Regular Q6HR SC 03/02/25 12:00 03/11/25 17:48 3 UNITS Pantoprazole Sodium 40 mg BID IV 03/08/25 22:00 03/12/25 10:11 40 MG Levothyroxine Sodium 50 mcg DAILY IV 03/09/25 10:00 03/12/25 10:11 50 MCG Hydromorphone HCl 0.5 mg Q4HPRN PRN IV 03/09/25 15:00 03/12/25 12:52 0.5 MG Piperacillin Sod/ Tazobactam Sod 100 ml @ 25 mls/hr Q8HR IV 03/11/25 14:00 03/12/25 06:00 25 MLS/HR Fat Emulsion Intravenous 150 ml/Sodium Acetate 20 meq/Potassium Phosphate 22 meq/ Multivitamins 10 ml/Insulin Human Regular 5 units/ Amino Acids/ Dextrose/Purified Water 1,375.05 ml @ 57 mls/hr Q24H8M IV 03/11/25 22:00 03/12/25 21:59 03/11/25 21:31 57 MLS/HR Lidocaine 1 patch DAILY TOP 03/12/25 10:00 11/1/25 10:12 1 PATCH Fat Emulsion Intravenous 150 ml/Sodium Acetate 20 meq/Potassium Acetate 10 meq/ Potassium Phosphate 22 meq/ Multivitamins 10 ml/Insulin Human Regular 5 units/ Amino Acids/ Dextrose/Purified Water 1,380.05 ml @ 57 mls/hr [id number] IV 03/12/25 22:00 03/13/25 21:59 Examination General Appearance: Alert and Oriented x2 HEENT: Atraumatic, Mucous membranes moist/pink Respiratory: Clear to auscultation, Normal air movement, No added sounds Cardiovascular: Regular rate, Normal S1, Normal S2, No murmurs Abdominal: Active bowel sounds, Soft, no distention, no tenderness, colostomy bag in place and 1 CARMEN drain with greenish fluid Extremities: There is bilateral upper extremity edema, with seeping fluid Skin: No Significant rash, except past surgical scars Neuro: more alert and oriented Nurse was there as clubhouse manager during examination laboratory and microbiology Laboratory Tests 03/12/25 05:00 Test 03/12/25 05:00 Range/Units Serum Glucose 118 H 74-106 mg/dL Microbiology Date/Time Source Procedure Growth Status 03/07/25 08:32 Blood Blood Culture - Final Staphylococcus epidermidis Complete 03/02/25 16:00 Urine - [place] Urine Culture - Final Complete 03/02/25 16:00 Aspirate Gram Stain - Final Resulted 03/02/25 16:00 Body Fluid Culture - Preliminary Enterococcus faecium - VRE Escherichia coli Resulted 02/25/25 11:48 Sputum Gram Stain - Final Complete 02/25/25 11:48 Sputum Respiratory Culture - Final Complete 01/13/25 17:10 Nose MRSA Screen - Final Complete Problem List/Assessment/Plan Problem List/Assessment/Plan Neurology # Chronic ischemic changes # Chronic Cortical atrophy - Head CT (01/29): Chronic microangiopathy and cortical atrophy. - reintubated on 02/25/25 during surgery # Extubated on 02/28 Cardiovascular # Septic shock secondary to hollow viscus perforation. # Paroxysmal atrial fibrillation with a second-degree hypercoagulable state currently NSR # Chronic diastolic heart failure with preserved EF 65% # Hypertension. - Echocardiogram (01/15): Normal LV EF (65%), mild LVH, mild LV diastolic dysfunction. - Chest X-ray: Bibasilar atelectasis. - ZEFERINO?DS?-VASc score >5 - cardiology on board - initially on Lovenox therapeutic but Dc'd due to low hemoglobin, SCD - Labetalol PRN Pulmonary # Acute hypoxic respiratory failure secondary to bilateral pleural effusion/pneumonia s/p re-intubation, status post extubation 02/28 - monitor with daily CXR - Sputum culture 01/29 Presumptive Zoe albicans and : negative Gastrointestinal / Liver # Acute Bacterial Peritonitis due to small bowel perforation vs Perisplenic abscess. s/p multiple laparotomies # Transaminitis secondary to shock. # Anion gap metabolic acidosis due to bowel ischemia and lactic acidosis - CT abdomen/pelvis (02/16): Pneumoperitoneum, extraluminal contrast, perisplenic/subdiaphragmatic collection (7.1 1.1 cm). - Small bowel series (02/11): Normal. - Gastrografin (02/21): [place]-enteric fistula, contrast leak from distal transverse colon. Procedures: - First laparotomy (01/13): Resection of perforated small bowel, enteroenterostomy. - Second laparotomy (02/04): Resection near previous perforation, jejunal anastomosis. - Third laparotomy (02/25): Resection of distal ileum, end-to-end anastomosis, ileostomy. Cultures: - Peritoneal fluid (01/13): E. coli, Klebsiella pneumoniae (sensitive to meropenem). - Peritoneal fluid (02/17): E. coli, Stenotrophomonas maltophilia. - IR-guided pigtail drain placed; drained 50 cc purulent fluid. - CARMEN drains placed in 4 quadrants initially and now patient has only 1 CARMEN drain - Initially NPO, TPN initiated. - NG tube placed. - IV antimicrobials Zosyn and micafungin - Initially patient is on Levofloxacin, Flagyl (02/03); Vancomycin and Meropenem (); Meropenem (); Vancomycin () then eventually switched to above antimicrobials -Gastrografin scan(03/05) showed Contrast extravasation is seen in the proximal small bowel, possibly left sided jejunum near the surgical drain can be seen with a leak. Genitourinary / Kidney # ISRRAEL likely secondary to shock/volume depletion- resolved - Nephrology consulted for ISRRAEL. Endocrine # Hypothyroidism: TSH 42.29, low T4 # Type 2 diabetes mellitus: HbA1c 8.2%.- # Episodes of hypoglycemia. # Hypothyroidism - continuously monitoring blood glucose and on ISS - Started on Levothyroxine 50 daily -repeat free T4 Metabolic Hypokalemia. Hyperkalemia. Hyponatremia Hypophosphatemia: given IV phosphate Nutrition: Severe protein malnutrition. Hematology # Acute on chronic anemia (hemodilution/post-surgical). # Severe thrombocytopenia, HIT # Acute DVT of right upper extremity. - Ultrasound (01/17): Partial thrombus in right internal jugular and cephalic veins. - hemoglobin today 6.9, transfused 1 more unit of PRBC 02/28 - Transfused total 8 units PRBC, 2 platelet units. - continuously monitor H&H - hold blood thinners Musculoskeletal / Skin # Rib fracture due to fall. Nutrition: TPN initiated. Bowel Regimen: As needed. GI Prophylaxis: Pantoprazole bid DVT Prophylaxis: Lovenox (held/ Dc'd due to low hemoglobin). Lines / Tubes / Devices Airway: Intubated on 01/14, extubated on 02/07, reintubated on 02/25 extubated 02/28 Vascular Access: PICC line placed in right upper thigh on 01/26. Drips: Dc'd pressors and sedatives. Urinary: Leach catheter placed on 01/14, exchanged on 02/14. CARMEN drains in 1 quadrant. Patient continued to be NPO, wound VAC is mild functional, draining yellowish liquid from wound VAC site, abdomen is soft and nontender, CARMEN drain is draining. Follow recommendation from surgery and continue wound care . Continue antibiotic as per Infectious Disease. Family was at bedside at the time of evaluation. All questions answered . Goals of care addressed with patient's family members for more than 29 minutes: Full code status Critical care time spent more than 68 minutes excluding procedures and including discussion with the family Case discussed with Dr. Carvalho and RN Plan discussed with: Patient, Son, Other (RN) Dietary Evaluation Review Comments: Nutrition Recommendation: 1) TPN to meet at least 75% estimated needs within 7 days 2) Monitor NPO status, lab values, wt trend, I/O Expected Outcomes/Goals: To meet >75% estimated needs Lab values to improve Fu 2-3 days Is there a minimum of two crit: Yes CC Plasma Assessment Blood Product Administration S: [id number] KEVIN CONDE RESIDENT Mar 12, 2025 13:23
--- NOTE | 2025-03-12 18:46 | DVHPN2 ---
Subjective DOS: 03/12/2025 Patient seen and examined at bedside. Remains on supplemental oxygen Overnight events reviewed. HPI: A 80-year-old woman with past medical history of diabetes mellitus who presented to the ED on 01/13/25 with c/o abdominal pain x4 days. Patient reported 8 - 9/10 pain that was sharp and constant, throughout her abdomen. She did note pain medications make it better. Patient admitted to being noncompliant with her Eliquis for the past 2 weeks. Patient denied any fever, chills, chest pain, shortness of breath, or other acute complaints. She reported falling on her left side on January 06, 2025. Patient does not use home oxygen. Patient was admitted for further care, subsequently found to have perforated bowel and underwent exploratory laparotomy with repair of bowel perforation. Pulmonary consultation was requested for evaluation and management due to acute hypoxic respiratory failure requiring mechanical ventilator. Past Medical History: Diabetes mellitus Past Surgical History: , Hernia Repair Medications: Reviewed. Allergies: No known drug allergies. Family History: Arthritis. No family history of premature CAD. No family history of lung disorders. Social History: Nonsmoker. No alcohol or illicit drug use. Reviewed: Care Plan, H&P Changes from previous H/P or p: No Changes Gastrointestinal: Abdominal Pain Objective Vitals Vital Signs Date Time Temp Pulse Resp B/P (MAP) Pulse Ox O2 Delivery O2 Flow Rate FiO2 03/12/25 18:00 103 03/12/25 17:08 14 99/59 03/12/25 12:00 98.2 83 98.2 03/12/25 04:00 Room Air* 0 21 Intake/Output Intake and Output 03/12/25 07:00 Intake Total 1498.0 ml Output Total 725 ml Balance 773.0 ml Intake Oral 0 ml IV Total 1498.0 ml Output Urine Total 525 ml Stool Total 30 ml Gastric Drainage Total 0 ml Drainage Total 170 ml General Appearance: Alert, Oriented X3, No acute distress, Other HEENT: Atraumatic, Mucous membr. moist/pink Neck: Supple Lungs: Clear to auscultation, Other (Decreased air entry bilaterally) Cardiovascular: Regular rate, Normal S1, Normal S2, No murmurs, Gallops, Rubs Abdomen: Normal bowel sounds, Soft, No tenderness Extremities: No clubbing, No cyanosis, No edema Neuro: Strength at 5/5 X4 ext, Sensation intact, Cranial nerves 3-12 NL Psych/Mental Status: Mental status NL, Mood NL Medications Current Medications Medications Dose Ordered Sig/Isaura Route Start Time Stop Time Status Last Admin Dose Admin Cefazolin Sodium 50 ml @ 100 mls/hr Q8HR IV 01/13/25 14:00 UNV Vasopressin 20 units/Sodium Chloride 100 ml @ 9 mls/hr Q11H7M IV 01/13/25 18:45 UNV Potassium Chloride 100 ml @ 50 mls/hr Q2H IV 01/16/25 12:45 01/16/25 18:44 UNV Vancomycin HCl 100 ml @ 100 mls/hr DAILY@1200 IV 01/20/25 12:00 UNV Amino Acids 0 ml @ 0 mls/hr PER PHARMACY IV 02/13/25 10:45 Ondansetron HCl 4 mg Q4HPRN PRN IV 02/21/25 09:30 03/12/25 17:08 4 MG Micafungin Sodium 100 mg/Sodium Chloride 100 ml @ 100 mls/hr DAILY IV 02/22/25 10:00 03/12/25 10:44 100 MLS/HR Multi-Ingredient Ointment 1 applic DAILY TOP 02/23/25 10:00 03/12/25 10:12 1 APPLIC Norepinephrine Bitartrate 250 ml @ 3.75 mls/hr Q24H IV 02/25/25 11:45 02/26/25 11:51 7.5 MLS/HR Diagnostic Test (Pha) 1 strip Q4HR 02/26/25 16:00 Cancel Dextrose 50 ml UD PRN IV 02/26/25 14:15 Diagnostic Test (Pha) 1 strip IQ4HR 02/26/25 16:00 UNV Dextrose 50 ml UD PRN IV 02/26/25 16:00 UNV Insulin Human Regular Q6HR SC 03/02/25 12:00 03/12/25 17:22 3 UNITS Pantoprazole Sodium 40 mg BID IV 03/08/25 22:00 03/12/25 10:11 40 MG Levothyroxine Sodium 50 mcg DAILY IV 03/09/25 10:00 03/12/25 10:11 50 MCG Hydromorphone HCl 0.5 mg Q4HPRN PRN IV 03/09/25 15:00 03/12/25 17:08 0.5 MG Piperacillin Sod/ Tazobactam Sod 100 ml @ 25 mls/hr Q8HR IV 03/11/25 14:00 03/12/25 15:00 25 MLS/HR Fat Emulsion Intravenous 150 ml/Sodium Acetate 20 meq/Potassium Phosphate 22 meq/ Multivitamins 10 ml/Insulin Human Regular 5 units/ Amino Acids/ Dextrose/Purified Water 1,375.05 ml @ 57 mls/hr Q24H8M IV 03/11/25 22:00 03/12/25 21:59 03/11/25 21:31 57 MLS/HR Lidocaine 1 patch DAILY TOP 03/12/25 10:00 03/12/25 10:12 1 PATCH Fat Emulsion Intravenous 150 ml/Sodium Acetate 20 meq/Potassium Acetate 10 meq/ Potassium Phosphate 22 meq/ Multivitamins 10 ml/Insulin Human Regular 5 units/ Amino Acids/ Dextrose/Purified Water 1,380.05 ml @ 57 mls/hr [id number] IV 03/12/25 22:00 03/13/25 21:59 Laboratory Results Laboratory Tests 03/12/25 05:00 Chemistry Test 03/12/25 05:00 Albumin 2.5 g/dL (3.2-4.8) L Calcium Level 8.8 mg/dL (8.7-10.4) Magnesium Level 2.3 mg/dL (1.6-2.6) Phosphorus Level 3.1 mg/dL (2.4-5.1) Total Protein 5.7 g/dL (5.7-8.2) LFT Test 03/12/25 05:00 Alanine Aminotransferase (ALT) 54 U/L (7-40) H Alkaline Phosphatase 247 U/L (46-116) H Aspartate Amino Transferase (AST) 59 U/L (13-40) H Total Bilirubin 3.2 mg/dL (0.2-1.0) H Urinalysis Test 01/14/25 02:00 Urine Color Yellow (Yellow) Urine Clarity Turbid (Clear) H Urine pH 6.0 (5.0-9.0) Urine Specific [place] 1.016 (1.001-1.035) Urine Protein 1+ (Negative) H Urine Ketones Trace (Negative) Urine Blood 1+ /uL (Negative) H Urine Nitrite Negative (Negative) Urine Bilirubin Negative (Negative) Urine Urobilinogen Normal mg/dL (Negative) Urine Leukocyte Esterase Negative /uL (Negative) Urine RBC 10 /hpf (0 - 4) Urine Microscopic WBC 2 /HPF (0-5) Urine Squamous Epithelial Cells Few /hpf (<5) Urine Amorphous Crystals Few /hpf (None Seen) Urine Bacteria None seen /hpf (None Seen) Urine Creatinine 34.09 mg/dL (30.0-125.0) Urine Protein/Creatinine Ratio 3.85 Urine Sodium 76 mmol/L (40-220) Urine Glucose Normal mg/dL (Normal) Urine Total Protein 131.1 mg/dL (1-14) H Microbiology Microbiology Date/Time Source Procedure Growth Status 03/07/25 08:32 Blood Blood Culture - Final Staphylococcus epidermidis Complete 03/02/25 16:00 Urine - [place] Urine Culture - Final Complete 03/02/25 16:00 Aspirate Gram Stain - Final Resulted 03/02/25 16:00 Body Fluid Culture - Preliminary Enterococcus faecium - VRE Escherichia coli Resulted 02/25/25 11:48 Sputum Gram Stain - Final Complete 02/25/25 11:48 Sputum Respiratory Culture - Final Complete 01/13/25 17:10 Nose MRSA Screen - Final Complete Assessment/Plan Assessment/Plan Impression: Acute hypoxic respiratory failure Atelectasis Pleural effusion Acute metabolic encephalopathy secondary to acute hypoxic respiratory failure Pulmonary edema due to chronic heart failure with preserved ejection fraction Perforation of small bowel status post exploratory laparotomy Acute on chronic kidney disease secondary to shock, vasomotor nephropathy Anemia Sepsis with septic shock secondary to perforation of small bowel Events: Remains on supplemental oxygen On 2 LPM NC Taper O2 as tolerated Wound VAC is not functioning, yellowish drainage noted from incision site CARMEN drain is functional, draining greenish bile. Surgical recs appreciated No signs of fever. No other overnight events. Continue NPO. Monitor drainage from NG tube, CARMEN drain. Surgery following. Mentioned conservative management. Continue physical therapy. HOB elevation Aspiration precautions Continue antibiotics/antifungal coverage WBC currently normal. ID recommendations appreciated. TPN for nutritional support Hemoglobin stable at 9.2 g/dL Continue to monitor hemoglobin Transfuse if less than 7.0 g/dL. Pain control Avoid oversedation Wound care. Physical Therapy Gastrografin study, positive for leak. Study demonstrated contrast extravasation is seen in the proximal small bowel, possibly left sided jejunum near the surgical drain can be seen with a leak. Poor wound healing, leakage noted. Patient NPO due to leak. GI recs appreciated. Labs and imaging reviewed. Rest of plan as noted below. Plan: S/p extubation on 03/02/25 Supplemental oxygen Titrate to keep O2 sats above 92%. Continue antibiotics. F/u cultures. Continue antifungal TPN for nutritional support Monitor renal function due to acute kidney injury. Monitor electrolytes. Supplement as necessary. Monitor ins and outs Monitor hemoglobin Transfuse if less than 7.0 g/dL. Follow up GI recommendations Follow up Surgery recommendations Wound care Nutritional support. Accu-Cheks, ISS. GI/DVT prophylaxis. Prognosis: Poor given multiple comorbidities. Rest of plan per hospitalist and other consultants. Thank you for allowing me to participate in this patient's care. Further recommendations will depend on patient's clinical course. Please do not hesitate to contact me if you have any questions or concerns. This medical document was created using an electronic medical record system with [employer] dictation system. Although this document has been carefully reviewed, there may still be some phonetic and typographical errors. These areas are purely typographical due to imperfections of the software programs, and do not reflect any compromise in the patient's medical care. Plan discussed with: Patient, Other (MASHA James) Visit Coding Pulmonary Billing Provider: MORA LANGSTON MD Date of Service if different f: Mar 12, 2025 Common Visit Codes: [id number] INP/OBS CARE(HIGH) MORA LANGSTON MD Mar 12, 2025 18:46
[2025-03-12] MEDS: PIPERACILLIN TAZOB 3.375 GM IV ONE (20:54)
--- NOTE | 2025-03-12 22:14 | DVHPN2 ---
Consult Progress Note Objective vital signs Vital Sign Date Time Temp Pulse Resp B/P (MAP) Pulse Ox O2 Delivery O2 Flow Rate FiO2 03/12/25 20:00 14 97 Room Air* 0 21 03/12/25 19:00 109 104/62 03/12/25 16:00 98.0 98.0 Total Intake and Output 03/11/25 03/11/25 03/12/25 15:00 23:00 07:00 Intake Total 668.5 ml 519.5 ml 310 ml Output Total 150 ml 575 ml Balance 668.5 ml 369.5 ml -265 ml medications Current Medications Medications Dose Ordered Sig/Isaura Route Start Time Stop Time Status Last Admin Dose Admin Cefazolin Sodium 50 ml @ 100 mls/hr Q8HR IV 01/13/25 14:00 UNV Vasopressin 20 units/Sodium Chloride 100 ml @ 9 mls/hr Q11H7M IV 01/13/25 18:45 UNV Potassium Chloride 100 ml @ 50 mls/hr Q2H IV 01/16/25 12:45 01/16/25 18:44 UNV Vancomycin HCl 100 ml @ 100 mls/hr DAILY@1200 IV 01/20/25 12:00 UNV Amino Acids 0 ml @ 0 mls/hr PER PHARMACY IV 02/13/25 10:45 Ondansetron HCl 4 mg Q4HPRN PRN IV 02/21/25 09:30 03/12/25 17:08 4 MG Micafungin Sodium 100 mg/Sodium Chloride 100 ml @ 100 mls/hr DAILY IV 02/22/25 10:00 03/12/25 10:44 100 MLS/HR Multi-Ingredient Ointment 1 applic DAILY TOP 02/23/25 10:00 03/12/25 10:12 1 APPLIC Norepinephrine Bitartrate 250 ml @ 3.75 mls/hr Q24H IV 02/25/25 11:45 02/26/25 11:51 7.5 MLS/HR Diagnostic Test (Pha) 1 strip Q4HR 02/26/25 16:00 Cancel Dextrose 50 ml UD PRN IV 02/26/25 14:15 Diagnostic Test (Pha) 1 strip IQ4HR 02/26/25 16:00 UNV Dextrose 50 ml UD PRN IV 02/26/25 16:00 UNV Insulin Human Regular Q6HR SC 03/02/25 12:00 03/12/25 17:22 3 UNITS Pantoprazole Sodium 40 mg BID IV 03/08/25 22:00 03/12/25 10:11 40 MG Levothyroxine Sodium 50 mcg DAILY IV 03/09/25 10:00 03/12/25 10:11 50 MCG Hydromorphone HCl 0.5 mg Q4HPRN PRN IV 03/09/25 15:00 03/12/25 17:08 0.5 MG Piperacillin Sod/ Tazobactam Sod 100 ml @ 25 mls/hr Q8HR IV 03/11/25 14:00 03/12/25 15:00 25 MLS/HR Lidocaine 1 patch DAILY TOP 03/12/25 10:00 03/12/25 10:12 1 PATCH Fat Emulsion Intravenous 150 ml/Sodium Acetate 20 meq/Potassium Acetate 10 meq/ Potassium Phosphate 22 meq/ Multivitamins 10 ml/Insulin Human Regular 5 units/ Amino Acids/ Dextrose/Purified Water 1,380.05 ml @ 57 mls/hr [id number] IV 03/12/25 22:00 03/13/25 21:59 laboratory and microbiology Laboratory Tests 03/12/25 05:00 Test 03/12/25 05:00 Range/Units Serum Glucose 118 H 74-106 mg/dL Problem List/Assessment/Plan Problem List/Assessment/Plan ASSESSMENT AND PLAN: ID Problem List: -Perforated small bowel with persistent leak; intra-abdominal sepsis; status post multiple exploratory laparotomies with adhesiolysis and enteroenterostomies; CARMEN drains in place -Septic shock; acute hypoxic respiratory failure -Acute kidney injury (ISRRAEL) with acute tubular necrosis (ATN) improved -Transaminitis likely ischemic hepatitis improving -Thrombocytopenia (worsened ~/10 while on vancomycin/fluconazole) -Diabetes mellitus -On apixaban (Eliquis) for last 2 weeks indication unclear -Past surgical history: section; hernia repair Assessment This is a 10 y.o. female with diabetes and prior and hernia repair, who presented with 4 days of sharp lower abdominal pain. Initial ED evaluation notable for CT A/P demonstrating free intraperitoneal air and small bowel inflammatory changes concerning for perforated viscus with mild ascites and mesenteric stranding. She underwent an exploratory laparotomy on 01/13 with lysis of adhesions, small bowel enteroenterostomy, and placement of two Mendel- Steele drains; peritoneal cultures at that time grew Escherichia coli and Klebsiella pneumoniae (both ceftriaxone susceptible). Postoperatively she required norepinephrine (Levophed) and broad-spectrum antibiotics. Course complicated by recurrent sepsis and suspected enterocutaneous/peritoneal contamination, requiring re-exploration on 02/03 with evacuation of copious intra-abdominal infection/abscesses and revision of anastomosis; intraoperative cultures reportedly not obtained. A drain sample dated 01/28 grew Stenotrophomonas (TMP-SMX susceptible). Ongoing respiratory issues prompted empiric vancomycin, later discontinued when sputum grew only Zoe albicans. A third operation on 02/25 for persistent feculent leakage and peritonitis showed a distal ileal perforation proximal to adhesional obstruction; this was resected with primary anastomosis, and further adhesiolysis performed. Upper GI series on 03/04 demonstrates contrast extravasation from proximal small bowel (likely left jejunum) near a surgical drain, consistent with a persistent leak that appears to be adequately drained clinically. She has been afebrile since 03/03, is extubated to 2 L NC, hemodynamically supported on low-dose norepinephrine, and clinically stable abdominally (nontender). LFTs that had peaked during ischemic episodes are improving. Renal function has improved from admission. Cultures/culture interpretation: Earlier peritoneal cultures with E. coli and Klebsiella; drain fluid with Stenotrophomonas (01/28) and subsequent peritoneal/aspirate samples showing E. coli and vancomycin-resistant Enterococcus (VRE) on 03/02; one of four blood culture bottles (03/07) positive for Staphylococcus epidermidis, felt to be contaminant. Given the persistent bowel leak with external drainage and the timing/source of cultures, current drain cultures are likely colonization and may not represent true invasive pathogens. Antimicrobial course (per transcript): initial piperacillin-tazobactam (Zosyn) + vancomycin through 01/19; vancomycin stopped for suspected contribution to thrombocytopenia; courses including meropenem and micafungin through 01/31; then levofloxacin + metronidazole + micafungin through 02/03; meropenem continued thereafter with vancomycin re-trial for presumed pneumonia (later stopped by 02/21 after Zoe-only sputum); micafungin added/continued; trimethoprim- sulfamethoxazole (Bactrim) started 02/21 for Stenotrophomonas coverage; transcript also notes meropenem and rifampin continued until today. Plan: -Intra-abdominal sepsis with persistent small bowel leak: -Source control: continue to ensure CARMEN drains are functioning; avoid routine re- culturing from drains as results likely represent colonization and may mislead management. -Imaging monitoring: repeat upper GI series every few weeks to confirm containment and assess for healing of the leak. -Antibiotics: -De-escalate broad coverage toward enteric pathogens (E. coli/Klebsiella) and away from agents targeting colonizers. -No ongoing coverage for Stenotrophomonas is required at this time. -No coverage for VRE is recommended; discontinue daptomycin if in use. -Continue piperacillin-tazobactam (Zosyn). -Antifungal: continue micafungin. Reassess need periodically. -Duration: continue until leak is resolved or clearly contained with clinical improvement. -Transition to oral therapy when patient can tolerate and when clinically appropriate. -Hemodynamics: continue norepinephrine (Levophed) as needed; ongoing wean as tolerated. -Respiratory: extubated to 2 L NC; supportive care; chest radiograph with persistent interstitial opacities, left basilar consolidation, small pleural effusions monitor clinically. -Renal: ISRRAEL/ATN improved (Cr now ~0.99); continue renal dosing of antimicrobials as indicated; monitor BMP. -Hepatic: transaminases improving from prior ischemic hepatitis; trend LFTs. -Hematology: platelet count currently ~118 K; monitor CBC. -Anticoagulation: on apixaban (Eliquis) for unclear indication per history; reconcile indication and risk/benefit with primary/surgical teams in context of recent surgeries/leak. -Nutrition/NG: continue NG suction per surgery; nutrition per surgical/ICU teams. -Lines/Drains: maintain CARMEN drains; monitor output and character; avoid routine drain cultures. -Follow-up: ID will continue to follow clinically; adjust therapy as new data emerge. Authorized and Performed by: sheron pedraza Total critical care time: Approximately 66 minutes Due to a high probability of clinically significant, life threatening deterioration, the patient required my highest level of preparedness to intervene emergently and I personally spent this critical care time directly and personally managing the patient. This critical care time included obtaining a history; examining the patient; pulse oximetry; ordering and review of studies; arranging urgent treatment with development of a management plan; evaluation of patient's response to treatment; frequent reassessment; and, discussions with other providers. This critical care time was performed to assess and manage the high probability of imminent, life-threatening deterioration that could result in multi-organ failure. It was exclusive of separately billable procedures and treating other patients and teaching time. Isolation Precautions: standard \*Assessment and plan were discussed with the patient as written above (when able/appropriate). \*Plan is subject to change pending incorporation of new incoming information/diagnostics. Updates may be added as addendum at the bottom (OR TOP) of this note. Thank you for the consult. ID will continue to follow. Please contact Infectious Disease for any questions or concerns. Electronically signed by: Sheron Pedraza MD, 03/11/2025 \ Physical Exam: General: NAD Neck: Supple. No masses. HEENT: PERRL. Normal lids and conjunctiva. Moist mucous membranes. Oropharynx without lesions, exudates or excessive erythema. Normal appearance of the external aspects of the nose and ears. Heart: Regular rhythm, normal rate. No murmur. No lower extremity edema. Lungs: Normal respiratory effort. Clear to auscultation bilaterally. No wheezes. No crackles. Abdomen: Soft. Non-tender. Non-distended. No masses or abdominal hernia. Msk: No digital cyanosis. Normal strength and tone in all 4 limbs Skin: Warm and dry, no rashes. Neuro: Alert. No facial droop or slurred speech. Extra-ocular movements intact. Sensation intact to soft touch in all 4 limbs. Psych: Appropriate mood. Full affect. Oriented to person, place, time, and situation. Dietary Evaluation Review Comments: Nutrition Recommendation: 1) TPN to meet at least 75% estimated needs within 7 days 2) Monitor NPO status, lab values, wt trend, I/O Expected Outcomes/Goals: To meet >75% estimated needs Lab values to improve Fu 2-3 days Is there a minimum of two crit: Yes CC Plasma Assessment Blood Product Administration S: [id number] SHERON PEDRAZA MD Mar 12, 2025 22:14
[2025-03-13] VITALS (22 sets, daily range): BP systolic 90–112; BP diastolic 42–65; PULSE 93–110; RESP 13–21; TEMP 97.7–98.8; O2SAT 94–100
[2025-03-13 06:15] LABS: Anion Gap 11 (5-15); BUN/Creatinine Ratio 35.7 (10.0-20.0); Calcium 9.0 mg/dL (8.7-10.4); Carbon Dioxide 23 mmol/L (20-31); Chloride 106 mmol/L (98-107); Magnesium 1.9 mg/dL (1.6-2.6); Potassium 3.6 mmol/L (3.5-5.1); Sodium 140 mmol/L (136-145); Total Protein 5.8 g/dL (5.7-8.2)
[2025-03-13 06:16] LABS: Alanine Aminotransferase 48 U/L (7-40); Albumin 2.5 g/dL (3.2-4.8); Alkaline Phosphatase 218 U/L (46-116); Blood Urea Nitrogen 46 mg/dL (9-23); Glucose 141 mg/dL (74-106)
[2025-03-13 06:34] LABS: Hematocrit 26.5 % (36.0-46.0); Hemoglobin 9.0 g/dL (12.2-16.2); Mean Corpuscular Hemoglobin 33.5 pg (28.0-32.0); Mean Corpuscular Volume 98.5 fL (80.0-100.0); Nucleated Red Blood Cells % 0.1 %
[2025-03-13 06:35] LABS: Bilirubin, Total 3.3 mg/dL (0.2-1.0)
[2025-03-13] MEDS: MAGNESIUM SULFATE 1GM/100ML 100 ML IV ONE (09:00)
--- NOTE | 2025-03-13 14:12 | DVHPN2 ---
Progress Note Date Seen: Mar 13, 2025 Has the PT tested + for MRSA If YES, has PT been informed?: No Medical Necessity Reason Pt with a Central, PICC or Fol: Yes The following are medically ne: PICC Line, Leach Catheter Reason for leach catheter: Strict I&O Objective vital signs Vital Sign Date Time Temp Pulse Resp B/P (MAP) Pulse Ox O2 Delivery O2 Flow Rate FiO2 03/13/25 13:00 99 17 98/47 (64) 98 03/13/25 12:00 Room Air* 0 21 03/13/25 12:00 98.6 98.6 Total Intake and Output 03/12/25 03/12/25 03/13/25 15:00 23:00 07:00 Intake Total 631 ml 613 ml 474 ml Output Total 500 ml 835 ml Balance 631 ml 113 ml -361 ml medications Current Medications Medications Dose Ordered Sig/Isaura Route Start Time Stop Time Status Last Admin Dose Admin Cefazolin Sodium 50 ml @ 100 mls/hr Q8HR IV 01/13/25 14:00 UNV Vasopressin 20 units/Sodium Chloride 100 ml @ 9 mls/hr Q11H7M IV 01/13/25 18:45 UNV Potassium Chloride 100 ml @ 50 mls/hr Q2H IV 01/16/25 12:45 01/16/25 18:44 UNV Vancomycin HCl 100 ml @ 100 mls/hr DAILY@1200 IV 01/20/25 12:00 UNV Amino Acids 0 ml @ 0 mls/hr PER PHARMACY IV 02/13/25 10:45 Ondansetron HCl 4 mg Q4HPRN PRN IV 02/21/25 09:30 03/12/25 17:08 4 MG Micafungin Sodium 100 mg/Sodium Chloride 100 ml @ 100 mls/hr DAILY IV 02/22/25 10:00 03/13/25 10:35 100 MLS/HR Multi-Ingredient Ointment 1 applic DAILY TOP 02/23/25 10:00 03/13/25 09:04 1 APPLIC Norepinephrine Bitartrate 250 ml @ 3.75 mls/hr Q24H IV 02/25/25 11:45 02/26/25 11:51 7.5 MLS/HR Diagnostic Test (Pha) 1 strip Q4HR 02/26/25 16:00 Cancel Dextrose 50 ml UD PRN IV 02/26/25 14:15 Diagnostic Test (Pha) 1 strip IQ4HR 02/26/25 16:00 UNV Dextrose 50 ml UD PRN IV 02/26/25 16:00 UNV Insulin Human Regular Q6HR SC 03/02/25 12:00 03/13/25 11:52 2 UNITS Pantoprazole Sodium 40 mg BID IV 03/08/25 22:00 03/13/25 09:02 40 MG Levothyroxine Sodium 50 mcg DAILY IV 03/09/25 10:00 03/13/25 09:04 50 MCG Hydromorphone HCl 0.5 mg Q4HPRN PRN IV 03/09/25 15:00 03/13/25 11:53 0.5 MG Piperacillin Sod/ Tazobactam Sod 100 ml @ 25 mls/hr Q8HR IV 03/11/25 14:00 03/13/25 13:46 25 MLS/HR Lidocaine 1 patch DAILY TOP 03/12/25 10:00 03/13/25 09:04 1 PATCH Fat Emulsion Intravenous 150 ml/Sodium Acetate 20 meq/Potassium Acetate 10 meq/ Potassium Phosphate 22 meq/ Multivitamins 10 ml/Insulin Human Regular 5 units/ Amino Acids/ Dextrose/Purified Water 1,380.05 ml @ 57 mls/hr [id number] IV 03/12/25 22:00 03/13/25 21:59 03/12/25 23:59 57 MLS/HR Fat Emulsion Intravenous 150 ml/Sodium Acetate 20 meq/Potassium Acetate 20 meq/ Potassium Phosphate 13.2 meq/Multivitamins 10 ml/Insulin Human Regular 5 units/Amino Acids/ Dextrose/Purified Water 1,383.05 ml @ 57 mls/hr [id number] IV 03/13/25 22:00 03/14/25 21:59 Potassium Chloride/Dextrose/ Sod Cl 1,000 ml @ 50 mls/hr Q20H IV 03/13/25 14:00 UNV laboratory and microbiology Laboratory Tests 03/13/25 04:58 Test 03/13/25 04:58 Range/Units Serum Glucose 141 H 74-106 mg/dL Problem List/Assessment/Plan Problem List/Assessment/Plan 01/14/25 afebrile, low dose BP support, received transfusion, I believe her decreased hematocrit is due to hemodilution. abdomen non distended, soft, wound clean and well approximated, drainage serous . remains intubated and sedated 01/16/25 ALKALOSIS, ABDOMEN NON DISTENDED, SOFT, DRAINAGE SEROUS, WOUND CLEAN AND WELL APPROXIMATED 01/17/25 improved, thrombocytopenia possibly made worse by Fluconazole,will DC, abdomen non distended, wound well approximated without infection, TATY drainage serous, CVP 6, good urine output. 01/18/25 abg reviewed, ,abdomen soft, non distended, TATY drainage clear serous, no bowel activity, febrile, urine output ok, continues with thrombocytopenia,pt and inr slightly elevated. prognosis grave. 01/20/25remains sedated on ventilator, abdomen soft, non distended, faint bowel sounds auscultated by nurse, wound clean and well approximated, TATY drainage clear serous. continues with thrombocytopenia, still behind on intravascular volume( BUN and Creatinine elevated), i would give more IV fluids and DC vancomycin. 01/25/25 afebrile, normotensive, wound clean and well approximated, TATY drainage serous, abdomen non distended, soft, gastrografin small bowel series shows non obstructed GI tract and no evidence of extravasation. It is OK to initiate enteric feedings. 01/29/25 16 DAYS POST OPERATIVELY TRHE TATY DRAINAGE WHICH HAD CONSISTENTLY BEEN SEROUS OR SERO SANGUINEOUS HAS BECOME "DIRTY" BROWNISH DISCOLORATION, HER WOUND IS CLEAN AND WELL APPROXIMATED AND HER ABDOMEN IS SOFT AND NON DISTENDED, CT SCAN SHOWS SO0ME FLUID AND ACCUMULATION OF FLUID AROUND THE SPLEEN, WILL REQUEST CT GUIDED ASPIRATION OF SAME, WILL ORDER IRRIGATION OF DRAINS. SHE SI AFEBRILE AND MAINTAINS NORMAL BLOOD PRESSURE, HER WBC IS NORMAL. 01/30/25 improved, awake, being weaned off vent. abdomen non distended, non tender, taty drainage clearing with irrigation 02/02/25clinically unchanged, gastrografin small bowel series reported and normal, no extravasation reported, will order a follow ujp KUB for tomorrow AM 02/03/25 PATIENT HAD A GASTROGRAFIN SMALL BOWEL SERIES AND A FOLLOW UP KUB X RAYS NEITHER ONE OF WHICH SHOW EXTRAVASATION OF CONTRAST OR EVIDENCE OF FREE CONTRAST IN THE PERITONEAL CAVITY. THERE IS HOWEVER VISCOUS, BROWNISH FLUID DRAINING VIA BOTH TATY DRAINS AND THROUGH INFRAUMBILICAL PORTION OF MIDLINE WOUND, I REMOVED THE RICHIE FROM THE 3 CM SECTION OF THE INFRAUMBILICAL WOUND AND EVACUATED ABOUT 30 CC OF THIS FLUID AND INSTRUCTED THE NURSE TO PLACE A STOMA APPLIANCE ON THIS OPENING. 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 TODAY HER WBC IS ELEVATED, ABDOMEN CONTINUES TO BE NON DISTENDED, SOFT, BUT SHE DOES HAVE SLIGHT TENDERNESS IN THE PERIUMBILICAL AREA. I WILL TREAT THIS EXPECTANTLY FORM THE TIME BEING IN THE HOPE THAT THIS IS A "CONTROLLED" FISTULA AND HOPEFUL WILL HEAL SPONTANEOUSLY WITH NPO AND NUTRITIONAL SUPPORT. WILL WATCH CLOSELY, AFTER A FEW DAYS WILL GET A FISTULOGRAM TO PIN POINT THE ENTERIC ORIGIN OF THE FISTULIZATION. CONTINUE NGT SUCTION AND DRAIN IRRIGATION ORDERED02/05/25 02/05/25 remains sedated and intubated?ventilated, abdomen non distended soft, wound vac in place. TATY drainage serosanguineous 02/08/25 EXTUBATED, GOOD INSPIRATORY EFFORT, BP NML WITHOUT PRESSOR SUPPORT, ABDOMEN SOFT, NON DISTENDED, APPROPRIATELY TENDER, LABS REVIEWED. NO CHANGES TODAY OTHER THAN ALLOW ICE CHIPS PO. WILL ORDER GASTROGRAFIN SMALL BOWEL FOLLOWTHROUGH FOR Friday02/09/25 awake cooperative, wound vac in place, abdomen soft, non distended, appropriately tender, TATY drainage brownish discoloration, will irrigate, her WBC is normal and she is afebrile and normotensive. gastrografin tomorrow 02/10/25 AWAKE,COMFORTABLE, DENIES PAIN, ABDOMEN NON DISTENDED APPROPRIATELY TENDER, WOUND CLEAN AND WELL APPROXIMATED, DRAINS BEING IRRIGATED, LABS OK, GOOD URINE OUTPUT. "SURGICALLY" STABLE 02/11/25 feels well, passing flatus. is hungry, abdomen soft non distended, drainage clearing with irrigation, will wait for Gastrografin small bowel series to be completed, if normal will start po clear liquids 02/12/25 no nausea, change in TATY drainage colort, appears to contaIN, BILE, WILL DC po CLEAR LIQUIDS, CONTINUE ICE CGHIPS, SEND DRAin fluid for amylase and bilirubin, 02/13/25 states she feels well, abdomen non tender, non distended, wound clean and well approximated. drainage slightly clearer, keep npo for now, needs to resume TPN 02/14/25 PATIENT C/O BEING COLD BUT HAS NO PAIN, DRAINAGE SEEMS TO BE CLEARING, SHE HAD A BOWEL MOVEMENTS, ABDOMEN IS SOFT AND NON TENDER, NON DISTENDED, WOUND IS CLEAN AND WELL APPROXIMATED, WILL CONTINUE NPO STATUS AMYLASE ON TATY DRAINAGE FLUID IS GOING TO TAKE SEVERAL DAYS TO BECOME AVAILABLE. CONTINUE TPN 02/16/25 DENIES PAIN,STATES SHE FEELS BETTER, WOUND VAC IN PLACE, ABDOMEN NON TENDER,NON DISTENDED, TATY DRAINAGE SMALL TO MODERATE , WILL CONTINUE IRRIGATING DRAINS, WILL REQUEST GI CONSULT TO CONSIDER ENDOSCOPY. WBC NL,H/H STABLE , ALBUMIN STILL VERY LOW. , 02/17/25 CT SCAN REVIEWED, I SUSPECT THERE IS A SMALL LEAK FROM THE APPEARANCE OF IMAGING ALTHOUGH RADIOLOGIST RECOMMENDED REPEAT CT SCAN (ORDERED). THE DRAINAGE IS SMALL AMOUNT BUT NOW IT IS WITH AN ODOR, I WILL RE INSERT NGT TO ATTEMPT DECREASING THE GASTRIC CONTENTS. ABDOMEN IS SOFT, APPROPRIATELY TENDER, WOUND VAC IN PLACE 02/18/25 AFEBRILE, NORMOTENSIVE4, WBC NL, ALL IMAGING NEGATIVE, ANGIOGRAM SHOWS NO EVIDENCE OF HYPOPERFUSION, CONTRAST AND NON CONTRAST CT SCAN FAILED TO SHOW ANY EVIDENCE OF EXTRAVASATION, THE DRAINAGE CONTINUES TO BE BROWNISH DISCOLORED AND FOULS SMELLING, EXPLAINED TO PT'S SON THAT I HAVE NO EVIDENCE OF ANY GI LEAKAGE, WILL GET A GASTROGRAFIN ENEMA ON FRIDAY, I AM TRYING TO REFRAIN FROM OPERATING ON THE FRAIL ELDERLY PATIENT FOR THE THIRD TIME, SHE WILL NOT TOLERATE ANOTHYER OPERATION WELL. HER ALBUMIN REMAINS VERY LOW.WOUND VAC OK 02/19/25 feels ok,c/o being cold, abdomen soft. non distended, minimally tender, drainage seems to be little less, labs ok, continue as is 02/22/25 she feels well, abdomen is non tender, soft and non distended, drainage slightly less in volume, still discolored,gastrografin enema reviewed by me ( no radiologist/s interpretation available), she has not evacuated the gastrografin according to nurse. 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 will proceed with operation on 02/25/25 at 0715 AM. 02/27/25 SLIGHT IMPROVEMENT, ABDOMEN SOFT, NON DISTENDED, STOMA VIABLE WITHOUT FUNCTION, OK TO TRY GETTING OFF VENTILATOR. 03/01/25 extubated, conversant,oriented, abdomen non distended, appropriately tender, wound clean ans well approximated, drainage serous, stoma viable and with minimal liquid,no gas. will sips of water and ice po 03/02/25 awake comfortable, denies pain, abdomen appropriately tender, wound vac in place, afebrile, normotensive, drainage serosanguineous, cbc stable, stoma viable and with minimal output will resume irrigation of drain 03/03/25 awake ,cooperative, good inspiratory effort, afebrile, normotensive, wound covered with wound vac, drainage serous but cloudy(cultures ordered) abdomen non tender, stoma viable with minimal output. will order gastrografin ugi with small bowel follow throught for tomorow 03/04/25 vital signs stable, good urine output, wound vac ok, abdomen non tender. Xray pending 03/05/25 UGI X RAY SHOWS A NEW AREA OF LEAK,BEING ADEQUATELY DRAINED BY THE TATY DRAIN WHICH IS ADJACENT TO IT, HER ABDOMEN IS NON TENDER. WILL RESUME STRICT NPO STATUS, KEEP NGT TO CONTINUOUS SUCTION, I HAVE CALLED HER SON ILIANA AND EXPLAINED THAT PROBABLY THE INTESTINAL WALL IS NOT HEALING WHENEVER WE PLACE SUTURE AT SITES OF ANASTOMOSES. HER ABDOMEN IS NON TENDER, I WILL TREAT THIS CONSERVATIVELY FOR SOME TIME TO SEE IF THE LEAK MAY SHOW SOME EVIDENCE OF HEALING. YESTERDAY THERE WAS 500 CC OF TATY DRAINAGE. HER ALBUMIN LEVEL IS SLOWLY IMPROVING BUT STILL REMAINS LOW. IT APPEARS THAT THE SUTURES IN HER INTESTINAL ANASTOMOSES HOLD FOR ABOUT A WEEK AND THEN BREAK DOWN. (DRAINAGE TURNED FROM SEROSANGUINEOUS TO GREENISH YESTERDAY. 03/06/25 drainage slightly less in volume, still enteric contents abdomen softn and non tender, non distended. wound vac changed, wound healing, no chjanges for now. discussed with family. 03/08/29 feels better, no pain, abdomen soft and non tender, drainage minimally less, family at bedside, answered questions 03/09/25 son at bedside, patient feels "well" wants to eat, explained that we need to keep her intestine at rest' afebrile, normotensive, drainage less, abdomen non tender, wound vac in p-lace wbc normal today. h/h stable/ continue npo aqnd ngt there is stool in stoma appliance 03/13/25 SLOW IMPROBVEMENT,ABDOMEN NON TENDER, NON DISTENDED, SOME STOOL IN STOMA, DRAINAGE SLIGHTLY LESS VOLUME, CONTINUE IS, NEEDS MOR IV FLUYID (ORDERS GIVEN) Plan discussed with: Patient, Daughter, Son Dietary Evaluation Review Comments: Nutrition Recommendation: 1) TPN to meet at least 75% estimated needs within 7 days 2) Monitor NPO status, lab values, wt trend, I/O Expected Outcomes/Goals: To meet >75% estimated needs Lab values to improve Fu 2-3 days Is there a minimum of two crit: Yes MELVA RAMESH MD Mar 13, 2025 14:12
[2025-03-13] MEDS: D5W/SOD CHL 0.45%/KCL 20MEQ 1,000 ML IV SCH (14:19)
--- NOTE | 2025-03-13 16:04 | DVHPNRES ---
Progress Note Date Seen: Mar 13, 2025 Resident Creating Document: ASHLEY TREJO RESIDENT Has the PT tested + for MRSA If YES, has PT been informed?: No Medical Necessity Reason Pt with a Central, PICC or Fol: Yes The following are medically ne: PICC Line, Leach Catheter Reason for leach catheter: Strict I&O Subjective Review of Systems This is a 80-year-old lady with past medical history of hypertension, AFib (on Eliquis), diabetes type 2, CKD, came to the hospital due to abdominal pain, and constipation. Admitted on 01/13/2025. Found to have peritonitis due to bowel perforation, and underwent emergent laparotomy with subsequent resection of perforated small bowel and enteroenterostomy. Due to abnormal CARMEN drainage, second exploratory laparotomy performed on 02/04 and found to have perforation near to previous perforation area, underwent resection of area with subsequent anastomosis of proximal jejunal loops. 02/09/2025: Patient seen in the [facility]. Continued to be NPO. On 2 L oxygen via nasal cannula. Wound VAC is mild functional, yellowish drainage from incision site, CARMEN drain is functional, draining greenish bile. No signs of fever. No any other night complaints. 02/10/2025: Patient seen and [facility]. Patient is to be continued on NPO. Is on room air, wound care to be done, wet-to-dry. Surgery following, low intermittent suction of NG tube, 130 mL of greenish fluid from CARMEN drain, 50 mL from NG tube noted. Objective vital signs Vital Sign Date Time Temp Pulse Resp B/P (MAP) Pulse Ox O2 Delivery O2 Flow Rate FiO2 03/13/25 15:00 95 18 91/51 (64) 98 03/13/25 12:00 Room Air* 0 21 03/13/25 12:00 98.6 98.6 Total Intake and Output 03/12/25 03/12/25 03/13/25 14:59 22:59 06:59 Intake Total 656 ml 613 ml 474 ml Output Total 500 ml 835 ml Balance 656 ml 113 ml -361 ml medications Current Medications Medications Dose Ordered Sig/Isaura Route Start Time Stop Time Status Last Admin Dose Admin Cefazolin Sodium 50 ml @ 100 mls/hr Q8HR IV 01/13/25 14:00 UNV Vasopressin 20 units/Sodium Chloride 100 ml @ 9 mls/hr Q11H7M IV 01/13/25 18:45 UNV Potassium Chloride 100 ml @ 50 mls/hr Q2H IV 01/16/25 12:45 01/16/25 18:44 UNV Vancomycin HCl 100 ml @ 100 mls/hr DAILY@1200 IV 01/20/25 12:00 UNV Amino Acids 0 ml @ 0 mls/hr PER PHARMACY IV 02/13/25 10:45 Ondansetron HCl 4 mg Q4HPRN PRN IV 02/21/25 09:30 03/12/25 17:08 4 MG Micafungin Sodium 100 mg/Sodium Chloride 100 ml @ 100 mls/hr DAILY IV 02/22/25 10:00 03/13/25 10:35 100 MLS/HR Multi-Ingredient Ointment 1 applic DAILY TOP 02/23/25 10:00 03/13/25 09:04 1 APPLIC Norepinephrine Bitartrate 250 ml @ 3.75 mls/hr Q24H IV 02/25/25 11:45 02/26/25 11:51 7.5 MLS/HR Diagnostic Test (Pha) 1 strip Q4HR 02/26/25 16:00 Cancel Dextrose 50 ml UD PRN IV 02/26/25 14:15 Diagnostic Test (Pha) 1 strip IQ4HR 02/26/25 16:00 UNV Dextrose 50 ml UD PRN IV 02/26/25 16:00 UNV Insulin Human Regular Q6HR SC 03/02/25 12:00 03/13/25 11:52 2 UNITS Pantoprazole Sodium 40 mg BID IV 03/08/25 22:00 03/13/25 09:02 40 MG Levothyroxine Sodium 50 mcg DAILY IV 03/09/25 10:00 03/13/25 09:04 50 MCG Hydromorphone HCl 0.5 mg Q4HPRN PRN IV 03/09/25 15:00 03/13/25 11:53 0.5 MG Piperacillin Sod/ Tazobactam Sod 100 ml @ 25 mls/hr Q8HR IV 03/11/25 14:00 03/13/25 13:46 25 MLS/HR Lidocaine 1 patch DAILY TOP 03/12/25 10:00 03/13/25 09:04 1 PATCH Fat Emulsion Intravenous 150 ml/Sodium Acetate 20 meq/Potassium Acetate 10 meq/ Potassium Phosphate 22 meq/ Multivitamins 10 ml/Insulin Human Regular 5 units/ Amino Acids/ Dextrose/Purified Water 1,380.05 ml @ 57 mls/hr [id number] IV 03/12/25 22:00 03/13/25 21:59 03/12/25 23:59 57 MLS/HR Fat Emulsion Intravenous 150 ml/Sodium Acetate 20 meq/Potassium Acetate 20 meq/ Potassium Phosphate 13.2 meq/Multivitamins 10 ml/Insulin Human Regular 5 units/Amino Acids/ Dextrose/Purified Water 1,383.05 ml @ 57 mls/hr [id number] IV 03/13/25 22:00 03/14/25 21:59 Potassium Chloride/Dextrose/ Sod Cl 1,000 ml @ 50 mls/hr Q20H IV 03/13/25 14:00 03/13/25 14:19 50 MLS/HR Examination Pt is lying on bed General Appearance: Alert and Oriented x2 HEENT: Atraumatic, Mucous membranes moist/pink Respiratory: Clear to auscultation, Normal air movement, No added sounds Cardiovascular: Regular rate, Normal S1, Normal S2, No murmurs Abdominal: Active bowel sounds, Soft, no distention, no tenderness, colostomy bag in place and 1 CARMEN drain with greenish fluid Extremities: There is bilateral upper extremity edema, with seeping fluid Skin: No Significant rash, except past surgical scars Neuro: more alert and oriented Nurse was there as creative services director during examination laboratory and microbiology Laboratory Tests 03/13/25 04:58 Test 03/13/25 04:58 Range/Units Serum Glucose 141 H 74-106 mg/dL Microbiology Date/Time Source Procedure Growth Status 03/07/25 08:32 Blood Blood Culture - Final Staphylococcus epidermidis Complete 03/02/25 16:00 Urine - [place] Urine Culture - Final Complete 03/02/25 16:00 Aspirate Gram Stain - Final Resulted 03/02/25 16:00 Body Fluid Culture - Preliminary Enterococcus faecium - VRE Escherichia coli Resulted 02/25/25 11:48 Sputum Gram Stain - Final Complete 02/25/25 11:48 Sputum Respiratory Culture - Final Complete 01/13/25 17:10 Nose MRSA Screen - Final Complete Problem List/Assessment/Plan Problem List/Assessment/Plan Neurology # Chronic ischemic changes # Chronic Cortical atrophy - Head CT (01/29): Chronic microangiopathy and cortical atrophy. - reintubated on 02/25/25 during surgery # Extubated on 02/28 Cardiovascular # Septic shock secondary to hollow viscus perforation. # Paroxysmal atrial fibrillation with a second-degree hypercoagulable state currently NSR # Chronic diastolic heart failure with preserved EF 65% # Hypertension. - Echocardiogram (01/15): Normal LV EF (65%), mild LVH, mild LV diastolic dysfunction. - Chest X-ray: Bibasilar atelectasis. - ZEFERINO?DS?-VASc score >5 - cardiology on board - initially on Lovenox therapeutic but Dc'd due to low hemoglobin - Labetalol PRN Pulmonary # Acute hypoxic respiratory failure secondary to bilateral pleural effusion/pneumonia s/p re-intubation, status post extubation 02/28 - monitor with daily CXR - Sputum culture 01/29 Presumptive Zoe albicans and : negative - Reintubated on 02/25. - Chest Physiotherapy ongoing. - extubated today Gastrointestinal / Liver # Acute Bacterial Peritonitis due to small bowel perforation vs Perisplenic abscess. s/p multiple laparotomies # Transaminitis secondary to shock. # Anion gap metabolic acidosis due to bowel ischemia and lactic acidosis - CT abdomen/pelvis (02/16): Pneumoperitoneum, extraluminal contrast, perisplenic/subdiaphragmatic collection (7.1 1.1 cm). - Small bowel series (02/11): Normal. - Gastrografin (02/21): [place]-enteric fistula, contrast leak from distal transverse colon. Procedures: - First laparotomy (01/13): Resection of perforated small bowel, enteroenterostomy. - Second laparotomy (02/04): Resection near previous perforation, jejunal anastomosis. - Third laparotomy (02/25): Resection of distal ileum, end-to-end anastomosis, ileostomy. Cultures: - Peritoneal fluid (01/13): E. coli, Klebsiella pneumoniae (sensitive to meropenem). - Peritoneal fluid (02/17): E. coli, Stenotrophomonas maltophilia. - IR-guided pigtail drain placed; drained 50 cc purulent fluid. - CARMEN drains placed in 4 quadrants initially and now patient has only 1 CARMEN drain - Initially NPO, TPN initiated. - NG tube placed. - IV antimicrobials Daptomycin meropenem and micafungin - Initially patient is on Levofloxacin, Flagyl (02/03); Vancomycin and Meropenem (); Meropenem (); Vancomycin () then eventually switched to above antimicrobials - Started Daptomycin (03/08), Bactrim stopped (03/08) -Gastrografin scan(03/05) showed Contrast extravasation is seen in the proximal small bowel, possibly left sided jejunum near the surgical drain can be seen with a leak. -patient kept NPO Genitourinary / Kidney # ISRRAEL likely secondary to shock/volume depletion- resolved - Nephrology consulted for ISRRAEL. Endocrine # Hypothyroidism: TSH 42.29, low T4 # Type 2 diabetes mellitus: HbA1c 8.2%.- # Episodes of hypoglycemia. # Hypothyroidism - continuously monitoring blood glucose and on ISS - Started on Levothyroxine 50 daily Metabolic Hypokalemia. Hyperkalemia. Hyponatremia: D5W at 75 mL/hr per nephrology. Hypophosphatemia: given IV phosphate Nutrition: Severe protein malnutrition. Hematology # Acute on chronic anemia (hemodilution/post-surgical). # Severe thrombocytopenia, HIT # Acute DVT of right upper extremity. - Ultrasound (01/17): Partial thrombus in right internal jugular and cephalic veins. - hemoglobin today 6.9, transfused 1 more unit of PRBC 02/28 - Transfused total 8 units PRBC, 2 platelet units. - continuously monitor H&H - hold blood thinners Musculoskeletal / Skin # Rib fracture due to fall. Nutrition: TPN initiated. Bowel Regimen: As needed. GI Prophylaxis: Pantoprazole bid DVT Prophylaxis: Lovenox (held/ Dc'd due to low hemoglobin). Lines / Tubes / Devices Airway: Intubated on 01/14, extubated on 02/07, reintubated on 02/25 extubated 02/28 Vascular Access: PICC line placed in right upper thigh on 01/26. Drips: Dc'd pressors and sedatives. Urinary: Leach catheter placed on 01/14, exchanged on 02/14. CARMEN drains in 1 quadrant. Goals of care addressed with patient's family members for more than 29 minutes: Full code status Care plan updated to the patient family Chris (son) on bedside and addressed all concerns Critical care time spent more than 83 minutes excluding procedures and including discussion with the family Case discussed with Dr. Carvalho and RN Plan discussed with: Son Dietary Evaluation Review Comments: Nutrition Recommendation: 1) TPN to meet at least 75% estimated needs within 7 days 2) Monitor NPO status, lab values, wt trend, I/O Expected Outcomes/Goals: To meet >75% estimated needs Lab values to improve Fu 2-3 days Is there a minimum of two crit: Yes CC Plasma Assessment Blood Product Administration S: [id number] ASHLEY TREJO RESIDENT Mar 13, 2025 16:04
[2025-03-13] MEDS: TPN PER PHARMACY IV NR (22:07)
--- NOTE | 2025-03-13 22:47 | DVHPN2 ---
Subjective DOS: 03/13/2025 Patient seen and examined at bedside. Remains on supplemental oxygen Overnight events reviewed. HPI: A 80-year-old woman with past medical history of diabetes mellitus who presented to the ED on 01/13/25 with c/o abdominal pain x4 days. Patient reported 8 - 9/10 pain that was sharp and constant, throughout her abdomen. She did note pain medications make it better. Patient admitted to being noncompliant with her Eliquis for the past 2 weeks. Patient denied any fever, chills, chest pain, shortness of breath, or other acute complaints. She reported falling on her left side on January 06, 2025. Patient does not use home oxygen. Patient was admitted for further care, subsequently found to have perforated bowel and underwent exploratory laparotomy with repair of bowel perforation. Pulmonary consultation was requested for evaluation and management due to acute hypoxic respiratory failure requiring mechanical ventilator. Past Medical History: Diabetes mellitus Past Surgical History: , Hernia Repair Medications: Reviewed. Allergies: No known drug allergies. Family History: Arthritis. No family history of premature CAD. No family history of lung disorders. Social History: Nonsmoker. No alcohol or illicit drug use. Reviewed: Care Plan, H&P Changes from previous H/P or p: No Changes Gastrointestinal: Abdominal Pain Objective Vitals Vital Signs Date Time Temp Pulse Resp B/P (MAP) Pulse Ox O2 Delivery O2 Flow Rate FiO2 03/13/25 20:00 101 17 99 Room Air* 0 21 03/13/25 18:00 92/52 (65) 03/13/25 17:00 98.8 98.8 Intake/Output Intake and Output 03/13/25 07:00 Intake Total 1718 ml Output Total 1335 ml Balance 383 ml IV Total 1718 ml Output Urine Total 1050 ml Gastric Drainage Total 285 ml General Appearance: Alert, Oriented X3, No acute distress, Other HEENT: Atraumatic, Mucous membr. moist/pink Neck: Supple Lungs: Clear to auscultation, Other (Decreased air entry bilaterally) Cardiovascular: Regular rate, Normal S1, Normal S2, No murmurs, Gallops, Rubs Abdomen: Normal bowel sounds, Soft, No tenderness Extremities: No clubbing, No cyanosis, No edema Neuro: Strength at 5/5 X4 ext, Sensation intact, Cranial nerves 3-12 NL Psych/Mental Status: Mental status NL, Mood NL Medications Current Medications Medications Dose Ordered Sig/Isaura Route Start Time Stop Time Status Last Admin Dose Admin Cefazolin Sodium 50 ml @ 100 mls/hr Q8HR IV 01/13/25 14:00 UNV Vasopressin 20 units/Sodium Chloride 100 ml @ 9 mls/hr Q11H7M IV 01/13/25 18:45 UNV Potassium Chloride 100 ml @ 50 mls/hr Q2H IV 01/16/25 12:45 01/16/25 18:44 UNV Vancomycin HCl 100 ml @ 100 mls/hr DAILY@1200 IV 01/20/25 12:00 UNV Amino Acids 0 ml @ 0 mls/hr PER PHARMACY IV 02/13/25 10:45 Ondansetron HCl 4 mg Q4HPRN PRN IV 02/21/25 09:30 03/12/25 17:08 4 MG Micafungin Sodium 100 mg/Sodium Chloride 100 ml @ 100 mls/hr DAILY IV 02/22/25 10:00 03/13/25 10:35 100 MLS/HR Multi-Ingredient Ointment 1 applic DAILY TOP 02/23/25 10:00 03/13/25 09:04 1 APPLIC Norepinephrine Bitartrate 250 ml @ 3.75 mls/hr Q24H IV 02/25/25 11:45 02/26/25 11:51 7.5 MLS/HR Diagnostic Test (Pha) 1 strip Q4HR 02/26/25 16:00 Cancel Dextrose 50 ml UD PRN IV 02/26/25 14:15 Diagnostic Test (Pha) 1 strip IQ4HR 02/26/25 16:00 UNV Dextrose 50 ml UD PRN IV 02/26/25 16:00 UNV Insulin Human Regular Q6HR SC 03/02/25 12:00 03/13/25 17:37 3 UNITS Pantoprazole Sodium 40 mg BID IV 03/08/25 22:00 03/13/25 22:08 40 MG Levothyroxine Sodium 50 mcg DAILY IV 03/09/25 10:00 03/13/25 09:04 50 MCG Hydromorphone HCl 0.5 mg Q4HPRN PRN IV 03/09/25 15:00 03/13/25 16:07 0.5 MG Piperacillin Sod/ Tazobactam Sod 100 ml @ 25 mls/hr Q8HR IV 03/11/25 14:00 03/13/25 22:02 25 MLS/HR Lidocaine 1 patch DAILY TOP 03/12/25 10:00 03/13/25 09:04 1 PATCH Fat Emulsion Intravenous 150 ml/Sodium Acetate 20 meq/Potassium Acetate 20 meq/ Potassium Phosphate 13.2 meq/Multivitamins 10 ml/Insulin Human Regular 5 units/Amino Acids/ Dextrose/Purified Water 1,383.05 ml @ 57 mls/hr [id number] IV 03/13/25 22:00 03/14/25 21:59 03/13/25 22:07 57 MLS/HR Potassium Chloride/Dextrose/ Sod Cl 1,000 ml @ 50 mls/hr Q20H IV 03/13/25 14:00 03/13/25 14:19 50 MLS/HR Laboratory Results Laboratory Tests 03/13/25 04:58 Chemistry Test 03/13/25 04:58 Albumin 2.5 g/dL (3.2-4.8) L Calcium Level 9.0 mg/dL (8.7-10.4) Magnesium Level 1.9 mg/dL (1.6-2.6) Phosphorus Level 3.7 mg/dL (2.4-5.1) Total Protein 5.8 g/dL (5.7-8.2) LFT Test 03/13/25 04:58 Alanine Aminotransferase (ALT) 48 U/L (7-40) H Alkaline Phosphatase 218 U/L (46-116) H Aspartate Amino Transferase (AST) 56 U/L (13-40) H Total Bilirubin 3.3 mg/dL (0.2-1.0) H Urinalysis Test 01/14/25 02:00 Urine Color Yellow (Yellow) Urine Clarity Turbid (Clear) H Urine pH 6.0 (5.0-9.0) Urine Specific [place] 1.016 (1.001-1.035) Urine Protein 1+ (Negative) H Urine Ketones Trace (Negative) Urine Blood 1+ /uL (Negative) H Urine Nitrite Negative (Negative) Urine Bilirubin Negative (Negative) Urine Urobilinogen Normal mg/dL (Negative) Urine Leukocyte Esterase Negative /uL (Negative) Urine RBC 10 /hpf (0 - 4) Urine Microscopic WBC 2 /HPF (0-5) Urine Squamous Epithelial Cells Few /hpf (<5) Urine Amorphous Crystals Few /hpf (None Seen) Urine Bacteria None seen /hpf (None Seen) Urine Creatinine 34.09 mg/dL (30.0-125.0) Urine Protein/Creatinine Ratio 3.85 Urine Sodium 76 mmol/L (40-220) Urine Glucose Normal mg/dL (Normal) Urine Total Protein 131.1 mg/dL (1-14) H Microbiology Microbiology Date/Time Source Procedure Growth Status 03/07/25 08:32 Blood Blood Culture - Final Staphylococcus epidermidis Complete 03/02/25 16:00 Urine - [place] Urine Culture - Final Complete 03/02/25 16:00 Aspirate Gram Stain - Final Resulted 03/02/25 16:00 Body Fluid Culture - Preliminary Enterococcus faecium - VRE Escherichia coli Resulted 02/25/25 11:48 Sputum Gram Stain - Final Complete 02/25/25 11:48 Sputum Respiratory Culture - Final Complete 01/13/25 17:10 Nose MRSA Screen - Final Complete Assessment/Plan Assessment/Plan Impression: Acute hypoxic respiratory failure Atelectasis Pleural effusion Acute metabolic encephalopathy secondary to acute hypoxic respiratory failure Pulmonary edema due to chronic heart failure with preserved ejection fraction Perforation of small bowel status post exploratory laparotomy Acute on chronic kidney disease secondary to shock, vasomotor nephropathy Anemia Sepsis with septic shock secondary to perforation of small bowel Events: Currently breathing on room air No distress Patient to be continued on NPO. Wound care, wet-to-dry. Surgery following, low intermittent suction of NG tube, 130 mL of greenish fluid from CARMEN drain, 50 mL from NG tube noted. No signs of fever. No other overnight events. Continue to monitor drainage from NG tube, CARMEN drain. Follow up Surgery recommendations Continue physical therapy. HOB elevation Aspiration precautions Continue antibiotics/antifungal coverage ID recommendations appreciated. TPN for nutritional support Labs reviewed. Hemoglobin stable at 9.0 g/dL Continue to monitor hemoglobin Transfuse if less than 7.0 g/dL. Pain control Avoid oversedation Wound care. Physical Therapy Gastrografin study, positive for leak. Study demonstrated contrast extravasation is seen in the proximal small bowel, possibly left sided jejunum near the surgical drain can be seen with a leak. Poor wound healing, leakage noted. Patient NPO due to leak. GI recs appreciated. Labs and imaging reviewed. Rest of plan as noted below. Plan: S/p extubation on 03/02/25 Supplemental oxygen PRN Titrate to keep O2 sats above 92%. Continue antibiotics. F/u cultures. Continue antifungal TPN for nutritional support Monitor renal function due to acute kidney injury. Monitor electrolytes. Supplement as necessary. Monitor ins and outs Monitor hemoglobin Transfuse if less than 7.0 g/dL. Follow up GI recommendations Follow up Surgery recommendations Wound care Nutritional support. Accu-Cheks, ISS. GI/DVT prophylaxis. Prognosis: Poor given multiple comorbidities. Rest of plan per hospitalist and other consultants. Thank you for allowing me to participate in this patient's care. Further recommendations will depend on patient's clinical course. Please do not hesitate to contact me if you have any questions or concerns. This medical document was created using an electronic medical record system with truedash dictation system. Although this document has been carefully reviewed, there may still be some phonetic and typographical errors. These areas are purely typographical due to imperfections of the software programs, and do not reflect any compromise in the patient's medical care. Plan discussed with: Patient, Other (RN Bhumika) Visit Coding Pulmonary Billing Provider: MORA LANGSTON MD Date of Service if different f: Mar 13, 2025 Common Visit Codes: [id number] INP/OBS CARE(HIGH) MORA LANGSTON MD Mar 13, 2025 22:47
[2025-03-14] VITALS (25 sets, daily range): BP systolic 86–112; BP diastolic 37–62; PULSE 90–110; RESP 12–29; TEMP 98–99.4; O2SAT 88–100
[2025-03-14 07:42] LABS: Hematocrit 24.9 % (36.0-46.0); Hemoglobin 8.5 g/dL (12.2-16.2); Mean Corpuscular Hemoglobin 33.3 pg (28.0-32.0); Mean Corpuscular Volume 98.1 fL (80.0-100.0)
[2025-03-14 07:53] LABS: Alanine Aminotransferase 38 U/L (7-40); Anion Gap 12 (5-15); BUN/Creatinine Ratio 27.6 (10.0-20.0); Calcium 9.0 mg/dL (8.7-10.4); Carbon Dioxide 20 mmol/L (20-31); Chloride 105 mmol/L (98-107); Magnesium 1.9 mg/dL (1.6-2.6); Potassium 3.7 mmol/L (3.5-5.1); Sodium 137 mmol/L (136-145)
[2025-03-14 07:54] LABS: Albumin 2.4 g/dL (3.2-4.8); Alkaline Phosphatase 183 U/L (46-116); Bilirubin, Total 3.3 mg/dL (0.2-1.0); Blood Urea Nitrogen 34 mg/dL (9-23); Glucose 144 mg/dL (74-106); Total Protein 5.7 g/dL (5.7-8.2)
[2025-03-14 08:49] LABS: Anisocytosis Slight; Smudge Cells 1 /100 WBC
[2025-03-14 08:50] LABS: Total Cells Counted 100.0 (100)
--- NOTE | 2025-03-14 11:25 | DVHPN2 ---
Subjective Date Seen: Mar 14, 2025 Post op day Post op day: 13 Patient reports: Feels better (on 4 of levohed, no fevers overnight) Objective Vitals Vital Sign Date Time Temp Pulse Resp B/P (MAP) Pulse Ox O2 Delivery O2 Flow Rate FiO2 03/14/25 09:05 102 16 105/62 03/14/25 08:00 98.8 96 98.8 03/14/25 08:00 Room Air* 0 21 Total Intake and Output 03/13/25 03/13/25 03/14/25 15:00 23:00 07:00 Intake Total 790 ml 981 ml 981 ml Output Total 730 ml 1220 ml Balance 790 ml 251 ml -239 ml Medications Current Medications Medications Dose Ordered Sig/Isaura Route Start Time Stop Time Status Last Admin Dose Admin Cefazolin Sodium 50 ml @ 100 mls/hr Q8HR IV 01/13/25 14:00 UNV Vasopressin 20 units/Sodium Chloride 100 ml @ 9 mls/hr Q11H7M IV 01/13/25 18:45 UNV Potassium Chloride 100 ml @ 50 mls/hr Q2H IV 01/16/25 12:45 01/16/25 18:44 UNV Vancomycin HCl 100 ml @ 100 mls/hr DAILY@1200 IV 01/20/25 12:00 UNV Amino Acids 0 ml @ 0 mls/hr PER PHARMACY IV 02/13/25 10:45 Ondansetron HCl 4 mg Q4HPRN PRN IV 02/21/25 09:30 03/12/25 17:08 4 MG Micafungin Sodium 100 mg/Sodium Chloride 100 ml @ 100 mls/hr DAILY IV 02/22/25 10:00 03/14/25 10:44 100 MLS/HR Multi-Ingredient Ointment 1 applic DAILY TOP 02/23/25 10:00 03/14/25 10:24 1 APPLIC Norepinephrine Bitartrate 250 ml @ 3.75 mls/hr Q24H IV 02/25/25 11:45 02/26/25 11:51 7.5 MLS/HR Diagnostic Test (Pha) 1 strip Q4HR 02/26/25 16:00 Cancel Dextrose 50 ml UD PRN IV 02/26/25 14:15 Diagnostic Test (Pha) 1 strip IQ4HR 02/26/25 16:00 UNV Dextrose 50 ml UD PRN IV 02/26/25 16:00 UNV Insulin Human Regular Q6HR SC 03/02/25 12:00 03/14/25 05:46 2 UNITS Pantoprazole Sodium 40 mg BID IV 03/08/25 22:00 03/14/25 10:20 40 MG Levothyroxine Sodium 50 mcg DAILY IV 03/09/25 10:00 03/14/25 10:21 50 MCG Hydromorphone HCl 0.5 mg Q4HPRN PRN IV 03/09/25 15:00 03/14/25 08:45 0.5 MG Piperacillin Sod/ Tazobactam Sod 100 ml @ 25 mls/hr Q8HR IV 03/11/25 14:00 03/14/25 05:47 25 MLS/HR Lidocaine 1 patch DAILY TOP 03/12/25 10:00 03/14/25 10:21 1 PATCH Fat Emulsion Intravenous 150 ml/Sodium Acetate 20 meq/Potassium Acetate 20 meq/ Potassium Phosphate 13.2 meq/Multivitamins 10 ml/Insulin Human Regular 5 units/Amino Acids/ Dextrose/Purified Water 1,383.05 ml @ 57 mls/hr [id number] IV 03/13/25 22:00 03/14/25 21:59 03/13/25 22:07 57 MLS/HR Potassium Chloride/Dextrose/ Sod Cl 1,000 ml @ 50 mls/hr Q20H IV 03/13/25 14:00 03/14/25 10:20 50 MLS/HR Fat Emulsion Intravenous 150 ml/Sodium Acetate 40 meq/Potassium Acetate 20 meq/ Potassium Phosphate 22 meq/ Magnesium Sulfate 4 meq/ Multivitamins 10 ml/Chromium/ Copper/Manganese/ Zinc 1 ml/Insulin Human Regular 5 units/Amino Acids/ Dextrose/Purified Water 1,397.05 ml @ 58 mls/hr Q24H6M IV 03/14/25 22:00 03/15/25 21:59 Labs and Microbiology Laboratory Tests 03/14/25 06:05 Test 03/14/25 06:05 Range/Units Serum Glucose 144 H 74-106 mg/dL Ass/Plan Labs and/or images reviewed: Labs reviewed by me, Image(s) reviewed by me Problem List Neurology # Chronic ischemic changes # Chronic Cortical atrophy - Head CT (01/29): Chronic microangiopathy and cortical atrophy. - reintubated on 02/25/25 during surgery # Extubated on 02/28 Cardiovascular # Septic shock secondary to hollow viscus perforation. # Paroxysmal atrial fibrillation with a second-degree hypercoagulable state currently NSR # Chronic diastolic heart failure with preserved EF 65% # Hypertension. - Echocardiogram (01/15): Normal LV EF (65%), mild LVH, mild LV diastolic dysfunction. - Chest X-ray: Bibasilar atelectasis. - ZEFERINO?DS?-VASc score >5 - cardiology on board - initially on Lovenox therapeutic but Dc'd due to low hemoglobin - Labetalol PRN Pulmonary # Acute hypoxic respiratory failure secondary to bilateral pleural effusion/pneumonia s/p re-intubation, status post extubation 02/28 - monitor with daily CXR - Sputum culture 01/29 Presumptive Zoe albicans and : negative - Reintubated on 02/25. - Chest Physiotherapy ongoing. - extubated today Gastrointestinal / Liver # Acute Bacterial Peritonitis due to small bowel perforation vs Perisplenic abscess. s/p multiple laparotomies # Transaminitis secondary to shock. # Anion gap metabolic acidosis due to bowel ischemia and lactic acidosis - CT abdomen/pelvis (02/16): Pneumoperitoneum, extraluminal contrast, perisplenic/subdiaphragmatic collection (7.1 1.1 cm). - Small bowel series (02/11): Normal. 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 Procedures: - First laparotomy (01/13): Resection of perforated small bowel, enteroenterostomy. - Second laparotomy (02/04): Resection near previous perforation, jejunal anastomosis. - Third laparotomy (02/25): Resection of distal ileum, end-to-end anastomosis, ileostomy. Cultures: - Peritoneal fluid (01/13): E. coli, Klebsiella pneumoniae (sensitive to meropenem). - Peritoneal fluid (02/17): E. coli, Stenotrophomonas maltophilia. - IR-guided pigtail drain placed; drained 50 cc purulent fluid. - CARMEN drains placed in 4 quadrants initially and now patient has only 1 CARMEN drain - Initially NPO, TPN initiated. - NG tube placed. - IV antimicrobials Daptomycin meropenem and micafungin - Initially patient is on Levofloxacin, Flagyl (02/03); Vancomycin and Meropenem (); Meropenem (); Vancomycin () then eventually switched to above antimicrobials - Started Daptomycin (03/08), Bactrim stopped (03/08) -Gastrografin scan(03/05) showed Contrast extravasation is seen in the proximal small bowel, possibly left sided jejunum near the surgical drain can be seen with a leak. -patient kept NPO Genitourinary / Kidney # ISRRAEL likely secondary to shock/volume depletion- resolved - Nephrology consulted for ISRRAEL. Endocrine # Hypothyroidism: TSH 42.29, low T4 # Type 2 diabetes mellitus: HbA1c 8.2%.- # Episodes of hypoglycemia. # Hypothyroidism - continuously monitoring blood glucose and on ISS - Started on Levothyroxine 50 daily Metabolic Hypokalemia. Hyperkalemia. Hyponatremia: D5W at 75 mL/hr per nephrology. Hypophosphatemia: given IV phosphate Nutrition: Severe protein malnutrition. Hematology # Acute on chronic anemia (hemodilution/post-surgical). # Severe thrombocytopenia, HIT # Acute DVT of right upper extremity. - Ultrasound (01/17): Partial thrombus in right internal jugular and cephalic veins. - hemoglobin today 6.9, transfused 1 more unit of PRBC 02/28 - Transfused total 8 units PRBC, 2 platelet units. - continuously monitor H&H - hold blood thinners Musculoskeletal / Skin # Rib fracture due to fall. Nutrition: TPN initiated. Bowel Regimen: As needed. GI Prophylaxis: Pantoprazole bid DVT Prophylaxis: Lovenox (held/ Dc'd due to low hemoglobin). Lines / Tubes / Devices Airway: Intubated on 01/14, extubated on 02/07, reintubated on 02/25 extubated 02/28 Vascular Access: PICC line placed in right upper thigh on 01/26. Drips: Dc'd pressors and sedatives. Urinary: Perez catheter placed on 01/14, exchanged on 02/14. CARMEN drains in 1 quadrant. Goals of care addressed with patient's family members for more than 29 minutes: Full code status Care plan updated to the patient family Chris (son) on bedside and addressed all concerns Critical care time spent more than 83 minutes excluding procedures and including discussion with the family Case discussed with Dr. Carvalho and telegraph service clerk/Plan 01/19/25 s/p Exploratory laparotomy, lysis of adhesions, extensive lavage, resection of perforated small bowel, enteroenterostomy. unchanged from yesterday abdomen soft, non distended, CARMEN drainage clear serous, no bowel activity, febrile, urine output ok, continues with thrombocytopenia, Plan: continue current treatment discussed with Dr. Christy 01/21/2025 s/p Exploratory laparotomy, lysis of adhesions, extensive lavage, resection of perforated small bowel, enteroenterostomy. abdomen soft, non distended, CARMEN drainage clear serous, no bowel activity, urine output ok, platelet count improved albumin low off pressors blood culture , gram negative rods Plan: continue meropenem antibiotics albumin x3 discussed with Dr. Christy 01/22/2025 s/p Exploratory laparotomy, lysis of adhesions, extensive lavage, resection of perforated small bowel, enteroenterostomy. abdomen soft, non distended, CARMEN drainage clear serous, no bowel activity, urine output ok, platelet count improved blood culture , gram positive rods labs reviewed Plan: continue with current treatment discussed with Dr. Christy 01/24/2025 s/p Exploratory laparotomy, lysis of adhesions, extensive lavage, resection of perforated small bowel, enteroenterostomy. abdomen soft, non distended, CARMEN drainage clear serous, no bowel activity, urine output ok, platelet count improved labs reviewed Plan: small bowel series discussed with Dr. Christy 01/31/2025 s/p Exploratory laparotomy, lysis of adhesions, extensive lavage, resection of perforated small bowel, enteroenterostomy. abdomen soft, non distended, CARMEN drainage brownish, urine output ok labs reviewed Plan: small bowel series on Friday discussed with Dr. Christy 02/06/2025 Surgery: Exploratory laparotomy, lysis of adhesions, evacuation of pelvic and abdominal infection, resection of proximal jejunum, ileostomy, and jejunostomy. Post-Op Day: 2 Notes and labs were reviewed. Hemoglobin was 6.6 this morning, and a blood transfusion is currently being administered. Physical Exam: - Currently intubated and receiving fentanyl without other sedation. - Abdomen is soft and nondistended. - Minimal serosanguineous fluid is noted in the CARMEN drains. - The wound VAC has minimal sanguineous output. The wound is clean. Plan: - Continue current treatment. - Discussed case with Dr. Christy no changes to the plan of care at this time. 02/26/25 labs reviewed patient intubated , sedated abdomen soft, non distended wound vac stoma ok drain serous fluid Plan: continue current treatment 02/28/25 - Patient is intubated and responds to stimuli. no changes from yesterday : Abdomen is soft and non-distended. Stoma is pink. The wound is clean, dry, and intact with a wound vac in place. CARMEN drains have serous fluid output. - Investigations with results: Hemoglobin is low. Plan: - Treatment planned: Receiving one unit of packed red blood cells. CPAP today. Continue current treatment plan 03/10/2025 patient states feeling well : Abdomen is soft and non-distended. fecal matter in stoma bag . The wound is clean, dry, and intact with a wound vac in place. CARMEN drains have brown fluid. -WBC normal Plan: continue current treatment 03/11/25 patient states feeling well : Abdomen is soft and non-distended. fecal matter in stoma bag . The wound is clean, dry, and intact with a wound vac in place. CARMEN drain brown fluid. output over night 60cc -WBC normal Plan: continue current treatment 03/14/2025 patient states feeling well : Abdomen is soft and non-distended. fecal matter in stoma bag CARMEN drain out put decreased brown fluid. labs notes reviewed, discussed with Dr. Christy Plan: clamp NG tube NPO continue TPN Prognosis: Good, Poor Plan discussed with patient, son , Dr. Christy Visit Coding Surgery Date of Service if different f: Mar 14, 2025 Billing Provider: MELVA CHRISTY MD Surgery Visit Codes: [id number] INP/OBS CARE(HIGH) CLAYTON POWERS NP Mar 14, 2025 11:25
--- NOTE | 2025-03-14 12:18 | DVHPNRES ---
Progress Note Date Seen: Mar 14, 2025 Resident Creating Document: ASHLEY TREJO RESIDENT Has the PT tested + for MRSA If YES, has PT been informed?: No Medical Necessity Reason Pt with a Central, PICC or Fol: Yes The following are medically ne: PICC Line, Leach Catheter Reason for leach catheter: Strict I&O Subjective Review of Systems This is a 80-year-old lady with past medical history of hypertension, AFib (on Eliquis), diabetes type 2, CKD, came to the hospital due to abdominal pain, and constipation. Admitted on 01/13/2025. Found to have peritonitis due to bowel perforation, and underwent emergent laparotomy with subsequent resection of perforated small bowel and enteroenterostomy. Due to abnormal CARMEN drainage, second exploratory laparotomy performed on 02/04 and found to have perforation near to previous perforation area, underwent resection of area with subsequent anastomosis of proximal jejunal loops. 02/09/2025: Patient seen in the [facility]. Continued to be NPO. On 2 L oxygen via nasal cannula. Wound VAC is mild functional, yellowish drainage from incision site, CARMEN drain is functional, draining greenish bile. No signs of fever. No any other night complaints. 02/10/2025: Patient seen and [facility]. Patient is to be continued on NPO. Is on room air, wound care to be done, wet-to-dry. Surgery following, low intermittent suction of NG tube, 130 mL of greenish fluid from CARMEN drain, 50 mL from NG tube noted. 02/11/2025: Patient seen in [facility]. Patient is to be continued on NPO, is on room air, wound care is wet-to-dry, patient is getting TPN, had 145 removal of greenish drainage from CARMEN drain. Patient has nonblanching redness on sacrum. Today she came complains of 8/10 pain in the abdomen and back. NG tube was clamped. Following surgery Objective vital signs Vital Sign Date Time Temp Pulse Resp B/P (MAP) Pulse Ox O2 Delivery O2 Flow Rate FiO2 03/14/25 10:00 96 18 99/59 (72) 98 03/14/25 08:00 98.8 98.8 03/14/25 08:00 Room Air* 0 21 Total Intake and Output 03/13/25 03/13/25 03/14/25 15:00 23:00 07:00 Intake Total 790 ml 981 ml 981 ml Output Total 730 ml 1220 ml Balance 790 ml 251 ml -239 ml medications Current Medications Medications Dose Ordered Sig/Isaura Route Start Time Stop Time Status Last Admin Dose Admin Cefazolin Sodium 50 ml @ 100 mls/hr Q8HR IV 01/13/25 14:00 UNV Vasopressin 20 units/Sodium Chloride 100 ml @ 9 mls/hr Q11H7M IV 01/13/25 18:45 UNV Potassium Chloride 100 ml @ 50 mls/hr Q2H IV 01/16/25 12:45 01/16/25 18:44 UNV Vancomycin HCl 100 ml @ 100 mls/hr DAILY@1200 IV 01/20/25 12:00 UNV Amino Acids 0 ml @ 0 mls/hr PER PHARMACY IV 02/13/25 10:45 Ondansetron HCl 4 mg Q4HPRN PRN IV 02/21/25 09:30 03/12/25 17:08 4 MG Micafungin Sodium 100 mg/Sodium Chloride 100 ml @ 100 mls/hr DAILY IV 02/22/25 10:00 03/14/25 10:44 100 MLS/HR Multi-Ingredient Ointment 1 applic DAILY TOP 02/23/25 10:00 03/14/25 10:24 1 APPLIC Norepinephrine Bitartrate 250 ml @ 3.75 mls/hr Q24H IV 02/25/25 11:45 02/26/25 11:51 7.5 MLS/HR Diagnostic Test (Pha) 1 strip Q4HR 02/26/25 16:00 Cancel Dextrose 50 ml UD PRN IV 02/26/25 14:15 Diagnostic Test (Pha) 1 strip IQ4HR 02/26/25 16:00 UNV Dextrose 50 ml UD PRN IV 02/26/25 16:00 UNV Insulin Human Regular Q6HR SC 03/02/25 12:00 03/14/25 12:11 3 UNITS Pantoprazole Sodium 40 mg BID IV 03/08/25 22:00 03/14/25 10:20 40 MG Levothyroxine Sodium 50 mcg DAILY IV 03/09/25 10:00 03/14/25 10:21 50 MCG Hydromorphone HCl 0.5 mg Q4HPRN PRN IV 03/09/25 15:00 03/14/25 08:45 0.5 MG Piperacillin Sod/ Tazobactam Sod 100 ml @ 25 mls/hr Q8HR IV 03/11/25 14:00 03/14/25 05:47 25 MLS/HR Lidocaine 1 patch DAILY TOP 03/12/25 10:00 03/14/25 10:21 1 PATCH Fat Emulsion Intravenous 150 ml/Sodium Acetate 20 meq/Potassium Acetate 20 meq/ Potassium Phosphate 13.2 meq/Multivitamins 10 ml/Insulin Human Regular 5 units/Amino Acids/ Dextrose/Purified Water 1,383.05 ml @ 57 mls/hr [id number] IV 03/13/25 22:00 03/14/25 21:59 03/13/25 22:07 57 MLS/HR Potassium Chloride/Dextrose/ Sod Cl 1,000 ml @ 50 mls/hr Q20H IV 03/13/25 14:00 03/14/25 10:20 50 MLS/HR Fat Emulsion Intravenous 150 ml/Sodium Acetate 40 meq/Potassium Acetate 20 meq/ Potassium Phosphate 22 meq/ Magnesium Sulfate 4 meq/ Multivitamins 10 ml/Chromium/ Copper/Manganese/ Zinc 1 ml/Insulin Human Regular 5 units/Amino Acids/ Dextrose/Purified Water 1,397.05 ml @ 58 mls/hr Q24H6M IV 03/14/25 22:00 03/15/25 21:59 Examination Pt is lying on bed General Appearance: Alert and Oriented x2 HEENT: Atraumatic, Mucous membranes moist/pink Respiratory: Clear to auscultation, Normal air movement, No added sounds Cardiovascular: Regular rate, Normal S1, Normal S2, No murmurs Abdominal: Active bowel sounds, Soft, no distention, no tenderness, colostomy bag in place and 1 CARMEN drain with greenish fluid Extremities: There is bilateral upper extremity edema, with seeping fluid Skin: No Significant rash, except past surgical scars Neuro: more alert and oriented Nurse was there as injury/safety hazard assessment during examination laboratory and microbiology Laboratory Tests 03/14/25 06:05 Test 03/14/25 06:05 Range/Units Serum Glucose 144 H 74-106 mg/dL Microbiology Date/Time Source Procedure Growth Status 03/07/25 08:32 Blood Blood Culture - Final Staphylococcus epidermidis Complete 03/02/25 16:00 Urine - [place] Urine Culture - Final Complete 03/02/25 16:00 Aspirate Gram Stain - Final Resulted 03/02/25 16:00 Body Fluid Culture - Preliminary Enterococcus faecium - VRE Escherichia coli Resulted 02/25/25 11:48 Sputum Gram Stain - Final Complete 02/25/25 11:48 Sputum Respiratory Culture - Final Complete 01/13/25 17:10 Nose MRSA Screen - Final Complete Problem List/Assessment/Plan Problem List/Assessment/Plan Neurology # Chronic ischemic changes # Chronic Cortical atrophy - Head CT (01/29): Chronic microangiopathy and cortical atrophy. - reintubated on 02/25/25 during surgery # Extubated on 02/28 Cardiovascular # Septic shock secondary to hollow viscus perforation. # Paroxysmal atrial fibrillation with a second-degree hypercoagulable state currently NSR # Chronic diastolic heart failure with preserved EF 65% # Hypertension. - Echocardiogram (01/15): Normal LV EF (65%), mild LVH, mild LV diastolic dysfunction. - Chest X-ray: Bibasilar atelectasis. - ZEFERINO?DS?-VASc score >5 - cardiology on board - initially on Lovenox therapeutic but Dc'd due to low hemoglobin - Labetalol PRN Pulmonary # Acute hypoxic respiratory failure secondary to bilateral pleural effusion/pneumonia s/p re-intubation, status post extubation 02/28 - monitor with daily CXR - Sputum culture 01/29 Presumptive Zoe albicans and : negative - Reintubated on 02/25. - Chest Physiotherapy ongoing. - extubated today Gastrointestinal / Liver # Acute Bacterial Peritonitis due to small bowel perforation vs Perisplenic abscess. s/p multiple laparotomies # Transaminitis secondary to shock. # Anion gap metabolic acidosis due to bowel ischemia and lactic acidosis - CT abdomen/pelvis (02/16): Pneumoperitoneum, extraluminal contrast, perisplenic/subdiaphragmatic collection (7.1 1.1 cm). - Small bowel series (02/11): Normal. 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 Procedures: - First laparotomy (01/13): Resection of perforated small bowel, enteroenterostomy. - Second laparotomy (02/04): Resection near previous perforation, jejunal anastomosis. - Third laparotomy (02/25): Resection of distal ileum, end-to-end anastomosis, ileostomy. Cultures: - Peritoneal fluid (01/13): E. coli, Klebsiella pneumoniae (sensitive to meropenem). - Peritoneal fluid (02/17): E. coli, Stenotrophomonas maltophilia. - IR-guided pigtail drain placed; drained 50 cc purulent fluid. - CARMEN drains placed in 4 quadrants initially and now patient has only 1 CARMEN drain - Initially NPO, TPN initiated. - NG tube placed. - IV antimicrobials Daptomycin meropenem and micafungin - Initially patient is on Levofloxacin, Flagyl (02/03); Vancomycin and Meropenem (); Meropenem (); Vancomycin () then eventually switched to above antimicrobials - Started Daptomycin (03/08), Bactrim stopped (03/08) -Gastrografin scan(03/05) showed Contrast extravasation is seen in the proximal small bowel, possibly left sided jejunum near the surgical drain can be seen with a leak. -patient kept NPO Genitourinary / Kidney # ISRRAEL likely secondary to shock/volume depletion- resolved - Nephrology consulted for ISRRAEL. Endocrine # Hypothyroidism: TSH 42.29, low T4 # Type 2 diabetes mellitus: HbA1c 8.2%.- # Episodes of hypoglycemia. # Hypothyroidism - continuously monitoring blood glucose and on ISS - Started on Levothyroxine 50 daily Metabolic Hypokalemia. Hyperkalemia. Hyponatremia: D5W at 75 mL/hr per nephrology. Hypophosphatemia: given IV phosphate Nutrition: Severe protein malnutrition. Hematology # Acute on chronic anemia (hemodilution/post-surgical). # Severe thrombocytopenia, HIT # Acute DVT of right upper extremity. - Ultrasound (01/17): Partial thrombus in right internal jugular and cephalic veins. - hemoglobin today 6.9, transfused 1 more unit of PRBC 02/28 - Transfused total 8 units PRBC, 2 platelet units. - continuously monitor H&H - hold blood thinners Musculoskeletal / Skin # Rib fracture due to fall. Nutrition: TPN initiated. Bowel Regimen: As needed. GI Prophylaxis: Pantoprazole bid DVT Prophylaxis: Lovenox (held/ Dc'd due to low hemoglobin). Lines / Tubes / Devices Airway: Intubated on 01/14, extubated on 02/07, reintubated on 02/25 extubated 02/28 Vascular Access: PICC line placed in right upper thigh on 01/26. Drips: Dc'd pressors and sedatives. Urinary: Leach catheter placed on 01/14, exchanged on 02/14. CARMEN drains in 1 quadrant. Goals of care addressed with patient's family members for more than 29 minutes: Full code status Care plan updated to the patient family Chris (son) on bedside and addressed all concerns Critical care time spent more than 51 minutes excluding procedures and including discussion with the family Case discussed with Dr. Galeana and RN Plan discussed with: Son Dietary Evaluation Review Comments: Nutrition Recommendation: 1) TPN to meet at least 75% estimated needs within 7 days 2) Monitor NPO status, lab values, wt trend, I/O Expected Outcomes/Goals: To meet >75% estimated needs Lab values to improve Fu 2-3 days Is there a minimum of two crit: Yes CC Plasma Assessment Blood Product Administration S: [id number] Date of Service: Mar 14, 2025 Billing Provider: ZBIGNIEW SELF MD Common Visit Codes: [id number] CARE 30-74 MIN ASHLEY TREJO Mar 14, 2025 12:18 ZBIGNIEW SELF MD Mar 15, 2025 14:28
[2025-03-14] MEDS: TPN PER PHARMACY IV NR (21:29)
[2025-03-15] VITALS (28 sets, daily range): BP systolic 81–111; BP diastolic 24–57; PULSE 95–117; RESP 14–23; TEMP 98.2–100.4; O2SAT 96–99
[2025-03-15 07:19] LABS: Hemoglobin 8.2 g/dL (12.2-16.2)
[2025-03-15 07:21] LABS: Hematocrit 23.5 % (36.0-46.0); Mean Corpuscular Hemoglobin 35.1 pg (28.0-32.0); Mean Corpuscular Volume 100.9 fL (80.0-100.0)
[2025-03-15 07:37] LABS: Alanine Aminotransferase 34 U/L (7-40); Anion Gap 10 (5-15); BUN/Creatinine Ratio 32.8 (10.0-20.0); Calcium 9.0 mg/dL (8.7-10.4); Carbon Dioxide 21 mmol/L (20-31); Chloride 104 mmol/L (98-107); Potassium 3.8 mmol/L (3.5-5.1)
[2025-03-15 07:40] LABS: Albumin 2.2 g/dL (3.2-4.8); Alkaline Phosphatase 153 U/L (46-116); Bilirubin, Total 3.1 mg/dL (0.2-1.0); Blood Urea Nitrogen 38 mg/dL (9-23); Glucose 138 mg/dL (74-106); Magnesium 1.6 mg/dL (1.6-2.6); Sodium 135 mmol/L (136-145); Total Protein 5.4 g/dL (5.7-8.2)
[2025-03-15 08:48] LABS: Total Cells Counted 100.0 (100)
[2025-03-15 08:49] LABS: Macrocytosis Slight
[2025-03-15] MEDS: MAGNESIUM SULFATE 1GM/100ML 100 ML IV ONE (08:51)
[2025-03-15] MEDS ORDERED: KETOROLAC TROMETH 30 MG/ML 1ML VIAL IV PRN (10:00)
--- NOTE | 2025-03-15 10:01 | DVHPN2 ---
Progress Note Date Seen: Mar 15, 2025 Has the PT tested + for MRSA If YES, has PT been informed?: No Medical Necessity Reason Pt with a Central, PICC or Fol: Yes The following are medically ne: PICC Line, Leach Catheter Reason for leach catheter: Strict I&O Objective vital signs Vital Sign Date Time Temp Pulse Resp B/P (MAP) Pulse Ox O2 Delivery O2 Flow Rate FiO2 03/15/25 08:00 104 03/15/25 06:35 18 103/53 03/15/25 06:00 96 03/15/25 04:00 98.2 98.2 03/14/25 19:54 Room Air* 0 21 Total Intake and Output 03/14/25 03/14/25 03/15/25 15:00 23:00 07:00 Intake Total 1006 ml 958 ml 856 ml Output Total 635 ml 780 ml Balance 1006 ml 323 ml 76 ml medications Current Medications Medications Dose Ordered Sig/Isaura Route Start Time Stop Time Status Last Admin Dose Admin Cefazolin Sodium 50 ml @ 100 mls/hr Q8HR IV 01/13/25 14:00 UNV Vasopressin 20 units/Sodium Chloride 100 ml @ 9 mls/hr Q11H7M IV 01/13/25 18:45 UNV Potassium Chloride 100 ml @ 50 mls/hr Q2H IV 01/16/25 12:45 01/16/25 18:44 UNV Vancomycin HCl 100 ml @ 100 mls/hr DAILY@1200 IV 01/20/25 12:00 UNV Amino Acids 0 ml @ 0 mls/hr PER PHARMACY IV 02/13/25 10:45 Ondansetron HCl 4 mg Q4HPRN PRN IV 02/21/25 09:30 03/12/25 17:08 4 MG Micafungin Sodium 100 mg/Sodium Chloride 100 ml @ 100 mls/hr DAILY IV 02/22/25 10:00 03/14/25 10:44 100 MLS/HR Multi-Ingredient Ointment 1 applic DAILY TOP 02/23/25 10:00 03/14/25 10:24 1 APPLIC Norepinephrine Bitartrate 250 ml @ 3.75 mls/hr Q24H IV 02/25/25 11:45 02/26/25 11:51 7.5 MLS/HR Diagnostic Test (Pha) 1 strip Q4HR 02/26/25 16:00 Cancel Dextrose 50 ml UD PRN IV 02/26/25 14:15 Diagnostic Test (Pha) 1 strip IQ4HR 02/26/25 16:00 UNV Dextrose 50 ml UD PRN IV 02/26/25 16:00 UNV Insulin Human Regular Q6HR SC 03/02/25 12:00 03/15/25 06:06 2 UNITS Pantoprazole Sodium 40 mg BID IV 03/08/25 22:00 03/14/25 21:13 40 MG Levothyroxine Sodium 50 mcg DAILY IV 03/09/25 10:00 03/14/25 10:21 50 MCG Hydromorphone HCl 0.5 mg Q4HPRN PRN IV 03/09/25 15:00 03/15/25 06:05 0.5 MG Piperacillin Sod/ Tazobactam Sod 100 ml @ 25 mls/hr Q8HR IV 03/11/25 14:00 03/15/25 05:52 25 MLS/HR Lidocaine 1 patch DAILY TOP 03/12/25 10:00 03/14/25 10:21 1 PATCH Potassium Chloride/Dextrose/ Sod Cl 1,000 ml @ 50 mls/hr Q20H IV 03/13/25 14:00 03/15/25 05:52 50 MLS/HR Fat Emulsion Intravenous 150 ml/Sodium Acetate 40 meq/Potassium Acetate 20 meq/ Potassium Phosphate 22 meq/ Magnesium Sulfate 4 meq/ Multivitamins 10 ml/Chromium/ Copper/Manganese/ Zinc 1 ml/Insulin Human Regular 5 units/Amino Acids/ Dextrose/Purified Water 1,397.05 ml @ 58 mls/hr Q24H6M IV 03/14/25 22:00 03/15/25 21:59 03/14/25 21:29 58 MLS/HR Fat Emulsion Intravenous 150 ml/Sodium Acetate 60 meq/Potassium Acetate 20 meq/ Potassium Phosphate 22 meq/ Magnesium Sulfate 10 meq/ Multivitamins 10 ml/Insulin Human Regular 5 units/ Amino Acids/ Dextrose/Purified Water 1,607.55 ml @ 67 mls/hr Q24H IV 03/15/25 22:00 03/16/25 21:59 laboratory and microbiology Laboratory Tests 03/15/25 05:00 Test 03/15/25 05:00 Range/Units Serum Glucose 138 H 74-106 mg/dL Problem List/Assessment/Plan Problem List/Assessment/Plan 01/14/25 afebrile, low dose BP support, received transfusion, I believe her decreased hematocrit is due to hemodilution. abdomen non distended, soft, wound clean and well approximated, drainage serous . remains intubated and sedated 01/16/25 ALKALOSIS, ABDOMEN NON DISTENDED, SOFT, DRAINAGE SEROUS, WOUND CLEAN AND WELL APPROXIMATED 01/17/25 improved, thrombocytopenia possibly made worse by Fluconazole,will DC, abdomen non distended, wound well approximated without infection, TATY drainage serous, CVP 6, good urine output. 01/18/25 abg reviewed, ,abdomen soft, non distended, TATY drainage clear serous, no bowel activity, febrile, urine output ok, continues with thrombocytopenia,pt and inr slightly elevated. prognosis grave. 01/20/25remains sedated on ventilator, abdomen soft, non distended, faint bowel sounds auscultated by nurse, wound clean and well approximated, TATY drainage clear serous. continues with thrombocytopenia, still behind on intravascular volume( BUN and Creatinine elevated), i would give more IV fluids and DC vancomycin. 01/25/25 afebrile, normotensive, wound clean and well approximated, TATY drainage serous, abdomen non distended, soft, gastrografin small bowel series shows non obstructed GI tract and no evidence of extravasation. It is OK to initiate enteric feedings. 01/29/25 16 DAYS POST OPERATIVELY TRHE TATY DRAINAGE WHICH HAD CONSISTENTLY BEEN SEROUS OR SERO SANGUINEOUS HAS BECOME "DIRTY" BROWNISH DISCOLORATION, HER WOUND IS CLEAN AND WELL APPROXIMATED AND HER ABDOMEN IS SOFT AND NON DISTENDED, CT SCAN SHOWS SO0ME FLUID AND ACCUMULATION OF FLUID AROUND THE SPLEEN, WILL REQUEST CT GUIDED ASPIRATION OF SAME, WILL ORDER IRRIGATION OF DRAINS. SHE SI AFEBRILE AND MAINTAINS NORMAL BLOOD PRESSURE, HER WBC IS NORMAL. 01/30/25 improved, awake, being weaned off vent. abdomen non distended, non tender, taty drainage clearing with irrigation 02/02/25clinically unchanged, gastrografin small bowel series reported and normal, no extravasation reported, will order a follow ujp KUB for tomorrow AM 02/03/25 PATIENT HAD A GASTROGRAFIN SMALL BOWEL SERIES AND A FOLLOW UP KUB X RAYS NEITHER ONE OF WHICH SHOW EXTRAVASATION OF CONTRAST OR EVIDENCE OF FREE CONTRAST IN THE PERITONEAL CAVITY. THERE IS HOWEVER VISCOUS, BROWNISH FLUID DRAINING VIA BOTH TATY DRAINS AND THROUGH INFRAUMBILICAL PORTION OF MIDLINE WOUND, I REMOVED THE RICHIE FROM THE 3 CM SECTION OF THE INFRAUMBILICAL WOUND AND EVACUATED ABOUT 30 CC OF THIS FLUID AND INSTRUCTED THE NURSE TO PLACE A STOMA APPLIANCE ON THIS OPENING. 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 TODAY HER WBC IS ELEVATED, ABDOMEN CONTINUES TO BE NON DISTENDED, SOFT, BUT SHE DOES HAVE SLIGHT TENDERNESS IN THE PERIUMBILICAL AREA. I WILL TREAT THIS EXPECTANTLY FORM THE TIME BEING IN THE HOPE THAT THIS IS A "CONTROLLED" FISTULA AND HOPEFUL WILL HEAL SPONTANEOUSLY WITH NPO AND NUTRITIONAL SUPPORT. WILL WATCH CLOSELY, AFTER A FEW DAYS WILL GET A FISTULOGRAM TO PIN POINT THE ENTERIC ORIGIN OF THE FISTULIZATION. CONTINUE NGT SUCTION AND DRAIN IRRIGATION ORDERED02/05/25 02/05/25 remains sedated and intubated?ventilated, abdomen non distended soft, wound vac in place. TATY drainage serosanguineous 02/08/25 EXTUBATED, GOOD INSPIRATORY EFFORT, BP NML WITHOUT PRESSOR SUPPORT, ABDOMEN SOFT, NON DISTENDED, APPROPRIATELY TENDER, LABS REVIEWED. NO CHANGES TODAY OTHER THAN ALLOW ICE CHIPS PO. WILL ORDER GASTROGRAFIN SMALL BOWEL FOLLOWTHROUGH FOR Friday02/09/25 awake cooperative, wound vac in place, abdomen soft, non distended, appropriately tender, TATY drainage brownish discoloration, will irrigate, her WBC is normal and she is afebrile and normotensive. gastrografin tomorrow 02/10/25 AWAKE,COMFORTABLE, DENIES PAIN, ABDOMEN NON DISTENDED APPROPRIATELY TENDER, WOUND CLEAN AND WELL APPROXIMATED, DRAINS BEING IRRIGATED, LABS OK, GOOD URINE OUTPUT. "SURGICALLY" STABLE 02/11/25 feels well, passing flatus. is hungry, abdomen soft non distended, drainage clearing with irrigation, will wait for Gastrografin small bowel series to be completed, if normal will start po clear liquids 02/12/25 no nausea, change in TATY drainage colort, appears to contaIN, BILE, WILL DC po CLEAR LIQUIDS, CONTINUE ICE CGHIPS, SEND DRAin fluid for amylase and bilirubin, 02/13/25 states she feels well, abdomen non tender, non distended, wound clean and well approximated. drainage slightly clearer, keep npo for now, needs to resume TPN 02/14/25 PATIENT C/O BEING COLD BUT HAS NO PAIN, DRAINAGE SEEMS TO BE CLEARING, SHE HAD A BOWEL MOVEMENTS, ABDOMEN IS SOFT AND NON TENDER, NON DISTENDED, WOUND IS CLEAN AND WELL APPROXIMATED, WILL CONTINUE NPO STATUS AMYLASE ON TATY DRAINAGE FLUID IS GOING TO TAKE SEVERAL DAYS TO BECOME AVAILABLE. CONTINUE TPN 02/16/25 DENIES PAIN,STATES SHE FEELS BETTER, WOUND VAC IN PLACE, ABDOMEN NON TENDER,NON DISTENDED, TATY DRAINAGE SMALL TO MODERATE , WILL CONTINUE IRRIGATING DRAINS, WILL REQUEST GI CONSULT TO CONSIDER ENDOSCOPY. WBC NL,H/H STABLE , ALBUMIN STILL VERY LOW. , 02/17/25 CT SCAN REVIEWED, I SUSPECT THERE IS A SMALL LEAK FROM THE APPEARANCE OF IMAGING ALTHOUGH RADIOLOGIST RECOMMENDED REPEAT CT SCAN (ORDERED). THE DRAINAGE IS SMALL AMOUNT BUT NOW IT IS WITH AN ODOR, I WILL RE INSERT NGT TO ATTEMPT DECREASING THE GASTRIC CONTENTS. ABDOMEN IS SOFT, APPROPRIATELY TENDER, WOUND VAC IN PLACE 02/18/25 AFEBRILE, NORMOTENSIVE4, WBC NL, ALL IMAGING NEGATIVE, ANGIOGRAM SHOWS NO EVIDENCE OF HYPOPERFUSION, CONTRAST AND NON CONTRAST CT SCAN FAILED TO SHOW ANY EVIDENCE OF EXTRAVASATION, THE DRAINAGE CONTINUES TO BE BROWNISH DISCOLORED AND FOULS SMELLING, EXPLAINED TO PT'S SON THAT I HAVE NO EVIDENCE OF ANY GI LEAKAGE, WILL GET A GASTROGRAFIN ENEMA ON FRIDAY, I AM TRYING TO REFRAIN FROM OPERATING ON THE FRAIL ELDERLY PATIENT FOR THE THIRD TIME, SHE WILL NOT TOLERATE ANOTHYER OPERATION WELL. HER ALBUMIN REMAINS VERY LOW.WOUND VAC OK 02/19/25 feels ok,c/o being cold, abdomen soft. non distended, minimally tender, drainage seems to be little less, labs ok, continue as is 02/22/25 she feels well, abdomen is non tender, soft and non distended, drainage slightly less in volume, still discolored,gastrografin enema reviewed by me ( no radiologist/s interpretation available), she has not evacuated the gastrografin according to nurse. 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 will proceed with operation on 02/25/25 at 0715 AM. 02/27/25 SLIGHT IMPROVEMENT, ABDOMEN SOFT, NON DISTENDED, STOMA VIABLE WITHOUT FUNCTION, OK TO TRY GETTING OFF VENTILATOR. 03/01/25 extubated, conversant,oriented, abdomen non distended, appropriately tender, wound clean ans well approximated, drainage serous, stoma viable and with minimal liquid,no gas. will sips of water and ice po 03/02/25 awake comfortable, denies pain, abdomen appropriately tender, wound vac in place, afebrile, normotensive, drainage serosanguineous, cbc stable, stoma viable and with minimal output will resume irrigation of drain 03/03/25 awake ,cooperative, good inspiratory effort, afebrile, normotensive, wound covered with wound vac, drainage serous but cloudy(cultures ordered) abdomen non tender, stoma viable with minimal output. will order gastrografin ugi with small bowel follow throught for tomorow 03/04/25 vital signs stable, good urine output, wound vac ok, abdomen non tender. Xray pending 03/05/25 UGI X RAY SHOWS A NEW AREA OF LEAK,BEING ADEQUATELY DRAINED BY THE TATY DRAIN WHICH IS ADJACENT TO IT, HER ABDOMEN IS NON TENDER. WILL RESUME STRICT NPO STATUS, KEEP NGT TO CONTINUOUS SUCTION, I HAVE CALLED HER SON ILIANA AND EXPLAINED THAT PROBABLY THE INTESTINAL WALL IS NOT HEALING WHENEVER WE PLACE SUTURE AT SITES OF ANASTOMOSES. HER ABDOMEN IS NON TENDER, I WILL TREAT THIS CONSERVATIVELY FOR SOME TIME TO SEE IF THE LEAK MAY SHOW SOME EVIDENCE OF HEALING. YESTERDAY THERE WAS 500 CC OF TATY DRAINAGE. HER ALBUMIN LEVEL IS SLOWLY IMPROVING BUT STILL REMAINS LOW. IT APPEARS THAT THE SUTURES IN HER INTESTINAL ANASTOMOSES HOLD FOR ABOUT A WEEK AND THEN BREAK DOWN. (DRAINAGE TURNED FROM SEROSANGUINEOUS TO GREENISH YESTERDAY. 03/06/25 drainage slightly less in volume, still enteric contents abdomen softn and non tender, non distended. wound vac changed, wound healing, no chjanges for now. discussed with family. 03/08/29 feels better, no pain, abdomen soft and non tender, drainage minimally less, family at bedside, answered questions 03/09/25 son at bedside, patient feels "well" wants to eat, explained that we need to keep her intestine at rest' afebrile, normotensive, drainage less, abdomen non tender, wound vac in p-lace wbc normal today. h/h stable/ continue npo aqnd ngt there is stool in stoma appliance 03/13/25 SLOW IMPROBVEMENT,ABDOMEN NON TENDER, NON DISTENDED, SOME STOOL IN STOMA, DRAINAGE SLIGHTLY LESS VOLUME, CONTINUE IS, NEEDS MOR IV FLUYID (ORDERS GIVEN) 03/15/25 stable, having the NG tube clamped did not cause distress nor did it result in increase of the TATY drainage ,I have therefore removed the NG tube, she does need to remain NPO however, if there are no major changes in her condition in the next 48 hours she would be stable to transfer to a SNF on TPN, I will gladly make "house calls " on here at the facility . abdomen remains non distended, non tender, wound awaiting a wound vac but it is without evidence of infection, I have digitally probed the styoma which has inverted on itself, it is patent ancd without stenosis below the skin level. Plan discussed with: Patient, Other Dietary Evaluation Review Comments: Nutrition Recommendation: 1) TPN to meet at least 75% estimated needs within 7 days 2) Monitor NPO status, lab values, wt trend, I/O Expected Outcomes/Goals: To meet >75% estimated needs Lab values to improve Fu 2-3 days Is there a minimum of two crit: Yes MELVA RAMESH MD Mar 15, 2025 10:01
--- NOTE | 2025-03-15 11:08 | DVHPNRES ---
Progress Note Date Seen: Mar 15, 2025 Resident Creating Document: ASHLEY TREJO RESIDENT Has the PT tested + for MRSA If YES, has PT been informed?: No Medical Necessity Reason Pt with a Central, PICC or Fol: Yes The following are medically ne: PICC Line, Leach Catheter Reason for leach catheter: Strict I&O Subjective Review of Systems This is a 80-year-old lady with past medical history of hypertension, AFib (on Eliquis), diabetes type 2, CKD, came to the hospital due to abdominal pain, and constipation. Admitted on 01/13/2025. Found to have peritonitis due to bowel perforation, and underwent emergent laparotomy with subsequent resection of perforated small bowel and enteroenterostomy. Due to abnormal CARMEN drainage, second exploratory laparotomy performed on 02/04 and found to have perforation near to previous perforation area, underwent resection of area with subsequent anastomosis of proximal jejunal loops. 02/09/2025: Patient seen in the [facility]. Continued to be NPO. On 2 L oxygen via nasal cannula. Wound VAC is mild functional, yellowish drainage from incision site, CARMEN drain is functional, draining greenish bile. No signs of fever. No any other night complaints. 02/10/2025: Patient seen and [facility]. Patient is to be continued on NPO. Is on room air, wound care to be done, wet-to-dry. Surgery following, low intermittent suction of NG tube, 130 mL of greenish fluid from CARMEN drain, 50 mL from NG tube noted. 02/11/2025: Patient seen in [facility]. Patient is to be continued on NPO, is on room air, wound care is wet-to-dry, patient is getting TPN, had 145 removal of greenish drainage from CARMEN drain. Patient has nonblanching redness on sacrum. Today she came complains of 8/10 pain in the abdomen and back. NG tube was clamped. Following surgery. 02/12/25: patient seen in the [facility]. She is still NPO. on room air, wound cares were too dry, NG tube removed. Still greenish drainage from CARMEN drain, blackish stool in the colostomy bag. She still complains of pain in the abdomen, back. PT is able to get her to wheelchair. surgery following. Objective vital signs Vital Sign Date Time Temp Pulse Resp B/P (MAP) Pulse Ox O2 Delivery O2 Flow Rate FiO2 03/15/25 09:00 107 16 105/55 (72) 96 03/15/25 08:00 Room Air* 0 21 03/15/25 08:00 98.5 98.5 Total Intake and Output 03/14/25 03/14/25 03/15/25 15:00 23:00 07:00 Intake Total 1006 ml 958 ml 964 ml Output Total 635 ml 780 ml Balance 1006 ml 323 ml 184 ml medications Current Medications Medications Dose Ordered Sig/Isaura Route Start Time Stop Time Status Last Admin Dose Admin Cefazolin Sodium 50 ml @ 100 mls/hr Q8HR IV 01/13/25 14:00 UNV Vasopressin 20 units/Sodium Chloride 100 ml @ 9 mls/hr Q11H7M IV 01/13/25 18:45 UNV Potassium Chloride 100 ml @ 50 mls/hr Q2H IV 01/16/25 12:45 01/16/25 18:44 UNV Vancomycin HCl 100 ml @ 100 mls/hr DAILY@1200 IV 01/20/25 12:00 UNV Amino Acids 0 ml @ 0 mls/hr PER PHARMACY IV 02/13/25 10:45 Ondansetron HCl 4 mg Q4HPRN PRN IV 02/21/25 09:30 03/12/25 17:08 4 MG Micafungin Sodium 100 mg/Sodium Chloride 100 ml @ 100 mls/hr DAILY IV 02/22/25 10:00 03/15/25 10:43 100 MLS/HR Multi-Ingredient Ointment 1 applic DAILY TOP 02/23/25 10:00 03/14/25 10:24 1 APPLIC Norepinephrine Bitartrate 250 ml @ 3.75 mls/hr Q24H IV 02/25/25 11:45 02/26/25 11:51 7.5 MLS/HR Diagnostic Test (Pha) 1 strip Q4HR 02/26/25 16:00 Cancel Dextrose 50 ml UD PRN IV 02/26/25 14:15 Diagnostic Test (Pha) 1 strip IQ4HR 02/26/25 16:00 UNV Dextrose 50 ml UD PRN IV 02/26/25 16:00 UNV Insulin Human Regular Q6HR SC 03/02/25 12:00 03/15/25 06:06 2 UNITS Pantoprazole Sodium 40 mg BID IV 03/08/25 22:00 03/15/25 10:41 40 MG Levothyroxine Sodium 50 mcg DAILY IV 03/09/25 10:00 03/15/25 10:41 50 MCG Piperacillin Sod/ Tazobactam Sod 100 ml @ 25 mls/hr Q8HR IV 03/11/25 14:00 03/15/25 05:52 25 MLS/HR Lidocaine 1 patch DAILY TOP 03/12/25 10:00 03/15/25 10:42 1 PATCH Potassium Chloride/Dextrose/ Sod Cl 1,000 ml @ 50 mls/hr Q20H IV 03/13/25 14:00 03/15/25 05:52 50 MLS/HR Fat Emulsion Intravenous 150 ml/Sodium Acetate 40 meq/Potassium Acetate 20 meq/ Potassium Phosphate 22 meq/ Magnesium Sulfate 4 meq/ Multivitamins 10 ml/Chromium/ Copper/Manganese/ Zinc 1 ml/Insulin Human Regular 5 units/Amino Acids/ Dextrose/Purified Water 1,397.05 ml @ 58 mls/hr Q24H6M IV 03/14/25 22:00 03/15/25 21:59 03/14/25 21:29 58 MLS/HR Fat Emulsion Intravenous 150 ml/Sodium Acetate 60 meq/Potassium Acetate 20 meq/ Potassium Phosphate 22 meq/ Magnesium Sulfate 10 meq/ Multivitamins 10 ml/Insulin Human Regular 5 units/ Amino Acids/ Dextrose/Purified Water 1,607.55 ml @ 67 mls/hr Q24H IV 03/15/25 22:00 03/16/25 21:59 Ketorolac Tromethamine 15 mg Q6HPRN PRN IV 03/15/25 10:00 03/20/25 09:59 Examination Pt is lying on bed General Appearance: Alert and Oriented x2 HEENT: Atraumatic, Mucous membranes moist/pink Respiratory: Clear to auscultation, Normal air movement, No added sounds Cardiovascular: Regular rate, Normal S1, Normal S2, No murmurs Abdominal: Active bowel sounds, Soft, no distention, no tenderness, colostomy bag in place and 1 CARMEN drain with greenish fluid Extremities: There is bilateral upper extremity edema, with seeping fluid Skin: No Significant rash, except past surgical scars Neuro: more alert and oriented Nurse was there as karate black belt during examination laboratory and microbiology Laboratory Tests 03/15/25 05:00 Test 03/15/25 05:00 Range/Units Serum Glucose 138 H 74-106 mg/dL Microbiology Date/Time Source Procedure Growth Status 03/07/25 08:32 Blood Blood Culture - Final Staphylococcus epidermidis Complete 03/02/25 16:00 Urine - [place] Urine Culture - Final Complete 03/02/25 16:00 Aspirate Gram Stain - Final Resulted 03/02/25 16:00 Body Fluid Culture - Preliminary Enterococcus faecium - VRE Escherichia coli Resulted 02/25/25 11:48 Sputum Gram Stain - Final Complete 02/25/25 11:48 Sputum Respiratory Culture - Final Complete 01/13/25 17:10 Nose MRSA Screen - Final Complete Problem List/Assessment/Plan Problem List/Assessment/Plan Neurology # Chronic ischemic changes # Chronic Cortical atrophy - Head CT (01/29): Chronic microangiopathy and cortical atrophy. - reintubated on 02/25/25 during surgery # Extubated on 02/28 Cardiovascular # Septic shock secondary to hollow viscus perforation. # Paroxysmal atrial fibrillation with a second-degree hypercoagulable state currently NSR # Chronic diastolic heart failure with preserved EF 65% # Hypertension. - Echocardiogram (01/15): Normal LV EF (65%), mild LVH, mild LV diastolic dysfunction. - Chest X-ray: Bibasilar atelectasis. - ZEFERINO?DS?-VASc score >5 - cardiology on board - initially on Lovenox therapeutic but Dc'd due to low hemoglobin - Labetalol PRN Pulmonary # Acute hypoxic respiratory failure secondary to bilateral pleural effusion/pneumonia s/p re-intubation, status post extubation 02/28 - monitor with daily CXR - Sputum culture 01/29 Presumptive Zoe albicans and : negative - Reintubated on 02/25. - Chest Physiotherapy ongoing. - extubated today Gastrointestinal / Liver # Acute Bacterial Peritonitis due to small bowel perforation vs Perisplenic abscess. s/p multiple laparotomies # Transaminitis secondary to shock. # Anion gap metabolic acidosis due to bowel ischemia and lactic acidosis - CT abdomen/pelvis (02/16): Pneumoperitoneum, extraluminal contrast, perisplenic/subdiaphragmatic collection (7.1 1.1 cm). - Small bowel series (02/11): Normal. - Gastrografin (02/21): [place]-enteric fistula, contrast leak from distal transverse colon. Procedures: - First laparotomy (01/13): Resection of perforated small bowel, enteroenterostomy. - Second laparotomy (02/04): Resection near previous perforation, jejunal anastomosis. - Third laparotomy (02/25): Resection of distal ileum, end-to-end anastomosis, ileostomy. Cultures: - Peritoneal fluid (01/13): E. coli, Klebsiella pneumoniae (sensitive to meropenem). - Peritoneal fluid (02/17): E. coli, Stenotrophomonas maltophilia. - Aspirate Showed(03/02): VRE - IR-guided pigtail drain placed; drained 50 cc purulent fluid. - CARMEN drains placed in 4 quadrants initially and now patient has only 1 CARMEN drain - Initially NPO, TPN initiated. - NG tube placed. - IV antimicrobials Daptomycin meropenem and micafungin - Initially patient is on Levofloxacin, Flagyl (02/03); Vancomycin and Meropenem (); Meropenem (); Vancomycin () then eventually switched to above antimicrobials - Started Daptomycin (03/08), Bactrim stopped (03/08) -Gastrografin scan(03/05) showed Contrast extravasation is seen in the proximal small bowel, possibly left sided jejunum near the surgical drain can be seen with a leak. -patient kept NPO - NG tube removed (03/15) Genitourinary / Kidney # ISRRAEL likely secondary to shock/volume depletion- resolved - Nephrology consulted for ISRRAEL. Endocrine # Hypothyroidism: TSH 42.29, low T4 # Type 2 diabetes mellitus: HbA1c 8.2%.- # Episodes of hypoglycemia. # Hypothyroidism - continuously monitoring blood glucose and on ISS - Started on Levothyroxine 50 daily Metabolic Hypokalemia. Hyperkalemia. Hyponatremia: D5W at 75 mL/hr per nephrology. Hypophosphatemia: given IV phosphate Nutrition: Severe protein malnutrition. Hematology # Acute on chronic anemia (hemodilution/post-surgical). # Severe thrombocytopenia, HIT # Acute DVT of right upper extremity. - Ultrasound (01/17): Partial thrombus in right internal jugular and cephalic veins. - hemoglobin today 6.9, transfused 1 more unit of PRBC 02/28 - Transfused total 8 units PRBC, 2 platelet units. - continuously monitor H&H - hold blood thinners Musculoskeletal / Skin # Rib fracture due to fall. Nutrition: TPN initiated. Bowel Regimen: As needed. GI Prophylaxis: Pantoprazole bid DVT Prophylaxis: Lovenox (held/ Dc'd due to low hemoglobin). Lines / Tubes / Devices Airway: Intubated on 01/14, extubated on 02/07, reintubated on 02/25 extubated 02/28 Vascular Access: PICC line placed in right upper thigh on 01/26. Drips: Dc'd pressors and sedatives. Urinary: Leach catheter placed on 01/14, exchanged on 02/14. CARMEN drains in 1 quadrant. NG tube removed,(03/15) Goals of care addressed with patient's family members for more than 29 minutes: Full code status Care plan updated to the patient family Chris (son) on bedside and addressed all concerns Critical care time spent more than 61 minutes excluding procedures and including discussion with the family Case discussed with Dr. Galeana and RN Plan discussed with: Son Dietary Evaluation Review Comments: Nutrition Recommendation: 1) TPN to meet at least 75% estimated needs within 7 days 2) Monitor NPO status, lab values, wt trend, I/O Expected Outcomes/Goals: To meet >75% estimated needs Lab values to improve Fu 2-3 days Is there a minimum of two crit: Yes CC Plasma Assessment Blood Product Administration S: [id number] Date of Service: Mar 15, 2025 Billing Provider: ZBIGNIEW SELF MD Common Visit Codes: [id number] CARE 30-74 MIN ASHLEY TREJO RESIDENT Mar 15, 2025 11:08 ZBIGNIEW SELF MD Mar 16, 2025 12:51
--- NOTE | 2025-03-15 21:16 | DVHPN2 ---
Consult Progress Note Objective vital signs Vital Sign Date Time Temp Pulse Resp B/P (MAP) Pulse Ox O2 Delivery O2 Flow Rate FiO2 03/15/25 21:00 107 18 99/52 (68) 97 03/15/25 12:00 98.2 98.2 03/15/25 08:00 Room Air* 0 21 Total Intake and Output 03/14/25 03/14/25 03/15/25 15:00 23:00 07:00 Intake Total 1006 ml 958 ml 964 ml Output Total 635 ml 780 ml Balance 1006 ml 323 ml 184 ml medications Current Medications Medications Dose Ordered Sig/Isaura Route Start Time Stop Time Status Last Admin Dose Admin Cefazolin Sodium 50 ml @ 100 mls/hr Q8HR IV 01/13/25 14:00 UNV Vasopressin 20 units/Sodium Chloride 100 ml @ 9 mls/hr Q11H7M IV 01/13/25 18:45 UNV Potassium Chloride 100 ml @ 50 mls/hr Q2H IV 01/16/25 12:45 01/16/25 18:44 UNV Vancomycin HCl 100 ml @ 100 mls/hr DAILY@1200 IV 01/20/25 12:00 UNV Amino Acids 0 ml @ 0 mls/hr PER PHARMACY IV 02/13/25 10:45 Ondansetron HCl 4 mg Q4HPRN PRN IV 02/21/25 09:30 03/12/25 17:08 4 MG Micafungin Sodium 100 mg/Sodium Chloride 100 ml @ 100 mls/hr DAILY IV 02/22/25 10:00 03/15/25 10:43 100 MLS/HR Multi-Ingredient Ointment 1 applic DAILY TOP 02/23/25 10:00 03/14/25 10:24 1 APPLIC Norepinephrine Bitartrate 250 ml @ 3.75 mls/hr Q24H IV 02/25/25 11:45 02/26/25 11:51 7.5 MLS/HR Diagnostic Test (Pha) 1 strip Q4HR 02/26/25 16:00 Cancel Dextrose 50 ml UD PRN IV 02/26/25 14:15 Diagnostic Test (Pha) 1 strip IQ4HR 02/26/25 16:00 UNV Dextrose 50 ml UD PRN IV 02/26/25 16:00 UNV Insulin Human Regular Q6HR SC 03/02/25 12:00 03/15/25 17:53 2 UNITS Pantoprazole Sodium 40 mg BID IV 03/08/25 22:00 03/15/25 10:41 40 MG Levothyroxine Sodium 50 mcg DAILY IV 03/09/25 10:00 03/15/25 10:41 50 MCG Piperacillin Sod/ Tazobactam Sod 100 ml @ 25 mls/hr Q8HR IV 03/11/25 14:00 03/15/25 14:26 25 MLS/HR Lidocaine 1 patch DAILY TOP 03/12/25 10:00 03/15/25 10:42 1 PATCH Potassium Chloride/Dextrose/ Sod Cl 1,000 ml @ 50 mls/hr Q20H IV 03/13/25 14:00 03/15/25 05:52 50 MLS/HR Fat Emulsion Intravenous 150 ml/Sodium Acetate 40 meq/Potassium Acetate 20 meq/ Potassium Phosphate 22 meq/ Magnesium Sulfate 4 meq/ Multivitamins 10 ml/Chromium/ Copper/Manganese/ Zinc 1 ml/Insulin Human Regular 5 units/Amino Acids/ Dextrose/Purified Water 1,397.05 ml @ 58 mls/hr Q24H6M IV 03/14/25 22:00 03/15/25 21:59 03/14/25 21:29 58 MLS/HR Fat Emulsion Intravenous 150 ml/Sodium Acetate 60 meq/Potassium Acetate 20 meq/ Potassium Phosphate 22 meq/ Magnesium Sulfate 10 meq/ Multivitamins 10 ml/Insulin Human Regular 5 units/ Amino Acids/ Dextrose/Purified Water 1,607.55 ml @ 67 mls/hr Q24H IV 03/15/25 22:00 03/16/25 21:59 Morphine Sulfate 1 mg Q4HP PRN IV 03/15/25 14:30 laboratory and microbiology Laboratory Tests 03/15/25 05:00 Test 03/15/25 05:00 Range/Units Serum Glucose 138 H 74-106 mg/dL Problem List/Assessment/Plan Problem List/Assessment/Plan ASSESSMENT AND PLAN: ID Problem List: -Perforated small bowel with persistent leak; intra-abdominal sepsis; status post multiple exploratory laparotomies with adhesiolysis and enteroenterostomies; CARMEN drains in place -Septic shock; acute hypoxic respiratory failure -Acute kidney injury (ISRRAEL) with acute tubular necrosis (ATN) improved -Transaminitis likely ischemic hepatitis improving -Thrombocytopenia (worsened ~9/10 while on vancomycin/fluconazole) -Diabetes mellitus -On apixaban (Eliquis) for last 2 weeks indication unclear -Past surgical history: section; hernia repair Assessment This is a 10 y.o. female with diabetes and prior and hernia repair, who presented with 4 days of sharp lower abdominal pain. Initial ED evaluation notable for CT A/P demonstrating free intraperitoneal air and small bowel inflammatory changes concerning for perforated viscus with mild ascites and mesenteric stranding. She underwent an exploratory laparotomy on 01/13 with lysis of adhesions, small bowel enteroenterostomy, and placement of two Mendel- Steele drains; peritoneal cultures at that time grew Escherichia coli and Klebsiella pneumoniae (both ceftriaxone susceptible). Postoperatively she required norepinephrine (Levophed) and broad-spectrum antibiotics. Course complicated by recurrent sepsis and suspected enterocutaneous/peritoneal contamination, requiring re-exploration on 02/03 with evacuation of copious intra-abdominal infection/abscesses and revision of anastomosis; intraoperative cultures reportedly not obtained. A drain sample dated 01/28 grew Stenotrophomonas (TMP-SMX susceptible). Ongoing respiratory issues prompted empiric vancomycin, later discontinued when sputum grew only Zoe albicans. A third operation on 02/25 for persistent feculent leakage and peritonitis showed a distal ileal perforation proximal to adhesional obstruction; this was resected with primary anastomosis, and further adhesiolysis performed. Upper GI series on 03/04 demonstrates contrast extravasation from proximal small bowel (likely left jejunum) near a surgical drain, consistent with a persistent leak that appears to be adequately drained clinically. She has been afebrile since 03/03, is extubated to 2 L NC, hemodynamically supported on low-dose norepinephrine, and clinically stable abdominally (nontender). LFTs that had peaked during ischemic episodes are improving. Renal function has improved from admission. Cultures/culture interpretation: Earlier peritoneal cultures with E. coli and Klebsiella; drain fluid with Stenotrophomonas (01/28) and subsequent peritoneal/aspirate samples showing E. coli and vancomycin-resistant Enterococcus (VRE) on 03/02; one of four blood culture bottles (03/07) positive for Staphylococcus epidermidis, felt to be contaminant. Given the persistent bowel leak with external drainage and the timing/source of cultures, current drain cultures are likely colonization and may not represent true invasive pathogens. Antimicrobial course (per transcript): initial piperacillin-tazobactam (Zosyn) + vancomycin through 01/19; vancomycin stopped for suspected contribution to thrombocytopenia; courses including meropenem and micafungin through 01/31; then levofloxacin + metronidazole + micafungin through 02/03; meropenem continued thereafter with vancomycin re-trial for presumed pneumonia (later stopped by 02/21 after Zoe-only sputum); micafungin added/continued; trimethoprim- sulfamethoxazole (Bactrim) started 02/21 for Stenotrophomonas coverage; transcript also notes meropenem and rifampin continued until today. Plan: -Intra-abdominal sepsis with persistent small bowel leak: -Source control: continue to ensure CARMEN drains are functioning; avoid routine re- culturing from drains as results likely represent colonization and may mislead management. -Imaging monitoring: repeat upper GI series every few weeks to confirm containment and assess for healing of the leak. -Antibiotics: -De-escalate broad coverage toward enteric pathogens (E. coli/Klebsiella) and away from agents targeting colonizers. -No ongoing coverage for Stenotrophomonas is required at this time. -No coverage for VRE is recommended; discontinue daptomycin if in use. -Continue piperacillin-tazobactam (Zosyn). -Antifungal: continue micafungin. Reassess need periodically. -Duration: continue until leak is resolved or clearly contained with clinical improvement. -Transition to oral therapy when patient can tolerate and when clinically appropriate. -Hemodynamics: continue norepinephrine (Levophed) as needed; ongoing wean as tolerated. -Respiratory: extubated to 2 L NC; supportive care; chest radiograph with persistent interstitial opacities, left basilar consolidation, small pleural effusions monitor clinically. -Renal: ISRRAEL/ATN improved (Cr now ~0.99); continue renal dosing of antimicrobials as indicated; monitor BMP. -Hepatic: transaminases improving from prior ischemic hepatitis; trend LFTs. -Hematology: platelet count currently ~118 K; monitor CBC. -Anticoagulation: on apixaban (Eliquis) for unclear indication per history; reconcile indication and risk/benefit with primary/surgical teams in context of recent surgeries/leak. -Nutrition/NG: continue NG suction per surgery; nutrition per surgical/ICU teams. -Lines/Drains: maintain CARMEN drains; monitor output and character; avoid routine drain cultures. -Follow-up: ID will continue to follow clinically; adjust therapy as new data emerge. Authorized and Performed by: sheron pedraza Total critical care time: Approximately 66 minutes Due to a high probability of clinically significant, life threatening deterioration, the patient required my highest level of preparedness to intervene emergently and I personally spent this critical care time directly and personally managing the patient. This critical care time included obtaining a history; examining the patient; pulse oximetry; ordering and review of studies; arranging urgent treatment with development of a management plan; evaluation of patient's response to treatment; frequent reassessment; and, discussions with other providers. This critical care time was performed to assess and manage the high probability of imminent, life-threatening deterioration that could result in multi-organ failure. It was exclusive of separately billable procedures and treating other patients and teaching time. Isolation Precautions: standard \*Assessment and plan were discussed with the patient as written above (when able/appropriate). \*Plan is subject to change pending incorporation of new incoming information/diagnostics. Updates may be added as addendum at the bottom (OR TOP) of this note. Thank you for the consult. ID will continue to follow. Please contact Infectious Disease for any questions or concerns. Electronically signed by: Sheron Pedraza MD, 03/11/2025 \ Physical Exam: General: NAD Neck: Supple. No masses. HEENT: PERRL. Normal lids and conjunctiva. Moist mucous membranes. Oropharynx without lesions, exudates or excessive erythema. Normal appearance of the external aspects of the nose and ears. Heart: Regular rhythm, normal rate. No murmur. No lower extremity edema. Lungs: Normal respiratory effort. Clear to auscultation bilaterally. No wheezes. No crackles. Abdomen: Soft. Non-tender. Non-distended. No masses or abdominal hernia. Msk: No digital cyanosis. Normal strength and tone in all 4 limbs Skin: Warm and dry, no rashes. Neuro: Alert. No facial droop or slurred speech. Extra-ocular movements intact. Sensation intact to soft touch in all 4 limbs. Psych: Appropriate mood. Full affect. Oriented to person, place, time, and situation. Dietary Evaluation Review Comments: Nutrition Recommendation: 1) TPN to meet at least 75% estimated needs within 7 days 2) Monitor NPO status, lab values, wt trend, I/O Expected Outcomes/Goals: To meet >75% estimated needs Lab values to improve Fu 2-3 days Is there a minimum of two crit: Yes CC Plasma Assessment Blood Product Administration S: [id number] SHERON PEDRAZA MD Mar 15, 2025 21:16
[2025-03-15] MEDS: MORPHINE SULFATE INJ 2 MG/ml SYRG IV PRN (21:21)
[2025-03-15] MEDS: TPN PER PHARMACY IV NR (21:23)
[2025-03-16] VITALS (37 sets, daily range): BP systolic 81–117; BP diastolic 26–62; PULSE 80–114; RESP 14–24; TEMP 98.1–99.5; O2SAT 96–100
[2025-03-16 05:25] LABS: Hematocrit 22.5 % (36.0-46.0); Hemoglobin 7.8 g/dL (12.2-16.2); Mean Corpuscular Hemoglobin 37.4 pg (28.0-32.0); Mean Corpuscular Volume 107.4 fL (80.0-100.0); Nucleated Red Blood Cells % 0.1 %
[2025-03-16 05:27] LABS: Alanine Aminotransferase 31 U/L (7-40); Anion Gap 8 (5-15); BUN/Creatinine Ratio 32.5 (10.0-20.0); Calcium 9.2 mg/dL (8.7-10.4); Carbon Dioxide 22 mmol/L (20-31); Chloride 106 mmol/L (98-107); Magnesium 1.9 mg/dL (1.6-2.6); Potassium 3.7 mmol/L (3.5-5.1); Sodium 136 mmol/L (136-145)
[2025-03-16 05:28] LABS: Albumin 2.2 g/dL (3.2-4.8); Alkaline Phosphatase 135 U/L (46-116); Bilirubin, Total 3.1 mg/dL (0.2-1.0); Blood Urea Nitrogen 37 mg/dL (9-23); Glucose 192 mg/dL (74-106); Total Protein 5.4 g/dL (5.7-8.2)
--- NOTE | 2025-03-16 07:07 | DVHPN2 ---
Consult Progress Note Date Seen: Mar 16, 2025 Subjective Patient reports: Feels better (NG tube stopped, TPN ordered. over 200cc of drainage from drain.) Objective vital signs Vital Sign Date Time Temp Pulse Resp B/P (MAP) Pulse Ox O2 Delivery O2 Flow Rate FiO2 03/16/25 06:19 94 25 94/48 03/16/25 06:00 99 03/16/25 03:30 98.3 98.3 03/15/25 20:00 Room Air* 0 21 Total Intake and Output 03/15/25 03/15/25 03/16/25 15:00 23:00 07:00 Intake Total 964 ml 774 ml 819 ml Output Total 805 ml 1350 ml Balance 964 ml -31 ml -531 ml medications Current Medications Medications Dose Ordered Sig/Isaura Route Start Time Stop Time Status Last Admin Dose Admin Cefazolin Sodium 50 ml @ 100 mls/hr Q8HR IV 01/13/25 14:00 UNV Vasopressin 20 units/Sodium Chloride 100 ml @ 9 mls/hr Q11H7M IV 01/13/25 18:45 UNV Potassium Chloride 100 ml @ 50 mls/hr Q2H IV 01/16/25 12:45 01/16/25 18:44 UNV Vancomycin HCl 100 ml @ 100 mls/hr DAILY@1200 IV 01/20/25 12:00 UNV Amino Acids 0 ml @ 0 mls/hr PER PHARMACY IV 02/13/25 10:45 Ondansetron HCl 4 mg Q4HPRN PRN IV 02/21/25 09:30 03/12/25 17:08 4 MG Micafungin Sodium 100 mg/Sodium Chloride 100 ml @ 100 mls/hr DAILY IV 02/22/25 10:00 03/15/25 10:43 100 MLS/HR Multi-Ingredient Ointment 1 applic DAILY TOP 02/23/25 10:00 03/14/25 10:24 1 APPLIC Norepinephrine Bitartrate 250 ml @ 3.75 mls/hr Q24H IV 02/25/25 11:45 02/26/25 11:51 7.5 MLS/HR Diagnostic Test (Pha) 1 strip Q4HR 02/26/25 16:00 Cancel Dextrose 50 ml UD PRN IV 02/26/25 14:15 Diagnostic Test (Pha) 1 strip IQ4HR 02/26/25 16:00 UNV Dextrose 50 ml UD PRN IV 02/26/25 16:00 UNV Insulin Human Regular Q6HR SC 03/02/25 12:00 03/16/25 06:15 6 UNITS Pantoprazole Sodium 40 mg BID IV 03/08/25 22:00 03/15/25 21:22 40 MG Levothyroxine Sodium 50 mcg DAILY IV 03/09/25 10:00 03/15/25 10:41 50 MCG Piperacillin Sod/ Tazobactam Sod 100 ml @ 25 mls/hr Q8HR IV 03/11/25 14:00 03/16/25 06:15 25 MLS/HR Lidocaine 1 patch DAILY TOP 03/12/25 10:00 03/15/25 10:42 1 PATCH Potassium Chloride/Dextrose/ Sod Cl 1,000 ml @ 50 mls/hr Q20H IV 03/13/25 14:00 03/16/25 01:52 50 MLS/HR Fat Emulsion Intravenous 150 ml/Sodium Acetate 60 meq/Potassium Acetate 20 meq/ Potassium Phosphate 22 meq/ Magnesium Sulfate 10 meq/ Multivitamins 10 ml/Insulin Human Regular 5 units/ Amino Acids/ Dextrose/Purified Water 1,607.55 ml @ 67 mls/hr Q24H IV 03/15/25 22:00 03/16/25 21:59 03/15/25 21:23 67 MLS/HR Morphine Sulfate 1 mg Q4HP PRN IV 03/15/25 14:30 03/16/25 06:19 1 MG laboratory and microbiology Laboratory Tests 03/16/25 04:48 Test 03/16/25 04:48 Range/Units Serum Glucose 192 H 74-106 mg/dL Problem List/Assessment/Plan Problem List/Assessment/Plan ASSESSMENT AND PLAN: ID Problem List: -Perforated small bowel with persistent leak; intra-abdominal sepsis; status post multiple exploratory laparotomies with adhesiolysis and enteroenterostomies; CARMEN drains in place -Septic shock; acute hypoxic respiratory failure -Acute kidney injury (ISRRAEL) with acute tubular necrosis (ATN) improved -Transaminitis likely ischemic hepatitis improving -Thrombocytopenia (worsened ~9/10 while on vancomycin/fluconazole) -Diabetes mellitus -On apixaban (Eliquis) for last 2 weeks indication unclear -Past surgical history: section; hernia repair Assessment This is a 10 y.o. female with diabetes and prior and hernia repair, who presented with 4 days of sharp lower abdominal pain. Initial ED evaluation notable for CT A/P demonstrating free intraperitoneal air and small bowel inflammatory changes concerning for perforated viscus with mild ascites and mesenteric stranding. She underwent an exploratory laparotomy on 01/13 with lysis of adhesions, small bowel enteroenterostomy, and placement of two Mendel- Steele drains; peritoneal cultures at that time grew Escherichia coli and Klebsiella pneumoniae (both ceftriaxone susceptible). Postoperatively she required norepinephrine (Levophed) and broad-spectrum antibiotics. Course complicated by recurrent sepsis and suspected enterocutaneous/peritoneal contamination, requiring re-exploration on 02/03 with evacuation of copious intra-abdominal infection/abscesses and revision of anastomosis; intraoperative cultures reportedly not obtained. A drain sample dated 01/28 grew Stenotrophomonas (TMP-SMX susceptible). Ongoing respiratory issues prompted empiric vancomycin, later discontinued when sputum grew only Zoe albicans. A third operation on 02/25 for persistent feculent leakage and peritonitis showed a distal ileal perforation proximal to adhesional obstruction; this was resected with primary anastomosis, and further adhesiolysis performed. Upper GI series on 03/04 demonstrates contrast extravasation from proximal small bowel (likely left jejunum) near a surgical drain, consistent with a persistent leak that appears to be adequately drained clinically. She has been afebrile since 03/03, is extubated to 2 L NC, hemodynamically supported on low-dose norepinephrine, and clinically stable abdominally (nontender). LFTs that had peaked during ischemic episodes are improving. Renal function has improved from admission. Cultures/culture interpretation: Earlier peritoneal cultures with E. coli and Klebsiella; drain fluid with Stenotrophomonas (01/28) and subsequent peritoneal/aspirate samples showing E. coli and vancomycin-resistant Enterococcus (VRE) on 03/02; one of four blood culture bottles (03/07) positive for Staphylococcus epidermidis, felt to be contaminant. Given the persistent bowel leak with external drainage and the timing/source of cultures, current drain cultures are likely colonization and may not represent true invasive pathogens. Antimicrobial course (per transcript): initial piperacillin-tazobactam (Zosyn) + vancomycin through 01/19; vancomycin stopped for suspected contribution to thrombocytopenia; courses including meropenem and micafungin through 01/31; then levofloxacin + metronidazole + micafungin through 02/03; meropenem continued thereafter with vancomycin re-trial for presumed pneumonia (later stopped by 02/21 after Zoe-only sputum); micafungin added/continued; trimethoprim- sulfamethoxazole (Bactrim) started 02/21 for Stenotrophomonas coverage; transcript also notes meropenem and rifampin continued until today. 03/16: sp NGT removal, stoma and drain with output. off levophed Plan: -Intra-abdominal sepsis with persistent small bowel leak: -Source control: continue to ensure CARMEN drains are functioning; avoid routine re- culturing from drains as results likely represent colonization and may mislead management. -Imaging monitoring: recommend repeat CT abd pelvis pelvis prior to discharge to ensure bowel leak is contained. -Antibiotics: -De-escalate broad coverage toward enteric pathogens (E. coli/Klebsiella) and away from agents targeting colonizers. -No ongoing coverage for Stenotrophomonas is required at this time. -No coverage for VRE is recommended; -Continue piperacillin-tazobactam (Zosyn). recommend continuing until bowel drainage slows to under 100cc daily and bowel leak in confirmed contained. -Antifungal: can stop micafungin at this sp 14 days course, no ongoing concern for abdominal fungal infection. -Duration: continue until leak is resolved or clearly contained with clinical improvement. -Transition to oral therapy when patient can tolerate and when clinically appropriate. -Respiratory: extubated to 2 L NC; supportive care; chest radiograph with persistent interstitial opacities, left basilar consolidation, small pleural effusions monitor clinically. -Renal: ISRRAEL/ATN improved (Cr now ~0.99); continue renal dosing of antimicrobials as indicated; monitor BMP. -Hepatic: transaminases improving from prior ischemic hepatitis; trend LFTs. -Hematology: platelet count currently ~118 K; monitor CBC. -Anticoagulation: on apixaban (Eliquis) for unclear indication per history; reconcile indication and risk/benefit with primary/surgical teams in context of recent surgeries/leak. -Nutrition/NG: continue NG suction per surgery; nutrition per surgical/ICU teams. -Lines/Drains: maintain CARMEN drains; monitor output and character; avoid routine drain cultures. -Follow-up: ID will continue to follow clinically; adjust therapy as new data emerge. Authorized and Performed by: sheron pedraza Total critical care time: Approximately 56 minutes Due to a high probability of clinically significant, life threatening deterioration, the patient required my highest level of preparedness to intervene emergently and I personally spent this critical care time directly and personally managing the patient. This critical care time included obtaining a history; examining the patient; pulse oximetry; ordering and review of studies; arranging urgent treatment with development of a management plan; evaluation of patient's response to treatment; frequent reassessment; and, discussions with other providers. This critical care time was performed to assess and manage the high probability of imminent, life-threatening deterioration that could result in multi-organ failure. It was exclusive of separately billable procedures and treating other patients and teaching time. Isolation Precautions: standard \*Assessment and plan were discussed with the patient as written above (when able/appropriate). \*Plan is subject to change pending incorporation of new incoming information/diagnostics. Updates may be added as addendum at the bottom (OR TOP) of this note. Thank you for the consult. ID will continue to follow. Please contact Infectious Disease for any questions or concerns. Electronically signed by: Sheron Pedraza MD, 03/11/2025 \ Physical Exam: General: NAD Neck: Supple. No masses. HEENT: PERRL. Normal lids and conjunctiva. Moist mucous membranes. Oropharynx without lesions, exudates or excessive erythema. Normal appearance of the external aspects of the nose and ears. Heart: Regular rhythm, normal rate. No murmur. No lower extremity edema. Lungs: Normal respiratory effort. Clear to auscultation bilaterally. No wheezes. No crackles. Abdomen: Soft. Non-tender. Non-distended. No masses or abdominal hernia. drain and stoma functional . Msk: No digital cyanosis. Normal strength and tone in all 4 limbs Skin: Warm and dry, no rashes. Neuro: Alert. No facial droop or slurred speech. Extra-ocular movements intact. Sensation intact to soft touch in all 4 limbs. Psych: Appropriate mood. Full affect. Oriented to person, place, time, and situation. Plan discussed with: Patient Dietary Evaluation Review Comments: Nutrition Recommendation: 1) TPN to meet at least 75% estimated needs within 7 days 2) Monitor NPO status, lab values, wt trend, I/O Expected Outcomes/Goals: To meet >75% estimated needs Lab values to improve Fu 2-3 days Is there a minimum of two crit: Yes CC Plasma Assessment Blood Product Administration S: [id number] SHERON PEDRAZA MD Mar 16, 2025 07:07
--- NOTE | 2025-03-16 10:45 | DVHPN2 ---
Progress Note Date Seen: Mar 16, 2025 Has the PT tested + for MRSA If YES, has PT been informed?: No Medical Necessity Reason Pt with a Central, PICC or Fol: Yes The following are medically ne: PICC Line, Leach Catheter Reason for leach catheter: Strict I&O Objective vital signs Vital Sign Date Time Temp Pulse Resp B/P (MAP) Pulse Ox O2 Delivery O2 Flow Rate FiO2 03/16/25 08:00 98.1 93 21 92/48 (63) 99 98.1 03/15/25 20:00 Room Air* 0 21 Total Intake and Output 03/15/25 03/15/25 03/16/25 15:00 23:00 07:00 Intake Total 964 ml 774 ml 936 ml Output Total 805 ml 1350 ml Balance 964 ml -31 ml -414 ml medications Current Medications Medications Dose Ordered Sig/Isaura Route Start Time Stop Time Status Last Admin Dose Admin Cefazolin Sodium 50 ml @ 100 mls/hr Q8HR IV 01/13/25 14:00 UNV Vasopressin 20 units/Sodium Chloride 100 ml @ 9 mls/hr Q11H7M IV 01/13/25 18:45 UNV Potassium Chloride 100 ml @ 50 mls/hr Q2H IV 01/16/25 12:45 01/16/25 18:44 UNV Vancomycin HCl 100 ml @ 100 mls/hr DAILY@1200 IV 01/20/25 12:00 UNV Amino Acids 0 ml @ 0 mls/hr PER PHARMACY IV 02/13/25 10:45 Ondansetron HCl 4 mg Q4HPRN PRN IV 02/21/25 09:30 03/12/25 17:08 4 MG Multi-Ingredient Ointment 1 applic DAILY TOP 02/23/25 10:00 03/16/25 10:02 1 APPLIC Norepinephrine Bitartrate 250 ml @ 3.75 mls/hr Q24H IV 02/25/25 11:45 02/26/25 11:51 7.5 MLS/HR Diagnostic Test (Pha) 1 strip Q4HR 02/26/25 16:00 Cancel Dextrose 50 ml UD PRN IV 02/26/25 14:15 Diagnostic Test (Pha) 1 strip IQ4HR 02/26/25 16:00 UNV Dextrose 50 ml UD PRN IV 02/26/25 16:00 UNV Insulin Human Regular Q6HR SC 03/02/25 12:00 03/16/25 06:15 6 UNITS Pantoprazole Sodium 40 mg BID IV 03/08/25 22:00 03/16/25 10:02 40 MG Levothyroxine Sodium 50 mcg DAILY IV 03/09/25 10:00 03/16/25 10:02 50 MCG Piperacillin Sod/ Tazobactam Sod 100 ml @ 25 mls/hr Q8HR IV 03/11/25 14:00 03/16/25 06:15 25 MLS/HR Lidocaine 1 patch DAILY TOP 03/12/25 10:00 03/16/25 10:02 1 PATCH Potassium Chloride/Dextrose/ Sod Cl 1,000 ml @ 50 mls/hr Q20H IV 03/13/25 14:00 03/16/25 01:52 50 MLS/HR Fat Emulsion Intravenous 150 ml/Sodium Acetate 60 meq/Potassium Acetate 20 meq/ Potassium Phosphate 22 meq/ Magnesium Sulfate 10 meq/ Multivitamins 10 ml/Insulin Human Regular 5 units/ Amino Acids/ Dextrose/Purified Water 1,607.55 ml @ 67 mls/hr Q24H IV 03/15/25 22:00 03/16/25 21:59 03/15/25 21:23 67 MLS/HR Morphine Sulfate 1 mg Q4HP PRN IV 03/15/25 14:30 03/16/25 06:19 1 MG Fat Emulsion Intravenous 150 ml/Sodium Acetate 70 meq/Potassium Acetate 40 meq/ Potassium Phosphate 22 meq/ Magnesium Sulfate 14 meq/ Multivitamins 10 ml/Insulin Human Regular 8 units/ Amino Acids/ Dextrose/Purified Water 1,723.58 ml @ 72 mls/hr [id number] IV 03/16/25 22:00 03/17/25 21:59 laboratory and microbiology Laboratory Tests 03/16/25 04:48 Test 03/16/25 04:48 Range/Units Serum Glucose 192 H 74-106 mg/dL Problem List/Assessment/Plan Problem List/Assessment/Plan 01/14/25 afebrile, low dose BP support, received transfusion, I believe her decreased hematocrit is due to hemodilution. abdomen non distended, soft, wound clean and well approximated, drainage serous . remains intubated and sedated 01/16/25 ALKALOSIS, ABDOMEN NON DISTENDED, SOFT, DRAINAGE SEROUS, WOUND CLEAN AND WELL APPROXIMATED 01/17/25 improved, thrombocytopenia possibly made worse by Fluconazole,will DC, abdomen non distended, wound well approximated without infection, TATY drainage serous, CVP 6, good urine output. 01/18/25 abg reviewed, ,abdomen soft, non distended, TATY drainage clear serous, no bowel activity, febrile, urine output ok, continues with thrombocytopenia,pt and inr slightly elevated. prognosis grave. 01/20/25remains sedated on ventilator, abdomen soft, non distended, faint bowel sounds auscultated by nurse, wound clean and well approximated, TATY drainage clear serous. continues with thrombocytopenia, still behind on intravascular volume( BUN and Creatinine elevated), i would give more IV fluids and DC vancomycin. 01/25/25 afebrile, normotensive, wound clean and well approximated, TATY drainage serous, abdomen non distended, soft, gastrografin small bowel series shows non obstructed GI tract and no evidence of extravasation. It is OK to initiate enteric feedings. 01/29/25 16 DAYS POST OPERATIVELY TRHE TATY DRAINAGE WHICH HAD CONSISTENTLY BEEN SEROUS OR SERO SANGUINEOUS HAS BECOME "DIRTY" BROWNISH DISCOLORATION, HER WOUND IS CLEAN AND WELL APPROXIMATED AND HER ABDOMEN IS SOFT AND NON DISTENDED, CT SCAN SHOWS SO0ME FLUID AND ACCUMULATION OF FLUID AROUND THE SPLEEN, WILL REQUEST CT GUIDED ASPIRATION OF SAME, WILL ORDER IRRIGATION OF DRAINS. SHE SI AFEBRILE AND MAINTAINS NORMAL BLOOD PRESSURE, HER WBC IS NORMAL. 01/30/25 improved, awake, being weaned off vent. abdomen non distended, non tender, taty drainage clearing with irrigation 02/02/25clinically unchanged, gastrografin small bowel series reported and normal, no extravasation reported, will order a follow [facility] KUB for tomorrow AM 02/03/25 PATIENT HAD A GASTROGRAFIN SMALL BOWEL SERIES AND A FOLLOW UP KUB X RAYS NEITHER ONE OF WHICH SHOW EXTRAVASATION OF CONTRAST OR EVIDENCE OF FREE CONTRAST IN THE PERITONEAL CAVITY. THERE IS HOWEVER VISCOUS, BROWNISH FLUID DRAINING VIA BOTH TATY DRAINS AND THROUGH INFRAUMBILICAL PORTION OF MIDLINE WOUND, I REMOVED THE RICHIE FROM THE 3 CM SECTION OF THE INFRAUMBILICAL WOUND AND EVACUATED ABOUT 30 CC OF THIS FLUID AND INSTRUCTED THE NURSE TO PLACE A STOMA APPLIANCE ON THIS OPENING. 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 TODAY HER WBC IS ELEVATED, ABDOMEN CONTINUES TO BE NON DISTENDED, SOFT, BUT SHE DOES HAVE SLIGHT TENDERNESS IN THE PERIUMBILICAL AREA. I WILL TREAT THIS EXPECTANTLY FORM THE TIME BEING IN THE HOPE THAT THIS IS A "CONTROLLED" FISTULA AND HOPEFUL WILL HEAL SPONTANEOUSLY WITH NPO AND NUTRITIONAL SUPPORT. WILL WATCH CLOSELY, AFTER A FEW DAYS WILL GET A FISTULOGRAM TO PIN POINT THE ENTERIC ORIGIN OF THE FISTULIZATION. CONTINUE NGT SUCTION AND DRAIN IRRIGATION ORDERED02/05/25 02/05/25 remains sedated and intubated?ventilated, abdomen non distended soft, wound vac in place. TATY drainage serosanguineous 02/08/25 EXTUBATED, GOOD INSPIRATORY EFFORT, BP NML WITHOUT PRESSOR SUPPORT, ABDOMEN SOFT, NON DISTENDED, APPROPRIATELY TENDER, LABS REVIEWED. NO CHANGES TODAY OTHER THAN ALLOW ICE CHIPS PO. WILL ORDER GASTROGRAFIN SMALL BOWEL FOLLOWTHROUGH FOR Friday02/09/25 awake cooperative, wound vac in place, abdomen soft, non distended, appropriately tender, TATY drainage brownish discoloration, will irrigate, her WBC is normal and she is afebrile and normotensive. gastrografin tomorrow 02/10/25 AWAKE,COMFORTABLE, DENIES PAIN, ABDOMEN NON DISTENDED APPROPRIATELY TENDER, WOUND CLEAN AND WELL APPROXIMATED, DRAINS BEING IRRIGATED, LABS OK, GOOD URINE OUTPUT. "SURGICALLY" STABLE 02/11/25 feels well, passing flatus. is hungry, abdomen soft non distended, drainage clearing with irrigation, will wait for Gastrografin small bowel series to be completed, if normal will start po clear liquids 02/12/25 no nausea, change in TATY drainage colort, appears to contaIN, BILE, WILL DC po CLEAR LIQUIDS, CONTINUE ICE CGHIPS, SEND DRAin fluid for amylase and bilirubin, 02/13/25 states she feels well, abdomen non tender, non distended, wound clean and well approximated. drainage slightly clearer, keep npo for now, needs to resume TPN 02/14/25 PATIENT C/O BEING COLD BUT HAS NO PAIN, DRAINAGE SEEMS TO BE CLEARING, SHE HAD A BOWEL MOVEMENTS, ABDOMEN IS SOFT AND NON TENDER, NON DISTENDED, WOUND IS CLEAN AND WELL APPROXIMATED, WILL CONTINUE NPO STATUS AMYLASE ON TATY DRAINAGE FLUID IS GOING TO TAKE SEVERAL DAYS TO BECOME AVAILABLE. CONTINUE TPN 02/16/25 DENIES PAIN,STATES SHE FEELS BETTER, WOUND VAC IN PLACE, ABDOMEN NON TENDER,NON DISTENDED, TATY DRAINAGE SMALL TO MODERATE , WILL CONTINUE IRRIGATING DRAINS, WILL REQUEST GI CONSULT TO CONSIDER ENDOSCOPY. WBC NL,H/H STABLE , ALBUMIN STILL VERY LOW. , 02/17/25 CT SCAN REVIEWED, I SUSPECT THERE IS A SMALL LEAK FROM THE APPEARANCE OF IMAGING ALTHOUGH RADIOLOGIST RECOMMENDED REPEAT CT SCAN (ORDERED). THE DRAINAGE IS SMALL AMOUNT BUT NOW IT IS WITH AN ODOR, I WILL RE INSERT NGT TO ATTEMPT DECREASING THE GASTRIC CONTENTS. ABDOMEN IS SOFT, APPROPRIATELY TENDER, WOUND VAC IN PLACE 02/18/25 AFEBRILE, NORMOTENSIVE4, WBC NL, ALL IMAGING NEGATIVE, ANGIOGRAM SHOWS NO EVIDENCE OF HYPOPERFUSION, CONTRAST AND NON CONTRAST CT SCAN FAILED TO SHOW ANY EVIDENCE OF EXTRAVASATION, THE DRAINAGE CONTINUES TO BE BROWNISH DISCOLORED AND FOULS SMELLING, EXPLAINED TO PT'S SON THAT I HAVE NO EVIDENCE OF ANY GI LEAKAGE, WILL GET A GASTROGRAFIN ENEMA ON FRIDAY, I AM TRYING TO REFRAIN FROM OPERATING ON THE FRAIL ELDERLY PATIENT FOR THE THIRD TIME, SHE WILL NOT TOLERATE ANOTHYER OPERATION WELL. HER ALBUMIN REMAINS VERY LOW.WOUND VAC OK 02/19/25 feels ok,c/o being cold, abdomen soft. non distended, minimally tender, drainage seems to be little less, labs ok, continue as is 02/22/25 she feels well, abdomen is non tender, soft and non distended, drainage slightly less in volume, still discolored,gastrografin enema reviewed by me ( no radiologist/s interpretation available), she has not evacuated the gastrografin according to nurse. 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 will proceed with operation on 02/25/25 at 0715 AM. 02/27/25 SLIGHT IMPROVEMENT, ABDOMEN SOFT, NON DISTENDED, STOMA VIABLE WITHOUT FUNCTION, OK TO TRY GETTING OFF VENTILATOR. 03/01/25 extubated, conversant,oriented, abdomen non distended, appropriately tender, wound clean ans well approximated, drainage serous, stoma viable and with minimal liquid,no gas. will sips of water and ice po 03/02/25 awake comfortable, denies pain, abdomen appropriately tender, wound vac in place, afebrile, normotensive, drainage serosanguineous, cbc stable, stoma viable and with minimal output will resume irrigation of drain 03/03/25 awake ,cooperative, good inspiratory effort, afebrile, normotensive, wound covered with wound vac, drainage serous but cloudy(cultures ordered) abdomen non tender, stoma viable with minimal output. will order gastrografin ugi with small bowel follow throught for tomorow 03/04/25 vital signs stable, good urine output, wound vac ok, abdomen non tender. Xray pending 03/05/25 UGI X RAY SHOWS A NEW AREA OF LEAK,BEING ADEQUATELY DRAINED BY THE TATY DRAIN WHICH IS ADJACENT TO IT, HER ABDOMEN IS NON TENDER. WILL RESUME STRICT NPO STATUS, KEEP NGT TO CONTINUOUS SUCTION, I HAVE CALLED HER SON ILIANA AND EXPLAINED THAT PROBABLY THE INTESTINAL WALL IS NOT HEALING WHENEVER WE PLACE SUTURE AT SITES OF ANASTOMOSES. HER ABDOMEN IS NON TENDER, I WILL TREAT THIS CONSERVATIVELY FOR SOME TIME TO SEE IF THE LEAK MAY SHOW SOME EVIDENCE OF HEALING. YESTERDAY THERE WAS 500 CC OF TATY DRAINAGE. HER ALBUMIN LEVEL IS SLOWLY IMPROVING BUT STILL REMAINS LOW. IT APPEARS THAT THE SUTURES IN HER INTESTINAL ANASTOMOSES HOLD FOR ABOUT A WEEK AND THEN BREAK DOWN. (DRAINAGE TURNED FROM SEROSANGUINEOUS TO GREENISH YESTERDAY. 03/06/25 drainage slightly less in volume, still enteric contents abdomen softn and non tender, non distended. wound vac changed, wound healing, no chjanges for now. discussed with family. 03/08/29 feels better, no pain, abdomen soft and non tender, drainage minimally less, family at bedside, answered questions 03/09/25 son at bedside, patient feels "well" wants to eat, explained that we need to keep her intestine at rest' afebrile, normotensive, drainage less, abdomen non tender, wound vac in p-lace wbc normal today. h/h stable/ continue npo aqnd ngt there is stool in stoma appliance 03/13/25 SLOW IMPROBVEMENT,ABDOMEN NON TENDER, NON DISTENDED, SOME STOOL IN STOMA, DRAINAGE SLIGHTLY LESS VOLUME, CONTINUE IS, NEEDS MOR IV FLUYID (ORDERS GIVEN) 03/15/25 stable, having the NG tube clamped did not cause distress nor did it result in increase of the TATY drainage ,I have therefore removed the NG tube, she does need to remain NPO however, if there are no major changes in her condition in the next 48 hours she would be stable to transfer to a SNF on TPN, I will gladly make "house calls " on here at the facility . abdomen remains non distended, non tender, wound awaiting a wound vac but it is without evidence of infection, I have digitally probed the styoma which has inverted on itself, it is patent ancd without stenosis below the skin level. 03/16/25 comfortable, wound vac being applied, wound clean and granulating, drainage unchanged, abdomen soft and nontender, labs reviewed, albumin continues low, minimal stool, in stoma, Plan discussed with: Patient, Other Dietary Evaluation Review Comments: Nutrition Recommendation: 1) TPN to meet at least 75% estimated needs within 7 days 2) Monitor NPO status, lab values, wt trend, I/O Expected Outcomes/Goals: To meet >75% estimated needs Lab values to improve Fu 2-3 days Is there a minimum of two crit: Yes MELVA RAMESH MD Mar 16, 2025 10:45
--- NOTE | 2025-03-16 11:18 | DVHPNRES ---
Progress Note Date Seen: Mar 16, 2025 Resident Creating Document: ASHLEY TREJO RESIDENT Has the PT tested + for MRSA If YES, has PT been informed?: No Medical Necessity Reason Pt with a Central, PICC or Fol: Yes The following are medically ne: PICC Line, Leach Catheter Reason for leach catheter: Strict I&O Subjective Review of Systems This is a 80-year-old lady with past medical history of hypertension, AFib (on Eliquis), diabetes type 2, CKD, came to the hospital due to abdominal pain, and constipation. Admitted on 01/13/2025. Found to have peritonitis due to bowel perforation, and underwent emergent laparotomy with subsequent resection of perforated small bowel and enteroenterostomy. Due to abnormal CARMEN drainage, second exploratory laparotomy performed on 02/04 and found to have perforation near to previous perforation area, underwent resection of area with subsequent anastomosis of proximal jejunal loops. 02/09/2025: Patient seen in the ICU. Continued to be NPO. On 2 L oxygen via nasal cannula. Wound VAC is mild functional, yellowish drainage from incision site, CARMEN drain is functional, draining greenish bile. No signs of fever. No any other night complaints. 02/10/2025: Patient seen and ICU. Patient is to be continued on NPO. Is on room air, wound care to be done, wet-to-dry. Surgery following, low intermittent suction of NG tube, 130 mL of greenish fluid from CARMEN drain, 50 mL from NG tube noted. 02/11/2025: Patient seen in ICU. Patient is to be continued on NPO, is on room air, wound care is wet-to-dry, patient is getting TPN, had 145 removal of greenish drainage from CARMEN drain. Patient has nonblanching redness on sacrum. Today she came complains of 8/10 pain in the abdomen and back. NG tube was clamped. Following surgery. 02/12/25: patient seen in the ICU. She is still NPO. on room air, wound cares were too dry, NG tube removed. Still greenish drainage from CARMEN drain, blackish stool in the colostomy bag. She still complains of pain in the abdomen, back. PT is able to get her to wheelchair. surgery following. 02/13/2025: Patient seen in the ICU. She is still NPO, on TPN, on room air wound care is wet to dry NG tube was removed yesterday. There is blackish stool, blood seen in the colostomy bag today. She still complains of abdominal pain, there was greenish drainage in the wound. Foleys changed, aspirate culture ordered, Objective vital signs Vital Sign Date Time Temp Pulse Resp B/P (MAP) Pulse Ox O2 Delivery O2 Flow Rate FiO2 03/16/25 08:00 98.1 93 21 92/48 (63) 99 98.1 03/15/25 20:00 Room Air* 0 21 Total Intake and Output 03/15/25 03/15/25 03/16/25 15:00 23:00 07:00 Intake Total 964 ml 774 ml 936 ml Output Total 805 ml 1350 ml Balance 964 ml -31 ml -414 ml medications Current Medications Medications Dose Ordered Sig/Isaura Route Start Time Stop Time Status Last Admin Dose Admin Cefazolin Sodium 50 ml @ 100 mls/hr Q8HR IV 01/13/25 14:00 UNV Vasopressin 20 units/Sodium Chloride 100 ml @ 9 mls/hr Q11H7M IV 01/13/25 18:45 UNV Potassium Chloride 100 ml @ 50 mls/hr Q2H IV 01/16/25 12:45 01/16/25 18:44 UNV Vancomycin HCl 100 ml @ 100 mls/hr DAILY@1200 IV 01/20/25 12:00 UNV Amino Acids 0 ml @ 0 mls/hr PER PHARMACY IV 02/13/25 10:45 Ondansetron HCl 4 mg Q4HPRN PRN IV 02/21/25 09:30 03/12/25 17:08 4 MG Multi-Ingredient Ointment 1 applic DAILY TOP 02/23/25 10:00 03/16/25 10:02 1 APPLIC Norepinephrine Bitartrate 250 ml @ 3.75 mls/hr Q24H IV 02/25/25 11:45 02/26/25 11:51 7.5 MLS/HR Diagnostic Test (Pha) 1 strip Q4HR 02/26/25 16:00 Cancel Dextrose 50 ml UD PRN IV 02/26/25 14:15 Diagnostic Test (Pha) 1 strip IQ4HR 02/26/25 16:00 UNV Dextrose 50 ml UD PRN IV 02/26/25 16:00 UNV Insulin Human Regular Q6HR SC 03/02/25 12:00 03/16/25 06:15 6 UNITS Pantoprazole Sodium 40 mg BID IV 03/08/25 22:00 03/16/25 10:02 40 MG Levothyroxine Sodium 50 mcg DAILY IV 03/09/25 10:00 03/16/25 10:02 50 MCG Piperacillin Sod/ Tazobactam Sod 100 ml @ 25 mls/hr Q8HR IV 03/11/25 14:00 03/16/25 06:15 25 MLS/HR Lidocaine 1 patch DAILY TOP 03/12/25 10:00 03/16/25 10:02 1 PATCH Potassium Chloride/Dextrose/ Sod Cl 1,000 ml @ 50 mls/hr Q20H IV 03/13/25 14:00 03/16/25 01:52 50 MLS/HR Fat Emulsion Intravenous 150 ml/Sodium Acetate 60 meq/Potassium Acetate 20 meq/ Potassium Phosphate 22 meq/ Magnesium Sulfate 10 meq/ Multivitamins 10 ml/Insulin Human Regular 5 units/ Amino Acids/ Dextrose/Purified Water 1,607.55 ml @ 67 mls/hr Q24H IV 03/15/25 22:00 03/16/25 21:59 03/15/25 21:23 67 MLS/HR Morphine Sulfate 1 mg Q4HP PRN IV 03/15/25 14:30 03/16/25 06:19 1 MG Fat Emulsion Intravenous 150 ml/Sodium Acetate 70 meq/Potassium Acetate 40 meq/ Potassium Phosphate 22 meq/ Magnesium Sulfate 14 meq/ Multivitamins 10 ml/Insulin Human Regular 8 units/ Amino Acids/ Dextrose/Purified Water 1,723.58 ml @ 72 mls/hr [id number] IV 03/16/25 22:00 03/17/25 21:59 Examination Pt is lying on bed General Appearance: Alert and Oriented x2 HEENT: Atraumatic, Mucous membranes moist/pink Respiratory: Clear to auscultation, Normal air movement, No added sounds Cardiovascular: Regular rate, Normal S1, Normal S2, No murmurs Abdominal: Active bowel sounds, Soft, no distention, no tenderness, colostomy bag in place and 1 CARMEN drain with greenish fluid Extremities: There is bilateral upper extremity edema, with seeping fluid Skin: No Significant rash, except past surgical scars Neuro: more alert and oriented Nurse was there as watch inspector during examination laboratory and microbiology Laboratory Tests 03/16/25 04:48 Test 03/16/25 04:48 Range/Units Serum Glucose 192 H 74-106 mg/dL Microbiology Date/Time Source Procedure Growth Status 03/07/25 08:32 Blood Blood Culture - Final Staphylococcus epidermidis Complete 03/02/25 16:00 Urine - [place] Urine Culture - Final Complete 03/02/25 16:00 Aspirate Gram Stain - Final Resulted 03/02/25 16:00 Body Fluid Culture - Preliminary Enterococcus faecium - VRE Escherichia coli Resulted 02/25/25 11:48 Sputum Gram Stain - Final Complete 02/25/25 11:48 Sputum Respiratory Culture - Final Complete 01/13/25 17:10 Nose MRSA Screen - Final Complete Problem List/Assessment/Plan Problem List/Assessment/Plan Neurology # Chronic ischemic changes # Chronic Cortical atrophy - Head CT (01/29): Chronic microangiopathy and cortical atrophy. - reintubated on 02/25/25 during surgery # Extubated on 02/28 Cardiovascular # Septic shock secondary to hollow viscus perforation. # Paroxysmal atrial fibrillation with a second-degree hypercoagulable state currently NSR # Chronic diastolic heart failure with preserved EF 65% # Hypertension. - Echocardiogram (01/15): Normal LV EF (65%), mild LVH, mild LV diastolic dysfunction. - Chest X-ray: Bibasilar atelectasis. - ZEFERINO?DS?-VASc score >5 - cardiology on board - initially on Lovenox therapeutic but Dc'd due to low hemoglobin - Labetalol PRN Pulmonary # Acute hypoxic respiratory failure secondary to bilateral pleural effusion/pneumonia s/p re-intubation, status post extubation 02/28 - monitor with daily CXR - Sputum culture 01/29 Presumptive Zoe albicans and : negative - Reintubated on 02/25. - Chest Physiotherapy ongoing. - extubated today Gastrointestinal / Liver # Acute Bacterial Peritonitis due to small bowel perforation vs Perisplenic abscess. s/p multiple laparotomies # Transaminitis secondary to shock. # Anion gap metabolic acidosis due to bowel ischemia and lactic acidosis - CT abdomen/pelvis (02/16): Pneumoperitoneum, extraluminal contrast, perisplenic/subdiaphragmatic collection (7.1 1.1 cm). - Small bowel series (02/11): Normal. - Gastrografin (02/21): [place]-enteric fistula, contrast leak from distal transverse colon. Procedures: - First laparotomy (01/13): Resection of perforated small bowel, enteroenterostomy. - Second laparotomy (02/04): Resection near previous perforation, jejunal anastomosis. - Third laparotomy (02/25): Resection of distal ileum, end-to-end anastomosis, ileostomy. Cultures: - Peritoneal fluid (01/13): E. coli, Klebsiella pneumoniae (sensitive to meropenem). - Peritoneal fluid (02/17): E. coli, Stenotrophomonas maltophilia. - Aspirate Showed(03/02): VRE - IR-guided pigtail drain placed; drained 50 cc purulent fluid. - CARMEN drains placed in 4 quadrants initially and now patient has only 1 CARMEN drain - Initially NPO, TPN initiated. - NG tube placed. - IV antimicrobials Daptomycin meropenem and micafungin - Initially patient is on Levofloxacin, Flagyl (02/03); Vancomycin and Meropenem (); Meropenem (); Vancomycin () then eventually switched to above antimicrobials - Started Daptomycin (03/08), Bactrim stopped (03/08) -Gastrografin scan(03/05) showed Contrast extravasation is seen in the proximal small bowel, possibly left sided jejunum near the surgical drain can be seen with a leak. -patient kept NPO - NG tube removed (03/15) Genitourinary / Kidney # ISRRAEL likely secondary to shock/volume depletion- resolved - Nephrology consulted for ISRRAEL. Endocrine # Hypothyroidism: TSH 42.29, low T4 # Type 2 diabetes mellitus: HbA1c 8.2%.- # Episodes of hypoglycemia. # Hypothyroidism - continuously monitoring blood glucose and on ISS - Started on Levothyroxine 50 daily Metabolic Hypokalemia. Hyperkalemia. Hyponatremia: D5W at 75 mL/hr per nephrology. Hypophosphatemia: given IV phosphate Nutrition: Severe protein malnutrition. Hematology # Acute on chronic anemia (hemodilution/post-surgical). # Severe thrombocytopenia, HIT # Acute DVT of right upper extremity. - Ultrasound (01/17): Partial thrombus in right internal jugular and cephalic veins. - hemoglobin today 6.9, transfused 1 more unit of PRBC 02/28 - Transfused total 8 units PRBC, 2 platelet units. - continuously monitor H&H - hold blood thinners Musculoskeletal / Skin # Rib fracture due to fall. Nutrition: TPN initiated. Bowel Regimen: As needed. GI Prophylaxis: Pantoprazole bid DVT Prophylaxis: Lovenox (held/ Dc'd due to low hemoglobin). Lines / Tubes / Devices Airway: Intubated on 01/14, extubated on 02/07, reintubated on 02/25 extubated 02/28 Vascular Access: PICC line placed in right upper thigh on 01/26. Drips: Dc'd pressors and sedatives. Urinary: Leach catheter placed on 01/14, exchanged on 02/14. Exchanged on 03/17. CARMEN drains in 1 quadrant. NG tube removed,(03/15) Goals of care addressed with patient's family members for more than 29 minutes: Full code status Care plan updated to the patient family Chris (son) on bedside and addressed all concerns Critical care time spent more than 81 minutes excluding procedures and including discussion with the family. Long stephanie son Chris- reviewed labs and discussed treatment plan and options Case discussed with Dr. Galeana and RN Plan discussed with: Librado Dietary Evaluation Review Comments: Nutrition Recommendation: 1) TPN to meet at least 75% estimated needs within 7 days 2) Monitor NPO status, lab values, wt trend, I/O Expected Outcomes/Goals: To meet >75% estimated needs Lab values to improve Fu 2-3 days Is there a minimum of two crit: Yes CC Plasma Assessment Blood Product Administration S: [id number] Date of Service: Mar 16, 2025 Billing Provider: ZBIGNIEW SELF MD Common Visit Codes: [id number] CARE 30-74 MIN, [id number] CARE-EACH +30MIN ASHLEY TREJO Mar 16, 2025 11:18 ZBIGNIEW SELF MD Mar 17, 2025 12:34
[2025-03-16 16:20] LABS: Urine Budding Yeast FEW /hpf (None Seen); Urine Protein, UAD TRACE (Negative)
[2025-03-16] MEDS: TPN PER PHARMACY IV NR (21:21)
[2025-03-17] VITALS (43 sets, daily range): BP systolic 89–134; BP diastolic 45–66; PULSE 85–115; RESP 13–30; TEMP 97.5–99.6; O2SAT 94–100
[2025-03-17 05:27] LABS: Nucleated Red Blood Cells % 0.1 %
[2025-03-17 05:31] LABS: Hematocrit 23.6 % (36.0-46.0); Hemoglobin 8.0 g/dL (12.2-16.2); Mean Corpuscular Hemoglobin 34.4 pg (28.0-32.0); Mean Corpuscular Volume 101.4 fL (80.0-100.0)
[2025-03-17 05:43] LABS: Alanine Aminotransferase 34 U/L (7-40); Anion Gap 9 (5-15); BUN/Creatinine Ratio 30.6 (10.0-20.0); Calcium 9.3 mg/dL (8.7-10.4); Carbon Dioxide 23 mmol/L (20-31); Magnesium 2.0 mg/dL (1.6-2.6); Potassium 3.5 mmol/L (3.5-5.1); Sodium 139 mmol/L (136-145)
[2025-03-17 05:57] LABS: Albumin 2.1 g/dL (3.2-4.8); Alkaline Phosphatase 139 U/L (46-116); Bilirubin, Total 2.7 mg/dL (0.2-1.0); Blood Urea Nitrogen 30 mg/dL (9-23); Chloride 107 mmol/L (98-107); Glucose 207 mg/dL (74-106); Total Protein 5.3 g/dL (5.7-8.2)
--- NOTE | 2025-03-17 08:15 | DVHPN2 ---
Subjective Date Seen: Mar 17, 2025 Post op day Post op day: 14 Patient reports: Feels better (NG tube stopped, TPN ordered. over 200cc of drainage from drain.) Objective Vitals Vital Sign Date Time Temp Pulse Resp B/P (MAP) Pulse Ox O2 Delivery O2 Flow Rate FiO2 03/17/25 07:30 97.5 92 20 131/56 (81) 98 97.5 03/16/25 20:00 Room Air* 0 21 Total Intake and Output 03/16/25 03/16/25 03/17/25 15:00 23:00 07:00 Intake Total 936 ml 2420 ml 976 ml Output Total 1225 ml 980 ml Balance 936 ml 1195 ml -4 ml Medications Current Medications Medications Dose Ordered Sig/Isaura Route Start Time Stop Time Status Last Admin Dose Admin Cefazolin Sodium 50 ml @ 100 mls/hr Q8HR IV 01/13/25 14:00 UNV Vasopressin 20 units/Sodium Chloride 100 ml @ 9 mls/hr Q11H7M IV 01/13/25 18:45 UNV Potassium Chloride 100 ml @ 50 mls/hr Q2H IV 01/16/25 12:45 01/16/25 18:44 UNV Vancomycin HCl 100 ml @ 100 mls/hr DAILY@1200 IV 01/20/25 12:00 UNV Amino Acids 0 ml @ 0 mls/hr PER PHARMACY IV 02/13/25 10:45 Ondansetron HCl 4 mg Q4HPRN PRN IV 02/21/25 09:30 03/12/25 17:08 4 MG Multi-Ingredient Ointment 1 applic DAILY TOP 02/23/25 10:00 03/16/25 10:02 1 APPLIC Norepinephrine Bitartrate 250 ml @ 3.75 mls/hr Q24H IV 02/25/25 11:45 02/26/25 11:51 7.5 MLS/HR Diagnostic Test (Pha) 1 strip Q4HR 02/26/25 16:00 Cancel Dextrose 50 ml UD PRN IV 02/26/25 14:15 Diagnostic Test (Pha) 1 strip IQ4HR 02/26/25 16:00 UNV Dextrose 50 ml UD PRN IV 02/26/25 16:00 UNV Insulin Human Regular Q6HR SC 03/02/25 12:00 03/17/25 06:05 6 UNITS Pantoprazole Sodium 40 mg BID IV 03/08/25 22:00 03/17/25 07:57 40 MG Levothyroxine Sodium 50 mcg DAILY IV 03/09/25 10:00 03/17/25 07:57 50 MCG Piperacillin Sod/ Tazobactam Sod 100 ml @ 25 mls/hr Q8HR IV 03/11/25 14:00 03/17/25 06:04 25 MLS/HR Lidocaine 1 patch DAILY TOP 03/12/25 10:00 03/17/25 07:58 1 PATCH Potassium Chloride/Dextrose/ Sod Cl 1,000 ml @ 50 mls/hr Q20H IV 03/13/25 14:00 03/16/25 21:12 50 MLS/HR Morphine Sulfate 1 mg Q4HP PRN IV 03/15/25 14:30 03/17/25 02:14 1 MG Fat Emulsion Intravenous 150 ml/Sodium Acetate 70 meq/Potassium Acetate 40 meq/ Potassium Phosphate 22 meq/ Magnesium Sulfate 14 meq/ Multivitamins 10 ml/Insulin Human Regular 8 units/ Amino Acids/ Dextrose/Purified Water 1,723.58 ml @ 72 mls/hr [id number] IV 03/16/25 22:00 03/17/25 21:59 03/16/25 21:21 72 MLS/HR Iron Sucrose 110 ml @ 110 mls/hr DAILY@1200 IV 03/17/25 12:00 03/21/25 12:59 General: Normal Head/Eyes: Normal ENT: Normal Neck: Normal Lungs: Normal, Normal inspection Cardiovascular: Normal, Regular rate and rhythm Abdominal: Normal, Soft Labs and Microbiology Laboratory Tests 03/17/25 04:54 Test 03/17/25 04:54 Range/Units Serum Glucose 207 H 74-106 mg/dL Ass/Plan Labs and/or images reviewed: Labs reviewed by me, Image(s) reviewed by me Problem List Neurology # Chronic ischemic changes # Chronic Cortical atrophy - Head CT (01/29): Chronic microangiopathy and cortical atrophy. - reintubated on 02/25/25 during surgery # Extubated on 02/28 Cardiovascular # Septic shock secondary to hollow viscus perforation. # Paroxysmal atrial fibrillation with a second-degree hypercoagulable state currently NSR # Chronic diastolic heart failure with preserved EF 65% # Hypertension. - Echocardiogram (01/15): Normal LV EF (65%), mild LVH, mild LV diastolic dysfunction. - Chest X-ray: Bibasilar atelectasis. - ZEFERINO?DS?-VASc score >5 - cardiology on board - initially on Lovenox therapeutic but Dc'd due to low hemoglobin - Labetalol PRN Pulmonary # Acute hypoxic respiratory failure secondary to bilateral pleural effusion/pneumonia s/p re-intubation, status post extubation 02/28 - monitor with daily CXR - Sputum culture 01/29 Presumptive Zoe albicans and : negative - Reintubated on 02/25. - Chest Physiotherapy ongoing. - extubated today Gastrointestinal / Liver # Acute Bacterial Peritonitis due to small bowel perforation vs Perisplenic abscess. s/p multiple laparotomies # Transaminitis secondary to shock. # Anion gap metabolic acidosis due to bowel ischemia and lactic acidosis - CT abdomen/pelvis (02/16): Pneumoperitoneum, extraluminal contrast, perisplenic/subdiaphragmatic collection (7.1 1.1 cm). - Small bowel series (02/11): Normal. - Gastrografin (02/21): [place]-enteric fistula, contrast leak from distal transverse colon. Procedures: - First laparotomy (01/13): Resection of perforated small bowel, enteroenterostomy. - Second laparotomy (02/04): Resection near previous perforation, jejunal anastomosis. - Third laparotomy (02/25): Resection of distal ileum, end-to-end anastomosis, ileostomy. Cultures: - Peritoneal fluid (01/13): E. coli, Klebsiella pneumoniae (sensitive to meropenem). - Peritoneal fluid (02/17): E. coli, Stenotrophomonas maltophilia. - Aspirate Showed(03/02): VRE - IR-guided pigtail drain placed; drained 50 cc purulent fluid. - CARMEN drains placed in 4 quadrants initially and now patient has only 1 CARMEN drain - Initially NPO, TPN initiated. - NG tube placed. - IV antimicrobials Daptomycin meropenem and micafungin - Initially patient is on Levofloxacin, Flagyl (02/03); Vancomycin and Meropenem (); Meropenem (); Vancomycin () then eventually switched to above antimicrobials - Started Daptomycin (03/08), Bactrim stopped (03/08) -Gastrografin scan(03/05) showed Contrast extravasation is seen in the proximal small bowel, possibly left sided jejunum near the surgical drain can be seen with a leak. -patient kept NPO - NG tube removed (03/15) Genitourinary / Kidney # ISRRAEL likely secondary to shock/volume depletion- resolved - Nephrology consulted for ISRRAEL. Endocrine # Hypothyroidism: TSH 42.29, low T4 # Type 2 diabetes mellitus: HbA1c 8.2%.- # Episodes of hypoglycemia. # Hypothyroidism - continuously monitoring blood glucose and on ISS - Started on Levothyroxine 50 daily Metabolic Hypokalemia. Hyperkalemia. Hyponatremia: D5W at 75 mL/hr per nephrology. Hypophosphatemia: given IV phosphate Nutrition: Severe protein malnutrition. Hematology # Acute on chronic anemia (hemodilution/post-surgical). # Severe thrombocytopenia, HIT # Acute DVT of right upper extremity. - Ultrasound (01/17): Partial thrombus in right internal jugular and cephalic veins. - hemoglobin today 6.9, transfused 1 more unit of PRBC 02/28 - Transfused total 8 units PRBC, 2 platelet units. - continuously monitor H&H - hold blood thinners Musculoskeletal / Skin # Rib fracture due to fall. Nutrition: TPN initiated. Bowel Regimen: As needed. GI Prophylaxis: Pantoprazole bid DVT Prophylaxis: Lovenox (held/ Dc'd due to low hemoglobin). Lines / Tubes / Devices Airway: Intubated on 01/14, extubated on 02/07, reintubated on 02/25 extubated 02/28 Vascular Access: PICC line placed in right upper thigh on 01/26. Drips: Dc'd pressors and sedatives. Urinary: Perez catheter placed on 01/14, exchanged on 02/14. Exchanged on 03/17. CARMEN drains in 1 quadrant. NG tube removed,(03/15) Goals of care addressed with patient's family members for more than 29 minutes: Full code status Care plan updated to the patient family Chris (son) on bedside and addressed all concerns Critical care time spent more than 81 minutes excluding procedures and including discussion with the family Case discussed with Dr. Galeana and nanotechnology technician/Plan 01/19/25 s/p Exploratory laparotomy, lysis of adhesions, extensive lavage, resection of perforated small bowel, enteroenterostomy. unchanged from yesterday abdomen soft, non distended, CARMEN drainage clear serous, no bowel activity, febrile, urine output ok, continues with thrombocytopenia, Plan: continue current treatment discussed with Dr. Christy 01/21/2025 s/p Exploratory laparotomy, lysis of adhesions, extensive lavage, resection of perforated small bowel, enteroenterostomy. abdomen soft, non distended, CARMEN drainage clear serous, no bowel activity, urine output ok, platelet count improved albumin low off pressors blood culture , gram negative rods Plan: continue meropenem antibiotics albumin x3 discussed with Dr. Christy 01/22/2025 s/p Exploratory laparotomy, lysis of adhesions, extensive lavage, resection of perforated small bowel, enteroenterostomy. abdomen soft, non distended, CARMEN drainage clear serous, no bowel activity, urine output ok, platelet count improved blood culture , gram positive rods labs reviewed Plan: continue with current treatment discussed with Dr. Christy 01/24/2025 s/p Exploratory laparotomy, lysis of adhesions, extensive lavage, resection of perforated small bowel, enteroenterostomy. abdomen soft, non distended, CARMEN drainage clear serous, no bowel activity, urine output ok, platelet count improved labs reviewed Plan: small bowel series discussed with Dr. Christy 01/31/2025 s/p Exploratory laparotomy, lysis of adhesions, extensive lavage, resection of perforated small bowel, enteroenterostomy. abdomen soft, non distended, CARMEN drainage brownish, urine output ok labs reviewed Plan: small bowel series on Friday discussed with Dr. Christy 02/06/2025 Surgery: Exploratory laparotomy, lysis of adhesions, evacuation of pelvic and abdominal infection, resection of proximal jejunum, ileostomy, and jejunostomy. Post-Op Day: 2 Notes and labs were reviewed. Hemoglobin was 6.6 this morning, and a blood transfusion is currently being administered. Physical Exam: - Currently intubated and receiving fentanyl without other sedation. - Abdomen is soft and nondistended. - Minimal serosanguineous fluid is noted in the CARMEN drains. - The wound VAC has minimal sanguineous output. The wound is clean. Plan: - Continue current treatment. - Discussed case with Dr. Christy no changes to the plan of care at this time. 02/26/25 labs reviewed patient intubated , sedated abdomen soft, non distended wound vac stoma ok drain serous fluid Plan: continue current treatment 02/28/25 - Patient is intubated and responds to stimuli. no changes from yesterday : Abdomen is soft and non-distended. Stoma is pink. The wound is clean, dry, and intact with a wound vac in place. CARMEN drains have serous fluid output. - Investigations with results: Hemoglobin is low. Plan: - Treatment planned: Receiving one unit of packed red blood cells. CPAP today. Continue current treatment plan 03/10/2025 patient states feeling well : Abdomen is soft and non-distended. fecal matter in stoma bag . The wound is clean, dry, and intact with a wound vac in place. CARMEN drains have brown fluid. -WBC normal Plan: continue current treatment 03/11/25 patient states feeling well : Abdomen is soft and non-distended. fecal matter in stoma bag . The wound is clean, dry, and intact with a wound vac in place. CARMEN drain brown fluid. output over night 60cc -WBC normal Plan: continue current treatment 03/14/2025 patient states feeling well : Abdomen is soft and non-distended. fecal matter in stoma bag CARMEN drain out put decreased brown fluid. labs notes reviewed, discussed with Dr. Christy Plan: clamp NG tube NPO continue TPN 03/17/25 - Abdomen is soft, non-distended, and non-tender. - Surgical wound is clean, dry, and intact. - Mendel-Steele (CARMEN) drain output was 80 mL of brown fluid overnight. The output this morning was 10 mL. Assessment: - Plan: - To remain (NPO) and continue on total parenteral nutrition (TPN). - Cleared for transfer to a half-way facility per Dr. Christy. Please notify Dr. Christy of location patient will be transferred to. - Dr. Christy will make a house call in two weeks. Prognosis: Good, Poor Plan discussed with Dr. 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
[2025-03-17] MEDS: IRON SUCROSE COMPLEX 110 ML IV SCH (11:40)
[2025-03-17] MEDS: MORPHINE SULFATE INJ 2 MG/ml SYRG IV PRN (15:08)
[2025-03-17] MEDS: MICAFUNGIN SODIUM 100 MG in SODIUM CHL 0.9% 100 ML IV ONE (15:16)
--- NOTE | 2025-03-17 17:05 | DVHPNRES ---
Progress Note Date Seen: Mar 17, 2025 Resident Creating Document: ASHLEY TREJO RESIDENT Has the PT tested + for MRSA If YES, has PT been informed?: No Medical Necessity Reason Pt with a Central, PICC or Fol: Yes The following are medically ne: PICC Line, Leach Catheter Reason for leach catheter: Strict I&O Subjective Review of Systems This is a 80-year-old lady with past medical history of hypertension, AFib (on Eliquis), diabetes type 2, CKD, came to the hospital due to abdominal pain, and constipation. Admitted on 01/13/2025. Found to have peritonitis due to bowel perforation, and underwent emergent laparotomy with subsequent resection of perforated small bowel and enteroenterostomy. Due to abnormal CARMEN drainage, second exploratory laparotomy performed on 02/04 and found to have perforation near to previous perforation area, underwent resection of area with subsequent anastomosis of proximal jejunal loops. 02/09/2025: Patient seen in the ICU. Continued to be NPO. On 2 L oxygen via nasal cannula. Wound VAC is mild functional, yellowish drainage from incision site, CARMEN drain is functional, draining greenish bile. No signs of fever. No any other night complaints. 02/10/2025: Patient seen and ICU. Patient is to be continued on NPO. Is on room air, wound care to be done, wet-to-dry. Surgery following, low intermittent suction of NG tube, 130 mL of greenish fluid from CARMEN drain, 50 mL from NG tube noted. 02/11/2025: Patient seen in ICU. Patient is to be continued on NPO, is on room air, wound care is wet-to-dry, patient is getting TPN, had 145 removal of greenish drainage from CARMEN drain. Patient has nonblanching redness on sacrum. Today she came complains of 8/10 pain in the abdomen and back. NG tube was clamped. Following surgery. 02/12/25: patient seen in the ICU. She is still NPO. on room air, wound cares were too dry, NG tube removed. Still greenish drainage from CARMEN drain, blackish stool in the colostomy bag. She still complains of pain in the abdomen, back. PT is able to get her to wheelchair. surgery following. 02/13/2025: Patient seen in the ICU. She is still NPO, on TPN, on room air wound care is wet to dry NG tube was removed yesterday. There is blackish stool, blood seen in the colostomy bag today. She still complains of abdominal pain, there was greenish drainage in the wound. Foleys changed, aspirate culture ordered, 02/14/25: Patient seen in the ICU. Patient is still NPO, on TPN, on room air, wound VAC needs component. 80 mL from CARMEN drain. Second opinion by Dr. Rivera to be given. Micafungin added, morphine sulfate changed to 2 mg IV q.4 PRN. Objective vital signs Vital Sign Date Time Temp Pulse Resp B/P (MAP) Pulse Ox O2 Delivery O2 Flow Rate FiO2 03/17/25 15:38 103 21 106/56 03/17/25 15:30 97 03/17/25 11:30 99.6 99.6 03/17/25 08:00 Room Air* 0 21 Total Intake and Output 03/16/25 03/16/25 03/17/25 15:00 23:00 07:00 Intake Total 936 ml 2420 ml 976 ml Output Total 1225 ml 980 ml Balance 936 ml 1195 ml -4 ml medications Current Medications Medications Dose Ordered Sig/Isaura Route Start Time Stop Time Status Last Admin Dose Admin Cefazolin Sodium 50 ml @ 100 mls/hr Q8HR IV 01/13/25 14:00 UNV Vasopressin 20 units/Sodium Chloride 100 ml @ 9 mls/hr Q11H7M IV 01/13/25 18:45 UNV Potassium Chloride 100 ml @ 50 mls/hr Q2H IV 01/16/25 12:45 01/16/25 18:44 UNV Vancomycin HCl 100 ml @ 100 mls/hr DAILY@1200 IV 01/20/25 12:00 UNV Amino Acids 0 ml @ 0 mls/hr PER PHARMACY IV 02/13/25 10:45 Ondansetron HCl 4 mg Q4HPRN PRN IV 02/21/25 09:30 03/12/25 17:08 4 MG Multi-Ingredient Ointment 1 applic DAILY TOP 02/23/25 10:00 03/16/25 10:02 1 APPLIC Norepinephrine Bitartrate 250 ml @ 3.75 mls/hr Q24H IV 02/25/25 11:45 02/26/25 11:51 7.5 MLS/HR Diagnostic Test (Pha) 1 strip Q4HR 02/26/25 16:00 Cancel Dextrose 50 ml UD PRN IV 02/26/25 14:15 Diagnostic Test (Pha) 1 strip IQ4HR 02/26/25 16:00 UNV Dextrose 50 ml UD PRN IV 02/26/25 16:00 UNV Insulin Human Regular Q6HR SC 03/02/25 12:00 03/17/25 11:47 6 UNITS Pantoprazole Sodium 40 mg BID IV 03/08/25 22:00 03/17/25 07:57 40 MG Levothyroxine Sodium 50 mcg DAILY IV 03/09/25 10:00 03/17/25 07:57 50 MCG Piperacillin Sod/ Tazobactam Sod 100 ml @ 25 mls/hr Q8HR IV 03/11/25 14:00 03/17/25 12:12 25 MLS/HR Lidocaine 1 patch DAILY TOP 03/12/25 10:00 03/17/25 07:58 1 PATCH Potassium Chloride/Dextrose/ Sod Cl 1,000 ml @ 50 mls/hr Q20H IV 03/13/25 14:00 03/17/25 15:08 50 MLS/HR Fat Emulsion Intravenous 150 ml/Sodium Acetate 70 meq/Potassium Acetate 40 meq/ Potassium Phosphate 22 meq/ Magnesium Sulfate 14 meq/ Multivitamins 10 ml/Insulin Human Regular 8 units/ Amino Acids/ Dextrose/Purified Water 1,723.58 ml @ 72 mls/hr [id number] IV 03/16/25 22:00 03/17/25 21:59 03/16/25 21:21 72 MLS/HR Iron Sucrose 110 ml @ 110 mls/hr DAILY@1200 IV 03/17/25 12:00 03/21/25 12:59 03/17/25 11:40 110 MLS/HR Fat Emulsion Intravenous 150 ml/Sodium Acetate 60 meq/Potassium Acetate 40 meq/ Potassium Phosphate 44 meq/ Magnesium Sulfate 14 meq/ Multivitamins 10 ml/Insulin Human Regular 11 units/ Amino Acids/ Dextrose/Purified Water 1,723.61 ml @ 72 mls/hr [id number] IV 03/17/25 22:00 03/18/25 21:59 Morphine Sulfate 2 mg Q4HP PRN IV 03/17/25 12:30 03/17/25 15:08 2 MG Micafungin Sodium 100 mg/Sodium Chloride 100 ml @ 100 mls/hr DAILY IV 03/18/25 10:00 Examination Pt is lying on bed General Appearance: Alert and Oriented x2 HEENT: Atraumatic, Mucous membranes moist/pink Respiratory: Clear to auscultation, Normal air movement, No added sounds Cardiovascular: Regular rate, Normal S1, Normal S2, No murmurs Abdominal: Active bowel sounds, Soft, no distention, no tenderness, colostomy bag in place and 1 CARMEN drain with greenish fluid Extremities: There is bilateral upper extremity edema, with seeping fluid Skin: No Significant rash, except past surgical scars Neuro: more alert and oriented Nurse was there as car body mechanic during examination laboratory and microbiology Laboratory Tests 03/17/25 04:54 Test 03/17/25 04:54 Range/Units Serum Glucose 207 H 74-106 mg/dL Microbiology Date/Time Source Procedure Growth Status 03/16/25 18:00 Aspirate Gram Stain - Final Resulted 03/16/25 18:00 Aspirate Body Fluid Culture - Preliminary Resulted 03/16/25 15:48 Urine - [place] Urine Culture - Preliminary No growth Resulted 03/07/25 08:32 Blood Blood Culture - Final Staphylococcus epidermidis Complete 02/25/25 11:48 Sputum Gram Stain - Final Complete 02/25/25 11:48 Sputum Respiratory Culture - Final Complete 01/13/25 17:10 Nose MRSA Screen - Final Complete Problem List/Assessment/Plan Problem List/Assessment/Plan Neurology # Chronic ischemic changes # Chronic Cortical atrophy - Head CT (01/29): Chronic microangiopathy and cortical atrophy. - reintubated on 02/25/25 during surgery # Extubated on 02/28 Cardiovascular # Septic shock secondary to hollow viscus perforation. # Paroxysmal atrial fibrillation with a second-degree hypercoagulable state currently NSR # Chronic diastolic heart failure with preserved EF 65% # Hypertension. - Echocardiogram (01/15): Normal LV EF (65%), mild LVH, mild LV diastolic dysfunction. - Chest X-ray: Bibasilar atelectasis. - ZEFERINO?DS?-VASc score >5 - cardiology on board - initially on Lovenox therapeutic but Dc'd due to low hemoglobin - Labetalol PRN Pulmonary # Acute hypoxic respiratory failure secondary to bilateral pleural effusion/pneumonia s/p re-intubation, status post extubation 02/28 - monitor with daily CXR - Sputum culture 01/29 Presumptive Zoe albicans and : negative - Reintubated on 02/25. - Chest Physiotherapy ongoing. - extubated today Gastrointestinal / Liver # Acute Bacterial Peritonitis due to small bowel perforation vs Perisplenic abscess. s/p multiple laparotomies # Transaminitis secondary to shock. # Anion gap metabolic acidosis due to bowel ischemia and lactic acidosis - CT abdomen/pelvis (02/16): Pneumoperitoneum, extraluminal contrast, perisplenic/subdiaphragmatic collection (7.1 1.1 cm). - Small bowel series (02/11): Normal. 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 Procedures: - First laparotomy (01/13): Resection of perforated small bowel, enteroenterostomy. - Second laparotomy (02/04): Resection near previous perforation, jejunal anastomosis. - Third laparotomy (02/25): Resection of distal ileum, end-to-end anastomosis, ileostomy. Cultures: - Peritoneal fluid (01/13): E. coli, Klebsiella pneumoniae (sensitive to meropenem). - Peritoneal fluid (02/17): E. coli, Stenotrophomonas maltophilia. - Aspirate Showed(03/02): VRE - IR-guided pigtail drain placed; drained 50 cc purulent fluid. - CARMEN drains placed in 4 quadrants initially and now patient has only 1 CARMEN drain - Initially NPO, TPN initiated. - NG tube placed. - IV antimicrobials Daptomycin meropenem and micafungin - Initially patient is on Levofloxacin, Flagyl (02/03); Vancomycin and Meropenem (); Meropenem (); Vancomycin () then eventually switched to above antimicrobials - Started Daptomycin (03/08), Bactrim stopped (03/08) - added micafungin - (03/17) - 2nd opinion to be given by Dr. Rivera -Gastrografin scan(03/05) showed Contrast extravasation is seen in the proximal small bowel, possibly left sided jejunum near the surgical drain can be seen with a leak. -patient kept NPO - NG tube removed (03/15) Genitourinary / Kidney # ISRRAEL likely secondary to shock/volume depletion- resolved - Nephrology consulted for ISRRAEL. Endocrine # Hypothyroidism: TSH 42.29, low T4 # Type 2 diabetes mellitus: HbA1c 8.2%.- # Episodes of hypoglycemia. # Hypothyroidism - continuously monitoring blood glucose and on ISS - Started on Levothyroxine 50 daily Metabolic Hypokalemia. Hyperkalemia. Hyponatremia: D5W at 75 mL/hr per nephrology. Hypophosphatemia: given IV phosphate Nutrition: Severe protein malnutrition. Hematology # Acute on chronic anemia (hemodilution/post-surgical). # Severe thrombocytopenia, HIT # Acute DVT of right upper extremity. - Ultrasound (01/17): Partial thrombus in right internal jugular and cephalic veins. - hemoglobin today 6.9, transfused 1 more unit of PRBC 02/28 - Transfused total 8 units PRBC, 2 platelet units. - continuously monitor H&H - hold blood thinners Musculoskeletal / Skin # Rib fracture due to fall. Nutrition: TPN initiated. Bowel Regimen: As needed. GI Prophylaxis: Pantoprazole bid DVT Prophylaxis: Lovenox (held/ Dc'd due to low hemoglobin). Lines / Tubes / Devices Airway: Intubated on 01/14, extubated on 02/07, reintubated on 02/25 extubated 02/28 Vascular Access: PICC line placed in right upper thigh on 01/26. Drips: Dc'd pressors and sedatives. Urinary: Leach catheter placed on 01/14, exchanged on 02/14. Exchanged on 03/17. CARMEN drains in 1 quadrant. NG tube removed,(03/15) Goals of care addressed with patient's family members for more than 29 minutes: Full code status Care plan updated to the patient family Chris (son) on bedside and addressed all concerns. discussed at length with dr Henry Rivera regards giving second surgical opinion. Dr Christy made aware of family request Critical care time spent more than 81 minutes excluding procedures and including discussion with the family and consultants Case discussed with Dr. Galeana and RN Plan discussed with: Son My Orders My Orders Orders - ASHLEY TREJO RESIDENT Procedure Category Date Status Time * Wheel Grinder CONS 03/16/25 Transmitted Consult Dietary Evaluation Review Comments: Nutrition Recommendation: 1) TPN to meet at least 75% estimated needs within 7 days 2) Monitor NPO status, lab values, wt trend, I/O Expected Outcomes/Goals: To meet >75% estimated needs Lab values to improve Fu 2-3 days Is there a minimum of two crit: Yes CC Plasma Assessment Blood Product Administration S: [id number] Date of Service: Mar 17, 2025 Billing Provider: ZBIGNIEW SELF MD Common Visit Codes: 99140-[id number] CARE 30-74 MIN, 30133-[id number] CARE-EACH +30MIN ASHLEY TREJO RESIDENT Mar 17, 2025 17:05 ZBIGNIEW SELF MD Mar 20, 2025 16:25
[2025-03-17] MEDS: TPN PER PHARMACY IV NR (21:43)
[2025-03-18] VITALS (25 sets, daily range): BP systolic 97–132; BP diastolic 48–73; PULSE 99–116; RESP 12–29; TEMP 98.2–100.3; O2SAT 95–100
[2025-03-18 05:55] LABS: Hemoglobin 8.3 g/dL (12.2-16.2)
[2025-03-18 05:58] LABS: Hematocrit 23.8 % (36.0-46.0); Mean Corpuscular Hemoglobin 35.0 pg (28.0-32.0); Mean Corpuscular Volume 100.5 fL (80.0-100.0); Nucleated Red Blood Cells % 0.1 %
[2025-03-18 06:13] LABS: Alanine Aminotransferase 36 U/L (7-40); Anion Gap 8 (5-15); BUN/Creatinine Ratio 33.0 (10.0-20.0); Calcium 8.8 mg/dL (8.7-10.4); Carbon Dioxide 25 mmol/L (20-31); Chloride 106 mmol/L (98-107); Magnesium 2.1 mg/dL (1.6-2.6); Potassium 4.2 mmol/L (3.5-5.1); Sodium 139 mmol/L (136-145)
[2025-03-18 06:26] LABS: Albumin 2.2 g/dL (3.2-4.8); Alkaline Phosphatase 153 U/L (46-116); Bilirubin, Total 2.8 mg/dL (0.2-1.0); Blood Urea Nitrogen 33 mg/dL (9-23); Glucose 157 mg/dL (74-106); Total Protein 5.5 g/dL (5.7-8.2); Triglycerides 154 mg/dL (< 150)
[2025-03-18] MEDS: MICAFUNGIN SODIUM 100 MG in SODIUM CHL 0.9% 100 ML IV SCH (07:49)
--- NOTE | 2025-03-18 13:08 | DVHPNRES ---
Progress Note Date Seen: Mar 18, 2025 Resident Creating Document: ASHLEY TREJO RESIDENT Has the PT tested + for MRSA If YES, has PT been informed?: No Medical Necessity Reason Pt with a Central, PICC or Fol: Yes The following are medically ne: PICC Line, Leach Catheter Reason for leach catheter: Strict I&O Subjective Review of Systems This is a 80-year-old lady with past medical history of hypertension, AFib (on Eliquis), diabetes type 2, CKD, came to the hospital due to abdominal pain, and constipation. Admitted on 01/13/2025. Found to have peritonitis due to bowel perforation, and underwent emergent laparotomy with subsequent resection of perforated small bowel and enteroenterostomy. Due to abnormal CARMEN drainage, second exploratory laparotomy performed on 02/04 and found to have perforation near to previous perforation area, underwent resection of area with subsequent anastomosis of proximal jejunal loops. 02/09/2025: Patient seen in the ICU. Continued to be NPO. On 2 L oxygen via nasal cannula. Wound VAC is mild functional, yellowish drainage from incision site, CARMEN drain is functional, draining greenish bile. No signs of fever. No any other night complaints. 02/10/2025: Patient seen and ICU. Patient is to be continued on NPO. Is on room air, wound care to be done, wet-to-dry. Surgery following, low intermittent suction of NG tube, 130 mL of greenish fluid from CARMEN drain, 50 mL from NG tube noted. 02/11/2025: Patient seen in ICU. Patient is to be continued on NPO, is on room air, wound care is wet-to-dry, patient is getting TPN, had 145 removal of greenish drainage from CARMEN drain. Patient has nonblanching redness on sacrum. Today she came complains of 8/10 pain in the abdomen and back. NG tube was clamped. Following surgery. 02/12/25: patient seen in the ICU. She is still NPO. on room air, wound cares were too dry, NG tube removed. Still greenish drainage from CARMEN drain, blackish stool in the colostomy bag. She still complains of pain in the abdomen, back. PT is able to get her to wheelchair. surgery following. 02/13/2025: Patient seen in the ICU. She is still NPO, on TPN, on room air wound care is wet to dry NG tube was removed yesterday. There is blackish stool, blood seen in the colostomy bag today. She still complains of abdominal pain, there was greenish drainage in the wound. Foleys changed, aspirate culture ordered, 02/14/25: Patient seen in the ICU. Patient is still NPO, on TPN, on room air, wound VAC needs component. 80 mL from CARMEN drain. Second opinion by Dr. Rivera to be given. Micafungin added, morphine sulfate changed to 2 mg IV q.4 PRN. 02/15/25: Patient seen in ICU. Patient is still NPO, on TPN, on room air, CARMEN drain in place. Second opinion to be given by Dr. Rivera. Objective vital signs Vital Sign Date Time Temp Pulse Resp B/P (MAP) Pulse Ox O2 Delivery O2 Flow Rate FiO2 03/18/25 12:00 98.9 109 23 123/51 (75) 98 98.9 03/18/25 08:00 Room Air* 0 21 Total Intake and Output 03/17/25 03/17/25 03/18/25 15:00 23:00 07:00 Intake Total 1086 ml 1001 ml 976 ml Output Total 975 ml 800 ml Balance 1086 ml 26 ml 176 ml medications Current Medications Medications Dose Ordered Sig/Isaura Route Start Time Stop Time Status Last Admin Dose Admin Cefazolin Sodium 50 ml @ 100 mls/hr Q8HR IV 01/13/25 14:00 UNV Vasopressin 20 units/Sodium Chloride 100 ml @ 9 mls/hr Q11H7M IV 01/13/25 18:45 UNV Potassium Chloride 100 ml @ 50 mls/hr Q2H IV 01/16/25 12:45 01/16/25 18:44 UNV Vancomycin HCl 100 ml @ 100 mls/hr DAILY@1200 IV 01/20/25 12:00 UNV Amino Acids 0 ml @ 0 mls/hr PER PHARMACY IV 02/13/25 10:45 Ondansetron HCl 4 mg Q4HPRN PRN IV 02/21/25 09:30 03/12/25 17:08 4 MG Multi-Ingredient Ointment 1 applic DAILY TOP 02/23/25 10:00 03/18/25 07:49 1 APPLIC Norepinephrine Bitartrate 250 ml @ 3.75 mls/hr Q24H IV 02/25/25 11:45 02/26/25 11:51 7.5 MLS/HR Diagnostic Test (Pha) 1 strip Q4HR 02/26/25 16:00 Cancel Dextrose 50 ml UD PRN IV 02/26/25 14:15 Diagnostic Test (Pha) 1 strip IQ4HR 02/26/25 16:00 UNV Dextrose 50 ml UD PRN IV 02/26/25 16:00 UNV Insulin Human Regular Q6HR SC 03/02/25 12:00 03/18/25 11:45 3 UNITS Pantoprazole Sodium 40 mg BID IV 03/08/25 22:00 03/18/25 07:49 40 MG Levothyroxine Sodium 50 mcg DAILY IV 03/09/25 10:00 03/18/25 07:49 50 MCG Piperacillin Sod/ Tazobactam Sod 100 ml @ 25 mls/hr Q8HR IV 03/11/25 14:00 03/18/25 12:28 25 MLS/HR Lidocaine 1 patch DAILY TOP 03/12/25 10:00 03/18/25 07:50 1 PATCH Potassium Chloride/Dextrose/ Sod Cl 1,000 ml @ 50 mls/hr Q20H IV 03/13/25 14:00 03/18/25 12:28 50 MLS/HR Iron Sucrose 110 ml @ 110 mls/hr DAILY@1200 IV 03/17/25 12:00 03/21/25 12:59 03/18/25 11:59 110 MLS/HR Fat Emulsion Intravenous 150 ml/Sodium Acetate 60 meq/Potassium Acetate 40 meq/ Potassium Phosphate 44 meq/ Magnesium Sulfate 14 meq/ Multivitamins 10 ml/Insulin Human Regular 11 units/ Amino Acids/ Dextrose/Purified Water 1,723.61 ml @ 72 mls/hr [id number] IV 03/17/25 22:00 03/18/25 21:59 03/17/25 21:43 72 MLS/HR Morphine Sulfate 2 mg Q4HP PRN IV 03/17/25 12:30 03/18/25 09:43 2 MG Micafungin Sodium 100 mg/Sodium Chloride 100 ml @ 100 mls/hr DAILY IV 03/18/25 10:00 03/18/25 07:49 100 MLS/HR Acetaminophen 650 mg Q6HP PRN MD 03/18/25 10:00 Fat Emulsion Intravenous 150 ml/Sodium Acetate 50 meq/Potassium Acetate 40 meq/ Potassium Phosphate 22 meq/ Magnesium Sulfate 12 meq/ Multivitamins 10 ml/Insulin Human Regular 11 units/ Amino Acids/ Dextrose/Purified Water 1,713.11 ml @ 71 mls/hr Q24H8M IV 03/18/25 22:00 03/19/25 21:59 Examination Pt is lying on bed General Appearance: Alert and Oriented x2 HEENT: Atraumatic, Mucous membranes moist/pink Respiratory: Clear to auscultation, Normal air movement, No added sounds Cardiovascular: Regular rate, Normal S1, Normal S2, No murmurs Abdominal: Active bowel sounds, Soft, no distention, no tenderness, colostomy bag in place and 1 CARMEN drain with greenish fluid Extremities: There is bilateral upper extremity edema, with seeping fluid Skin: No Significant rash, except past surgical scars Neuro: more alert and oriented Nurse was there as electrical products engineer during examination laboratory and microbiology Laboratory Tests 03/18/25 05:05 Test 03/18/25 05:05 Range/Units Serum Glucose 157 H 74-106 mg/dL Microbiology Date/Time Source Procedure Growth Status 03/16/25 18:00 Aspirate Gram Stain - Final Resulted 03/16/25 18:00 Body Fluid Culture - Preliminary Escherichia coli Resulted 03/16/25 15:48 Urine - [place] Urine Culture - Preliminary Resulted 03/07/25 08:32 Blood Blood Culture - Final Staphylococcus epidermidis Complete 02/25/25 11:48 Sputum Gram Stain - Final Complete 02/25/25 11:48 Sputum Respiratory Culture - Final Complete 01/13/25 17:10 Nose MRSA Screen - Final Complete Problem List/Assessment/Plan Problem List/Assessment/Plan Neurology # Chronic ischemic changes # Chronic Cortical atrophy - Head CT (01/29): Chronic microangiopathy and cortical atrophy. - reintubated on 02/25/25 during surgery # Extubated on 02/28 Cardiovascular # Septic shock secondary to hollow viscus perforation. # Paroxysmal atrial fibrillation with a second-degree hypercoagulable state currently NSR # Chronic diastolic heart failure with preserved EF 65% # Hypertension. - Echocardiogram (01/15): Normal LV EF (65%), mild LVH, mild LV diastolic dysfunction. - Chest X-ray: Bibasilar atelectasis. - ZEFERINO?DS?-VASc score >5 - cardiology on board - initially on Lovenox therapeutic but Dc'd due to low hemoglobin - Labetalol PRN Pulmonary # Acute hypoxic respiratory failure secondary to bilateral pleural effusion/pneumonia s/p re-intubation, status post extubation 02/28 - monitor with daily CXR - Sputum culture 01/29 Presumptive Zoe albicans and : negative - Reintubated on 02/25. - Chest Physiotherapy ongoing. - extubated today Gastrointestinal / Liver # Acute Bacterial Peritonitis due to small bowel perforation vs Perisplenic abscess. s/p multiple laparotomies # Transaminitis secondary to shock. # Anion gap metabolic acidosis due to bowel ischemia and lactic acidosis - CT abdomen/pelvis (02/16): Pneumoperitoneum, extraluminal contrast, perisplenic/subdiaphragmatic collection (7.1 1.1 cm). - Small bowel series (02/11): Normal. 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 Procedures: - First laparotomy (01/13): Resection of perforated small bowel, enteroenterostomy. - Second laparotomy (02/04): Resection near previous perforation, jejunal anastomosis. - Third laparotomy (02/25): Resection of distal ileum, end-to-end anastomosis, ileostomy. Cultures: - Peritoneal fluid (01/13): E. coli, Klebsiella pneumoniae (sensitive to meropenem). - Peritoneal fluid (02/17): E. coli, Stenotrophomonas maltophilia. - Aspirate Showed(03/02): VRE - IR-guided pigtail drain placed; drained 50 cc purulent fluid. - CARMEN drains placed in 4 quadrants initially and now patient has only 1 CARMEN drain - Initially NPO, TPN initiated. - NG tube placed. - IV antimicrobials Daptomycin meropenem and micafungin - Initially patient is on Levofloxacin, Flagyl (02/03); Vancomycin and Meropenem (); Meropenem (); Vancomycin () then eventually switched to above antimicrobials - Started Daptomycin (03/08), Bactrim stopped (03/08) - added micafungin - (03/17) - 2nd opinion to be given by Dr. Rivera -Gastrografin scan(03/05) showed Contrast extravasation is seen in the proximal small bowel, possibly left sided jejunum near the surgical drain can be seen with a leak. -patient kept NPO - NG tube removed (03/15) Genitourinary / Kidney # ISRRAEL likely secondary to shock/volume depletion- resolved - Nephrology consulted for ISRRAEL. Endocrine # Hypothyroidism: TSH 42.29, low T4 # Type 2 diabetes mellitus: HbA1c 8.2%.- # Episodes of hypoglycemia. # Hypothyroidism - continuously monitoring blood glucose and on ISS - Started on Levothyroxine 50 daily Metabolic Hypokalemia. Hyperkalemia. Hyponatremia: D5W at 75 mL/hr per nephrology. Hypophosphatemia: given IV phosphate Nutrition: Severe protein malnutrition. Hematology # Acute on chronic anemia (hemodilution/post-surgical). # Severe thrombocytopenia, HIT # Acute DVT of right upper extremity. - Ultrasound (01/17): Partial thrombus in right internal jugular and cephalic veins. - hemoglobin today 6.9, transfused 1 more unit of PRBC 02/28 - Transfused total 8 units PRBC, 2 platelet units. - continuously monitor H&H - hold blood thinners Musculoskeletal / Skin # Rib fracture due to fall. Nutrition: TPN initiated. Bowel Regimen: As needed. GI Prophylaxis: Pantoprazole bid DVT Prophylaxis: Lovenox (held/ Dc'd due to low hemoglobin). Lines / Tubes / Devices Airway: Intubated on 01/14, extubated on 02/07, reintubated on 02/25 extubated 02/28 Vascular Access: PICC line placed in right upper thigh on 01/26. Drips: Dc'd pressors and sedatives. Urinary: Leach catheter placed on 01/14, exchanged on 02/14. Exchanged on 03/17. CARMEN drains in 1 quadrant. NG tube removed,(03/15) Goals of care addressed with patient's family members for more than 29 minutes: Full code status Care plan updated to the patient family Chris (son) on bedside and addressed all concerns Critical care time spent more than 81 minutes excluding procedures and including discussion with the family Case discussed with Dr. Carvalho and RN Plan discussed with: Son My Orders My Orders Orders - ASHLEY TREJO RESIDENT Procedure Category Date Status Time Acetaminophen PHA 03/18/25 In Process Suppository (Tylenol 10:00 Dietary Evaluation Review Comments: Nutrition Recommendation: 1) TPN to meet at least 75% estimated needs within 7 days 2) Monitor NPO status, lab values, wt trend, I/O Expected Outcomes/Goals: To meet >75% estimated needs Lab values to improve Fu 2-3 days Is there a minimum of two crit: Yes CC Plasma Assessment Blood Product Administration S: [id number] ASHLEY TREJO RESIDENT Mar 18, 2025 13:08
[2025-03-18] MEDS: MEROPENEM 1GM IVPB 50 ML IV SCH ×2 (15:00→21:59)
[2025-03-18] MEDS: HYDROmorphone HCL 2 MG/ML VL/or syr IV PRN (20:07)
[2025-03-18] MEDS: TPN PER PHARMACY IV NR (21:54)
[2025-03-18] MEDS: MORPHINE SULFATE 4 MG/ML SYR/VIAL IV PRN (22:26)
--- NOTE | 2025-03-18 23:42 | DVHPN2 ---
Subjective DOS: 03/18/2025 Patient seen and examined at bedside. Breathing comfortably on room air. Overnight events reviewed. HPI: A 80-year-old woman with past medical history of diabetes mellitus who presented to the ED on 01/13/25 with c/o abdominal pain x4 days. Patient reported 8 - 9/10 pain that was sharp and constant, throughout her abdomen. She did note pain medications make it better. Patient admitted to being noncompliant with her Eliquis for the past 2 weeks. Patient denied any fever, chills, chest pain, shortness of breath, or other acute complaints. She reported falling on her left side on January 06, 2025. Patient does not use home oxygen. Patient was admitted for further care, subsequently found to have perforated bowel and underwent exploratory laparotomy with repair of bowel perforation. Pulmonary consultation was requested for evaluation and management due to acute hypoxic respiratory failure requiring mechanical ventilator. Past Medical History: Diabetes mellitus Past Surgical History: , Hernia Repair Medications: Reviewed. Allergies: No known drug allergies. Family History: Arthritis. No family history of premature CAD. No family history of lung disorders. Social History: Nonsmoker. No alcohol or illicit drug use. Reviewed: Care Plan, H&P Changes from previous H/P or p: No Changes Gastrointestinal: Abdominal Pain Objective Vitals Vital Signs Date Time Temp Pulse Resp B/P (MAP) Pulse Ox O2 Delivery O2 Flow Rate FiO2 03/18/25 22:56 109 13 115/58 03/18/25 22:00 97 03/18/25 20:00 Room Air* 0 21 03/18/25 20:00 99.8 99.8 Intake/Output Intake and Output 03/18/25 07:00 Intake Total 3063 ml Output Total 1775 ml Balance 1288 ml Intake Oral 0 ml IV Total 3063 ml Output Urine Total 1600 ml Stool Total 0 ml Drainage Total 175 ml General Appearance: Alert, Oriented X3, No acute distress, Other HEENT: Atraumatic, Mucous membr. moist/pink Neck: Supple Lungs: Clear to auscultation, Other (Decreased air entry bilaterally) Cardiovascular: Regular rate, Normal S1, Normal S2, No murmurs, Gallops, Rubs Abdomen: Normal bowel sounds, Soft, No tenderness Extremities: No clubbing, No cyanosis, No edema Neuro: Strength at 5/5 X4 ext, Sensation intact, Cranial nerves 3-12 NL Psych/Mental Status: Mental status NL, Mood NL Medications Current Medications Medications Dose Ordered Sig/Isaura Route Start Time Stop Time Status Last Admin Dose Admin Cefazolin Sodium 50 ml @ 100 mls/hr Q8HR IV 01/13/25 14:00 UNV Vasopressin 20 units/Sodium Chloride 100 ml @ 9 mls/hr Q11H7M IV 01/13/25 18:45 UNV Potassium Chloride 100 ml @ 50 mls/hr Q2H IV 01/16/25 12:45 01/16/25 18:44 UNV Vancomycin HCl 100 ml @ 100 mls/hr DAILY@1200 IV 01/20/25 12:00 UNV Amino Acids 0 ml @ 0 mls/hr PER PHARMACY IV 02/13/25 10:45 Ondansetron HCl 4 mg Q4HPRN PRN IV 02/21/25 09:30 03/12/25 17:08 4 MG Multi-Ingredient Ointment 1 applic DAILY TOP 02/23/25 10:00 03/18/25 07:49 1 APPLIC Norepinephrine Bitartrate 250 ml @ 3.75 mls/hr Q24H IV 02/25/25 11:45 02/26/25 11:51 7.5 MLS/HR Diagnostic Test (Pha) 1 strip Q4HR 02/26/25 16:00 Cancel Dextrose 50 ml UD PRN IV 02/26/25 14:15 Diagnostic Test (Pha) 1 strip IQ4HR 02/26/25 16:00 UNV Dextrose 50 ml UD PRN IV 02/26/25 16:00 UNV Insulin Human Regular Q6HR SC 03/02/25 12:00 03/18/25 23:21 3 UNITS Pantoprazole Sodium 40 mg BID IV 03/08/25 22:00 03/18/25 21:59 40 MG Levothyroxine Sodium 50 mcg DAILY IV 03/09/25 10:00 03/18/25 07:49 50 MCG Lidocaine 1 patch DAILY TOP 03/12/25 10:00 03/18/25 07:50 1 PATCH Potassium Chloride/Dextrose/ Sod Cl 1,000 ml @ 50 mls/hr Q20H IV 03/13/25 14:00 03/18/25 12:28 50 MLS/HR Iron Sucrose 110 ml @ 110 mls/hr DAILY@1200 IV 03/17/25 12:00 03/21/25 12:59 03/18/25 11:59 110 MLS/HR Micafungin Sodium 100 mg/Sodium Chloride 100 ml @ 100 mls/hr DAILY IV 03/18/25 10:00 03/18/25 07:49 100 MLS/HR Acetaminophen 650 mg Q6HP PRN NM 03/18/25 10:00 Fat Emulsion Intravenous 150 ml/Sodium Acetate 50 meq/Potassium Acetate 40 meq/ Potassium Phosphate 22 meq/ Magnesium Sulfate 12 meq/ Multivitamins 10 ml/Insulin Human Regular 11 units/ Amino Acids/ Dextrose/Purified Water 1,713.11 ml @ 71 mls/hr Q24H8M IV 03/18/25 22:00 03/19/25 21:59 03/18/25 21:54 71 MLS/HR Meropenem 50 ml @ 17 mls/hr Q12HR IV 03/18/25 22:00 03/18/25 21:59 17 MLS/HR Hydromorphone HCl 1 mg Q4HPRN PRN IV 03/18/25 18:30 03/18/25 20:07 1 MG Morphine Sulfate 4 mg Q4HPRN PRN IV 03/18/25 18:30 03/18/25 22:26 4 MG Laboratory Results Laboratory Tests 03/18/25 05:05 Chemistry Test 03/18/25 05:05 Albumin 2.2 g/dL (3.2-4.8) L Calcium Level 8.8 mg/dL (8.7-10.4) Magnesium Level 2.1 mg/dL (1.6-2.6) Phosphorus Level 3.1 mg/dL (2.4-5.1) Total Protein 5.5 g/dL (5.7-8.2) L Lipid panel Test 03/18/25 05:05 Triglycerides Level 154 mg/dL (< 150) H LFT Test 03/18/25 05:05 Alanine Aminotransferase (ALT) 36 U/L (7-40) Alkaline Phosphatase 153 U/L (46-116) H Aspartate Amino Transferase (AST) 51 U/L (13-40) H Total Bilirubin 2.8 mg/dL (0.2-1.0) H Urinalysis Test 01/14/25 02:00 03/16/25 15:48 Urine Amorphous Crystals Few /hpf (None Seen) Urine Creatinine 34.09 mg/dL (30.0-125.0) Urine Protein/Creatinine Ratio 3.85 Urine Sodium 76 mmol/L (40-220) Urine Total Protein 131.1 mg/dL (1-14) H Urine Color Yellow (Yellow) Urine Clarity Clear (Clear) Urine pH 6.5 (5.0-9.0) Urine Specific Lynch 1.011 (1.001-1.035) Urine Protein Trace (Negative) H Urine Ketones Negative (Negative) Urine Blood Trace /uL (Negative) H Urine Nitrite Negative (Negative) Urine Bilirubin Negative (Negative) Urine Urobilinogen Normal mg/dL (Negative) Urine Leukocyte Esterase 1+ /uL (Negative) Urine RBC 3 /hpf (0 - 4) Urine Microscopic WBC 11 /HPF (0-5) H Urine Squamous Epithelial Cells Few /hpf (<5) Urine Bacteria None seen /hpf (None Seen) Urine Yeast (Budding) Few /hpf (None Seen) Urine Glucose 3+ mg/dL (Normal) H Microbiology Microbiology Date/Time Source Procedure Growth Status 03/16/25 18:00 Aspirate Gram Stain - Final Resulted 03/16/25 18:00 Body Fluid Culture - Preliminary Escherichia coli Resulted 03/16/25 15:48 Urine - [place] Urine Culture - Preliminary Resulted 03/07/25 08:32 Blood Blood Culture - Final Staphylococcus epidermidis Complete 02/25/25 11:48 Sputum Gram Stain - Final Complete 02/25/25 11:48 Sputum Respiratory Culture - Final Complete 01/13/25 17:10 Nose MRSA Screen - Final Complete Assessment/Plan Assessment/Plan Impression: Acute hypoxic respiratory failure Atelectasis Pleural effusion Acute metabolic encephalopathy secondary to acute hypoxic respiratory failure Pulmonary edema due to chronic heart failure with preserved ejection fraction Perforation of small bowel status post exploratory laparotomy Acute on chronic kidney disease secondary to shock, vasomotor nephropathy Anemia Sepsis with septic shock secondary to perforation of small bowel Events: Remains on room air No distress Patient in distress due to pain. Follow up second opinion for surgery. Pain control Avoid oversedation Dilaudid 1 mg IVP q.4 hours PRN severe pain. Patient to be continued on NPO. Wound care, wet-to-dry. Surgery following, low intermittent suction of NG tube No signs of fever. Continue to monitor drainage from NG tube, CARMEN drain. Follow up Surgery recommendations Continue physical therapy. HOB elevation Aspiration precautions Continue antibiotics/antifungal coverage ID recommendations appreciated. TPN for nutritional support Labs reviewed. Hemoglobin stable at 8.3 g/dL Continue to monitor hemoglobin Transfuse if less than 7.0 g/dL. Pain control Avoid oversedation Wound care. Physical Therapy Gastrografin study, positive for leak. Study demonstrated contrast extravasation is seen in the proximal small bowel, possibly left sided jejunum near the surgical drain can be seen with a leak. Poor wound healing, leakage noted. Patient NPO due to leak. GI recs appreciated. Labs and imaging reviewed. Rest of plan as noted below. Plan: S/p extubation on 03/02/25 Supplemental oxygen PRN Titrate to keep O2 sats above 92%. Continue antibiotics. F/u cultures. Continue antifungal TPN for nutritional support Monitor renal function due to acute kidney injury. Monitor electrolytes. Supplement as necessary. Monitor ins and outs Monitor hemoglobin Transfuse if less than 7.0 g/dL. Follow up GI recommendations Follow up Surgery recommendations Wound care Nutritional support. Accu-Cheks, ISS. GI/DVT prophylaxis. Prognosis: Poor given multiple comorbidities. Rest of plan per hospitalist and other consultants. Thank you for allowing me to participate in this patient's care. Further recommendations will depend on patient's clinical course. Please do not hesitate to contact me if you have any questions or concerns. This medical document was created using an electronic medical record system with [employer] dictation system. Although this document has been carefully reviewed, there may still be some phonetic and typographical errors. These areas are purely typographical due to imperfections of the software programs, and do not reflect any compromise in the patient's medical care. Plan discussed with: Patient, Other (MASHA Swift) My Orders Orders - MORA LANGSTON MD Procedure Category Date Status Time Hydromorphone PHA 03/18/25 In Process Injection (Dilaudid 18:30 Morphine Sulfate PHA 03/18/25 In Process Injection 18:30 Visit Coding Pulmonary Billing Provider: MORA LANGSTON MD Date of Service if different f: Mar 18, 2025 Common Visit Codes: 17240-RTSIPYLXML INP/OBS CARE(HIGH) MORA LANGSTON MD Mar 18, 2025 23:42
[2025-03-19] VITALS (31 sets, daily range): BP systolic 87–134; BP diastolic 39–77; PULSE 97–139; RESP 12–22; TEMP 97.6–99.5; O2SAT 93–99
[2025-03-19 03:25] LABS: Hematocrit 22.3 % (36.0-46.0); Hemoglobin 7.6 g/dL (12.2-16.2); Mean Corpuscular Hemoglobin 34.4 pg (28.0-32.0); Mean Corpuscular Volume 100.9 fL (80.0-100.0); Nucleated Red Blood Cells % 0.1 %
[2025-03-19 03:45] LABS: Alanine Aminotransferase 33 U/L (7-40); Anion Gap 7 (5-15); Calcium 8.7 mg/dL (8.7-10.4); Carbon Dioxide 26 mmol/L (20-31); Chloride 104 mmol/L (98-107); Potassium 4.4 mmol/L (3.5-5.1); Sodium 137 mmol/L (136-145)
[2025-03-19 03:46] LABS: BUN/Creatinine Ratio 44.6 (10.0-20.0); Magnesium 2.1 mg/dL (1.6-2.6)
[2025-03-19 03:58] LABS: Albumin 1.9 g/dL (3.2-4.8); Alkaline Phosphatase 129 U/L (46-116); Bilirubin, Total 2.9 mg/dL (0.2-1.0); Blood Urea Nitrogen 41 mg/dL (9-23); Glucose 152 mg/dL (74-106); Total Protein 4.8 g/dL (5.7-8.2)
--- NOTE | 2025-03-19 07:44 | DVHPN2 ---
Progress Note Date Seen: Mar 19, 2025 Has the PT tested + for MRSA If YES, has PT been informed?: No Medical Necessity Reason Pt with a Central, PICC or Fol: Yes The following are medically ne: PICC Line, Leach Catheter Reason for leach catheter: Strict I&O Objective vital signs Vital Sign Date Time Temp Pulse Resp B/P (MAP) Pulse Ox O2 Delivery O2 Flow Rate FiO2 03/19/25 06:00 105 22 107/53 (71) 97 03/19/25 04:00 99.0 99.0 03/18/25 20:00 Room Air* 0 21 Total Intake and Output 03/18/25 03/18/25 03/19/25 15:00 23:00 07:00 Intake Total 1186 ml 961 ml 897 ml Output Total 955 ml 945 ml Balance 1186 ml 6 ml -48 ml medications Current Medications Medications Dose Ordered Sig/Isaura Route Start Time Stop Time Status Last Admin Dose Admin Cefazolin Sodium 50 ml @ 100 mls/hr Q8HR IV 01/13/25 14:00 UNV Vasopressin 20 units/Sodium Chloride 100 ml @ 9 mls/hr Q11H7M IV 01/13/25 18:45 UNV Potassium Chloride 100 ml @ 50 mls/hr Q2H IV 01/16/25 12:45 01/16/25 18:44 UNV Vancomycin HCl 100 ml @ 100 mls/hr DAILY@1200 IV 01/20/25 12:00 UNV Amino Acids 0 ml @ 0 mls/hr PER PHARMACY IV 02/13/25 10:45 Ondansetron HCl 4 mg Q4HPRN PRN IV 02/21/25 09:30 03/12/25 17:08 4 MG Multi-Ingredient Ointment 1 applic DAILY TOP 02/23/25 10:00 03/18/25 07:49 1 APPLIC Norepinephrine Bitartrate 250 ml @ 3.75 mls/hr Q24H IV 02/25/25 11:45 02/26/25 11:51 7.5 MLS/HR Diagnostic Test (Pha) 1 strip Q4HR 02/26/25 16:00 Cancel Dextrose 50 ml UD PRN IV 02/26/25 14:15 Diagnostic Test (Pha) 1 strip IQ4HR 02/26/25 16:00 UNV Dextrose 50 ml UD PRN IV 02/26/25 16:00 UNV Insulin Human Regular Q6HR SC 03/02/25 12:00 03/18/25 23:21 3 UNITS Pantoprazole Sodium 40 mg BID IV 03/08/25 22:00 03/18/25 21:59 40 MG Levothyroxine Sodium 50 mcg DAILY IV 03/09/25 10:00 03/18/25 07:49 50 MCG Lidocaine 1 patch DAILY TOP 03/12/25 10:00 03/18/25 07:50 1 PATCH Potassium Chloride/Dextrose/ Sod Cl 1,000 ml @ 50 mls/hr Q20H IV 03/13/25 14:00 03/18/25 12:28 50 MLS/HR Iron Sucrose 110 ml @ 110 mls/hr DAILY@1200 IV 03/17/25 12:00 03/21/25 12:59 03/18/25 11:59 110 MLS/HR Micafungin Sodium 100 mg/Sodium Chloride 100 ml @ 100 mls/hr DAILY IV 03/18/25 10:00 03/18/25 07:49 100 MLS/HR Acetaminophen 650 mg Q6HP PRN [place] 03/18/25 10:00 Fat Emulsion Intravenous 150 ml/Sodium Acetate 50 meq/Potassium Acetate 40 meq/ Potassium Phosphate 22 meq/ Magnesium Sulfate 12 meq/ Multivitamins 10 ml/Insulin Human Regular 11 units/ Amino Acids/ Dextrose/Purified Water 1,713.11 ml @ 71 mls/hr Q24H8M IV 03/18/25 22:00 03/19/25 21:59 03/18/25 21:54 71 MLS/HR Meropenem 50 ml @ 17 mls/hr Q12HR IV 03/18/25 22:00 03/18/25 21:59 17 MLS/HR Hydromorphone HCl 1 mg Q4HPRN PRN IV 03/18/25 18:30 03/19/25 02:31 1 MG Morphine Sulfate 4 mg Q4HPRN PRN IV 03/18/25 18:30 03/18/25 22:26 4 MG laboratory and microbiology Laboratory Tests 03/19/25 02:42 Test 03/19/25 02:42 Range/Units Serum Glucose 152 H 74-106 mg/dL Problem List/Assessment/Plan Problem List/Assessment/Plan 01/14/25 afebrile, low dose BP support, received transfusion, I believe her decreased hematocrit is due to hemodilution. abdomen non distended, soft, wound clean and well approximated, drainage serous . remains intubated and sedated 01/16/25 ALKALOSIS, ABDOMEN NON DISTENDED, SOFT, DRAINAGE SEROUS, WOUND CLEAN AND WELL APPROXIMATED 01/17/25 improved, thrombocytopenia possibly made worse by Fluconazole,will DC, abdomen non distended, wound well approximated without infection, TATY drainage serous, CVP 6, good urine output. 01/18/25 abg reviewed, ,abdomen soft, non distended, TATY drainage clear serous, no bowel activity, febrile, urine output ok, continues with thrombocytopenia,pt and inr slightly elevated. prognosis grave. 01/20/25remains sedated on ventilator, abdomen soft, non distended, faint bowel sounds auscultated by nurse, wound clean and well approximated, TATY drainage clear serous. continues with thrombocytopenia, still behind on intravascular volume( BUN and Creatinine elevated), i would give more IV fluids and DC vancomycin. 01/25/25 afebrile, normotensive, wound clean and well approximated, TATY drainage serous, abdomen non distended, soft, gastrografin small bowel series shows non obstructed GI tract and no evidence of extravasation. It is OK to initiate enteric feedings. 01/29/25 16 DAYS POST OPERATIVELY TRHE TATY DRAINAGE WHICH HAD CONSISTENTLY BEEN SEROUS OR SERO SANGUINEOUS HAS BECOME "DIRTY" BROWNISH DISCOLORATION, HER WOUND IS CLEAN AND WELL APPROXIMATED AND HER ABDOMEN IS SOFT AND NON DISTENDED, CT SCAN SHOWS SO0ME FLUID AND ACCUMULATION OF FLUID AROUND THE SPLEEN, WILL REQUEST CT GUIDED ASPIRATION OF SAME, WILL ORDER IRRIGATION OF DRAINS. SHE SI AFEBRILE AND MAINTAINS NORMAL BLOOD PRESSURE, HER WBC IS NORMAL. 01/30/25 improved, awake, being weaned off vent. abdomen non distended, non tender, taty drainage clearing with irrigation 02/02/25clinically unchanged, gastrografin small bowel series reported and normal, no extravasation reported, will order a follow ujp KUB for tomorrow AM 02/03/25 PATIENT HAD A GASTROGRAFIN SMALL BOWEL SERIES AND A FOLLOW UP KUB X RAYS NEITHER ONE OF WHICH SHOW EXTRAVASATION OF CONTRAST OR EVIDENCE OF FREE CONTRAST IN THE PERITONEAL CAVITY. THERE IS HOWEVER VISCOUS, BROWNISH FLUID DRAINING VIA BOTH TATY DRAINS AND THROUGH INFRAUMBILICAL PORTION OF MIDLINE WOUND, I REMOVED THE RICHIE FROM THE 3 CM SECTION OF THE INFRAUMBILICAL WOUND AND EVACUATED ABOUT 30 CC OF THIS FLUID AND INSTRUCTED THE NURSE TO PLACE A STOMA APPLIANCE ON THIS OPENING. 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 TODAY HER WBC IS ELEVATED, ABDOMEN CONTINUES TO BE NON DISTENDED, SOFT, BUT SHE DOES HAVE SLIGHT TENDERNESS IN THE PERIUMBILICAL AREA. I WILL TREAT THIS EXPECTANTLY FORM THE TIME BEING IN THE HOPE THAT THIS IS A "CONTROLLED" FISTULA AND HOPEFUL WILL HEAL SPONTANEOUSLY WITH NPO AND NUTRITIONAL SUPPORT. WILL WATCH CLOSELY, AFTER A FEW DAYS WILL GET A FISTULOGRAM TO PIN POINT THE ENTERIC ORIGIN OF THE FISTULIZATION. CONTINUE NGT SUCTION AND DRAIN IRRIGATION ORDERED02/05/25 02/05/25 remains sedated and intubated?ventilated, abdomen non distended soft, wound vac in place. TATY drainage serosanguineous 02/08/25 EXTUBATED, GOOD INSPIRATORY EFFORT, BP NML WITHOUT PRESSOR SUPPORT, ABDOMEN SOFT, NON DISTENDED, APPROPRIATELY TENDER, LABS REVIEWED. NO CHANGES TODAY OTHER THAN ALLOW ICE CHIPS PO. WILL ORDER GASTROGRAFIN SMALL BOWEL FOLLOWTHROUGH FOR Friday02/09/25 awake cooperative, wound vac in place, abdomen soft, non distended, appropriately tender, TATY drainage brownish discoloration, will irrigate, her WBC is normal and she is afebrile and normotensive. gastrografin tomorrow 02/10/25 AWAKE,COMFORTABLE, DENIES PAIN, ABDOMEN NON DISTENDED APPROPRIATELY TENDER, WOUND CLEAN AND WELL APPROXIMATED, DRAINS BEING IRRIGATED, LABS OK, GOOD URINE OUTPUT. "SURGICALLY" STABLE 02/11/25 feels well, passing flatus. is hungry, abdomen soft non distended, drainage clearing with irrigation, will wait for Gastrografin small bowel series to be completed, if normal will start po clear liquids 02/12/25 no nausea, change in TATY drainage colort, appears to contaIN, BILE, WILL DC po CLEAR LIQUIDS, CONTINUE ICE CGHIPS, SEND DRAin fluid for amylase and bilirubin, 02/13/25 states she feels well, abdomen non tender, non distended, wound clean and well approximated. drainage slightly clearer, keep npo for now, needs to resume TPN 02/14/25 PATIENT C/O BEING COLD BUT HAS NO PAIN, DRAINAGE SEEMS TO BE CLEARING, SHE HAD A BOWEL MOVEMENTS, ABDOMEN IS SOFT AND NON TENDER, NON DISTENDED, WOUND IS CLEAN AND WELL APPROXIMATED, WILL CONTINUE NPO STATUS AMYLASE ON TATY DRAINAGE FLUID IS GOING TO TAKE SEVERAL DAYS TO BECOME AVAILABLE. CONTINUE TPN 02/16/25 DENIES PAIN,STATES SHE FEELS BETTER, WOUND VAC IN PLACE, ABDOMEN NON TENDER,NON DISTENDED, TATY DRAINAGE SMALL TO MODERATE , WILL CONTINUE IRRIGATING DRAINS, WILL REQUEST GI CONSULT TO CONSIDER ENDOSCOPY. WBC NL,H/H STABLE , ALBUMIN STILL VERY LOW. , 02/17/25 CT SCAN REVIEWED, I SUSPECT THERE IS A SMALL LEAK FROM THE APPEARANCE OF IMAGING ALTHOUGH RADIOLOGIST RECOMMENDED REPEAT CT SCAN (ORDERED). THE DRAINAGE IS SMALL AMOUNT BUT NOW IT IS WITH AN ODOR, I WILL RE INSERT NGT TO ATTEMPT DECREASING THE GASTRIC CONTENTS. ABDOMEN IS SOFT, APPROPRIATELY TENDER, WOUND VAC IN PLACE 02/18/25 AFEBRILE, NORMOTENSIVE4, WBC NL, ALL IMAGING NEGATIVE, ANGIOGRAM SHOWS NO EVIDENCE OF HYPOPERFUSION, CONTRAST AND NON CONTRAST CT SCAN FAILED TO SHOW ANY EVIDENCE OF EXTRAVASATION, THE DRAINAGE CONTINUES TO BE BROWNISH DISCOLORED AND FOULS SMELLING, EXPLAINED TO PT'S SON THAT I HAVE NO EVIDENCE OF ANY GI LEAKAGE, WILL GET A GASTROGRAFIN ENEMA ON FRIDAY, I AM TRYING TO REFRAIN FROM OPERATING ON THE FRAIL ELDERLY PATIENT FOR THE THIRD TIME, SHE WILL NOT TOLERATE ANOTHYER OPERATION WELL. HER ALBUMIN REMAINS VERY LOW.WOUND VAC OK 02/19/25 feels ok,c/o being cold, abdomen soft. non distended, minimally tender, drainage seems to be little less, labs ok, continue as is 02/22/25 she feels well, abdomen is non tender, soft and non distended, drainage slightly less in volume, still discolored,gastrografin enema reviewed by me ( no radiologist/s interpretation available), she has not evacuated the gastrografin according to nurse. 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 will proceed with operation on 02/25/25 at 0715 AM. 02/27/25 SLIGHT IMPROVEMENT, ABDOMEN SOFT, NON DISTENDED, STOMA VIABLE WITHOUT FUNCTION, OK TO TRY GETTING OFF VENTILATOR. 03/01/25 extubated, conversant,oriented, abdomen non distended, appropriately tender, wound clean ans well approximated, drainage serous, stoma viable and with minimal liquid,no gas. will sips of water and ice po 03/02/25 awake comfortable, denies pain, abdomen appropriately tender, wound vac in place, afebrile, normotensive, drainage serosanguineous, cbc stable, stoma viable and with minimal output will resume irrigation of drain 03/03/25 awake ,cooperative, good inspiratory effort, afebrile, normotensive, wound covered with wound vac, drainage serous but cloudy(cultures ordered) abdomen non tender, stoma viable with minimal output. will order gastrografin ugi with small bowel follow throught for tomorow 03/04/25 vital signs stable, good urine output, wound vac ok, abdomen non tender. Xray pending 03/05/25 UGI X RAY SHOWS A NEW AREA OF LEAK,BEING ADEQUATELY DRAINED BY THE TATY DRAIN WHICH IS ADJACENT TO IT, HER ABDOMEN IS NON TENDER. WILL RESUME STRICT NPO STATUS, KEEP NGT TO CONTINUOUS SUCTION, I HAVE CALLED HER SON ILIANA AND EXPLAINED THAT PROBABLY THE INTESTINAL WALL IS NOT HEALING WHENEVER WE PLACE SUTURE AT SITES OF ANASTOMOSES. HER ABDOMEN IS NON TENDER, I WILL TREAT THIS CONSERVATIVELY FOR SOME TIME TO SEE IF THE LEAK MAY SHOW SOME EVIDENCE OF HEALING. YESTERDAY THERE WAS 500 CC OF TATY DRAINAGE. HER ALBUMIN LEVEL IS SLOWLY IMPROVING BUT STILL REMAINS LOW. IT APPEARS THAT THE SUTURES IN HER INTESTINAL ANASTOMOSES HOLD FOR ABOUT A WEEK AND THEN BREAK DOWN. (DRAINAGE TURNED FROM SEROSANGUINEOUS TO GREENISH YESTERDAY. 03/06/25 drainage slightly less in volume, still enteric contents abdomen softn and non tender, non distended. wound vac changed, wound healing, no chjanges for now. discussed with family. 03/08/29 feels better, no pain, abdomen soft and non tender, drainage minimally less, family at bedside, answered questions 03/09/25 son at bedside, patient feels "well" wants to eat, explained that we need to keep her intestine at rest' afebrile, normotensive, drainage less, abdomen non tender, wound vac in p-lace wbc normal today. h/h stable/ continue npo aqnd ngt there is stool in stoma appliance 03/13/25 SLOW IMPROBVEMENT,ABDOMEN NON TENDER, NON DISTENDED, SOME STOOL IN STOMA, DRAINAGE SLIGHTLY LESS VOLUME, CONTINUE IS, NEEDS MOR IV FLUYID (ORDERS GIVEN) 03/15/25 stable, having the NG tube clamped did not cause distress nor did it result in increase of the TATY drainage ,I have therefore removed the NG tube, she does need to remain NPO however, if there are no major changes in her condition in the next 48 hours she would be stable to transfer to a SNF on TPN, I will gladly make "house calls " on here at the facility . abdomen remains non distended, non tender, wound awaiting a wound vac but it is without evidence of infection, I have digitally probed the styoma which has inverted on itself, it is patent ancd without stenosis below the skin level. 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 drainage unchanged Plan discussed with: Patient, Son Dietary Evaluation Review Comments: Nutrition Recommendation: 1) TPN to meet at least 75% estimated needs within 7 days 2) Monitor NPO status, lab values, wt trend, I/O Expected Outcomes/Goals: To meet >75% estimated needs Lab values to improve Fu 2-3 days Is there a minimum of two crit: Yes MELVA RAMESH MD Mar 19, 2025 07:44
--- NOTE | 2025-03-19 12:28 | DVHPNRES ---
Progress Note Date Seen: Mar 19, 2025 Resident Creating Document: KEVIN CONDE RESIDENT Has the PT tested + for MRSA If YES, has PT been informed?: No Medical Necessity Reason Pt with a Central, PICC or Fol: Yes The following are medically ne: PICC Line, Leach Catheter Reason for leach catheter: Strict I&O Subjective Review of Systems This is a 80-year-old lady with past medical history of hypertension, AFib (on Eliquis), diabetes type 2, CKD, came to the hospital due to abdominal pain, and constipation. Admitted on 01/13/2025. Found to have peritonitis due to bowel perforation, and underwent emergent laparotomy with subsequent resection of perforated small bowel and enteroenterostomy. Due to abnormal CARMEN drainage, second exploratory laparotomy performed on 02/04 and found to have perforation near to previous perforation area, underwent resection of area with subsequent anastomosis of proximal jejunal loops. 02/09/2025: Patient seen in the ICU. Continued to be NPO. On 2 L oxygen via nasal cannula. Wound VAC is mild functional, yellowish drainage from incision site, CARMEN drain is functional, draining greenish bile. No signs of fever. No any other night complaints. 02/10/2025: Patient seen and ICU. Patient is to be continued on NPO. Is on room air, wound care to be done, wet-to-dry. Surgery following, low intermittent suction of NG tube, 130 mL of greenish fluid from CARMEN drain, 50 mL from NG tube noted. 02/11/2025: Patient seen in ICU. Patient is to be continued on NPO, is on room air, wound care is wet-to-dry, patient is getting TPN, had 145 removal of greenish drainage from CARMEN drain. Patient has nonblanching redness on sacrum. Today she came complains of 8/10 pain in the abdomen and back. NG tube was clamped. Following surgery. 02/12/25: patient seen in the ICU. She is still NPO. on room air, wound cares were too dry, NG tube removed. Still greenish drainage from CARMEN drain, blackish stool in the colostomy bag. She still complains of pain in the abdomen, back. PT is able to get her to wheelchair. surgery following. 02/13/2025: Patient seen in the ICU. She is still NPO, on TPN, on room air wound care is wet to dry NG tube was removed yesterday. There is blackish stool, blood seen in the colostomy bag today. She still complains of abdominal pain, there was greenish drainage in the wound. Foleys changed, aspirate culture ordered, 02/14/25: Patient seen in the ICU. Patient is still NPO, on TPN, on room air, wound VAC needs component. 80 mL from CARMEN drain. Second opinion by Dr. Rivera to be given. Micafungin added, morphine sulfate changed to 2 mg IV q.4 PRN. 02/15/25: Patient seen in ICU. Patient is still NPO, on TPN, on room air, CARMEN drain in place. Second opinion to be given by Dr. Rivera. 02/16/25: Patient is seen in ICU p.o. continue be NPO on TPN. Plan for laparotomy procedure tomorrow a.m.. No any other complaints. Objective vital signs Vital Sign Date Time Temp Pulse Resp B/P (MAP) Pulse Ox O2 Delivery O2 Flow Rate FiO2 03/19/25 12:00 97.6 98 15 110/50 (70) 95 97.6 03/19/25 08:00 Room Air* 0 21 Total Intake and Output 03/18/25 03/18/25 03/19/25 15:00 23:00 07:00 Intake Total 1186 ml 961 ml 1018 ml Output Total 955 ml 945 ml Balance 1186 ml 6 ml 73 ml medications Current Medications Medications Dose Ordered Sig/Isaura Route Start Time Stop Time Status Last Admin Dose Admin Cefazolin Sodium 50 ml @ 100 mls/hr Q8HR IV 01/13/25 14:00 UNV Vasopressin 20 units/Sodium Chloride 100 ml @ 9 mls/hr Q11H7M IV 01/13/25 18:45 UNV Potassium Chloride 100 ml @ 50 mls/hr Q2H IV 01/16/25 12:45 01/16/25 18:44 UNV Vancomycin HCl 100 ml @ 100 mls/hr DAILY@1200 IV 01/20/25 12:00 UNV Amino Acids 0 ml @ 0 mls/hr PER PHARMACY IV 02/13/25 10:45 Ondansetron HCl 4 mg Q4HPRN PRN IV 02/21/25 09:30 03/12/25 17:08 4 MG Multi-Ingredient Ointment 1 applic DAILY TOP 02/23/25 10:00 03/19/25 07:34 1 APPLIC Norepinephrine Bitartrate 250 ml @ 3.75 mls/hr Q24H IV 02/25/25 11:45 02/26/25 11:51 7.5 MLS/HR Diagnostic Test (Pha) 1 strip Q4HR 02/26/25 16:00 Cancel Dextrose 50 ml UD PRN IV 02/26/25 14:15 Diagnostic Test (Pha) 1 strip IQ4HR 02/26/25 16:00 UNV Dextrose 50 ml UD PRN IV 02/26/25 16:00 UNV Insulin Human Regular Q6HR SC 03/02/25 12:00 03/19/25 11:24 3 UNITS Pantoprazole Sodium 40 mg BID IV 03/08/25 22:00 03/19/25 07:33 40 MG Levothyroxine Sodium 50 mcg DAILY IV 03/09/25 10:00 03/19/25 07:33 50 MCG Lidocaine 1 patch DAILY TOP 03/12/25 10:00 03/19/25 07:34 1 PATCH Iron Sucrose 110 ml @ 110 mls/hr DAILY@1200 IV 03/17/25 12:00 03/21/25 12:59 03/19/25 10:41 110 MLS/HR Micafungin Sodium 100 mg/Sodium Chloride 100 ml @ 100 mls/hr DAILY IV 03/18/25 10:00 03/19/25 07:40 100 MLS/HR Acetaminophen 650 mg Q6HP PRN IA 03/18/25 10:00 Fat Emulsion Intravenous 150 ml/Sodium Acetate 50 meq/Potassium Acetate 40 meq/ Potassium Phosphate 22 meq/ Magnesium Sulfate 12 meq/ Multivitamins 10 ml/Insulin Human Regular 11 units/ Amino Acids/ Dextrose/Purified Water 1,713.11 ml @ 71 mls/hr Q24H8M IV 03/18/25 22:00 03/19/25 21:59 03/18/25 21:54 71 MLS/HR Meropenem 50 ml @ 17 mls/hr Q12HR IV 03/18/25 22:00 03/19/25 07:34 17 MLS/HR Hydromorphone HCl 1 mg Q4HPRN PRN IV 03/18/25 18:30 03/19/25 11:44 1 MG Morphine Sulfate 4 mg Q4HPRN PRN IV 03/18/25 18:30 03/18/25 22:26 4 MG Examination General Appearance: Alert and Oriented x2 HEENT: Atraumatic, Mucous membranes moist/pink Respiratory: Clear to auscultation, Normal air movement, No added sounds Cardiovascular: Regular rate, Normal S1, Normal S2, No murmurs Abdominal: Active bowel sounds, Soft, no distention, no tenderness, colostomy bag in place and 1 CARMEN drain with greenish fluid Extremities: There is bilateral upper extremity edema, with seeping fluid Skin: No Significant rash, except past surgical scars Neuro: more alert and oriented Nurse was there as patient transporter during examination laboratory and microbiology Laboratory Tests 03/19/25 02:42 Test 03/19/25 02:42 Range/Units Serum Glucose 152 H 74-106 mg/dL Microbiology Date/Time Source Procedure Growth Status 03/16/25 18:00 Aspirate Gram Stain - Final Resulted 03/16/25 18:00 Body Fluid Culture - Preliminary Escherichia coli Yeast, not Zoe albicans Resulted 03/16/25 15:48 Urine - Leach [place] Urine Culture - Preliminary Yeast, not Zoe albicans Resulted 03/07/25 08:32 Blood Blood Culture - Final Staphylococcus epidermidis Complete 02/25/25 11:48 Sputum Gram Stain - Final Complete 02/25/25 11:48 Sputum Respiratory Culture - Final Complete 01/13/25 17:10 Nose MRSA Screen - Final Complete Problem List/Assessment/Plan Problem List/Assessment/Plan Neurology # Chronic ischemic changes # Chronic Cortical atrophy - Head CT (01/29): Chronic microangiopathy and cortical atrophy. - reintubated on 02/25/25 during surgery # Extubated on 02/28 Cardiovascular # Septic shock secondary to hollow viscus perforation. # Paroxysmal atrial fibrillation with a second-degree hypercoagulable state currently NSR # Chronic diastolic heart failure with preserved EF 65% # Hypertension. - Echocardiogram (01/15): Normal LV EF (65%), mild LVH, mild LV diastolic dysfunction. - Chest X-ray: Bibasilar atelectasis. - ZEFERINO?DS?-VASc score >5 - cardiology on board - initially on Lovenox therapeutic but Dc'd due to low hemoglobin - Labetalol PRN Pulmonary # Acute hypoxic respiratory failure secondary to bilateral pleural effusion/pneumonia s/p re-intubation, status post extubation 02/28 - monitor with daily CXR - Sputum culture 01/29 Presumptive Zoe albicans and : negative - Reintubated on 02/25. - Chest Physiotherapy ongoing. - extubated today Gastrointestinal / Liver # Acute Bacterial Peritonitis due to small bowel perforation vs Perisplenic abscess. s/p multiple laparotomies # Transaminitis secondary to shock. # Anion gap metabolic acidosis due to bowel ischemia and lactic acidosis - CT abdomen/pelvis (02/16): Pneumoperitoneum, extraluminal contrast, perisplenic/subdiaphragmatic collection (7.1 1.1 cm). - Small bowel series (02/11): Normal. 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 Procedures: - First laparotomy (01/13): Resection of perforated small bowel, enteroenterostomy. - Second laparotomy (02/04): Resection near previous perforation, jejunal anastomosis. - Third laparotomy (02/25): Resection of distal ileum, end-to-end anastomosis, ileostomy. Cultures: - Peritoneal fluid (01/13): E. coli, Klebsiella pneumoniae (sensitive to meropenem). - Peritoneal fluid (02/17): E. coli, Stenotrophomonas maltophilia. - Aspirate Showed(03/02): VRE - IR-guided pigtail drain placed; drained 50 cc purulent fluid. - CARMEN drains placed in 4 quadrants initially and now patient has only 1 CARMEN drain - Initially NPO, TPN initiated. - NG tube placed. - IV antimicrobials meropenem and micafungin - Initially patient is on Levofloxacin, Flagyl (02/03); Vancomycin and Meropenem (); Meropenem (); Vancomycin () then eventually switched to above antimicrobials - Started Daptomycin (03/08), Bactrim stopped (03/08) - added micafungin - (03/17) - 2nd opinion to be given by Dr. Rivera -plan for possible exploratory laparotomy tomorrow -Gastrografin scan(03/05) showed Contrast extravasation is seen in the proximal small bowel, possibly left sided jejunum near the surgical drain can be seen with a leak. -patient kept NPO - NG tube removed (03/15) Genitourinary / Kidney # ISRRAEL likely secondary to shock/volume depletion- resolved - Nephrology consulted for ISRRAEL. Endocrine # Hypothyroidism: TSH 42.29, low T4 # Type 2 diabetes mellitus: HbA1c 8.2%.- # Episodes of hypoglycemia. # Hypothyroidism - continuously monitoring blood glucose and on ISS - Started on Levothyroxine 50 daily Metabolic Hypokalemia. Hyperkalemia. Hyponatremia: D5W at 75 mL/hr per nephrology. Hypophosphatemia: given IV phosphate Nutrition: Severe protein malnutrition. Hematology # Acute on chronic anemia (hemodilution/post-surgical). # Severe thrombocytopenia, HIT # Acute DVT of right upper extremity. - Ultrasound (01/17): Partial thrombus in right internal jugular and cephalic veins. - hemoglobin today 6.9, transfused 1 more unit of PRBC 02/28 - Transfused total 8 units PRBC, 2 platelet units. - continuously monitor H&H - hold blood thinners Musculoskeletal / Skin # Rib fracture due to fall. Nutrition: TPN initiated. Bowel Regimen: As needed. GI Prophylaxis: Pantoprazole bid DVT Prophylaxis: Lovenox (held/ Dc'd due to low hemoglobin). Lines / Tubes / Devices Airway: Intubated on 01/14, extubated on 02/07, reintubated on 02/25 extubated 02/28 Vascular Access: PICC line placed in right upper thigh on 01/26. Drips: Dc'd pressors and sedatives. Urinary: Leach catheter placed on 01/14, exchanged on 02/14. Exchanged on 03/17. CARMEN drains in 1 quadrant. NG tube removed,(03/15) Patient is seen at bedside with the family member . Plan for possible exploratory laparotomy tomorrow a.m. Continue IV iron given low hemoglobin. Continue with NPO and TPN in antibiotic regime. No any other new complaints. Goals of care addressed with patient's family members for more than 35 minutes: Full code status Care plan updated to the patient family Chris (son) AT bedside and addressed all concerns Critical care time spent more than 84 minutes excluding procedures and including discussion with the family Case discussed with Dr. Carvalho and RN Plan discussed with: Patient, Other (rn) My Orders My Orders Orders - KEVIN CONDE RESIDENT Procedure Category Date Status Time Meropenem 1gm Ivpb PHA 03/18/25 In Process (Merrem 1gm/50ml) 22:00 Dietary Evaluation Review Comments: Nutrition Recommendation: 1) TPN to meet at least 75% estimated needs within 7 days 2) Monitor NPO status, lab values, wt trend, I/O Expected Outcomes/Goals: To meet >75% estimated needs Lab values to improve Fu 2-3 days Is there a minimum of two crit: Yes CC Plasma Assessment Blood Product Administration S: [id number] KEVIN CONDE RESIDENT Mar 19, 2025 12:28
[2025-03-19] MEDS: TPN PER PHARMACY IV NR (21:27)
--- NOTE | 2025-03-19 21:40 | DVHPN2 ---
Consult Progress Note Objective vital signs Vital Sign Date Time Temp Pulse Resp B/P (MAP) Pulse Ox O2 Delivery O2 Flow Rate FiO2 03/19/25 21:13 106 16 111/66 03/19/25 20:00 93 Room Air* 0 21 03/19/25 20:00 99.1 99.1 Total Intake and Output 03/18/25 03/18/25 03/19/25 15:00 23:00 07:00 Intake Total 1186 ml 961 ml 1018 ml Output Total 955 ml 945 ml Balance 1186 ml 6 ml 73 ml medications Current Medications Medications Dose Ordered Sig/Isaura Route Start Time Stop Time Status Last Admin Dose Admin Cefazolin Sodium 50 ml @ 100 mls/hr Q8HR IV 01/13/25 14:00 UNV Vasopressin 20 units/Sodium Chloride 100 ml @ 9 mls/hr Q11H7M IV 01/13/25 18:45 UNV Potassium Chloride 100 ml @ 50 mls/hr Q2H IV 01/16/25 12:45 01/16/25 18:44 UNV Vancomycin HCl 100 ml @ 100 mls/hr DAILY@1200 IV 01/20/25 12:00 UNV Amino Acids 0 ml @ 0 mls/hr PER PHARMACY IV 02/13/25 10:45 Ondansetron HCl 4 mg Q4HPRN PRN IV 02/21/25 09:30 03/12/25 17:08 4 MG Multi-Ingredient Ointment 1 applic DAILY TOP 02/23/25 10:00 03/19/25 07:34 1 APPLIC Norepinephrine Bitartrate 250 ml @ 3.75 mls/hr Q24H IV 02/25/25 11:45 02/26/25 11:51 7.5 MLS/HR Diagnostic Test (Pha) 1 strip Q4HR 02/26/25 16:00 Cancel Dextrose 50 ml UD PRN IV 02/26/25 14:15 Diagnostic Test (Pha) 1 strip IQ4HR 02/26/25 16:00 UNV Dextrose 50 ml UD PRN IV 02/26/25 16:00 UNV Insulin Human Regular Q6HR SC 03/02/25 12:00 03/19/25 17:07 2 UNITS Pantoprazole Sodium 40 mg BID IV 03/08/25 22:00 03/19/25 21:10 40 MG Levothyroxine Sodium 50 mcg DAILY IV 03/09/25 10:00 03/19/25 07:33 50 MCG Lidocaine 1 patch DAILY TOP 03/12/25 10:00 03/19/25 07:34 1 PATCH Iron Sucrose 110 ml @ 110 mls/hr DAILY@1200 IV 03/17/25 12:00 03/21/25 12:59 03/19/25 10:41 110 MLS/HR Micafungin Sodium 100 mg/Sodium Chloride 100 ml @ 100 mls/hr DAILY IV 03/18/25 10:00 03/19/25 07:40 100 MLS/HR Acetaminophen 650 mg Q6HP PRN RI 03/18/25 10:00 Fat Emulsion Intravenous 150 ml/Sodium Acetate 50 meq/Potassium Acetate 40 meq/ Potassium Phosphate 22 meq/ Magnesium Sulfate 12 meq/ Multivitamins 10 ml/Insulin Human Regular 11 units/ Amino Acids/ Dextrose/Purified Water 1,713.11 ml @ 71 mls/hr Q24H8M IV 03/18/25 22:00 03/19/25 21:59 03/18/25 21:54 71 MLS/HR Meropenem 50 ml @ 17 mls/hr Q12HR IV 03/18/25 22:00 03/19/25 21:10 17 MLS/HR Hydromorphone HCl 1 mg Q4HPRN PRN IV 03/18/25 18:30 03/19/25 21:13 1 MG Morphine Sulfate 4 mg Q4HPRN PRN IV 03/18/25 18:30 03/18/25 22:26 4 MG Fat Emulsion Intravenous 150 ml/Sodium Chloride 10 meq/ Sodium Acetate 50 meq/Potassium Acetate 40 meq/ Potassium Phosphate 22 meq/ Magnesium Sulfate 12 meq/ Multivitamins 10 ml/Insulin Human Regular 8 units/ Amino Acids/ Dextrose/Purified Water 1,765.58 ml @ 73 mls/hr [id number] IV 03/19/25 22:00 03/20/25 21:59 03/19/25 21:27 73 MLS/HR laboratory and microbiology Laboratory Tests 03/19/25 02:42 Test 03/19/25 02:42 Range/Units Serum Glucose 152 H 74-106 mg/dL Problem List/Assessment/Plan Problem List/Assessment/Plan ASSESSMENT AND PLAN: ID Problem List: -Perforated small bowel with persistent leak; intra-abdominal sepsis; status post multiple exploratory laparotomies with adhesiolysis and enteroenterostomies; CARMEN drains in place -Septic shock; acute hypoxic respiratory failure -Acute kidney injury (ISRRAEL) with acute tubular necrosis (ATN) improved -Transaminitis likely ischemic hepatitis improving -Thrombocytopenia (worsened ~01/19 while on vancomycin/fluconazole) -Diabetes mellitus -On apixaban (Eliquis) for last 2 weeks indication unclear -Past surgical history: section; hernia repair Assessment This is a 10 y.o. female with diabetes and prior and hernia repair, who presented with 4 days of sharp lower abdominal pain. Initial ED evaluation notable for CT A/P demonstrating free intraperitoneal air and small bowel inflammatory changes concerning for perforated viscus with mild ascites and mesenteric stranding. She underwent an exploratory laparotomy on 01/13 with lysis of adhesions, small bowel enteroenterostomy, and placement of two Mendel- Steele drains; peritoneal cultures at that time grew Escherichia coli and Klebsiella pneumoniae (both ceftriaxone susceptible). Postoperatively she required norepinephrine (Levophed) and broad-spectrum antibiotics. Course complicated by recurrent sepsis and suspected enterocutaneous/peritoneal contamination, requiring re-exploration on 02/03 with evacuation of copious intra-abdominal infection/abscesses and revision of anastomosis; intraoperative cultures reportedly not obtained. A drain sample dated 01/28 grew Stenotrophomonas (TMP-SMX susceptible). Ongoing respiratory issues prompted empiric vancomycin, later discontinued when sputum grew only Zoe albicans. A third operation on 02/25 for persistent feculent leakage and peritonitis showed a distal ileal perforation proximal to adhesional obstruction; this was resected with primary anastomosis, and further adhesiolysis performed. Upper GI series on 03/04 demonstrates contrast extravasation from proximal small bowel (likely left jejunum) near a surgical drain, consistent with a persistent leak that appears to be adequately drained clinically. She has been afebrile since 03/03, is extubated to 2 L NC, hemodynamically supported on low-dose norepinephrine, and clinically stable abdominally (nontender). LFTs that had peaked during ischemic episodes are improving. Renal function has improved from admission. Cultures/culture interpretation: Earlier peritoneal cultures with E. coli and Klebsiella; drain fluid with Stenotrophomonas (01/28) and subsequent peritoneal/aspirate samples showing E. coli and vancomycin-resistant Enterococcus (VRE) on 03/02; one of four blood culture bottles (03/07) positive for Staphylococcus epidermidis, felt to be contaminant. Given the persistent bowel leak with external drainage and the timing/source of cultures, current drain cultures are likely colonization and may not represent true invasive pathogens. Antimicrobial course (per transcript): initial piperacillin-tazobactam (Zosyn) + vancomycin through 01/19; vancomycin stopped for suspected contribution to thrombocytopenia; courses including meropenem and micafungin through 01/31; then levofloxacin + metronidazole + micafungin through 02/03; meropenem continued thereafter with vancomycin re-trial for presumed pneumonia (later stopped by 02/21 after Zoe-only sputum); micafungin added/continued; trimethoprim- sulfamethoxazole (Bactrim) started 02/21 for Stenotrophomonas coverage; transcript also notes meropenem and rifampin continued until today. 03/16: sp NGT removal, stoma and drain with output. off levophed Plan: -Intra-abdominal sepsis with persistent small bowel leak: -Source control: continue to ensure CARMEN drains are functioning; avoid routine re- culturing from drains as results likely represent colonization and may mislead management. -Imaging monitoring: recommend repeat CT abd pelvis pelvis prior to discharge to ensure bowel leak is contained. -Antibiotics: -De-escalate broad coverage toward enteric pathogens (E. coli/Klebsiella) and away from agents targeting colonizers. -No ongoing coverage for Stenotrophomonas is required at this time. -No coverage for VRE is recommended; -Continue piperacillin-tazobactam (Zosyn). recommend continuing until bowel drainage slows to under 100cc daily and bowel leak in confirmed contained. -Antifungal: can stop micafungin at this sp 14 days course, no ongoing concern for abdominal fungal infection. -Duration: continue until leak is resolved or clearly contained with clinical improvement. -Transition to oral therapy when patient can tolerate and when clinically appropriate. -Respiratory: extubated to 2 L NC; supportive care; chest radiograph with persistent interstitial opacities, left basilar consolidation, small pleural effusions monitor clinically. -Renal: ISRRAEL/ATN improved (Cr now ~0.99); continue renal dosing of antimicrobials as indicated; monitor BMP. -Hepatic: transaminases improving from prior ischemic hepatitis; trend LFTs. -Hematology: platelet count currently ~118 K; monitor CBC. -Anticoagulation: on apixaban (Eliquis) for unclear indication per history; reconcile indication and risk/benefit with primary/surgical teams in context of recent surgeries/leak. -Nutrition/NG: continue NG suction per surgery; nutrition per surgical/ICU teams. -Lines/Drains: maintain CARMEN drains; monitor output and character; avoid routine drain cultures. -Follow-up: ID will continue to follow clinically; adjust therapy as new data emerge. Authorized and Performed by: sheron pedraza Total critical care time: Approximately 56 minutes Due to a high probability of clinically significant, life threatening deterioration, the patient required my highest level of preparedness to intervene emergently and I personally spent this critical care time directly and personally managing the patient. This critical care time included obtaining a history; examining the patient; pulse oximetry; ordering and review of studies; arranging urgent treatment with development of a management plan; evaluation of patient's response to treatment; frequent reassessment; and, discussions with other providers. This critical care time was performed to assess and manage the high probability of imminent, life-threatening deterioration that could result in multi-organ failure. It was exclusive of separately billable procedures and treating other patients and teaching time. Isolation Precautions: standard \*Assessment and plan were discussed with the patient as written above (when able/appropriate). \*Plan is subject to change pending incorporation of new incoming information/diagnostics. Updates may be added as addendum at the bottom (OR TOP) of this note. Thank you for the consult. ID will continue to follow. Please contact Infectious Disease for any questions or concerns. Electronically signed by: Sheron Pedraza MD, 03/11/2025 \ Physical Exam: General: NAD Neck: Supple. No masses. HEENT: PERRL. Normal lids and conjunctiva. Moist mucous membranes. Oropharynx without lesions, exudates or excessive erythema. Normal appearance of the external aspects of the nose and ears. Heart: Regular rhythm, normal rate. No murmur. No lower extremity edema. Lungs: Normal respiratory effort. Clear to auscultation bilaterally. No wheezes. No crackles. Abdomen: Soft. Non-tender. Non-distended. No masses or abdominal hernia. drain and stoma functional . Msk: No digital cyanosis. Normal strength and tone in all 4 limbs Skin: Warm and dry, no rashes. Neuro: Alert. No facial droop or slurred speech. Extra-ocular movements intact. Sensation intact to soft touch in all 4 limbs. Psych: Appropriate mood. Full affect. Oriented to person, place, time, and situation. Dietary Evaluation Review Comments: Nutrition Recommendation: 1) TPN to meet at least 75% estimated needs within 7 days 2) Monitor NPO status, lab values, wt trend, I/O Expected Outcomes/Goals: To meet >75% estimated needs Lab values to improve Fu 2-3 days Is there a minimum of two crit: Yes CC Plasma Assessment Blood Product Administration S: [id number] SHERON PEDRAZA MD Mar 19, 2025 21:40
--- NOTE | 2025-03-19 22:49 | DVHPN2 ---
Subjective DOS: 03/19/2025 Patient seen and examined at bedside. Breathing comfortably on room air. Overnight events reviewed. HPI: A 80-year-old woman with past medical history of diabetes mellitus who presented to the ED on 01/13/25 with c/o abdominal pain x4 days. Patient reported 8 - 9/10 pain that was sharp and constant, throughout her abdomen. She did note pain medications make it better. Patient admitted to being noncompliant with her Eliquis for the past 2 weeks. Patient denied any fever, chills, chest pain, shortness of breath, or other acute complaints. She reported falling on her left side on January 06, 2025. Patient does not use home oxygen. Patient was admitted for further care, subsequently found to have perforated bowel and underwent exploratory laparotomy with repair of bowel perforation. Pulmonary consultation was requested for evaluation and management due to acute hypoxic respiratory failure requiring mechanical ventilator. Past Medical History: Diabetes mellitus Past Surgical History: , Hernia Repair Medications: Reviewed. Allergies: No known drug allergies. Family History: Arthritis. No family history of premature CAD. No family history of lung disorders. Social History: Nonsmoker. No alcohol or illicit drug use. Reviewed: Care Plan, H&P Changes from previous H/P or p: No Changes Gastrointestinal: Abdominal Pain Objective Vitals Vital Signs Date Time Temp Pulse Resp B/P (MAP) Pulse Ox O2 Delivery O2 Flow Rate FiO2 03/19/25 21:13 106 16 111/66 03/19/25 20:00 93 Room Air* 0 21 03/19/25 20:00 99.1 99.1 Intake/Output Intake and Output 03/19/25 07:00 Intake Total 3165 ml Output Total 1900 ml Balance 1265 ml Intake Oral 0 ml IV Total 3165 ml Output Urine Total 1725 ml Stool Total 5 ml Drainage Total 170 ml General Appearance: Alert, Oriented X3, No acute distress, Other HEENT: Atraumatic, Mucous membr. moist/pink Neck: Supple Lungs: Clear to auscultation, Other (Decreased air entry bilaterally) Cardiovascular: Regular rate, Normal S1, Normal S2, No murmurs, Gallops, Rubs Abdomen: Normal bowel sounds, Soft, No tenderness Extremities: No clubbing, No cyanosis, No edema Neuro: Strength at 5/5 X4 ext, Sensation intact, Cranial nerves 3-12 NL Psych/Mental Status: Mental status NL, Mood NL Medications Current Medications Medications Dose Ordered Sig/Isaura Route Start Time Stop Time Status Last Admin Dose Admin Cefazolin Sodium 50 ml @ 100 mls/hr Q8HR IV 01/13/25 14:00 UNV Vasopressin 20 units/Sodium Chloride 100 ml @ 9 mls/hr Q11H7M IV 01/13/25 18:45 UNV Potassium Chloride 100 ml @ 50 mls/hr Q2H IV 01/16/25 12:45 01/16/25 18:44 UNV Vancomycin HCl 100 ml @ 100 mls/hr DAILY@1200 IV 01/20/25 12:00 UNV Amino Acids 0 ml @ 0 mls/hr PER PHARMACY IV 02/13/25 10:45 Ondansetron HCl 4 mg Q4HPRN PRN IV 02/21/25 09:30 03/12/25 17:08 4 MG Multi-Ingredient Ointment 1 applic DAILY TOP 02/23/25 10:00 03/19/25 07:34 1 APPLIC Norepinephrine Bitartrate 250 ml @ 3.75 mls/hr Q24H IV 02/25/25 11:45 02/26/25 11:51 7.5 MLS/HR Diagnostic Test (Pha) 1 strip Q4HR 02/26/25 16:00 Cancel Dextrose 50 ml UD PRN IV 02/26/25 14:15 Diagnostic Test (Pha) 1 strip IQ4HR 02/26/25 16:00 UNV Dextrose 50 ml UD PRN IV 02/26/25 16:00 UNV Insulin Human Regular Q6HR SC 03/02/25 12:00 03/19/25 17:07 2 UNITS Pantoprazole Sodium 40 mg BID IV 03/08/25 22:00 03/19/25 21:10 40 MG Levothyroxine Sodium 50 mcg DAILY IV 03/09/25 10:00 03/19/25 07:33 50 MCG Lidocaine 1 patch DAILY TOP 03/12/25 10:00 03/19/25 07:34 1 PATCH Iron Sucrose 110 ml @ 110 mls/hr DAILY@1200 IV 03/17/25 12:00 03/21/25 12:59 03/19/25 10:41 110 MLS/HR Micafungin Sodium 100 mg/Sodium Chloride 100 ml @ 100 mls/hr DAILY IV 03/18/25 10:00 03/19/25 07:40 100 MLS/HR Acetaminophen 650 mg Q6HP PRN MT 03/18/25 10:00 Meropenem 50 ml @ 17 mls/hr Q12HR IV 03/18/25 22:00 03/19/25 21:10 17 MLS/HR Hydromorphone HCl 1 mg Q4HPRN PRN IV 03/18/25 18:30 03/19/25 21:13 1 MG Morphine Sulfate 4 mg Q4HPRN PRN IV 03/18/25 18:30 03/18/25 22:26 4 MG Fat Emulsion Intravenous 150 ml/Sodium Chloride 10 meq/ Sodium Acetate 50 meq/Potassium Acetate 40 meq/ Potassium Phosphate 22 meq/ Magnesium Sulfate 12 meq/ Multivitamins 10 ml/Insulin Human Regular 8 units/ Amino Acids/ Dextrose/Purified Water 1,765.58 ml @ 73 mls/hr [id number] IV 03/19/25 22:00 03/20/25 21:59 03/19/25 21:27 73 MLS/HR Laboratory Results Laboratory Tests 03/19/25 02:42 Chemistry Test 03/19/25 02:42 Albumin 1.9 g/dL (3.2-4.8) L Calcium Level 8.7 mg/dL (8.7-10.4) Magnesium Level 2.1 mg/dL (1.6-2.6) Phosphorus Level 3.5 mg/dL (2.4-5.1) Total Protein 4.8 g/dL (5.7-8.2) L LFT Test 03/19/25 02:42 Alanine Aminotransferase (ALT) 33 U/L (7-40) Alkaline Phosphatase 129 U/L (46-116) H Aspartate Amino Transferase (AST) 48 U/L (13-40) H Total Bilirubin 2.9 mg/dL (0.2-1.0) H Urinalysis Test 01/14/25 02:00 03/16/25 15:48 Urine Amorphous Crystals Few /hpf (None Seen) Urine Creatinine 34.09 mg/dL (30.0-125.0) Urine Protein/Creatinine Ratio 3.85 Urine Sodium 76 mmol/L (40-220) Urine Total Protein 131.1 mg/dL (1-14) H Urine Color Yellow (Yellow) Urine Clarity Clear (Clear) Urine pH 6.5 (5.0-9.0) Urine Specific Emerson 1.011 (1.001-1.035) Urine Protein Trace (Negative) H Urine Ketones Negative (Negative) Urine Blood Trace /uL (Negative) H Urine Nitrite Negative (Negative) Urine Bilirubin Negative (Negative) Urine Urobilinogen Normal mg/dL (Negative) Urine Leukocyte Esterase 1+ /uL (Negative) Urine RBC 3 /hpf (0 - 4) Urine Microscopic WBC 11 /HPF (0-5) H Urine Squamous Epithelial Cells Few /hpf (<5) Urine Bacteria None seen /hpf (None Seen) Urine Yeast (Budding) Few /hpf (None Seen) Urine Glucose 3+ mg/dL (Normal) H Microbiology Microbiology Date/Time Source Procedure Growth Status 03/16/25 18:00 Aspirate Gram Stain - Final Resulted 03/16/25 18:00 Body Fluid Culture - Preliminary Escherichia coli Yeast, not Zoe albicans Resulted 03/16/25 15:48 Urine - [place] Urine Culture - Preliminary Yeast, not Zoe albicans Resulted 03/07/25 08:32 Blood Blood Culture - Final Staphylococcus epidermidis Complete 02/25/25 11:48 Sputum Gram Stain - Final Complete 02/25/25 11:48 Sputum Respiratory Culture - Final Complete 01/13/25 17:10 Nose MRSA Screen - Final Complete Assessment/Plan Assessment/Plan Impression: Acute hypoxic respiratory failure Atelectasis Pleural effusion Acute metabolic encephalopathy secondary to acute hypoxic respiratory failure Pulmonary edema due to chronic heart failure with preserved ejection fraction Perforation of small bowel status post exploratory laparotomy Acute on chronic kidney disease secondary to shock, vasomotor nephropathy Anemia Sepsis with septic shock secondary to perforation of small bowel Events: Remains on room air No distress Patient in distress due to pain. Pain control Avoid oversedation Dilaudid 1 mg IVP q.4 hours PRN severe pain. Per Surgery, the ileostomy has inverted somewhat and only minimal stool is passing into the appliance, attempting dilatation of stoma and possible revision Patient NPO for planned procedure in AM. Wound care, wet-to-dry. Surgery following, low intermittent suction of NG tube No signs of fever. Continue to monitor drainage from NG tube, CARMEN drain. Follow up Surgery recommendations Continue physical therapy. HOB elevation Aspiration precautions Continue antibiotics/antifungal coverage ID recommendations appreciated. Protonix for GI ppx TPN for nutritional support Labs reviewed. Hemoglobin trended down to 7.6 g/dL Continue to monitor hemoglobin Transfuse if less than 7.0 g/dL. Iron supplementation Pain control Avoid oversedation Physical Therapy Gastrografin study, positive for leak. Study demonstrated contrast extravasation is seen in the proximal small bowel, possibly left sided jejunum near the surgical drain can be seen with a leak. Poor wound healing, leakage noted. Patient NPO due to leak. GI/Surgery recs appreciated. Labs and imaging reviewed. Rest of plan as noted below. Plan: S/p extubation on 03/02/25 Supplemental oxygen PRN Titrate to keep O2 sats above 92%. Continue antibiotics. F/u cultures. Continue antifungal TPN for nutritional support Monitor renal function due to acute kidney injury. Monitor electrolytes. Supplement as necessary. Monitor ins and outs Monitor hemoglobin Transfuse if less than 7.0 g/dL. Follow up GI recommendations Follow up Surgery recommendations Wound care Nutritional support. Accu-Cheks, ISS. GI/DVT prophylaxis. Prognosis: Poor given multiple comorbidities. Condition: Critical Rest of plan per hospitalist and other consultants. A total of 35 minutes of critical care time was spent reviewing the patient record, examining the patient, making a diagnostic and therapeutic plan, discussing this plan with the medical personnel, following up on diagnostic studies and following the patient for clinical stability excluding any and all procedures. At least 50% of this time was spent in direct, [id number] contact. Thank you for allowing me to participate in this patient's care. Further recommendations will depend on patient's clinical course. Please do not hesitate to contact me if you have any questions or concerns. This medical document was created using an electronic medical record system with [employer] dictation system. Although this document has been carefully reviewed, there may still be some phonetic and typographical errors. These areas are purely typographical due to imperfections of the software programs, and do not reflect any compromise in the patient's medical care. Plan discussed with: Patient, Other (MASHA Deras) Visit Coding Pulmonary Billing Provider: MORA LANGSTON MD Date of Service if different f: Mar 19, 2025 Common Visit Codes: [id number] INP/OBS CARE(HIGH), [id number] CARE 30-74 MIN MORA LANGSTON MD Mar 19, 2025 22:49
[2025-03-20] VITALS (69 sets, daily range): BP systolic 46–172; BP diastolic 25–129; PULSE 95–159; RESP 12–46; TEMP 96.8–99.5; O2SAT 74–100
[2025-03-20 04:00] LABS: Mean Corpuscular Hemoglobin 35.9 pg (28.0-32.0)
[2025-03-20 04:02] LABS: Hematocrit 22.3 % (36.0-46.0); Hemoglobin 7.7 g/dL (12.2-16.2); Mean Corpuscular Volume 104.2 fL (80.0-100.0); Nucleated Red Blood Cells % 0.3 %
[2025-03-20 04:12] LABS: INR 1.24 (0.9-1.15); Partial Thromboplastin Time 30.4 SEC (24.5-34.5); Prothrombin Time 12.9 sec (9.3-11.8)
[2025-03-20 04:23] LABS: Alanine Aminotransferase 31 U/L (7-40); Anion Gap 8 (5-15); BUN/Creatinine Ratio 41.9 (10.0-20.0); Calcium 9.5 mg/dL (8.7-10.4); Carbon Dioxide 26 mmol/L (20-31); Chloride 103 mmol/L (98-107); Magnesium 2.3 mg/dL (1.6-2.6); Potassium 4.3 mmol/L (3.5-5.1); Sodium 137 mmol/L (136-145)
[2025-03-20 04:37] LABS: Albumin 2.2 g/dL (3.2-4.8); Alkaline Phosphatase 135 U/L (46-116); Bilirubin, Total 3.0 mg/dL (0.2-1.0); Blood Urea Nitrogen 39 mg/dL (9-23); Glucose 147 mg/dL (74-106); Total Protein 5.3 g/dL (5.7-8.2)
[2025-03-20] MEDS: ceFAZolin 1GM/50ML 50 ML IV ONE (07:24)
[2025-03-20] MEDS ORDERED: ONDANSETRON HCL 4 MG/2 ML VIAL IV PRN (07:30)
[2025-03-20] MEDS ORDERED: METOCLOPRAMIDE HCL 5MG/ml INJ 2ml VIAL IV PRN (07:30)
[2025-03-20] MEDS ORDERED: MIDAZOLAM HCL 2MG/2ML 2ml VIAL (1mg/ml) ONE (07:35)
[2025-03-20] MEDS ORDERED: fentaNYL CITRATE 100 MCG/2 ML VL ONE (07:35)
[2025-03-20] MEDS ORDERED: ONDANSETRON HCL 4 MG/2 ML VIAL ONE (07:35)
[2025-03-20] MEDS ORDERED: METOCLOPRAMIDE HCL 5MG/ml INJ 2ml VIAL ONE (07:35)
[2025-03-20] MEDS ORDERED: LIDOCAINE 2% (LOCAL ANESTH.) PF 5ml SDV ONE (07:35)
[2025-03-20] MEDS ORDERED: PROPOFOL 10 MG/ML 20 ML IV ONE (07:36)
[2025-03-20] MEDS ORDERED: ROCURONIUM 10MG/ML 10ML VIAL IV ONE (07:36)
[2025-03-20] MEDS ORDERED: HYDROMORPHONE HCL 1 MG/ML INJ IV PRN (07:45)
[2025-03-20] MEDS ORDERED: SODIUM CHLORIDE LOCK 10 ML ONE (07:58)
[2025-03-20] MEDS ORDERED: SUGAMMADEX 200mg/2ml Vial (100MG/ML) IV ONE (09:49)
[2025-03-20] MEDS ORDERED: PHENYLEPHRINE HCL 10 MG/ML VL ONE (09:52)
[2025-03-20] MEDS ORDERED: HYDROmorphone HCL 2 MG/ML VL/or syr ONE (10:21)
[2025-03-20] MEDS: HYDROmorphone HCL 2 MG/ML VL/or syr ONE (11:39)
--- NOTE | 2025-03-20 11:49 | DVHOP ---
DATE OF SURGERY: 03/20/2025 PREOPERATIVE DIAGNOSES: * Stoma malfunction. * Persistent enteric cutaneous fistula. SURGEON: Christian Christy MD DESKTOP PUBLISHING SPECIALIST: Jean Claude Preciado NP ANESTHESIA: General endotracheal. ANESTHESIOLOGIST: Jose Patterson. PROCEDURES: * Exploratory laparotomy. * Very extensive lysis of adhesions. * Repair of 3 ischemic perforations of small bowel. * Evacuation of multiple interloop abscesses. * Revision of ileostomy. DESCRIPTION OF PROCEDURE: Under general endotracheal anesthesia with the skin prepped and draped following removal of the wound VAC from the patient's midline incision, it became evident that there was bilious secretion emanating from the patient's abdominal wound. For this reason, the planned attempt at revision of the ileostomy locally was abandoned and a decision was reached to perform an exploratory laparotomy. The scar was incised and the abdomen was carefully entered. The amount of adhesions was extensive and exuberant. It was extremely difficult to mobilize the bowel and separate the bowel from the abdominal wall and itself. Three small perforations were encountered, which were due to apparently ischemic changes in the bowel wall. These were not iatrogenic perforations, one was a perforation at the proximal jejunum within proximity of the indwelling Mendel-Steele drain. The Mendel-Steele drain was removed and the perforation was inspected. The edges appeared viable and the perforation was repaired with 2 layers of 3-0 Monocryl suture. Following adhesions lysis, the bowel was inspected and 2 additional leaks were identified. These were at the site of previous stapled anastomosis of the ileal continuity. These also were closed using Prolene sutures. All perforations appeared to be watertight. There was no evidence of continued leak through the suture lines. At this point, an incision was made around the ileostomy and deepened through subcutaneous fat and inflammatory tissue into the peritoneal cavity. The ileostomy was mobilized in its entirety and it was internalized into the abdominal cavity. There was no enteric contents within the ileostomy itself, although the stoma appeared viable. At this point, numerous abscesses were encountered between loops of small bowel and 1 between a loop of small bowel and the ascending colon. These abscesses were evacuated and cultures were submitted. Following mobilization of the entire small bowel from the ileostomy to the ligament of Treitz, it became evident that the ileostomy was actually obstructed in 3 different places due to kinking of the bowel and severe scarring. The ileostomy itself was excised and submitted as a specimen labeled ischemic bowel and subsequently the ileum was passed through the ileostomy defect in the abdominal wall and a new ileostomy utilizing 3-0 Monocryl suture was fashioned. Due to the thick nature of the ileal wall and the tendency of this patient to form obstructing adhesions, a size 24 Perez catheter was passed into the ileostomy. The balloon was insufflated away from any of the perforations or anastomoses. The entire Perez catheter was internalized into the distal ileum and then sutured to the skin. The ileostomy will be included in the ileostomy appliance and will be allowed to remain indwelling until resumption of ileostomy function. The abdomen was then profusely irrigated. Irrigant was aspirated. Hemostasis was meticulously accomplished and following a report of an accurate needle and sponge count, an insertion of a 10-mm Mendel-Steele drain, which was placed anterior to any intestinal contents and away from any suture lines and was secured with a 2-0 nylon suture to its own exit point. Closure of the abdomen accomplished utilizing #1 double-stranded PDS suture, a few skin lilly, and application of a wound VAC onto the midline incision. The patient remained hemodynamically stable throughout the procedure and left the operating room following an accurate needle and sponge count. Her son and other relatives were thoroughly informed in the waiting room. MD CANDI Langley/JUAN TID: [id number] RECEIPT: [id number]
[2025-03-20] MEDS: SODIUM CHLORIDE 0.9% 500 ML IV ONE (12:57)
[2025-03-20 13:34] LABS: Base Excess -8.2 mmol/L (-2.0-3.0)
[2025-03-20 14:22] LABS: Hematocrit 25.9 % (36.0-46.0); Hemoglobin 8.4 g/dL (12.2-16.2); Mean Corpuscular Hemoglobin 32.4 pg (28.0-32.0); Mean Corpuscular Volume 99.7 fL (80.0-100.0); Nucleated Red Blood Cells % 0.2 %
[2025-03-20 14:35] LABS: Alanine Aminotransferase 34 U/L (7-40); Anion Gap 7 (5-15); BUN/Creatinine Ratio 32.4 (10.0-20.0); Calcium 9.3 mg/dL (8.7-10.4); Magnesium 2.0 mg/dL (1.6-2.6); Potassium 5.0 mmol/L (3.5-5.1); Sodium 138 mmol/L (136-145)
[2025-03-20 14:38] LABS: Albumin 2.0 g/dL (3.2-4.8); Alkaline Phosphatase 146 U/L (46-116); Bilirubin, Total 3.4 mg/dL (0.2-1.0); Blood Urea Nitrogen 36 mg/dL (9-23); Carbon Dioxide 19 mmol/L (20-31); Chloride 112 mmol/L (98-107); Glucose 134 mg/dL (74-106); Total Protein 5.0 g/dL (5.7-8.2)
--- NOTE | 2025-03-20 15:48 | DVHPNRES ---
Progress Note Date Seen: Mar 20, 2025 Resident Creating Document: ASHLEY TREJO RESIDENT Has the PT tested + for MRSA If YES, has PT been informed?: No Medical Necessity Reason Pt with a Central, PICC or Fol: Yes The following are medically ne: PICC Line, Leach Catheter Reason for leach catheter: Strict I&O Subjective Review of Systems This is a 80-year-old lady with past medical history of hypertension, AFib (on Eliquis), diabetes type 2, CKD, came to the hospital due to abdominal pain, and constipation. Admitted on 01/13/2025. Found to have peritonitis due to bowel perforation, and underwent emergent laparotomy with subsequent resection of perforated small bowel and enteroenterostomy. Due to abnormal CARMEN drainage, second exploratory laparotomy performed on 02/04 and found to have perforation near to previous perforation area, underwent resection of area with subsequent anastomosis of proximal jejunal loops. 03/12/2025: Patient seen in the ICU. Continued to be NPO. On 2 L oxygen via nasal cannula. Wound VAC is mild functional, yellowish drainage from incision site, CARMEN drain is functional, draining greenish bile. No signs of fever. No any other night complaints. 03/13/2025: Patient seen and ICU. Patient is to be continued on NPO. Is on room air, wound care to be done, wet-to-dry. Surgery following, low intermittent suction of NG tube, 130 mL of greenish fluid from CARMEN drain, 50 mL from NG tube noted. 03/14/2025: Patient seen in ICU. Patient is to be continued on NPO, is on room air, wound care is wet-to-dry, patient is getting TPN, had 145 removal of greenish drainage from CARMEN drain. Patient has nonblanching redness on sacrum. Today she came complains of 8/10 pain in the abdomen and back. NG tube was clamped. Following surgery. 03/15/25: patient seen in the ICU. She is still NPO. on room air, wound cares were too dry, NG tube removed. Still greenish drainage from CARMEN drain, blackish stool in the colostomy bag. She still complains of pain in the abdomen, back. PT is able to get her to wheelchair. surgery following. 03/16/2025: Patient seen in the ICU. She is still NPO, on TPN, on room air wound care is wet to dry NG tube was removed yesterday. There is blackish stool, blood seen in the colostomy bag today. She still complains of abdominal pain, there was greenish drainage in the wound. Foleys changed, aspirate culture ordered, 03/17/25: Patient seen in the ICU. Patient is still NPO, on TPN, on room air, wound VAC needs component. 80 mL from CARMEN drain. Second opinion by Dr. Rivera to be given. Micafungin added, morphine sulfate changed to 2 mg IV q.4 PRN. 03/18/25: Patient seen in ICU. Patient is still NPO, on TPN, on room air, CARMEN drain in place. Second opinion to be given by Dr. Rivera. 03/19/25: Patient is seen in ICU p.o. continue be NPO on TPN. Plan for laparotomy procedure tomorrow a.m.. No any other complaints. 03/20/2025: Patient seen in the ICU, laparotomy was done today, patient is on 3 L nasal oxygen. Patient is drowsy, did not complain of any pain. Patient is on Levophed,. NG Tube in place, CARMEN drains in place. Objective vital signs Vital Sign Date Time Temp Pulse Resp B/P (MAP) Pulse Ox O2 Delivery O2 Flow Rate FiO2 03/20/25 13:45 122 25 87/33 (51) 100 03/20/25 13:00 97.0 97.0 03/20/25 10:47 Nasal Cannula 4.0 03/20/25 07:10 21 Total Intake and Output 03/19/25 03/19/25 03/20/25 15:00 23:00 07:00 Intake Total 1012 ml 605 ml 601 ml Output Total 890 ml 1030 ml Balance 1012 ml -285 ml -429 ml medications Current Medications Medications Dose Ordered Sig/Isaura Route Start Time Stop Time Status Last Admin Dose Admin Cefazolin Sodium 50 ml @ 100 mls/hr Q8HR IV 01/13/25 14:00 UNV Vasopressin 20 units/Sodium Chloride 100 ml @ 9 mls/hr Q11H7M IV 01/13/25 18:45 UNV Potassium Chloride 100 ml @ 50 mls/hr Q2H IV 01/16/25 12:45 01/16/25 18:44 UNV Vancomycin HCl 100 ml @ 100 mls/hr DAILY@1200 IV 01/20/25 12:00 UNV Amino Acids 0 ml @ 0 mls/hr PER PHARMACY IV 02/13/25 10:45 Ondansetron HCl 4 mg Q4HPRN PRN IV 02/21/25 09:30 03/12/25 17:08 4 MG Multi-Ingredient Ointment 1 applic DAILY TOP 02/23/25 10:00 03/19/25 07:34 1 APPLIC Norepinephrine Bitartrate 250 ml @ 3.75 mls/hr Q24H IV 02/25/25 11:45 03/20/25 12:33 3.75 MLS/HR Diagnostic Test (Pha) 1 strip Q4HR 02/26/25 16:00 Cancel Dextrose 50 ml UD PRN IV 02/26/25 14:15 Diagnostic Test (Pha) 1 strip IQ4HR 02/26/25 16:00 UNV Dextrose 50 ml UD PRN IV 02/26/25 16:00 UNV Insulin Human Regular Q6HR SC 03/02/25 12:00 03/20/25 05:51 3 UNITS Pantoprazole Sodium 40 mg BID IV 03/08/25 22:00 03/19/25 21:10 40 MG Levothyroxine Sodium 50 mcg DAILY IV 03/09/25 10:00 03/19/25 07:33 50 MCG Lidocaine 1 patch DAILY TOP 03/12/25 10:00 03/19/25 07:34 1 PATCH Iron Sucrose 110 ml @ 110 mls/hr DAILY@1200 IV 03/17/25 12:00 03/21/25 12:59 03/20/25 13:02 110 MLS/HR Micafungin Sodium 100 mg/Sodium Chloride 100 ml @ 100 mls/hr DAILY IV 03/18/25 10:00 03/19/25 07:40 100 MLS/HR Acetaminophen 650 mg Q6HP PRN [place] 03/18/25 10:00 Meropenem 50 ml @ 17 mls/hr Q12HR IV 03/18/25 22:00 03/19/25 21:10 17 MLS/HR Hydromorphone HCl 1 mg Q4HPRN PRN IV 03/18/25 18:30 03/20/25 05:27 1 MG Morphine Sulfate 4 mg Q4HPRN PRN IV 03/18/25 18:30 03/18/25 22:26 4 MG Fat Emulsion Intravenous 150 ml/Sodium Chloride 10 meq/ Sodium Acetate 50 meq/Potassium Acetate 40 meq/ Potassium Phosphate 22 meq/ Magnesium Sulfate 12 meq/ Multivitamins 10 ml/Insulin Human Regular 8 units/ Amino Acids/ Dextrose/Purified Water 1,765.58 ml @ 73 mls/hr [id number] IV 03/19/25 22:00 03/20/25 21:59 03/19/25 21:27 73 MLS/HR Fat Emulsion Intravenous 150 ml/Sodium Chloride 20 meq/ Sodium Acetate 40 meq/Potassium Acetate 40 meq/ Potassium Phosphate 22 meq/ Magnesium Sulfate 12 meq/ Multivitamins 10 ml/Insulin Human Regular 8 units/ Amino Acids/ Dextrose/Purified Water 1,663.08 ml @ 69 mls/hr Q24H7M IV 03/20/25 22:00 03/21/25 21:59 Examination Pt is lying on bed General Appearance: Alert and Oriented x2 HEENT: Atraumatic, Mucous membranes moist/pink Respiratory: Clear to auscultation, Normal air movement, No added sounds Cardiovascular: Regular rate, Normal S1, Normal S2, No murmurs Abdominal: Active bowel sounds, Soft, no distention, no tenderness, colostomy bag in place and 1 CARMEN drain with greenish fluid Extremities: No pitting edema Skin: No Significant rash, except past surgical scars Neuro: more alert and oriented Nurse was there as geochemistry teacher during examination laboratory and microbiology Laboratory Tests 03/20/25 14:10 Test 03/20/25 14:10 Range/Units Serum Glucose 134 H 74-106 mg/dL Microbiology Date/Time Source Procedure Growth Status 03/16/25 18:00 Aspirate Gram Stain - Final Complete 03/16/25 18:00 Body Fluid Culture - Final Escherichia coli Yeast, not Zoe albicans Complete 03/16/25 15:48 Urine - Leach [place] Urine Culture - Final Yeast, not Zoe albicans Complete 03/07/25 08:32 Blood Blood Culture - Final Staphylococcus epidermidis Complete 02/25/25 11:48 Sputum Gram Stain - Final Complete 02/25/25 11:48 Sputum Respiratory Culture - Final Complete 01/13/25 17:10 Nose MRSA Screen - Final Complete Problem List/Assessment/Plan Problem List/Assessment/Plan Neurology # Chronic ischemic changes # Chronic Cortical atrophy - Head CT (01/29): Chronic microangiopathy and cortical atrophy. - reintubated on 02/25/25 during surgery # Extubated on 02/28 Cardiovascular # Septic shock secondary to hollow viscus perforation. # Paroxysmal atrial fibrillation with a second-degree hypercoagulable state currently NSR # Chronic diastolic heart failure with preserved EF 65% # Hypertension. - Echocardiogram (01/15): Normal LV EF (65%), mild LVH, mild LV diastolic dysfunction. - Chest X-ray: Bibasilar atelectasis. - ZEFERINO?DS?-VASc score >5 - cardiology on board - initially on Lovenox therapeutic but Dc'd due to low hemoglobin - Labetalol PRN Pulmonary # Acute hypoxic respiratory failure secondary to bilateral pleural effusion/pneumonia s/p re-intubation, status post extubation 02/28 - monitor with daily CXR - Sputum culture 01/29 Presumptive Zoe albicans and : negative - Reintubated on 02/25. - Chest Physiotherapy ongoing. - extubated today Gastrointestinal / Liver # Acute Bacterial Peritonitis due to small bowel perforation vs Perisplenic abscess. s/p multiple laparotomies # Transaminitis secondary to shock. # Anion gap metabolic acidosis due to bowel ischemia and lactic acidosis - CT abdomen/pelvis (02/16): Pneumoperitoneum, extraluminal contrast, perisplenic/subdiaphragmatic collection (7.1 1.1 cm). - Small bowel series (02/11): Normal. 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 Procedures: - First laparotomy (01/13): Resection of perforated small bowel, enteroenterostomy. - Second laparotomy (02/04): Resection near previous perforation, jejunal anastomosis. - Third laparotomy (02/25): Resection of distal ileum, end-to-end anastomosis, ileostomy. - fourth laparotomy(03/20): Cultures: - Peritoneal fluid (01/13): E. coli, Klebsiella pneumoniae (sensitive to meropenem). - Peritoneal fluid (02/17): E. coli, Stenotrophomonas maltophilia. - Aspirate Showed(03/02): VRE - IR-guided pigtail drain placed; drained 50 cc purulent fluid. - CARMEN drains placed in 4 quadrants initially and now patient has only 1 CARMEN drain - Initially NPO, TPN initiated. - NG tube placed. - IV antimicrobials meropenem and micafungin - Initially patient is on Levofloxacin, Flagyl (02/03); Vancomycin and Meropenem (); Meropenem (); Vancomycin () then eventually switched to above antimicrobials - Started Daptomycin (03/08), Bactrim stopped (03/08), stopped daptomycin - added micafungin - (03/17) - 2nd opinion to be given by Dr. Rivera -Gastrografin scan(03/05) showed Contrast extravasation is seen in the proximal small bowel, possibly left sided jejunum near the surgical drain can be seen with a leak. -patient kept NPO - NG tube removed (03/15) Genitourinary / Kidney # ISRRAEL likely secondary to shock/volume depletion- resolved - Nephrology consulted for ISRRAEL. Endocrine # Hypothyroidism: TSH 42.29, low T4 # Type 2 diabetes mellitus: HbA1c 8.2%.- # Episodes of hypoglycemia. # Hypothyroidism - continuously monitoring blood glucose and on ISS - Started on Levothyroxine 50 daily Metabolic Hypokalemia. Hyperkalemia. Hyponatremia: D5W at 75 mL/hr per nephrology. Hypophosphatemia: given IV phosphate Nutrition: Severe protein malnutrition. Hematology # Acute on chronic anemia (hemodilution/post-surgical). # Severe thrombocytopenia, HIT # Acute DVT of right upper extremity. - Ultrasound (01/17): Partial thrombus in right internal jugular and cephalic veins. - hemoglobin today 6.9, transfused 1 more unit of PRBC 02/28 - Transfused total 8 units PRBC, 2 platelet units. - continuously monitor H&H - hold blood thinners Musculoskeletal / Skin # Rib fracture due to fall. Nutrition: TPN initiated. Bowel Regimen: As needed. GI Prophylaxis: Pantoprazole bid DVT Prophylaxis: Lovenox (held/ Dc'd due to low hemoglobin). Lines / Tubes / Devices Airway: Intubated on 01/14, extubated on 02/07, reintubated on 02/25 extubated 02/28 Vascular Access: PICC line placed in right upper thigh on 01/26. Drips: Dc'd pressors and sedatives. Urinary: Leach catheter placed on 01/14, exchanged on 02/14. Exchanged on 03/17. CARMEN drains in 1 quadrant. Goals of care addressed with patient's family members for more than 29 minutes: Full code status Care plan updated to the patient family Chris (son) on bedside and addressed all concerns Critical care time spent more than 81 minutes excluding procedures and including discussion with the family Case discussed with Dr. Carvalho and RN Plan discussed with: Son Dietary Evaluation Review Comments: Nutrition Recommendation: 1) TPN to meet at least 75% estimated needs within 7 days 2) Monitor NPO status, lab values, wt trend, I/O Expected Outcomes/Goals: To meet >75% estimated needs Lab values to improve Fu 2-3 days Is there a minimum of two crit: Yes CC Plasma Assessment Blood Product Administration S: [id number] ASHLEY TREJO RESIDENT Mar 20, 2025 15:48
[2025-03-20] MEDS: SODIUM CHLORIDE 0.9% 250 ML IV ONE (17:45)
[2025-03-20 18:52] LABS: Hemoglobin 7.7 g/dL (12.2-16.2)
[2025-03-20 18:54] LABS: Hematocrit 24.1 % (36.0-46.0)
[2025-03-20] MEDS: TPN PER PHARMACY IV NR (21:01)
--- NOTE | 2025-03-20 21:12 | DVHPN2 ---
Consult Progress Note Date Seen: Mar 20, 2025 Objective vital signs Vital Sign Date Time Temp Pulse Resp B/P (MAP) Pulse Ox O2 Delivery O2 Flow Rate FiO2 03/20/25 18:46 74/46 03/20/25 18:30 141 31 98 03/20/25 16:00 96.8 96.8 03/20/25 10:47 Nasal Cannula 4.0 03/20/25 07:10 21 Total Intake and Output 03/19/25 03/19/25 03/20/25 15:00 23:00 07:00 Intake Total 1012 ml 605 ml 601 ml Output Total 890 ml 1030 ml Balance 1012 ml -285 ml -429 ml medications Current Medications Medications Dose Ordered Sig/Isaura Route Start Time Stop Time Status Last Admin Dose Admin Cefazolin Sodium 50 ml @ 100 mls/hr Q8HR IV 01/13/25 14:00 UNV Vasopressin 20 units/Sodium Chloride 100 ml @ 9 mls/hr Q11H7M IV 01/13/25 18:45 UNV Potassium Chloride 100 ml @ 50 mls/hr Q2H IV 01/16/25 12:45 01/16/25 18:44 UNV Vancomycin HCl 100 ml @ 100 mls/hr DAILY@1200 IV 01/20/25 12:00 UNV Amino Acids 0 ml @ 0 mls/hr PER PHARMACY IV 02/13/25 10:45 Ondansetron HCl 4 mg Q4HPRN PRN IV 02/21/25 09:30 03/12/25 17:08 4 MG Multi-Ingredient Ointment 1 applic DAILY TOP 02/23/25 10:00 03/19/25 07:34 1 APPLIC Norepinephrine Bitartrate 250 ml @ 3.75 mls/hr Q24H IV 02/25/25 11:45 03/20/25 12:33 3.75 MLS/HR Diagnostic Test (Pha) 1 strip Q4HR 02/26/25 16:00 Cancel Dextrose 50 ml UD PRN IV 02/26/25 14:15 Diagnostic Test (Pha) 1 strip IQ4HR 02/26/25 16:00 UNV Dextrose 50 ml UD PRN IV 02/26/25 16:00 UNV Insulin Human Regular Q6HR SC 03/02/25 12:00 03/20/25 16:50 3 UNITS Pantoprazole Sodium 40 mg BID IV 03/08/25 22:00 03/19/25 21:10 40 MG Levothyroxine Sodium 50 mcg DAILY IV 03/09/25 10:00 03/19/25 07:33 50 MCG Lidocaine 1 patch DAILY TOP 03/12/25 10:00 03/19/25 07:34 1 PATCH Iron Sucrose 110 ml @ 110 mls/hr DAILY@1200 IV 03/17/25 12:00 03/21/25 12:59 03/20/25 13:02 110 MLS/HR Micafungin Sodium 100 mg/Sodium Chloride 100 ml @ 100 mls/hr DAILY IV 03/18/25 10:00 03/19/25 07:40 100 MLS/HR Acetaminophen 650 mg Q6HP PRN [place] 03/18/25 10:00 Hydromorphone HCl 1 mg Q4HPRN PRN IV 03/18/25 18:30 03/20/25 16:06 1 MG Morphine Sulfate 4 mg Q4HPRN PRN IV 03/18/25 18:30 03/18/25 22:26 4 MG Fat Emulsion Intravenous 150 ml/Sodium Chloride 10 meq/ Sodium Acetate 50 meq/Potassium Acetate 40 meq/ Potassium Phosphate 22 meq/ Magnesium Sulfate 12 meq/ Multivitamins 10 ml/Insulin Human Regular 8 units/ Amino Acids/ Dextrose/Purified Water 1,765.58 ml @ 73 mls/hr [id number] IV 03/19/25 22:00 03/20/25 21:59 03/19/25 21:27 73 MLS/HR Fat Emulsion Intravenous 150 ml/Sodium Chloride 20 meq/ Sodium Acetate 40 meq/Potassium Acetate 40 meq/ Potassium Phosphate 22 meq/ Magnesium Sulfate 12 meq/ Multivitamins 10 ml/Insulin Human Regular 8 units/ Amino Acids/ Dextrose/Purified Water 1,663.08 ml @ 69 mls/hr Q24H7M IV 03/20/25 22:00 03/21/25 21:59 Phenylephrine HCl 250 ml @ 30 mls/hr Q8H20M IV 03/20/25 21:00 laboratory and microbiology Laboratory Tests 03/20/25 18:26 03/20/25 14:10 Test 03/20/25 14:10 Range/Units Serum Glucose 134 H 74-106 mg/dL Problem List/Assessment/Plan Problem List/Assessment/Plan ASSESSMENT AND PLAN: ID Problem List: -Perforated small bowel with persistent leak; intra-abdominal sepsis; status post multiple exploratory laparotomies with adhesiolysis and enteroenterostomies; CARMEN drains in place -Septic shock; acute hypoxic respiratory failure -Acute kidney injury (ISRRAEL) with acute tubular necrosis (ATN) improved -Transaminitis likely ischemic hepatitis improving -Thrombocytopenia (worsened ~01/19 while on vancomycin/fluconazole) -Diabetes mellitus -On apixaban (Eliquis) for last 2 weeks indication unclear -Past surgical history: section; hernia repair Assessment This is a 10 y.o. female with diabetes and prior and hernia repair, who presented with 4 days of sharp lower abdominal pain. Initial ED evaluation notable for CT A/P demonstrating free intraperitoneal air and small bowel inflammatory changes concerning for perforated viscus with mild ascites and mesenteric stranding. She underwent an exploratory laparotomy on 01/13 with lysis of adhesions, small bowel enteroenterostomy, and placement of two Mendel- Steele drains; peritoneal cultures at that time grew Escherichia coli and Klebsiella pneumoniae (both ceftriaxone susceptible). Postoperatively she required norepinephrine (Levophed) and broad-spectrum antibiotics. Course complicated by recurrent sepsis and suspected enterocutaneous/peritoneal contamination, requiring re-exploration on 02/03 with evacuation of copious intra-abdominal infection/abscesses and revision of anastomosis; intraoperative cultures reportedly not obtained. A drain sample dated 01/28 grew Stenotrophomonas (TMP-SMX susceptible). Ongoing respiratory issues prompted empiric vancomycin, later discontinued when sputum grew only Nancy albicans. A third operation on 02/25 for persistent feculent leakage and peritonitis showed a distal ileal perforation proximal to adhesional obstruction; this was resected with primary anastomosis, and further adhesiolysis performed. Upper GI series on 03/04 demonstrates contrast extravasation from proximal small bowel (likely left jejunum) near a surgical drain, consistent with a persistent leak that appears to be adequately drained clinically. She has been afebrile since 03/03, is extubated to 2 L NC, hemodynamically supported on low-dose norepinephrine, and clinically stable abdominally (nontender). LFTs that had peaked during ischemic episodes are improving. Renal function has improved from admission. Cultures/culture interpretation: Earlier peritoneal cultures with E. coli and Klebsiella; drain fluid with Stenotrophomonas (01/28) and subsequent peritoneal/aspirate samples showing E. coli and vancomycin-resistant Enterococcus (VRE) on 03/02; one of four blood culture bottles (03/07) positive for Staphylococcus epidermidis, felt to be contaminant. Given the persistent bowel leak with external drainage and the timing/source of cultures, current drain cultures are likely colonization and may not represent true invasive pathogens. Antimicrobial course (per transcript): initial piperacillin-tazobactam (Zosyn) + vancomycin through 01/19; vancomycin stopped for suspected contribution to thrombocytopenia; courses including meropenem and micafungin through 01/31; then levofloxacin + metronidazole + micafungin through 02/03; meropenem continued thereafter with vancomycin re-trial for presumed pneumonia (later stopped by 02/21 after Nancy-only sputum); micafungin added/continued; trimethoprim- sulfamethoxazole (Bactrim) started 02/21 for Stenotrophomonas coverage; transcript also notes meropenem and rifampin continued until today. 03/16: sp NGT removal, stoma and drain with output. off levophed 03/18: new levophed needs, intermittently febrile, drain culture w e.coli and nancy: meropenem and micafungin restarted 03/20: sp * Exploratory laparotomy. * Very extensive lysis of adhesions. * Repair of 3 ischemic perforations of small bowel. * Evacuation of multiple interloop abscesses. * Revision of ileostomy. Plan: - fungal infection: - unclear if systemic non-candidemia yeast growth. - likely colonization and less likely systemic infection, but will check blood cultures - continue micafungin for now, -Intra-abdominal sepsis with persistent small bowel leak: -Source control: continue to ensure CARMEN drains are functioning; avoid routine re- culturing from drains as results likely represent colonization and may mislead management. -sp 03/20 exlap, repair of bowel leak -will fu on pending operative cultures -Antibiotics: -De-escalate broad coverage toward enteric pathogens (E. coli/Klebsiella) and away from agents targeting colonizers. -continue Ceftriaxone -Antifungal: continue micafungin for now, however suspect this two may be a colonizer -Duration: continue until leak is resolved or clearly contained with clinical improvement. -Transition to oral therapy when patient can tolerate and when clinically appropriate. -Respiratory: extubated to 2 L NC; supportive care; chest radiograph with persistent interstitial opacities, left basilar consolidation, small pleural effusions monitor clinically. -Renal: ISRRAEL/ATN improved (Cr now ~0.99); continue renal dosing of antimicrobials as indicated; monitor BMP. -Hepatic: transaminases improving from prior ischemic hepatitis; trend LFTs. -Hematology: platelet count currently ~118 K; monitor CBC. -Anticoagulation: on apixaban (Eliquis) for unclear indication per history; reconcile indication and risk/benefit with primary/surgical teams in context of recent surgeries/leak. -Nutrition/NG: continue NG suction per surgery; nutrition per surgical/ICU teams. -Lines/Drains: maintain CARMEN drains; monitor output and character; avoid routine drain cultures. -Follow-up: ID will continue to follow clinically; adjust therapy as new data emerge. Authorized and Performed by: sheron pedraza Total critical care time: Approximately 56 minutes Due to a high probability of clinically significant, life threatening deterioration, the patient required my highest level of preparedness to intervene emergently and I personally spent this critical care time directly and personally managing the patient. This critical care time included obtaining a history; examining the patient; pulse oximetry; ordering and review of studies; arranging urgent treatment with development of a management plan; evaluation of patient's response to treatment; frequent reassessment; and, discussions with other providers. This critical care time was performed to assess and manage the high probability of imminent, life-threatening deterioration that could result in multi-organ failure. It was exclusive of separately billable procedures and treating other patients and teaching time. \ Physical Exam: General: NAD Neck: Supple. No masses. HEENT: PERRL. Normal lids and conjunctiva. Moist mucous membranes. Oropharynx without lesions, exudates or excessive erythema. Normal appearance of the external aspects of the nose and ears. Heart: Regular rhythm, normal rate. No murmur. No lower extremity edema. Lungs: Normal respiratory effort. Clear to auscultation bilaterally. No wheezes. No crackles. Abdomen: Soft. Non-tender. Non-distended. No masses or abdominal hernia. drain and stoma functional . Msk: No digital cyanosis. Normal strength and tone in all 4 limbs Skin: Warm and dry, no rashes. Neuro: Alert. No facial droop or slurred speech. Extra-ocular movements intact. Sensation intact to soft touch in all 4 limbs. Psych: Appropriate mood. Full affect. Oriented to person, place, time, and situation. Plan discussed with: Patient Dietary Evaluation Review Comments: Nutrition Recommendation: 1) TPN to meet at least 75% estimated needs within 7 days 2) Monitor NPO status, lab values, wt trend, I/O Expected Outcomes/Goals: To meet >75% estimated needs Lab values to improve Fu 2-3 days Is there a minimum of two crit: Yes CC Plasma Assessment Blood Product Administration S: [id number] SHERON PEDRAZA MD Mar 20, 2025 21:12
[2025-03-20] MEDS: PHENYLEPHRINE IV 250 ML IV SCH (21:47)
[2025-03-20 22:58] LABS: Hemoglobin 7.1 g/dL (12.2-16.2)
--- NOTE | 2025-03-20 22:59 | DVH ---
CHEST RADIOGRAPH Indication: sob Technique: Single frontal view of the chest was obtained COMPARISON: XY CHEST XRAY 1 VIEW on DOS: 03/09/25, XY CHEST XRAY 1 VIEW on DOS: 03/04/25, XY CHEST XRAY 1 VIEW on DOS: 03/02/25, XY CHEST PORTABLE on DOS: 02/28/25, XY CHEST XRAY 1 VIEW on DOS: 02/27/25 FINDINGS: Right-sided PICC line with tip near the cavoatrial junction. NG tube entering the stomach. Trace left-sided pleural effusion with mild left basilar atelectasis /consolidation. Cardiac silhouette is mildly enlarged. Mild prominence of the pulmonary vasculature. IMPRESSION: Cardiomegaly with pulmonary venous congestion. Trace left-sided pleural effusion with mild left basilar atelectasis /consolidation.
[2025-03-20 23:02] LABS: Hematocrit 22.0 % (36.0-46.0)
--- NOTE | 2025-03-20 23:08 | DVHPN2 ---
Subjective DOS: 03/20/2025 Patient seen and examined at bedside. Currently on supplemental oxygen Overnight events reviewed. HPI: A 80-year-old woman with past medical history of diabetes mellitus who presented to the ED on 01/13/25 with c/o abdominal pain x4 days. Patient reported 8 - 9/10 pain that was sharp and constant, throughout her abdomen. She did note pain medications make it better. Patient admitted to being noncompliant with her Eliquis for the past 2 weeks. Patient denied any fever, chills, chest pain, shortness of breath, or other acute complaints. She reported falling on her left side on January 06, 2025. Patient does not use home oxygen. Patient was admitted for further care, subsequently found to have perforated bowel and underwent exploratory laparotomy with repair of bowel perforation. Pulmonary consultation was requested for evaluation and management due to acute hypoxic respiratory failure requiring mechanical ventilator. Past Medical History: Diabetes mellitus Past Surgical History: , Hernia Repair Medications: Reviewed. Allergies: No known drug allergies. Family History: Arthritis. No family history of premature CAD. No family history of lung disorders. Social History: Nonsmoker. No alcohol or illicit drug use. Reviewed: Care Plan, H&P Changes from previous H/P or p: No Changes Gastrointestinal: Abdominal Pain Objective Vitals Vital Signs Date Time Temp Pulse Resp B/P (MAP) Pulse Ox O2 Delivery O2 Flow Rate FiO2 03/20/25 21:47 125/46 03/20/25 20:07 150 45 03/20/25 19:30 Room Air* 4 N/A Nasal Cannula* 03/20/25 18:30 98 03/20/25 16:00 96.8 96.8 Intake/Output Intake and Output 03/20/25 07:00 Intake Total 2218 ml Output Total 1920 ml Balance 298 ml Intake Oral 0 ml IV Total 2218 ml Output Urine Total 1875 ml Stool Total 20 ml Drainage Total 25 ml General Appearance: Alert, Oriented X3, No acute distress HEENT: Atraumatic, Mucous membr. moist/pink Neck: Supple Lungs: Clear to auscultation, Other (Decreased air entry bilaterally) Cardiovascular: Regular rate, Normal S1, Normal S2, No murmurs, Gallops, Rubs Abdomen: Normal bowel sounds, Soft, No tenderness Extremities: No clubbing, No cyanosis, No edema Neuro: Strength at 5/5 X4 ext, Sensation intact, Cranial nerves 3-12 NL Psych/Mental Status: Mental status NL, Mood NL Medications Current Medications Medications Dose Ordered Sig/Isaura Route Start Time Stop Time Status Last Admin Dose Admin Cefazolin Sodium 50 ml @ 100 mls/hr Q8HR IV 01/13/25 14:00 UNV Vasopressin 20 units/Sodium Chloride 100 ml @ 9 mls/hr Q11H7M IV 01/13/25 18:45 UNV Potassium Chloride 100 ml @ 50 mls/hr Q2H IV 01/16/25 12:45 01/16/25 18:44 UNV Vancomycin HCl 100 ml @ 100 mls/hr DAILY@1200 IV 01/20/25 12:00 UNV Amino Acids 0 ml @ 0 mls/hr PER PHARMACY IV 02/13/25 10:45 Ondansetron HCl 4 mg Q4HPRN PRN IV 02/21/25 09:30 03/12/25 17:08 4 MG Multi-Ingredient Ointment 1 applic DAILY TOP 02/23/25 10:00 03/19/25 07:34 1 APPLIC Norepinephrine Bitartrate 250 ml @ 3.75 mls/hr Q24H IV 02/25/25 11:45 03/20/25 12:33 3.75 MLS/HR Diagnostic Test (Pha) 1 strip Q4HR 02/26/25 16:00 Cancel Dextrose 50 ml UD PRN IV 02/26/25 14:15 Diagnostic Test (Pha) 1 strip IQ4HR 02/26/25 16:00 UNV Dextrose 50 ml UD PRN IV 02/26/25 16:00 UNV Insulin Human Regular Q6HR SC 03/02/25 12:00 03/20/25 16:50 3 UNITS Pantoprazole Sodium 40 mg BID IV 03/08/25 22:00 03/20/25 20:15 40 MG Levothyroxine Sodium 50 mcg DAILY IV 03/09/25 10:00 03/19/25 07:33 50 MCG Lidocaine 1 patch DAILY TOP 03/12/25 10:00 03/19/25 07:34 1 PATCH Iron Sucrose 110 ml @ 110 mls/hr DAILY@1200 IV 03/17/25 12:00 03/21/25 12:59 03/20/25 13:02 110 MLS/HR Micafungin Sodium 100 mg/Sodium Chloride 100 ml @ 100 mls/hr DAILY IV 03/18/25 10:00 03/19/25 07:40 100 MLS/HR Acetaminophen 650 mg Q6HP PRN MS 03/18/25 10:00 Hydromorphone HCl 1 mg Q4HPRN PRN IV 03/18/25 18:30 03/20/25 16:06 1 MG Morphine Sulfate 4 mg Q4HPRN PRN IV 03/18/25 18:30 03/20/25 20:07 4 MG Fat Emulsion Intravenous 150 ml/Sodium Chloride 20 meq/ Sodium Acetate 40 meq/Potassium Acetate 40 meq/ Potassium Phosphate 22 meq/ Magnesium Sulfate 12 meq/ Multivitamins 10 ml/Insulin Human Regular 8 units/ Amino Acids/ Dextrose/Purified Water 1,663.08 ml @ 69 mls/hr Q24H7M IV 03/20/25 22:00 03/21/25 21:59 03/20/25 21:01 69 MLS/HR Phenylephrine HCl 250 ml @ 30 mls/hr Q8H20M IV 03/20/25 21:00 03/20/25 21:47 30 MLS/HR Ceftriaxone Sodium/Dextrose 50 ml @ 50 mls/hr DAILY IV 03/21/25 10:00 Laboratory Results Laboratory Tests 03/20/25 14:10 Chemistry Test 03/20/25 03:00 03/20/25 14:10 Albumin 2.2 g/dL (3.2-4.8) L 2.0 g/dL (3.2-4.8) L Calcium Level 9.5 mg/dL (8.7-10.4) 9.3 mg/dL (8.7-10.4) Magnesium Level 2.3 mg/dL (1.6-2.6) 2.0 mg/dL (1.6-2.6) Phosphorus Level 3.2 mg/dL (2.4-5.1) 4.4 mg/dL (2.4-5.1) Total Protein 5.3 g/dL (5.7-8.2) L 5.0 g/dL (5.7-8.2) L Coagulation Test 03/20/25 03:00 Prothrombin Time 12.9 sec (9.3-11.8) H Prothrombin Time INR 1.24 (0.9-1.15) H Activated Partial Thromboplast Time 30.4 SEC (24.5-34.5) LFT Test 03/20/25 03:00 03/20/25 14:10 Alanine Aminotransferase (ALT) 31 U/L (7-40) 34 U/L (7-40) Alkaline Phosphatase 135 U/L (46-116) H 146 U/L (46-116) H Aspartate Amino Transferase (AST) 50 U/L (13-40) H 76 U/L (13-40) H Total Bilirubin 3.0 mg/dL (0.2-1.0) H 3.4 mg/dL (0.2-1.0) H Urinalysis Test 01/14/25 02:00 03/16/25 15:48 Urine Amorphous Crystals Few /hpf (None Seen) Urine Creatinine 34.09 mg/dL (30.0-125.0) Urine Protein/Creatinine Ratio 3.85 Urine Sodium 76 mmol/L (40-220) Urine Total Protein 131.1 mg/dL (1-14) H Urine Color Yellow (Yellow) Urine Clarity Clear (Clear) Urine pH 6.5 (5.0-9.0) Urine Specific Robert [place] 1.011 (1.001-1.035) Urine Protein Trace (Negative) H Urine Ketones Negative (Negative) Urine Blood Trace /uL (Negative) H Urine Nitrite Negative (Negative) Urine Bilirubin Negative (Negative) Urine Urobilinogen Normal mg/dL (Negative) Urine Leukocyte Esterase 1+ /uL (Negative) Urine RBC 3 /hpf (0 - 4) Urine Microscopic WBC 11 /HPF (0-5) H Urine Squamous Epithelial Cells Few /hpf (<5) Urine Bacteria None seen /hpf (None Seen) Urine Yeast (Budding) Few /hpf (None Seen) Urine Glucose 3+ mg/dL (Normal) H Blood Gas Results Test 03/20/25 13:29 03/20/25 21:55 Arterial Blood pH 7.321 (7.350-7.450) FiO2 % 36.0 36.0 Microbiology Microbiology Date/Time Source Procedure Growth Status 03/16/25 18:00 Aspirate Gram Stain - Final Complete 03/16/25 18:00 Body Fluid Culture - Final Escherichia coli Yeast, not Zoe albicans Complete 03/16/25 15:48 Urine - [place] Urine Culture - Final Yeast, not Zoe albicans Complete 03/07/25 08:32 Blood Blood Culture - Final Staphylococcus epidermidis Complete 02/25/25 11:48 Sputum Gram Stain - Final Complete 02/25/25 11:48 Sputum Respiratory Culture - Final Complete 01/13/25 17:10 Nose MRSA Screen - Final Complete Assessment/Plan Assessment/Plan Impression: Acute hypoxic respiratory failure Atelectasis Pleural effusion Acute metabolic encephalopathy secondary to acute hypoxic respiratory failure Pulmonary edema due to chronic heart failure with preserved ejection fraction Perforation of small bowel status post exploratory laparotomy Acute on chronic kidney disease secondary to shock, vasomotor nephropathy Anemia Sepsis with septic shock secondary to perforation of small bowel Events: Currently on supplemental oxygen On 4 LPM NC Taper O2 as tolerated No distress Patient is s/p exploratory laparotomy procedure Surgery recommendations appreciated. Check labs STAT - CBC, BMP, mag, phos. Currently on pressors for hemodynamic support On Levophed 16 mcg/min Titrate to keep MAP above 65 mmHg/SBP above 90 mmHg. Pt was given IV fluid bolus with NS 500 mL. Monitor blood pressure closely Pain control Avoid oversedation Dilaudid 1 mg IVP q.4 hours PRN severe pain. Surgery recommendations appreciated. NG tube to LIS Continue to monitor drainage from NG tube, CARMEN drain. Continue physical therapy. HOB elevation Aspiration precautions Continue antibiotics/antifungal coverage ID recommendations appreciated. Protonix for GI ppx TPN for nutritional support Labs reviewed. Hemoglobin stable at 7.7 g/dL Continue to monitor hemoglobin Transfuse if less than 7.0 g/dL. Iron supplementation Physical Therapy Gastrografin study (03/05) positive for leak. Study demonstrated contrast extravasation is seen in the proximal small bowel, possibly left sided jejunum near the surgical drain can be seen with a leak. GI/Surgery recs appreciated. Labs and imaging reviewed. Rest of plan as noted below. Plan: S/p extubation on 03/02/25 Supplemental oxygen Titrate to keep O2 sats above 92%. Continue antibiotics. F/u cultures. Continue antifungal On pressors for hemodynamic support Titrate to keep MAP above 65 mmHg/SBP above 90 mmHg. TPN for nutritional support Monitor renal function due to acute kidney injury. Monitor electrolytes. Supplement as necessary. Monitor ins and outs Monitor hemoglobin Transfuse if less than 7.0 g/dL. Follow up GI recommendations Follow up Surgery recommendations Wound care Nutritional support. Accu-Cheks, ISS. GI/DVT prophylaxis. Prognosis: Poor given multiple comorbidities. Condition: Critical Rest of plan per hospitalist and other consultants. A total of 35 minutes of critical care time was spent reviewing the patient record, examining the patient, making a diagnostic and therapeutic plan, discussing this plan with the medical personnel, following up on diagnostic studies and following the patient for clinical stability excluding any and all procedures. At least 50% of this time was spent in direct, [id number] contact. Thank you for allowing me to participate in this patient's care. Further recommendations will depend on patient's clinical course. Please do not hesitate to contact me if you have any questions or concerns. This medical document was created using an electronic medical record system with [employer] dictation system. Although this document has been carefully reviewed, there may still be some phonetic and typographical errors. These areas are purely typographical due to imperfections of the software programs, and do not reflect any compromise in the patient's medical care. Plan discussed with: Other (MASHA Deras) My Orders Orders - MORA LANGSTON MD Procedure Category Date Status Time Abg W/ Co-Ox RT 03/20/25 Logged 13:34 Venous Blood Gas RT 03/20/25 Logged 22:00 Visit Coding Pulmonary Billing Provider: MORA LANGSTON MD Date of Service if different f: Mar 20, 2025 Common Visit Codes: [id number] INP/OBS CARE(HIGH), [id number] CARE 30-74 MIN MORA LANGSTON MD Mar 20, 2025 23:08
[2025-03-20 23:15] LABS: Lactic Acid w/Reflex 12.1 mmol/L (0.4-2.0)
[2025-03-20] MEDS: SODIUM CHLORIDE 0.9% 1,000 ML IV ONE (23:45)
[2025-03-21] VITALS (102 sets, daily range): BP systolic 86–157; BP diastolic 32–74; PULSE 100–148; RESP 14–33; TEMP 97.7–100.1; O2SAT 93–100
[2025-03-21] MEDS: VASOPRESSIN 20 UNIT/ML ONE (00:36)
[2025-03-21] MEDS: SODIUM BICARB 8.4% 50Meq/50ml SYR Vial IV ONE (00:46)
[2025-03-21] MEDS: VASOPRESSIN 20 UNITS in SODIUM CHL 0.9% 99 ML IV SCH (01:03)
[2025-03-21 03:16] LABS: Lactic Acid w/Reflex 8.1 mmol/L (0.4-2.0)
--- NOTE | 2025-03-21 05:11 | DVH ---
CHEST RADIOGRAPH Indication: Reinserted NG tube Technique: Single frontal view of the chest was obtained COMPARISON: XY CHEST XRAY 1 VIEW on DOS: 03/20/25, XY CHEST XRAY 1 VIEW on DOS: 03/09/25, XY CHEST XRAY 1 VIEW on DOS: 03/04/25, XY CHEST XRAY 1 VIEW on DOS: 03/02/25, XY CHEST PORTABLE on DOS: 02/28/25 FINDINGS: Lines and Tubes: Enteric catheter and right PICC in satisfactory position. Lungs: Increased interstitial prominence. This may represent pulmonary vascular congestion and/or viral pneumonia. Lower lung volumes. Pleura: No effusion.No pneumothorax. Cardiomediastinal contours: Cardiomegaly. Bones: Unremarkable IMPRESSION: Enteric catheter in satisfactory position.
--- NOTE | 2025-03-21 05:22 | DVH ---
Exam: XY KUB ABDOMEN SINGLE VIEW Indication: bleeding colostomy and r/o abscess Comparison: XY KUB ABDOMEN SINGLE VIEW on DOS: 03/01/25, CT CT AB PEL WO CON-NO ORAL OR IV on DOS: 02/17/25, CT CT ABD PELVIS W CON-ORAL IV on DOS: 02/16/25, XY KUB ABDOMEN SINGLE VIEW on DOS: 02/15/25, XY SMALL BOWEL SERIES-W GASTROGRA on DOS: 02/11/25 Technique: 1 radiographic views of the abdomen. Findings: Nonspecific bowel-gas pattern. Surgical drain in the left hemiabdomen. Surgical clips in the right hemiabdomen. Small volume enteric contrast in the rectum. Enteric catheter in the stomach. No abnormal calcifications noted. Impression: Nonspecific bowel-gas pattern.
[2025-03-21 06:54] LABS: Hematocrit 25.6 % (36.0-46.0); Hemoglobin 8.7 g/dL (12.2-16.2); Mean Corpuscular Hemoglobin 34.9 pg (28.0-32.0); Mean Corpuscular Volume 102.6 fL (80.0-100.0); Nucleated Red Blood Cells % 0.8 %
[2025-03-21 07:09] LABS: Anion Gap 12 (5-15); BUN/Creatinine Ratio 39.7 (10.0-20.0); Calcium 8.9 mg/dL (8.7-10.4); Carbon Dioxide 23 mmol/L (20-31); Chloride 106 mmol/L (98-107); Magnesium 2.1 mg/dL (1.6-2.6); Sodium 141 mmol/L (136-145)
[2025-03-21 07:13] LABS: Alanine Aminotransferase 132 U/L (7-40); Albumin 1.8 g/dL (3.2-4.8); Alkaline Phosphatase 121 U/L (46-116); Bilirubin, Total 4.4 mg/dL (0.2-1.0); Blood Urea Nitrogen 52 mg/dL (9-23); Glucose 183 mg/dL (74-106); Potassium 5.3 mmol/L (3.5-5.1); Total Protein 4.3 g/dL (5.7-8.2)
[2025-03-21] MEDS: ALBUTEROL SULF 2.5 MG/0.5ML(0.5%) NEB SOLN ONE (09:15)
[2025-03-21] MEDS: ALBUTEROL SULF 2.5 MG/0.5ML(0.5%) NEB SOLN NEB ONE (09:15)
[2025-03-21] MEDS: InsuLIN REG 1unit/0.01ml Soln (100units/ml) IV ONE (09:31)
[2025-03-21] MEDS: DEXTROSE (50%) 50ML SYRG IV ONE (09:32)
[2025-03-21 09:56] LABS: Lactic Acid w/Reflex 5.4 mmol/L (0.4-2.0)
--- NOTE | 2025-03-21 10:26 | DVHPN2 ---
Subjective Date Seen: Mar 21, 2025 Post op day Post op day: 1 Objective Vitals Vital Sign Date Time Temp Pulse Resp B/P (MAP) Pulse Ox O2 Delivery O2 Flow Rate FiO2 03/21/25 09:27 117 26 99 03/21/25 06:54 137/53 03/21/25 04:00 99.9 99.9 03/20/25 19:30 Room Air* 4 N/A Nasal Cannula* Total Intake and Output 03/20/25 03/20/25 03/21/25 15:00 23:00 07:00 Intake Total 1227.75 ml 415.25 ml 605 ml Output Total 450 ml 195 ml 720 ml Balance 777.75 ml 220.25 ml -115 ml Medications Current Medications Medications Dose Ordered Sig/Isaura Route Start Time Stop Time Status Last Admin Dose Admin Cefazolin Sodium 50 ml @ 100 mls/hr Q8HR IV 01/13/25 14:00 UNV Vasopressin 20 units/Sodium Chloride 100 ml @ 9 mls/hr Q11H7M IV 01/13/25 18:45 UNV Potassium Chloride 100 ml @ 50 mls/hr Q2H IV 01/16/25 12:45 01/16/25 18:44 UNV Vancomycin HCl 100 ml @ 100 mls/hr DAILY@1200 IV 01/20/25 12:00 UNV Amino Acids 0 ml @ 0 mls/hr PER PHARMACY IV 02/13/25 10:45 Ondansetron HCl 4 mg Q4HPRN PRN IV 02/21/25 09:30 03/12/25 17:08 4 MG Multi-Ingredient Ointment 1 applic DAILY TOP 02/23/25 10:00 03/19/25 07:34 1 APPLIC Norepinephrine Bitartrate 250 ml @ 3.75 mls/hr Q24H IV 02/25/25 11:45 03/21/25 01:08 18.75 MLS/HR Diagnostic Test (Pha) 1 strip Q4HR 02/26/25 16:00 Cancel Dextrose 50 ml UD PRN IV 02/26/25 14:15 Diagnostic Test (Pha) 1 strip IQ4HR 02/26/25 16:00 UNV Dextrose 50 ml UD PRN IV 02/26/25 16:00 UNV Insulin Human Regular Q6HR SC 03/02/25 12:00 03/21/25 05:07 3 UNITS Pantoprazole Sodium 40 mg BID IV 03/08/25 22:00 03/21/25 09:54 40 MG Levothyroxine Sodium 50 mcg DAILY IV 03/09/25 10:00 03/21/25 09:53 50 MCG Lidocaine 1 patch DAILY TOP 03/12/25 10:00 03/19/25 07:34 1 PATCH Iron Sucrose 110 ml @ 110 mls/hr DAILY@1200 IV 03/17/25 12:00 03/21/25 12:59 03/20/25 13:02 110 MLS/HR Micafungin Sodium 100 mg/Sodium Chloride 100 ml @ 100 mls/hr DAILY IV 03/18/25 10:00 03/21/25 09:54 100 MLS/HR Acetaminophen 650 mg Q6HP PRN AK 03/18/25 10:00 Hydromorphone HCl 1 mg Q4HPRN PRN IV 03/18/25 18:30 03/20/25 16:06 1 MG Morphine Sulfate 4 mg Q4HPRN PRN IV 03/18/25 18:30 03/20/25 20:07 4 MG Fat Emulsion Intravenous 150 ml/Sodium Chloride 20 meq/ Sodium Acetate 40 meq/Potassium Acetate 40 meq/ Potassium Phosphate 22 meq/ Magnesium Sulfate 12 meq/ Multivitamins 10 ml/Insulin Human Regular 8 units/ Amino Acids/ Dextrose/Purified Water 1,663.08 ml @ 69 mls/hr Q24H7M IV 03/20/25 22:00 03/21/25 21:59 03/20/25 21:01 69 MLS/HR Phenylephrine HCl 250 ml @ 30 mls/hr Q8H20M IV 03/20/25 21:00 03/21/25 06:54 30 MLS/HR Ceftriaxone Sodium/Dextrose 50 ml @ 50 mls/hr DAILY IV 03/21/25 10:00 Vasopressin 20 units/Sodium Chloride 100 ml @ 9 mls/hr Q11H7M IV 03/20/25 23:45 03/21/25 01:03 9 MLS/HR General: Normal Head/Eyes: Normal ENT: Normal Neck: Normal Lungs: Normal, Normal inspection Cardiovascular: Normal, Regular rate and rhythm Abdominal: Normal, Soft Labs and Microbiology Laboratory Tests 03/21/25 06:35 Test 03/21/25 06:35 Range/Units Serum Glucose 183 H 74-106 mg/dL Ass/Plan Labs and/or images reviewed: Labs reviewed by me, Image(s) reviewed by me Problem List ASSESSMENT AND PLAN: ID Problem List: -Perforated small bowel with persistent leak; intra-abdominal sepsis; status post multiple exploratory laparotomies with adhesiolysis and enteroenterostomies; CARMEN drains in place -Septic shock; acute hypoxic respiratory failure -Acute kidney injury (ISRRAEL) with acute tubular necrosis (ATN) improved -Transaminitis likely ischemic hepatitis improving -Thrombocytopenia (worsened ~01/19 while on vancomycin/fluconazole) -Diabetes mellitus -On apixaban (Eliquis) for last 2 weeks indication unclear -Past surgical history: section; hernia repair Assessment This is a 10 y.o. female with diabetes and prior and hernia repair, who presented with 4 days of sharp lower abdominal pain. Initial ED evaluation notable for CT A/P demonstrating free intraperitoneal air and small bowel inflammatory changes concerning for perforated viscus with mild ascites and mesenteric stranding. She underwent an exploratory laparotomy on 01/13 with lysis of adhesions, small bowel enteroenterostomy, and placement of two Mendel- Steele drains; peritoneal cultures at that time grew Escherichia coli and Klebsiella pneumoniae (both ceftriaxone susceptible). Postoperatively she required norepinephrine (Levophed) and broad-spectrum antibiotics. Course complicated by recurrent sepsis and suspected enterocutaneous/peritoneal contamination, requiring re-exploration on 02/03 with evacuation of copious intra-abdominal infection/abscesses and revision of anastomosis; intraoperative cultures reportedly not obtained. A drain sample dated 01/28 grew Stenotrophomonas ([id number]-SMX susceptible). Ongoing respiratory issues prompted empiric vancomycin, later discontinued when sputum grew only Nancy albicans. A third operation on 02/25 for persistent feculent leakage and peritonitis showed a distal ileal perforation proximal to adhesional obstruction; this was resected with primary anastomosis, and further adhesiolysis performed. Upper GI series on 03/04 demonstrates contrast extravasation from proximal small bowel (likely left jejunum) near a surgical drain, consistent with a persistent leak that appears to be adequately drained clinically. She has been afebrile since 03/03, is extubated to 2 L NC, hemodynamically supported on low-dose norepinephrine, and clinically stable abdominally (nontender). LFTs that had peaked during ischemic episodes are improving. Renal function has improved from admission. Cultures/culture interpretation: Earlier peritoneal cultures with E. coli and Klebsiella; drain fluid with Stenotrophomonas (01/28) and subsequent peritoneal/aspirate samples showing E. coli and vancomycin-resistant Enterococcus (VRE) on 03/02; one of four blood culture bottles (03/07) positive for Staphylococcus epidermidis, felt to be contaminant. Given the persistent bowel leak with external drainage and the timing/source of cultures, current drain cultures are likely colonization and may not represent true invasive pathogens. Antimicrobial course (per transcript): initial piperacillin-tazobactam (Zosyn) + vancomycin through 01/19; vancomycin stopped for suspected contribution to thrombocytopenia; courses including meropenem and micafungin through 01/31; then levofloxacin + metronidazole + micafungin through 02/03; meropenem continued thereafter with vancomycin re-trial for presumed pneumonia (later stopped by 02/21 after Nancy-only sputum); micafungin added/continued; trimethoprim- sulfamethoxazole (Bactrim) started 02/21 for Stenotrophomonas coverage; transcript also notes meropenem and rifampin continued until today. 03/16: sp NGT removal, stoma and drain with output. off levophed 03/18: new levophed needs, intermittently febrile, drain culture w e.coli and nancy: meropenem and micafungin restarted Plan: - fungal infection: - unclear if systemic non-candidemia yeast growth. - likely colonization and less likely systemic infection, but will check blood cultures - continue micafungin for now, if levophed need worsens, consider adding voriconazole empirically. -Intra-abdominal sepsis with persistent small bowel leak: -Source control: continue to ensure CARMNE drains are functioning; avoid routine re- culturing from drains as results likely represent colonization and may mislead management. -Imaging monitoring: recommend repeat CT abd pelvis pelvis prior to discharge to ensure bowel leak is contained. US of abdomen if unable to get CT -Antibiotics: -De-escalate broad coverage toward enteric pathogens (E. coli/Klebsiella) and away from agents targeting colonizers. -No ongoing coverage for Stenotrophomonas is required at this time. -No coverage for VRE is recommended; -stop Meropenem. can descalate to Ceftriaxone -Antifungal: continue micafungin for now, however suspect this two may be a colonizer -Duration: continue until leak is resolved or clearly contained with clinical improvement. -Transition to oral therapy when patient can tolerate and when clinically appropriate. -Respiratory: extubated to 2 L NC; supportive care; chest radiograph with persistent interstitial opacities, left basilar consolidation, small pleural effusions monitor clinically. -Renal: ISRRAEL/ATN improved (Cr now ~0.99); continue renal dosing of antimicrobials as indicated; monitor BMP. -Hepatic: transaminases improving from prior ischemic hepatitis; trend LFTs. -Hematology: platelet count currently ~118 K; monitor CBC. -Anticoagulation: on apixaban (Eliquis) for unclear indication per history; reconcile indication and risk/benefit with primary/surgical teams in context of recent surgeries/leak. -Nutrition/NG: continue NG suction per surgery; nutrition per surgical/ICU teams. -Lines/Drains: maintain CARMEN drains; monitor output and character; avoid routine drain cultures. -Follow-up: ID will continue to follow clinically; adjust therapy as new data emerge. Authorized and Performed by: sheron pedraza Total critical care time: Approximately 56 minutes Due to a high probability of clinically significant, life threatening deterioration, the patient required my highest level of preparedness to intervene emergently and I personally spent this critical care time directly and personally managing the patient. This critical care time included obtaining a history; examining the patient; pulse oximetry; ordering and review of studies; arranging urgent treatment with development of a management plan; evaluation of patient's response to treatment; frequent reassessment; and, discussions with other providers. This critical care time was performed to assess and manage the high probability of imminent, life-threatening deterioration that could result in multi-organ failure. It was exclusive of separately billable procedures and treating other patients and teaching time. \ Physical Exam: General: NAD Neck: Supple. No masses. HEENT: PERRL. Normal lids and conjunctiva. Moist mucous membranes. Oropharynx without lesions, exudates or excessive erythema. Normal appearance of the external aspects of the nose and ears. Heart: Regular rhythm, normal rate. No murmur. No lower extremity edema. Lungs: Normal respiratory effort. Clear to auscultation bilaterally. No wheezes. No crackles. Abdomen: Soft. Non-tender. Non-distended. No masses or abdominal hernia. drain and stoma functional . Msk: No digital cyanosis. Normal strength and tone in all 4 limbs Skin: Warm and dry, no rashes. Neuro: Alert. No facial droop or slurred speech. Extra-ocular movements intact. Sensation intact to soft touch in all 4 limbs. Psych: Appropriate mood. Full affect. Oriented to person, place, time, and situation. Assessment/Plan 01/19/25 s/p Exploratory laparotomy, lysis of adhesions, extensive lavage, resection of perforated small bowel, enteroenterostomy. unchanged from yesterday abdomen soft, non distended, CARMEN drainage clear serous, no bowel activity, febrile, urine output ok, continues with thrombocytopenia, Plan: continue current treatment discussed with Dr. Christy 01/21/2025 s/p Exploratory laparotomy, lysis of adhesions, extensive lavage, resection of perforated small bowel, enteroenterostomy. abdomen soft, non distended, CARMEN drainage clear serous, no bowel activity, urine output ok, platelet count improved albumin low off pressors blood culture , gram negative rods Plan: continue meropenem antibiotics albumin x3 discussed with Dr. Christy 01/22/2025 s/p Exploratory laparotomy, lysis of adhesions, extensive lavage, resection of perforated small bowel, enteroenterostomy. abdomen soft, non distended, CARMEN drainage clear serous, no bowel activity, urine output ok, platelet count improved blood culture , gram positive rods labs reviewed Plan: continue with current treatment discussed with Dr. Christy 01/24/2025 s/p Exploratory laparotomy, lysis of adhesions, extensive lavage, resection of perforated small bowel, enteroenterostomy. abdomen soft, non distended, CARMEN drainage clear serous, no bowel activity, urine output ok, platelet count improved labs reviewed Plan: small bowel series discussed with Dr. Christy 01/31/2025 s/p Exploratory laparotomy, lysis of adhesions, extensive lavage, resection of perforated small bowel, enteroenterostomy. abdomen soft, non distended, CARMEN drainage brownish, urine output ok labs reviewed Plan: small bowel series on Friday discussed with Dr. Christy 02/06/2025 Surgery: Exploratory laparotomy, lysis of adhesions, evacuation of pelvic and abdominal infection, resection of proximal jejunum, ileostomy, and jejunostomy. Post-Op Day: 2 Notes and labs were reviewed. Hemoglobin was 6.6 this morning, and a blood transfusion is currently being administered. Physical Exam: - Currently intubated and receiving fentanyl without other sedation. - Abdomen is soft and nondistended. - Minimal serosanguineous fluid is noted in the CARMEN drains. - The wound VAC has minimal sanguineous output. The wound is clean. Plan: - Continue current treatment. - Discussed case with Dr. Christy no changes to the plan of care at this time. 02/26/25 labs reviewed patient intubated , sedated abdomen soft, non distended wound vac stoma ok drain serous fluid Plan: continue current treatment 02/28/25 - Patient is intubated and responds to stimuli. no changes from yesterday : Abdomen is soft and non-distended. Stoma is pink. The wound is clean, dry, and intact with a wound vac in place. CARMEN drains have serous fluid output. - Investigations with results: Hemoglobin is low. Plan: - Treatment planned: Receiving one unit of packed red blood cells. CPAP today. Continue current treatment plan 03/10/2025 patient states feeling well : Abdomen is soft and non-distended. fecal matter in stoma bag . The wound is clean, dry, and intact with a wound vac in place. CARMEN drains have brown fluid. -WBC normal Plan: continue current treatment 03/11/25 patient states feeling well : Abdomen is soft and non-distended. fecal matter in stoma bag . The wound is clean, dry, and intact with a wound vac in place. CARMEN drain brown fluid. output over night 60cc -WBC normal Plan: continue current treatment 03/14/2025 patient states feeling well : Abdomen is soft and non-distended. fecal matter in stoma bag CARMEN drain out put decreased brown fluid. labs notes reviewed, discussed with Dr. Christy Plan: clamp NG tube NPO continue TPN 03/17/25 - Abdomen is soft, non-distended, and non-tender. - Surgical wound is clean, dry, and intact. - Mendel-Steele (CARMEN) drain output was 80 mL of brown fluid overnight. The output this morning was 10 mL. Assessment: - Plan: - To remain (NPO) and continue on total parenteral nutrition (TPN). - Cleared for transfer to a alf facility per Dr. Christy. Please notify Dr. Christy of location patient will be transferred to. - Dr. Christy will make a house call in two weeks. 03/21/25 Complaints: - Reports abdominal pain this morning. Physical Exam: - Abdomen: Soft, non-tender. - Wounds: Abdominal wound with wound vac in place, with minimal drainage noted. CARMEN drain with serosanguinous fluid output. Assessment: - Acidosis, corrected (pH was 7.1). - Febrile overnight. - Post-transfusion status: Received one unit of blood overnight. - Currently on vasopressin. - Abdominal pain, for which pain medication was administered this morning. Plan: - Continue pain management. - Remain NPO. - Maintain NG tube on low continuous suction. - Wound vac to remain in place. Prognosis: Good, Poor Plan discussed with Dr. Christy Visit Coding Surgery Date of Service if different f: Mar 21, 2025 Billing Provider: MELVA CHRISTY MD Surgery Visit Codes: [id number] INP/OBS CARE(HIGH) CLAYTON POWERS NP Mar 21, 2025 10:26
--- NOTE | 2025-03-21 11:59 | DVHPNRES ---
Progress Note Date Seen: Mar 21, 2025 Resident Creating Document: ASHLEY TREJO RESIDENT Has the PT tested + for MRSA If YES, has PT been informed?: No Medical Necessity Reason Pt with a Central, PICC or Fol: Yes The following are medically ne: PICC Line, Leach Catheter Reason for leach catheter: Strict I&O Subjective Review of Systems This is a 80-year-old lady with past medical history of hypertension, AFib (on Eliquis), diabetes type 2, CKD, came to the hospital due to abdominal pain, and constipation. Admitted on 01/13/2025. Found to have peritonitis due to bowel perforation, and underwent emergent laparotomy with subsequent resection of perforated small bowel and enteroenterostomy. Due to abnormal CARMEN drainage, second exploratory laparotomy performed on 02/04 and found to have perforation near to previous perforation area, underwent resection of area with subsequent anastomosis of proximal jejunal loops. 03/12/2025: Patient seen in the ICU. Continued to be NPO. On 2 L oxygen via nasal cannula. Wound VAC is mild functional, yellowish drainage from incision site, CARMEN drain is functional, draining greenish bile. No signs of fever. No any other night complaints. 03/13/2025: Patient seen and ICU. Patient is to be continued on NPO. Is on room air, wound care to be done, wet-to-dry. Surgery following, low intermittent suction of NG tube, 130 mL of greenish fluid from CARMEN drain, 50 mL from NG tube noted. 03/14/2025: Patient seen in ICU. Patient is to be continued on NPO, is on room air, wound care is wet-to-dry, patient is getting TPN, had 145 removal of greenish drainage from CARMEN drain. Patient has nonblanching redness on sacrum. Today she came complains of 8/10 pain in the abdomen and back. NG tube was clamped. Following surgery. 03/15/25: patient seen in the ICU. She is still NPO. on room air, wound cares were too dry, NG tube removed. Still greenish drainage from CARMEN drain, blackish stool in the colostomy bag. She still complains of pain in the abdomen, back. PT is able to get her to wheelchair. surgery following. 03/16/2025: Patient seen in the ICU. She is still NPO, on TPN, on room air wound care is wet to dry NG tube was removed yesterday. There is blackish stool, blood seen in the colostomy bag today. She still complains of abdominal pain, there was greenish drainage in the wound. Foleys changed, aspirate culture ordered, 03/17/25: Patient seen in the ICU. Patient is still NPO, on TPN, on room air, wound VAC needs component. 80 mL from CARMEN drain. Second opinion by Dr. Rivera to be given. Micafungin added, morphine sulfate changed to 2 mg IV q.4 PRN. 03/18/25: Patient seen in ICU. Patient is still NPO, on TPN, on room air, CARMEN drain in place. Second opinion to be given by Dr. Rivera. 03/19/25: Patient is seen in ICU p.o. continue be NPO on TPN. Plan for laparotomy procedure tomorrow a.m.. No any other complaints. 03/20/2025: Patient seen in the ICU, laparotomy was done today, patient is on 3 L nasal oxygen. Patient is drowsy, did not complain of any pain. Patient is on Levophed,. NG Tube in place, CARMEN drains in place. 03/21/25: Patient seen in ICU, laparotomy was done yesterday, patient is on 3 L nasal oxygen, patient complains of 8/10 pain, is on Levophed, TPN. NG tube with low intermittent suction. Patient has a CARMEN drain with 30 mL serosanguineous bloody discharge. wound VAC in place. Lactic acid is trending down, WBC count trending down, patient was given 1 PRBC and hemoglobin is stable at 8.7. Patient antibiotics were switched from meropenem to ceftriaxone. Patient is on new 40, vasopressin 0.03. Objective vital signs Vital Sign Date Time Temp Pulse Resp B/P (MAP) Pulse Ox O2 Delivery O2 Flow Rate FiO2 03/21/25 11:12 119 27 96/49 03/21/25 09:27 99 03/21/25 04:00 99.9 99.9 03/20/25 19:30 Room Air* 4 N/A Nasal Cannula* Total Intake and Output 03/20/25 03/20/25 03/21/25 15:00 23:00 07:00 Intake Total 1227.75 ml 415.25 ml 605 ml Output Total 450 ml 195 ml 720 ml Balance 777.75 ml 220.25 ml -115 ml medications Current Medications Medications Dose Ordered Sig/Isaura Route Start Time Stop Time Status Last Admin Dose Admin Cefazolin Sodium 50 ml @ 100 mls/hr Q8HR IV 01/13/25 14:00 UNV Vasopressin 20 units/Sodium Chloride 100 ml @ 9 mls/hr Q11H7M IV 01/13/25 18:45 UNV Potassium Chloride 100 ml @ 50 mls/hr Q2H IV 01/16/25 12:45 01/16/25 18:44 UNV Vancomycin HCl 100 ml @ 100 mls/hr DAILY@1200 IV 01/20/25 12:00 UNV Amino Acids 0 ml @ 0 mls/hr PER PHARMACY IV 02/13/25 10:45 Ondansetron HCl 4 mg Q4HPRN PRN IV 02/21/25 09:30 03/12/25 17:08 4 MG Multi-Ingredient Ointment 1 applic DAILY TOP 02/23/25 10:00 03/19/25 07:34 1 APPLIC Norepinephrine Bitartrate 250 ml @ 3.75 mls/hr Q24H IV 02/25/25 11:45 03/21/25 01:08 18.75 MLS/HR Diagnostic Test (Pha) 1 strip Q4HR 02/26/25 16:00 Cancel Dextrose 50 ml UD PRN IV 02/26/25 14:15 Diagnostic Test (Pha) 1 strip IQ4HR 02/26/25 16:00 UNV Dextrose 50 ml UD PRN IV 02/26/25 16:00 UNV Insulin Human Regular Q6HR SC 03/02/25 12:00 03/21/25 05:07 3 UNITS Pantoprazole Sodium 40 mg BID IV 03/08/25 22:00 03/21/25 09:54 40 MG Levothyroxine Sodium 50 mcg DAILY IV 03/09/25 10:00 03/21/25 09:53 50 MCG Lidocaine 1 patch DAILY TOP 03/12/25 10:00 03/19/25 07:34 1 PATCH Iron Sucrose 110 ml @ 110 mls/hr DAILY@1200 IV 03/17/25 12:00 03/21/25 12:59 03/20/25 13:02 110 MLS/HR Micafungin Sodium 100 mg/Sodium Chloride 100 ml @ 100 mls/hr DAILY IV 03/18/25 10:00 03/21/25 09:54 100 MLS/HR Acetaminophen 650 mg Q6HP PRN NV 03/18/25 10:00 Hydromorphone HCl 1 mg Q4HPRN PRN IV 03/18/25 18:30 03/21/25 11:12 1 MG Morphine Sulfate 4 mg Q4HPRN PRN IV 03/18/25 18:30 03/20/25 20:07 4 MG Fat Emulsion Intravenous 150 ml/Sodium Chloride 20 meq/ Sodium Acetate 40 meq/Potassium Acetate 40 meq/ Potassium Phosphate 22 meq/ Magnesium Sulfate 12 meq/ Multivitamins 10 ml/Insulin Human Regular 8 units/ Amino Acids/ Dextrose/Purified Water 1,663.08 ml @ 69 mls/hr Q24H7M IV 03/20/25 22:00 03/21/25 21:59 03/20/25 21:01 69 MLS/HR Phenylephrine HCl 250 ml @ 30 mls/hr Q8H20M IV 03/20/25 21:00 03/21/25 06:54 30 MLS/HR Ceftriaxone Sodium/Dextrose 50 ml @ 50 mls/hr DAILY IV 03/21/25 10:00 Vasopressin 20 units/Sodium Chloride 100 ml @ 9 mls/hr Q11H7M IV 03/20/25 23:45 03/21/25 10:28 6 MLS/HR Examination Pt is lying on bed General Appearance: Alert and Oriented x2 HEENT: Atraumatic, Mucous membranes moist/pink Respiratory: Clear to auscultation, Normal air movement, No added sounds Cardiovascular: Regular rate, Normal S1, Normal S2, No murmurs Abdominal: Active bowel sounds, Soft, no distention, no tenderness, colostomy bag in place and 1 CARMEN drain with Serosanguineous bloody fluid Extremities: No pitting edema Skin: No Significant rash, except past surgical scars Neuro: more alert and oriented Nurse was there as production staff worker during examination laboratory and microbiology Laboratory Tests 03/21/25 06:35 Test 03/21/25 06:35 Range/Units Serum Glucose 183 H 74-106 mg/dL Microbiology Date/Time Source Procedure Growth Status 03/16/25 18:00 Aspirate Gram Stain - Final Complete 03/16/25 18:00 Body Fluid Culture - Final Escherichia coli Yeast, not Zoe albicans Complete 03/16/25 15:48 Urine - [place] Urine Culture - Final Yeast, not Zoe albicans Complete 03/07/25 08:32 Blood Blood Culture - Final Staphylococcus epidermidis Complete 02/25/25 11:48 Sputum Gram Stain - Final Complete 02/25/25 11:48 Sputum Respiratory Culture - Final Complete 01/13/25 17:10 Nose MRSA Screen - Final Complete Problem List/Assessment/Plan Problem List/Assessment/Plan Neurology # Chronic ischemic changes # Chronic Cortical atrophy - Head CT (01/29): Chronic microangiopathy and cortical atrophy. - reintubated on 02/25/25 during surgery # Extubated on 02/28 Cardiovascular # Septic shock secondary to hollow viscus perforation. # Paroxysmal atrial fibrillation with a second-degree hypercoagulable state currently NSR # Chronic diastolic heart failure with preserved EF 65% # Hypertension. - Echocardiogram (01/15): Normal LV EF (65%), mild LVH, mild LV diastolic dysfunction. - Chest X-ray: Bibasilar atelectasis. - ZEFERINO?DS?-VASc score >5 - cardiology on board - initially on Lovenox therapeutic but Dc'd due to low hemoglobin - Labetalol PRN Pulmonary # Acute hypoxic respiratory failure secondary to bilateral pleural effusion/pneumonia s/p re-intubation, status post extubation 02/28 - monitor with daily CXR - Sputum culture 01/29 Presumptive Zoe albicans and : negative - Reintubated on 02/25. - Chest Physiotherapy ongoing. - extubated today Gastrointestinal / Liver # Acute Bacterial Peritonitis due to small bowel perforation vs Perisplenic abscess. s/p multiple laparotomies # Transaminitis secondary to shock. # Anion gap metabolic acidosis due to bowel ischemia and lactic acidosis - CT abdomen/pelvis (02/16): Pneumoperitoneum, extraluminal contrast, perisplenic/subdiaphragmatic collection (7.1 1.1 cm). - Small bowel series (02/11): Normal. - Gastrografin (02/21): [place]-enteric fistula, contrast leak from distal transverse colon. Procedures: - First laparotomy (01/13): Resection of perforated small bowel, enteroenterostomy. - Second laparotomy (02/04): Resection near previous perforation, jejunal anastomosis. - Third laparotomy (02/25): Resection of distal ileum, end-to-end anastomosis, ileostomy. - fourth laparotomy(03/20): Cultures: - Peritoneal fluid (01/13): E. coli, Klebsiella pneumoniae (sensitive to meropenem). - Peritoneal fluid (02/17): E. coli, Stenotrophomonas maltophilia. - Aspirate Showed(03/02): VRE - IR-guided pigtail drain placed; drained 50 cc purulent fluid. - CARMEN drains placed in 4 quadrants initially and now patient has only 1 CARMEN drain - Initially NPO, TPN initiated. - NG tube placed. - IV antimicrobials meropenem and micafungin - Initially patient is on Levofloxacin, Flagyl (02/03); Vancomycin and Meropenem (); Meropenem (); Vancomycin () then eventually switched to above antimicrobials - Started Daptomycin (03/08), Bactrim stopped (03/08), stopped daptomycin - added micafungin - (03/17) - 2nd opinion to be given by Dr. Rivera -03/21- meropenem to ceftriaxone -Gastrografin scan(03/05) showed Contrast extravasation is seen in the proximal small bowel, possibly left sided jejunum near the surgical drain can be seen with a leak. -patient kept NPO - NG tube removed (03/15) Genitourinary / Kidney # ISRRAEL likely secondary to shock/volume depletion- resolved - Nephrology consulted for ISRRAEL. Endocrine # Hypothyroidism: TSH 42.29, low T4 # Type 2 diabetes mellitus: HbA1c 8.2%.- # Episodes of hypoglycemia. # Hypothyroidism - continuously monitoring blood glucose and on ISS - Started on Levothyroxine 50 daily Metabolic Hypokalemia. Hyperkalemia. Hyponatremia: D5W at 75 mL/hr per nephrology. Hypophosphatemia: given IV phosphate Nutrition: Severe protein malnutrition. Hematology # Acute on chronic anemia (hemodilution/post-surgical). # Severe thrombocytopenia, HIT # Acute DVT of right upper extremity. - Ultrasound (01/17): Partial thrombus in right internal jugular and cephalic veins. - hemoglobin today 6.9, transfused 1 more unit of PRBC 10/20 - Transfused total 8 units PRBC, 2 platelet units. - continuously monitor H&H - hold blood thinners Musculoskeletal / Skin # Rib fracture due to fall. Nutrition: TPN initiated. Bowel Regimen: As needed. GI Prophylaxis: Pantoprazole bid DVT Prophylaxis: Lovenox (held/ Dc'd due to low hemoglobin). Lines / Tubes / Devices Airway: Intubated on 01/14, extubated on 02/07, reintubated on 02/25 extubated 02/28 Vascular Access: PICC line placed in right upper thigh on 01/26. Drips: Dc'd pressors and sedatives. Urinary: Leach catheter placed on 01/14, exchanged on 02/14. Exchanged on 03/17. CARMEN drains in 1 quadrant. Goals of care addressed with patient's family members for more than 29 minutes: Full code status Care plan updated to the patient family Chris (son) on bedside and addressed all concerns Critical care time spent more than 61 minutes excluding procedures and including discussion with the family Case discussed with Dr. Carvalho and RN Plan discussed with: Son My Orders My Orders Orders - ASHLEY TREJO Procedure Category Date Status Time Venous Blood Gas RT 03/21/25 Logged 09:31 Dietary Evaluation Review Comments: Nutrition Recommendation: 1) TPN to meet at least 75% estimated needs within 7 days 2) Monitor NPO status, lab values, wt trend, I/O Expected Outcomes/Goals: To meet >75% estimated needs Lab values to improve Fu 2-3 days Is there a minimum of two crit: Yes CC Plasma Assessment Blood Product Administration S: [id number] Date of Service: Mar 21, 2025 Billing Provider: ZBIGNIEW SELF MD Common Visit Codes: [id number] CARE 30-74 MIN ASHLEY TREJO Mar 21, 2025 11:59 ZBIGNIEW SELF MD Mar 22, 2025 14:32
--- NOTE | 2025-03-21 14:29 | CONS ---
Pharmacy Clinical Information: Called Dr. Ingram in the morning around 9am regarding critical liver function and patient having septic shock. I recommended to change from TPN to Clinimix since TPN in septick shock patient has been associated with increased mortality. She agreed to change. When TPN is almost due at 12:30pm, TPN was not discontinued, called again to remind her. Dr. Ingram said to continue with TPN and she will discuss with her attending later. Amino acid, dextrose, and lipid were reduced in today's TPN due to acute liver function levels. Electrolytes stable MACKENZIE [facility]AKKAR [facility] RES[facility] Mar 21, 2025 14:29
[2025-03-21] MEDS: SODIUM CHLORIDE 0.9% 250 ML IV ONE (14:58)
[2025-03-21] MEDS: SODIUM CHLORIDE 0.9% 1,000 ML IV SCH (14:58)
[2025-03-21] MEDS: HYDROmorphone HCL 2 MG/ML VL/or syr IV PRN (15:10)
[2025-03-21] MEDS: ALBUMIN 25% 50 ML IV SCH (15:11)
[2025-03-21] MEDS: TPN PER PHARMACY IV NR (22:00)
[2025-03-22] VITALS (95 sets, daily range): BP systolic 99–169; BP diastolic 50–134; PULSE 100–127; RESP 11–31; TEMP 98.1–98.8; O2SAT 95–100
[2025-03-22 03:24] LABS: Hematocrit 20.2 % (36.0-46.0); Mean Corpuscular Hemoglobin 35.3 pg (28.0-32.0); Mean Corpuscular Volume 103.8 fL (80.0-100.0); Nucleated Red Blood Cells % 0.3 %
[2025-03-22 03:25] LABS: Hemoglobin 6.9 g/dL (12.2-16.2)
[2025-03-22 03:31] LABS: Alkaline Phosphatase 113 U/L (46-116); Anion Gap 10 (5-15); BUN/Creatinine Ratio 47.5 (10.0-20.0); Calcium 9.2 mg/dL (8.7-10.4); Carbon Dioxide 27 mmol/L (20-31); Magnesium 2.1 mg/dL (1.6-2.6); Potassium 4.1 mmol/L (3.5-5.1)
[2025-03-22 03:32] LABS: Lactic Acid w/Reflex 2.5 mmol/L (0.4-2.0)
[2025-03-22 03:33] LABS: Alanine Aminotransferase 109 U/L (7-40); Albumin 1.8 g/dL (3.2-4.8); Bilirubin, Total 4.9 mg/dL (0.2-1.0); Blood Urea Nitrogen 57 mg/dL (9-23); Chloride 109 mmol/L (98-107); Glucose 145 mg/dL (74-106); Sodium 146 mmol/L (136-145); Total Protein 4.0 g/dL (5.7-8.2)
--- NOTE | 2025-03-22 11:49 | DVHPNRES ---
Progress Note Date Seen: Mar 22, 2025 Resident Creating Document: ASHLEY TREJO RESIDENT Has the PT tested + for MRSA If YES, has PT been informed?: No Medical Necessity Reason Pt with a Central, PICC or Fol: Yes The following are medically ne: PICC Line, Leach Catheter Reason for leach catheter: Strict I&O Subjective Review of Systems This is a 80-year-old lady with past medical history of hypertension, AFib (on Eliquis), diabetes type 2, CKD, came to the hospital due to abdominal pain, and constipation. Admitted on 01/13/2025. Found to have peritonitis due to bowel perforation, and underwent emergent laparotomy with subsequent resection of perforated small bowel and enteroenterostomy. Due to abnormal CARMEN drainage, second exploratory laparotomy performed on 02/04 and found to have perforation near to previous perforation area, underwent resection of area with subsequent anastomosis of proximal jejunal loops. 03/12/2025: Patient seen in the ICU. Continued to be NPO. On 2 L oxygen via nasal cannula. Wound VAC is mild functional, yellowish drainage from incision site, CARMEN drain is functional, draining greenish bile. No signs of fever. No any other night complaints. 03/13/2025: Patient seen and ICU. Patient is to be continued on NPO. Is on room air, wound care to be done, wet-to-dry. Surgery following, low intermittent suction of NG tube, 130 mL of greenish fluid from CARMEN drain, 50 mL from NG tube noted. 03/14/2025: Patient seen in ICU. Patient is to be continued on NPO, is on room air, wound care is wet-to-dry, patient is getting TPN, had 145 removal of greenish drainage from CARMEN drain. Patient has nonblanching redness on sacrum. Today she came complains of 8/10 pain in the abdomen and back. NG tube was clamped. Following surgery. 03/15/25: patient seen in the ICU. She is still NPO. on room air, wound cares were too dry, NG tube removed. Still greenish drainage from CARMEN drain, blackish stool in the colostomy bag. She still complains of pain in the abdomen, back. PT is able to get her to wheelchair. surgery following. 03/16/2025: Patient seen in the ICU. She is still NPO, on TPN, on room air wound care is wet to dry NG tube was removed yesterday. There is blackish stool, blood seen in the colostomy bag today. She still complains of abdominal pain, there was greenish drainage in the wound. Foleys changed, aspirate culture ordered, 03/17/25: Patient seen in the ICU. Patient is still NPO, on TPN, on room air, wound VAC needs component. 80 mL from CARMEN drain. Second opinion by Dr. Rivera to be given. Micafungin added, morphine sulfate changed to 2 mg IV q.4 PRN. 03/18/25: Patient seen in ICU. Patient is still NPO, on TPN, on room air, CARMEN drain in place. Second opinion to be given by Dr. Rivera. 03/19/25: Patient is seen in ICU p.o. continue be NPO on TPN. Plan for laparotomy procedure tomorrow a.m.. No any other complaints. 03/20/2025: Patient seen in the ICU, laparotomy was done today, patient is on 3 L nasal oxygen. Patient is drowsy, did not complain of any pain. Patient is on Levophed,. NG Tube in place, CARMEN drains in place. 03/21/25: Patient seen in ICU, laparotomy was done yesterday, patient is on 3 L nasal oxygen, patient complains of 8/10 pain, is on Levophed, TPN. NG tube with low intermittent suction. Patient has a CAREMN drain with 30 mL serosanguineous bloody discharge. wound VAC in place. Lactic acid is trending down, WBC count trending down, patient was given 1 PRBC and hemoglobin is stable at 8.7. Patient antibiotics were switched from meropenem to ceftriaxone. Patient is on new 40, vasopressin 0.03. 03/22/2025: Patient seen in ICU, patient is on room air, complains of pain, wound VAC to be changed, 1 PRBC was given due to low hemoglobin, H and H was checked anf Hb is7.9. Objective vital signs Vital Sign Date Time Temp Pulse Resp B/P (MAP) Pulse Ox O2 Delivery O2 Flow Rate FiO2 03/22/25 10:08 120 22 146/70 03/22/25 08:39 98.1 98.1 03/22/25 04:45 99 03/21/25 20:00 Nasal Cannula* 4 36 Total Intake and Output 03/21/25 03/21/25 03/22/25 15:00 23:00 07:00 Intake Total 912.25 ml 1503 ml 1308 ml Output Total 1550 ml 1220 ml Balance 912.25 ml -47 ml 88 ml medications Current Medications Medications Dose Ordered Sig/Isaura Route Start Time Stop Time Status Last Admin Dose Admin Cefazolin Sodium 50 ml @ 100 mls/hr Q8HR IV 01/13/25 14:00 UNV Vasopressin 20 units/Sodium Chloride 100 ml @ 9 mls/hr Q11H7M IV 01/13/25 18:45 UNV Potassium Chloride 100 ml @ 50 mls/hr Q2H IV 01/16/25 12:45 01/16/25 18:44 UNV Vancomycin HCl 100 ml @ 100 mls/hr DAILY@1200 IV 01/20/25 12:00 UNV Amino Acids 0 ml @ 0 mls/hr PER PHARMACY IV 02/13/25 10:45 Ondansetron HCl 4 mg Q4HPRN PRN IV 02/21/25 09:30 03/12/25 17:08 4 MG Multi-Ingredient Ointment 1 applic DAILY TOP 02/23/25 10:00 03/22/25 11:30 1 APPLIC Norepinephrine Bitartrate 250 ml @ 3.75 mls/hr Q24H IV 02/25/25 11:45 03/21/25 01:08 18.75 MLS/HR Diagnostic Test (Pha) 1 strip Q4HR 02/26/25 16:00 Cancel Dextrose 50 ml UD PRN IV 02/26/25 14:15 Diagnostic Test (Pha) 1 strip IQ4HR 02/26/25 16:00 UNV Dextrose 50 ml UD PRN IV 02/26/25 16:00 UNV Insulin Human Regular Q6HR SC 03/02/25 12:00 03/22/25 06:11 3 UNITS Pantoprazole Sodium 40 mg BID IV 03/08/25 22:00 03/22/25 10:05 40 MG Levothyroxine Sodium 50 mcg DAILY IV 03/09/25 10:00 03/22/25 10:05 50 MCG Lidocaine 1 patch DAILY TOP 03/12/25 10:00 03/22/25 10:06 1 PATCH Micafungin Sodium 100 mg/Sodium Chloride 100 ml @ 100 mls/hr DAILY IV 03/18/25 10:00 03/22/25 10:05 100 MLS/HR Acetaminophen 650 mg Q6HP PRN WI 03/18/25 10:00 Morphine Sulfate 4 mg Q4HPRN PRN IV 03/18/25 18:30 03/20/25 20:07 4 MG Phenylephrine HCl 250 ml @ 30 mls/hr Q8H20M IV 03/20/25 21:00 03/22/25 01:18 30 MLS/HR Vasopressin 20 units/Sodium Chloride 100 ml @ 9 mls/hr Q11H7M IV 03/20/25 23:45 03/22/25 00:05 9 MLS/HR Fat Emulsion Intravenous 100 ml/Sodium Acetate 40 meq/Magnesium Sulfate 14 meq/ Multivitamins 10 ml/Insulin Human Regular 5 units/ Amino Acids/ Dextrose/Purified Water 1,483.55 ml @ 62 mls/hr [id number] IV 03/21/25 22:00 03/22/25 21:59 03/21/25 22:00 62 MLS/HR Hydromorphone HCl 1 mg Q3HP PRN IV 03/21/25 14:15 03/22/25 10:08 1 MG Ceftriaxone Sodium/Dextrose 50 ml @ 50 mls/hr DAILY IV 03/22/25 10:00 03/22/25 11:30 50 MLS/HR Sodium Chloride 1,000 ml @ 75 mls/hr [id number] IV 03/21/25 14:15 03/22/25 00:04 75 MLS/HR Fat Emulsion Intravenous 100 ml/Potassium Phosphate 22 meq/ Magnesium Sulfate 14 meq/ Multivitamins 10 ml/Insulin Human Regular 5 units/ Amino Acids/ Dextrose/Purified Water 1,368.55 ml @ 57 mls/hr Q24H1M IV 03/22/25 22:00 03/23/25 21:59 Examination Pt is lying on bed General Appearance: Alert and Oriented x2 HEENT: Atraumatic, Mucous membranes moist/pink Respiratory: Clear to auscultation, Normal air movement, No added sounds Cardiovascular: Regular rate, Normal S1, Normal S2, No murmurs Abdominal: Active bowel sounds, Soft, no distention, no tenderness, colostomy bag in place and 1 CARMEN drain with Serosanguineous bloody fluid Extremities: No pitting edema Skin: No Significant rash, except past surgical scars Neuro: more alert and oriented Nurse was there as vessel specialist during examination laboratory and microbiology Laboratory Tests 03/22/25 02:50 Test 03/22/25 02:50 Range/Units Serum Glucose 145 H 74-106 mg/dL Microbiology Date/Time Source Procedure Growth Status 03/20/25 22:15 Blood Blood Culture - Preliminary NO GROWTH AFTER 24 HOURS OF INCUBATION. Resulted 03/20/25 08:12 Peritoneal Fluid Gram Stain - Final Resulted 03/20/25 08:12 Peritoneal Fluid Anaerobic Culture - Preliminary Resulted 03/20/25 08:12 Peritoneal Fluid Aerobic Culture - Preliminary Resulted 03/16/25 15:48 Urine - [place] Urine Culture - Final Yeast, not Zoe albicans Complete 02/25/25 11:48 Sputum Gram Stain - Final Complete 02/25/25 11:48 Sputum Respiratory Culture - Final Complete 01/13/25 17:10 Nose MRSA Screen - Final Complete Problem List/Assessment/Plan Problem List/Assessment/Plan Neurology # Chronic ischemic changes # Chronic Cortical atrophy - Head CT (01/29): Chronic microangiopathy and cortical atrophy. - reintubated on 02/25/25 during surgery # Extubated on 02/28 Cardiovascular # Septic shock secondary to hollow viscus perforation. # Paroxysmal atrial fibrillation with a second-degree hypercoagulable state currently NSR # Chronic diastolic heart failure with preserved EF 65% # Hypertension. - Echocardiogram (01/15): Normal LV EF (65%), mild LVH, mild LV diastolic dysfunction. - Chest X-ray: Bibasilar atelectasis. - ZEFERINO?DS?-VASc score >5 - cardiology on board - initially on Lovenox therapeutic but Dc'd due to low hemoglobin - Labetalol PRN Pulmonary # Acute hypoxic respiratory failure secondary to bilateral pleural effusion/pneumonia s/p re-intubation, status post extubation 02/28 - monitor with daily CXR - Sputum culture 01/29 Presumptive Zoe albicans and : negative - Reintubated on 02/25. - Chest Physiotherapy ongoing. - extubated today Gastrointestinal / Liver # Acute Bacterial Peritonitis due to small bowel perforation vs Perisplenic abscess. s/p multiple laparotomies # Transaminitis secondary to shock. # Anion gap metabolic acidosis due to bowel ischemia and lactic acidosis - CT abdomen/pelvis (02/16): Pneumoperitoneum, extraluminal contrast, perisplenic/subdiaphragmatic collection (7.1 1.1 cm). - Small bowel series (02/11): Normal. 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 Procedures: - First laparotomy (01/13): Resection of perforated small bowel, enteroenterostomy. - Second laparotomy (02/04): Resection near previous perforation, jejunal anastomosis. - Third laparotomy (02/25): Resection of distal ileum, end-to-end anastomosis, ileostomy. - fourth laparotomy(03/20): Cultures: - Peritoneal fluid (01/13): E. coli, Klebsiella pneumoniae (sensitive to meropenem). - Peritoneal fluid (02/17): E. coli, Stenotrophomonas maltophilia. - Aspirate Showed(03/02): VRE - IR-guided pigtail drain placed; drained 50 cc purulent fluid. - CARMEN drains placed in 4 quadrants initially and now patient has only 1 CARMEN drain - Initially NPO, TPN initiated. - NG tube placed. - IV antimicrobials meropenem and micafungin - Initially patient is on Levofloxacin, Flagyl (02/03); Vancomycin and Meropenem (); Meropenem (); Vancomycin () then eventually switched to above antimicrobials - Started Daptomycin (03/08), Bactrim stopped (03/08), stopped daptomycin - added micafungin - (03/17) - 2nd opinion to be given by Dr. Rivera -03/21- meropenem to ceftriaxone -Gastrografin scan(03/05) showed Contrast extravasation is seen in the proximal small bowel, possibly left sided jejunum near the surgical drain can be seen with a leak. -patient kept NPO - NG tube removed (03/15) Genitourinary / Kidney # ISRRAEL likely secondary to shock/volume depletion- resolved - Nephrology consulted for ISRRAEL. Endocrine # Hypothyroidism: TSH 42.29, low T4 # Type 2 diabetes mellitus: HbA1c 8.2%.- # Episodes of hypoglycemia. # Hypothyroidism - continuously monitoring blood glucose and on ISS - Started on Levothyroxine 50 daily Metabolic Hypokalemia. Hyperkalemia. Hyponatremia: D5W at 75 mL/hr per nephrology. Hypophosphatemia: given IV phosphate Nutrition: Severe protein malnutrition. Hematology # Acute on chronic anemia (hemodilution/post-surgical). # Severe thrombocytopenia, HIT # Acute DVT of right upper extremity. - Ultrasound (01/17): Partial thrombus in right internal jugular and cephalic veins. - hemoglobin today 6.9, transfused 1 more unit of PRBC 02/28 - Transfused total 8 units PRBC, 2 platelet units. - continuously monitor H&H - hold blood thinners Musculoskeletal / Skin # Rib fracture due to fall. Nutrition: TPN initiated. Bowel Regimen: As needed. GI Prophylaxis: Pantoprazole bid DVT Prophylaxis: Lovenox (held/ Dc'd due to low hemoglobin). Lines / Tubes / Devices Airway: Intubated on 01/14, extubated on 02/07, reintubated on 02/25 extubated 02/28 Vascular Access: PICC line placed in right upper thigh on 01/26. Drips: Dc'd pressors and sedatives. Urinary: Leach catheter placed on 01/14, exchanged on 02/14. Exchanged on 03/17. CARMEN drains in 1 quadrant. Goals of care addressed with patient's family members for more than 29 minutes: Full code status Care plan updated to the patient family Chris (son) on bedside and addressed all concerns Critical care time spent more than 61 minutes excluding procedures and including discussion with the family Case discussed with Dr. Carvalho and RN Plan discussed with: Son My Orders My Orders Orders - ASHLEY TREJO RESIDENT Procedure Category Date Status Time Abg W/ Co-Ox RT 03/22/25 Logged 07:36 Hemoglobin & LAB 03/22/25 Logged Hematocrit 11:45 Dietary Evaluation Review Comments: Nutrition Recommendation: 1) TPN to meet at least 75% estimated needs within 7 days 2) Monitor NPO status, lab values, wt trend, I/O Expected Outcomes/Goals: To meet >75% estimated needs Lab values to improve Fu 2-3 days Is there a minimum of two crit: Yes CC Plasma Assessment Blood Product Administration S: [id number] Date of Service: Mar 22, 2025 Billing Provider: ZBIGNIEW SELF MD Common Visit Codes: [id number] CARE 30-74 MIN ASHLEY TREJO Mar 22, 2025 11:49 ZBIGNIEW SELF MD Mar 23, 2025 14:58
--- NOTE | 2025-03-22 12:02 | DVHPN2 ---
Progress Note Date Seen: Mar 22, 2025 Has the PT tested + for MRSA If YES, has PT been informed?: No Medical Necessity Reason Pt with a Central, PICC or Fol: Yes The following are medically ne: PICC Line, Leach Catheter Reason for leach catheter: Strict I&O Objective vital signs Vital Sign Date Time Temp Pulse Resp B/P (MAP) Pulse Ox O2 Delivery O2 Flow Rate FiO2 03/22/25 10:08 120 22 146/70 03/22/25 08:39 98.1 98.1 03/22/25 04:45 99 03/21/25 20:00 Nasal Cannula* 4 36 Total Intake and Output 03/21/25 03/21/25 03/22/25 14:59 22:59 06:59 Intake Total 837.25 ml 1449 ml 1408 ml Output Total 1550 ml 1220 ml Balance 837.25 ml -101 ml 188 ml medications Current Medications Medications Dose Ordered Sig/Isaura Route Start Time Stop Time Status Last Admin Dose Admin Cefazolin Sodium 50 ml @ 100 mls/hr Q8HR IV 01/13/25 14:00 UNV Vasopressin 20 units/Sodium Chloride 100 ml @ 9 mls/hr Q11H7M IV 01/13/25 18:45 UNV Potassium Chloride 100 ml @ 50 mls/hr Q2H IV 01/16/25 12:45 01/16/25 18:44 UNV Vancomycin HCl 100 ml @ 100 mls/hr DAILY@1200 IV 01/20/25 12:00 UNV Amino Acids 0 ml @ 0 mls/hr PER PHARMACY IV 02/13/25 10:45 Ondansetron HCl 4 mg Q4HPRN PRN IV 02/21/25 09:30 03/12/25 17:08 4 MG Multi-Ingredient Ointment 1 applic DAILY TOP 02/23/25 10:00 03/22/25 11:30 1 APPLIC Norepinephrine Bitartrate 250 ml @ 3.75 mls/hr Q24H IV 02/25/25 11:45 03/21/25 01:08 18.75 MLS/HR Diagnostic Test (Pha) 1 strip Q4HR 02/26/25 16:00 Cancel Dextrose 50 ml UD PRN IV 02/26/25 14:15 Diagnostic Test (Pha) 1 strip IQ4HR 02/26/25 16:00 UNV Dextrose 50 ml UD PRN IV 02/26/25 16:00 UNV Insulin Human Regular Q6HR SC 03/02/25 12:00 03/22/25 06:11 3 UNITS Pantoprazole Sodium 40 mg BID IV 03/08/25 22:00 03/22/25 10:05 40 MG Levothyroxine Sodium 50 mcg DAILY IV 03/09/25 10:00 03/22/25 10:05 50 MCG Lidocaine 1 patch DAILY TOP 03/12/25 10:00 03/22/25 10:06 1 PATCH Micafungin Sodium 100 mg/Sodium Chloride 100 ml @ 100 mls/hr DAILY IV 03/18/25 10:00 03/22/25 10:05 100 MLS/HR Acetaminophen 650 mg Q6HP PRN CA 03/18/25 10:00 Morphine Sulfate 4 mg Q4HPRN PRN IV 03/18/25 18:30 03/20/25 20:07 4 MG Phenylephrine HCl 250 ml @ 30 mls/hr Q8H20M IV 03/20/25 21:00 03/22/25 01:18 30 MLS/HR Vasopressin 20 units/Sodium Chloride 100 ml @ 9 mls/hr Q11H7M IV 03/20/25 23:45 03/22/25 00:05 9 MLS/HR Fat Emulsion Intravenous 100 ml/Sodium Acetate 40 meq/Magnesium Sulfate 14 meq/ Multivitamins 10 ml/Insulin Human Regular 5 units/ Amino Acids/ Dextrose/Purified Water 1,483.55 ml @ 62 mls/hr [id number] IV 03/21/25 22:00 03/22/25 21:59 03/21/25 22:00 62 MLS/HR Hydromorphone HCl 1 mg Q3HP PRN IV 03/21/25 14:15 03/22/25 10:08 1 MG Ceftriaxone Sodium/Dextrose 50 ml @ 50 mls/hr DAILY IV 03/22/25 10:00 03/22/25 11:30 50 MLS/HR Sodium Chloride 1,000 ml @ 75 mls/hr [id number] IV 03/21/25 14:15 03/22/25 00:04 75 MLS/HR Fat Emulsion Intravenous 100 ml/Potassium Phosphate 22 meq/ Magnesium Sulfate 14 meq/ Multivitamins 10 ml/Insulin Human Regular 5 units/ Amino Acids/ Dextrose/Purified Water 1,368.55 ml @ 57 mls/hr Q24H1M IV 03/22/25 22:00 03/23/25 21:59 laboratory and microbiology Laboratory Tests 03/22/25 02:50 Test 03/22/25 02:50 Range/Units Serum Glucose 145 H 74-106 mg/dL Problem List/Assessment/Plan Problem List/Assessment/Plan 01/14/25 afebrile, low dose BP support, received transfusion, I believe her decreased hematocrit is due to hemodilution. abdomen non distended, soft, wound clean and well approximated, drainage serous . remains intubated and sedated 01/16/25 ALKALOSIS, ABDOMEN NON DISTENDED, SOFT, DRAINAGE SEROUS, WOUND CLEAN AND WELL APPROXIMATED 01/17/25 improved, thrombocytopenia possibly made worse by Fluconazole,will DC, abdomen non distended, wound well approximated without infection, TATY drainage serous, CVP 6, good urine output. 01/18/25 abg reviewed, ,abdomen soft, non distended, TATY drainage clear serous, no bowel activity, febrile, urine output ok, continues with thrombocytopenia,pt and inr slightly elevated. prognosis grave. 01/20/25remains sedated on ventilator, abdomen soft, non distended, faint bowel sounds auscultated by nurse, wound clean and well approximated, TATY drainage clear serous. continues with thrombocytopenia, still behind on intravascular volume( BUN and Creatinine elevated), i would give more IV fluids and DC vancomycin. 01/25/25 afebrile, normotensive, wound clean and well approximated, TATY drainage serous, abdomen non distended, soft, gastrografin small bowel series shows non obstructed GI tract and no evidence of extravasation. It is OK to initiate enteric feedings. 01/29/25 16 DAYS POST OPERATIVELY TRHE TATY DRAINAGE WHICH HAD CONSISTENTLY BEEN SEROUS OR SERO SANGUINEOUS HAS BECOME "DIRTY" BROWNISH DISCOLORATION, HER WOUND IS CLEAN AND WELL APPROXIMATED AND HER ABDOMEN IS SOFT AND NON DISTENDED, CT SCAN SHOWS SO0ME FLUID AND ACCUMULATION OF FLUID AROUND THE SPLEEN, WILL REQUEST CT GUIDED ASPIRATION OF SAME, WILL ORDER IRRIGATION OF DRAINS. SHE SI AFEBRILE AND MAINTAINS NORMAL BLOOD PRESSURE, HER WBC IS NORMAL. 01/30/25 improved, awake, being weaned off vent. abdomen non distended, non tender, taty drainage clearing with irrigation 02/02/25clinically unchanged, gastrografin small bowel series reported and normal, no extravasation reported, will order a follow [facility] KUB for tomorrow AM 02/03/25 PATIENT HAD A GASTROGRAFIN SMALL BOWEL SERIES AND A FOLLOW UP KUB X RAYS NEITHER ONE OF WHICH SHOW EXTRAVASATION OF CONTRAST OR EVIDENCE OF FREE CONTRAST IN THE PERITONEAL CAVITY. THERE IS HOWEVER VISCOUS, BROWNISH FLUID DRAINING VIA BOTH TATY DRAINS AND THROUGH INFRAUMBILICAL PORTION OF MIDLINE WOUND, I REMOVED THE RICHIE FROM THE 3 CM SECTION OF THE INFRAUMBILICAL WOUND AND EVACUATED ABOUT 30 CC OF THIS FLUID AND INSTRUCTED THE NURSE TO PLACE A STOMA APPLIANCE ON THIS OPENING. 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 TODAY HER WBC IS ELEVATED, ABDOMEN CONTINUES TO BE NON DISTENDED, SOFT, BUT SHE DOES HAVE SLIGHT TENDERNESS IN THE PERIUMBILICAL AREA. I WILL TREAT THIS EXPECTANTLY FORM THE TIME BEING IN THE HOPE THAT THIS IS A "CONTROLLED" FISTULA AND HOPEFUL WILL HEAL SPONTANEOUSLY WITH NPO AND NUTRITIONAL SUPPORT. WILL WATCH CLOSELY, AFTER A FEW DAYS WILL GET A FISTULOGRAM TO PIN POINT THE ENTERIC ORIGIN OF THE FISTULIZATION. CONTINUE NGT SUCTION AND DRAIN IRRIGATION ORDERED02/05/25 02/05/25 remains sedated and intubated?ventilated, abdomen non distended soft, wound vac in place. TATY drainage serosanguineous 02/08/25 EXTUBATED, GOOD INSPIRATORY EFFORT, BP NML WITHOUT PRESSOR SUPPORT, ABDOMEN SOFT, NON DISTENDED, APPROPRIATELY TENDER, LABS REVIEWED. NO CHANGES TODAY OTHER THAN ALLOW ICE CHIPS PO. WILL ORDER GASTROGRAFIN SMALL BOWEL FOLLOWTHROUGH FOR Friday02/09/25 awake cooperative, wound vac in place, abdomen soft, non distended, appropriately tender, TATY drainage brownish discoloration, will irrigate, her WBC is normal and she is afebrile and normotensive. gastrografin tomorrow 02/10/25 AWAKE,COMFORTABLE, DENIES PAIN, ABDOMEN NON DISTENDED APPROPRIATELY TENDER, WOUND CLEAN AND WELL APPROXIMATED, DRAINS BEING IRRIGATED, LABS OK, GOOD URINE OUTPUT. "SURGICALLY" STABLE 02/11/25 feels well, passing flatus. is hungry, abdomen soft non distended, drainage clearing with irrigation, will wait for Gastrografin small bowel series to be completed, if normal will start po clear liquids 02/12/25 no nausea, change in TATY drainage colort, appears to contaIN, BILE, WILL DC po CLEAR LIQUIDS, CONTINUE ICE CGHIPS, SEND DRAin fluid for amylase and bilirubin, 02/13/25 states she feels well, abdomen non tender, non distended, wound clean and well approximated. drainage slightly clearer, keep npo for now, needs to resume TPN 02/14/25 PATIENT C/O BEING COLD BUT HAS NO PAIN, DRAINAGE SEEMS TO BE CLEARING, SHE HAD A BOWEL MOVEMENTS, ABDOMEN IS SOFT AND NON TENDER, NON DISTENDED, WOUND IS CLEAN AND WELL APPROXIMATED, WILL CONTINUE NPO STATUS AMYLASE ON TATY DRAINAGE FLUID IS GOING TO TAKE SEVERAL DAYS TO BECOME AVAILABLE. CONTINUE TPN 02/16/25 DENIES PAIN,STATES SHE FEELS BETTER, WOUND VAC IN PLACE, ABDOMEN NON TENDER,NON DISTENDED, TATY DRAINAGE SMALL TO MODERATE , WILL CONTINUE IRRIGATING DRAINS, WILL REQUEST GI CONSULT TO CONSIDER ENDOSCOPY. WBC NL,H/H STABLE , ALBUMIN STILL VERY LOW. , 02/17/25 CT SCAN REVIEWED, I SUSPECT THERE IS A SMALL LEAK FROM THE APPEARANCE OF IMAGING ALTHOUGH RADIOLOGIST RECOMMENDED REPEAT CT SCAN (ORDERED). THE DRAINAGE IS SMALL AMOUNT BUT NOW IT IS WITH AN ODOR, I WILL RE INSERT NGT TO ATTEMPT DECREASING THE GASTRIC CONTENTS. ABDOMEN IS SOFT, APPROPRIATELY TENDER, WOUND VAC IN PLACE 02/18/25 AFEBRILE, NORMOTENSIVE4, WBC NL, ALL IMAGING NEGATIVE, ANGIOGRAM SHOWS NO EVIDENCE OF HYPOPERFUSION, CONTRAST AND NON CONTRAST CT SCAN FAILED TO SHOW ANY EVIDENCE OF EXTRAVASATION, THE DRAINAGE CONTINUES TO BE BROWNISH DISCOLORED AND FOULS SMELLING, EXPLAINED TO PT'S SON THAT I HAVE NO EVIDENCE OF ANY GI LEAKAGE, WILL GET A GASTROGRAFIN ENEMA ON FRIDAY, I AM TRYING TO REFRAIN FROM OPERATING ON THE FRAIL ELDERLY PATIENT FOR THE THIRD TIME, SHE WILL NOT TOLERATE ANOTHYER OPERATION WELL. HER ALBUMIN REMAINS VERY LOW.WOUND VAC OK 02/19/25 feels ok,c/o being cold, abdomen soft. non distended, minimally tender, drainage seems to be little less, labs ok, continue as is 02/22/25 she feels well, abdomen is non tender, soft and non distended, drainage slightly less in volume, still discolored,gastrografin enema reviewed by me ( no radiologist/s interpretation available), she has not evacuated the gastrografin according to nurse. 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 will proceed with operation on 02/25/25 at 0715 AM. 02/27/25 SLIGHT IMPROVEMENT, ABDOMEN SOFT, NON DISTENDED, STOMA VIABLE WITHOUT FUNCTION, OK TO TRY GETTING OFF VENTILATOR. 03/01/25 extubated, conversant,oriented, abdomen non distended, appropriately tender, wound clean ans well approximated, drainage serous, stoma viable and with minimal liquid,no gas. will sips of water and ice po 03/02/25 awake comfortable, denies pain, abdomen appropriately tender, wound vac in place, afebrile, normotensive, drainage serosanguineous, cbc stable, stoma viable and with minimal output will resume irrigation of drain 03/03/25 awake ,cooperative, good inspiratory effort, afebrile, normotensive, wound covered with wound vac, drainage serous but cloudy(cultures ordered) abdomen non tender, stoma viable with minimal output. will order gastrografin ugi with small bowel follow throught for tomorow 03/04/25 vital signs stable, good urine output, wound vac ok, abdomen non tender. Xray pending 03/05/25 UGI X RAY SHOWS A NEW AREA OF LEAK,BEING ADEQUATELY DRAINED BY THE TATY DRAIN WHICH IS ADJACENT TO IT, HER ABDOMEN IS NON TENDER. WILL RESUME STRICT NPO STATUS, KEEP NGT TO CONTINUOUS SUCTION, I HAVE CALLED HER SON ILIANA AND EXPLAINED THAT PROBABLY THE INTESTINAL WALL IS NOT HEALING WHENEVER WE PLACE SUTURE AT SITES OF ANASTOMOSES. HER ABDOMEN IS NON TENDER, I WILL TREAT THIS CONSERVATIVELY FOR SOME TIME TO SEE IF THE LEAK MAY SHOW SOME EVIDENCE OF HEALING. YESTERDAY THERE WAS 500 CC OF TATY DRAINAGE. HER ALBUMIN LEVEL IS SLOWLY IMPROVING BUT STILL REMAINS LOW. IT APPEARS THAT THE SUTURES IN HER INTESTINAL ANASTOMOSES HOLD FOR ABOUT A WEEK AND THEN BREAK DOWN. (DRAINAGE TURNED FROM SEROSANGUINEOUS TO GREENISH YESTERDAY. 03/06/25 drainage slightly less in volume, still enteric contents abdomen softn and non tender, non distended. wound vac changed, wound healing, no chjanges for now. discussed with family. 03/08/29 feels better, no pain, abdomen soft and non tender, drainage minimally less, family at bedside, answered questions 03/09/25 son at bedside, patient feels "well" wants to eat, explained that we need to keep her intestine at rest' afebrile, normotensive, drainage less, abdomen non tender, wound vac in p-lace wbc normal today. h/h stable/ continue npo aqnd ngt there is stool in stoma appliance 03/13/25 SLOW IMPROBVEMENT,ABDOMEN NON TENDER, NON DISTENDED, SOME STOOL IN STOMA, DRAINAGE SLIGHTLY LESS VOLUME, CONTINUE IS, NEEDS MOR IV FLUYID (ORDERS GIVEN) 03/15/25 stable, having the NG tube clamped did not cause distress nor did it result in increase of the TATY drainage ,I have therefore removed the NG tube, she does need to remain NPO however, if there are no major changes in her condition in the next 48 hours she would be stable to transfer to a SNF on TPN, I will gladly make "house calls " on here at the facility . abdomen remains non distended, non tender, wound awaiting a wound vac but it is without evidence of infection, I have digitally probed the styoma which has inverted on itself, it is patent ancd without stenosis below the skin level. 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 drainage unchanged 03/22/25 doing well ,drainag clear, stoma viable and functioning, abdomen soft and appropriately tender, wound vac, labs reviewed. Plan discussed with: Patient Dietary Evaluation Review Comments: Nutrition Recommendation: 1) TPN to meet at least 75% estimated needs within 7 days 2) Monitor NPO status, lab values, wt trend, I/O Expected Outcomes/Goals: To meet >75% estimated needs Lab values to improve Fu 2-3 days Is there a minimum of two crit: Yes MELVA RAMESH MD Mar 22, 2025 12:02
[2025-03-22 12:26] LABS: Hemoglobin 7.9 g/dL (12.2-16.2)
[2025-03-22 12:29] LABS: Hematocrit 24.9 % (36.0-46.0)
[2025-03-22] MEDS: ALBUMIN 25% 50 ML IV SCH (13:33)
[2025-03-22] MEDS ORDERED: KETOROLAC TROMETH 30 MG/ML 1ML VIAL IV PRN (14:00)
[2025-03-22] MEDS: TPN PER PHARMACY IV NR (21:28)
[2025-03-23] VITALS (82 sets, daily range): BP systolic 126–186; BP diastolic 63–128; PULSE 103–128; RESP 11–23; TEMP 96.8–98.5; O2SAT 94–100
[2025-03-23 03:26] LABS: Hematocrit 30.7 % (36.0-46.0); Hemoglobin 10.3 g/dL (12.2-16.2); Mean Corpuscular Hemoglobin 33.0 pg (28.0-32.0); Mean Corpuscular Volume 98.4 fL (80.0-100.0); Nucleated Red Blood Cells % 0.2 %
[2025-03-23 03:45] LABS: Anion Gap 13 (5-15); BUN/Creatinine Ratio 58.9 (10.0-20.0); Calcium 9.7 mg/dL (8.7-10.4); Carbon Dioxide 24 mmol/L (20-31); Magnesium 2.0 mg/dL (1.6-2.6)
[2025-03-23 03:46] LABS: Alanine Aminotransferase 95 U/L (7-40); Albumin 2.0 g/dL (3.2-4.8); Alkaline Phosphatase 136 U/L (46-116); Bilirubin, Total 6.4 mg/dL (0.2-1.0); Blood Urea Nitrogen 53 mg/dL (9-23); Chloride 112 mmol/L (98-107); Glucose 114 mg/dL (74-106); Potassium 2.9 mmol/L (3.5-5.1); Sodium 149 mmol/L (136-145); Total Protein 4.5 g/dL (5.7-8.2)
[2025-03-23] MEDS: POTASSIUM CHL 20MEQ/100ML 100 ML IV SCH (05:45)
[2025-03-23] MEDS: SOD CHL 0.45% 1,000 ML IV SCH (11:09)
--- NOTE | 2025-03-23 11:23 | DVH ---
CHEST RADIOGRAPH Indication: rule out pneumonia Technique: Single frontal view of the chest was obtained Comparison: XY CHEST PORTABLE on DOS: 03/21/25, XY CHEST XRAY 1 VIEW on DOS: 03/20/25, XY CHEST XRAY 1 VIEW on DOS: 03/09/25, XY CHEST XRAY 1 VIEW on DOS: 03/04/25, XY CHEST XRAY 1 VIEW on DOS: 03/02/25, XY CHEST PORTABLE on DOS: 03/21/25 FINDINGS: Lines and Tubes: Enteric catheter and right PICC in satisfactory position. Lungs: Increased interstitial prominence. This may represent pulmonary vascular congestion and/or viral pneumonia. Lower lung volumes. Pleura: No effusion.No pneumothorax. Cardiomediastinal contours: Cardiomegaly. Bones: Unremarkable IMPRESSION: 1. Enteric catheter in satisfactory position.
[2025-03-23] MEDS: POTASSIUM PHOSPHATE 26.4 MEQ in SODIUM CHL 0.9% 100 ML IV ONE (13:53)
[2025-03-23] MEDS: POTASSIUM CHL 20MEQ/100ML 100 ML IV ONE (13:58)
--- NOTE | 2025-03-23 17:29 | DVHPNRES ---
Progress Note Date Seen: Mar 23, 2025 Resident Creating Document: ASHLEY TREJO RESIDENT Has the PT tested + for MRSA If YES, has PT been informed?: No Medical Necessity Reason Pt with a Central, PICC or Fol: Yes The following are medically ne: PICC Line, Leach Catheter Reason for leach catheter: Strict I&O Subjective Review of Systems This is a 80-year-old lady with past medical history of hypertension, AFib (on Eliquis), diabetes type 2, CKD, came to the hospital due to abdominal pain, and constipation. Admitted on 01/13/2025. Found to have peritonitis due to bowel perforation, and underwent emergent laparotomy with subsequent resection of perforated small bowel and enteroenterostomy. Due to abnormal CARMEN drainage, second exploratory laparotomy performed on 02/04 and found to have perforation near to previous perforation area, underwent resection of area with subsequent anastomosis of proximal jejunal loops. 03/12/2025: Patient seen in the ICU. Continued to be NPO. On 2 L oxygen via nasal cannula. Wound VAC is mild functional, yellowish drainage from incision site, CARMEN drain is functional, draining greenish bile. No signs of fever. No any other night complaints. 03/13/2025: Patient seen and ICU. Patient is to be continued on NPO. Is on room air, wound care to be done, wet-to-dry. Surgery following, low intermittent suction of NG tube, 130 mL of greenish fluid from CARMEN drain, 50 mL from NG tube noted. 03/14/2025: Patient seen in ICU. Patient is to be continued on NPO, is on room air, wound care is wet-to-dry, patient is getting TPN, had 145 removal of greenish drainage from CARMEN drain. Patient has nonblanching redness on sacrum. Today she came complains of 8/10 pain in the abdomen and back. NG tube was clamped. Following surgery. 03/15/25: patient seen in the ICU. She is still NPO. on room air, wound cares were too dry, NG tube removed. Still greenish drainage from CARMEN drain, blackish stool in the colostomy bag. She still complains of pain in the abdomen, back. PT is able to get her to wheelchair. surgery following. 03/16/2025: Patient seen in the ICU. She is still NPO, on TPN, on room air wound care is wet to dry NG tube was removed yesterday. There is blackish stool, blood seen in the colostomy bag today. She still complains of abdominal pain, there was greenish drainage in the wound. Foleys changed, aspirate culture ordered, 03/17/25: Patient seen in the ICU. Patient is still NPO, on TPN, on room air, wound VAC needs component. 80 mL from CARMEN drain. Second opinion by Dr. Rivera to be given. Micafungin added, morphine sulfate changed to 2 mg IV q.4 PRN. 03/18/25: Patient seen in ICU. Patient is still NPO, on TPN, on room air, CARMEN drain in place. Second opinion to be given by Dr. Rivera. 03/19/25: Patient is seen in ICU p.o. continue be NPO on TPN. Plan for laparotomy procedure tomorrow a.m.. No any other complaints. 03/20/2025: Patient seen in the ICU, laparotomy was done today, patient is on 3 L nasal oxygen. Patient is drowsy, did not complain of any pain. Patient is on Levophed,. NG Tube in place, CARMEN drains in place. 03/21/25: Patient seen in ICU, laparotomy was done yesterday, patient is on 3 L nasal oxygen, patient complains of 8/10 pain, is on Levophed, TPN. NG tube with low intermittent suction. Patient has a CARMEN drain with 30 mL serosanguineous bloody discharge. wound VAC in place. Lactic acid is trending down, WBC count trending down, patient was given 1 PRBC and hemoglobin is stable at 8.7. Patient antibiotics were switched from meropenem to ceftriaxone. Patient is on new 40, vasopressin 0.03 03/22/2025: Patient seen in ICU, patient is on room air, complains of pain, wound VAC to be changed, 1 PRBC was given due to low hemoglobin, H and H was checked anf Hb is7.9. 03/23/25: Patient seem in ICU, patient is on room air, complains of 8/10, wound VAC changed, Hb stable, torodol once given, patient today was confused. tsh level decreased. Objective vital signs Vital Sign Date Time Temp Pulse Resp B/P (MAP) Pulse Ox O2 Delivery O2 Flow Rate FiO2 03/23/25 17:19 121 24 170/88 03/23/25 16:01 99 03/23/25 16:00 98.5 98.5 03/23/25 10:33 Nasal Cannula 2.0 03/23/25 08:00 28 Total Intake and Output 03/22/25 03/22/25 03/23/25 15:00 23:00 07:00 Intake Total 1246 ml 1386 ml 1056 ml Output Total 1120 ml 1960 ml Balance 1246 ml 266 ml -904 ml medications Current Medications Medications Dose Ordered Sig/Isaura Route Start Time Stop Time Status Last Admin Dose Admin Cefazolin Sodium 50 ml @ 100 mls/hr Q8HR IV 01/13/25 14:00 UNV Vasopressin 20 units/Sodium Chloride 100 ml @ 9 mls/hr Q11H7M IV 01/13/25 18:45 UNV Potassium Chloride 100 ml @ 50 mls/hr Q2H IV 01/16/25 12:45 01/16/25 18:44 UNV Vancomycin HCl 100 ml @ 100 mls/hr DAILY@1200 IV 01/20/25 12:00 UNV Amino Acids 0 ml @ 0 mls/hr PER PHARMACY IV 02/13/25 10:45 Ondansetron HCl 4 mg Q4HPRN PRN IV 02/21/25 09:30 03/12/25 17:08 4 MG Multi-Ingredient Ointment 1 applic DAILY TOP 02/23/25 10:00 03/23/25 11:10 1 APPLIC Diagnostic Test (Pha) 1 strip Q4HR 02/26/25 16:00 Cancel Dextrose 50 ml UD PRN IV 02/26/25 14:15 Diagnostic Test (Pha) 1 strip IQ4HR 02/26/25 16:00 UNV Dextrose 50 ml UD PRN IV 02/26/25 16:00 UNV Insulin Human Regular Q6HR SC 03/02/25 12:00 03/23/25 13:54 2 UNITS Pantoprazole Sodium 40 mg BID IV 03/08/25 22:00 03/23/25 10:45 40 MG Levothyroxine Sodium 50 mcg DAILY IV 03/09/25 10:00 03/23/25 11:10 50 MCG Lidocaine 1 patch DAILY TOP 03/12/25 10:00 03/23/25 10:46 1 PATCH Micafungin Sodium 100 mg/Sodium Chloride 100 ml @ 100 mls/hr DAILY IV 03/18/25 10:00 03/23/25 10:46 100 MLS/HR Acetaminophen 650 mg Q6HP PRN HI 03/18/25 10:00 Hydromorphone HCl 1 mg Q3HP PRN IV 03/21/25 14:15 03/23/25 17:19 1 MG Ceftriaxone Sodium/Dextrose 50 ml @ 50 mls/hr DAILY IV 03/22/25 10:00 03/23/25 11:35 50 MLS/HR Fat Emulsion Intravenous 100 ml/Potassium Phosphate 22 meq/ Magnesium Sulfate 14 meq/ Multivitamins 10 ml/Insulin Human Regular 5 units/ Amino Acids/ Dextrose/Purified Water 1,368.55 ml @ 57 mls/hr Q24H1M IV 03/22/25 22:00 03/23/25 21:59 03/22/25 21:28 57 MLS/HR Fat Emulsion Intravenous 100 ml/Potassium Acetate 40 meq/ Potassium Phosphate 44 meq/ Magnesium Sulfate 16 meq/ Multivitamins 10 ml/Amino Acids/ Dextrose/Purified Water 1,194 ml @ 50 mls/hr [id number] IV 03/23/25 22:00 03/24/25 21:59 Sodium Chloride 1,000 ml @ 75 mls/hr [id number] IV 03/23/25 10:15 03/23/25 11:09 75 MLS/HR Examination Pt is lying on bed General Appearance: Alert and Oriented x2 HEENT: Atraumatic, Mucous membranes moist/pink Respiratory: Clear to auscultation, Normal air movement, No added sounds Cardiovascular: Regular rate, Normal S1, Normal S2, No murmurs Abdominal: Active bowel sounds, Soft, no distention, no tenderness, colostomy bag in place and 1 CARMEN drain with Serosanguineous bloody fluid Extremities: No pitting edema Skin: No Significant rash, except past surgical scars Neuro: more alert and oriented Nurse was there as employee benefits administrator during examination laboratory and microbiology Laboratory Tests 03/23/25 02:54 Test 03/23/25 02:54 Range/Units Serum Glucose 114 H 74-106 mg/dL Microbiology Date/Time Source Procedure Growth Status 03/20/25 22:15 Blood Blood Culture - Preliminary NO GROWTH AFTER 48 HOURS OF INCUBATION. Resulted 03/20/25 08:12 Peritoneal Fluid Gram Stain - Final Resulted 03/20/25 08:12 Peritoneal Fluid Anaerobic Culture - Preliminary Resulted 03/20/25 08:12 Peritoneal Fluid Aerobic Culture - Preliminary Resulted 03/16/25 15:48 Urine - [place] Urine Culture - Final Yeast, not Zoe albicans Complete 02/25/25 11:48 Sputum Gram Stain - Final Complete 02/25/25 11:48 Sputum Respiratory Culture - Final Complete 01/13/25 17:10 Nose MRSA Screen - Final Complete Problem List/Assessment/Plan Problem List/Assessment/Plan Neurology # Chronic ischemic changes # Chronic Cortical atrophy - Head CT (01/29): Chronic microangiopathy and cortical atrophy. - reintubated on 02/25/25 during surgery # Extubated on 02/28 Cardiovascular # Septic shock secondary to hollow viscus perforation. # Paroxysmal atrial fibrillation with a second-degree hypercoagulable state currently NSR # Chronic diastolic heart failure with preserved EF 65% # Hypertension. - Echocardiogram (01/15): Normal LV EF (65%), mild LVH, mild LV diastolic dysfunction. - Chest X-ray: Bibasilar atelectasis. - ZEFERINO?DS?-VASc score >5 - cardiology on board - initially on Lovenox therapeutic but Dc'd due to low hemoglobin - Labetalol PRN Pulmonary # Acute hypoxic respiratory failure secondary to bilateral pleural effusion/pneumonia s/p re-intubation, status post extubation 02/28 - monitor with daily CXR - Sputum culture 01/29 Presumptive Zoe albicans and : negative - Reintubated on 02/25. - Chest Physiotherapy ongoing. - extubated today Gastrointestinal / Liver # Acute Bacterial Peritonitis due to small bowel perforation vs Perisplenic abscess. s/p multiple laparotomies # Transaminitis secondary to shock. # Anion gap metabolic acidosis due to bowel ischemia and lactic acidosis - CT abdomen/pelvis (02/16): Pneumoperitoneum, extraluminal contrast, perisplenic/subdiaphragmatic collection (7.1 1.1 cm). - Small bowel series (02/11): Normal. - Gastrografin (02/21): [place]-enteric fistula, contrast leak from distal transverse colon. Procedures: - First laparotomy (01/13): Resection of perforated small bowel, enteroenterostomy. - Second laparotomy (02/04): Resection near previous perforation, jejunal anastomosis. - Third laparotomy (02/25): Resection of distal ileum, end-to-end anastomosis, ileostomy. - fourth laparotomy(03/20): Cultures: - Peritoneal fluid (01/13): E. coli, Klebsiella pneumoniae (sensitive to meropenem). - Peritoneal fluid (02/17): E. coli, Stenotrophomonas maltophilia. - Aspirate Showed(03/02): VRE - IR-guided pigtail drain placed; drained 50 cc purulent fluid. - CARMEN drains placed in 4 quadrants initially and now patient has only 1 CARMEN drain - Initially NPO, TPN initiated. - NG tube placed. - IV antimicrobials meropenem and micafungin - Initially patient is on Levofloxacin, Flagyl (02/03); Vancomycin and Meropenem (); Meropenem (); Vancomycin () then eventually switched to above antimicrobials - Started Daptomycin (03/08), Bactrim stopped (03/08), stopped daptomycin - added micafungin - (03/17) - 2nd opinion to be given by Dr. Rivera -03/21- meropenem to ceftriaxone -Gastrografin scan(03/05) showed Contrast extravasation is seen in the proximal small bowel, possibly left sided jejunum near the surgical drain can be seen with a leak. -patient kept NPO - NG tube removed (03/15) Genitourinary / Kidney # ISRRAEL likely secondary to shock/volume depletion- resolved - Nephrology consulted for ISRRAEL. Endocrine # Hypothyroidism: TSH 42.29, low T4 # Type 2 diabetes mellitus: HbA1c 8.2%.- # Episodes of hypoglycemia. # Hypothyroidism - continuously monitoring blood glucose and on ISS - Started on Levothyroxine 50 daily Metabolic Hypokalemia. Hyperkalemia. Hyponatremia: D5W at 75 mL/hr per nephrology. Hypophosphatemia: given IV phosphate Nutrition: Severe protein malnutrition. Hematology # Acute on chronic anemia (hemodilution/post-surgical). # Severe thrombocytopenia, HIT # Acute DVT of right upper extremity. - Ultrasound (01/17): Partial thrombus in right internal jugular and cephalic veins. - hemoglobin today 6.9, transfused 1 more unit of PRBC 02/28 - Transfused total 8 units PRBC, 2 platelet units. - continuously monitor H&H - hold blood thinners Musculoskeletal / Skin # Rib fracture due to fall. Nutrition: TPN initiated. Bowel Regimen: As needed. GI Prophylaxis: Pantoprazole bid DVT Prophylaxis: Lovenox (held/ Dc'd due to low hemoglobin). Lines / Tubes / Devices Airway: Intubated on 01/14, extubated on 02/07, reintubated on 02/25 extubated 02/28 Vascular Access: PICC line placed in right upper thigh on 01/26. Drips: Dc'd pressors and sedatives. Urinary: Leach catheter placed on 01/14, exchanged on 02/14. Exchanged on 03/17. CARMEN drains in 1 quadrant. Goals of care addressed with patient's family members for more than 29 minutes: Full code status Care plan updated to the patient family Chris (son) on bedside and addressed all concerns Critical care time spent more than 61 minutes excluding procedures and including discussion with the family Case discussed with Dr. Galeana and RN Plan discussed with: Patient, Son My Orders My Orders Orders - ASHLEY TREJO Procedure Category Date Status Time Chest Xray 1 View XY 03/23/25 Resulted 10:35 Dietary Evaluation Review Comments: Nutrition Recommendation: 1) TPN to meet at least 75% estimated needs within 7 days 2) Monitor NPO status, lab values, wt trend, I/O Expected Outcomes/Goals: To meet >75% estimated needs Lab values to improve Fu 2-3 days Is there a minimum of two crit: Yes CC Plasma Assessment Blood Product Administration S: [id number] Date of Service: Mar 23, 2025 Billing Provider: ZBIGNIEW SELF MD Common Visit Codes: [id number] CARE 30-74 MIN ASHLEY TREJO Mar 23, 2025 17:29 ZBIGNIEW SELF MD Mar 24, 2025 12:30
[2025-03-23] MEDS: KETOROLAC TROMETH 30 MG/ML 1ML VIAL IV ONE (18:15)
[2025-03-23] MEDS: TPN PER PHARMACY IV NR (21:42)
[2025-03-23] MEDS ORDERED: PHENYLEPHRINE INJ 80 MG in SODIUM CHL 0.9% 242 ML IV SCH (22:45)
[2025-03-24] VITALS (35 sets, daily range): BP systolic 106–166; BP diastolic 52–102; PULSE 89–127; RESP 12–25; TEMP 96.8–100; O2SAT 96–100
[2025-03-24 03:54] LABS: Hematocrit 30.1 % (36.0-46.0); Hemoglobin 10.1 g/dL (12.2-16.2); Mean Corpuscular Hemoglobin 34.5 pg (28.0-32.0); Mean Corpuscular Volume 103.3 fL (80.0-100.0); Nucleated Red Blood Cells % 1.1 %
[2025-03-24 04:00] LABS: Anion Gap 12 (5-15); Calcium 9.4 mg/dL (8.7-10.4); Carbon Dioxide 22 mmol/L (20-31); Magnesium 2.1 mg/dL (1.6-2.6); Potassium 3.9 mmol/L (3.5-5.1)
[2025-03-24 04:06] LABS: Alanine Aminotransferase 87 U/L (7-40); Albumin 1.8 g/dL (3.2-4.8); Alkaline Phosphatase 146 U/L (46-116); Bilirubin, Total 10.1 mg/dL (0.2-1.0); Blood Urea Nitrogen 53 mg/dL (9-23); Chloride 113 mmol/L (98-107); Glucose 155 mg/dL (74-106); Sodium 147 mmol/L (136-145)
[2025-03-24 04:08] LABS: BUN/Creatinine Ratio 61.6 (10.0-20.0)
[2025-03-24 04:16] LABS: Total Protein 4.3 g/dL (5.7-8.2)
--- NOTE | 2025-03-24 08:58 | CONS ---
Pharmacy Clinical Information: Called Dr. Stephens regarding the amount of lipid and high bilirubin level. E xplained to her that literature recommends to not exceed 1g/kg/d for lipid. Based on the patient's weight, it would be no more than 68.1g of lipid. The patient is receiving lipid 20% 100ml, which is 20g, well below the threshold. However, we both agreed to further decrease the lipid to 50ml. She said the team did not want to switch TPN to clinimix still MACKENZIE THAKKAR [facility] RESIDENT Mar 24, 2025 08:58
[2025-03-24] MEDS: KETOROLAC TROMETH 30 MG/ML 1ML VIAL IV ONE (13:09)
--- NOTE | 2025-03-24 13:57 | MEDREC ---
[facility] Intervention Section I [facility] Intervention: Review courses of therapy (Please consider using antibiotics that are susceptible to the aspirate culture. Peritoneal fluid cx results: E. faecium, VRE. Susceptible to dapto or linezolid; do not recommend linezolid due to plt= 72 and falling.) PRICILA MCCARTHY PHARMACIST Mar 24, 2025 13:57
--- NOTE | 2025-03-24 14:30 | DVHPN2 ---
Subjective Date Seen: Mar 24, 2025 Post op day Post op day: 0 Objective Vitals Vital Sign Date Time Temp Pulse Resp B/P (MAP) Pulse Ox O2 Delivery O2 Flow Rate FiO2 03/24/25 12:00 124 22 144/72 (96) 99 03/24/25 09:00 100.0 100.0 03/23/25 20:00 Nasal Cannula* 2 28 Total Intake and Output 03/23/25 03/23/25 03/24/25 15:00 23:00 07:00 Intake Total 1573.334 ml 1002.667 ml 1100 ml Output Total 1170 ml 750 ml Balance 1573.334 ml -167.333 ml 350 ml Medications Current Medications Medications Dose Ordered Sig/Isaura Route Start Time Stop Time Status Last Admin Dose Admin Cefazolin Sodium 50 ml @ 100 mls/hr Q8HR IV 01/13/25 14:00 UNV Vasopressin 20 units/Sodium Chloride 100 ml @ 9 mls/hr Q11H7M IV 01/13/25 18:45 UNV Potassium Chloride 100 ml @ 50 mls/hr Q2H IV 01/16/25 12:45 01/16/25 18:44 UNV Vancomycin HCl 100 ml @ 100 mls/hr DAILY@1200 IV 01/20/25 12:00 UNV Amino Acids 0 ml @ 0 mls/hr PER PHARMACY IV 02/13/25 10:45 Ondansetron HCl 4 mg Q4HPRN PRN IV 02/21/25 09:30 03/12/25 17:08 4 MG Multi-Ingredient Ointment 1 applic DAILY TOP 02/23/25 10:00 03/24/25 12:48 1 APPLIC Diagnostic Test (Pha) 1 strip Q4HR 02/26/25 16:00 Cancel Dextrose 50 ml UD PRN IV 02/26/25 14:15 Diagnostic Test (Pha) 1 strip IQ4HR 02/26/25 16:00 UNV Dextrose 50 ml UD PRN IV 02/26/25 16:00 UNV Insulin Human Regular Q6HR SC 03/02/25 12:00 03/24/25 06:52 2 UNITS Pantoprazole Sodium 40 mg BID IV 03/08/25 22:00 03/24/25 12:27 40 MG Levothyroxine Sodium 50 mcg DAILY IV 03/09/25 10:00 03/24/25 12:32 50 MCG Lidocaine 1 patch DAILY TOP 03/12/25 10:00 03/24/25 12:48 1 PATCH Micafungin Sodium 100 mg/Sodium Chloride 100 ml @ 100 mls/hr DAILY IV 03/18/25 10:00 03/24/25 13:43 100 MLS/HR Acetaminophen 650 mg Q6HP PRN NC 03/18/25 10:00 Ceftriaxone Sodium/Dextrose 50 ml @ 50 mls/hr DAILY IV 03/22/25 10:00 03/24/25 12:37 50 MLS/HR Fat Emulsion Intravenous 100 ml/Potassium Acetate 40 meq/ Potassium Phosphate 44 meq/ Magnesium Sulfate 16 meq/ Multivitamins 10 ml/Amino Acids/ Dextrose/Purified Water 1,194 ml @ 50 mls/hr [id number] IV 03/23/25 22:00 03/24/25 21:59 03/23/25 21:42 50 MLS/HR Sodium Chloride 1,000 ml @ 75 mls/hr [id number] IV 03/23/25 10:15 03/24/25 12:45 75 MLS/HR Phenylephrine HCl 80 mg/Sodium Chloride 250 ml @ 7.5 mls/hr Q24H IV 03/23/25 22:45 UNV Fat Emulsion Intravenous 50 ml/ Potassium Acetate 80 meq/Potassium Phosphate 22 meq/ Magnesium Sulfate 16 meq/ Multivitamins 10 ml/Amino Acids/ Dextrose/Purified Water 1,109 ml @ 46 mls/hr Q24H7M IV 03/24/25 22:00 03/25/25 21:59 Hydromorphone HCl 0.5 mg Q3HP PRN IV 03/24/25 12:30 General: Normal Head/Eyes: Normal ENT: Normal Neck: Normal Lungs: Normal, Normal inspection Cardiovascular: Normal, Regular rate and rhythm Abdominal: Normal, Soft Labs and Microbiology Laboratory Tests 03/24/25 02:42 Test 03/24/25 02:42 Range/Units Serum Glucose 155 H 74-106 mg/dL Ass/Plan Labs and/or images reviewed: Labs reviewed by me, Image(s) reviewed by me Problem List Neurology # Chronic ischemic changes # Chronic Cortical atrophy - Head CT (01/29): Chronic microangiopathy and cortical atrophy. - reintubated on 02/25/25 during surgery # Extubated on 02/28 Cardiovascular # Septic shock secondary to hollow viscus perforation. # Paroxysmal atrial fibrillation with a second-degree hypercoagulable state currently NSR # Chronic diastolic heart failure with preserved EF 65% # Hypertension. - Echocardiogram (01/15): Normal LV EF (65%), mild LVH, mild LV diastolic dysfunction. - Chest X-ray: Bibasilar atelectasis. - ZEFERINO?DS?-VASc score >5 - cardiology on board - initially on Lovenox therapeutic but Dc'd due to low hemoglobin - Labetalol PRN Pulmonary # Acute hypoxic respiratory failure secondary to bilateral pleural effusion/pneumonia s/p re-intubation, status post extubation 02/28 - monitor with daily CXR - Sputum culture 01/29 Presumptive Zoe albicans and : negative - Reintubated on 02/25. - Chest Physiotherapy ongoing. - extubated today Gastrointestinal / Liver # Acute Bacterial Peritonitis due to small bowel perforation vs Perisplenic abscess. s/p multiple laparotomies # Transaminitis secondary to shock. # Anion gap metabolic acidosis due to bowel ischemia and lactic acidosis - CT abdomen/pelvis (02/16): Pneumoperitoneum, extraluminal contrast, perisplenic/subdiaphragmatic collection (7.1 1.1 cm). - Small bowel series (02/11): Normal. 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 Procedures: - First laparotomy (01/13): Resection of perforated small bowel, enteroenterostomy. - Second laparotomy (02/04): Resection near previous perforation, jejunal anastomosis. - Third laparotomy (02/25): Resection of distal ileum, end-to-end anastomosis, ileostomy. - fourth laparotomy(03/20): Cultures: - Peritoneal fluid (01/13): E. coli, Klebsiella pneumoniae (sensitive to meropenem). - Peritoneal fluid (02/17): E. coli, Stenotrophomonas maltophilia. - Aspirate Showed(03/02): VRE - IR-guided pigtail drain placed; drained 50 cc purulent fluid. - CARMEN drains placed in 4 quadrants initially and now patient has only 1 CARMEN drain - Initially NPO, TPN initiated. - NG tube placed. - IV antimicrobials meropenem and micafungin - Initially patient is on Levofloxacin, Flagyl (02/03); Vancomycin and Meropenem (); Meropenem (); Vancomycin () then eventually switched to above antimicrobials - Started Daptomycin (03/08), Bactrim stopped (03/08), stopped daptomycin - added micafungin - (03/17) - 2nd opinion to be given by Dr. Rivera -03/21- meropenem to ceftriaxone -Gastrografin scan(03/05) showed Contrast extravasation is seen in the proximal small bowel, possibly left sided jejunum near the surgical drain can be seen with a leak. -patient kept NPO - NG tube removed (03/15) Genitourinary / Kidney # ISRRAEL likely secondary to shock/volume depletion- resolved - Nephrology consulted for ISRRAEL. Endocrine # Hypothyroidism: TSH 42.29, low T4 # Type 2 diabetes mellitus: HbA1c 8.2%.- # Episodes of hypoglycemia. # Hypothyroidism - continuously monitoring blood glucose and on ISS - Started on Levothyroxine 50 daily Metabolic Hypokalemia. Hyperkalemia. Hyponatremia: D5W at 75 mL/hr per nephrology. Hypophosphatemia: given IV phosphate Nutrition: Severe protein malnutrition. Hematology # Acute on chronic anemia (hemodilution/post-surgical). # Severe thrombocytopenia, HIT # Acute DVT of right upper extremity. - Ultrasound (01/17): Partial thrombus in right internal jugular and cephalic veins. - hemoglobin today 6.9, transfused 1 more unit of PRBC 02/28 - Transfused total 8 units PRBC, 2 platelet units. - continuously monitor H&H - hold blood thinners Musculoskeletal / Skin # Rib fracture due to fall. Nutrition: TPN initiated. Bowel Regimen: As needed. GI Prophylaxis: Pantoprazole bid DVT Prophylaxis: Lovenox (held/ Dc'd due to low hemoglobin). Lines / Tubes / Devices Airway: Intubated on 01/14, extubated on 02/07, reintubated on 02/25 extubated 02/28 Vascular Access: PICC line placed in right upper thigh on 01/26. Drips: Dc'd pressors and sedatives. Urinary: Perez catheter placed on 01/14, exchanged on 02/14. Exchanged on 03/17. CARMEN drains in 1 quadrant. Goals of care addressed with patient's family members for more than 29 minutes: Full code status Care plan updated to the patient family Chris (son) on bedside and addressed all concerns Critical care time spent more than 61 minutes excluding procedures and including discussion with the family Case discussed with Dr. Galeana and propagator/Plan 01/19/25 s/p Exploratory laparotomy, lysis of adhesions, extensive lavage, resection of perforated small bowel, enteroenterostomy. unchanged from yesterday abdomen soft, non distended, CARMEN drainage clear serous, no bowel activity, febrile, urine output ok, continues with thrombocytopenia, Plan: continue current treatment discussed with Dr. Collins 01/21/2025 s/p Exploratory laparotomy, lysis of adhesions, extensive lavage, resection of perforated small bowel, enteroenterostomy. abdomen soft, non distended, CARMEN drainage clear serous, no bowel activity, urine output ok, platelet count improved albumin low off pressors blood culture , gram negative rods Plan: continue meropenem antibiotics albumin x3 discussed with Dr. Collins 01/22/2025 s/p Exploratory laparotomy, lysis of adhesions, extensive lavage, resection of perforated small bowel, enteroenterostomy. abdomen soft, non distended, CARMEN drainage clear serous, no bowel activity, urine output ok, platelet count improved blood culture , gram positive rods labs reviewed Plan: continue with current treatment discussed with Dr. Collins 01/24/2025 s/p Exploratory laparotomy, lysis of adhesions, extensive lavage, resection of perforated small bowel, enteroenterostomy. abdomen soft, non distended, CARMEN drainage clear serous, no bowel activity, urine output ok, platelet count improved labs reviewed Plan: small bowel series discussed with Dr. Collins 01/31/2025 s/p Exploratory laparotomy, lysis of adhesions, extensive lavage, resection of perforated small bowel, enteroenterostomy. abdomen soft, non distended, CARMEN drainage brownish, urine output ok labs reviewed Plan: small bowel series on Friday discussed with Dr. Collins 02/06/2025 Surgery: Exploratory laparotomy, lysis of adhesions, evacuation of pelvic and abdominal infection, resection of proximal jejunum, ileostomy, and jejunostomy. Post-Op Day: 2 Notes and labs were reviewed. Hemoglobin was 6.6 this morning, and a blood transfusion is currently being administered. Physical Exam: - Currently intubated and receiving fentanyl without other sedation. - Abdomen is soft and nondistended. - Minimal serosanguineous fluid is noted in the CARMEN drains. - The wound VAC has minimal sanguineous output. The wound is clean. Plan: - Continue current treatment. - Discussed case with Dr. Collins no changes to the plan of care at this time. 02/26/25 labs reviewed patient intubated , sedated abdomen soft, non distended wound vac stoma ok drain serous fluid Plan: continue current treatment 02/28/25 - Patient is intubated and responds to stimuli. no changes from yesterday : Abdomen is soft and non-distended. Stoma is pink. The wound is clean, dry, and intact with a wound vac in place. CARMEN drains have serous fluid output. - Investigations with results: Hemoglobin is low. Plan: - Treatment planned: Receiving one unit of packed red blood cells. CPAP today. Continue current treatment plan 03/10/2025 patient states feeling well : Abdomen is soft and non-distended. fecal matter in stoma bag . The wound is clean, dry, and intact with a wound vac in place. CARMEN drains have brown fluid. -WBC normal Plan: continue current treatment 03/11/25 patient states feeling well : Abdomen is soft and non-distended. fecal matter in stoma bag . The wound is clean, dry, and intact with a wound vac in place. CARMEN drain brown fluid. output over night 60cc -WBC normal Plan: continue current treatment 03/14/2025 patient states feeling well : Abdomen is soft and non-distended. fecal matter in stoma bag CARMEN drain out put decreased brown fluid. labs notes reviewed, discussed with Dr. Collins Plan: clamp NG tube NPO continue TPN 03/17/25 - Abdomen is soft, non-distended, and non-tender. - Surgical wound is clean, dry, and intact. - Mendel-Steele (CARMEN) drain output was 80 mL of brown fluid overnight. The output this morning was 10 mL. Assessment: - Plan: - To remain (NPO) and continue on total parenteral nutrition (TPN). - Cleared for transfer to a [place] [facility] facility per Dr. Collins. Please notify Dr. Collins of location patient will be transferred to. - Dr. Collins will make a house call in two weeks. 03/21/25 Complaints: - Reports abdominal pain this morning. Physical Exam: - Abdomen: Soft, non-tender. - Wounds: Abdominal wound with wound vac in place, with minimal drainage noted. CARMEN drain with serosanguinous fluid output. Assessment: - Acidosis, corrected (pH was 7.1). - Febrile overnight. - Post-transfusion status: Received one unit of blood overnight. - Currently on vasopressin. - Abdominal pain, for which pain medication was administered this morning. Plan: - Continue pain management. - Remain NPO. - Maintain NG tube on low continuous suction. - Wound vac to remain in place. 03/24/25 abdomen soft, non distended wound vac, wound clean dry CARMEN drain dark red colored fluid some stoma output Plan: continue current treatment Prognosis: Good, Poor Plan discussed with Dr. collins, family bedside Visit Coding Surgery Date of Service if different f: Mar 24, 2025 Billing Provider: MELVA COLLINS MD Surgery Visit Codes: [id number] INP/OBS CARE(HIGH) [employer] Mar 24, 2025 14:30
--- NOTE | 2025-03-24 14:57 | DVHPNRES ---
Progress Note Date Seen: Mar 24, 2025 Resident Creating Document: ASHLEY TREJO RESIDENT Has the PT tested + for MRSA If YES, has PT been informed?: No Medical Necessity Reason Pt with a Central, PICC or Fol: Yes The following are medically ne: PICC Line, Leach Catheter Reason for leach catheter: Strict I&O Subjective Review of Systems This is a 80-year-old lady with past medical history of hypertension, AFib (on Eliquis), diabetes type 2, CKD, came to the hospital due to abdominal pain, and constipation. Admitted on 01/13/2025. Found to have peritonitis due to bowel perforation, and underwent emergent laparotomy with subsequent resection of perforated small bowel and enteroenterostomy. Due to abnormal CARMEN drainage, second exploratory laparotomy performed on 02/04 and found to have perforation near to previous perforation area, underwent resection of area with subsequent anastomosis of proximal jejunal loops. 03/12/2025: Patient seen in the ICU. Continued to be NPO. On 2 L oxygen via nasal cannula. Wound VAC is mild functional, yellowish drainage from incision site, CARMEN drain is functional, draining greenish bile. No signs of fever. No any other night complaints. 03/13/2025: Patient seen and ICU. Patient is to be continued on NPO. Is on room air, wound care to be done, wet-to-dry. Surgery following, low intermittent suction of NG tube, 130 mL of greenish fluid from CARMEN drain, 50 mL from NG tube noted. 03/14/2025: Patient seen in ICU. Patient is to be continued on NPO, is on room air, wound care is wet-to-dry, patient is getting TPN, had 145 removal of greenish drainage from CARMEN drain. Patient has nonblanching redness on sacrum. Today she came complains of 8/10 pain in the abdomen and back. NG tube was clamped. Following surgery. 03/15/25: patient seen in the ICU. She is still NPO. on room air, wound cares were too dry, NG tube removed. Still greenish drainage from CARMEN drain, blackish stool in the colostomy bag. She still complains of pain in the abdomen, back. PT is able to get her to wheelchair. surgery following. 03/16/2025: Patient seen in the ICU. She is still NPO, on TPN, on room air wound care is wet to dry NG tube was removed yesterday. There is blackish stool, blood seen in the colostomy bag today. She still complains of abdominal pain, there was greenish drainage in the wound. Foleys changed, aspirate culture ordered, 03/17/25: Patient seen in the ICU. Patient is still NPO, on TPN, on room air, wound VAC needs component. 80 mL from CARMEN drain. Second opinion by Dr. Rivera to be given. Micafungin added, morphine sulfate changed to 2 mg IV q.4 PRN. 03/18/25: Patient seen in ICU. Patient is still NPO, on TPN, on room air, CARMEN drain in place. Second opinion to be given by Dr. Rivera. 03/19/25: Patient is seen in ICU p.o. continue be NPO on TPN. Plan for laparotomy procedure tomorrow a.m.. No any other complaints. 03/20/2025: Patient seen in the ICU, laparotomy was done today, patient is on 3 L nasal oxygen. Patient is drowsy, did not complain of any pain. Patient is on Levophed,. NG Tube in place, CARMEN drains in place. 03/21/25: Patient seen in ICU, laparotomy was done yesterday, patient is on 3 L nasal oxygen, patient complains of 8/10 pain, is on Levophed, TPN. NG tube with low intermittent suction. Patient has a CARMEN drain with 30 mL serosanguineous bloody discharge. wound VAC in place. Lactic acid is trending down, WBC count trending down, patient was given 1 PRBC and hemoglobin is stable at 8.7. Patient antibiotics were switched from meropenem to ceftriaxone. Patient is on new 40, vasopressin 0.03 03/22/2025: Patient seen in ICU, patient is on room air, complains of pain, wound VAC to be changed, 1 PRBC was given due to low hemoglobin, H and H was checked anf Hb is7.9. 03/23/25: Patient seem in ICU, patient is on room air, complains of 8/10, wound VAC changed, Hb stable, torodol once given, patient today was confused. tsh level decreased. 03/24/25: patient seen in ICU, patient is on Howard, complains of 8/10 pain. Toradol once was given patient is confused today. twenty-five mL bloody drainage from the CARMEN drain. Patient had episode of fever. TPN level of decreased to 50. PT eval to be done. Daptomycin added. Objective vital signs Vital Sign Date Time Temp Pulse Resp B/P (MAP) Pulse Ox O2 Delivery O2 Flow Rate FiO2 03/24/25 12:00 124 22 144/72 (96) 99 03/24/25 09:00 100.0 100.0 03/23/25 20:00 Nasal Cannula* 2 28 Total Intake and Output 03/23/25 03/23/25 03/24/25 15:00 23:00 07:00 Intake Total 1573.334 ml 1002.667 ml 1100 ml Output Total 1170 ml 750 ml Balance 1573.334 ml -167.333 ml 350 ml medications Current Medications Medications Dose Ordered Sig/Isaura Route Start Time Stop Time Status Last Admin Dose Admin Cefazolin Sodium 50 ml @ 100 mls/hr Q8HR IV 01/13/25 14:00 UNV Vasopressin 20 units/Sodium Chloride 100 ml @ 9 mls/hr Q11H7M IV 01/13/25 18:45 UNV Potassium Chloride 100 ml @ 50 mls/hr Q2H IV 01/16/25 12:45 01/16/25 18:44 UNV Vancomycin HCl 100 ml @ 100 mls/hr DAILY@1200 IV 01/20/25 12:00 UNV Amino Acids 0 ml @ 0 mls/hr PER PHARMACY IV 02/13/25 10:45 Ondansetron HCl 4 mg Q4HPRN PRN IV 02/21/25 09:30 03/12/25 17:08 4 MG Multi-Ingredient Ointment 1 applic DAILY TOP 02/23/25 10:00 03/24/25 12:48 1 APPLIC Diagnostic Test (Pha) 1 strip Q4HR 02/26/25 16:00 Cancel Dextrose 50 ml UD PRN IV 02/26/25 14:15 Diagnostic Test (Pha) 1 strip IQ4HR 02/26/25 16:00 UNV Dextrose 50 ml UD PRN IV 02/26/25 16:00 UNV Insulin Human Regular Q6HR SC 03/02/25 12:00 03/24/25 06:52 2 UNITS Pantoprazole Sodium 40 mg BID IV 03/08/25 22:00 03/24/25 12:27 40 MG Levothyroxine Sodium 50 mcg DAILY IV 03/09/25 10:00 03/24/25 12:32 50 MCG Lidocaine 1 patch DAILY TOP 03/12/25 10:00 03/24/25 12:48 1 PATCH Micafungin Sodium 100 mg/Sodium Chloride 100 ml @ 100 mls/hr DAILY IV 03/18/25 10:00 03/24/25 13:43 100 MLS/HR Acetaminophen 650 mg Q6HP PRN TX 03/18/25 10:00 Ceftriaxone Sodium/Dextrose 50 ml @ 50 mls/hr DAILY IV 03/22/25 10:00 03/24/25 12:37 50 MLS/HR Fat Emulsion Intravenous 100 ml/Potassium Acetate 40 meq/ Potassium Phosphate 44 meq/ Magnesium Sulfate 16 meq/ Multivitamins 10 ml/Amino Acids/ Dextrose/Purified Water 1,194 ml @ 50 mls/hr [id number] IV 03/23/25 22:00 03/24/25 21:59 03/23/25 21:42 50 MLS/HR Sodium Chloride 1,000 ml @ 75 mls/hr [id number] IV 03/23/25 10:15 03/24/25 12:45 75 MLS/HR Phenylephrine HCl 80 mg/Sodium Chloride 250 ml @ 7.5 mls/hr Q24H IV 03/23/25 22:45 UNV Fat Emulsion Intravenous 50 ml/ Potassium Acetate 80 meq/Potassium Phosphate 22 meq/ Magnesium Sulfate 16 meq/ Multivitamins 10 ml/Amino Acids/ Dextrose/Purified Water 1,109 ml @ 46 mls/hr Q24H7M IV 03/24/25 22:00 03/25/25 21:59 Hydromorphone HCl 0.5 mg Q3HP PRN IV 03/24/25 12:30 Daptomycin / Sodium Chloride 50 ml @ 100 mls/hr DAILY IV 03/25/25 10:00 UNV Examination Pt is lying on bed General Appearance: Alert and Oriented x2 HEENT: Atraumatic, Mucous membranes moist/pink Respiratory: Clear to auscultation, Normal air movement, No added sounds Cardiovascular: Regular rate, Normal S1, Normal S2, No murmurs Abdominal: Active bowel sounds, Soft, no distention, no tenderness, colostomy bag in place and 1 CARMEN drain with Serosanguineous bloody fluid Extremities: No pitting edema Skin: No Significant rash, except past surgical scars Neuro: more alert and oriented Nurse was there as churn driller helper during examination laboratory and microbiology Laboratory Tests 03/24/25 02:42 Test 03/24/25 02:42 Range/Units Serum Glucose 155 H 74-106 mg/dL Microbiology Date/Time Source Procedure Growth Status 03/20/25 22:15 Blood Blood Culture - Preliminary NO GROWTH AFTER 72 HOURS OF INCUBATION. Resulted 03/20/25 08:12 Peritoneal Fluid Gram Stain - Final Resulted 03/20/25 08:12 Peritoneal Fluid Anaerobic Culture - Preliminary Resulted 03/20/25 08:12 Aerobic Culture - Final Enterococcus faecium - VRE Resulted 03/16/25 15:48 Urine - [place] Urine Culture - Final Yeast, not Zoe albicans Complete 02/25/25 11:48 Sputum Gram Stain - Final Complete 02/25/25 11:48 Sputum Respiratory Culture - Final Complete 01/13/25 17:10 Nose MRSA Screen - Final Complete Problem List/Assessment/Plan Problem List/Assessment/Plan Neurology # Chronic ischemic changes # Chronic Cortical atrophy - Head CT (01/29): Chronic microangiopathy and cortical atrophy. - reintubated on 02/25/25 during surgery # Extubated on 02/28 Cardiovascular # Septic shock secondary to hollow viscus perforation. # Paroxysmal atrial fibrillation with a second-degree hypercoagulable state currently NSR # Chronic diastolic heart failure with preserved EF 65% # Hypertension. - Echocardiogram (01/15): Normal LV EF (65%), mild LVH, mild LV diastolic dysfunction. - Chest X-ray: Bibasilar atelectasis. - ZEFERINO?DS?-VASc score >5 - cardiology on board - initially on Lovenox therapeutic but Dc'd due to low hemoglobin - Labetalol PRN Pulmonary # Acute hypoxic respiratory failure secondary to bilateral pleural effusion/pneumonia s/p re-intubation, status post extubation 02/28 - monitor with daily CXR - Sputum culture 01/29 Presumptive Zoe albicans and : negative - Reintubated on 02/25. - Chest Physiotherapy ongoing. - extubated today Gastrointestinal / Liver # Acute Bacterial Peritonitis due to small bowel perforation vs Perisplenic abscess. s/p multiple laparotomies # Transaminitis secondary to shock. # Anion gap metabolic acidosis due to bowel ischemia and lactic acidosis - CT abdomen/pelvis (02/16): Pneumoperitoneum, extraluminal contrast, perisplenic/subdiaphragmatic collection (7.1 1.1 cm). - Small bowel series (02/11): Normal. 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 Procedures: - First laparotomy (01/13): Resection of perforated small bowel, enteroenterostomy. - Second laparotomy (02/04): Resection near previous perforation, jejunal anastomosis. - Third laparotomy (02/25): Resection of distal ileum, end-to-end anastomosis, ileostomy. - fourth laparotomy(03/20): Cultures: - Peritoneal fluid (01/13): E. coli, Klebsiella pneumoniae (sensitive to meropenem). - Peritoneal fluid (02/17): E. coli, Stenotrophomonas maltophilia. - Aspirate Showed(03/02): VRE - IR-guided pigtail drain placed; drained 50 cc purulent fluid. - CARMEN drains placed in 4 quadrants initially and now patient has only 1 CARMEN drain - Initially NPO, TPN initiated. - NG tube placed. - IV antimicrobials meropenem and micafungin, daptomycin (03/24) - Initially patient is on Levofloxacin, Flagyl (02/03); Vancomycin and Meropenem (); Meropenem (); Vancomycin () then eventually switched to above antimicrobials - Started Daptomycin (03/08), Bactrim stopped (03/08), stopped daptomycin - added micafungin - (03/17) - 2nd opinion to be given by Dr. Rivera -03/21- meropenem to ceftriaxone -Gastrografin scan(03/05) showed Contrast extravasation is seen in the proximal small bowel, possibly left sided jejunum near the surgical drain can be seen with a leak. -patient kept NPO - NG tube removed (03/15) Genitourinary / Kidney # ISRRAEL likely secondary to shock/volume depletion- resolved - Nephrology consulted for ISRRAEL. Endocrine # Hypothyroidism: TSH 42.29, low T4 # Type 2 diabetes mellitus: HbA1c 8.2%.- # Episodes of hypoglycemia. # Hypothyroidism - continuously monitoring blood glucose and on ISS - Started on Levothyroxine 50 daily Metabolic Hypokalemia. Hyperkalemia. Hyponatremia: D5W at 75 mL/hr per nephrology. Hypophosphatemia: given IV phosphate Nutrition: Severe protein malnutrition. Hematology # Acute on chronic anemia (hemodilution/post-surgical). # Severe thrombocytopenia, HIT # Acute DVT of right upper extremity. - Ultrasound (01/17): Partial thrombus in right internal jugular and cephalic veins. - hemoglobin today 6.9, transfused 1 more unit of PRBC 02/28 - Transfused total 8 units PRBC, 2 platelet units. - continuously monitor H&H - hold blood thinners Musculoskeletal / Skin # Rib fracture due to fall. Nutrition: TPN initiated. Bowel Regimen: As needed. GI Prophylaxis: Pantoprazole bid DVT Prophylaxis: Lovenox (held/ Dc'd due to low hemoglobin). Lines / Tubes / Devices Airway: Intubated on 01/14, extubated on 02/07, reintubated on 02/25 extubated 02/28 Vascular Access: PICC line placed in right upper thigh on 01/26. Drips: Dc'd pressors and sedatives. Urinary: Leach catheter placed on 01/14, exchanged on 02/14. Exchanged on 03/17. CARMEN drains in 1 quadrant. Goals of care addressed with patient's family members for more than 29 minutes: Full code status Care plan updated to the patient family Chris (son) on bedside and addressed all concerns Critical care time spent more than 51 minutes excluding procedures and including discussion with the family Case discussed with Dr. Galeana and RN Plan discussed with: Son Dietary Evaluation Review Comments: Nutrition Recommendation: 1) TPN to meet at least 75% estimated needs within 7 days 2) Monitor NPO status, lab values, wt trend, I/O Expected Outcomes/Goals: To meet >75% estimated needs Lab values to improve Fu 2-3 days Is there a minimum of two crit: Yes CC Plasma Assessment Blood Product Administration S: [id number] Date of Service: Mar 24, 2025 Billing Provider: ZBIGNIEW SELF MD Common Visit Codes: [id number] CARE 30-74 MIN ASHLEY TREJO Mar 24, 2025 14:57 ZBIGNIEW SELF MD Mar 26, 2025 18:14
--- NOTE | 2025-03-24 15:50 | DVH ---
CHEST RADIOGRAPH Indication: r/o pul. congestion Technique: Single frontal view of the chest was obtained Comparison: XY CHEST XRAY 1 VIEW on DOS: 03/23/25, XY CHEST PORTABLE on DOS: 03/21/25, XY CHEST XRAY 1 VIEW on DOS: 03/20/25, XY CHEST XRAY 1 VIEW on DOS: 03/09/25, XY CHEST XRAY 1 VIEW on DOS: 03/04/25 FINDINGS: Lines and Tubes: Enteric catheter and right PICC in satisfactory position. Lungs: Increased interstitial prominence. This may represent pulmonary vascular congestion and/or viral pneumonia. Lower lung volumes. Pleura: No effusion.No pneumothorax. Cardiomediastinal contours: Cardiomegaly. Bones: Unremarkable IMPRESSION: 1. Enteric catheter in satisfactory position.
[2025-03-24] MEDS: HYDROmorphone HCL 2 MG/ML VL/or syr IV PRN (15:56)
[2025-03-24] MEDS: TPN PER PHARMACY IV NR (23:04)
[2025-03-25] VITALS (47 sets, daily range): BP systolic 65–150; BP diastolic 24–93; PULSE 89–127; RESP 14–26; TEMP 97.6–100; O2SAT 80–100
[2025-03-25 03:19] LABS: Hemoglobin 9.4 g/dL (12.2-16.2); Mean Corpuscular Volume 98.0 fL (80.0-100.0)
[2025-03-25 03:20] LABS: Hematocrit 27.8 % (36.0-46.0); Mean Corpuscular Hemoglobin 33.3 pg (28.0-32.0); Nucleated Red Blood Cells % 0.5 %
[2025-03-25 03:38] LABS: Anion Gap 11 (5-15); Calcium 9.1 mg/dL (8.7-10.4); Magnesium 2.2 mg/dL (1.6-2.6); Potassium 4.5 mmol/L (3.5-5.1); Sodium 143 mmol/L (136-145)
[2025-03-25 03:51] LABS: BUN/Creatinine Ratio 46.0 (10.0-20.0)
[2025-03-25 03:59] LABS: Alanine Aminotransferase 70 U/L (7-40); Albumin 1.9 g/dL (3.2-4.8); Alkaline Phosphatase 165 U/L (46-116); Bilirubin, Total 9.8 mg/dL (0.2-1.0); Blood Urea Nitrogen 40 mg/dL (9-23); Carbon Dioxide 20 mmol/L (20-31); Chloride 112 mmol/L (98-107); Glucose 109 mg/dL (74-106); Total Protein 4.4 g/dL (5.7-8.2)
[2025-03-25] MEDS ORDERED: DAPTOmycin 0 MG in SODIUM CHL 0.9% 50 ML IV SCH (10:00)
--- NOTE | 2025-03-25 10:34 | DVHPNRES ---
Progress Note Date Seen: Mar 25, 2025 Resident Creating Document: ASHLEY TREJO RESIDENT Has the PT tested + for MRSA If YES, has PT been informed?: No Medical Necessity Reason Pt with a Central, PICC or Fol: Yes The following are medically ne: PICC Line, Leach Catheter Reason for leach catheter: Strict I&O Subjective Review of Systems This is a 80-year-old lady with past medical history of hypertension, AFib (on Eliquis), diabetes type 2, CKD, came to the hospital due to abdominal pain, and constipation. Admitted on 01/13/2025. Found to have peritonitis due to bowel perforation, and underwent emergent laparotomy with subsequent resection of perforated small bowel and enteroenterostomy. Due to abnormal CARMEN drainage, second exploratory laparotomy performed on 02/04 and found to have perforation near to previous perforation area, underwent resection of area with subsequent anastomosis of proximal jejunal loops. 03/12/2025: Patient seen in the ICU. Continued to be NPO. On 2 L oxygen via nasal cannula. Wound VAC is mild functional, yellowish drainage from incision site, CARMEN drain is functional, draining greenish bile. No signs of fever. No any other night complaints. 03/13/2025: Patient seen and ICU. Patient is to be continued on NPO. Is on room air, wound care to be done, wet-to-dry. Surgery following, low intermittent suction of NG tube, 130 mL of greenish fluid from CARMEN drain, 50 mL from NG tube noted. 03/14/2025: Patient seen in ICU. Patient is to be continued on NPO, is on room air, wound care is wet-to-dry, patient is getting TPN, had 145 removal of greenish drainage from CARMEN drain. Patient has nonblanching redness on sacrum. Today she came complains of 8/10 pain in the abdomen and back. NG tube was clamped. Following surgery. 03/15/25: patient seen in the ICU. She is still NPO. on room air, wound cares were too dry, NG tube removed. Still greenish drainage from CARMEN drain, blackish stool in the colostomy bag. She still complains of pain in the abdomen, back. PT is able to get her to wheelchair. surgery following. 03/16/2025: Patient seen in the ICU. She is still NPO, on TPN, on room air wound care is wet to dry NG tube was removed yesterday. There is blackish stool, blood seen in the colostomy bag today. She still complains of abdominal pain, there was greenish drainage in the wound. Foleys changed, aspirate culture ordered, 03/17/25: Patient seen in the ICU. Patient is still NPO, on TPN, on room air, wound VAC needs component. 80 mL from CARMEN drain. Second opinion by Dr. Rivera to be given. Micafungin added, morphine sulfate changed to 2 mg IV q.4 PRN. 03/18/25: Patient seen in ICU. Patient is still NPO, on TPN, on room air, CARMEN drain in place. Second opinion to be given by Dr. Rivera. 03/19/25: Patient is seen in ICU p.o. continue be NPO on TPN. Plan for laparotomy procedure tomorrow a.m.. No any other complaints. 03/20/2025: Patient seen in the ICU, laparotomy was done today, patient is on 3 L nasal oxygen. Patient is drowsy, did not complain of any pain. Patient is on Levophed,. NG Tube in place, CARMEN drains in place. 03/21/25: Patient seen in ICU, laparotomy was done yesterday, patient is on 3 L nasal oxygen, patient complains of 8/10 pain, is on Levophed, TPN. NG tube with low intermittent suction. Patient has a CARMEN drain with 30 mL serosanguineous bloody discharge. wound VAC in place. Lactic acid is trending down, WBC count trending down, patient was given 1 PRBC and hemoglobin is stable at 8.7. Patient antibiotics were switched from meropenem to ceftriaxone. Patient is on new 40, vasopressin 0.03 03/22/2025: Patient seen in ICU, patient is on room air, complains of pain, wound VAC to be changed, 1 PRBC was given due to low hemoglobin, H and H was checked anf Hb is7.9. 03/23/25: Patient seem in ICU, patient is on room air, complains of 8/10, wound VAC changed, Hb stable, torodol once given, patient today was confused. tsh level decreased. 03/24/25: patient seen in ICU, patient is on room air, complains of 8/10 pain. Toradol once was given patient is confused today. twenty-five mL bloody drainage from the CARMEN drain. Patient had episode of fever. TPN level of decreased to 50. PT eval to be done. Daptomycin added. 03/25/2025: Patient seen in ICU, patient is on room air. Patient complains of 10/10 pain. Patient was less confused today. patient is having dry dressings today as wound is leaking and wound VAC to be placed. Wound care to be done. Patient's platelets are dropping. Aspirate culture showed VRE and patient is started on daptomycin. Patient appears jaundiced, extremity DVT showed Thrombus is present in the left brachial vein and bilateral cephalic veins. Objective vital signs Vital Sign Date Time Temp Pulse Resp B/P (MAP) Pulse Ox O2 Delivery O2 Flow Rate FiO2 03/25/25 10:06 98 23 125/59 03/25/25 06:30 99 03/25/25 04:00 100.0 100.0 03/24/25 20:00 Nasal Cannula* 2 28 Total Intake and Output 03/24/25 03/24/25 03/25/25 14:59 22:59 06:59 Intake Total 1150 ml 1000 ml 922 ml Output Total 735 ml 755 ml Balance 1150 ml 265 ml 167 ml medications Current Medications Medications Dose Ordered Sig/Isaura Route Start Time Stop Time Status Last Admin Dose Admin Cefazolin Sodium 50 ml @ 100 mls/hr Q8HR IV 01/13/25 14:00 UNV Vasopressin 20 units/Sodium Chloride 100 ml @ 9 mls/hr Q11H7M IV 01/13/25 18:45 UNV Potassium Chloride 100 ml @ 50 mls/hr Q2H IV 01/16/25 12:45 01/16/25 18:44 UNV Vancomycin HCl 100 ml @ 100 mls/hr DAILY@1200 IV 01/20/25 12:00 UNV Amino Acids 0 ml @ 0 mls/hr PER PHARMACY IV 02/13/25 10:45 Ondansetron HCl 4 mg Q4HPRN PRN IV 02/21/25 09:30 03/12/25 17:08 4 MG Multi-Ingredient Ointment 1 applic DAILY TOP 02/23/25 10:00 03/25/25 10:28 1 APPLIC Diagnostic Test (Pha) 1 strip Q4HR 02/26/25 16:00 Cancel Dextrose 50 ml UD PRN IV 02/26/25 14:15 Diagnostic Test (Pha) 1 strip IQ4HR 02/26/25 16:00 UNV Dextrose 50 ml UD PRN IV 02/26/25 16:00 UNV Insulin Human Regular Q6HR SC 03/02/25 12:00 03/24/25 18:41 2 UNITS Pantoprazole Sodium 40 mg BID IV 03/08/25 22:00 03/25/25 10:23 40 MG Levothyroxine Sodium 50 mcg DAILY IV 03/09/25 10:00 03/24/25 12:32 50 MCG Lidocaine 1 patch DAILY TOP 03/12/25 10:00 03/25/25 10:28 1 PATCH Micafungin Sodium 100 mg/Sodium Chloride 100 ml @ 100 mls/hr DAILY IV 03/18/25 10:00 03/24/25 13:43 100 MLS/HR Acetaminophen 650 mg Q6HP PRN [place] 03/18/25 10:00 Ceftriaxone Sodium/Dextrose 50 ml @ 50 mls/hr DAILY IV 03/22/25 10:00 03/25/25 10:24 50 MLS/HR Sodium Chloride 1,000 ml @ 75 mls/hr [id number] IV 03/23/25 10:15 03/25/25 00:40 75 MLS/HR Phenylephrine HCl 80 mg/Sodium Chloride 250 ml @ 7.5 mls/hr Q24H IV 03/23/25 22:45 UNV Fat Emulsion Intravenous 50 ml/ Potassium Acetate 80 meq/Potassium Phosphate 22 meq/ Magnesium Sulfate 16 meq/ Multivitamins 10 ml/Amino Acids/ Dextrose/Purified Water 1,109 ml @ 46 mls/hr Q24H7M IV 03/24/25 22:00 03/25/25 21:59 03/24/25 23:04 46 MLS/HR Hydromorphone HCl 0.5 mg Q3HP PRN IV 03/24/25 12:30 03/25/25 10:06 0.5 MG Daptomycin / Sodium Chloride 50 ml @ 100 mls/hr DAILY IV 03/25/25 10:00 UNV Daptomycin 250 mg/ Sodium Chloride 50 ml @ 100 mls/hr DAILY IV 03/25/25 10:00 Fat Emulsion Intravenous 50 ml/ Potassium Acetate 80 meq/Potassium Phosphate 22 meq/ Magnesium Sulfate 16 meq/ Multivitamins 10 ml/Amino Acids/ Dextrose/Purified Water 1,159 ml @ 47.959 mls/ hr [id number] IV 03/25/25 22:00 03/26/25 21:59 Examination Pt is lying on bed General Appearance: Alert and Oriented x2 HEENT: Atraumatic, Mucous membranes moist/pink, eyes appear yellow Respiratory: Clear to auscultation, Normal air movement, No added sounds Cardiovascular: Regular rate, Normal S1, Normal S2, No murmurs Abdominal: Active bowel sounds, Soft, no distention, no tenderness, colostomy bag in place and 1 CARMEN drain with Serosanguineous bloody fluid Extremities: No pitting edema Skin: No Significant rash, except past surgical scars, jaundiced Neuro: more alert and oriented Nurse was there as legal document assistant during examination laboratory and microbiology Laboratory Tests 03/25/25 02:48 Test 03/25/25 02:48 Range/Units Serum Glucose 109 H 74-106 mg/dL Microbiology Date/Time Source Procedure Growth Status 03/20/25 22:15 Blood Blood Culture - Preliminary NO GROWTH AFTER 72 HOURS OF INCUBATION. Resulted 03/20/25 08:12 Peritoneal Fluid Gram Stain - Final Resulted 03/20/25 08:12 Peritoneal Fluid Anaerobic Culture - Preliminary Resulted 03/20/25 08:12 Aerobic Culture - Final Enterococcus faecium - VRE Resulted 03/16/25 15:48 Urine - [place] Urine Culture - Final Yeast, not Zoe albicans Complete 02/25/25 11:48 Sputum Gram Stain - Final Complete 02/25/25 11:48 Sputum Respiratory Culture - Final Complete 01/13/25 17:10 Nose MRSA Screen - Final Complete Problem List/Assessment/Plan Problem List/Assessment/Plan Neurology # Chronic ischemic changes # Chronic Cortical atrophy - Head CT (01/29): Chronic microangiopathy and cortical atrophy. - reintubated on 02/25/25 during surgery # Extubated on 02/28 Cardiovascular # Septic shock secondary to hollow viscus perforation. # Paroxysmal atrial fibrillation with a second-degree hypercoagulable state currently NSR # Chronic diastolic heart failure with preserved EF 65% # Hypertension. - Echocardiogram (01/15): Normal LV EF (65%), mild LVH, mild LV diastolic dysfunction. - Chest X-ray: Bibasilar atelectasis. - ZEFERINO?DS?-VASc score >5 - cardiology on board - initially on Lovenox therapeutic but Dc'd due to low hemoglobin - Labetalol PRN Pulmonary # Acute hypoxic respiratory failure secondary to bilateral pleural effusion/pneumonia s/p re-intubation, status post extubation 02/28 - monitor with daily CXR - Sputum culture 01/29 Presumptive Zoe albicans and : negative - Reintubated on 02/25. - Chest Physiotherapy ongoing. - extubated today Gastrointestinal / Liver # Acute Bacterial Peritonitis due to small bowel perforation vs Perisplenic abscess. s/p multiple laparotomies # Transaminitis secondary to shock. # Anion gap metabolic acidosis due to bowel ischemia and lactic acidosis - CT abdomen/pelvis (02/16): Pneumoperitoneum, extraluminal contrast, perisplenic/subdiaphragmatic collection (7.1 1.1 cm). - Small bowel series (02/11): Normal. - Gastrografin (02/21): [place]-enteric fistula, contrast leak from distal transverse colon. Procedures: - First laparotomy (01/13): Resection of perforated small bowel, enteroenterostomy. - Second laparotomy (02/04): Resection near previous perforation, jejunal anastomosis. - Third laparotomy (02/25): Resection of distal ileum, end-to-end anastomosis, ileostomy. - fourth laparotomy(03/20): Cultures: - Peritoneal fluid (01/13): E. coli, Klebsiella pneumoniae (sensitive to meropenem). - Peritoneal fluid (02/17): E. coli, Stenotrophomonas maltophilia. - Aspirate Showed(03/02): VRE - IR-guided pigtail drain placed; drained 50 cc purulent fluid. - CARMEN drains placed in 4 quadrants initially and now patient has only 1 CARMEN drain - Initially NPO, TPN initiated. - NG tube placed. - IV antimicrobials meropenem and micafungin, daptomycin (03/24) - Initially patient is on Levofloxacin, Flagyl (02/03); Vancomycin and Meropenem (); Meropenem (); Vancomycin () then eventually switched to above antimicrobials - Started Daptomycin (03/08), Bactrim stopped (03/08), stopped daptomycin - added micafungin - (03/17) - 2nd opinion to be given by Dr. Rivera -03/21- meropenem to ceftriaxone -Gastrografin scan(03/05) showed Contrast extravasation is seen in the proximal small bowel, possibly left sided jejunum near the surgical drain can be seen with a leak. -patient kept NPO Genitourinary / Kidney # ISRRAEL likely secondary to shock/volume depletion- resolved - Nephrology consulted for ISRRAEL. Endocrine # Hypothyroidism: TSH 42.29, low T4 # Type 2 diabetes mellitus: HbA1c 8.2%.- # Episodes of hypoglycemia. # Hypothyroidism - continuously monitoring blood glucose and on ISS - Started on Levothyroxine 50 daily Metabolic Hypokalemia. Hyperkalemia. Hyponatremia: D5W at 75 mL/hr per nephrology. Hypophosphatemia: given IV phosphate Nutrition: Severe protein malnutrition. Hematology # Acute on chronic anemia (hemodilution/post-surgical). # Severe thrombocytopenia, HIT # Acute DVT of right upper extremity. - Ultrasound (01/17): Partial thrombus in right internal jugular and cephalic veins. - hemoglobin today 6.9, transfused 1 more unit of PRBC 02/28 - Transfused total 8 units PRBC, 2 platelet units. - continuously monitor H&H - hold blood thinners - 03/25 extremity DVT showed Thrombus is present in the left brachial vein and bilateral cephalic veins. Musculoskeletal / Skin # Rib fracture due to fall. Nutrition: TPN initiated. Bowel Regimen: As needed. GI Prophylaxis: Pantoprazole bid DVT Prophylaxis: Lovenox (held/ Dc'd due to low hemoglobin). Lines / Tubes / Devices Airway: Intubated on 01/14, extubated on 02/07, reintubated on 02/25 extubated 02/28 Vascular Access: PICC line placed in right upper thigh on 01/26. Drips: Dc'd pressors and sedatives. Urinary: Leach catheter placed on 01/14, exchanged on 02/14. Exchanged on 03/17. CARMEN drains in 1 quadrant. Goals of care addressed with patient's family members for more than 29 minutes: Full code status Care plan updated to the patient family Chris (son) on bedside and addressed all concerns Critical care time spent more than 81 minutes excluding procedures and including discussion with the family Case discussed with and RN Plan discussed with: Son My Orders My Orders Orders - ASHLEY TREJO RESIDENT Procedure Category Date Status Time Chest Xray 1 View XY 03/24/25 Resulted 14:57 Dietary Evaluation Review Comments: Nutrition Recommendation: 1) TPN to meet at least 75% estimated needs within 7 days 2) Monitor NPO status, lab values, wt trend, I/O Expected Outcomes/Goals: To meet >75% estimated needs Lab values to improve Fu 2-3 days Is there a minimum of two crit: Yes CC Plasma Assessment Blood Product Administration S: [id number] ASHLEY TREJO RESIDENT Mar 25, 2025 10:34
--- NOTE | 2025-03-25 12:50 | DVHPN2 ---
Progress Note Date Seen: Mar 25, 2025 Has the PT tested + for MRSA If YES, has PT been informed?: No Medical Necessity Reason Pt with a Central, PICC or Fol: Yes The following are medically ne: PICC Line, Leach Catheter Reason for leach catheter: Strict I&O Objective vital signs Vital Sign Date Time Temp Pulse Resp B/P (MAP) Pulse Ox O2 Delivery O2 Flow Rate FiO2 03/25/25 10:36 99 24 126/45 03/25/25 06:30 99 03/25/25 04:00 100.0 100.0 03/24/25 20:00 Nasal Cannula* 2 28 Total Intake and Output 03/24/25 03/24/25 03/25/25 15:00 23:00 07:00 Intake Total 1150 ml 950 ml 847 ml Output Total 735 ml 755 ml Balance 1150 ml 215 ml 92 ml medications Current Medications Medications Dose Ordered Sig/Isaura Route Start Time Stop Time Status Last Admin Dose Admin Cefazolin Sodium 50 ml @ 100 mls/hr Q8HR IV 01/13/25 14:00 UNV Vasopressin 20 units/Sodium Chloride 100 ml @ 9 mls/hr Q11H7M IV 01/13/25 18:45 UNV Potassium Chloride 100 ml @ 50 mls/hr Q2H IV 01/16/25 12:45 01/16/25 18:44 UNV Vancomycin HCl 100 ml @ 100 mls/hr DAILY@1200 IV 01/20/25 12:00 UNV Amino Acids 0 ml @ 0 mls/hr PER PHARMACY IV 02/13/25 10:45 Ondansetron HCl 4 mg Q4HPRN PRN IV 02/21/25 09:30 03/12/25 17:08 4 MG Multi-Ingredient Ointment 1 applic DAILY TOP 02/23/25 10:00 03/25/25 10:28 1 APPLIC Diagnostic Test (Pha) 1 strip Q4HR 02/26/25 16:00 Cancel Dextrose 50 ml UD PRN IV 02/26/25 14:15 Diagnostic Test (Pha) 1 strip IQ4HR 02/26/25 16:00 UNV Dextrose 50 ml UD PRN IV 02/26/25 16:00 UNV Insulin Human Regular Q6HR SC 03/02/25 12:00 03/25/25 12:31 2 UNITS Pantoprazole Sodium 40 mg BID IV 03/08/25 22:00 03/25/25 10:23 40 MG Levothyroxine Sodium 50 mcg DAILY IV 03/09/25 10:00 03/25/25 11:00 50 MCG Lidocaine 1 patch DAILY TOP 03/12/25 10:00 03/25/25 10:28 1 PATCH Micafungin Sodium 100 mg/Sodium Chloride 100 ml @ 100 mls/hr DAILY IV 03/18/25 10:00 03/25/25 11:29 100 MLS/HR Acetaminophen 650 mg Q6HP PRN DC 03/18/25 10:00 Ceftriaxone Sodium/Dextrose 50 ml @ 50 mls/hr DAILY IV 03/22/25 10:00 03/25/25 10:24 50 MLS/HR Sodium Chloride 1,000 ml @ 75 mls/hr [id number] IV 03/23/25 10:15 03/25/25 00:40 75 MLS/HR Phenylephrine HCl 80 mg/Sodium Chloride 250 ml @ 7.5 mls/hr Q24H IV 03/23/25 22:45 UNV Fat Emulsion Intravenous 50 ml/ Potassium Acetate 80 meq/Potassium Phosphate 22 meq/ Magnesium Sulfate 16 meq/ Multivitamins 10 ml/Amino Acids/ Dextrose/Purified Water 1,109 ml @ 46 mls/hr Q24H7M IV 03/24/25 22:00 03/25/25 21:59 03/24/25 23:04 46 MLS/HR Hydromorphone HCl 0.5 mg Q3HP PRN IV 03/24/25 12:30 03/25/25 10:06 0.5 MG Daptomycin / Sodium Chloride 50 ml @ 100 mls/hr DAILY IV 03/25/25 10:00 UNV Daptomycin 250 mg/ Sodium Chloride 50 ml @ 100 mls/hr DAILY IV 03/25/25 10:00 Fat Emulsion Intravenous 50 ml/ Potassium Acetate 80 meq/Potassium Phosphate 22 meq/ Magnesium Sulfate 16 meq/ Multivitamins 10 ml/Amino Acids/ Dextrose/Purified Water 1,159 ml @ 48 mls/hr Q24H9M IV 03/25/25 22:00 03/26/25 21:59 laboratory and microbiology Laboratory Tests 03/25/25 02:48 Test 03/25/25 02:48 Range/Units Serum Glucose 109 H 74-106 mg/dL Problem List/Assessment/Plan Problem List/Assessment/Plan 01/14/25 afebrile, low dose BP support, received transfusion, I believe her decreased hematocrit is due to hemodilution. abdomen non distended, soft, wound clean and well approximated, drainage serous . remains intubated and sedated 01/16/25 ALKALOSIS, ABDOMEN NON DISTENDED, SOFT, DRAINAGE SEROUS, WOUND CLEAN AND WELL APPROXIMATED 01/17/25 improved, thrombocytopenia possibly made worse by Fluconazole,will DC, abdomen non distended, wound well approximated without infection, TATY drainage serous, CVP 6, good urine output. 01/18/25 abg reviewed, ,abdomen soft, non distended, TATY drainage clear serous, no bowel activity, febrile, urine output ok, continues with thrombocytopenia,pt and inr slightly elevated. prognosis grave. 01/20/25remains sedated on ventilator, abdomen soft, non distended, faint bowel sounds auscultated by nurse, wound clean and well approximated, TATY drainage clear serous. continues with thrombocytopenia, still behind on intravascular volume( BUN and Creatinine elevated), i would give more IV fluids and DC vancomycin. 01/25/25 afebrile, normotensive, wound clean and well approximated, TATY drainage serous, abdomen non distended, soft, gastrografin small bowel series shows non obstructed GI tract and no evidence of extravasation. It is OK to initiate enteric feedings. 01/29/25 16 DAYS POST OPERATIVELY TRHE TATY DRAINAGE WHICH HAD CONSISTENTLY BEEN SEROUS OR SERO SANGUINEOUS HAS BECOME "DIRTY" BROWNISH DISCOLORATION, HER WOUND IS CLEAN AND WELL APPROXIMATED AND HER ABDOMEN IS SOFT AND NON DISTENDED, CT SCAN SHOWS SO0ME FLUID AND ACCUMULATION OF FLUID AROUND THE SPLEEN, WILL REQUEST CT GUIDED ASPIRATION OF SAME, WILL ORDER IRRIGATION OF DRAINS. SHE SI AFEBRILE AND MAINTAINS NORMAL BLOOD PRESSURE, HER WBC IS NORMAL. 01/30/25 improved, awake, being weaned off vent. abdomen non distended, non tender, taty drainage clearing with irrigation 02/02/25clinically unchanged, gastrografin small bowel series reported and normal, no extravasation reported, will order a follow ujp KUB for tomorrow AM 02/03/25 PATIENT HAD A GASTROGRAFIN SMALL BOWEL SERIES AND A FOLLOW UP KUB X RAYS NEITHER ONE OF WHICH SHOW EXTRAVASATION OF CONTRAST OR EVIDENCE OF FREE CONTRAST IN THE PERITONEAL CAVITY. THERE IS HOWEVER VISCOUS, BROWNISH FLUID DRAINING VIA BOTH TATY DRAINS AND THROUGH INFRAUMBILICAL PORTION OF MIDLINE WOUND, I REMOVED THE RICHIE FROM THE 3 CM SECTION OF THE INFRAUMBILICAL WOUND AND EVACUATED ABOUT 30 CC OF THIS FLUID AND INSTRUCTED THE NURSE TO PLACE A STOMA APPLIANCE ON THIS OPENING. 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 TODAY HER WBC IS ELEVATED, ABDOMEN CONTINUES TO BE NON DISTENDED, SOFT, BUT SHE DOES HAVE SLIGHT TENDERNESS IN THE PERIUMBILICAL AREA. I WILL TREAT THIS EXPECTANTLY FORM THE TIME BEING IN THE HOPE THAT THIS IS A "CONTROLLED" FISTULA AND HOPEFUL WILL HEAL SPONTANEOUSLY WITH NPO AND NUTRITIONAL SUPPORT. WILL WATCH CLOSELY, AFTER A FEW DAYS WILL GET A FISTULOGRAM TO PIN POINT THE ENTERIC ORIGIN OF THE FISTULIZATION. CONTINUE NGT SUCTION AND DRAIN IRRIGATION ORDERED02/05/25 02/05/25 remains sedated and intubated?ventilated, abdomen non distended soft, wound vac in place. TATY drainage serosanguineous 02/08/25 EXTUBATED, GOOD INSPIRATORY EFFORT, BP NML WITHOUT PRESSOR SUPPORT, ABDOMEN SOFT, NON DISTENDED, APPROPRIATELY TENDER, LABS REVIEWED. NO CHANGES TODAY OTHER THAN ALLOW ICE CHIPS PO. WILL ORDER GASTROGRAFIN SMALL BOWEL FOLLOWTHROUGH FOR Friday02/09/25 awake cooperative, wound vac in place, abdomen soft, non distended, appropriately tender, TATY drainage brownish discoloration, will irrigate, her WBC is normal and she is afebrile and normotensive. gastrografin tomorrow 02/10/25 AWAKE,COMFORTABLE, DENIES PAIN, ABDOMEN NON DISTENDED APPROPRIATELY TENDER, WOUND CLEAN AND WELL APPROXIMATED, DRAINS BEING IRRIGATED, LABS OK, GOOD URINE OUTPUT. "SURGICALLY" STABLE 02/11/25 feels well, passing flatus. is hungry, abdomen soft non distended, drainage clearing with irrigation, will wait for Gastrografin small bowel series to be completed, if normal will start po clear liquids 02/12/25 no nausea, change in TATY drainage colort, appears to contaIN, BILE, WILL DC po CLEAR LIQUIDS, CONTINUE ICE CGHIPS, SEND DRAin fluid for amylase and bilirubin, 02/13/25 states she feels well, abdomen non tender, non distended, wound clean and well approximated. drainage slightly clearer, keep npo for now, needs to resume TPN 02/14/25 PATIENT C/O BEING COLD BUT HAS NO PAIN, DRAINAGE SEEMS TO BE CLEARING, SHE HAD A BOWEL MOVEMENTS, ABDOMEN IS SOFT AND NON TENDER, NON DISTENDED, WOUND IS CLEAN AND WELL APPROXIMATED, WILL CONTINUE NPO STATUS AMYLASE ON TATY DRAINAGE FLUID IS GOING TO TAKE SEVERAL DAYS TO BECOME AVAILABLE. CONTINUE TPN 02/16/25 DENIES PAIN,STATES SHE FEELS BETTER, WOUND VAC IN PLACE, ABDOMEN NON TENDER,NON DISTENDED, TATY DRAINAGE SMALL TO MODERATE , WILL CONTINUE IRRIGATING DRAINS, WILL REQUEST GI CONSULT TO CONSIDER ENDOSCOPY. WBC NL,H/H STABLE , ALBUMIN STILL VERY LOW. , 02/17/25 CT SCAN REVIEWED, I SUSPECT THERE IS A SMALL LEAK FROM THE APPEARANCE OF IMAGING ALTHOUGH RADIOLOGIST RECOMMENDED REPEAT CT SCAN (ORDERED). THE DRAINAGE IS SMALL AMOUNT BUT NOW IT IS WITH AN ODOR, I WILL RE INSERT NGT TO ATTEMPT DECREASING THE GASTRIC CONTENTS. ABDOMEN IS SOFT, APPROPRIATELY TENDER, WOUND VAC IN PLACE 02/18/25 AFEBRILE, NORMOTENSIVE4, WBC NL, ALL IMAGING NEGATIVE, ANGIOGRAM SHOWS NO EVIDENCE OF HYPOPERFUSION, CONTRAST AND NON CONTRAST CT SCAN FAILED TO SHOW ANY EVIDENCE OF EXTRAVASATION, THE DRAINAGE CONTINUES TO BE BROWNISH DISCOLORED AND FOULS SMELLING, EXPLAINED TO PT'S SON THAT I HAVE NO EVIDENCE OF ANY GI LEAKAGE, WILL GET A GASTROGRAFIN ENEMA ON FRIDAY, I AM TRYING TO REFRAIN FROM OPERATING ON THE FRAIL ELDERLY PATIENT FOR THE THIRD TIME, SHE WILL NOT TOLERATE ANOTHYER OPERATION WELL. HER ALBUMIN REMAINS VERY LOW.WOUND VAC OK 02/19/25 feels ok,c/o being cold, abdomen soft. non distended, minimally tender, drainage seems to be little less, labs ok, continue as is 02/22/25 she feels well, abdomen is non tender, soft and non distended, drainage slightly less in volume, still discolored,gastrografin enema reviewed by me ( no radiologist/s interpretation available), she has not evacuated the gastrografin according to nurse. 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 will proceed with operation on 02/25/25 at 0715 AM. 02/27/25 SLIGHT IMPROVEMENT, ABDOMEN SOFT, NON DISTENDED, STOMA VIABLE WITHOUT FUNCTION, OK TO TRY GETTING OFF VENTILATOR. 03/01/25 extubated, conversant,oriented, abdomen non distended, appropriately tender, wound clean ans well approximated, drainage serous, stoma viable and with minimal liquid,no gas. will sips of water and ice po 03/02/25 awake comfortable, denies pain, abdomen appropriately tender, wound vac in place, afebrile, normotensive, drainage serosanguineous, cbc stable, stoma viable and with minimal output will resume irrigation of drain 03/03/25 awake ,cooperative, good inspiratory effort, afebrile, normotensive, wound covered with wound vac, drainage serous but cloudy(cultures ordered) abdomen non tender, stoma viable with minimal output. will order gastrografin ugi with small bowel follow throught for tomorow 03/04/25 vital signs stable, good urine output, wound vac ok, abdomen non tender. Xray pending 03/05/25 UGI X RAY SHOWS A NEW AREA OF LEAK,BEING ADEQUATELY DRAINED BY THE TATY DRAIN WHICH IS ADJACENT TO IT, HER ABDOMEN IS NON TENDER. WILL RESUME STRICT NPO STATUS, KEEP NGT TO CONTINUOUS SUCTION, I HAVE CALLED HER SON ILIANA AND EXPLAINED THAT PROBABLY THE INTESTINAL WALL IS NOT HEALING WHENEVER WE PLACE SUTURE AT SITES OF ANASTOMOSES. HER ABDOMEN IS NON TENDER, I WILL TREAT THIS CONSERVATIVELY FOR SOME TIME TO SEE IF THE LEAK MAY SHOW SOME EVIDENCE OF HEALING. YESTERDAY THERE WAS 500 CC OF TATY DRAINAGE. HER ALBUMIN LEVEL IS SLOWLY IMPROVING BUT STILL REMAINS LOW. IT APPEARS THAT THE SUTURES IN HER INTESTINAL ANASTOMOSES HOLD FOR ABOUT A WEEK AND THEN BREAK DOWN. (DRAINAGE TURNED FROM SEROSANGUINEOUS TO GREENISH YESTERDAY. 03/06/25 drainage slightly less in volume, still enteric contents abdomen softn and non tender, non distended. wound vac changed, wound healing, no chjanges for now. discussed with family. 03/08/29 feels better, no pain, abdomen soft and non tender, drainage minimally less, family at bedside, answered questions 03/09/25 son at bedside, patient feels "well" wants to eat, explained that we need to keep her intestine at rest' afebrile, normotensive, drainage less, abdomen non tender, wound vac in p-lace wbc normal today. h/h stable/ continue npo aqnd ngt there is stool in stoma appliance 03/13/25 SLOW IMPROBVEMENT,ABDOMEN NON TENDER, NON DISTENDED, SOME STOOL IN STOMA, DRAINAGE SLIGHTLY LESS VOLUME, CONTINUE IS, NEEDS MOR IV FLUYID (ORDERS GIVEN) 03/15/25 stable, having the NG tube clamped did not cause distress nor did it result in increase of the TATY drainage ,I have therefore removed the NG tube, she does need to remain NPO however, if there are no major changes in her condition in the next 48 hours she would be stable to transfer to a SNF on TPN, I will gladly make "house calls " on here at the facility . abdomen remains non distended, non tender, wound awaiting a wound vac but it is without evidence of infection, I have digitally probed the styoma which has inverted on itself, it is patent ancd without stenosis below the skin level. 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 drainage unchanged 03/22/25 doing well ,drainag clear, stoma viable and functioning, abdomen soft and appropriately tender, wound vac, labs reviewed. 03/25/25 until yeswterday she had minimal serous drainage in the TATY drain, this morning however tghe drainage is more voluminous and apperas to contain bile, her abdomen is non distended and appropriately tender, however i believe that the bowel has developed another "leak", I CALLED PATIENT SON AND EXPLAINED THE SITUATION TO HIM Plan discussed with: Patient, Son, Other Dietary Evaluation Review Comments: Nutrition Recommendation: 1) TPN to meet at least 75% estimated needs within 7 days 2) Monitor NPO status, lab values, wt trend, I/O Expected Outcomes/Goals: To meet >75% estimated needs Lab values to improve Fu 2-3 days Is there a minimum of two crit: Yes MELVA RAMESH MD Mar 25, 2025 12:50
--- NOTE | 2025-03-25 14:51 | DVH ---
CLINICAL HISTORY: r/o dvt TECHNIQUE: Color and duplex doppler imagine of the bilateral lower extremity veins was performed. Vessel compression and augmentation if possible was also performed. COMPARISON: US BILAT LOW EXT ART DUPLEX on DOS: 01/21/25, US BI LAT UPPER DVT on DOS: 01/17/25, US BILAT LOWER DVT on DOS: 01/17/25 FINDINGS: Right Lower Extremity: Right common femoral vein: Normal compressibility and flow. Right superficial femoral vein: Normal compressibility and flow. Right popliteal vein: Normal compressibility and flow. Left Lower Extremity: Left common femoral vein: Normal compressibility and flow. Left superficial femoral vein: Normal compressibility and flow. Left popliteal vein: Normal compressibility and flow. There is a 2.9 cm left Padron's cyst. IMPRESSION: No sonographic evidence for DVT in the lower extremities. 2.9 cm left Padron's cyst.
[2025-03-25] MEDS: DAPTOmycin 250 MG in SODIUM CHL 0.9% 50 ML IV SCH (14:55)
--- NOTE | 2025-03-25 15:15 | DVH ---
Bilateral Upper Extremity Venous Duplex Clinical History: r/o dvt Comparison: US BILAT LOWER DVT on DOS: 03/25/25, US BILAT UPPER EXT ART DUPLEX on DOS: 01/21/25, US BI LAT UPPER DVT on DOS: 01/17/25, US BILAT LOWER DVT on DOS: 01/17/25 Findings: Duplex Doppler evaluation of the venous systems of the right and left lower neck and upper extremities including color Doppler and spectral/pulsed waveform analysis was performed. RIGHT SIDE: The internal jugular vein demonstrates appropriate compressibility and waveform variability. The subclavian vein is patent on color Doppler evaluation without intraluminal thrombus and demonstrates waveform variability. The visualized portion of the brachiocephalic vein is patent on color Doppler evaluation without intraluminal thrombus and demonstrates waveform variability. The axillary vein demonstrates appropriate compressibility and waveform variability. The brachial veins demonstrate appropriate compressibility and patency on Doppler evaluation. The basilic vein demonstrates appropriate compressibility and patency on Doppler evaluation. The cephalic vein demonstrates intraluminal thrombus and noncompressibility LEFT SIDE: The internal jugular vein demonstrates appropriate compressibility and waveform variability. The subclavian vein is patent on color Doppler evaluation without intraluminal thrombus and demonstrates waveform variability. The visualized portion of the brachiocephalic vein is patent on color Doppler evaluation without intraluminal thrombus and demonstrates waveform variability. The axillary vein demonstrates appropriate compressibility and waveform variability. The brachial vein demonstrates intraluminal thrombus. The basilic vein demonstrates appropriate compressibility and patency on Doppler evaluation. The cephalic vein demonstrates intraluminal thrombus and noncompressibility. Impression: Thrombus is present in the left brachial vein and bilateral cephalic veins. Critical Result: DVT Findings discussed with MASHA Camarillo at 03/25/2025 03:12 PM, and acknowledged receipt and understanding of the findings.
--- NOTE | 2025-03-25 23:51 | DVHPN2 ---
Consult Progress Note Objective vital signs Vital Sign Date Time Temp Pulse Resp B/P (MAP) Pulse Ox O2 Delivery O2 Flow Rate FiO2 03/25/25 22:30 113 102/28 (52) 03/25/25 22:00 98 03/25/25 21:00 24 03/25/25 20:00 Nasal Cannula* 2 28 03/25/25 20:00 98.5 98.5 Total Intake and Output 03/24/25 03/24/25 03/25/25 15:00 23:00 07:00 Intake Total 1150 ml 950 ml 968 ml Output Total 735 ml 755 ml Balance 1150 ml 215 ml 213 ml medications Current Medications Medications Dose Ordered Sig/Isaura Route Start Time Stop Time Status Last Admin Dose Admin Cefazolin Sodium 50 ml @ 100 mls/hr Q8HR IV 01/13/25 14:00 UNV Vasopressin 20 units/Sodium Chloride 100 ml @ 9 mls/hr Q11H7M IV 01/13/25 18:45 UNV Potassium Chloride 100 ml @ 50 mls/hr Q2H IV 01/16/25 12:45 01/16/25 18:44 UNV Vancomycin HCl 100 ml @ 100 mls/hr DAILY@1200 IV 01/20/25 12:00 UNV Amino Acids 0 ml @ 0 mls/hr PER PHARMACY IV 02/13/25 10:45 Ondansetron HCl 4 mg Q4HPRN PRN IV 02/21/25 09:30 03/12/25 17:08 4 MG Multi-Ingredient Ointment 1 applic DAILY TOP 02/23/25 10:00 03/25/25 10:28 1 APPLIC Diagnostic Test (Pha) 1 strip Q4HR 02/26/25 16:00 Cancel Dextrose 50 ml UD PRN IV 02/26/25 14:15 Diagnostic Test (Pha) 1 strip IQ4HR 02/26/25 16:00 UNV Dextrose 50 ml UD PRN IV 02/26/25 16:00 UNV Insulin Human Regular Q6HR SC 03/02/25 12:00 03/25/25 18:54 2 UNITS Pantoprazole Sodium 40 mg BID IV 03/08/25 22:00 03/25/25 22:06 40 MG Levothyroxine Sodium 50 mcg DAILY IV 03/09/25 10:00 03/25/25 11:00 50 MCG Lidocaine 1 patch DAILY TOP 03/12/25 10:00 03/25/25 10:28 1 PATCH Micafungin Sodium 100 mg/Sodium Chloride 100 ml @ 100 mls/hr DAILY IV 03/18/25 10:00 03/25/25 11:29 100 MLS/HR Acetaminophen 650 mg Q6HP PRN IA 03/18/25 10:00 Ceftriaxone Sodium/Dextrose 50 ml @ 50 mls/hr DAILY IV 03/22/25 10:00 03/25/25 10:24 50 MLS/HR Sodium Chloride 1,000 ml @ 75 mls/hr [id number] IV 03/23/25 10:15 03/25/25 15:00 75 MLS/HR Phenylephrine HCl 80 mg/Sodium Chloride 250 ml @ 7.5 mls/hr Q24H IV 03/23/25 22:45 UNV Hydromorphone HCl 0.5 mg Q3HP PRN IV 03/24/25 12:30 03/25/25 10:06 0.5 MG Daptomycin / Sodium Chloride 50 ml @ 100 mls/hr DAILY IV 03/25/25 10:00 UNV Daptomycin 250 mg/ Sodium Chloride 50 ml @ 100 mls/hr DAILY IV 03/25/25 10:00 03/25/25 14:55 100 MLS/HR Fat Emulsion Intravenous 50 ml/ Potassium Acetate 80 meq/Potassium Phosphate 22 meq/ Magnesium Sulfate 16 meq/ Multivitamins 10 ml/Amino Acids/ Dextrose/Purified Water 1,159 ml @ 48 mls/hr Q24H9M IV 03/25/25 22:00 03/26/25 21:59 03/25/25 22:11 48 MLS/HR laboratory and microbiology Laboratory Tests 03/25/25 02:48 Test 03/25/25 02:48 Range/Units Serum Glucose 109 H 74-106 mg/dL Problem List/Assessment/Plan Problem List/Assessment/Plan ASSESSMENT AND PLAN: ID Problem List: -Perforated small bowel with persistent leak; intra-abdominal sepsis; status post multiple exploratory laparotomies with adhesiolysis and enteroenterostomies; CARMEN drains in place -Septic shock; acute hypoxic respiratory failure -Acute kidney injury (ISRRAEL) with acute tubular necrosis (ATN) improved -Transaminitis likely ischemic hepatitis improving -Thrombocytopenia (worsened ~9/10 while on vancomycin/fluconazole) -Diabetes mellitus -On apixaban (Eliquis) for last 2 weeks indication unclear -Past surgical history: section; hernia repair Assessment This is a 10 y.o. female with diabetes and prior and hernia repair, who presented with 4 days of sharp lower abdominal pain. Initial ED evaluation notable for CT A/P demonstrating free intraperitoneal air and small bowel inflammatory changes concerning for perforated viscus with mild ascites and mesenteric stranding. She underwent an exploratory laparotomy on 01/13 with lysis of adhesions, small bowel enteroenterostomy, and placement of two Mend[place]- Steele drains; peritoneal cultures at that time grew Escherichia coli and Klebsiella pneumoniae (both ceftriaxone susceptible). Postoperatively she required norepinephrine (Levophed) and broad-spectrum antibiotics. Course complicated by recurrent sepsis and suspected enterocutaneous/peritoneal contamination, requiring re-exploration on 02/03 with evacuation of copious intra-abdominal infection/abscesses and revision of anastomosis; intraoperative cultures reportedly not obtained. A drain sample dated 01/28 grew Stenotrophomonas ([id number] susceptible). Ongoing respiratory issues prompted empiric vancomycin, later discontinued when sputum grew only Nancy albicans. A third operation on 02/25 for persistent feculent leakage and peritonitis showed a distal ileal perforation proximal to adhesional obstruction; this was resected with primary anastomosis, and further adhesiolysis performed. Upper GI series on 03/04 demonstrates contrast extravasation from proximal small bowel (likely left jejunum) near a surgical drain, consistent with a persistent leak that appears to be adequately drained clinically. She has been afebrile since 03/03, is extubated to 2 L NC, hemodynamically supported on low-dose norepinephrine, and clinically stable abdominally (nontender). LFTs that had peaked during ischemic episodes are improving. Renal function has improved from admission. Cultures/culture interpretation: Earlier peritoneal cultures with E. coli and Klebsiella; drain fluid with Stenotrophomonas (01/28) and subsequent peritoneal/aspirate samples showing E. coli and vancomycin-resistant Enterococcus (VRE) on 03/02; one of four blood culture bottles (03/07) positive for Staphylococcus epidermidis, felt to be contaminant. Given the persistent bowel leak with external drainage and the timing/source of cultures, current drain cultures are likely colonization and may not represent true invasive pathogens. Antimicrobial course (per transcript): initial piperacillin-tazobactam (Zosyn) + vancomycin through 01/19; vancomycin stopped for suspected contribution to thrombocytopenia; courses including meropenem and micafungin through 01/31; then levofloxacin + metronidazole + micafungin through 02/03; meropenem continued thereafter with vancomycin re-trial for presumed pneumonia (later stopped by 02/21 after Nancy-only sputum); micafungin added/continued; trimethoprim- sulfamethoxazole (Bactrim) started 02/21 for Stenotrophomonas coverage; transcript also notes meropenem and rifampin continued until today. 03/16: sp NGT removal, stoma and drain with output. off levophed 03/18: new levophed needs, intermittently febrile, drain culture w e.coli and nancy: meropenem and micafungin restarted 03/20: sp * Exploratory laparotomy. * Very extensive lysis of adhesions. * Repair of 3 ischemic perforations of small bowel. * Evacuation of multiple interloop abscesses. * Revision of ileostomy. 03/24: VRE growth on operative culture 03/25: tolerating daptomycin Plan: - fungal infection: - unclear if systemic non-candidemia yeast growth. - likely colonization and less likely systemic infection, but will check blood cultures - continue micafungin for now, -Intra-abdominal sepsis with persistent small bowel leak: -Source control: continue to ensure CARMEN drains are functioning; avoid routine re- culturing from drains as results likely represent colonization and may mislead management. -sp 03/20 exlap, repair of bowel leak -will fu on pending operative cultures -Antibiotics: - add daptomycin for VRE coverage -De-escalate broad coverage toward enteric pathogens (E. coli/Klebsiella) and away from agents targeting colonizers. -continue Ceftriaxone -Antifungal: continue micafungin for now, however suspect this two may be a colonizer -Duration: continue until leak is resolved or clearly contained with clinical improvement. -Transition to oral therapy when patient can tolerate and when clinically appropriate. -Respiratory: extubated to 2 L NC; supportive care; chest radiograph with persistent interstitial opacities, left basilar consolidation, small pleural effusions monitor clinically. -Renal: ISRRAEL/ATN improved (Cr now ~0.99); continue renal dosing of antimicrobials as indicated; monitor BMP. -Hepatic: transaminases improving from prior ischemic hepatitis; trend LFTs. -Hematology: platelet count currently ~118 K; monitor CBC. -Anticoagulation: on apixaban (Eliquis) for unclear indication per history; reconcile indication and risk/benefit with primary/surgical teams in context of recent surgeries/leak. -Nutrition/NG: continue NG suction per surgery; nutrition per surgical/ICU teams. -Lines/Drains: maintain CARMEN drains; monitor output and character; avoid routine drain cultures. -Follow-up: ID will continue to follow clinically; adjust therapy as new data emerge. Authorized and Performed by: sheron pedraza Total critical care time: Approximately 56 minutes Due to a high probability of clinically significant, life threatening deterioration, the patient required my highest level of preparedness to intervene emergently and I personally spent this critical care time directly and personally managing the patient. This critical care time included obtaining a history; examining the patient; pulse oximetry; ordering and review of studies; arranging urgent treatment with development of a management plan; evaluation of patient's response to treatment; frequent reassessment; and, discussions with other providers. This critical care time was performed to assess and manage the high probability of imminent, life-threatening deterioration that could result in multi-organ failure. It was exclusive of separately billable procedures and treating other patients and teaching time. \ Physical Exam: General: NAD Neck: Supple. No masses. HEENT: PERRL. Normal lids and conjunctiva. Moist mucous membranes. Oropharynx without lesions, exudates or excessive erythema. Normal appearance of the external aspects of the nose and ears. Heart: Regular rhythm, normal rate. No murmur. No lower extremity edema. Lungs: Normal respiratory effort. Clear to auscultation bilaterally. No wheezes. No crackles. Abdomen: Soft. Non-tender. Non-distended. No masses or abdominal hernia. drain and stoma functional . Msk: No digital cyanosis. Normal strength and tone in all 4 limbs Skin: Warm and dry, no rashes. Neuro: Alert. No facial droop or slurred speech. Extra-ocular movements intact. Sensation intact to soft touch in all 4 limbs. Psych: Appropriate mood. Full affect. Oriented to person, place, time, and situation. Dietary Evaluation Review Comments: Nutrition Recommendation: 1) TPN to meet at least 75% estimated needs within 7 days 2) Monitor NPO status, lab values, wt trend, I/O Expected Outcomes/Goals: To meet >75% estimated needs Lab values to improve Fu 2-3 days Is there a minimum of two crit: Yes CC Plasma Assessment Blood Product Administration S: [id number] SHERON PEDRAZA MD Mar 25, 2025 23:51
[2025-03-26] VITALS (76 sets, daily range): BP systolic 71–175; BP diastolic 13–127; PULSE 83–129; RESP 16–28; TEMP 96.3–100.5; O2SAT 91–100
[2025-03-26 04:37] LABS: Hematocrit 29.2 % (36.0-46.0); Hemoglobin 9.8 g/dL (12.2-16.2); Mean Corpuscular Hemoglobin 33.0 pg (28.0-32.0); Mean Corpuscular Volume 98.7 fL (80.0-100.0); Nucleated Red Blood Cells % 0.2 %
[2025-03-26 04:59] LABS: Anion Gap 12 (5-15); Calcium 8.9 mg/dL (8.7-10.4); Carbon Dioxide 20 mmol/L (20-31); Magnesium 2.1 mg/dL (1.6-2.6); Potassium 4.8 mmol/L (3.5-5.1); Sodium 140 mmol/L (136-145)
[2025-03-26 05:07] LABS: Alanine Aminotransferase 69 U/L (7-40); Albumin 1.6 g/dL (3.2-4.8); Alkaline Phosphatase 194 U/L (46-116); Bilirubin, Total 10.6 mg/dL (0.2-1.0); Blood Urea Nitrogen 42 mg/dL (9-23); Chloride 108 mmol/L (98-107); Glucose 139 mg/dL (74-106)
[2025-03-26 05:14] LABS: BUN/Creatinine Ratio 45.2 (10.0-20.0)
[2025-03-26 05:17] LABS: Total Protein 4.2 g/dL (5.7-8.2); Triglycerides 201 mg/dL (< 150)
[2025-03-26] MEDS: ACETAMINOPHEN 650 MG RECT SUPP PR PRN (08:08)
--- NOTE | 2025-03-26 08:45 | DVH ---
CHEST RADIOGRAPH Indication: SHORTNESS OF BREATH Technique: Single frontal view of the chest was obtained COMPARISON: XY CHEST XRAY 1 VIEW on DOS: 03/24/25, XY CHEST XRAY 1 VIEW on DOS: 03/23/25, XY CHEST PORTABLE on DOS: 03/21/25, XY CHEST XRAY 1 VIEW on DOS: 03/20/25, XY CHEST XRAY 1 VIEW on DOS: 03/09/25 FINDINGS: Lines and Tubes: Right PICC and enteric catheter in satisfactory position. Lungs: Multifocal airspace disease. Slightly improved aeration of the lungs. Pleura: Decreased small bilateral pleural effusions. No pneumothorax. Cardiomediastinal contours: Unremarkable Bones: Unremarkable IMPRESSION: Slightly improved aeration of the lungs.
[2025-03-26] MEDS: SODIUM CHLORIDE 0.9% 1,000 ML IV ONE ×2 (09:22→12:00)
[2025-03-26 09:24] LABS: Base Excess -3.5 mmol/L (-2.0-3.0)
[2025-03-26] MEDS ORDERED: DEXTROSE (50%) 50ML SYRG IV SCH (09:30)
[2025-03-26] MEDS: KETOROLAC TROMETH 30 MG/ML 1ML VIAL IV ONE (11:00)
--- NOTE | 2025-03-26 11:18 | DVHPN2 ---
Progress Note Date Seen: Mar 26, 2025 Has the PT tested + for MRSA If YES, has PT been informed?: No Medical Necessity Reason Pt with a Central, PICC or Fol: Yes The following are medically ne: PICC Line, Leach Catheter Reason for leach catheter: Strict I&O Objective vital signs Vital Sign Date Time Temp Pulse Resp B/P (MAP) Pulse Ox O2 Delivery O2 Flow Rate FiO2 03/26/25 10:00 110 22 86/24 (44) 100 03/26/25 10:00 98.4 03/26/25 04:00 Nasal Cannula* 2 28 Total Intake and Output 03/25/25 03/25/25 03/26/25 15:00 23:00 07:00 Intake Total 1043 ml 897 ml Output Total 645 ml 610 ml Balance 1043 ml 252 ml -610 ml medications Current Medications Medications Dose Ordered Sig/Isaura Route Start Time Stop Time Status Last Admin Dose Admin Cefazolin Sodium 50 ml @ 100 mls/hr Q8HR IV 01/13/25 14:00 UNV Vasopressin 20 units/Sodium Chloride 100 ml @ 9 mls/hr Q11H7M IV 01/13/25 18:45 UNV Potassium Chloride 100 ml @ 50 mls/hr Q2H IV 01/16/25 12:45 01/16/25 18:44 UNV Vancomycin HCl 100 ml @ 100 mls/hr DAILY@1200 IV 01/20/25 12:00 UNV Amino Acids 0 ml @ 0 mls/hr PER PHARMACY IV 02/13/25 10:45 Ondansetron HCl 4 mg Q4HPRN PRN IV 02/21/25 09:30 03/12/25 17:08 4 MG Multi-Ingredient Ointment 1 applic DAILY TOP 02/23/25 10:00 03/26/25 09:49 1 APPLIC Diagnostic Test (Pha) 1 strip Q4HR 02/26/25 16:00 Cancel Diagnostic Test (Pha) 1 strip IQ4HR 02/26/25 16:00 UNV Dextrose 50 ml UD PRN IV 02/26/25 16:00 UNV Pantoprazole Sodium 40 mg BID IV 03/08/25 22:00 03/26/25 09:33 40 MG Levothyroxine Sodium 50 mcg DAILY IV 03/09/25 10:00 03/26/25 09:48 50 MCG Lidocaine 1 patch DAILY TOP 03/12/25 10:00 03/26/25 09:49 1 PATCH Micafungin Sodium 100 mg/Sodium Chloride 100 ml @ 100 mls/hr DAILY IV 03/18/25 10:00 03/25/25 11:29 100 MLS/HR Acetaminophen 650 mg Q6HP PRN PA 03/18/25 10:00 03/26/25 08:08 650 MG Ceftriaxone Sodium/Dextrose 50 ml @ 50 mls/hr DAILY IV 03/22/25 10:00 03/26/25 10:36 50 MLS/HR Sodium Chloride 1,000 ml @ 75 mls/hr [id number] IV 03/23/25 10:15 03/26/25 03:26 75 MLS/HR Phenylephrine HCl 80 mg/Sodium Chloride 250 ml @ 7.5 mls/hr Q24H IV 03/23/25 22:45 UNV Hydromorphone HCl 0.5 mg Q3HP PRN IV 03/24/25 12:30 03/26/25 00:40 0.5 MG Daptomycin / Sodium Chloride 50 ml @ 100 mls/hr DAILY IV 03/25/25 10:00 UNV Daptomycin 250 mg/ Sodium Chloride 50 ml @ 100 mls/hr DAILY IV 03/25/25 10:00 03/25/25 14:55 100 MLS/HR Fat Emulsion Intravenous 50 ml/ Potassium Acetate 80 meq/Potassium Phosphate 22 meq/ Magnesium Sulfate 16 meq/ Multivitamins 10 ml/Amino Acids/ Dextrose/Purified Water 1,159 ml @ 48 mls/hr Q24H9M IV 03/25/25 22:00 03/26/25 21:59 03/25/25 22:11 48 MLS/HR Diagnostic Test (Pha) 1 strip Q6HR 03/26/25 12:00 Insulin Human Regular FOLLOW SLIDING SCALE Q6HR SC 03/26/25 12:00 Dextrose 50 ml UD IV 03/26/25 09:30 Fat Emulsion Intravenous 50 ml/ Sodium Acetate 60 meq/Sodium Phosphate 40 meq/ Potassium Phosphate 22 meq/ Magnesium Sulfate 18 meq/ Multivitamins 10 ml/Chromium/ Copper/Manganese/ Zinc 1 ml/Amino Acids/Dextrose/ Purified Water 1,360.5 ml @ 57 mls/hr [id number] IV 03/26/25 22:00 03/27/25 21:59 laboratory and microbiology Laboratory Tests 03/26/25 03:10 Test 03/26/25 03:10 Range/Units Serum Glucose 139 H 74-106 mg/dL Problem List/Assessment/Plan Problem List/Assessment/Plan 01/14/25 afebrile, low dose BP support, received transfusion, I believe her decreased hematocrit is due to hemodilution. abdomen non distended, soft, wound clean and well approximated, drainage serous . remains intubated and sedated 01/16/25 ALKALOSIS, ABDOMEN NON DISTENDED, SOFT, DRAINAGE SEROUS, WOUND CLEAN AND WELL APPROXIMATED 01/17/25 improved, thrombocytopenia possibly made worse by Fluconazole,will DC, abdomen non distended, wound well approximated without infection, TATY drainage serous, CVP 6, good urine output. 01/18/25 abg reviewed, ,abdomen soft, non distended, TATY drainage clear serous, no bowel activity, febrile, urine output ok, continues with thrombocytopenia,pt and inr slightly elevated. prognosis grave. 01/20/25remains sedated on ventilator, abdomen soft, non distended, faint bowel sounds auscultated by nurse, wound clean and well approximated, TATY drainage clear serous. continues with thrombocytopenia, still behind on intravascular volume( BUN and Creatinine elevated), i would give more IV fluids and DC vancomycin. 01/25/25 afebrile, normotensive, wound clean and well approximated, TATY drainage serous, abdomen non distended, soft, gastrografin small bowel series shows non obstructed GI tract and no evidence of extravasation. It is OK to initiate enteric feedings. 01/29/25 16 DAYS POST OPERATIVELY TRHE TATY DRAINAGE WHICH HAD CONSISTENTLY BEEN SEROUS OR SERO SANGUINEOUS HAS BECOME "DIRTY" BROWNISH DISCOLORATION, HER WOUND IS CLEAN AND WELL APPROXIMATED AND HER ABDOMEN IS SOFT AND NON DISTENDED, CT SCAN SHOWS SO0ME FLUID AND ACCUMULATION OF FLUID AROUND THE SPLEEN, WILL REQUEST CT GUIDED ASPIRATION OF SAME, WILL ORDER IRRIGATION OF DRAINS. SHE SI AFEBRILE AND MAINTAINS NORMAL BLOOD PRESSURE, HER WBC IS NORMAL. 01/30/25 improved, awake, being weaned off vent. abdomen non distended, non tender, taty drainage clearing with irrigation 02/02/25clinically unchanged, gastrografin small bowel series reported and normal, no extravasation reported, will order a follow ujp KUB for tomorrow AM 02/03/25 PATIENT HAD A GASTROGRAFIN SMALL BOWEL SERIES AND A FOLLOW UP KUB X RAYS NEITHER ONE OF WHICH SHOW EXTRAVASATION OF CONTRAST OR EVIDENCE OF FREE CONTRAST IN THE PERITONEAL CAVITY. THERE IS HOWEVER VISCOUS, BROWNISH FLUID DRAINING VIA BOTH TATY DRAINS AND THROUGH INFRAUMBILICAL PORTION OF MIDLINE WOUND, I REMOVED THE RICHIE FROM THE 3 CM SECTION OF THE INFRAUMBILICAL WOUND AND EVACUATED ABOUT 30 CC OF THIS FLUID AND INSTRUCTED THE NURSE TO PLACE A STOMA APPLIANCE ON THIS OPENING. 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 TODAY HER WBC IS ELEVATED, ABDOMEN CONTINUES TO BE NON DISTENDED, SOFT, BUT SHE DOES HAVE SLIGHT TENDERNESS IN THE PERIUMBILICAL AREA. I WILL TREAT THIS EXPECTANTLY FORM THE TIME BEING IN THE HOPE THAT THIS IS A "CONTROLLED" FISTULA AND HOPEFUL WILL HEAL SPONTANEOUSLY WITH NPO AND NUTRITIONAL SUPPORT. WILL WATCH CLOSELY, AFTER A FEW DAYS WILL GET A FISTULOGRAM TO PIN POINT THE ENTERIC ORIGIN OF THE FISTULIZATION. CONTINUE NGT SUCTION AND DRAIN IRRIGATION ORDERED02/05/25 02/05/25 remains sedated and intubated?ventilated, abdomen non distended soft, wound vac in place. TATY drainage serosanguineous 02/08/25 EXTUBATED, GOOD INSPIRATORY EFFORT, BP NML WITHOUT PRESSOR SUPPORT, ABDOMEN SOFT, NON DISTENDED, APPROPRIATELY TENDER, LABS REVIEWED. NO CHANGES TODAY OTHER THAN ALLOW ICE CHIPS PO. WILL ORDER GASTROGRAFIN SMALL BOWEL FOLLOWTHROUGH FOR Friday02/09/25 awake cooperative, wound vac in place, abdomen soft, non distended, appropriately tender, TATY drainage brownish discoloration, will irrigate, her WBC is normal and she is afebrile and normotensive. gastrografin tomorrow 02/10/25 AWAKE,COMFORTABLE, DENIES PAIN, ABDOMEN NON DISTENDED APPROPRIATELY TENDER, WOUND CLEAN AND WELL APPROXIMATED, DRAINS BEING IRRIGATED, LABS OK, GOOD URINE OUTPUT. "SURGICALLY" STABLE 02/11/25 feels well, passing flatus. is hungry, abdomen soft non distended, drainage clearing with irrigation, will wait for Gastrografin small bowel series to be completed, if normal will start po clear liquids 02/12/25 no nausea, change in TATY drainage colort, appears to contaIN, BILE, WILL DC po CLEAR LIQUIDS, CONTINUE ICE CGHIPS, SEND DRAin fluid for amylase and bilirubin, 02/13/25 states she feels well, abdomen non tender, non distended, wound clean and well approximated. drainage slightly clearer, keep npo for now, needs to resume TPN 02/14/25 PATIENT C/O BEING COLD BUT HAS NO PAIN, DRAINAGE SEEMS TO BE CLEARING, SHE HAD A BOWEL MOVEMENTS, ABDOMEN IS SOFT AND NON TENDER, NON DISTENDED, WOUND IS CLEAN AND WELL APPROXIMATED, WILL CONTINUE NPO STATUS AMYLASE ON TATY DRAINAGE FLUID IS GOING TO TAKE SEVERAL DAYS TO BECOME AVAILABLE. CONTINUE TPN 02/16/25 DENIES PAIN,STATES SHE FEELS BETTER, WOUND VAC IN PLACE, ABDOMEN NON TENDER,NON DISTENDED, TATY DRAINAGE SMALL TO MODERATE , WILL CONTINUE IRRIGATING DRAINS, WILL REQUEST GI CONSULT TO CONSIDER ENDOSCOPY. WBC NL,H/H STABLE , ALBUMIN STILL VERY LOW. , 02/17/25 CT SCAN REVIEWED, I SUSPECT THERE IS A SMALL LEAK FROM THE APPEARANCE OF IMAGING ALTHOUGH RADIOLOGIST RECOMMENDED REPEAT CT SCAN (ORDERED). THE DRAINAGE IS SMALL AMOUNT BUT NOW IT IS WITH AN ODOR, I WILL RE INSERT NGT TO ATTEMPT DECREASING THE GASTRIC CONTENTS. ABDOMEN IS SOFT, APPROPRIATELY TENDER, WOUND VAC IN PLACE 02/18/25 AFEBRILE, NORMOTENSIVE4, WBC NL, ALL IMAGING NEGATIVE, ANGIOGRAM SHOWS NO EVIDENCE OF HYPOPERFUSION, CONTRAST AND NON CONTRAST CT SCAN FAILED TO SHOW ANY EVIDENCE OF EXTRAVASATION, THE DRAINAGE CONTINUES TO BE BROWNISH DISCOLORED AND FOULS SMELLING, EXPLAINED TO PT'S SON THAT I HAVE NO EVIDENCE OF ANY GI LEAKAGE, WILL GET A GASTROGRAFIN ENEMA ON FRIDAY, I AM TRYING TO REFRAIN FROM OPERATING ON THE FRAIL ELDERLY PATIENT FOR THE THIRD TIME, SHE WILL NOT TOLERATE ANOTHYER OPERATION WELL. HER ALBUMIN REMAINS VERY LOW.WOUND VAC OK 02/19/25 feels ok,c/o being cold, abdomen soft. non distended, minimally tender, drainage seems to be little less, labs ok, continue as is 02/22/25 she feels well, abdomen is non tender, soft and non distended, drainage slightly less in volume, still discolored,gastrografin enema reviewed by me ( no radiologist/s interpretation available), she has not evacuated the gastrografin according to nurse. 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 will proceed with operation on 02/25/25 at 0715 AM. 02/27/25 SLIGHT IMPROVEMENT, ABDOMEN SOFT, NON DISTENDED, STOMA VIABLE WITHOUT FUNCTION, OK TO TRY GETTING OFF VENTILATOR. 03/01/25 extubated, conversant,oriented, abdomen non distended, appropriately tender, wound clean ans well approximated, drainage serous, stoma viable and with minimal liquid,no gas. will sips of water and ice po 03/02/25 awake comfortable, denies pain, abdomen appropriately tender, wound vac in place, afebrile, normotensive, drainage serosanguineous, cbc stable, stoma viable and with minimal output will resume irrigation of drain 03/03/25 awake ,cooperative, good inspiratory effort, afebrile, normotensive, wound covered with wound vac, drainage serous but cloudy(cultures ordered) abdomen non tender, stoma viable with minimal output. will order gastrografin ugi with small bowel follow throught for tomorow 03/04/25 vital signs stable, good urine output, wound vac ok, abdomen non tender. Xray pending 03/05/25 UGI X RAY SHOWS A NEW AREA OF LEAK,BEING ADEQUATELY DRAINED BY THE TATY DRAIN WHICH IS ADJACENT TO IT, HER ABDOMEN IS NON TENDER. WILL RESUME STRICT NPO STATUS, KEEP NGT TO CONTINUOUS SUCTION, I HAVE CALLED HER SON ILIANA AND EXPLAINED THAT PROBABLY THE INTESTINAL WALL IS NOT HEALING WHENEVER WE PLACE SUTURE AT SITES OF ANASTOMOSES. HER ABDOMEN IS NON TENDER, I WILL TREAT THIS CONSERVATIVELY FOR SOME TIME TO SEE IF THE LEAK MAY SHOW SOME EVIDENCE OF HEALING. YESTERDAY THERE WAS 500 CC OF TATY DRAINAGE. HER ALBUMIN LEVEL IS SLOWLY IMPROVING BUT STILL REMAINS LOW. IT APPEARS THAT THE SUTURES IN HER INTESTINAL ANASTOMOSES HOLD FOR ABOUT A WEEK AND THEN BREAK DOWN. (DRAINAGE TURNED FROM SEROSANGUINEOUS TO GREENISH YESTERDAY. 03/06/25 drainage slightly less in volume, still enteric contents abdomen softn and non tender, non distended. wound vac changed, wound healing, no chjanges for now. discussed with family. 03/08/29 feels better, no pain, abdomen soft and non tender, drainage minimally less, family at bedside, answered questions 03/09/25 son at bedside, patient feels "well" wants to eat, explained that we need to keep her intestine at rest' afebrile, normotensive, drainage less, abdomen non tender, wound vac in p-lace wbc normal today. h/h stable/ continue npo aqnd ngt there is stool in stoma appliance 03/13/25 SLOW IMPROBVEMENT,ABDOMEN NON TENDER, NON DISTENDED, SOME STOOL IN STOMA, DRAINAGE SLIGHTLY LESS VOLUME, CONTINUE IS, NEEDS MOR IV FLUYID (ORDERS GIVEN) 03/15/25 stable, having the NG tube clamped did not cause distress nor did it result in increase of the TATY drainage ,I have therefore removed the NG tube, she does need to remain NPO however, if there are no major changes in her condition in the next 48 hours she would be stable to transfer to a SNF on TPN, I will gladly make "house calls " on here at the facility . abdomen remains non distended, non tender, wound awaiting a wound vac but it is without evidence of infection, I have digitally probed the styoma which has inverted on itself, it is patent ancd without stenosis below the skin level. 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 drainage unchanged 03/22/25 doing well ,drainag clear, stoma viable and functioning, abdomen soft and appropriately tender, wound vac, labs reviewed. 03/25/25 until yeswterday she had minimal serous drainage in the TATY drain, this morning however tghe drainage is more voluminous and apperas to contain bile, her abdomen is non distended and appropriately tender, however i believe that the bowel has developed another "leak", I CALLED PATIENT SON AND EXPLAINED THE SITUATION TO HIM 03/26/25 transient hypotension responded to iv fluid bolus, drainage today is serosanguineous and there is some output of enteric contents through the ileostomy. have asked nurse to deflate the balloon on the leach catheter inside the ileostomy. abdomen non distended less tender than yesterday. she is feeling better than she did yesterday. I had a regine discussion with patient's son and told him that his mom will most likely not recover from this condition and if it was my mother I would give some consideration to taking her home on hospice. and I explained how hospice functions. He will discuss with family. Plan discussed with: Patient, Son Dietary Evaluation Review Comments: Nutrition Recommendation: 1) TPN to meet at least 75% estimated needs within 7 days 2) Monitor NPO status, lab values, wt trend, I/O Expected Outcomes/Goals: To meet >75% estimated needs Lab values to improve Fu 2-3 days Is there a minimum of two crit: Yes MELVA RAMESH MD Mar 26, 2025 11:18
[2025-03-26] MEDS: InsuLIN REG 1unit/0.01ml Soln (100units/ml) SC SCH (12:00)
[2025-03-26] MEDS: ACCU-CHEK COMFORT CURVE STRIP VI SCH (12:00)
--- NOTE | 2025-03-26 14:38 | DVHPNRES ---
Progress Note Date Seen: Mar 26, 2025 Resident Creating Document: BHUPINDER URBINA RESIDENT Has the PT tested + for MRSA If YES, has PT been informed?: No Medical Necessity Reason Pt with a Central, PICC or Fol: Yes The following are medically ne: PICC Line, Leach Catheter Reason for leach catheter: Strict I&O Subjective Review of Systems pt seen and examined at bedside had fever in the morning BP dropping IV fluids started by the surgeon family at bedside platelet count is still 41 ABG revealed resp alkalosis DVT upper extremity reveals Thrombus in the brachial vein and cephalic hold anticoagulants due to recent drop in Hb and multiple Blood transfusions hospice discussion was done by the surgeon with the brother currently in pain, relieved with Toradol changed from ceftriaxone to cefepime plus flagyl Objective vital signs Vital Sign Date Time Temp Pulse Resp B/P (MAP) Pulse Ox O2 Delivery O2 Flow Rate FiO2 03/26/25 12:30 92 24 119/38 (65) 99 03/26/25 12:00 97.5 97.5 03/26/25 04:00 Nasal Cannula* 2 28 Total Intake and Output 03/25/25 03/25/25 03/26/25 15:00 23:00 07:00 Intake Total 1043 ml 897 ml 75 ml Output Total 645 ml 610 ml Balance 1043 ml 252 ml -535 ml medications Current Medications Medications Dose Ordered Sig/Isaura Route Start Time Stop Time Status Last Admin Dose Admin Cefazolin Sodium 50 ml @ 100 mls/hr Q8HR IV 01/13/25 14:00 UNV Vasopressin 20 units/Sodium Chloride 100 ml @ 9 mls/hr Q11H7M IV 01/13/25 18:45 UNV Potassium Chloride 100 ml @ 50 mls/hr Q2H IV 01/16/25 12:45 01/16/25 18:44 UNV Vancomycin HCl 100 ml @ 100 mls/hr DAILY@1200 IV 01/20/25 12:00 UNV Amino Acids 0 ml @ 0 mls/hr PER PHARMACY IV 02/13/25 10:45 Ondansetron HCl 4 mg Q4HPRN PRN IV 02/21/25 09:30 03/12/25 17:08 4 MG Multi-Ingredient Ointment 1 applic DAILY TOP 02/23/25 10:00 03/26/25 09:49 1 APPLIC Diagnostic Test (Pha) 1 strip Q4HR 02/26/25 16:00 Cancel Diagnostic Test (Pha) 1 strip IQ4HR 02/26/25 16:00 UNV Dextrose 50 ml UD PRN IV 02/26/25 16:00 UNV Pantoprazole Sodium 40 mg BID IV 03/08/25 22:00 03/26/25 09:33 40 MG Levothyroxine Sodium 50 mcg DAILY IV 03/09/25 10:00 03/26/25 09:48 50 MCG Lidocaine 1 patch DAILY TOP 03/12/25 10:00 03/26/25 09:49 1 PATCH Micafungin Sodium 100 mg/Sodium Chloride 100 ml @ 100 mls/hr DAILY IV 03/18/25 10:00 03/26/25 13:03 100 MLS/HR Acetaminophen 650 mg Q6HP PRN MN 03/18/25 10:00 03/26/25 08:08 650 MG Ceftriaxone Sodium/Dextrose 50 ml @ 50 mls/hr DAILY IV 03/22/25 10:00 03/26/25 10:36 50 MLS/HR Sodium Chloride 1,000 ml @ 75 mls/hr [id number] IV 03/23/25 10:15 03/26/25 03:26 75 MLS/HR Phenylephrine HCl 80 mg/Sodium Chloride 250 ml @ 7.5 mls/hr Q24H IV 03/23/25 22:45 UNV Hydromorphone HCl 0.5 mg Q3HP PRN IV 03/24/25 12:30 03/26/25 00:40 0.5 MG Daptomycin / Sodium Chloride 50 ml @ 100 mls/hr DAILY IV 03/25/25 10:00 UNV Daptomycin 250 mg/ Sodium Chloride 50 ml @ 100 mls/hr DAILY IV 03/25/25 10:00 03/26/25 14:10 100 MLS/HR Fat Emulsion Intravenous 50 ml/ Potassium Acetate 80 meq/Potassium Phosphate 22 meq/ Magnesium Sulfate 16 meq/ Multivitamins 10 ml/Amino Acids/ Dextrose/Purified Water 1,159 ml @ 48 mls/hr Q24H9M IV 03/25/25 22:00 03/26/25 21:59 03/25/25 22:11 48 MLS/HR Diagnostic Test (Pha) 1 strip Q6HR 03/26/25 12:00 03/26/25 12:00 1 STRIP Insulin Human Regular FOLLOW SLIDING SCALE Q6HR SC 03/26/25 12:00 03/26/25 12:00 2 UNITS Dextrose 50 ml UD IV 03/26/25 09:30 Fat Emulsion Intravenous 50 ml/ Sodium Acetate 60 meq/Sodium Phosphate 40 meq/ Potassium Phosphate 22 meq/ Magnesium Sulfate 18 meq/ Multivitamins 10 ml/Chromium/ Copper/Manganese/ Zinc 1 ml/Amino Acids/Dextrose/ Purified Water 1,360.5 ml @ 57 mls/hr [id number] IV 03/26/25 22:00 03/27/25 21:59 Examination Pt is lying on bed General Appearance: Alert and Oriented x3 HEENT: Atraumatic, Mucous membranes moist/pink, eyes appear yellow Respiratory: Clear to auscultation, Normal air movement, No added sounds Cardiovascular: Regular rate, Normal S1, Normal S2, No murmurs Abdominal: Active bowel sounds, Soft, no distention, no tenderness, colostomy bag in place and 1 CARMEN drain with Serosanguineous bloody fluid Extremities: No pitting edema Skin: No Significant rash, except past surgical scars, jaundiced laboratory and microbiology Laboratory Tests 03/26/25 03:10 Test 03/26/25 03:10 Range/Units Serum Glucose 139 H 74-106 mg/dL Microbiology Date/Time Source Procedure Growth Status 03/20/25 22:15 Blood Blood Culture - Final NO GROWTH AFTER 5 DAYS OF INCUBATION. Complete 03/20/25 08:12 Peritoneal Fluid Gram Stain - Final Complete 03/20/25 08:12 Peritoneal Fluid Anaerobic Culture - Final Complete 03/20/25 08:12 Aerobic Culture - Final Enterococcus faecium - VRE Complete 03/16/25 15:48 Urine - [place] Urine Culture - Final Yeast, not Zoe albicans Complete 02/25/25 11:48 Sputum Gram Stain - Final Complete 02/25/25 11:48 Sputum Respiratory Culture - Final Complete 01/13/25 17:10 Nose MRSA Screen - Final Complete Labs and/or images reviewed: Labs reviewed by me, Image(s) reviewed by me Problem List/Assessment/Plan Problem List/Assessment/Plan Problem List/Assessment/Plan Problem List/Assessment/Plan Neurology # Chronic ischemic changes # Chronic Cortical atrophy - Head CT (01/29): Chronic microangiopathy and cortical atrophy. - reintubated on 02/25/25 during surgery # Extubated on 02/28 Cardiovascular # Septic shock secondary to hollow viscus perforation. # Paroxysmal atrial fibrillation with a second-degree hypercoagulable state currently NSR # Chronic diastolic heart failure with preserved EF 65% # Hypertension. - Echocardiogram (01/15): Normal LV EF (65%), mild LVH, mild LV diastolic dysfunction. - Chest X-ray: Bibasilar atelectasis. - ZEFERINO?DS?-VASc score >5 - cardiology on board - initially on Lovenox therapeutic but Dc'd due to low hemoglobin Pulmonary # Acute hypoxic respiratory failure secondary to bilateral pleural effusion/pneumonia s/p re-intubation, status post extubation 02/28 - monitor with daily CXR - Sputum culture 01/29 Presumptive Zoe albicans and : negative - Reintubated on 02/25. - Chest Physiotherapy ongoing. - extubated Gastrointestinal / Liver # Acute Bacterial Peritonitis due to small bowel perforation vs Perisplenic abscess. s/p multiple laparotomies # Transaminitis secondary to shock. # Anion gap metabolic acidosis due to bowel ischemia and lactic acidosis - CT abdomen/pelvis (02/16): Pneumoperitoneum, extraluminal contrast, perisplenic/subdiaphragmatic collection (7.1 1.1 cm). - Small bowel series (02/11): Normal. 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 Procedures: - First laparotomy (01/13): Resection of perforated small bowel, enteroenterostomy. - Second laparotomy (02/04): Resection near previous perforation, jejunal anastomosis. - Third laparotomy (02/25): Resection of distal ileum, end-to-end anastomosis, ileostomy. - fourth laparotomy(03/20): Cultures: - Peritoneal fluid (01/13): E. coli, Klebsiella pneumoniae (sensitive to meropenem). - Peritoneal fluid (02/17): E. coli, Stenotrophomonas maltophilia. - Aspirate Showed(03/02): VRE - IR-guided pigtail drain placed; drained 50 cc purulent fluid. - CARMEN drains placed in 4 quadrants initially and now patient has only 1 CARMEN drain - Initially NPO, TPN initiated. - NG tube placed. - Initially patient is on Levofloxacin, Flagyl (02/03); Vancomycin and Meropenem (); Meropenem (); Vancomycin () then eventually switched to above antimicrobials - Started Daptomycin (03/08), Bactrim stopped (03/08), stopped daptomycin - added micafungin - (03/17) - 2nd opinion to be given by Dr. Rivera -Gastrografin scan(03/05) showed Contrast extravasation is seen in the proximal small bowel, possibly left sided jejunum near the surgical drain can be seen with a leak. -patient kept NPO Genitourinary / Kidney # ISRRAEL likely secondary to shock/volume depletion- resolved - Nephrology consulted for ISRRAEL. Endocrine # Hypothyroidism: TSH 42.29, low T4 # Type 2 diabetes mellitus: HbA1c 8.2%.- # Episodes of hypoglycemia. # Hypothyroidism - continuously monitoring blood glucose and on ISS - Started on Levothyroxine 50 daily Metabolic Hypokalemia. Hyperkalemia. Hyponatremia: Hypophosphatemia Nutrition: Severe protein malnutrition. Hematology # Acute on chronic anemia (hemodilution/post-surgical). # Severe thrombocytopenia, HIT # Acute DVT of right upper extremity. - Ultrasound (01/17): Partial thrombus in right internal jugular and cephalic veins. - hemoglobin today 6.9, transfused 1 more unit of PRBC 02/28 - Transfused total 8 units PRBC, 2 platelet units. - continuously monitor H&H - hold blood thinners - 03/25 extremity DVT showed Thrombus is present in the left brachial vein and bilateral cephalic veins. Musculoskeletal / Skin # Rib fracture due to fall. Nutrition: TPN initiated. Bowel Regimen: As needed. GI Prophylaxis: Pantoprazole bid DVT Prophylaxis: Lovenox (held/ Dc'd due to low hemoglobin). Lines / Tubes / Devices Airway: Intubated on 01/14, extubated on 02/07, reintubated on 02/25 extubated 02/28 Vascular Access: PICC line placed in right upper thigh on 01/26. Drips: Dc'd pressors and sedatives. Urinary: Leach catheter placed on 01/14, exchanged on 02/14. Exchanged on 03/17. CARMEN drains in 1 quadrant. 03/26/25 Patient had fever in the morning, BP dropping, IV fluids started by the surgeon, platelet count is still 41 ABG revealed resp alkalosis ( could be early sepsis) DVT upper extremity reveals Thrombus in the brachial vein and cephalic hold anticoagulants due to recent drop in Hb and multiple Blood transfusions currently in pain, relieved with Toradol changed from ceftriaxone to cefepime plus flagyl family at bedside, goals of care and hospice discussion was done by the surgeon with the brother >21 min, FULL CODE as of now Critical care time excluding procedures > 77 minutes Case discussed with Plan discussed with: Patient, Other Dietary Evaluation Review Comments: Nutrition Recommendation: 1) TPN to meet at least 75% estimated needs within 7 days 2) Monitor NPO status, lab values, wt trend, I/O Expected Outcomes/Goals: To meet >75% estimated needs Lab values to improve Fu 2-3 days Is there a minimum of two crit: Yes CC Plasma Assessment Blood Product Administration S: [id number] BHUPINDER URBINA RESIDENT Mar 26, 2025 14:38
[2025-03-26] MEDS ORDERED: SODIUM CHLORIDE 0.9% 1,000 ML IV SCH (15:15)
[2025-03-26 16:19] LABS: Lactic Acid w/Reflex 2.2 mmol/L (0.4-2.0)
[2025-03-26] MEDS: SODIUM CHLORIDE 0.9% 1,000 ML IV SCH (17:00)
[2025-03-26] MEDS: TPN PER PHARMACY IV NR (20:48)
[2025-03-26] MEDS: CEFEPIME 2GM/50ML NS 50 ML IV SCH (22:14)
[2025-03-27] VITALS (86 sets, daily range): BP systolic 98–246; BP diastolic 21–194; PULSE 105–132; RESP 13–31; TEMP 97.4–100.5; O2SAT 93–100
[2025-03-27 02:10] LABS: Base Excess -5.7 mmol/L (-2.0-3.0)
[2025-03-27] MEDS: hydrALAZINE HCL 20 MG/ML VL IV PRN (02:14)
[2025-03-27 04:40] LABS: Hematocrit 28.6 % (36.0-46.0); Hemoglobin 9.6 g/dL (12.2-16.2)
[2025-03-27 04:41] LABS: Mean Corpuscular Hemoglobin 33.6 pg (28.0-32.0); Mean Corpuscular Volume 99.8 fL (80.0-100.0); Nucleated Red Blood Cells % 0.2 %
[2025-03-27 04:53] LABS: Anion Gap 13 (5-15); Calcium 8.8 mg/dL (8.7-10.4); Glucose 106 mg/dL (74-106); Magnesium 2.3 mg/dL (1.6-2.6); Potassium 4.9 mmol/L (3.5-5.1); Sodium 142 mmol/L (136-145)
[2025-03-27 04:54] LABS: Alanine Aminotransferase 67 U/L (7-40); Albumin 1.6 g/dL (3.2-4.8); Alkaline Phosphatase 185 U/L (46-116); Bilirubin, Total 11.1 mg/dL (0.2-1.0); Blood Urea Nitrogen 42 mg/dL (9-23); Carbon Dioxide 18 mmol/L (20-31); Chloride 111 mmol/L (98-107)
[2025-03-27 04:59] LABS: BUN/Creatinine Ratio 40.4 (10.0-20.0)
[2025-03-27 05:01] LABS: Total Protein 4.3 g/dL (5.7-8.2)
[2025-03-27] MEDS: LACTULOSE 20Gm/30ML SOLN NG SCH (05:44)
--- NOTE | 2025-03-27 05:49 | DVH ---
MEDICAL RECORDS NUMBER: [id number] PROCEDURE: XY CHEST PORTABLE DATE: 03/27/2025 05:12 AM HISTORY: sob Views:1 COMPARISON: XY CHEST PORTABLE on DOS: 03/26/25, XY CHEST XRAY 1 VIEW on DOS: 03/24/25, XY CHEST XRAY 1 VIEW on DOS: 03/23/25, XY CHEST PORTABLE on DOS: 03/21/25, XY CHEST XRAY 1 VIEW on DOS: 03/20/25 FINDINGS/IMPRESSION: Lungs: Bilateral infiltrates and pleural fluid is seen. No large consolidation is seen Mediastinum: Mediastinal structures appear unremarkable... Skeletal: The skeletal structures appear unremarkable.
--- NOTE | 2025-03-27 09:42 | DVHPN2 ---
Progress Note Date Seen: Mar 27, 2025 Has the PT tested + for MRSA If YES, has PT been informed?: No Medical Necessity Reason Pt with a Central, PICC or Fol: Yes The following are medically ne: PICC Line, Leach Catheter Reason for leach catheter: Strict I&O Objective vital signs Vital Sign Date Time Temp Pulse Resp B/P (MAP) Pulse Ox O2 Delivery O2 Flow Rate FiO2 03/27/25 07:28 123 22 120/71 03/27/25 06:45 100 03/27/25 06:00 Nasal Cannula* 2 28 03/27/25 04:00 98.4 98.4 Total Intake and Output 03/26/25 03/26/25 03/27/25 15:00 23:00 07:00 Intake Total 3984 ml 1013 ml 849 ml Output Total 700 ml 1150 ml Balance 3984 ml 313 ml -301 ml medications Current Medications Medications Dose Ordered Sig/Isaura Route Start Time Stop Time Status Last Admin Dose Admin Cefazolin Sodium 50 ml @ 100 mls/hr Q8HR IV 01/13/25 14:00 UNV Vasopressin 20 units/Sodium Chloride 100 ml @ 9 mls/hr Q11H7M IV 01/13/25 18:45 UNV Potassium Chloride 100 ml @ 50 mls/hr Q2H IV 01/16/25 12:45 01/16/25 18:44 UNV Vancomycin HCl 100 ml @ 100 mls/hr DAILY@1200 IV 01/20/25 12:00 UNV Amino Acids 0 ml @ 0 mls/hr PER PHARMACY IV 02/13/25 10:45 Ondansetron HCl 4 mg Q4HPRN PRN IV 02/21/25 09:30 03/12/25 17:08 4 MG Multi-Ingredient Ointment 1 applic DAILY TOP 02/23/25 10:00 03/26/25 09:49 1 APPLIC Diagnostic Test (Pha) 1 strip Q4HR 02/26/25 16:00 Cancel Diagnostic Test (Pha) 1 strip IQ4HR 02/26/25 16:00 UNV Dextrose 50 ml UD PRN IV 02/26/25 16:00 UNV Pantoprazole Sodium 40 mg BID IV 03/08/25 22:00 03/26/25 20:44 40 MG Levothyroxine Sodium 50 mcg DAILY IV 03/09/25 10:00 03/26/25 09:48 50 MCG Lidocaine 1 patch DAILY TOP 03/12/25 10:00 03/26/25 09:49 1 PATCH Micafungin Sodium 100 mg/Sodium Chloride 100 ml @ 100 mls/hr DAILY IV 03/18/25 10:00 03/26/25 13:03 100 MLS/HR Acetaminophen 650 mg Q6HP PRN IN 03/18/25 10:00 03/26/25 08:08 650 MG Phenylephrine HCl 80 mg/Sodium Chloride 250 ml @ 7.5 mls/hr Q24H IV 03/23/25 22:45 UNV Hydromorphone HCl 0.5 mg Q3HP PRN IV 03/24/25 12:30 03/27/25 06:58 0.5 MG Daptomycin / Sodium Chloride 50 ml @ 100 mls/hr DAILY IV 03/25/25 10:00 UNV Daptomycin 250 mg/ Sodium Chloride 50 ml @ 100 mls/hr DAILY IV 03/25/25 10:00 03/26/25 14:10 100 MLS/HR Diagnostic Test (Pha) 1 strip Q6HR 03/26/25 12:00 03/27/25 05:44 1 STRIP Insulin Human Regular FOLLOW SLIDING SCALE Q6HR SC 03/26/25 12:00 03/27/25 05:44 2 UNITS Dextrose 50 ml UD IV 03/26/25 09:30 Fat Emulsion Intravenous 50 ml/ Sodium Acetate 60 meq/Sodium Phosphate 40 meq/ Potassium Phosphate 22 meq/ Magnesium Sulfate 18 meq/ Multivitamins 10 ml/Chromium/ Copper/Manganese/ Zinc 1 ml/Amino Acids/Dextrose/ Purified Water 1,360.5 ml @ 57 mls/hr [id number] IV 03/26/25 22:00 03/27/25 21:59 03/26/25 20:48 57 MLS/HR Cefepime HCl 50 ml @ 12.5 mls/hr Q8HR IV 03/26/25 22:00 03/27/25 05:44 12.5 MLS/HR Metronidazole 100 ml @ 100 mls/hr Q8HR IV 03/26/25 22:00 03/27/25 05:30 100 MLS/HR Hydralazine HCl 10 mg Q6HP PRN IV 03/27/25 02:00 03/27/25 02:14 10 MG Lactulose 30 ml TID NG 03/27/25 06:00 03/27/25 05:44 30 ML Fat Emulsion Intravenous 50 ml/ Sodium Acetate 80 meq/Sodium Phosphate 20 meq/ Magnesium Sulfate 16 meq/ Multivitamins 10 ml/Amino Acids/ Dextrose/Purified Water 1,659 ml @ 69 mls/hr Q24H3M IV 03/27/25 22:00 03/28/25 21:59 laboratory and microbiology Laboratory Tests 03/27/25 03:50 Test 03/27/25 03:50 Range/Units Serum Glucose 106 74-106 mg/dL Problem List/Assessment/Plan Problem List/Assessment/Plan 01/14/25 afebrile, low dose BP support, received transfusion, I believe her decreased hematocrit is due to hemodilution. abdomen non distended, soft, wound clean and well approximated, drainage serous . remains intubated and sedated 01/16/25 ALKALOSIS, ABDOMEN NON DISTENDED, SOFT, DRAINAGE SEROUS, WOUND CLEAN AND WELL APPROXIMATED 01/17/25 improved, thrombocytopenia possibly made worse by Fluconazole,will DC, abdomen non distended, wound well approximated without infection, TATY drainage serous, CVP 6, good urine output. 01/18/25 abg reviewed, ,abdomen soft, non distended, TATY drainage clear serous, no bowel activity, febrile, urine output ok, continues with thrombocytopenia,pt and inr slightly elevated. prognosis grave. 01/20/25remains sedated on ventilator, abdomen soft, non distended, faint bowel sounds auscultated by nurse, wound clean and well approximated, TATY drainage clear serous. continues with thrombocytopenia, still behind on intravascular volume( BUN and Creatinine elevated), i would give more IV fluids and DC vancomycin. 01/25/25 afebrile, normotensive, wound clean and well approximated, TATY drainage serous, abdomen non distended, soft, gastrografin small bowel series shows non obstructed GI tract and no evidence of extravasation. It is OK to initiate enteric feedings. 01/29/25 16 DAYS POST OPERATIVELY TRHE TATY DRAINAGE WHICH HAD CONSISTENTLY BEEN SEROUS OR SERO SANGUINEOUS HAS BECOME "DIRTY" BROWNISH DISCOLORATION, HER WOUND IS CLEAN AND WELL APPROXIMATED AND HER ABDOMEN IS SOFT AND NON DISTENDED, CT SCAN SHOWS SO0ME FLUID AND ACCUMULATION OF FLUID AROUND THE SPLEEN, WILL REQUEST CT GUIDED ASPIRATION OF SAME, WILL ORDER IRRIGATION OF DRAINS. SHE SI AFEBRILE AND MAINTAINS NORMAL BLOOD PRESSURE, HER WBC IS NORMAL. 01/30/25 improved, awake, being weaned off vent. abdomen non distended, non tender, taty drainage clearing with irrigation 02/02/25clinically unchanged, gastrografin small bowel series reported and normal, no extravasation reported, will order a follow ujp KUB for tomorrow AM 02/03/25 PATIENT HAD A GASTROGRAFIN SMALL BOWEL SERIES AND A FOLLOW UP KUB X RAYS NEITHER ONE OF WHICH SHOW EXTRAVASATION OF CONTRAST OR EVIDENCE OF FREE CONTRAST IN THE PERITONEAL CAVITY. THERE IS HOWEVER VISCOUS, BROWNISH FLUID DRAINING VIA BOTH TATY DRAINS AND THROUGH INFRAUMBILICAL PORTION OF MIDLINE WOUND, I REMOVED THE RICHIE FROM THE 3 CM SECTION OF THE INFRAUMBILICAL WOUND AND EVACUATED ABOUT 30 CC OF THIS FLUID AND INSTRUCTED THE NURSE TO PLACE A STOMA APPLIANCE ON THIS OPENING. 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 TODAY HER WBC IS ELEVATED, ABDOMEN CONTINUES TO BE NON DISTENDED, SOFT, BUT SHE DOES HAVE SLIGHT TENDERNESS IN THE PERIUMBILICAL AREA. I WILL TREAT THIS EXPECTANTLY FORM THE TIME BEING IN THE HOPE THAT THIS IS A "CONTROLLED" FISTULA AND HOPEFUL WILL HEAL SPONTANEOUSLY WITH NPO AND NUTRITIONAL SUPPORT. WILL WATCH CLOSELY, AFTER A FEW DAYS WILL GET A FISTULOGRAM TO PIN POINT THE ENTERIC ORIGIN OF THE FISTULIZATION. CONTINUE NGT SUCTION AND DRAIN IRRIGATION ORDERED02/05/25 02/05/25 remains sedated and intubated?ventilated, abdomen non distended soft, wound vac in place. TATY drainage serosanguineous 02/08/25 EXTUBATED, GOOD INSPIRATORY EFFORT, BP NML WITHOUT PRESSOR SUPPORT, ABDOMEN SOFT, NON DISTENDED, APPROPRIATELY TENDER, LABS REVIEWED. NO CHANGES TODAY OTHER THAN ALLOW ICE CHIPS PO. WILL ORDER GASTROGRAFIN SMALL BOWEL FOLLOWTHROUGH FOR Friday02/09/25 awake cooperative, wound vac in place, abdomen soft, non distended, appropriately tender, TATY drainage brownish discoloration, will irrigate, her WBC is normal and she is afebrile and normotensive. gastrografin tomorrow 02/10/25 AWAKE,COMFORTABLE, DENIES PAIN, ABDOMEN NON DISTENDED APPROPRIATELY TENDER, WOUND CLEAN AND WELL APPROXIMATED, DRAINS BEING IRRIGATED, LABS OK, GOOD URINE OUTPUT. "SURGICALLY" STABLE 02/11/25 feels well, passing flatus. is hungry, abdomen soft non distended, drainage clearing with irrigation, will wait for Gastrografin small bowel series to be completed, if normal will start po clear liquids 02/12/25 no nausea, change in TATY drainage colort, appears to contaIN, BILE, WILL DC po CLEAR LIQUIDS, CONTINUE ICE CGHIPS, SEND DRAin fluid for amylase and bilirubin, 02/13/25 states she feels well, abdomen non tender, non distended, wound clean and well approximated. drainage slightly clearer, keep npo for now, needs to resume TPN 02/14/25 PATIENT C/O BEING COLD BUT HAS NO PAIN, DRAINAGE SEEMS TO BE CLEARING, SHE HAD A BOWEL MOVEMENTS, ABDOMEN IS SOFT AND NON TENDER, NON DISTENDED, WOUND IS CLEAN AND WELL APPROXIMATED, WILL CONTINUE NPO STATUS AMYLASE ON TATY DRAINAGE FLUID IS GOING TO TAKE SEVERAL DAYS TO BECOME AVAILABLE. CONTINUE TPN 02/16/25 DENIES PAIN,STATES SHE FEELS BETTER, WOUND VAC IN PLACE, ABDOMEN NON TENDER,NON DISTENDED, TATY DRAINAGE SMALL TO MODERATE , WILL CONTINUE IRRIGATING DRAINS, WILL REQUEST GI CONSULT TO CONSIDER ENDOSCOPY. WBC NL,H/H STABLE , ALBUMIN STILL VERY LOW. , 02/17/25 CT SCAN REVIEWED, I SUSPECT THERE IS A SMALL LEAK FROM THE APPEARANCE OF IMAGING ALTHOUGH RADIOLOGIST RECOMMENDED REPEAT CT SCAN (ORDERED). THE DRAINAGE IS SMALL AMOUNT BUT NOW IT IS WITH AN ODOR, I WILL RE INSERT NGT TO ATTEMPT DECREASING THE GASTRIC CONTENTS. ABDOMEN IS SOFT, APPROPRIATELY TENDER, WOUND VAC IN PLACE 02/18/25 AFEBRILE, NORMOTENSIVE4, WBC NL, ALL IMAGING NEGATIVE, ANGIOGRAM SHOWS NO EVIDENCE OF HYPOPERFUSION, CONTRAST AND NON CONTRAST CT SCAN FAILED TO SHOW ANY EVIDENCE OF EXTRAVASATION, THE DRAINAGE CONTINUES TO BE BROWNISH DISCOLORED AND FOULS SMELLING, EXPLAINED TO PT'S SON THAT I HAVE NO EVIDENCE OF ANY GI LEAKAGE, WILL GET A GASTROGRAFIN ENEMA ON FRIDAY, I AM TRYING TO REFRAIN FROM OPERATING ON THE FRAIL ELDERLY PATIENT FOR THE THIRD TIME, SHE WILL NOT TOLERATE ANOTHYER OPERATION WELL. HER ALBUMIN REMAINS VERY LOW.WOUND VAC OK 02/19/25 feels ok,c/o being cold, abdomen soft. non distended, minimally tender, drainage seems to be little less, labs ok, continue as is 02/22/25 she feels well, abdomen is non tender, soft and non distended, drainage slightly less in volume, still discolored,gastrografin enema reviewed by me ( no radiologist/s interpretation available), she has not evacuated the gastrografin according to nurse. 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 will proceed with operation on 02/25/25 at 0715 AM. 02/27/25 SLIGHT IMPROVEMENT, ABDOMEN SOFT, NON DISTENDED, STOMA VIABLE WITHOUT FUNCTION, OK TO TRY GETTING OFF VENTILATOR. 03/01/25 extubated, conversant,oriented, abdomen non distended, appropriately tender, wound clean ans well approximated, drainage serous, stoma viable and with minimal liquid,no gas. will sips of water and ice po 03/02/25 awake comfortable, denies pain, abdomen appropriately tender, wound vac in place, afebrile, normotensive, drainage serosanguineous, cbc stable, stoma viable and with minimal output will resume irrigation of drain 03/03/25 awake ,cooperative, good inspiratory effort, afebrile, normotensive, wound covered with wound vac, drainage serous but cloudy(cultures ordered) abdomen non tender, stoma viable with minimal output. will order gastrografin ugi with small bowel follow throught for tomorow 03/04/25 vital signs stable, good urine output, wound vac ok, abdomen non tender. Xray pending 03/05/25 UGI X RAY SHOWS A NEW AREA OF LEAK,BEING ADEQUATELY DRAINED BY THE TATY DRAIN WHICH IS ADJACENT TO IT, HER ABDOMEN IS NON TENDER. WILL RESUME STRICT NPO STATUS, KEEP NGT TO CONTINUOUS SUCTION, I HAVE CALLED HER SON ILIANA AND EXPLAINED THAT PROBABLY THE INTESTINAL WALL IS NOT HEALING WHENEVER WE PLACE SUTURE AT SITES OF ANASTOMOSES. HER ABDOMEN IS NON TENDER, I WILL TREAT THIS CONSERVATIVELY FOR SOME TIME TO SEE IF THE LEAK MAY SHOW SOME EVIDENCE OF HEALING. YESTERDAY THERE WAS 500 CC OF TATY DRAINAGE. HER ALBUMIN LEVEL IS SLOWLY IMPROVING BUT STILL REMAINS LOW. IT APPEARS THAT THE SUTURES IN HER INTESTINAL ANASTOMOSES HOLD FOR ABOUT A WEEK AND THEN BREAK DOWN. (DRAINAGE TURNED FROM SEROSANGUINEOUS TO GREENISH YESTERDAY. 03/06/25 drainage slightly less in volume, still enteric contents abdomen softn and non tender, non distended. wound vac changed, wound healing, no chjanges for now. discussed with family. 03/08/29 feels better, no pain, abdomen soft and non tender, drainage minimally less, family at bedside, answered questions 03/09/25 son at bedside, patient feels "well" wants to eat, explained that we need to keep her intestine at rest' afebrile, normotensive, drainage less, abdomen non tender, wound vac in p-lace wbc normal today. h/h stable/ continue npo aqnd ngt there is stool in stoma appliance 03/13/25 SLOW IMPROBVEMENT,ABDOMEN NON TENDER, NON DISTENDED, SOME STOOL IN STOMA, DRAINAGE SLIGHTLY LESS VOLUME, CONTINUE IS, NEEDS MOR IV FLUYID (ORDERS GIVEN) 03/15/25 stable, having the NG tube clamped did not cause distress nor did it result in increase of the TATY drainage ,I have therefore removed the NG tube, she does need to remain NPO however, if there are no major changes in her condition in the next 48 hours she would be stable to transfer to a SNF on TPN, I will gladly make "house calls " on here at the facility . abdomen remains non distended, non tender, wound awaiting a wound vac but it is without evidence of infection, I have digitally probed the styoma which has inverted on itself, it is patent ancd without stenosis below the skin level. 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 drainage unchanged 03/22/25 doing well ,drainag clear, stoma viable and functioning, abdomen soft and appropriately tender, wound vac, labs reviewed. 03/25/25 until yeswterday she had minimal serous drainage in the TATY drain, this morning however tghe drainage is more voluminous and apperas to contain bile, her abdomen is non distended and appropriately tender, however i believe that the bowel has developed another "leak", I CALLED PATIENT SON AND EXPLAINED THE SITUATION TO HIM 03/26/25 transient hypotension responded to iv fluid bolus, drainage today is serosanguineous and there is some output of enteric contents through the ileostomy. have asked nurse to deflate the balloon on the leach catheter inside the ileostomy. abdomen non distended less tender than yesterday. she is feeling better than she did yesterday. I had a regine discussion with patient's son and told him that his mom will most likely not recover from this condition and if it was my mother I would give some consideration to taking her home on hospice. and I explained how hospice functions. He will discuss with family. 03/27/25 diastolic hypertension, abdomen soft, nopn disten ded, patient asleep, wound unchanged, DRAINAGE CLOUDY, VOLUME UNCHANGED, ILEOSTOMY OUTPUT IMPROVED, AWAITING FAMILY'S DECISION RE HOSPICE DISCHARGE l Plan discussed with: Other Dietary Evaluation Review Comments: Nutrition Recommendation: 1) TPN to meet at least 75% estimated needs within 7 days 2) Monitor NPO status, lab values, wt trend, I/O Expected Outcomes/Goals: To meet >75% estimated needs Lab values to improve Fu 2-3 days Is there a minimum of two crit: Yes MELVA RAMESH MD Mar 27, 2025 09:42
--- NOTE | 2025-03-27 13:06 | DVHPNRES ---
Progress Note Date Seen: Mar 27, 2025 Resident Creating Document: ASHLEY TREJO RESIDENT Has the PT tested + for MRSA If YES, has PT been informed?: No Medical Necessity Reason Pt with a Central, PICC or Fol: Yes The following are medically ne: PICC Line, Leach Catheter Reason for leach catheter: Strict I&O Subjective Review of Systems This is a 80-year-old lady with past medical history of hypertension, AFib (on Eliquis), diabetes type 2, CKD, came to the hospital due to abdominal pain, and constipation. Admitted on 01/13/2025. Found to have peritonitis due to bowel perforation, and underwent emergent laparotomy with subsequent resection of perforated small bowel and enteroenterostomy. Due to abnormal CARMEN drainage, second exploratory laparotomy performed on 02/04 and found to have perforation near to previous perforation area, underwent resection of area with subsequent anastomosis of proximal jejunal loops. 03/12/2025: Patient seen in the ICU. Continued to be NPO. On 2 L oxygen via nasal cannula. Wound VAC is mild functional, yellowish drainage from incision site, CARMEN drain is functional, draining greenish bile. No signs of fever. No any other night complaints. 03/13/2025: Patient seen and ICU. Patient is to be continued on NPO. Is on room air, wound care to be done, wet-to-dry. Surgery following, low intermittent suction of NG tube, 130 mL of greenish fluid from CARMEN drain, 50 mL from NG tube noted. 03/14/2025: Patient seen in ICU. Patient is to be continued on NPO, is on room air, wound care is wet-to-dry, patient is getting TPN, had 145 removal of greenish drainage from CARMEN drain. Patient has nonblanching redness on sacrum. Today she came complains of 8/10 pain in the abdomen and back. NG tube was clamped. Following surgery. 03/15/25: patient seen in the ICU. She is still NPO. on room air, wound cares were too dry, NG tube removed. Still greenish drainage from CARMEN drain, blackish stool in the colostomy bag. She still complains of pain in the abdomen, back. PT is able to get her to wheelchair. surgery following. 03/16/2025: Patient seen in the ICU. She is still NPO, on TPN, on room air wound care is wet to dry NG tube was removed yesterday. There is blackish stool, blood seen in the colostomy bag today. She still complains of abdominal pain, there was greenish drainage in the wound. Foleys changed, aspirate culture ordered, 03/17/25: Patient seen in the ICU. Patient is still NPO, on TPN, on room air, wound VAC needs component. 80 mL from CARMEN drain. Second opinion by Dr. Rivera to be given. Micafungin added, morphine sulfate changed to 2 mg IV q.4 PRN. 03/18/25: Patient seen in ICU. Patient is still NPO, on TPN, on room air, CARMEN drain in place. Second opinion to be given by Dr. Rivera. 03/19/25: Patient is seen in ICU p.o. continue be NPO on TPN. Plan for laparotomy procedure tomorrow a.m.. No any other complaints. 03/20/2025: Patient seen in the ICU, laparotomy was done today, patient is on 3 L nasal oxygen. Patient is drowsy, did not complain of any pain. Patient is on Levophed,. NG Tube in place, CARMEN drains in place. 03/21/25: Patient seen in ICU, laparotomy was done yesterday, patient is on 3 L nasal oxygen, patient complains of 8/10 pain, is on Levophed, TPN. NG tube with low intermittent suction. Patient has a CARMEN drain with 30 mL serosanguineous bloody discharge. wound VAC in place. Lactic acid is trending down, WBC count trending down, patient was given 1 PRBC and hemoglobin is stable at 8.7. Patient antibiotics were switched from meropenem to ceftriaxone. Patient is on new 40, vasopressin 0.03 03/22/2025: Patient seen in ICU, patient is on room air, complains of pain, wound VAC to be changed, 1 PRBC was given due to low hemoglobin, H and H was checked anf Hb is7.9. 03/23/25: Patient seem in ICU, patient is on room air, complains of 8/10, wound VAC changed, Hb stable, torodol once given, patient today was confused. tsh level decreased. 03/24/25: patient seen in ICU, patient is on room air, complains of 8/10 pain. Toradol once was given patient is confused today. twenty-five mL bloody drainage from the CARMEN drain. Patient had episode of fever. TPN level of decreased to 50. PT eval to be done. Daptomycin added. 03/25/2025: Patient seen in ICU, patient is on room air. Patient complains of 10/10 pain. Patient was less confused today. patient is having dry dressings today as wound is leaking and wound VAC to be placed. Wound care to be done. Patient's platelets are dropping. Aspirate culture showed VRE and patient is started on daptomycin. Patient appears jaundiced, extremity DVT showed Thrombus is present in the left brachial vein and bilateral cephalic veins. 03/27/2025: Patient seen in ICU, patient is on 1 L oxygen. Patient is still confused, patient is still having dry dressing today and wound VAC is to be placed. Platelets are still 41. Blood culture shows Gram-negative rods preliminary. Patient is started on cefepime, Flagyl. Patient is still jaundiced. Patient drained 450 mL dark green fluid from CARMEN drain. Patient had high blood pressure. An ammonia level was high so was lactulose was given. Patient's family to discuss about hospice tomorrow. Objective vital signs Vital Sign Date Time Temp Pulse Resp B/P (MAP) Pulse Ox O2 Delivery O2 Flow Rate FiO2 03/27/25 10:00 20 96 Nasal Cannula* 1 24 03/27/25 10:00 118 03/27/25 08:45 126/78 (94) 03/27/25 07:30 99.1 99.1 Total Intake and Output 03/26/25 03/26/25 03/27/25 15:00 23:00 07:00 Intake Total 3984 ml 1013 ml 849 ml Output Total 700 ml 1150 ml Balance 3984 ml 313 ml -301 ml medications Current Medications Medications Dose Ordered Sig/Isaura Route Start Time Stop Time Status Last Admin Dose Admin Cefazolin Sodium 50 ml @ 100 mls/hr Q8HR IV 01/13/25 14:00 UNV Vasopressin 20 units/Sodium Chloride 100 ml @ 9 mls/hr Q11H7M IV 01/13/25 18:45 UNV Potassium Chloride 100 ml @ 50 mls/hr Q2H IV 01/16/25 12:45 01/16/25 18:44 UNV Vancomycin HCl 100 ml @ 100 mls/hr DAILY@1200 IV 01/20/25 12:00 UNV Amino Acids 0 ml @ 0 mls/hr PER PHARMACY IV 02/13/25 10:45 Ondansetron HCl 4 mg Q4HPRN PRN IV 02/21/25 09:30 03/12/25 17:08 4 MG Multi-Ingredient Ointment 1 applic DAILY TOP 02/23/25 10:00 03/27/25 09:49 1 APPLIC Diagnostic Test (Pha) 1 strip Q4HR 02/26/25 16:00 Cancel Diagnostic Test (Pha) 1 strip IQ4HR 02/26/25 16:00 UNV Dextrose 50 ml UD PRN IV 02/26/25 16:00 UNV Pantoprazole Sodium 40 mg BID IV 03/08/25 22:00 03/27/25 09:48 40 MG Levothyroxine Sodium 50 mcg DAILY IV 03/09/25 10:00 03/27/25 09:48 50 MCG Lidocaine 1 patch DAILY TOP 03/12/25 10:00 03/27/25 09:48 1 PATCH Micafungin Sodium 100 mg/Sodium Chloride 100 ml @ 100 mls/hr DAILY IV 03/18/25 10:00 03/27/25 09:48 100 MLS/HR Acetaminophen 650 mg Q6HP PRN WV 03/18/25 10:00 03/26/25 08:08 650 MG Phenylephrine HCl 80 mg/Sodium Chloride 250 ml @ 7.5 mls/hr Q24H IV 03/23/25 22:45 UNV Hydromorphone HCl 0.5 mg Q3HP PRN IV 03/24/25 12:30 03/27/25 06:58 0.5 MG Daptomycin / Sodium Chloride 50 ml @ 100 mls/hr DAILY IV 03/25/25 10:00 UNV Daptomycin 250 mg/ Sodium Chloride 50 ml @ 100 mls/hr DAILY IV 03/25/25 10:00 03/26/25 14:10 100 MLS/HR Diagnostic Test (Pha) 1 strip Q6HR 03/26/25 12:00 03/27/25 12:16 1 STRIP Insulin Human Regular FOLLOW SLIDING SCALE Q6HR SC 03/26/25 12:00 03/27/25 12:25 2 UNITS Dextrose 50 ml UD IV 03/26/25 09:30 Fat Emulsion Intravenous 50 ml/ Sodium Acetate 60 meq/Sodium Phosphate 40 meq/ Potassium Phosphate 22 meq/ Magnesium Sulfate 18 meq/ Multivitamins 10 ml/Chromium/ Copper/Manganese/ Zinc 1 ml/Amino Acids/Dextrose/ Purified Water 1,360.5 ml @ 57 mls/hr [id number] IV 03/26/25 22:00 03/27/25 21:59 03/26/25 20:48 57 MLS/HR Cefepime HCl 50 ml @ 12.5 mls/hr Q8HR IV 03/26/25 22:00 03/27/25 05:44 12.5 MLS/HR Metronidazole 100 ml @ 100 mls/hr Q8HR IV 03/26/25 22:00 03/27/25 05:30 100 MLS/HR Hydralazine HCl 10 mg Q6HP PRN IV 03/27/25 02:00 03/27/25 02:14 10 MG Lactulose 30 ml TID NG 03/27/25 06:00 03/27/25 05:44 30 ML Fat Emulsion Intravenous 50 ml/ Sodium Acetate 80 meq/Sodium Phosphate 20 meq/ Magnesium Sulfate 16 meq/ Multivitamins 10 ml/Amino Acids/ Dextrose/Purified Water 1,659 ml @ 69 mls/hr Q24H3M IV 03/27/25 22:00 03/28/25 21:59 Examination Pt is lying on bed General Appearance: Alert and Oriented x2 HEENT: Atraumatic, Mucous membranes moist/pink, eyes appear yellow Respiratory: Clear to auscultation, Normal air movement, No added sounds Cardiovascular: Regular rate, Normal S1, Normal S2, No murmurs Abdominal: Active bowel sounds, Soft, no distention, no tenderness, colostomy bag in place and 1 CARMEN drain with dark green fluid. Extremities: No pitting edema Skin: No Significant rash, except past surgical scars, jaundiced Neuro: more alert and oriented Nurse was there as mosaic tiler during examination laboratory and microbiology Laboratory Tests 03/27/25 03:50 Test 03/27/25 03:50 Range/Units Serum Glucose 106 74-106 mg/dL Microbiology Date/Time Source Procedure Growth Status 03/26/25 00:08 Blood Blood Culture - Preliminary NO GROWTH AFTER 24 HOURS OF INCUBATION. Resulted 03/20/25 08:12 Peritoneal Fluid Gram Stain - Final Complete 03/20/25 08:12 Peritoneal Fluid Anaerobic Culture - Final Complete 03/20/25 08:12 Aerobic Culture - Final Enterococcus faecium - VRE Complete 03/16/25 15:48 Urine - [place] Urine Culture - Final Yeast, not Zoe albicans Complete 02/25/25 11:48 Sputum Gram Stain - Final Complete 02/25/25 11:48 Sputum Respiratory Culture - Final Complete 01/13/25 17:10 Nose MRSA Screen - Final Complete Problem List/Assessment/Plan Problem List/Assessment/Plan Neurology # Chronic ischemic changes # Chronic Cortical atrophy - Head CT (01/29): Chronic microangiopathy and cortical atrophy. - reintubated on 02/25/25 during surgery # Extubated on 02/28 Cardiovascular # Septic shock secondary to hollow viscus perforation. # Paroxysmal atrial fibrillation with a second-degree hypercoagulable state currently NSR # Chronic diastolic heart failure with preserved EF 65% # Hypertension. - Echocardiogram (01/15): Normal LV EF (65%), mild LVH, mild LV diastolic dysfunction. - Chest X-ray: Bibasilar atelectasis. - ZEFERINO?DS?-VASc score >5 - cardiology on board - initially on Lovenox therapeutic but Dc'd due to low hemoglobin - Labetalol PRN Pulmonary # Acute hypoxic respiratory failure secondary to bilateral pleural effusion/pneumonia s/p re-intubation, status post extubation 02/28 - monitor with daily CXR - Sputum culture 01/29 Presumptive Zoe albicans and : negative - Reintubated on 02/25. - Chest Physiotherapy ongoing. - extubated 02/28 Gastrointestinal / Liver # Acute Bacterial Peritonitis due to small bowel perforation vs Perisplenic abscess. s/p multiple laparotomies # Transaminitis secondary to shock. # Anion gap metabolic acidosis due to bowel ischemia and lactic acidosis - CT abdomen/pelvis (02/16): Pneumoperitoneum, extraluminal contrast, perisplenic/subdiaphragmatic collection (7.1 1.1 cm). - Small bowel series (02/11): Normal. - Gastrografin (02/21): [place]-enteric fistula, contrast leak from distal transverse colon. Procedures: - First laparotomy (01/13): Resection of perforated small bowel, enteroenterostomy. - Second laparotomy (02/04): Resection near previous perforation, jejunal anastomosis. - Third laparotomy (02/25): Resection of distal ileum, end-to-end anastomosis, ileostomy. - fourth laparotomy(03/20): Cultures: - Peritoneal fluid (01/13): E. coli, Klebsiella pneumoniae (sensitive to meropenem). - Peritoneal fluid (02/17): E. coli, Stenotrophomonas maltophilia. - Aspirate Showed(03/02): VRE - aspirate culture showed(04/02) : VRE - IR-guided pigtail drain placed; drained 50 cc purulent fluid. - CARMEN drains placed in 4 quadrants initially and now patient has only 1 CARMEN drain - Initially NPO, TPN initiated. - NG tube placed. - IV antimicrobials micafungin, daptomycin (03/24) cefepime, Flagyl added (03/26) - Initially patient is on Levofloxacin, Flagyl (02/03); Vancomycin and Meropenem (); Meropenem (); Vancomycin () then eventually switched to above antimicrobials - Started Daptomycin (03/08), Bactrim stopped (03/08), - added micafungin - (03/17) - 2nd opinion to be given by Dr. Rivera -Gastrografin scan(03/05) showed Contrast extravasation is seen in the proximal small bowel, possibly left sided jejunum near the surgical drain can be seen with a leak. -patient kept NPO Genitourinary / Kidney # ISRRAEL likely secondary to shock/volume depletion- resolved - Nephrology consulted for ISRRAEL. Endocrine # Hypothyroidism: TSH 42.29, low T4 # Type 2 diabetes mellitus: HbA1c 8.2%.- # Episodes of hypoglycemia. # Hypothyroidism - continuously monitoring blood glucose and on ISS - Started on Levothyroxine 50 daily Metabolic Hypokalemia. Hyperkalemia. Hyponatremia: D5W at 75 mL/hr per nephrology. Hypophosphatemia: given IV phosphate Nutrition: Severe protein malnutrition. Hematology # Acute on chronic anemia (hemodilution/post-surgical). # Severe thrombocytopenia, HIT # Acute DVT of right upper extremity. - Ultrasound (01/17): Partial thrombus in right internal jugular and cephalic veins. - hemoglobin today 6.9, transfused 1 more unit of PRBC 02/28 - Transfused total 8 units PRBC, 2 platelet units. - continuously monitor H&H - hold blood thinners - 03/25 extremity DVT showed Thrombus is present in the left brachial vein and bilateral cephalic veins. Musculoskeletal / Skin # Rib fracture due to fall. Nutrition: TPN initiated. Bowel Regimen: As needed. GI Prophylaxis: Pantoprazole bid DVT Prophylaxis: Lovenox (held/ Dc'd due to low hemoglobin). Lines / Tubes / Devices Airway: Intubated on 01/14, extubated on 02/07, reintubated on 02/25 extubated 02/28 Vascular Access: PICC line placed in right upper thigh on 01/26. Drips: Dc'd pressors and sedatives. Urinary: Leach catheter placed on 01/14, exchanged on 02/14. Exchanged on 03/17. CARMEN drains in 1 quadrant. Goals of care addressed with patient's family members for more than 29 minutes: Full code status Care plan updated to the patient family Chris (son) on bedside and addressed all concerns Critical care time spent more than 81 minutes excluding procedures and including discussion with the family Case discussed with and RN Plan discussed with: Son My Orders My Orders Orders - ASHLEY TREJO RESIDENT Procedure Category Date Status Time Lactic Acid W/ Reflex LAB 03/27/25 In Process Order 08:41 Dietary Evaluation Review Comments: Nutrition Recommendation: 1) TPN to meet at least 75% estimated needs within 7 days 2) Monitor NPO status, lab values, wt trend, I/O Expected Outcomes/Goals: To meet >75% estimated needs Lab values to improve Fu 2-3 days Is there a minimum of two crit: Yes CC Plasma Assessment Blood Product Administration S: [id number] ASHLEY TREJO RESIDENT Mar 27, 2025 13:06
[2025-03-27 13:25] LABS: Lactic Acid w/Reflex 3.0 mmol/L (0.4-2.0)
[2025-03-27] MEDS: CEFEPIME 2GM/50ML NS 50 ML IV SCH (20:07)
[2025-03-27] MEDS: TPN PER PHARMACY IV NR (20:13)
[2025-03-28] VITALS (50 sets, daily range): BP systolic 85–211; BP diastolic 37–102; PULSE 103–120; RESP 15–32; TEMP 97.7–99.4; O2SAT 91–100
[2025-03-28 03:42] LABS: Hematocrit 26.7 % (36.0-46.0); Hemoglobin 8.9 g/dL (12.2-16.2); Mean Corpuscular Hemoglobin 33.6 pg (28.0-32.0); Mean Corpuscular Volume 100.3 fL (80.0-100.0); Nucleated Red Blood Cells % 0.1 %
[2025-03-28 04:08] LABS: Anion Gap 13 (5-15); BUN/Creatinine Ratio 40.4 (10.0-20.0); Magnesium 2.4 mg/dL (1.6-2.6); Potassium 3.6 mmol/L (3.5-5.1); Sodium 145 mmol/L (136-145)
[2025-03-28 04:09] LABS: Alanine Aminotransferase 48 U/L (7-40); Albumin 1.4 g/dL (3.2-4.8); Alkaline Phosphatase 123 U/L (46-116); Bilirubin, Total 8.4 mg/dL (0.2-1.0); Blood Urea Nitrogen 44 mg/dL (9-23); Calcium 8.6 mg/dL (8.7-10.4); Carbon Dioxide 19 mmol/L (20-31); Chloride 113 mmol/L (98-107); Glucose 115 mg/dL (74-106); Total Protein 4.1 g/dL (5.7-8.2)
--- NOTE | 2025-03-28 10:47 | DVHPN2 ---
Progress Note Date Seen: Mar 28, 2025 Has the PT tested + for MRSA If YES, has PT been informed?: No Medical Necessity Reason Pt with a Central, PICC or Fol: Yes The following are medically ne: PICC Line, Leach Catheter Reason for leach catheter: Strict I&O Objective vital signs Vital Sign Date Time Temp Pulse Resp B/P (MAP) Pulse Ox O2 Delivery O2 Flow Rate FiO2 03/28/25 09:30 115 28 130/70 (90) 94 03/28/25 06:00 Nasal Cannula* 1 24 03/28/25 04:00 99.4 99.4 Total Intake and Output 03/27/25 03/27/25 03/28/25 15:00 23:00 07:00 Intake Total 606 ml 629 ml 652 ml Output Total 710 ml 1300 ml Balance 606 ml -81 ml -648 ml medications Current Medications Medications Dose Ordered Sig/Isaura Route Start Time Stop Time Status Last Admin Dose Admin Cefazolin Sodium 50 ml @ 100 mls/hr Q8HR IV 01/13/25 14:00 UNV Vasopressin 20 units/Sodium Chloride 100 ml @ 9 mls/hr Q11H7M IV 01/13/25 18:45 UNV Potassium Chloride 100 ml @ 50 mls/hr Q2H IV 01/16/25 12:45 01/16/25 18:44 UNV Vancomycin HCl 100 ml @ 100 mls/hr DAILY@1200 IV 01/20/25 12:00 UNV Amino Acids 0 ml @ 0 mls/hr PER PHARMACY IV 02/13/25 10:45 Ondansetron HCl 4 mg Q4HPRN PRN IV 02/21/25 09:30 03/12/25 17:08 4 MG Multi-Ingredient Ointment 1 applic DAILY TOP 02/23/25 10:00 03/27/25 09:49 1 APPLIC Diagnostic Test (Pha) 1 strip Q4HR 02/26/25 16:00 Cancel Diagnostic Test (Pha) 1 strip IQ4HR 02/26/25 16:00 UNV Dextrose 50 ml UD PRN IV 02/26/25 16:00 UNV Pantoprazole Sodium 40 mg BID IV 03/08/25 22:00 03/27/25 20:04 40 MG Levothyroxine Sodium 50 mcg DAILY IV 03/09/25 10:00 03/27/25 09:48 50 MCG Lidocaine 1 patch DAILY TOP 03/12/25 10:00 03/27/25 09:48 1 PATCH Micafungin Sodium 100 mg/Sodium Chloride 100 ml @ 100 mls/hr DAILY IV 03/18/25 10:00 03/27/25 09:48 100 MLS/HR Acetaminophen 650 mg Q6HP PRN NC 03/18/25 10:00 03/26/25 08:08 650 MG Phenylephrine HCl 80 mg/Sodium Chloride 250 ml @ 7.5 mls/hr Q24H IV 03/23/25 22:45 UNV Hydromorphone HCl 0.5 mg Q3HP PRN IV 03/24/25 12:30 03/27/25 20:20 0.5 MG Daptomycin / Sodium Chloride 50 ml @ 100 mls/hr DAILY IV 03/25/25 10:00 UNV Daptomycin 250 mg/ Sodium Chloride 50 ml @ 100 mls/hr DAILY IV 03/25/25 10:00 03/27/25 14:09 100 MLS/HR Diagnostic Test (Pha) 1 strip Q6HR 03/26/25 12:00 03/28/25 05:27 1 STRIP Insulin Human Regular FOLLOW SLIDING SCALE Q6HR SC 03/26/25 12:00 03/28/25 05:28 2 UNITS Dextrose 50 ml UD IV 03/26/25 09:30 Metronidazole 100 ml @ 100 mls/hr Q8HR IV 03/26/25 22:00 03/28/25 05:27 100 MLS/HR Hydralazine HCl 10 mg Q6HP PRN IV 03/27/25 02:00 03/27/25 02:14 10 MG Lactulose 30 ml TID NG 03/27/25 06:00 03/28/25 05:26 30 ML Fat Emulsion Intravenous 50 ml/ Sodium Acetate 80 meq/Sodium Phosphate 20 meq/ Magnesium Sulfate 16 meq/ Multivitamins 10 ml/Amino Acids/ Dextrose/Purified Water 1,659 ml @ 69 mls/hr Q24H3M IV 03/27/25 22:00 03/28/25 21:59 03/27/25 20:13 69 MLS/HR Cefepime HCl 50 ml @ 12.5 mls/hr Q12HR IV 03/27/25 22:00 03/27/25 20:07 12.5 MLS/HR Fat Emulsion Intravenous 50 ml/ Potassium Acetate 60 meq/Magnesium Sulfate 8 meq/ Multivitamins 10 ml/Amino Acids/ Dextrose/Purified Water 1,692 ml @ 70 mls/hr [id number] IV 03/28/25 22:00 03/29/25 21:59 laboratory and microbiology Laboratory Tests 03/28/25 02:52 Test 03/28/25 02:52 Range/Units Serum Glucose 115 H 74-106 mg/dL Problem List/Assessment/Plan Problem List/Assessment/Plan 01/14/25 afebrile, low dose BP support, received transfusion, I believe her decreased hematocrit is due to hemodilution. abdomen non distended, soft, wound clean and well approximated, drainage serous . remains intubated and sedated 01/16/25 ALKALOSIS, ABDOMEN NON DISTENDED, SOFT, DRAINAGE SEROUS, WOUND CLEAN AND WELL APPROXIMATED 01/17/25 improved, thrombocytopenia possibly made worse by Fluconazole,will DC, abdomen non distended, wound well approximated without infection, TATY drainage serous, CVP 6, good urine output. 01/18/25 abg reviewed, ,abdomen soft, non distended, TATY drainage clear serous, no bowel activity, febrile, urine output ok, continues with thrombocytopenia,pt and inr slightly elevated. prognosis grave. 01/20/25remains sedated on ventilator, abdomen soft, non distended, faint bowel sounds auscultated by nurse, wound clean and well approximated, TATY drainage clear serous. continues with thrombocytopenia, still behind on intravascular volume( BUN and Creatinine elevated), i would give more IV fluids and DC vancomycin. 01/25/25 afebrile, normotensive, wound clean and well approximated, TATY drainage serous, abdomen non distended, soft, gastrografin small bowel series shows non obstructed GI tract and no evidence of extravasation. It is OK to initiate enteric feedings. 01/29/25 16 DAYS POST OPERATIVELY TRHE TATY DRAINAGE WHICH HAD CONSISTENTLY BEEN SEROUS OR SERO SANGUINEOUS HAS BECOME "DIRTY" BROWNISH DISCOLORATION, HER WOUND IS CLEAN AND WELL APPROXIMATED AND HER ABDOMEN IS SOFT AND NON DISTENDED, CT SCAN SHOWS SO0ME FLUID AND ACCUMULATION OF FLUID AROUND THE SPLEEN, WILL REQUEST CT GUIDED ASPIRATION OF SAME, WILL ORDER IRRIGATION OF DRAINS. SHE SI AFEBRILE AND MAINTAINS NORMAL BLOOD PRESSURE, HER WBC IS NORMAL. 01/30/25 improved, awake, being weaned off vent. abdomen non distended, non tender, taty drainage clearing with irrigation 02/02/25clinically unchanged, gastrografin small bowel series reported and normal, no extravasation reported, will order a follow ujp KUB for tomorrow AM 02/03/25 PATIENT HAD A GASTROGRAFIN SMALL BOWEL SERIES AND A FOLLOW UP KUB X RAYS NEITHER ONE OF WHICH SHOW EXTRAVASATION OF CONTRAST OR EVIDENCE OF FREE CONTRAST IN THE PERITONEAL CAVITY. THERE IS HOWEVER VISCOUS, BROWNISH FLUID DRAINING VIA BOTH TATY DRAINS AND THROUGH INFRAUMBILICAL PORTION OF MIDLINE WOUND, I REMOVED THE RICHIE FROM THE 3 CM SECTION OF THE INFRAUMBILICAL WOUND AND EVACUATED ABOUT 30 CC OF THIS FLUID AND INSTRUCTED THE NURSE TO PLACE A STOMA APPLIANCE ON THIS OPENING. 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 TODAY HER WBC IS ELEVATED, ABDOMEN CONTINUES TO BE NON DISTENDED, SOFT, BUT SHE DOES HAVE SLIGHT TENDERNESS IN THE PERIUMBILICAL AREA. I WILL TREAT THIS EXPECTANTLY FORM THE TIME BEING IN THE HOPE THAT THIS IS A "CONTROLLED" FISTULA AND HOPEFUL WILL HEAL SPONTANEOUSLY WITH NPO AND NUTRITIONAL SUPPORT. WILL WATCH CLOSELY, AFTER A FEW DAYS WILL GET A FISTULOGRAM TO PIN POINT THE ENTERIC ORIGIN OF THE FISTULIZATION. CONTINUE NGT SUCTION AND DRAIN IRRIGATION ORDERED02/05/25 02/05/25 remains sedated and intubated?ventilated, abdomen non distended soft, wound vac in place. TATY drainage serosanguineous 02/08/25 EXTUBATED, GOOD INSPIRATORY EFFORT, BP NML WITHOUT PRESSOR SUPPORT, ABDOMEN SOFT, NON DISTENDED, APPROPRIATELY TENDER, LABS REVIEWED. NO CHANGES TODAY OTHER THAN ALLOW ICE CHIPS PO. WILL ORDER GASTROGRAFIN SMALL BOWEL FOLLOWTHROUGH FOR Friday02/09/25 awake cooperative, wound vac in place, abdomen soft, non distended, appropriately tender, TATY drainage brownish discoloration, will irrigate, her WBC is normal and she is afebrile and normotensive. gastrografin tomorrow 02/10/25 AWAKE,COMFORTABLE, DENIES PAIN, ABDOMEN NON DISTENDED APPROPRIATELY TENDER, WOUND CLEAN AND WELL APPROXIMATED, DRAINS BEING IRRIGATED, LABS OK, GOOD URINE OUTPUT. "SURGICALLY" STABLE 02/11/25 feels well, passing flatus. is hungry, abdomen soft non distended, drainage clearing with irrigation, will wait for Gastrografin small bowel series to be completed, if normal will start po clear liquids 02/12/25 no nausea, change in TATY drainage colort, appears to contaIN, BILE, WILL DC po CLEAR LIQUIDS, CONTINUE ICE CGHIPS, SEND DRAin fluid for amylase and bilirubin, 02/13/25 states she feels well, abdomen non tender, non distended, wound clean and well approximated. drainage slightly clearer, keep npo for now, needs to resume TPN 02/14/25 PATIENT C/O BEING COLD BUT HAS NO PAIN, DRAINAGE SEEMS TO BE CLEARING, SHE HAD A BOWEL MOVEMENTS, ABDOMEN IS SOFT AND NON TENDER, NON DISTENDED, WOUND IS CLEAN AND WELL APPROXIMATED, WILL CONTINUE NPO STATUS AMYLASE ON TATY DRAINAGE FLUID IS GOING TO TAKE SEVERAL DAYS TO BECOME AVAILABLE. CONTINUE TPN 02/16/25 DENIES PAIN,STATES SHE FEELS BETTER, WOUND VAC IN PLACE, ABDOMEN NON TENDER,NON DISTENDED, TATY DRAINAGE SMALL TO MODERATE , WILL CONTINUE IRRIGATING DRAINS, WILL REQUEST GI CONSULT TO CONSIDER ENDOSCOPY. WBC NL,H/H STABLE , ALBUMIN STILL VERY LOW. , 02/17/25 CT SCAN REVIEWED, I SUSPECT THERE IS A SMALL LEAK FROM THE APPEARANCE OF IMAGING ALTHOUGH RADIOLOGIST RECOMMENDED REPEAT CT SCAN (ORDERED). THE DRAINAGE IS SMALL AMOUNT BUT NOW IT IS WITH AN ODOR, I WILL RE INSERT NGT TO ATTEMPT DECREASING THE GASTRIC CONTENTS. ABDOMEN IS SOFT, APPROPRIATELY TENDER, WOUND VAC IN PLACE 02/18/25 AFEBRILE, NORMOTENSIVE4, WBC NL, ALL IMAGING NEGATIVE, ANGIOGRAM SHOWS NO EVIDENCE OF HYPOPERFUSION, CONTRAST AND NON CONTRAST CT SCAN FAILED TO SHOW ANY EVIDENCE OF EXTRAVASATION, THE DRAINAGE CONTINUES TO BE BROWNISH DISCOLORED AND FOULS SMELLING, EXPLAINED TO PT'S SON THAT I HAVE NO EVIDENCE OF ANY GI LEAKAGE, WILL GET A GASTROGRAFIN ENEMA ON FRIDAY, I AM TRYING TO REFRAIN FROM OPERATING ON THE FRAIL ELDERLY PATIENT FOR THE THIRD TIME, SHE WILL NOT TOLERATE ANOTHYER OPERATION WELL. HER ALBUMIN REMAINS VERY LOW.WOUND VAC OK 02/19/25 feels ok,c/o being cold, abdomen soft. non distended, minimally tender, drainage seems to be little less, labs ok, continue as is 02/22/25 she feels well, abdomen is non tender, soft and non distended, drainage slightly less in volume, still discolored,gastrografin enema reviewed by me ( no radiologist/s interpretation available), she has not evacuated the gastrografin according to nurse. 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 will proceed with operation on 02/25/25 at 0715 AM. 02/27/25 SLIGHT IMPROVEMENT, ABDOMEN SOFT, NON DISTENDED, STOMA VIABLE WITHOUT FUNCTION, OK TO TRY GETTING OFF VENTILATOR. 03/01/25 extubated, conversant,oriented, abdomen non distended, appropriately tender, wound clean ans well approximated, drainage serous, stoma viable and with minimal liquid,no gas. will sips of water and ice po 03/02/25 awake comfortable, denies pain, abdomen appropriately tender, wound vac in place, afebrile, normotensive, drainage serosanguineous, cbc stable, stoma viable and with minimal output will resume irrigation of drain 03/03/25 awake ,cooperative, good inspiratory effort, afebrile, normotensive, wound covered with wound vac, drainage serous but cloudy(cultures ordered) abdomen non tender, stoma viable with minimal output. will order gastrografin ugi with small bowel follow throught for tomorow 03/04/25 vital signs stable, good urine output, wound vac ok, abdomen non tender. Xray pending 03/05/25 UGI X RAY SHOWS A NEW AREA OF LEAK,BEING ADEQUATELY DRAINED BY THE TATY DRAIN WHICH IS ADJACENT TO IT, HER ABDOMEN IS NON TENDER. WILL RESUME STRICT NPO STATUS, KEEP NGT TO CONTINUOUS SUCTION, I HAVE CALLED HER SON ILIANA AND EXPLAINED THAT PROBABLY THE INTESTINAL WALL IS NOT HEALING WHENEVER WE PLACE SUTURE AT SITES OF ANASTOMOSES. HER ABDOMEN IS NON TENDER, I WILL TREAT THIS CONSERVATIVELY FOR SOME TIME TO SEE IF THE LEAK MAY SHOW SOME EVIDENCE OF HEALING. YESTERDAY THERE WAS 500 CC OF TATY DRAINAGE. HER ALBUMIN LEVEL IS SLOWLY IMPROVING BUT STILL REMAINS LOW. IT APPEARS THAT THE SUTURES IN HER INTESTINAL ANASTOMOSES HOLD FOR ABOUT A WEEK AND THEN BREAK DOWN. (DRAINAGE TURNED FROM SEROSANGUINEOUS TO GREENISH YESTERDAY. 03/06/25 drainage slightly less in volume, still enteric contents abdomen softn and non tender, non distended. wound vac changed, wound healing, no chjanges for now. discussed with family. 03/08/29 feels better, no pain, abdomen soft and non tender, drainage minimally less, family at bedside, answered questions 03/09/25 son at bedside, patient feels "well" wants to eat, explained that we need to keep her intestine at rest' afebrile, normotensive, drainage less, abdomen non tender, wound vac in p-lace wbc normal today. h/h stable/ continue npo aqnd ngt there is stool in stoma appliance 03/13/25 SLOW IMPROBVEMENT,ABDOMEN NON TENDER, NON DISTENDED, SOME STOOL IN STOMA, DRAINAGE SLIGHTLY LESS VOLUME, CONTINUE IS, NEEDS MOR IV FLUYID (ORDERS GIVEN) 03/15/25 stable, having the NG tube clamped did not cause distress nor did it result in increase of the TATY drainage ,I have therefore removed the NG tube, she does need to remain NPO however, if there are no major changes in her condition in the next 48 hours she would be stable to transfer to a SNF on TPN, I will gladly make "house calls " on here at the facility . abdomen remains non distended, non tender, wound awaiting a wound vac but it is without evidence of infection, I have digitally probed the styoma which has inverted on itself, it is patent ancd without stenosis below the skin level. 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 drainage unchanged 03/22/25 doing well ,drainag clear, stoma viable and functioning, abdomen soft and appropriately tender, wound vac, labs reviewed. 03/25/25 until yeswterday she had minimal serous drainage in the TATY drain, this morning however tghe drainage is more voluminous and apperas to contain bile, her abdomen is non distended and appropriately tender, however i believe that the bowel has developed another "leak", I CALLED PATIENT SON AND EXPLAINED THE SITUATION TO HIM 03/26/25 transient hypotension responded to iv fluid bolus, drainage today is serosanguineous and there is some output of enteric contents through the ileostomy. have asked nurse to deflate the balloon on the leach catheter inside the ileostomy. abdomen non distended less tender than yesterday. she is feeling better than she did yesterday. I had a regine discussion with patient's son and told him that his mom will most likely not recover from this condition and if it was my mother I would give some consideration to taking her home on hospice. and I explained how hospice functions. He will discuss with family. 03/27/25 diastolic hypertension, abdomen soft, nopn disten ded, patient asleep, wound unchanged, DRAINAGE CLOUDY, VOLUME UNCHANGED, ILEOSTOMY OUTPUT IMPROVED, AWAITING FAMILY'S DECISION RE HOSPICE DISCHARGE 03/28/25 clinically unchanged, wound dressing dry, taty drainage brownish, moderate, ileostomy functioning, nurse informed me that family would like a second opinion,I have called to see patient and talk with family. so far no decision on hospice l Plan discussed with: Patient, Other Dietary Evaluation Review Comments: Nutrition Recommendation: 1) TPN to meet at least 75% estimated needs within 7 days 2) Monitor NPO status, lab values, wt trend, I/O Expected Outcomes/Goals: To meet >75% estimated needs Lab values to improve Fu 2-3 days Is there a minimum of two crit: Yes MELVA RAMESH MD Mar 28, 2025 10:47
--- NOTE | 2025-03-28 19:22 | DVHPNRES ---
Progress Note Date Seen: Mar 28, 2025 Resident Creating Document: CARMEL SNYDER RESIDENT Has the PT tested + for MRSA If YES, has PT been informed?: No Medical Necessity Reason Pt with a Central, PICC or Fol: Yes The following are medically ne: PICC Line, Leach Catheter Reason for leach catheter: Strict I&O Subjective Review of Systems Ms. Hays is a 80 year old female with PMHx of hypertension, AFib on eliquis, type 2 diabetes mellitus, and chronic kidney disease, who presented to [facility] with chief complaint of constipation and abdominal pain. The patient referred intermittent minimal pain the previous 4 months, which progressively worsened described as described the abdominal pain is sharp constant pain, diffuse in nature, 9/10, radiates to the back and associated with constipation. Initial abdominal CT without IV contrast demonstrated free intraperitoneal likely from visceral perforation of the left abdominal small bowel loops, circumferential wall thickening of left abdominal small bowel loop with more focal local pool of gas adjacent to this thickened small bowel loop. The patient was found to have peritonitis secondary to perforated diverticulitis, for which she underwent an exploratory laparotomy on 01/13/2025 with resection of perforated bowel and formation of enteroenterostomy. Patient was to found to be in septic shock requiring intubation and vasopressor support. Due to abnormal CARMEN drain output, the patient has required multiple follow up exploratory laparotomies on 02/04/2025, 02/25/2025, 03/20/2025, and 03/24/2025, with subsequent resections of affect bowel. Previous medical history: Hypertension, AFib on eliquis (per record the patient was not taking this medication), Type 2 Diabetes mellitus, CKD Previous surgical history: C - section, hernia repair Social: Patient lives with family. Denies previous drug, tobacco, or alcohol use 03/28/2025: Patient was seen in ICU today. Currently without supplemental oxygen, not on pressors at this time. She is slightly confused, however is able to answer questions. Patient is jaundiced, CARMEN and ostomy output continue to be high. During evaluation patient presents increased work of breathing for which a chest xray has been ordered. Hb progressively downtrending, PLTs currently 40. Total bilirubin is 8.4, improved from previous 11. Blood cultures from 03/26/2025 growing gram negative rods, for which cefepime and flagyl were started. Family would like second opinion regarding prognosis of patient. Dr. Henry Rivera has been consulted and states he will have a family meeting tomorrow at 3 pm to discuss the case with the patient's relatives. Objective vital signs Vital Sign Date Time Temp Pulse Resp B/P (MAP) Pulse Ox O2 Delivery O2 Flow Rate FiO2 03/28/25 17:07 110 31 132/67 03/28/25 17:00 97 03/28/25 16:00 Room Air* 0 21 03/28/25 16:00 98.6 98.6 Total Intake and Output 03/27/25 03/27/25 03/28/25 15:00 23:00 07:00 Intake Total 606 ml 629 ml 721 ml Output Total 710 ml 1300 ml Balance 606 ml -81 ml -579 ml medications Current Medications Medications Dose Ordered Sig/Isaura Route Start Time Stop Time Status Last Admin Dose Admin Cefazolin Sodium 50 ml @ 100 mls/hr Q8HR IV 01/13/25 14:00 UNV Vasopressin 20 units/Sodium Chloride 100 ml @ 9 mls/hr Q11H7M IV 01/13/25 18:45 UNV Potassium Chloride 100 ml @ 50 mls/hr Q2H IV 01/16/25 12:45 01/16/25 18:44 UNV Vancomycin HCl 100 ml @ 100 mls/hr DAILY@1200 IV 01/20/25 12:00 UNV Amino Acids 0 ml @ 0 mls/hr PER PHARMACY IV 02/13/25 10:45 Ondansetron HCl 4 mg Q4HPRN PRN IV 02/21/25 09:30 03/12/25 17:08 4 MG Multi-Ingredient Ointment 1 applic DAILY TOP 02/23/25 10:00 03/28/25 10:29 1 APPLIC Diagnostic Test (Pha) 1 strip Q4HR 02/26/25 16:00 Cancel Diagnostic Test (Pha) 1 strip IQ4HR 02/26/25 16:00 UNV Dextrose 50 ml UD PRN IV 02/26/25 16:00 UNV Pantoprazole Sodium 40 mg BID IV 03/08/25 22:00 03/28/25 10:08 40 MG Levothyroxine Sodium 50 mcg DAILY IV 03/09/25 10:00 03/28/25 10:17 50 MCG Lidocaine 1 patch DAILY TOP 03/12/25 10:00 03/28/25 10:18 1 PATCH Micafungin Sodium 100 mg/Sodium Chloride 100 ml @ 100 mls/hr DAILY IV 03/18/25 10:00 03/28/25 10:08 100 MLS/HR Acetaminophen 650 mg Q6HP PRN NE 03/18/25 10:00 03/26/25 08:08 650 MG Phenylephrine HCl 80 mg/Sodium Chloride 250 ml @ 7.5 mls/hr Q24H IV 03/23/25 22:45 UNV Hydromorphone HCl 0.5 mg Q3HP PRN IV 03/24/25 12:30 03/28/25 16:37 0.5 MG Daptomycin / Sodium Chloride 50 ml @ 100 mls/hr DAILY IV 03/25/25 10:00 UNV Daptomycin 250 mg/ Sodium Chloride 50 ml @ 100 mls/hr DAILY IV 03/25/25 10:00 03/28/25 10:07 100 MLS/HR Diagnostic Test (Pha) 1 strip Q6HR 03/26/25 12:00 03/28/25 18:01 1 STRIP Insulin Human Regular FOLLOW SLIDING SCALE Q6HR SC 03/26/25 12:00 03/28/25 18:00 4 UNITS Dextrose 50 ml UD IV 03/26/25 09:30 Metronidazole 100 ml @ 100 mls/hr Q8HR IV 03/26/25 22:00 03/28/25 14:28 100 MLS/HR Hydralazine HCl 10 mg Q6HP PRN IV 03/27/25 02:00 03/27/25 02:14 10 MG Lactulose 30 ml TID NG 03/27/25 06:00 03/28/25 14:28 30 ML Fat Emulsion Intravenous 50 ml/ Sodium Acetate 80 meq/Sodium Phosphate 20 meq/ Magnesium Sulfate 16 meq/ Multivitamins 10 ml/Amino Acids/ Dextrose/Purified Water 1,659 ml @ 69 mls/hr Q24H3M IV 03/27/25 22:00 03/28/25 21:59 03/27/25 20:13 69 MLS/HR Cefepime HCl 50 ml @ 12.5 mls/hr Q12HR IV 03/27/25 22:00 03/28/25 11:00 12.5 MLS/HR Fat Emulsion Intravenous 50 ml/ Potassium Acetate 60 meq/Magnesium Sulfate 8 meq/ Multivitamins 10 ml/Amino Acids/ Dextrose/Purified Water 1,692 ml @ 70 mls/hr [id number] IV 03/28/25 22:00 03/29/25 21:59 Examination General: AOx2, jaundiced HEENT: Normocephalic, atraumatic, normal reactive pupils, EOM intact, icteric sclera, dry mucus membranes Respiratory/pulmonary: Bilateral chest expansion, no pain on palpation of chest wall, clear lungs bilaterally, vesicular murmurs present in almost all lung sutton, no crackles Cardiovascular: Normal RRR, normal S1 and S2, no murmurs Abdomen: Abdomen nondistended, presence of ostomy bags in mid right to lower quadrant, CARMEN drain located on left abdomen, active bowel sounds, soft, pain to palpation in areas surrounding ostomy, no palpable masses. : Presence of Leach Extremities: No deformities, there is no peripheral edema present at the lower extremities, normal pulses Skin: Jaundiced, as mentioned above Neurological: Intact cranial nerves with no focal neurologic deficits laboratory and microbiology Laboratory Tests 03/28/25 02:52 Test 03/28/25 02:52 Range/Units Serum Glucose 115 H 74-106 mg/dL Microbiology Date/Time Source Procedure Growth Status 03/26/25 00:08 Blood Blood Culture - Preliminary Resulted 03/20/25 08:12 Peritoneal Fluid Gram Stain - Final Complete 03/20/25 08:12 Peritoneal Fluid Anaerobic Culture - Final Complete 03/20/25 08:12 Aerobic Culture - Final Enterococcus faecium - VRE Complete 03/16/25 15:48 Urine - Leach [place] Urine Culture - Final Yeast, not Zoe albicans Complete 02/25/25 11:48 Sputum Gram Stain - Final Complete 02/25/25 11:48 Sputum Respiratory Culture - Final Complete 01/13/25 17:10 Nose MRSA Screen - Final Complete Problem List/Assessment/Plan Problem List/Assessment/Plan Neurology #Chronic Ischemic Changes and Cortical Atrophy - Head CT: 01/28/2025: Chronic sequelae of microangiopathy and atrophic cortical focal volume loss. Cardiovascular #Septic Shock secondary to peritonitis due to hollow viscus perforation #Chronic diastolic heart failure without exacerbation - Echocardiogram: 01/15/2025: Normal LVEF 65%, mild LVH, mild LV diastolic dysfunction #Paroxysmal Afib - Currently not on therapeutic Lovenox due to low hemoglobin - CHADsVasc 5 # Hypertension - Monitor - Hydralazine 10 mg IV PRN Respiratory # Acute hypoxic respiratory failure secondary to bilateral pleural effusion/ pneumonia # Ventilator -Intubated () -Extubated (02/07/2025) -Reintubation (02/25/2025) -Extubation ( 02/28/2025) -Due to observed increased work of breathing, chest xray was ordered which shows no significant change from the previous study. Stable support devices. Persistent heart failure pattern. -Sputum culture 01/29: Presumptive Zoe albicans, Sputum culture from 02/25: negative GI # Acute bacterial peritonitis due to small bowel perforation secondary to perforated diverticulitis -CT abdomen: 01/12/2025: Free intraperitoneal air likely from visceral perforation of a left abdominal small bowel loop. Circumferential wall thickening of a left abdominal small bowel loop with more focal locules of gas adjacent to this thickened small bowel loop . There may be sinus tracts or a fistulous network between adjacent small bowel loops in the left abdomen with image numbers above. Mild ascites and diffuse soft tissue stranding of the mesentery # Transaminitis secondary to shock # Anion gap metabolic acidosis due to bowel ischemia and lactic acidosis # Elevated bilirubin secondary to TPN - Exploratory laparotomy 01/13/2025: Resection of perforated bowel enteroenterostomy - Exploratory laparotomy 02/04/2025: Resection near previous resection - Exploratory laparotomy 02/25/2025: Resection of distal ileum - Exploratory laparotomy 03/20/2025: Very extensive lysis of adhesions, repair of 3 ischemic perforations of small bowel, evacuation of multiple interloop abscesses, revision of ileostomy. - Exploratory laparotomy 03/24/2025: - IR-guided pigtail drain placed; drained 50 cc purulent fluid. - CARMEN drains placed in 4 quadrants initially and now patient has only 1 CARMEN drain - Peritoneal fluid (01/13): E. coli, Klebsiella pneumoniae (sensitive to meropenem). - Peritoneal fluid (02/17): E. coli, Stenotrophomonas maltophilia. - Aspirate culture: (03/02): VRE - Aspirate culture :(04/02) : VRE - Blood cultures (03/26): Gram negative rods - New blood cultures have been ordered - Micafungin (03/17), Daptomycin (03/24) cefepime, Flagyl added (03/26) - Levofloxacin, Flagyl (02/03); Vancomycin and Meropenem (); Meropenem (); Vancomycin (), Bactrim stopped (03/08) - Dr. Rivera to meet with family today for second opinion - Patient is NPO, currently with NG tube # Peptic ulcer prophylaxis -Pantoprazole 40 mg IV daily # Leach catheter Nephrology -#ISRRAEL likely hemodynamically mediated/VMN - Resolved - Monitor renal function - Avoid nephrotoxix drugs #Hypokalemia - Monitor - Replete as needed #Hyperkalemia - Monitor #Hyponatremia, resolved #Hypophosphatemia - Replete as needed Infectious disease # Septic shock secondary to acute bacterial peritonitis due to small bowel perforation secondary to perforated diverticulitis - Exploratory laparotomy 01/13/2025: Resection of perforated bowel enteroenterostomy - Exploratory laparotomy 02/04/2025: Resection near previous resection - Exploratory laparotomy 02/25/2025: Resection of distal ileum - Exploratory laparotomy 03/20/2025:Very extensive lysis of adhesions, repair of 3 ischemic perforations of small bowel, evacuation of multiple interloop abscesses, revision of ileostomy. - Exploratory laparotomy 03/24/2025: - IR-guided pigtail drain placed; drained 50 cc purulent fluid. - CARMEN drains placed in 4 quadrants initially and now patient has only 1 CARMEN drain - Peritoneal fluid (01/13): E. coli, Klebsiella pneumoniae (sensitive to meropenem). - Peritoneal fluid (02/17): E. coli, Stenotrophomonas maltophilia. - Aspirate culture: (03/02): VRE - Aspirate culture :(04/02) : VRE - Blood cultures (03/26): Gram negative rods - New blood cultures have been ordered - Micafungin (03/17), Daptomycin (03/24) cefepime, Flagyl added (03/26) - Levofloxacin, Flagyl (02/03); Vancomycin and Meropenem (); Meropenem (); Vancomycin (), Bactrim stopped (03/08) Hem/onc #Acute on chronic anemia - Last PRBC transfusion on 02/28/2025 #Severe thrombocytopenia HIT #Acute DVT of right upper extremity - Venous duplex US of right upper extremity: partial thrombus in right internal jugular ad cephalic vein - Left upper extremity Venous Duplex US: thrombus in left brachial vein and bilateral cephalic veins - Hold anticoagulation at this time Endocrine # Hypothyroidism - TSH previously 42 --> 0.90 - Levothyroxine 50 mcg # Type 2 Diabetes Mellitus, HbA1c: 8.1 - Sliding scale insulin Nutrition # Severe protein malnutrition # TPN Lines Airway: Intubated on 01/14, extubated on 02/07, reintubated on 02/25 extubated 02/28 Vascular Access: PICC line placed in right upper thigh on 01/26. Drips: Dc'd pressors and sedatives. Urinary: Leach catheter placed on 01/14, exchanged on 02/14. Exchanged on 03/17. CARMEN drains in 1 quadrant. Ostomy bag in lower right abdominal quadrant PUD prophylaxis: Protonix DVT prophylaxis: Held at this time due to anemia Physical therapy ordered Critical care time 86 minutes excluding procedure. Code status discussed greater than 20 minutes: Full CODE STATUS. Family at bedside explained about the condition of the patient Plan discussed with Dr. Self Plan discussed with: Daughter, Son, Other (Nurse) My Orders My Orders Orders - CARMEL SNYDER Procedure Category Date Status Time Thyroid Stimulating LAB 03/29/25 Verified Hormone 04:00 Chest Xray 1 View XY 03/28/25 Logged 18:51 Blood Culture MARIA ISABEL 03/29/25 Logged 04:00 Complete Blood Count LAB 03/29/25 Verified 04:00 Comprehensive LAB 03/29/25 Verified Metabolic Panel 04:00 PTPTT LAB 03/29/25 Verified 04:00 Dietary Evaluation Review Comments: Nutrition Recommendation: 1) TPN to meet at least 75% estimated needs within 7 days 2) Monitor NPO status, lab values, wt trend, I/O Expected Outcomes/Goals: To meet >75% estimated needs Lab values to improve Fu 2-3 days Is there a minimum of two crit: Yes CC Plasma Assessment Blood Product Administration S: [id number] Date of Service: Mar 28, 2025 Billing Provider: ZBIGNIEW SELF MD Common Visit Codes: 25906-[id number] CARE 30-74 MIN, [id number] CARE-EACH +30MIN CARMEL SNYDER 17, 2025 19:22 ZBIGNIEW SELF MD Mar 29, 2025 15:36
--- NOTE | 2025-03-28 20:12 | DVH ---
CHEST RADIOGRAPH Indication: Shortness of breath Technique: 1 view Comparison: XY CHEST PORTABLE on DOS: 03/27/25, XY CHEST PORTABLE on DOS: 03/26/25, XY CHEST XRAY 1 VIEW on DOS: 03/24/25, XY CHEST XRAY 1 VIEW on DOS: 03/23/25, XY CHEST PORTABLE on DOS: 03/21/25 FINDINGS: Lines and Tubes: Unchanged enteric tube and right upper extremity PICC. Lungs/Pleura: Similar bilateral perihilar interstitial opacities, basilar graded opacities, and small pleural effusions. No pneumothorax. Cardiomediastinum: Unchanged. Other: Unchanged osseous structures. IMPRESSION: No significant change from the previous study. Stable support devices. Persistent heart failure pattern.
[2025-03-28] MEDS: TPN PER PHARMACY IV NR (21:26)
[2025-03-29] VITALS (53 sets, daily range): BP systolic 85–186; BP diastolic 10–94; PULSE 92–110; RESP 8–32; TEMP 97.6–98.8; O2SAT 94–100
[2025-03-29 04:01] LABS: Nucleated Red Blood Cells % 0.1 %
[2025-03-29 04:03] LABS: Hematocrit 25.2 % (36.0-46.0); Hemoglobin 8.6 g/dL (12.2-16.2); Mean Corpuscular Hemoglobin 35.0 pg (28.0-32.0); Mean Corpuscular Volume 102.8 fL (80.0-100.0)
[2025-03-29 04:14] LABS: Alkaline Phosphatase 105 U/L (46-116); Calcium 8.7 mg/dL (8.7-10.4); INR 1.83 (0.9-1.15); Partial Thromboplastin Time 44.7 SEC (24.5-34.5); Prothrombin Time 18.3 sec (9.3-11.8)
[2025-03-29 04:15] LABS: Anion Gap 13 (5-15); BUN/Creatinine Ratio 44.0 (10.0-20.0); Magnesium 2.3 mg/dL (1.6-2.6)
[2025-03-29 04:18] LABS: Alanine Aminotransferase 43 U/L (7-40); Albumin 1.3 g/dL (3.2-4.8); Bilirubin, Total 6.8 mg/dL (0.2-1.0); Blood Urea Nitrogen 51 mg/dL (9-23); Carbon Dioxide 20 mmol/L (20-31); Chloride 112 mmol/L (98-107); Glucose 157 mg/dL (74-106); Potassium 3.1 mmol/L (3.5-5.1); Sodium 145 mmol/L (136-145); Total Protein 3.9 g/dL (5.7-8.2)
[2025-03-29] MEDS: POTASSIUM CHL 20MEQ/100ML 100 ML IV SCH (05:42)
--- NOTE | 2025-03-29 11:39 | DVHPN2 ---
Progress Note Date Seen: Mar 29, 2025 Has the PT tested + for MRSA If YES, has PT been informed?: No Medical Necessity Reason Pt with a Central, PICC or Fol: Yes The following are medically ne: PICC Line, Leach Catheter Reason for leach catheter: Strict I&O Objective vital signs Vital Sign Date Time Temp Pulse Resp B/P (MAP) Pulse Ox O2 Delivery O2 Flow Rate FiO2 03/29/25 10:41 108 29 108/42 03/29/25 06:00 97 Room Air* 0 21 03/29/25 00:01 98.5 98.5 Total Intake and Output 03/28/25 03/28/25 03/29/25 15:00 23:00 07:00 Intake Total 852 ml 684 ml 530 ml Output Total 915 ml 775 ml Balance 852 ml -231 ml -245 ml medications Current Medications Medications Dose Ordered Sig/Isaura Route Start Time Stop Time Status Last Admin Dose Admin Cefazolin Sodium 50 ml @ 100 mls/hr Q8HR IV 01/13/25 14:00 UNV Vasopressin 20 units/Sodium Chloride 100 ml @ 9 mls/hr Q11H7M IV 01/13/25 18:45 UNV Potassium Chloride 100 ml @ 50 mls/hr Q2H IV 01/16/25 12:45 01/16/25 18:44 UNV Vancomycin HCl 100 ml @ 100 mls/hr DAILY@1200 IV 01/20/25 12:00 UNV Amino Acids 0 ml @ 0 mls/hr PER PHARMACY IV 02/13/25 10:45 Ondansetron HCl 4 mg Q4HPRN PRN IV 02/21/25 09:30 03/12/25 17:08 4 MG Multi-Ingredient Ointment 1 applic DAILY TOP 02/23/25 10:00 03/29/25 11:09 1 APPLIC Diagnostic Test (Pha) 1 strip Q4HR 02/26/25 16:00 Cancel Diagnostic Test (Pha) 1 strip IQ4HR 02/26/25 16:00 UNV Dextrose 50 ml UD PRN IV 02/26/25 16:00 UNV Pantoprazole Sodium 40 mg BID IV 03/08/25 22:00 03/29/25 10:41 40 MG Levothyroxine Sodium 50 mcg DAILY IV 03/09/25 10:00 03/29/25 10:41 50 MCG Lidocaine 1 patch DAILY TOP 03/12/25 10:00 03/28/25 10:18 1 PATCH Micafungin Sodium 100 mg/Sodium Chloride 100 ml @ 100 mls/hr DAILY IV 03/18/25 10:00 03/28/25 10:08 100 MLS/HR Acetaminophen 650 mg Q6HP PRN WI 03/18/25 10:00 03/26/25 08:08 650 MG Phenylephrine HCl 80 mg/Sodium Chloride 250 ml @ 7.5 mls/hr Q24H IV 03/23/25 22:45 UNV Hydromorphone HCl 0.5 mg Q3HP PRN IV 03/24/25 12:30 03/29/25 10:41 0.5 MG Daptomycin / Sodium Chloride 50 ml @ 100 mls/hr DAILY IV 03/25/25 10:00 UNV Daptomycin 250 mg/ Sodium Chloride 50 ml @ 100 mls/hr DAILY IV 03/25/25 10:00 03/29/25 10:39 100 MLS/HR Diagnostic Test (Pha) 1 strip Q6HR 03/26/25 12:00 03/29/25 06:00 1 STRIP Insulin Human Regular FOLLOW SLIDING SCALE Q6HR SC 03/26/25 12:00 03/29/25 00:24 2 UNITS Dextrose 50 ml UD IV 03/26/25 09:30 Metronidazole 100 ml @ 100 mls/hr Q8HR IV 03/26/25 22:00 03/29/25 05:42 100 MLS/HR Hydralazine HCl 10 mg Q6HP PRN IV 03/27/25 02:00 03/27/25 02:14 10 MG Lactulose 30 ml TID NG 03/27/25 06:00 03/29/25 05:42 30 ML Cefepime HCl 50 ml @ 12.5 mls/hr Q12HR IV 03/27/25 22:00 03/28/25 21:23 12.5 MLS/HR Fat Emulsion Intravenous 50 ml/ Potassium Acetate 60 meq/Magnesium Sulfate 8 meq/ Multivitamins 10 ml/Amino Acids/ Dextrose/Purified Water 1,692 ml @ 70 mls/hr [id number] IV 03/28/25 22:00 03/29/25 21:59 03/28/25 21:26 70 MLS/HR Fat Emulsion Intravenous 50 ml/ Potassium Acetate 30 meq/Potassium Phosphate 33 meq/ Magnesium Sulfate 8 meq/ Multivitamins 10 ml/Amino Acids/ Dextrose/Purified Water 1,584.5 ml @ 66 mls/hr Q24H1M IV 03/29/25 22:00 03/30/25 21:59 laboratory and microbiology Laboratory Tests 03/29/25 03:08 Test 03/29/25 03:08 Range/Units Serum Glucose 157 H 74-106 mg/dL Problem List/Assessment/Plan Problem List/Assessment/Plan 01/14/25 afebrile, low dose BP support, received transfusion, I believe her decreased hematocrit is due to hemodilution. abdomen non distended, soft, wound clean and well approximated, drainage serous . remains intubated and sedated 01/16/25 ALKALOSIS, ABDOMEN NON DISTENDED, SOFT, DRAINAGE SEROUS, WOUND CLEAN AND WELL APPROXIMATED 01/17/25 improved, thrombocytopenia possibly made worse by Fluconazole,will DC, abdomen non distended, wound well approximated without infection, TATY drainage serous, CVP 6, good urine output. 01/18/25 abg reviewed, ,abdomen soft, non distended, TATY drainage clear serous, no bowel activity, febrile, urine output ok, continues with thrombocytopenia,pt and inr slightly elevated. prognosis grave. 01/20/25remains sedated on ventilator, abdomen soft, non distended, faint bowel sounds auscultated by nurse, wound clean and well approximated, TATY drainage clear serous. continues with thrombocytopenia, still behind on intravascular volume( BUN and Creatinine elevated), i would give more IV fluids and DC vancomycin. 01/25/25 afebrile, normotensive, wound clean and well approximated, TATY drainage serous, abdomen non distended, soft, gastrografin small bowel series shows non obstructed GI tract and no evidence of extravasation. It is OK to initiate enteric feedings. 01/29/25 16 DAYS POST OPERATIVELY TRHE TATY DRAINAGE WHICH HAD CONSISTENTLY BEEN SEROUS OR SERO SANGUINEOUS HAS BECOME "DIRTY" BROWNISH DISCOLORATION, HER WOUND IS CLEAN AND WELL APPROXIMATED AND HER ABDOMEN IS SOFT AND NON DISTENDED, CT SCAN SHOWS SO0ME FLUID AND ACCUMULATION OF FLUID AROUND THE SPLEEN, WILL REQUEST CT GUIDED ASPIRATION OF SAME, WILL ORDER IRRIGATION OF DRAINS. SHE SI AFEBRILE AND MAINTAINS NORMAL BLOOD PRESSURE, HER WBC IS NORMAL. 01/30/25 improved, awake, being weaned off vent. abdomen non distended, non tender, taty drainage clearing with irrigation 02/02/25clinically unchanged, gastrografin small bowel series reported and normal, no extravasation reported, will order a follow ujp KUB for tomorrow AM 02/03/25 PATIENT HAD A GASTROGRAFIN SMALL BOWEL SERIES AND A FOLLOW UP KUB X RAYS NEITHER ONE OF WHICH SHOW EXTRAVASATION OF CONTRAST OR EVIDENCE OF FREE CONTRAST IN THE PERITONEAL CAVITY. THERE IS HOWEVER VISCOUS, BROWNISH FLUID DRAINING VIA BOTH TATY DRAINS AND THROUGH INFRAUMBILICAL PORTION OF MIDLINE WOUND, I REMOVED THE RICHIE FROM THE 3 CM SECTION OF THE INFRAUMBILICAL WOUND AND EVACUATED ABOUT 30 CC OF THIS FLUID AND INSTRUCTED THE NURSE TO PLACE A STOMA APPLIANCE ON THIS OPENING. 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 TODAY HER WBC IS ELEVATED, ABDOMEN CONTINUES TO BE NON DISTENDED, SOFT, BUT SHE DOES HAVE SLIGHT TENDERNESS IN THE PERIUMBILICAL AREA. I WILL TREAT THIS EXPECTANTLY FORM THE TIME BEING IN THE HOPE THAT THIS IS A "CONTROLLED" FISTULA AND HOPEFUL WILL HEAL SPONTANEOUSLY WITH NPO AND NUTRITIONAL SUPPORT. WILL WATCH CLOSELY, AFTER A FEW DAYS WILL GET A FISTULOGRAM TO PIN POINT THE ENTERIC ORIGIN OF THE FISTULIZATION. CONTINUE NGT SUCTION AND DRAIN IRRIGATION ORDERED02/05/25 02/05/25 remains sedated and intubated?ventilated, abdomen non distended soft, wound vac in place. TATY drainage serosanguineous 02/08/25 EXTUBATED, GOOD INSPIRATORY EFFORT, BP NML WITHOUT PRESSOR SUPPORT, ABDOMEN SOFT, NON DISTENDED, APPROPRIATELY TENDER, LABS REVIEWED. NO CHANGES TODAY OTHER THAN ALLOW ICE CHIPS PO. WILL ORDER GASTROGRAFIN SMALL BOWEL FOLLOWTHROUGH FOR Friday02/09/25 awake cooperative, wound vac in place, abdomen soft, non distended, appropriately tender, TATY drainage brownish discoloration, will irrigate, her WBC is normal and she is afebrile and normotensive. gastrografin tomorrow 02/10/25 AWAKE,COMFORTABLE, DENIES PAIN, ABDOMEN NON DISTENDED APPROPRIATELY TENDER, WOUND CLEAN AND WELL APPROXIMATED, DRAINS BEING IRRIGATED, LABS OK, GOOD URINE OUTPUT. "SURGICALLY" STABLE 02/11/25 feels well, passing flatus. is hungry, abdomen soft non distended, drainage clearing with irrigation, will wait for Gastrografin small bowel series to be completed, if normal will start po clear liquids 02/12/25 no nausea, change in TATY drainage colort, appears to contaIN, BILE, WILL DC po CLEAR LIQUIDS, CONTINUE ICE CGHIPS, SEND DRAin fluid for amylase and bilirubin, 02/13/25 states she feels well, abdomen non tender, non distended, wound clean and well approximated. drainage slightly clearer, keep npo for now, needs to resume TPN 02/14/25 PATIENT C/O BEING COLD BUT HAS NO PAIN, DRAINAGE SEEMS TO BE CLEARING, SHE HAD A BOWEL MOVEMENTS, ABDOMEN IS SOFT AND NON TENDER, NON DISTENDED, WOUND IS CLEAN AND WELL APPROXIMATED, WILL CONTINUE NPO STATUS AMYLASE ON ATTY DRAINAGE FLUID IS GOING TO TAKE SEVERAL DAYS TO BECOME AVAILABLE. CONTINUE TPN 02/16/25 DENIES PAIN,STATES SHE FEELS BETTER, WOUND VAC IN PLACE, ABDOMEN NON TENDER,NON DISTENDED, TATY DRAINAGE SMALL TO MODERATE , WILL CONTINUE IRRIGATING DRAINS, WILL REQUEST GI CONSULT TO CONSIDER ENDOSCOPY. WBC NL,H/H STABLE , ALBUMIN STILL VERY LOW. , 02/17/25 CT SCAN REVIEWED, I SUSPECT THERE IS A SMALL LEAK FROM THE APPEARANCE OF IMAGING ALTHOUGH RADIOLOGIST RECOMMENDED REPEAT CT SCAN (ORDERED). THE DRAINAGE IS SMALL AMOUNT BUT NOW IT IS WITH AN ODOR, I WILL RE INSERT NGT TO ATTEMPT DECREASING THE GASTRIC CONTENTS. ABDOMEN IS SOFT, APPROPRIATELY TENDER, WOUND VAC IN PLACE 02/18/25 AFEBRILE, NORMOTENSIVE4, WBC NL, ALL IMAGING NEGATIVE, ANGIOGRAM SHOWS NO EVIDENCE OF HYPOPERFUSION, CONTRAST AND NON CONTRAST CT SCAN FAILED TO SHOW ANY EVIDENCE OF EXTRAVASATION, THE DRAINAGE CONTINUES TO BE BROWNISH DISCOLORED AND FOULS SMELLING, EXPLAINED TO PT'S SON THAT I HAVE NO EVIDENCE OF ANY GI LEAKAGE, WILL GET A GASTROGRAFIN ENEMA ON FRIDAY, I AM TRYING TO REFRAIN FROM OPERATING ON THE FRAIL ELDERLY PATIENT FOR THE THIRD TIME, SHE WILL NOT TOLERATE ANOTHYER OPERATION WELL. HER ALBUMIN REMAINS VERY LOW.WOUND VAC OK 02/19/25 feels ok,c/o being cold, abdomen soft. non distended, minimally tender, drainage seems to be little less, labs ok, continue as is 02/22/25 she feels well, abdomen is non tender, soft and non distended, drainage slightly less in volume, still discolored,gastrografin enema reviewed by me ( no radiologist/s interpretation available), she has not evacuated the gastrografin according to nurse. 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 will proceed with operation on 02/25/25 at 0715 AM. 02/27/25 SLIGHT IMPROVEMENT, ABDOMEN SOFT, NON DISTENDED, STOMA VIABLE WITHOUT FUNCTION, OK TO TRY GETTING OFF VENTILATOR. 03/01/25 extubated, conversant,oriented, abdomen non distended, appropriately tender, wound clean ans well approximated, drainage serous, stoma viable and with minimal liquid,no gas. will sips of water and ice po 03/02/25 awake comfortable, denies pain, abdomen appropriately tender, wound vac in place, afebrile, normotensive, drainage serosanguineous, cbc stable, stoma viable and with minimal output will resume irrigation of drain 03/03/25 awake ,cooperative, good inspiratory effort, afebrile, normotensive, wound covered with wound vac, drainage serous but cloudy(cultures ordered) abdomen non tender, stoma viable with minimal output. will order gastrografin ugi with small bowel follow throught for tomorow 03/04/25 vital signs stable, good urine output, wound vac ok, abdomen non tender. Xray pending 03/05/25 UGI X RAY SHOWS A NEW AREA OF LEAK,BEING ADEQUATELY DRAINED BY THE TATY DRAIN WHICH IS ADJACENT TO IT, HER ABDOMEN IS NON TENDER. WILL RESUME STRICT NPO STATUS, KEEP NGT TO CONTINUOUS SUCTION, I HAVE CALLED HER SON ILIANA AND EXPLAINED THAT PROBABLY THE INTESTINAL WALL IS NOT HEALING WHENEVER WE PLACE SUTURE AT SITES OF ANASTOMOSES. HER ABDOMEN IS NON TENDER, I WILL TREAT THIS CONSERVATIVELY FOR SOME TIME TO SEE IF THE LEAK MAY SHOW SOME EVIDENCE OF HEALING. YESTERDAY THERE WAS 500 CC OF TATY DRAINAGE. HER ALBUMIN LEVEL IS SLOWLY IMPROVING BUT STILL REMAINS LOW. IT APPEARS THAT THE SUTURES IN HER INTESTINAL ANASTOMOSES HOLD FOR ABOUT A WEEK AND THEN BREAK DOWN. (DRAINAGE TURNED FROM SEROSANGUINEOUS TO GREENISH YESTERDAY. 03/06/25 drainage slightly less in volume, still enteric contents abdomen softn and non tender, non distended. wound vac changed, wound healing, no chjanges for now. discussed with family. 03/08/29 feels better, no pain, abdomen soft and non tender, drainage minimally less, family at bedside, answered questions 03/09/25 son at bedside, patient feels "well" wants to eat, explained that we need to keep her intestine at rest' afebrile, normotensive, drainage less, abdomen non tender, wound vac in p-lace wbc normal today. h/h stable/ continue npo aqnd ngt there is stool in stoma appliance 03/13/25 SLOW IMPROBVEMENT,ABDOMEN NON TENDER, NON DISTENDED, SOME STOOL IN STOMA, DRAINAGE SLIGHTLY LESS VOLUME, CONTINUE IS, NEEDS MOR IV FLUYID (ORDERS GIVEN) 03/15/25 stable, having the NG tube clamped did not cause distress nor did it result in increase of the TATY drainage ,I have therefore removed the NG tube, she does need to remain NPO however, if there are no major changes in her condition in the next 48 hours she would be stable to transfer to a SNF on TPN, I will gladly make "house calls " on here at the facility . abdomen remains non distended, non tender, wound awaiting a wound vac but it is without evidence of infection, I have digitally probed the styoma which has inverted on itself, it is patent ancd without stenosis below the skin level. 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 drainage unchanged 03/22/25 doing well ,drainag clear, stoma viable and functioning, abdomen soft and appropriately tender, wound vac, labs reviewed. 03/25/25 until yeswterday she had minimal serous drainage in the TATY drain, this morning however tghe drainage is more voluminous and apperas to contain bile, her abdomen is non distended and appropriately tender, however i believe that the bowel has developed another "leak", I CALLED PATIENT SON AND EXPLAINED THE SITUATION TO HIM 03/26/25 transient hypotension responded to iv fluid bolus, drainage today is serosanguineous and there is some output of enteric contents through the ileostomy. have asked nurse to deflate the balloon on the leach catheter inside the ileostomy. abdomen non distended less tender than yesterday. she is feeling better than she did yesterday. I had a regine discussion with patient's son and told him that his mom will most likely not recover from this condition and if it was my mother I would give some consideration to taking her home on hospice. and I explained how hospice functions. He will discuss with family. 03/27/25 diastolic hypertension, abdomen soft, nopn disten ded, patient asleep, wound unchanged, DRAINAGE CLOUDY, VOLUME UNCHANGED, ILEOSTOMY OUTPUT IMPROVED, AWAITING FAMILY'S DECISION RE HOSPICE DISCHARGE 03/28/25 clinically unchanged, wound dressing dry, taty drainage brownish, moderate, ileostomy functioning, nurse informed me that family would like a second opinion,I have called to see patient and talk with family. so far no decision on hospice 03/29/25 slowly deteriorating, now with liver failure and jaundice, BUN and creatinine also increasing. abdomen examination unchanged. ACCORDING TO NURSE THERE IS A FAMILY CONFERENCE WITH SCHEDULED FOR THIS AFTERNOON. I will be available by phone if needed. Dr Rivera apparently saw pt yesterday, awaiting his report of second opinion . l Plan discussed with: Other Dietary Evaluation Review Comments: Nutrition Recommendation: 1) TPN to meet at least 75% estimated needs within 7 days 2) Monitor NPO status, lab values, wt trend, I/O Expected Outcomes/Goals: To meet >75% estimated needs Lab values to improve Fu 2-3 days Is there a minimum of two crit: Yes MELVA RAMESH MD Mar 29, 2025 11:39
[2025-03-29] MEDS: LACTATED RINGER'S 1,000 ML IV SCH (16:37)
[2025-03-29] MEDS: SODIUM CHLORIDE 0.9% 1,500 ML IV ONE (16:45)
[2025-03-29] MEDS: NOREPINEPHRINE 8 MG/250ML KIT 250 ML IV SCH (16:51)
--- NOTE | 2025-03-29 17:34 | DVHPNRES ---
Progress Note Date Seen: Mar 29, 2025 Resident Creating Document: CARMEL SNYDER RESIDENT Has the PT tested + for MRSA If YES, has PT been informed?: No Medical Necessity Reason Pt with a Central, PICC or Fol: Yes The following are medically ne: PICC Line, Leach Catheter Reason for leach catheter: Strict I&O Subjective Review of Systems Ms. Hays is a 80 year old female with PMHx of hypertension, AFib on eliquis, type 2 diabetes mellitus, and chronic kidney disease, who presented to [facility] with chief complaint of constipation and abdominal pain. The patient referred intermittent minimal pain the previous 4 months, which progressively worsened described as described the abdominal pain is sharp constant pain, diffuse in nature, 9/10, radiates to the back and associated with constipation. Initial abdominal CT without IV contrast demonstrated free intraperitoneal likely from visceral perforation of the left abdominal small bowel loops, circumferential wall thickening of left abdominal small bowel loop with more focal local pool of gas adjacent to this thickened small bowel loop. The patient was found to have peritonitis secondary to perforated diverticulitis, for which she underwent an exploratory laparotomy on 01/13/2025 with resection of perforated bowel and formation of enteroenterostomy. Patient was to found to be in septic shock requiring intubation and vasopressor support. Due to abnormal CARMEN drain output, the patient has required multiple follow up exploratory laparotomies on 02/04/2025, 02/25/2025, 03/20/2025, and 03/24/2025, with subsequent resections of affect bowel. Previous medical history: Hypertension, AFib on eliquis (per record the patient was not taking this medication), Type 2 Diabetes mellitus, CKD Previous surgical history: C - section, hernia repair Social: Patient lives with family. Denies previous drug, tobacco, or alcohol use 03/29/2025: Patient seen in the ICU today. Currently continues without supplemental oxygen. Currently on Levophed. Per her nurse, Li, overnight had increase of drain output, pain was more difficult to control with Dilaudid, and she continues to be more confused. She is has periods more alertness, however remains confused. She was jaundiced, CARMEN and ostomy output are high draining brown red fluid. Chest x-ray from yesterday showed no changes from previous exams. She has remained afebrile since Friday, has been hypotensive for the majority of the day requiring initiation of 250 cc bolus of NS, maintenance LR, and reinitiation of Levophed. HB is stable, platelets slightly increased to 45. Total bilirubin continued to down trend today value of 6.8. Family discussed case with Dr. Rivera today who states from a surgical standpoint patient is not a candidate for further surgery, they will continue to what the drains and their output and we will lower TPN due to liver failure. 03/28/2025: Patient was seen in ICU today. Currently without supplemental oxygen, not on pressors at this time. She is slightly confused, however is able to answer questions. Patient is jaundiced, CARMEN and ostomy output continue to be high. During evaluation patient presents increased work of breathing for which a chest xray has been ordered. Hb progressively downtrending, PLTs currently 40. Total bilirubin is 8.4, improved from previous 11. Blood cultures from 03/26/2025 growing gram negative rods, for which cefepime and flagyl were started. Family would like second opinion regarding prognosis of patient. Dr. Henry Rivera has been consulted and states he will have a family meeting tomorrow at 3 pm to discuss the case with the patient's relatives. Objective vital signs Vital Sign Date Time Temp Pulse Resp B/P (MAP) Pulse Ox O2 Delivery O2 Flow Rate FiO2 03/29/25 16:51 96/27 03/29/25 16:50 98 24 03/29/25 16:30 98 03/29/25 16:00 98.8 98.8 03/29/25 06:00 Room Air* 0 21 Total Intake and Output 03/28/25 03/28/25 03/29/25 15:00 23:00 07:00 Intake Total 852 ml 684 ml 600 ml Output Total 915 ml 775 ml Balance 852 ml -231 ml -175 ml medications Current Medications Medications Dose Ordered Sig/Isaura Route Start Time Stop Time Status Last Admin Dose Admin Cefazolin Sodium 50 ml @ 100 mls/hr Q8HR IV 01/13/25 14:00 UNV Vasopressin 20 units/Sodium Chloride 100 ml @ 9 mls/hr Q11H7M IV 01/13/25 18:45 UNV Potassium Chloride 100 ml @ 50 mls/hr Q2H IV 01/16/25 12:45 01/16/25 18:44 UNV Vancomycin HCl 100 ml @ 100 mls/hr DAILY@1200 IV 01/20/25 12:00 UNV Amino Acids 0 ml @ 0 mls/hr PER PHARMACY IV 02/13/25 10:45 Ondansetron HCl 4 mg Q4HPRN PRN IV 02/21/25 09:30 03/12/25 17:08 4 MG Multi-Ingredient Ointment 1 applic DAILY TOP 02/23/25 10:00 03/29/25 11:09 1 APPLIC Diagnostic Test (Pha) 1 strip Q4HR 02/26/25 16:00 Cancel Diagnostic Test (Pha) 1 strip IQ4HR 02/26/25 16:00 UNV Dextrose 50 ml UD PRN IV 02/26/25 16:00 UNV Pantoprazole Sodium 40 mg BID IV 03/08/25 22:00 03/29/25 10:41 40 MG Levothyroxine Sodium 50 mcg DAILY IV 03/09/25 10:00 03/29/25 10:41 50 MCG Lidocaine 1 patch DAILY TOP 03/12/25 10:00 03/28/25 10:18 1 PATCH Acetaminophen 650 mg Q6HP PRN OR 03/18/25 10:00 03/26/25 08:08 650 MG Phenylephrine HCl 80 mg/Sodium Chloride 250 ml @ 7.5 mls/hr Q24H IV 03/23/25 22:45 UNV Hydromorphone HCl 0.5 mg Q3HP PRN IV 03/24/25 12:30 03/29/25 16:50 0.5 MG Daptomycin / Sodium Chloride 50 ml @ 100 mls/hr DAILY IV 03/25/25 10:00 UNV Daptomycin 250 mg/ Sodium Chloride 50 ml @ 100 mls/hr DAILY IV 03/25/25 10:00 03/29/25 10:39 100 MLS/HR Diagnostic Test (Pha) 1 strip Q6HR 03/26/25 12:00 03/29/25 13:30 1 STRIP Insulin Human Regular FOLLOW SLIDING SCALE Q6HR SC 03/26/25 12:00 03/29/25 13:32 12 UNITS Dextrose 50 ml UD IV 03/26/25 09:30 Metronidazole 100 ml @ 100 mls/hr Q8HR IV 03/26/25 22:00 03/29/25 14:46 100 MLS/HR Hydralazine HCl 10 mg Q6HP PRN IV 03/27/25 02:00 03/27/25 02:14 10 MG Lactulose 30 ml TID NG 03/27/25 06:00 03/29/25 05:42 30 ML Cefepime HCl 50 ml @ 12.5 mls/hr Q12HR IV 03/27/25 22:00 03/29/25 13:30 12.5 MLS/HR Fat Emulsion Intravenous 50 ml/ Potassium Acetate 60 meq/Magnesium Sulfate 8 meq/ Multivitamins 10 ml/Amino Acids/ Dextrose/Purified Water 1,692 ml @ 70 mls/hr [id number] IV 03/28/25 22:00 03/29/25 21:59 03/28/25 21:26 70 MLS/HR Fat Emulsion Intravenous 50 ml/ Potassium Acetate 30 meq/Potassium Phosphate 33 meq/ Magnesium Sulfate 8 meq/ Multivitamins 10 ml/Amino Acids/ Dextrose/Purified Water 1,584.5 ml @ 60 mls/hr [id number] IV 03/29/25 22:00 03/30/25 21:59 Lactated Ringer's 1,000 ml @ 50 mls/hr Q20H IV 03/29/25 16:15 03/29/25 16:37 50 MLS/HR Norepinephrine Bitartrate 250 ml @ 3.75 mls/hr Q24H IV 03/29/25 16:15 03/29/25 16:51 3.75 MLS/HR Examination General: AOx2, jaundiced HEENT: Normocephalic, atraumatic, normal reactive pupils, EOM intact, icteric sclera, dry mucus membranes Respiratory/pulmonary: Bilateral chest expansion, no pain on palpation of chest wall, clear lungs bilaterally, vesicular murmurs present in almost all lung sutton, no crackles Cardiovascular: Normal RRR, normal S1 and S2, no murmurs Abdomen: Abdomen nondistended, presence of ostomy bags in mid right to lower quadrant, ACRMEN drain located on left abdomen, active bowel sounds, soft, pain to palpation in areas surrounding ostomy, no palpable masses. : Presence of Leach Extremities: No deformities, there is no peripheral edema present at the lower extremities, normal pulses Skin: Jaundiced, as mentioned above Neurological: Intact cranial nerves with no focal neurologic deficits laboratory and microbiology Laboratory Tests 03/29/25 03:08 Test 03/29/25 03:08 Range/Units Serum Glucose 157 H 74-106 mg/dL Microbiology Date/Time Source Procedure Growth Status 03/26/25 00:08 Blood Blood Culture - Preliminary Resulted 03/20/25 08:12 Peritoneal Fluid Gram Stain - Final Complete 03/20/25 08:12 Peritoneal Fluid Anaerobic Culture - Final Complete 03/20/25 08:12 Aerobic Culture - Final Enterococcus faecium - VRE Complete 03/16/25 15:48 Urine - Leach [place] Urine Culture - Final Yeast, not Zoe albicans Complete 02/25/25 11:48 Sputum Gram Stain - Final Complete 02/25/25 11:48 Sputum Respiratory Culture - Final Complete 01/13/25 17:10 Nose MRSA Screen - Final Complete Problem List/Assessment/Plan Problem List/Assessment/Plan Neurology #Chronic Ischemic Changes and Cortical Atrophy - Head CT: 01/28/2025: Chronic sequelae of microangiopathy and atrophic cortical focal volume loss. Cardiovascular #Septic Shock secondary to peritonitis due to hollow viscus perforation #Chronic diastolic heart failure without exacerbation - Echocardiogram: 01/15/2025: Normal LVEF 65%, mild LVH, mild LV diastolic dysfunction #Paroxysmal Afib - Currently not on therapeutic Lovenox due to low hemoglobin - CHADsVasc 5 # Hypertension - Monitor - Hydralazine 10 mg IV PRN Respiratory # Acute hypoxic respiratory failure secondary to bilateral pleural effusion/ pneumonia # Ventilator -Intubated () -Extubated (02/07/2025) -Reintubation (02/25/2025) -Extubation ( 02/28/2025) -Due to observed increased work of breathing, chest xray was ordered which shows no significant change from the previous study. Stable support devices. Persistent heart failure pattern. -Sputum culture 01/29: Presumptive Zoe albicans, Sputum culture from 02/25: negative GI # Acute bacterial peritonitis due to small bowel perforation secondary to perforated diverticulitis -CT abdomen: 01/12/2025: Free intraperitoneal air likely from visceral perforation of a left abdominal small bowel loop. Circumferential wall thickening of a left abdominal small bowel loop with more focal locules of gas adjacent to this thickened small bowel loop . There may be sinus tracts or a fistulous network between adjacent small bowel loops in the left abdomen with image numbers above. Mild ascites and diffuse soft tissue stranding of the mesentery # Transaminitis secondary to shock # Anion gap metabolic acidosis due to bowel ischemia and lactic acidosis # Elevated bilirubin secondary to TPN - Exploratory laparotomy 01/13/2025: Resection of perforated bowel enteroenterostomy - Exploratory laparotomy 02/04/2025: Resection near previous resection - Exploratory laparotomy 02/25/2025: Resection of distal ileum - Exploratory laparotomy 03/20/2025: Very extensive lysis of adhesions, repair of 3 ischemic perforations of small bowel, evacuation of multiple interloop abscesses, revision of ileostomy. - Exploratory laparotomy 03/24/2025: - IR-guided pigtail drain placed; drained 50 cc purulent fluid. - CARMEN drains placed in 4 quadrants initially and now patient has only 1 CARMEN drain - Peritoneal fluid (01/13): E. coli, Klebsiella pneumoniae (sensitive to meropenem). - Peritoneal fluid (02/17): E. coli, Stenotrophomonas maltophilia. - Aspirate culture: (03/02): VRE - Aspirate culture :(04/02) : VRE - Blood cultures (03/26): Gram negative rods - New blood cultures have been ordered - Micafungin (03/17), Daptomycin (03/24) cefepime, Flagyl added (03/26) - Levofloxacin, Flagyl (02/03); Vancomycin and Meropenem (); Meropenem (); Vancomycin (), Bactrim stopped (03/08) - Per surgery: The patient is currently not a candidate for continued surgical intervention, they will continue to watch the drains and will lower rate of TPN - Patient is NPO, currently with NG tube #Acute Liver Failure - TPN will be decreased # Peptic ulcer prophylaxis -Pantoprazole 40 mg IV daily # Leach catheter Nephrology -#ISRRAEL likely hemodynamically mediated/VMN - Resolved - Monitor renal function - Avoid nephrotoxix drugs #Hypokalemia - Monitor - Replete as needed #Hyperkalemia - Monitor #Hyponatremia, resolved #Hypophosphatemia - Replete as needed Infectious disease # Septic shock secondary to acute bacterial peritonitis due to small bowel perforation secondary to perforated diverticulitis - Exploratory laparotomy 01/13/2025: Resection of perforated bowel enteroenterostomy - Exploratory laparotomy 02/04/2025: Resection near previous resection - Exploratory laparotomy 02/25/2025: Resection of distal ileum - Exploratory laparotomy 03/20/2025:Very extensive lysis of adhesions, repair of 3 ischemic perforations of small bowel, evacuation of multiple interloop abscesses, revision of ileostomy. - Exploratory laparotomy 03/24/2025: - IR-guided pigtail drain placed; drained 50 cc purulent fluid. - CARMEN drains placed in 4 quadrants initially and now patient has only 1 CARMEN drain - Peritoneal fluid (01/13): E. coli, Klebsiella pneumoniae (sensitive to meropenem). - Peritoneal fluid (02/17): E. coli, Stenotrophomonas maltophilia. - Aspirate culture: (03/02): VRE - Aspirate culture :(04/02) : VRE - Blood cultures (03/26): Gram negative rods - New blood cultures have been ordered - Micafungin (03/17), Daptomycin (03/24) cefepime, Flagyl added (03/26) - Levofloxacin, Flagyl (02/03); Vancomycin and Meropenem (); Meropenem (); Vancomycin (), Bactrim stopped (03/08) - Levophed 8 mcg restarted (03/29) Hem/onc #Acute on chronic anemia - Last PRBC transfusion on 02/28/2025 #Severe thrombocytopenia HIT #Acute DVT of right upper extremity - Venous duplex US of right upper extremity: partial thrombus in right internal jugular ad cephalic vein - Left upper extremity Venous Duplex US: thrombus in left brachial vein and bilateral cephalic veins - Hold anticoagulation at this time Endocrine # Hypothyroidism - TSH previously 42 --> 0.90 - Levothyroxine 50 mcg # Type 2 Diabetes Mellitus, HbA1c: 8.1 - Sliding scale insulin Nutrition # Severe protein malnutrition # TPN Lines Airway: Intubated on 01/14, extubated on 02/07, reintubated on 02/25 extubated 02/28 Vascular Access: PICC line placed in right upper thigh on 01/26. Drips: Dc'd pressors and sedatives. Urinary: Leach catheter placed on 01/14, exchanged on 02/14. Exchanged on 03/17. CARMEN drains in 1 quadrant. Ostomy bag in lower right abdominal quadrant PUD prophylaxis: Protonix DVT prophylaxis: Held at this time due to anemia Physical therapy ordered Critical care time 68 minutes excluding procedure. including dw consultants - surgery about plan of care Code status discussed greater than 20 minutes: Full CODE STATUS. Family at bedside explained about the condition of the patient Plan discussed with Dr. Self Plan discussed with: Son, Other (Nurses) My Orders My Orders Orders - CARMEL SNYDER RESIDENT Procedure Category Date Status Time Chest Xray 1 View XY 03/28/25 Resulted 18:51 Blood Culture MARIA ISABEL 03/29/25 In Process 04:00 Ok To Change Leach ORDERS 03/29/25 Transmitted 16:42 Complete Blood Count LAB 03/30/25 Verified 04:00 PTPTT LAB 03/30/25 Verified 04:00 Dietary Evaluation Review Comments: Nutrition Recommendation: 1) TPN to meet at least 75% estimated needs within 7 days 2) Monitor NPO status, lab values, wt trend, I/O Expected Outcomes/Goals: To meet >75% estimated needs Lab values to improve Fu 2-3 days Is there a minimum of two crit: Yes CC Plasma Assessment Blood Product Administration S: [id number] Date of Service: Mar 29, 2025 Billing Provider: ZBIGNIEW SELF MD Common Visit Codes: [id number] CARE 30-74 MIN CARMEL SNYDER Mar 29, 2025 17:34 ZBIGNIEW SELF MD Mar 30, 2025 15:39
[2025-03-29] MEDS: TPN PER PHARMACY IV NR (22:08)
[2025-03-30] VITALS (95 sets, daily range): BP systolic 72–146; BP diastolic 13–96; PULSE 89–115; RESP 11–31; TEMP 96.5–97.7; O2SAT 84–100
[2025-03-30 03:23] LABS: Hemoglobin 8.9 g/dL (12.2-16.2); Nucleated Red Blood Cells % 0.2 %
[2025-03-30 03:27] LABS: Hematocrit 26.5 % (36.0-46.0); Mean Corpuscular Hemoglobin 34.0 pg (28.0-32.0); Mean Corpuscular Volume 100.5 fL (80.0-100.0)
[2025-03-30 03:45] LABS: Alanine Aminotransferase 39 U/L (7-40); Alkaline Phosphatase 93 U/L (46-116); Anion Gap 11 (5-15); BUN/Creatinine Ratio 44.3 (10.0-20.0); Calcium 9.4 mg/dL (8.7-10.4); Magnesium 2.0 mg/dL (1.6-2.6); Potassium 3.8 mmol/L (3.5-5.1); Sodium 143 mmol/L (136-145)
[2025-03-30 04:07] LABS: Albumin 1.6 g/dL (3.2-4.8); Bilirubin, Total 6.0 mg/dL (0.2-1.0); Blood Urea Nitrogen 47 mg/dL (9-23); Carbon Dioxide 19 mmol/L (20-31); Chloride 113 mmol/L (98-107); Glucose 188 mg/dL (74-106); Total Protein 4.5 g/dL (5.7-8.2)
[2025-03-30 04:26] LABS: INR 1.97 (0.9-1.15); Partial Thromboplastin Time 47.3 SEC (24.5-34.5); Prothrombin Time 19.5 sec (9.3-11.8)
[2025-03-30] MEDS: POTASSIUM PHOSPHATE 22 MEQ in SODIUM CHL 0.9% 100 ML IV ONE (11:33)
--- NOTE | 2025-03-30 11:56 | DVHPN2 ---
Progress Note Date Seen: Mar 30, 2025 Has the PT tested + for MRSA If YES, has PT been informed?: No Medical Necessity Reason Pt with a Central, PICC or Fol: Yes The following are medically ne: PICC Line, Leach Catheter Reason for leach catheter: Strict I&O Objective vital signs Vital Sign Date Time Temp Pulse Resp B/P (MAP) Pulse Ox O2 Delivery O2 Flow Rate FiO2 03/30/25 08:45 100 24 99/24 (49) 100 03/30/25 08:03 96.5 96.5 03/30/25 08:00 Room Air* 0 21 Total Intake and Output 03/29/25 03/29/25 03/30/25 15:00 23:00 07:00 Intake Total 610 ml 836.25 ml 1052.00 ml Output Total 1325 ml 970 ml Balance 610 ml -488.75 ml 82.00 ml medications Current Medications Medications Dose Ordered Sig/Isaura Route Start Time Stop Time Status Last Admin Dose Admin Cefazolin Sodium 50 ml @ 100 mls/hr Q8HR IV 01/13/25 14:00 UNV Vasopressin 20 units/Sodium Chloride 100 ml @ 9 mls/hr Q11H7M IV 01/13/25 18:45 UNV Potassium Chloride 100 ml @ 50 mls/hr Q2H IV 01/16/25 12:45 01/16/25 18:44 UNV Vancomycin HCl 100 ml @ 100 mls/hr DAILY@1200 IV 01/20/25 12:00 UNV Amino Acids 0 ml @ 0 mls/hr PER PHARMACY IV 02/13/25 10:45 Ondansetron HCl 4 mg Q4HPRN PRN IV 02/21/25 09:30 03/12/25 17:08 4 MG Multi-Ingredient Ointment 1 applic DAILY TOP 02/23/25 10:00 03/30/25 09:40 1 APPLIC Diagnostic Test (Pha) 1 strip Q4HR 02/26/25 16:00 Cancel Diagnostic Test (Pha) 1 strip IQ4HR 02/26/25 16:00 UNV Dextrose 50 ml UD PRN IV 02/26/25 16:00 UNV Pantoprazole Sodium 40 mg BID IV 03/08/25 22:00 03/30/25 09:39 40 MG Levothyroxine Sodium 50 mcg DAILY IV 03/09/25 10:00 03/30/25 09:40 50 MCG Lidocaine 1 patch DAILY TOP 03/12/25 10:00 03/28/25 10:18 1 PATCH Acetaminophen 650 mg Q6HP PRN KS 03/18/25 10:00 03/26/25 08:08 650 MG Phenylephrine HCl 80 mg/Sodium Chloride 250 ml @ 7.5 mls/hr Q24H IV 03/23/25 22:45 UNV Hydromorphone HCl 0.5 mg Q3HP PRN IV 03/24/25 12:30 03/30/25 02:01 0.5 MG Daptomycin / Sodium Chloride 50 ml @ 100 mls/hr DAILY IV 03/25/25 10:00 UNV Daptomycin 250 mg/ Sodium Chloride 50 ml @ 100 mls/hr DAILY IV 03/25/25 10:00 03/30/25 10:24 100 MLS/HR Diagnostic Test (Pha) 1 strip Q6HR 03/26/25 12:00 03/30/25 05:27 1 STRIP Insulin Human Regular FOLLOW SLIDING SCALE Q6HR SC 03/26/25 12:00 03/30/25 05:27 4 UNITS Dextrose 50 ml UD IV 03/26/25 09:30 Metronidazole 100 ml @ 100 mls/hr Q8HR IV 03/26/25 22:00 03/30/25 05:26 100 MLS/HR Hydralazine HCl 10 mg Q6HP PRN IV 03/27/25 02:00 03/27/25 02:14 10 MG Lactulose 30 ml TID NG 03/27/25 06:00 03/30/25 05:26 30 ML Cefepime HCl 50 ml @ 12.5 mls/hr Q12HR IV 03/27/25 22:00 03/30/25 09:39 12.5 MLS/HR Fat Emulsion Intravenous 50 ml/ Potassium Acetate 30 meq/Potassium Phosphate 33 meq/ Magnesium Sulfate 8 meq/ Multivitamins 10 ml/Amino Acids/ Dextrose/Purified Water 1,584.5 ml @ 60 mls/hr [id number] IV 03/29/25 22:00 03/30/25 21:59 03/29/25 22:08 60 MLS/HR Lactated Ringer's 1,000 ml @ 50 mls/hr Q20H IV 03/29/25 16:15 03/30/25 10:25 50 MLS/HR Norepinephrine Bitartrate 250 ml @ 3.75 mls/hr Q24H IV 03/29/25 16:15 03/29/25 16:51 3.75 MLS/HR Fat Emulsion Intravenous 50 ml/ Potassium Acetate 20 meq/Potassium Phosphate 33 meq/ Magnesium Sulfate 4 meq/ Multivitamins 10 ml/Insulin Human Regular 7 units/ Amino Acids/ Dextrose/Purified Water 1,578.57 ml @ 60 mls/hr [id number] IV 03/30/25 22:00 03/31/25 21:59 laboratory and microbiology Laboratory Tests 03/30/25 02:30 Test 03/30/25 02:30 Range/Units Serum Glucose 188 H 74-106 mg/dL Problem List/Assessment/Plan Problem List/Assessment/Plan 01/14/25 afebrile, low dose BP support, received transfusion, I believe her decreased hematocrit is due to hemodilution. abdomen non distended, soft, wound clean and well approximated, drainage serous . remains intubated and sedated 01/16/25 ALKALOSIS, ABDOMEN NON DISTENDED, SOFT, DRAINAGE SEROUS, WOUND CLEAN AND WELL APPROXIMATED 01/17/25 improved, thrombocytopenia possibly made worse by Fluconazole,will DC, abdomen non distended, wound well approximated without infection, TATY drainage serous, CVP 6, good urine output. 01/18/25 abg reviewed, ,abdomen soft, non distended, TATY drainage clear serous, no bowel activity, febrile, urine output ok, continues with thrombocytopenia,pt and inr slightly elevated. prognosis grave. 01/20/25remains sedated on ventilator, abdomen soft, non distended, faint bowel sounds auscultated by nurse, wound clean and well approximated, TATY drainage clear serous. continues with thrombocytopenia, still behind on intravascular volume( BUN and Creatinine elevated), i would give more IV fluids and DC vancomycin. 01/25/25 afebrile, normotensive, wound clean and well approximated, TATY drainage serous, abdomen non distended, soft, gastrografin small bowel series shows non obstructed GI tract and no evidence of extravasation. It is OK to initiate enteric feedings. 01/29/25 16 DAYS POST OPERATIVELY TRHE TATY DRAINAGE WHICH HAD CONSISTENTLY BEEN SEROUS OR SERO SANGUINEOUS HAS BECOME "DIRTY" BROWNISH DISCOLORATION, HER WOUND IS CLEAN AND WELL APPROXIMATED AND HER ABDOMEN IS SOFT AND NON DISTENDED, CT SCAN SHOWS SO0ME FLUID AND ACCUMULATION OF FLUID AROUND THE SPLEEN, WILL REQUEST CT GUIDED ASPIRATION OF SAME, WILL ORDER IRRIGATION OF DRAINS. SHE SI AFEBRILE AND MAINTAINS NORMAL BLOOD PRESSURE, HER WBC IS NORMAL. 01/30/25 improved, awake, being weaned off vent. abdomen non distended, non tender, taty drainage clearing with irrigation 02/02/25clinically unchanged, gastrografin small bowel series reported and normal, no extravasation reported, will order a follow ujp KUB for tomorrow AM 02/03/25 PATIENT HAD A GASTROGRAFIN SMALL BOWEL SERIES AND A FOLLOW UP KUB X RAYS NEITHER ONE OF WHICH SHOW EXTRAVASATION OF CONTRAST OR EVIDENCE OF FREE CONTRAST IN THE PERITONEAL CAVITY. THERE IS HOWEVER VISCOUS, BROWNISH FLUID DRAINING VIA BOTH TATY DRAINS AND THROUGH INFRAUMBILICAL PORTION OF MIDLINE WOUND, I REMOVED THE RICHIE FROM THE 3 CM SECTION OF THE INFRAUMBILICAL WOUND AND EVACUATED ABOUT 30 CC OF THIS FLUID AND INSTRUCTED THE NURSE TO PLACE A STOMA APPLIANCE ON THIS OPENING. 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 TODAY HER WBC IS ELEVATED, ABDOMEN CONTINUES TO BE NON DISTENDED, SOFT, BUT SHE DOES HAVE SLIGHT TENDERNESS IN THE PERIUMBILICAL AREA. I WILL TREAT THIS EXPECTANTLY FORM THE TIME BEING IN THE HOPE THAT THIS IS A "CONTROLLED" FISTULA AND HOPEFUL WILL HEAL SPONTANEOUSLY WITH NPO AND NUTRITIONAL SUPPORT. WILL WATCH CLOSELY, AFTER A FEW DAYS WILL GET A FISTULOGRAM TO PIN POINT THE ENTERIC ORIGIN OF THE FISTULIZATION. CONTINUE NGT SUCTION AND DRAIN IRRIGATION ORDERED02/05/25 02/05/25 remains sedated and intubated?ventilated, abdomen non distended soft, wound vac in place. TATY drainage serosanguineous 02/08/25 EXTUBATED, GOOD INSPIRATORY EFFORT, BP NML WITHOUT PRESSOR SUPPORT, ABDOMEN SOFT, NON DISTENDED, APPROPRIATELY TENDER, LABS REVIEWED. NO CHANGES TODAY OTHER THAN ALLOW ICE CHIPS PO. WILL ORDER GASTROGRAFIN SMALL BOWEL FOLLOWTHROUGH FOR Friday02/09/25 awake cooperative, wound vac in place, abdomen soft, non distended, appropriately tender, TATY drainage brownish discoloration, will irrigate, her WBC is normal and she is afebrile and normotensive. gastrografin tomorrow 02/10/25 AWAKE,COMFORTABLE, DENIES PAIN, ABDOMEN NON DISTENDED APPROPRIATELY TENDER, WOUND CLEAN AND WELL APPROXIMATED, DRAINS BEING IRRIGATED, LABS OK, GOOD URINE OUTPUT. "SURGICALLY" STABLE 02/11/25 feels well, passing flatus. is hungry, abdomen soft non distended, drainage clearing with irrigation, will wait for Gastrografin small bowel series to be completed, if normal will start po clear liquids 02/12/25 no nausea, change in TATY drainage colort, appears to contaIN, BILE, WILL DC po CLEAR LIQUIDS, CONTINUE ICE CGHIPS, SEND DRAin fluid for amylase and bilirubin, 02/13/25 states she feels well, abdomen non tender, non distended, wound clean and well approximated. drainage slightly clearer, keep npo for now, needs to resume TPN 02/14/25 PATIENT C/O BEING COLD BUT HAS NO PAIN, DRAINAGE SEEMS TO BE CLEARING, SHE HAD A BOWEL MOVEMENTS, ABDOMEN IS SOFT AND NON TENDER, NON DISTENDED, WOUND IS CLEAN AND WELL APPROXIMATED, WILL CONTINUE NPO STATUS AMYLASE ON TATY DRAINAGE FLUID IS GOING TO TAKE SEVERAL DAYS TO BECOME AVAILABLE. CONTINUE TPN 02/16/25 DENIES PAIN,STATES SHE FEELS BETTER, WOUND VAC IN PLACE, ABDOMEN NON TENDER,NON DISTENDED, TATY DRAINAGE SMALL TO MODERATE , WILL CONTINUE IRRIGATING DRAINS, WILL REQUEST GI CONSULT TO CONSIDER ENDOSCOPY. WBC NL,H/H STABLE , ALBUMIN STILL VERY LOW. , 02/17/25 CT SCAN REVIEWED, I SUSPECT THERE IS A SMALL LEAK FROM THE APPEARANCE OF IMAGING ALTHOUGH RADIOLOGIST RECOMMENDED REPEAT CT SCAN (ORDERED). THE DRAINAGE IS SMALL AMOUNT BUT NOW IT IS WITH AN ODOR, I WILL RE INSERT NGT TO ATTEMPT DECREASING THE GASTRIC CONTENTS. ABDOMEN IS SOFT, APPROPRIATELY TENDER, WOUND VAC IN PLACE 02/18/25 AFEBRILE, NORMOTENSIVE4, WBC NL, ALL IMAGING NEGATIVE, ANGIOGRAM SHOWS NO EVIDENCE OF HYPOPERFUSION, CONTRAST AND NON CONTRAST CT SCAN FAILED TO SHOW ANY EVIDENCE OF EXTRAVASATION, THE DRAINAGE CONTINUES TO BE BROWNISH DISCOLORED AND FOULS SMELLING, EXPLAINED TO PT'S SON THAT I HAVE NO EVIDENCE OF ANY GI LEAKAGE, WILL GET A GASTROGRAFIN ENEMA ON FRIDAY, I AM TRYING TO REFRAIN FROM OPERATING ON THE FRAIL ELDERLY PATIENT FOR THE THIRD TIME, SHE WILL NOT TOLERATE ANOTHYER OPERATION WELL. HER ALBUMIN REMAINS VERY LOW.WOUND VAC OK 02/19/25 feels ok,c/o being cold, abdomen soft. non distended, minimally tender, drainage seems to be little less, labs ok, continue as is 02/22/25 she feels well, abdomen is non tender, soft and non distended, drainage slightly less in volume, still discolored,gastrografin enema reviewed by me ( no radiologist/s interpretation available), she has not evacuated the gastrografin according to nurse. 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 will proceed with operation on 02/25/25 at 0715 AM. 02/27/25 SLIGHT IMPROVEMENT, ABDOMEN SOFT, NON DISTENDED, STOMA VIABLE WITHOUT FUNCTION, OK TO TRY GETTING OFF VENTILATOR. 03/01/25 extubated, conversant,oriented, abdomen non distended, appropriately tender, wound clean ans well approximated, drainage serous, stoma viable and with minimal liquid,no gas. will sips of water and ice po 03/02/25 awake comfortable, denies pain, abdomen appropriately tender, wound vac in place, afebrile, normotensive, drainage serosanguineous, cbc stable, stoma viable and with minimal output will resume irrigation of drain 03/03/25 awake ,cooperative, good inspiratory effort, afebrile, normotensive, wound covered with wound vac, drainage serous but cloudy(cultures ordered) abdomen non tender, stoma viable with minimal output. will order gastrografin ugi with small bowel follow throught for tomorow 03/04/25 vital signs stable, good urine output, wound vac ok, abdomen non tender. Xray pending 03/05/25 UGI X RAY SHOWS A NEW AREA OF LEAK,BEING ADEQUATELY DRAINED BY THE TATY DRAIN WHICH IS ADJACENT TO IT, HER ABDOMEN IS NON TENDER. WILL RESUME STRICT NPO STATUS, KEEP NGT TO CONTINUOUS SUCTION, I HAVE CALLED HER SON ILIANA AND EXPLAINED THAT PROBABLY THE INTESTINAL WALL IS NOT HEALING WHENEVER WE PLACE SUTURE AT SITES OF ANASTOMOSES. HER ABDOMEN IS NON TENDER, I WILL TREAT THIS CONSERVATIVELY FOR SOME TIME TO SEE IF THE LEAK MAY SHOW SOME EVIDENCE OF HEALING. YESTERDAY THERE WAS 500 CC OF TATY DRAINAGE. HER ALBUMIN LEVEL IS SLOWLY IMPROVING BUT STILL REMAINS LOW. IT APPEARS THAT THE SUTURES IN HER INTESTINAL ANASTOMOSES HOLD FOR ABOUT A WEEK AND THEN BREAK DOWN. (DRAINAGE TURNED FROM SEROSANGUINEOUS TO GREENISH YESTERDAY. 03/06/25 drainage slightly less in volume, still enteric contents abdomen softn and non tender, non distended. wound vac changed, wound healing, no chjanges for now. discussed with family. 03/08/29 feels better, no pain, abdomen soft and non tender, drainage minimally less, family at bedside, answered questions 03/09/25 son at bedside, patient feels "well" wants to eat, explained that we need to keep her intestine at rest' afebrile, normotensive, drainage less, abdomen non tender, wound vac in p-lace wbc normal today. h/h stable/ continue npo aqnd ngt there is stool in stoma appliance 03/13/25 SLOW IMPROBVEMENT,ABDOMEN NON TENDER, NON DISTENDED, SOME STOOL IN STOMA, DRAINAGE SLIGHTLY LESS VOLUME, CONTINUE IS, NEEDS MOR IV FLUYID (ORDERS GIVEN) 03/15/25 stable, having the NG tube clamped did not cause distress nor did it result in increase of the TATY drainage ,I have therefore removed the NG tube, she does need to remain NPO however, if there are no major changes in her condition in the next 48 hours she would be stable to transfer to a SNF on TPN, I will gladly make "house calls " on here at the facility . abdomen remains non distended, non tender, wound awaiting a wound vac but it is without evidence of infection, I have digitally probed the styoma which has inverted on itself, it is patent ancd without stenosis below the skin level. 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 drainage unchanged 03/22/25 doing well ,drainag clear, stoma viable and functioning, abdomen soft and appropriately tender, wound vac, labs reviewed. 03/25/25 until yeswterday she had minimal serous drainage in the TATY drain, this morning however tghe drainage is more voluminous and apperas to contain bile, her abdomen is non distended and appropriately tender, however i believe that the bowel has developed another "leak", I CALLED PATIENT SON AND EXPLAINED THE SITUATION TO HIM 03/26/25 transient hypotension responded to iv fluid bolus, drainage today is serosanguineous and there is some output of enteric contents through the ileostomy. have asked nurse to deflate the balloon on the leach catheter inside the ileostomy. abdomen non distended less tender than yesterday. she is feeling better than she did yesterday. I had a regine discussion with patient's son and told him that his mom will most likely not recover from this condition and if it was my mother I would give some consideration to taking her home on hospice. and I explained how hospice functions. He will discuss with family. 03/27/25 diastolic hypertension, abdomen soft, nopn disten ded, patient asleep, wound unchanged, DRAINAGE CLOUDY, VOLUME UNCHANGED, ILEOSTOMY OUTPUT IMPROVED, AWAITING FAMILY'S DECISION RE HOSPICE DISCHARGE 03/28/25 clinically unchanged, wound dressing dry, taty drainage brownish, moderate, ileostomy functioning, nurse informed me that family would like a second opinion,I have called to see patient and talk with family. so far no decision on hospice 03/29/25 slowly deteriorating, now with liver failure and jaundice, BUN and creatinine also increasing. abdomen examination unchanged. ACCORDING TO NURSE THERE IS A FAMILY CONFERENCE WITH SCHEDULED FOR THIS AFTERNOON. I will be available by phone if needed. Dr Rivera apparently saw pt yesterday, awaiting his report of second opinion 03/30/25 patient's grandaughter at bedside, patient's condition unchanged, all questions answered.. l Plan discussed with: Patient, Other Dietary Evaluation Review Comments: Nutrition Recommendation: 1) TPN to meet at least 75% estimated needs within 7 days 2) Monitor NPO status, lab values, wt trend, I/O Expected Outcomes/Goals: To meet >75% estimated needs Lab values to improve Fu 2-3 days Is there a minimum of two crit: Yes MELVA RAMESH MD Mar 30, 2025 11:56
--- NOTE | 2025-03-30 14:31 | DVHPN2 ---
Consult Progress Note Objective vital signs Vital Sign Date Time Temp Pulse Resp B/P (MAP) Pulse Ox O2 Delivery O2 Flow Rate FiO2 03/30/25 14:16 107 20 116/26 (56) 99 03/30/25 14:00 Room Air* 0 21 03/30/25 12:01 96.6 96.6 Total Intake and Output 03/29/25 03/29/25 03/30/25 15:00 23:00 07:00 Intake Total 610 ml 836.25 ml 1052.00 ml Output Total 1325 ml 970 ml Balance 610 ml -488.75 ml 82.00 ml medications Current Medications Medications Dose Ordered Sig/Isaura Route Start Time Stop Time Status Last Admin Dose Admin Cefazolin Sodium 50 ml @ 100 mls/hr Q8HR IV 01/13/25 14:00 UNV Vasopressin 20 units/Sodium Chloride 100 ml @ 9 mls/hr Q11H7M IV 01/13/25 18:45 UNV Potassium Chloride 100 ml @ 50 mls/hr Q2H IV 01/16/25 12:45 01/16/25 18:44 UNV Vancomycin HCl 100 ml @ 100 mls/hr DAILY@1200 IV 01/20/25 12:00 UNV Amino Acids 0 ml @ 0 mls/hr PER PHARMACY IV 02/13/25 10:45 Ondansetron HCl 4 mg Q4HPRN PRN IV 02/21/25 09:30 03/12/25 17:08 4 MG Multi-Ingredient Ointment 1 applic DAILY TOP 02/23/25 10:00 03/30/25 09:40 1 APPLIC Diagnostic Test (Pha) 1 strip Q4HR 02/26/25 16:00 Cancel Diagnostic Test (Pha) 1 strip IQ4HR 02/26/25 16:00 UNV Dextrose 50 ml UD PRN IV 02/26/25 16:00 UNV Pantoprazole Sodium 40 mg BID IV 03/08/25 22:00 03/30/25 09:39 40 MG Levothyroxine Sodium 50 mcg DAILY IV 03/09/25 10:00 03/30/25 09:40 50 MCG Lidocaine 1 patch DAILY TOP 03/12/25 10:00 03/30/25 12:17 1 PATCH Acetaminophen 650 mg Q6HP PRN AR 03/18/25 10:00 03/26/25 08:08 650 MG Phenylephrine HCl 80 mg/Sodium Chloride 250 ml @ 7.5 mls/hr Q24H IV 03/23/25 22:45 UNV Hydromorphone HCl 0.5 mg Q3HP PRN IV 03/24/25 12:30 03/30/25 13:42 0.5 MG Daptomycin / Sodium Chloride 50 ml @ 100 mls/hr DAILY IV 03/25/25 10:00 UNV Daptomycin 250 mg/ Sodium Chloride 50 ml @ 100 mls/hr DAILY IV 03/25/25 10:00 03/30/25 10:24 100 MLS/HR Diagnostic Test (Pha) 1 strip Q6HR 03/26/25 12:00 03/30/25 12:15 1 STRIP Insulin Human Regular FOLLOW SLIDING SCALE Q6HR SC 03/26/25 12:00 03/30/25 12:15 4 UNITS Dextrose 50 ml UD IV 03/26/25 09:30 Metronidazole 100 ml @ 100 mls/hr Q8HR IV 03/26/25 22:00 03/30/25 13:41 100 MLS/HR Hydralazine HCl 10 mg Q6HP PRN IV 03/27/25 02:00 03/27/25 02:14 10 MG Lactulose 30 ml TID NG 03/27/25 06:00 03/30/25 13:41 30 ML Cefepime HCl 50 ml @ 12.5 mls/hr Q12HR IV 03/27/25 22:00 03/30/25 09:39 12.5 MLS/HR Fat Emulsion Intravenous 50 ml/ Potassium Acetate 30 meq/Potassium Phosphate 33 meq/ Magnesium Sulfate 8 meq/ Multivitamins 10 ml/Amino Acids/ Dextrose/Purified Water 1,584.5 ml @ 60 mls/hr [id number] IV 03/29/25 22:00 03/30/25 21:59 03/29/25 22:08 60 MLS/HR Lactated Ringer's 1,000 ml @ 50 mls/hr Q20H IV 03/29/25 16:15 03/30/25 10:25 50 MLS/HR Norepinephrine Bitartrate 250 ml @ 3.75 mls/hr Q24H IV 03/29/25 16:15 03/29/25 16:51 3.75 MLS/HR Fat Emulsion Intravenous 50 ml/ Potassium Acetate 20 meq/Potassium Phosphate 33 meq/ Magnesium Sulfate 4 meq/ Multivitamins 10 ml/Insulin Human Regular 7 units/ Amino Acids/ Dextrose/Purified Water 1,578.57 ml @ 60 mls/hr [id number] IV 03/30/25 22:00 03/31/25 21:59 laboratory and microbiology Laboratory Tests 03/30/25 02:30 Test 03/30/25 02:30 Range/Units Serum Glucose 188 H 74-106 mg/dL Problem List/Assessment/Plan Problem List/Assessment/Plan ASSESSMENT AND PLAN: ID Problem List: -Perforated small bowel with persistent leak; intra-abdominal sepsis; status post multiple exploratory laparotomies with adhesiolysis and enteroenterostomies; CARMEN drains in place -Septic shock; acute hypoxic respiratory failure -Acute kidney injury (ISRRAEL) with acute tubular necrosis (ATN) improved -Transaminitis likely ischemic hepatitis improving -Thrombocytopenia (worsened ~01/19 while on vancomycin/fluconazole) -Diabetes mellitus -On apixaban (Eliquis) for last 2 weeks indication unclear -Past surgical history: section; hernia repair Assessment This is a 10 y.o. female with diabetes and prior and hernia repair, who presented with 4 days of sharp lower abdominal pain. Initial ED evaluation notable for CT A/P demonstrating free intraperitoneal air and small bowel inflammatory changes concerning for perforated viscus with mild ascites and mesenteric stranding. She underwent an exploratory laparotomy on 01/13 with lysis of adhesions, small bowel enteroenterostomy, and placement of two Mendel- Steele drains; peritoneal cultures at that time grew Escherichia coli and Klebsiella pneumoniae (both ceftriaxone susceptible). Postoperatively she required norepinephrine (Levophed) and broad-spectrum antibiotics. Course complicated by recurrent sepsis and suspected enterocutaneous/peritoneal contamination, requiring re-exploration on 02/03 with evacuation of copious intra-abdominal infection/abscesses and revision of anastomosis; intraoperative cultures reportedly not obtained. A drain sample dated 01/28 grew Stenotrophomonas ([id number] susceptible). Ongoing respiratory issues prompted empiric vancomycin, later discontinued when sputum grew only Nancy albicans. A third operation on 02/25 for persistent feculent leakage and peritonitis showed a distal ileal perforation proximal to adhesional obstruction; this was resected with primary anastomosis, and further adhesiolysis performed. Upper GI series on 10/24 demonstrates contrast extravasation from proximal small bowel (likely left jejunum) near a surgical drain, consistent with a persistent leak that appears to be adequately drained clinically. She has been afebrile since 03/03, is extubated to 2 L NC, hemodynamically supported on low-dose norepinephrine, and clinically stable abdominally (nontender). LFTs that had peaked during ischemic episodes are improving. Renal function has improved from admission. Cultures/culture interpretation: Earlier peritoneal cultures with E. coli and Klebsiella; drain fluid with Stenotrophomonas (01/28) and subsequent peritoneal/aspirate samples showing E. coli and vancomycin-resistant Enterococcus (VRE) on 03/02; one of four blood culture bottles (03/07) positive for Staphylococcus epidermidis, felt to be contaminant. Given the persistent bowel leak with external drainage and the timing/source of cultures, current drain cultures are likely colonization and may not represent true invasive pathogens. Antimicrobial course (per transcript): initial piperacillin-tazobactam (Zosyn) + vancomycin through 01/19; vancomycin stopped for suspected contribution to thrombocytopenia; courses including meropenem and micafungin through 01/31; then levofloxacin + metronidazole + micafungin through 02/03; meropenem continued thereafter with vancomycin re-trial for presumed pneumonia (later stopped by 02/21 after Nancy-only sputum); micafungin added/continued; trimethoprim- sulfamethoxazole (Bactrim) started 02/21 for Stenotrophomonas coverage; transcript also notes meropenem and rifampin continued until today. 03/16: sp NGT removal, stoma and drain with output. off levophed 03/18: new levophed needs, intermittently febrile, drain culture w e.coli and nancy: meropenem and micafungin restarted 03/20: sp * Exploratory laparotomy. * Very extensive lysis of adhesions. * Repair of 3 ischemic perforations of small bowel. * Evacuation of multiple interloop abscesses. * Revision of ileostomy. 03/24: VRE growth on operative culture 03/26: persistent drain output 03/27: rising lactic acid, ceftriaxone switched to cefepime, anaerobic growth on blood culture 03/28: micafungin stopped, ileostomy with good output, on tpn, off pressors, bacteroides on blood culture 03/30: repeat blood culture without growth Plan: - anaerobic bacteremia: - repeat blood culture, continue flagyl -Intra-abdominal sepsis with persistent small bowel leak: -Source control: continue to ensure CARMEN drains are functioning; avoid routine re- culturing from drains as results likely represent colonization and may mislead management. -sp 03/20 exlap, repair of bowel leak -will fu on pending operative cultures -Antibiotics: - continue daptomycin for VRE coverage -De-escalate broad coverage toward enteric pathogens (E. coli/Klebsiella) and away from agents targeting colonizers. -continue cefepime -Antifungal: continue micafungin for now, however suspect this two may be a colonizer -Duration: continue until leak is resolved or clearly contained with clinical improvement. -Transition to oral therapy when patient can tolerate and when clinically appropriate. -Respiratory: extubated to 2 L NC; supportive care; chest radiograph with persistent interstitial opacities, left basilar consolidation, small pleural effusions monitor clinically. -Renal: ISRRAEL/ATN improved (Cr now ~0.99); continue renal dosing of antimicrobials as indicated; monitor BMP. -Hepatic: transaminases improving from prior ischemic hepatitis; trend LFTs. -Hematology: platelet count currently ~118 K; monitor CBC. -Anticoagulation: on apixaban (Eliquis) for unclear indication per history; reconcile indication and risk/benefit with primary/surgical teams in context of recent surgeries/leak. -Nutrition/NG: continue NG suction per surgery; nutrition per surgical/ICU teams. -Lines/Drains: maintain CARMEN drains; monitor output and character; avoid routine drain cultures. -Follow-up: ID will continue to follow clinically; adjust therapy as new data emerge. Authorized and Performed by: sheron pedraza Total critical care time: Approximately 56 minutes Due to a high probability of clinically significant, life threatening deterioration, the patient required my highest level of preparedness to intervene emergently and I personally spent this critical care time directly and personally managing the patient. This critical care time included obtaining a history; examining the patient; pulse oximetry; ordering and review of studies; arranging urgent treatment with development of a management plan; evaluation of patient's response to treatment; frequent reassessment; and, discussions with other providers. This critical care time was performed to assess and manage the high probability of imminent, life-threatening deterioration that could result in multi-organ failure. It was exclusive of separately billable procedures and treating other patients and teaching time. \ Physical Exam: General: NAD Neck: Supple. No masses. HEENT: PERRL. Normal lids and conjunctiva. Moist mucous membranes. Oropharynx without lesions, exudates or excessive erythema. Normal appearance of the external aspects of the nose and ears. Heart: Regular rhythm, normal rate. No murmur. No lower extremity edema. Lungs: Normal respiratory effort. Clear to auscultation bilaterally. No wheezes. No crackles. Abdomen: Soft. Non-tender. Non-distended. No masses or abdominal hernia. drain and stoma functional . Msk: No digital cyanosis. Normal strength and tone in all 4 limbs Skin: Warm and dry, no rashes. Neuro: Alert. No facial droop or slurred speech. Extra-ocular movements intact. Sensation intact to soft touch in all 4 limbs. Psych: Appropriate mood. Full affect. Oriented to person, place, time, and situation. Dietary Evaluation Review Comments: Nutrition Recommendation: 1) TPN to meet at least 75% estimated needs within 7 days 2) Monitor NPO status, lab values, wt trend, I/O Expected Outcomes/Goals: To meet >75% estimated needs Lab values to improve Fu 2-3 days Is there a minimum of two crit: Yes CC Plasma Assessment Blood Product Administration S: [id number] SHERON PEDRAZA MD Mar 30, 2025 14:31
--- NOTE | 2025-03-30 18:07 | DVHPNRES ---
Progress Note Date Seen: Mar 30, 2025 Resident Creating Document: CARMEL SNYDER RESIDENT Has the PT tested + for MRSA If YES, has PT been informed?: No Medical Necessity Reason Pt with a Central, PICC or Fol: Yes The following are medically ne: PICC Line, Leach Catheter Reason for leach catheter: Strict I&O Subjective Review of Systems Ms. Hays is a 80 year old female with PMHx of hypertension, AFib on eliquis, type 2 diabetes mellitus, and chronic kidney disease, who presented to [facility] with chief complaint of constipation and abdominal pain. The patient referred intermittent minimal pain the previous 4 months, which progressively worsened described as described the abdominal pain is sharp constant pain, diffuse in nature, 9/10, radiates to the back and associated with constipation. Initial abdominal CT without IV contrast demonstrated free intraperitoneal likely from visceral perforation of the left abdominal small bowel loops, circumferential wall thickening of left abdominal small bowel loop with more focal local pool of gas adjacent to this thickened small bowel loop. The patient was found to have peritonitis secondary to perforated diverticulitis, for which she underwent an exploratory laparotomy on 01/13/2025 with resection of perforated bowel and formation of enteroenterostomy. Patient was to found to be in septic shock requiring intubation and vasopressor support. Due to abnormal CARMEN drain output, the patient has required multiple follow up exploratory laparotomies on 02/04/2025, 02/25/2025, 03/20/2025, and 03/24/2025, with subsequent resections of affect bowel. Previous medical history: Hypertension, AFib on eliquis (per record the patient was not taking this medication), Type 2 Diabetes mellitus, CKD Previous surgical history: C - section, hernia repair Social: Patient lives with family. Denies previous drug, tobacco, or alcohol use 03/30/2025: Patient seen in ICU today. Currently on Levophed 4 mcg/min, without supplemental oxygen. Per her nurse, Jayme, states that overnight blood pressure was persistently low, for which they had to increase Levophed from 2 mcg to 4 mcg. Pain remains difficult to control on dilaudid. On evaluation today, the patient is more confused, is able to confirm her name and date of , unable to answer further questions. She continues o be jaundiced, CARMEN output is still high, ostomy bag draining less, continues to drain dark brownish/red fluid. She is afebrile, MAP has improved on Levophed, mostly tachycardic. CBC is stable, showing minor improvement in platelets, renal function slightly improved, total bilirubin continues to downtrend. Blood cultures growing bacteroides, which is covered by flagyl. Second set of blood cultures are currently negative at 24 hours of incubation. We will continue to monitor. 03/29/2025: Patient seen in the ICU today. Currently continues without supplemental oxygen. Currently on Levophed. Per her nurse, Li, overnight had increase of drain output, pain was more difficult to control with Dilaudid, and she continues to be more confused. She is has periods more alertness, however remains confused. She was jaundiced, CARMEN and ostomy output are high draining brown red fluid. Chest x-ray from yesterday showed no changes from previous exams. She has remained afebrile since Friday, has been hypotensive for the majority of the day requiring initiation of 250 cc bolus of NS, maintenance LR, and reinitiation of Levophed. HB is stable, platelets slightly increased to 45. Total bilirubin continued to down trend today value of 6.8. Family discussed case with Dr. Rivera today who states from a surgical standpoint patient is not a candidate for further surgery, they will continue to what the drains and their output and we will lower TPN due to liver failure. 03/28/2025: Patient was seen in ICU today. Currently without supplemental oxygen, not on pressors at this time. She is slightly confused, however is able to answer questions. Patient is jaundiced, CARMEN and ostomy output continue to be high. During evaluation patient presents increased work of breathing for which a chest xray has been ordered. Hb progressively downtrending, PLTs currently 40. Total bilirubin is 8.4, improved from previous 11. Blood cultures from 03/26/2025 growing gram negative rods, for which cefepime and flagyl were started. Family would like second opinion regarding prognosis of patient. Dr. Henry Rivera has been consulted and states he will have a family meeting tomorrow at 3 pm to discuss the case with the patient's relatives. Objective vital signs Vital Sign Date Time Temp Pulse Resp B/P (MAP) Pulse Ox O2 Delivery O2 Flow Rate FiO2 03/30/25 14:16 107 20 116/26 (56) 99 11/19/25 14:00 Room Air* 0 21 03/30/25 12:01 96.6 96.6 Total Intake and Output 03/29/25 03/29/25 03/30/25 15:00 23:00 07:00 Intake Total 610 ml 836.25 ml 1052.00 ml Output Total 1325 ml 970 ml Balance 610 ml -488.75 ml 82.00 ml medications Current Medications Medications Dose Ordered Sig/Isaura Route Start Time Stop Time Status Last Admin Dose Admin Cefazolin Sodium 50 ml @ 100 mls/hr Q8HR IV 01/13/25 14:00 UNV Vasopressin 20 units/Sodium Chloride 100 ml @ 9 mls/hr Q11H7M IV 01/13/25 18:45 UNV Potassium Chloride 100 ml @ 50 mls/hr Q2H IV 01/16/25 12:45 01/16/25 18:44 UNV Vancomycin HCl 100 ml @ 100 mls/hr DAILY@1200 IV 01/20/25 12:00 UNV Amino Acids 0 ml @ 0 mls/hr PER PHARMACY IV 02/13/25 10:45 Ondansetron HCl 4 mg Q4HPRN PRN IV 02/21/25 09:30 03/12/25 17:08 4 MG Multi-Ingredient Ointment 1 applic DAILY TOP 02/23/25 10:00 03/30/25 09:40 1 APPLIC Diagnostic Test (Pha) 1 strip Q4HR 02/26/25 16:00 Cancel Diagnostic Test (Pha) 1 strip IQ4HR 02/26/25 16:00 UNV Dextrose 50 ml UD PRN IV 02/26/25 16:00 UNV Pantoprazole Sodium 40 mg BID IV 03/08/25 22:00 03/30/25 09:39 40 MG Levothyroxine Sodium 50 mcg DAILY IV 03/09/25 10:00 03/30/25 09:40 50 MCG Lidocaine 1 patch DAILY TOP 03/12/25 10:00 03/30/25 12:17 1 PATCH Acetaminophen 650 mg Q6HP PRN NC 03/18/25 10:00 03/26/25 08:08 650 MG Phenylephrine HCl 80 mg/Sodium Chloride 250 ml @ 7.5 mls/hr Q24H IV 03/23/25 22:45 UNV Hydromorphone HCl 0.5 mg Q3HP PRN IV 03/24/25 12:30 03/30/25 13:42 0.5 MG Daptomycin / Sodium Chloride 50 ml @ 100 mls/hr DAILY IV 03/25/25 10:00 UNV Daptomycin 250 mg/ Sodium Chloride 50 ml @ 100 mls/hr DAILY IV 03/25/25 10:00 03/30/25 10:24 100 MLS/HR Diagnostic Test (Pha) 1 strip Q6HR 03/26/25 12:00 03/30/25 17:49 1 STRIP Insulin Human Regular FOLLOW SLIDING SCALE Q6HR SC 03/26/25 12:00 03/30/25 17:48 4 UNITS Dextrose 50 ml UD IV 03/26/25 09:30 Metronidazole 100 ml @ 100 mls/hr Q8HR IV 03/26/25 22:00 03/30/25 13:41 100 MLS/HR Hydralazine HCl 10 mg Q6HP PRN IV 03/27/25 02:00 03/27/25 02:14 10 MG Lactulose 30 ml TID NG 03/27/25 06:00 03/30/25 13:41 30 ML Cefepime HCl 50 ml @ 12.5 mls/hr Q12HR IV 03/27/25 22:00 03/30/25 09:39 12.5 MLS/HR Fat Emulsion Intravenous 50 ml/ Potassium Acetate 30 meq/Potassium Phosphate 33 meq/ Magnesium Sulfate 8 meq/ Multivitamins 10 ml/Amino Acids/ Dextrose/Purified Water 1,584.5 ml @ 60 mls/hr [id number] IV 03/29/25 22:00 03/30/25 21:59 03/29/25 22:08 60 MLS/HR Lactated Ringer's 1,000 ml @ 50 mls/hr Q20H IV 03/29/25 16:15 03/30/25 10:25 50 MLS/HR Norepinephrine Bitartrate 250 ml @ 3.75 mls/hr Q24H IV 03/29/25 16:15 03/29/25 16:51 3.75 MLS/HR Fat Emulsion Intravenous 50 ml/ Potassium Acetate 20 meq/Potassium Phosphate 33 meq/ Magnesium Sulfate 4 meq/ Multivitamins 10 ml/Insulin Human Regular 7 units/ Amino Acids/ Dextrose/Purified Water 1,578.57 ml @ 60 mls/hr [id number] IV 03/30/25 22:00 03/31/25 21:59 Examination General: AOx2, jaundiced HEENT: Normocephalic, atraumatic, normal reactive pupils, EOM intact, icteric sclera, dry mucus membranes Respiratory/pulmonary: Bilateral chest expansion, no pain on palpation of chest wall, clear lungs bilaterally, vesicular murmurs present in almost all lung sutton, no crackles Cardiovascular: Normal RRR, normal S1 and S2, no murmurs Abdomen: Abdomen nondistended, presence of ostomy bags in mid right to lower quadrant, CARMEN drain located on left abdomen, active bowel sounds, soft, pain to palpation in areas surrounding ostomy, no palpable masses. : Presence of Leach Extremities: No deformities, there is no peripheral edema present at the lower extremities, normal pulses Skin: Jaundiced, as mentioned above Neurological: Intact cranial nerves with no focal neurologic deficits laboratory and microbiology Laboratory Tests 03/30/25 02:30 Test 03/30/25 02:30 Range/Units Serum Glucose 188 H 74-106 mg/dL Microbiology Date/Time Source Procedure Growth Status 03/29/25 04:20 Blood Blood Culture - Preliminary NO GROWTH AFTER 24 HOURS OF INCUBATION. Resulted 03/20/25 08:12 Peritoneal Fluid Gram Stain - Final Complete 03/20/25 08:12 Peritoneal Fluid Anaerobic Culture - Final Complete 03/20/25 08:12 Aerobic Culture - Final Enterococcus faecium - VRE Complete 03/16/25 15:48 Urine - Leach [place] Urine Culture - Final Yeast, not Zoe albicans Complete 02/25/25 11:48 Sputum Gram Stain - Final Complete 02/25/25 11:48 Sputum Respiratory Culture - Final Complete 01/13/25 17:10 Nose MRSA Screen - Final Complete Problem List/Assessment/Plan Problem List/Assessment/Plan Neurology #Chronic Ischemic Changes and Cortical Atrophy - Head CT: 01/28/2025: Chronic sequelae of microangiopathy and atrophic cortical focal volume loss. Cardiovascular #Septic Shock secondary to peritonitis due to hollow viscus perforation #Chronic diastolic heart failure without exacerbation - Echocardiogram: 01/15/2025: Normal LVEF 65%, mild LVH, mild LV diastolic dysfunction #Paroxysmal Afib - Currently not on therapeutic Lovenox due to low hemoglobin - CHADsVasc 5 # Hypertension - Monitor - Hydralazine 10 mg IV PRN Respiratory # Acute hypoxic respiratory failure secondary to bilateral pleural effusion/ pneumonia # Ventilator -Intubated () -Extubated (02/07/2025) -Reintubation (02/25/2025) -Extubation ( 02/28/2025) -Due to observed increased work of breathing, chest xray was ordered which shows no significant change from the previous study. Stable support devices. Persistent heart failure pattern. -Sputum culture 01/29: Presumptive Zoe albicans, Sputum culture from 02/25: negative GI # Acute bacterial peritonitis due to small bowel perforation secondary to perforated diverticulitis -CT abdomen: 01/12/2025: Free intraperitoneal air likely from visceral perforation of a left abdominal small bowel loop. Circumferential wall thickening of a left abdominal small bowel loop with more focal locules of gas adjacent to this thickened small bowel loop . There may be sinus tracts or a fistulous network between adjacent small bowel loops in the left abdomen with image numbers above. Mild ascites and diffuse soft tissue stranding of the mesentery # Transaminitis secondary to shock # Anion gap metabolic acidosis due to bowel ischemia and lactic acidosis # Elevated bilirubin secondary to TPN - Exploratory laparotomy 01/13/2025: Resection of perforated bowel enteroenterostomy - Exploratory laparotomy 02/04/2025: Resection near previous resection - Exploratory laparotomy 02/25/2025: Resection of distal ileum - Exploratory laparotomy 03/20/2025:Very extensive lysis of adhesions, repair of 3 ischemic perforations of small bowel, evacuation of multiple interloop abscesses, revision of ileostomy. - Exploratory laparotomy 03/24/2025: - IR-guided pigtail drain placed; drained 50 cc purulent fluid. - CARMEN drains placed in 4 quadrants initially and now patient has only 1 CARMEN drain - Peritoneal fluid (01/13): E. coli, Klebsiella pneumoniae (sensitive to meropenem). - Peritoneal fluid (02/17): E. coli, Stenotrophomonas maltophilia. - Aspirate culture: (03/02): VRE - Aspirate culture :(04/02) : VRE - Blood cultures (03/26): Bacteroides caccae - Blood cultures (03/28): Negative at 24 hours - Micafungin (03/17), Daptomycin (03/24) cefepime, Flagyl added (03/26) - Levofloxacin, Flagyl (02/03); Vancomycin and Meropenem (); Meropenem (); Vancomycin (), Bactrim stopped (03/08)8) - Per surgery: The patient is currently not a candidate for continued surgical intervention, they will continue to watch the drains and will lower rate of TPN - Patient is NPO, currently with NG tube #Acute Liver Failure - TPN will be decreased # Peptic ulcer prophylaxis -Pantoprazole 40 mg IV daily # Leach catheter Nephrology -#ISRRAEL likely hemodynamically mediated/VMN - Resolved - Monitor renal function - Avoid nephrotoxix drugs #Hypokalemia - Monitor - Replete as needed #Hyperkalemia - Monitor #Hyponatremia, resolved #Hypophosphatemia - Replete as needed Infectious disease # Septic shock secondary to acute bacterial peritonitis due to small bowel perforation secondary to perforated diverticulitis - Exploratory laparotomy 01/13/2025: Resection of perforated bowel enteroenterostomy - Exploratory laparotomy 02/04/2025: Resection near previous resection - Exploratory laparotomy 02/25/2025: Resection of distal ileum - Exploratory laparotomy 03/20/2025:Very extensive lysis of adhesions, repair of 3 ischemic perforations of small bowel, evacuation of multiple interloop abscesses, revision of ileostomy. - Exploratory laparotomy 03/24/2025: - IR-guided pigtail drain placed; drained 50 cc purulent fluid. - CARMEN drains placed in 4 quadrants initially and now patient has only 1 CARMEN drain - Peritoneal fluid (01/13): E. coli, Klebsiella pneumoniae (sensitive to meropenem). - Peritoneal fluid (02/17): E. coli, Stenotrophomonas maltophilia. - Aspirate culture: (03/02): VRE - Aspirate culture :(04/02) : VRE - Blood cultures (03/26): Bacteroides caccae - Blood cultures (03/28): Negative at 24 hours - Micafungin (03/17), Daptomycin (03/24) cefepime, Flagyl added (03/26) - Levofloxacin, Flagyl (02/03); Vancomycin and Meropenem (); Meropenem (); Vancomycin (), Bactrim stopped (03/08) - Levophed 4 mcg restarted (03/29) Hem/onc #Acute on chronic anemia - Last PRBC transfusion on 02/28/2025 #Severe thrombocytopenia HIT #Acute DVT of right upper extremity - Venous duplex US of right upper extremity: partial thrombus in right internal jugular ad cephalic vein - Left upper extremity Venous Duplex US: thrombus in left brachial vein and bilateral cephalic veins - Hold anticoagulation at this time Endocrine # Hypothyroidism - TSH previously 42 --> 0.90 - Levothyroxine 50 mcg # Type 2 Diabetes Mellitus, HbA1c: 8.1 - Sliding scale insulin Nutrition # Severe protein malnutrition # TPN Lines Airway: Intubated on 01/14, extubated on 02/07, reintubated on 02/25 extubated 02/28 Vascular Access: PICC line placed in right upper thigh on 01/26. Drips: Dc'd pressors and sedatives. Urinary: Leach catheter placed on 01/14, exchanged on 02/14. Exchanged on 03/17. CARMEN drains in 1 quadrant. Ostomy bag in lower right abdominal quadrant PUD prophylaxis: Protonix DVT prophylaxis: Held at this time due to anemia Physical therapy ordered Critical care time 63 minutes excluding procedure. Code status discussed greater than 20 minutes: Full CODE STATUS. Family at bedside explained about the condition of the patient Plan discussed with Dr. Self Plan discussed with: Son (Chris), Other Dietary Evaluation Review Comments: Nutrition Recommendation: 1) TPN to meet at least 75% estimated needs within 7 days 2) Monitor NPO status, lab values, wt trend, I/O Expected Outcomes/Goals: To meet >75% estimated needs Lab values to improve Fu 2-3 days Is there a minimum of two crit: Yes CC Plasma Assessment Blood Product Administration S: [id number] Date of Service: Mar 30, 2025 Billing Provider: ZBIGNIEW SELF MD Common Visit Codes: 51635-[id number] CARE 30-74 MIN CARMEL SNYDER RESIDENT Mar 30, 2025 18:07 ZBIGNIEW SELF MD Mar 31, 2025 11:59
--- NOTE | 2025-03-30 21:15 | DVHINCON2 ---
Date of service: Mar 29, 2025 Allergies: Coded Allergies: NO KNOWN ALLERGIES (Unverified , 01/12/25) Home Meds Reported Medications Metoprolol Tartrate (Lopressor) 25 Mg Tb, 1 TAB PO BID 01/13/25 Levothyroxine Sodium (Levothyroxine Sodium) 50 Mcg Tab, 1 TAB PO QAM 01/13/25 Nortriptyline HCl (Nortriptyline Hydrochlori) 10 Mg Cap, 2 CAP PO 01/13/25 Current Medications Current Medications Medications (Trade) Dose Ordered Sig/Isaura Route PRN Reason Start Time Stop Time Status Last Admin Fat Emulsion Intravenous 50 ml/ Potassium Acetate 30 meq/Potassium Phosphate 33 meq/ Magnesium Sulfate 8 meq/ Multivitamins 10 ml/Amino Acids/ Dextrose/Purified Water 1,584.5 ml @ 60 mls/hr [id number] IV 03/29/25 22:00 03/30/25 21:59 03/29/25 22:08 Fat Emulsion Intravenous 50 ml/ Potassium Acetate 20 meq/Potassium Phosphate 33 meq/ Magnesium Sulfate 4 meq/ Multivitamins 10 ml/Insulin Human Regular 7 units/ Amino Acids/ Dextrose/Purified Water 1,578.57 ml @ 60 mls/hr [id number] IV 03/30/25 22:00 03/31/25 21:59 Vital Signs Vital Signs Date Time Temp Pulse Resp B/P (MAP) Pulse Ox O2 Delivery O2 Flow Rate FiO2 03/30/25 18:46 107 25 121/30 (60) 97 03/30/25 18:00 Room Air* 0 21 03/30/25 16:00 96.7 96.7 Labs/Diagnostic Data Labs Test 03/30/25 17:30 03/30/25 02:30 03/29/25 03:08 03/27/25 12:20 Range/Units POC Glucose 186 H 70-106 mg/dl White Blood Count 6.6 4.4-10.8 10^3/uL Red Blood Count 2.63 L 4.0-5.20 10^6/uL Hemoglobin 8.9 L 12.2-16.2 g/dL Hematocrit 26.5 L 36.0-46.0 % Mean Corpuscular Volume 100.5 H 80.0-100.0 fL Mean Corpuscular Hemoglobin 34.0 H 28.0-32.0 pg Mean Corpuscular Hemoglobin Concent 33.8 32.0-36.0 g/dL Red Cell Distribution Width 21.9 H 11.8-14.3 % Platelet Count 46 L 140-450 10^3/uL Mean Platelet Volume 12.7 H 6.9-10.8 fL Neutrophils (%) (Auto) 76.2 37.0-80.0 % Lymphocytes (%) (Auto) 12.3 10.0-50.0 % Monocytes (%) (Auto) 10.5 0.0-12.0 % Eosinophils (%) (Auto) 0.7 0.0-7.0 % Basophils (%) (Auto) 0.3 0.0-2.0 % Neutrophils # (Auto) 5.1 1.6-8.6 10 ^3/uL Lymphocytes # (Auto) 0.8 0.4-5.4 10 ^3/uL Monocytes # (Auto) 0.7 0-1.3 10 ^3/uL Eosinophils # (Auto) 0 0-0.8 10 ^3/uL Basophils # (Auto) 0 0-0.2 10 ^3/uL Nucleated Red Blood Cells 0.2 % Prothrombin Time 19.5 H 9.3-11.8 sec Prothrombin Time INR 1.97 H 0.9-1.15 Activated Partial Thromboplast Time 47.3 H 24.5-34.5 SEC Sodium Level 143 136-145 mmol/L Potassium Level 3.8 3.5-5.1 mmol/L Chloride Level 113 H 98-107 mmol/L Carbon Dioxide Level 19 L 20-31 mmol/L Anion Gap 11 5-15 Blood Urea Nitrogen 47 H 9-23 mg/dL Creatinine 1.06 H 0.550-1.02 mg/dL Glomerular Filtration Rate Calc 53 >90 mL/min BUN/Creatinine Ratio 44.3 H 10.0-20.0 Serum Glucose 188 H 74-106 mg/dL Calcium Level 9.4 8.7-10.4 mg/dL Phosphorus Level 2.0 L 2.4-5.1 mg/dL Magnesium Level 2.0 1.6-2.6 mg/dL Total Bilirubin 6.0 H 0.2-1.0 mg/dL Aspartate Amino Transferase (AST) 66 H 13-40 U/L Alanine Aminotransferase (ALT) 39 7-40 U/L Alkaline Phosphatase 93 46-116 U/L Total Protein 4.5 L 5.7-8.2 g/dL Albumin 1.6 L 3.2-4.8 g/dL Thyroid Stimulating Hormone (TSH) 0.90 0.55-4.78 uIU/mL Lactic Acid Level 3.0 *H 0.4-2.0 mmol/L Test 03/27/25 03:50 03/27/25 01:59 03/26/25 03:10 03/22/25 14:29 Range/Units Ammonia 37 H 11-32 umol/L Blood Gas Specimen Type Arterial Blood Gas Sample Site Right radial Blood Gas Patient Temperature 37.0 Arterial Blood Date Drawn [id number] Arterial Blood pH 7.445 7.350-7.450 Arterial Blood Partial Pressure CO2 25.6 L 32.0-45.0 mmHg Arterial Blood Partial Pressure O2 74.1 L 83.0-108.0 mmHg Arterial Blood HCO3 17.2 L 21.0-28.0 mmol/L Arterial Blood Oxygen Saturation 94.0 94.0-98.0 % Arterial Blood Base Excess -5.7 L -2.0-3.0 mmol/L Arterial Blood Oxyhemoglobin 93.2 L 94.0-98.0 % Arterial Blood Carboxyhemoglobin 0.6 0.5-1.5 % Arterial Blood Methemoglobin 0.2 0.0-1.5 % Syed Test Yes Blood Gas Total Hemoglobin 10.10 L 12.0-16.0 g/dL Blood Gas Liter Flow 2.00 Blood Gas Modality Nasal cannula FiO2 % 28.0 Creatine Kinase < 15 L 34-145 U/L Triglycerides Level 201 H < 150 mg/dL Venous Blood pH 7.432 H 7.320-7.430 Venous Blood pCO2 at Patient Temp 40.0 38.0-54.0 mmHg Venous Blood pO2 at Patient Temp 58.3 H 23.0-48.0 mmHg Venous Blood HCO3 26.1 22.0-29.0 mmol/L Venous Blood Base Excess 1.7 -2.0-3.0 mmol/L Specimen Drawn By pathology technician Test 03/20/25 21:55 03/17/25 04:54 03/16/25 15:48 03/15/25 05:00 Range/Units Blood Gas Spontaneous Rate 26 Blood Gas Critical Value Read Back Yes Blood Gas Notified Whom warren Mattehw Blood Gas Notified Time [id number] Blood Gas Not[facility] By [facility] Free Thyroxine (T4) Calculated 1.07 0.89-1.76 ng/dL Urine Color Yellow Yellow Urine Clarity Clear Clear Urine pH 6.5 5.0-9.0 Urine Specific [place] 1.011 1.001-1.035 Urine Protein Trace H Negative Urine Ketones Negative Negative Urine Blood Trace H Negative /uL Urine Nitrite Negative Negative Urine Bilirubin Negative Negative Urine Urobilinogen Normal Negative mg/dL Urine Leukocyte Esterase 1+ Negative /uL Urine RBC 3 0 - 4 /hpf Urine Microscopic WBC 11 H 0-5 /HPF Urine Squamous Epithelial Cells Few <5 /hpf Urine Bacteria None seen None Seen /hpf Urine Yeast (Budding) Few None Seen /hpf Urine Glucose 3+ H Normal mg/dL Differential Total Cells Counted 100.0 100 Neutrophils % (Manual) 51 37.0-80.0 Band Neutrophils % (Manual) 13 Lymphocytes % (Manual) 24 10.0-50.0 Monocytes % (Manual) 11 0-12 Eosinophils % (Manual) 1 0-7 Basophils % (Manual) 0 0.0-2.0 Metamyelocytes % (manual) 0 Myelocytes % (Manual) 0 Promyelocytes % (Manual) 0 Blast Cells % (Manual) 0 Reactive Lymphocytes 0 Platelet Estimate Decreased Macrocytosis Slight Test 03/14/25 06:05 03/09/25 04:27 03/08/25 12:06 03/02/25 03:10 Range/Units Smudge Cells 1 /100 WBC Large Platelets Few Anisocytosis (manual) Slight Schistocytes Few Total Triiodothyronine (TT3) 0.48 L 0.60-1.81 ng/mL Miscellaneous Referred Test (Rm Tmp Sent to [facility] Direct Bilirubin 2.0 H <0.3 mg/dL Lactate Dehydrogenase 280 H 120-246 U/L Test 02/28/25 10:34 02/28/25 07:35 02/28/25 06:02 02/24/25 02:46 Range/Units Blood Gas Pressure Support 7 Blood Gas PEEP or CPAP 5.0 Blood Gas Set Respiration Rate 18.0 Blood Gas Tidal Volume 450.0 Gastric Fluid pH 1 Gastric Fluid Occult Blood Negative Negative Stomatocytes Few Test 02/22/25 19:05 02/20/25 03:45 02/15/25 03:20 02/07/25 08:22 Range/Units Vancomycin Level Trough 14.7 H 5-10 ug/mL Vitamin B12 Level 2328 H 211-911 pg/mL Vitamin D 25-Hydroxy 36.4 30.0-100 ng/mL Random Vancomycin Level 15.1 H 5-10 ug/mL Blood Gas Comments Cpap ps 8/+5 Test 02/01/25 03:30 01/21/25 03:06 01/17/25 11:20 01/14/25 02:00 Range/Units Iron Level 30 L 50-170 ug/dL Total Iron Binding Capacity 163 L 250-425 ug/dL Percent Iron Saturation 18.4 15-50 % Ferritin 250.4 10-291 ng/mL Prealbumin < 3.0 L 10.0-40.0 md/dL B-Type Natriuretic Peptide 108.02 0-100 pg/mL Haptoglobin 160 42-346 mg/dL Fibrinogen 256 177-375 mg/dL D-Dimer, Quantitative 27.68 H 0.0-0.49 mg/L FEU Urine Amorphous Crystals Few None Seen /hpf Urine Creatinine 34.09 30.0-125.0 mg/dL Urine Protein/Creatinine Ratio 3.85 Urine Sodium 76 40-220 mmol/L Urine Total Protein 131.1 H 1-14 mg/dL Test 01/13/25 19:04 01/13/25 07:59 01/12/25 21:30 Range/Units Rheumatoid Factor 18.9 H <14.0 IU/mL Anti-Nuclear Antibody Screen Negative Negative Cytoplasmic ANCA (c-ANCA) Antibody <1:20 Neg:<1:20 titer Atypical p-ANCA <1:20 Neg:<1:20 titer Perinuclear ANCA (p-ANCA) Antibody <1:20 Neg:<1:20 titer Complement C3 112 82-167 mg/dL Complement C4 20 12-38 mg/dL Onel Cells Few Hemoglobin A1c 8.2 H <5.7 % A1C Cholesterol Level 81 < 200 mg/dL LDL Cholesterol 22 < 100 mg/dL HDL Cholesterol 14 L 40-59 mg/dL Lipase 21 12-53 U/L Microbiology Date/Time Source Procedure Growth Status 03/29/25 04:20 Blood Blood Culture - Preliminary NO GROWTH AFTER 24 HOURS OF INCUBATION. Resulted 03/20/25 08:12 Peritoneal Fluid Gram Stain - Final Complete 03/20/25 08:12 Peritoneal Fluid Anaerobic Culture - Final Complete 03/20/25 08:12 Aerobic Culture - Final Enterococcus faecium - VRE Complete 03/16/25 15:48 Urine - [place] Urine Culture - Final Yeast, not Zoe albicans Complete 02/25/25 11:48 Sputum Gram Stain - Final Complete 02/25/25 11:48 Sputum Respiratory Culture - Final Complete 01/13/25 17:10 Nose MRSA Screen - Final Complete Assessment PATIENT WAS SEEN N THE ICU WITH FAMILY PRESENT AT THE REQUEST OF DR FITZPATRICK, DR RAMESH AND FAMILY 80 YRS OLD UNABLE TO GIVE HISTORY MOST INFORMATION OBTAINED FROM RECORDS AND FAMILY AND NURSING STAFF S/P E LAP 4 TIMES FOR RECURRENT BOWEL PERORATION.SECONDARY TO POSSIBLE BOWEL OBSTRUCTION, ISCHEMIA. 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 NURSE AT BEDSIDE FAMILY AGREES WITH THE PLAN. Plan discussed with: Other MISTY RODRÍGUEZ MD Mar 30, 2025 21:15
--- NOTE | 2025-03-30 21:26 | DVHPN2 ---
Progress Note Date Seen: Mar 30, 2025 Has the PT tested + for MRSA If YES, has PT been informed?: No Medical Necessity Reason Pt with a Central, PICC or Fol: Yes The following are medically ne: PICC Line, Leach Catheter Reason for leach catheter: Strict I&O Objective vital signs Vital Sign Date Time Temp Pulse Resp B/P (MAP) Pulse Ox O2 Delivery O2 Flow Rate FiO2 03/30/25 18:46 107 25 121/30 (60) 97 03/30/25 18:00 Room Air* 0 21 03/30/25 16:00 96.7 96.7 Total Intake and Output 03/29/25 03/29/25 03/30/25 15:00 23:00 07:00 Intake Total 610 ml 836.25 ml 1052.00 ml Output Total 1325 ml 970 ml Balance 610 ml -488.75 ml 82.00 ml medications Current Medications Medications Dose Ordered Sig/Isaura Route Start Time Stop Time Status Last Admin Dose Admin Cefazolin Sodium 50 ml @ 100 mls/hr Q8HR IV 01/13/25 14:00 UNV Vasopressin 20 units/Sodium Chloride 100 ml @ 9 mls/hr [id number] IV 01/13/25 18:45 UNV Potassium Chloride 100 ml @ 50 mls/hr Q2H IV 01/16/25 12:45 01/16/25 18:44 UNV Vancomycin HCl 100 ml @ 100 mls/hr DAILY@1200 IV 01/20/25 12:00 UNV Amino Acids 0 ml @ 0 mls/hr PER PHARMACY IV 02/13/25 10:45 Ondansetron HCl 4 mg Q4HPRN PRN IV 02/21/25 09:30 03/12/25 17:08 Multi-Ingredient Ointment 1 applic DAILY TOP 02/23/25 10:00 03/30/25 09:40 Diagnostic Test (Pha) 1 strip Q4HR 02/26/25 16:00 Cancel Diagnostic Test (Pha) 1 strip IQ4HR 02/26/25 16:00 UNV Dextrose 50 ml UD PRN IV 02/26/25 16:00 UNV Pantoprazole Sodium 40 mg BID IV 03/08/25 22:00 03/30/25 09:39 Levothyroxine Sodium 50 mcg DAILY IV 03/09/25 10:00 03/30/25 09:40 Lidocaine 1 patch DAILY TOP 03/12/25 10:00 03/30/25 12:17 Acetaminophen 650 mg Q6HP PRN SD 03/18/25 10:00 03/26/25 08:08 Phenylephrine HCl 80 mg/Sodium Chloride 250 ml @ 7.5 mls/hr Q24H IV 03/23/25 22:45 UNV Hydromorphone HCl 0.5 mg Q3HP PRN IV 03/24/25 12:30 03/30/25 13:42 Daptomycin / Sodium Chloride 50 ml @ 100 mls/hr DAILY IV 03/25/25 10:00 UNV Daptomycin 250 mg/ Sodium Chloride 50 ml @ 100 mls/hr DAILY IV 03/25/25 10:00 03/30/25 10:24 Diagnostic Test (Pha) 1 strip Q6HR 03/26/25 12:00 03/30/25 17:49 Insulin Human Regular FOLLOW SLIDING SCALE Q6HR SC 03/26/25 12:00 03/30/25 17:48 Dextrose 50 ml UD IV 03/26/25 09:30 Metronidazole 100 ml @ 100 mls/hr Q8HR IV 03/26/25 22:00 03/30/25 13:41 Hydralazine HCl 10 mg Q6HP PRN IV 03/27/25 02:00 03/27/25 02:14 Lactulose 30 ml TID NG 03/27/25 06:00 03/30/25 13:41 Cefepime HCl 50 ml @ 12.5 mls/hr Q12HR IV 03/27/25 22:00 03/30/25 09:39 Fat Emulsion Intravenous 50 ml/ Potassium Acetate 30 meq/Potassium Phosphate 33 meq/ Magnesium Sulfate 8 meq/ Multivitamins 10 ml/Amino Acids/ Dextrose/Purified Water 1,584.5 ml @ 60 mls/hr [id number] IV 03/29/25 22:00 03/30/25 21:59 03/29/25 22:08 Lactated Ringer's 1,000 ml @ 50 mls/hr Q20H IV 03/29/25 16:15 03/30/25 10:25 Norepinephrine Bitartrate 250 ml @ 3.75 mls/hr Q24H IV 03/29/25 16:15 03/29/25 16:51 Fat Emulsion Intravenous 50 ml/ Potassium Acetate 20 meq/Potassium Phosphate 33 meq/ Magnesium Sulfate 4 meq/ Multivitamins 10 ml/Insulin Human Regular 7 units/ Amino Acids/ Dextrose/Purified Water 1,578.57 ml @ 60 mls/hr [id number] IV 03/30/25 22:00 03/31/25 21:59 laboratory and microbiology Laboratory Tests 03/30/25 02:30 Test 03/30/25 02:30 Range/Units Serum Glucose 188 H 74-106 mg/dL Microbiology Date/Time Source Procedure Growth Status 03/29/25 04:20 Blood Blood Culture - Preliminary NO GROWTH AFTER 24 HOURS OF INCUBATION. Resulted 03/20/25 08:12 Peritoneal Fluid Gram Stain - Final Complete 03/20/25 08:12 Peritoneal Fluid Anaerobic Culture - Final Complete 03/20/25 08:12 Aerobic Culture - Final Enterococcus faecium - VRE Complete 03/16/25 15:48 Urine - [place] Urine Culture - Final Yeast, not Zoe albicans Complete 02/25/25 11:48 Sputum Gram Stain - Final Complete 02/25/25 11:48 Sputum Respiratory Culture - Final Complete 01/13/25 17:10 Nose MRSA Screen - Final Complete Problem List/Assessment/Plan Problem List/Assessment/Plan REMAINS EXTUBATED AFEBRILE VSS ABD SOFT WOUND DRAINAGE SAME ILEOSTOMY FUNCTION BETTER DRAIN 150 CC YELLOW BROWN CBC WNL LFT TRENDING DOWN CONTINUE CLOSE OBSERVATION AND SUPPORTIVE CARE FAMILY AND NURSE AT BEDSIDE Plan discussed with: Other Dietary Evaluation Review Comments: Nutrition Recommendation: 1) TPN to meet at least 75% estimated needs within 7 days 2) Monitor NPO status, lab values, wt trend, I/O Expected Outcomes/Goals: To meet >75% estimated needs Lab values to improve Fu 2-3 days Is there a minimum of two crit: Yes CC Plasma Assessment Blood Product Administration S: [id number] MISTY RODRÍGUEZ MD Mar 30, 2025 21:26
[2025-03-30] MEDS: TPN PER PHARMACY IV NR (22:15)
[2025-03-31] VITALS (96 sets, daily range): BP systolic 89–186; BP diastolic 12–124; PULSE 91–121; RESP 13–33; TEMP 97.1–99; O2SAT 93–100
[2025-03-31 03:02] LABS: Hemoglobin 8.9 g/dL (12.2-16.2)
[2025-03-31 03:04] LABS: Hematocrit 26.3 % (36.0-46.0); Mean Corpuscular Hemoglobin 33.9 pg (28.0-32.0); Mean Corpuscular Volume 100.4 fL (80.0-100.0); Nucleated Red Blood Cells % 0.5 %
[2025-03-31 03:18] LABS: INR 2.18 (0.9-1.15); Partial Thromboplastin Time 51.5 SEC (24.5-34.5); Prothrombin Time 21.4 sec (9.3-11.8)
[2025-03-31 03:20] LABS: Alkaline Phosphatase 112 U/L (46-116); Anion Gap 10 (5-15); BUN/Creatinine Ratio 50.5 (10.0-20.0); Calcium 9.5 mg/dL (8.7-10.4); Magnesium 1.8 mg/dL (1.6-2.6); Potassium 4.1 mmol/L (3.5-5.1); Sodium 143 mmol/L (136-145)
[2025-03-31 03:21] LABS: Alanine Aminotransferase 42 U/L (7-40); Albumin 1.6 g/dL (3.2-4.8); Blood Urea Nitrogen 52 mg/dL (9-23); Carbon Dioxide 19 mmol/L (20-31); Chloride 114 mmol/L (98-107); Glucose 162 mg/dL (74-106); Total Protein 4.6 g/dL (5.7-8.2)
[2025-03-31 03:22] LABS: Bilirubin, Total 6.1 mg/dL (0.2-1.0)
--- NOTE | 2025-03-31 13:18 | DVHPN2 ---
Progress Note Date Seen: Mar 31, 2025 Has the PT tested + for MRSA If YES, has PT been informed?: No Medical Necessity Reason Pt with a Central, PICC or Fol: Yes The following are medically ne: PICC Line, Leach Catheter Reason for leach catheter: Strict I&O Objective vital signs Vital Sign Date Time Temp Pulse Resp B/P (MAP) Pulse Ox O2 Delivery O2 Flow Rate FiO2 03/31/25 11:07 103/40 03/31/25 09:15 114 32 99 03/31/25 08:01 97.1 97.1 03/31/25 08:00 Room Air* 0 21 Total Intake and Output 03/30/25 03/30/25 03/31/25 15:00 23:00 07:00 Intake Total 1248.75 ml 827.50 ml 1108.75 ml Output Total 975 ml 1320 ml Balance 1248.75 ml -147.50 ml -211.25 ml medications Current Medications Medications Dose Ordered Sig/Isaura Route Start Time Stop Time Status Last Admin Dose Admin Cefazolin Sodium 50 ml @ 100 mls/hr Q8HR IV 01/13/25 14:00 UNV Vasopressin 20 units/Sodium Chloride 100 ml @ 9 mls/hr Q11H7M IV 01/13/25 18:45 UNV Potassium Chloride 100 ml @ 50 mls/hr Q2H IV 01/16/25 12:45 01/16/25 18:44 UNV Vancomycin HCl 100 ml @ 100 mls/hr DAILY@1200 IV 01/20/25 12:00 UNV Amino Acids 0 ml @ 0 mls/hr PER PHARMACY IV 02/13/25 10:45 Ondansetron HCl 4 mg Q4HPRN PRN IV 02/21/25 09:30 03/12/25 17:08 4 MG Multi-Ingredient Ointment 1 applic DAILY TOP 02/23/25 10:00 03/31/25 09:48 1 APPLIC Diagnostic Test (Pha) 1 strip Q4HR 02/26/25 16:00 Cancel Diagnostic Test (Pha) 1 strip IQ4HR 02/26/25 16:00 UNV Dextrose 50 ml UD PRN IV 02/26/25 16:00 UNV Pantoprazole Sodium 40 mg BID IV 03/08/25 22:00 03/31/25 09:49 40 MG Lidocaine 1 patch DAILY TOP 03/12/25 10:00 03/31/25 09:48 1 PATCH Acetaminophen 650 mg Q6HP PRN CO 03/18/25 10:00 03/26/25 08:08 650 MG Phenylephrine HCl 80 mg/Sodium Chloride 250 ml @ 7.5 mls/hr Q24H IV 03/23/25 22:45 UNV Hydromorphone HCl 0.5 mg Q3HP PRN IV 03/24/25 12:30 03/31/25 08:32 0.5 MG Daptomycin / Sodium Chloride 50 ml @ 100 mls/hr DAILY IV 03/25/25 10:00 UNV Daptomycin 250 mg/ Sodium Chloride 50 ml @ 100 mls/hr DAILY IV 03/25/25 10:00 03/31/25 09:49 100 MLS/HR Diagnostic Test (Pha) 1 strip Q6HR 03/26/25 12:00 03/31/25 11:59 1 STRIP Insulin Human Regular FOLLOW SLIDING SCALE Q6HR SC 03/26/25 12:00 03/31/25 11:59 4 UNITS Dextrose 50 ml UD IV 03/26/25 09:30 Metronidazole 100 ml @ 100 mls/hr Q8HR IV 03/26/25 22:00 03/31/25 05:46 100 MLS/HR Hydralazine HCl 10 mg Q6HP PRN IV 03/27/25 02:00 03/27/25 02:14 10 MG Lactulose 30 ml TID NG 03/27/25 06:00 03/31/25 05:46 30 ML Cefepime HCl 50 ml @ 12.5 mls/hr Q12HR IV 03/27/25 22:00 03/31/25 09:49 12.5 MLS/HR Lactated Ringer's 1,000 ml @ 50 mls/hr Q20H IV 03/29/25 16:15 03/31/25 09:35 50 MLS/HR Norepinephrine Bitartrate 250 ml @ 3.75 mls/hr Q24H IV 03/29/25 16:15 03/31/25 11:07 7.5 MLS/HR Fat Emulsion Intravenous 50 ml/ Potassium Acetate 20 meq/Potassium Phosphate 33 meq/ Magnesium Sulfate 4 meq/ Multivitamins 10 ml/Insulin Human Regular 7 units/ Amino Acids/ Dextrose/Purified Water 1,578.57 ml @ 60 mls/hr [id number] IV 03/30/25 22:00 03/31/25 21:59 03/30/25 22:15 60 MLS/HR Fat Emulsion Intravenous 50 ml/ Potassium Acetate 20 meq/Potassium Phosphate 22 meq/ Magnesium Sulfate 12 meq/ Multivitamins 10 ml/Insulin Human Regular 7 units/ Amino Acids/ Dextrose/Purified Water 1,378.07 ml @ 57 mls/hr [id number] IV 03/31/25 22:00 04/01/25 21:59 laboratory and microbiology Laboratory Tests 03/31/25 02:44 Test 03/31/25 02:44 Range/Units Serum Glucose 162 H 74-106 mg/dL Problem List/Assessment/Plan Problem List/Assessment/Plan 01/14/25 afebrile, low dose BP support, received transfusion, I believe her decreased hematocrit is due to hemodilution. abdomen non distended, soft, wound clean and well approximated, drainage serous . remains intubated and sedated 01/16/25 ALKALOSIS, ABDOMEN NON DISTENDED, SOFT, DRAINAGE SEROUS, WOUND CLEAN AND WELL APPROXIMATED 01/17/25 improved, thrombocytopenia possibly made worse by Fluconazole,will DC, abdomen non distended, wound well approximated without infection, TATY drainage serous, CVP 6, good urine output. 01/18/25 abg reviewed, ,abdomen soft, non distended, TATY drainage clear serous, no bowel activity, febrile, urine output ok, continues with thrombocytopenia,pt and inr slightly elevated. prognosis grave. 01/20/25remains sedated on ventilator, abdomen soft, non distended, faint bowel sounds auscultated by nurse, wound clean and well approximated, TATY drainage clear serous. continues with thrombocytopenia, still behind on intravascular volume( BUN and Creatinine elevated), i would give more IV fluids and DC vancomycin. 01/25/25 afebrile, normotensive, wound clean and well approximated, TATY drainage serous, abdomen non distended, soft, gastrografin small bowel series shows non obstructed GI tract and no evidence of extravasation. It is OK to initiate enteric feedings. 01/29/25 16 DAYS POST OPERATIVELY TRHE TATY DRAINAGE WHICH HAD CONSISTENTLY BEEN SEROUS OR SERO SANGUINEOUS HAS BECOME "DIRTY" BROWNISH DISCOLORATION, HER WOUND IS CLEAN AND WELL APPROXIMATED AND HER ABDOMEN IS SOFT AND NON DISTENDED, CT SCAN SHOWS SO0ME FLUID AND ACCUMULATION OF FLUID AROUND THE SPLEEN, WILL REQUEST CT GUIDED ASPIRATION OF SAME, WILL ORDER IRRIGATION OF DRAINS. SHE SI AFEBRILE AND MAINTAINS NORMAL BLOOD PRESSURE, HER WBC IS NORMAL. 01/30/25 improved, awake, being weaned off vent. abdomen non distended, non tender, tayt drainage clearing with irrigation 02/02/25clinically unchanged, gastrografin small bowel series reported and normal, no extravasation reported, will order a follow ujp KUB for tomorrow AM 02/03/25 PATIENT HAD A GASTROGRAFIN SMALL BOWEL SERIES AND A FOLLOW UP KUB X RAYS NEITHER ONE OF WHICH SHOW EXTRAVASATION OF CONTRAST OR EVIDENCE OF FREE CONTRAST IN THE PERITONEAL CAVITY. THERE IS HOWEVER VISCOUS, BROWNISH FLUID DRAINING VIA BOTH TATY DRAINS AND THROUGH INFRAUMBILICAL PORTION OF MIDLINE WOUND, I REMOVED THE RICHIE FROM THE 3 CM SECTION OF THE INFRAUMBILICAL WOUND AND EVACUATED ABOUT 30 CC OF THIS FLUID AND INSTRUCTED THE NURSE TO PLACE A STOMA APPLIANCE ON THIS OPENING. 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 TODAY HER WBC IS ELEVATED, ABDOMEN CONTINUES TO BE NON DISTENDED, SOFT, BUT SHE DOES HAVE SLIGHT TENDERNESS IN THE PERIUMBILICAL AREA. I WILL TREAT THIS EXPECTANTLY FORM THE TIME BEING IN THE HOPE THAT THIS IS A "CONTROLLED" FISTULA AND HOPEFUL WILL HEAL SPONTANEOUSLY WITH NPO AND NUTRITIONAL SUPPORT. WILL WATCH CLOSELY, AFTER A FEW DAYS WILL GET A FISTULOGRAM TO PIN POINT THE ENTERIC ORIGIN OF THE FISTULIZATION. CONTINUE NGT SUCTION AND DRAIN IRRIGATION ORDERED02/05/25 02/05/25 remains sedated and intubated?ventilated, abdomen non distended soft, wound vac in place. TATY drainage serosanguineous 02/08/25 EXTUBATED, GOOD INSPIRATORY EFFORT, BP NML WITHOUT PRESSOR SUPPORT, ABDOMEN SOFT, NON DISTENDED, APPROPRIATELY TENDER, LABS REVIEWED. NO CHANGES TODAY OTHER THAN ALLOW ICE CHIPS PO. WILL ORDER GASTROGRAFIN SMALL BOWEL FOLLOWTHROUGH FOR Friday02/09/25 awake cooperative, wound vac in place, abdomen soft, non distended, appropriately tender, TATY drainage brownish discoloration, will irrigate, her WBC is normal and she is afebrile and normotensive. gastrografin tomorrow 02/10/25 AWAKE,COMFORTABLE, DENIES PAIN, ABDOMEN NON DISTENDED APPROPRIATELY TENDER, WOUND CLEAN AND WELL APPROXIMATED, DRAINS BEING IRRIGATED, LABS OK, GOOD URINE OUTPUT. "SURGICALLY" STABLE 02/11/25 feels well, passing flatus. is hungry, abdomen soft non distended, drainage clearing with irrigation, will wait for Gastrografin small bowel series to be completed, if normal will start po clear liquids 02/12/25 no nausea, change in TATY drainage colort, appears to contaIN, BILE, WILL DC po CLEAR LIQUIDS, CONTINUE ICE CGHIPS, SEND DRAin fluid for amylase and bilirubin, 02/13/25 states she feels well, abdomen non tender, non distended, wound clean and well approximated. drainage slightly clearer, keep npo for now, needs to resume TPN 02/14/25 PATIENT C/O BEING COLD BUT HAS NO PAIN, DRAINAGE SEEMS TO BE CLEARING, SHE HAD A BOWEL MOVEMENTS, ABDOMEN IS SOFT AND NON TENDER, NON DISTENDED, WOUND IS CLEAN AND WELL APPROXIMATED, WILL CONTINUE NPO STATUS AMYLASE ON TATY DRAINAGE FLUID IS GOING TO TAKE SEVERAL DAYS TO BECOME AVAILABLE. CONTINUE TPN 02/16/25 DENIES PAIN,STATES SHE FEELS BETTER, WOUND VAC IN PLACE, ABDOMEN NON TENDER,NON DISTENDED, TATY DRAINAGE SMALL TO MODERATE , WILL CONTINUE IRRIGATING DRAINS, WILL REQUEST GI CONSULT TO CONSIDER ENDOSCOPY. WBC NL,H/H STABLE , ALBUMIN STILL VERY LOW. , 02/17/25 CT SCAN REVIEWED, I SUSPECT THERE IS A SMALL LEAK FROM THE APPEARANCE OF IMAGING ALTHOUGH RADIOLOGIST RECOMMENDED REPEAT CT SCAN (ORDERED). THE DRAINAGE IS SMALL AMOUNT BUT NOW IT IS WITH AN ODOR, I WILL RE INSERT NGT TO ATTEMPT DECREASING THE GASTRIC CONTENTS. ABDOMEN IS SOFT, APPROPRIATELY TENDER, WOUND VAC IN PLACE 02/18/25 AFEBRILE, NORMOTENSIVE4, WBC NL, ALL IMAGING NEGATIVE, ANGIOGRAM SHOWS NO EVIDENCE OF HYPOPERFUSION, CONTRAST AND NON CONTRAST CT SCAN FAILED TO SHOW ANY EVIDENCE OF EXTRAVASATION, THE DRAINAGE CONTINUES TO BE BROWNISH DISCOLORED AND FOULS SMELLING, EXPLAINED TO PT'S SON THAT I HAVE NO EVIDENCE OF ANY GI LEAKAGE, WILL GET A GASTROGRAFIN ENEMA ON FRIDAY, I AM TRYING TO REFRAIN FROM OPERATING ON THE FRAIL ELDERLY PATIENT FOR THE THIRD TIME, SHE WILL NOT TOLERATE ANOTHYER OPERATION WELL. HER ALBUMIN REMAINS VERY LOW.WOUND VAC OK 02/19/25 feels ok,c/o being cold, abdomen soft. non distended, minimally tender, drainage seems to be little less, labs ok, continue as is 02/22/25 she feels well, abdomen is non tender, soft and non distended, drainage slightly less in volume, still discolored,gastrografin enema reviewed by me ( no radiologist/s interpretation available), she has not evacuated the gastrografin according to nurse. 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 will proceed with operation on 02/25/25 at 0715 AM. 02/27/25 SLIGHT IMPROVEMENT, ABDOMEN SOFT, NON DISTENDED, STOMA VIABLE WITHOUT FUNCTION, OK TO TRY GETTING OFF VENTILATOR. 03/01/25 extubated, conversant,oriented, abdomen non distended, appropriately tender, wound clean ans well approximated, drainage serous, stoma viable and with minimal liquid,no gas. will sips of water and ice po 03/02/25 awake comfortable, denies pain, abdomen appropriately tender, wound vac in place, afebrile, normotensive, drainage serosanguineous, cbc stable, stoma viable and with minimal output will resume irrigation of drain 03/03/25 awake ,cooperative, good inspiratory effort, afebrile, normotensive, wound covered with wound vac, drainage serous but cloudy(cultures ordered) abdomen non tender, stoma viable with minimal output. will order gastrografin ugi with small bowel follow throught for tomorow 03/04/25 vital signs stable, good urine output, wound vac ok, abdomen non tender. Xray pending 03/05/25 UGI X RAY SHOWS A NEW AREA OF LEAK,BEING ADEQUATELY DRAINED BY THE TATY DRAIN WHICH IS ADJACENT TO IT, HER ABDOMEN IS NON TENDER. WILL RESUME STRICT NPO STATUS, KEEP NGT TO CONTINUOUS SUCTION, I HAVE CALLED HER SON ILIANA AND EXPLAINED THAT PROBABLY THE INTESTINAL WALL IS NOT HEALING WHENEVER WE PLACE SUTURE AT SITES OF ANASTOMOSES. HER ABDOMEN IS NON TENDER, I WILL TREAT THIS CONSERVATIVELY FOR SOME TIME TO SEE IF THE LEAK MAY SHOW SOME EVIDENCE OF HEALING. YESTERDAY THERE WAS 500 CC OF TATY DRAINAGE. HER ALBUMIN LEVEL IS SLOWLY IMPROVING BUT STILL REMAINS LOW. IT APPEARS THAT THE SUTURES IN HER INTESTINAL ANASTOMOSES HOLD FOR ABOUT A WEEK AND THEN BREAK DOWN. (DRAINAGE TURNED FROM SEROSANGUINEOUS TO GREENISH YESTERDAY. 03/06/25 drainage slightly less in volume, still enteric contents abdomen softn and non tender, non distended. wound vac changed, wound healing, no chjanges for now. discussed with family. 03/08/29 feels better, no pain, abdomen soft and non tender, drainage minimally less, family at bedside, answered questions 03/09/25 son at bedside, patient feels "well" wants to eat, explained that we need to keep her intestine at rest' afebrile, normotensive, drainage less, abdomen non tender, wound vac in p-lace wbc normal today. h/h stable/ continue npo aqnd ngt there is stool in stoma appliance 03/13/25 SLOW IMPROBVEMENT,ABDOMEN NON TENDER, NON DISTENDED, SOME STOOL IN STOMA, DRAINAGE SLIGHTLY LESS VOLUME, CONTINUE IS, NEEDS MOR IV FLUYID (ORDERS GIVEN) 03/15/25 stable, having the NG tube clamped did not cause distress nor did it result in increase of the TATY drainage ,I have therefore removed the NG tube, she does need to remain NPO however, if there are no major changes in her condition in the next 48 hours she would be stable to transfer to a SNF on TPN, I will gladly make "house calls " on here at the facility . abdomen remains non distended, non tender, wound awaiting a wound vac but it is without evidence of infection, I have digitally probed the styoma which has inverted on itself, it is patent ancd without stenosis below the skin level. 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 drainage unchanged 03/22/25 doing well ,drainag clear, stoma viable and functioning, abdomen soft and appropriately tender, wound vac, labs reviewed. 03/25/25 until yeswterday she had minimal serous drainage in the TATY drain, this morning however tghe drainage is more voluminous and apperas to contain bile, her abdomen is non distended and appropriately tender, however i believe that the bowel has developed another "leak", I CALLED PATIENT SON AND EXPLAINED THE SITUATION TO HIM 03/26/25 transient hypotension responded to iv fluid bolus, drainage today is serosanguineous and there is some output of enteric contents through the ileostomy. have asked nurse to deflate the balloon on the leach catheter inside the ileostomy. abdomen non distended less tender than yesterday. she is feeling better than she did yesterday. I had a regine discussion with patient's son and told him that his mom will most likely not recover from this condition and if it was my mother I would give some consideration to taking her home on hospice. and I explained how hospice functions. He will discuss with family. 03/27/25 diastolic hypertension, abdomen soft, nopn disten ded, patient asleep, wound unchanged, DRAINAGE CLOUDY, VOLUME UNCHANGED, ILEOSTOMY OUTPUT IMPROVED, AWAITING FAMILY'S DECISION RE HOSPICE DISCHARGE 03/28/25 clinically unchanged, wound dressing dry, taty drainage brownish, moderate, ileostomy functioning, nurse informed me that family would like a second opinion,I have called to see patient and talk with family. so far no decision on hospice 03/29/25 slowly deteriorating, now with liver failure and jaundice, BUN and creatinine also increasing. abdomen examination unchanged. ACCORDING TO NURSE THERE IS A FAMILY CONFERENCE WITH SCHEDULED FOR THIS AFTERNOON. I will be available by phone if needed. Dr Rivera apparently saw pt yesterday, awaiting his report of second opinion 03/30/25 patient's grandaughter at bedside, patient's condition unchanged, all questions answered 03/31/25 patient arousable but somnolent, abdomen non distended appears non tender, stoma output liquid and 700 cc yeaterda, TATY drainage unganched, wound drainage unchanged, will remove NGT to attempt to make her more comfortable, prognosis poor... l Plan discussed with: Patient, Other Dietary Evaluation Review Comments: Nutrition Recommendation: 1) TPN to meet at least 75% estimated needs within 7 days 2) Monitor NPO status, lab values, wt trend, I/O Expected Outcomes/Goals: To meet >75% estimated needs Lab values to improve Fu 2-3 days Is there a minimum of two crit: Yes MELVA RAMESH MD Mar 31, 2025 13:18
--- NOTE | 2025-03-31 14:55 | DVHPN2 ---
Progress Note Date Seen: Mar 31, 2025 Has the PT tested + for MRSA If YES, has PT been informed?: No Medical Necessity Reason Pt with a Central, PICC or Fol: Yes The following are medically ne: PICC Line, Leach Catheter Reason for leach catheter: Strict I&O Objective vital signs Vital Sign Date Time Temp Pulse Resp B/P (MAP) Pulse Ox O2 Delivery O2 Flow Rate FiO2 03/31/25 14:00 24 99 Room Air* 0 21 03/31/25 14:00 117 03/31/25 13:45 129/33 (65) 03/31/25 12:01 97.2 97.2 Total Intake and Output 03/30/25 03/30/25 03/31/25 15:00 23:00 07:00 Intake Total 1248.75 ml 827.50 ml 1108.75 ml Output Total 975 ml 1320 ml Balance 1248.75 ml -147.50 ml -211.25 ml medications Current Medications Medications Dose Ordered Sig/Isaura Route Start Time Stop Time Status Last Admin Dose Admin Cefazolin Sodium 50 ml @ 100 mls/hr Q8HR IV 01/13/25 14:00 UNV Vasopressin 20 units/Sodium Chloride 100 ml @ 9 mls/hr Q11H7M IV 01/13/25 18:45 UNV Potassium Chloride 100 ml @ 50 mls/hr Q2H IV 01/16/25 12:45 01/16/25 18:44 UNV Vancomycin HCl 100 ml @ 100 mls/hr DAILY@1200 IV 01/20/25 12:00 UNV Amino Acids 0 ml @ 0 mls/hr PER PHARMACY IV 02/13/25 10:45 Ondansetron HCl 4 mg Q4HPRN PRN IV 02/21/25 09:30 03/12/25 17:08 4 MG Multi-Ingredient Ointment 1 applic DAILY TOP 02/23/25 10:00 03/31/25 09:48 1 APPLIC Diagnostic Test (Pha) 1 strip Q4HR 02/26/25 16:00 Cancel Diagnostic Test (Pha) 1 strip IQ4HR 02/26/25 16:00 UNV Dextrose 50 ml UD PRN IV 02/26/25 16:00 UNV Pantoprazole Sodium 40 mg BID IV 03/08/25 22:00 03/31/25 09:49 40 MG Lidocaine 1 patch DAILY TOP 03/12/25 10:00 03/31/25 09:48 1 PATCH Acetaminophen 650 mg Q6HP PRN OR 03/18/25 10:00 03/26/25 08:08 650 MG Phenylephrine HCl 80 mg/Sodium Chloride 250 ml @ 7.5 mls/hr Q24H IV 03/23/25 22:45 UNV Hydromorphone HCl 0.5 mg Q3HP PRN IV 03/24/25 12:30 03/31/25 08:32 0.5 MG Daptomycin / Sodium Chloride 50 ml @ 100 mls/hr DAILY IV 03/25/25 10:00 UNV Daptomycin 250 mg/ Sodium Chloride 50 ml @ 100 mls/hr DAILY IV 03/25/25 10:00 03/31/25 09:49 100 MLS/HR Diagnostic Test (Pha) 1 strip Q6HR 03/26/25 12:00 03/31/25 11:59 1 STRIP Insulin Human Regular FOLLOW SLIDING SCALE Q6HR SC 03/26/25 12:00 03/31/25 11:59 4 UNITS Dextrose 50 ml UD IV 03/26/25 09:30 Metronidazole 100 ml @ 100 mls/hr Q8HR IV 03/26/25 22:00 03/31/25 13:42 100 MLS/HR Hydralazine HCl 10 mg Q6HP PRN IV 03/27/25 02:00 03/27/25 02:14 10 MG Lactulose 30 ml TID NG 03/27/25 06:00 03/31/25 05:46 30 ML Cefepime HCl 50 ml @ 12.5 mls/hr Q12HR IV 03/27/25 22:00 03/31/25 09:49 12.5 MLS/HR Lactated Ringer's 1,000 ml @ 50 mls/hr Q20H IV 03/29/25 16:15 03/31/25 09:35 50 MLS/HR Norepinephrine Bitartrate 250 ml @ 3.75 mls/hr Q24H IV 03/29/25 16:15 03/31/25 11:07 7.5 MLS/HR Fat Emulsion Intravenous 50 ml/ Potassium Acetate 20 meq/Potassium Phosphate 33 meq/ Magnesium Sulfate 4 meq/ Multivitamins 10 ml/Insulin Human Regular 7 units/ Amino Acids/ Dextrose/Purified Water 1,578.57 ml @ 60 mls/hr [id number] IV 03/30/25 22:00 03/31/25 21:59 03/30/25 22:15 60 MLS/HR Fat Emulsion Intravenous 50 ml/ Potassium Acetate 20 meq/Potassium Phosphate 22 meq/ Magnesium Sulfate 12 meq/ Multivitamins 10 ml/Insulin Human Regular 7 units/ Amino Acids/ Dextrose/Purified Water 1,378.07 ml @ 57 mls/hr [id number] IV 03/31/25 22:00 04/01/25 21:59 laboratory and microbiology Laboratory Tests 03/31/25 02:44 Test 03/31/25 02:44 Range/Units Serum Glucose 162 H 74-106 mg/dL Microbiology Date/Time Source Procedure Growth Status 03/30/25 03:00 Urine - [place] Urine Culture - Preliminary Resulted 03/29/25 04:20 Blood Blood Culture - Preliminary NO GROWTH AFTER 48 HOURS OF INCUBATION. Resulted 03/20/25 08:12 Peritoneal Fluid Gram Stain - Final Complete 03/20/25 08:12 Peritoneal Fluid Anaerobic Culture - Final Complete 03/20/25 08:12 Aerobic Culture - Final Enterococcus faecium - VRE Complete 02/25/25 11:48 Sputum Gram Stain - Final Complete 02/25/25 11:48 Sputum Respiratory Culture - Final Complete 01/13/25 17:10 Nose MRSA Screen - Final Complete Problem List/Assessment/Plan Problem List/Assessment/Plan REMAINS EXTUBATED AFEBRILE HEMODYNAMICALLY LABILE ON VASOPRESSOR ABD SOFT WOUND DRAINAGE SAME ILEOSTOMY FUNCTION BETTER DRAIN 100 CC YELLOW BROWN CBC WNL LFT MILD ELEVATION CONTINUE CLOSE OBSERVATION AND SUPPORTIVE CARE FAMILY AND NURSE AT BEDSIDE Plan discussed with: Other Dietary Evaluation Review Comments: Nutrition Recommendation: 1) TPN to meet at least 75% estimated needs within 7 days 2) Monitor NPO status, lab values, wt trend, I/O Expected Outcomes/Goals: To meet >75% estimated needs Lab values to improve Fu 2-3 days Is there a minimum of two crit: Yes CC Plasma Assessment Blood Product Administration S: [id number] MISTY RODRÍGUEZ MD Mar 31, 2025 14:55
--- NOTE | 2025-03-31 17:48 | DVHPNRES ---
Progress Note Date Seen: Mar 31, 2025 Resident Creating Document: CARMEL SNYDER RESIDENT Medical Necessity Reason Pt with a Central, PICC or Fol: Yes The following are medically ne: PICC Line, Leach Catheter Reason for leach catheter: Strict I&O Subjective Review of Systems Ms. Hays is a 80 year old female with PMHx of hypertension, AFib on eliquis, type 2 diabetes mellitus, and chronic kidney disease, who presented to [facility] with chief complaint of constipation and abdominal pain. The patient referred intermittent minimal pain the previous 4 months, which progressively worsened described as described the abdominal pain is sharp constant pain, diffuse in nature, 01/19, radiates to the back and associated with constipation. Initial abdominal CT without IV contrast demonstrated free intraperitoneal likely from visceral perforation of the left abdominal small bowel loops, circumferential wall thickening of left abdominal small bowel loop with more focal local pool of gas adjacent to this thickened small bowel loop. The patient was found to have peritonitis secondary to perforated diverticulitis, for which she underwent an exploratory laparotomy on 01/13/2025 with resection of perforated bowel and formation of enteroenterostomy. Patient was to found to be in septic shock requiring intubation and vasopressor support. Due to abnormal CARMEN drain output, the patient has required multiple follow up exploratory laparotomies on 02/04/2025, 02/25/2025, 03/20/2025, and 03/24/2025, with subsequent resections of affect bowel. Previous medical history: Hypertension, AFib on eliquis (per record the patient was not taking this medication), Type 2 Diabetes mellitus, CKD Previous surgical history: C - section, hernia repair Social: Patient lives with family. Denies previous drug, tobacco, or alcohol use 03/31/2025: Patient seen in ICU today. Continues on Levophed 4 mcg/min, without supplemental oxygen. Per her nurse, Jayme, they tried to lower Levophed however patient became hypotensive. She continues to have intermittent periods of altered mentation. CARMEN and Ostomy output have both increased, continue to draink dark brown/red fluid. She is afebrile, MAP maintained on Levophed, and tachycardic. CBC is stable. LFTs are rising. Due to new TSH of 0.9 we will be holding Levothyroxine for the time being. Patient has poor prognosis. 03/30/2025: Patient seen in ICU today. Currently on Levophed 4 mcg/min, without supplemental oxygen. Per her nurse, Jayem, states that overnight blood pressure was persistently low, for which they had to increase Levophed from 2 mcg to 4 mcg. Pain remains difficult to control on dilaudid. On evaluation today, the patient is more confused, is able to confirm her name and date of , unable to answer further questions. She continues o be jaundiced, CARMEN output is still high, ostomy bag draining less, continues to drain dark brownish/red fluid. She is afebrile, MAP has improved on Levophed, mostly tachycardic. CBC is stable, showing minor improvement in platelets, renal function slightly improved, total bilirubin continues to downtrend. Blood cultures growing bacteroides, which is covered by flagyl. Second set of blood cultures are currently negative at 24 hours of incubation. We will continue to monitor. 03/29/2025: Patient seen in the ICU today. Currently continues without supplemental oxygen. Currently on Levophed. Per her nurse, Li, overnight had increase of drain output, pain was more difficult to control with Dilaudid, and she continues to be more confused. She is has periods more alertness, however remains confused. She was jaundiced, CARMEN and ostomy output are high draining brown red fluid. Chest x-ray from yesterday showed no changes from previous exams. She has remained afebrile since Friday, has been hypotensive for the majority of the day requiring initiation of 250 cc bolus of NS, maintenance LR, and reinitiation of Levophed. HB is stable, platelets slightly increased to 45. Total bilirubin continued to down trend today value of 6.8. Family discussed case with Dr. Rivera today who states from a surgical standpoint patient is not a candidate for further surgery, they will continue to what the drains and their output and we will lower TPN due to liver failure. Objective vital signs Vital Sign Date Time Temp Pulse Resp B/P (MAP) Pulse Ox O2 Delivery O2 Flow Rate FiO2 03/31/25 16:31 107 27 92/57 (69) 97 03/31/25 16:02 98.2 98.2 03/31/25 16:00 Room Air* 0 21 Total Intake and Output 03/30/25 03/30/25 03/31/25 15:00 23:00 07:00 Intake Total 1248.75 ml 827.50 ml 1108.75 ml Output Total 975 ml 1320 ml Balance 1248.75 ml -147.50 ml -211.25 ml medications Current Medications Medications Dose Ordered Sig/Isaura Route Start Time Stop Time Status Last Admin Dose Admin Cefazolin Sodium 50 ml @ 100 mls/hr Q8HR IV 01/13/25 14:00 UNV Vasopressin 20 units/Sodium Chloride 100 ml @ 9 mls/hr Q11H7M IV 01/13/25 18:45 UNV Potassium Chloride 100 ml @ 50 mls/hr Q2H IV 01/16/25 12:45 01/16/25 18:44 UNV Vancomycin HCl 100 ml @ 100 mls/hr DAILY@1200 IV 01/20/25 12:00 UNV Amino Acids 0 ml @ 0 mls/hr PER PHARMACY IV 02/13/25 10:45 Ondansetron HCl 4 mg Q4HPRN PRN IV 02/21/25 09:30 03/12/25 17:08 4 MG Multi-Ingredient Ointment 1 applic DAILY TOP 02/23/25 10:00 03/31/25 09:48 1 APPLIC Diagnostic Test (Pha) 1 strip Q4HR 02/26/25 16:00 Cancel Diagnostic Test (Pha) 1 strip IQ4HR 02/26/25 16:00 UNV Dextrose 50 ml UD PRN IV 02/26/25 16:00 UNV Pantoprazole Sodium 40 mg BID IV 03/08/25 22:00 03/31/25 09:49 40 MG Lidocaine 1 patch DAILY TOP 03/12/25 10:00 03/31/25 09:48 1 PATCH Acetaminophen 650 mg Q6HP PRN ID 03/18/25 10:00 03/26/25 08:08 650 MG Phenylephrine HCl 80 mg/Sodium Chloride 250 ml @ 7.5 mls/hr Q24H IV 03/23/25 22:45 UNV Hydromorphone HCl 0.5 mg Q3HP PRN IV 03/24/25 12:30 03/31/25 15:26 0.5 MG Daptomycin / Sodium Chloride 50 ml @ 100 mls/hr DAILY IV 03/25/25 10:00 UNV Daptomycin 250 mg/ Sodium Chloride 50 ml @ 100 mls/hr DAILY IV 03/25/25 10:00 03/31/25 09:49 100 MLS/HR Diagnostic Test (Pha) 1 strip Q6HR 03/26/25 12:00 03/31/25 11:59 1 STRIP Insulin Human Regular FOLLOW SLIDING SCALE Q6HR SC 03/26/25 12:00 03/31/25 17:42 4 UNITS Dextrose 50 ml UD IV 03/26/25 09:30 Metronidazole 100 ml @ 100 mls/hr Q8HR IV 03/26/25 22:00 03/31/25 13:42 100 MLS/HR Hydralazine HCl 10 mg Q6HP PRN IV 03/27/25 02:00 03/27/25 02:14 10 MG Lactulose 30 ml TID NG 03/27/25 06:00 03/31/25 05:46 30 ML Cefepime HCl 50 ml @ 12.5 mls/hr Q12HR IV 03/27/25 22:00 03/31/25 09:49 12.5 MLS/HR Lactated Ringer's 1,000 ml @ 50 mls/hr Q20H IV 03/29/25 16:15 03/31/25 09:35 50 MLS/HR Norepinephrine Bitartrate 250 ml @ 3.75 mls/hr Q24H IV 03/29/25 16:15 03/31/25 11:07 7.5 MLS/HR Fat Emulsion Intravenous 50 ml/ Potassium Acetate 20 meq/Potassium Phosphate 33 meq/ Magnesium Sulfate 4 meq/ Multivitamins 10 ml/Insulin Human Regular 7 units/ Amino Acids/ Dextrose/Purified Water 1,578.57 ml @ 60 mls/hr [id number] IV 03/30/25 22:00 03/31/25 21:59 03/30/25 22:15 60 MLS/HR Fat Emulsion Intravenous 50 ml/ Potassium Acetate 20 meq/Potassium Phosphate 22 meq/ Magnesium Sulfate 12 meq/ Multivitamins 10 ml/Insulin Human Regular 7 units/ Amino Acids/ Dextrose/Purified Water 1,378.07 ml @ 57 mls/hr [id number] IV 03/31/25 22:00 04/01/25 21:59 Examination General: AOx2, jaundiced HEENT: Normocephalic, atraumatic, normal reactive pupils, EOM intact, icteric sclera, dry mucus membranes Respiratory/pulmonary: Bilateral chest expansion, no pain on palpation of chest wall, clear lungs bilaterally, vesicular murmurs present in almost all lung sutton, no crackles Cardiovascular: Normal RRR, normal S1 and S2, no murmurs Abdomen: Abdomen nondistended, presence of ostomy bags in mid right to lower quadrant, CARMEN drain located on left abdomen, active bowel sounds, soft, pain to palpation in areas surrounding ostomy, no palpable masses. : Presence of Leach Extremities: No deformities, there is no peripheral edema present at the lower extremities, normal pulses Skin: Jaundiced, as mentioned above, presence of dry eschars on back of bilateral heels Neurological: Intact cranial nerves with no focal neurologic deficits laboratory and microbiology Laboratory Tests 03/31/25 02:44 Test 03/31/25 02:44 Range/Units Serum Glucose 162 H 74-106 mg/dL Microbiology Date/Time Source Procedure Growth Status 03/30/25 03:00 Urine - Leach [place] Urine Culture - Preliminary Resulted 03/29/25 04:20 Blood Blood Culture - Preliminary NO GROWTH AFTER 48 HOURS OF INCUBATION. Resulted 03/20/25 08:12 Peritoneal Fluid Gram Stain - Final Complete 03/20/25 08:12 Peritoneal Fluid Anaerobic Culture - Final Complete 03/20/25 08:12 Aerobic Culture - Final Enterococcus faecium - VRE Complete 02/25/25 11:48 Sputum Gram Stain - Final Complete 02/25/25 11:48 Sputum Respiratory Culture - Final Complete 01/13/25 17:10 Nose MRSA Screen - Final Complete Problem List/Assessment/Plan Problem List/Assessment/Plan Neurology #Chronic Ischemic Changes and Cortical Atrophy - Head CT: 01/28/2025: Chronic sequelae of microangiopathy and atrophic cortical focal volume loss. Cardiovascular #Septic Shock secondary to peritonitis due to hollow viscus perforation #Chronic diastolic heart failure without exacerbation - Echocardiogram: 01/15/2025: Normal LVEF 65%, mild LVH, mild LV diastolic dysfunction #Paroxysmal Afib - Currently not on therapeutic Lovenox due to low hemoglobin - CHADsVasc 5 # Hypertension - Monitor - Hydralazine 10 mg IV PRN Respiratory # Acute hypoxic respiratory failure secondary to bilateral pleural effusion/ pneumonia # Ventilator -Intubated () -Extubated (02/07/2025) -Reintubation (02/25/2025) -Extubation ( 02/28/2025) -Due to observed increased work of breathing, chest xray was ordered which shows no significant change from the previous study. Stable support devices. Persistent heart failure pattern. -Sputum culture 01/29: Presumptive Zoe albicans, Sputum culture from 02/25: negative GI # Acute bacterial peritonitis due to small bowel perforation secondary to perforated diverticulitis, very poor prognosis -CT abdomen: 01/12/2025: Free intraperitoneal air likely from visceral perforation of a left abdominal small bowel loop. Circumferential wall thickening of a left abdominal small bowel loop with more focal locules of gas adjacent to this thickened small bowel loop . There may be sinus tracts or a fistulous network between adjacent small bowel loops in the left abdomen with image numbers above. Mild ascites and diffuse soft tissue stranding of the mesentery # Transaminitis secondary to shock # Anion gap metabolic acidosis due to bowel ischemia and lactic acidosis # Elevated bilirubin secondary to TPN - Exploratory laparotomy 01/13/2025: Resection of perforated bowel enteroenterostomy - Exploratory laparotomy 02/04/2025: Resection near previous resection - Exploratory laparotomy 02/25/2025: Resection of distal ileum - Exploratory laparotomy 03/20/2025:Very extensive lysis of adhesions, repair of 3 ischemic perforations of small bowel, evacuation of multiple interloop abscesses, revision of ileostomy. - Exploratory laparotomy 03/24/2025: - IR-guided pigtail drain placed; drained 50 cc purulent fluid. - CARMEN drains placed in 4 quadrants initially and now patient has only 1 CARMEN drain - Peritoneal fluid (01/13): E. coli, Klebsiella pneumoniae (sensitive to meropenem). - Peritoneal fluid (02/17): E. coli, Stenotrophomonas maltophilia. - Aspirate culture: (03/02): VRE - Aspirate culture :(04/02) : VRE - Blood cultures (03/26): Bacteroides caccae - Blood cultures (03/28): Negative at 24 hours - Micafungin (03/17), Daptomycin (03/24) cefepime, Flagyl added (03/26) - Levofloxacin, Flagyl (02/03); Vancomycin and Meropenem (); Meropenem (); Vancomycin (), Bactrim stopped (03/08)8) - Per surgery: The patient is currently not a candidate for continued surgical intervention, they will continue to watch the drains and will lower rate of TPN - Patient is NPO, currently with NG tube #Acute Liver Failure - TPN will be decreased # Peptic ulcer prophylaxis -Pantoprazole 40 mg IV daily # Leach catheter Nephrology -#ISRRAEL likely hemodynamically mediated/VMN - Resolved - Monitor renal function - Avoid nephrotoxix drugs #Hypokalemia - Monitor - Replete as needed #Hyperkalemia - Monitor #Hyponatremia, resolved #Hypophosphatemia - Replete as needed Infectious disease # Septic shock secondary to acute bacterial peritonitis due to small bowel perforation secondary to perforated diverticulitis - Exploratory laparotomy 01/13/2025: Resection of perforated bowel enteroenterostomy - Exploratory laparotomy 02/04/2025: Resection near previous resection - Exploratory laparotomy 02/25/2025: Resection of distal ileum - Exploratory laparotomy 03/20/2025:Very extensive lysis of adhesions, repair of 3 ischemic perforations of small bowel, evacuation of multiple interloop abscesses, revision of ileostomy. - Exploratory laparotomy 03/24/2025: - IR-guided pigtail drain placed; drained 50 cc purulent fluid. - CARMEN drains placed in 4 quadrants initially and now patient has only 1 CARMEN drain - Peritoneal fluid (01/13): E. coli, Klebsiella pneumoniae (sensitive to meropenem). - Peritoneal fluid (02/17): E. coli, Stenotrophomonas maltophilia. - Aspirate culture: (03/02): VRE - Aspirate culture :(04/02) : VRE - Blood cultures (03/26): Bacteroides caccae - Blood cultures (03/28): Negative at 24 hours - Micafungin (03/17), Daptomycin (03/24) cefepime, Flagyl added (03/26) - Levofloxacin, Flagyl (02/03); Vancomycin and Meropenem (); Meropenem (); Vancomycin (), Bactrim stopped (03/08) - Levophed 4 mcg restarted (03/29) Hem/onc #Acute on chronic anemia - Last PRBC transfusion on 02/28/2025 #Severe thrombocytopenia HIT #Acute DVT of right upper extremity - Venous duplex US of right upper extremity: partial thrombus in right internal jugular ad cephalic vein - Left upper extremity Venous Duplex US: thrombus in left brachial vein and bilateral cephalic veins - Hold anticoagulation at this time Endocrine # Hypothyroidism - TSH previously 42 --> 0.90 - Levothyroxine 50 mcg, held at this time # Type 2 Diabetes Mellitus, HbA1c: 8.1 - Sliding scale insulin Nutrition # Severe protein malnutrition # TPN Lines Airway: Intubated on 01/14, extubated on 02/07, reintubated on 02/25 extubated 02/28 Vascular Access: PICC line placed in right upper thigh on 01/26. Drips: Levophed 4 mcg/min Urinary: Leach catheter placed on 01/14, exchanged on 02/14. Exchanged on 03/17. CARMEN drains in 1 quadrant. Ostomy bag in lower right abdominal quadrant PUD prophylaxis: Protonix DVT prophylaxis: Held at this time due to anemia Physical therapy ordered Critical care time 64 minutes excluding procedure. Code status discussed greater than 20 minutes: Full CODE STATUS. Family at bedside explained about the condition of the patient Plan discussed with Dr. Self Plan discussed with: Son, Other (Nurse) My Orders My Orders Orders - CARMEL SNYDER RESIDENT Procedure Category Date Status Time Complete Blood Count LAB 04/01/25 Verified 04:00 Comprehensive LAB 04/01/25 Verified Metabolic Panel 04:00 Dietary Evaluation Review Comments: Nutrition Recommendation: 1) TPN to meet at least 75% estimated needs within 7 days 2) Monitor NPO status, lab values, wt trend, I/O Expected Outcomes/Goals: To meet >75% estimated needs Lab values to improve Fu 2-3 days Is there a minimum of two crit: Yes CC Plasma Assessment Blood Product Administration S: [id number] Date of Service: Mar 31, 2025 Billing Provider: ZBIGNIEW SELF MD Common Visit Codes: [id number] CARE 30-74 MIN CARMEL SNYDER Mar 31, 2025 17:48 ZBIGNIEW SELF MD Apr 02, 2025 12:35
--- NOTE | 2025-03-31 22:23 | DVHPN2 ---
Consult Progress Note Objective vital signs Vital Sign Date Time Temp Pulse Resp B/P (MAP) Pulse Ox O2 Delivery O2 Flow Rate FiO2 03/31/25 20:14 112 23 121/29 03/31/25 18:30 99 03/31/25 18:00 Room Air* 0 21 03/31/25 16:02 98.2 98.2 Total Intake and Output 03/30/25 03/30/25 03/31/25 15:00 23:00 07:00 Intake Total 1248.75 ml 827.50 ml 1108.75 ml Output Total 975 ml 1320 ml Balance 1248.75 ml -147.50 ml -211.25 ml medications Current Medications Medications Dose Ordered Sig/Isaura Route Start Time Stop Time Status Last Admin Dose Admin Cefazolin Sodium 50 ml @ 100 mls/hr Q8HR IV 01/13/25 14:00 UNV Vasopressin 20 units/Sodium Chloride 100 ml @ 9 mls/hr Q11H7M IV 01/13/25 18:45 UNV Potassium Chloride 100 ml @ 50 mls/hr Q2H IV 01/16/25 12:45 01/16/25 18:44 UNV Vancomycin HCl 100 ml @ 100 mls/hr DAILY@1200 IV 01/20/25 12:00 UNV Amino Acids 0 ml @ 0 mls/hr PER PHARMACY IV 02/13/25 10:45 Ondansetron HCl 4 mg Q4HPRN PRN IV 02/21/25 09:30 03/12/25 17:08 4 MG Multi-Ingredient Ointment 1 applic DAILY TOP 02/23/25 10:00 03/31/25 09:48 1 APPLIC Diagnostic Test (Pha) 1 strip Q4HR 02/26/25 16:00 Cancel Diagnostic Test (Pha) 1 strip IQ4HR 02/26/25 16:00 UNV Dextrose 50 ml UD PRN IV 02/26/25 16:00 UNV Pantoprazole Sodium 40 mg BID IV 03/08/25 22:00 03/31/25 09:49 40 MG Lidocaine 1 patch DAILY TOP 03/12/25 10:00 03/31/25 09:48 1 PATCH Acetaminophen 650 mg Q6HP PRN CA 03/18/25 10:00 03/26/25 08:08 650 MG Phenylephrine HCl 80 mg/Sodium Chloride 250 ml @ 7.5 mls/hr Q24H IV 03/23/25 22:45 UNV Hydromorphone HCl 0.5 mg Q3HP PRN IV 03/24/25 12:30 03/31/25 19:44 0.5 MG Daptomycin / Sodium Chloride 50 ml @ 100 mls/hr DAILY IV 03/25/25 10:00 UNV Daptomycin 250 mg/ Sodium Chloride 50 ml @ 100 mls/hr DAILY IV 03/25/25 10:00 03/31/25 09:49 100 MLS/HR Diagnostic Test (Pha) 1 strip Q6HR 03/26/25 12:00 03/31/25 17:54 1 STRIP Insulin Human Regular FOLLOW SLIDING SCALE Q6HR SC 03/26/25 12:00 03/31/25 17:42 4 UNITS Dextrose 50 ml UD IV 03/26/25 09:30 Metronidazole 100 ml @ 100 mls/hr Q8HR IV 03/26/25 22:00 03/31/25 21:14 100 MLS/HR Hydralazine HCl 10 mg Q6HP PRN IV 03/27/25 02:00 03/27/25 02:14 10 MG Lactulose 30 ml TID NG 03/27/25 06:00 03/31/25 05:46 30 ML Cefepime HCl 50 ml @ 12.5 mls/hr Q12HR IV 03/27/25 22:00 03/31/25 09:49 12.5 MLS/HR Lactated Ringer's 1,000 ml @ 50 mls/hr Q20H IV 03/29/25 16:15 03/31/25 09:35 50 MLS/HR Norepinephrine Bitartrate 250 ml @ 3.75 mls/hr Q24H IV 03/29/25 16:15 03/31/25 11:07 7.5 MLS/HR Fat Emulsion Intravenous 50 ml/ Potassium Acetate 20 meq/Potassium Phosphate 22 meq/ Magnesium Sulfate 12 meq/ Multivitamins 10 ml/Insulin Human Regular 7 units/ Amino Acids/ Dextrose/Purified Water 1,378.07 ml @ 57 mls/hr [id number] IV 03/31/25 22:00 04/01/25 21:59 laboratory and microbiology Laboratory Tests 03/31/25 02:44 Test 03/31/25 02:44 Range/Units Serum Glucose 162 H 74-106 mg/dL Problem List/Assessment/Plan Problem List/Assessment/Plan ASSESSMENT AND PLAN: ID Problem List: -Perforated small bowel with persistent leak; intra-abdominal sepsis; status post multiple exploratory laparotomies with adhesiolysis and enteroenterostomies; CARMEN drains in place -Septic shock; acute hypoxic respiratory failure -Acute kidney injury (ISRRAEL) with acute tubular necrosis (ATN) improved -Transaminitis likely ischemic hepatitis improving -Thrombocytopenia (worsened ~01/19 while on vancomycin/fluconazole) -Diabetes mellitus -On apixaban (Eliquis) for last 2 weeks indication unclear -Past surgical history: section; hernia repair Assessment This is a 10 y.o. female with diabetes and prior and hernia repair, who presented with 4 days of sharp lower abdominal pain. Initial ED evaluation notable for CT A/P demonstrating free intraperitoneal air and small bowel inflammatory changes concerning for perforated viscus with mild ascites and mesenteric stranding. She underwent an exploratory laparotomy on 01/13 with lysis of adhesions, small bowel enteroenterostomy, and placement of two Mendel- Steele drains; peritoneal cultures at that time grew Escherichia coli and Klebsiella pneumoniae (both ceftriaxone susceptible). Postoperatively she required norepinephrine (Levophed) and broad-spectrum antibiotics. Course complicated by recurrent sepsis and suspected enterocutaneous/peritoneal contamination, requiring re-exploration on 02/03 with evacuation of copious intra-abdominal infection/abscesses and revision of anastomosis; intraoperative cultures reportedly not obtained. A drain sample dated 01/28 grew Stenotrophomonas ([id number] susceptible). Ongoing respiratory issues prompted empiric vancomycin, later discontinued when sputum grew only Nancy albicans. A third operation on 02/25 for persistent feculent leakage and peritonitis showed a distal ileal perforation proximal to adhesional obstruction; this was resected with primary anastomosis, and further adhesiolysis performed. Upper GI series on 03/04 demonstrates contrast extravasation from proximal small bowel (likely left jejunum) near a surgical drain, consistent with a persistent leak that appears to be adequately drained clinically. She has been afebrile since 03/03, is extubated to 2 L NC, hemodynamically supported on low-dose norepinephrine, and clinically stable abdominally (nontender). LFTs that had peaked during ischemic episodes are improving. Renal function has improved from admission. Cultures/culture interpretation: Earlier peritoneal cultures with E. coli and Klebsiella; drain fluid with Stenotrophomonas (01/28) and subsequent peritoneal/aspirate samples showing E. coli and vancomycin-resistant Enterococcus (VRE) on 03/02; one of four blood culture bottles (03/07) positive for Staphylococcus epidermidis, felt to be contaminant. Given the persistent bowel leak with external drainage and the timing/source of cultures, current drain cultures are likely colonization and may not represent true invasive pathogens. Antimicrobial course (per transcript): initial piperacillin-tazobactam (Zosyn) + vancomycin through 01/19; vancomycin stopped for suspected contribution to thrombocytopenia; courses including meropenem and micafungin through 01/31; then levofloxacin + metronidazole + micafungin through 02/03; meropenem continued thereafter with vancomycin re-trial for presumed pneumonia (later stopped by 02/21 after Nancy-only sputum); micafungin added/continued; trimethoprim- sulfamethoxazole (Bactrim) started 02/21 for Stenotrophomonas coverage; transcript also notes meropenem and rifampin continued until today. 03/16: sp NGT removal, stoma and drain with output. off levophed 03/18: new levophed needs, intermittently febrile, drain culture w e.coli and nancy: meropenem and micafungin restarted Plan: - fungal infection: - unclear if systemic non-candidemia yeast growth. - likely colonization and less likely systemic infection, but will check blood cultures - continue micafungin for now, if levophed need worsens, consider adding voriconazole empirically. -Intra-abdominal sepsis with persistent small bowel leak: -Source control: continue to ensure CARMEN drains are functioning; avoid routine re- culturing from drains as results likely represent colonization and may mislead management. -Imaging monitoring: recommend repeat CT abd pelvis pelvis prior to discharge to ensure bowel leak is contained. US of abdomen if unable to get CT -Antibiotics: -De-escalate broad coverage toward enteric pathogens (E. coli/Klebsiella) and away from agents targeting colonizers. -No ongoing coverage for Stenotrophomonas is required at this time. -No coverage for VRE is recommended; -stop Meropenem. can descalate to Ceftriaxone -Antifungal: continue micafungin for now, however suspect this two may be a colonizer -Duration: continue until leak is resolved or clearly contained with clinical improvement. -Transition to oral therapy when patient can tolerate and when clinically appropriate. -Respiratory: extubated to 2 L NC; supportive care; chest radiograph with persistent interstitial opacities, left basilar consolidation, small pleural effusions monitor clinically. -Renal: ISRRAEL/ATN improved (Cr now ~0.99); continue renal dosing of antimicrobials as indicated; monitor BMP. -Hepatic: transaminases improving from prior ischemic hepatitis; trend LFTs. -Hematology: platelet count currently ~118 K; monitor CBC. -Anticoagulation: on apixaban (Eliquis) for unclear indication per history; reconcile indication and risk/benefit with primary/surgical teams in context of recent surgeries/leak. -Nutrition/NG: continue NG suction per surgery; nutrition per surgical/ICU teams. -Lines/Drains: maintain CARMEN drains; monitor output and character; avoid routine drain cultures. -Follow-up: ID will continue to follow clinically; adjust therapy as new data emerge. Authorized and Performed by: sheron pedraza Total critical care time: Approximately 56 minutes Due to a high probability of clinically significant, life threatening deterioration, the patient required my highest level of preparedness to intervene emergently and I personally spent this critical care time directly and personally managing the patient. This critical care time included obtaining a history; examining the patient; pulse oximetry; ordering and review of studies; arranging urgent treatment with development of a management plan; evaluation of patient's response to treatment; frequent reassessment; and, discussions with other providers. This critical care time was performed to assess and manage the high probability of imminent, life-threatening deterioration that could result in multi-organ failure. It was exclusive of separately billable procedures and treating other patients and teaching time. \ Physical Exam: General: NAD Neck: Supple. No masses. HEENT: PERRL. Normal lids and conjunctiva. Moist mucous membranes. Oropharynx without lesions, exudates or excessive erythema. Normal appearance of the external aspects of the nose and ears. Heart: Regular rhythm, normal rate. No murmur. No lower extremity edema. Lungs: Normal respiratory effort. Clear to auscultation bilaterally. No wheezes. No crackles. Abdomen: Soft. Non-tender. Non-distended. No masses or abdominal hernia. drain and stoma functional . Msk: No digital cyanosis. Normal strength and tone in all 4 limbs Skin: Warm and dry, no rashes. Neuro: Alert. No facial droop or slurred speech. Extra-ocular movements intact. Sensation intact to soft touch in all 4 limbs. Psych: Appropriate mood. Full affect. Oriented to person, place, time, and situation. Dietary Evaluation Review Comments: Nutrition Recommendation: 1) TPN to meet at least 75% estimated needs within 7 days 2) Monitor NPO status, lab values, wt trend, I/O Expected Outcomes/Goals: To meet >75% estimated needs Lab values to improve Fu 2-3 days Is there a minimum of two crit: Yes CC Plasma Assessment Blood Product Administration S: [id number] SHERON PEDRAZA MD Mar 31, 2025 22:23
[2025-04-01] VITALS (114 sets, daily range): BP systolic 60–222; BP diastolic 21–202; PULSE 99–124; RESP 15–49; TEMP 97–99.2; O2SAT 93–98
[2025-04-01 03:58] LABS: Hematocrit 26.7 % (36.0-46.0); Hemoglobin 8.6 g/dL (12.2-16.2)
[2025-04-01 04:01] LABS: Mean Corpuscular Hemoglobin 33.8 pg (28.0-32.0); Mean Corpuscular Volume 104.9 fL (80.0-100.0); Nucleated Red Blood Cells % 0.8 %
[2025-04-01 07:53] LABS: Anion Gap 11 (5-15); BUN/Creatinine Ratio 43.3 (10.0-20.0); Calcium 9.7 mg/dL (8.7-10.4); Magnesium 1.7 mg/dL (1.6-2.6); Potassium 4.3 mmol/L (3.5-5.1); Sodium 142 mmol/L (136-145)
[2025-04-01 07:56] LABS: Alanine Aminotransferase 46 U/L (7-40); Albumin 1.7 g/dL (3.2-4.8); Alkaline Phosphatase 124 U/L (46-116); Bilirubin, Total 6.6 mg/dL (0.2-1.0); Blood Urea Nitrogen 52 mg/dL (9-23); Carbon Dioxide 17 mmol/L (20-31); Chloride 114 mmol/L (98-107); Glucose 150 mg/dL (74-106); Total Protein 4.8 g/dL (5.7-8.2)
[2025-04-01] MEDS: MAGNESIUM SULFATE 1GM/100ML 100 ML IV ONE ×2 (09:00→09:30)
--- NOTE | 2025-04-01 09:29 | DVHPN2 ---
Subjective Date Seen: Apr 01, 2025 Post op day Post op day: 12 Patient reports: Other Objective Vitals Vital Sign Date Time Temp Pulse Resp B/P (MAP) Pulse Ox O2 Delivery O2 Flow Rate FiO2 04/01/25 09:15 118 28 86/41 (56) 96 04/01/25 08:15 98.4 98.4 04/01/25 08:00 Room Air* 0 21 Total Intake and Output 03/31/25 03/31/25 04/01/25 15:00 23:00 07:00 Intake Total 1090.0 ml 967.0 ml 934.75 ml Output Total 1000 ml 770 ml Balance 1090.0 ml -33.0 ml 164.75 ml Medications Current Medications Medications Dose Ordered Sig/Isaura Route Start Time Stop Time Status Last Admin Dose Admin Cefazolin Sodium 50 ml @ 100 mls/hr Q8HR IV 01/13/25 14:00 UNV Vasopressin 20 units/Sodium Chloride 100 ml @ 9 mls/hr Q11H7M IV 01/13/25 18:45 UNV Potassium Chloride 100 ml @ 50 mls/hr Q2H IV 01/16/25 12:45 01/16/25 18:44 UNV Vancomycin HCl 100 ml @ 100 mls/hr DAILY@1200 IV 01/20/25 12:00 UNV Amino Acids 0 ml @ 0 mls/hr PER PHARMACY IV 02/13/25 10:45 Ondansetron HCl 4 mg Q4HPRN PRN IV 02/21/25 09:30 03/12/25 17:08 4 MG Multi-Ingredient Ointment 1 applic DAILY TOP 02/23/25 10:00 04/01/25 07:35 1 APPLIC Diagnostic Test (Pha) 1 strip Q4HR 02/26/25 16:00 Cancel Diagnostic Test (Pha) 1 strip IQ4HR 02/26/25 16:00 UNV Dextrose 50 ml UD PRN IV 02/26/25 16:00 UNV Pantoprazole Sodium 40 mg BID IV 03/08/25 22:00 04/01/25 07:34 40 MG Lidocaine 1 patch DAILY TOP 03/12/25 10:00 04/01/25 07:35 1 PATCH Acetaminophen 650 mg Q6HP PRN DE 03/18/25 10:00 03/26/25 08:08 650 MG Phenylephrine HCl 80 mg/Sodium Chloride 250 ml @ 7.5 mls/hr Q24H IV 03/23/25 22:45 UNV Hydromorphone HCl 0.5 mg Q3HP PRN IV 03/24/25 12:30 03/31/25 23:49 0.5 MG Daptomycin / Sodium Chloride 50 ml @ 100 mls/hr DAILY IV 03/25/25 10:00 UNV Daptomycin 250 mg/ Sodium Chloride 50 ml @ 100 mls/hr DAILY IV 03/25/25 10:00 04/01/25 07:35 100 MLS/HR Diagnostic Test (Pha) 1 strip Q6HR 03/26/25 12:00 04/01/25 05:50 1 STRIP Insulin Human Regular FOLLOW SLIDING SCALE Q6HR SC 03/26/25 12:00 04/01/25 05:50 2 UNITS Dextrose 50 ml UD IV 03/26/25 09:30 Metronidazole 100 ml @ 100 mls/hr Q8HR IV 03/26/25 22:00 04/01/25 05:44 100 MLS/HR Hydralazine HCl 10 mg Q6HP PRN IV 03/27/25 02:00 03/27/25 02:14 10 MG Lactulose 30 ml TID NG 03/27/25 06:00 03/31/25 05:46 30 ML Cefepime HCl 50 ml @ 12.5 mls/hr Q12HR IV 03/27/25 22:00 04/01/25 07:35 12.5 MLS/HR Lactated Ringer's 1,000 ml @ 50 mls/hr Q20H IV 03/29/25 16:15 04/01/25 05:56 50 MLS/HR Norepinephrine Bitartrate 250 ml @ 3.75 mls/hr Q24H IV 03/29/25 16:15 03/31/25 11:07 7.5 MLS/HR Fat Emulsion Intravenous 50 ml/ Potassium Acetate 20 meq/Potassium Phosphate 22 meq/ Magnesium Sulfate 12 meq/ Multivitamins 10 ml/Insulin Human Regular 7 units/ Amino Acids/ Dextrose/Purified Water 1,378.07 ml @ 57 mls/hr [id number] IV 03/31/25 22:00 04/01/25 21:59 03/31/25 22:21 57 MLS/HR Fat Emulsion Intravenous 50 ml/ Sodium Acetate 20 meq/Sodium Phosphate 10 meq/ Potassium Acetate 30 meq/Magnesium Sulfate 16 meq/ Multivitamins 10 ml/Insulin Human Regular 7 units/ Amino Acids/ Dextrose/Purified Water 1,391.57 ml @ 57 mls/hr [id number] IV 04/01/25 22:00 04/02/25 21:59 General: Normal Head/Eyes: Normal ENT: Normal Neck: Normal Lungs: Normal, Normal inspection Cardiovascular: Normal, Regular rate and rhythm Abdominal: Normal, Soft Labs and Microbiology Laboratory Tests 04/01/25 06:28 04/01/25 03:28 Test 04/01/25 06:28 Range/Units Serum Glucose 150 H 74-106 mg/dL Ass/Plan Labs and/or images reviewed: Labs reviewed by me, Image(s) reviewed by me Problem List ASSESSMENT AND PLAN: ID Problem List: -Perforated small bowel with persistent leak; intra-abdominal sepsis; status post multiple exploratory laparotomies with adhesiolysis and enteroenterostomies; CARMEN drains in place -Septic shock; acute hypoxic respiratory failure -Acute kidney injury (ISRRAEL) with acute tubular necrosis (ATN) improved -Transaminitis likely ischemic hepatitis improving -Thrombocytopenia (worsened ~01/19 while on vancomycin/fluconazole) -Diabetes mellitus -On apixaban (Eliquis) for last 2 weeks indication unclear -Past surgical history: section; hernia repair Assessment This is a 10 y.o. female with diabetes and prior and hernia repair, who presented with 4 days of sharp lower abdominal pain. Initial ED evaluation notable for CT A/P demonstrating free intraperitoneal air and small bowel inflammatory changes concerning for perforated viscus with mild ascites and mesenteric stranding. She underwent an exploratory laparotomy on 01/13 with lysis of adhesions, small bowel enteroenterostomy, and placement of two Mendel- Steele drains; peritoneal cultures at that time grew Escherichia coli and Klebsiella pneumoniae (both ceftriaxone susceptible). Postoperatively she required norepinephrine (Levophed) and broad-spectrum antibiotics. Course complicated by recurrent sepsis and suspected enterocutaneous/peritoneal contamination, requiring re-exploration on 02/03 with evacuation of copious intra-abdominal infection/abscesses and revision of anastomosis; intraoperative cultures reportedly not obtained. A drain sample dated 01/28 grew Stenotrophomonas ([id number] susceptible). Ongoing respiratory issues prompted empiric vancomycin, later discontinued when sputum grew only Nancy albicans. A third operation on 02/25 for persistent feculent leakage and peritonitis showed a distal ileal perforation proximal to adhesional obstruction; this was resected with primary anastomosis, and further adhesiolysis performed. Upper GI series on 03/04 demonstrates contrast extravasation from proximal small bowel (likely left jejunum) near a surgical drain, consistent with a persistent leak that appears to be adequately drained clinically. She has been afebrile since 03/03, is extubated to 2 L NC, hemodynamically supported on low-dose norepinephrine, and clinically stable abdominally (nontender). LFTs that had peaked during ischemic episodes are improving. Renal function has improved from admission. Cultures/culture interpretation: Earlier peritoneal cultures with E. coli and Klebsiella; drain fluid with Stenotrophomonas (01/28) and subsequent peritoneal/aspirate samples showing E. coli and vancomycin-resistant Enterococcus (VRE) on 03/02; one of four blood culture bottles (03/07) positive for Staphylococcus epidermidis, felt to be contaminant. Given the persistent bowel leak with external drainage and the timing/source of cultures, current drain cultures are likely colonization and may not represent true invasive pathogens. Antimicrobial course (per transcript): initial piperacillin-tazobactam (Zosyn) + vancomycin through 01/19; vancomycin stopped for suspected contribution to thrombocytopenia; courses including meropenem and micafungin through 01/31; then levofloxacin + metronidazole + micafungin through 02/03; meropenem continued thereafter with vancomycin re-trial for presumed pneumonia (later stopped by 02/21 after Nancy-only sputum); micafungin added/continued; trimethoprim- sulfamethoxazole (Bactrim) started 02/21 for Stenotrophomonas coverage; transcript also notes meropenem and rifampin continued until today. 03/16: sp NGT removal, stoma and drain with output. off levophed 03/18: new levophed needs, intermittently febrile, drain culture w e.coli and nancy: meropenem and micafungin restarted 03/20: sp * Exploratory laparotomy. * Very extensive lysis of adhesions. * Repair of 3 ischemic perforations of small bowel. * Evacuation of multiple interloop abscesses. * Revision of ileostomy. 03/24: VRE growth on operative culture 03/26: persistent drain output 03/27: rising lactic acid, ceftriaxone switched to cefepime, anaerobic growth on blood culture 03/28: micafungin stopped, ileostomy with good output, on tpn, off pressors, bacteroides on blood culture 03/30: repeat blood culture without growth Plan: - anaerobic bacteremia: - repeat blood culture, continue flagyl -Intra-abdominal sepsis with persistent small bowel leak: -Source control: continue to ensure CARMEN drains are functioning; avoid routine re- culturing from drains as results likely represent colonization and may mislead management. -sp 03/20 exlap, repair of bowel leak -will fu on pending operative cultures -Antibiotics: - continue daptomycin for VRE coverage -De-escalate broad coverage toward enteric pathogens (E. coli/Klebsiella) and away from agents targeting colonizers. -continue cefepime -Antifungal: continue micafungin for now, however suspect this two may be a colonizer -Duration: continue until leak is resolved or clearly contained with clinical improvement. -Transition to oral therapy when patient can tolerate and when clinically appropriate. -Respiratory: extubated to 2 L NC; supportive care; chest radiograph with persistent interstitial opacities, left basilar consolidation, small pleural effusions monitor clinically. -Renal: ISRRAEL/ATN improved (Cr now ~0.99); continue renal dosing of antimicrobials as indicated; monitor BMP. -Hepatic: transaminases improving from prior ischemic hepatitis; trend LFTs. -Hematology: platelet count currently ~118 K; monitor CBC. -Anticoagulation: on apixaban (Eliquis) for unclear indication per history; reconcile indication and risk/benefit with primary/surgical teams in context of recent surgeries/leak. -Nutrition/NG: continue NG suction per surgery; nutrition per surgical/ICU teams. -Lines/Drains: maintain CARMEN drains; monitor output and character; avoid routine drain cultures. -Follow-up: ID will continue to follow clinically; adjust therapy as new data emerge. Authorized and Performed by: sheron pedraza Total critical care time: Approximately 56 minutes Due to a high probability of clinically significant, life threatening deterioration, the patient required my highest level of preparedness to intervene emergently and I personally spent this critical care time directly and personally managing the patient. This critical care time included obtaining a history; examining the patient; pulse oximetry; ordering and review of studies; arranging urgent treatment with development of a management plan; evaluation of patient's response to treatment; frequent reassessment; and, discussions with other providers. This critical care time was performed to assess and manage the high probability of imminent, life-threatening deterioration that could result in multi-organ failure. It was exclusive of separately billable procedures and treating other patients and teaching time. \ Physical Exam: General: NAD Neck: Supple. No masses. HEENT: PERRL. Normal lids and conjunctiva. Moist mucous membranes. Oropharynx without lesions, exudates or excessive erythema. Normal appearance of the external aspects of the nose and ears. Heart: Regular rhythm, normal rate. No murmur. No lower extremity edema. Lungs: Normal respiratory effort. Clear to auscultation bilaterally. No wheezes. No crackles. Abdomen: Soft. Non-tender. Non-distended. No masses or abdominal hernia. drain and stoma functional . Msk: No digital cyanosis. Normal strength and tone in all 4 limbs Skin: Warm and dry, no rashes. Neuro: Alert. No facial droop or slurred speech. Extra-ocular movements intact. Sensation intact to soft touch in all 4 limbs. Psych: Appropriate mood. Full affect. Oriented to person, place, time, and situation. Assessment/Plan 01/19/25 s/p Exploratory laparotomy, lysis of adhesions, extensive lavage, resection of perforated small bowel, enteroenterostomy. unchanged from yesterday abdomen soft, non distended, CARMEN drainage clear serous, no bowel activity, febrile, urine output ok, continues with thrombocytopenia, Plan: continue current treatment discussed with Dr. Christy 01/21/2025 s/p Exploratory laparotomy, lysis of adhesions, extensive lavage, resection of perforated small bowel, enteroenterostomy. abdomen soft, non distended, CARMEN drainage clear serous, no bowel activity, urine output ok, platelet count improved albumin low off pressors blood culture , gram negative rods Plan: continue meropenem antibiotics albumin x3 discussed with Dr. Christy 01/22/2025 s/p Exploratory laparotomy, lysis of adhesions, extensive lavage, resection of perforated small bowel, enteroenterostomy. abdomen soft, non distended, CARMEN drainage clear serous, no bowel activity, urine output ok, platelet count improved blood culture , gram positive rods labs reviewed Plan: continue with current treatment discussed with Dr. Christy 01/24/2025 s/p Exploratory laparotomy, lysis of adhesions, extensive lavage, resection of perforated small bowel, enteroenterostomy. abdomen soft, non distended, CARMEN drainage clear serous, no bowel activity, urine output ok, platelet count improved labs reviewed Plan: small bowel series discussed with Dr. Christy 01/31/2025 s/p Exploratory laparotomy, lysis of adhesions, extensive lavage, resection of perforated small bowel, enteroenterostomy. abdomen soft, non distended, CARMEN drainage brownish, urine output ok labs reviewed Plan: small bowel series on Friday discussed with Dr. Christy 02/06/2025 Surgery: Exploratory laparotomy, lysis of adhesions, evacuation of pelvic and abdominal infection, resection of proximal jejunum, ileostomy, and jejunostomy. Post-Op Day: 2 Notes and labs were reviewed. Hemoglobin was 6.6 this morning, and a blood transfusion is currently being administered. Physical Exam: - Currently intubated and receiving fentanyl without other sedation. - Abdomen is soft and nondistended. - Minimal serosanguineous fluid is noted in the CARMEN drains. - The wound VAC has minimal sanguineous output. The wound is clean. Plan: - Continue current treatment. - Discussed case with Dr. Christy no changes to the plan of care at this time. 02/26/25 labs reviewed patient intubated , sedated abdomen soft, non distended wound vac stoma ok drain serous fluid Plan: continue current treatment 02/28/25 - Patient is intubated and responds to stimuli. no changes from yesterday : Abdomen is soft and non-distended. Stoma is pink. The wound is clean, dry, and intact with a wound vac in place. CARMEN drains have serous fluid output. - Investigations with results: Hemoglobin is low. Plan: - Treatment planned: Receiving one unit of packed red blood cells. CPAP today. Continue current treatment plan 03/10/2025 patient states feeling well : Abdomen is soft and non-distended. fecal matter in stoma bag . The wound is clean, dry, and intact with a wound vac in place. CARMEN drains have brown fluid. -WBC normal Plan: continue current treatment 03/11/25 patient states feeling well : Abdomen is soft and non-distended. fecal matter in stoma bag . The wound is clean, dry, and intact with a wound vac in place. CARMEN drain brown fluid. output over night 60cc -WBC normal Plan: continue current treatment 03/14/2025 patient states feeling well : Abdomen is soft and non-distended. fecal matter in stoma bag CARMEN drain out put decreased brown fluid. labs notes reviewed, discussed with Dr. Christy Plan: clamp NG tube NPO continue TPN 03/17/25 - Abdomen is soft, non-distended, and non-tender. - Surgical wound is clean, dry, and intact. - Mendel-Steele (CARMEN) drain output was 80 mL of brown fluid overnight. The output this morning was 10 mL. Assessment: - Plan: - To remain (NPO) and continue on total parenteral nutrition (TPN). - Cleared for transfer to a group home facility per Dr. Christy. Please notify Dr. Christy of location patient will be transferred to. - Dr. Christy will make a house call in two weeks. 03/21/25 Complaints: - Reports abdominal pain this morning. Physical Exam: - Abdomen: Soft, non-tender. - Wounds: Abdominal wound with wound vac in place, with minimal drainage noted. CARMEN drain with serosanguinous fluid output. Assessment: - Acidosis, corrected (pH was 7.1). - Febrile overnight. - Post-transfusion status: Received one unit of blood overnight. - Currently on vasopressin. - Abdominal pain, for which pain medication was administered this morning. Plan: - Continue pain management. - Remain NPO. - Maintain NG tube on low continuous suction. - Wound vac to remain in place. 03/24/25 abdomen soft, non distended wound vac, wound clean dry CARMEN drain dark red colored fluid some stoma output Plan: continue current treatment 04/01/25 obtunded, progressively getting worse , discussed with Dr. Christy DC NGT , may have ice chips Prognosis: Good, Poor Plan discussed with Dr. Christy Visit Coding Surgery Date of Service if different f: Apr 01, 2025 Billing Provider: MELVA CHRISTY MD Surgery Visit Codes: [id number] INP/OBS CARE(HIGH) [employer] Apr 01, 2025 09:29
--- NOTE | 2025-04-01 11:34 | DVHPNRES ---
Progress Note Date Seen: Apr 01, 2025 Resident Creating Document: CARMEL SNYDER RESIDENT Medical Necessity Reason Pt with a Central, PICC or Fol: Yes The following are medically ne: PICC Line, Leach Catheter Reason for leach catheter: Strict I&O Subjective Review of Systems Ms. Hays is a 80 year old female with PMHx of hypertension, AFib on eliquis, type 2 diabetes mellitus, and chronic kidney disease, who presented to [facility] with chief complaint of constipation and abdominal pain. The patient referred intermittent minimal pain the previous 4 months, which progressively worsened described as described the abdominal pain is sharp constant pain, diffuse in nature, 01/19, radiates to the back and associated with constipation. Initial abdominal CT without IV contrast demonstrated free intraperitoneal likely from visceral perforation of the left abdominal small bowel loops, circumferential wall thickening of left abdominal small bowel loop with more focal local pool of gas adjacent to this thickened small bowel loop. The patient was found to have peritonitis secondary to perforated diverticulitis, for which she underwent an exploratory laparotomy on 01/13/2025 with resection of perforated bowel and formation of enteroenterostomy. Patient was to found to be in septic shock requiring intubation and vasopressor support. Due to abnormal CARMEN drain output, the patient has required multiple follow up exploratory laparotomies on 02/04/2025, 02/25/2025, 03/20/2025, and 03/24/2025, with subsequent resections of affect bowel. Previous medical history: Hypertension, AFib on eliquis (per record the patient was not taking this medication), Type 2 Diabetes mellitus, CKD Previous surgical history: C - section, hernia repair Social: Patient lives with family. Denies previous drug, tobacco, or alcohol use 04/01/2025: Patient seen in ICU today. Levophed had to be increased to 8 mcg/min today, was able to be brought down to 6 towards the evening. Mentation remains the same. She is afebrile, MAP is maintained on Levophed, and she remains tachypneic and tachycardic. LFTs continue to rise. NG tube was removed by Dr. Christy for comfort. Her son and POA, has decided on home hospice, however, at this time she is too unstable to transfer home. We have discussed the patient's continued deteriorating state and poor prognosis with her son. He states he wishes for her to remain full code at this time while he discusses with the family. 03/31/2025: Patient seen in ICU today. Continues on Levophed 4 mcg/min, without supplemental oxygen. Per her nurse, Jayme, they tried to lower Levophed however patient became hypotensive. She continues to have intermittent periods of altered mentation. CARMEN and Ostomy output have both increased, continue to draink dark brown/red fluid. She is afebrile, MAP maintained on Levophed, and tachycardic. CBC is stable. LFTs are rising. Due to new TSH of 0.9 we will be holding Levothyroxine for the time being. Patient has poor prognosis. 03/30/2025: Patient seen in ICU today. Currently on Levophed 4 mcg/min, without supplemental oxygen. Per her nurse, Jayme, states that overnight blood pressure was persistently low, for which they had to increase Levophed from 2 mcg to 4 mcg. Pain remains difficult to control on dilaudid. On evaluation today, the patient is more confused, is able to confirm her name and date of , unable to answer further questions. She continues o be jaundiced, CARMEN output is still high, ostomy bag draining less, continues to drain dark brownish/red fluid. She is afebrile, MAP has improved on Levophed, mostly tachycardic. CBC is stable, showing minor improvement in platelets, renal function slightly improved, total bilirubin continues to downtrend. Blood cultures growing bacteroides, which is covered by flagyl. Second set of blood cultures are currently negative at 24 hours of incubation. We will continue to monitor. 03/29/2025: Patient seen in the ICU today. Currently continues without supplemental oxygen. Currently on Levophed. Per her nurse, Li, overnight had increase of drain output, pain was more difficult to control with Dilaudid, and she continues to be more confused. She is has periods more alertness, however remains confused. She was jaundiced, CARMEN and ostomy output are high draining brown red fluid. Chest x-ray from yesterday showed no changes from previous exams. She has remained afebrile since Friday, has been hypotensive for the majority of the day requiring initiation of 250 cc bolus of NS, maintenance LR, and reinitiation of Levophed. HB is stable, platelets slightly increased to 45. Total bilirubin continued to down trend today value of 6.8. Family discussed case with Dr. Rivera today who states from a surgical standpoint patient is not a candidate for further surgery, they will continue to what the drains and their output and we will lower TPN due to liver failure. Objective vital signs Vital Sign Date Time Temp Pulse Resp B/P (MAP) Pulse Ox O2 Delivery O2 Flow Rate FiO2 04/01/25 11:00 113 28 122/34 (63) 95 04/01/25 09:47 Room Air* 0 21 04/01/25 08:15 98.4 98.4 Total Intake and Output 03/31/25 03/31/25 04/01/25 15:00 23:00 07:00 Intake Total 1090.0 ml 967.0 ml 934.75 ml Output Total 1000 ml 770 ml Balance 1090.0 ml -33.0 ml 164.75 ml medications Current Medications Medications Dose Ordered Sig/Isaura Route Start Time Stop Time Status Last Admin Dose Admin Cefazolin Sodium 50 ml @ 100 mls/hr Q8HR IV 01/13/25 14:00 UNV Vasopressin 20 units/Sodium Chloride 100 ml @ 9 mls/hr Q11H7M IV 01/13/25 18:45 UNV Potassium Chloride 100 ml @ 50 mls/hr Q2H IV 01/16/25 12:45 01/16/25 18:44 UNV Vancomycin HCl 100 ml @ 100 mls/hr DAILY@1200 IV 01/20/25 12:00 UNV Amino Acids 0 ml @ 0 mls/hr PER PHARMACY IV 02/13/25 10:45 Ondansetron HCl 4 mg Q4HPRN PRN IV 02/21/25 09:30 03/12/25 17:08 4 MG Multi-Ingredient Ointment 1 applic DAILY TOP 02/23/25 10:00 04/01/25 07:35 1 APPLIC Diagnostic Test (Pha) 1 strip Q4HR 02/26/25 16:00 Cancel Diagnostic Test (Pha) 1 strip IQ4HR 02/26/25 16:00 UNV Dextrose 50 ml UD PRN IV 02/26/25 16:00 UNV Pantoprazole Sodium 40 mg BID IV 03/08/25 22:00 04/01/25 07:34 40 MG Lidocaine 1 patch DAILY TOP 03/12/25 10:00 04/01/25 07:35 1 PATCH Acetaminophen 650 mg Q6HP PRN CO 03/18/25 10:00 03/26/25 08:08 650 MG Phenylephrine HCl 80 mg/Sodium Chloride 250 ml @ 7.5 mls/hr Q24H IV 03/23/25 22:45 UNV Hydromorphone HCl 0.5 mg Q3HP PRN IV 03/24/25 12:30 03/31/25 23:49 0.5 MG Daptomycin / Sodium Chloride 50 ml @ 100 mls/hr DAILY IV 03/25/25 10:00 UNV Daptomycin 250 mg/ Sodium Chloride 50 ml @ 100 mls/hr DAILY IV 03/25/25 10:00 04/01/25 07:35 100 MLS/HR Diagnostic Test (Pha) 1 strip Q6HR 03/26/25 12:00 04/01/25 05:50 1 STRIP Insulin Human Regular FOLLOW SLIDING SCALE Q6HR SC 03/26/25 12:00 04/01/25 05:50 2 UNITS Dextrose 50 ml UD IV 03/26/25 09:30 Metronidazole 100 ml @ 100 mls/hr Q8HR IV 03/26/25 22:00 04/01/25 05:44 100 MLS/HR Hydralazine HCl 10 mg Q6HP PRN IV 03/27/25 02:00 03/27/25 02:14 10 MG Lactulose 30 ml TID NG 03/27/25 06:00 03/31/25 05:46 30 ML Cefepime HCl 50 ml @ 12.5 mls/hr Q12HR IV 03/27/25 22:00 04/01/25 07:35 12.5 MLS/HR Lactated Ringer's 1,000 ml @ 50 mls/hr Q20H IV 03/29/25 16:15 04/01/25 05:56 50 MLS/HR Norepinephrine Bitartrate 250 ml @ 3.75 mls/hr Q24H IV 03/29/25 16:15 03/31/25 11:07 7.5 MLS/HR Fat Emulsion Intravenous 50 ml/ Potassium Acetate 20 meq/Potassium Phosphate 22 meq/ Magnesium Sulfate 12 meq/ Multivitamins 10 ml/Insulin Human Regular 7 units/ Amino Acids/ Dextrose/Purified Water 1,378.07 ml @ 57 mls/hr [id number] IV 03/31/25 22:00 04/01/25 21:59 03/31/25 22:21 57 MLS/HR Fat Emulsion Intravenous 50 ml/ Sodium Acetate 20 meq/Sodium Phosphate 10 meq/ Potassium Acetate 30 meq/Magnesium Sulfate 16 meq/ Multivitamins 10 ml/Insulin Human Regular 7 units/ Amino Acids/ Dextrose/Purified Water 1,391.57 ml @ 57 mls/hr [id number] IV 04/01/25 22:00 04/02/25 21:59 Examination General: AOx2, jaundiced HEENT: Normocephalic, atraumatic, normal reactive pupils, EOM intact, icteric sclera, dry mucus membranes Respiratory/pulmonary: Bilateral chest expansion, no pain on palpation of chest wall, clear lungs bilaterally, vesicular murmurs present in almost all lung sutton, no crackles Cardiovascular: Normal RRR, normal S1 and S2, no murmurs Abdomen: Abdomen nondistended, presence of ostomy bags in mid right to lower quadrant, CARMEN drain located on left abdomen, active bowel sounds, soft, pain to palpation in areas surrounding ostomy, no palpable masses. : Presence of Leach Extremities: No deformities, there is no peripheral edema present at the lower extremities, normal pulses Skin: Jaundiced, as mentioned above, presence of dry eschars on back of bilateral heels Neurological: Intact cranial nerves with no focal neurologic deficits laboratory and microbiology Laboratory Tests 04/01/25 06:28 04/01/25 03:28 Test 04/01/25 06:28 Range/Units Serum Glucose 150 H 74-106 mg/dL Microbiology Date/Time Source Procedure Growth Status 03/30/25 03:00 Urine - Leach Port Urine Culture - Preliminary Resulted 03/29/25 04:20 Blood Blood Culture - Preliminary NO GROWTH AFTER 72 HOURS OF INCUBATION. Resulted 03/20/25 08:12 Peritoneal Fluid Gram Stain - Final Complete 03/20/25 08:12 Peritoneal Fluid Anaerobic Culture - Final Complete 03/20/25 08:12 Aerobic Culture - Final Enterococcus faecium - VRE Complete 02/25/25 11:48 Sputum Gram Stain - Final Complete 02/25/25 11:48 Sputum Respiratory Culture - Final Complete 01/13/25 17:10 Nose MRSA Screen - Final Complete Problem List/Assessment/Plan Problem List/Assessment/Plan Neurology #Chronic Ischemic Changes and Cortical Atrophy - Head CT: 01/28/2025: Chronic sequelae of microangiopathy and atrophic cortical focal volume loss. Cardiovascular #Septic Shock secondary to peritonitis due to hollow viscus perforation #Chronic diastolic heart failure without exacerbation - Echocardiogram: 01/15/2025: Normal LVEF 65%, mild LVH, mild LV diastolic dysfunction #Paroxysmal Afib - Currently not on therapeutic Lovenox due to low hemoglobin - CHADsVasc 5 # Hypertension - Monitor - Hydralazine 10 mg IV PRN Respiratory # Acute hypoxic respiratory failure secondary to bilateral pleural effusion/ pneumonia # Ventilator -Intubated () -Extubated (02/07/2025) -Reintubation (02/25/2025) -Extubation ( 02/28/2025) -Due to observed increased work of breathing, chest xray was ordered which shows no significant change from the previous study. Stable support devices. Persistent heart failure pattern. -Sputum culture 01/29: Presumptive Zoe albicans, Sputum culture from 02/25: negative GI # Acute bacterial peritonitis due to small bowel perforation secondary to perforated diverticulitis, very poor prognosis -CT abdomen: 01/12/2025: Free intraperitoneal air likely from visceral perforation of a left abdominal small bowel loop. Circumferential wall thickening of a left abdominal small bowel loop with more focal locules of gas adjacent to this thickened small bowel loop . There may be sinus tracts or a fistulous network between adjacent small bowel loops in the left abdomen with image numbers above. Mild ascites and diffuse soft tissue stranding of the mesentery # Transaminitis secondary to shock # Anion gap metabolic acidosis due to bowel ischemia and lactic acidosis # Elevated bilirubin secondary to TPN - Exploratory laparotomy 01/13/2025: Resection of perforated bowel enteroenterostomy - Exploratory laparotomy 02/04/2025: Resection near previous resection - Exploratory laparotomy 02/25/2025: Resection of distal ileum - Exploratory laparotomy 03/20/2025:Very extensive lysis of adhesions, repair of 3 ischemic perforations of small bowel, evacuation of multiple interloop abscesses, revision of ileostomy. - Exploratory laparotomy 03/24/2025: - IR-guided pigtail drain placed; drained 50 cc purulent fluid. - CARMEN drains placed in 4 quadrants initially and now patient has only 1 CARMEN drain - Peritoneal fluid (01/13): E. coli, Klebsiella pneumoniae (sensitive to meropenem). - Peritoneal fluid (02/17): E. coli, Stenotrophomonas maltophilia. - Aspirate culture: (03/02): VRE - Aspirate culture :(04/02) : VRE - Blood cultures (03/26): Bacteroides caccae - Blood cultures (03/28): Negative at 24 hours - Micafungin (03/17), Daptomycin (03/24) cefepime, Flagyl added (03/26) - Levofloxacin, Flagyl (02/03); Vancomycin and Meropenem (); Meropenem (); Vancomycin (), Bactrim stopped (03/08)8) - Per surgery: The patient is currently not a candidate for continued surgical intervention, they will continue to watch the drains and will lower rate of TPN - Patient is NPO, currently with NG tube #Acute Liver Failure - TPN will be decreased # Peptic ulcer prophylaxis -Pantoprazole 40 mg IV daily # Leach catheter Nephrology -#ISRREAL likely hemodynamically mediated/VMN - Resolved - Monitor renal function - Avoid nephrotoxix drugs #Hypokalemia - Monitor - Replete as needed #Hyperkalemia - Monitor #Hyponatremia, resolved #Hypophosphatemia - Replete as needed Infectious disease # Septic shock secondary to acute bacterial peritonitis due to small bowel perforation secondary to perforated diverticulitis - Exploratory laparotomy 01/13/2025: Resection of perforated bowel enteroenterostomy - Exploratory laparotomy 02/04/2025: Resection near previous resection - Exploratory laparotomy 02/25/2025: Resection of distal ileum - Exploratory laparotomy 03/20/2025:Very extensive lysis of adhesions, repair of 3 ischemic perforations of small bowel, evacuation of multiple interloop abscesses, revision of ileostomy. - Exploratory laparotomy 03/24/2025: - IR-guided pigtail drain placed; drained 50 cc purulent fluid. - CARMEN drains placed in 4 quadrants initially and now patient has only 1 CARMEN drain - Peritoneal fluid (01/13): E. coli, Klebsiella pneumoniae (sensitive to meropenem). - Peritoneal fluid (02/17): E. coli, Stenotrophomonas maltophilia. 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 #Acute DVT of right upper extremity - Venous duplex US of right upper extremity: partial thrombus in right internal jugular ad cephalic vein - Left upper extremity Venous Duplex US: thrombus in left brachial vein and bilateral cephalic veins - Hold anticoagulation at this time Endocrine # Hypothyroidism - TSH previously 42 --> 0.90 - Levothyroxine 50 mcg, held at this time # Type 2 Diabetes Mellitus, HbA1c: 8.1 - Sliding scale insulin Nutrition # Severe protein malnutrition # TPN Lines Airway: Intubated on 01/14, extubated on 02/07, reintubated on 02/25 extubated 02/28 Vascular Access: PICC line placed in right upper thigh on 01/26. Drips: Levophed 4 mcg/min Urinary: Leach catheter placed on 01/14, exchanged on 02/14. Exchanged on 03/17. CARMEN drains in 1 quadrant. Ostomy bag in lower right abdominal quadrant PUD prophylaxis: Protonix DVT prophylaxis: Held at this time due to anemia Physical therapy ordered Critical care time 79 minutes excluding procedure. Code status discussed greater than 20 minutes: Full CODE STATUS. Family at bedside explained about the condition of the patient Plan discussed with Dr. Pino Plan discussed with: Son, Other (Nurse) My Orders My Orders Orders - CARMEL SNYDER Procedure Category Date Status Time Npo (Nothing By DIET 03/31/25 Transmitted Mouth) Diet Dinner Dietary Evaluation Review Comments: Nutrition Recommendation: 1) TPN to meet at least 75% estimated needs within 7 days 2) Monitor NPO status, lab values, wt trend, I/O Expected Outcomes/Goals: To meet >75% estimated needs Lab values to improve Fu 2-3 days Is there a minimum of two crit: Yes CC Plasma Assessment Blood Product Administration S: [id number] CARMEL SNYDER RESIDENT Apr 01, 2025 11:34
--- NOTE | 2025-04-01 15:08 | DVHPN2 ---
Progress Note Date Seen: Apr 01, 2025 Medical Necessity Reason Pt with a Central, PICC or Fol: Yes The following are medically ne: PICC Line, Leach Catheter Reason for leach catheter: Strict I&O Objective vital signs Vital Sign Date Time Temp Pulse Resp B/P (MAP) Pulse Ox O2 Delivery O2 Flow Rate FiO2 04/01/25 14:16 113 26 96/34 (54) 96 04/01/25 13:39 Room Air* 0 21 04/01/25 12:00 98.8 98.8 Total Intake and Output 03/31/25 03/31/25 04/01/25 15:00 23:00 07:00 Intake Total 1090.0 ml 967.0 ml 934.75 ml Output Total 1000 ml 770 ml Balance 1090.0 ml -33.0 ml 164.75 ml medications Current Medications Medications Dose Ordered Sig/Isaura Route Start Time Stop Time Status Last Admin Dose Admin Cefazolin Sodium 50 ml @ 100 mls/hr Q8HR IV 01/13/25 14:00 UNV Vasopressin 20 units/Sodium Chloride 100 ml @ 9 mls/hr Q11H7M IV 01/13/25 18:45 UNV Potassium Chloride 100 ml @ 50 mls/hr Q2H IV 01/16/25 12:45 01/16/25 18:44 UNV Vancomycin HCl 100 ml @ 100 mls/hr DAILY@1200 IV 01/20/25 12:00 UNV Amino Acids 0 ml @ 0 mls/hr PER PHARMACY IV 02/13/25 10:45 Ondansetron HCl 4 mg Q4HPRN PRN IV 02/21/25 09:30 03/12/25 17:08 4 MG Multi-Ingredient Ointment 1 applic DAILY TOP 02/23/25 10:00 04/01/25 07:35 1 APPLIC Diagnostic Test (Pha) 1 strip Q4HR 02/26/25 16:00 Cancel Diagnostic Test (Pha) 1 strip IQ4HR 02/26/25 16:00 UNV Dextrose 50 ml UD PRN IV 02/26/25 16:00 UNV Pantoprazole Sodium 40 mg BID IV 03/08/25 22:00 04/01/25 07:34 40 MG Lidocaine 1 patch DAILY TOP 03/12/25 10:00 04/01/25 07:35 1 PATCH Acetaminophen [address] 03/18/25 10:00 03/26/25 08:08 650 MG Phenylephrine HCl 80 mg/Sodium Chloride 250 ml @ 7.5 mls/hr Q24H IV 03/23/25 22:45 UNV Hydromorphone HCl 0.5 mg Q3HP PRN IV 03/24/25 12:30 03/31/25 23:49 0.5 MG Daptomycin / Sodium Chloride 50 ml @ 100 mls/hr DAILY IV 03/25/25 10:00 UNV Daptomycin 250 mg/ Sodium Chloride 50 ml @ 100 mls/hr DAILY IV 03/25/25 10:00 04/01/25 07:35 100 MLS/HR Diagnostic Test (Pha) 1 strip Q6HR 03/26/25 12:00 04/01/25 12:00 1 STRIP Insulin Human Regular FOLLOW SLIDING SCALE Q6HR SC 03/26/25 12:00 04/01/25 12:00 4 UNITS Dextrose 50 ml UD IV 03/26/25 09:30 Metronidazole 100 ml @ 100 mls/hr Q8HR IV 03/26/25 22:00 04/01/25 12:46 100 MLS/HR Hydralazine HCl 10 mg Q6HP PRN IV 03/27/25 02:00 03/27/25 02:14 10 MG Lactulose 30 ml TID NG 03/27/25 06:00 03/31/25 05:46 30 ML Cefepime HCl 50 ml @ 12.5 mls/hr Q12HR IV 03/27/25 22:00 04/01/25 07:35 12.5 MLS/HR Lactated Ringer's 1,000 ml @ 50 mls/hr Q20H IV 03/29/25 16:15 04/01/25 05:56 50 MLS/HR Norepinephrine Bitartrate 250 ml @ 3.75 mls/hr Q24H IV 03/29/25 16:15 03/31/25 11:07 7.5 MLS/HR Fat Emulsion Intravenous 50 ml/ Potassium Acetate 20 meq/Potassium Phosphate 22 meq/ Magnesium Sulfate 12 meq/ Multivitamins 10 ml/Insulin Human Regular 7 units/ Amino Acids/ Dextrose/Purified Water 1,378.07 ml @ 57 mls/hr [id number] IV 03/31/25 22:00 04/01/25 21:59 03/31/25 22:21 57 MLS/HR Fat Emulsion Intravenous 50 ml/ Sodium Acetate 20 meq/Sodium Phosphate 10 meq/ Potassium Acetate 30 meq/Magnesium Sulfate 16 meq/ Multivitamins 10 ml/Insulin Human Regular 7 units/ Amino Acids/ Dextrose/Purified Water 1,391.57 ml @ 57 mls/hr [id number] IV 04/01/25 22:00 04/02/25 21:59 laboratory and microbiology Laboratory Tests 04/01/25 06:28 04/01/25 03:28 Test 04/01/25 06:28 Range/Units Serum Glucose 150 H 74-106 mg/dL Microbiology Date/Time Source Procedure Growth Status 03/30/25 03:00 Urine - Leach Port Urine Culture - Preliminary Resulted 03/29/25 04:20 Blood Blood Culture - Preliminary NO GROWTH AFTER 72 HOURS OF INCUBATION. Resulted 03/20/25 08:12 Peritoneal Fluid Gram Stain - Final Complete 03/20/25 08:12 Peritoneal Fluid Anaerobic Culture - Final Complete 03/20/25 08:12 Aerobic Culture - Final Enterococcus faecium - VRE Complete 02/25/25 11:48 Sputum Gram Stain - Final Complete 02/25/25 11:48 Sputum Respiratory Culture - Final Complete 01/13/25 17:10 Nose MRSA Screen - Final Complete Problem List/Assessment/Plan Problem List/Assessment/Plan REMAINS EXTUBATED AFEBRILE HEMODYNAMICALLY LABILE ON VASOPRESSOR ABD SOFT WOUND DRAINAGE SAME ILEOSTOMY FUNCTION BETTER DRAIN 250 CC DARK BROWN CBC WNL LFT MILD ELEVATION CONTINUE CLOSE OBSERVATION AND SUPPORTIVE CARE FAMILY AND NURSE AT BEDSIDE Plan discussed with: Other My Orders My Orders Orders - MISTY RODRÍGUEZ MD Procedure Category Date Status Time Communication Order ORDERS 03/31/25 Transmitted 14:45 Dietary Evaluation Review Comments: Nutrition Recommendation: 1) TPN to meet at least 75% estimated needs within 7 days 2) Monitor NPO status, lab values, wt trend, I/O Expected Outcomes/Goals: To meet >75% estimated needs Lab values to improve Fu 2-3 days Is there a minimum of two crit: Yes CC Plasma Assessment Blood Product Administration S: [id number] MISTY RODRÍGUEZ MD Apr 01, 2025 15:08
[2025-04-01] MEDS: TPN PER PHARMACY IV NR (22:18)
[2025-04-02] VITALS (107 sets, daily range): BP systolic 28–236; BP diastolic 12–212; PULSE 104–137; RESP 13–41; TEMP 97.4–97.8; O2SAT 89–99
[2025-04-02 03:41] LABS: Hematocrit 27.6 % (36.0-46.0); Hemoglobin 9.0 g/dL (12.2-16.2); Mean Corpuscular Hemoglobin 33.9 pg (28.0-32.0); Mean Corpuscular Volume 103.7 fL (80.0-100.0); Nucleated Red Blood Cells % 1.1 %
[2025-04-02 03:49] LABS: INR 2.37 (0.9-1.15); Partial Thromboplastin Time 55.0 SEC (24.5-34.5); Prothrombin Time 23.1 sec (9.3-11.8)
[2025-04-02 03:54] LABS: Anion Gap 11 (5-15); BUN/Creatinine Ratio 47.1 (10.0-20.0); Calcium 9.6 mg/dL (8.7-10.4); Magnesium 2.1 mg/dL (1.6-2.6); Potassium 4.0 mmol/L (3.5-5.1); Sodium 143 mmol/L (136-145); Triglycerides 100 mg/dL (< 150)
[2025-04-02 04:04] LABS: Alanine Aminotransferase 51 U/L (7-40); Albumin 1.3 g/dL (3.2-4.8); Alkaline Phosphatase 123 U/L (46-116); Bilirubin, Total 7.2 mg/dL (0.2-1.0); Blood Urea Nitrogen 57 mg/dL (9-23); Carbon Dioxide 18 mmol/L (20-31); Chloride 114 mmol/L (98-107); Glucose 148 mg/dL (74-106); Total Protein 4.4 g/dL (5.7-8.2)
[2025-04-02 04:55] LABS: Giant Platelets Few
[2025-04-02 04:56] LABS: Macrocytosis Slight
--- NOTE | 2025-04-02 06:39 | DVHPN2 ---
Progress Note Date Seen: Apr 02, 2025 Medical Necessity Reason Pt with a Central, PICC or Fol: Yes The following are medically ne: PICC Line, Leach Catheter Reason for leach catheter: Strict I&O Objective vital signs Vital Sign Date Time Temp Pulse Resp B/P (MAP) Pulse Ox O2 Delivery O2 Flow Rate FiO2 04/02/25 06:17 116 17 136/112 (120) 94 04/02/25 06:00 Room Air* 0 21 04/02/25 04:46 97.8 97.8 Total Intake and Output 04/01/25 04/01/25 04/02/25 15:00 23:00 07:00 Intake Total 1261.0 ml 1115.50 ml 939.00 ml Output Total 555 ml 735 ml Balance 1261.0 ml 560.50 ml 204.00 ml medications Current Medications Medications Dose Ordered Sig/Isaura Route Start Time Stop Time Status Last Admin Dose Admin Cefazolin Sodium 50 ml @ 100 mls/hr Q8HR IV 01/13/25 14:00 UNV Vasopressin 20 units/Sodium Chloride 100 ml @ 9 mls/hr Q11H7M IV 01/13/25 18:45 UNV Potassium Chloride 100 ml @ 50 mls/hr Q2H IV 01/16/25 12:45 01/16/25 18:44 UNV Vancomycin HCl 100 ml @ 100 mls/hr DAILY@1200 IV 01/20/25 12:00 UNV Amino Acids 0 ml @ 0 mls/hr PER PHARMACY IV 02/13/25 10:45 Ondansetron HCl 4 mg Q4HPRN PRN IV 02/21/25 09:30 03/12/25 17:08 4 MG Multi-Ingredient Ointment 1 applic DAILY TOP 02/23/25 10:00 04/01/25 07:35 1 APPLIC Diagnostic Test (Pha) 1 strip Q4HR 02/26/25 16:00 Cancel Diagnostic Test (Pha) 1 strip IQ4HR 02/26/25 16:00 UNV Dextrose 50 ml UD PRN IV 02/26/25 16:00 UNV Pantoprazole Sodium 40 mg BID IV 03/08/25 22:00 04/01/25 22:18 40 MG Lidocaine 1 patch DAILY TOP 03/12/25 10:00 04/01/25 07:35 1 PATCH Acetaminophen 650 mg Q6HP PRN FL 03/18/25 10:00 03/26/25 08:08 650 MG Phenylephrine HCl 80 mg/Sodium Chloride 250 ml @ 7.5 mls/hr Q24H IV 03/23/25 22:45 UNV Hydromorphone HCl 0.5 mg Q3HP PRN IV 03/24/25 12:30 04/02/25 05:33 0.5 MG Daptomycin / Sodium Chloride 50 ml @ 100 mls/hr DAILY IV 03/25/25 10:00 UNV Daptomycin 250 mg/ Sodium Chloride 50 ml @ 100 mls/hr DAILY IV 03/25/25 10:00 04/01/25 07:35 100 MLS/HR Diagnostic Test (Pha) 1 strip Q6HR 03/26/25 12:00 04/02/25 05:05 1 STRIP Insulin Human Regular FOLLOW SLIDING SCALE Q6HR SC 03/26/25 12:00 04/02/25 05:05 4 UNITS Dextrose 50 ml UD IV 03/26/25 09:30 Metronidazole 100 ml @ 100 mls/hr Q8HR IV 03/26/25 22:00 04/02/25 05:05 100 MLS/HR Hydralazine HCl 10 mg Q6HP PRN IV 03/27/25 02:00 04/02/25 05:04 10 MG Lactulose 30 ml TID NG 03/27/25 06:00 03/31/25 05:46 30 ML Cefepime HCl 50 ml @ 12.5 mls/hr Q12HR IV 03/27/25 22:00 04/01/25 22:19 12.5 MLS/HR Lactated Ringer's 1,000 ml @ 50 mls/hr Q20H IV 03/29/25 16:15 04/01/25 21:41 50 MLS/HR Norepinephrine Bitartrate 250 ml @ 3.75 mls/hr Q24H IV 03/29/25 16:15 04/01/25 17:06 11.25 MLS/HR Fat Emulsion Intravenous 50 ml/ Sodium Acetate 20 meq/Sodium Phosphate 10 meq/ Potassium Acetate 30 meq/Magnesium Sulfate 16 meq/ Multivitamins 10 ml/Insulin Human Regular 7 units/ Amino Acids/ Dextrose/Purified Water 1,391.57 ml @ 57 mls/hr [id number] IV 04/01/25 22:00 04/02/25 21:59 04/01/25 22:18 57 MLS/HR laboratory and microbiology Laboratory Tests 04/02/25 02:40 Test 04/02/25 02:40 Range/Units Serum Glucose 148 H 74-106 mg/dL Problem List/Assessment/Plan Problem List/Assessment/Plan confused and disoriented, abdomen soft, non tender, sdrainage less, no vomiting, labs indicatye sepsis,liver and kidney failure, prognosis extremely poor.01/14/25 afebrile, low dose BP support, received transfusion, I believe her decreased hematocrit is due to hemodilution. abdomen non distended, soft, wound clean and well approximated, drainage serous . remains intubated and sedated 01/16/25 ALKALOSIS, ABDOMEN NON DISTENDED, SOFT, DRAINAGE SEROUS, WOUND CLEAN AND WELL APPROXIMATED 01/17/25 improved, thrombocytopenia possibly made worse by Fluconazole,will DC, abdomen non distended, wound well approximated without infection, TATY drainage serous, CVP 6, good urine output. 01/18/25 abg reviewed, ,abdomen soft, non distended, TATY drainage clear serous, no bowel activity, febrile, urine output ok, continues with thrombocytopenia,pt and inr slightly elevated. prognosis grave. 01/20/25remains sedated on ventilator, abdomen soft, non distended, faint bowel sounds auscultated by nurse, wound clean and well approximated, TATY drainage clear serous. continues with thrombocytopenia, still behind on intravascular volume( BUN and Creatinine elevated), i would give more IV fluids and DC vancomycin. 01/25/25 afebrile, normotensive, wound clean and well approximated, TATY drainage serous, abdomen non distended, soft, gastrografin small bowel series shows non obstructed GI tract and no evidence of extravasation. It is OK to initiate enteric feedings. 01/29/25 16 DAYS POST OPERATIVELY TRHE TATY DRAINAGE WHICH HAD CONSISTENTLY BEEN SEROUS OR SERO SANGUINEOUS HAS BECOME "DIRTY" BROWNISH DISCOLORATION, HER WOUND IS CLEAN AND WELL APPROXIMATED AND HER ABDOMEN IS SOFT AND NON DISTENDED, CT SCAN SHOWS SO0ME FLUID AND ACCUMULATION OF FLUID AROUND THE SPLEEN, WILL REQUEST CT GUIDED ASPIRATION OF SAME, WILL ORDER IRRIGATION OF DRAINS. SHE SI AFEBRILE AND MAINTAINS NORMAL BLOOD PRESSURE, HER WBC IS NORMAL. 01/30/25 improved, awake, being weaned off vent. abdomen non distended, non tender, taty drainage clearing with irrigation 02/02/25clinically unchanged, gastrografin small bowel series reported and normal, no extravasation reported, will order a follow ujp KUB for tomorrow AM 02/03/25 PATIENT HAD A GASTROGRAFIN SMALL BOWEL SERIES AND A FOLLOW UP KUB X RAYS NEITHER ONE OF WHICH SHOW EXTRAVASATION OF CONTRAST OR EVIDENCE OF FREE CONTRAST IN THE PERITONEAL CAVITY. THERE IS HOWEVER VISCOUS, BROWNISH FLUID DRAINING VIA BOTH TATY DRAINS AND THROUGH INFRAUMBILICAL PORTION OF MIDLINE WOUND, I REMOVED THE RICHIE FROM THE 3 CM SECTION OF THE INFRAUMBILICAL WOUND AND EVACUATED ABOUT 30 CC OF THIS FLUID AND INSTRUCTED THE NURSE TO PLACE A STOMA APPLIANCE ON THIS OPENING. 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 TODAY HER WBC IS ELEVATED, ABDOMEN CONTINUES TO BE NON DISTENDED, SOFT, BUT SHE DOES HAVE SLIGHT TENDERNESS IN THE PERIUMBILICAL AREA. I WILL TREAT THIS EXPECTANTLY FORM THE TIME BEING IN THE HOPE THAT THIS IS A "CONTROLLED" FISTULA AND HOPEFUL WILL HEAL SPONTANEOUSLY WITH NPO AND NUTRITIONAL SUPPORT. WILL WATCH CLOSELY, AFTER A FEW DAYS WILL GET A FISTULOGRAM TO PIN POINT THE ENTERIC ORIGIN OF THE FISTULIZATION. CONTINUE NGT SUCTION AND DRAIN IRRIGATION ORDERED02/05/25 02/05/25 remains sedated and intubated?ventilated, abdomen non distended soft, wound vac in place. TATY drainage serosanguineous 02/08/25 EXTUBATED, GOOD INSPIRATORY EFFORT, BP NML WITHOUT PRESSOR SUPPORT, ABDOMEN SOFT, NON DISTENDED, APPROPRIATELY TENDER, LABS REVIEWED. NO CHANGES TODAY OTHER THAN ALLOW ICE CHIPS PO. WILL ORDER GASTROGRAFIN SMALL BOWEL FOLLOWTHROUGH FOR Friday02/09/25 awake cooperative, wound vac in place, abdomen soft, non distended, appropriately tender, TATY drainage brownish discoloration, will irrigate, her WBC is normal and she is afebrile and normotensive. gastrografin tomorrow 02/10/25 AWAKE,COMFORTABLE, DENIES PAIN, ABDOMEN NON DISTENDED APPROPRIATELY TENDER, WOUND CLEAN AND WELL APPROXIMATED, DRAINS BEING IRRIGATED, LABS OK, GOOD URINE OUTPUT. "SURGICALLY" STABLE 02/11/25 feels well, passing flatus. is hungry, abdomen soft non distended, drainage clearing with irrigation, will wait for Gastrografin small bowel series to be completed, if normal will start po clear liquids 02/12/25 no nausea, change in TATY drainage colort, appears to contaIN, BILE, WILL DC po CLEAR LIQUIDS, CONTINUE ICE CGHIPS, SEND DRAin fluid for amylase and bilirubin, 02/13/25 states she feels well, abdomen non tender, non distended, wound clean and well approximated. drainage slightly clearer, keep npo for now, needs to resume TPN 02/14/25 PATIENT C/O BEING COLD BUT HAS NO PAIN, DRAINAGE SEEMS TO BE CLEARING, SHE HAD A BOWEL MOVEMENTS, ABDOMEN IS SOFT AND NON TENDER, NON DISTENDED, WOUND IS CLEAN AND WELL APPROXIMATED, WILL CONTINUE NPO STATUS AMYLASE ON TATY DRAINAGE FLUID IS GOING TO TAKE SEVERAL DAYS TO BECOME AVAILABLE. CONTINUE TPN 02/16/25 DENIES PAIN,STATES SHE FEELS BETTER, WOUND VAC IN PLACE, ABDOMEN NON TENDER,NON DISTENDED, TATY DRAINAGE SMALL TO MODERATE , WILL CONTINUE IRRIGATING DRAINS, WILL REQUEST GI CONSULT TO CONSIDER ENDOSCOPY. WBC NL,H/H STABLE , ALBUMIN STILL VERY LOW. , 02/17/25 CT SCAN REVIEWED, I SUSPECT THERE IS A SMALL LEAK FROM THE APPEARANCE OF IMAGING ALTHOUGH RADIOLOGIST RECOMMENDED REPEAT CT SCAN (ORDERED). THE DRAINAGE IS SMALL AMOUNT BUT NOW IT IS WITH AN ODOR, I WILL RE INSERT NGT TO ATTEMPT DECREASING THE GASTRIC CONTENTS. ABDOMEN IS SOFT, APPROPRIATELY TENDER, WOUND VAC IN PLACE 02/18/25 AFEBRILE, NORMOTENSIVE4, WBC NL, ALL IMAGING NEGATIVE, ANGIOGRAM SHOWS NO EVIDENCE OF HYPOPERFUSION, CONTRAST AND NON CONTRAST CT SCAN FAILED TO SHOW ANY EVIDENCE OF EXTRAVASATION, THE DRAINAGE CONTINUES TO BE BROWNISH DISCOLORED AND FOULS SMELLING, EXPLAINED TO PT'S SON THAT I HAVE NO EVIDENCE OF ANY GI LEAKAGE, WILL GET A GASTROGRAFIN ENEMA ON FRIDAY, I AM TRYING TO REFRAIN FROM OPERATING ON THE FRAIL ELDERLY PATIENT FOR THE THIRD TIME, SHE WILL NOT TOLERATE ANOTHYER OPERATION WELL. HER ALBUMIN REMAINS VERY LOW.WOUND VAC OK 02/19/25 feels ok,c/o being cold, abdomen soft. non distended, minimally tender, drainage seems to be little less, labs ok, continue as is 02/22/25 she feels well, abdomen is non tender, soft and non distended, drainage slightly less in volume, still discolored,gastrografin enema reviewed by me ( no radiologist/s interpretation available), she has not evacuated the gastrografin according to nurse. 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 will proceed with operation on 02/25/25 at 0715 AM. 02/27/25 SLIGHT IMPROVEMENT, ABDOMEN SOFT, NON DISTENDED, STOMA VIABLE WITHOUT FUNCTION, OK TO TRY GETTING OFF VENTILATOR. 03/01/25 extubated, conversant,oriented, abdomen non distended, appropriately tender, wound clean ans well approximated, drainage serous, stoma viable and with minimal liquid,no gas. will sips of water and ice po 03/02/25 awake comfortable, denies pain, abdomen appropriately tender, wound vac in place, afebrile, normotensive, drainage serosanguineous, cbc stable, stoma viable and with minimal output will resume irrigation of drain 03/03/25 awake ,cooperative, good inspiratory effort, afebrile, normotensive, wound covered with wound vac, drainage serous but cloudy(cultures ordered) abdomen non tender, stoma viable with minimal output. will order gastrografin ugi with small bowel follow throught for tomorow 03/04/25 vital signs stable, good urine output, wound vac ok, abdomen non tender. Xray pending 03/05/25 UGI X RAY SHOWS A NEW AREA OF LEAK,BEING ADEQUATELY DRAINED BY THE TATY DRAIN WHICH IS ADJACENT TO IT, HER ABDOMEN IS NON TENDER. WILL RESUME STRICT NPO STATUS, KEEP NGT TO CONTINUOUS SUCTION, I HAVE CALLED HER SON ILIANA AND EXPLAINED THAT PROBABLY THE INTESTINAL WALL IS NOT HEALING WHENEVER WE PLACE SUTURE AT SITES OF ANASTOMOSES. HER ABDOMEN IS NON TENDER, I WILL TREAT THIS CONSERVATIVELY FOR SOME TIME TO SEE IF THE LEAK MAY SHOW SOME EVIDENCE OF HEALING. YESTERDAY THERE WAS 500 CC OF TATY DRAINAGE. HER ALBUMIN LEVEL IS SLOWLY IMPROVING BUT STILL REMAINS LOW. IT APPEARS THAT THE SUTURES IN HER INTESTINAL ANASTOMOSES HOLD FOR ABOUT A WEEK AND THEN BREAK DOWN. (DRAINAGE TURNED FROM SEROSANGUINEOUS TO GREENISH YESTERDAY. 03/06/25 drainage slightly less in volume, still enteric contents abdomen softn and non tender, non distended. wound vac changed, wound healing, no chjanges for now. discussed with family. 03/08/29 feels better, no pain, abdomen soft and non tender, drainage minimally less, family at bedside, answered questions 03/09/25 son at bedside, patient feels "well" wants to eat, explained that we need to keep her intestine at rest' afebrile, normotensive, drainage less, abdomen non tender, wound vac in p-lace wbc normal today. h/h stable/ continue npo aqnd ngt there is stool in stoma appliance 03/13/25 SLOW IMPROBVEMENT,ABDOMEN NON TENDER, NON DISTENDED, SOME STOOL IN STOMA, DRAINAGE SLIGHTLY LESS VOLUME, CONTINUE IS, NEEDS MOR IV FLUYID (ORDERS GIVEN) 03/15/25 stable, having the NG tube clamped did not cause distress nor did it result in increase of the TATY drainage ,I have therefore removed the NG tube, she does need to remain NPO however, if there are no major changes in her condition in the next 48 hours she would be stable to transfer to a SNF on TPN, I will gladly make "house calls " on here at the facility . abdomen remains non distended, non tender, wound awaiting a wound vac but it is without evidence of infection, I have digitally probed the styoma which has inverted on itself, it is patent ancd without stenosis below the skin level. 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 drainage unchanged 03/22/25 doing well ,drainag clear, stoma viable and functioning, abdomen soft and appropriately tender, wound vac, labs reviewed. 03/25/25 until yeswterday she had minimal serous drainage in the TATY drain, this morning however tghe drainage is more voluminous and apperas to contain bile, her abdomen is non distended and appropriately tender, however i believe that the bowel has developed another "leak", I CALLED PATIENT SON AND EXPLAINED THE SITUATION TO HIM 03/26/25 transient hypotension responded to iv fluid bolus, drainage today is serosanguineous and there is some output of enteric contents through the ileostomy. have asked nurse to deflate the balloon on the leach catheter inside the ileostomy. abdomen non distended less tender than yesterday. she is feeling better than she did yesterday. I had a regine discussion with patient's son and told him that his mom will most likely not recover from this condition and if it was my mother I would give some consideration to taking her home on hospice. and I explained how hospice functions. He will discuss with family. 03/27/25 diastolic hypertension, abdomen soft, nopn disten ded, patient asleep, wound unchanged, DRAINAGE CLOUDY, VOLUME UNCHANGED, ILEOSTOMY OUTPUT IMPROVED, AWAITING FAMILY'S DECISION RE HOSPICE DISCHARGE 03/28/25 clinically unchanged, wound dressing dry, taty drainage brownish, moderate, ileostomy functioning, nurse informed me that family would like a second opinion,I have called to see patient and talk with family. so far no decision on hospice 03/29/25 slowly deteriorating, now with liver failure and jaundice, BUN and creatinine also increasing. abdomen examination unchanged. ACCORDING TO NURSE THERE IS A FAMILY CONFERENCE WITH SCHEDULED FOR THIS AFTERNOON. I will be available by phone if needed. Dr Rivera apparently saw pt yesterday, awaiting his report of second opinion 03/30/[address] [facility] at bedside, patient's condition unchanged, all questions answered 03/31/25 patient arousable but somnolent, abdomen non distended appears non tender, stoma output liquid and 700 cc yeaterda, TATY drainage unganched, wound drainage unchanged, will remove NGT to attempt to make her more comfortable, prognosis poor.. 04/02/25 confused and somnolent, hypotensive, wounds unchanged ,drainage less, abdomen non distended.labs indicate sepsis,liver and kidney failure, prognosis extremely poor l Plan discussed with: Patient, Other Dietary Evaluation Review Comments: Nutrition Recommendation: 1) TPN to meet at least 75% estimated needs within 7 days 2) Monitor NPO status, lab values, wt trend, I/O Expected Outcomes/Goals: To meet >75% estimated needs Lab values to improve Fu 2-3 days Is there a minimum of two crit: Yes MELVA RAMESH MD Apr 02, 2025 06:39
--- NOTE | 2025-04-02 13:20 | DVHPNRES ---
Progress Note Date Seen: Apr 02, 2025 Resident Creating Document: YUNIER CORRAL RESIDENT Has the PT tested + for MRSA If YES, has PT been informed?: No Medical Necessity Reason Pt with a Central, PICC or Fol: Yes The following are medically ne: PICC Line, Leach Catheter Reason for leach catheter: Strict I&O Subjective Review of Systems Ms. Hays is a 80 year old female with PMHx of hypertension, AFib on eliquis, type 2 diabetes mellitus, and chronic kidney disease, who presented to [facility] with chief complaint of constipation and abdominal pain. The patient referred intermittent minimal pain the previous 4 months, which progressively worsened described as described the abdominal pain is sharp constant pain, diffuse in nature, 9/10, radiates to the back and associated with constipation. Initial abdominal CT without IV contrast demonstrated free intraperitoneal likely from visceral perforation of the left abdominal small bowel loops, circumferential wall thickening of left abdominal small bowel loop with more focal local pool of gas adjacent to this thickened small bowel loop. The patient was found to have peritonitis secondary to perforated diverticulitis, for which she underwent an exploratory laparotomy on 01/13/2025 with resection of perforated bowel and formation of enteroenterostomy. Patient was to found to be in septic shock requiring intubation and vasopressor support. Due to abnormal CARMEN drain output, the patient has required multiple follow up exploratory laparotomies on 02/04/2025, 02/25/2025, 03/20/2025, and 03/24/2025, with subsequent resections of affect bowel. Previous medical history: Hypertension, AFib on eliquis (per record the patient was not taking this medication), Type 2 Diabetes mellitus, CKD Previous surgical history: C - section, hernia repair Social: Patient lives with family. Denies previous drug, tobacco, or alcohol use 04/02/25 The patient is significantly more lethargic and less responsive today, requiring repeated verbal and tactile stimulation. she developed profound hypotension, with a recorded lowest BP of 40/12 mmHg, requiring escalation to norepinephrine (Levophed) at 8 mcg/min. Heart rate remained tachycardic [id number] bpm. Oxygen saturation dropped to 88%, requiring initiation of 2 L/min nasal cannula, improving to 9297%. Respiratory rate fluctuated 1735 breaths/min, intermittently tachypneic with increased work of breathing. Given worsening hemodynamics, decreasing responsiveness, rising vasopressor requirement, thrombocytopenia, metabolic acidosis, and persistent respiratory distress, the prognosis remains extremely poor. Family updated today; son informed of critical deterioration. Family is considering comfort measures only status and will discuss internally before signing. Until decision final, patient remains DNR and DNI and continues on Levophed. 04/01/2025: Patient seen in ICU today. Levophed had to be increased to 8 mcg/min today, was able to be brought down to 6 towards the evening. Mentation remains the same. She is afebrile, MAP is maintained on Levophed, and she remains tachypneic and tachycardic. LFTs continue to rise. NG tube was removed by Dr. Christy for comfort. Her son and ADRIANNA, has decided on home hospice, however, at this time she is too unstable to transfer home. We have discussed the patient's continued deteriorating state and poor prognosis with her son. He states he wishes for her to remain full code at this time while he discusses with the family. 03/31/2025: Patient seen in ICU today. Continues on Levophed 4 mcg/min, without supplemental oxygen. Per her nurse, Jayme, they tried to lower Levophed however patient became hypotensive. She continues to have intermittent periods of altered mentation. CARMEN and Ostomy output have both increased, continue to draink dark brown/red fluid. She is afebrile, MAP maintained on Levophed, and tachycardic. CBC is stable. LFTs are rising. Due to new TSH of 0.9 we will be holding Levothyroxine for the time being. Patient has poor prognosis. 03/30/2025: Patient seen in ICU today. Currently on Levophed 4 mcg/min, without supplemental oxygen. Per her nurse, Jayme, states that overnight blood pressure was persistently low, for which they had to increase Levophed from 2 mcg to 4 mcg. Pain remains difficult to control on dilaudid. On evaluation today, the patient is more confused, is able to confirm her name and date of , unable to answer further questions. She continues o be jaundiced, CARMEN output is still high, ostomy bag draining less, continues to drain dark brownish/red fluid. She is afebrile, MAP has improved on Levophed, mostly tachycardic. CBC is stable, showing minor improvement in platelets, renal function slightly improved, total bilirubin continues to downtrend. Blood cultures growing bacteroides, which is covered by flagyl. Second set of blood cultures are currently negative at 24 hours of incubation. We will continue to monitor. 03/29/2025: Patient seen in the ICU today. Currently continues without supplemental oxygen. Currently on Levophed. Per her nurse, Li, overnight had increase of drain output, pain was more difficult to control with Dilaudid, and she continues to be more confused. She is has periods more alertness, however remains confused. She was jaundiced, CARMEN and ostomy output are high draining brown red fluid. Chest x-ray from yesterday showed no changes from previous exams. She has remained afebrile since Friday, has been hypotensive for the majority of the day requiring initiation of 250 cc bolus of NS, maintenance LR, and reinitiation of Levophed. HB is stable, platelets slightly increased to 45. Total bilirubin continued to down trend today value of 6.8. Family discussed case with Dr. Rivera today who states from a surgical standpoint patient is not a candidate for further surgery, they will continue to what the drains and their output and we will lower TPN due to liver failure Objective vital signs Vital Sign Date Time Temp Pulse Resp B/P (MAP) Pulse Ox O2 Delivery O2 Flow Rate FiO2 04/02/25 12:00 35 92 Nasal Cannula* 2 28 04/02/25 08:41 113 148/128 04/02/25 08:00 97.4 97.4 Total Intake and Output 04/01/25 04/01/25 04/02/25 14:59 22:59 06:59 Intake Total 1257.25 ml 1106.75 ml 1069.75 ml Output Total 555 ml 735 ml Balance 1257.25 ml 551.75 ml 334.75 ml medications Current Medications Medications Dose Ordered Sig/Isaura Route Start Time Stop Time Status Last Admin Dose Admin Cefazolin Sodium 50 ml @ 100 mls/hr Q8HR IV 01/13/25 14:00 UNV Vasopressin 20 units/Sodium Chloride 100 ml @ 9 mls/hr Q11H7M IV 01/13/25 18:45 UNV Potassium Chloride 100 ml @ 50 mls/hr Q2H IV 01/16/25 12:45 01/16/25 18:44 UNV Vancomycin HCl 100 ml @ 100 mls/hr DAILY@1200 IV 01/20/25 12:00 UNV Amino Acids 0 ml @ 0 mls/hr PER PHARMACY IV 02/13/25 10:45 Ondansetron HCl 4 mg Q4HPRN PRN IV 02/21/25 09:30 03/12/25 17:08 4 MG Multi-Ingredient Ointment 1 applic DAILY TOP 02/23/25 10:00 04/02/25 07:47 1 APPLIC Diagnostic Test (Pha) 1 strip Q4HR 02/26/25 16:00 Cancel Diagnostic Test (Pha) 1 strip IQ4HR 02/26/25 16:00 UNV Dextrose 50 ml UD PRN IV 02/26/25 16:00 UNV Pantoprazole Sodium 40 mg BID IV 03/08/25 22:00 04/02/25 07:47 40 MG Lidocaine 1 patch DAILY TOP 03/12/25 10:00 04/02/25 07:47 1 PATCH Acetaminophen 650 mg Q6HP PRN PA 03/18/25 10:00 03/26/25 08:08 650 MG Phenylephrine HCl 80 mg/Sodium Chloride 250 ml @ 7.5 mls/hr Q24H IV 03/23/25 22:45 UNV Hydromorphone HCl 0.5 mg Q3HP PRN IV 03/24/25 12:30 04/02/25 08:41 0.5 MG Daptomycin / Sodium Chloride 50 ml @ 100 mls/hr DAILY IV 03/25/25 10:00 UNV Daptomycin 250 mg/ Sodium Chloride 50 ml @ 100 mls/hr DAILY IV 03/25/25 10:00 04/02/25 07:47 100 MLS/HR Diagnostic Test (Pha) 1 strip Q6HR 03/26/25 12:00 04/02/25 05:05 1 STRIP Insulin Human Regular FOLLOW SLIDING SCALE Q6HR SC 03/26/25 12:00 04/02/25 05:05 4 UNITS Dextrose 50 ml UD IV 03/26/25 09:30 Metronidazole 100 ml @ 100 mls/hr Q8HR IV 03/26/25 22:00 04/02/25 05:05 100 MLS/HR Hydralazine HCl 10 mg Q6HP PRN IV 03/27/25 02:00 04/02/25 05:04 10 MG Lactulose 30 ml TID NG 03/27/25 06:00 03/31/25 05:46 30 ML Cefepime HCl 50 ml @ 12.5 mls/hr Q12HR IV 03/27/25 22:00 04/02/25 07:48 12.5 MLS/HR Lactated Ringer's 1,000 ml @ 50 mls/hr Q20H IV 03/29/25 16:15 04/01/25 21:41 50 MLS/HR Norepinephrine Bitartrate 250 ml @ 3.75 mls/hr Q24H IV 03/29/25 16:15 04/01/25 17:06 11.25 MLS/HR Fat Emulsion Intravenous 50 ml/ Sodium Acetate 20 meq/Sodium Phosphate 10 meq/ Potassium Acetate 30 meq/Magnesium Sulfate 16 meq/ Multivitamins 10 ml/Insulin Human Regular 7 units/ Amino Acids/ Dextrose/Purified Water 1,391.57 ml @ 57 mls/hr [id number] IV 04/01/25 22:00 04/02/25 21:59 04/01/25 22:18 57 MLS/HR Fat Emulsion Intravenous 100 ml/Potassium Acetate 20 meq/ Potassium Phosphate 11 meq/ Magnesium Sulfate 16 meq/ Multivitamins 10 ml/Insulin Human Regular 5 units/ Amino Acids/ Dextrose/Purified Water 1,226.55 ml @ 51 mls/hr Q24H3M IV 04/02/25 22:00 04/03/25 21:59 Examination General: AOx2, jaundiced, Ill-appearing, lethargic, minimally responsive, no acute agitation HEENT: Normocephalic, atraumatic, normal reactive pupils, EOM intact, icteric sclera, dry mucus membranes , Opens eyes to painful stimuli, does not follow commands, moves extremities minimally, no focal deficits noted Respiratory/pulmonary: Bilateral chest expansion, no pain on palpation of chest wall, clear lungs bilaterally, vesicular murmurs present in almost all lung sutton, no crackles Cardiovascular: Normal RRR, normal S1 and S2, no murmurs, Tachycardic, regular rhythm; pulses weak; Abdomen: Abdomen nondistended, presence of ostomy bags in mid right to lower quadrant, CARMEN drain located on left abdomen, active bowel sounds, soft, pain to palpation in areas surrounding ostomy, no palpable masses. : Presence of Leach Extremities: No deformities, there is no peripheral edema present at the lower extremities, normal pulses Skin: Jaundiced, as mentioned above, presence of dry eschars on back of bilateral heels Neurological: Intact cranial nerves with no focal neurologic deficits laboratory and microbiology Laboratory Tests 04/02/25 02:40 Test 04/02/25 02:40 Range/Units Serum Glucose 148 H 74-106 mg/dL Microbiology Date/Time Source Procedure Growth Status 03/30/25 03:00 Urine - Leach [place] Urine Culture - Preliminary Resulted 03/29/25 04:20 Blood Blood Culture - Preliminary NO GROWTH AFTER 72 HOURS OF INCUBATION. Resulted 03/20/25 08:12 Peritoneal Fluid Gram Stain - Final Complete 03/20/25 08:12 Peritoneal Fluid Anaerobic Culture - Final Complete 03/20/25 08:12 Aerobic Culture - Final Enterococcus faecium - VRE Complete 02/25/25 11:48 Sputum Gram Stain - Final Complete 02/25/25 11:48 Sputum Respiratory Culture - Final Complete 01/13/25 17:10 Nose MRSA Screen - Final Complete Problem List/Assessment/Plan Problem List/Assessment/Plan Neurology #Chronic Ischemic Changes and Cortical Atrophy - Head CT: 01/28/2025: Chronic sequelae of microangiopathy and atrophic cortical focal volume loss. Cardiovascular #Septic Shock secondary to peritonitis due to hollow viscus perforation * Septic shock with refractory hypotension, Altered mentation, metabolic acidosis, leukocytosis * Continue Levophed titrated to MAP > 65 * Evaluate for arrhythmias given tachycardia Trend lactate Continue LR @50ml/hr #Chronic diastolic heart failure without exacerbation - Echocardiogram: 01/15/2025: Normal LVEF 65%, mild LVH, mild LV diastolic dysfunction #Paroxysmal Afib - Currently not on therapeutic Lovenox due to low hemoglobin - CHADsVasc 5 # Hypertension - Monitor - Hydralazine 10 mg IV PRN Respiratory # Acute hypoxic respiratory failure secondary to bilateral pleural effusion/ pneumonia # Ventilator -Intubated () -Extubated (02/07/2025) -Reintubation (02/25/2025) -Extubation ( 02/28/2025) -Due to observed increased work of breathing, chest xray was ordered which shows no significant change from the previous study. Stable support devices. Persistent heart failure pattern. -Sputum culture 01/29: Presumptive Zoe albicans, Sputum culture from 02/25: negative * If further decline: escalation to high-flow nasal cannula or non-invasive ventilation, HFNC if worsening * Strict aspiration precautions Orders: * O2 via NC, titrate for SpO2 > 92% Patient is currently on 2 L/min nasal cannula with SpO2 persistently 98 percent and only mildmoderate work of breathing (intermittent gasping but no sustained hypoxemia or cyanosis). An ABG obtained from an edematous upper extremity (with known bilateral upper extremity DVT and significant soft-tissue edema) showed pH 7.254, pCO2 37.8 mmHg, pO2 42.2 mmHg, HC03 16.4 mEq/L, and reported O2 saturation ~66%. These ABG oxygenation values are physiologically inconsistent with the concurrently measured pulse oximetry of 99% on 2 L/min NC and are most consistent with a venous or mixed venous sample rather than true arterial blood, given poor upper extremity perfusion and extensive edema/DVT. For this reason, the ABG was used to guide assessment of acidbase status (metabolic acidosis) but not used to guide oxygenation changes. As the patient maintained adequate SpO2 on low-flow nasal cannula without persistent severe respiratory distress, escalation to high-flow nasal cannula or non-invasive ventilation was not undertaken at this time. Oxygen therapy will continue to be titrated based on clinical status and continuous pulse oximetry, and repeat blood gases will be obtained from a more reliable arterial site if clinically indicated. Will escalate to high-flow nasal cannula or non-invasive ventilation, HFNC if worsening clinically or Appropriate ABG results and spo2 shows true hypoxia. GI # Acute bacterial peritonitis due to small bowel perforation secondary to perforated diverticulitis, very poor prognosis -CT abdomen: 01/12/2025: Free intraperitoneal air likely from visceral perforation of a left abdominal small bowel loop. Circumferential wall thickening of a left abdominal small bowel loop with more focal locules of gas adjacent to this thickened small bowel loop . There may be sinus tracts or a fistulous network between adjacent small bowel loops in the left abdomen with image numbers above. Mild ascites and diffuse soft tissue stranding of the mesentery # Transaminitis secondary to shock # Anion gap metabolic acidosis due to bowel ischemia and lactic acidosis # Elevated bilirubin secondary to TPN - Exploratory laparotomy 01/13/2025: Resection of perforated bowel enteroenterostomy - Exploratory laparotomy 02/04/2025: Resection near previous resection - Exploratory laparotomy 02/25/2025: Resection of distal ileum - Exploratory laparotomy 03/20/2025:Very extensive lysis of adhesions, repair of 3 ischemic perforations of small bowel, evacuation of multiple interloop abscesses, revision of ileostomy. - Exploratory laparotomy 03/24/2025: - IR-guided pigtail drain placed; drained 50 cc purulent fluid. - CARMEN drains placed in 4 quadrants initially and now patient has only 1 CARMEN drain - Peritoneal fluid (01/13): E. coli, Klebsiella pneumoniae (sensitive to meropenem). - Peritoneal fluid (02/17): E. coli, Stenotrophomonas maltophilia. - Aspirate culture: (03/02): VRE - Aspirate culture :(04/02) : VRE - Blood cultures (03/26): Bacteroides caccae - Blood cultures (03/28): Negative at 24 hours - Micafungin (03/17), Daptomycin (03/24) cefepime, Flagyl added (03/26) - Levofloxacin, Flagyl (02/03); Vancomycin and Meropenem (); Meropenem (); Vancomycin (), Bactrim stopped (03/08)8) - Per surgery: The patient is currently not a candidate for continued surgical intervention, they will continue to watch the drains and will lower rate of TPN - Patient is NPO, currently with NG tube #Acute Liver Failure - TPN will be decreased # Peptic ulcer prophylaxis -Pantoprazole 40 mg IV daily # Leach catheter Nephrology -#ISRRAEL likely hemodynamically mediated/VMN - Resolved - Monitor renal function - Avoid nephrotoxix drugs #Hypokalemia - Monitor - Replete as needed #Hyperkalemia - Monitor #Hyponatremia, resolved #Hypophosphatemia - Replete as needed Infectious disease # Septic shock secondary to acute bacterial peritonitis due to small bowel perforation secondary to perforated diverticulitis - Exploratory laparotomy 01/13/2025: Resection of perforated bowel enteroenterostomy - Exploratory laparotomy 02/04/2025: Resection near previous resection - Exploratory laparotomy 02/25/2025: Resection of distal ileum - Exploratory laparotomy 03/20/2025:Very extensive lysis of adhesions, repair of 3 ischemic perforations of small bowel, evacuation of multiple interloop abscesses, revision of ileostomy. - Exploratory laparotomy 03/24/2025: - IR-guided pigtail drain placed; drained 50 cc purulent fluid. - CARMEN drains placed in 4 quadrants initially and now patient has only 1 CARMEN drain - Peritoneal fluid (01/13): E. coli, Klebsiella pneumoniae (sensitive to meropenem). - Peritoneal fluid (02/17): E. coli, Stenotrophomonas maltophilia. 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 #Acute DVT of right upper extremity - Venous duplex US of right upper extremity: partial thrombus in right internal jugular ad cephalic vein - Left upper extremity Venous Duplex US: thrombus in left brachial vein and bilateral cephalic veins - Hold anticoagulation at this time Endocrine # Hypothyroidism - TSH previously 42 --> 0.90 - Levothyroxine 50 mcg, held at this time # Type 2 Diabetes Mellitus, HbA1c: 8.1 - Sliding scale insulin Nutrition # Severe protein malnutrition # TPN Lines Airway: Intubated on 01/14, extubated on 02/07, reintubated on 02/25 extubated 02/28 Vascular Access: PICC line placed in right upper thigh on 01/26. Drips: Levophed 4 mcg/min Urinary: Leach catheter placed on 01/14, exchanged on 02/14. Exchanged on 03/17. CARMEN drains in 1 quadrant. Ostomy bag in lower right abdominal quadrant PUD prophylaxis: Protonix DVT prophylaxis: Held at this time due to anemia Physical therapy ordered Critical care time 79 minutes excluding procedure. Code status discussed greater than 20 minutes: DNR With LEVOPHED. Family at bedside explained about the condition of the patient SOCIAL / GOALS OF CARE * Family updated today * Son notified of poor prognosis and ongoing deterioration * Family considering COMFORT ONLY MEASURES; awaiting final decision * Maintain DNR and With LEVOPHED only. Plan discussed with Dr. Pino Plan discussed with: Son, Other (RN) My Orders My Orders Orders - YUNIER CORRAL RESIDENT Procedure Category Date Status Time Lactic Acid W/ Reflex LAB 04/02/25 Logged Order 13:06 Complete Blood Count LAB 04/03/25 Verified 04:00 Lactic Acid W/ Reflex LAB 04/03/25 Verified Order 04:00 Abg W/ Co-Ox RT 04/03/25 Transmitted 04:00 Dietary Evaluation Review Comments: Nutrition Recommendation: 1) TPN to meet at least 75% estimated needs within 7 days 2) Monitor NPO status, lab values, wt trend, I/O Expected Outcomes/Goals: To meet >75% estimated needs Lab values to improve Fu 2-3 days Is there a minimum of two crit: Yes CC Plasma Assessment Blood Product Administration S: [id number] YUNIER CORRAL RESIDENT Apr 02, 2025 13:20
--- NOTE | 2025-04-02 13:52 | DVHPN2 ---
Progress Note Date Seen: Apr 02, 2025 Has the PT tested + for MRSA If YES, has PT been informed?: No Medical Necessity Reason Pt with a Central, PICC or Fol: Yes The following are medically ne: PICC Line, Leach Catheter Reason for leach catheter: Strict I&O Objective vital signs Vital Sign Date Time Temp Pulse Resp B/P (MAP) Pulse Ox O2 Delivery O2 Flow Rate FiO2 04/02/25 12:00 119 04/02/25 12:00 35 92 Nasal Cannula* 2 28 04/02/25 08:41 148/128 04/02/25 08:00 97.4 97.4 Total Intake and Output 04/01/25 04/01/25 04/02/25 15:00 23:00 07:00 Intake Total 1261.0 ml 1115.50 ml 1046.00 ml Output Total 555 ml 735 ml Balance 1261.0 ml 560.50 ml 311.00 ml medications Current Medications Medications Dose Ordered Sig/Isaura Route Start Time Stop Time Status Last Admin Dose Admin Cefazolin Sodium 50 ml @ 100 mls/hr Q8HR IV 01/13/25 14:00 UNV Vasopressin 20 units/Sodium Chloride 100 ml @ 9 mls/hr Q11H7M IV 01/13/25 18:45 UNV Potassium Chloride 100 ml @ 50 mls/hr Q2H IV 01/16/25 12:45 01/16/25 18:44 UNV Vancomycin HCl 100 ml @ 100 mls/hr DAILY@1200 IV 01/20/25 12:00 UNV Amino Acids 0 ml @ 0 mls/hr PER PHARMACY IV 02/13/25 10:45 Ondansetron HCl 4 mg Q4HPRN PRN IV 02/21/25 09:30 03/12/25 17:08 4 MG Multi-Ingredient Ointment 1 applic DAILY TOP 02/23/25 10:00 04/02/25 07:47 1 APPLIC Diagnostic Test (Pha) 1 strip Q4HR 02/26/25 16:00 Cancel Diagnostic Test (Pha) 1 strip IQ4HR 02/26/25 16:00 UNV Dextrose 50 ml UD PRN IV 02/26/25 16:00 UNV Pantoprazole Sodium 40 mg BID IV 03/08/25 22:00 04/02/25 07:47 40 MG Lidocaine 1 patch DAILY TOP 03/12/25 10:00 04/02/25 07:47 1 PATCH Acetaminophen 650 mg Q6HP PRN AZ 03/18/25 10:00 03/26/25 08:08 650 MG Phenylephrine HCl 80 mg/Sodium Chloride 250 ml @ 7.5 mls/hr Q24H IV 03/23/25 22:45 UNV Hydromorphone HCl 0.5 mg Q3HP PRN IV 03/24/25 12:30 04/02/25 08:41 0.5 MG Daptomycin / Sodium Chloride 50 ml @ 100 mls/hr DAILY IV 03/25/25 10:00 UNV Daptomycin 250 mg/ Sodium Chloride 50 ml @ 100 mls/hr DAILY IV 03/25/25 10:00 04/02/25 07:47 100 MLS/HR Diagnostic Test (Pha) 1 strip Q6HR 03/26/25 12:00 04/02/25 12:00 1 STRIP Insulin Human Regular FOLLOW SLIDING SCALE Q6HR SC 03/26/25 12:00 04/02/25 05:05 4 UNITS Dextrose 50 ml UD IV 03/26/25 09:30 Metronidazole 100 ml @ 100 mls/hr Q8HR IV 03/26/25 22:00 04/02/25 05:05 100 MLS/HR Hydralazine HCl 10 mg Q6HP PRN IV 03/27/25 02:00 04/02/25 05:04 10 MG Lactulose 30 ml TID NG 03/27/25 06:00 03/31/25 05:46 30 ML Cefepime HCl 50 ml @ 12.5 mls/hr Q12HR IV 03/27/25 22:00 04/02/25 07:48 12.5 MLS/HR Lactated Ringer's 1,000 ml @ 50 mls/hr Q20H IV 03/29/25 16:15 04/01/25 21:41 50 MLS/HR Norepinephrine Bitartrate 250 ml @ 3.75 mls/hr Q24H IV 03/29/25 16:15 04/01/25 17:06 11.25 MLS/HR Fat Emulsion Intravenous 50 ml/ Sodium Acetate 20 meq/Sodium Phosphate 10 meq/ Potassium Acetate 30 meq/Magnesium Sulfate 16 meq/ Multivitamins 10 ml/Insulin Human Regular 7 units/ Amino Acids/ Dextrose/Purified Water 1,391.57 ml @ 57 mls/hr [id number] IV 04/01/25 22:00 04/02/25 21:59 04/01/25 22:18 57 MLS/HR Fat Emulsion Intravenous 100 ml/Potassium Acetate 20 meq/ Potassium Phosphate 11 meq/ Magnesium Sulfate 16 meq/ Multivitamins 10 ml/Insulin Human Regular 5 units/ Amino Acids/ Dextrose/Purified Water 1,226.55 ml @ 51 mls/hr Q24H3M IV 04/02/25 22:00 04/03/25 21:59 laboratory and microbiology Laboratory Tests 04/02/25 02:40 Test 04/02/25 02:40 Range/Units Serum Glucose 148 H 74-106 mg/dL Microbiology Date/Time Source Procedure Growth Status 03/30/25 03:00 Urine - [place] Urine Culture - Preliminary Resulted 03/29/25 04:20 Blood Blood Culture - Preliminary NO GROWTH AFTER 72 HOURS OF INCUBATION. Resulted 03/20/25 08:12 Peritoneal Fluid Gram Stain - Final Complete 03/20/25 08:12 Peritoneal Fluid Anaerobic Culture - Final Complete 03/20/25 08:12 Aerobic Culture - Final Enterococcus faecium - VRE Complete 02/25/25 11:48 Sputum Gram Stain - Final Complete 02/25/25 11:48 Sputum Respiratory Culture - Final Complete 01/13/25 17:10 Nose MRSA Screen - Final Complete Problem List/Assessment/Plan Problem List/Assessment/Plan REMAINS EXTUBATED AFEBRILE HEMODYNAMICALLY LABILE ON INCREASING VASOPRESSOR SUPPORT LESS RESPONSIVE MAINTAINING SATURATION BUT DIFFICULTY BREATHING ABD SOFT WOUND DRAINAGE LESS ILEOSTOMY VIABLE FUNCTION SAME DRAIN 50 CC BROWN CBC MILD ELEVATION LFT ELEVATION CONTINUE CLOSE OBSERVATION AND SUPPORTIVE CARE REMAINS HIGH RISK FOR SURGERY FAMILY AND NURSE AT BEDSIDE DNR AND COMFORT CARE OPTIONS BEING CONSIDERED BY FAMILY Plan discussed with: Other Dietary Evaluation Review Comments: Nutrition Recommendation: 1) TPN to meet at least 75% estimated needs within 7 days 2) Monitor NPO status, lab values, wt trend, I/O Expected Outcomes/Goals: To meet >75% estimated needs Lab values to improve Fu 2-3 days Is there a minimum of two crit: Yes CC Plasma Assessment Blood Product Administration S: [id number] MISTY RODRÍGUEZ MD Apr 02, 2025 13:52
[2025-04-02 15:02] LABS: Base Excess -10.0 mmol/L (-2.0-3.0)
[2025-04-02 15:37] LABS: Lactic Acid w/Reflex 3.0 mmol/L (0.4-2.0)
--- NOTE | 2025-04-02 17:53 | DVHINCON2 ---
DATE OF CONSULTATION: 03/29/2025 HISTORY OF PRESENT ILLNESS: As per request by family, she has had care to be rendered by Dr. Christy as a surgeon and other physicians as well and she is coming in with complaints of abdominal pain. I was asked to see her at the request of family, Dr. Reed, and Dr. Christy for a second opinion and based upon the review of her chart, she is 80 years old. She was complaining of abdominal pain at the time of admission with a history of constipation and history of falling on her side on 01/06/2025 and based upon her CT scan on 01/12/2025, she was found to have bowel perforation and was taken to surgery emergently whereby she had the exploratory laparotomy, bowel resection, and anastomosis. Since then, she has had recurrent bowel perforations and has been taken to surgery 4 times. 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 Even though she had been extubated and been on a diet as well and having bowel activity, she continued to improve, however, and she was also on a clear liquid diet and the repeat Gastrografin study and CT scan indicated possible colonic fistula and a possible leak. Then, she was considered for surgery again and repeat E-lap on 02/25/2025 was done and was found to have multiple small bowel and large bowel perforations, etiology being unclear, possibly ischemia, possible contamination from the leakage, and possible bowel obstruction secondary to ileus as well. She underwent repeat bowel resection in the distal ileum and colon resection from cecum to the mid descending colon. This also eliminated the possibility of a colojejunal fistula and a right lower quadrant ileostomy was also created and she continued to improve with the viable ileostomy, but the output was minimal, so the functionality of the ileostomy was not adequate, and then on 03/05/2025 was another possibility of a new area of leak in the proximal jejunum that was managed conservatively as the risk of repeat surgery remaining high and she slowly was improving with low ileostomy output, however, unfortunately, on 03/29/2025, there was increasing possibility of recurrent leak with a possible enterocutaneous fistula and then she was taken to surgery on 03/20/2025. She underwent repair of 3 ischemic small bowel segments and the ileostomy revision to facilitate ileostomy function and to prevent this from happening again. I was asked to see her by family and Dr. Reed and Dr. Christy as mentioned following this. Since then, she has been managed in the ICU with close observation. I had a detailed discussion with the family and all their questions were answered. PHYSICAL EXAMINATION: GENERAL: On examination, she was afebrile with hemodynamic lability. On examination, she was awake. She was somewhat responsive and also was having a conversation with the family. VITAL SIGNS: Vital signs were relatively stable. HEENT: She was on minimal vasopressor support and was extubated also. She had an NG tube in place. Mildly pale. No cyanosis or jaundice. NECK: Supple and nontender with no thyromegaly or lymphadenopathy. CHEST AND LUNGS: Relatively clear. ABDOMEN: Soft. She had a midline wound that was draining brownish fluid, possibility of a recurrent enterocutaneous fistula. She had a functional ileostomy that was viable as well and she has a drainage tube that was draining also dark brown fluid. The drainage from the abdominal wound was 350 mL of bile stain and the drain was 100 mL of yellow-brown and the ileostomy as I mentioned was viable and functional, 150 mL was being drained out. Then, she was also weaned off from vasopressors and like I mentioned, she was awake and responding. Her white blood cell count was within normal limits. The LFTs were trending down and the TPN had been adjusted and the plan was to continue close observation. She being high risk for surgery with potential for worsening complications. Surgical and nonsurgical options were discussed with the family. All their questions were answered. The nurses at the bedside and family agrees with the plan and ongoing close observation. If surgery has to be considered, then it will be very high risk surgery and they understood the potential for complications and cardiac and respiratory events happening. So based upon that, the patient will be closely monitored and family will be deciding on possibility of surgery if indicated and considered and possibility of comfort care also was being considered by the family. MD ZACHARY Rodrigez/DIOMEDES/SHANELLE TID: [id number] RECEIPT: [id number] cc: Jamin Reed MD
[2025-04-02] MEDS: HYDROmorphone HCL 2 MG/ML VL/or syr IV PRN (21:10)
[2025-04-02 22:43] LABS: Base Excess -8.4 mmol/L (-2.0-3.0)
[2025-04-02] MEDS: TPN PER PHARMACY IV NR (23:13)
--- NOTE | 2025-04-02 23:21 | DVHPN2 ---
Consult Progress Note Objective vital signs Vital Sign Date Time Temp Pulse Resp B/P (MAP) Pulse Ox O2 Delivery O2 Flow Rate FiO2 04/02/25 21:40 133 33 92/48 04/02/25 21:15 98 60.0 30 04/02/25 18:25 Nasal Cannula* 04/02/25 16:01 97.8 97.8 Total Intake and Output 04/01/25 04/01/25 04/02/25 15:00 23:00 07:00 Intake Total 1261.0 ml 1115.50 ml 1046.00 ml Output Total 555 ml 735 ml Balance 1261.0 ml 560.50 ml 311.00 ml medications Current Medications Medications Dose Ordered Sig/Isaura Route Start Time Stop Time Status Last Admin Dose Admin Cefazolin Sodium 50 ml @ 100 mls/hr Q8HR IV 01/13/25 14:00 UNV Vasopressin 20 units/Sodium Chloride 100 ml @ 9 mls/hr Q11H7M IV 01/13/25 18:45 UNV Potassium Chloride 100 ml @ 50 mls/hr Q2H IV 01/16/25 12:45 01/16/25 18:44 UNV Vancomycin HCl 100 ml @ 100 mls/hr DAILY@1200 IV 01/20/25 12:00 UNV Amino Acids 0 ml @ 0 mls/hr PER PHARMACY IV 02/13/25 10:45 Ondansetron HCl 4 mg Q4HPRN PRN IV 02/21/25 09:30 03/12/25 17:08 4 MG Multi-Ingredient Ointment 1 applic DAILY TOP 02/23/25 10:00 04/02/25 07:47 1 APPLIC Diagnostic Test (Pha) 1 strip Q4HR 02/26/25 16:00 Cancel Diagnostic Test (Pha) 1 strip IQ4HR 02/26/25 16:00 UNV Dextrose 50 ml UD PRN IV 02/26/25 16:00 UNV Pantoprazole Sodium 40 mg BID IV 03/08/25 22:00 04/02/25 23:14 40 MG Lidocaine 1 patch DAILY TOP 03/12/25 10:00 04/02/25 07:47 1 PATCH Acetaminophen 650 mg Q6HP PRN AZ 03/18/25 10:00 03/26/25 08:08 650 MG Phenylephrine HCl 80 mg/Sodium Chloride 250 ml @ 7.5 mls/hr Q24H IV 03/23/25 22:45 UNV Daptomycin / Sodium Chloride 50 ml @ 100 mls/hr DAILY IV 03/25/25 10:00 UNV Daptomycin 250 mg/ Sodium Chloride 50 ml @ 100 mls/hr DAILY IV 03/25/25 10:00 04/02/25 07:47 100 MLS/HR Diagnostic Test (Pha) 1 strip Q6HR 03/26/25 12:00 04/02/25 17:21 1 STRIP Insulin Human Regular FOLLOW SLIDING SCALE Q6HR SC 03/26/25 12:00 04/02/25 17:38 4 UNITS Dextrose 50 ml UD IV 03/26/25 09:30 Metronidazole 100 ml @ 100 mls/hr Q8HR IV 03/26/25 22:00 04/02/25 23:13 100 MLS/HR Hydralazine HCl 10 mg Q6HP PRN IV 03/27/25 02:00 04/02/25 05:04 10 MG Lactulose 30 ml TID NG 03/27/25 06:00 03/31/25 05:46 30 ML Cefepime HCl 50 ml @ 12.5 mls/hr Q12HR IV 03/27/25 22:00 04/02/25 22:00 12.5 MLS/HR Lactated Ringer's 1,000 ml @ 50 mls/hr Q20H IV 03/29/25 16:15 04/02/25 17:00 50 MLS/HR Norepinephrine Bitartrate 250 ml @ 3.75 mls/hr Q24H IV 03/29/25 16:15 04/02/25 16:43 22.5 MLS/HR Fat Emulsion Intravenous 100 ml/Potassium Acetate 20 meq/ Potassium Phosphate 11 meq/ Magnesium Sulfate 16 meq/ Multivitamins 10 ml/Insulin Human Regular 5 units/ Amino Acids/ Dextrose/Purified Water 1,226.55 ml @ 51 mls/hr Q24H3M IV 04/02/25 22:00 04/03/25 21:59 04/02/25 23:13 51 MLS/HR Hydromorphone HCl 0.5 mg Q3HPRN PRN IV 04/02/25 21:00 04/02/25 21:10 0.5 MG laboratory and microbiology Laboratory Tests 04/02/25 02:40 Test 04/02/25 02:40 Range/Units Serum Glucose 148 H 74-106 mg/dL Problem List/Assessment/Plan Problem List/Assessment/Plan ASSESSMENT AND PLAN: ID Problem List: -Perforated small bowel with persistent leak; intra-abdominal sepsis; status post multiple exploratory laparotomies with adhesiolysis and enteroenterostomies; CARMEN drains in place -Septic shock; acute hypoxic respiratory failure -Acute kidney injury (ISRRAEL) with acute tubular necrosis (ATN) improved -Transaminitis likely ischemic hepatitis improving -Thrombocytopenia (worsened ~01/19 while on vancomycin/fluconazole) -Diabetes mellitus -On apixaban (Eliquis) for last 2 weeks indication unclear -Past surgical history: section; hernia repair Assessment This is a 10 y.o. female with diabetes and prior and hernia repair, who presented with 4 days of sharp lower abdominal pain. Initial ED evaluation notable for CT A/P demonstrating free intraperitoneal air and small bowel inflammatory changes concerning for perforated viscus with mild ascites and mesenteric stranding. She underwent an exploratory laparotomy on 01/13 with lysis of adhesions, small bowel enteroenterostomy, and placement of two Mendel- Steele drains; peritoneal cultures at that time grew Escherichia coli and Klebsiella pneumoniae (both ceftriaxone susceptible). Postoperatively she required norepinephrine (Levophed) and broad-spectrum antibiotics. Course complicated by recurrent sepsis and suspected enterocutaneous/peritoneal contamination, requiring re-exploration on 02/03 with evacuation of copious intra-abdominal infection/abscesses and revision of anastomosis; intraoperative cultures reportedly not obtained. A drain sample dated 01/28 grew Stenotrophomonas (TMP-SMX susceptible). Ongoing respiratory issues prompted empiric vancomycin, later discontinued when sputum grew only Nancy albicans. A third operation on 02/25 for persistent feculent leakage and peritonitis showed a distal ileal perforation proximal to adhesional obstruction; this was resected with primary anastomosis, and further adhesiolysis performed. Upper GI series on 03/04 demonstrates contrast extravasation from proximal small bowel (likely left jejunum) near a surgical drain, consistent with a persistent leak that appears to be adequately drained clinically. She has been afebrile since 03/03, is extubated to 2 L NC, hemodynamically supported on low-dose norepinephrine, and clinically stable abdominally (nontender). LFTs that had peaked during ischemic episodes are improving. Renal function has improved from admission. Cultures/culture interpretation: Earlier peritoneal cultures with E. coli and Klebsiella; drain fluid with Stenotrophomonas (01/28) and subsequent peritoneal/aspirate samples showing E. coli and vancomycin-resistant Enterococcus (VRE) on 03/02; one of four blood culture bottles (03/07) positive for Staphylococcus epidermidis, felt to be contaminant. Given the persistent bowel leak with external drainage and the timing/source of cultures, current drain cultures are likely colonization and may not represent true invasive pathogens. Antimicrobial course (per transcript): initial piperacillin-tazobactam (Zosyn) + vancomycin through 01/19; vancomycin stopped for suspected contribution to thrombocytopenia; courses including meropenem and micafungin through 01/31; then levofloxacin + metronidazole + micafungin through 02/03; meropenem continued thereafter with vancomycin re-trial for presumed pneumonia (later stopped by 02/21 after Nancy-only sputum); micafungin added/continued; trimethoprim- sulfamethoxazole (Bactrim) started 02/21 for Stenotrophomonas coverage; transcript also notes meropenem and rifampin continued until today. 03/16: sp NGT removal, stoma and drain with output. off levophed 03/18: new levophed needs, intermittently febrile, drain culture w e.coli and nancy: meropenem and micafungin restarted 03/20: sp * Exploratory laparotomy. * Very extensive lysis of adhesions. * Repair of 3 ischemic perforations of small bowel. * Evacuation of multiple interloop abscesses. * Revision of ileostomy. 03/24: VRE growth on operative culture 03/26: persistent drain output 03/27: rising lactic acid, ceftriaxone switched to cefepime, anaerobic growth on blood culture 03/28: micafungin stopped, ileostomy with good output, on tpn, off pressors, bacteroides on blood culture 03/30: repeat blood culture without growth Plan: - anaerobic bacteremia: - repeat blood culture, continue flagyl -Intra-abdominal sepsis with persistent small bowel leak: -Source control: continue to ensure CARMEN drains are functioning; avoid routine re- culturing from drains as results likely represent colonization and may mislead management. -sp 03/20 exlap, repair of bowel leak -will fu on pending operative cultures -Antibiotics: - continue daptomycin for VRE coverage -De-escalate broad coverage toward enteric pathogens (E. coli/Klebsiella) and away from agents targeting colonizers. -continue cefepime -Antifungal: continue micafungin for now, however suspect this two may be a colonizer -Duration: continue until leak is resolved or clearly contained with clinical improvement. -Transition to oral therapy when patient can tolerate and when clinically appropriate. -Respiratory: extubated to 2 L NC; supportive care; chest radiograph with persistent interstitial opacities, left basilar consolidation, small pleural effusions monitor clinically. -Renal: ISRRAEL/ATN improved (Cr now ~0.99); continue renal dosing of antimicrobials as indicated; monitor BMP. -Hepatic: transaminases improving from prior ischemic hepatitis; trend LFTs. -Hematology: platelet count currently ~118 K; monitor CBC. -Anticoagulation: on apixaban (Eliquis) for unclear indication per history; reconcile indication and risk/benefit with primary/surgical teams in context of recent surgeries/leak. -Nutrition/NG: continue NG suction per surgery; nutrition per surgical/ICU teams. -Lines/Drains: maintain CARMEN drains; monitor output and character; avoid routine drain cultures. -Follow-up: ID will continue to follow clinically; adjust therapy as new data emerge. Authorized and Performed by: sheron pedraza Total critical care time: Approximately 56 minutes Due to a high probability of clinically significant, life threatening deterioration, the patient required my highest level of preparedness to intervene emergently and I personally spent this critical care time directly and personally managing the patient. This critical care time included obtaining a history; examining the patient; pulse oximetry; ordering and review of studies; arranging urgent treatment with development of a management plan; evaluation of patient's response to treatment; frequent reassessment; and, discussions with other providers. This critical care time was performed to assess and manage the high probability of imminent, life-threatening deterioration that could result in multi-organ failure. It was exclusive of separately billable procedures and treating other patients and teaching time. \ Physical Exam: General: NAD Neck: Supple. No masses. HEENT: PERRL. Normal lids and conjunctiva. Moist mucous membranes. Oropharynx without lesions, exudates or excessive erythema. Normal appearance of the external aspects of the nose and ears. Heart: Regular rhythm, normal rate. No murmur. No lower extremity edema. Lungs: Normal respiratory effort. Clear to auscultation bilaterally. No wheezes. No crackles. Abdomen: Soft. Non-tender. Non-distended. No masses or abdominal hernia. drain and stoma functional . Msk: No digital cyanosis. Normal strength and tone in all 4 limbs Skin: Warm and dry, no rashes. Neuro: Alert. No facial droop or slurred speech. Extra-ocular movements intact. Sensation intact to soft touch in all 4 limbs. Psych: Appropriate mood. Full affect. Oriented to person, place, time, and situation. Dietary Evaluation Review Comments: Nutrition Recommendation: 1) TPN to meet at least 75% estimated needs within 7 days 2) Monitor NPO status, lab values, wt trend, I/O Expected Outcomes/Goals: To meet >75% estimated needs Lab values to improve Fu 2-3 days Is there a minimum of two crit: Yes CC Plasma Assessment Blood Product Administration S: [id number] SHERON PEDRAZA MD Apr 02, 2025 23:21
[2025-04-03] VITALS (80 sets, daily range): BP systolic 53–168; BP diastolic 14–102; PULSE 95–127; RESP 11–40; TEMP 97–98; O2SAT 88–99
[2025-04-03 03:24] LABS: Hematocrit 22.9 % (36.0-46.0); Hemoglobin 7.4 g/dL (12.2-16.2)
[2025-04-03 03:26] LABS: Mean Corpuscular Hemoglobin 35.6 pg (28.0-32.0); Mean Corpuscular Volume 109.8 fL (80.0-100.0); Nucleated Red Blood Cells % 1.4 %
[2025-04-03 03:57] LABS: Lactic Acid w/Reflex 4.7 mmol/L (0.4-2.0)
[2025-04-03 04:00] LABS: Alkaline Phosphatase 109 U/L (46-116); Anion Gap 13 (5-15); BUN/Creatinine Ratio 44.4 (10.0-20.0); Calcium 9.2 mg/dL (8.7-10.4); Magnesium 2.2 mg/dL (1.6-2.6); Potassium 4.2 mmol/L (3.5-5.1); Sodium 137 mmol/L (136-145)
[2025-04-03 04:05] LABS: Alanine Aminotransferase 49 U/L (7-40); Albumin 1.1 g/dL (3.2-4.8); Bilirubin, Total 6.5 mg/dL (0.2-1.0); Blood Urea Nitrogen 64 mg/dL (9-23); Carbon Dioxide 15 mmol/L (20-31); Chloride 109 mmol/L (98-107); Glucose 291 mg/dL (74-106); Total Protein 3.7 g/dL (5.7-8.2)
[2025-04-03 05:48] LABS: Anisocytosis Slight; Macrocytosis Moderate
[2025-04-03 05:49] LABS: Polychromasia Slight
--- NOTE | 2025-04-03 05:53 | DVH ---
CHEST RADIOGRAPH Indication: change in resp status, assess Technique: Single frontal view of the chest was obtained COMPARISON: XY CHEST XRAY 1 VIEW on DOS: 03/28/25, XY CHEST PORTABLE on DOS: 03/27/25, XY CHEST PORTABLE on DOS: 03/26/25, XY CHEST XRAY 1 VIEW on DOS: 03/24/25, XY CHEST XRAY 1 VIEW on DOS: 03/23/25 FINDINGS: Lines and Tubes: Right PICC in satisfactory position. Lungs: Pulmonary edema, unchanged. Pleura: No effusion.No pneumothorax. Cardiomediastinal contours: Unremarkable Bones: Unremarkable IMPRESSION: Pulmonary edema, unchanged.
[2025-04-03 08:57] LABS: Hemoglobin 7.8 g/dL (12.2-16.2)
[2025-04-03 09:00] LABS: Hematocrit 28.2 % (36.0-46.0); Mean Corpuscular Hemoglobin 35.7 pg (28.0-32.0); Mean Corpuscular Volume 128.8 fL (80.0-100.0); Nucleated Red Blood Cells % 1.3 %
[2025-04-03 09:57] LABS: Base Excess -10.9 mmol/L (-2.0-3.0)
[2025-04-03] MEDS: MORPHINE SULFATE INJ 2 MG/ml SYRG IV PRN (12:48)
[2025-04-03] MEDS: LORazepam 2MG/ML-1ML VIAL IV PRN (12:56)
[2025-04-03] MEDS: MICAFUNGIN SODIUM 100 MG in SODIUM CHL 0.9% 100 ML IV SCH (15:00)
--- NOTE | 2025-04-03 15:17 | DVHPN2 ---
Consult Progress Note Date Seen: Apr 03, 2025 Subjective Patient reports: Feels better (sp ngt removal, elevated leukocytosis and pressor needs) Objective vital signs Vital Sign Date Time Temp Pulse Resp B/P (MAP) Pulse Ox O2 Delivery O2 Flow Rate FiO2 04/03/25 13:10 97 Nasal Cannula 2.0 04/03/25 13:10 28 04/03/25 13:00 106 40 164/53 (90) 04/03/25 08:00 97.2 97.2 Total Intake and Output 04/02/25 04/02/25 04/03/25 15:00 23:00 07:00 Intake Total 1116.00 ml 392.25 ml 30 ml Output Total 405 ml 380 ml Balance 1116.00 ml -12.75 ml -350 ml medications Current Medications Medications Dose Ordered Sig/Isaura Route Start Time Stop Time Status Last Admin Dose Admin Cefazolin Sodium 50 ml @ 100 mls/hr Q8HR IV 01/13/25 14:00 UNV Vasopressin 20 units/Sodium Chloride 100 ml @ 9 mls/hr Q11H7M IV 01/13/25 18:45 UNV Potassium Chloride 100 ml @ 50 mls/hr Q2H IV 01/16/25 12:45 01/16/25 18:44 UNV Vancomycin HCl 100 ml @ 100 mls/hr DAILY@1200 IV 01/20/25 12:00 UNV Amino Acids 0 ml @ 0 mls/hr PER PHARMACY IV 02/13/25 10:45 Ondansetron HCl 4 mg Q4HPRN PRN IV 02/21/25 09:30 03/12/25 17:08 4 MG Multi-Ingredient Ointment 1 applic DAILY TOP 02/23/25 10:00 04/03/25 09:34 1 APPLIC Diagnostic Test (Pha) 1 strip Q4HR 02/26/25 16:00 Cancel Diagnostic Test (Pha) 1 strip IQ4HR 02/26/25 16:00 UNV Dextrose 50 ml UD PRN IV 02/26/25 16:00 UNV Pantoprazole Sodium 40 mg BID IV 03/08/25 22:00 04/03/25 09:34 40 MG Lidocaine 1 patch DAILY TOP 03/12/25 10:00 04/03/25 09:34 1 PATCH Acetaminophen 650 mg Q6HP PRN MO 03/18/25 10:00 03/26/25 08:08 650 MG Phenylephrine HCl 80 mg/Sodium Chloride 250 ml @ 7.5 mls/hr Q24H IV 03/23/25 22:45 UNV Daptomycin / Sodium Chloride 50 ml @ 100 mls/hr DAILY IV 03/25/25 10:00 UNV Daptomycin 250 mg/ Sodium Chloride 50 ml @ 100 mls/hr DAILY IV 03/25/25 10:00 04/03/25 09:34 100 MLS/HR Diagnostic Test (Pha) 1 strip Q6HR 03/26/25 12:00 04/03/25 06:00 1 STRIP Insulin Human Regular FOLLOW SLIDING SCALE Q6HR SC 03/26/25 12:00 04/03/25 06:00 2 UNITS Dextrose 50 ml UD IV 03/26/25 09:30 Hydralazine HCl 10 mg Q6HP PRN IV 03/27/25 02:00 04/02/25 05:04 10 MG Lactulose 30 ml TID NG 03/27/25 06:00 03/31/25 05:46 30 ML Lactated Ringer's 1,000 ml @ 50 mls/hr Q20H IV 03/29/25 16:15 04/02/25 17:00 50 MLS/HR Norepinephrine Bitartrate 250 ml @ 3.75 mls/hr Q24H IV 03/29/25 16:15 04/03/25 01:13 30 MLS/HR Fat Emulsion Intravenous 100 ml/Potassium Acetate 20 meq/ Potassium Phosphate 11 meq/ Magnesium Sulfate 16 meq/ Multivitamins 10 ml/Insulin Human Regular 5 units/ Amino Acids/ Dextrose/Purified Water 1,226.55 ml @ 51 mls/hr Q24H3M IV 04/02/25 22:00 04/03/25 21:59 04/02/25 23:13 51 MLS/HR Hydromorphone HCl 0.5 mg Q3HPRN PRN IV 04/02/25 21:00 Hold 04/03/25 09:36 0.5 MG Fat Emulsion Intravenous 100 ml/Sodium Acetate 10 meq/Potassium Acetate 20 meq/ Potassium Phosphate 11 meq/ Magnesium Sulfate 16 meq/ Multivitamins 10 ml/Insulin Human Regular 5 units/ Amino Acids/ Dextrose/Purified Water 1,231.55 ml @ 51 mls/hr Q24H9M IV 04/03/25 22:00 04/04/25 21:59 Morphine Sulfate 2 mg Q15MP PRN IV 04/03/25 12:45 04/03/25 12:48 2 MG Lorazepam 2 mg Q15MP PRN IV 04/03/25 12:45 04/03/25 12:56 2 MG Meropenem 50 ml @ 17 mls/hr Q12HR IV 04/03/25 22:00 Micafungin Sodium 100 mg/Sodium Chloride 100 ml @ 100 mls/hr DAILY IV 04/03/25 15:00 laboratory and microbiology Laboratory Tests 04/03/25 08:36 04/03/25 02:55 Test 04/03/25 02:55 Range/Units Serum Glucose 291 H 74-106 mg/dL Problem List/Assessment/Plan Problem List/Assessment/Plan ASSESSMENT AND PLAN: ID Problem List: -Perforated small bowel with persistent leak; intra-abdominal sepsis; status post multiple exploratory laparotomies with adhesiolysis and enteroenterostomies; CARMEN drains in place -Septic shock; acute hypoxic respiratory failure -Acute kidney injury (ISRRAEL) with acute tubular necrosis (ATN) improved -Transaminitis likely ischemic hepatitis improving -Thrombocytopenia (worsened ~01/19 while on vancomycin/fluconazole) -Diabetes mellitus -On apixaban (Eliquis) for last 2 weeks indication unclear -Past surgical history: section; hernia repair Assessment This is a 10 y.o. female with diabetes and prior and hernia repair, who presented with 4 days of sharp lower abdominal pain. Initial ED evaluation notable for CT A/P demonstrating free intraperitoneal air and small bowel inflammatory changes concerning for perforated viscus with mild ascites and mesenteric stranding. She underwent an exploratory laparotomy on 01/13 with lysis of adhesions, small bowel enteroenterostomy, and placement of two Mendel- Steele drains; peritoneal cultures at that time grew Escherichia coli and Klebsiella pneumoniae (both ceftriaxone susceptible). Postoperatively she required norepinephrine (Levophed) and broad-spectrum antibiotics. Course complicated by recurrent sepsis and suspected enterocutaneous/peritoneal contamination, requiring re-exploration on 02/03 with evacuation of copious intra-abdominal infection/abscesses and revision of anastomosis; intraoperative cultures reportedly not obtained. A drain sample dated 01/28 grew Stenotrophomonas (TMP-SMX susceptible). Ongoing respiratory issues prompted empiric vancomycin, later discontinued when sputum grew only Nancy albicans. A third operation on 02/25 for persistent feculent leakage and peritonitis showed a distal ileal perforation proximal to adhesional obstruction; this was resected with primary anastomosis, and further adhesiolysis performed. Upper GI series on 03/04 demonstrates contrast extravasation from proximal small bowel (likely left jejunum) near a surgical drain, consistent with a persistent leak that appears to be adequately drained clinically. She has been afebrile since 03/03, is extubated to 2 L NC, hemodynamically supported on low-dose norepinephrine, and clinically stable abdominally (nontender). LFTs that had peaked during ischemic episodes are improving. Renal function has improved from admission. Cultures/culture interpretation: Earlier peritoneal cultures with E. coli and Klebsiella; drain fluid with Stenotrophomonas (01/28) and subsequent peritoneal/aspirate samples showing E. coli and vancomycin-resistant Enterococcus (VRE) on 03/02; one of four blood culture bottles (03/07) positive for Staphylococcus epidermidis, felt to be contaminant. Given the persistent bowel leak with external drainage and the timing/source of cultures, current drain cultures are likely colonization and may not represent true invasive pathogens. Antimicrobial course (per transcript): initial piperacillin-tazobactam (Zosyn) + vancomycin through 01/19; vancomycin stopped for suspected contribution to thrombocytopenia; courses including meropenem and micafungin through 01/31; then levofloxacin + metronidazole + micafungin through 02/03; meropenem continued thereafter with vancomycin re-trial for presumed pneumonia (later stopped by 02/21 after Nancy-only sputum); micafungin added/continued; trimethoprim- sulfamethoxazole (Bactrim) started 02/21 for Stenotrophomonas coverage; transcript also notes meropenem and rifampin continued until today. 03/16: sp NGT removal, stoma and drain with output. off levophed 03/18: new levophed needs, intermittently febrile, drain culture w e.coli and nancy: meropenem and micafungin restarted 03/20: sp * Exploratory laparotomy. * Very extensive lysis of adhesions. * Repair of 3 ischemic perforations of small bowel. * Evacuation of multiple interloop abscesses. * Revision of ileostomy. 03/24: VRE growth on operative culture 03/26: persistent drain output 03/27: rising lactic acid, ceftriaxone switched to cefepime, anaerobic growth on blood culture 03/28: micafungin stopped, ileostomy with good output, on tpn, off pressors, bacteroides on blood culture 03/30: repeat blood culture without growth 04/03: lactic acid, pressors needs, leukocytosis elevated sp NGT removal. ongoing high CARMEN drain output. likely persistent bowel leak. Plan: - boarden from cefepime/flagyl to meropenem - continue daptomycin - restart micafungin given ongoing tpn use, high risk for fungemia in setting of bowel leak. -Intra-abdominal sepsis with persistent small bowel leak: -Source control: continue to ensure CARMEN drains are functioning; avoid routine re- culturing from drains as results likely represent colonization and may mislead management. -sp 03/20 exlap, repair of bowel leak -will fu on pending operative cultures -Duration: continue until leak is resolved or clearly contained with clinical improvement. -Respiratory: extubated to 2 L NC; supportive care; chest radiograph with persistent interstitial opacities, left basilar consolidation, small pleural effusions monitor clinically. -Renal: ISRRAEL/ATN improved (Cr now ~0.99); continue renal dosing of antimicrobials as indicated; monitor BMP. -Hepatic: transaminases improving from prior ischemic hepatitis; trend LFTs. -Hematology: platelet count currently ~118 K; monitor CBC. -Anticoagulation: on apixaban (Eliquis) for unclear indication per history; reconcile indication and risk/benefit with primary/surgical teams in context of recent surgeries/leak. -Nutrition/NG: continue NG suction per surgery; nutrition per surgical/ICU teams. -Lines/Drains: maintain CARMEN drains; monitor output and character; avoid routine drain cultures. -Follow-up: ID will continue to follow clinically; adjust therapy as new data emerge. Authorized and Performed by: sheron pedraza Total critical care time: Approximately 56 minutes Due to a high probability of clinically significant, life threatening deterioration, the patient required my highest level of preparedness to intervene emergently and I personally spent this critical care time directly and personally managing the patient. This critical care time included obtaining a history; examining the patient; pulse oximetry; ordering and review of studies; arranging urgent treatment with development of a management plan; evaluation of patient's response to treatment; frequent reassessment; and, discussions with other providers. This critical care time was performed to assess and manage the high probability of imminent, life-threatening deterioration that could result in multi-organ failure. It was exclusive of separately billable procedures and treating other patients and teaching time. \ Physical Exam: General: NAD Neck: Supple. No masses. HEENT: PERRL. Normal lids and conjunctiva. Moist mucous membranes. Oropharynx without lesions, exudates or excessive erythema. Normal appearance of the external aspects of the nose and ears. Heart: Regular rhythm, normal rate. No murmur. No lower extremity edema. Lungs: Normal respiratory effort. Clear to auscultation bilaterally. No wheezes. No crackles. Abdomen: Soft. Non-tender. Non-distended. No masses or abdominal hernia. drain and stoma functional . Msk: No digital cyanosis. Normal strength and tone in all 4 limbs Skin: Warm and dry, no rashes. Neuro: Alert. No facial droop or slurred speech. Extra-ocular movements intact. Sensation intact to soft touch in all 4 limbs. Psych: Appropriate mood. Full affect. Oriented to person, place, time, and situation. Plan discussed with: Patient Dietary Evaluation Review Comments: Nutrition Recommendation: 1) TPN to meet at least 75% estimated needs within 7 days 2) Monitor NPO status, lab values, wt trend, I/O Expected Outcomes/Goals: To meet >75% estimated needs Lab values to improve Fu 2-3 days Is there a minimum of two crit: Yes CC Plasma Assessment Blood Product Administration S: [id number] SHERON PEDRAZA MD Apr 03, 2025 15:17
--- NOTE | 2025-04-03 17:46 | DVHPNRES ---
Progress Note Date Seen: Apr 03, 2025 Resident Creating Document: CARMEL SNYDER RESIDENT Has the PT tested + for MRSA If YES, has PT been informed?: No Medical Necessity Reason Pt with a Central, PICC or Fol: Yes The following are medically ne: PICC Line, Leach Catheter Reason for leach catheter: Strict I&O Subjective Review of Systems Ms. Hays is a 80 year old female with PMHx of hypertension, AFib on eliquis, type 2 diabetes mellitus, and chronic kidney disease, who presented to [facility] with chief complaint of constipation and abdominal pain. The patient referred intermittent minimal pain the previous 4 months, which progressively worsened described as described the abdominal pain is sharp constant pain, diffuse in nature, 9/10, radiates to the back and associated with constipation. Initial abdominal CT without IV contrast demonstrated free intraperitoneal likely from visceral perforation of the left abdominal small bowel loops, circumferential wall thickening of left abdominal small bowel loop with more focal local pool of gas adjacent to this thickened small bowel loop. The patient was found to have peritonitis secondary to perforated diverticulitis, for which she underwent an exploratory laparotomy on 01/13/2025 with resection of perforated bowel and formation of enteroenterostomy. Patient was to found to be in septic shock requiring intubation and vasopressor support. Due to abnormal CARMEN drain output, the patient has required multiple follow up exploratory laparotomies on 02/04/2025, 02/25/2025, 03/20/2025, and 03/24/2025, with subsequent resections of affect bowel. Previous medical history: Hypertension, AFib on eliquis (per record the patient was not taking this medication), Type 2 Diabetes mellitus, CKD Previous surgical history: C - section, hernia repair Social: Patient lives with family. Denies previous drug, tobacco, or alcohol use 04/03: Patient seen in ICU. Family has decided on DNR/DNI and comfort measures. Levophed has been turned off and morphine and ativan have been ordered for patient's comfort. On evaluation, the patient is altered, there is some increased work of breathing, is afebrile, tachycardic, and hypotensive. We will continue monitor. Objective vital signs Vital Sign Date Time Temp Pulse Resp B/P (MAP) Pulse Ox O2 Delivery O2 Flow Rate FiO2 04/03/25 16:00 96 04/03/25 16:00 29 94 Nasal Cannula* 2 N/A Hi-Flow Heated NC+ 04/03/25 15:30 120/72 (88) 04/03/25 14:00 97.0 97.0 Total Intake and Output 04/02/25 04/02/25 04/03/25 14:59 22:59 06:59 Intake Total 993.50 ml 621.75 ml 0 ml Output Total 405 ml 380 ml Balance 993.50 ml 216.75 ml -380 ml medications Current Medications Medications Dose Ordered Sig/Isaura Route Start Time Stop Time Status Last Admin Dose Admin Cefazolin Sodium 50 ml @ 100 mls/hr Q8HR IV 01/13/25 14:00 UNV Vasopressin 20 units/Sodium Chloride 100 ml @ 9 mls/hr Q11H7M IV 01/13/25 18:45 UNV Potassium Chloride 100 ml @ 50 mls/hr Q2H IV 01/16/25 12:45 01/16/25 18:44 UNV Vancomycin HCl 100 ml @ 100 mls/hr DAILY@1200 IV 01/20/25 12:00 UNV Amino Acids 0 ml @ 0 mls/hr PER PHARMACY IV 02/13/25 10:45 Ondansetron HCl 4 mg Q4HPRN PRN IV 02/21/25 09:30 03/12/25 17:08 4 MG Multi-Ingredient Ointment 1 applic DAILY TOP 02/23/25 10:00 04/03/25 09:34 1 APPLIC Diagnostic Test (Pha) 1 strip Q4HR 02/26/25 16:00 Cancel Diagnostic Test (Pha) 1 strip IQ4HR 02/26/25 16:00 UNV Dextrose 50 ml UD PRN IV 02/26/25 16:00 UNV Pantoprazole Sodium 40 mg BID IV 03/08/25 22:00 04/03/25 09:34 40 MG Lidocaine 1 patch DAILY TOP 03/12/25 10:00 04/03/25 09:34 1 PATCH Acetaminophen 650 mg Q6HP PRN NC 03/18/25 10:00 03/26/25 08:08 650 MG Phenylephrine HCl 80 mg/Sodium Chloride 250 ml @ 7.5 mls/hr Q24H IV 03/23/25 22:45 UNV Daptomycin / Sodium Chloride 50 ml @ 100 mls/hr DAILY IV 03/25/25 10:00 UNV Daptomycin 250 mg/ Sodium Chloride 50 ml @ 100 mls/hr DAILY IV 03/25/25 10:00 04/03/25 09:34 100 MLS/HR Diagnostic Test (Pha) 1 strip Q6HR 03/26/25 12:00 04/03/25 06:00 1 STRIP Insulin Human Regular FOLLOW SLIDING SCALE Q6HR SC 03/26/25 12:00 04/03/25 06:00 2 UNITS Dextrose 50 ml UD IV 03/26/25 09:30 Hydralazine HCl 10 mg Q6HP PRN IV 03/27/25 02:00 04/02/25 05:04 10 MG Lactulose 30 ml TID NG 03/27/25 06:00 03/31/25 05:46 30 ML Lactated Ringer's 1,000 ml @ 50 mls/hr Q20H IV 03/29/25 16:15 04/03/25 16:15 50 MLS/HR Norepinephrine Bitartrate 250 ml @ 3.75 mls/hr Q24H IV 03/29/25 16:15 04/03/25 01:13 30 MLS/HR Fat Emulsion Intravenous 100 ml/Potassium Acetate 20 meq/ Potassium Phosphate 11 meq/ Magnesium Sulfate 16 meq/ Multivitamins 10 ml/Insulin Human Regular 5 units/ Amino Acids/ Dextrose/Purified Water 1,226.55 ml @ 51 mls/hr Q24H3M IV 04/02/25 22:00 04/03/25 21:59 04/02/25 23:13 51 MLS/HR Hydromorphone HCl 0.5 mg Q3HPRN PRN IV 04/02/25 21:00 Hold 04/03/25 09:36 0.5 MG Fat Emulsion Intravenous 100 ml/Sodium Acetate 10 meq/Potassium Acetate 20 meq/ Potassium Phosphate 11 meq/ Magnesium Sulfate 16 meq/ Multivitamins 10 ml/Insulin Human Regular 5 units/ Amino Acids/ Dextrose/Purified Water 1,231.55 ml @ 51 mls/hr Q24H9M IV 04/03/25 22:00 04/04/25 21:59 Morphine Sulfate 2 mg Q15MP PRN IV 04/03/25 12:45 04/03/25 12:48 2 MG Lorazepam 2 mg Q15MP PRN IV 04/03/25 12:45 04/03/25 12:56 2 MG Meropenem 50 ml @ 17 mls/hr Q12HR IV 04/03/25 22:00 Micafungin Sodium 100 mg/Sodium Chloride 100 ml @ 100 mls/hr DAILY IV 04/03/25 15:00 04/03/25 15:00 100 MLS/HR Examination General: AOx1, jaundiced HEENT: Normocephalic, atraumatic, normal reactive pupils, EOM intact, icteric sclera, dry mucus membranes Respiratory/pulmonary: Bilateral chest expansion, no pain on palpation of chest wall, clear lungs bilaterally, vesicular murmurs present in almost all lung sutton, no crackles Cardiovascular: Tachycardic Abdomen: Abdomen nondistended, presence of ostomy bags in mid right to lower quadrant, CARMEN drain located on left abdomen, active bowel sounds, soft, pain to palpation in areas surrounding ostomy, no palpable masses. : Presence of Leach Extremities: No deformities, there is no peripheral edema present at the lower extremities, normal pulses Skin: Jaundiced, as mentioned above, presence of dry eschars on back of bilateral heels Neurological: Normal reactive pupils, patient unable to cooperate for full neurological exam laboratory and microbiology Laboratory Tests 04/03/25 08:36 04/03/25 02:55 Test 04/03/25 02:55 Range/Units Serum Glucose 291 H 74-106 mg/dL Microbiology Date/Time Source Procedure Growth Status 03/30/25 03:00 Urine - Leach Port Urine Culture - Final Presumptive Zoe krusei Complete 03/29/25 04:20 Blood Blood Culture - Final NO GROWTH AFTER 5 DAYS OF INCUBATION. Complete 03/20/25 08:12 Peritoneal Fluid Gram Stain - Final Complete 03/20/25 08:12 Peritoneal Fluid Anaerobic Culture - Final Complete 03/20/25 08:12 Aerobic Culture - Final Enterococcus faecium - VRE Complete 02/25/25 11:48 Sputum Gram Stain - Final Complete 02/25/25 11:48 Sputum Respiratory Culture - Final Complete 01/13/25 17:10 Nose MRSA Screen - Final Complete Problem List/Assessment/Plan Problem List/Assessment/Plan Neurology #Chronic Ischemic Changes and Cortical Atrophy - Head CT: 01/28/2025: Chronic sequelae of microangiopathy and atrophic cortical focal volume loss. Cardiovascular #Septic Shock secondary to peritonitis due to hollow viscus perforation #Chronic diastolic heart failure without exacerbation - Echocardiogram: 01/15/2025: Normal LVEF 65%, mild LVH, mild LV diastolic dysfunction #Paroxysmal Afib - Currently not on therapeutic Lovenox due to low hemoglobin - CHADsVasc 5 # Hypertension - Monitor - Hydralazine 10 mg IV PRN Respiratory # Acute hypoxic respiratory failure secondary to bilateral pleural effusion/ pneumonia # Ventilator -Intubated () -Extubated (02/07/2025) -Reintubation (02/25/2025) -Extubation ( 02/28/2025) -Due to observed increased work of breathing, chest xray was ordered which shows no significant change from the previous study. Stable support devices. Persistent heart failure pattern. -Sputum culture 01/29: Presumptive Zoe albicans, Sputum culture from 02/25: negative GI # Acute bacterial peritonitis due to small bowel perforation secondary to perforated diverticulitis, very poor prognosis -CT abdomen: 01/12/2025: Free intraperitoneal air likely from visceral perforation of a left abdominal small bowel loop. Circumferential wall thickening of a left abdominal small bowel loop with more focal locules of gas adjacent to this thickened small bowel loop . There may be sinus tracts or a fistulous network between adjacent small bowel loops in the left abdomen with image numbers above. Mild ascites and diffuse soft tissue stranding of the mesentery # Transaminitis secondary to shock # Anion gap metabolic acidosis due to bowel ischemia and lactic acidosis # Elevated bilirubin secondary to TPN - Exploratory laparotomy 01/13/2025: Resection of perforated bowel enteroenterostomy - Exploratory laparotomy 02/04/2025: Resection near previous resection - Exploratory laparotomy 02/25/2025: Resection of distal ileum - Exploratory laparotomy 03/20/2025:Very extensive lysis of adhesions, repair of 3 ischemic perforations of small bowel, evacuation of multiple interloop abscesses, revision of ileostomy. - Exploratory laparotomy 03/24/2025: - IR-guided pigtail drain placed; drained 50 cc purulent fluid. - CARMEN drains placed in 4 quadrants initially and now patient has only 1 CARMEN drain - Peritoneal fluid (01/13): E. coli, Klebsiella pneumoniae (sensitive to meropenem). - Peritoneal fluid (02/17): E. coli, Stenotrophomonas maltophilia. - Aspirate culture: (03/02): VRE - Aspirate culture :(04/02) : VRE - Blood cultures (03/26): Bacteroides caccae - Blood cultures (03/28): Negative at 24 hours - Micafungin (03/17), Daptomycin (03/24) cefepime, Flagyl added (03/26) - Levofloxacin, Flagyl (02/03); Vancomycin and Meropenem (); Meropenem (); Vancomycin (), Bactrim stopped (03/08)8) - Per surgery: The patient is currently not a candidate for continued surgical intervention, they will continue to watch the drains and will lower rate of TPN - Patient is NPO, currently with NG tube #Acute Liver Failure - TPN will be decreased # Peptic ulcer prophylaxis -Pantoprazole 40 mg IV daily # Leach catheter Nephrology -#ISRRAEL likely hemodynamically mediated/VMN - Resolved - Monitor renal function - Avoid nephrotoxix drugs #Hypokalemia - Monitor - Replete as needed #Hyperkalemia - Monitor #Hyponatremia, resolved #Hypophosphatemia - Replete as needed Infectious disease # Septic shock secondary to acute bacterial peritonitis due to small bowel perforation secondary to perforated diverticulitis - Exploratory laparotomy 01/13/2025: Resection of perforated bowel enteroenterostomy - Exploratory laparotomy 02/04/2025: Resection near previous resection - Exploratory laparotomy 02/25/2025: Resection of distal ileum - Exploratory laparotomy 03/20/2025:Very extensive lysis of adhesions, repair of 3 ischemic perforations of small bowel, evacuation of multiple interloop abscesses, revision of ileostomy. - Exploratory laparotomy 03/24/2025: - IR-guided pigtail drain placed; drained 50 cc purulent fluid. - CARMEN drains placed in 4 quadrants initially and now patient has only 1 CARMEN drain - Peritoneal fluid (01/13): E. coli, Klebsiella pneumoniae (sensitive to meropenem). - Peritoneal fluid (02/17): E. coli, Stenotrophomonas maltophilia. 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 #Acute DVT of right upper extremity - Venous duplex US of right upper extremity: partial thrombus in right internal jugular ad cephalic vein - Left upper extremity Venous Duplex US: thrombus in left brachial vein and bilateral cephalic veins - Hold anticoagulation at this time Endocrine # Hypothyroidism - TSH previously 42 --> 0.90 - Levothyroxine 50 mcg, held at this time # Type 2 Diabetes Mellitus, HbA1c: 8.1 - Sliding scale insulin Nutrition # Severe protein malnutrition # TPN Lines Airway: Intubated on 01/14, extubated on 02/07, reintubated on 02/25 extubated 02/28 Vascular Access: PICC line placed in right upper thigh on 01/26. Drips: Levophed 4 mcg/min Urinary: Leach catheter placed on 01/14, exchanged on 02/14. Exchanged on 03/17. CARMEN drains in 1 quadrant. Ostomy bag in lower right abdominal quadrant PUD prophylaxis: Protonix DVT prophylaxis: Held at this time due to anemia Physical therapy ordered Critical care time 84 minutes excluding procedure. Code status discussed greater than 20 minutes: DNR/DNI, comfort measures. Family at bedside explained about the condition of the patient Plan discussed with Dr. Pino Plan discussed with: Son, Other (Nurse) Dietary Evaluation Review Comments: Nutrition Recommendation: 1) TPN to meet at least 75% estimated needs within 7 days 2) Monitor NPO status, lab values, wt trend, I/O Expected Outcomes/Goals: To meet >75% estimated needs Lab values to improve Fu 2-3 days Is there a minimum of two crit: Yes CC Plasma Assessment Blood Product Administration S: [id number] CARMEL SNYDER RESIDENT Apr 03, 2025 17:46
[2025-04-03] MEDS: MORPHINE SULFATE INJ 2 MG/ml SYRG ONE (17:49)
[2025-04-03] MEDS: LORazepam 2MG/ML-1ML VIAL ONE (17:49)
[2025-04-03] MEDS ORDERED: TPN PER PHARMACY IV NR (22:00)
[2025-04-03] MEDS ORDERED: MEROPENEM 1GM IVPB 50 ML IV SCH (22:00)
--- NOTE | 2025-04-04 11:40 | DVHDSRES ---
Discharge Summary Date of Admission Resident Creating Document: LILLIANCARMEL RESIDENT Jan 13, 2025 at 07:40 Date of Discharge: Apr 03, 2025 Admitting Diagnosis Intestinal Perforation Wounds: The exposed abdominal surgical wound measures 16.0x1.0x0.8cm with the inferior wound portion covered with an ostomy bag draining serosanguineous exudate (75cc). The wound is dry, dusky red tissue at the healing ridge, there are intact lilly on the wound margins with no exudate on the superior portion of the wound/no odor, andres-wound is pink. The superior portion of the abdominal surgical wound was covered with an absorbent island dressing, kept ostomy bag intact at this time. The patient's bilateral heels have resolving unstageable wounds that evolved from DTI's. The left heel wound measures <0.5x<0.5cm with a small, dry brown area of eschar, no exudate/odor, andres tissue is pink. The right heel wound measures 5.3x6.5x0.5cm, the tissue is stable, adhered black eschar with no exudate/odor, andres tissue is pink/red. Labs/Diagnostic Data: Laboratory Results Test 04/03/25 08:36 04/03/25 08:12 04/03/25 06:55 04/03/25 02:55 White Blood Count 17.5 10^3/uL (4.4-10.8) Red Blood Count 2.19 10^6/uL (4.0-5.20) Hemoglobin 7.8 g/dL (12.2-16.2) Hematocrit 28.2 % (36.0-46.0) Mean Corpuscular Volume 128.8 fL (80.0-100.0) Mean Corpuscular Hemoglobin 35.7 pg (28.0-32.0) Mean Corpuscular Hemoglobin Concent 27.7 g/dL (32.0-36.0) Red Cell Distribution Width 25.4 % (11.8-14.3) Platelet Count 69 10^3/uL (140-450) Mean Platelet Volume 13.7 fL (6.9-10.8) Neutrophils (%) (Auto) 84.1 % (37.0-80.0) Lymphocytes (%) (Auto) 7.6 % (10.0-50.0) Monocytes (%) (Auto) 7.8 % (0.0-12.0) Eosinophils (%) (Auto) 0.1 % (0.0-7.0) Basophils (%) (Auto) 0.4 % (0.0-2.0) Neutrophils # (Auto) 14.7 10 ^3/uL (1.6-8.6) Lymphocytes # (Auto) 1.3 10 ^3/uL (0.4-5.4) Monocytes # (Auto) 1.4 10 ^3/uL (0-1.3) Eosinophils # (Auto) 0 10 ^3/uL (0-0.8) Basophils # (Auto) 0.1 10 ^3/uL (0-0.2) Nucleated Red Blood Cells 1.3 % Blood Gas Specimen Type Arterial Blood Gas Sample Site Right radial Blood Gas Patient Temperature 37.0 Arterial Blood Date Drawn [id number] Arterial Blood pH 7.338 (7.350-7.450) Arterial Blood Partial Pressure CO2 25.3 mmHg (32.0-45.0) Arterial Blood Partial Pressure O2 61.5 mmHg (83.0-108.0) Arterial Blood HCO3 13.3 mmol/L (21.0-28.0) Arterial Blood Oxygen Saturation 88.4 % (94.0-98.0) Arterial Blood Base Excess -10.9 mmol/L (-2.0-3.0) Arterial Blood Oxyhemoglobin 87.4 % (94.0-98.0) Arterial Blood Carboxyhemoglobin 0.8 % (0.5-1.5) Arterial Blood Methemoglobin 0.3 % (0.0-1.5) Arterial Blood Deoxyhemoglobin 11.5 % (0.0-5.0) Syed Test Yes Blood Gas Total Hemoglobin 11.50 g/dL (12.0-16.0) Blood Gas Liter Flow 60.00 Blood Gas Modality High flow FiO2 % 30.0 POC Glucose 160 mg/dl (70-106) Platelet Estimate Decreased Polychromasia Slight Anisocytosis (manual) Slight Macrocytosis Moderate Sodium Level 137 mmol/L (136-145) Potassium Level 4.2 mmol/L (3.5-5.1) Chloride Level 109 mmol/L (98-107) Carbon Dioxide Level 15 mmol/L (20-31) Anion Gap 13 (5-15) Blood Urea Nitrogen 64 mg/dL (9-23) Creatinine 1.44 mg/dL (0.550-1.02) Glomerular Filtration Rate Calc 37 mL/min (>90) BUN/Creatinine Ratio 44.4 (10.0-20.0) Serum Glucose 291 mg/dL (74-106) Lactic Acid Level 4.7 mmol/L (0.4-2.0) Calcium Level 9.2 mg/dL (8.7-10.4) Phosphorus Level 2.9 mg/dL (2.4-5.1) Magnesium Level 2.2 mg/dL (1.6-2.6) Total Bilirubin 6.5 mg/dL (0.2-1.0) Aspartate Amino Transferase (AST) 113 U/L (13-40) Alanine Aminotransferase (ALT) 49 U/L (7-40) Alkaline Phosphatase 109 U/L (46-116) Total Protein 3.7 g/dL (5.7-8.2) Albumin 1.1 g/dL (3.2-4.8) Test 04/02/25 14:10 04/02/25 02:40 03/29/25 03:08 03/27/25 03:50 Blood Gas Comments Blood Gas Critical Value Read Back Yes Blood Gas Notified Whom beulah Ellis md Blood Gas Notified Time [id number] Blood Gas Notified By Nelson lees building cleaning supervisor Giant Platelets Few Prothrombin Time 23.1 sec (9.3-11.8) Prothrombin Time INR 2.37 (0.9-1.15) Activated Partial Thromboplast Time 55.0 SEC (24.5-34.5) Triglycerides Level 100 mg/dL (< 150) Thyroid Stimulating Hormone (TSH) 0.90 uIU/mL (0.55-4.78) Ammonia 37 umol/L (11-32) Test 03/26/25 03:10 03/22/25 14:29 03/20/25 21:55 03/17/25 04:54 Creatine Kinase < 15 U/L (34-145) Venous Blood pH 7.432 (7.320-7.430) Venous Blood pCO2 at Patient Temp 40.0 mmHg (38.0-54.0) Venous Blood pO2 at Patient Temp 58.3 mmHg (23.0-48.0) Venous Blood HCO3 26.1 mmol/L (22.0-29.0) Venous Blood Base Excess 1.7 mmol/L (-2.0-3.0) Specimen Drawn By motion picture camera lens technician Blood Gas Spontaneous Rate 26 Free Thyroxine (T4) Calculated 1.07 ng/dL (0.89-1.76) Test 03/16/25 15:48 03/15/25 05:00 03/14/25 06:05 03/09/25 04:27 Urine Color Yellow (Yellow) Urine Clarity Clear (Clear) Urine pH 6.5 (5.0-9.0) Urine Specific [place] 1.011 (1.001-1.035) Urine Protein Trace (Negative) Urine Ketones Negative (Negative) Urine Blood Trace /uL (Negative) Urine Nitrite Negative (Negative) Urine Bilirubin Negative (Negative) Urine Urobilinogen Normal mg/dL (Negative) Urine Leukocyte Esterase 1+ /uL (Negative) Urine RBC 3 /hpf (0 - 4) Urine Microscopic WBC 11 /HPF (0-5) Urine Squamous Epithelial Cells Few /hpf (<5) Urine Bacteria None seen /hpf (None Seen) Urine Yeast (Budding) Few /hpf (None Seen) Urine Glucose 3+ mg/dL (Normal) Differential Total Cells Counted 100.0 (100) Neutrophils % (Manual) 51 (37.0-80.0) Band Neutrophils % (Manual) 13 Lymphocytes % (Manual) 24 (10.0-50.0) Monocytes % (Manual) 11 (0-12) Eosinophils % (Manual) 1 (0-7) Basophils % (Manual) 0 (0.0-2.0) Metamyelocytes % (manual) 0 Myelocytes % (Manual) 0 Promyelocytes % (Manual) 0 Blast Cells % (Manual) 0 Reactive Lymphocytes 0 Smudge Cells 1 /100 WBC Large Platelets Few Schistocytes Few Total Triiodothyronine (TT3) 0.48 ng/mL (0.60-1.81) Test 03/08/25 12:06 03/02/25 03:10 02/28/25 10:34 02/28/25 07:35 Miscellaneous Referred Test (Rm Tmp Sent to [facility] Direct Bilirubin 2.0 mg/dL (<0.3) Lactate Dehydrogenase 280 U/L (120-246) Blood Gas Pressure Support 7 Blood Gas PEEP or CPAP 5.0 Blood Gas Set Respiration Rate 18.0 Blood Gas Tidal Volume 450.0 Test 02/28/25 06:02 02/24/25 02:46 02/22/25 19:05 02/20/25 03:45 Gastric Fluid pH 1 Gastric Fluid Occult Blood Negative (Negative) Stomatocytes Few Vancomycin Level Trough 14.7 ug/mL (5-10) Vitamin B12 Level 2328 pg/mL (211-911) Vitamin D 25-Hydroxy 36.4 ng/mL (30.0-100) Test 02/15/25 03:20 02/01/25 03:30 01/21/25 03:06 01/17/25 11:20 Random Vancomycin Level 15.1 ug/mL (5-10) Iron Level 30 ug/dL (50-170) Total Iron Binding Capacity 163 ug/dL (250-425) Percent Iron Saturation 18.4 % (15-50) Ferritin 250.4 ng/mL (10-291) Prealbumin < 3.0 md/dL (10.0-40.0) B-Type Natriuretic Peptide 108.02 pg/mL (0-100) Haptoglobin 160 mg/dL (42-346) Fibrinogen 256 mg/dL (177-375) D-Dimer, Quantitative 27.68 mg/L FEU (0.0-0.49) Test 01/14/25 02:00 01/13/25 19:04 01/13/25 07:59 01/12/25 21:30 Urine Amorphous Crystals Few /hpf (None Seen) Urine Creatinine 34.09 mg/dL (30.0-125.0) Urine Protein/Creatinine Ratio 3.85 Urine Sodium 76 mmol/L (40-220) Urine Total Protein 131.1 mg/dL (1-14) Rheumatoid Factor 18.9 IU/mL (<14.0) Anti-Nuclear Antibody Screen Negative (Negative) Cytoplasmic ANCA (c-ANCA) Antibody <1:20 titer (Neg:<1:20) Atypical p-ANCA <1:20 titer (Neg:<1:20) Perinuclear ANCA (p-ANCA) Antibody <1:20 titer (Neg:<1:20) Complement C3 112 mg/dL (82-167) Complement C4 20 mg/dL (12-38) Onel Cells Few Hemoglobin A1c 8.2 % A1C (<5.7) Cholesterol Level 81 mg/dL (< 200) LDL Cholesterol 22 mg/dL (< 100) HDL Cholesterol 14 mg/dL (40-59) Lipase 21 U/L (12-53) Other Laboratory Tests 04/03/25 08:36 04/03/25 02:55 Brief Hx & Hospital Course: Ms. Hays is a 80 year old female with PMHx of hypertension, AFib on eliquis, type 2 diabetes mellitus, and chronic kidney disease, who presented to [facility] with chief complaint of constipation and abdominal pain. The patient referred intermittent minimal pain the previous 4 months, which progressively worsened described as sharp constant pain, diffuse in nature, 01/19, radiates to the back and associated with constipation. Initial abdominal CT without IV contrast demonstrated free intraperitoneal likely from visceral perforation of the left abdominal small bowel loops, circumferential wall thickening of left abdominal small bowel loop with more focal local pool of gas adjacent to this thickened small bowel loop. The patient was found to have peritonitis secondary to perforated diverticulitis, for which she underwent an exploratory laparotomy on 01/13/2025 with resection of perforated bowel and formation of enteroenterostomy. Patient was to found to be in septic shock requiring intubation and vasopressor support. Due to abnormal CARMEN drain output, the patient has required multiple follow up exploratory laparotomies on 02/04/2025, 02/25/2025, 03/20/2025, and 03/24/2025, with subsequent resections of affected bowel. Patient was placed on multiple antibiotic regimens, adjusted based on culture results. Clinical status deteriorated progressively with patient becoming progressively more altered, hemodynamically labile requiring vasopressor support again, and with pain difficult to control despite analgesia. Second opinion on the case was given by Dr. Henry Rivera who stated that the patient was not a candidate for further abdominal surgery, with recommendation of supportive care. Due to continued deterioration, her family decided to change status to DNR/DNI, wiht subsequent comfort care measures. Levophed was discontinued and morphine and ativan were ordered for comfort. She became bradycardic until asystole was noted on the monitor, pulses were unable to palpated with none ausculated via doppler, blood pressure was unobtainable, and pupils became unresponsible. Patient was declared at 19:54, family was notified. Case discussed with Dr. Self Consults/Reason for consult Surgery was consulted due to abdominal CT findings consistent with bowel perforation as well for second opinion on case Nephrology was consulted due to [place] Cardiology was consulted due to atrial fibrillation and hypotension GI was consulted for evaluation of possible endoscopy Infectious disease was consulted for evaluation due to persistent infectious process Operations or Procedures DATE OF SURGERY: 01/13/2025 PREOPERATIVE DIAGNOSIS: Perforated bowel. POSTOPERATIVE DIAGNOSES: Peritonitis, perforated bowel, adhesions. SURGEON: Christian Christy MD CORDUROY CUTTER OPERATOR: Jean Claude Preciado. ANESTHESIA: General endotracheal. ANESTHESIOLOGIST: Dr. Marquez. PROCEDURES: Exploratory laparotomy, lysis of adhesions, extensive lavage, resection of perforated small bowel, enteroenterostomy. DESCRIPTION OF PROCEDURE: Under general endotracheal anesthesia with the patient's skin prepped and draped, a midline incision was made and the abdomen was visually and manually explored. The exploration revealed multiple loops of dilated small bowel which was ischemic appearing which was covered with fibrinous exudate and densely adherent to the abdominal wall and each other. Lysis of adhesions was accomplished. In the mid portion of the small bowel, there was an induration surrounding the mesentery and the mesenteric border of the small bowel, which appeared to be perforated. The perforated bowel was resected by means of MAGGY staplers and the division of the mesentery between clamps and ligature of the pedicles. Subsequently, an enteroenterostomy, which was done with the use of a stapler as well, was accomplished. It was tested for patency and water tightness, both of which were proven by palpation and visual inspection. The mesenteric defect was approximated using 2-0 Monocryl suture. Subsequently, the abdomen was lavaged with 10 liters of warm saline, which was aspirated. Two Mohamud-Steele drains were placed into the peritoneal cavity, one into the upper abdomen and one into the lower abdomen. They were exteriorized separately and secured with 2-0 nylon suture. Following assurance of accurate needle and sponge count and no evidence of any ongoing bleeding, the abdomen was closed using #1 double-stranded PDS suture and metallic skin lilly. The patient remained relatively stable throughout the procedure and left the operating room following an accurate needle and sponge count. Her son, Chris, was thoroughly informed in the waiting room. DATE OF SURGERY: 02/04/2025 PREOPERATIVE DIAGNOSES: Enterocutaneous fistula, peritonitis, septic shock, ischemic bowel, ventilator dependency. POSTOPERATIVE DIAGNOSES: Enterocutaneous fistula, peritonitis, septic shock, ischemic bowel, ventilator dependency. SURGEON: Christian Christy MD. CORDUROY CUTTER OPERATOR: Jean Claude Preciado. ANESTHESIA: General endotracheal. ANESTHESIOLOGIST: Dr. Miramontes. PROCEDURES: Exploratory laparotomy, lysis of adhesions, evacuation of pelvic and abdominal infection, resection of proximal jejunum, ileoileostomy, and jejunojejunostomy. DESCRIPTION OF PROCEDURE: Under general endotracheal anesthesia with the patient's skin prepped and draped, the incision was opened after removing lilly and sutures from previous exploratory laparotomy. Copious amount of feculent material and pus was evacuated from pelvis and abdomen. Multiple interloop abscesses were evacuated. A large collection of infection was located in the pelvis and another one in the left upper quadrant adjacent to the spleen. Following evacuation of the infection, the lysis of adhesions was tediously undertaken. Adhesions were fibrous and extremely difficult to separate. However, with much effort to minimal injury to the serosal surfaces, the loops of bowel were identified, isolated, and individually inspected. Transverse colon and descending colon were visualized, were without any injury. The anterior surface of the stomach was densely adherent to the anterior abdominal wall. Following separation, again, there was no evidence of injury to the serosa. The area of previous perforation had a perforation adjacent to the anastomosis. The previous anastomosis was resected and submitted for histopathologic examination and following lysis of the ligament of Treitz in order to assure tension-free anastomosis and anastomosis between the proximal jejunal loops was accomplished by hand sewing technique using 3-0 Monocryl and 3-0 Prolene sutures for the inner and outer layer respectively. The mesenteric defect was approximated using 2-0 Monocryl suture. The abdomen was then profusely irrigated with 10 L of saline, which was aspirated. All 4 quadrants were drained by means of a Mohamud-Steele drain inserted separately through all 4 quadrants and abdomen was closed using #1 double-stranded PDS suture and skin lilly with a applied over the staple line. The patient had several episodes of tachycardia and hypotension, which responded well to epinephrine as well as to other drug manipulations by Dr. Miramontes. She did receive a unit of transfusion during the procedure and left the operating room following an accurate needle and sponge counts, remaining intubated. DATE OF SURGERY: 02/25/2025 PREOPERATIVE DIAGNOSES: Peritonitis, feculent leakage, and sepsis. SURGEON: Christian Christy MD CORDUROY CUTTER OPERATOR: Jean Claude Preciado. SECOND SURGEON: Dr. Beulah Rivera. ANESTHESIA: General endotracheal, Dr. Miramontes. DESCRIPTION OF PROCEDURE: Under general endotracheal anesthesia with the patient's skin prepped and draped, lilly from preexisting incision were removed as were the 4 drains within the peritoneal cavity. The abdomen was prepped with Betadine and opened through the healing scar. Following entry into the peritoneal cavity, a copious amount of feculent material was evacuated. There was exuberant adhesive process throughout the peritoneal cavity and meticulous division of all the adhesions ensued. There was a perforation in the distal ileum just proximal to what appeared to be an obstruction secondary to adhesions and kinking of the bowel. This was resected and an end-to-end anastomosis was stapled. The entire bowel was then mobilized. There were areas of potential leakage encountered on the ascending colon and transverse colon. For this reason, the distal ileum was divided with a MAGGY stapler and the colon was removed from the cecum to the mid portion of the descending colon. The abdomen was inspected. The bowel was thoroughly inspected from the remaining distal ileum to the ligament of Treitz where the anastomosis from the original operation appeared to be intact. Abdomen was profusely irrigated and ileostomy opening was created in the right abdominal wall and the ileum was brought through this ileostomy opening. The descending colon and rectosigmoid colon were inspected and appeared to be intact without any evidence of any injury to it. Abdomen was profusely irrigated with warm saline. Needle and sponge counts were reported as accurate. Hemostasis was complete. Closure accomplished after insertion of a 10 mm Mohamud-Steele drain through a separate incision and was secured with a 2-0 nylon suture. Abdomen was closed using #1 double-stranded PDS suture, metallic skin lilly, and a wound VAC. The ileostomy was then matured with 3-0 Vicryl suture. The patient remained in unchanged condition at the termination of the procedure and was transferred back to the ICU on a ventilator DATE OF SURGERY: 03/20/2025 PREOPERATIVE DIAGNOSES: * Stoma malfunction. * Persistent enteric cutaneous fistula. SURGEON: Christian Christy MD CORDUROY CUTTER OPERATOR: Jean Claude Preciado NP ANESTHESIA: General endotracheal. ANESTHESIOLOGIST: Jose Patterson. PROCEDURES: * Exploratory laparotomy. * Very extensive lysis of adhesions. * Repair of 3 ischemic perforations of small bowel. * Evacuation of multiple interloop abscesses. * Revision of ileostomy. DESCRIPTION OF PROCEDURE: Under general endotracheal anesthesia with the skin prepped and draped following removal of the wound VAC from the patient's midline incision, it became evident that there was bilious secretion emanating from the patient's abdominal wound. For this reason, the planned attempt at revision of the ileostomy locally was abandoned and a decision was reached to perform an exploratory laparotomy. The scar was incised and the abdomen was carefully entered. The amount of adhesions was extensive and exuberant. It was extremely difficult to mobilize the bowel and separate the bowel from the abdominal wall and itself. Three small perforations were encountered, which were due to apparently ischemic changes in the bowel wall. These were not iatrogenic perforations, one was a perforation at the proximal jejunum within proximity of the indwelling Mohamud-Steele drain. The Mohamud-Steele drain was removed and the perforation was inspected. The edges appeared viable and the perforation was repaired with 2 layers of 3-0 Monocryl suture. Following adhesions lysis, the bowel was inspected and 2 additional leaks were identified. These were at the site of previous stapled anastomosis of the ileal continuity. These also were closed using Prolene sutures. All perforations appeared to be watertight. There was no evidence of continued leak through the suture lines. At this point, an incision was made around the ileostomy and deepened through subcutaneous fat and inflammatory tissue into the peritoneal cavity. The ileostomy was mobilized in its entirety and it was internalized into the abdominal cavity. There was no enteric contents within the ileostomy itself, although the stoma appeared viable. At this point, numerous abscesses were encountered between loops of small bowel and 1 between a loop of small bowel and the ascending colon. These abscesses were evacuated and cultures were submitted. Following mobilization of the entire small bowel from the ileostomy to the ligament of Treitz, it became evident that the ileostomy was actually obstructed in 3 different places due to kinking of the bowel and severe scarring. The ileostomy itself was excised and submitted as a specimen labeled ischemic bowel and subsequently the ileum was passed through the ileostomy defect in the abdominal wall and a new ileostomy utilizing 3-0 Monocryl suture was fashioned. Due to the thick nature of the ileal wall and the tendency of this patient to form obstructing adhesions, a size 24 Perez catheter was passed into the ileostomy. The balloon was insufflated away from any of the perforations or anastomoses. The entire Perez catheter was internalized into the distal ileum and then sutured to the skin. The ileostomy will be included in the ileostomy appliance and will be allowed to remain indwelling until resumption of ileostomy function. The abdomen was then profusely irrigated. Irrigant was aspirated. Hemostasis was meticulously accomplished and following a report of an accurate needle and sponge count, an insertion of a 10-mm Mohamud-Steele drain, which was placed anterior to any intestinal contents and away from any suture lines and was secured with a 2-0 nylon suture to its own exit point. Closure of the abdomen accomplished utilizing #1 double-stranded PDS suture, a few skin lilly, and application of a wound VAC onto the midline incision. The patient remained hemodynamically stable throughout the procedure and left the operating room following an accurate needle and sponge count. CLINICAL HISTORY: abd pain TECHNIQUE: CT of the abdomen and pelvis was performed without intravenous contrast. This exam was performed according to our departmental dose optimization program. Up-to-date CT equipment and radiation dose reduction techniques are utilized as appropriate. 7.04 CTDI: 7.04 DLP: 106.97 WID: COMPARISON: None FINDINGS: Lower Thorax: There is a healing anterior right 4th and 5th rib fractures. Linear bibasilar atelectasis and/or scarring. Mild cardiomegaly. Liver and Biliary system: Grossly normal liver. Gallbladder is normal caliber. There is no biliary ductal dilatation. Spleen: Unremarkable. Adrenal Glands and Kidneys: Normal adrenal glands. Slightly small bilateral kidneys. No hydronephrosis or nephrolithiasis. Pancreas and Retroperitoneum: Mildly atrophic pancreas. There is no retroperitoneal lymphadenopathy. Aorta and Major Vessels: Aortoiliac vessels are normal in caliber with moderate calcified atherosclerotic plaque. Bowel, Mesentery and Peritoneal space: There is normal caliber small and large bowel. Normal appendix. There circumferential wall thickening of small-bowel loops in the left abdomen for example on series 601, image 42. There is free intraperitoneal air. There are more focal locules of gas within thickened left abdominal small-bowel loop for example series 2, image 44. There may be sinus tracts or fistulous network between a cluster of small bowel loops in the left abdomen for example series 2, images 39 and 44. There is diffuse soft tissue stranding throughout the mesentery and mild ascites. There is no well-formed, drainable fluid collection at this time. Pelvis: The uterus is mildly atrophic. The urinary bladder is minimally distended. The ovaries are atrophic. There is no pelvic lymphadenopathy. Abdominal wall and Osseous Structures: Surgical clips in the right groin. Multilevel moderate lower thoracic and lumbar spondylosis. Grade 1 anterolisthesis at L4-L5. No destructive osseous lesion. IMPRESSION: 1. Free intraperitoneal air likely from visceral perforation of a left abdominal small bowel loop. 2. Circumferential wall thickening of a left abdominal small bowel loop with more focal locules of gas adjacent to this thickened small bowel loop . 3. There may be sinus tracts or a fistulous network between adjacent small bowel loops in the left abdomen with image numbers above. 4. Mild ascites and diffuse soft tissue stranding of the mesentery 5. Healing anterior right 4th and 5th rib fractures. 6. Mild cardiomegaly. Critical Findings: Free intraperitoneal air and circumferential small-bowel wall thickening with adjacent focal gas locules suggest visceral perforation Examination: XY KUB ABDOMEN SINGLE VIEW History: ABDOMINAL PAIN; NG TUBE PLACEMENT Comparison: None TECHNIQUE: Frontal views of the abdomen was obtained. FINDINGS: Bowel gas pattern is unremarkable. The lung bases are unremarkable. No acute osseous abnormality identified. IMPRESSION: Nonobstructive bowel gas pattern. Nasogastric tube tip in the stomach. Large stool burden. INDICATION: intub TECHNIQUE: Frontal view of the chest. COMPARISON: None FINDINGS: ET tube 6 mm from the jhonny. Retract by 3 cm. Cardiomegaly. There is no evidence of pleural disease. The lungs are clear. The bony structures of the chest are intact without fracture. Nasogastric tube tip in the stomach IMPRESSION: 1. ET tube 6 mm from the jhonny. Retract by 3 cm. Cardiomegaly with CHF. CHEST RADIOGRAPH Indication: resp failure Technique: Single frontal view of the chest was obtained COMPARISON: XY CHEST PORTABLE on DOS: 01/13/25, XY CHEST XRAY 1 VIEW on DOS: 01/13/25, XY CHEST PORTABLE on DOS: 01/13/25, XY CHEST PORTABLE on DOS: 01/13/25 FINDINGS: Lines and Tubes: Endotracheal tube, enteric catheter and left PICC in satisfactory position. Lungs: Significant change in cardiopulmonary findings from earlier study of 01/13/2025 Pleura: No effusion. No pneumothorax. Cardiomediastinal contours: Unremarkable Bones: No acute osseous abnormality. IMPRESSION: 1. Lines and tubes in appropriate position. CHEST RADIOGRAPH Indication: Intubated Technique: Single frontal view of the chest was obtained COMPARISON: XY CHEST PORTABLE on DOS: 01/15/25, XY CHEST PORTABLE on DOS: 01/14/25, XY CHEST PORTABLE on DOS: 01/13/25, XY CHEST XRAY 1 VIEW on DOS: 01/13/25, XY CHEST PORTABLE on DOS: 01/13/25 FINDINGS: Lines and Tubes: Unchanged. Lungs: Mildly progressive bibasilar pulmonary airspace disease and small bilateral pleural effusions. No pneumothorax. Cardiomediastinal contours: Cardiomegaly. Bones: Unremarkable IMPRESSION: 1. Mildly progressive bibasilar pulmonary airspace disease and small bilateral pleural effusions. 2. Cardiomegaly. 3. Lines and tubes unchanged. US BiLat Lower DVT HISTORY: To role out DVT COMPARISON: US BI LAT UPPER DVT on DOS: 01/17/25 TECHNIQUE: Duplex doppler evaluation of the deep venous system of the lower extremity from the common femoral veins, superficial femoral vein, great saphenous vein, deep femoral vein, popliteal vein, and calf veins, including color doppler and spectral/pulsed waveform analysis, was performed. FINDINGS: Right: - Common femoral vein: Compressible - Deep femoral vein: Compressible - Femoral vein: Compressible - Popliteal vein: Compressible - Posterior tibial vein: Waveforms present - Other: Nothing Left: - Common femoral vein: Compressible - Deep femoral vein: Compressible - Femoral vein: Compressible - Popliteal vein: Compressible - Posterior tibial vein: Waveforms present - Other: Nothing IMPRESSION: No right or left lower extremity deep venous thrombosis Bilateral Upper Extremity Venous Duplex Clinical History: To rule out thrombosis Comparison: US BILAT LOWER DVT on DOS: 01/17/25 Findings: Duplex Doppler evaluation of the venous systems of the right and left lower neck and upper extremities including color Doppler and spectral/pulsed waveform analysis was performed. RIGHT SIDE: The internal jugular vein demonstrates partial compressibility. The subclavian vein is patent on color Doppler evaluation without intraluminal thrombus and demonstrates waveform variability. The visualized portion of the brachiocephalic vein is patent on color Doppler evaluation without intraluminal thrombus and demonstrates waveform variability. The axillary vein demonstrates appropriate compressibility and waveform variability. The brachial veins demonstrate appropriate compressibility and patency on Doppler evaluation. The basilic vein demonstrates appropriate compressibility and patency on Doppler evaluation. Thrombus in the cephalic vein. LEFT SIDE: The internal jugular vein demonstrates no compressibility. The subclavian vein is patent on color Doppler evaluation without intraluminal thrombus and demonstrates waveform variability. The visualized portion of the brachiocephalic vein is patent on color Doppler evaluation without intraluminal thrombus and demonstrates waveform variability. The axillary vein demonstrates appropriate compressibility and waveform variability. The brachial veins demonstrate appropriate compressibility and patency on Doppler evaluation. The basilic vein demonstrates appropriate compressibility and patency on Doppler evaluation. Cephalic vein not visualized Impression: Partial thrombus in the right internal jugular vein and cephalic vein. Nonvisualization of the left cephalic vein. Could not compress left internal jugular vein. If clinical concern/symptoms persist or worsen, short-interval follow-up study is suggested. ABDOMINAL RADIOGRAPH Indication: No bowel sounds Technique: Single frontal view of the abdomen was obtained Comparison: XY KUB ABDOMEN SINGLE VIEW on DOS: 01/13/25 FINDINGS: Lines and tubes: There is a surgical drain overlying the right upper quadrant and pelvis. There is an enteric tube terminating in the stomach. There are lilly overlying the right hemiabdomen. There are no dilated bowel loops. No supine radiographic evidence of pneumoperitoneum. Bony structures unremarkable. IMPRESSION: 1. Nonobstructive bowel gas pattern. CHEST RADIOGRAPH Indication: RE-CHECK BILAT PLEURAL EFFUSIONS Technique: Single frontal view of the chest was obtained COMPARISON: XY CHEST PORTABLE on DOS: 01/16/25, XY CHEST PORTABLE on DOS: 01/15/25, XY CHEST PORTABLE on DOS: 01/14/25, XY CHEST PORTABLE on DOS: 01/13/25, XY CHEST XRAY 1 VIEW on DOS: 01/13/25 FINDINGS: Lines and Tubes: Unchanged. Lungs: Grossly stable appearing diffuse increased prominence of the pulmonary vasculature and bilateral perihilar infiltrate. Bilateral pleural effusions are stable in appearance. No pneumothorax. Cardiomediastinal contours: Cardiomegaly. Bones: Unremarkable IMPRESSION: 1. Cardiomegaly, diffuse increased prominence of the pulmonary vasculature, bilateral perihilar infiltrate and bilateral pleural effusions. 2. Lines and tubes unchanged. BILATERAL LOWER EXTREMITY ARTERIAL DUPLEX ULTRASOUND STUDY: REASON FOR EXAM: Discolored and cold extremities. rule out limb ischemia TECHNIQUE: The full lengths of the arterial segments were evaluated with color- flow Doppler ultrasound. Suspected abnormalities were evaluated with waters scale ultrasound. Roofer spectral Doppler waveforms, with velocity measurements were obtained. Spectral waveforms with velocity measurements were obtained 2 to 4 cm central to any areas of significant stenosis. Common femoral, superficial femoral, popliteal, posterior tibial, and dorsal pedal arteries were evaluated. FINDINGS: Note that the heart rhythm is irregular and this may skew velocity measurements and extrapolated degree of stenosis. Right: There is diffuse atherosclerotic plaque throughout the right lower extremity. The common femoral artery waveform is multiphasic with a brisk upstroke. The superficial femoral and popliteal arteries are patent with multiphasic waveforms. The posterior tibial and dorsal pedal arteries are patent with multiphasic waveforms. Left: There is diffuse atherosclerotic plaque throughout the left lower extremity. The common femoral artery waveform is multiphasic with a brisk upstroke. The superficial femoral and popliteal arteries are patent with multiphasic waveforms. The posterior tibial and dorsal pedal arteries are patent with multiphasic waveforms. IMPRESSION: No hemodynamically significant stenosis. BILATERAL UPPER EXTREMITY ARTERIAL DUPLEX INDICATION: Rule out limb ischemia FINDINGS: RIGHT: The right common carotid, right subclavian, axillary, brachial, ulnar, and radial arteries are patent with triphasic waveforms. No focal velocity shifts or evidence of stenosis. Velocities and ratios within normal limits No evidence of hemodynamically significant stenosis in the upper extremities. IMPRESSION: No evidence of hemodynamically significant stenosis in the upper extremities. CHEST RADIOGRAPH Indication: INTUBATED Technique: Single frontal view of the chest was obtained Comparison: XY CHEST PORTABLE on DOS: 01/22/25, XY CHEST PORTABLE on DOS: 01/21/25, XY CHEST PORTABLE on DOS: 01/20/25 IMPRESSION: There are low lung volumes. Small bilateral pleural effusions, left greater than right. Support lines and tubes appear similar in position. Left IJ catheter tip may be entering the azygous. Endotracheal and enteric tube appear satisfactory in position. Otherwise no significant interval change. Procedure: XY SMALL BOWEL SERIES-W GASTROGRA Reason for study/Clinical History: R/O obstruction Comparison Study: None Technique: Single contrast small bowel series performed. FINDINGS/IMPRESSION: Postop changes of the abdomen are noted with skin closure lilly in the midline. 2 surgical drains are noted in the abdomen and pelvis. Enteric tube is in the stomach. Initial varnish cooker view of the abdomen and pelvis appears demonstrates no acute process. Contrast is identified within the colon by 4 hours. This represents a nonobstructing small bowel transit time. CHEST RADIOGRAPH Indication: ETT ADVANCED. CHECK POSITION Technique: Single frontal view of the chest was obtained Comparison: XY CHEST PORTABLE on DOS: 01/25/25, XY CHEST PORTABLE on DOS: 01/23/25, XY CHEST PORTABLE on DOS: 01/23/25, XY CHEST PORTABLE on DOS: 01/22/25, XY CHEST PORTABLE on DOS: 01/21/25, XY CHEST PORTABLE on DOS: 01/25/25 FINDINGS: Lines and Tubes: The endotracheal tube terminates 5.4 cm above the jhonny. Left central venous catheter appears to terminate in the azygous vein. The enteric tube terminates in the stomach. Lungs: Bibasilar airspace disease. Pleura: Bilateral pleural effusions, left greater than right similar to prior study. No pneumothorax. Cardiomediastinal contours: Unremarkable Bones: No acute osseous abnormality. IMPRESSION: 1. ET tube 1.4 jhonny. Retract by 3cm. Examination: XY KUB ABDOMEN SINGLE VIEW History: s/p lower extremity picc line placement Comparison: XY KUB ABDOMEN SINGLE VIEW on DOS: 01/20/25, XY KUB ABDOMEN SINGLE VIEW on DOS: 01/13/25, CT CT AB PEL WO CON-NO ORAL OR IV on DOS: 01/12/25 TECHNIQUE: Frontal views of the abdomen was obtained. FINDINGS: Postop changes with skin closure lilly across the left abdomen. Femoral venous catheter in place with the tip at L2. [address] Oral contrast noted throughout the colon from the cecum to the rectum. No findings to suggest bowel obstruction. Surgical clips over the right inguinal area Bowel gas pattern is unremarkable. The lung bases are unremarkable. No acute osseous abnormality identified. IMPRESSION: 1. Nonobstructive bowel gas pattern. 2. Femoral venous catheter in place with the tip at L Clinical History: picc line placement Comparison: US BILAT UPPER EXT ART DUPLEX on DOS: 01/21/25, US BILAT LOW EXT ART DUPLEX on DOS: 01/21/25, US BI LAT UPPER DVT on DOS: 01/17/25, US BILAT LOWER DVT on DOS: 01/17/25 Technique: Targeted sonographic evaluation of the soft tissues of the our vein arm vein was obtained utilizing grayscale and color Doppler imaging. Findings/Impression: Sonographic assistance for PICC line placement. Please refer to procedural report for detailed findings. CHEST RADIOGRAPH Indication: mechanical ventilation Technique: Single frontal view of the chest was obtained Comparison: XY CHEST PORTABLE on DOS: 01/27/25, XY CHEST PORTABLE on DOS: 01/26/25, XY CHEST XRAY 1 VIEW on DOS: 01/25/25 FINDINGS: Lines and Tubes: Endotracheal tube 1.4 cm above the jhonny. ENTERIC TUBE BELOW THE DIAPHRAGM IN THE STOMACH Lungs: No focal consolidation. Pleura: No effusion. No pneumothorax. Cardiomediastinal contours: Unremarkable Bones: No acute osseous abnormality. IMPRESSION: 1. ENDOTRACHEAL TUBE IN PLACE 1.4 CM ABOVE THE JHONNY 2. Enteric tube in the stomach 3. No change in the cardiopulmonary findings study earlier today. EXAM: CT HEAD WITHOUT CONTRAST INDICATION: to rule out stroke TECHNIQUE: CT of the head without intravenous contrast. Radiation Dose : 1. Head: CT Dose: CTDI volume is 57.8 mGy. Dose-length product is 1139.09 mGy*cm The dose indicators for CT are the volume Computed Tomography (CT) Dose Index (CTDIvol) and the Dose Length Product (DLP), and are measured in units of mGy and mGy-cm, respectively. These indicators are not patient dose, but values generated from the CT scanner acquisition factors. The report includes radiation exposure data for exposures received during this examination. COMPARISON: None FINDINGS: There is no evidence of acute intracranial hemorrhage, extra-axial collection, mass effect, midline shift, herniation or hydrocephalus. Increased prominence of the ventricles, sulci and cisterns consistent with the sequelae of atrophic cortical volume loss. The waters-white differentiation is intact. Moderate diffuse confluent periventricular and subcortical white matter hypoattenuation is nonspecific but may be related to small vessel ischemic disease. Sphenoid mucosal sinus disease. The remaining visualized paranasal sinuses and mastoid air cells are clear. The surrounding soft tissues and osseous structures are unremarkable. Endotracheal tube and enteric catheter noted. IMPRESSION: 1. No acute intracranial abnormality. 2. 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 Exam: CT CT AB PEL WO CON-NO ORAL OR IV History: sTOOL IN carmen DRAIN Comparison Study: CT CT AB PEL WO CON-NO ORAL OR IV on DOS: 01/12/25 Technique: Multidetector spiral CT of the abdomen was performed from lung bases to pubic symphysis. Imaging was performed without IV contrast. Axial, coronal and sagittal multiplanar reformats were obtained from the axial data set by the technologist. Radiation Dose : 1. Abdomen/Pelvis: CTDIvol 12.75 mGy, DLP 730.81 mGy*cm. Findings: Evaluation of solid organs is limited due to lack of intravenous contrast use. Lung Bases: New small left pleural effusion with adjacent atelectasis. Right posterior basilar atelectasis. Liver: The liver is normal in size. No focal lesions. Gallbladder and Biliary Tree: Moderate pericholecystic edema. Spleen: New moderate perisplenic fluid may represent ascites versus hematoma. Pancreas: The pancreas is grossly normal in appearance. Adrenal Glands: Unremarkable Kidneys: Moderate bilateral renal atrophy. Kidneys are otherwise grossly normal without calculi or hydronephrosis. Bladder: Grossly unremarkable for degree of distention. Perez catheter. Bowel: The stomach is grossly normal in appearance. Interval placement of enteric catheter terminating in the gastric antrum. New anastomotic bowel sutures within the central abdomen. The appendix is not visualized; however, no secondary findings of acute appendicitis identified. Ascites: Interval placement of bilateral mohamud-Steele percutaneous abdominal drains within the central and lower abdomen. Small collections of pneumoperitoneum noted within the left abdomen, decreased when compared to the prior exam, in addition to small volume abdominopelvic ascites. Lymphadenopathy: No mesenteric, retroperitoneal or periportal lymphadenopathy. Abdominal Wall and Mesentery: Unremarkable. Vasculature: The visualized abdominal aorta is normal in size and caliber. Atherosclerotic vascular calcifications. Evaluation of abdominal and pelvic vessels is limited due to lack of intravenous contrast. Pelvic Organs: Unremarkable Musculoskeletal: No aggressive focal bony lesions, acute fractures or dislocation. IMPRESSION: 1. Interval placement of bilateral mohamud-Steele percutaneous abdominal drains within the central and lower abdomen. Anastomotic bowel sutures noted. 2. Small collections of pneumoperitoneum noted within the left abdomen, decreased when compared to the prior exam, in addition to small volume abdominopelvic ascites. 3. New small left pleural effusion with adjacent atelectasis. 4. New moderate perisplenic fluid may represent ascites versus hematoma. 5. Moderate pericholecystic edema. CHEST RADIOGRAPH Indication: INTUBATED Technique: Single frontal view of the chest was obtained Comparison: XY CHEST PORTABLE on DOS: 01/29/25, XY CHEST PORTABLE on DOS: 01/28/25, XY CHEST PORTABLE on DOS: 01/27/25 IMPRESSION: Endotracheal tube approximately 3 cm from the jhonny in stable position. Enteric tube tip in the region of the stomach. Heart appears stable in size. The patient is rotated to the left. Possible small left pleural effusion. No pneumothorax or significant interval change. CT ABDOMEN WITHOUT CONTRAST, HISTORY: PERISPLENIC ABSCESS DRAINAGE COMPARISON: US ABDOMEN LIMITED on DOS: 01/31/25, CT CT AB PEL WO CON-NO ORAL OR IV on DOS: 01/29/25, XY KUB ABDOMEN SINGLE VIEW on DOS: 01/26/25 PROCEDURE: Informed consent was obtained. The patient was placed supine on the CT scanner. IV sedation was administered. The fluid collection was localized under US/CT scan and the overlying skin prepped with chlorhexidine which was allowed to dry and draped in the usual sterile fashion and infiltrated with Xylocaine. Time out was performed. With US/CT guidance, a 19-gauge centesis needle catheter was advanced via trans-peritoneal approach into the fluid collection. Following aspiration of a small amount of fluid, a 0.035 wire was advanced into the fluid collection. Placement was confirmed with CT scan. After serial dilatation, a 8 [place] multipurpose pigtail drain was placed into the collection. Approximately 50 cc of purulent liquid was aspirated, with specimen sent for appropriate laboratory/cytology/laboratory and cytology evaluation. The drain was sutured at the skin surface and connected to suction drainage. No immediate complication was noted. Post procedure CT imaging through the drain site was obtained. DLP =2303 mGy-cm. SEDATION: Dr. Beulah Parra was personally responsible for the administration of moderate sedation during the procedure performed, including the use of an independent trained observer who had no other duties during the procedure. The drugs utilized were IV fentanyl and versed (see nursing log for details). The total time of supervision by the attending physician was approximately 30 minutes. FINDINGS: Limited CT scan of through the abdomen demonstrates a moderate sized fluid collection in the perisplenic region. Collection appears complex. Post procedure scan shows pigtail drain within the collection. No immediate complication was identified. IMPRESSION: US/CT guided placement of 8 new zealander pigtail drain into a perisplenic abscess with 50 mL purulent fluid removed. CHEST RADIOGRAPH Indication: RESPIRATORY FAILURE Technique: Single frontal view of the chest was obtained COMPARISON: XY CHEST PORTABLE on DOS: 01/30/25, XY CHEST PORTABLE on DOS: 01/29/25, XY CHEST PORTABLE on DOS: 01/28/25, XY CHEST PORTABLE on DOS: 01/27/25, XY CHEST PORTABLE on DOS: 01/27/25 FINDINGS: Lines and Tubes: Endotracheal tube in satisfactory position. Lungs: Left lower lobe airspace disease. Pleura: No effusion.No pneumothorax. Cardiomediastinal contours: Unremarkable Bones: Unremarkable IMPRESSION: Left lower lobe airspace disease CT ABDOMEN WITHOUT CONTRAST, HISTORY: PERISPLENIC ABSCESS DRAINAGE COMPARISON: US ABDOMEN LIMITED on DOS: 01/31/25, CT CT AB PEL WO CON-NO ORAL OR IV on DOS: 01/29/25, XY KUB ABDOMEN SINGLE VIEW on DOS: 01/26/25 PROCEDURE: Informed consent was obtained. The patient was placed supine on the CT scanner. IV sedation was administered. The fluid collection was localized under US/CT scan and the overlying skin prepped with chlorhexidine which was allowed to dry and draped in the usual sterile fashion and infiltrated with Xylocaine. Time out was performed. With US/CT guidance, a 19-gauge centesis needle catheter was advanced via trans-peritoneal approach into the fluid collection. Following aspiration of a small amount of fluid, a 0.035 wire was advanced into the fluid collection. Placement was confirmed with CT scan. After serial dilatation, a 8 [place] multipurpose pigtail drain was placed into the collection. Approximately 50 cc of purulent liquid was aspirated, with specimen sent for appropriate laboratory/cytology/laboratory and cytology evaluation. The drain was sutured at the skin surface and connected to suction drainage. No immediate complication was noted. Post procedure CT imaging through the drain site was obtained. DLP =2303 mGy-cm. SEDATION: Dr. Beulah Parra was personally responsible for the administration of moderate sedation during the procedure performed, including the use of an independent trained observer who had no other duties during the procedure. The drugs utilized were IV fentanyl and versed (see nursing log for details). The total time of supervision by the attending physician was approximately 30 minutes. FINDINGS: Limited CT scan of through the abdomen demonstrates a moderate sized fluid collection in the perisplenic region. Collection appears complex. Post procedure scan shows pigtail drain within the collection. No immediate complication was identified. IMPRESSION: US/CT guided placement of 8 new zealander pigtail drain into a perisplenic abscess with 50 mL purulent fluid removed. PLAN: Routine tube care. US ABDOMEN LIMITED HISTORY: EVALUATION OF POSSIBLE PERISPLENIC FLUID COLLECTION COMPARISON: CT CT AB PEL WO CON-NO ORAL OR IV on DOS: 01/29/25, XY KUB ABDOMEN SINGLE VIEW on DOS: 01/26/25, XY KUB ABDOMEN SINGLE VIEW on DOS: 01/20/25 TECHNIQUE: Transverse and longitudinal grayscale and color sonographic images were obtained of the spleen. FINDINGS: IMPRESSION: Non visualization of the perisplenic fluid collection previously seen on CT. Possible trace left pleural effusion. CT ABDOMEN WITHOUT CONTRAST, HISTORY: PERISPLENIC ABSCESS DRAINAGE COMPARISON: US ABDOMEN LIMITED on DOS: 01/31/25, CT CT AB PEL WO CON-NO ORAL OR IV on DOS: 01/29/25, XY KUB ABDOMEN SINGLE VIEW on DOS: 01/26/25 PROCEDURE: Informed consent was obtained. The patient was placed supine on the CT scanner. IV sedation was administered. The fluid collection was localized under US/CT scan and the overlying skin prepped with chlorhexidine which was allowed to dry and draped in the usual sterile fashion and infiltrated with Xylocaine. Time out was performed. With US/CT guidance, a 19-gauge centesis needle catheter was advanced via trans-peritoneal approach into the fluid collection. Following aspiration of a small amount of fluid, a 0.035 wire was advanced into the fluid collection. Placement was confirmed with CT scan. After serial dilatation, a 8 [place] multipurpose pigtail drain was placed into the collection. Approximately 50 cc of purulent liquid was aspirated, with specimen sent for appropriate laboratory/cytology/laboratory and cytology evaluation. The drain was sutured at the skin surface and connected to suction drainage. No immediate complication was noted. Post procedure CT imaging through the drain site was obtained. DLP =2303 mGy-cm. SEDATION: Dr. Beulah Parra was personally responsible for the administration of moderate sedation during the procedure performed, including the use of an independent trained observer who had no other duties during the procedure. The drugs utilized were IV fentanyl and versed (see nursing log for details). The total time of supervision by the attending physician was approximately 30 minutes. FINDINGS: Limited CT scan of through the abdomen demonstrates a moderate sized fluid collection in the perisplenic region. Collection appears complex. Post procedure scan shows pigtail drain within the collection. No immediate complication was identified. IMPRESSION: US/CT guided placement of 8 new zealander pigtail drain into a perisplenic abscess with 50 mL purulent fluid removed. CHEST RADIOGRAPH Indication: pneumonia Technique: Single frontal view of the chest was obtained COMPARISON: XY CHEST PORTABLE on DOS: 02/01/25, XY CHEST PORTABLE on DOS: 01/31/25, XY CHEST PORTABLE on DOS: 01/30/25, XY CHEST PORTABLE on DOS: 01/29/25, XY CHEST PORTABLE on DOS: 01/28/25 FINDINGS: Lines and Tubes: Unchanged. Lungs: Left basilar pulmonary airspace disease. Pleura: No effusion. No pneumothorax. Cardiomediastinal contours: Cardiomegaly. Bones: Unremarkable IMPRESSION: 1. Left basilar pulmonary airspace disease. 2. Cardiomegaly. 3. Lines and tubes unchanged. Procedure: XY SMALL BOWEL SERIES-W GASTROGRA Exam Date: 02/02/2025 09:33 AM Reason for study/Clinical History: Hx of small bowel resection, leakage of anastomosis area Comparison Study: XY SMALL BOWEL SERIES-W GASTROGRA on DOS: 01/24/25 Technique: Single contrast small bowel series performed. Findings: Initial varnish cooker view of the abdomen and pelvis appears demonstrates no acute process. Contrast is identified within the colon by 2 hr. This represents a normal small bowel transit time. Small bowel loops are normal in size. Normal mucosal pattern. No evidence of small bowel obstruction, stricture, or mucosal abnormality. The terminal ileum is well visualized and is unremarkable. IMPRESSION: Normal small bowel series. Exam: XY KUB ABDOMEN SINGLE VIEW Indication: f/u gastrografin series Comparison: CT ABDOMEN WITHOUT CONTRAST on DOS: 01/31/25, US ABDOMEN LIMITED on DOS: 01/31/25, XY KUB ABDOMEN SINGLE VIEW on DOS: 01/26/25, XY KUB ABDOMEN SINGLE VIEW on DOS: 01/20/25, XY KUB ABDOMEN SINGLE VIEW on DOS: 01/13/25 Technique: 1 radiographic views of the abdomen. Findings: Nonspecific bowel-gas pattern. Surgical drains are present in the abdomen. Right central venous catheter in-situ. Enteric contrast is present in the colon. There is no definite evidence for pneumoperitoneum. No abnormal calcifications noted. Impression: Enteric contrast is present in the colon. CHEST RADIOGRAPH Indication: Pneumonia Technique: Single frontal view of the chest was obtained COMPARISON: XY CHEST XRAY 1 VIEW on DOS: 02/04/25, XY CHEST XRAY 1 VIEW on DOS: 02/03/25, XY CHEST XRAY 1 VIEW on DOS: 02/02/25, XY CHEST PORTABLE on DOS: 02/01/25, XY CHEST PORTABLE on DOS: 01/31/25 FINDINGS: Lines and Tubes: Slight interval retraction of the endotracheal tube such that the tip now projects approximately 4.6 cm above the level of the jhonny. Enteric catheter unchanged. Lungs: Stable moderate diffuse increased prominence of the pulmonary vasculature and small left pleural effusion. No evidence of focal consolidation. No pneumothorax. Cardiomediastinal contours: Cardiomegaly. Bones: Unremarkable IMPRESSION: 1. Slight interval retraction of the endotracheal tube. Enteric catheter unchanged. 2. Stable cardiomegaly, small left pleural effusion and moderate diffuse increased prominence of the pulmonary vasculature. CHEST RADIOGRAPH Indication: VENTILATED Technique: Single frontal view of the chest was obtained COMPARISON: XY CHEST PORTABLE on DOS: 02/06/25, XY CHEST XRAY 1 VIEW on DOS: 02/05/25, XY CHEST XRAY 1 VIEW on DOS: 02/04/25, XY CHEST XRAY 1 VIEW on DOS: 02/03/25, XY CHEST XRAY 1 VIEW on DOS: 02/02/25 FINDINGS: Lines and Tubes: Unchanged. Lungs: Interval decrease in left pleural effusion with mild residual left basilar pulmonary airspace disease. No pneumothorax. Cardiomediastinal contours: Cardiomegaly. Bones: Unremarkable IMPRESSION: 1. Interval decrease in left pleural effusion with mild residual left basilar pulmonary airspace disease. 2. Cardiomegaly. 3. Lines and tubes unchanged. CHEST RADIOGRAPH Indication: Pneumonia Technique: Single frontal view of the chest was obtained COMPARISON: XY CHEST XRAY 1 VIEW on DOS: 02/08/25, XY CHEST PORTABLE on DOS: 02/07/25, XY CHEST PORTABLE on DOS: 02/06/25, XY CHEST XRAY 1 VIEW on DOS: 02/05/25, XY CHEST XRAY 1 VIEW on DOS: 02/04/25 FINDINGS: Lines and Tubes: Enteric catheter and left basilar chest tube in satisfactory position. Lungs: Clear. Pleura: No effusion. No pneumothorax. Cardiomediastinal contours: Cardiomegaly. Unchanged pulmonary vascular congestion. Bones: Unremarkable. IMPRESSION: Lines and tubes in satisfactory position. No significant interval change. Procedure: XY SMALL BOWEL SERIES-W GASTROGRA Exam Date: 02/11/2025 10:50 AM Reason for study/Clinical History: STATUS POST RESECTION. FOLLOW UP CHECK FOR LEAKAGE Comparison Study: XY SMALL BOWEL SERIES-W GASTROGRA on DOS: 02/02/25, CT ABDOMEN WITHOUT CONTRAST on DOS: 01/31/25, XY SMALL BOWEL SERIES-W GASTROGRA on DOS: 01/24/25 Technique: Single contrast small bowel series performed. Findings: Initial varnish cooker view of the abdomen and pelvis appears demonstrates no acute process. Contrast is identified within the colon by 30 min. This represents a normal small bowel transit time. Small bowel loops are normal in size. Normal mucosal pattern. No evidence of small bowel obstruction, stricture, or mucosal abnormality. The terminal ileum is well visualized and is unremarkable. IMPRESSION: Normal small bowel series. CHEST RADIOGRAPH Indication: FU Technique: Single frontal view of the chest was obtained COMPARISON: XY CHEST XRAY 1 VIEW on DOS: 02/11/25, XY CHEST XRAY 1 VIEW on DOS: 02/08/25, XY CHEST PORTABLE on DOS: 02/07/25, XY CHEST PORTABLE on DOS: 02/06/25, XY CHEST XRAY 1 VIEW on DOS: 02/05/25 FINDINGS: Lines and Tubes: Left lung base small bore percutaneous thoracostomy. Lungs: Small left pleural effusion. The lungs are otherwise clear. No pneumothorax. Cardiomediastinal contours: Unremarkable Bones: Unremarkable IMPRESSION: 1. Small left pleural effusion and left basilar chest tube. Indication: F/O OPERATION Technique: CT axial images of the abdomen and pelvis are obtained with intravenous contrast. Coronal and sagittal reformats were obtained. Radiation Dose Information: CTDI volume is 12 mGy. Dose-length product is 671 mGy*cm Comparison: None FINDINGS: The lung bases demonstrate bibasilar atelectasis. Left lower lobe consolidation. Small left pleural effusion, tiny right pleural effusion. Adrenal glands unremarkable. Perisplenic catheter. Similar-appearing splenic laceration measuring 2.2 cm in parenchymal depth. Left subdiaphragmatic/splenic subcapsular collection measuring 7.1 x 1.1 cm with the pigtail catheter situated appropriately within the collection. Pancreas unremarkable. No enhancing hepatic lesion. No CT evidence for cholelithiasis. Right posterior perihepatic small collection measuring 1.4 x 1.7 cm, previously 3.1 x 1.8 cm. Kidneys demonstrate no hydronephrosis. Region of Left renal anterior pole nonenhancing measuring 2.7 by 1.1 cm Stomach is partially distended. The small bowel loops are moderately distended. There are left abdominal drainage catheters. There is pneumoperitoneum.. There is possibly a small amount of extraluminal contrast in the region of the pneumoperitoneum, axial image 51. Small fluid collection surrounding the proximal right surgical drainage catheter measuring 1.5 x 1.6 cm, axial image 51 of 101. Colonic diverticular disease. There is moderate bowel wall thickening with surrounding stranding involving the ascending colon. Abdominal aortic atherosclerotic disease and tortuosity. Small amount of free pelvic fluid. There are pelvic drainage catheters. No inguinal lymphadenopathy. [id number] bilateral sacroiliac degenerative joint disease. Moderate to advanced thoracolumbar degenerative disc disease. Thoracolumbar levocurvature. IMPRESSION: Left abdominal pneumoperitoneum which overall appears similar/slightly more pronounced than on the examination from 01/29/2025. There appears to be a small amount of extraluminal contrast, overall difficult to characterize due to the adjacent drainage catheters and bowel, raising concern for possible continued leakage. Recommend follow-up CT abdomen pelvis without oral and IV contrast in 6-12 hours to evaluate and see if this contrast persists versus represents contrast within collapsed bowel. Perisplenic subcapsular collection/subdiaphragmatic collection measuring 7.1 x 1.1 cm with pigtail catheter in the collection overall decreased in size from previous examination. Stable appearing splenic laceration. Posterior right hepatic lobe small collection measuring 1.4 x 1.7 cm, previously 3.1 x 1.8 cm. Small left and tiny right pleural effusions. Left lower lobe consolidation/atelectasis. Region of Left renal anterior pole non enhancement measuring 2.7 x 1.1 cm could represent infarction, contusion, acute tubular necrosis. Bowel wall thickening of the ascending colon with differential considerations including colitis, inflammatory disease. Small amount of free pelvic fluid. Indication: f/o to r/o extraluminal contrast Technique: CT axial images of the abdomen and pelvis are obtained without contrast. Coronal and sagittal reformats were obtained. Radiation Dose Information: CTDI volume is 16.39 mGy. Dose-length product is 3.52 mGy*cm Comparison: CT CT AB PEL WO CON-NO ORAL OR IV on DOS: 01/29/25, CT CT AB PEL WO CON-NO ORAL OR IV on DOS: 01/12/25 FINDINGS: There is limited interpretation of the abdomen and pelvis without administration of intravenous contrast. Left lower lobe consolidation. Right lower lobe atelectasis. Small bilateral pleural effusions. Adrenal glands unremarkable in shape. Perisplenic catheter with small perisplenic subcapsular / diaphragmatic fluid collection similar to yesterday's examination. Stable posteriorm right perihepatic fluid collection measuring approximately 1.9 cm. Pancreas and liver unremarkable in shape. No CT evidence for cholelithiasis. No hydronephrosis. Stomach is partially distended. Redemonstration of abdominal and pelvic drainage catheters. Contrast within the descending and rectosigmoid colon, distal small bowel. Colonic diverticular disease. Redemonstration of pneumoperitoneum/free air. In comparison to yesterday's examination there is no definitive free contrast. The contrast described on yesterday's examination was likely within a loop of bowel. Bladder decompressed by Perez catheter. No free pelvic fluid. No inguinal lymphadenopathy. The osseous structures are stable. Right IJ central venous catheter terminating in the IVC. IMPRESSION: Limited evaluation without contrast. In comparison estrogens examination, there is no definitive extraluminal contrast. The previously seen contrast was likely within the loop of bowel or may have been suctioned by the drainage catheters. Evaluate clinically There does still remain pneumoperitoneum, similar to previous examination mostly within the left abdominal mesentery and anterior pelvic mesentery Stable perisplenic fluid collection with pigtail drainage catheter. Stable posterior right perihepatic collection Bibasilar atelectasis/ consolidation, [id number]-right and small bilateral pleural effusions. Other findings as described. EXAM: CT ANGIO AORTIC ABDOMINAL HISTORY: RULE OUT BOWEL ISCHEMIA COMPARISON: CT CT AB PEL WO CON-NO ORAL OR IV on DOS: 02/17/25 TECHNIQUE: CT angiogram of the abdomen and pelvis. CT scans at this facility use dose modulation, iterative reconstruction, and/or weight based dosing when appropriate to reduce radiation dose to as low as reasonably achievable. 100 mL of low osmolar contrast was administered without adverse effect. 3-D postprocessing was performed on a separate workstation under radiologist supervision. MIPs were created. VASCULAR FINDINGS: Normal caliber of abdominal aorta without evidence of aortic dissection or aneurysm. The mesenteric, and bilateral renal, iliac and femoral arteries are widely patent without any focal stenosis or aneurysm. Mixed atherosclerotic plaque along the abdominal aorta and throughout the visualized vasculature. No focus of contrast extravasation. NON-VASCULAR FINDINGS: [LUNG BASES]: Small left and trace right pleural effusions partial collapse of the left lower lobe. The cardiac size is normal without pericardial effusion. [LIVER]: Normal hepatic size without suspicious focal lesion. [GALLBLADDER AND BILIARY TREE]: No cholelithiasis. trace pericholecystic edema which may be related to third-spacing. No biliary dilatation. [SPLEEN]: Perisplenic fluid collection status post left-sided pigtail percutaneous drainage placement. [PANCREAS]: Unremarkable. [ADRENAL GLANDS]: Unremarkable [KIDNEYS]: No hydronephrosis. No nephroureterolithiasis. Asymmetric hypoenhancement of the left anterior kidney which may reflect underlying infarction versus hypoperfusion [BLADDER]: Perez catheter placement. Contrast within bladder [PELVIC ORGANS]: Unremarkable. [BOWEL/MESENTERY]: Stomach is normal. No CT evidence of bowel obstruction. Minimal sigmoid diverticulosis. Scattered intraperitoneal free air. Postsurgical changes with multiple surgical drains in place. [ASCITES]: Absent [LYMPHADENOPATHY]: No pathologically enlarged lymph nodes by CT size criteria [ABDOMINAL WALL]: Postsurgical changes along the lower mid abdomen. [MUSCULOSKELETAL]: No acute fracture or aggressive focal osseous lesion. Multifocal degenerative change of the visualized spine. IMPRESSION: 1. In regards to the clinical question, no definitive area of bowel Hypoperfusion allowing for limitation given significant decompression of multiple loops of bowel and postsurgical changes with scattered intraperitoneal free air. 2. No portal venous gas. No definitive pneumatosis intestinalis. 3. Small left-sided pleural effusion. Procedure: [place] NM HIDA SCAN Exam Date: 02/18/2025 03:09 PM Clinical History: ELEVATED ALK PHOS,BILIRUBIN Comparison Study: None Nuclear Medicine Hepatobiliary Scan. Technique: Following the intravenous administration of 4.1 mCi of technetium 99m labeled Choletec multiple planar abdominal planar images were obtained in anterior projection in 5 minute intervals for45 minutes . Right lateral images were obtained at 45 minutes after injection. Findings: The liver appears grossly normal in size. There is no abnormal persistence of the cardiac or blood pool activity. There is prompt visualization of the gallbladder and excretion of activity into the small bowel. Impression: Unremarkable hepatobiliary study without evidence of acute cholecystitis. XY GASTROGRAFIN ENEMA SINGLE CON HISTORY: R/O COLONIC EXTRAVASATION COMPARISON: CT CT ABD PELVIS W CON-ORAL IV on DOS: 02/16/25, XY KUB ABDOMEN SINGLE VIEW on DOS: 02/15/25, XY SMALL BOWEL SERIES-W GASTROGRA on DOS: 02/11/25, XY KUB ABDOMEN SINGLE VIEW on DOS: 02/03/25, XY SMALL BOWEL SERIES-W GASTROGRA on DOS: 02/02/25 Technique: Contrast was introduced in a retrograde fashion under intermittent fluoroscopic observation with multiple spot films being obtained. Multiple overhead films including a post evacuation film were then obtained. Number of images :12 Fluoroscopy time:0.8 min FINDINGS: A frontal projection of the abdomen was obtained as a varnish cooker film. There are several surgical drains in place. Midline laparotomy skin lilly are noted. Under fluoroscopic visualization contrast flowed freely from the rectum to the cecum. 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 There is also contrast leak from the same area. IMPRESSION: 1. 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 CHEST RADIOGRAPH Indication: POST O.R.INTUBATION Technique: Single frontal view of the chest was obtained COMPARISON: XY CHEST XRAY 1 VIEW on DOS: 02/22/25, XY CHEST PORTABLE on DOS: 02/17/25, XY CHEST XRAY 1 VIEW on DOS: 02/15/25, XY CHEST XRAY 1 VIEW on DOS: 02/11/25, XY CHEST XRAY 1 VIEW on DOS: 02/08/25 FINDINGS: Endotracheal tube in satisfactory position. Enteric catheter in satisfactory position. Left lower lobe airspace disease. No effusion. No pneumothorax. Cardiomediastinal contours: Unremarkable. Bones: Unremarkable. IMPRESSION: Endotracheal tube in satisfactory position. CHEST RADIOGRAPH Indication: Pneumonia Technique: Single frontal view of the chest was obtained Comparison: XY CHEST XRAY 1 VIEW on DOS: 02/26/25, XY CHEST PORTABLE on DOS: 02/25/25, XY CHEST XRAY 1 VIEW on DOS: 02/22/25 IMPRESSION: Heart appears stable in size. Endotracheal tube and enteric tube appear unchanged in position. There is a small left effusion with possible consolidation or atelectasis of the left lung base. No right effusion. No pneumothorax. ABDOMINAL RADIOGRAPH Indication: INCREASE IN GASTRIC RESIDUAL Technique: Single frontal view of the abdomen was obtained Comparison: CT CT AB PEL WO CON-NO ORAL OR IV on DOS: 02/17/25 FINDINGS: Lines and tubes: There is a surgical drain overlying the left hemipelvis. There is a catheter overlying the right abdomen and pelvis. Perez catheter noted. There is contrast overlying the lower pelvis. There are no dilated bowel loops. Overall paucity of bowel gas throughout the abdomen. No supine radiographic evidence of pneumoperitoneum. Bony structures unremarkable. IMPRESSION: 1. No dilated bowel loops. CHEST RADIOGRAPH Indication: post extubation Technique: Single frontal view of the chest was obtained COMPARISON: XY CHEST XRAY 1 VIEW on DOS: 03/02/25, XY CHEST PORTABLE on DOS: 02/28/25, XY CHEST XRAY 1 VIEW on DOS: 02/27/25, XY CHEST XRAY 1 VIEW on DOS: 02/26/25, XY CHEST PORTABLE on DOS: 02/25/25 FINDINGS: Lines and Tubes: Enteric catheter in satisfactory position. Lungs: Pulmonary vascular congestion. Pleura: No effusion. No pneumothorax. Cardiomediastinal contours: Cardiomegaly. Bones: Unremarkable IMPRESSION: Pulmonary vascular congestion. XY UGI WITH GASTROGRAFIN HISTORY: f/u bowel resection, ileostomy COMPARISON: XY SMALL BOWEL SERIES-W GASTROGRA on DOS: 02/11/25, XY SMALL BOWEL SERIES-W GASTROGRA on DOS: 02/02/25, XY SMALL BOWEL SERIES-W GASTROGRA on DOS: 01/24/25 PROCEDURE: A varnish cooker radiograph was obtained prior to the procedure. Gastrografin was administered via enteric tube, and radiographs were obtained under intermittent fluoroscopic observation. Total fluoroscopic time was 0.7 minutes. FINDINGS: The varnish cooker image demonstrates an enteric tube in the stomach , some residual contrast in the rectum, and a left sided surgical drain. Bowel lilly are seen. Contrast visualized opacifying the stomach and duodenum. However contrast extravasation is seen in the proximal small bowel, possibly left sided jejunum near the surgical drain can be seen with a leak. Esophageal reflux was demonstrated during this exam. IMPRESSION: Contrast extravasation is seen in the proximal small bowel, possibly left sided jejunum near the surgical drain can be seen with a leak. CHEST RADIOGRAPH Indication: sob Technique: Single frontal view of the chest was obtained COMPARISON: XY CHEST XRAY 1 VIEW on DOS: 03/09/25, XY CHEST XRAY 1 VIEW on DOS: 03/04/25, XY CHEST XRAY 1 VIEW on DOS: 03/02/25, XY CHEST PORTABLE on DOS: 02/28/25, XY CHEST XRAY 1 VIEW on DOS: 02/27/25 FINDINGS: Right-sided PICC line with tip near the cavoatrial junction. NG tube entering the stomach. Trace left-sided pleural effusion with mild left basilar atelectasis /consolidation. Cardiac silhouette is mildly enlarged. Mild prominence of the pulmonary vasculature. IMPRESSION: Cardiomegaly with pulmonary venous congestion. Trace left-sided pleural effusion with mild left basilar atelectasis /consolidation. Exam: XY KUB ABDOMEN SINGLE VIEW Indication: bleeding colostomy and r/o abscess Comparison: XY KUB ABDOMEN SINGLE VIEW on DOS: 03/01/25, CT CT AB PEL WO CON-NO ORAL OR IV on DOS: 02/17/25, CT CT ABD PELVIS W CON-ORAL IV on DOS: 02/16/25, XY KUB ABDOMEN SINGLE VIEW on DOS: 02/15/25, XY SMALL BOWEL SERIES-W GASTROGRA on DOS: 02/11/25 Technique: 1 radiographic views of the abdomen. Findings: Nonspecific bowel-gas pattern. Surgical drain in the left hemiabdomen. Surgical clips in the right hemiabdomen. Small volume enteric contrast in the rectum. Enteric catheter in the stomach. No abnormal calcifications noted. Impression: Nonspecific bowel-gas pattern. CHEST RADIOGRAPH Indication: r/o pul. congestion Technique: Single frontal view of the chest was obtained Comparison: XY CHEST XRAY 1 VIEW on DOS: 03/23/25, XY CHEST PORTABLE on DOS: 03/21/25, XY CHEST XRAY 1 VIEW on DOS: 03/20/25, XY CHEST XRAY 1 VIEW on DOS: 03/09/25, XY CHEST XRAY 1 VIEW on DOS: 03/04/25 FINDINGS: Lines and Tubes: Enteric catheter and right PICC in satisfactory position. Lungs: Increased interstitial prominence. This may represent pulmonary vascular congestion and/or viral pneumonia. Lower lung volumes. Pleura: No effusion.No pneumothorax. Cardiomediastinal contours: Cardiomegaly. Bones: Unremarkable IMPRESSION: 1. Enteric catheter in satisfactory position. CLINICAL HISTORY: r/o dvt TECHNIQUE: Color and duplex doppler imagine of the bilateral lower extremity veins was performed. Vessel compression and augmentation if possible was also performed. COMPARISON: US BILAT LOW EXT ART DUPLEX on DOS: 01/21/25, US BI LAT UPPER DVT on DOS: 01/17/25, US BILAT LOWER DVT on DOS: 01/17/25 FINDINGS: Right Lower Extremity: Right common femoral vein: Normal compressibility and flow. Right superficial femoral vein: Normal compressibility and flow. Right popliteal vein: Normal compressibility and flow. Left Lower Extremity: Left common femoral vein: Normal compressibility and flow. Left superficial femoral vein: Normal compressibility and flow. Left popliteal vein: Normal compressibility and flow. There is a 2.9 cm left Padron's cyst. IMPRESSION: No sonographic evidence for DVT in the lower extremities. 2.9 cm left Padron's cyst. Bilateral Upper Extremity Venous Duplex Clinical History: r/o dvt Comparison: US BILAT LOWER DVT on DOS: 03/25/25, US BILAT UPPER EXT ART DUPLEX on DOS: 01/21/25, US BI LAT UPPER DVT on DOS: 01/17/25, US BILAT LOWER DVT on DOS: 01/17/25 Findings: Duplex Doppler evaluation of the venous systems of the right and left lower neck and upper extremities including color Doppler and spectral/pulsed waveform analysis was performed. RIGHT SIDE: The internal jugular vein demonstrates appropriate compressibility and waveform variability. The subclavian vein is patent on color Doppler evaluation without intraluminal thrombus and demonstrates waveform variability. The visualized portion of the brachiocephalic vein is patent on color Doppler evaluation without intraluminal thrombus and demonstrates waveform variability. The axillary vein demonstrates appropriate compressibility and waveform variability. The brachial veins demonstrate appropriate compressibility and patency on Doppler evaluation. The basilic vein demonstrates appropriate compressibility and patency on Doppler evaluation. The cephalic vein demonstrates intraluminal thrombus and noncompressibility LEFT SIDE: The internal jugular vein demonstrates appropriate compressibility and waveform variability. The subclavian vein is patent on color Doppler evaluation without intraluminal thrombus and demonstrates waveform variability. The visualized portion of the brachiocephalic vein is patent on color Doppler evaluation without intraluminal thrombus and demonstrates waveform variability. The axillary vein demonstrates appropriate compressibility and waveform variability. The brachial vein demonstrates intraluminal thrombus. The basilic vein demonstrates appropriate compressibility and patency on Doppler evaluation. The cephalic vein demonstrates intraluminal thrombus and noncompressibility. Impression: Thrombus is present in the left brachial vein and bilateral cephalic veins. PROCEDURE: XY CHEST PORTABLE DATE: 03/27/2025 05:12 AM HISTORY: sob Views:1 COMPARISON: XY CHEST PORTABLE on DOS: 03/26/25, XY CHEST XRAY 1 VIEW on DOS: 03/24/25, XY CHEST XRAY 1 VIEW on DOS: 03/23/25, XY CHEST PORTABLE on DOS: 03/21/25, XY CHEST XRAY 1 VIEW on DOS: 03/20/25 FINDINGS/IMPRESSION: Lungs: Bilateral infiltrates and pleural fluid is seen. No large consolidation is seen Mediastinum: Mediastinal structures appear unremarkable... Skeletal: The skeletal structures appear unremarkable. CHEST RADIOGRAPH Indication: Shortness of breath Technique: 1 view Comparison: XY CHEST PORTABLE on DOS: 03/27/25, XY CHEST PORTABLE on DOS: 03/26/25, XY CHEST XRAY 1 VIEW on DOS: 03/24/25, XY CHEST XRAY 1 VIEW on DOS: 03/23/25, XY CHEST PORTABLE on DOS: 03/21/25 FINDINGS: Lines and Tubes: Unchanged enteric tube and right upper extremity PICC. Lungs/Pleura: Similar bilateral perihilar interstitial opacities, basilar graded opacities, and small pleural effusions. No pneumothorax. Cardiomediastinum: Unchanged. Other: Unchanged osseous structures. IMPRESSION: No significant change from the previous study. Stable support devices. Persistent heart failure pattern CHEST RADIOGRAPH Indication: change in resp status, assess Technique: Single frontal view of the chest was obtained COMPARISON: XY CHEST XRAY 1 VIEW on DOS: 03/28/25, XY CHEST PORTABLE on DOS: 03/27/25, XY CHEST PORTABLE on DOS: 03/26/25, XY CHEST XRAY 1 VIEW on DOS: 03/24/25, XY CHEST XRAY 1 VIEW on DOS: 03/23/25 FINDINGS: Lines and Tubes: Right PICC in satisfactory position. Lungs: Pulmonary edema, unchanged. Pleura: No effusion.No pneumothorax. Cardiomediastinal contours: Unremarkable Bones: Unremarkable IMPRESSION: Pulmonary edema, unchanged. Condition at Discharge: Critical Final Diagnosis/Problems List Chronic Ischemic Changes and Cortical Atrophy Chronic diastolic heart failure without exacerbation Paroxysmal Afib Hypertension Acute hypoxic respiratory failure secondary to bilateral pleural effusion/ pneumonia Acute bacterial peritonitis due to small bowel perforation secondary to perforated diverticulitis, very poor prognosis Anion gap metabolic acidosis due to bowel ischemia and lactic acidosis Elevated bilirubin secondary to TPN [place] likely hemodynamically mediated/VMN Hypokalemia Hyperkalemia Hyponatremia Hypophosphatemia Septic shock secondary to acute bacterial peritonitis due to small bowel perforation secondary to perforated diverticulitis Acute on chronic anemia Severe thrombocytopenia HIT Acute DVT of bilateral upper extremities Hypothyroidism Type 2 Diabetes Mellitus, HbA1c: 8.1 Severe protein malnutrition Discharge Disposition: at Hospital Discharge Instruct/Medications Scheduled Levothyroxine Sodium (Levothyroxine Sodium), 1 TAB PO QAM, (Reported) Metoprolol Tartrate (Lopressor), 1 TAB PO BID, (Reported) Miscellaneous Medications Nortriptyline HCl (Nortriptyline Hydrochlori), 2 CAP PO, (Reported) Discharge Statement: "Patient was advised to return to the ER or call 911 if any headaches, dizziness, shortness of breath, chest pain, abdominal pain, bleeding, fevers, or worsening of medical condition. Patient was counseled about treatment plan, medications, possible side effects, patientverbalized understanding. All questions were answered to the best of my ability. This discharge took greater then 30 minutes in planning, reviewing documentation, counseling the patient, and discussing with other team members." ASSESSMENT ASSESSMENT Assessment CARMEL SNYDER RESIDENT Apr 04, 2025 11:40 ZBIGNIEW SELF MD Apr 07, 2025 11:14
== END 2025-04-03 19:54 | DRG 853 ==
LOC: ER 20:44 → OVERFLOW 01-13 07:40 → ICU WEST 01-13 15:28 → DOU 03-10 23:00 → ICU WEST 03-18 16:26 → DOU IN ICU 03-18 18:05 → DOU 03-18 18:16 → ICU CENTRL 03-18 21:50
PROVIDERS: ADMIT Internal Medicine; ATTEND Internal Medicine
PROC: 0D180Z8 Bypass Small Intestine to Small Intestine, Open Approach (ICD-10-PCS; 2025-01-13)
PROC: 0BH18EZ Insertion of Endotracheal Airway into Trachea, Via Natural or Artificial Opening Endoscopic (ICD-10-PCS; 2025-01-13)
PROC: 5A1955Z Respiratory Ventilation, Greater than 96 Consecutive Hours (ICD-10-PCS; 2025-01-13)
PROC: 05HN33Z Insertion of Infusion Device into Left Internal Jugular Vein, Percutaneous Approach (ICD-10-PCS; 2025-01-13)
PROC: 0DB80ZZ Excision of Small Intestine, Open Approach (ICD-10-PCS; principal; 2025-01-13 11:07)
PROC: 30233N1 Transfusion of Nonautologous Red Blood Cells into Peripheral Vein, Percutaneous Approach (ICD-10-PCS; 2025-01-14)
PROC: 30233R1 Transfusion of Nonautologous Platelets into Peripheral Vein, Percutaneous Approach (ICD-10-PCS; 2025-01-16)
PROC: 06HY33Z Insertion of Infusion Device into Lower Vein, Percutaneous Approach (ICD-10-PCS; 2025-01-26)
PROC: B54BZZA Ultrasonography of Right Lower Extremity Veins, Guidance (ICD-10-PCS; 2025-01-26)
PROC: 0W9G3ZZ Drainage of Peritoneal Cavity, Percutaneous Approach (ICD-10-PCS; 2025-01-31)
PROC: 0DB80ZZ Excision of Small Intestine, Open Approach (ICD-10-PCS; 2025-02-04)
PROC: 0DBA0ZZ Excision of Jejunum, Open Approach (ICD-10-PCS; 2025-02-04)
PROC: 0DN80ZZ Release Small Intestine, Open Approach (ICD-10-PCS; 2025-02-04)
PROC: 0D1B0ZB Bypass Ileum to Ileum, Open Approach (ICD-10-PCS; 2025-02-04)
PROC: 0D1A0ZA Bypass Jejunum to Jejunum, Open Approach (ICD-10-PCS; 2025-02-04)
PROC: 0BH18EZ Insertion of Endotracheal Airway into Trachea, Via Natural or Artificial Opening Endoscopic (ICD-10-PCS; 2025-02-25)
PROC: 5A1945Z Respiratory Ventilation, 24-96 Consecutive Hours (ICD-10-PCS; 2025-02-25)
PROC: 0D1B0Z4 Bypass Ileum to Cutaneous, Open Approach (ICD-10-PCS; 2025-02-25)
PROC: 02HV33Z Insertion of Infusion Device into Superior Vena Cava, Percutaneous Approach (ICD-10-PCS; 2025-03-02)
PROC: B548ZZA Ultrasonography of Superior Vena Cava, Guidance (ICD-10-PCS; 2025-03-02)
PROC: 0DN80ZZ Release Small Intestine, Open Approach (ICD-10-PCS; 2025-03-20)
PROC: 0DW807Z Revision of Autologous Tissue Substitute in Small Intestine, Open Approach (ICD-10-PCS; 2025-03-20)
PROC: 0DQ80ZZ Repair Small Intestine, Open Approach (ICD-10-PCS; 2025-03-20)
PROC: 5A0935A Assistance with Respiratory Ventilation, Less than 24 Consecutive Hours, High Flow/Velocity Cannula (ICD-10-PCS; 2025-04-02)
PROC: 5A0935A Assistance with Respiratory Ventilation, Less than 24 Consecutive Hours, High Flow/Velocity Cannula (ICD-10-PCS; 2025-04-03)
DX: A41.9 Sepsis, unspecified organism (principal); E43 Unspecified severe protein-calorie malnutrition; G93.41 Metabolic encephalopathy; J96.01 Acute respiratory failure with hypoxia; K63.1 Perforation of intestine (nontraumatic); N17.0 Acute kidney failure with tubular necrosis; R65.21 Severe sepsis with septic shock; K65.0 Generalized (acute) peritonitis; K72.00 Acute and subacute hepatic failure without coma; K65.1 Peritoneal abscess; J18.9 Pneumonia, unspecified organism; Z99.11 Dependence on respirator [ventilator] status; K55.9 Vascular disorder of intestine, unspecified; D75.829 Heparin-induced thrombocytopenia, unspecified; Z79.01 Long term (current) use of anticoagulants; T45.515A Adverse effect of anticoagulants, initial encounter; I50.32 Chronic diastolic (congestive) heart failure; I13.0 Hypertensive heart and chronic kidney disease with heart failure and stage 1 through stage 4 chronic kidney disease, or unspecified chronic kidney disease; E11.65 Type 2 diabetes mellitus with hyperglycemia; N18.9 Chronic kidney disease, unspecified; D50.0 Iron deficiency anemia secondary to blood loss (chronic); E03.9 Hypothyroidism, unspecified; E66.9 Obesity, unspecified; G31.9 Degenerative disease of nervous system, unspecified; I82.611 Acute embolism and thrombosis of superficial veins of right upper extremity; K63.2 Fistula of intestine; R18.8 Other ascites; E87.1 Hypo-osmolality and hyponatremia; J98.11 Atelectasis; E87.20 Acidosis, unspecified; E87.3 Alkalosis; I82.C11 Acute embolism and thrombosis of right internal jugular vein; T80.818A Extravasation of other vesicant agent, initial encounter; I48.20 Chronic atrial fibrillation, unspecified; K91.89 Other postprocedural complications and disorders of digestive system; I48.0 Paroxysmal atrial fibrillation; E11.22 Type 2 diabetes mellitus with diabetic chronic kidney disease; E78.1 Pure hyperglyceridemia; E83.39 Other disorders of phosphorus metabolism; E86.9 Volume depletion, unspecified; E87.5 Hyperkalemia; E87.6 Hypokalemia; E78.5 Hyperlipidemia, unspecified; E11.649 Type 2 diabetes mellitus with hypoglycemia without coma; D73.3 Abscess of spleen; E88.09 Other disorders of plasma-protein metabolism, not elsewhere classified; E83.51 Hypocalcemia; N73.6 Female pelvic peritoneal adhesions (postinfective); Z66 Do not resuscitate; K66.0 Peritoneal adhesions (postprocedural) (postinfection); Z82.61 Family history of arthritis; Z68.28 Body mass index [BMI] 28.0-28.9, adult; Z91.81 History of falling; Z91.148 Patient's other noncompliance with medication regimen for other reason
CPT/HCPCS: 10005; 36415; 36556; 36569; 36600; 70450; 71045; 74018; 74150; 74175; 74176; 74177; 74246; 74250; 74270; 76705; 76937; 76942; 77012; 78226; 80048; 80053; 80061; 80202; 81001; 82040; 82140; 82248; 82271; 82306; 82550; 82570; 82607; 82728; 82805; 82962; 83010; 83036; 83540; 83550; 83605; 83615; 83690; 83735; 83880; 84100; 84132; 84156; 84300; 84439; 84443; 84478; 84480; 85007; 85014; 85018; 85025; 85027; 85379; 85384; 85610; 85730; 86038; 86160; 86256; 86431; 86850; 86900; 86901; 86920; 87040; 87070; 87071; 87075; 87076; 87077; 87081; 87086; 87088; 87186; 87205; 92610; 93005; 93306; 93925; 93970; 94002; 94003; 94640; 97110; 97116; 97162; 97163; 97530; 99291; C1729; G0378; J0131; J0692; J0696; J1100; J1450; J1756; J1815; J1885; J1956; J2003; J2185; J2248; J2250; J2405; J2470; J2543; J2704; J3480; J3490; J7060; J7131; P9047